=== PATIENT | male | born 1955 | race Caucasian/White ===

== ENCOUNTER 2017-09-01 21:00 | Emergency (ER) | payer MEDICAID, SELFPAY ==
[2017-09-01 21:10] VITALS: BP 186/89; PULSE 79; RESP 18; TEMP 36.2; O2SAT 98; BMI 23.6
--- NOTE | 2017-09-01 22:10 | ED.DCSUM_ITS ---
- ER Visit Summary Date of Service: 09/01/17 Chief Complaint: Right ear decreased hearing History of Present Illness: The patient is a 61 M who states for the past week he has had decreased hearing in his right ear. Now he states he can barely hear anything at all. He thinks there may be some cerumen in his ear. Physical Examination: Afebrile vital signs are stable There is a large hard cerumen impaction Emergency Department Course and Treatment: Water irrigation was used to remove the impaction. Tympanic membrane was intact post removal. There is no erythema or swelling of the ear canal. Supportive care at home. He was advised on debrox Impression: \1. Cerumen impaction right ear 2. Impaction removal by physician This note was generated with [employer] dictation software. It may contain incorrect words, spelling, and punctuation that were not noted in review of the chart prior to signing ED Disposition - Plan for ED Patient: Disposition: Home or Assisted Living Chief Complaint: Ear Problem Instructions: ED Cerumen Impaction Treated Referrals: Vera Lucas MD [Primary Care Provider] - As Needed
[2017-09-01 22:17] VITALS: BP 138/59; PULSE 76; RESP 15; O2SAT 96
== END 2017-09-01 22:17 | disposition home or self-care (01) ==
LOC: ED 22:12
PROVIDERS: Emergency Provider Emergency Medicine; Family Provider Internal Medicine; PCP Internal Medicine
DX: H61.21 Impacted cerumen, right ear (principal)
CPT/HCPCS: 99282

== ENCOUNTER 2017-11-24 15:01 | Emergency (ER) | payer MEDICAID, SELFPAY ==
[2017-11-24 15:01] VITALS: BP 154/90; PULSE 75; RESP 14; TEMP 36.8; O2SAT 98; BMI 24.9
--- NOTE | 2017-11-24 15:05 | RAD_ITS ---
STUDY: X-RAY - LEFT FOOT CLINICAL: Male, 61 years old. Pain at the first metatarsophalangeal joint. TECHNIQUE: 3 view(s) of the foot. COMPARISON: None. FINDINGS: Small plantar spur. Normal visualized subtalar, talonavicular, calcaneocuboid, tarsal and tarsometatarsal articulations. Normal metatarsi. Normal metatarsophalangeal joint of the great toe. Normal tibial and fibular sesamoid bones. Normal interphalangeal joint of the great toe. Normal phalanges of the great toe. Normal second through fifth metatarsophalangeal joints. Normal interphalangeal joints and phalanges of the lesser toes. Vascular calcification. RAD/Foot min 3 Views IMPRESSION: Small plantar spur. Vascular calcification. Electronically Signed: Joseph Denton MD at 15:43 EDT Tel [phone], Service support ,
[2017-11-24 15:51] LABS: Bedside Glucose 310 mg/dL (70-110)
--- NOTE | 2017-11-24 16:12 | ED.DCSUM_ITS ---
- ER Visit Summary Date of Service: 11/24/17 Chief Complaint: Left great toe pain History of Present Illness: The patient is a 61 M increasing left toe pain since yesterday. No trauma. History diabetes. No drainage. No fevers. No history of similar. Has not looked at his foot since the pain. Does not see podiatry. Physical Examination: General: Alert and oriented ?3, no acute distress HEENT: Normocephalic, atraumatic. Moist mucosa membranes Neck: supple, nontender. Cardiovascular: Regular rate and rhythm, no murmurs Respiratory: Normal breath sounds, symmetric, no distress Abdomen: Soft, nontender, nondistended Extremities: no edema, pulses intact ?4. Left lower extremity: Foot with no erythema. There is chronic fungus to all 5 toes, left great toe being thickened with valgus deviation. There is no erythema or drainage. Right lower extremity: Foot with no erythema. Similar chronic fungal toes. Decreased thickening of the great toe, nontender to palpation. No drainage. Neuro: no focal neurological deficits. Test Results: Left foot x-ray: Small bony spur. No fracture dislocation. BGT: 310 Emergency Department Course and Treatment: Nursing protocol obtain x-rays notes small spur. BG T3 10. Patient insulin-dependent diabetic for years. No nausea or vomiting. Exam of the foot concerns for fungal toes with thickening great toe could be causing symptoms. There is no signs of infection. Due to being diabetic, I will refer him to podiatry for outpatient evaluation and management. He is given Tylenol for symptom control. Treatment Plan: [] Disposition: Discharge Impression: 1.Onychomycosis of toes 2. Elevated blood glucose with history of diabetes This note was generated with [employer] dictation software. It may contain incorrect words, spelling, and punctuation that were not noted in review of the chart prior to signing ED Disposition - Plan for ED Patient: Disposition: Home or Assisted Living Chief Complaint: Lower Extremity Injury Diagnosis: Onychomycosis of left great toe Instructions: Understanding Thickened Nails Referrals: Vera Lucas MD [Primary Care Provider] - Robin Jackson DPM [STAFF PHYSICIAN] - 3-5 Days
== END 2017-11-24 17:00 | disposition home or self-care (01) ==
LOC: ED 16:20
PROVIDERS: Emergency Provider Emergency Medicine; Family Provider Internal Medicine; PCP Internal Medicine
DX: B35.1 Tinea unguium (principal); E10.65 Type 1 diabetes mellitus with hyperglycemia; M77.32 Calcaneal spur, left foot; Z79.82 Long term (current) use of aspirin; Z79.4 Long term (current) use of insulin; Z79.899 Other long term (current) drug therapy
CPT/HCPCS: 73630; 82962; 99281

== ENCOUNTER 2017-12-25 21:46 | Emergency (ER) | payer MEDICAID, SELFPAY ==
[2017-12-25 21:46] VITALS: BP 157/73; PULSE 73; RESP 16; TEMP 36.8; O2SAT 97; BMI 24.5
[2017-12-25 21:55] LABS: Bedside Glucose 216 mg/dL (70-110)
[2017-12-25 22:00] VITALS: O2SAT 100
--- NOTE | 2017-12-25 22:00 | EKG12_ITS ---
Test Reason : Blood Pressure : / mmHG Vent. Rate : 067 BPM Atrial Rate : 067 BPM P-R Int : 198 ms QRS Dur : 098 ms QT Int : 450 ms P-R-T Axes : 028 -19 008 degrees QTc Int : 475 ms Normal sinus rhythm Voltage criteria for left ventricular hypertrophy Abnormal ECG Confirmed by ANNALISA VILLA, NINI ([id number]), online editor DENNIS STOKES ([id number]) on 12/29/2017 10:26:19 AM Referred By: EVER Confirmed By:NINI FANG MD
--- NOTE | 2017-12-25 22:00 | RAD_ITS ---
STUDY: X-RAY CHEST REASON FOR EXAM: Male, 62 years old. Weakness and dizziness TECHNIQUE: A single frontal view of the chest was obtained. COMPARISON: June 23, 2017 FINDINGS: The lungs are adequately aerated. There are no focal airspace opacities. There is no demonstrated pleural abnormality. The cardiac silhouette is normal in size. The mediastinum and hilar regions are unremarkable. Normal visualized pulmonary arteries. Normal visualized aortic arch and descending thoracic aorta. There are diffuse degenerative changes of the visualized spine. The visualized ribs, clavicles, and shoulders are unremarkable. There is no demonstrated abnormality of the visualized upper abdomen. RAD/Chest 1 View (Portable) IMPRESSION: No acute cardiopulmonary abnormalities or changes. Electronically Signed: Santa Macario MD at 22:46 EDT Tel Direct: [phone], Service support ,
--- NOTE | 2017-12-25 22:05 | ED.RN ---
patient states he has chest pain and sob earlier today but does not have chest pain currently.
[2017-12-25 22:09] LABS: Absolute Lymphocyte Count 2.39 X10^3/ul (0.83-4.51); Absolute Neutrophil Count 6.7 X10^3/uL (2.0-7.7); Basophil# 0.03 X10^3/uL; Basophil% 0.3 % (0-1); Eosinophil# 0.15 X10^3/uL; Eosinophils% 1.5 % (0-5); Hematocrit 34.4 % (40-54); Hemoglobin 12.3 g/dl (13.0-16.5); Lymphocyte # 2.39 X10^3/ul (4.0); Lymphocyte % 23.2 % (19-41); Mean Corp Hgb Conc 35.8 g/gl (32-36); Mean Corpuscular Hgb 28.7 pg (27.0-32.0); Mean Corpuscular Volume 80.4 fL (80-94); Mean Platelet Vol. 9.9 fl (6.2-12.0); Monocyte# 0.91 X10^3/uL; Monocyte% 8.8 % (0-10); Neutrophil # 6.72 X10^3/uL (2.7-7.7); Neutrophil % 65.1 % (47-70); Platelet Count 250 K/mm3 (150-450); RBC Distribution Width CV 13.1 % (11.6-14.6); RBC Distribution Width SD 36.7 fl (35.1-43.9); Red Blood Count 4.28 M/mm3 (4.6-6.2); White Blood Count 10.3 K/mm3 (4.4-11.0)
[2017-12-25 22:13] LABS: POSITIVE COUNT NO; POSITIVE DIFFERENTIAL NO; POSITIVE MORPHOLOGY NO
[2017-12-25] MEDS: Aspirin 81 MG TAB.CHEW 324 MG PO (22:14)
[2017-12-25 22:15] VITALS: BP 160/78; BP 162/70; BP 174/78; PULSE 69; PULSE 71; PULSE 79
[2017-12-25] MEDS: 0.9% Normal Saline 1,000 ML 999 ML IV (22:19)
[2017-12-25 22:28] LABS: Anion Gap 8 (5-15); BUN 34 mg/dL (7-18); BUN/Creat Ratio 23.6 RATIO (10-20); Calcium,Total 9.5 mg/dL (8.5-10.1); Chloride 102 mmol/L (98-107); Creatinine, Serum 1.44 mg/dL (0.70-1.30); EST Glomerular Filtration Rate 53 mL/min (>60); Est Glom Filt Rate - Afr Amer 64 mL/min (>60); Estimated Creatinine Clearance 54.55 ml/min; Glucose 213 mg/dL (74-106); Potassium 4.1 mmol/L (3.5-5.1); Sodium Level 139 mmol/L (136-145)
--- NOTE | 2017-12-25 22:37 | ED.DCSUM_ITS ---
- ER Visit Summary Date of Service: 12/25/17 Chief Complaint: I do not feel good History of Present Illness: The patient is a 62 M who presents with chief complaint of I do not feel good. He states that earlier today he felt dizzy and lightheaded as if he may pass out. He also complains of just generally not feeling well. Earlier today he had an episode of left-sided chest pain and shortness of breath that lasted about 20 minutes. This was sharp. He denies any nausea vomiting fever cough. He denies recent illness. He states he felt well before today. No history of prior similar symptoms. No history of coronary disease. Physical Examination: Afebrile vitals stable Moist mucous membranes Heart regular rate and rhythm Lungs are clear Abdomen soft Extremities nontender, 2+ radial pulses Alert Test Results: EKG shows normal sinus rhythm at a rate of 70. Laboratory studies notable for hemoglobin 12.3, creatinine 1.44. Orthostatic vital signs negative. Troponin negative. Chest x-ray on my review shows no acute process. Emergency Department Course and Treatment: Patient's MARGARET score is 2, patient's heart score is 4. I am concerned given his episode of chest pain and shortness of breath with multiple cardiac risk factors. I did feel that he should be admitted for observation, repeat EKG is serial enzymes and likely stress testing. Treatment Plan: [] Disposition: Admit Impression: Chest pain This note was generated with [employer] dictation software. It may contain incorrect words, spelling, and punctuation that were not noted in review of the chart prior to signing ED Disposition - Plan for ED Patient: Chief Complaint: General Illness Referrals: Vera Lucas MD [Primary Care Provider] -
[2017-12-25 22:38] VITALS: BP 164/70; PULSE 69; RESP 18; TEMP 36.8; O2SAT 98
--- NOTE | 2017-12-25 23:00 | EKG12_ITS ---
Test Reason : Blood Pressure : / mmHG Vent. Rate : 070 BPM Atrial Rate : 070 BPM P-R Int : 184 ms QRS Dur : 092 ms QT Int : 424 ms P-R-T Axes : 042 -15 025 degrees QTc Int : 457 ms Normal sinus rhythm Voltage criteria for left ventricular hypertrophy Abnormal ECG Confirmed by ANNALISA VILLA, NINI ([id number]), supervising editor news reel DENNIS STOKES ([id number]) on 12/29/2017 10:26:34 AM Referred By: AILYN Confirmed By:NINI FANG MD
--- NOTE | 2017-12-25 23:19 | ED.DEP ---
ED Disposition - Plan for ED Patient: Chief Complaint: General Illness Instructions: ED Chest Pain Atypical Unkn Cause, ED Dehydration Referrals: Vera Lucas MD [Primary Care Provider] -
[2017-12-26 00:08] VITALS: BP 172/78; PULSE 67; RESP 16; O2SAT 100
[2017-12-26 00:42] VITALS: BP 152/71; PULSE 71; RESP 16; O2SAT 100
== END 2017-12-26 00:46 | disposition home or self-care (01) ==
PROVIDERS: Emergency Medicine; Emergency Provider Emergency Medicine; Family Provider Internal Medicine; PCP Internal Medicine
DX: R07.9 Chest pain, unspecified (principal); R06.00 Dyspnea, unspecified; R55 Syncope and collapse; I10 Essential (primary) hypertension; E11.9 Type 2 diabetes mellitus without complications; Z79.82 Long term (current) use of aspirin; Z79.4 Long term (current) use of insulin; Z79.899 Other long term (current) drug therapy
CPT/HCPCS: 71045; 80048; 82962; 84484; 85025; 93005; 96360; 99285; J7030; A4216

== ENCOUNTER 2018-01-10 14:56 | Emergency (ER) | payer MEDICAID, SELFPAY ==
--- NOTE | 2018-01-10 14:56 | DT_ITS ---
This patient was seen during an EMR downtime January 08, 2018 - January 15, 2018. This patient may have a combination of paper and electronic documentation or all paper documentation. All documentation is viewable within the e-chart portion of [facility] for each patient visit.
--- NOTE | 2018-01-10 16:03 | CT_ITS ---
STUDY: CT ABDOMEN AND PELVIS WITHOUT CONTRAST REASON FOR EXAM: Male, 62 years old. Mid abdominal pain. RADIATION DOSAGE (If Supplied By Facility): CTDIvol = ( 9.12 ) mGy, DLP = ( 487.56 ) mGycm TECHNIQUE: Transaxial images were obtained from the dome of the diaphragm to the symphysis pubis without oral contrast, and without intravenous contrast. Sagittal and coronal images were reconstructed. Individualized dose optimization techniques were used for this CT. COMPARISON: CT of the abdomen and pelvis dated May 11, 2017. FINDINGS: There is mild bilateral basilar dependent atelectasis. There is mild elevation of left hemidiaphragm. No pleural effusions are visualized. The visualized portions of the heart are within normal limits. Normal liver. Normal gallbladder and extrahepatic biliary system. Normal spleen. There is diffuse atrophy of the pancreas. Normal bilateral adrenal glands. Normal right kidney. There is a small cyst arising from lower pole left kidney measuring 2.2 cm in greatest dimension. This has attenuation of approximately 10.9 Hounsfield units. There are are parenchymal calcifications in the lower pole left kidney measuring about 2 mm in size. Left kidney has a normal appearance otherwise without evidence for hydronephrosis, hydroureter or radiopaque ureteral calculus. Normal visualized stomach. There is no evidence for dilated bowel, ascites or pneumoperitoneum. Small bowel has a grossly normal unenhanced appearance. Stool is visible throughout the colon with scattered colonic diverticula. There is non-visualization of the appendix. There is diffuse atherosclerotic calcification of the abdominal aorta, without a demonstrated aneurysm. Normal inferior vena cava. Normal retroperitoneum. Urinary bladder wall is abnormally thickened measuring approximately 7.3 mm in greatest dimension. Normal visualized prostate gland. Normal abdominal wall. Normal osseous structures. CT/Abdomen/Pelvis without Cont IMPRESSION: 1. No CT evidence of acute intra-abdominal disease. 2. Left-sided renal cyst and nonobstructing calculi. Electronically Signed: Christine Huang MD at 6:30 EDT , Service support ,
[2018-01-13 08:10] LABS: AST(SGOT) 15 U/L (15-37); Albumin, Serum 3.6 g/dL (3.2-5.0); BUN 40 mg/dL (7-18); BUN/Creat Ratio 34.2 RATIO (10-20); Calcium,Total 8.5 mg/dL (8.5-10.1); Creatinine, Serum 1.17 mg/dL (0.70-1.30); EST Glomerular Filtration Rate 68 mL/min (>60); Est Glom Filt Rate - Afr Amer 82 mL/min (>60); Globulin 3.5 g/dL (2.2-4.2); Glucose 327 mg/dL (74-106); Lipase 101 U/L (73-393); Protein, Total 7.1 g/dL (6.4-8.2)
[2018-01-13 08:11] LABS: Alanine Aminotransfer ALT/SGPT 31 U/L (16-61); Alkaline Phosphatase 123 U/L (45-117); Anion Gap 9 (5-15); Bilirubin, Direct 0.13 mg/dL (0.00-0.30); Chloride 102 mmol/L (98-107); Potassium 4.4 mmol/L (3.5-5.1); Sodium Level 140 mmol/L (136-145)
[2018-01-13 09:53] LABS: Hematocrit 37.6 % (40-54); Mean Corp Hgb Conc 34.6 g/gl (32-36); Mean Corpuscular Hgb 28.3 pg (27.0-32.0); Mean Corpuscular Volume 81.7 fL (80-94); White Blood Count 7.1 K/mm3 (4.4-11.0)
[2018-01-13 09:54] LABS: Basophil% 0.1 % (0-1); Differential Indicated SCAN CRITERIA MET; Eosinophils% 0.7 % (0-5); Mean Platelet Vol. 9.8 fl (6.2-12.0); Monocyte% 4.6 % (0-10); Neutrophil % 87.2 % (47-70); POSITIVE COUNT NO; POSITIVE DIFFERENTIAL YES; POSITIVE MORPHOLOGY NO; Platelet Count 208 K/mm3 (150-450); RBC Distribution Width CV 13.4 % (11.6-14.6); RBC Distribution Width SD 39.8 fl (35.1-43.9)
[2018-01-13 09:55] LABS: Absolute Neutrophil Count 6.2 X10^3/uL (2.0-7.7); Basophil# 0.01 X10^3/uL; Eosinophil# 0.05 X10^3/uL; Monocyte# 0.33 X10^3/uL; Neutrophil # 6.22 X10^3/uL (2.7-7.7)
[2018-01-13 09:56] LABS: Differential Comment SCAN
== END 2018-01-10 19:55 | disposition home or self-care (01) ==
LOC: ED 01-11 14:35
PROVIDERS: Emergency Provider Emergency Medicine; Family Provider Internal Medicine; PCP Internal Medicine
DX: R11.2 Nausea with vomiting, unspecified (principal); R10.9 Unspecified abdominal pain; E11.22 Type 2 diabetes mellitus with diabetic chronic kidney disease; N18.9 Chronic kidney disease, unspecified; Z79.84 Long term (current) use of oral hypoglycemic drugs
CPT/HCPCS: 74176; 80048; 80076; 83690; 85025; 96361; 96374; 99283; J7040; A4216; J2405

== ENCOUNTER 2018-03-17 19:30 | Emergency (ER) | payer MEDICAID, SELFPAY ==
[2018-03-17 19:30] VITALS: BP 174/87; PULSE 76; RESP 18; TEMP 37; O2SAT 97; BMI 25.7
--- NOTE | 2018-03-17 19:41 | ED.VISSUMM ---
- ER Visit Summary Date of Service: 03/17/18 Chief Complaint: Dental pain History of Present Illness: The patient is a 62 M with right upper dental pain that started earlier today. Is currently weekend and he was unable to call his dentist. He states the tooth is broken and became painful today. Physical Examination: Vital signs significant for blood pressure 174/87, otherwise normal. Patient sitting upright in bed no acute distress. Head neck examination was no facial edema or erythema. TMs are clear bilaterally. Intraoral examination reveals right maxillary second premolar to be broken and tender to palpation. There is minimal surrounding gum edema. There is no trismus. There is no submandibular fullness. There is no cervical lymphadenopathy. Heart is regular rate and rhythm without murmur. Test Results: [] Emergency Department Course and Treatment: Patient is treated with Pen-Vee K and Tylenol. He declines anything stronger for pain. He will try to call his dentist on Monday. He is given a dental referral list if that dentist is no longer available. Treatment Plan: [] Disposition: Discharge Impression: Odontalgia This note was generated with [employer] dictation software. It may contain incorrect words, spelling, and punctuation that were not noted in review of the chart prior to signing ED Disposition - Plan for ED Patient: Chief Complaint: Dental Referrals: Vrea Lucas MD [Primary Care Provider] -
--- NOTE | 2018-03-17 19:43 | ED.DEP ---
ED Disposition - Plan for ED Patient: Disposition: Home or Assisted Living Chief Complaint: Dental Instructions: ED Tooth Pain Prescriptions: Penicillin V Potassium 500 mg PO 4X/DAY #40 tablet Additional Instructions: Call your dentist on Monday for appointment.
[2018-03-17] MEDS: Penicillin Vk 250 MG Tablet 500 MG PO (19:56)
[2018-03-17] MEDS: Acetaminophen 325 MG Tablet 650 MG PO (19:56)
== END 2018-03-17 20:00 | disposition home or self-care (01) ==
LOC: ED 19:47
PROVIDERS: Emergency Provider Emergency Medicine; Family Provider Internal Medicine; PCP Internal Medicine
DX: K08.89 Other specified disorders of teeth and supporting structures (principal); S02.5XXA Fracture of tooth (traumatic), initial encounter for closed fracture; X58.XXXA Exposure to other specified factors, initial encounter; Y93.9 Activity, unspecified; Y92.9 Unspecified place or not applicable; Y99.9 Unspecified external cause status; E11.9 Type 2 diabetes mellitus without complications; I10 Essential (primary) hypertension; Z79.82 Long term (current) use of aspirin; Z79.4 Long term (current) use of insulin; Z79.899 Other long term (current) drug therapy; Z87.891 Personal history of nicotine dependence
CPT/HCPCS: 99283

== ENCOUNTER 2018-05-06 12:03 | Emergency (ER) | payer MEDICAID, SELFPAY ==
[2018-05-06 12:04] VITALS: BP 199/97; PULSE 87; RESP 19; TEMP 37.1; O2SAT 98; BMI 24.3
--- NOTE | 2018-05-06 12:14 | EKG12_ITS ---
Test Reason : GENERAL ILLNESS Blood Pressure : / mmHG Vent. Rate : 080 BPM Atrial Rate : 080 BPM P-R Int : 184 ms QRS Dur : 092 ms QT Int : 402 ms P-R-T Axes : 034 -20 027 degrees QTc Int : 463 ms Normal sinus rhythm Voltage criteria for left ventricular hypertrophy Nonspecific T wave abnormality Prolonged QT Abnormal ECG Confirmed by BOUCHRA VILLA, FESTUS ([id number]), editor at large DENNIS STOKES ([id number]) on 05/08/2018 2:45:00 PM Referred By: ALPA Confirmed By:FESTUS SHOOK MD
--- NOTE | 2018-05-06 12:15 | ED.VISSUMM ---
- ER Visit Summary Date of Service: 05/06/18 Chief Complaint: I just do not feel right History of Present Illness: The patient is a 62 M with a history of type 1 insulin-dependent diabetes. States that he does not feel right after getting his flu shot yesterday. He has mild nausea. Denies vomiting or diarrhea. No fever. No headache, chest pain, shortness of breath or abdominal pain. No dysuria. No melena. Physical Examination: Middle-aged male no acute distress. Vital signs are stable and afebrile. His initial blood pressure is 199/97. Afebrile with a pulse ox of 90% on room air no hypoxia. HEENT exam atraumatic. Pupils round reactive light. No facial droop. Normal speech. Neck nontender. No lymphadenopathy. Lungs clear to auscultation bilaterally. Heart regular rhythm no murmur rate about 90. Abdomen soft and nontender. Normal bowel sounds no peritoneal signs. Both the right upper right lower quadrants are unremarkable. He is moving all 4 extremities. They are neurovascularly intact. Normal victims advocate clerk/specialist strength bilaterally. Normal dorsi and plantar flexion. Nontender. No edema. Neurologically is awake and alert with no focal motor deficits. Back nontender. Skin unremarkable. Test Results: EKG shows sinus rhythm rate 80 with no acute. CBC showed a white count of 6.8. Hemoglobin of 12. No bands. Electrolytes unremarkable. Gap of 6. Creatinine is 0.8. Glucose of 153. Emergency Department Course and Treatment: I suspect the patient's symptoms may be secondary to malaise after his flu shot yesterday. Due to his diabetes I will do screening labs and EKG. His exam is unremarkable. Treatment Plan: Repeat exam the patient is doing well at 0 115. States he is feeling better. When I discussed the people often have malaise after having influenza immunization. But otherwise his exam is normal. Disposition: Discharge Impression: Malaise status post influenza immunization History of insulin-dependent diabetes This note was generated with [employer] dictation software. It may contain incorrect words, spelling, and punctuation that were not noted in review of the chart prior to signing ED Disposition - Plan for ED Patient: Chief Complaint: General Illness Referrals: Vera Lucas MD [Primary Care Provider] -
--- NOTE | 2018-05-06 12:18 | ED.DCSUM_ITS ---
- ER Visit Summary Date of Service: 05/06/18 Chief Complaint: I just do not feel right History of Present Illness: The patient is a 62 M with a history of type 1 insulin-dependent diabetes. States that he does not feel right after getting his flu shot yesterday. He has mild nausea. Denies vomiting or diarrhea. No fever. No headache, chest pain, shortness of breath or abdominal pain. No dysuria. No melena. Physical Examination: Middle-aged male no acute distress. Vital signs are stable and afebrile. His initial blood pressure is 199/97. Afebrile with a pulse ox of 90% on room air no hypoxia. HEENT exam atraumatic. Pupils round reactive light. No facial droop. Normal speech. Neck nontender. No lymphadenopathy. Lungs clear to auscultation bilaterally. Heart regular rhythm no murmur rate about 90. Abdomen soft and nontender. Normal bowel sounds no peritoneal signs. Both the right upper right lower quadrants are unremarkable. He is moving all 4 extremities. They are neurovascularly intact. Normal chief controller center strength bilaterally. Normal dorsi and plantar flexion. Nontender. No edema. Neurologically is awake and alert with no focal motor deficits. Back nontender. Skin unremarkable. Test Results: EKG shows sinus rhythm rate 80 with no acute. CBC showed a white count of 6.8. Hemoglobin of 12. No bands. Electrolytes unremarkable. Gap of 6. Creatinine is 0.8. Glucose of 153. Emergency Department Course and Treatment: I suspect the patient's symptoms may be secondary to malaise after his flu shot yesterday. Due to his diabetes I will do screening labs and EKG. His exam is unremarkable. Treatment Plan: Repeat exam the patient is doing well at 0 115. States he is feeling better. When I discussed the people often have malaise after having influenza immunization. But otherwise his exam is normal. Disposition: Discharge Impression: Malaise status post influenza immunization History of insulin-dependent diabetes This note was generated with [employer] dictation software. It may contain incorrect words, spelling, and punctuation that were not noted in review of the chart prior to signing ED Disposition - Plan for ED Patient: Chief Complaint: General Illness Referrals: Vera Lucas MD [Primary Care Provider] -
[2018-05-06 12:30] LABS: Absolute Lymphocyte Count 1.29 X10^3/ul (0.83-4.51); Absolute Neutrophil Count 4.8 X10^3/uL (2.0-7.7); Basophil# 0.01 X10^3/uL; Basophil% 0.1 % (0-1); Eosinophil# 0.12 X10^3/uL; Eosinophils% 1.8 % (0-5); Hematocrit 36.2 % (40-54); Hemoglobin 12.4 g/dl (13.0-16.5); Lymphocyte # 1.29 X10^3/ul (4.0); Mean Corp Hgb Conc 34.3 g/gl (32-36); Mean Corpuscular Hgb 27.9 pg (27.0-32.0); Mean Corpuscular Volume 81.3 fL (80-94); Mean Platelet Vol. 9.1 fl (6.2-12.0); Monocyte# 0.56 X10^3/uL; Monocyte% 8.3 % (0-10); Neutrophil # 4.79 X10^3/uL (2.7-7.7); Neutrophil % 70.7 % (47-70); POSITIVE COUNT NO; POSITIVE DIFFERENTIAL NO; POSITIVE MORPHOLOGY NO; Platelet Count 183 K/mm3 (150-450); RBC Distribution Width SD 38.4 fl (35.1-43.9); Red Blood Count 4.45 M/mm3 (4.6-6.2); White Blood Count 6.8 K/mm3 (4.4-11.0)
[2018-05-06 12:42] LABS: Anion Gap 6 (5-15); BUN 15 mg/dL (7-18); BUN/Creat Ratio 18.1 RATIO (10-20); Calcium,Total 8.7 mg/dL (8.5-10.1); Chloride 111 mmol/L (98-107); Creatinine, Serum 0.83 mg/dL (0.70-1.30); EST Glomerular Filtration Rate 101 mL/min (>60); Est Glom Filt Rate - Afr Amer 122 mL/min (>60); Estimated Creatinine Clearance 94.65 ml/min; Glucose 153 mg/dL (74-106); Potassium 3.8 mmol/L (3.5-5.1); Sodium Level 142 mmol/L (136-145)
[2018-05-06 13:04] VITALS: PULSE 81; RESP 16; O2SAT 99
--- NOTE | 2018-05-06 13:19 | ED.DEP ---
ED Disposition - Plan for ED Patient: Disposition: Home or Assisted Living Chief Complaint: General Illness Referrals: Vera Lucas MD [Primary Care Provider] - 1 Week if not improving Additional Instructions: He started start feeling better in the next 2-3 days. Often people have these type of symptoms after having flu immunization. Plan fluids and rest. Tylenol as needed.
[2018-05-06 13:24] VITALS: BP 175/83; PULSE 76; RESP 18; O2SAT 99
== END 2018-05-06 13:25 | disposition home or self-care (01) ==
PROVIDERS: Emergency Provider Emergency Medicine; Family Provider Internal Medicine; PCP Internal Medicine
DX: T88.1XXA Other complications following immunization, not elsewhere classified, initial encounter (principal); R53.81 Other malaise; R11.0 Nausea; E10.9 Type 1 diabetes mellitus without complications; Z79.82 Long term (current) use of aspirin; Z79.4 Long term (current) use of insulin; Z79.899 Other long term (current) drug therapy; Z87.442 Personal history of urinary calculi
CPT/HCPCS: 80048; 85025; 93005; 99284; A4216

== ENCOUNTER 2018-08-18 13:44 | Emergency (ER) | payer MEDICAID, SELFPAY ==
[2018-08-18 13:46] VITALS: BP 167/84; PULSE 71; RESP 18; TEMP 37.1; O2SAT 99; BMI 25.1
--- NOTE | 2018-08-18 14:11 | ED.VISSUMM ---
- ER Visit Summary Date of Service: 08/18/18 Chief Complaint: Right ear hearing loss History of Present Illness: The patient is a 62 M. Right ear for the past 3 days. No trauma. No drainage. He does admit to ringing. States has yearly symptoms. Does not use Q-tips. Has not seen a specialist. History of diabetes. Denies pain. Physical Examination: General: Alert and oriented ?3, no acute distress HEENT: Normocephalic, atraumatic. Moist mucosa membranes. Bilateral cerumen impaction. No swelling or drainage. No tragal tenderness bilaterally. Neck: supple, nontender. Cardiovascular: Regular rate and rhythm, no murmurs Respiratory: Normal breath sounds, symmetric, no distress Abdomen: Soft, nontender, nondistended Extremities: Nontender, no edema, pulses intact ?4 Neuro: no focal neurological deficits. Test Results: [] Emergency Department Course and Treatment: Patient with bilateral cerumen impaction. Discussed likely causing his hearing loss, he has symptoms yearly. Is not seeing a specialist. Discussed risks and flushing the ED with membrane rupture. He understands and wishes to pursue. Debrox ordered with flushing by nursing. After flushing evaluation both ears, TMs were intact. He did have improved hearing. With current symptoms yearly, he will be given follow-up with ENT for outpatient reevaluation. Treatment Plan: [] Disposition: Discharge Impression: 1. Bilateral cerumen impaction 2. Right hearing loss This note was generated with [employer] dictation software. It may contain incorrect words, spelling, and punctuation that were not noted in review of the chart prior to signing ED Disposition - Plan for ED Patient: Disposition: Home or Assisted Living Chief Complaint: Ear Problem Diagnosis: Bilateral impacted cerumen, Right-sided hearing loss Instructions: ED Cerumen Impaction Treated, Understanding Hearing Loss Referrals: Vera Lucas MD [Primary Care Provider] - David Ontiveros MD [STAFF PHYSICIAN] - 5-7 Days
[2018-08-18] MEDS: Carbamide Peroxide 15 ML Bottle 5 DRP OTIC (14:27)
[2018-08-18 15:15] VITALS: BP 175/79; PULSE 71; RESP 16; O2SAT 94
== END 2018-08-18 15:30 | disposition home or self-care (01) ==
PROVIDERS: Emergency Provider Emergency Medicine; Family Provider Internal Medicine; PCP Internal Medicine
DX: H61.23 Impacted cerumen, bilateral (principal); E11.9 Type 2 diabetes mellitus without complications; Z79.82 Long term (current) use of aspirin; Z79.4 Long term (current) use of insulin; Z79.899 Other long term (current) drug therapy
CPT/HCPCS: 99283

== ENCOUNTER 2018-09-04 16:22 | Emergency (ER) | payer MEDICAID, SELFPAY ==
[2018-09-04 16:23] VITALS: BP 199/97; PULSE 79; RESP 16; TEMP 36.6; O2SAT 98; BMI 25.4
--- NOTE | 2018-09-04 16:45 | RAD_ITS ---
STUDY: X-RAY - RIGHT HUMERUS REASON FOR EXAM: Male, 62 years old. Fall on ice, pain. TECHNIQUE: 3 view(s) of the humerus. COMPARISON: None. FINDINGS: Hemithoracic structures within the field of view appear intact. Shoulder girdle appears intact. Humerus intact. The elbow joint appears intact without effusion. Soft tissues unremarkable. RAD/Humerus min 2 Views IMPRESSION: Normal x-ray examination of the humerus. Electronically Signed: Danny Salas MD at 17:07 EST Tel , Service support ,
--- NOTE | 2018-09-04 17:21 | CT_ITS ---
STUDY: CT BRAIN WITHOUT CONTRAST REASON FOR EXAM: Male, 62 years old. Fall. Hit right side of head. RADIATION DOSAGE (If Supplied By Facility): CTDIvol = ( 44.99 ) mGy, DLP = ( 796.11 ) mGycm TECHNIQUE: Transaxial CT imaging of the brain was performed without administration of intravenous contrast material. Individualized dose optimization techniques were used for this CT. COMPARISON: 07/09/2016 FINDINGS: There are stable bilateral subcentimeter lacunar infarcts in the basal ganglia and thalami. There is no acute bleed or infarct. There are stable chronic ischemic and atrophic changes. The ventricles are normal in configuration. There is no hydrocephalus. The visualized paranasal sinuses are clear. The mastoid air cells are well aerated. There is no skull fracture. CT/Brain/Head without Contrast IMPRESSION: Stable old bilateral subcentimeter lacunar infarcts in the basal ganglia and thalami. Stable chronic ischemic and atrophic changes. No acute intracranial abnormality. Electronically Signed: Chon Dixon, at 18:23 EST Tel , Service support ,
[2018-09-04 17:23] VITALS: BP 188/85; PULSE 75; RESP 17; O2SAT 98
--- NOTE | 2018-09-04 17:24 | ED.DCSUM_ITS ---
- ER Visit Summary Date of Service: 09/04/18 Chief Complaint: [Fall] History of Present Illness: The patient is a 62 M presents to the emergency department after mechanical fall. Patient states he was walking outdoors. He slipped on ice. He fell, landing on his right shoulder and struck his head. He thinks he lost consciousness. He states that since then, he had increasing pain in the right shoulder. He is not on anticoagulants. The patient is an insulin-dependent diabetic. He denies any fevers, chills, or other systemic symptoms. He denies any change in gait. He has had not had chest pain or shortness of breath. Physical Examination: Vital signs reviewed General: Well-nourished, well-developed Head: Normocephalic, atraumatic Eyes: Pupils equal and reactive, extraocular muscles intact Neck, supple, no lymphadenopathy Heart: Regular rate and rhythm Respiratory: No distress, clear bilaterally Abdomen: Soft, nontender, nondistended, no peritoneal signs Back: Nontender Extremities: Tender over the right shoulder with limited range of motion secondary to pain. No gross laxity. Normal pulses. no edema, no cords Skin: Normal color no rash Neuro: Alert and oriented, no focal or lateralizing deficits Test Results: [] Emergency Department Course and Treatment: The patient presents after mechanical fall. He did strike his head and thinks he may have lost consciousness. I did obtain a head CT which was unremarkable. Patient also landed on his right shoulder. Triage had a obtained a humerus x-ray which is normal. I did obtain right shoulder x-rays were also normal. Patient given Tylenol with improvement of symptoms. Be placed in a sling for comfort. He was counseled to take his arm out and work on his range of motion. He will be discharged home. Treatment Plan: [] Disposition: Discharge Impression: 1. Mechanical fall on ice 2. Concussion 3. Right shoulder contusion This note was generated with [employer] dictation software. It may contain incorrect words, spelling, and punctuation that were not noted in review of the chart prior to signing ED Disposition - Plan for ED Patient: Chief Complaint: Fall Instructions: ED Concussion, ED Sprain Shoulder Referrals: Vera Lucas MD [Primary Care Provider] -
[2018-09-04] MEDS: Acetaminophen 500 MG Tablet 1000 MG PO (17:25)
--- NOTE | 2018-09-04 17:29 | RAD_ITS ---
STUDY: X-RAY - RIGHT SHOULDER REASON FOR EXAM: Male, 62 years old. Fall, right posterior shoulder pain. TECHNIQUE: 4 view(s) of the shoulder. COMPARISON: None. FINDINGS: Mild chronic acromioclavicular joint arthrosis. Intact clavicle. Normal glenohumeral articulation. Proximal humerus intact. Scapula intact. Evaluated portions of the thoracic cage appear intact. Right lung clear. RAD/Shoulder min 2 Views IMPRESSION: No radiographic evidence of acute injury. Electronically Signed: Danny Salas MD at 17:45 EST Tel , Service support ,
[2018-09-04 18:25] VITALS: BP 175/81; PULSE 73; RESP 15; O2SAT 96
[2018-09-04 18:40] VITALS: BP 175/81; PULSE 76; RESP 15; O2SAT 97
--- NOTE | 2018-09-04 18:40 | ED.RN ---
PT GIVEN WRITTEN AND VERBAL DISCHARGE INSTRUCTIONS. PT EDUCATED ON USE OF SLING. PT BP ELEVATE, REPORTS HE IS GOING TO TAKE HIS MEDICATION WHEN HE RETURNS HOME. PT EDUCATED TO RETURN TO ED FOR ANY NEW OR WORSENED SX. PT AMBULATES OUT OF DEPT BY SELF.
== END 2018-09-04 18:43 | disposition home or self-care (01) ==
LOC: ED 17:57
PROVIDERS: Emergency Provider Emergency Medicine; Family Provider Internal Medicine; PCP Internal Medicine
DX: S06.0X9A Concussion with loss of consciousness of unspecified duration, initial encounter (principal); S40.011A Contusion of right shoulder, initial encounter; W00.0XXA Fall on same level due to ice and snow, initial encounter; Y93.01 Activity, walking, marching and hiking; Y92.9 Unspecified place or not applicable; Y99.9 Unspecified external cause status; E11.9 Type 2 diabetes mellitus without complications; Z79.82 Long term (current) use of aspirin; Z79.4 Long term (current) use of insulin; Z79.899 Other long term (current) drug therapy
CPT/HCPCS: 70450; 73030; 73060; 99283

== ENCOUNTER 2018-09-13 18:40 | Emergency (ER) | payer MEDICAID, SELFPAY ==
[2018-09-13 18:41] VITALS: BP 185/81; PULSE 76; RESP 18; TEMP 36.3; O2SAT 97; BMI 24.0
--- NOTE | 2018-09-13 21:17 | ED.DCSUM_ITS ---
- ER Visit Summary Date of Service: 09/13/18 Chief Complaint: Back injury History of Present Illness: The patient is a 62 M I injury while helping lift a refrigerator earlier this afternoon. No direct falls or injuries. No radicular symptoms. No loss of bowel or bladder control. Has had problems similar in the past. No medications taken. Reports has no prescriptions. Able to ambulate. Patient symptoms worse with movement and improved with sitting still. Physical Examination: General: Alert and oriented ?3, no acute distress HEENT: Normocephalic, atraumatic. Moist mucosa membranes Neck: supple, nontender. Cardiovascular: Regular rate and rhythm, no murmurs Respiratory: Normal breath sounds, symmetric, no distress Abdomen: Soft, nontender, nondistended Back: Tender palpation paraspinal lumbar. Straight leg test negative bilaterally. 2+ patellar reflex. Extremities: Nontender, no edema, pulses intact ?4 Neuro: no focal neurological deficits. Test Results: [] Emergency Department Course and Treatment: Discussed lumbar strain with the patient. He drove himself here. Started on Motrin. No history gastric ulcers or kidney injury. Continue Motrin as needed Valium at night. Follow-up with PCP. Treatment Plan: [] Disposition: Discharge Impression: 1. Acute lumbar strain This note was generated with [employer] dictation software. It may contain incorrect words, spelling, and punctuation that were not noted in review of the chart prior to signing ED Disposition - Plan for ED Patient: Disposition: Home or Assisted Living Diagnosis: Acute lumbar myofascial strain Instructions: ED Sprain Strain Lumbar Prescriptions: Diazepam [Valium] 5 mg PO QHS PRN PRN #10 tablet PRN Reason: back spasm Ibuprofen 600 mg PO 4X/DAY PRN #20 tablet PRN Reason: Pain Referrals: Vera Lucas MD [Primary Care Provider] - 3-5 Days
[2018-09-13 21:18] VITALS: RESP 16
[2018-09-13] MEDS: Ibuprofen 600 MG Tablet PO (21:22)
[2018-09-13 21:26] VITALS: RESP 16
== END 2018-09-13 21:27 | disposition home or self-care (01) ==
PROVIDERS: Emergency Provider Emergency Medicine; Family Provider Internal Medicine; PCP Internal Medicine
DX: S39.012A Strain of muscle, fascia and tendon of lower back, initial encounter (principal); X50.0XXA Overexertion from strenuous movement or load, initial encounter; Y93.9 Activity, unspecified; Y92.9 Unspecified place or not applicable; Y99.9 Unspecified external cause status; E11.9 Type 2 diabetes mellitus without complications; Z79.4 Long term (current) use of insulin; Z79.899 Other long term (current) drug therapy
CPT/HCPCS: 99283

== ENCOUNTER 2019-01-05 12:49 | Emergency (ER) | payer MEDICAID, SELFPAY ==
[2019-01-05 12:50] VITALS: BP 192/80; PULSE 72; RESP 19; TEMP 36.8; O2SAT 98; BMI 24.5
[2019-01-05 12:54] VITALS: O2SAT 98
[2019-01-05 13:06] LABS: Bedside Glucose 366 mg/dL (70-110)
--- NOTE | 2019-01-05 13:16 | CT_ITS ---
STUDY: CT BRAIN WITHOUT CONTRAST REASON FOR EXAM: Male, 63 years old. Fall with head injury RADIATION DOSAGE (If Supplied By Facility): CTDIvol = ( 44.99 ) mGy, DLP = ( 829.85 ) mGycm TECHNIQUE: Transaxial CT imaging of the brain was performed without administration of intravenous contrast material. Individualized dose optimization techniques were used for this CT. COMPARISON: 09/01/2018 FINDINGS: Normal soft tissue structures. Normal calvarium. There is moderate cerebral atrophy with widening of the extra-axial spaces and ventricular dilatation. There are areas of decreased attenuation within the white matter tracts of the supratentorial brain, consistent with microvascular disease changes. Normal basal ganglia and thalami. Normal brainstem. There is mild cerebellar atrophy. There is no intracranial hemorrhage. There are no findings of an acute ischemic infarction. Normal visualized paranasal sinuses. CT/Brain/Head without Contrast IMPRESSION: Chronic involutional changes of the brain. Electronically Signed: Doug Herron DO at 14:25 EDT Tel , Service support ,
--- NOTE | 2019-01-05 13:16 | EKG12_ITS ---
Test Reason : HEAD INJURY/FALL Blood Pressure : / mmHG Vent. Rate : 068 BPM Atrial Rate : 068 BPM P-R Int : 204 ms QRS Dur : 092 ms QT Int : 422 ms P-R-T Axes : 007 -18 -15 degrees QTc Int : 448 ms Normal sinus rhythm Voltage criteria for left ventricular hypertrophy Nonspecific T wave abnormality Abnormal ECG Confirmed by BOUCHRA VILLA, FESTUS ([id number]), scientific publications editor DENNIS STOKES ([id number]) on 01/07/2019 11:42:13 AM Referred By: KAMINI/MARTA Confirmed By:FESTUS SHOOK MD
--- NOTE | 2019-01-05 13:17 | RAD_ITS ---
STUDY: X-RAY - UNILATERAL RIBS ( LEFT ) WITH CHEST REASON FOR EXAM: Male, 63 years old. TECHNIQUE - RIBS: 4 view(s) of the ribs. TECHNIQUE - CHEST: Single frontal view of the chest. COMPARISON: None. FINDINGS - RIBS: Normal visualized ribs without a demonstrated fracture. FINDINGS - CHEST: The lungs are clear and expanded. There is no demonstrated pleural abnormality. Normal size heart. Normal mediastinum and merna. Normal visualized pulmonary arteries. Normal visualized aortic arch and descending thoracic aorta. Normal visualized thoracic spine. Normal visualized ribs, clavicles, and shoulders. There is no demonstrated abnormality of the visualized soft tissue structures of the upper abdomen. RAD/Ribs Uni Min 3V w/PA Chest IMPRESSION: RIBS: Normal x-ray examination of the ribs. CHEST: Normal x-ray examination of the chest. Electronically Signed: Doug Herron DO at 14:25 EDT Tel , Service support ,
--- NOTE | 2019-01-05 13:19 | ED.VISSUMM ---
- ER Visit Summary Date of Service: 01/05/19 Chief Complaint: Fall History of Present Illness: The patient is a 63 M who presents after a fall that occurred today. Patient states he was getting out of his vehicle when he fell. Patient is unsure if he tripped. Patient states he remembers trying to get out of his vehicle then remembers waking up on the ground. Patient states he has pain in his left chest and the right side of his head. Patient denies any visual changes. Patient admits to a headache. Patient states his chest pain is worse with breathing and palpation. Patient denies any nausea or vomiting. Patient denies any pain in his arms or legs. Physical Examination: Vital signs are stable except for an elevated blood pressure of 192/80. Patient is afebrile. Patient is in no acute distress. Cranial nerves II through XII are intact. Strength is 5/5 bilaterally upper and lower extremities. Skin is warm and dry. There is an abrasion over the left periorbital and cheek area. There is no active bleeding noted. Pupils are equal, round, and reactive to light bilaterally. Extraocular muscles are intact. Heart was regular rate and rhythm. Lungs are clear and equal bilaterally. Respiratory effort was limited secondary to pain. Abdomen is soft and nontender. Bowel sounds are normal. Test Results: CT scan of the brain was obtained. There is no acute intracranial abnormality. X-rays of the left ribs and chest were obtained. There is no acute rib fracture or acute cardiopulmonary process noted. These were interpreted by the radiologist and reviewed by myself. EKG showed normal sinus rhythm with a rate of 68. There is left ventricular hypertrophy noted. There are nonspecific changes which are unchanged compared to previous EKG dated 05/06/2018. CBC was essentially normal. Basic metabolic profile showed an elevated glucose of 398. PT with INR and PTT were normal. Urinalysis showed glucosuria but no signs of any urinary tract infection. Troponin was normal. Emergency Department Course and Treatment: Patient was given IV fluids and morphine. Patient felt better on reevaluation. Patient was given head injury instructions. Patient was given a prescription for a short course of Chemult for his rib pain. Patient was instructed to take 10-15 deep breaths every hour while awake to prevent atelectasis and pneumonia. Patient was instructed on signs and symptoms which should prompt return to the emergency department. Patient understood and was agreeable with the plan. All questions were answered. Disposition: Discharge home Impression: 1. Closed head injury 2. Chest wall contusion This note was generated with [employer] dictation software. It may contain incorrect words, spelling, and punctuation that were not noted in review of the chart prior to signing ED Disposition - Plan for ED Patient: Disposition: Home or Assisted Living Diagnosis: Closed head injury, Chest wall contusion Instructions: ED Head Injury Closed, ED Contusion Chest Wall Prescriptions: Hydrocodone Bitart/Apap 5-325 [Chemult 5MG-325MG] 1 tab PO Q6H PRN PRN 3 Days #10 tab PRN Reason: Pain Referrals: Vera Lucas MD [Primary Care Provider] - 3-5 Days
[2019-01-05 13:27] LABS: Absolute Lymphocyte Count 1.76 X10^3/ul (0.83-4.51); Basophil# 0.02 X10^3/uL; Basophil% 0.3 % (0-1); Eosinophil# 0.11 X10^3/uL; Eosinophils% 1.7 % (0-5); Hematocrit 37.3 % (40-54); Hemoglobin 12.7 g/dl (13.0-16.5); Lymphocyte # 1.76 X10^3/ul (4.0); Lymphocyte % 27.7 % (19-41); Mean Corpuscular Volume 79.4 fL (80-94); Mean Platelet Vol. 9.6 fl (6.2-12.0); Monocyte# 0.48 X10^3/uL; Monocyte% 7.6 % (0-10); Neutrophil # 3.96 X10^3/uL (2.7-7.7); Neutrophil % 62.4 % (47-70); POSITIVE COUNT NO; POSITIVE DIFFERENTIAL NO; POSITIVE MORPHOLOGY NO; Platelet Count 208 K/mm3 (150-450); RBC Distribution Width CV 12.7 % (11.6-14.6); RBC Distribution Width SD 36.7 fl (35.1-43.9); White Blood Count 6.4 K/mm3 (4.4-11.0)
[2019-01-05 13:30] LABS: International Normalized Ratio 0.9; Prothrombin Time (Protime)PT. 12.2 SECONDS (11.7-14.9)
[2019-01-05 13:31] LABS: Partial Thromboplast Time 25.1 Seconds (24.1-36.2)
[2019-01-05 13:39] LABS: Anion Gap 7 (5-15); BUN 23 mg/dL (7-18); Calcium,Total 8.7 mg/dL (8.5-10.1); Chloride 102 mmol/L (98-107); Creatinine, Serum 1.28 mg/dL (0.70-1.30); EST Glomerular Filtration Rate 61 mL/min (>60); Est Glom Filt Rate - Afr Amer 74 mL/min (>60); Glucose 398 mg/dL (74-106); Potassium 4.3 mmol/L (3.5-5.1); Sodium Level 135 mmol/L (136-145)
[2019-01-05 14:01] LABS: Mucous, Urine 0 SEEN /hpf (<or=2+); Squamous Epithelial Cells - UA 0 SEEN /hpf (0-5); White Blood Cells 0 SEEN /hpf (0-5)
[2019-01-05 14:06] LABS: Color, Urine Yellow (Yellow); Glucose, Dipstick 1000 mg/dl (Normal); Ketone-Dipstick Negative (Negative); Leukocyte Esterase-Dipstick Negative /ul (Negative); Nitrite-Dipstick Negative (Negative); Occult Blood-Urine 50 /ul (Negative); Protein-Dipstick 100 mg/dl (Negative); Urine Bilirubin Dipstick Negative (Negative); Urine Clarity Clear (Clear); Urine Urobilinogen Normal (Normal)
[2019-01-05 14:13] LABS: Bacteria RARE /hpf (None Seen); Red Blood Cells-Urine 0-5 SEEN /hpf (0-5)
[2019-01-05 14:52] VITALS: BP 162/80; PULSE 62; RESP 17; O2SAT 97
[2019-01-05 15:01] VITALS: BP 183/76; PULSE 63; RESP 23; O2SAT 97
[2019-01-05] MEDS: 0.9% Normal Saline 1,000 ML 1000 ML IV (15:04)
[2019-01-05] MEDS: Morphine 4 MG/ML Syringe IV (15:04)
[2019-01-05 15:55] VITALS: BP 193/70; PULSE 62
== END 2019-01-05 15:56 | disposition home or self-care (01) ==
PROVIDERS: Emergency Provider Emergency Medicine; Family Provider Internal Medicine; PCP Internal Medicine
DX: S06.9X9A Unspecified intracranial injury with loss of consciousness of unspecified duration, initial encounter (principal); S20.219A Contusion of unspecified front wall of thorax, initial encounter; S00.212A Abrasion of left eyelid and periocular area, initial encounter; S00.81XA Abrasion of other part of head, initial encounter; V87.8XXA Person injured in other specified noncollision transport accidents involving motor vehicle (traffic), initial encounter; Y93.9 Activity, unspecified; Y92.9 Unspecified place or not applicable; Y99.9 Unspecified external cause status; E11.65 Type 2 diabetes mellitus with hyperglycemia; R03.0 Elevated blood-pressure reading, without diagnosis of hypertension; Z79.4 Long term (current) use of insulin; Z79.899 Other long term (current) drug therapy
CPT/HCPCS: 70450; 71101; 80048; 81001; 82962; 84484; 85025; 85610; 85730; 93005; 96361; 96374; 99285; J7030; A4216

== ENCOUNTER 2019-02-18 19:52 | Inpatient (IN) | payer MEDICAID, SELFPAY ==
[2019-02-18] VITALS (9 sets, daily range): BP systolic 184–224; BP diastolic 76–98; PULSE 66–72; RESP 15–23; TEMP 36.4; O2SAT 94–97; BMI 24.3; BMI 24.5; BMI 24.6
[2019-02-18 20:10] LABS: Bedside Glucose 326 mg/dL (70-110)
--- NOTE | 2019-02-18 20:18 | EKG12_ITS ---
Test Reason : NEURO SX Blood Pressure : / mmHG Vent. Rate : 067 BPM Atrial Rate : 067 BPM P-R Int : 194 ms QRS Dur : 098 ms QT Int : 454 ms P-R-T Axes : 029 -19 -06 degrees QTc Int : 479 ms Normal sinus rhythm Voltage criteria for left ventricular hypertrophy Nonspecific T wave abnormality Prolonged QT Abnormal ECG Confirmed by ANNALISA VILLA, NINI ([id number]), magazine editor [employer] ([id number]) on 02/20/2019 11:41:55 AM Referred By: Mekhi Berrios Confirmed By:NINI FANG MD
--- NOTE | 2019-02-18 20:18 | CT_ITS ---
STUDY: CT BRAIN WITHOUT CONTRAST REASON FOR EXAM: Male, 63 years old. Stroke RADIATION DOSAGE (If Supplied By Facility): CTDIvol = ( 44.99 ) mGy, DLP = ( 779.24 ) mGycm TECHNIQUE: Transaxial CT imaging of the brain was performed without administration of intravenous contrast material. Individualized dose optimization techniques were used for this CT. COMPARISON: CT 01/05/2019 FINDINGS: Normal soft tissue structures. There is stable lucency within the left frontal skull most likely a venous shaikh rather than pathologic lesion There are stable mild central and cortical involutional changes unchanged there is stable bilateral frontal lobe deep white matter periventricular hypodensities. Stable hypodensities within the left centrum semiovale and bilateral basal ganglia. There are stable hypodensities within the bilateral external capsules. There is stable hypodensity within the brainstem. Normal cerebellum. There is no intracranial hemorrhage. There are no findings of an acute ischemic infarction. Normal visualized paranasal sinuses. CT/Brain/Head without Contrast IMPRESSION: Stable central and cortical involutional changes Stable old deep white matter, left centrum semiovale, bilateral basal ganglia and external capsule ischemic changes Stable old lacunar infarcts within the basal ganglia Stable left frontal skull lesion most likely benign Results were called to and discussed with Physician: Santa Goldstein at approximately 8:35 PM 02/18/2019. N.B. : The above information has been verbally conveyed by Ish Flores to Santa Goldstein MD, on 02/18/2019 20:37:28 (ET). Electronically Signed: Ish Flores, at 20:43 EDT Tel , Service support ,
--- NOTE | 2019-02-18 20:25 | RAD_ITS ---
STUDY: X-RAY CHEST REASON FOR EXAM: Male, 63 years old. History stroke TECHNIQUE: Portable chest COMPARISON: 12/25/2017 FINDINGS: The lungs are clear and expanded. There is no demonstrated pleural abnormality. Normal size heart. Normal mediastinum and merna. Normal visualized pulmonary arteries. Normal visualized aortic arch and descending thoracic aorta. Normal visualized thoracic spine. Normal visualized ribs, clavicles, and shoulders. There is no demonstrated abnormality of the visualized soft tissue structures of the upper abdomen. RAD/Chest 1 View IMPRESSION: Normal x-ray examination of the chest. Electronically Signed: Ish Flores, at 20:56 EDT Tel , Service support ,
[2019-02-18 20:42] LABS: Absolute Lymphocyte Count 1.83 X10^3/ul (0.83-4.51); Absolute Neutrophil Count 4.4 X10^3/uL (2.0-7.7); Basophil# 0.01 X10^3/uL; Basophil% 0.1 % (0-1); Eosinophil# 0.17 X10^3/uL; Eosinophils% 2.4 % (0-5); Hematocrit 33.4 % (40-54); Hemoglobin 11.5 g/dl (13.0-16.5); Lymphocyte # 1.83 X10^3/ul (4.0); Lymphocyte % 26.1 % (19-41); Mean Corp Hgb Conc 34.4 g/gl (32-36); Mean Corpuscular Hgb 27.1 pg (27.0-32.0); Mean Corpuscular Volume 78.8 fL (80-94); Mean Platelet Vol. 9.8 fl (6.2-12.0); Monocyte% 8.6 % (0-10); Neutrophil # 4.35 X10^3/uL (2.7-7.7); Neutrophil % 62.1 % (47-70); Platelet Count 224 K/mm3 (150-450); RBC Distribution Width SD 36.7 fl (35.1-43.9); Red Blood Count 4.24 M/mm3 (4.6-6.2)
[2019-02-18 20:43] LABS: POSITIVE COUNT NO; POSITIVE DIFFERENTIAL NO; POSITIVE MORPHOLOGY NO
[2019-02-18 20:45] LABS: Anion Gap 4 (5-15); BUN 24 mg/dL (7-18); BUN/Creat Ratio 19.7 RATIO (10-20); Calcium,Total 8.5 mg/dL (8.5-10.1); Chloride 104 mmol/L (98-107); Creatinine, Serum 1.22 mg/dL (0.70-1.30); EST Glomerular Filtration Rate 64 mL/min (>60); Est Glom Filt Rate - Afr Amer 78 mL/min (>60); Estimated Creatinine Clearance 63.58 ml/min; Glucose 335 mg/dL (74-106); Potassium 3.8 mmol/L (3.5-5.1); Sodium Level 137 mmol/L (136-145)
--- NOTE | 2019-02-18 21:03 | ED.RN ---
STROKE ALERT WAS CALLED AT 2017. FACE SHEET FAXED AT 2019. PATIENT WAS SEEN BY DR. RAYMOND. NIH OF 4 PER DOCTOR AT THAT TIME. PATIENT IS NOT A CANDIDATE FOR TPA BECAUSE LAST KNOWN WELL WAS 1300. WALTER GOODEN CHARGE NURSE CALLED [facility] AND GAVE THE INFORMATION AND DR. RAYMOND SPOKE TO THE NEUROLOGIST AND HE SAID TO NOT A CANIDATE FOR TPA, FOLLOW UP WITH CT THEN CTA AND MRI WHEN AVAILABLE.
--- NOTE | 2019-02-18 21:08 | ED.RN ---
brought the pt straight back from triage. checked pt vitals. communicated directly with that the pt was showing neuro s/s. was at the bedside at 20:14 to assess the pt. Pt NIH score of 3. wanted to iniate a stroke alert, which was called at 20:17. Tele health called by Toya Madison RN at 20:18. Facehseet faxed by [employer] at 20:19. Pt taken to CT at 20:21. talked with the neurologist.
--- NOTE | 2019-02-18 21:55 | HP.PCM_ITS ---
Problem List (1) Stroke-like symptoms Status: Acute (2) HLD (hyperlipidemia) Status: Chronic (3) Benign hypertension Status: Chronic History of Present Illness Date of Admission: 02/18/19 Chief Complaint: left sided changes in sensation The patient is a 63 year old M with a significant history of hypertension; hyperlipidemia; and diabetes who presented to the emergency department with changes in sensation of his left side. Patient has numbness and tingling to the left side of his face and to his left upper extremity and his left lower extremities. His symptoms started on 1 PM on the same day of presentation and that was more than 4 hours prior to arrival at the emergency department. Also patient had wobbly gait; headache and generalized weakness. Per family and patient patient did not have any speech changes. At the emergency department reportedly his NIH scale was scored as a 4 (right leg weakness; decreased sensation of left side; and mild dysarthria). Stroke alert was called at the emergency department. Brain CT did not show any acute changes. Per conversation between Emergency department doctor and Tele- neurologist no TPA was indicated and conventional stroke work-up should be pursued. Past Medical History Past Medical History (Chronic Problems): Chronic Problems HLD (hyperlipidemia) (Chronic) Hypercholesteremia (Chronic) Type II diabetes mellitus, uncontrolled (Chronic) Benign hypertension (Chronic) Allergies metformin [From Glucophage] Adverse Reaction (Verified 02/18/19 19:55) Abd cramps/diarrhea Home Medications: Ambulatory Orders Medication Instructions Recorded metFORMIN (XR) [Glucophage Xr] 500 mg PO BID 10/06/15 Insulin Aspart [Novolog Flexpen] See Protocol SC QHS 09/04/16 Lisinopril 40 mg PO DAILY 05/11/17 Insulin Glargine,Hum.rec.anlog 54 unit SQ QHS 06/23/17 [Basaglar Kwikpen U-100] Gabapentin [Neurontin] 100 mg PO DAILY 05/06/18 Multivitamin [Daily Multiple 1 each PO DAILY 05/06/18 Vitamin] Aspirin 1 tab PO DAILY 02/18/19 Ibuprofen 800 mg PO 4X/DAY PRN 02/18/19 Metoprolol Tartrate [Lopressor 50 mg PO BID 02/18/19 (beta yue)] Surgical History: - - Carpal tunnel surgery Lives: Alone Smoking Status: Never smoker Alcohol: None Review of Systems Constitutional: Denies: Chills, Fever, Weight Change HEENT: Denies: Head Aches, Sinus Congestion, Sinus Drainage Cardiovascular: Denies: Chest Pain, Palpitations Respiratory: Denies: Cough, Shortness of breath at rest, Sputum production Gastrointestinal: Denies: Abdominal Pain, Nausea, Vomiting Genitourinary: Denies: Dysuria Musculoskeletal: Denies: Joint Pain, Joint Tenderness Skin: Denies: Rash, Wounds Neurological: Reports: Balance problems, Headaches, Numbness, Tingling Psychiatric: Denies: Anxiety, Depression, Homicidal Ideations, Suicidal Ideations Hematologic/ Lymphatic: Denies: Easy Bruising, Easy Bleeding VTE Information - Inpt Only VTE Present on Admission: No VTE Mechan Device Prophylaxis: None VTE Pharm Prophylaxis ordered?: Yes Patient Problems: Active and Suspected Problems CVA (cerebral vascular accident) (Acute) Stroke-like symptoms (Acute) - Physical Exam General: Alert, Oriented x3, Cooperative HEENT: Atraumatic, PERRLA, EOMI, Normocephalic Neck: Supple, No JVD, Negative Carotid Bruits Lungs: Clear to auscultation, Normal air movement Cardiovascular: Regular rate, No murmurs Abdomen: Bowel Sounds Present, Soft, Non Tender Extremities: No edema, Capillary Refill Less than 3 Seconds Skin: No rashes, No breakdown Musculoskeletal: No Tenderness to Palpation of Joints or Extremities Neurological: - - No dysmetria. Could not shrugg left shoulder as much as right shoulder. Did not wiggle forehead; stated that he has headache and cannot recall for it. Left arm and left leg strength 4 out of 5. Right and right leg strength 5 out of 5. Sensation changes on left face and left arm. Deep tendon reflexes is not hyperreflexia throughout. Psych/Mental Status: Normal Affect, Appropriate Vital Signs Temp Pulse Resp BP Pulse Ox 97.5 F L 66 15 188/79 H 97 02/18/19 19:53 02/18/19 21:50 02/18/19 21:50 02/18/19 21:50 02/18/19 21:50 Oxygen Delivery Method Room Air Weight: 74.6 kg Body Mass Index (BMI) 24.3 Finger Stick Blood Glucose 326 Laboratory Tests Past 24 Hrs 02/18/19 02/18/19 02/18/19 18:06 18:06 18:06 WBC 7.0 RBC 4.24 L Hgb 11.5 L Hct 33.4 L MCV 78.8 L MCH 27.1 MCHC 34.4 RDW 13.0 RDW Differential 36.7 Plt Count 224 MPV 9.8 Immature Gran % (Auto) 0.700 Neut % (Auto) 62.1 Lymph % (Auto) 26.1 Boyle % (Auto) 8.6 Eos % (Auto) 2.4 Baso % (Auto) 0.1 Absolute Neuts (auto) 4.4 Absolute Lymphs (auto) 1.83 PT 13.0 INR 1.0 APTT 26.0 Sodium 137 Potassium 3.8 Chloride 104 Carbon Dioxide 29.0 Anion Gap 4 L BUN 24 H Creatinine 1.22 Estim Creat Clear Calc 63.58 Est GFR (MDRD) Af Amer 78 Est GFR (MDRD) Non-Af 64 BUN/Creatinine Ratio 19.7 Glucose 335 H Calcium 8.5 Troponin I < 0.015 POC Glucose 02/18/19 20:07 POC Glucose 326 H Assessment/Plan All Active Problems CVA (cerebral vascular accident) (Acute) Stroke-like symptoms (Acute) Hyperglycemia (Acute) Tachyarrhythmia (Acute) The patient is a 63 year old M with a significant history of hypertension; hyperlipidemia; and diabetes who presented to the emergency department with changes in sensation of his left side; and found to have a weakness of his left lower extremities and reportedly has some dysarthria consistent with strokelike symptoms. Strokelike symptoms NINDS NIH Scale was 4 CT of the head was unremarkable -Hba1c ordered on presentation; 9.8. Check lipid level in a.m. Physical therapy, occupational therapy and speech therapy to work with patient. N.p.o. until bedside swallow eval. Passed swallow eval resume diet. Daily aspirin continued. Start high intensity statin Permissive hypertension. Control blood pressure with labetalol for systolic blood pressure of more than 220 or diastolic blood pressure of more than 120. -Permissive HTN for 24 hrs, skilled nursing goal BP < 120/80 mmHg and goal Hba1c < 7%. Hold home lisinopril and metoprolol at this time. MRI/MRAM of head; brain; and neck. Echocardiogram ordered. Hypertension Presentation blood pressure was not within goal. Would hold home hypertensive medication per stroke protocol and allow permissive hypertension with PRN labetalol per stated goals as above. Diabetes mellitus On presentation his blood glucose was not within goal. Continue home basal insulin. Add correction scale insulin. Hold home metformin since it is too early in his admission. DVT prophylaxis Subcutaneous Lovenox ordered Code Visit OBSV E&M: [id number] Initial observation care L3
--- NOTE | 2019-02-18 22:04 | ED.VIS.GEN ---
History of Present Illness Chief Complaint: Neuro S/Sx Detail of Chief Complaint: Left facial numbness and speech difficulty Informant: Patient Onset: Today Current Severity: Moderate Maximum Severity: Moderate Narrative: Patient presents with complaint of left facial numbness that started at 1 PM this afternoon. He presents greater than 7 hours after onset. He states throughout the day symptoms seem to be worse. He has some problems with his speech. He also notes some slight numbness to his left leg and to the bilateral forearms and hands. Past history is significant for diabetes and hypertension. He states he has not taken his medications today. - Past Medical History (1) Benign hypertension Status: Chronic (2) HLD (hyperlipidemia) Status: Chronic (3) Hypercholesteremia Status: Chronic (4) Type II diabetes mellitus, uncontrolled Status: Chronic Past Medical History - Allergies and Home Meds Allergies/Adverse Reactions: Allergies metformin [From Glucophage] Adverse Reaction (Verified 02/18/19 19:55) Abd cramps/diarrhea Primary Care Physician: Vera Lucas MD [Primary Care Provider] - Prior records reviewed: Yes Past Medical History: - - Reviewed Surgical History: no surgical history Smoking Status: Former smoker Review of Systems General: Denies: Chills, Fever Eyes: Denies: Visual changes - left, Visual changes - right Cardiovascular: Denies: Chest pain, Palpitations Respiratory: Denies: Dyspnea, Cough Gastrointestinal: Denies: Abdominal pain, Nausea, Vomiting Neurological: Reports: Weakness, Parasthesia, Numbness. Denies: Headache Physical Exam Vital Signs/Narrative: Vital Signs Temp Pulse Resp BP Pulse Ox 02/18/19 21:50 66 15 188/79 H 97 02/18/19 21:09 67 23 H 184/76 H 95 02/18/19 20:39 95 02/18/19 20:37 67 18 195/80 H 95 02/18/19 19:53 97.5 F L 72 16 205/98 H 96 General: Well nourished, Well developed ENT: Moist mucous membranes Cardiovascular: Regular rate, Regular rhythm Respiratory: No distress, CTA bilaterally Abdomen: Soft, Nontender Neurological: - - NIH score is initially 4. Patient received 2 points for right leg weakness, one point for decreased sensation to light touch in the left leg and left face, and one point for mild dysarthria. Diagnostic/Tx/Re-eval Impressions Brain CT 02/18/19 20:18 IMPRESSION: Stable central and cortical involutional changes Stable old deep white matter, left centrum semiovale, bilateral basal ganglia and external capsule ischemic changes Stable old lacunar infarcts within the basal ganglia Stable left frontal skull lesion most likely benign Results were called to and discussed with Physician: Santa Goldstein at approximately 8:35 PM 02/18/2019. N.B. : The above information has been verbally conveyed by Santa Smith MD, on 02/18/2019 20:37:28 (ET). Electronically Signed: Ish Flores, at 20:43 EDT Tel , Service support , ADDENDUM: 02/18/192049 IMPRESSION: Stable central and cortical involutional changes Stable old deep white matter, left centrum semiovale, bilateral basal ganglia and external capsule ischemic changes Stable old lacunar infarcts within the basal ganglia Stable left frontal skull lesion most likely benign Results were called to and discussed with Physician: Santa Goldstein at approximately 8:35 PM 02/18/2019. N.B. : The above information has been verbally conveyed by Santa Smith MD, on 02/18/2019 20:37:28 (ET). Electronically Signed: Ish Flores at 20:43 EDT Tel , Service support , 02/18/19 20:18 Brain/Head without Contrast [CT] Stat 02/18/19 20:25 Chest 1 View [RAD] Stat Laboratory Results 02/18/19 02/18/19 02/18/19 18:06 18:06 18:06 WBC 7.0 RBC 4.24 L Hgb 11.5 L Hct 33.4 L MCV 78.8 L MCH 27.1 MCHC 34.4 RDW 13.0 RDW Differential 36.7 Plt Count 224 MPV 9.8 Immature Gran % (Auto) 0.700 Neut % (Auto) 62.1 Lymph % (Auto) 26.1 [place] % (Auto) 8.6 Eos % (Auto) 2.4 Baso % (Auto) 0.1 Absolute Neuts (auto) 4.4 Absolute Lymphs (auto) 1.83 PT 13.0 INR 1.0 APTT 26.0 Sodium 137 Potassium 3.8 Chloride 104 Carbon Dioxide 29.0 Anion Gap 4 L BUN 24 H Creatinine 1.22 Estim Creat Clear Calc 63.58 Est GFR (MDRD) Af Amer 78 Est GFR (MDRD) Non-Af 64 BUN/Creatinine Ratio 19.7 Glucose 335 H Calcium 8.5 Troponin I < 0.015 POC Glucose 02/18/19 20:07 WBC RBC Hgb Hct MCV MCH MCHC RDW RDW Differential Plt Count MPV Immature Gran % (Auto) Neut % (Auto) Lymph % (Auto) [place] % (Auto) Eos % (Auto) Baso % (Auto) Absolute Neuts (auto) Absolute Lymphs (auto) PT INR APTT Sodium Potassium Chloride Carbon Dioxide Anion Gap BUN Creatinine Estim Creat Clear Calc Est GFR (MDRD) Af Amer Est GFR (MDRD) Non-Af BUN/Creatinine Ratio Glucose Calcium Troponin I POC Glucose 326 H - EKG Initial EKG Interpretation: - - Sinus at 67 with no acute ischemia. Lateral T wave flattening is noted. - Medical Decision Making Stroke team was initiated on patient shortly after his arrival. I spoke with the neurologist at [facility]. He agreed that the patient was outside the window for TPA. He also advised the patient would likely not be a thrombectomy candidate. He recommended CT of the head here and admission for remainder of stroke work-up. I will speak with the hospitalist. On repeat exam patient's NIH score has improved to a 1. ED Disposition - Plan for ED Patient: Disposition: Acute Care Hospital [facility] Diagnosis: CVA (cerebral vascular accident) Referrals: Vera Lucas MD [Primary Care Provider] -
--- NOTE | 2019-02-18 22:19 | ED.RN ---
DR. GARCES IS CURRENTLY AT BEDSIDE SO NIH VITAL SIGNS ARE DELAYED.
--- NOTE | 2019-02-18 23:00 | ED.RN ---
NIH OF 1 DONE WITH PCU NURSE AT THE BEDSIDE. FOR LEFT ARM DECREASED FEELING AND LEFT SIDE OF FACE DECREASED FEELING.
--- NOTE | 2019-02-18 23:43 | ECHOD_ITS ---
Reason For Study: TIA/CVA Procedure This was a 2D Doppler, Color Flow transthoracic echocardiogram. Contrast injection was performed. Exam performed portable in patient room. Left Ventricle Normal LV size. Left ventricular systolic function is normal. The estimated ejection fraction is 55 %. There is evidence of diastolic dysfunction. No regional wall motion abnormalities noted. Right Ventricle Normal RV size. Normal systolic function. Atria The left atrium is mildly enlarged. Normal right atrium. No doppler evidence for ASD. Bubble contrast study negative for right to left interatrial shunt. Mitral Valve There is no mitral annular calcification. Bileaflet diffuse mitral valve thickening. Mild mitral valve prolapse, posterior leaflet. Trivial mitral valve insufficiency. Tricuspid Valve Normal tricuspid valve. Mild tricuspid valve insufficiency. Right ventricular systolic pressure estimated to be 30 mmHg. Aortic Valve Trisinus/trileaflet aortic valve. Mild diffuse aortic valve thickening. Mild focal aortic valve calcification. Aortic sclerosis, no stenosis. Mild (1+) aortic valve insufficiency. Pulmonic Valve The pulmonic valve is not well visualized. Trivial pulmonic valve insufficiency. Great Vessels Mildly dilated aortic root. Pericardium/Pleural No pericardial effusion. Medication Performed a rapid injection of agitated mix of 9 cc saline and 1cc air to assess for atrial septal defect. MMode/2D Measurements & Calculations LVIDd: 4.1 cm IVSd: 1.5 cm Ao root diam: 4.2 cm LVIDs: 3.2 cm LVPWd: 1.2 cm LA dimension: 4.0 cm FS: 20.9 % LAV(MOD-bp): 69.9 ml LVAd ap4: 33.4 cm2 SV(MOD-sp4): 57.6 ml LAV(MOD-bp) Indexed: 36.6 ml/m2 EDV(MOD-sp4): 103.7 ml LAV(MOD-sp2): 85.5 ml EDV(sp4-el): 109.7 ml LAV(MOD-sp4): 51.3 ml LVAs ap4: 20.6 cm2 ESV(MOD-sp4): 46.1 ml ESV(sp4-el): 48.2 ml EF(MOD-sp4): 55.5 % EF(sp4-el): 56.1 % SV(sp4-el): 61.6 ml LA A4 area: 18.3 cm2 Time Measurements MV dec time: 0.39 sec Doppler Measurements & Calculations MV E max nikhil: 54.2 cm/sec Lat Peak E' Nikhil: 6.0 cm/sec Med Peak E' Nikhil: 3.5 cm/sec MV A max nikhil: 60.7 cm/sec E/E' lat: 9.0 E/E' med: 15.6 MV E/A: 0.89 MV V2 max: 82.8 cm/sec MV P1/2t max nikhil: 66.0 cm/sec Ao V2 max: 94.0 cm/sec MV max P.7 mmHg MV P1/2t: 89.4 msec Ao max P.5 mmHg MV V2 mean: 47.5 cm/sec MV mean P.0 mmHg MV dec slope: 216.3 cm/sec2 MV V2 VTI: 22.7 cm MVA(P1/2t): 2.5 cm2 AI max nikhil: 471.1 cm/sec LV V1 max: 79.8 cm/sec PA V2 max: 81.9 cm/sec AI max P.9 mmHg LV V1 max P.5 mmHg AI dec slope: 247.8 cm/sec2 AI P1/2t: 556.7 msec TR max nikhil: 261.4 cm/sec TR max P.3 mmHg Interpretation Summary Contrast injection was performed. Left ventricular systolic function is normal. The estimated ejection fraction is 55 %. The left atrium is mildly enlarged. Bileaflet diffuse mitral valve thickening. Mild mitral valve prolapse, posterior leaflet Trivial mitral valve insufficiency. Mild tricuspid valve insufficiency. Aortic sclerosis, no stenosis. Mild (1+) aortic valve insufficiency. Trivial pulmonic valve insufficiency. Mildly dilated aortic root. Right ventricular systolic pressure estimated to be 30 mmHg. There is evidence of diastolic dysfunction. Bubble contrast study negative for right to left interatrial shunt. Ordering Physician: Mekhi Berrios Performed By: Broderick Arriaga RCS
[2019-02-19] VITALS (12 sets, daily range): BP systolic 156–184; BP diastolic 75–87; PULSE 63–72; RESP 16; TEMP 36.4–37; O2SAT 95–98; BMI 24.5
[2019-02-19] MEDS: Atorvastatin Calcium 80 MG Tablet PO ×2 (00:12→22:04)
[2019-02-19 00:21] LABS: Bedside Glucose 352 mg/dL (70-110)
[2019-02-19 02:04] LABS: Hemoglobin A1c 9.8 % (4.2-6.3)
[2019-02-19] MEDS: 0.9% NaCl Peripheral Flush Adult/Peds IV (06:42)
[2019-02-19] MEDS: Insulin Lispro 100 UNIT/ML INSULN.PEN SC ×3 (06:42→22:04)
[2019-02-19 06:51] LABS: Bedside Glucose 206 mg/dL (70-110)
[2019-02-19 07:08] LABS: Cholesterol 139 mg/dL (200); High Density Lipoprotein 26 mg/dL; Triglycerides 378 mg/dL; Very Low Density Lipoprotein 76 mg/dL (5-40)
--- NOTE | 2019-02-19 08:00 | MRI_ITS ---
STUDY: MRA NECK WITH AND WITHOUT CONTRAST REASON FOR EXAM: Male, 63 years old. CVA, left arm and face numbness TECHNIQUE: 3-D [id number] (TOF) imaging was performed in an 1.5 T MRI scanner. 15 IV Dotarem was administered for the contrast enhanced images. COMPARISON: None. FINDINGS: RIGHT CAROTID ARTERIES: Normal right common carotid artery (CCA). Normal right common carotid bulb. Normal origin of the right internal carotid (ICA) artery without a hemodynamically significant stenosis. Normal visualized cervical portion of the right internal carotid artery. Normal origin of the right external carotid artery (ECA). LEFT CAROTID ARTERIES: Normal left common carotid artery (CCA). Normal left common carotid bulb. There is mild atherosclerotic plaque formation of the origin of the left internal carotid artery with less than 50% cross sectional diameter stenosis. Normal visualized cervical portion of the left internal carotid artery. Normal origin of the left external carotid artery (ECA). VERTEBRAL ARTERIES: Normal antegrade flow within the bilateral vertebral artery without a hemodynamically significant stenosis. MRI/MRA Neck WITH and W/O Contrast IMPRESSION: Mild atherosclerotic plaque of the proximal left internal carotid artery with less than 50% stenosis. Otherwise, normal bilateral cervical carotid and vertebral arteries. Electronically Signed: Shabbir Moscoso, at 12:17 EDT Tel , Service support ,
--- NOTE | 2019-02-19 08:00 | MRI_ITS ---
STUDY: MRA OF THE HEAD WITHOUT CONTRAST REASON FOR EXAM: Male, 63 years old. CVA, left arm and face numbness TECHNIQUE: 3-D [id number]-gh-[id number] (TOF) imaging was performed with MIPs. The study was performed unenhanced. COMPARISON: Brain MRI performed the same day. FINDINGS: Normal bilateral petrous carotid arteries. Normal right cavernous carotid artery with a normal supraclinoid bifurcation. Normal left cavernous carotid artery with a normal supraclinoid bifurcation. Normal right A1 segments of the anterior cerebral artery. Normal left A1 segments of the anterior cerebral artery. Normal intact anterior communicating artery (ACOM). Normal bilateral A2 segments of the anterior cerebral arteries. Normal right M1 and M2 segments of the middle cerebral arteries, with a normal M1 bifurcation. Normal left M1 and M2 segments of the middle cerebral arteries, with a normal M1 bifurcation. There is a persistent origin of the right posterior cerebral artery with absence of the P1 segment of the right posterior cerebral artery. Normal left posterior communicating artery (PCOM). Normal bilateral vertebral arteries. There is a 5 mm segment of moderate to marked basilar artery narrowing with reconstitution distally and normal bifurcation. The visualized bilateral superior cerebellar (SCA) arteries are normal. Normal left P1 segment of the posterior cerebral artery. Normal bilateral P2 and visualized P3 segments of the posterior cerebral arteries. There is no demonstrated aneurysm of the tunica-biloxi of [place]. There is no demonstrated abnormality of the visualized brain. MRI/MRA Head ONLY without Contrast IMPRESSION: 5 mm segment of moderate to marked basilar artery narrowing with reconstitution distally and normal bifurcation. Electronically Signed: Shabbir Blanka, at 12:03 EDT Tel , Service support ,
--- NOTE | 2019-02-19 08:00 | MRI_ITS ---
STUDY: MRI BRAIN WITHOUT CONTRAST REASON FOR EXAM: Male, 63 years old. CVA, left arm and face numbness TECHNIQUE: Standardized multiplanar fat and water weighted pulse sequences were obtained. COMPARISON: CT head 02/18/2019. FINDINGS: There is a small focus of restricted diffusion in the right thalamus measuring 5 mm. No intracranial hemorrhage. There is mild cerebral atrophy with widening of the extra-axial spaces and ventricular dilatation. There are a limited number of small white matter hyperintensities, distributed throughout the deep white matter tracts of the cerebral hemispheres, consistent with mild chronic white matter ischemic changes. There are prominent bilateral basal ganglia lacunar infarcts. Normal left thalamus. There is no extra-axial fluid accumulation. Normal flow voids within the major intracranial circulation suggesting patency by spin echo criteria. Normal sella turcica, pituitary gland, infundibular stalk, optic chiasm and hypothalamus. Normal tectal plate and pineal gland. Normal midbrain, [place] and medulla. Normal cerebellum. Normal basal cisterns. Normal bilateral temporal bones. Normal bilateral internal auditory canals. No demonstrated orbital abnormality, within the constraints of a routine brain study. Normal visualized paranasal sinuses. Normal calvarium and skull base. Normal visualized soft tissue structures. Normal visualized upper cervical spine. MRI/Brain without Contrast IMPRESSION: Acute lacunar infarct in the right thalamus measures 5mm. No intracranial hemorrhage. Chronic findings described above. Electronically Signed: Shabbir Moscoso, at 11:05 EDT Tel , Service support ,
[2019-02-19] MEDS: Aspirin 81 MG TAB.CHEW PO (11:19)
[2019-02-19] MEDS: Enoxaparin 40 MG/0.4 ML Syringe SC (11:19)
[2019-02-19] MEDS: Gabapentin 100 MG Capsule PO (11:21)
[2019-02-19 11:25] LABS: Bedside Glucose 147 mg/dL (70-110)
--- NOTE | 2019-02-19 13:43 | CASEMGMT ---
BERKLEY RITTER Assessment Presentation: CVA Intro role of CM and purpose of RN CM assessment to patient in room. Pt is awake, alert, oriented and able to participate in assessment. Demographics, PCP and Pharmacy verified. BERKLEY RITTER spoke with PT/OT. PT eval pending, however OT eval complete. BERKLEY RITTER discussed with pt that CM will be available for discharge needs once therapy evaluations and recommendations are complete. PCP: Dr. Lucas Specialists: Neurology Preferred [facility]acy: [facility] Insurance: [employer] Prescription Benefit: yes LNOK: Daughter, Devi Lutz Living Arrangements: Lives in first floor apartment independently prior to admission. Grab bars in bathroom. Pt states he had been independent with ADL. Transportation: Drives, but if unable, has friend, Neftali who can assist with driving. DME: none HHC: none Patient DC goals: Home DC PLAN: undetermined. PT evaluation pending. BERKLEY RITTER spoke with PT/OT and requested recommendation when both evals are completed. Andreea NEWSOME RN ACM
--- NOTE | 2019-02-19 14:28 | PN_ITS ---
Patient Problems: Active and Suspected Problems CVA (cerebral vascular accident) (Acute) Stroke-like symptoms (Acute) Stroke (Acute) Subjective: The patient is a 63-year-old male with a past medical history of hyperlipidemia, diabetes mellitus type 2 and hypertension who presented to the emergency department at [facility] on 02/18/2019 complaining of paresthesias on his left side. He additionally complained of having a wobbly gait headache and generalized weakness. He had no speech difficulties per the patient and his family however he was found to have mild dysarthria in the emergency department. A noncontrasted CT brain showed no acute changes. Vital signs at presentation to the emergency room were temperature 97.5, pulse rate 72, blood pressure 205/98, respiratory rate 16 and he was 96% saturated on room air. CBC was remarkable for a hemoglobin of 11.5 with an MCV of 78.8 and a normal RDW. Review of old records shows that the MCV has always been low. BMP showed normal electrolytes with a BUN of 24 and a creatinine of 1.22 which is within his baseline. Random blood sugar was 335 and the hemoglobin A1c is uncontrolled at 9.8. Troponin was less than 0.015. The ER physician was in contact with the tele-neurologist and TPA was not recommended. He was admitted to a monitored bed on PCU and the stroke protocol was initiated. MRI done on 02/19/2019 shows an acute lacunar infarct in the right thalamus which measures 5 mm. MRA of the head showed a 5 mm segment of moderate to marked basilar artery narrowing with reconstitution distally and a normal bifurcation. MRA of the neck showed mild atherosclerotic plaque of the proximal left internal carotid artery with less than 50% stenosis. The study was otherwise normal. All events of the past 24 hours of been reviewed Blood pressure in the past 9 hours has ranged from 165/75-193/92. Current blood pressure is 165/75. Heart rate is in the 60s and 70s. Pulse ox is 95 to 97% on room air. Telemetry-normal sinus rhythm with no ectopy EKG-normal sinus rhythm with nonspecific ST and T wave changes, left axis deviation and mild QT prolongation All lab was personally reviewed. The triglycerides are elevated at 378 likely secondary to uncontrolled diabetes mellitus. LDL is 37 and the HDL is 26. Blood sugars are coming under better control with a diet He denies cephalgia. He also denies dizziness, gait instability. He tells me he was able to ambulate in the sorto with physical therapy today with no assistive devices. His current NIH is 0. - Physical Exam General: Alert, Oriented x3, Cooperative, No apparent distress, Well developed, Well nourished HEENT: Atraumatic, PERRLA, EOMI, Normocephalic Oral: Dry Mucosa Neck: Supple, No JVD, Negative Carotid Bruits Lungs: Clear to auscultation, Normal air movement Cardiovascular: Regular rate, Regular Rhythm, Normal S1, Normal S2, No murmurs, No Ectopic Activity, No rub noted, No Gallop Abdomen: Bowel Sounds Present, Soft, Non Tender, Non-Distended Extremities: No clubbing, No cyanosis, No edema Skin: No rashes Neurological: Cranial nerves II-XII grossly intact, Neuro grossly intact Psych/Mental Status: Normal Affect, Appropriate Vital Signs Temp Pulse Resp BP Pulse Ox 98 F 64 16 184/87 H 98 02/19/19 10:30 02/19/19 10:30 02/19/19 10:30 02/19/19 10:30 02/19/19 10:30 Oxygen Delivery Method Room Air Weight: 166 lb 7.184 oz Body Mass Index (BMI) 24.5 Finger Stick Blood Glucose 326 Intake and Output for Last 24 Hours 02/17/19 02/18/19 02/19/19 23:59 23:59 23:59 Intake Total 840 / 840 Balance 840 / 840 Laboratory Tests Past 24 Hrs 02/18/19 02/18/19 02/18/19 18:06 18:06 18:06 WBC 7.0 RBC 4.24 L Hgb 11.5 L Hct 33.4 L MCV 78.8 L MCH 27.1 MCHC 34.4 RDW 13.0 RDW Differential 36.7 Plt Count 224 MPV 9.8 Immature Gran % (Auto) 0.700 Neut % (Auto) 62.1 Lymph % (Auto) 26.1 [place] % (Auto) 8.6 Eos % (Auto) 2.4 Baso % (Auto) 0.1 Absolute Neuts (auto) 4.4 Absolute Lymphs (auto) 1.83 PT 13.0 INR 1.0 APTT 26.0 Sodium 137 Potassium 3.8 Chloride 104 Carbon Dioxide 29.0 Anion Gap 4 L BUN 24 H Creatinine 1.22 Estim Creat Clear Calc 63.58 Est GFR (MDRD) Af Amer 78 Est GFR (MDRD) Non-Af 64 BUN/Creatinine Ratio 19.7 Glucose 335 H Hemoglobin A1c Calcium 8.5 Troponin I < 0.015 Triglycerides Cholesterol LDL Cholesterol VLDL Cholesterol HDL Cholesterol 02/18/19 02/19/19 18:06 05:38 WBC RBC Hgb Hct MCV MCH MCHC RDW RDW Differential Plt Count MPV Immature Gran % (Auto) Neut % (Auto) Lymph % (Auto) [place] % (Auto) Eos % (Auto) Baso % (Auto) Absolute Neuts (auto) Absolute Lymphs (auto) PT INR APTT Sodium Potassium Chloride Carbon Dioxide Anion Gap BUN Creatinine Estim Creat Clear Calc Est GFR (MDRD) Af Amer Est GFR (MDRD) Non-Af BUN/Creatinine Ratio Glucose Hemoglobin A1c 9.8 H Calcium Troponin I Triglycerides 378 H Cholesterol 139 LDL Cholesterol 37 VLDL Cholesterol 76 H HDL Cholesterol 26 L POC Glucose 02/19/19 02/19/19 02/19/19 11:18 06:38 00:10 POC Glucose 147 H 206 H 352 H 02/18/19 20:07 POC Glucose 326 H Medical Necessity - Tobacco Use Smoking Status: Former smoker Tobacco Use: Cigarettes Assessment/Plan All Active Problems CVA (cerebral vascular accident) (Acute) Stroke-like symptoms (Acute) Stroke (Acute) Hyperglycemia (Acute) Tachyarrhythmia (Acute) Impressions 1. Acute right thalamic ischemic CVA 2. Diabetes mellitus type 2-not adequately controlled 3. 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 Hyperlipidemia-LDL is adequately controlled, HDL is still low 5. Hypertriglyceridemia-likely related to poorly controlled diabetes mellitus 6. Hypertension Discussed with Dr. Jimenez and he recommends dual antiplatelet therapy with aspirin and Plavix for the next 3 months and then switch to single antiplatelet therapy with ASA. Discouraged regular use of Motrin while on dual antiplatelet therapy to decrease the risk of GI bleeding Permissive hypertension for 24 hours Follow-up with Dr. Jimenez in 2 to 3 weeks in the office Consult dietitian for education regarding appropriate diet and blood sugar control. It may be a good idea for him to follow-up in the diabetic clinic run by the dietitians to get his blood sugars adequately controlled. Probable discharge in the a.m. Code Visit Inpatient E&M: 29384 Subs Hosp L2
--- NOTE | 2019-02-19 14:58 | CASEMGMT ---
PHQ 9 was completed as patient had a Stroke. Patient scored a 4 which indicates minimal depression. He was given a resource list. Stephany THAYER MSW
--- NOTE | 2019-02-19 16:02 | CON.PCM_ITS ---
Problem List (1) Stroke Status: Acute Qualifiers: CVA mechanism: thrombosis Precerebral and cerebral artery: posterior cerebral artery Laterality of affected vessel: right Qualified Code(s): I63.331 - Cerebral infarction due to thrombosis of right posterior cerebral artery Reason for Consult Date of Consultation: 02/19/19 Reason for Consultation: Stroke History of Present Illness: The patient is a 63 year old M with PMH HTN, HLD, DM admitted with acute onset left-sided numbness. Stroke alert was called on admission. Telemetry stroke was done by the neurologist from [facility] it was decided that the patient was not a TPA candidate as he was out of the TPA window. Per patient he started having left-sided numbness starting yesterday 02/19/2019 at around 1 PM and he presented to the ED about 7 hours later. On admission per ED documentation his NIHSS was 4 initially which later on improved to 1. At present patient denies any headache dizziness focal motor weakness, sensory loss, speech disturbances or visual disturbances. Per patient his left-sided numbness has improved and per patient he is at baseline at present. Per patient he lives alone, denies any frequent falls, does not use cane or walker to ambulate, does drive and does not need any assistance with this ADLs. He is on aspirin at baseline. MRI brain done on admission showed small right thalamic acute infarct. 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 [] Past Medical History Past Medical History (Chronic Problems): Chronic Problems HLD (hyperlipidemia) (Chronic) Hypercholesteremia (Chronic) Type II diabetes mellitus, uncontrolled (Chronic) Benign hypertension (Chronic) Allergies metformin [From Glucophage] Adverse Reaction (Verified 02/18/19 19:55) Abd cramps/diarrhea Home Medications: Ambulatory Orders Medication Instructions Recorded metFORMIN (XR) [Glucophage Xr] 500 mg PO BID 10/06/15 Insulin Aspart [Novolog Flexpen] See Protocol SC QHS 09/04/16 Lisinopril 40 mg PO DAILY 05/11/17 Insulin Glargine,Hum.rec.anlog 54 unit SQ QHS 06/23/17 [Basaglar Kwikpen U-100] Gabapentin [Neurontin] 100 mg PO DAILY 05/06/18 Multivitamin [Daily Multiple 1 each PO DAILY 05/06/18 Vitamin] Aspirin 1 tab PO DAILY 02/18/19 Ibuprofen 800 mg PO 4X/DAY PRN 02/18/19 Metoprolol Tartrate [Lopressor 50 mg PO BID 02/18/19 (beta yue)] Surgical History: - - Carpal tunnel surgery Lives: Alone Smoking Status: Former smoker Tobacco Use: Cigarettes Alcohol: None Drugs: None Review of Systems Constitutional: Reports: - - Complete ROS negative except as documented in HPI Patient Problems: Active and Suspected Problems CVA (cerebral vascular accident) (Acute) Stroke-like symptoms (Acute) Stroke (Acute) - Physical Exam General: Alert HEENT: Normocephalic Neck: Supple Lungs: Normal air movement Cardiovascular: Normal S1, Normal S2 Abdomen: Bowel Sounds Present Extremities: No cyanosis Neurological: - - Conscious, alert, CN II through XII grossly intact, power 5 x 5 all 4 extremities, no sensory loss at present, no cerebellar signs, gait deferred, no dysarthria/aphasia, Reflexes + B/L B/S/T/K/A, NIHSS 0 at present, mRS 0 at baseline Psych/Mental Status: Normal Affect Vital Signs Temp Pulse Resp BP Pulse Ox 98.6 F 65 16 165/75 H 98 02/19/19 14:30 02/19/19 15:27 02/19/19 14:30 02/19/19 14:30 02/19/19 14:30 Oxygen Delivery Method Room Air Weight: 75.5 kg Body Mass Index (BMI) 24.5 Finger Stick Blood Glucose 326 Intake and Output for Last 24 Hours 02/17/19 02/18/19 02/19/19 23:59 23:59 23:59 Intake Total 840 / 840 Balance 840 / 840 Laboratory Tests Past 24 Hrs 02/18/19 02/18/19 02/18/19 18:06 18:06 18:06 WBC 7.0 RBC 4.24 L Hgb 11.5 L Hct 33.4 L MCV 78.8 L MCH 27.1 MCHC 34.4 RDW 13.0 RDW Differential 36.7 Plt Count 224 MPV 9.8 Immature Gran % (Auto) 0.700 Neut % (Auto) 62.1 Lymph % (Auto) 26.1 [place] % (Auto) 8.6 Eos % (Auto) 2.4 Baso % (Auto) 0.1 Absolute Neuts (auto) 4.4 Absolute Lymphs (auto) 1.83 PT 13.0 INR 1.0 APTT 26.0 Sodium 137 Potassium 3.8 Chloride 104 Carbon Dioxide 29.0 Anion Gap 4 L BUN 24 H Creatinine 1.22 Estim Creat Clear Calc 63.58 Est GFR (MDRD) Af Amer 78 Est GFR (MDRD) Non-Af 64 BUN/Creatinine Ratio 19.7 Glucose 335 H Hemoglobin A1c Calcium 8.5 Troponin I < 0.015 Triglycerides Cholesterol LDL Cholesterol VLDL Cholesterol HDL Cholesterol 02/18/19 02/19/19 18:06 05:38 WBC RBC Hgb Hct MCV MCH MCHC RDW RDW Differential Plt Count MPV Immature Gran % (Auto) Neut % (Auto) Lymph % (Auto) [place] % (Auto) Eos % (Auto) Baso % (Auto) Absolute Neuts (auto) Absolute Lymphs (auto) PT INR APTT Sodium Potassium Chloride Carbon Dioxide Anion Gap BUN Creatinine Estim Creat Clear Calc Est GFR (MDRD) Af Amer Est GFR (MDRD) Non-Af BUN/Creatinine Ratio Glucose Hemoglobin A1c 9.8 H Calcium Troponin I Triglycerides 378 H Cholesterol 139 LDL Cholesterol 37 VLDL Cholesterol 76 H HDL Cholesterol 26 L POC Glucose 02/19/19 02/19/19 02/19/19 11:18 06:38 00:10 POC Glucose 147 H 206 H 352 H 02/18/19 20:07 POC Glucose 326 H Assessment/Plan All Active Problems CVA (cerebral vascular accident) (Acute) Stroke-like symptoms (Acute) Stroke (Acute) Hyperglycemia (Acute) Tachyarrhythmia (Acute) The patient is a 63 year old M with PMH HTN, HLD, DM admitted with acute onset left-sided numbness. Stroke alert was called on admission. Telemetry stroke was done by the neurologist from [facility] it was decided that the patient was not a TPA candidate as he was out of the TPA window. Per patient he started having left-sided numbness starting yesterday 02/19/2019 at around 1 PM and he presented to the ED about 7 hours later. On admission per ED documentation his NIHSS was 4 initially which later on improved to 1. At present patient denies any head ache dizziness focal motor weakness, sensory loss, speech disturbances or visual disturbances. Per patient his left-sided numbness has improved and per patient he is at baseline at present. Per patient he lives alone, denies any frequent falls, does not use cane or walker to ambulate, does drive and does not need any assistance with this ADLs. He is on aspirin at baseline. MRI brain done on [facility] showed small right thalamic acute infarct. 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 Patient Acute right thalamic infarct Basilar artery stenosis None Plan ?Aspirin 81 mg p.o. once daily. Start Plavix 75 mg p.o. once daily. Dual antiplatelets for 3 months given intracranial stenosis (mid basilar stenosis) and then switch to single antiplatelet with aspirin. Bleeding risks as discussed in detail with the patient. ?Lipitor 80 mg p.o. 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 ?Avoid hypotension -Frequent neurochecks -Recommend 30 day event recorder ?PT/OT ?GI/DVT prophylaxis ?Fall precautions ?Further medical management per hospitalist team ?Follow-up with neurology as outpatient in 2 to 3 weeks ?Please call with questions if any ?Thank you for allowing us to participate in patient's care and management Code Visit Inpatient E&M: [id number] Init Hosp L3
[2019-02-19 16:06] LABS: Bedside Glucose 220 mg/dL (70-110)
[2019-02-19] MEDS: Clopidogrel Bisulfate 75 MG Tablet PO (16:40)
--- NOTE | 2019-02-19 19:50 | NURSING ---
THIS RN INITIAL NIHSS LATE D/T DAYSHIFT RN NOT COMPLETING NIHSS AT SCHEDULED TIME OF 533
[2019-02-19 22:25] LABS: Bedside Glucose 200 mg/dL (70-110)
[2019-02-20] MEDS: MELATONIN 3 MG TABLET PO (00:02)
[2019-02-20 02:59] VITALS: PULSE 72
[2019-02-20 03:50] VITALS: BP 144/67; PULSE 77; RESP 14; TEMP 36.6; O2SAT 97
[2019-02-20 06:35] VITALS: O2SAT 95
[2019-02-20 07:00] VITALS: PULSE 65
[2019-02-20 07:00] LABS: Bedside Glucose 73 mg/dL (70-110)
[2019-02-20 07:00] LABS: Bedside Glucose 51 mg/dL (70-110)
[2019-02-20] MEDS: Clopidogrel Bisulfate 75 MG Tablet PO (07:48)
[2019-02-20] MEDS: Gabapentin 100 MG Capsule PO (07:48)
[2019-02-20] MEDS: Aspirin 81 MG TAB.CHEW PO (07:48)
[2019-02-20] MEDS: Enoxaparin 40 MG/0.4 ML Syringe SC (07:48)
[2019-02-20 07:50] VITALS: BP 153/75; PULSE 63; RESP 14; TEMP 36.8; O2SAT 100
--- NOTE | 2019-02-20 09:27 | CASEMGMT ---
BERKLEY RITTER Note: message received from PAULINO Fraser. States recommendation is for home and if pt is agreeable, could recommend Outpt therapy. BERKLEY RITTER called to Idania RITTER to update. Andreea SCHREIBERN RN ACM
--- NOTE | 2019-02-20 09:52 | PCM.DC ---
- Discharge Diagnoses Current Active Problems: Current Active and Chronic Problems CVA (cerebral vascular accident) (Acute) Stroke-like symptoms (Acute) Stroke (Acute) You will use the following diet at home:: Calorie/Carbohydrate Controlled (specify 1200, 1400, etc) - 1800 radha Your food should be the consistency of: Regular Your liquids should be the consistency of: Regular/Thin Discharge Activity: Return to Normal Activity Weight Bearing Status: Full weight bearing Allergies/Adverse Reactions: Allergies metformin [From Glucophage] Adverse Reaction (Verified 02/18/19 19:55) Abd cramps/diarrhea Medications to take at Discharge metFORMIN (XR) [Glucophage Xr] 500 mg PO BID 10/06/15 Insulin Aspart [Novolog Flexpen] See Protocol SC QHS 09/04/16 Insulin Glargine,Hum.rec.anlog [Basaglar Kwikpen U-100] 54 unit SQ QHS 06/23/17 Gabapentin [Neurontin] 100 mg PO DAILY 05/06/18 Multivitamin [Daily Multiple Vitamin] 1 each PO DAILY 05/06/18 Aspirin 1 tab PO DAILY 02/18/19 Ibuprofen 800 mg PO 4X/DAY PRN 02/18/19 Metoprolol Tartrate [Lopressor (beta yue)] 50 mg PO BID 02/18/19 Aspirin [Aspirin, Baby] 81 mg PO DAILY@0800 tab.chew 02/20/19 Atorvastatin Calcium [Lipitor] 80 mg PO QHS #30 tab 02/20/19 Clopidogrel Bisulfate [Plavix] 75 mg PO DAILY #30 tab 02/20/19 Lisinopril 20 mg PO DAILY #0 02/20/19 The following prescriptions were given: Atorvastatin Calcium [Lipitor] 80 mg PO QHS #30 tab Transmission Status: Pending to [facility]30 Clopidogrel Bisulfate [Plavix] 75 mg PO DAILY #30 tab Transmission Status: Pending to [facility] Primary Care Physician: Vera Lucas MD [Primary Care Provider] - Please follow up with your Primary Care Physician in: in 7-10 days Test Results: Test results from this visit will be discussed in further detail at your follow-up appointment, if applicable. Please Follow Up With: Howard Jimenez MD When: 3 weeks-call for appointment
--- NOTE | 2019-02-20 10:25 | PCM.PN.NEU ---
Patient Problems: Active and Suspected Problems CVA (cerebral vascular accident) (Acute) Stroke-like symptoms (Acute) Stroke (Acute) Subjective: No issues overnight - Physical Exam General: Alert HEENT: Normocephalic Neck: Supple Lungs: Normal air movement Cardiovascular: Normal S1, Normal S2 Abdomen: Bowel Sounds Present Extremities: No cyanosis Neurological: - - Conscious, alert, CN II through XII grossly intact, power 5 x 5 all 4 extremities, no sensory loss at present, no cerebellar signs, gait deferred, no dysarthria/aphasia, Reflexes + B/L B/S/T/K/A, NIHSS 0 at present, mRS 0 at baseline Psych/Mental Status: Normal Affect Vital Signs Temp Pulse Resp BP Pulse Ox 98.2 F 63 14 153/75 H 100 02/20/19 07:50 02/20/19 07:50 02/20/19 07:50 02/20/19 07:50 02/20/19 07:50 Oxygen Delivery Method Room Air Weight: 75.5 kg Body Mass Index (BMI) 24.5 Finger Stick Blood Glucose 326 Intake and Output for Last 24 Hours 02/18/19 02/19/19 02/20/19 23:59 23:59 23:59 Intake Total 1140 / 1140 240 / 240 Balance 1140 / 1140 240 / 240 POC Glucose 02/20/19 02/20/19 02/19/19 06:55 06:39 22:02 POC Glucose 73 51 L 200 H 02/19/19 02/19/19 16:00 11:18 POC Glucose 220 H 147 H Medical Necessity - Tobacco Use Smoking Status: Former smoker Tobacco Use: Cigarettes Assessment/Plan All Active Problems CVA (cerebral vascular accident) (Acute) Stroke-like symptoms (Acute) Stroke (Acute) Hyperglycemia (Acute) Tachyarrhythmia (Acute) The patient is a 63 year old M with PMH HTN, HLD, DM admitted with acute onset left-sided numbness. Stroke alert was called on admission. Telemetry stroke was done by the neurologist from [facility] it was decided that the patient was not a TPA candidate as he was out of the TPA window. Per patient he started having left-sided numbness 02/19/2019 at around 1 PM and he presented to the ED about 7 hours later. On admission per ED documentation his NIHSS was 4 initially which later on improved to 1. At present patient denies any headache dizziness focal motor weakness, sensory loss, speech disturbances or visual disturbances. Per patient his left-sided numbness has improved and per patient he is at baseline at present. Per patient he lives alone, denies any frequent falls, does not use cane or walker to ambulate, does drive and does not need any assistance with this ADLs. He is on aspirin at baseline. MRI brain done on admission showed small right thalamic acute infarct. 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 Patient Acute right thalamic infarct-likely secondary to small vessel disease Basilar artery stenosis None Plan ?Aspirin 81 mg p.o. once daily. Plavix 75 mg p.o. once daily. Dual antiplatelets for 3 months given intracranial stenosis (mid basilar stenosis) and then switch to single antiplatelet with aspirin. Bleeding risks as discussed in detail with the patient. ?Lipitor 80 mg p.o. 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 ?PT/OT ?GI/DVT prophylaxis ?Fall precautions ?Further medical management per hospitalist team ?Follow-up with neurology as outpatient in 2 to 3 weeks ?Please call with questions if any ?Thank you for allowing us to participate in patient's care and management
[2019-02-20 10:38] VITALS: BMI 24.5
--- NOTE | 2019-02-20 11:29 | CASEMGMT ---
BERKLEY RITTER NOTE: Reviewed PT/OT notes. Additional therapy recommended. Spoke with pt who states he is interested in OP therapy. Script obtained from Dr Rhoades for OP PT/OT eval and treat and given to pt. Pt made aware he can take to OP location of his choice and they can determine financials and make appts for him. Pt voices understanding. Pt denies having any questions. Ruddy NEWSOME RN CM
--- NOTE | 2019-02-21 15:53 | CASEMGMT ---
BERKLEY RITTER discharge f/u phone call LACE: 12 Strata: 4 Discharge date: 02/20/19 Call date: 02/21/19 Call time: [id number] Duration: 3 minutes Admission dx: Acute lacunar infarct Pt states has been doing 'ok' since discharge. Pt states has not picked up meds from [facility] yet but states has someone to get them for him and states he is taking care of it. Pt states has one f/u appt set up and is working on the other one. Pt states he will also set up OP therapy. Pt states no questions regarding discharge instructions/medications at this time. Pt states no suggestions for [facility] at this time. Pt aware he can call back with any further questions/concerns/needs. SStaten BERKLEY RITTER
--- NOTE | 2019-02-23 09:05 | DS.PCM_ITS ---
Discharge Date and Diagnosis Date of Admission: 02/18/19 Date of Discharge: 02/20/19 - Primary Discharge Diagnosis #1 acute right thalamic infarct Canary to small vessel disease #2 type 2 diabetes-uncontrolled #3 hyperlipidemia #4 essential hypertension - Secondary Discharge Diagnosis Chronic Problems HLD (hyperlipidemia) (Chronic) Hypercholesteremia (Chronic) Type II diabetes mellitus, uncontrolled (Chronic) Benign hypertension (Chronic) Hospital Course and Treatment Operations: None Procedures: 2-D Echocardiogram Summary of Care Provided: The patient is a 63 year old M was seen in the emergency room at [facility] with chief complaint of left facial numbness and difficulty with his speech. Stroke team was initiated on the patient shortly after his arrival but it was agreed that the patient was outside the window for TPA due to the fact he presented to the ER 7 hours after onset of symptoms. Patient's NIH stroke score on initial evaluation was for, CT of the brain was performed that showed no acute bleed, there was evidence of stable old lacunar infarcts within the basal ganglia. Lab was remarkable for hemoglobin of 11.5, BUN was elevated at 24, glucose was elevated at 335, and troponin was less than 0.015. Patient was admitted to PCU for an acute stroke, NIH scores were monitored, he was seen in consultation by cardiology, PT, OT, and speech therapy. Echocardiogram was performed which showed a normal EF without evidence of thrombus. MRI was performed which showed a small right thalamic acute infarct. 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 Patient was treated with a statin, aspirin, and Plavix. On 02/20/2019, patient was seen and examined: On examination he appeared in good health and spirits. Vital signs as documented. Skin warm and dry and without overt rashes. Neck without JVD. Lungs clear. Heart exam notable for regular rhythm, normal sounds and absence of murmurs, rubs or gallops. Abdomen unremarkable and without evidence of organomegaly, masses, or abdominal aortic enlargement. Extremities nonedematous. Neuro: Cranial nerves II through XII are grossly intact, no focal motor deficits were noted, sensation to light touch and pinprick intact. Psych: Patient is alert and oriented x3, he does not appear anxious or depressed On 02/20/2019, patient was seen and examined and felt to be in stable condition for discharge home, he was set up with a 30-day Holter monitor at the time of discharge. - Physical Exam Vital Signs Temp Pulse Resp BP Pulse Ox 98.2 F 63 14 153/75 H 100 02/20/19 07:50 02/20/19 07:50 02/20/19 07:50 02/20/19 07:50 02/20/19 07:50 Oxygen Delivery Method Room Air Weight: 75.5 kg Body Mass Index (BMI) 24.5 Finger Stick Blood Glucose 326 Discharge Activity: Return to Normal Activity Weight Bearing Status: Full weight bearing Home Medications: Medications to take at Discharge metFORMIN (XR) [Glucophage Xr] 500 mg PO BID 10/06/15 Insulin Aspart [Novolog Flexpen] See Protocol SC QHS 09/04/16 Insulin Glargine,Hum.rec.anlog [Basaglar Kwikpen U-100] 54 unit SQ QHS 06/23/17 Gabapentin [Neurontin] 100 mg PO DAILY 05/06/18 Multivitamin [Daily Multiple Vitamin] 1 each PO DAILY 05/06/18 Aspirin 1 tab PO DAILY 02/18/19 Ibuprofen 800 mg PO 4X/DAY PRN 02/18/19 Metoprolol Tartrate [Lopressor (beta yue)] 50 mg PO BID 02/18/19 Aspirin [Aspirin, Baby] 81 mg PO DAILY@0800 tab.chew 02/20/19 Atorvastatin Calcium [Lipitor] 80 mg PO QHS #30 tab 02/20/19 Clopidogrel Bisulfate [Plavix] 75 mg PO DAILY #30 tab 02/20/19 Lisinopril 20 mg PO DAILY #0 02/20/19 Following Prescrptions Were Given to Patient: Atorvastatin Calcium [Lipitor] 80 mg PO QHS #30 tab Transmission Status: Received by [facility] #30 Clopidogrel Bisulfate [Plavix] 75 mg PO DAILY #30 tab Transmission Status: Received by [facility] #30 Primary Care Physician: Vera Lucas MD [Primary Care Provider] - Please follow up with your Primary Care Physician in: in 7-10 days Please Follow Up With: Howard Jimenez MD When: 3 weeks-call for appointment Please Follow Up With: Vera Lucas MD Disposition: Home Minutes spent on discharge:: 32 Patient Condition:: Stable Medical Necessity - Tobacco Use Smoking Status: Former smoker Tobacco Use: Cigarettes Meaningful Use Info Meaningful Use Diagnoses (Choose all that apply): Ischemic CVA - CVA Therapy Assessed for PT,OT and/or ST?: Yes - Ischemic Stroke Antithrombotic order at d/c?: Yes Dx of Atrial fib/flutter?: No Anticoagulant at discharge?: No Reason anticoagulant not ordered: Treatment not Indicated Statins at discharge?: Yes Primary Dx Acute Ischemic CVA?: Yes IV tPA ordered during stay?: No Reason IV t-PA not ordered: Treatment not Indicated Code Visit Inpatient E&M: [id number] Disch Hosp
== END 2019-02-20 10:50 | disposition home or self-care (01) | DRG 45 ==
LOC: ED 22:08 → PCU 22:26
PROVIDERS: Internal Medicine; Admitting Provider Hospitalist; Emergency Provider Emergency Medicine; Family Provider Internal Medicine; PCP Internal Medicine; Referring Provider Hospitalist; Visit Provider Internal Medicine
DX: I63.81 Other cerebral infarction due to occlusion or stenosis of small artery (principal); I10 Essential (primary) hypertension; E78.5 Hyperlipidemia, unspecified; R47.1 Dysarthria and anarthria; R20.0 Anesthesia of skin; R29.704 NIHSS score 4; E11.65 Type 2 diabetes mellitus with hyperglycemia; I65.1 Occlusion and stenosis of basilar artery; Z79.4 Long term (current) use of insulin; F17.210 Nicotine dependence, cigarettes, uncomplicated; Z79.82 Long term (current) use of aspirin; E78.1 Pure hyperglyceridemia
CPT/HCPCS: 36415; 70450; 70544; 70549; 70551; 71045; 80048; 80061; 82962; 83036; 84484; 85025; 85610; 85730; 92507; 92523; 92526; 92610; 93005; 93306; 97162; 97166; 99285; A9575; A4216

== ENCOUNTER 2019-03-04 17:12 | Inpatient (IN) | payer MEDICAID, SELFPAY ==
[2019-03-04] VITALS (7 sets, daily range): BP systolic 154–174; BP diastolic 72–78; PULSE 61–66; RESP 16–18; TEMP 36.6–37; O2SAT 97–99; BMI 24.5; BMI 24.3
--- NOTE | 2019-03-04 17:44 | EKG12_ITS ---
Test Reason : 13 SEC PAUSE Blood Pressure : / mmHG Vent. Rate : 066 BPM Atrial Rate : 066 BPM P-R Int : 212 ms QRS Dur : 092 ms QT Int : 430 ms P-R-T Axes : 003 -19 -11 degrees QTc Int : 450 ms Sinus rhythm with 1st degree A-V block Voltage criteria for left ventricular hypertrophy Nonspecific T-Wave Abnormality Abnormal ECG Confirmed by ANNALISA VILLA, NINI ([id number]), editorial writer ROCKY LO ([id number]) on 03/06/2019 10:49:48 AM Referred By: Mekhi Berrios Confirmed By:NINI FANG MD
--- NOTE | 2019-03-04 17:51 | PCM.CONS.C ---
Reason for Consult Date of Consultation: 03/04/19 Reason for Consultation: Abnormal cardiac rhythm strip. History of Present Illness: The patient is a 63 year old M was seen in the emergency room at [facility] last week with chief complaint of left facial numbness and difficulty with his speech. Stroke team was initiated on the patient shortly after his arrival but it was agreed that the patient was outside the window for TPA due to the fact he presented to the ER 7 hours after onset of symptoms. Patient's NIH stroke score on initial evaluation was for, CT of the brain was performed that showed no acute bleed, there was evidence of stable old lacunar infarcts within the basal ganglia. Lab was remarkable for hemoglobin of 11.5, BUN was elevated at 24, glucose was elevated at 335, and troponin was less than 0.015. Patient was admitted to PCU for an acute stroke, NIH scores were monitored, he was seen in consultation by cardiology, PT, OT, and speech therapy. Echocardiogram was performed which showed a normal EF without evidence of thrombus. MRI was performed which showed a small right thalamic acute infarct. 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 Patient was treated with a statin, aspirin, and Plavix. A 30-day event monitor was placed at the time of discharged. Yesterday were notified about the significant pauses noted on the 30-day event monitor of over 10 seconds. It is not clear whether the patient was symptomatic. The emergency medical squad was asked to bring him to the emergency room today. Here today he has no symptoms. He denies any chest pain or shortness breath or paroxysmal nocturnal dyspnea pedal edema he has had no syncopal episodes. Past Medical History Allergies/Adverse Reactions: Allergies metformin [From Glucophage] Adverse Reaction (Verified 02/18/19 19:55) Abd cramps/diarrhea Home Medications: Ambulatory Orders Medication Instructions Recorded metFORMIN (XR) [Glucophage Xr] 500 mg PO BID 10/06/15 Insulin Aspart [Novolog Flexpen] See Protocol SC QHS 09/04/16 Insulin Glargine,Hum.rec.anlog 54 unit SQ QHS 06/23/17 [Basaglar Kwikpen U-100] Gabapentin [Neurontin] 100 mg PO DAILY 05/06/18 Multivitamin [Daily Multiple 1 each PO DAILY 05/06/18 Vitamin] Ibuprofen 800 mg PO 4X/DAY PRN 02/18/19 Aspirin [Aspirin, Baby] 81 mg PO DAILY@0800 tab.chew 02/20/19 Atorvastatin Calcium [Lipitor] 80 mg PO QHS #30 tab 02/20/19 Clopidogrel Bisulfate [Plavix] 75 mg PO DAILY #30 tab 02/20/19 Lisinopril 20 mg PO DAILY #0 02/20/19 Past Medical History (Chronic Problems): Chronic Problems HLD (hyperlipidemia) (Chronic) Hypercholesteremia (Chronic) Type II diabetes mellitus, uncontrolled (Chronic) Benign hypertension (Chronic) Surgical History: - - Carpal tunnel surgery Lives: Alone Smoking Status: Former smoker Alcohol: None Drugs: None Review of Systems - Review of Systems General: Denies: Fever, Night Sweats, Fatigue HEENT: Denies: Vision Change Cardiovascular: Denies: Chest Discomfort, Shortness of Breath, Orthopnea, PND, Peripheral Edema, Palpitations, Lightheadedness, Dizziness, Near Syncope, Syncope Respiratory: Denies: Cough, Sputum Production, Hemoptysis Gastrointestinal: Denies: Hematemesis, Hematochezia, Melena Genitourinary: Denies: Dysuria, Hematuria Muscoloskeletal: Denies: Myalgias Skin: Denies: Rash Neurological: Reports: History of TIA, History of CVA Psychiatric: Denies: Anxiety Endocrine: Denies: Heat Intolerance Hematologic/ Lymphatic: Denies: Lymph Node Enlargement Subjectve: Pleasant gentleman in no apparent distress lying in bed Objective: Vital Signs Temp Pulse Resp BP Pulse Ox 97.8 F 66 18 174/78 H 99 03/04/19 17:13 03/04/19 17:13 03/04/19 17:13 03/04/19 17:13 03/04/19 17:13 Weight: 166 lb Body Mass Index (BMI) 24.5 Finger Stick Blood Glucose 326 General: Awake, Alert, Oriented x 3 HEENT: PERRL, EOMI, Sclera Non Icteric Neck: Supple, Good ROM, No Lymph Node Enlargement Lungs: Clear to auscultation Cardiovascular: Regular Rhythm, Normal S1, Normal S2, No Murmurs, No Rubs, No Gallops Vascular: No Carotid Bruits, Normal Femoral Pulses, Normal Radial Pulses, Normal Dorsalis Pedal Pulse, Normal Posterior Tibial Pulses Abdomen: Bowel Sounds Present, Soft, Non Tender, No HSM, No Organomegaly Extremities: No Cyanosis, No Clubbing, No edema Musculoskeletal: No Erythema Skin: No Rashes Lymphatic: No Lymph Node Enlargement Neurological: No Focal Motor or Sensory Deficit Psych/Mental Status: Appropriate Rhythm: EKG: Normal sinus rhythm with no acute changes ECHO: Preserved left ventricular systolic function, estimated EF 55% Stress Test: Cardiac Cath: PCI: CT Surgery: Holter monitor: EPS: PPM: CXR: Chest CT Scan: Assessment/Plan 1. Abnormal cardiac rhythm Patient presents with abnormal cardiac rhythm which is significant for unprovoked 13-second pause on his event monitor. It is likely that this was responsible for his presentation of apparent cerebrovascular accident a few weeks ago. He is on no rate limiting medications. His echocardiogram demonstrated preserved ejection fraction. After evaluation of all the data it appears that he is a candidate for a permanent pacemaker implantation. The risk benefits alternatives have been explained to him in the presence of nurses he understands and agrees to proceed. Thank you for allowing me to participate in the care of your patient. Please don't hesitate to call if any issues arise
[2019-03-04 18:16] LABS: Absolute Lymphocyte Count 1.87 X10^3/uL (0.83-4.51); Absolute Neutrophil Count 4.5 X10^3/uL (2.0-7.7); Basophil# 0.02 X10^3/uL; Basophil% 0.3 % (0-1); Eosinophil# 0.25 X10^3/uL; Eosinophils% 3.5 % (0-5); Hematocrit 32.1 % (40-54); Hemoglobin 10.9 g/dL (13.0-16.5); Lymphocyte # 1.87 X10^3/ul (4.0); Lymphocyte % 25.9 % (19-41); Mean Corpuscular Hgb 27.7 pg (27.0-32.0); Mean Corpuscular Volume 81.7 fL (80-94); Mean Platelet Vol. 9.6 fl (6.2-12.0); Monocyte# 0.58 X10^3/uL; NRBC Flagged by Analyzer 0 % (0-5); Neutrophil # 4.45 X10^3/uL (2.7-7.7); Neutrophil % 61.7 % (47-70); Platelet Count 236 K/mm3 (150-450); RBC Distribution Width CV 12.8 % (11.6-14.6); RBC Distribution Width SD 38.2 fl (35.1-43.9); Red Blood Count 3.93 M/mm3 (4.6-6.2); White Blood Count 7.2 K/mm3 (4.4-11.0)
[2019-03-04 18:30] LABS: Anion Gap 9 (5-15); BUN 45 mg/dL (7-18); BUN/Creat Ratio 33.1 RATIO (10-20); Calcium,Total 8.4 mg/dL (8.5-10.1); Chloride 108 mmol/L (98-107); Creatinine, Serum 1.36 mg/dL (0.70-1.30); EST Glomerular Filtration Rate 57 mL/min (>60); Est Glom Filt Rate - Afr Amer 69 mL/min (>60); Estimated Creatinine Clearance 57.04 ml/min; Glucose 157 mg/dL (74-106); Potassium 4.3 mmol/L (3.5-5.1); Sodium Level 142 mmol/L (136-145)
--- NOTE | 2019-03-04 19:26 | ED.VIS.GEN ---
History of Present Illness Chief Complaint: Chest Other Informant: Patient Narrative: Patient was discharged from the hospital 1 to 2 weeks ago after a TIA, he had a Holter monitor on, he was sleeping today when the company called him and advised him to come to the hospital because he had a 13-second sinus pause. The patient states he did not notice anything when he woke up, and has been doing well since he was discharged from the hospital. He denies any chest pain or shortness of breath. He has had no residual neurologic effects since his discharge. He had a bout of diarrhea today but otherwise review of systems is pretty unremarkable. - Past Medical History (1) CVA (cerebral vascular accident) Status: Chronic (2) Benign hypertension Status: Chronic (3) HLD (hyperlipidemia) Status: Chronic (4) Type II diabetes mellitus, uncontrolled Status: Chronic Past Medical History - Allergies and Home Meds Allergies/Adverse Reactions: Allergies metformin [From Glucophage] Adverse Reaction (Verified 02/18/19 19:55) Abd cramps/diarrhea Primary Care Physician: Vera Lucas MD [Primary Care Provider] - Surgical History: - - Carpal tunnel surgery Lives: Alone, - - Sedentary lifestyle Smoking Status: Former smoker Alcohol: None Drugs: None Review of Systems General: Denies: Chills, Fever, Sweats Eyes: Denies: Visual changes - bilaterally, Diplopia ENT: Denies: Rhinorrhea, Sore throat Cardiovascular: Denies: Chest pain, Palpitations Respiratory: Denies: Dyspnea, Cough, Dyspnea on exertion Gastrointestinal: Reports: Diarrhea - X1 this morning, loose. Denies: Abdominal pain, Nausea, Vomiting, Melena, Hematochezia Genitourinary: Denies: Dysuria, Hematuria, Frequency Musculoskeletal: Denies: Back pain, Swelling, Extremity Pain Skin: Denies: Rash, Wounds Neurological: Denies: Headache, Weakness, Numbness Physical Exam Vital Signs/Narrative: Vital Signs Temp Pulse Resp BP Pulse Ox 03/04/19 19:00 16 167/72 H 97 03/04/19 18:13 65 17 154/76 H 97 03/04/19 17:13 97.8 F 66 18 174/78 H 99 Inital Vital Signs reviewed: Yes General: Well nourished, Well developed, No Acute Distress Head: Normocephalic, Atraumatic Eyes: Perrl, EOMI ENT: Moist mucous membranes, No rhinorrhea Neck: Supple, Nontender Cardiovascular: Regular rate, Regular rhythm, No murmurs Respiratory: No distress, CTA bilaterally, Chest nontender Abdomen: Soft, Nontender, Nondistended, Normal bowel sounds Back: Nontender, Normal Inspection Extremities: Nontender, No edema. Negative for: Calf Tenderness Skin: Normal color, No rash, No Trauma Neurological: Alert, Oriented x3, Cranial nerves II-XII grossly intact, Normal Strength, Normal Sensation Psychological: Normal affect, Normal Mood Diagnostic/Tx/Re-eval Laboratory Results 03/04/19 03/04/19 17:33 17:33 WBC 7.2 RBC 3.93 L Hgb 10.9 L Hct 32.1 L MCV 81.7 MCH 27.7 MCHC 34.0 RDW Std Deviation 38.2 RDW Coeff of Harry 12.8 Plt Count 236 MPV 9.6 Immature Gran % (Auto) 0.600 Neut % (Auto) 61.7 Lymph % (Auto) 25.9 [place] % (Auto) 8.0 Eos % (Auto) 3.5 Baso % (Auto) 0.3 Absolute Neuts (auto) 4.5 Absolute Lymphs (auto) 1.87 Nucleated RBC % 0 Sodium 142 Potassium 4.3 Chloride 108 H Carbon Dioxide 25.0 Anion Gap 9 BUN 45 H Creatinine 1.36 H Estim Creat Clear Calc 57.04 Est GFR (MDRD) Af Amer 69 Est GFR (MDRD) Non-Af 57 L BUN/Creatinine Ratio 33.1 H Glucose 157 H Calcium 8.4 L Troponin I < 0.015 - Rhythm Strip Rhythm Strip: Sinus Rhythm Rate: 70 Ectopy: None - EKG Initial EKG Interpretation: Sinus Rhythm, No Acute Injury Pattern, - - 1st deg AVB - Medical Decision Making Labs show some renal insufficiency but are otherwise unremarkable. He had no clinical or telemetry events while in the emergency department. His EKG shows a first-degree AV block but is otherwise okay. Discussed with Dr. Harris who advises admission to hospitalist and planning for pacemaker placement. We will see the patient in consultation. ED Disposition - Plan for ED Patient: Disposition: Acute Care Hospital [facility] Diagnosis: Sinus pause Referrals: Vera Lucas MD [Primary Care Provider] -
--- NOTE | 2019-03-04 19:44 | PCM.HP.STD ---
Problem List (1) Sinus pause Status: Acute (2) HLD (hyperlipidemia) Status: Chronic (3) Hypercholesteremia Status: Chronic (4) Type II diabetes mellitus, uncontrolled Status: Chronic (5) Tachyarrhythmia Status: Chronic (6) Benign hypertension Status: Chronic History of Present Illness Date of Admission: 03/04/19 Chief Complaint: sinus pause 13 seconds The patient is a 63 year old male patient who presents to the ER after his 30 day event monitor alerted medical control of a 13 second cardiac pause. The patient denies chest pain or shortness of breath. He remembers taking a Pires but when he woke up he was in the ambulance on the way to the hospital. He recently was worked up for stroke like symptoms and he has some residual numbness of both hands but otherwise no neurologic deficits. The patient has been resting comfortably since arrival and has been seen by cardiology for evaluation and a pacemaker has been considered as the next step in his treatment. The patient will be admitted to the progressive care unit for cardiac monitoring made n.p.o. at midnight pending possible pacemaker placement. Past Medical History Past Medical History (Chronic Problems): Chronic Problems CVA (cerebral vascular accident) (Chronic) HLD (hyperlipidemia) (Chronic) Hypercholesteremia (Chronic) Type II diabetes mellitus, uncontrolled (Chronic) Tachyarrhythmia (Chronic) Benign hypertension (Chronic) Allergies metformin [From Glucophage] Adverse Reaction (Verified 02/18/19 19:55) Abd cramps/diarrhea Home Medications: Ambulatory Orders Medication Instructions Recorded metFORMIN (XR) [Glucophage Xr] 500 mg PO BID 10/06/15 Insulin Aspart [Novolog Flexpen] See Protocol SC QHS 09/04/16 Insulin Glargine,Hum.rec.anlog 54 unit SQ QHS 06/23/17 [Basaglar Kwikpen U-100] Gabapentin [Neurontin] 100 mg PO DAILY 05/06/18 Multivitamin [Daily Multiple 1 each PO DAILY 05/06/18 Vitamin] Ibuprofen 800 mg PO 4X/DAY PRN 02/18/19 Aspirin [Aspirin, Baby] 81 mg PO DAILY@0800 tab.chew 02/20/19 Atorvastatin Calcium [Lipitor] 80 mg PO QHS #30 tab 02/20/19 Clopidogrel Bisulfate [Plavix] 75 mg PO DAILY #30 tab 02/20/19 Lisinopril 20 mg PO DAILY #0 02/20/19 Surgical History: - - Carpal tunnel surgery Lives: Alone, - - Sedentary lifestyle Smoking Status: Former smoker Alcohol: None Drugs: None - *Family History Maternal History Items: No pertinent history Review of Systems Constitutional: Denies: Chills, Fever, Weight Change HEENT: Denies: Head Aches, Sinus Congestion, Sinus Drainage Cardiovascular: Reports: Syncope. Denies: Chest Pain, Palpitations Respiratory: Denies: Cough, Shortness of breath at rest, Sputum production Gastrointestinal: Denies: Abdominal Pain, Nausea, Vomiting Genitourinary: Denies: Dysuria Musculoskeletal: Denies: Joint Pain, Joint Tenderness Skin: Denies: Rash, Wounds Neurological: Denies: Numbness, Tingling, Focal weakness Psychiatric: Denies: Anxiety, Depression, Homicidal Ideations, Suicidal Ideations Hematologic/ Lymphatic: Denies: Easy Bruising, Easy Bleeding VTE Information - Inpt Only VTE Present on Admission: No VTE Mechan Device Prophylaxis: None VTE Pharm Prophylaxis ordered?: Yes Patient Problems: Active and Suspected Problems Sinus pause (Acute) - Physical Exam General: Alert, Oriented x3, Cooperative HEENT: Atraumatic, Normocephalic Neck: Supple Lungs: Clear to auscultation, Normal air movement, No rhonchi, No wheeze, No rales Cardiovascular: Regular rate, Normal S1, Normal S2, No murmurs Abdomen: Bowel Sounds Present, Soft, Non Tender Extremities: No edema Skin: No rashes Musculoskeletal: No Tenderness to Palpation of Joints or Extremities Neurological: Neuro grossly intact Psych/Mental Status: Normal Affect, Appropriate Vital Signs Temp Pulse Resp BP Pulse Ox 97.8 F 65 16 167/72 H 97 03/04/19 17:13 03/04/19 18:13 03/04/19 19:00 03/04/19 19:00 03/04/19 19:00 Oxygen Delivery Method Room Air Weight: 166 lb Body Mass Index (BMI) 24.5 Finger Stick Blood Glucose 326 Laboratory Tests Past 24 Hrs 03/04/19 03/04/19 17:33 17:33 WBC 7.2 RBC 3.93 L Hgb 10.9 L Hct 32.1 L MCV 81.7 MCH 27.7 MCHC 34.0 RDW Std Deviation 38.2 RDW Coeff of Harry 12.8 Plt Count 236 MPV 9.6 Immature Gran % (Auto) 0.600 Neut % (Auto) 61.7 Lymph % (Auto) 25.9 [place] % (Auto) 8.0 Eos % (Auto) 3.5 Baso % (Auto) 0.3 Absolute Neuts (auto) 4.5 Absolute Lymphs (auto) 1.87 Nucleated RBC % 0 Sodium 142 Potassium 4.3 Chloride 108 H Carbon Dioxide 25.0 Anion Gap 9 BUN 45 H Creatinine 1.36 H Estim Creat Clear Calc 57.04 Est GFR (MDRD) Af Amer 69 Est GFR (MDRD) Non-Af 57 L BUN/Creatinine Ratio 33.1 H Glucose 157 H Calcium 8.4 L Troponin I < 0.015 Assessment/Plan All Active Problems Stroke-like symptoms (Acute) Stroke (Acute) Sinus pause (Acute) Hyperglycemia (Acute) Chronic Problems CVA (cerebral vascular accident) (Chronic) HLD (hyperlipidemia) (Chronic) Hypercholesteremia (Chronic) Type II diabetes mellitus, uncontrolled (Chronic) Tachyarrhythmia (Chronic) Benign hypertension (Chronic) Plan 1. Sinus pause of 13 seconds?admit patient to progressive care unit consult Dr. Harris, make n.p.o. at midnight, IV normal saline at 75 cc/h CBC BMP in the morning 2. DVT prophylaxis?low molecular weight heparin 3. Hypercholesterolemia?continue statin 4. Diabetes?add low dose sliding scale insulin every 6 hours when n.p.o. 5. Benign hypertension?continue routine home medication Code Visit Inpatient E&M: 21193 Init Hosp L2
[2019-03-04 21:42] LABS: Magnesium 1.9 mg/dL (1.6-2.6); Thyroid Stim Hormone (TSH) 1.66 uIU/mL (0.358-3.74)
[2019-03-04] MEDS: 0.9% Normal Saline 1,000 ML 75 ML IV (22:35)
[2019-03-04] MEDS: Atorvastatin Calcium 80 MG Tablet PO (22:43)
[2019-03-04] MEDS: Insulin Lispro 100 UNIT/ML INSULN.PEN SC (22:44)
[2019-03-04 22:51] LABS: Bedside Glucose 150 mg/dL (70-110)
[2019-03-05] VITALS (23 sets, daily range): BP systolic 113–162; BP diastolic 57–77; PULSE 62–87; RESP 14–68; TEMP 36.6–37; O2SAT 95–97
[2019-03-05 01:40] LABS: M R Staph aureus DNA By PCR Negative (Negative); Probe Check PASS; Specimen Processing Control PASS
[2019-03-05 06:46] LABS: Bedside Glucose 98 mg/dL (70-110)
[2019-03-05 07:10] LABS: Absolute Lymphocyte Count 2.15 X10^3/uL (0.83-4.51); Absolute Neutrophil Count 4.5 X10^3/uL (2.0-7.7); Basophil# 0.02 X10^3/uL; Basophil% 0.3 % (0-1); Eosinophil# 0.22 X10^3/uL; Eosinophils% 2.9 % (0-5); Hematocrit 29.5 % (40-54); Hemoglobin 9.9 g/dL (13.0-16.5); Lymphocyte # 2.15 X10^3/ul (4.0); Lymphocyte % 28.8 % (19-41); Mean Corp Hgb Conc 33.6 g/dL (32-36); Mean Corpuscular Hgb 27.4 pg (27.0-32.0); Mean Corpuscular Volume 81.7 fL (80-94); Monocyte# 0.57 X10^3/uL; Monocyte% 7.6 % (0-10); NRBC Flagged by Analyzer 0 % (0-5); Neutrophil # 4.45 X10^3/uL (2.7-7.7); Neutrophil % 59.7 % (47-70); Platelet Count 209 K/mm3 (150-450); RBC Distribution Width CV 13.1 % (11.6-14.6); RBC Distribution Width SD 38.3 fl (35.1-43.9); Red Blood Count 3.61 M/mm3 (4.6-6.2); White Blood Count 7.5 K/mm3 (4.4-11.0)
[2019-03-05 07:29] LABS: AST(SGOT) 12 U/L (15-37); Alanine Aminotransfer ALT/SGPT 17 U/L (16-61); Albumin, Serum 2.7 g/dL (3.2-5.0); Alkaline Phosphatase 100 U/L (45-117); Anion Gap 8 (5-15); BUN 36 mg/dL (7-18); Calcium,Total 8.2 mg/dL (8.5-10.1); Chloride 110 mmol/L (98-107); Creatinine, Serum 0.88 mg/dL (0.70-1.30); EST Glomerular Filtration Rate 94 mL/min (>60); Est Glom Filt Rate - Afr Amer 114 mL/min (>60); Estimated Creatinine Clearance 88.15 ml/min; Globulin 2.7 g/dL (2.2-4.2); Glucose 107 mg/dL (74-106); Potassium 3.5 mmol/L (3.5-5.1); Protein, Total 5.4 g/dL (6.4-8.2); Sodium Level 144 mmol/L (136-145)
[2019-03-05] MEDS: Gabapentin 100 MG Capsule PO (10:38)
[2019-03-05] MEDS: 0.9% Normal Saline 1,000 ML 75 ML IV ×2 (11:59→20:58)
[2019-03-05 12:06] LABS: Bedside Glucose 79 mg/dL (70-110)
--- NOTE | 2019-03-05 12:12 | PCM.PROGNOTE ---
<Tim Marquez - Last Filed: 03/05/19 12:12> Patient Problems: Active and Suspected Problems Sinus pause (Acute) Subjective: No complaints. Agreeable to pacer placement. No CP, SOB, palp, LH, dizzines. Feels somewhat tired. - Physical Exam General: Alert, Oriented x3, Cooperative HEENT: Atraumatic, PERRLA, EOMI, Normocephalic Neck: Supple, No JVD, Negative Carotid Bruits Lungs: Clear to auscultation, Normal air movement Cardiovascular: Regular rate, No murmurs Abdomen: Bowel Sounds Present, Soft, Non Tender Extremities: No edema, Capillary Refill Less than 3 Seconds Skin: No rashes, No breakdown Musculoskeletal: No Tenderness to Palpation of Joints or Extremities Neurological: Cranial nerves II-XII grossly intact Psych/Mental Status: Normal Affect, Appropriate, Alert and oriented to time, place, person, mood and affect Vital Signs Temp Pulse Resp BP Pulse Ox 98.2 F 66 15 161/73 H 97 03/05/19 11:47 03/05/19 11:47 03/05/19 11:47 03/05/19 11:47 03/05/19 11:47 Oxygen Delivery Method Room Air Weight: 164 lb 7.437 oz Body Mass Index (BMI) 24.3 Finger Stick Blood Glucose 326 Orthostatic Vital Signs Start: 03/05/19 05:51 Freq: q24h Status: Active Protocol: Activity Type Activity Date Activity User E-Sign Co-Sign Detail Recorded Client Recorded Date Recorded By Document 03/05/19 05:51 [email or web address] [id number] 03/05/19 05:57 [email or web address] 03/05/19 05:51 Orthostatic Vitals Standing -Blood Pressure (90/60-120/80) 141/69 H -Extremity Use Right Arm -Pulse Rate (60-100) 70 Sitting -Blood Pressure (90/60-120/80) 146/75 H -Extremity Use Right Arm -Pulse Rate (60-100) 66 Lying -Blood Pressure (90/60-120/80) 143/70 H -Extremity Use Right Arm -Pulse Rate (60-100) 65 Intake and Output for Last 24 Hours 03/03/19 03/04/19 03/05/19 23:59 23:59 23:59 Intake Total 1229 / 1229 Balance 1229 / 1229 Laboratory Tests Past 24 Hrs 03/04/19 03/04/19 03/04/19 17:33 17:33 21:00 WBC 7.2 RBC 3.93 L Hgb 10.9 L Hct 32.1 L MCV 81.7 MCH 27.7 MCHC 34.0 RDW Std Deviation 38.2 RDW Coeff of Harry 12.8 Plt Count 236 MPV 9.6 Immature Gran % (Auto) 0.600 Neut % (Auto) 61.7 Lymph % (Auto) 25.9 [place] % (Auto) 8.0 Eos % (Auto) 3.5 Baso % (Auto) 0.3 Absolute Neuts (auto) 4.5 Absolute Lymphs (auto) 1.87 Nucleated RBC % 0 Sodium 142 Potassium 4.3 Chloride 108 H Carbon Dioxide 25.0 Anion Gap 9 BUN 45 H Creatinine 1.36 H Estim Creat Clear Calc 57.04 Est GFR (MDRD) Af Amer 69 Est GFR (MDRD) Non-Af 57 L BUN/Creatinine Ratio 33.1 H Glucose 157 H Calcium 8.4 L Magnesium 1.9 Total Bilirubin AST ALT Alkaline Phosphatase Troponin I < 0.015 Total Protein Albumin Globulin Albumin/Globulin Ratio TSH 1.66 MRSA (PCR) 03/04/19 03/04/19 03/05/19 21:00 23:35 00:00 WBC RBC Hgb Hct MCV MCH MCHC RDW Std Deviation RDW Coeff of Harry Plt Count MPV Immature Gran % (Auto) Neut % (Auto) Lymph % (Auto) [place] % (Auto) Eos % (Auto) Baso % (Auto) Absolute Neuts (auto) Absolute Lymphs (auto) Nucleated RBC % Sodium Potassium Chloride Carbon Dioxide Anion Gap BUN Creatinine Estim Creat Clear Calc Est GFR (MDRD) Af Amer Est GFR (MDRD) Non-Af BUN/Creatinine Ratio Glucose Calcium Magnesium Total Bilirubin AST ALT Alkaline Phosphatase Troponin I < 0.015 < 0.015 Total Protein Albumin Globulin Albumin/Globulin Ratio TSH MRSA (PCR) Negative 03/05/19 03/05/19 05:19 05:19 WBC 7.5 RBC 3.61 L Hgb 9.9 L Hct 29.5 L MCV 81.7 MCH 27.4 MCHC 33.6 RDW Std Deviation 38.3 RDW Coeff of Harry 13.1 Plt Count 209 MPV 10.0 Immature Gran % (Auto) 0.700 Neut % (Auto) 59.7 Lymph % (Auto) 28.8 [place] % (Auto) 7.6 Eos % (Auto) 2.9 Baso % (Auto) 0.3 Absolute Neuts (auto) 4.5 Absolute Lymphs (auto) 2.15 Nucleated RBC % 0 Sodium 144 Potassium 3.5 Chloride 110 H Carbon Dioxide 26.0 Anion Gap 8 BUN 36 H Creatinine 0.88 Estim Creat Clear Calc 88.15 Est GFR (MDRD) Af Amer 114 Est GFR (MDRD) Non-Af 94 BUN/Creatinine Ratio 41.0 H Glucose 107 H Calcium 8.2 L Magnesium Total Bilirubin 0.40 AST 12 L ALT 17 Alkaline Phosphatase 100 Troponin I Total Protein 5.4 L Albumin 2.7 L Globulin 2.7 Albumin/Globulin Ratio 1.0 TSH MRSA (PCR) POC Glucose 03/05/19 03/05/19 03/04/19 11:57 06:43 22:38 POC Glucose 79 98 150 H Medical Necessity - Tobacco Use Smoking Status: Former smoker Assessment/Plan All Active Problems Sinus pause (Acute) 1. Sinus pause - no events on monitor overnight. Asymptomatic. Pacemaker today with Dr. Harris. 2. T2DM - SSI, metformin 3. HTN, HLD - BP elevated. Trend and adjust as needed. 4. Hx TIA - in retrospect, this could have been 2/2 #1. Asa (held), statin, plavix (held) 5. Normocytic anemia - no source of beleding. Trend. 6. Dehydration - resolved. DVT ppx: lovenox This patient was seen by Tim Marquez PA-C under the supervision of Doctor Darryl. <Chaim Paiz E - Last Filed: 03/05/19 13:04> - Physical Exam Vital Signs Temp Pulse Resp BP Pulse Ox 98.2 F 66 15 161/73 H 97 03/05/19 11:47 03/05/19 11:47 03/05/19 11:47 03/05/19 11:47 03/05/19 11:47 Oxygen Delivery Method Room Air Weight: 164 lb 7.437 oz Body Mass Index (BMI) 24.3 Finger Stick Blood Glucose 326 Orthostatic Vital Signs Start: 03/05/19 05:51 Freq: q24h Status: Active Protocol: Activity Type Activity Date Activity User E-Sign Co-Sign Detail Recorded Client Recorded Date Recorded By Document 03/05/19 05:51 [email or web address] [id number] 03/05/19 05:57 [email or web address] 03/05/19 05:51 Orthostatic Vitals Standing -Blood Pressure (90/60-120/80) 141/69 H -Extremity Use Right Arm -Pulse Rate (60-100) 70 Sitting -Blood Pressure (90/60-120/80) 146/75 H -Extremity Use Right Arm -Pulse Rate (60-100) 66 Lying -Blood Pressure (90/60-120/80) 143/70 H -Extremity Use Right Arm -Pulse Rate (60-100) 65 Intake and Output for Last 24 Hours 03/03/19 03/04/19 03/05/19 23:59 23:59 23:59 Intake Total 1229 / 1229 Balance 1229 / 1229 Laboratory Tests Past 24 Hrs 03/04/19 03/04/19 03/04/19 17:33 17:33 21:00 WBC 7.2 RBC 3.93 L Hgb 10.9 L Hct 32.1 L MCV 81.7 MCH 27.7 MCHC 34.0 RDW Std Deviation 38.2 RDW Coeff of Harry 12.8 Plt Count 236 MPV 9.6 Immature Gran % (Auto) 0.600 Neut % (Auto) 61.7 Lymph % (Auto) 25.9 [place] % (Auto) 8.0 Eos % (Auto) 3.5 Baso % (Auto) 0.3 Absolute Neuts (auto) 4.5 Absolute Lymphs (auto) 1.87 Nucleated RBC % 0 Sodium 142 Potassium 4.3 Chloride 108 H Carbon Dioxide 25.0 Anion Gap 9 BUN 45 H Creatinine 1.36 H Estim Creat Clear Calc 57.04 Est GFR (MDRD) Af Amer 69 Est GFR (MDRD) Non-Af 57 L BUN/Creatinine Ratio 33.1 H Glucose 157 H Calcium 8.4 L Magnesium 1.9 Total Bilirubin AST ALT Alkaline Phosphatase Troponin I < 0.015 Total Protein Albumin Globulin Albumin/Globulin Ratio TSH 1.66 MRSA (PCR) 03/04/19 03/04/19 03/05/19 21:00 23:35 00:00 WBC RBC Hgb Hct MCV MCH MCHC RDW Std Deviation RDW Coeff of Harry Plt Count MPV Immature Gran % (Auto) Neut % (Auto) Lymph % (Auto) [place] % (Auto) Eos % (Auto) Baso % (Auto) Absolute Neuts (auto) Absolute Lymphs (auto) Nucleated RBC % Sodium Potassium Chloride Carbon Dioxide Anion Gap BUN Creatinine Estim Creat Clear Calc Est GFR (MDRD) Af Amer Est GFR (MDRD) Non-Af BUN/Creatinine Ratio Glucose Calcium Magnesium Total Bilirubin AST ALT Alkaline Phosphatase Troponin I < 0.015 < 0.015 Total Protein Albumin Globulin Albumin/Globulin Ratio TSH MRSA (PCR) Negative 03/05/19 03/05/19 05:19 05:19 WBC 7.5 RBC 3.61 L Hgb 9.9 L Hct 29.5 L MCV 81.7 MCH 27.4 MCHC 33.6 RDW Std Deviation 38.3 RDW Coeff of Harry 13.1 Plt Count 209 MPV 10.0 Immature Gran % (Auto) 0.700 Neut % (Auto) 59.7 Lymph % (Auto) 28.8 [place] % (Auto) 7.6 Eos % (Auto) 2.9 Baso % (Auto) 0.3 Absolute Neuts (auto) 4.5 Absolute Lymphs (auto) 2.15 Nucleated RBC % 0 Sodium 144 Potassium 3.5 Chloride 110 H Carbon Dioxide 26.0 Anion Gap 8 BUN 36 H Creatinine 0.88 Estim Creat Clear Calc 88.15 Est GFR (MDRD) Af Amer 114 Est GFR (MDRD) Non-Af 94 BUN/Creatinine Ratio 41.0 H Glucose 107 H Calcium 8.2 L Magnesium Total Bilirubin 0.40 AST 12 L ALT 17 Alkaline Phosphatase 100 Troponin I Total Protein 5.4 L Albumin 2.7 L Globulin 2.7 Albumin/Globulin Ratio 1.0 TSH MRSA (PCR) POC Glucose 03/05/19 03/05/19 03/05/19 12:39 11:57 06:43 POC Glucose 84 79 98 03/04/19 22:38 POC Glucose 150 H Assessment/Plan Hospitalist note: I am seeing this patient in conjunction with Tim Marquez. I independently seen and examined the patient. Progress note above and imaging studies reviewed and I concur with the above treatment plan. Patient was admitted for asymptomatic prolonged sinus pause on a Holter monitor. He is asymptomatic. Denies any chest pain or shortness of breath. Denied dizziness or lightheadedness. Denies syncope or presyncope. His blood pressure slightly elevated, other vital signs are stable. He was evaluated by cardiology and plan for implantation for permanent pacemaker. - Physical Exam General: Alert, Oriented x3, Cooperative, No apparent distress. HEENT: Atraumatic, PERRLA, EOMI. Neck: Supple, No JVD, Negative Carotid Bruits, Trachea Midline, Thyroid Normal. Lungs: Clear to auscultation, Normal air movement, No rhonchi, No wheeze, No rales. Cardiovascular: Regular rate, Regular Rhythm, Normal S1, Normal S2, PMI Normal. Abdomen: Bowel Sounds Present, Soft, Non Tender, Non-Distended, No Hepato-splenomegaly. Extremities: No clubbing, No cyanosis, No edema Skin: No rashes, No breakdown Neurological: Neuro grossly intact Assessment and plan: #1 prolonged asymptomatic sinus pause: Patient denied any symptoms. Troponin negative x3. No acute ischemic change on EKG. Cardiology evaluate the patient and plan for implantation of permanent pacemaker today. Serum electrolytes and TSH were normal. #2 anemia: This is fairly acute. Baseline hemoglobin has been around 12 to 14 g/dL. It was 10.9 yesterday, came down to 9.9 grams per deciliter today. Patient was started recently on aspirin and Plavix for stroke. He denied any GI bleed. Plan: Serum iron, TIBC, ferritin, stool for occult blood. #3 other chronic medical problems: Stable, continue current medications as above. This note was generated with [employer] software. It may contain incorrect words, spelling, and punctuation that were not noted in checking the note before signing. Code Visit Inpatient E&M: 17692 Subs Hosp L2
[2019-03-05 12:46] LABS: Bedside Glucose 84 mg/dL (70-110)
[2019-03-05 13:45] LABS: Ferritin 334 ng/mL (26-388); Iron 47 ug/dL (65-175); Iron Binding Capacity,Total 221 ug/dL (250-450); PERCENT IRON SATURATION 21.3 % (15.0-55.0)
--- NOTE | 2019-03-05 14:40 | CASEMGMT ---
Readmission chart review: Pt was initially admitted 02/19-02/20/19 for Acute lacunar infarct and discharged with OP therapy script and 30 day event monitor. See CM assessment completed by Andreea GOODEN CM on 02/20/19. Pt was then brought back in by EMS on 03/04/19 who was alerted by 30 day event monitor company that pt had had several greater than 10second pauses. Pt is set up to have pacermaker placed. CM to follow for discharge planning/needs. This RN CM had made a f/u call on 02/21/19, see note. Niall GOODEN CM
--- NOTE | 2019-03-05 14:59 | CL.IE_ITS ---
Patient: LOU JULIEN Study Date: 03/05/2019 Performing: Mitch Harris MD : 1955 Age: 63 Gender: male PROCEDURES PERFORMED [id number] PACER INSERT+DUAL LEADS INDICATIONS complete heart block PROCEDURE DETAILS The patient was brought to the Catheterization Lab in the postabsorptive nonsedated state. Infor med consent was obtained prior to the procedure. Local anesthetic was given subcutaneously to the le ft subclavian region with Lidocaine 2%. Access was achieved and a guidewire was advanced into the lef t subclavian vein. Incision was made to the left subclavicular area. PPM ventricular lead was inserte d / positioned to right ventricular septal wall. PPM atrial lead was inserted / positioned to the rig ht atrial appendage. The Atrial lead sutured in place with 2-0 Silk. The Ventricular PM lead sutured in place with 2-0 Silk. Device pocket was irrigated with antibiotic. PPM generator was attached to th e lead(s) and inserted into the pocket. Subcutaneous closure was completed with 3-0 Vicryl. Skin clos ure was completed with 4-0 Vicryl. The patient tolerated the procedure well. Estimated Blood Loss: 25 ml's IMPLANTED / EX-PLANTED DEVICES IMPLANTED DEVICE(S): PPM Atrial lead - Standard Machine Stitcher: [place] [employer]ent[employer], Model # Essentio MR DR Pacemaker L111 , Serial # [id number] PPM Ventricular lead - Standard Machine Stitcher: [place] [employer], Model # Ingevity MRI 7741, Serial # [id number] PPM Generator - Standard Machine Stitcher: [place] [employer], Model # Ingevity MRI 7740 , Serial # [id number] DEVICE PARAMETERS ATRIAL LEAD PARAMETERS: P wave- 3.8 (mV) Current- 1.0 (mA) threshold- 0.6 (V) impedence- 621 (OHMS) VENTRICULAR LEAD PARAMETERS: R wave- 21.3 (mV) Current- 0.5 (mA) threshold- 0.6 (V) impedence- 1347 (OHMS) DEVICE PARAMETERS: Mode- DDD Lower rate- 60 Upper rate- 130 CONCLUSIONS / RECOMMENDATIONS Device Conclusions: Successful implantation of a dual chamber pacemaker Device Recommendations: Follow up with Primary Care Physician PROCEDURE MEDICATIONS Versed 1 mg IV Fentanyl 50 mcg IV Versed 1 mg IV Oxygen: 2 L/min via nasal cannula Oxygen: 4 L/min via nasal cannula Antibiotic given in appropriate timeframe. Ancef 2 Gm IV 03/05/2019 13:15:16 Adenosine 6 mg IV 03/05/2019 14:39:53 Adenosine 12 mg IV @ 03/05/2019 14:45:41 Signed By Mitch Harris MD On 03/05/2019 14:58:26 Mitch Harris MD
[2019-03-05] MEDS: Ibuprofen 400 MG Tablet 800 MG PO (16:13)
[2019-03-05 16:25] LABS: Bedside Glucose 82 mg/dL (70-110)
[2019-03-05] MEDS: Metoprolol Tartrate 25 MG Tablet PO ×2 (16:40→21:00)
[2019-03-05] MEDS: Multivitamins,Therapeutic Tablet 1 TABLET PO (16:45)
[2019-03-05] MEDS: Insulin Lispro 100 UNIT/ML INSULN.PEN SC (21:00)
[2019-03-05] MEDS: Atorvastatin Calcium 80 MG Tablet PO (21:00)
[2019-03-05 21:15] LABS: Bedside Glucose 246 mg/dL (70-110)
[2019-03-06] VITALS (7 sets, daily range): BP systolic 130–168; BP diastolic 60–78; PULSE 63–69; RESP 14–16; TEMP 36.4–36.9; O2SAT 96
[2019-03-06 00:20] LABS: Bedside Glucose 210 mg/dL (70-110)
[2019-03-06 05:38] LABS: Basophil# 0.02 X10^3/uL; Basophil% 0.3 % (0-1); Eosinophil# 0.17 X10^3/uL; Eosinophils% 2.3 % (0-5); Hematocrit 29.3 % (40-54); Hemoglobin 9.9 g/dL (13.0-16.5); Lymphocyte % 20.5 % (19-41); Mean Corp Hgb Conc 33.8 g/dL (32-36); Mean Corpuscular Hgb 27.8 pg (27.0-32.0); Mean Corpuscular Volume 82.3 fL (80-94); Mean Platelet Vol. 9.6 fl (6.2-12.0); Monocyte# 0.62 X10^3/uL; Monocyte% 8.5 % (0-10); NRBC Flagged by Analyzer 0 % (0-5); Neutrophil # 4.98 X10^3/uL (2.7-7.7); Neutrophil % 67.9 % (47-70); Platelet Count 227 K/mm3 (150-450); RBC Distribution Width CV 13.1 % (11.6-14.6); RBC Distribution Width SD 39.5 fl (35.1-43.9); Red Blood Count 3.56 M/mm3 (4.6-6.2); White Blood Count 7.3 K/mm3 (4.4-11.0)
[2019-03-06 05:51] LABS: Anion Gap 6 (5-15); BUN 29 mg/dL (7-18); BUN/Creat Ratio 30.7 RATIO (10-20); Calcium,Total 8.2 mg/dL (8.5-10.1); Chloride 111 mmol/L (98-107); Creatinine, Serum 0.94 mg/dL (0.70-1.30); EST Glomerular Filtration Rate 86 mL/min (>60); Est Glom Filt Rate - Afr Amer 104 mL/min (>60); Estimated Creatinine Clearance 82.53 ml/min; Glucose 114 mg/dL (74-106); Sodium Level 143 mmol/L (136-145)
--- NOTE | 2019-03-06 05:55 | RAD_ITS ---
STUDY: X-RAY CHEST REASON FOR EXAM: Male, 63 years old. Pacemaker placement TECHNIQUE: Single AP portable view of the chest. COMPARISON: 02/18/2019 FINDINGS: Interval placement of left subclavian dual-lead pacemaker with no pneumothorax. Poor inspiration with some linear discoid atelectasis. There is no demonstrated pleural abnormality. Normal size heart. Normal mediastinum and merna. Normal visualized pulmonary arteries. Normal visualized aortic arch and descending thoracic aorta. Normal visualized thoracic spine. Normal visualized ribs, clavicles, and shoulders. There is no demonstrated abnormality of the visualized soft tissue structures of the upper abdomen. RAD/Chest 1 View IMPRESSION: 1. Interval placement of left subclavian dual-lead pacemaker with no pneumothorax. 2. Poor inspiration with some linear discoid atelectasis. Electronically Signed: Danny Mcdaniel MD at 8:24 EDT Tel , Service support ,
--- NOTE | 2019-03-06 05:55 | RAD_ITS ---
STUDY: X-RAY CHEST REASON FOR EXAM: Male, 63 years old. Pacemaker insertion TECHNIQUE: Frontal and lateral views of the chest. COMPARISON: 02/18/2019 FINDINGS: Pacemaker is seen on the left side with 2 leads in good position. Subsegmental atelectasis is noted in the left lung base. There is no demonstrated pleural abnormality. Normal size heart. Normal mediastinum and merna. Normal visualized pulmonary arteries. Normal visualized aortic arch and descending thoracic aorta. Normal visualized thoracic spine. Normal visualized ribs, clavicles, and shoulders. There is no demonstrated abnormality of the visualized soft tissue structures of the upper abdomen. RAD/Chest PA and Lateral IMPRESSION: No demonstrated acute cardiopulmonary process. Electronically Signed: Kenna Garner, at 8:16 EDT Tel , Service support ,
--- NOTE | 2019-03-06 06:50 | ED.RN ---
glucose 67 this am. was 210 around midnight with OJ drink. 2 orange juice given and breakfast called for pt.
[2019-03-06 07:05] LABS: Bedside Glucose 67 mg/dL (70-110)
[2019-03-06] MEDS: Gabapentin 100 MG Capsule PO (07:50)
[2019-03-06] MEDS: Metoprolol Tartrate 25 MG Tablet PO (07:50)
[2019-03-06] MEDS: Multivitamins,Therapeutic Tablet 1 TABLET PO (07:50)
--- NOTE | 2019-03-06 08:58 | PN.CARD_ITS ---
Subjectve: Patient seen and evaluated. Objective: Vital Signs Temp Pulse Resp BP Pulse Ox 98.5 F 67 16 168/78 H 96 03/06/19 07:40 03/06/19 07:50 03/06/19 07:40 03/06/19 07:40 03/06/19 07:40 Oxygen Delivery Method Room Air Weight: 164 lb 7.437 oz Body Mass Index (BMI) 24.3 Finger Stick Blood Glucose 326 Orthostatic Vital Signs Start: 03/05/19 05:51 Freq: q24h Status: Active Protocol: Activity Type Activity Date Activity User E-Sign Co-Sign Detail Recorded Client Recorded Date Recorded By Document 03/05/19 05:51 [email or web address] [id number] 03/05/19 05:57 [email or web address] 03/05/19 05:51 Orthostatic Vitals Standing -Blood Pressure (90/60-120/80) 141/69 H -Extremity Use Right Arm -Pulse Rate (60-100) 70 Sitting -Blood Pressure (90/60-120/80) 146/75 H -Extremity Use Right Arm -Pulse Rate (60-100) 66 Lying -Blood Pressure (90/60-120/80) 143/70 H -Extremity Use Right Arm -Pulse Rate (60-100) 65 Intake and Output for Last 24 Hours 03/04/19 03/05/19 03/06/19 23:59 23:59 23:59 Intake Total 2088 / 2088 1711 / 1711 Output Total 300 / 300 1050 / 1050 Balance 1788 / 1788 661 / 661 General: Awake, Alert, Oriented x 3 HEENT: PERRL, EOMI, Sclera Non Icteric Neck: Supple, Good ROM, No Lymph Node Enlargement Lungs: Clear to auscultation Cardiovascular: Regular Rhythm, Normal S1, Normal S2, No Murmurs, No Rubs, No Gallops Vascular: No Carotid Bruits, Normal Femoral Pulses, Normal Radial Pulses, Normal Dorsalis Pedal Pulse, Normal Posterior Tibial Pulses Abdomen: Bowel Sounds Present, Soft, Non Tender, No HSM, No Organomegaly Extremities: No Cyanosis, No Clubbing, No edema Musculoskeletal: No Erythema Skin: No Rashes Lymphatic: No Lymph Node Enlargement Neurological: No Focal Motor or Sensory Deficit 03/05/19 05:19: Iron 47 L, TIBC 221 L, Iron Saturation 21.3, Ferritin 334 03/06/19 05:02: WBC 7.3, RBC 3.56 L, Hgb 9.9 L, Hct 29.3 L, MCV 82.3, MCH 27.8, MCHC 33.8, Plt Count 227, MPV 9.6, Immature Gran % (Auto) 0.500, Neut % (Auto) 67.9, Lymph % (Auto) 20.5, [place] % (Auto) 8.5, Eos % (Auto) 2.3, Baso % (Auto) 0.3, Absolute Neuts (auto) 5.0, Nucleated RBC % 0 03/06/19 05:02: Sodium 143, Potassium 4.0, Chloride 111 H, Carbon Dioxide 26.0, Anion Gap 6, BUN 29 H, Creatinine 0.94, Est GFR (MDRD) Af Amer 104, Est GFR (MDRD) Non-Af 86, BUN/Creatinine Ratio 30.7 H, Glucose 114 H, Calcium 8.2 L Rhythm: EKG: ECHO: Stress Test: Cardiac Cath: PCI: CT Surgery: Holter monitor: EPS: PPM: CXR: Chest CT Scan: Medical Necessity - Tobacco Use Smoking Status: Former smoker Assessment/Plan 1. Abnormal cardiac rhythm * Patient presents with abnormal cardiac rhythm which is significant for unprovoked 13-second pause on his event monitor. * * Patient underwent dual-chamber pacemaker placement. It was checked this morning and it is noted to be functioning well chest x-ray demonstrates no abnormalities. Patient will be discharged for outpatient follow-up. Would recommend to discontinue Plavix. * * Thank you for allowing me to participate in the care of your patient. Please don't hesitate to call if any issues arise
--- NOTE | 2019-03-06 08:59 | DCINST_ITS ---
Discharge Diet: No Restrictions Discharge Activity: May Not Drive Call your doctor if your incision/area has: Continuous Slow Oozing, Sudden Increased Bleeding, Increased Pain/ Swelling, Increased Redness, Foul Smelling Discharge, Swelling at the incision site Call your doctor if you observe: Fever of 101 or Higher, Shortness of breath, Dizziness, Fainting spells, Swelling in the ankles, Chest pain, Prolonged hiccoughing, Increased palpitations (irregular heartbeat) Suture Line Care: Avoid Pulling/Pushing, Avoid Pinching/Bending Cleanse incision/area with: Do not get Incision Wet, Keep Dressing Clean & Dry Additional Dressing/Incision Instructions:: When dressing is removed, wash and dry incision. Keep covered with a light bandage if it is rubbing against your clothing. Do not cover the incision with an airtight bandage. Change the bandage daily. Do not remove steri strips. The strips will fall off on their own. Additional Instructions: Signs and Symptoms to Report to Your Doctor at Once - call your doctor's office or Doctor's Registry ([phone]) Call 911 or go to the nearest Emergency Department if you feel you need urgent care. *Infection (fever, increased redness or swelling at the incision site, drainage from the incision increased pain at the pacemaker site) *Shortness of breath *Dizziness *Fainting spells *Swelling in the ankles *Chest pain *Prolonged hiccoughing *Increased palpitaitons (irregular heartbeat) Medications: Take your pain medication as directed. Refer to your discharge instruction sheet for a list of medications you are to take. Allergies/Adverse Reactions: Allergies metformin [From Glucophage] Adverse Reaction (Verified 02/18/19 19:55) Abd cramps/diarrhea Medications to take at Discharge metFORMIN (XR) [Glucophage Xr] 500 mg PO BID 10/06/15 Gabapentin [Neurontin] 100 mg PO DAILY 05/06/18 Aspirin [Aspirin, Baby] 81 mg PO DAILY@0800 03/04/19 Atorvastatin Calcium [Lipitor] 80 mg PO QHS 03/04/19 Ibuprofen 800 mg PO 4X/DAY PRN PRN 03/04/19 Insulin Degludec [Tresiba Flextouch U-200] 50 units SQ DAILY@1700 03/04/19 Multivitamin [Daily Yousuf] 1 tab PO DAILY 03/04/19 Primary Care Physician: Vera Lucas MD [Primary Care Provider] - Test Results: Test results from this visit will be discussed in further detail at your follow- up appointment, if applicable. When: [facility] march 15 at 2:30pm Proposed Discharge Date: 03/06/19
--- NOTE | 2019-03-06 09:54 | PCM.DC ---
- Discharge Diagnoses Current Active Problems: Current Active and Chronic Problems (Last Updated 03/06/19 @ 09:40 by Casandra Gorman) Sinus pause (Chronic) You will use the following diet at home:: Cardiac Your food should be the consistency of: Regular Your liquids should be the consistency of: Regular/Thin Discharge Activity: May Not Drive Call your doctor if your incision/area has: Continuous Slow Oozing, Sudden Increased Bleeding, Increased Pain/ Swelling, Increased Redness, Foul Smelling Discharge, Swelling at the incision site Call your doctor if you observe: Fever of 101 or Higher, Shortness of breath, Dizziness, Fainting spells, Swelling in the ankles, Chest pain, Prolonged hiccoughing, Increased palpitations (irregular heartbeat) Suture Line Care: Avoid Pulling/Pushing, Avoid Pinching/Bending Cleanse incision/area with: Do not get Incision Wet, Keep Dressing Clean & Dry Additional Dressing/Incision Instructions:: When dressing is removed, wash and dry incision. Keep covered with a light bandage if it is rubbing against your clothing. Do not cover the incision with an airtight bandage. Change the bandage daily. Do not remove steri strips. The strips will fall off on their own. Allergies/Adverse Reactions: Allergies metformin [From Glucophage] Adverse Reaction (Verified 02/18/19 19:55) Abd cramps/diarrhea Medications to take at Discharge metFORMIN (XR) [Glucophage Xr] 500 mg PO BID 10/06/15 Gabapentin [Neurontin] 100 mg PO DAILY 05/06/18 Aspirin [Aspirin, Baby] 81 mg PO DAILY@0800 03/04/19 Atorvastatin Calcium [Lipitor] 80 mg PO QHS 03/04/19 Ibuprofen 800 mg PO 4X/DAY PRN PRN 03/04/19 Insulin Degludec [Tresiba Flextouch U-200] 50 units SQ DAILY@1700 03/04/19 Multivitamin [Daily Yousuf] 1 tab PO DAILY 03/04/19 Metoprolol Tartrate [Lopressor (beta yue)] 25 mg PO BID #60 tab 03/06/19 The following prescriptions were given: Metoprolol Tartrate [Lopressor (beta yue)] 25 mg PO BID #60 tab Transmission Status: Pending to [facility] [place] [facility] Primary Care Physician: Vera Lucas MD [Primary Care Provider] - Please follow up with your Primary Care Physician in: 1-2 weeks Test Results: Test results from this visit will be discussed in further detail at your follow-up appointment, if applicable. When: [facility] clinic march 15 at 2:30pm Please Follow Up With: Mitch Harris MD When: as directed Proposed Discharge Date: 03/06/19
--- NOTE | 2019-03-06 12:59 | PCM.DC.SUM ---
Discharge Date and Diagnosis Date of Admission: 03/04/19 Date of Discharge: 03/06/19 - Primary Discharge Diagnosis Sinus pause, complete heart block-status post pacemaker placement Prior TIA-ruled out, attributed to the above Hypertension Hyperlipidemia Type 2 diabetes BPH - Secondary Discharge Diagnosis Chronic Problems (Last Updated 03/06/19 @ 09:40 by Casandra Gorman) Supraventricular tachycardia (Chronic) Sick sinus syndrome (Chronic) CVA (cerebral vascular accident) (Chronic) Sinus pause (Chronic) HLD (hyperlipidemia) (Chronic) Hypercholesteremia (Chronic) Type II diabetes mellitus, uncontrolled (Chronic) Tachyarrhythmia (Chronic) Benign hypertension (Chronic) Hospital Course and Treatment Imaging Results: RAD/Chest PA and Lateral IMPRESSION: No demonstrated acute cardiopulmonary process. RAD/Chest 1 View IMPRESSION: 1. Interval placement of left subclavian dual-lead pacemaker with no pneumothorax. 2. Poor inspiration with some linear discoid atelectasis. Pacer procedure: CONCLUSIONS / RECOMMENDATIONS Device Conclusions: Successful implantation of a dual chamber pacemaker Device Recommendations: Follow up with Primary Care Physician Consultations: Cardiology- Steven Operations: None Procedures: - - pacemaker implantation Summary of Care Provided: Hospital course: The patient is a 63 year old M with past medical history of hypertension, hyperlipidemia, type 2 diabetes, and recently diagnosed with TIA, who presented to the emergency room after he was alerted by his 30-day event monitor that he had a 13-second cardiac pause. He was brought to the emergency room by squad. He had no acute issues in the ER. Cardiology was consulted and he was admitted to the PCU with plans for pacemaker placement. Is felt that this was also likely the reason for his prior admission at that point was considered a TIA. He is taken off his Plavix as TIA was ruled out. The patient was taken the following day for pacemaker implantation which was successful. He was started on metoprolol afterwards, will continue aspirin, statin. 30-day event monitor was removed. He was discharged home in stable condition. He will need to follow-up the pacer clinic as directed, and with cardiology as directed. He should also follow-up with his PCP in 1 to 2 weeks. This patient was seen by Tim Marquez PA-C under the supervision of Doctor Paiz. [] - Physical Exam Vital Signs Temp Pulse Resp BP Pulse Ox 98.5 F 67 16 168/78 H 96 03/06/19 07:40 03/06/19 07:50 03/06/19 07:40 03/06/19 07:40 03/06/19 07:40 Oxygen Delivery Method Room Air Weight: 164 lb 7.437 oz Body Mass Index (BMI) 24.3 Finger Stick Blood Glucose 326 Intake and Output for Last 24 Hours 03/04/19 03/05/19 03/06/19 23:59 23:59 23:59 Intake Total 2088 / 2088 1711 / 1711 Output Total 300 / 300 1050 / 1050 Balance 1788 / 1788 661 / 661 Laboratory Tests Past 24 Hrs 03/05/19 03/06/19 03/06/19 05:19 05:02 05:02 WBC 7.3 RBC 3.56 L Hgb 9.9 L Hct 29.3 L MCV 82.3 MCH 27.8 MCHC 33.8 RDW Std Deviation 39.5 RDW Coeff of Harry 13.1 Plt Count 227 MPV 9.6 Immature Gran % (Auto) 0.500 Neut % (Auto) 67.9 Lymph % (Auto) 20.5 Screven % (Auto) 8.5 Eos % (Auto) 2.3 Baso % (Auto) 0.3 Absolute Neuts (auto) 5.0 Absolute Lymphs (auto) 1.50 Nucleated RBC % 0 Sodium 143 Potassium 4.0 Chloride 111 H Carbon Dioxide 26.0 Anion Gap 6 BUN 29 H Creatinine 0.94 Estim Creat Clear Calc 82.53 Est GFR (MDRD) Af Amer 104 Est GFR (MDRD) Non-Af 86 BUN/Creatinine Ratio 30.7 H Glucose 114 H Calcium 8.2 L Iron 47 L TIBC 221 L Iron Saturation 21.3 Ferritin 334 POC Glucose 03/06/19 03/06/19 03/05/19 06:45 00:13 20:55 POC Glucose 67 L 210 H 246 H 03/05/19 16:21 POC Glucose 82 Discharge Diet: No Restrictions Discharge Activity: May Not Drive Call your doctor if your incision/area has: Continuous Slow Oozing, Sudden Increased Bleeding, Increased Pain/ Swelling, Increased Redness, Foul Smelling Discharge, Swelling at the incision site Call your doctor if you observe: Fever of 101 or Higher, Shortness of breath, Dizziness, Fainting spells, Swelling in the ankles, Chest pain, Prolonged hiccoughing, Increased palpitations (irregular heartbeat) Suture Line Care: Avoid Pulling/Pushing, Avoid Pinching/Bending Cleanse incision/area with: Do not get Incision Wet, Keep Dressing Clean & Dry Additional Dressing/Incision Instructions:: When dressing is removed, wash and dry incision. Keep covered with a light bandage if it is rubbing against your clothing. Do not cover the incision with an airtight bandage. Change the bandage daily. Do not remove steri strips. The strips will fall off on their own. Home Medications: Medications to take at Discharge metFORMIN (XR) [Glucophage Xr] 500 mg PO BID 10/06/15 Gabapentin [Neurontin] 100 mg PO DAILY 05/06/18 Aspirin [Aspirin, Baby] 81 mg PO DAILY@0800 03/04/19 Atorvastatin Calcium [Lipitor] 80 mg PO QHS 03/04/19 Ibuprofen 800 mg PO 4X/DAY PRN PRN 03/04/19 Insulin Degludec [Tresiba Flextouch U-200] 50 units SQ DAILY@1700 03/04/19 Multivitamin [Daily Yousuf] 1 tab PO DAILY 03/04/19 Metoprolol Tartrate [Lopressor (beta yue)] 25 mg PO BID #60 tab 03/06/19 Following Prescrptions Were Given to Patient: Metoprolol Tartrate [Lopressor (beta yue)] 25 mg PO BID #60 tab Transmission Status: Received by [employer] #[id number] Primary Care Physician: Vera Lucas MD [Primary Care Provider] - Please follow up with your Primary Care Physician in: 1-2 weeks When: pacer clinic march 15 at 2:30pm Please Follow Up With: Mitch Harris MD When: as directed Additional Instructions: Signs and Symptoms to Report to Your Doctor at Once - call your doctor's office or Doctor's Registry ([phone]) Call 911 or go to the nearest Emergency Department if you feel you need urgent care. *Infection (fever, increased redness or swelling at the incision site, drainage from the incision increased pain at the pacemaker site) *Shortness of breath *Dizziness *Fainting spells *Swelling in the ankles *Chest pain *Prolonged hiccoughing *Increased palpitaitons (irregular heartbeat) Medications: Take your pain medication as directed. Refer to your discharge instruction sheet for a list of medications you are to take. Medical Necessity - Tobacco Use Smoking Status: Former smoker Meaningful Use Info Meaningful Use Diagnoses (Choose all that apply): None applicable
--- NOTE | 2019-03-07 15:36 | CASEMGMT ---
BERKLEY RITTER Discharge Follow-Up Phone Call. Lace: 13 Strata: 4 Discharge Date: 03/06/19 Adm Dx: Cardiac Pause Attempted discharge follow-up phone call. Phone rang twice and then got a busy signal. Confirmed on demographics page that correct number was called and attempted again. Again, phone rang twice and then got a busy signal. Ruddy NEWSOME RN CM
--- NOTE | 2019-03-08 13:45 | CASEMGMT ---
BERKLEY CM DC PHONE CALL DC DATE: 03/06/19 DC Disposition: Home Diagnosis on Discharge: Cardiac Pause LACE/STRATA: 17/11 Attempted call to phone number listed. No answer and no machine vegetable picker. Andreea SCHREIBERN RN ACM
== END 2019-03-06 11:29 | disposition home or self-care (01) | DRG 171 ==
LOC: ED 19:30 → PCU 22:33
PROVIDERS: Internal Medicine Cardiovascular Disease; Physician Assistant; Admitting Provider Family Medicine; Emergency Provider Emergency Medicine; Family Provider Internal Medicine; PCP Internal Medicine; Visit Provider Hospitalist
DX: I44.2 Atrioventricular block, complete (principal); I10 Essential (primary) hypertension; E78.5 Hyperlipidemia, unspecified; N40.0 Benign prostatic hyperplasia without lower urinary tract symptoms; D64.9 Anemia, unspecified; E11.65 Type 2 diabetes mellitus with hyperglycemia; E78.00 Pure hypercholesterolemia, unspecified; Z87.891 Personal history of nicotine dependence; Z79.4 Long term (current) use of insulin
CPT/HCPCS: 33208; 36415; 71045; 71046; 80048; 80053; 82728; 82962; 83540; 83550; 83735; 84443; 84484; 85025; 87641; 93005; 99152; 99153; 99285; J7030; J7050; A4216; C1894; J0153

== ENCOUNTER 2019-04-25 13:06 | Observation (INO) | payer MEDICAID, SELFPAY ==
[2019-03-04 20:46] VITALS: BMI 24.3
[2019-04-25] VITALS (7 sets, daily range): BP systolic 153–190; BP diastolic 74–93; PULSE 63–75; RESP 14–21; TEMP 36.5–37; O2SAT 96–100; BMI 25.3; BMI 23.7
--- NOTE | 2019-04-25 13:15 | EKG12_ITS ---
Test Reason : CP Blood Pressure : / mmHG Vent. Rate : 074 BPM Atrial Rate : 074 BPM P-R Int : 186 ms QRS Dur : 088 ms QT Int : 380 ms P-R-T Axes : 033 -16 023 degrees QTc Int : 421 ms Normal sinus rhythm Voltage criteria for left ventricular hypertrophy Nonspecific T wave abnormality Abnormal ECG Confirmed by BRIELLE VILLA, KIMBERLY ([id number]), primer expeditor and drier ROCKY LO ([id number]) on 04/26/2019 1:24:50 PM Referred By: LIS Confirmed By:PELON HANNAH MD
--- NOTE | 2019-04-25 13:15 | RAD_ITS ---
STUDY: X-RAY CHEST REASON FOR EXAM: Male, 63 years old. Chest pain. TECHNIQUE: Single AP portable view of the chest. COMPARISON: March 06, 2019. FINDINGS: Left-sided cardiac device in position. Borderline cardiomegaly. Pulmonary vascularity unremarkable. Aorta slightly calcified. No focal patchy airspace opacities. No pleural effusions. Right upper lobe granuloma. Upper abdomen unremarkable. Osseous structures intact. No pneumothorax. RAD/Chest 1 View (Portable) IMPRESSION: No acute cardiopulmonary findings Electronically Signed: Juice Foss DO at 15:07 EDT Tel , Service support ,
[2019-04-25 13:38] LABS: Absolute Lymphocyte Count 1.32 X10^3/uL (0.83-4.51); Absolute Neutrophil Count 4.3 X10^3/uL (2.0-7.7); Basophil# 0.02 X10^3/uL; Basophil% 0.3 % (0-1); Eosinophil# 0.08 X10^3/uL; Eosinophils% 1.3 % (0-5); Hematocrit 36.1 % (40-54); Hemoglobin 12.2 g/dL (13.0-16.5); Lymphocyte # 1.32 X10^3/ul (4.0); Lymphocyte % 21.6 % (19-41); Mean Corp Hgb Conc 33.8 g/dL (32-36); Mean Corpuscular Hgb 27.6 pg (27.0-32.0); Mean Corpuscular Volume 81.7 fL (80-94); Mean Platelet Vol. 10.2 fl (6.2-12.0); Monocyte# 0.38 X10^3/uL; Monocyte% 6.2 % (0-10); NRBC Flagged by Analyzer 0 % (0-5); Neutrophil # 4.26 X10^3/uL (2.7-7.7); Neutrophil % 69.6 % (47-70); POSITIVE COUNT YES; Platelet Count 225 K/mm3 (150-450); RBC Distribution Width CV 12.6 % (11.6-14.6); Red Blood Count 4.42 M/mm3 (4.6-6.2); White Blood Count 6.1 K/mm3 (4.4-11.0)
[2019-04-25 13:53] LABS: Anion Gap 8 (5-15); BUN 26 mg/dL (7-18); BUN/Creat Ratio 19.8 RATIO (10-20); Chloride 101 mmol/L (98-107); Creatinine, Serum 1.31 mg/dL (0.70-1.30); EST Glomerular Filtration Rate 59 mL/min (>60); Est Glom Filt Rate - Afr Amer 72 mL/min (>60); Estimated Creatinine Clearance 59.22 ml/min; Glucose 628 mg/dL (74-106); Potassium 5.1 mmol/L (3.5-5.1); Sodium Level 134 mmol/L (136-145)
[2019-04-25 13:56] LABS: Differential Indicated SCAN CRITERIA MET
[2019-04-25 14:18] LABS: Prothrombin Time (Protime)PT. 12.5 SECONDS (11.7-14.9)
[2019-04-25 14:23] LABS: D-Dimer Quantitative (DVT/PE) 0.27 FEU/ug/m (0.27-0.49)
[2019-04-25] MEDS: 0.9% Normal Saline 1,000 ML 150 ML IV (14:43)
--- NOTE | 2019-04-25 14:57 | ED.DCSUM_ITS ---
- ER Visit Summary Date of Service: 04/25/19 Chief Complaint: [Chest pain] History of Present Illness: The patient is a 63 M [presents to the emergency department complaint of chest pain that started around 11 AM. Patient states that the pain is been intermittent but can last up to an hour at a time. Glory ent describes it as sharp and worse with deep breath by pushing on it. Patient has never had pain like this before. He denies any trauma. Patient does have history of hypertension and diabetes as well as hypercholesterolemia. Patient has a pacemaker in place and states he is never had a heart attack or any stent placement. Patient states that he is been out of his insulin since December and is only been taking his oral meds.] Physical Examination: [HEENT-PERRLA, EOMI. Cranial nerves II through XII grossly intact. TMs clear. Mucous membranes moist. No adenopathy. Cardiovascular-regular rate and rhythm without murmur or ectopy. Patient does have tenderness palpation over the left anterior chest wall that seems to reproduce his pain. Lungs-clear to auscultation, chest wall stable without crepitus or subcu emphysema Abdomen-normoactive bowel sounds, soft, nontender, no rebound or rigidity, no peritoneal signs. Extremities-intact ?4, normal range of motion, normal pulses, atraumatic] Test Results: [EKG obtained arrival shows sinus rhythm with a ventricular rate of 74 bpm with some nonspecific ST changes. CBC with differential shows a white count of 6.1, hemoglobin 12, hematocrit 36, placed 225. Chemistries unremarkable. BUN was 26 creatinine 1.31. Glucose was 628. Troponin is less than 0.015. D-dimer was less than 0.27. Chest x-ray showed nothing acute.] Emergency Department Course and Treatment: [Patient was given normal saline and was started on an insulin drip at 0.1 units/kg.] Treatment Plan: [Admit] Disposition: [Admit] Impression: [Chest pain Hyperglycemia-not compliant with meds] This note was generated with [employer] software. It may contain incorrect words, spelling, and punctuation that were not noted in review of the chart prior to signing ED Disposition - Plan for ED Patient: Referrals: Vera Lucas MD [Primary Care Provider] -
[2019-04-25 15:50] LABS: Bedside Glucose 493 mg/dL (70-110)
--- NOTE | 2019-04-25 15:51 | ED.RN ---
PER DR ALSTON D/C INSULIN GTT
--- NOTE | 2019-04-25 16:24 | HP.PCM_ITS ---
<Tim Marquez - Last Filed: 04/25/19 16:24> Problem List (1) Chest pain Status: Acute (2) Diabetes mellitus Status: Chronic Qualifiers: Diabetes mellitus type: type 2 (3) History of permanent cardiac pacemaker placement Status: Chronic (4) Essential (primary) hypertension Status: Chronic (5) Sick sinus syndrome Status: Chronic (6) CVA (cerebral vascular accident) Status: Chronic Comment: lacunar infarct in the right thalamus measures 5mm (7) HLD (hyperlipidemia) Status: Chronic History of Present Illness Date of Admission: 04/25/19 Chief Complaint: chest pain The patient is a 63 year old M with pmhx of DMT2, sick sinus syndrome and heart block s/p pacemaker placement, HTN, HLD, who presents to the ER with c/o chest pain. This began this morning. He states he was in his normal state of health yesterday. Today he was trying to eat lunch but could not because he suddenly developed 8/10 left sided chest pressure. This was constant, nonradiating, did have associated LH, did not have associated diaphoresis, or SOB. No vomiting. He called EMS and was administered nitro and aspirin. The nitro helped slightly, h owever now he states his pain is still 8/10. In the ER troponin and EKG were negative. His blood work showed significantly elevated blood glucose and he admitted he was not taking insulin previously prescribed to him, only metformin. He was admitted to the PCU for chest pain and hyperglycemia. [] Past Medical History Past Medical History (Chronic Problems): Chronic Problems (Last Updated 04/04/19 @ 20:27 by Renee Diaz) Diabetes mellitus (Chronic) Paroxysmal supraventricular tachycardia (Chronic 06/2017) Complete heart block (Chronic 02/2019) History of permanent cardiac pacemaker placement (Chronic 03/05/19) Essential (primary) hypertension (Chronic) Sick sinus syndrome (Chronic) CVA (cerebral vascular accident) (Chronic 02/2019) lacunar infarct in the right thalamus measures 5mm Sinus pause (Chronic) HLD (hyperlipidemia) (Chronic) Medical History: Medical History (Last Updated 04/04/19 @ 20:27 by Renee Diaz) Paroxysmal supraventricular tachycardia (Chronic) Onset Date: 06/2017 I47.1 Complete heart block (Chronic) Onset Date: 02/2019 I44.2 Essential (primary) hypertension (Chronic) I10 Sick sinus syndrome (Chronic) I49.5 CVA (cerebral vascular accident) (Chronic) Onset Date: 02/2019 I63.9 lacunar infarct in the right thalamus measures 5mm Sinus pause (Chronic) I45.5 HLD (hyperlipidemia) (Chronic) E78.5 Type II diabetes mellitus, uncontrolled E11.65 Tachyarrhythmia (Resolved) R00.0 Allergies No Known Allergies Allergy (Verified 04/25/19 13:11) Home Medications: Ambulatory Orders Medication Instructions Recorded metFORMIN (XR) [Glucophage Xr] 1,000 mg PO BID 10/06/15 Aspirin [Aspirin, Baby] 81 mg PO DAILY 03/04/19 Atorvastatin Calcium [Lipitor] 80 mg PO DAILY 03/04/19 Multivitamin [Daily Yousuf] 1 tab PO DAILY 03/04/19 Amlodipine [Norvasc] 5 mg PO DAILY 04/25/19 Clopidogrel Bisulfate [Clopidogrel] 75 mg PO DAILY 04/25/19 Lisinopril [Zestril] 40 mg PO DAILY 04/25/19 Metoprolol Succinate [Toprol Xl] 100 mg PO DAILY 04/25/19 Ranitidine [Zantac] 150 mg PO BID 04/25/19 Surgical History: Surgical History (Last Updated 04/04/19 @ 20:24 by Renee Diaz) History of carpal tunnel release (Resolved) Z98.890 History of permanent cardiac pacemaker placement (Chronic) Onset Date: 03/05/19 Z95.0 Surgical History: - - Carpal tunnel surgery Psychiatric History: No pertinent psych hx Lives: Alone Smoking Status: Former smoker Tobacco Use: Cigarettes Alcohol: None Drugs: None - *Family History Maternal History Items: No pertinent history Paternal History Items: Heart Disease Review of Systems Constitutional: Reports: Fatigue, - - lightheaded. Denies: Chills, Fever, Weight Change HEENT: Denies: Head Aches, Sinus Congestion, Sinus Drainage Cardiovascular: Reports: Chest Pain. Denies: Palpitations Respiratory: Denies: Cough, Shortness of Breath, Shortness of breath at rest, Sputum production Gastrointestinal: Reports: Nausea. Denies: Abdominal Pain, Diarrhea, Vomiting Genitourinary: Denies: Dysuria Musculoskeletal: Denies: Joint Pain, Joint Tenderness Skin: Denies: Rash, Wounds Neurological: Denies: Numbness, Tingling, Focal weakness Psychiatric: Denies: Anxiety, Depression, Homicidal Ideations, Suicidal Ideations Hematologic/ Lymphatic: Denies: Easy Bruising, Easy Bleeding VTE Information - Inpt Only VTE Present on Admission: No VTE Mechan Device Prophylaxis: None VTE Pharm Prophylaxis ordered?: Yes Patient Problems: Active and Suspected Problems (Last Updated 04/04/19 @ 20:27 by Renee Diaz) Chest pain (Acute) - Physical Exam General: Alert, Oriented x3, Cooperative HEENT: Atraumatic, PERRLA, EOMI, Normocephalic Neck: Supple, No JVD, Negative Carotid Bruits Lungs: Clear to auscultation, Normal air movement Cardiovascular: Regular rate, No murmurs Abdomen: Bowel Sounds Present, Soft, Non Tender Extremities: No edema, Capillary Refill Less than 3 Seconds Skin: No rashes, No breakdown Musculoskeletal: No Tenderness to Palpation of Joints or Extremities Neurological: Cranial nerves II-XII grossly intact Psych/Mental Status: Normal Affect, Appropriate, Alert and oriented to time, place, person, mood and affect Vital Signs Temp Pulse Resp BP Pulse Ox 97.7 F L 64 14 167/77 H 100 04/25/19 16:12 04/25/19 16:12 04/25/19 16:12 04/25/19 16:12 04/25/19 16:12 Oxygen Flow Rate (L/min) 2 Oxygen Delivery Method Nasal Cannula Weight: 160 lb 0.889 oz Body Mass Index (BMI) 23.7 Finger Stick Blood Glucose 493 Intake and Output for Last 24 Hours 04/23/19 04/24/19 04/25/19 23:59 23:59 23:59 Intake Total 8.84 / 8.84 Balance 8.84 / 8.84 Laboratory Tests Past 24 Hrs 04/25/19 04/25/19 04/25/19 13:25 13:25 13:25 WBC 6.1 RBC 4.42 L Hgb 12.2 L Hct 36.1 L MCV 81.7 MCH 27.6 MCHC 33.8 RDW Std Deviation 37.0 RDW Coeff of Harry 12.6 Plt Count 225 MPV 10.2 Immature Gran % (Auto) 1.000 H Neut % (Auto) 69.6 Lymph % (Auto) 21.6 Kendall % (Auto) 6.2 Eos % (Auto) 1.3 Baso % (Auto) 0.3 Absolute Neuts (auto) 4.3 Absolute Lymphs (auto) 1.32 Nucleated RBC % 0 PT Cancelled INR Cancelled D-Dimer Quant (PE/DVT) Sodium 134 L Potassium 5.1 Chloride 101 Carbon Dioxide 25.0 Anion Gap 8 BUN 26 H Creatinine 1.31 H Estim Creat Clear Calc 59.22 Est GFR (MDRD) Af Amer 72 Est GFR (MDRD) Non-Af 59 L BUN/Creatinine Ratio 19.8 Glucose 628 H* Calcium 9.0 Troponin I < 0.015 04/25/19 04/25/19 13:55 13:55 WBC RBC Hgb Hct MCV MCH MCHC RDW Std Deviation RDW Coeff of Harry Plt Count MPV Immature Gran % (Auto) Neut % (Auto) Lymph % (Auto) Kendall % (Auto) Eos % (Auto) Baso % (Auto) Absolute Neuts (auto) Absolute Lymphs (auto) Nucleated RBC % PT 12.5 INR 1.0 D-Dimer Quant (PE/DVT) 0.27 Sodium Potassium Chloride Carbon Dioxide Anion Gap BUN Creatinine Estim Creat Clear Calc Est GFR (MDRD) Af Amer Est GFR (MDRD) Non-Af BUN/Creatinine Ratio Glucose Calcium Troponin I POC Glucose 04/25/19 15:44 POC Glucose 493 H* Assessment/Plan All Active Problems (Last Updated 04/04/19 @ 20:27 by Renee Diaz) Chest pain (Acute) History of carpal tunnel release (Resolved) Tachyarrhythmia (Resolved) 1. Chest pain - no hx CAD. Cycle enzymes. EKG in AM. Stress test in AM. CXR/EKG/trop negative. Continue aspirin, plavix, statin, lisinopril, toprol. 2. DMt2 with hyperglycemia - not taking prior prescribed insulin. Hold metformin. Start lantus, TID insulin, and SSI. Gap is normal. Consult revenue inspector. 3. HTN - poorly controlled. PRN hydralazine. 4. Hx SSS, sinus pause, 3rd degree heart block - Pacemaker in place. DVT ppx: lovenox This patient was seen by Tim Marquez PA-C under the supervision of Doctor Marty. <Espinoza Ferguson - Last Filed: 09/19/19 18:34> History of Present Illness The patient is a 63 year old M [] Past Medical History Medical History: Medical History (Last Updated 04/04/19 @ 20:27 by Renee Diaz) Paroxysmal supraventricular tachycardia (Chronic) Onset Date: 06/2017 I47.1 Complete heart block (Chronic) Onset Date: 02/2019 I44.2 Essential (primary) hypertension (Chronic) I10 Sick sinus syndrome (Chronic) I49.5 CVA (cerebral vascular accident) (Chronic) Onset Date: 02/2019 I63.9 lacunar infarct in the right thalamus measures 5mm Sinus pause (Chronic) I45.5 HLD (hyperlipidemia) (Chronic) E78.5 Type II diabetes mellitus, uncontrolled E11.65 Tachyarrhythmia (Resolved) R00.0 Allergies No Known Allergies Allergy (Verified 04/25/19 13:11) Surgical History: Surgical History (Last Updated 04/04/19 @ 20:24 by Renee Diaz) History of carpal tunnel release (Resolved) Z98.890 History of permanent cardiac pacemaker placement (Chronic) Onset Date: Z95.0 - Physical Exam Vital Signs Temp Pulse Resp BP Pulse Ox 97.7 F L 65 14 167/77 H 100 04/25/19 16:12 04/25/19 16:43 04/25/19 16:12 04/25/19 16:12 04/25/19 16:12 Oxygen Flow Rate (L/min) 2 Oxygen Delivery Method Nasal Cannula Weight: 160 lb 0.889 oz Body Mass Index (BMI) 23.7 Finger Stick Blood Glucose 493 Intake and Output for Last 24 Hours 04/23/19 04/24/19 04/25/19 23:59 23:59 23:59 Intake Total 486.34 / 486.34 Balance 486.34 / 486.34 Laboratory Tests Past 24 Hrs 04/25/19 04/25/19 04/25/19 13:25 13:25 13:25 WBC 6.1 RBC 4.42 L Hgb 12.2 L Hct 36.1 L MCV 81.7 MCH 27.6 MCHC 33.8 RDW Std Deviation 37.0 RDW Coeff of Harry 12.6 Plt Count 225 MPV 10.2 Immature Gran % (Auto) 1.000 H Neut % (Auto) 69.6 Lymph % (Auto) 21.6 Kendall % (Auto) 6.2 Eos % (Auto) 1.3 Baso % (Auto) 0.3 Absolute Neuts (auto) 4.3 Absolute Lymphs (auto) 1.32 Nucleated RBC % 0 PT Cancelled INR Cancelled D-Dimer Quant (PE/DVT) Sodium 134 L Potassium 5.1 Chloride 101 Carbon Dioxide 25.0 Anion Gap 8 BUN 26 H Creatinine 1.31 H Estim Creat Clear Calc 59.22 Est GFR (MDRD) Af Amer 72 Est GFR (MDRD) Non-Af 59 L BUN/Creatinine Ratio 19.8 Glucose 628 H* Calcium 9.0 Troponin I < 0.015 04/25/19 04/25/19 04/25/19 13:55 13:55 16:30 WBC RBC Hgb Hct MCV MCH MCHC RDW Std Deviation RDW Coeff of Harry Plt Count MPV Immature Gran % (Auto) Neut % (Auto) Lymph % (Auto) Kendall % (Auto) Eos % (Auto) Baso % (Auto) Absolute Neuts (auto) Absolute Lymphs (auto) Nucleated RBC % PT 12.5 INR 1.0 D-Dimer Quant (PE/DVT) 0.27 Sodium Potassium Chloride Carbon Dioxide Anion Gap BUN Creatinine Estim Creat Clear Calc Est GFR (MDRD) Af Amer Est GFR (MDRD) Non-Af BUN/Creatinine Ratio Glucose Calcium Troponin I < 0.015 POC Glucose 04/25/19 15:44 POC Glucose 493 H* Code Visit Addendum: Dr. Ferguson I personally examined the patient and reviewed the chart. I agree with the above. 63-year-old male with history of a pacemaker for complete heart block and sick sinus syndrome, presents with chest pain. That the pain started around 11 AM and is been intermittent though at times can last for up to an hour. He says that it is worse with a deep breathing, and a d-dimer in the ER was at 0.27 essentially ruling out PE. Initial troponin was normal and an EKG was unremarkable. Of note on admission he was had a glucose of 628, and he states that he ran out of his insulin he cannot afford it since December. Will obtain serial troponins as well as a stress test in the morning. We will start him on insulin and I did discuss with him the fact that she can get insulin for $4-$10 at [facility] without a prescription, it is the old school insulin in a while that requires to be kept in the refrigerator. He will discuss this with his primary care physician. OBSV E&M: [id number] Initial observation care L2
[2019-04-25] MEDS: Insulin Lispro 100 UNIT/ML INSULN.PEN SC ×2 (20:00→22:23)
[2019-04-25] MEDS: 0.9% Normal Saline 1,000 ML 100 ML IV (20:04)
[2019-04-25 20:15] LABS: Bedside Glucose 328 mg/dL (70-110)
[2019-04-25] MEDS: Atorvastatin Calcium 80 MG Tablet PO (22:24)
[2019-04-25 22:31] LABS: Bedside Glucose 319 mg/dL (70-110)
[2019-04-26 03:00] VITALS: PULSE 62
[2019-04-26 04:15] VITALS: BP 156/83; PULSE 68; RESP 16; TEMP 37; O2SAT 98
[2019-04-26] MEDS: 0.9% Normal Saline 1,000 ML 100 ML IV (04:31)
[2019-04-26 05:41] LABS: Absolute Lymphocyte Count 1.83 X10^3/uL (0.83-4.51); Absolute Neutrophil Count 4.1 X10^3/uL (2.0-7.7); Basophil# 0.02 X10^3/uL; Basophil% 0.3 % (0-1); Eosinophil# 0.15 X10^3/uL; Eosinophils% 2.2 % (0-5); Hemoglobin 10.9 g/dL (13.0-16.5); Lymphocyte # 1.83 X10^3/ul (4.0); Lymphocyte % 27.3 % (19-41); Mean Corp Hgb Conc 34.1 g/dL (32-36); Mean Corpuscular Hgb 27.5 pg (27.0-32.0); Mean Corpuscular Volume 80.6 fL (80-94); Mean Platelet Vol. 9.8 fl (6.2-12.0); Monocyte# 0.51 X10^3/uL; Monocyte% 7.6 % (0-10); NRBC Flagged by Analyzer 0 % (0-5); Neutrophil % 61.3 % (47-70); Platelet Count 223 K/mm3 (150-450); RBC Distribution Width CV 12.7 % (11.6-14.6); RBC Distribution Width SD 36.9 fl (35.1-43.9); Red Blood Count 3.97 M/mm3 (4.6-6.2); White Blood Count 6.7 K/mm3 (4.4-11.0)
--- NOTE | 2019-04-26 05:55 | EKG12_ITS ---
Test Reason : AM EKG Blood Pressure : / mmHG Vent. Rate : 064 BPM Atrial Rate : 064 BPM P-R Int : 204 ms QRS Dur : 092 ms QT Int : 454 ms P-R-T Axes : 037 -17 -41 degrees QTc Int : 468 ms Normal sinus rhythm Voltage criteria for left ventricular hypertrophy Nonspecific ST and T wave abnormality Prolonged QT Abnormal ECG Confirmed by ANNALISA VILLA, NINI ([id number]), book editor ROCKY LO ([id number]) on 05/01/2019 11:02:20 AM Referred By: GAMALIEL Confirmed By:NINI FANG MD
[2019-04-26 05:57] LABS: Anion Gap 5 (5-15); BUN 23 mg/dL (7-18); Calcium,Total 8.4 mg/dL (8.5-10.1); Chloride 111 mmol/L (98-107); Creatinine, Serum 0.82 mg/dL (0.70-1.30); EST Glomerular Filtration Rate 101 mL/min (>60); Est Glom Filt Rate - Afr Amer 123 mL/min (>60); Estimated Creatinine Clearance 91.52 ml/min; Glucose 248 mg/dL (74-106); Potassium 3.8 mmol/L (3.5-5.1); Sodium Level 145 mmol/L (136-145)
[2019-04-26] MEDS: Aspirin 81 MG TAB.CHEW PO (06:35)
[2019-04-26] MEDS: Clopidogrel Bisulfate 75 MG Tablet PO (06:35)
[2019-04-26] MEDS: Lisinopril 40 MG Tablet PO (06:35)
[2019-04-26 07:00] LABS: Bedside Glucose 257 mg/dL (70-110)
[2019-04-26 07:29] VITALS: PULSE 62
[2019-04-26 07:32] VITALS: BP 158/83; PULSE 66; RESP 18; TEMP 37; O2SAT 96
[2019-04-26] MEDS: Insulin Lispro 100 UNIT/ML INSULN.PEN SC ×2 (11:37→11:38)
[2019-04-26 11:39] VITALS: PULSE 74
[2019-04-26] MEDS: amLODIPine 5 MG Tablet PO (11:39)
[2019-04-26] MEDS: Metoprolol(XL)Succ 100 MG Tablet PO (11:39)
[2019-04-26 11:45] LABS: Bedside Glucose 337 mg/dL (70-110)
--- NOTE | 2019-04-26 14:17 | STRESSREP ---
Stress Test Report Pharmacologic myocardial perfusion stress test. 63-year-old man with a history of chest pain. Medications Norvasc, aspirin, Lipitor, Plavix, Toprol. Stress protocol: Resting EKG demonstrates sinus rhythm with a rate of 64 bpm normal intervals are noted T wave inversions noted in lead III and aVF. Resting blood pressure 158/82 m of mercury. 0.4 mg adenosine was infused per usual protocol followed by rapid intravenous and flush injection continuous EKG monitoring was performed. Patient maintained sinus rhythm throughout the recording. T wave inversions persisted in leads II, III and aVF V4 V5 and V6. No other ST changes were noted occasional premature ventricular complexes were noted. The resting blood pressures 152/82 with a final blood pressure 156/74. Myocardial perfusion protocol. 11.7 mCi of technetium 99m sestamibi was injected at rest. 0.4 mg of regadenoson was infused per usual protocol peak infusion 33.9 mCi of technetium 99m sestamibi was injected stress images were obtained stress and rest images are reconstructed and compared in the short axis vertical and horizontal long axis. Gated images were also obtained. Perfusion SPECT analysis: Review of the stress images demonstrate normal uptake of tracer noted in all rest myocardium. The basal inferior wall appears to have reduced perfusion which may be secondary to attenuation. No obvious reversibility is noted suggest ischemia no previous infarct is noted. Gated SPECT analysis: The gated ejection fraction is 54%. Conclusion: Normal pharmacologic myocardial perfusion stress test. No evidence of ischemia noted.
--- NOTE | 2019-04-26 14:29 | DCINST_ITS ---
- Discharge Diagnoses Current Active Problems: Current Active and Chronic Problems (Last Updated 04/04/19 @ 20:27 by Renee Diaz) Diabetes mellitus (Chronic) Chest pain (Acute) You will use the following diet at home:: Calorie/Carbohydrate Controlled (specify 1200, 1400, etc) - 1800 radha / day, Cardiac Your food should be the consistency of: Regular Your liquids should be the consistency of: Regular/Thin Discharge Activity: Return to Normal Activity Additional Instructions: Use your glucometer every day. It should be used in the morning when you awaken, then prior to each time you give yourself your mealtime insulin dose. Record the results, with the date and time, in a journal, and give these results to your doctor at follow up. Allergies/Adverse Reactions: Allergies No Known Allergies Allergy (Verified 04/25/19 13:11) Medications to take at Discharge metFORMIN (XR) [Glucophage Xr] 1,000 mg PO BID 10/06/15 Aspirin [Aspirin, Baby] 81 mg PO DAILY 03/04/19 Atorvastatin Calcium [Lipitor] 80 mg PO DAILY 03/04/19 Multivitamin [Daily Yousuf] 1 tab PO DAILY 03/04/19 Amlodipine [Norvasc] 5 mg PO DAILY 04/25/19 Clopidogrel Bisulfate [Clopidogrel] 75 mg PO DAILY 04/25/19 Lisinopril [Zestril] 40 mg PO DAILY 04/25/19 Metoprolol Succinate [Toprol Xl] 100 mg PO DAILY 04/25/19 Ranitidine [Zantac] 150 mg PO BID 04/25/19 Insulin Glargine [Lantus SoloStar Pen] 10 units SUBCUT QHS #1 pen 04/26/19 Insulin Lispro [Humalog KwikPen] 5 unit SQ TID #1 insuln.pen 04/26/19 The following prescriptions were given: Insulin Lispro [Humalog KwikPen] 5 unit SQ TID #1 insuln.pen Transmission Status: Pending to [facility] [id number] Insulin Glargine [Lantus SoloStar Pen] 10 units SUBCUT QHS #1 pen Transmission Status: Pending to [facility] - [id number] Orders to be completed after discharge: Glucometer Location: None Selected Primary Care Physician: Vera Lucas MD [Primary Care Provider] - Please follow up with your Primary Care Physician in: 1 week Test Results: Test results from this visit will be discussed in further detail at your follow- up appointment, if applicable. Proposed Discharge Date: 04/26/19
--- NOTE | 2019-04-26 14:32 | PCM.DC.SUM ---
<Tim Marquez - Last Filed: 04/26/19 14:32> Discharge Date and Diagnosis - Problem List Patient Problems: Active and Suspected Problems (Last Updated 04/04/19 @ 20:27 by Renee Diaz) Chest pain (Acute) Date of Admission: 04/25/19 Date of Discharge: 04/26/19 - Primary Discharge Diagnosis Active and Suspected Problems (Last Updated 04/04/19 @ 20:27 by Renee Diaz) Chest pain - musculoskeletal DMt2 with Hyperglycemia 2/2 noncompliance with home insulin regimen HTN SSS, heart block, s/p Pacemaker HLD - Secondary Discharge Diagnosis Chronic Problems (Last Updated 04/04/19 @ 20:27 by Renee Diaz) Diabetes mellitus (Chronic) Paroxysmal supraventricular tachycardia (Chronic 06/2017) Complete heart block (Chronic 02/2019) History of permanent cardiac pacemaker placement (Chronic 03/05/19) Essential (primary) hypertension (Chronic) Sick sinus syndrome (Chronic) CVA (cerebral vascular accident) (Chronic 02/2019) lacunar infarct in the right thalamus measures 5mm Sinus pause (Chronic) HLD (hyperlipidemia) (Chronic) Hospital Course and Treatment Imaging Results: 04/26/19 05:55 Nuclear Stress Test - Chemical [NM] Routine Operations: None Procedures: Stress test Summary of Care Provided: Hospital Course: The patient is a 63 year old M with pmhx of HTN, HLD, DMt2, heart block and SSS with pacemaker in place, who presented to the ER with c/o chest pain. This began suddenly the morning of presentation while he was sitting trying to eat lunch. This was described as a left-sided 8 out of 10 pain without radiation, described as pressure, constant, nonradiating, with associated lightheadedness, no diaphoresis shortness of breath or nausea or vomiting. EMS was called and he was given nitro and aspirin, the nitro helped slightly. In the ER his pain had increased back to 8 out of 10. EKG and troponin were negative in the ER, and chest x-ray was negative. He was very hyperglycemic with blood sugar greater than 600, he was not acidotic. He was started on insulin drip in the ER. He was admitted for chest pain and hyperglycemia. He was transitioned to daily Lantus, mealtime NovoLog, and a sliding scale was provided. Metformin was held. His blood sugar did improve however he did still have some hyperglycemia. Troponin was cycled and remained negative. He had no events on telemetry overnight. He was taken for a stress test the following day which was negative. He had no further chest pain after admission. He was discharged home in stable condition. I have given him prescriptions for Lantus daily as well as mealtime NovoLog to take in addition to his metformin. I have also provided him with a glucometer and all the necessary accessories. I have advised him to check his blood sugar each morning on waking, and then prior to his mealtime NovoLog doses. I have advised him to record this in a journal and provide the results to his PCP so that further adjustments can be made. I did advise follow-up with his PCP in 1 week. This patient was seen by Tim Marquez PA-C under the supervision of Doctor Bjorn. [] Patient Problems: Active and Suspected Problems (Last Updated 04/04/19 @ 20:27 by Renee Diaz) Chest pain (Acute) - Physical Exam General: Alert, Oriented x3, Cooperative HEENT: Atraumatic, PERRLA, EOMI, Normocephalic Neck: Supple, No JVD, Negative Carotid Bruits Lungs: Clear to auscultation, Normal air movement Cardiovascular: Regular rate, No murmurs Abdomen: Bowel Sounds Present, Soft, Non Tender Extremities: No edema, Capillary Refill Less than 3 Seconds Skin: No rashes, No breakdown Musculoskeletal: No Tenderness to Palpation of Joints or Extremities Neurological: Cranial nerves II-XII grossly intact Psych/Mental Status: Normal Affect, Appropriate Vital Signs Temp Pulse Resp BP Pulse Ox 98.6 F 74 18 158/83 H 96 04/26/19 07:32 04/26/19 11:39 04/26/19 07:32 04/26/19 07:32 04/26/19 07:32 Oxygen Flow Rate (L/min) 2 Oxygen Delivery Method Room Air Weight: 160 lb 0.889 oz Body Mass Index (BMI) 23.7 Finger Stick Blood Glucose 493 Intake and Output for Last 24 Hours 04/24/19 04/25/19 04/26/19 23:59 23:59 23:59 Intake Total 726.34 / 726.34 1015 / 1015 Balance 726.34 / 726.34 1015 / 1015 Laboratory Tests Past 24 Hrs 04/25/19 04/25/19 04/26/19 16:30 19:33 05:10 WBC 6.7 RBC 3.97 L Hgb 10.9 L Hct 32.0 L MCV 80.6 MCH 27.5 MCHC 34.1 RDW Std Deviation 36.9 RDW Coeff of Harry 12.7 Plt Count 223 MPV 9.8 Immature Gran % (Auto) 1.300 H Neut % (Auto) 61.3 Lymph % (Auto) 27.3 [place] % (Auto) 7.6 Eos % (Auto) 2.2 Baso % (Auto) 0.3 Absolute Neuts (auto) 4.1 Absolute Lymphs (auto) 1.83 Nucleated RBC % 0 Sodium Potassium Chloride Carbon Dioxide Anion Gap BUN Creatinine Estim Creat Clear Calc Est GFR (MDRD) Af Amer Est GFR (MDRD) Non-Af BUN/Creatinine Ratio Glucose Calcium Troponin I < 0.015 < 0.015 04/26/19 05:10 WBC RBC Hgb Hct MCV MCH MCHC RDW Std Deviation RDW Coeff of Harry Plt Count MPV Immature Gran % (Auto) Neut % (Auto) Lymph % (Auto) [place] % (Auto) Eos % (Auto) Baso % (Auto) Absolute Neuts (auto) Absolute Lymphs (auto) Nucleated RBC % Sodium 145 Potassium 3.8 Chloride 111 H Carbon Dioxide 29.0 Anion Gap 5 BUN 23 H Creatinine 0.82 Estim Creat Clear Calc 91.52 Est GFR (MDRD) Af Amer 123 Est GFR (MDRD) Non-Af 101 BUN/Creatinine Ratio 28.0 H Glucose 248 H Calcium 8.4 L Troponin I POC Glucose 04/26/19 04/26/19 04/25/19 11:36 06:32 22:22 POC Glucose 337 H 257 H 319 H 04/25/19 04/25/19 19:59 15:44 POC Glucose 328 H 493 H* Discharge Diet: Low fat/ Low Cholesterol, 1800 Calorie Control Diet, 2000 mg Sodium Diet Discharge Activity: Return to Normal Activity Home Medications: Medications to take at Discharge metFORMIN (XR) [Glucophage Xr] 1,000 mg PO BID 10/06/15 Aspirin [Aspirin, Baby] 81 mg PO DAILY 03/04/19 Atorvastatin Calcium [Lipitor] 80 mg PO DAILY 03/04/19 Multivitamin [Daily Yousuf] 1 tab PO DAILY 03/04/19 Amlodipine [Norvasc] 5 mg PO DAILY 04/25/19 Clopidogrel Bisulfate [Clopidogrel] 75 mg PO DAILY 04/25/19 Lisinopril [Zestril] 40 mg PO DAILY 04/25/19 Metoprolol Succinate [Toprol Xl] 100 mg PO DAILY 04/25/19 Ranitidine [Zantac] 150 mg PO BID 04/25/19 Insulin Glargine [Lantus SoloStar Pen] 10 units SUBCUT QHS #1 pen 04/26/19 Insulin Lispro [Humalog KwikPen] 5 unit SQ TID #1 insuln.pen 04/26/19 Following Prescrptions Were Given to Patient: Insulin Lispro [Humalog KwikPen] 5 unit SQ TID #1 insuln.pen Transmission Status: Received by [facility] [id number] Insulin Glargine [Lantus SoloStar Pen] 10 units SUBCUT QHS #1 pen Transmission Status: Received by [facility] [id number] Other Amb Orders: Glucometer Location: None Selected Primary Care Physician: Vera Lucas MD [Primary Care Provider] - Please follow up with your Primary Care Physician in: 1 week Disposition: Home Minutes spent on discharge:: 35 Patient Condition:: Stable Medical Necessity - Tobacco Use Smoking Status: Former smoker Tobacco Use: Cigarettes Meaningful Use Info Meaningful Use Diagnoses (Choose all that apply): None applicable <Juice [place] - Last Filed: 04/26/19 16:47> Discharge Date and Diagnosis - Primary Discharge Diagnosis Active and Suspected Problems (Last Updated 04/04/19 @ 20:27 by Renee Diaz) Chest pain (Acute) - Secondary Discharge Diagnosis Chronic Problems (Last Updated 04/04/19 @ 20:27 by Renee Diaz) Diabetes mellitus (Chronic) Paroxysmal supraventricular tachycardia (Chronic 06/2017) Complete heart block (Chronic 02/2019) History of permanent cardiac pacemaker placement (Chronic 03/05/19) Essential (primary) hypertension (Chronic) Sick sinus syndrome (Chronic) CVA (cerebral vascular accident) (Chronic 02/2019) lacunar infarct in the right thalamus measures 5mm Sinus pause (Chronic) HLD (hyperlipidemia) (Chronic) Hospital Course and Treatment Operations: None Procedures: Stress test Summary of Care Provided: Patient seen and examined independently. Data reviewed. I agree with the above note by the physician physician assistant surgery. The patient is a 63 year old M presents with chest pain. Patient underwent a cardiac evaluation including stress test that was negative. Patient also was noted to be profoundly hyperglycemic. Patient had been on insulin previously but had stopped taking in December stating insurance reasons. Case management reviewed and saw the patient is [place] and stated that coverage for his insulin would not be an issue. Patient will be prescribed prandial as well as basal insulin and also be prescribed a glucometer and other testing supplies. Patient advised to keep a record of his glucose and to follow-up with his primary care provider. [] - Physical Exam General: Alert, Cooperative HEENT: Atraumatic, Normocephalic Neck: No Nodes, Thyroid Normal Size and Texture Lungs: Clear to auscultation, Normal air movement Cardiovascular: Regular rate, No murmurs Vital Signs Temp Pulse Resp BP Pulse Ox 37.0 C 74 18 158/83 H 96 04/26/19 07:32 04/26/19 11:39 04/26/19 07:32 04/26/19 07:32 04/26/19 07:32 Oxygen Flow Rate (L/min) 2 Oxygen Delivery Method Room Air Weight: 72.6 kg Body Mass Index (BMI) 23.7 Finger Stick Blood Glucose 493 Intake and Output for Last 24 Hours 04/24/19 04/25/19 04/26/19 23:59 23:59 23:59 Intake Total 726.34 / 726.34 2014 Balance 726.34 / 726.34 2014 Laboratory Tests Past 24 Hrs 04/25/19 04/25/19 04/26/19 16:30 19:33 05:10 WBC 6.7 RBC 3.97 L Hgb 10.9 L Hct 32.0 L MCV 80.6 MCH 27.5 MCHC 34.1 RDW Std Deviation 36.9 RDW Coeff of Harry 12.7 Plt Count 223 MPV 9.8 Immature Gran % (Auto) 1.300 H Neut % (Auto) 61.3 Lymph % (Auto) 27.3 [place] % (Auto) 7.6 Eos % (Auto) 2.2 Baso % (Auto) 0.3 Absolute Neuts (auto) 4.1 Absolute Lymphs (auto) 1.83 Nucleated RBC % 0 Sodium Potassium Chloride Carbon Dioxide Anion Gap BUN Creatinine Estim Creat Clear Calc Est GFR (MDRD) Af Amer Est GFR (MDRD) Non-Af BUN/Creatinine Ratio Glucose Calcium Troponin I < 0.015 < 0.015 04/26/19 05:10 WBC RBC Hgb Hct MCV MCH MCHC RDW Std Deviation RDW Coeff of Harry Plt Count MPV Immature Gran % (Auto) Neut % (Auto) Lymph % (Auto) [place] % (Auto) Eos % (Auto) Baso % (Auto) Absolute Neuts (auto) Absolute Lymphs (auto) Nucleated RBC % Sodium 145 Potassium 3.8 Chloride 111 H Carbon Dioxide 29.0 Anion Gap 5 BUN 23 H Creatinine 0.82 Estim Creat Clear Calc 91.52 Est GFR (MDRD) Af Amer 123 Est GFR (MDRD) Non-Af 101 BUN/Creatinine Ratio 28.0 H Glucose 248 H Calcium 8.4 L Troponin I POC Glucose 04/26/19 04/26/19 04/25/19 11:36 06:32 22:22 POC Glucose 337 H 257 H 319 H 04/25/19 19:59 POC Glucose 328 H Discharge Diet: Low fat/ Low Cholesterol, 1800 Calorie Control Diet, 2000 mg Sodium Diet Discharge Activity: Return to Normal Activity Disposition: Home Patient Condition:: Stable Medical Necessity - Tobacco Use Smoking Status: Former smoker Tobacco Use: Cigarettes Meaningful Use Info Meaningful Use Diagnoses (Choose all that apply): None applicable Code Visit OBSV E&M: 44546 Observation care discharge
--- NOTE | 2019-04-26 15:02 | CHAPLAIN ---
Type of Pastoral Visit _x__ Initial Visit ___ Follow-up Visit ___ On-call Visit ___ General Patient Visit ___ Spiritual Assessment ___ Family Conference ___ Bereavement ___ Rapid Response ___ Code Blue ___ Other (describe below) Pastoral Care Referral From _x__ Patient ___ Family ___ Nurse ___ Physician ___ Steam Hammer Operator ___ Industrial Economics Teacher ___ Other (describe below) Sacrament/Intervention _x__ Active listening ___ Anointing ___ Zoroastrianism ___ Bereavement ___ Communion ___ Laverne exploration ___ ___ Life review _x__ Prayer ___ Reconciliation ___ Sacrament of Sick _x__ Supportive presence ___ Wedding ___ Other (describe below) Pastoral Comments
== END 2019-04-26 14:31 | disposition home or self-care (01) ==
LOC: ED 14:21 → PCU 15:37
PROVIDERS: Admitting Provider Family Medicine; Emergency Provider Emergency Medicine; Family Provider Internal Medicine; PCP Internal Medicine
DX: R07.89 Other chest pain (principal); E11.65 Type 2 diabetes mellitus with hyperglycemia; E78.5 Hyperlipidemia, unspecified; I10 Essential (primary) hypertension; Z79.899 Other long term (current) drug therapy; Z95.0 Presence of cardiac pacemaker; Z79.82 Long term (current) use of aspirin; Z79.02 Long term (current) use of antithrombotics/antiplatelets; Z79.84 Long term (current) use of oral hypoglycemic drugs; Z87.891 Personal history of nicotine dependence
CPT/HCPCS: 36415; 71045; 78452; 80048; 82962; 84484; 85025; 85379; 85610; 93005; 93017; 96361; 96365; 99218; 99285; A9500; J7030; A4216; G0378; J2785

== ENCOUNTER 2019-06-11 20:29 | Emergency (ER) | payer MEDICAID, SELFPAY ==
[2019-04-25 16:06] VITALS: BMI 23.7
[2019-06-11 20:30] VITALS: BP 181/76; PULSE 69; RESP 17; TEMP 36.9; O2SAT 97; BMI 25.6
[2019-06-11 20:31] VITALS: PULSE 68; RESP 16; O2SAT 97
[2019-06-11 20:41] LABS: Bedside Glucose 162 mg/dL (70-110)
[2019-06-11] MEDS: 0.9% Normal Saline 1,000 ML 1000 ML IV (21:00)
--- NOTE | 2019-06-11 21:02 | ED.VIS.GEN ---
History of Present Illness Chief Complaint: Dizziness Informant: Patient Onset: Today Context: Sudden Onset Timing: Continuous Current Severity: Mild Maximum Severity: Moderate Narrative: The patient is an insulin-dependent diabetic who presents to the emergency department with elevated blood sugar and lightheadedness. The patient states that his blood sugar was up to 400 today. He states he was feeling lightheaded, had blurry vision, and was feeling increased thirst. He states that he was dosing himself his insulin and was able to get down under 300 but was still feeling lightheaded. He did call squad. He denies any chest pain, shortness of breath, weakness, or any other systemic symptoms. He states he is been compliant with his insulin therapy. He is otherwise been in his normal state of health. Prior similar symptoms: Yes Recent Illness/Hospitalization: Yes Past Medical History - Allergies and Home Meds Allergies/Adverse Reactions: Allergies No Known Allergies Allergy (Verified 04/25/19 13:11) Primary Care Physician: Vera Lucas MD [Primary Care Provider] - Prior records reviewed: Yes Past Medical History: - - Insulin-dependent diabetes, prior stroke, hypertension Surgical History: - - Carpal tunnel surgery Smoking Status: Former smoker - Family History Paternal Family History: Reports: Heart Disease Maternal Family History: Reports: No pertinent history Review of Systems General: Denies: Chills, Fever, Sweats Eyes: Denies: Visual changes - bilaterally, Diplopia ENT: Denies: Rhinorrhea, Sore throat Cardiovascular: Denies: Chest pain, Palpitations Respiratory: Denies: Dyspnea, Cough, Dyspnea on exertion Gastrointestinal: Denies: Abdominal pain, Nausea, Vomiting, Diarrhea, Melena, Hematochezia Genitourinary: Denies: Dysuria, Hematuria, Frequency Musculoskeletal: Denies: Back pain, Extremity Pain Skin: Denies: Rash, Wounds Neurological: Denies: Headache, Weakness, Numbness Physical Exam Vital Signs/Narrative: Vital Signs Temp Pulse Resp BP Pulse Ox 06/11/19 20:31 68 16 97 06/11/19 20:30 98.4 F 69 17 181/76 H 97 Inital Vital Signs reviewed: Yes General: Well nourished, Well developed, No Acute Distress Head: Normocephalic, Atraumatic Eyes: Perrl, EOMI ENT: Moist mucous membranes, No rhinorrhea Neck: Supple, Nontender Cardiovascular: Regular rate, Regular rhythm, No murmurs Respiratory: No distress, CTA bilaterally, Chest nontender Abdomen: Soft, Nontender, Nondistended, Normal bowel sounds Back: Nontender, Normal Inspection Extremities: Nontender, No edema Skin: Normal color, No rash Neurological: Alert, Oriented x3, Cranial nerves II-XII grossly intact, Normal Strength, Normal Sensation Psychological: Normal affect, Normal Mood Diagnostic/Tx/Re-eval Abnormal Lab Results 06/11/19 06/11/19 06/11/19 20:34 20:55 20:55 WBC 7.2 RBC 4.07 L Hgb 11.2 L Hct 33.5 L MCV 82.3 MCH 27.5 MCHC 33.4 RDW Std Deviation 37.9 RDW Coeff of Harry 12.7 Plt Count 249 MPV 9.5 Immature Gran % (Auto) 1.000 H Neut % (Auto) 63.5 Lymph % (Auto) 23.7 [place] % (Auto) 8.6 Eos % (Auto) 2.8 Baso % (Auto) 0.4 Absolute Neuts (auto) 4.6 Absolute Lymphs (auto) 1.70 Nucleated RBC % 0 Sodium 141 Potassium 3.9 Chloride 108 H Carbon Dioxide 27.0 Anion Gap 6 BUN 48 H Creatinine 1.31 H Estim Creat Clear Calc 59.22 Est GFR (MDRD) Af Amer 71 Est GFR (MDRD) Non-Af 59 L BUN/Creatinine Ratio 36.6 H Glucose 152 H Calcium 8.3 L Total Bilirubin 0.20 AST 12 L ALT 23 Alkaline Phosphatase 127 H Total Protein 6.3 L Albumin 3.0 L Globulin 3.3 Albumin/Globulin Ratio 0.9 Urine Color Urine Clarity Urine pH Ur Specific [place] Urine Protein Urine Glucose (UA) Urine Ketones Urine Occult Blood Urine Nitrite Urine Bilirubin Urine Urobilinogen Ur Leukocyte Esterase Urine RBC Urine WBC Ur Squamous Epith Cells Urine Bacteria Hyaline Casts Urine Mucus POC Glucose 162 H 06/11/19 06/11/19 21:18 21:59 WBC RBC Hgb Hct MCV MCH MCHC RDW Std Deviation RDW Coeff of Harry Plt Count MPV Immature Gran % (Auto) Neut % (Auto) Lymph % (Auto) [place] % (Auto) Eos % (Auto) Baso % (Auto) Absolute Neuts (auto) Absolute Lymphs (auto) Nucleated RBC % Sodium Potassium Chloride Carbon Dioxide Anion Gap BUN Creatinine Estim Creat Clear Calc Est GFR (MDRD) Af Amer Est GFR (MDRD) Non-Af BUN/Creatinine Ratio Glucose Calcium Total Bilirubin AST ALT Alkaline Phosphatase Total Protein Albumin Globulin Albumin/Globulin Ratio Urine Color Yellow Urine Clarity Clear Urine pH 5.0 Ur Specific [place] 1.020 Urine Protein 500 H Urine Glucose (UA) 1000 H Urine Ketones Negative Urine Occult Blood 25 H Urine Nitrite Negative Urine Bilirubin Negative Urine Urobilinogen Normal Ur Leukocyte Esterase Negative Urine RBC 0 SEEN Urine WBC 0-5 SEEN Ur Squamous Epith Cells 0 SEEN Urine Bacteria 0 SEEN Hyaline Casts 5-10 SEEN Urine Mucus 0 SEEN POC Glucose 106 - Medical Decision Making Patient is very well-appearing. His neuro exam is nonfocal. He had a blood sugar that was over 400, but on arrival he was already down to 200. IV was established. Patient was given fluids and was observed. His repeat blood sugar was down to 100 and he is feeling markedly improved. He does have some mild renal insufficiency, but was aggressively hydrated. He has no anion gap. His liver functions are unremarkable. On reevaluation, he is eating without issue. At this point, I do feel he is safe for outpatient therapy. He is comfortable with this plan of care and will be discharged home. Impression 1. Hyperglycemia-resolved ED Disposition - Plan for ED Patient: Instructions: ED Diabetic Hyperglycemia Referrals: Vera Lucas MD [Primary Care Provider] -
[2019-06-11 21:18] LABS: Absolute Neutrophil Count 4.6 X10^3/uL (2.0-7.7); Basophil# 0.03 X10^3/uL; Basophil% 0.4 % (0-1); Eosinophils% 2.8 % (0-5); Hematocrit 33.5 % (40-54); Hemoglobin 11.2 g/dL (13.0-16.5); Lymphocyte % 23.7 % (19-41); Mean Corp Hgb Conc 33.4 g/dL (32-36); Mean Corpuscular Hgb 27.5 pg (27.0-32.0); Mean Corpuscular Volume 82.3 fL (80-94); Mean Platelet Vol. 9.5 fl (6.2-12.0); Monocyte# 0.62 X10^3/uL; Monocyte% 8.6 % (0-10); NRBC Flagged by Analyzer 0 % (0-5); Neutrophil # 4.55 X10^3/uL (2.7-7.7); Neutrophil % 63.5 % (47-70); Platelet Count 249 K/mm3 (150-450); RBC Distribution Width CV 12.7 % (11.6-14.6); RBC Distribution Width SD 37.9 fl (35.1-43.9); Red Blood Count 4.07 M/mm3 (4.6-6.2); White Blood Count 7.2 K/mm3 (4.4-11.0)
[2019-06-11 21:22] LABS: Bacteria 0 SEEN /hpf (None Seen); Mucous, Urine 0 SEEN /hpf (<or=2+); Red Blood Cells-Urine 0 SEEN /hpf (0-5); Squamous Epithelial Cells - UA 0 SEEN /hpf (0-5)
[2019-06-11 21:56] LABS: Color, Urine Yellow (Yellow); Glucose, Dipstick 1000 mg/dl (Normal); Ketone-Dipstick Negative (Negative); Leukocyte Esterase-Dipstick Negative /ul (Negative); Nitrite-Dipstick Negative (Negative); Occult Blood-Urine 25 /ul (Negative); Protein-Dipstick 500 mg/dl (Negative); Urine Bilirubin Dipstick Negative (Negative); Urine Clarity Clear (Clear); Urine Urobilinogen Normal (Normal)
[2019-06-11 22:06] LABS: Bedside Glucose 106 mg/dL (70-110)
[2019-06-11 22:07] LABS: Hyaline Cast 5-10 SEEN /lpf (0-5); White Blood Cells 0-5 SEEN /hpf (0-5)
[2019-06-11 22:08] LABS: ALB/GLOB Ratio 0.9 RATIO (0.9-2.4); AST(SGOT) 12 U/L (15-37); Alanine Aminotransfer ALT/SGPT 23 U/L (16-61); Alkaline Phosphatase 127 U/L (45-117); Anion Gap 6 (5-15); BUN 48 mg/dL (7-18); BUN/Creat Ratio 36.6 RATIO (10-20); Calcium,Total 8.3 mg/dL (8.5-10.1); Chloride 108 mmol/L (98-107); Creatinine, Serum 1.31 mg/dL (0.70-1.30); EST Glomerular Filtration Rate 59 mL/min (>60); Est Glom Filt Rate - Afr Amer 71 mL/min (>60); Estimated Creatinine Clearance 59.22 ml/min; Globulin 3.3 g/dL (2.2-4.2); Glucose 152 mg/dL (74-106); Potassium 3.9 mmol/L (3.5-5.1); Protein, Total 6.3 g/dL (6.4-8.2); Sodium Level 141 mmol/L (136-145)
[2019-06-11 22:32] VITALS: BP 146/83; PULSE 69; RESP 16; O2SAT 98
== END 2019-06-11 22:32 | disposition home or self-care (01) ==
LOC: ED 20:59
PROVIDERS: Emergency Provider Emergency Medicine; Family Provider Internal Medicine; PCP Internal Medicine
DX: E11.65 Type 2 diabetes mellitus with hyperglycemia (principal); I10 Essential (primary) hypertension; Z79.4 Long term (current) use of insulin; Z79.02 Long term (current) use of antithrombotics/antiplatelets; Z79.82 Long term (current) use of aspirin; Z79.899 Other long term (current) drug therapy; Z86.73 Personal history of transient ischemic attack (TIA), and cerebral infarction without residual deficits; Z87.891 Personal history of nicotine dependence
CPT/HCPCS: 36415; 80053; 81001; 82962; 85025; 96360; 99284; J7030; A4216

== ENCOUNTER 2019-06-27 14:41 | Emergency (ER) | payer MEDICAID, SELFPAY ==
[2019-06-27 14:43] VITALS: BP 191/94; PULSE 73; RESP 20; TEMP 36.8; O2SAT 98; BMI 25.1
--- NOTE | 2019-06-27 15:16 | ED.DCSUM_ITS ---
- ER Visit Summary Date of Service: 06/27/19 Chief Complaint: Rash History of Present Illness: The patient is a 63 M who complains of a rash to his right lower leg. He noted this suddenly just prior to arrival. He was scratching the area and noted some bleeding. Denies any history of blood thinners. Denies fever or systemic symptoms. Denies any other rash or skin complaints. Physical Examination: Patient has multiple linear excoriations to his lower leg. His fingernails are very long. There is an area that shows some deeper abrasions that were oozing blood. The blood is now dry. He is neurovascular intact distally. Otherwise skin is normal. Test Results: None indicated Emergency Department Course and Treatment: Patient does not have a rash, and it appears more to be consistent with abrasions. The bleeding has stopped. There is nothing to suture. We will clean and dress the wound. Bacitracin applied. Prescription for antibiotic ointment. I advised him to cut his fingernails. Treatment Plan: As above Disposition: Discharge Impression: 1. Right leg abrasions This note was generated with [employer] dictation software. It may contain incorrect words, spelling, and punctuation that were not noted in review of the chart prior to signing ED Disposition - Plan for ED Patient: Referrals: Vera Lucas MD [Primary Care Provider] -
--- NOTE | 2019-06-27 15:18 | ED.DEP ---
ED Disposition - Plan for ED Patient: Instructions: Abrasion Prescriptions: Bacitracin Ointment 1 applic TOPICAL TID #1 tube Prescription Printed Referrals: Vera Lucas MD [Primary Care Provider] -
== END 2019-06-27 15:38 | disposition home or self-care (01) ==
LOC: ED 15:31
PROVIDERS: Emergency Provider Emergency Medicine; Family Provider Internal Medicine; PCP Internal Medicine
DX: S80.811A Abrasion, right lower leg, initial encounter (principal); X58.XXXA Exposure to other specified factors, initial encounter; Y93.9 Activity, unspecified; Y92.9 Unspecified place or not applicable; Y99.9 Unspecified external cause status; E11.9 Type 2 diabetes mellitus without complications; I10 Essential (primary) hypertension; Z79.82 Long term (current) use of aspirin; Z79.4 Long term (current) use of insulin; Z79.899 Other long term (current) drug therapy; Z86.73 Personal history of transient ischemic attack (TIA), and cerebral infarction without residual deficits; Z87.891 Personal history of nicotine dependence; Z95.0 Presence of cardiac pacemaker
CPT/HCPCS: 99282

== ENCOUNTER 2019-07-21 13:51 | Emergency (ER) | payer MEDICAID, SELFPAY ==
[2019-07-21 13:53] VITALS: BP 188/92; PULSE 81; RESP 16; TEMP 36.7; O2SAT 99; BMI 25.8
[2019-07-21 13:56] VITALS: BP 213/79; PULSE 74; RESP 22; TEMP 36.4; O2SAT 98; BMI 25.8
[2019-07-21 14:00] VITALS: BP 213/79; PULSE 74; RESP 22; TEMP 36.4; O2SAT 98
--- NOTE | 2019-07-21 14:23 | RAD_ITS ---
STUDY: X-RAY CHEST REASON FOR EXAM: Male, 63 years old. Doesn''t feel well. TECHNIQUE: Frontal and lateral views of the chest. COMPARISON: April 25, 2019 FINDINGS: Stable mild hyperexpansion. There is no demonstrated pleural abnormality. Borderline cardiomegaly with dual lead cardiac pacer unchanged. Normal mediastinum and merna. Normal visualized pulmonary arteries. Normal visualized aortic arch and descending thoracic aorta. Normal visualized thoracic spine. Normal visualized ribs, clavicles, and shoulders. There is no demonstrated abnormality of the visualized soft tissue structures of the upper abdomen. RAD/Chest PA and Lateral IMPRESSION: Stable chest with no acute superimposed finding. Electronically Signed: Kevin Jones MD at 15:07 EST , Service support ,
--- NOTE | 2019-07-21 14:23 | EKG12_ITS ---
Test Reason : CP Blood Pressure : / mmHG Vent. Rate : 074 BPM Atrial Rate : 074 BPM P-R Int : 198 ms QRS Dur : 090 ms QT Int : 416 ms P-R-T Axes : 051 -10 -30 degrees QTc Int : 461 ms Normal sinus rhythm Voltage criteria for left ventricular hypertrophy Nonspecific ST and T wave abnormality Prolonged QT Abnormal ECG Confirmed by YESSICA PATEL ([id number]), index editor PETROS AG ([id number]) on 07/24/2019 12:57:49 PM Referred By: MIKE Confirmed By:YESSICA PATEL
--- NOTE | 2019-07-21 14:24 | ED.DCSUM_ITS ---
History of Present Illness Chief Complaint: Chest Pain Informant: Patient Onset: Yesterday - PM Activity at onset: Rest - sitting in chair, started suddenly Timing: Continuous Quality: Sharp Location: Left Chest - without radiation or pain in jaw, back, abd, arms, neck, shoulder Current Severity: Moderate Maximum Severity: Moderate Worsened By: Exertion, Movement of Torso, - - lying supine. Not Worsened By: Breathing, Coughing Relieved By: Remaining Still Associated Symptoms: Negative for: Nausea, Vomiting, Diaphoresis, Dyspnea, Cough, Fever, Lightheadedness, Palpitations Narrative: Patient states he has a pacemaker but no other known history of heart disease. Had a remote stress test but never had a heart cath or stent or other heart surgery. Compliant with his baby aspirin daily, no other antiplatelet or anticoagulant medications. Recent Illness/Hospitalization: No CVD Risk Factors: Hypertension, Diabetes, Hypercholesterolemia. Negative for: Family History 1' </=55, Smoking PE Risk Factors: Negative for: Recent Travel/Surgery, Recenet Immobilization, Prior DVT or PE, Cancer, OCP + Smoking + >/=35 - Past Medical History (1) CVA (cerebral vascular accident) Status: Chronic Comment: lacunar infarct in the right thalamus measures 5mm (2) Diabetes mellitus Status: Chronic (3) Essential (primary) hypertension Status: Chronic (4) HLD (hyperlipidemia) Status: Chronic (5) History of permanent cardiac pacemaker placement Status: Chronic (6) Paroxysmal supraventricular tachycardia Status: Chronic (7) Sick sinus syndrome Status: Chronic (8) History of carpal tunnel release Status: Resolved Past Medical History - Allergies and Home Meds Allergies/Adverse Reactions: Allergies No Known Allergies Allergy (Verified 07/21/19 13:55) Primary Care Physician: Vera Lucas MD [Primary Care Provider] - Surgical History: - - Carpal tunnel surgery Lives: With Family Smoking Status: Former smoker Drugs: None - Family History Paternal Family History: Reports: Heart Disease Maternal Family History: Reports: No pertinent history Review of Systems General: Denies: Chills, Fever, Sweats Eyes: Denies: Visual changes - bilaterally, Diplopia ENT: Denies: Rhinorrhea, Sore throat Cardiovascular: Reports: Chest pain. Denies: Palpitations Respiratory: Denies: Dyspnea, Cough, Dyspnea on exertion Gastrointestinal: Denies: Abdominal pain, Nausea, Vomiting, Diarrhea, Melena, Hematochezia Genitourinary: Denies: Dysuria, Hematuria, Frequency Musculoskeletal: Denies: Neck pain, Back pain, Swelling, Extremity Pain Skin: Denies: Rash, Wounds Neurological: Denies: Headache, Weakness, Numbness Physical Exam Vital Signs/Narrative: Vital Signs Temp Pulse Resp BP Pulse Ox 07/21/19 14:00 97.5 F L 74 22 H 213/79 H 98 07/21/19 13:56 97.5 F L 74 22 H 213/79 H 98 07/21/19 13:53 98.1 F 81 16 188/92 H 99 Inital Vital Signs reviewed: Yes General: Well nourished, Well developed, Unkempt, No Acute Distress Head: Normocephalic, Atraumatic Eyes: Perrl, EOMI ENT: Moist mucous membranes, No rhinorrhea Neck: Supple, Nontender, No lymphadenopathy, No JVD Cardiovascular: Regular rate, Regular rhythm, No murmurs, Normal S2, - - Split S1. Negative for: Tachycardia Respiratory: No distress, CTA bilaterally, Chest tenderness - Reproducing his discomfort, approximately left fourth intercostal space from the midclavicular line over to the midaxillary line. No crepitance, normal inspection of this area. Abdomen: Soft, Nontender, Nondistended, Normal bowel sounds Back: Nontender, Normal Inspection Extremities: Nontender, No edema. Negative for: Calf Tenderness Skin: Normal color, No rash, No Trauma Neurological: Alert, Oriented x3, Cranial nerves II-XII grossly intact, Normal Strength, Normal Sensation, Normal Gait Psychological: Normal affect, Normal Mood Diagnostic/Tx/Re-eval Impressions Chest X-Ray 07/21/19 14:23 IMPRESSION: Stable chest with no acute superimposed finding. Electronically Signed: Kevin Jones MD at 15:07 EST , Service support , 07/21/19 14:23 Chest PA and Lateral [RAD] Stat Laboratory Results 07/21/19 07/21/19 07/21/19 13:58 13:58 13:58 WBC 7.5 RBC 4.27 L Hgb 11.6 L Hct 34.3 L MCV 80.3 MCH 27.2 MCHC 33.8 RDW Std Deviation 38.0 RDW Coeff of Harry 13.2 Plt Count 240 MPV 9.9 Immature Gran % (Auto) 1.100 H Neut % (Auto) 65.9 Lymph % (Auto) 23.5 [place] % (Auto) 6.4 Eos % (Auto) 2.8 Baso % (Auto) 0.3 Absolute Neuts (auto) 5.0 Absolute Lymphs (auto) 1.77 Nucleated RBC % 0 D-Dimer Quant (PE/DVT) Cancelled Sodium 141 Potassium 4.1 Chloride 108 H Carbon Dioxide 29.0 Anion Gap 4 L BUN 22 H Creatinine 1.25 Estim Creat Clear Calc 60.04 Est GFR (MDRD) Af Amer 75 Est GFR (MDRD) Non-Af 62 BUN/Creatinine Ratio 17.6 Glucose 395 H Calcium 8.5 Troponin I < 0.015 07/21/19 14:42 WBC RBC Hgb Hct MCV MCH MCHC RDW Std Deviation RDW Coeff of Harry Plt Count MPV Immature Gran % (Auto) Neut % (Auto) Lymph % (Auto) [place] % (Auto) Eos % (Auto) Baso % (Auto) Absolute Neuts (auto) Absolute Lymphs (auto) Nucleated RBC % D-Dimer Quant (PE/DVT) 0.54 H* Sodium Potassium Chloride Carbon Dioxide Anion Gap BUN Creatinine Estim Creat Clear Calc Est GFR (MDRD) Af Amer Est GFR (MDRD) Non-Af BUN/Creatinine Ratio Glucose Calcium Troponin I - Rhythm Strip Rhythm Strip: Sinus Rhythm Rate: 74 Ectopy: None - EKG Initial EKG Interpretation: Sinus Rhythm, No Acute Injury Pattern, Inverted T-Waves - inferiorly, Non-Specific ST Changes - flattening laterally Prior: Unchanged - c/w 04/2019 Treatment: Toradol IV - Medical Decision Making X-ray unremarkable, his EKG shows some nonspecific T wave abnormalities that were present on his prior EKG in April, and his troponin is negative with discomfort that has been present all day more than 6 hours, ruling out acute coronary syndrome. Furthermore, his discomfort is reproducible with palpation of his intercostal/rib. His d-dimer is slightly abnormal however when corrected for his age, is within normal limits to rule out pulmonary embolus. He has no signs or symptoms of a DVT or specific risk factors and has been compliant with his aspirin. Therefore I do not think further work-up is necessary emergently at this time. He was given Toradol, and states that afterwards he feels much better. I think all of this is consistent with musculoskeletal etiology. He was given appropriate discharge instructions and I feel he can be safely discharged home. He was comfortable with that plan will follow-up if symptoms persist or return to the ER if he gets worse or new symptoms. ED Disposition - Plan for ED Patient: Disposition: Home or Assisted Living Diagnosis: Left-sided chest wall pain Instructions: CHEST WALL PAIN, Costochondritis Referrals: Vera Lucas MD [Primary Care Provider] - 3-5 Days if not improving
[2019-07-21 14:52] VITALS: BP 199/82; PULSE 69; RESP 22; O2SAT 98
[2019-07-21 14:53] LABS: Absolute Lymphocyte Count 1.77 X10^3/uL (0.83-4.51); Basophil# 0.02 X10^3/uL; Basophil% 0.3 % (0-1); Eosinophil# 0.21 X10^3/uL; Eosinophils% 2.8 % (0-5); Hematocrit 34.3 % (40-54); Hemoglobin 11.6 g/dL (13.0-16.5); Lymphocyte # 1.77 X10^3/ul (4.0); Lymphocyte % 23.5 % (19-41); Mean Corp Hgb Conc 33.8 g/dL (32-36); Mean Corpuscular Hgb 27.2 pg (27.0-32.0); Mean Corpuscular Volume 80.3 fL (80-94); Mean Platelet Vol. 9.9 fl (6.2-12.0); Monocyte# 0.48 X10^3/uL; Monocyte% 6.4 % (0-10); NRBC Flagged by Analyzer 0 % (0-5); Neutrophil # 4.98 X10^3/uL (2.7-7.7); Neutrophil % 65.9 % (47-70); Platelet Count 240 K/mm3 (150-450); RBC Distribution Width CV 13.2 % (11.6-14.6); Red Blood Count 4.27 M/mm3 (4.6-6.2); White Blood Count 7.5 K/mm3 (4.4-11.0)
[2019-07-21] MEDS: Ketorolac 15 MG/ML Vial IV (14:53)
[2019-07-21 15:00] VITALS: BP 194/80; PULSE 67; RESP 22; TEMP 36.9; O2SAT 96
[2019-07-21 15:00] LABS: D-Dimer Quantitative (DVT/PE) 0.54 FEU/ug/m (0.27-0.49)
[2019-07-21 15:33] LABS: Anion Gap 4 (5-15); BUN 22 mg/dL (7-18); BUN/Creat Ratio 17.6 RATIO (10-20); Calcium,Total 8.5 mg/dL (8.5-10.1); Chloride 108 mmol/L (98-107); Creatinine, Serum 1.25 mg/dL (0.70-1.30); EST Glomerular Filtration Rate 62 mL/min (>60); Est Glom Filt Rate - Afr Amer 75 mL/min (>60); Estimated Creatinine Clearance 60.04 ml/min; Glucose 395 mg/dL (74-106); Potassium 4.1 mmol/L (3.5-5.1); Sodium Level 141 mmol/L (136-145)
[2019-07-21 15:50] VITALS: BP 194/80; PULSE 63; RESP 18; O2SAT 99
== END 2019-07-21 15:51 | disposition home or self-care (01) ==
PROVIDERS: Emergency Provider Emergency Medicine; Family Provider Internal Medicine; PCP Internal Medicine
DX: R07.89 Other chest pain (principal); E11.9 Type 2 diabetes mellitus without complications; I10 Essential (primary) hypertension; E78.5 Hyperlipidemia, unspecified; I47.1 Supraventricular tachycardia; I49.5 Sick sinus syndrome; Z79.82 Long term (current) use of aspirin; Z79.02 Long term (current) use of antithrombotics/antiplatelets; Z79.4 Long term (current) use of insulin; Z79.899 Other long term (current) drug therapy; Z86.73 Personal history of transient ischemic attack (TIA), and cerebral infarction without residual deficits; Z87.891 Personal history of nicotine dependence; Z95.0 Presence of cardiac pacemaker
CPT/HCPCS: 71046; 80048; 84484; 85025; 85379; 93005; 96374; 99284; A4216

== ENCOUNTER 2019-08-19 16:52 | Emergency (ER) | payer MEDICAID, SELFPAY ==
[2019-08-19 16:55] VITALS: BP 189/101; PULSE 75; RESP 16; TEMP 36.7; O2SAT 98; BMI 25.1
--- NOTE | 2019-08-19 17:55 | RAD_ITS ---
STUDY: X-RAY - LEFT KNEE REASON FOR EXAM: Male, 63 years old. LEFT KNEE PAIN AFTER FALL TECHNIQUE: 4 view(s) of the knee. COMPARISON: None. FINDINGS: No fracture or dislocation. Irregularity of the subcortical bone of the lateral femoral articular surface suggests osteochondral lesions. Bony structures are otherwise unremarkable. There is marked anterior soft tissue swelling. RAD/Knee 4 or More Views IMPRESSION: 1. Soft tissue swelling. Otherwise no acute findings. 2. Degenerative changes or osteochondral lesions of the lateral femoral articular surface. Electronically Signed: Michelle Rivera MD at 18:24 EST Tel , Service support ,
[2019-08-19] MEDS: Ibuprofen 600 MG Tablet PO (18:12)
--- NOTE | 2019-08-19 18:26 | ED.VIS.GEN ---
History of Present Illness Chief Complaint: Fall Onset: Today Narrative: Patient was going up stairs when he fell landing on his left knee. He notes abrasion and swelling. Painful range of motion. Last tetanus shot was under 5 years ago. He denies any injury to his trunk head neck or back. Past Medical History - Allergies and Home Meds Allergies/Adverse Reactions: Allergies No Known Allergies Allergy (Verified 08/19/19 16:55) Primary Care Physician: Vera Lucas MD [Primary Care Provider] - Surgical History: - - Carpal tunnel surgery Smoking Status: Former smoker - Family History Paternal Family History: Reports: Heart Disease Maternal Family History: Reports: No pertinent history Review of Systems General: Denies: Chills, Fever, Sweats Eyes: Denies: Visual changes - bilaterally, Diplopia ENT: Denies: Rhinorrhea, Sore throat Cardiovascular: Denies: Chest pain, Palpitations Respiratory: Denies: Dyspnea, Cough, Dyspnea on exertion Gastrointestinal: Denies: Abdominal pain, Nausea, Vomiting, Diarrhea, Melena, Hematochezia Genitourinary: Denies: Dysuria, Hematuria, Frequency Musculoskeletal: Denies: Back pain, Extremity Pain Skin: Denies: Rash, Wounds Neurological: Denies: Headache, Weakness, Numbness Physical Exam Vital Signs/Narrative: Vital Signs Temp Pulse Resp BP Pulse Ox 08/19/19 16:55 98.1 F 75 16 189/101 H 98 Inital Vital Signs reviewed: Yes General: Well nourished, Well developed, No Acute Distress Head: Normocephalic, Atraumatic Eyes: Perrl, EOMI ENT: Moist mucous membranes, No rhinorrhea Neck: Supple, Nontender Cardiovascular: Regular rate, Regular rhythm, No murmurs Respiratory: No distress, CTA bilaterally, Chest nontender Abdomen: Soft, Nontender, Nondistended, Normal bowel sounds Back: Nontender, Normal Inspection Extremities: No edema, Tenderness, - - Left knee shows swelling around the patella. Extensor mechanism is intact. There is superficial abrasion. There is also a superficial abrasion to the anterior leg along the tibial shaft. Skin: Normal color, No rash Neurological: Alert, Oriented x3, Cranial nerves II-XII grossly intact, Normal Strength, Normal Sensation Psychological: Normal affect, Normal Mood Diagnostic/Tx/Re-eval - Medical Decision Making X-rays were negative for fracture. He will be discharged home with supportive care. Wound was cleansed and dressed and knee was wrapped with Chris wrap. ED Disposition - Plan for ED Patient: Disposition: Home or Assisted Living Diagnosis: Contusion of left knee, Abrasion, left knee, initial encounter Instructions: CONTUSION, Lower Extremity, Abrasion Referrals: Vera Lucas MD [Primary Care Provider] - As Needed
== END 2019-08-19 18:51 | disposition home or self-care (01) ==
PROVIDERS: Emergency Provider Emergency Medicine; Family Provider Internal Medicine; PCP Internal Medicine
DX: S80.02XA Contusion of left knee, initial encounter (principal); W10.9XXA Fall (on) (from) unspecified stairs and steps, initial encounter; Y93.9 Activity, unspecified; Y92.9 Unspecified place or not applicable; Y99.9 Unspecified external cause status; Z79.82 Long term (current) use of aspirin; Z79.4 Long term (current) use of insulin; Z79.899 Other long term (current) drug therapy; Z87.891 Personal history of nicotine dependence
CPT/HCPCS: 73564; 99283

== ENCOUNTER 2019-08-20 15:10 | Observation (INO) | payer MEDICAID, SELFPAY ==
[2019-08-19 16:55] VITALS: BMI 25.1
[2019-08-20] VITALS (13 sets, daily range): BP systolic 177–210; BP diastolic 89–96; PULSE 84–100; RESP 12–25; TEMP 36.5–37.1; O2SAT 94–99; BMI 11.1; BMI 24.5; BMI 24.6; BMI 23.3
--- NOTE | 2019-08-20 15:11 | EKG12_ITS ---
Test Reason : NEURO Blood Pressure : / mmHG Vent. Rate : 087 BPM Atrial Rate : 087 BPM P-R Int : 206 ms QRS Dur : 096 ms QT Int : 412 ms P-R-T Axes : 032 -17 044 degrees QTc Int : 495 ms Normal sinus rhythm Voltage criteria for left ventricular hypertrophy Nonspecific ST and T wave abnormality Prolonged QT Abnormal ECG Confirmed by BRIELLE VILLA, KIMBERLY ([id number]), market editor [employer] ([id number]) on 08/23/2019 9:55:59 AM Referred By: KAMINI Confirmed By:PELON HANNAH MD
--- NOTE | 2019-08-20 15:11 | CT_ITS ---
STUDY: CT BRAIN WITHOUT CONTRAST REASON FOR EXAM: Male, 63 years old. STROKE, LEFT SIDED Weakness, hx HTN AND DIABETIC RADIATION DOSAGE (If Supplied By Facility): CTDIvol = ( 60.81 ) mGy, DLP = ( 1067.08 ) mGycm TECHNIQUE: Transaxial CT imaging of the brain was performed without administration of intravenous contrast material. Individualized dose optimization techniques were used for this CT. COMPARISON: Comparison is made with prior study dated February 18, 2019. FINDINGS: Normal soft tissue structures. Normal calvarium. There is mild cerebral atrophy with widening of the extra-axial spaces and ventricular dilatation. There are areas of decreased attenuation within the white matter tracts of the supratentorial brain, consistent with microvascular disease changes. Evidence of old small bilateral lacunar infarcts. Normal brainstem. Normal cerebellum. There is no intracranial hemorrhage. There are no findings of an acute ischemic infarction. Atherosclerotic calcification of the cavernous portions of the internal carotid arteries bilaterally. Normal visualized paranasal sinuses. CT/Brain/Head without Contrast IMPRESSION: Chronic involutional changes of the brain. N.B. : The above information has been verbally conveyed by Joseph Denton to Eugenia Espana on 08/20/2019 15:26:00 (ET). Electronically Signed: Joseph Denton, at 15:27 EST , Service support ,
--- NOTE | 2019-08-20 15:15 | ED.DCSUM_ITS ---
- ER Visit Summary Date of Service: 08/20/19 Chief Complaint: Left-sided weakness, slurred speech History of Present Illness: The patient is a 63 M presenting with left-sided weakness and slurred speech. This began 2 hours prior to arrival. BGT per EMS was over 300. Patient has history of previous stroke. He is on aspirin and Plavix. He states he went to bed last night at 7 PM. He states he woke up at 1 PM today. At that time he noted slurred speech. He went back to sleep. He woke up an hour later and his girlfriend noted slurred speech and EMS was called. He was also seen in the ED yesterday after mechanical fall. He has abrasion and pain to his left knee. He did not hit his head with the fall. Physical Examination: Vitals are stable. Patient is afebrile. Alert no acute distress. HEENT exam is unremarkable. Neck is supple. Lungs are clear and equal bilaterally. Heart is regular rate and rhythm. Abdomen is soft nontender nondistended. Extremities left knee abrasion Skin is warm and dry. NIH 2: 1 dysarthria, 1 sensation Remainder of exam is unremarkable. Emergency Department Course and Treatment: [place] team was called on patient's arrival. Patient was evaluated by [facility] neurology. He is not felt to be a TPA ca ndidate with repeat NIH now 1 for dysarthria. He will be admitted for further stroke work-up. CT head shows chronic changes. CBC, chemistries unremarkable other than glucose 294. INR 1.0. Troponin is negative. EKG is sinus rate of 87 with LVH. Will discuss with the hospitalist for admission. Disposition: Admission Impression: Dysarthria This note was generated with [employer] dictation software. It may contain incorrect words, spelling, and punctuation that were not noted in review of the chart prior to signing ED Disposition - Plan for ED Patient: Referrals: Vera Lucas MD [Primary Care Provider] -
--- NOTE | 2019-08-20 15:18 | NURSING ---
[id number] STROKE ALERT CALLED, PRIOR TO ARRIVAL
[2019-08-20 15:30] LABS: Absolute Lymphocyte Count 0.98 X10^3/uL (0.83-4.51); Absolute Neutrophil Count 4.5 X10^3/uL (2.0-7.7); Basophil# 0.01 X10^3/uL; Basophil% 0.2 % (0-1); Eosinophil# 0.06 X10^3/uL; Hemoglobin 11.1 g/dL (13.0-16.5); Lymphocyte # 0.98 X10^3/ul (4.0); Lymphocyte % 16.6 % (19-41); Mean Corp Hgb Conc 33.6 g/dL (32-36); Mean Corpuscular Hgb 26.9 pg (27.0-32.0); Mean Corpuscular Volume 79.9 fL (80-94); Mean Platelet Vol. 9.3 fl (6.2-12.0); Monocyte# 0.33 X10^3/uL; Monocyte% 5.6 % (0-10); NRBC Flagged by Analyzer 0 % (0-5); Neutrophil # 4.46 X10^3/uL (2.7-7.7); Neutrophil % 75.8 % (47-70); Platelet Count 211 K/mm3 (150-450); RBC Distribution Width CV 12.7 % (11.6-14.6); RBC Distribution Width SD 36.3 fl (35.1-43.9); Red Blood Count 4.13 M/mm3 (4.6-6.2); White Blood Count 5.9 K/mm3 (4.4-11.0)
[2019-08-20 15:37] LABS: Prothrombin Time (Protime)PT. 12.6 SECONDS (11.7-14.9)
[2019-08-20 15:38] LABS: Partial Thromboplast Time 24.7 Seconds (24.1-36.2)
--- NOTE | 2019-08-20 15:54 | RAD_ITS ---
STUDY: X-RAY CHEST REASON FOR EXAM: Male, 63 years old. SOB, LEFT SIDED WEAKNESS AND SLURRED SPEECH; -- ICD TECHNIQUE: Portable chest. COMPARISON: 07/21/2019. FINDINGS: The lungs are clear and expanded. There is no demonstrated pleural abnormality. Normal size heart. Normal mediastinum and merna. Normal visualized pulmonary arteries. Normal visualized aortic arch and descending thoracic aorta. Normal visualized thoracic spine. Normal visualized ribs, clavicles, and shoulders. There is no demonstrated abnormality of the visualized soft tissue structures of the upper abdomen. RAD/Chest 1 View IMPRESSION: Normal x-ray examination of the chest. Electronically Signed: Michelle Rivera MD at 16:24 EST Tel , Service support ,
[2019-08-20 15:56] LABS: Anion Gap 6 (5-15); BUN 21 mg/dL (7-18); BUN/Creat Ratio 18.8 RATIO (10-20); Calcium,Total 8.8 mg/dL (8.5-10.1); Chloride 110 mmol/L (98-107); Creatinine, Serum 1.12 mg/dL (0.70-1.30); EST Glomerular Filtration Rate 71 mL/min (>60); Est Glom Filt Rate - Afr Amer 86 mL/min (>60); Estimated Creatinine Clearance 71.52 ml/min; Glucose 294 mg/dL (74-106); Potassium 3.7 mmol/L (3.5-5.1); Sodium Level 142 mmol/L (136-145)
--- NOTE | 2019-08-20 16:33 | HP.PCM_ITS ---
History of Present Illness Date of Admission: 08/20/19 Chief Complaint: slurred speech The patient is a 63 year old M with an extensive past medical history as listed. He was admitted through the ED on 08/20/2019 with a complaint of slurring of his speech. Patient's last known well was around 7 PM on the night before admission. At around 12 midnight, his girlfriend said he woke up and she noted that he was slurring his speech. He went back to sleep and on waking up this morning, slurring of speech was still persistent so they decided to bring him into the ED as he had had some slurring of speech before. Patient denied any headache, blurred vision, but admitted to some tingling and numbness in his r ight lower extremity. He denied any chest pain or palpitations, dizziness, abdominal pain, diarrhea or vomiting. His friend was by him at time of review also said he had noticed that he had a bit of mouth droop on the left. The ED, vitals were significant for blood pressure 177/93 at time of review. Vitals were otherwise stable and he was saturating at 99% on 2 L of oxygen. Chemistry was unremarkable and CBC showed hemoglobin of 11.1 was otherwise unremarkable. Glucose was 294 initial troponin was less than 0.015. CT of the brain showed only chronic involutional changes. EKG showed no acute ST changes. NIH stroke scale on admission in the ED was 2. [facility] tele-stroke was consulted but did not think patient met criteria for TPA administration. He has been admitted to rule out stroke. [] Past Medical History Past Medical History (Chronic Problems): Chronic Problems (Last Updated 04/04/19 @ 20:27 by Renee Diaz) Diabetes mellitus (Chronic) Paroxysmal supraventricular tachycardia (Chronic 06/2017) Complete heart block (Chronic 02/2019) History of permanent cardiac pacemaker placement (Chronic 03/05/19) Essential (primary) hypertension (Chronic) Sick sinus syndrome (Chronic) CVA (cerebral vascular accident) (Chronic 02/2019) lacunar infarct in the right thalamus measures 5mm Sinus pause (Chronic) HLD (hyperlipidemia) (Chronic) Medical History: Medical History (Last Updated 04/04/19 @ 20:27 by Renee Diaz) Paroxysmal supraventricular tachycardia (Chronic) Onset Date: 06/2017 I47.1 Complete heart block (Chronic) Onset Date: 02/2019 I44.2 Essential (primary) hypertension (Chronic) I10 Sick sinus syndrome (Chronic) I49.5 CVA (cerebral vascular accident) (Chronic) Onset Date: 02/2019 I63.9 lacunar infarct in the right thalamus measures 5mm Sinus pause (Chronic) I45.5 HLD (hyperlipidemia) (Chronic) E78.5 Type II diabetes mellitus, uncontrolled E11.65 Tachyarrhythmia (Resolved) R00.0 Allergies No Known Allergies Allergy (Verified 08/19/19 16:55) Home Medications: Ambulatory Orders Medication Instructions Recorded metFORMIN (XR) [Glucophage Xr] 1,000 mg PO BID 10/06/15 Aspirin [Aspirin, Baby] 81 mg PO DAILY 03/04/19 Atorvastatin Calcium [Lipitor] 80 mg PO DAILY 03/04/19 Multivitamin [Daily Yousuf] 1 tab PO DAILY 03/04/19 Amlodipine [Norvasc] 5 mg PO DAILY 04/25/19 Clopidogrel Bisulfate [Clopidogrel] 75 mg PO DAILY 04/25/19 Metoprolol Succinate [Toprol Xl] 100 mg PO DAILY 04/25/19 Insulin Lispro [Humalog KwikPen] 5 unit SQ TID #1 insuln.pen 04/26/19 Melatonin 3 mg PO QHS 06/11/19 Bacitracin Ointment 1 applic TOPICAL TID #1 tube 06/27/19 Insulin Glargine [Lantus SoloStar 8 units SUBCUT QHS 08/20/19 Pen] Lisinopril [Zestril] 40 mg PO DAILY 08/20/19 Surgical History: Surgical History (Last Updated 04/04/19 @ 20:24 by Renee Diaz) History of carpal tunnel release (Resolved) Z98.890 History of permanent cardiac pacemaker placement (Chronic) Onset Date: 03/05/19 Z95.0 Surgical History: - - Carpal tunnel surgery Psychiatric History: No pertinent psych hx Lives: Spouse/ Significant Other Smoking Status: Former smoker Alcohol: None Drugs: None - *Family History Paternal History Items: Heart Disease Maternal History Items: No pertinent history Review of Systems Constitutional: Denies: Chills, Fever, Malaise, Weakness, Weight Change, Fatigue Eyes: Denies: Blurred vision, Double vision HEENT: Denies: Head Aches, Sinus Congestion, Sinus Drainage Cardiovascular: Denies: Chest Pain, Chest Pressure, Chest Tightness Respiratory: Denies: Cough, Shortness of Breath, Shortness of breath at rest, Shortness of breath upon exertion, Sputum production Gastrointestinal: Denies: Abdominal Pain, Nausea, Vomiting Genitourinary: Denies: Dysuria Musculoskeletal: Denies: Joint Pain, Joint Tenderness Skin: Denies: Rash, Wounds Neurological: Reports: Change in Speech, Slurred speech, Numbness, Tingling. Denies: Balance problems, Blurred vision, Confusion, Difficulty swallowing, Focal weakness, Headaches, Incoordination, Tremor, Seizures Psychiatric: Denies: Anxiety, Depression, Homicidal Ideations, Suicidal Ideations Hematologic/ Lymphatic: Denies: Easy Bruising, Easy Bleeding VTE Information - Inpt Only VTE Present on Admission: No VTE Pharm Prophylaxis ordered?: Yes - Physical Exam Vitals/I&O's: Vital Signs Temp Pulse Resp BP Pulse Ox 97.7 F L 89 16 208/96 H 98 08/20/19 15:12 08/20/19 16:10 08/20/19 16:10 08/20/19 16:10 08/20/19 16:10 Oxygen Flow Rate (L/min) 2 Oxygen Delivery Method Nasal Cannula Weight: 171 lb 4.787 oz Body Mass Index (BMI) 24.5 Finger Stick Blood Glucose 339 General: Alert, Oriented x3, Cooperative, No apparent distress, Lethargic HEENT: Atraumatic, PERRLA, EOMI, Normocephalic Oral: Dry Mucosa Neck: Supple, No JVD, Negative Carotid Bruits Lungs: Clear to auscultation, Normal air movement, No rhonchi, No wheeze Cardiovascular: Regular rate, Regular Rhythm, Normal S1, Normal S2, No murmurs Abdomen: Bowel Sounds Present, Soft, Non Tender, Non-Distended, No Hepato- splenomegaly Extremities: No clubbing, No cyanosis, No edema, Capillary Refill Less than 3 Seconds Skin: No rashes, No breakdown Musculoskeletal: No Tenderness to Palpation of Joints or Extremities Lymphatic: No Cervical, Supraclavicular, or Inguinal Adenopathy Neurological: Facial Droop - very mild left facial droop, with minimal flattening of nasolabial folds; mildly decreased sensation to light touch to RLE. NIHSS is 7 Psych/Mental Status: Flat Affect, Alert and oriented to time, place, person, mood and affect Laboratory Results 08/20/19 15:25: WBC 5.9, RBC 4.13 L, Hgb 11.1 L, Hct 33.0 L, MCV 79.9 L, MCH 26.9 L, MCHC 33.6, RDW Std Deviation 36.3, RDW Coeff of Harry 12.7, Plt Count 211, MPV 9.3, Immature Gran % (Auto) 0.800, Neut % (Auto) 75.8 H, Lymph % (Auto) 16 .6 L, [place] % (Auto) 5.6, Eos % (Auto) 1.0, Baso % (Auto) 0.2, Absolute Neuts (auto) 4.5, Absolute Lymphs (auto) 0.98, Nucleated RBC % 0 08/20/19 15:25: PT 12.6, INR 1.0, APTT 24.7 08/20/19 15:25: Sodium 142, Potassium 3.7, Chloride 110 H, Carbon Dioxide 26.0, Anion Gap 6, BUN 21 H, Creatinine 1.12, Estim Creat Clear Calc 71.52, Est GFR (MDRD) Af Amer 86, Est GFR (MDRD) Non-Af 71, BUN/Creatinine Ratio 18.8, Glucose 294 H, Calcium 8.8, Troponin I < 0.[address] 08/20/19 15:11 IMPRESSION: Chronic involutional changes of the brain. N.B. : The above information has been verbally conveyed by Joseph Denton to [facility] on 08/20/2019 15:26:00 (ET). Electronically Signed: Joseph Denton, at 15:27 EST , Service support , ADDENDUM: 08/20/19 1534 IMPRESSION: Chronic involutional changes of the brain. N.B. : The above information has been verbally conveyed by Joseph Denton to [facility] on 08/20/2019 15:26:00 (ET). Electronically Signed: Joseph Denton, at 15:27 EST , Service support , Chest X-Ray 08/20/19 15:54 IMPRESSION: Normal x-ray examination of the chest. Electronically Signed: Michelle Rivera MD at 16:24 EST Tel , Service support , Assessment/Plan All Active Problems (Last Updated 04/04/19 @ 20:27 by Renee Diaz) Chest pain (Acute) History of carpal tunnel release (Resolved) Tachyarrhythmia (Resolved) 63 y/o admitted with a complaint of slurred speech 1. Dysarthria, to rule out CVA * admit to PCU with telemetry * NIH stroke scale when I reviewed patient was approximately 7. I discussed with ED doctor who said it was 2 when she did it and it was 1 when [facility] tele- neurology did NIHSS; they thought that the mild drift in his lower extremities was due to the pain he had from a fall he sustained yesterday but he was able to sustain the lumbar elevation when prompted. * CT of the brain was negative. Blood pressures in the 170s on review. * Get stat MRI of the brain and MRA of the head and neck. * 2D echo(02/18/19): EF of 55% with evidence of diastolic dysfunction and no regional wall motion abnormalities seen with RVSP of 30 mmHg. * Patient did have a stroke back in February 2019 and per documentation had a lacunar infarct in the right thalamus measuring 5 mm * Check NIH stroke scale and neuro checks every 2 hourly * Consult neurology once MRI is done. * For dysphagia screening. N.p.o. until he passes dysphagia screening. * old Blood pressure meds for now to allow for permissive hypertension. * on aspirin and plavix and high intensity statin. * check lipid panel and A1C * He does appear patient also had a stroke in February 2019. He will therefore benefit from 30-day event monitor to assess for arrhythmia causing stroke. * patient cannot have MRI done today as he will need his pacemaker reprogrammed by cardiology nurse tomorrow- Pacemaker front to be MRI compatible per discussion with Dr. Harris * 2. History of hyperlipidemia: On statin. 3. Primary essential hypertension: We will hold BP meds to allow for permissive hypertension for the next 24 hours. 3. Type 2 diabetes mellitus: * Poorly controlled. * Blood pressure was 300 on admission. * Insulin sliding scale. * Accu-Cheks AC at bedtime. Will check A1c. 5. History of sick sinus syndrome: Status post pacemaker. DVT prophylaxis: Lovenox Code Visit Inpatient E&M: 96022 Init Hosp L3
--- NOTE | 2019-08-20 16:38 | NURSING ---
[facility]
[2019-08-20] MEDS: Insulin Lispro 100 UNIT/ML INSULN.PEN SC ×2 (18:30→23:10)
[2019-08-20 18:41] LABS: Bedside Glucose 241 mg/dL (70-110)
[2019-08-20] MEDS: MELATONIN 3 MG TABLET PO (23:02)
[2019-08-20] MEDS: BACITRACIN 15 GM Tube 1 APPLIC TOPICAL (23:02)
[2019-08-20 23:30] LABS: Bedside Glucose 214 mg/dL (70-110)
[2019-08-21] VITALS (12 sets, daily range): BP systolic 153–199; BP diastolic 68–89; PULSE 80–97; RESP 16–18; TEMP 36.4–37.2; O2SAT 93–96; BMI 23.3
[2019-08-21 06:14] LABS: Absolute Neutrophil Count 5.6 X10^3/uL (2.0-7.7); Basophil# 0.01 X10^3/uL; Basophil% 0.1 % (0-1); Eosinophil# 0.08 X10^3/uL; Eosinophils% 1.1 % (0-5); Hemoglobin 9.3 g/dL (13.0-16.5); Lymphocyte % 17.4 % (19-41); Mean Corp Hgb Conc 33.2 g/dL (32-36); Mean Corpuscular Hgb 26.6 pg (27.0-32.0); Mean Corpuscular Volume 80.2 fL (80-94); Mean Platelet Vol. 9.7 fl (6.2-12.0); Monocyte# 0.46 X10^3/uL; Monocyte% 6.2 % (0-10); NRBC Flagged by Analyzer 0 % (0-5); Neutrophil # 5.57 X10^3/uL (2.7-7.7); Neutrophil % 74.7 % (47-70); Platelet Count 213 K/mm3 (150-450); RBC Distribution Width CV 13.1 % (11.6-14.6); RBC Distribution Width SD 37.2 fl (35.1-43.9); Red Blood Count 3.49 M/mm3 (4.6-6.2); White Blood Count 7.5 K/mm3 (4.4-11.0)
[2019-08-21] MEDS: BACITRACIN 15 GM Tube 1 APPLIC TOPICAL ×2 (06:33→14:55)
[2019-08-21] MEDS: Insulin Lispro 100 UNIT/ML INSULN.PEN SC ×3 (06:37→16:32)
[2019-08-21 06:46] LABS: Anion Gap 6 (5-15); BUN 21 mg/dL (7-18); BUN/Creat Ratio 19.3 RATIO (10-20); Calcium,Total 8.1 mg/dL (8.5-10.1); Chloride 111 mmol/L (98-107); Cholesterol 183 mg/dL (200); Creatinine, Serum 1.09 mg/dL (0.70-1.30); EST Glomerular Filtration Rate 73 mL/min (>60); Est Glom Filt Rate - Afr Amer 88 mL/min (>60); Estimated Creatinine Clearance 73.48 ml/min; Glucose 235 mg/dL (74-106); High Density Lipoprotein 28 mg/dL; Potassium 3.3 mmol/L (3.5-5.1); Sodium Level 143 mmol/L (136-145); Triglycerides 269 mg/dL; Very Low Density Lipoprotein 54 mg/dL (5-40)
[2019-08-21 07:11] LABS: Bedside Glucose 205 mg/dL (70-110)
[2019-08-21] MEDS: Multivitamins,Therapeutic Tablet 1 TABLET PO (08:58)
[2019-08-21] MEDS: Enoxaparin 40 MG/0.4 ML Syringe SC (08:58)
[2019-08-21] MEDS: Atorvastatin Calcium 80 MG Tablet PO (08:58)
[2019-08-21] MEDS: Aspirin 81 MG TAB.CHEW PO (08:58)
[2019-08-21] MEDS: Clopidogrel Bisulfate 75 MG Tablet PO (08:58)
[2019-08-21 11:35] LABS: Bedside Glucose 351 mg/dL (70-110)
--- NOTE | 2019-08-21 13:51 | NURSING ---
THIS RN MONITORED PT DURING MRI AFTER SWITCHED INTO MRI SAFE MODE. HR IN THE 80'S. PLACED ON 4L OXYGEN DURING SCAN BECAUSE SPO2 WAS IN 80'S WHILE LYING SUPINE. PT TOLERATED WELL.
--- NOTE | 2019-08-21 14:58 | CASEMGMT ---
SW completed a PHQ 9 with patient as he may have had a TIA. He scored a 0. Stephany KELLEY
--- NOTE | 2019-08-21 15:03 | CASEMGMT ---
RN CM Note: [facility] look up for [facility] as transfer is recommended. [facility], [facility], [facility], [facility], , [facility]
--- NOTE | 2019-08-21 15:53 | DS.PCM_ITS ---
<Tim Marquez - Last Filed: 08/21/19 15:53> Discharge Date and Diagnosis Date of Admission: 08/20/19 Date of Discharge: 08/21/19 - Primary Discharge Diagnosis TIA marked by slurred speech Severe basilar artery stenosis Hx of right thalamic lacunar infarct 02/2019 Hx SSS, pacemaker in place DMt2 HTN HLD - Secondary Discharge Diagnosis Chronic Problems (Last Updated 04/04/19 @ 20:27 by Renee Diaz) Diabetes mellitus (Chronic) Paroxysmal supraventricular tachycardia (Chronic 06/2017) Complete heart block (Chronic 02/2019) History of permanent cardiac pacemaker placement (Chronic 03/05/19) Essential (primary) hypertension (Chronic) Sick sinus syndrome (Chronic) CVA (cerebral vascular accident) (Chronic 02/2019) lacunar infarct in the right thalamus measures 5mm Sinus pause (Chronic) HLD (hyperlipidemia) (Chronic) Hospital Course and Treatment Imaging Results: CT/Brain/Head without Contrast IMPRESSION: Chronic involutional changes of the brain. N.B. : The above information has been verbally conveyed by Joseph Denton to Eugenia Espana on 08/20/2019 15:26:00 (ET). MRI/Brain without Contrast IMPRESSION: Involutional changes of the brain, as described above. No acute infarct. MRI/MRA Head ONLY without Contrast IMPRESSION: Severe (80%) stenosis of the mid basilar artery. RAD/Chest 1 View IMPRESSION: Normal x-ray examination of the chest. MRI/MRA Neck WITH and W/O Contrast IMPRESSION: 1. No right carotid stenosis. 2. Mild (40%) left carotid stenosis. 3. Patent vertebral arteries bilaterally. Operations: None Procedures: None Summary of Care Provided: Hospital Course: The patient is a 63 year old M with a pmhx of prior cva left thalamic infarct 02/2019, sick sinus syndrome / pSVT, s/p pacemaker, HTN, HLD, and T2DM, who presented to the ER with c/o slurred speech. The patient was found to have slurred speech by his girlfriend the night prior to presentation around midnight. He however went to sleep and still had the slurred speech in the AM, so he came to the ER. In the ER he had an NIH of 2 and tele stroke was activated, a CT brain was performed which was negative, and he was felt to be outside the tPA window. The patients symptoms completely resolved. He was admitted to the PCU on telemetry for TIA. He was already on aspirin, plavix, and a statin. He was kept on tele and maintained NSR during his stay. He had an MRI of the brain which was negative for acute stroke (His pacer is compatible). MRA of the head and neck did reveal severe stenosis 80% of the mid basilar artery. His symptoms remained resolved and his NIH remains zero. Transfer to tertiary care was recommended for neurosurgeon evaluation. He was agreeable, and he was accepted under the care of Dr. Kaba at [facility]. He was discharged in stable condition. Follow up as directed by receiving facility. This patient was seen by Tim Marquez PA-C under the supervision of Dr. Whitmore. [] - Physical Exam Vitals/I&O's: Vital Signs Temp Pulse Resp BP Pulse Ox 97.9 F 93 18 170/77 H 95 08/21/19 14:35 08/21/19 14:35 08/21/19 14:35 08/21/19 14:35 08/21/19 14:35 Oxygen Flow Rate (L/min) 2 Oxygen Delivery Method Room Air Weight: 163 lb 2.273 oz Body Mass Index (BMI) 23.3 Finger Stick Blood Glucose 339 Intake and Output for Last 24 Hours 08/19/19 08/20/19 08/21/19 23:59 23:59 23:59 Intake Total 150 / 150 555 / 555 Balance 150 / 150 555 / 555 General: Alert, Oriented x3, Cooperative HEENT: Atraumatic, PERRLA, EOMI, Normocephalic Neck: Supple, No JVD, Negative Carotid Bruits Lungs: Clear to auscultation, Normal air movement Cardiovascular: Regular rate, No murmurs Abdomen: Bowel Sounds Present, Soft, Non Tender Extremities: No edema, Capillary Refill Less than 3 Seconds Skin: No rashes, No breakdown Musculoskeletal: No Tenderness to Palpation of Joints or Extremities Neurological: Cranial nerves II-XII grossly intact, - - no slurred speech, no facial droop, negative pronator drift, upper lower extremity strength equal and intact bilaterally. Psych/Mental Status: Normal Affect, Appropriate, Alert and oriented to time, place, person, mood and affect Laboratory Results 08/20/19 15:25: PT 12.6, INR 1.0, APTT 24.7 08/20/19 15:25: Sodium 142, Potassium 3.7, Chloride 110 H, Carbon Dioxide 26.0, Anion Gap 6, BUN 21 H, Creatinine 1.12, Estim Creat Clear Calc 71.52, Est GFR (MDRD) Af Amer 86, Est GFR (MDRD) Non-Af 71, BUN/Creatinine Ratio 18.8, Glucose 294 H, Calcium 8.8, Troponin I < 0.015 08/20/19 15:25: Ethyl Alcohol 4.0 08/20/19 18:29: POC Glucose 241 H 08/20/19 23:07: POC Glucose 214 H 08/21/19 05:45: WBC 7.5, RBC 3.49 L, Hgb 9.3 L, Hct 28.0 L, MCV 80.2, MCH 26.6 L , MCHC 33.2, RDW Std Deviation 37.2, RDW Coeff of Harry 13.1, Plt Count 213, MPV 9.7, Immature Gran % (Auto) 0.500, Neut % (Auto) 74.7 H, Lymph % (Auto) 17.4 L, [place] % (Auto) 6.2, Eos % (Auto) 1.1, Baso % (Auto) 0.1, Absolute Neuts (auto) 5.6, Absolute Lymphs (auto) 1.30, Nucleated RBC % 0 08/21/19 05:45: Sodium 143, Potassium 3.3 L, Chloride 111 H, Carbon Dioxide 26.0, Anion Gap 6, BUN 21 H, Creatinine 1.09, Estim Creat Clear Calc 73.48, Est GFR (MDRD) Af Amer 88, Est GFR (MDRD) Non-Af 73, BUN/Creatinine Ratio 19.3, Glucose 235 H, Calcium 8.1 L, Triglycerides 269 H, Cholesterol 183, LDL Cholesterol 101, VLDL Cholesterol 54 H, HDL Cholesterol 28 L 08/21/19 06:35: POC Glucose 205 H 08/21/19 11:19: POC Glucose 351 H Current Medications Aspirin (Aspirin, Baby) 81 mg PO DAILY@0800 [facility]I Last Admin: 08/21/19 08:58 Dose: 81 mg Documented by: Atorvastatin Calcium (Lipitor) 80 mg PO DAILY [facility] Last Admin: 08/21/19 08:58 Dose: 80 mg Documented by: Bacitracin (Bacitracin Ointment) 1 applic TOPICAL TID [facility]; Protocol Last Admin: 08/21/19 14:55 Dose: 1 applic Documented by: Clopidogrel Bisulfate (Plavix) 75 mg PO DAILY [facility] Last Admin: 08/21/19 08:58 Dose: 75 mg Documented by: Enoxaparin Sodium (Lovenox) 40 mg SC DAILY [facility] Last Admin: 08/21/19 08:58 Dose: 40 mg Documented by: Glucagon () 1 mg IM .X1 PRN PRN Reason: Hypoglycemia Dextrose (Dextrose 10%-Water) 250 mls @ 999 mls/hr IV .Q16M PRN; Protocol PRN Reason: HYPOGLYCEMIA Insulin Human Lispro (Humalog Kwikpen (Bkc)) 0 unit SC Q6 [facility]; Protocol Last Admin: 08/21/19 11:24 Dose: 8 u Documented by: Melatonin (Melatonin) 3 mg PO QHS [facility] Last Admin: 08/20/19 23:02 Dose: 3 mg Documented by: Multivitamins (Multivitamin) 1 tablet PO DAILY@0800 [facility] Last Admin: 08/21/19 08:58 Dose: 1 tablet Documented by: Ondansetron HCl (Zofran) 4 mg IV Q8H PRN PRN PRN Reason: NAUSEA/VOMITING Sodium Chloride () 10 - 40 ml IV UD PRN PRN Reason: SALINE FLUSH Discharge Diet: - - as directed by receiving facility Discharge Activity: - - as directed by receiving facility Home Medications: Medications to take at Discharge metFORMIN (XR) [Glucophage Xr] 1,000 mg PO BID 10/06/15 Aspirin [Aspirin, Baby] 81 mg PO DAILY 03/04/19 Atorvastatin Calcium [Lipitor] 80 mg PO DAILY 03/04/19 Multivitamin [Daily Yousuf] 1 tab PO DAILY 03/04/19 Amlodipine [Norvasc] 5 mg PO DAILY 04/25/19 Clopidogrel Bisulfate [Clopidogrel] 75 mg PO DAILY 04/25/19 Metoprolol Succinate [Toprol Xl] 100 mg PO DAILY 04/25/19 Insulin Lispro [Humalog KwikPen] 5 unit SQ TID #1 insuln.pen 04/26/19 Melatonin 3 mg PO QHS 06/11/19 Bacitracin Ointment 1 applic TOPICAL TID #1 tube 06/27/19 Insulin Glargine [Lantus SoloStar Pen] 8 units SUBCUT QHS 08/20/19 Lisinopril [Zestril] 40 mg PO DAILY 08/20/19 Primary Care Physician: Vera Lucas MD [Primary Care Provider] - Disposition: Acute care Hospital Medical Necessity - Tobacco Use Smoking Status: Former smoker Tobacco Use: Cigarettes Meaningful Use Info Meaningful Use Diagnoses (Choose all that apply): None applicable <HaimRoberto - Last Filed: 08/21/19 16:36> Discharge Date and Diagnosis - Secondary Discharge Diagnosis Chronic Problems (Last Updated 04/04/19 @ 20:27 by Renee Diaz) Diabetes mellitus (Chronic) Paroxysmal supraventricular tachycardia (Chronic 06/2017) Complete heart block (Chronic 02/2019) History of permanent cardiac pacemaker placement (Chronic 03/05/19) Essential (primary) hypertension (Chronic) Sick sinus syndrome (Chronic) CVA (cerebral vascular accident) (Chronic 02/2019) lacunar infarct in the right thalamus measures 5mm Sinus pause (Chronic) HLD (hyperlipidemia) (Chronic) Hospital Course and Treatment Imaging Results: 08/21/19 17:41 Brain without Contrast [MRI] Stat MRA Head ONLY without Contrast [MRI] Stat MRA Neck WITH and W/O Contrast [MRI] Stat Summary of Care Provided: This patient was seen in conjunction with Tim MILNER. I have independently interviewed and examined the patient and reviewed pertinent history, examination findings, laboratory and plan of management. I have reviewed the note and agree with the documented findings with the few additional points. In brief, patient is 63-year-old intermittent with history of left thalamic infarct in February 2019, sick sinus syndrome/PSVT status post pacemaker and other comorbidities as mentioned above came with dysarthria/mild language deficit. Initial NIH stroke score was 2. Patient was admitted to PCU. Patient has a pacemaker which was reprogrammed so that he can go MRI. Patient had MRI brain and MRA of head and neck. MRI brain does not show acute infarct. 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 For this patient was transferred to tertiary care center, [facility] under care of Dr. Kaba for neurosurgical evaluation and possible intervention on basilar artery. Transfer paperwork was signed. She has diabetes mellitus, glucose 235 in BMP. Fasting profile shows triglyceride 269, LDL 101, HDL 28. Patient on aspirin, Plavix and atorvastatin 80 mg daily. I have discussed my assessment with Tim MILNER and orders have been reviewed. [] Clinical Impression(s) from Imaging Studies Brain CT 08/20/19 15:11 IMPRESSION: Chronic involutional changes of the brain. N.B. : The above information has been verbally conveyed by Joseph Denton to Eugenia Espana on 08/20/2019 15:26:00 (ET). Electronically Signed: Joseph Denton, at 15:27 EST , Service support , ADDENDUM: 08/20/19 1534 IMPRESSION: Chronic involutional changes of the brain. N.B. : The above information has been verbally conveyed by Joseph Denton to Eugenia Espana on 08/20/2019 15:26:00 (ET). Electronically Signed: Joseph Denton, at 15:27 EST , Service support , Chest X-Ray 08/20/19 15:54 IMPRESSION: Normal x-ray examination of the chest. Electronically Signed: Michelle Rivera MD at 16:24 EST Tel , Service support , Brain MRI 08/21/19 17:41 IMPRESSION: Involutional changes of the brain, as described above. No acute infarct. Head MRA 08/21/19 17:41 IMPRESSION: Severe (80%) stenosis of the mid basilar artery. Neck MRA 08/21/19 17:41 IMPRESSION: 1. No right carotid stenosis. 2. Mild (40%) left carotid stenosis. 3. Patent vertebral arteries bilaterally. Subjective: Patient has history of TIA about 3 years ago when he had numbness on the left side that is resolved. He is admitted with language deficit/dysarthria this time. Objective: General: Alert, Oriented x3, Cooperative HEENT: Atraumatic, PERRLA, EOMI, Normocephalic Oral: No Gingival or Mucosal Lesions/ Ulcerations Neck: Supple, No JVD, Negative Carotid Bruits Lungs: Air entry equal in bilateral lung bases. No crepitation/rhonchi Cardiovascular: Regular rate, Regular Rhythm, Normal S1, Normal S2, No murmurs Abdomen: Bowel Sounds Present, Soft, Non Tender, Non-Distended Extremities: No edema, Capillary Refill Less than 3 Seconds Skin: No rashes, No breakdown Musculoskeletal: No Tenderness to Palpation of Joints or Extremities Neurological: Cranial nerves II-XII grossly intact, Deep Tendon Reflexes 2+/4 and Symmetrical, NIHSS 1 because of dysarthria. Psych/Mental Status: Normal Affect, Appropriate - Physical Exam Vitals/I&O's: Vital Signs Temp Pulse Resp BP Pulse Ox 97.9 F 97 18 170/77 H 95 08/21/19 14:35 08/21/19 15:00 08/21/19 14:35 08/21/19 14:35 08/21/19 14:35 Oxygen Flow Rate (L/min) 2 Oxygen Delivery Method Room Air Weight: 163 lb 2.273 oz Body Mass Index (BMI) 23.3 Finger Stick Blood Glucose 339 Intake and Output for Last 24 Hours 08/19/19 08/20/19 08/21/19 23:59 23:59 23:59 Intake Total 150 / 150 555 / 555 Balance 150 / 150 555 / 555 Neurological: - Laboratory Results 08/20/19 15:25: Ethyl Alcohol 4.0 08/20/19 18:29: POC Glucose 241 H 08/20/19 23:07: POC Glucose 214 H 08/21/19 05:45: WBC 7.5, RBC 3.49 L, Hgb 9.3 L, Hct 28.0 L, MCV 80.2, MCH 26.6 L , MCHC 33.2, RDW Std Deviation 37.2, RDW Coeff of Harry 13.1, Plt Count 213, MPV 9.7, Immature Gran % (Auto) 0.500, Neut % (Auto) 74.7 H, Lymph % (Auto) 17.4 L, [place] % (Auto) 6.2, Eos % (Auto) 1.1, Baso % (Auto) 0.1, Absolute Neuts (auto) 5.6, Absolute Lymphs (auto) 1.30, Nucleated RBC % 0 08/21/19 05:45: Sodium 143, Potassium 3.3 L, Chloride 111 H, Carbon Dioxide 26.0, Anion Gap 6, BUN 21 H, Creatinine 1.09, Estim Creat Clear Calc 73.48, Est GFR (MDRD) Af Amer 88, Est GFR (MDRD) Non-Af 73, BUN/Creatinine Ratio 19.3, Glucose 235 H, Calcium 8.1 L, Triglycerides 269 H, Cholesterol 183, LDL Cholesterol 101, VLDL Cholesterol 54 H, HDL Cholesterol 28 L 08/21/19 06:35: POC Glucose 205 H 08/21/19 11:19: POC Glucose 351 H Current Medications Aspirin (Aspirin, Baby) 81 mg PO DAILY@0800 [facility] Last Admin: 08/21/19 08:58 Dose: 81 mg Documented by: Atorvastatin Calcium (Lipitor) 80 mg PO DAILY [facility] Last Admin: 08/21/19 08:58 Dose: 80 mg Documented by: Bacitracin (Bacitracin Ointment) 1 applic TOPICAL TID [facility]; Protocol Last Admin: 08/21/19 14:55 Dose: 1 applic Documented by: Clopidogrel Bisulfate (Plavix) 75 mg PO DAILY [facility] Last Admin: 08/21/19 08:58 Dose: 75 mg Documented by: Enoxaparin Sodium (Lovenox) 40 mg SC DAILY [facility] Last Admin: 08/21/19 08:58 Dose: 40 mg Documented by: Glucagon () 1 mg IM .X1 PRN PRN Reason: Hypoglycemia Dextrose (Dextrose 10%-Water) 250 mls @ 999 mls/hr IV .Q16M PRN; Protocol PRN Reason: HYPOGLYCEMIA Insulin Human Lispro (Humalog Kwikpen (Bkc)) 0 unit SC Q6 [facility]; Protocol Last Admin: 08/21/19 11:24 Dose: 8 u Documented by: Melatonin (Melatonin) 3 mg PO QHS [facility] Last Admin: 08/20/19 23:02 Dose: 3 mg Documented by: Multivitamins (Multivitamin) 1 tablet PO DAILY@0800 [facility] Last Admin: 08/21/19 08:58 Dose: 1 tablet Documented by: Ondansetron HCl (Zofran) 4 mg IV Q8H PRN PRN PRN Reason: NAUSEA/VOMITING Sodium Chloride () 10 - 40 ml IV UD PRN PRN Reason: SALINE FLUSH Code Visit Inpatient E&M: 82629 Disch Hosp
--- NOTE | 2019-08-21 16:35 | NURSING ---
Report called to [facility] spoke to Sepideh GOODEN at [phone].
[2019-08-21 16:40] LABS: Bedside Glucose 383 mg/dL (70-110)
[2019-08-21] MEDS: 0.9% Saline Lock 10 ML Syringe IV ×2 (16:46→17:50)
--- NOTE | 2019-08-21 17:22 | CHAPLAIN ---
Type of Pastoral Visit _x__ Initial Visit ___ Follow-up Visit ___ On-call Visit ___ General Patient Visit ___ Spiritual Assessment ___ Family Conference ___ Bereavement ___ Rapid Response ___ Code Blue ___ Other (describe below) Pastoral Care Referral From _x__ Patient ___ Family ___ Nurse ___ Physician ___ Treating Inspector ___ Filter Changing Technician ___ Other (describe below) Sacrament/Intervention _x__ Active listening ___ Anointing ___ Mandaeism ___ Bereavement ___ Communion ___ Laverne exploration ___ ___ Life review _x__ Prayer ___ Reconciliation ___ Sacrament of Sick _x__ Supportive presence ___ Wedding ___ Other (describe below) Pastoral Comments
--- NOTE | 2019-08-21 17:41 | MRI_ITS ---
STUDY: MRA OF THE HEAD WITHOUT CONTRAST REASON FOR EXAM: Male, 63 years old. SLURRED SPEECH, numbness , tingling RLE started yesterday TECHNIQUE: 3-D odas-gq-eclzjg (TOF) imaging was performed with MIPs. The study was performed unenhanced. COMPARISON: None. FINDINGS: Normal bilateral petrous carotid arteries. Normal right cavernous carotid artery with a normal supraclinoid bifurcation. Normal left cavernous carotid artery with a normal supraclinoid bifurcation. Normal right A1 segments of the anterior cerebral artery. Normal left A1 segments of the anterior cerebral artery. Normal intact anterior communicating artery (ACOM). Normal bilateral A2 segments of the anterior cerebral arteries. Normal right M1 and M2 segments of the middle cerebral arteries, with a normal M1 bifurcation. Normal left M1 and M2 segments of the middle cerebral arteries, with a normal M1 bifurcation. There is a persistent origin of the right posterior cerebral artery with absence of the P1 segment of the right posterior cerebral artery. Normal left posterior communicating artery (PCOM). Normal bilateral vertebral arteries. Severe (80%) stenosis of the mid basilar artery. Hhe visualized bilateral superior cerebellar (SCA) arteries are normal. Normal bilateral P1, P2 and visualized P3 segments of the posterior cerebral arteries. There is no demonstrated aneurysm of the [place]. There is no major vessel occlusion or hemodynamically significant stenosis. There is no demonstrated abnormality of the visualized brain. MRI/MRA Head ONLY without Contrast IMPRESSION: Severe (80%) stenosis of the mid basilar artery. Electronically Signed: Danny Mcdaniel MD at 14:21 EST Tel , Service support ,
--- NOTE | 2019-08-21 17:41 | MRI_ITS ---
STUDY: MRI BRAIN WITHOUT CONTRAST REASON FOR EXAM: Male, 63 years old. SLURRED SPEECH, N/T RLE TECHNIQUE: Standardized multiplanar fat and water weighted pulse sequences were obtained. COMPARISON: 02/19/2019, CT 08/20/2019 FINDINGS: There is moderate cerebral atrophy with widening of the extra-axial spaces and ventricular dilatation. There are a limited number of small white matter hyperintensities, distributed throughout the deep white matter tracts of the cerebral hemispheres, consistent with mild chronic white matter ischemic changes. There is no evidence for recent intracranial ischemia or other cause of cytotoxic edema on diffusion weighted imaging (DWI). Normal T2* images of the brain without demonstrated susceptibility artifact. There is no demonstrated hemosiderin stain. Normal bilateral basal ganglia. Normal thalami. There is no extra-axial fluid accumulation. Normal flow voids within the major intracranial circulation suggesting patency by spin echo criteria. There is enlargement of the sella turcica with increased CSF within the sella and flattening of the pituitary gland consistent with an empty sellar syndrome. Normal infundibular stalk, hypothalamus, and optic chiasm. Normal tectal plate and pineal gland. Normal midbrain, [place] and medulla. Normal cerebellum. Normal basal cisterns. Normal bilateral temporal bones. Normal bilateral internal auditory canals. There are bilateral ocular lens implants with otherwise normal intraorbital contents. Normal visualized paranasal sinuses. Normal calvarium and skull base. Normal visualized soft tissue structures. Normal visualized upper cervical spine. MRI/Brain without Contrast IMPRESSION: Involutional changes of the brain, as described above. No acute infarct. Electronically Signed: Danny Mcdaniel MD at 14:27 EST Tel , Service support ,
--- NOTE | 2019-08-21 17:41 | MRI_ITS ---
STUDY: MRA NECK WITH AND WITHOUT CONTRAST REASON FOR EXAM: Male, 63 years old. SLURRED SPEECH TECHNIQUE: 3-D tnxg-vh-sjhvfh (TOF) imaging was performed in an 1.5 T MRI scanner. IV Dotarem 15ml was administered for the contrast enhanced images. COMPARISON: None. FINDINGS: RIGHT CAROTID ARTERIES: Normal right common carotid artery (CCA). Normal right common carotid bulb. Normal origin of the right internal carotid (ICA) artery without a hemodynamically significant stenosis. Normal visualized cervical portion of the right internal carotid artery. Normal origin of the right external carotid artery (ECA). LEFT CAROTID ARTERIES: Normal left common carotid artery (CCA). There is mild atherosclerotic plaque formation with minimal narrowing of the left carotid bulb. There is mild atherosclerotic plaque formation of the origin of the left internal carotid artery with less than 50% cross sectional diameter stenosis. Normal visualized cervical portion of the left internal carotid artery. Normal origin of the left external carotid artery (ECA). VERTEBRAL ARTERIES: Normal antegrade flow within the bilateral vertebral artery without a hemodynamically significant stenosis. MRI/MRA Neck WITH and W/O Contrast IMPRESSION: 1. No right carotid stenosis. 2. Mild (40%) left carotid stenosis. 3. Patent vertebral arteries bilaterally. Electronically Signed: Danny Mcdaniel MD at 14:30 EST Tel , Service support ,
[2019-08-21] MEDS: hydrALAZINE 20 MG/ML Vial 10 MG IV (17:45)
--- NOTE | 2019-08-21 18:01 | NURSING ---
Reviewed and agreed on all charting with Marisa Jarrett RN
== END 2019-08-21 15:50 | disposition short-term general hospital (02) ==
LOC: ED 15:48 → PCU 16:43
PROVIDERS: Admitting Provider Student in an Organized Health Care Education/Training Program; Emergency Provider Emergency Medicine; Family Provider Internal Medicine; PCP Internal Medicine; Visit Provider Internal Medicine
DX: G45.9 Transient cerebral ischemic attack, unspecified (principal); R47.1 Dysarthria and anarthria; R53.1 Weakness; R29.701 NIHSS score 1; I10 Essential (primary) hypertension; E78.5 Hyperlipidemia, unspecified; I47.1 Supraventricular tachycardia; E11.65 Type 2 diabetes mellitus with hyperglycemia; S80.212D Abrasion, left knee, subsequent encounter; W19.XXXD Unspecified fall, subsequent encounter; Z79.899 Other long term (current) drug therapy; Z79.82 Long term (current) use of aspirin; Z79.02 Long term (current) use of antithrombotics/antiplatelets; Z79.4 Long term (current) use of insulin; Z95.0 Presence of cardiac pacemaker; Z87.891 Personal history of nicotine dependence
CPT/HCPCS: 36415; 70450; 70544; 70549; 70551; 71045; 80048; 80061; 80320; 82962; 84484; 85025; 85610; 85730; 92523; 92610; 93005; 94762; 96372; 96374; 97802; 99218; 99285; A9575; J7030; A4216; G0378; G0480

== ENCOUNTER 2019-08-26 11:55 | Emergency (ER) | payer MEDICAID, SELFPAY ==
[2019-08-21 16:55] VITALS: BMI 23.3
[2019-08-26 11:56] VITALS: BP 195/106; PULSE 93; RESP 16; TEMP 36.8; O2SAT 99; BMI 25.1
[2019-08-26 13:02] VITALS: BP 199/81; PULSE 82; RESP 20; O2SAT 99
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
[2019-08-26 15:50] VITALS: BP 210/95; PULSE 81; O2SAT 96
--- NOTE | 2019-08-26 15:51 | ED.RN ---
APOLOGIZED TO PT FOR DELAY IN CARE, EXPLAINED THAT THERE IS MULTIPLE CRITICAL PTS REQUIRING MULTIPLE STAFF MEMBERS. PT VERBALIZED UNDERSTANDING.
[2019-08-26 16:17] VITALS: BP 209/86; PULSE 84; RESP 16; O2SAT 97
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
[2019-08-26 17:01] VITALS: BP 211/83; PULSE 82; RESP 16; O2SAT 97
== END 2019-08-26 17:04 | disposition home or self-care (01) ==
PROVIDERS: Emergency Provider Emergency Medicine; PCP Internal Medicine
DX: S09.90XA Unspecified injury of head, initial encounter (principal); V59.60XA Unspecified occupant of pick-up truck or van injured in collision with unspecified motor vehicles in traffic accident, initial encounter; Y93.9 Activity, unspecified; Y92.9 Unspecified place or not applicable; Y99.9 Unspecified external cause status; I44.2 Atrioventricular block, complete; I49.5 Sick sinus syndrome; I47.1 Supraventricular tachycardia; E11.9 Type 2 diabetes mellitus without complications; I10 Essential (primary) hypertension; E78.5 Hyperlipidemia, unspecified; Z79.02 Long term (current) use of antithrombotics/antiplatelets; Z79.01 Long term (current) use of anticoagulants; Z79.82 Long term (current) use of aspirin; Z79.4 Long term (current) use of insulin; Z79.899 Other long term (current) drug therapy; Z86.73 Personal history of transient ischemic attack (TIA), and cerebral infarction without residual deficits; Z87.891 Personal history of nicotine dependence; Z95.0 Presence of cardiac pacemaker
CPT/HCPCS: 70450; 99282

== ENCOUNTER 2019-09-23 14:14 | Emergency (ER) | payer MEDICAID, SELFPAY ==
[2019-09-23 14:15] VITALS: BP 211/85; PULSE 86; RESP 25; TEMP 36.6; O2SAT 96; BMI 25.9
--- NOTE | 2019-09-23 14:38 | EKG12_ITS ---
Test Reason : DYSRHYTHMIA Blood Pressure : / mmHG Vent. Rate : 085 BPM Atrial Rate : 085 BPM P-R Int : 186 ms QRS Dur : 090 ms QT Int : 400 ms P-R-T Axes : 041 003 081 degrees QTc Int : 476 ms Normal sinus rhythm Voltage criteria for left ventricular hypertrophy Nonspecific T wave abnormality Prolonged QT Abnormal ECG Confirmed by ANNALISA VILLA, NINI ([id number]), loan expeditor ROCKY LO ([id number]) on 09/25/2019 9:03:31 AM Referred By: YADIRA Confirmed By:NINI FANG MD
--- NOTE | 2019-09-23 14:39 | ED.VIS.CHEST ---
History of Present Illness Chief Complaint: Chest Pain Informant: Patient, EMS Onset: Today - gradual onset after got up this AM, unk detailed timing Activity at onset: Unknown Timing: Continuous Quality: Aching Location: Left Chest - without radiation Current Severity: Moderate Maximum Severity: Moderate Worsened By: Movement of Arm - LUE, Breathing, Coughing Relieved By: Remaining Still Associated Symptoms: Dyspnea, Cough. Negative for: Nausea, Vomiting, Diaphoresis, Fever, Lightheadedness, Acid Reflux, Palpitations Narrative: Patient is very poor informant. He states gradually this morning he started not feeling well and then later he noticed that his left chest was hurting. He has had a cough, nonproductive. He states the pain gets worse when he breathes or moves his left arm. There is no radiation. Denies any abdominal symptoms. No arm or back pain. Denies any known fevers. He has very poor knowledge of his past medical history. States he takes aspirin but no other blood thinning medications. - Past Medical History (1) CVA (cerebral vascular accident) Status: Chronic Comment: lacunar infarct in the right thalamus measures 5mm (2) Complete heart block Status: Chronic (3) Diabetes mellitus Status: Chronic (4) Essential (primary) hypertension Status: Chronic (5) HLD (hyperlipidemia) Status: Chronic (6) History of permanent cardiac pacemaker placement Status: Chronic (7) Paroxysmal supraventricular tachycardia Status: Chronic (8) Sick sinus syndrome Status: Chronic Past Medical History - Allergies and Home Meds Allergies/Adverse Reactions: Allergies No Known Allergies Allergy (Verified 09/23/19 14:22) Primary Care Physician: Vera Lucas MD [Primary Care Provider] - Surgical History: pacemaker implantation, - - Carpal tunnel surgery Lives: Alone Smoking Status: Former smoker Drugs: None - Family History Paternal Family History: Reports: Heart Disease Maternal Family History: Reports: No pertinent history Review of Systems General: Reports: Malaise. Denies: Chills, Fever, Sweats Eyes: Denies: Visual changes - bilaterally, Diplopia ENT: Denies: Bilateral ear pain, Rhinorrhea, Sore throat Cardiovascular: Reports: Chest pain. Denies: Palpitations Respiratory: Reports: Dyspnea, Cough. Denies: Sputum, Orthopnea Gastrointestinal: Denies: Abdominal pain, Nausea, Vomiting, Diarrhea, Melena, Hematochezia Genitourinary: Denies: Dysuria, Hematuria, Frequency Musculoskeletal: Reports: Swelling - Both ankles for several weeks. Denies: Back pain, Extremity Pain Skin: Denies: Rash, Wounds Neurological: Denies: Headache, Weakness, Numbness Physical Exam Vital Signs/Narrative: Vital Signs Temp Pulse Resp BP Pulse Ox 09/23/19 14:15 97.9 F 86 25 H 211/85 H 96 Inital Vital Signs reviewed: Yes General: Well nourished, Well developed, No Acute Distress Head: Normocephalic, Atraumatic Eyes: Perrl, EOMI ENT: Moist mucous membranes, No rhinorrhea Neck: Supple, Nontender Cardiovascular: Regular rate, Regular rhythm, No murmurs Respiratory: No distress, CTA bilaterally, Chest tenderness - Left lateral anterior chest, near the midclavicular line/anterior axillary line. Point tender without crepitance or subcutaneous emphysema. Reproduces patient's chest pain. Abdomen: Soft, Nontender, Nondistended, Normal bowel sounds Back: Nontender, Normal Inspection Extremities: Nontender, Edema - 1+ bilateral lower extremity, symmetric, mid winn. Negative for: Calf Tenderness Skin: Normal color, No rash, No Trauma Neurological: Alert, Oriented x3, Cranial nerves II-XII grossly intact, Normal Strength, Normal Sensation Psychological: Normal Mood, - - Anxious Diagnostic/Tx/Re-eval Impressions Chest X-Ray 09/23/19 14:57 IMPRESSION: Findings suggestive of mild degree of CHF. Electronically Signed: Joseph Bertin, at 15:26 EST , Service support , 09/23/19 14:57 Chest PA and Lateral [RAD] Stat Laboratory Results 09/23/19 09/23/19 14:20 14:20 WBC 5.3 RBC 4.09 L Hgb 11.0 L Hct 33.3 L MCV 81.4 MCH 26.9 L MCHC 33.0 RDW Std Deviation 39.5 RDW Coeff of Harry 13.3 Plt Count 261 MPV 9.7 Immature Gran % (Auto) 1.100 H Neut % (Auto) 66.3 Lymph % (Auto) 23.6 [place] % (Auto) 6.7 Eos % (Auto) 1.7 Baso % (Auto) 0.6 Absolute Neuts (auto) 3.5 Absolute Lymphs (auto) 1.26 Nucleated RBC % 0 Sodium 141 Potassium 3.9 Chloride 109 H Carbon Dioxide 27.0 Anion Gap 5 BUN 27 H Creatinine 1.47 H Estim Creat Clear Calc 52.77 Est GFR (MDRD) Af Amer 63 Est GFR (MDRD) Non-Af 52 L BUN/Creatinine Ratio 18.4 Glucose 399 H Calcium 8.6 Troponin I 0.019 - Rhythm Strip Rhythm Strip: Sinus Rhythm Rate: 85 Ectopy: None - EKG Initial EKG Interpretation: Sinus Rhythm, No Acute Injury Pattern, - - Prolonged QTC Prior: Unchanged Treatment: Toradol IV Repeat Eval: Pain Free - Medical Decision Making Patient feels much better after a small dose of Toradol. This was given because palpating this particular area of his chest where he was having pain reproduced all of his symptoms and was extremely tender. Chest x-ray suggest possible early CHF. He had an echocardiogram less than 1 year ago that showed a normal ejection fraction and some mild diastolic dysfunction, and no major valve issues. He does not have any JVD or sound wet clinically. He denies having any orthopnea today. His blood sugar was very high around 399 so this is treated with insulin, he is on insulin at home. This could be contributing to his malaise. We ambulated him the length of the hallway down the emergency department and back, he had no dyspnea and no hypoxemia, his pulse ox remained at or above 95%. He feels much better and request to be discharged, I am comfortable with that overall plan given his work-up and improvement. His blood pressure was very high on initial evaluation, this did come down some to 184/86 after symptomatic treatment. He is advised to follow-up for reevaluation and blood pressure recheck especially if symptoms persist, and we discussed reasons to return. He is comfortable with that plan. ED Disposition - Plan for ED Patient: Disposition: Home or Assisted Living Diagnosis: Chest wall pain, Hyperglycemia due to type 2 diabetes mellitus, Accelerated hypertension Instructions: Chest Wall Strain, ED Diabetic Hyperglycemia Referrals: Vera Lucas MD [Primary Care Provider] - 2 Days
[2019-09-23 14:40] VITALS: O2SAT 96
[2019-09-23 14:52] LABS: Absolute Lymphocyte Count 1.26 X10^3/uL (0.83-4.51); Absolute Neutrophil Count 3.5 X10^3/uL (2.0-7.7); Basophil# 0.03 X10^3/uL; Basophil% 0.6 % (0-1); Eosinophil# 0.09 X10^3/uL; Eosinophils% 1.7 % (0-5); Hematocrit 33.3 % (40-54); Lymphocyte # 1.26 X10^3/ul (4.0); Lymphocyte % 23.6 % (19-41); Mean Corpuscular Hgb 26.9 pg (27.0-32.0); Mean Corpuscular Volume 81.4 fL (80-94); Mean Platelet Vol. 9.7 fl (6.2-12.0); Monocyte# 0.36 X10^3/uL; Monocyte% 6.7 % (0-10); NRBC Flagged by Analyzer 0 % (0-5); Neutrophil # 3.54 X10^3/uL (2.7-7.7); Neutrophil % 66.3 % (47-70); Platelet Count 261 K/mm3 (150-450); RBC Distribution Width CV 13.3 % (11.6-14.6); RBC Distribution Width SD 39.5 fl (35.1-43.9); Red Blood Count 4.09 M/mm3 (4.6-6.2); White Blood Count 5.3 K/mm3 (4.4-11.0)
--- NOTE | 2019-09-23 14:57 | RAD_ITS ---
STUDY: X-RAY CHEST REASON FOR EXAM: Male, 63 years old. CHEST PAIN AND COUGH, DIZZINESS -- PT WITH HISTORY OF HTN AND PACEMAKER TECHNIQUE: PA and lateral views of the chest. COMPARISON: Comparison is made with prior study dated August 20, 2019. FINDINGS: EKG electrodes are seen. Mild degree of vascular congestion with increased interstitial markings at the lung bases with areas of confluence likely worse on the right side. Blunting of both costophrenic angles. Findings are in keeping with this mild degree of CHF. Normal size heart. A left-sided dual chamber pacemaker is seen. Normal mediastinum and merna. Normal visualized pulmonary arteries. Normal visualized aortic arch and descending thoracic aorta. There are diffuse degenerative changes of the visualized thoracic spine. Normal visualized ribs, clavicles, and shoulders. There is no demonstrated abnormality of the visualized soft tissue structures of the upper abdomen. RAD/Chest PA and Lateral IMPRESSION: Findings suggestive of mild degree of CHF. Electronically Signed: Joseph Denton, at 15:26 EST , Service support ,
[2019-09-23] MEDS: Ketorolac 15 MG/ML Vial IV (14:58)
[2019-09-23 15:06] LABS: Anion Gap 5 (5-15); BUN 27 mg/dL (7-18); BUN/Creat Ratio 18.4 RATIO (10-20); Calcium,Total 8.6 mg/dL (8.5-10.1); Chloride 109 mmol/L (98-107); Creatinine, Serum 1.47 mg/dL (0.70-1.30); EST Glomerular Filtration Rate 52 mL/min (>60); Est Glom Filt Rate - Afr Amer 63 mL/min (>60); Estimated Creatinine Clearance 52.77 ml/min; Glucose 399 mg/dL (74-106); Potassium 3.9 mmol/L (3.5-5.1); Sodium Level 141 mmol/L (136-145)
[2019-09-23 15:15] VITALS: BP 192/94; PULSE 80; RESP 23; O2SAT 96
[2019-09-23 16:00] VITALS: BP 184/86; PULSE 81; RESP 23; O2SAT 95
[2019-09-23] MEDS: Insulin Lispro 100 UNIT/ML INSULN.PEN 8 UNIT SC (16:41)
[2019-09-23 17:06] VITALS: BP 186/85; PULSE 86; RESP 17; O2SAT 95
== END 2019-09-23 17:06 | disposition home or self-care (01) ==
PROVIDERS: Emergency Provider Emergency Medicine; PCP Internal Medicine
DX: R07.89 Other chest pain (principal); E11.65 Type 2 diabetes mellitus with hyperglycemia; I10 Essential (primary) hypertension; I47.1 Supraventricular tachycardia; I44.2 Atrioventricular block, complete; E78.5 Hyperlipidemia, unspecified; Z79.82 Long term (current) use of aspirin; Z79.02 Long term (current) use of antithrombotics/antiplatelets; Z79.4 Long term (current) use of insulin; Z79.899 Other long term (current) drug therapy; Z87.891 Personal history of nicotine dependence; Z86.73 Personal history of transient ischemic attack (TIA), and cerebral infarction without residual deficits; Z95.0 Presence of cardiac pacemaker
CPT/HCPCS: 71046; 80048; 84484; 85025; 93005; 96374; 99285; A4216

== ENCOUNTER 2019-09-25 17:52 | Emergency (ER) | payer MEDICAID, SELFPAY ==
[2019-09-25 17:53] VITALS: BP 185/89; PULSE 85; RESP 16; TEMP 37; O2SAT 95; BMI 25.1
[2019-09-25 19:47] LABS: Absolute Lymphocyte Count 1.69 X10^3/uL (0.83-4.51); Absolute Neutrophil Count 3.8 X10^3/uL (2.0-7.7); Basophil# 0.02 X10^3/uL; Basophil% 0.3 % (0-1); Eosinophil# 0.11 X10^3/uL; Eosinophils% 1.8 % (0-5); Hematocrit 30.6 % (40-54); Hemoglobin 10.2 g/dL (13.0-16.5); Lymphocyte # 1.69 X10^3/ul (4.0); Lymphocyte % 27.6 % (19-41); Mean Corp Hgb Conc 33.3 g/dL (32-36); Mean Corpuscular Hgb 26.6 pg (27.0-32.0); Mean Corpuscular Volume 79.7 fL (80-94); Mean Platelet Vol. 9.6 fl (6.2-12.0); Monocyte# 0.51 X10^3/uL; Monocyte% 8.3 % (0-10); NRBC Flagged by Analyzer 0 % (0-5); Neutrophil # 3.77 X10^3/uL (2.7-7.7); Neutrophil % 61.5 % (47-70); Platelet Count 247 K/mm3 (150-450); RBC Distribution Width CV 13.6 % (11.6-14.6); RBC Distribution Width SD 39.2 fl (35.1-43.9); Red Blood Count 3.84 M/mm3 (4.6-6.2); White Blood Count 6.1 K/mm3 (4.4-11.0)
[2019-09-25] MEDS: hydrALAZINE 20 MG/ML Vial 5 MG IV (19:56)
[2019-09-25 20:06] LABS: ALB/GLOB Ratio 0.8 RATIO (0.9-2.4); AST(SGOT) 23 U/L (15-37); Alanine Aminotransfer ALT/SGPT 21 U/L (16-61); Albumin, Serum 2.5 g/dL (3.2-5.0); Alkaline Phosphatase 105 U/L (45-117); Anion Gap 4 (5-15); BUN 31 mg/dL (7-18); Calcium,Total 8.4 mg/dL (8.5-10.1); Chloride 109 mmol/L (98-107); Creatinine, Serum 1.29 mg/dL (0.70-1.30); EST Glomerular Filtration Rate 60 mL/min (>60); Est Glom Filt Rate - Afr Amer 73 mL/min (>60); Estimated Creatinine Clearance 60.13 ml/min; Globulin 3.1 g/dL (2.2-4.2); Glucose 244 mg/dL (74-106); Protein, Total 5.6 g/dL (6.4-8.2); Sodium Level 140 mmol/L (136-145)
[2019-09-25 20:49] VITALS: BP 170/73
[2019-09-25 21:20] VITALS: BP 167/86; PULSE 81; RESP 16; O2SAT 95
[2019-09-25 21:36] VITALS: BP 158/72; PULSE 81; RESP 21; O2SAT 93
--- NOTE | 2019-09-25 22:47 | ED.VISSUMM ---
- ER Visit Summary Date of Service: 09/25/19 Chief Complaint: Hypertension History of Present Illness: The patient is a 63 M who presents with elevated blood pressures that have been up and down over the past several days. Patient states he was seen here earlier this week and was given a medication. Patient states his blood pressure improved after this and he was instructed to follow-up with his primary care physician. Patient states his blood pressure went back up again tonight and he has not followed up with his primary care physician for this yet. Patient states nothing makes it better or worse. Patient admits to some intermittent blurred vision. Patient also admits to a recent cough. Patient denies taking [id number] decongestants or cough medicines. Upon review of his chart from his last visit patient was given an injection of Toradol for his pain that he was having at that time. Patient was not given any antihypertensives at that time. Patient's blood pressure improved after his pain improved. Physical Examination: Vital signs are stable except for an elevated blood pressure 185/89. Patient is afebrile. Patient is in no acute distress. Oral mucosa is pink and moist. Oropharynx is clear. Neck is supple. Trachea is midline. There is no JVD. Heart was regular rate and rhythm. Lungs are clear and equal bilaterally. Abdomen is soft. Bowel sounds are normal. There is no tenderness. Cranial nerves II through XII are intact. There are no focal motor or sensory deficits noted. Test Results: CBC and basic metabolic profile were obtained and were within normal limits. Troponin was normal at 0.021. Emergency Department Course and Treatment: Patient was given a dose of hydralazine here. Patient's blood pressure improved with this. Patient is feeling better. He was instructed to keep a log of his blood pressures until he follows up with his primary care physician. Patient was instructed to follow-up with his primary care physician in 3 to 5 days. Patient understood and was agreeable with the plan. All questions were answered. Disposition: Discharge home Impression: Hypertension This note was generated with [employer] dictation software. It may contain incorrect words, spelling, and punctuation that were not noted in review of the chart prior to signing ED Disposition - Plan for ED Patient: Disposition: Home or Assisted Living Diagnosis: Hypertension Instructions: HYPERTENSION, Established Referrals: Vera Lucas MD [Primary Care Provider] - 3-5 Days
[2019-09-25 22:57] VITALS: BP 152/72; PULSE 78; RESP 17; O2SAT 96
== END 2019-09-25 23:01 | disposition home or self-care (01) ==
PROVIDERS: Emergency Provider Emergency Medicine; PCP Internal Medicine
DX: I10 Essential (primary) hypertension (principal); E11.9 Type 2 diabetes mellitus without complications; H53.8 Other visual disturbances; R05 Cough; Z79.02 Long term (current) use of antithrombotics/antiplatelets; Z79.82 Long term (current) use of aspirin; Z79.4 Long term (current) use of insulin; Z79.899 Other long term (current) drug therapy
CPT/HCPCS: 80053; 84484; 85025; 99285; A4216

== ENCOUNTER → 2019-11-04 | Outpatient (CLI) | payer MEDICAID, SELFPAY ==
[2019-11-04 14:18] VITALS: BMI 24.2
--- NOTE | 2019-11-04 14:50 | RAD_ITS ---
STUDY: X-RAY CHEST REASON FOR EXAM: Male, 63 years old. patient complains of shortness of breath TECHNIQUE: PA and lateral views of the chest. COMPARISON: 09/23/2019 FINDINGS: Left subclavian dual-lead pacemaker which is unchanged. The lungs are clear and expanded. Tiny bilateral pleural effusions. Normal size heart. Normal mediastinum and merna. Normal visualized pulmonary arteries. Normal visualized aortic arch and descending thoracic aorta. Normal visualized thoracic spine. Normal visualized ribs, clavicles, and shoulders. There is no demonstrated abnormality of the visualized soft tissue structures of the upper abdomen. RAD/Chest PA and Lateral IMPRESSION: Tiny bilateral pleural effusions. Electronically Signed: Danny Mcdaniel MD at 16:56 EDT Tel , Service support ,
[2019-11-04 15:58] LABS: Absolute Lymphocyte Count 1.58 X10^3/uL (0.83-4.51); Absolute Neutrophil Count 4.4 X10^3/uL (2.0-7.7); Basophil# 0.02 X10^3/uL; Basophil% 0.3 % (0-1); Eosinophil# 0.11 X10^3/uL; Eosinophils% 1.7 % (0-5); Hematocrit 33.6 % (40-54); Lymphocyte # 1.58 X10^3/ul (4.0); Lymphocyte % 24.1 % (19-41); Mean Corp Hgb Conc 32.7 g/dL (32-36); Mean Corpuscular Hgb 26.8 pg (27.0-32.0); Mean Platelet Vol. 9.5 fl (6.2-12.0); Monocyte# 0.41 X10^3/uL; Monocyte% 6.3 % (0-10); NRBC Flagged by Analyzer 0 % (0-5); Neutrophil # 4.39 X10^3/uL (2.7-7.7); Platelet Count 257 K/mm3 (150-450); RBC Distribution Width CV 13.7 % (11.6-14.6); RBC Distribution Width SD 39.9 fl (35.1-43.9); White Blood Count 6.6 K/mm3 (4.4-11.0)
[2019-11-04 16:16] LABS: Anion Gap 6 (5-15); BUN 29 mg/dL (7-18); BUN/Creat Ratio 21.3 RATIO (10-20); Calcium,Total 8.5 mg/dL (8.5-10.1); Chloride 111 mmol/L (98-107); Creatinine, Serum 1.36 mg/dL (0.70-1.30); EST Glomerular Filtration Rate 57 mL/min (>60); Est Glom Filt Rate - Afr Amer 68 mL/min (>60); Glucose 225 mg/dL (74-106); Sodium Level 142 mmol/L (136-145)
[2019-11-04 16:17] LABS: BNP,B-Type NATRIURETIC PEPTIDE 732.9 pg/mL (0-100)
== END | disposition home or self-care (01) ==
LOC: RAD 14:50
PROVIDERS: PCP Internal Medicine; Referring Provider Nurse Practitioner Family; Visit Provider Nurse Practitioner Family
DX: I10 Essential (primary) hypertension (principal); R06.02 Shortness of breath; E78.5 Hyperlipidemia, unspecified
CPT/HCPCS: 36415; 71046; 80048; 83880; 85025

== ENCOUNTER 2020-01-01 14:55 | Emergency (ER) | payer MEDICAID, SELFPAY ==
[2019-11-04 14:18] VITALS: BMI 24.2
[2020-01-01 14:57] VITALS: BP 172/77; PULSE 76; RESP 18; TEMP 36.6; O2SAT 98; BMI 24.4
--- NOTE | 2020-01-01 15:55 | EKG12_ITS ---
Test Reason : GEN ILLNESS Blood Pressure : / mmHG Vent. Rate : 077 BPM Atrial Rate : 077 BPM P-R Int : 158 ms QRS Dur : 094 ms QT Int : 420 ms P-R-T Axes : 041 -13 089 degrees QTc Int : 475 ms Normal sinus rhythm Voltage criteria for left ventricular hypertrophy Nonspecific T wave abnormality Prolonged QT Abnormal ECG Confirmed by YESSICA PATEL ([id number]), news assignment editor DENNIS STOKES ([id number]) on 01/06/2020 11:32:07 AM Referred By: ALEXANDRA Confirmed By:YESSICA PATEL
[2020-01-01] MEDS: Acetaminophen 500 MG Tablet 1000 MG PO (16:13)
--- NOTE | 2020-01-01 16:15 | RAD_ITS ---
STUDY: X-RAY CHEST REASON FOR EXAM: Male, 64 years old. Not specified TECHNIQUE: Single frontal view of the chest. COMPARISON: 11/04/2019. FINDINGS: Left dual lead cardiac device Cardiac silhouette is prominent. Pulmonary vascularity unremarkable. Aorta unremarkable. No focal airspace opacities. No pleural effusions. Upper abdomen unremarkable. Osseous structures intact. No pneumothorax. RAD/Chest 1 View (Portable) IMPRESSION: No acute cardiopulmonary findings Electronically Signed: Jorge Blanton, at 16:56 EDT Tel , Service support ,
[2020-01-01 16:20] LABS: Absolute Lymphocyte Count 1.67 X10^3/uL (0.83-4.51); Absolute Neutrophil Count 4.2 X10^3/uL (2.0-7.7); Basophil# 0.03 X10^3/uL; Basophil% 0.5 % (0-1); Eosinophil# 0.15 X10^3/uL; Eosinophils% 2.3 % (0-5); Hematocrit 31.1 % (40-54); Hemoglobin 10.2 g/dL (13.0-16.5); Lymphocyte # 1.67 X10^3/ul (4.0); Lymphocyte % 25.1 % (19-41); Mean Corp Hgb Conc 32.8 g/dL (32-36); Mean Corpuscular Hgb 26.9 pg (27.0-32.0); Mean Corpuscular Volume 82.1 fL (80-94); Mean Platelet Vol. 9.2 fl (6.2-12.0); Monocyte# 0.53 X10^3/uL; NRBC Flagged by Analyzer 0 % (0-5); Neutrophil # 4.22 X10^3/uL (2.7-7.7); Neutrophil % 63.2 % (47-70); Platelet Count 242 K/mm3 (150-450); RBC Distribution Width CV 14.5 % (11.6-14.6); RBC Distribution Width SD 42.3 fl (35.1-43.9); Red Blood Count 3.79 M/mm3 (4.6-6.2); White Blood Count 6.7 K/mm3 (4.4-11.0)
--- NOTE | 2020-01-01 16:23 | ED.VISSUMM ---
- ER Visit Summary Date of Service: 01/01/20 Chief Complaint: General weakness History of Present Illness: The patient is a 64 M who presents with general weakness and fatigue that began yesterday. Patient states I do not feel right. Patient states he has been having difficulty doing his normal daily activities because of the weakness. Patient admits to some blurred vision and a mild headache. Patient denies any chest pain or shortness of breath. Patient denies any nausea or vomiting. Patient denies any urinary complaints. Patient denies any fevers or chills. Physical Examination: Vital signs are stable. Patient is afebrile. Patient is in no acute distress. Oral mucosa is pink and moist. Neck is supple. Trachea is midline. There is no JVD noted. Heart was regular rate and rhythm. Lungs are clear and equal bilaterally. Abdomen is soft. Bowel sounds are normal. There is no tenderness. There is no rebound or guarding noted. Skin is warm dry. Cranial nerves II through XII are intact. There are no focal motor or sensory deficits noted. Extremities are intact. There is no calf tenderness or edema. Test Results: EKG I now showed normal sinus rhythm. There is left ventricular hypertrophy. There are nonspecific ST-T wave changes. This was unchanged compared to previous EKG dated 09/23/2019. CBC showed a slight anemia with a hemoglobin of 10.2 hematocrit 31.1. BUN was elevated at 35. Creatinine was 1.2. Urinalysis was essentially within normal limits. Portable chest x-ray was obtained and does not show any acute cardiopulmonary process. This was interpreted by the radiologist and reviewed by myself. Emergency Department Course and Treatment: Patient was given Tylenol. Patient was given IV fluids. Patient was feeling better on reevaluation. Patient was instructed to drink plenty of fluids. Patient was instructed to follow-up with his primary care physician in 5 to 7 days. Patient understood and was agreeable with the plan. All questions were answered. Disposition: Discharge home Impression: 1. Mild dehydration This note was generated with [employer] dictation software. It may contain incorrect words, spelling, and punctuation that were not noted in review of the chart prior to signing ED Disposition - Plan for ED Patient: Disposition: Home or Assisted Living Diagnosis: Mild dehydration Instructions: ED Dehydration Adult Referrals: Vera Lucas MD [Primary Care Provider] - 5-7 Days
[2020-01-01 16:49] LABS: Bacteria 0 SEEN /hpf (None Seen); Mucous, Urine 0 SEEN /hpf (<or=2+); Squamous Epithelial Cells - UA 0 SEEN /hpf (0-5); White Blood Cells 0 SEEN /hpf (0-5)
[2020-01-01 16:56] VITALS: BP 158/71; PULSE 70; RESP 18; O2SAT 98
[2020-01-01 17:04] LABS: Color, Urine Yellow (Yellow); Glucose, Dipstick 50 mg/dl (Normal); Ketone-Dipstick Negative (Negative); Leukocyte Esterase-Dipstick Negative /ul (Negative); Nitrite-Dipstick Negative (Negative); Occult Blood-Urine 25 /ul (Negative); Protein-Dipstick 500 mg/dl (Negative); Urine Bilirubin Dipstick Negative (Negative); Urine Clarity Clear (Clear); Urine Urobilinogen Normal (Normal)
[2020-01-01 17:16] LABS: Red Blood Cells-Urine 0-5 SEEN /hpf (0-5)
[2020-01-01 17:42] LABS: ALB/GLOB Ratio 0.9 RATIO (0.9-2.4); AST(SGOT) 17 U/L (15-37); Alanine Aminotransfer ALT/SGPT 29 U/L (16-61); Albumin, Serum 2.9 g/dL (3.2-5.0); Alkaline Phosphatase 119 U/L (45-117); Anion Gap 5 (5-15); BUN 35 mg/dL (7-18); BUN/Creat Ratio 29.2 RATIO (10-20); Calcium,Total 8.5 mg/dL (8.5-10.1); Chloride 110 mmol/L (98-107); EST Glomerular Filtration Rate 65 mL/min (>60); Est Glom Filt Rate - Afr Amer 79 mL/min (>60); Estimated Creatinine Clearance 63.83 ml/min; Globulin 3.4 g/dL (2.2-4.2); Glucose 99 mg/dL (74-106); Potassium 3.5 mmol/L (3.5-5.1); Protein, Total 6.3 g/dL (6.4-8.2); Sodium Level 143 mmol/L (136-145)
[2020-01-01 18:00] VITALS: BP 159/71; PULSE 68; RESP 18; O2SAT 96
[2020-01-01] MEDS: 0.9% Normal Saline 1,000 ML 1000 ML IV (18:27)
[2020-01-01 19:13] VITALS: BP 171/72; PULSE 72; RESP 18; O2SAT 95
[2020-01-01 20:02] VITALS: BP 171/72; PULSE 76; RESP 19; O2SAT 96
== END 2020-01-01 20:03 | disposition home or self-care (01) ==
PROVIDERS: Emergency Provider Emergency Medicine; PCP Internal Medicine
DX: E86.0 Dehydration (principal); I51.7 Cardiomegaly; D64.9 Anemia, unspecified; R51 Headache; Z95.0 Presence of cardiac pacemaker
CPT/HCPCS: 71045; 80053; 81001; 84484; 85025; 93005; 96360; 96361; 99285; J7030; A4216

== ENCOUNTER 2020-01-30 21:18 | Emergency (ER) | payer MEDICAID, SELFPAY ==
[2020-01-30 21:20] VITALS: BP 146/78; PULSE 75; RESP 16; TEMP 36.2; O2SAT 97; BMI 23.6
[2020-01-30] MEDS: Carbamide Peroxide 15 ML Bottle 5 DRP OTIC (21:41)
--- NOTE | 2020-01-30 21:42 | ED.VIS.GEN ---
History of Present Illness Chief Complaint: Ear Problem Informant: Patient Onset: Weeks Context: Gradual Onset Timing: Continuous Current Severity: Moderate Maximum Severity: Moderate Narrative: The patient is a 64-year-old male with medical history significant for prior TIA and stroke that presents to the emergency department with bilateral ear fullness. The patient dates for the past month, he has had gradually decreased hearing. He states that he is had this before when he has had wax buildup. He denies any fever. He denies any chills or sweats. He denies any drainage from the ear. Prior similar symptoms: No Recent Illness/Hospitalization: No Past Medical History - Allergies and Home Meds Allergies/Adverse Reactions: Allergies metformin [From Glucophage] Adverse Reaction (Verified 01/30/20 21:20) Diarrhea Primary Care Physician: Vera Lucas MD [Primary Care Provider] - Prior records reviewed: Yes Past Medical History: - - Hypertension, hyperlipidemia, prior stroke, pacemaker implantation Surgical History: pacemaker implantation, - - Carpal tunnel surgery Smoking Status: Never smoker - Family History Paternal Family History: Reports: Heart Disease Maternal Family History: Reports: No pertinent history Review of Systems General: Denies: Chills, Fever, Sweats Eyes: Denies: Visual changes - bilaterally, Diplopia ENT: Reports: Bilateral ear pain. Denies: Rhinorrhea, Sore throat Cardiovascular: Denies: Chest pain, Palpitations Respiratory: Denies: Dyspnea, Cough, Dyspnea on exertion Gastrointestinal: Denies: Abdominal pain, Nausea, Vomiting, Diarrhea, Melena, Hematochezia Genitourinary: Denies: Dysuria, Hematuria, Frequency Musculoskeletal: Denies: Back pain, Extremity Pain Skin: Denies: Rash, Wounds Neurological: Denies: Headache, Weakness, Numbness Physical Exam Vital Signs/Narrative: Vital Signs Temp Pulse Resp BP Pulse Ox 01/30/20 21:20 97.1 F L 75 16 146/78 H 97 Inital Vital Signs reviewed: Yes General: Well nourished, Well developed, No Acute Distress Head: Normocephalic, Atraumatic Eyes: Perrl, EOMI ENT: Moist mucous membranes, No rhinorrhea, - - TMs are impacted bilaterally. No mastoid tenderness. Neck: Supple, Nontender Cardiovascular: Regular rate, Regular rhythm, No murmurs Respiratory: No distress, CTA bilaterally, Chest nontender Abdomen: Soft, Nontender, Nondistended, Normal bowel sounds Back: Nontender, Normal Inspection Extremities: Nontender, No edema Skin: Normal color, No rash Neurological: Alert, Oriented x3, Cranial nerves II-XII grossly intact, Normal Strength, Normal Sensation Psychological: Normal affect, Normal Mood Diagnostic/Tx/Re-eval - Medical Decision Making The patient has obvious cerumen impaction of both ears. Debrox was instilled. The ears were irrigated. On reevaluation, he is feeling markedly improved. The TMs are clear. The patient will be discharged home. Impression 1. Cerumen impaction ED Disposition - Plan for ED Patient: Instructions: ED Cerumen Impaction Treated Referrals: Vera Lucas MD [Primary Care Provider] -
[2020-01-30 22:33] VITALS: RESP 16
--- NOTE | 2020-01-30 22:33 | ED.RN ---
REVIEWED D/C INSTRUCTIONS, FOLLOW UP CARE, AND S/S THAT WOULD WARRANT A RETURN TO THE ED WITH PT. PT VERBALIZED AN UNDERSTANDING AND DENIES FURTHER QUESTIONS FOR THIS RN. PT SKIN P/W/D, RESP EVEN AND UNLABORED, PT A&O X 3, NO DISTRESS NOTED. PT AMBULATED OUT OF ED, GAIT STEADY.
== END 2020-01-30 22:34 | disposition home or self-care (01) ==
LOC: ED 21:46
PROVIDERS: Emergency Provider Emergency Medicine; PCP Internal Medicine
DX: H61.23 Impacted cerumen, bilateral (principal); I10 Essential (primary) hypertension; E78.5 Hyperlipidemia, unspecified; Z95.0 Presence of cardiac pacemaker; Z79.02 Long term (current) use of antithrombotics/antiplatelets; Z79.82 Long term (current) use of aspirin; Z79.4 Long term (current) use of insulin; Z79.899 Other long term (current) drug therapy; Z86.73 Personal history of transient ischemic attack (TIA), and cerebral infarction without residual deficits
CPT/HCPCS: 99283

== ENCOUNTER 2020-02-19 17:48 | Emergency (ER) | payer MEDICAID, SELFPAY ==
[2020-02-19 17:50] VITALS: BP 171/75; PULSE 69; RESP 16; TEMP 36.7; O2SAT 98; BMI 23.6
[2020-02-19 17:52] VITALS: BP 171/75; PULSE 71; RESP 16; TEMP 36.7; O2SAT 98
--- NOTE | 2020-02-19 18:10 | EKG12_ITS ---
Test Reason : GEN ILLNESS Blood Pressure : / mmHG Vent. Rate : 066 BPM Atrial Rate : 066 BPM P-R Int : 212 ms QRS Dur : 096 ms QT Int : 440 ms P-R-T Axes : 016 -20 000 degrees QTc Int : 461 ms Sinus rhythm with 1st degree A-V block Voltage criteria for left ventricular hypertrophy Abnormal ECG Confirmed by BOUCHRA VILLA, FESTUS ([id number]), city editor ROCKY LO ([id number]) on 02/24/2020 11:06:54 AM Referred By: MANDI Confirmed By:FESTUS SHOOK MD
--- NOTE | 2020-02-19 18:11 | ED.DCSUM_ITS ---
History of Present Illness Chief Complaint: General Illness Informant: Patient Onset: Today Current Severity: Mild Maximum Severity: Moderate Narrative: Patient presents via EMS secondary to generalized weakness. He states today he does feels weak and tired. He felt okay yesterday. No recent changes to his medications. He denies fever or chills. No cough or congestion. He denies abdominal pain. He states he has been eating normally. - Past Medical History (1) CVA (cerebral vascular accident) Status: Chronic Comment: lacunar infarct in the right thalamus measures 5mm (2) Complete heart block Status: Chronic (3) Diabetes mellitus Status: Chronic (4) Essential (primary) hypertension Status: Chronic (5) HLD (hyperlipidemia) Status: Chronic (6) History of permanent cardiac pacemaker placement Status: Chronic (7) Paroxysmal supraventricular tachycardia Status: Chronic (8) Sick sinus syndrome Status: Chronic Past Medical History - Allergies and Home Meds Allergies/Adverse Reactions: Allergies metformin [From Glucophage] Adverse Reaction (Verified 01/30/20 21:20) Diarrhea Primary Care Physician: Vera Lucas MD [Primary Care Provider] - Prior records reviewed: Yes Surgical History: pacemaker implantation, - - Carpal tunnel surgery Smoking Status: Former smoker - Family History Paternal Family History: Reports: Heart Disease Maternal Family History: Reports: No pertinent history Review of Systems General: Denies: Chills, Fever Eyes: Denies: Visual changes - bilaterally ENT: Denies: Bilateral ear pain Cardiovascular: Denies: Chest pain Respiratory: Denies: Dyspnea, Cough Gastrointestinal: Denies: Abdominal pain, Nausea, Vomiting, Diarrhea Genitourinary: Denies: Dysuria Musculoskeletal: Denies: Swelling, Extremity Pain Skin: Denies: Rash Neurological: Reports: Weakness. Denies: Headache, Parasthesia, Numbness Hematologic: Denies: Easy bruising, Easy bleeding Allergy: Denies: Uticaria Physical Exam Vital Signs/Narrative: Vital Signs Temp Pulse Resp BP Pulse Ox 02/19/20 17:52 98.1 F 71 16 171/75 H 98 02/19/20 17:50 98.1 F 69 16 171/75 H 98 Inital Vital Signs reviewed: Yes General: Well nourished, Well developed Head: Normocephalic ENT: Moist mucous membranes Neck: Supple Cardiovascular: Regular rate, Regular rhythm Respiratory: No distress, CTA bilaterally Abdomen: Soft, Nontender, Normal bowel sounds Extremities: Nontender Skin: Normal color Neurological: Alert, Oriented x3, Normal Strength, Normal Sensation Psychological: Normal affect Diagnostic/Tx/Re-eval Impressions Chest X-Ray 02/19/20 18:47 IMPRESSION: Calcified plaques of the aortic arch. No acute cardiopulmonary disease process is seen. Chest findings are stable in the interval. Electronically Signed: Elliot Choi MD at 19:10 EDT , Service support , 02/19/20 18:47 Chest 1 View (Portable) [RAD] Stat Laboratory Results 02/19/20 02/19/20 02/19/20 18:27 18:40 18:40 WBC 7.1 RBC 3.43 L Hgb 9.8 L Hct 28.5 L MCV 83.1 MCH 28.6 MCHC 34.4 RDW Std Deviation 40.1 RDW Coeff of Harry 13.3 Plt Count 243 MPV 9.3 Immature Gran % (Auto) 0.800 Neut % (Auto) 69.0 Lymph % (Auto) 20.5 [place] % (Auto) 6.9 Eos % (Auto) 2.5 Baso % (Auto) 0.3 Absolute Neuts (auto) 4.9 Absolute Lymphs (auto) 1.46 Nucleated RBC % 0 Sodium 137 Potassium 4.4 Chloride 106 Carbon Dioxide 23.0 Anion Gap 8 BUN 64 H Creatinine 2.02 H Estim Creat Clear Calc 37.92 Est GFR (MDRD) Af Amer 43 L Est GFR (MDRD) Non-Af 36 L BUN/Creatinine Ratio 31.7 H Glucose 301 H Calcium 8.5 Total Bilirubin 0.30 Direct Bilirubin 0.09 AST 13 L ALT 26 Alkaline Phosphatase 125 H Troponin I < 0.015 Total Protein 6.4 Albumin 3.1 L Globulin 3.3 Urine Color Yellow Urine Clarity Clear Urine pH 5.0 Ur Specific Cornish 1.015 Urine Protein 500 H Urine Glucose (UA) 250 H Urine Ketones Negative Urine Occult Blood 10 H Urine Nitrite Negative Urine Bilirubin Negative Urine Urobilinogen Normal Ur Leukocyte Esterase Negative Urine RBC 0 SEEN Urine WBC 0 SEEN Ur Squamous Epith Cells 0-5 SEEN Urine Bacteria RARE Urine Mucus 0 SEEN - EKG Initial EKG Interpretation: Sinus Rhythm - Sinus at 66. Nonspecific lateral T wave flattening. No acute ST change. - Medical Decision Making Patient was given IV fluids here. EKG and blood work are remarkable only for mild dehydration with an elevation in his creatinine. He will be given a full liter of IV fluid and then discharged home. He is to increase fluids at home and follow-up with his PCP for repeat lab test. On repeat evaluation he does feel improved. ED Disposition - Plan for ED Patient: Disposition: Home or Assisted Living Diagnosis: Dehydration Instructions: ED Dehydration Adult Referrals: Vera Lucas MD [Primary Care Provider] - 1 Week
[2020-02-19 18:37] LABS: Mucous, Urine 0 SEEN /hpf (<or=2+); Red Blood Cells-Urine 0 SEEN /hpf (0-5); White Blood Cells 0 SEEN /hpf (0-5)
[2020-02-19] MEDS: 0.9% Normal Saline 1,000 ML 150 ML IV (18:44)
--- NOTE | 2020-02-19 18:47 | RAD_ITS ---
STUDY: X-RAY CHEST REASON FOR EXAM: Male, 64 years old. C/O GENERAL WEAKNESS, PT WAS UNABLE TO CONNECT WITH PACER CHECK TODAY. TECHNIQUE: Single AP portable view of the chest. COMPARISON: Previous study of 01/01/2020 FINDINGS: There is a bipolar left-sided pacemaker. monitor car operator leads are present. The lungs are clear and expanded. There is no demonstrated pleural abnormality. Normal size heart. Normal mediastinum and merna. Normal visualized pulmonary arteries. There calcified plaques of the aortic arch. Normal visualized thoracic spine. Normal visualized ribs, clavicles, and shoulders. There is no demonstrated abnormality of the visualized soft tissue structures of the upper abdomen. RAD/Chest 1 View (Portable) IMPRESSION: Calcified plaques of the aortic arch. No acute cardiopulmonary disease process is seen. Chest findings are stable in the interval. Electronically Signed: Elliot Choi MD at 19:10 EDT , Service support ,
[2020-02-19 18:52] LABS: Absolute Lymphocyte Count 1.46 X10^3/uL (0.83-4.51); Absolute Neutrophil Count 4.9 X10^3/uL (2.0-7.7); Basophil# 0.02 X10^3/uL; Basophil% 0.3 % (0-1); Eosinophil# 0.18 X10^3/uL; Eosinophils% 2.5 % (0-5); Hematocrit 28.5 % (40-54); Hemoglobin 9.8 g/dL (13.0-16.5); Lymphocyte # 1.46 X10^3/ul (4.0); Lymphocyte % 20.5 % (19-41); Mean Corp Hgb Conc 34.4 g/dL (32-36); Mean Corpuscular Hgb 28.6 pg (27.0-32.0); Mean Corpuscular Volume 83.1 fL (80-94); Mean Platelet Vol. 9.3 fl (6.2-12.0); Monocyte# 0.49 X10^3/uL; Monocyte% 6.9 % (0-10); NRBC Flagged by Analyzer 0 % (0-5); Platelet Count 243 K/mm3 (150-450); RBC Distribution Width CV 13.3 % (11.6-14.6); RBC Distribution Width SD 40.1 fl (35.1-43.9); Red Blood Count 3.43 M/mm3 (4.6-6.2); White Blood Count 7.1 K/mm3 (4.4-11.0)
[2020-02-19 18:58] LABS: Color, Urine Yellow (Yellow); Glucose, Dipstick 250 mg/dl (Normal); Ketone-Dipstick Negative (Negative); Leukocyte Esterase-Dipstick Negative /ul (Negative); Nitrite-Dipstick Negative (Negative); Occult Blood-Urine 10 /ul (Negative); Protein-Dipstick 500 mg/dl (Negative); Specific Gravity, Urine 1.015 (1.002-1.030); Urine Bilirubin Dipstick Negative (Negative); Urine Clarity Clear (Clear); Urine Urobilinogen Normal (Normal)
[2020-02-19 19:06] LABS: Bacteria RARE /hpf (None Seen); Squamous Epithelial Cells - UA 0-5 SEEN /hpf (0-5)
[2020-02-19 19:27] LABS: AST(SGOT) 13 U/L (15-37); Alanine Aminotransfer ALT/SGPT 26 U/L (16-61); Albumin, Serum 3.1 g/dL (3.2-5.0); Alkaline Phosphatase 125 U/L (45-117); Anion Gap 8 (5-15); BUN 64 mg/dL (7-18); BUN/Creat Ratio 31.7 RATIO (10-20); Bilirubin, Direct 0.09 mg/dL (0.00-0.30); Calcium,Total 8.5 mg/dL (8.5-10.1); Chloride 106 mmol/L (98-107); Creatinine, Serum 2.02 mg/dL (0.70-1.30); EST Glomerular Filtration Rate 36 mL/min (>60); Est Glom Filt Rate - Afr Amer 43 mL/min (>60); Estimated Creatinine Clearance 37.92 ml/min; Globulin 3.3 g/dL (2.2-4.2); Glucose 301 mg/dL (74-106); Potassium 4.4 mmol/L (3.5-5.1); Protein, Total 6.4 g/dL (6.4-8.2); Sodium Level 137 mmol/L (136-145)
[2020-02-19 19:49] VITALS: RESP 20
[2020-02-19] MEDS: 0.9% Normal Saline 1,000 ML 999 ML IV (19:49)
[2020-02-19 20:02] VITALS: BP 159/82; PULSE 65; RESP 18; O2SAT 98
== END 2020-02-19 20:54 | disposition home or self-care (01) ==
PROVIDERS: Emergency Provider Emergency Medicine; PCP Internal Medicine
DX: E86.0 Dehydration (principal); I47.1 Supraventricular tachycardia; I49.5 Sick sinus syndrome; I44.2 Atrioventricular block, complete; E11.9 Type 2 diabetes mellitus without complications; I10 Essential (primary) hypertension; E78.5 Hyperlipidemia, unspecified; Z79.02 Long term (current) use of antithrombotics/antiplatelets; Z79.82 Long term (current) use of aspirin; Z79.4 Long term (current) use of insulin; Z79.899 Other long term (current) drug therapy; Z87.891 Personal history of nicotine dependence; Z86.73 Personal history of transient ischemic attack (TIA), and cerebral infarction without residual deficits; Z95.0 Presence of cardiac pacemaker
CPT/HCPCS: 71045; 80048; 80076; 81001; 84484; 85025; 93005; 96360; 96361; 99285; J7030; A4216

== ENCOUNTER 2020-03-14 20:44 | Emergency (ER) | payer MEDICAID, SELFPAY ==
[2020-03-14 20:48] VITALS: BP 167/75; PULSE 80; RESP 18; TEMP 36.9; O2SAT 97; BMI 23.8
--- NOTE | 2020-03-14 20:48 | ED.VIS.GEN ---
History of Present Illness Chief Complaint: Hypertension Past Medical History - Allergies and Home Meds Allergies/Adverse Reactions: Allergies metformin [From Glucophage] Adverse Reaction (Verified 03/14/20 20:47) Diarrhea Primary Care Physician: Vera Lucas MD [Primary Care Provider] - Surgical History: pacemaker implantation, - - Carpal tunnel surgery Smoking Status: Former smoker - Family History Paternal Family History: Reports: Heart Disease Maternal Family History: Reports: No pertinent history ED Disposition - Plan for ED Patient: Referrals: Vera Lucas MD [Primary Care Provider] -
--- NOTE | 2020-03-14 21:02 | EKG12_ITS ---
Test Reason : HTN Blood Pressure : / mmHG Vent. Rate : 077 BPM Atrial Rate : 077 BPM P-R Int : 198 ms QRS Dur : 094 ms QT Int : 406 ms P-R-T Axes : 067 -11 061 degrees QTc Int : 459 ms Normal sinus rhythm Voltage criteria for left ventricular hypertrophy Nonspecific T wave abnormality Abnormal ECG Confirmed by ANNALISA VILLA, NINI ([id number]), pictures editor ROCKY LO ([id number]) on 03/16/2020 9:01:13 AM Referred By: BEL Confirmed By:NINI FANG MD
--- NOTE | 2020-03-14 21:02 | CT_ITS ---
STUDY: CT BRAIN WITHOUT CONTRAST REASON FOR EXAM: Male, 64 years old. Headache, hypertension RADIATION DOSAGE (If Supplied By Facility): CTDIvol = ( 44.99 ) mGy, DLP = ( 849.54 ) mGycm TECHNIQUE: Transaxial CT imaging of the brain was performed without administration of intravenous contrast material. Individualized dose optimization techniques were used for this CT. COMPARISON: 08/26/2019 FINDINGS: Normal soft tissue structures. Normal calvarium. There is mild cerebral atrophy with widening of the extra-axial spaces and ventricular dilatation. There are areas of decreased attenuation within the white matter tracts of the supratentorial brain, consistent with microvascular disease changes. Old lacunar infarcts in the basal ganglia. Normal brainstem. Normal cerebellum. There is no intracranial hemorrhage. There are no findings of an acute ischemic infarction. Normal visualized paranasal sinuses. CT/Brain/Head without Contrast IMPRESSION: Chronic involutional changes of the brain. No acute hemorrhage Electronically Signed: Mitchell Neves MD at 21:46 EDT , Service support ,
[2020-03-14 21:13] LABS: Absolute Lymphocyte Count 2.34 X10^3/uL (0.83-4.51); Absolute Neutrophil Count 6.1 X10^3/uL (2.0-7.7); Basophil# 0.03 X10^3/uL; Basophil% 0.3 % (0-1); Eosinophil# 0.16 X10^3/uL; Eosinophils% 1.7 % (0-5); Hematocrit 29.8 % (40-54); Hemoglobin 10.2 g/dL (13.0-16.5); Lymphocyte # 2.34 X10^3/ul (4.0); Lymphocyte % 25.2 % (19-41); Mean Corp Hgb Conc 34.2 g/dL (32-36); Mean Corpuscular Volume 81.9 fL (80-94); Mean Platelet Vol. 9.3 fl (6.2-12.0); Monocyte# 0.61 X10^3/uL; Monocyte% 6.6 % (0-10); NRBC Flagged by Analyzer 0 % (0-5); Neutrophil # 6.05 X10^3/uL (2.7-7.7); Neutrophil % 65.1 % (47-70); Platelet Count 292 K/mm3 (150-450); RBC Distribution Width CV 13.2 % (11.6-14.6); RBC Distribution Width SD 39.1 fl (35.1-43.9); Red Blood Count 3.64 M/mm3 (4.6-6.2); White Blood Count 9.3 K/mm3 (4.4-11.0)
[2020-03-14] MEDS: hydrALAZINE 50 MG Tablet PO (21:35)
[2020-03-14] MEDS: metFORMIN HCl 1,000 MG Tablet 1000 MG PO (21:36)
[2020-03-14 21:42] LABS: Anion Gap 7 (5-15); BUN 57 mg/dL (7-18); Calcium,Total 9.1 mg/dL (8.5-10.1); Chloride 105 mmol/L (98-107); Creatinine, Serum 2.11 mg/dL (0.70-1.30); EST Glomerular Filtration Rate 34 mL/min (>60); Est Glom Filt Rate - Afr Amer 41 mL/min (>60); Glucose 169 mg/dL (74-106); Potassium 4.6 mmol/L (3.5-5.1); Sodium Level 136 mmol/L (136-145)
--- NOTE | 2020-03-14 22:01 | ED.DCSUM_ITS ---
- ER Visit Summary Date of Service: 03/14/20 Chief Complaint: High blood pressure History of Present Illness: The patient is a [address] Schrader and Dr. Baez for he. He reports that his blood pressure usually runs 167/87. Tonight he took it was 201/87. States that he is not having any chest pain or shortness of breath. He reports that he has a headache all the time. There is no change in this. He states that he is had generalized weakness for the past 2 months. He denies any other complaints. Physical Examination: Vitals: Stable. Afebrile. General: Well-nourished and well-developed. Head: Normocephalic atraumatic. Neck: Supple, no lymphadenopathy. No JVD. Nontender. Cardiovascular: Regular rate and rhythm. No murmurs. Respiratory: No respiratory distress. Clear to auscultation bilaterally. Abdominal: Soft, nontender, nondistended, normal bowel sounds. No guarding, rebound, or peritoneal signs. Back: Nontender. Extremities: Nontender, no edema. Skin: Normal color, no rash. Neurologic: Alert and oriented ?3. Cranial nerves II through XII are intact. Normal strength and sensation. Psych: Normal affect. Test Results: EKG is sinus at [address] changes. Troponin is negative. Chem-7 shows a glucose 169, BUN of 57, creatinine 2.11. His creatinine was 2.02 on February 18. It is been 1.09-1.47 in 2019 otherwise. CBC shows an H&H 10.2 and 29.8. Clinical Impression(s) from Imaging Studies Brain CT 03/14/20 21:02 IMPRESSION: Chronic involutional changes of the brain. No acute hemorrhage Electronically Signed: Mitchell Neves MD at 21:46 EDT , Service support , Emergency Department Course and Treatment: Patient did not take his evening dose of metformin or hydralazine prior to arrival. He was given both of these. He is resting comfortably. Treatment Plan: Patient will be discharged instructions to continue his medications at home as previously prescribed. We did discuss his renal insufficiency. He is instructed to push fluids. Follow-up his primary care physician in 3 to 5 days for another exam. Return to the emergency department for any worsening symptoms. Disposition: To home in improved and stable condition. Impression: 1. Hypertension. 2. Renal insufficiency. This note was generated with [employer] dictation software. It may contain incorrect words, spelling, and punctuation that were not noted in review of the chart prior to signing ED Disposition - Plan for ED Patient: Disposition: Home or Assisted Living Instructions: ED Hypertension Established Referrals: Vera Lucas MD [Primary Care Provider] - 3-5 Days
[2020-03-14 22:14] VITALS: BP 193/91; PULSE 80; RESP 16; O2SAT 99
[2020-03-14 22:19] VITALS: BP 175/86; PULSE 79; RESP 17; O2SAT 99
== END 2020-03-14 22:24 | disposition home or self-care (01) ==
LOC: ED 20:49
PROVIDERS: Emergency Provider Emergency Medicine; PCP Internal Medicine
DX: I10 Essential (primary) hypertension (principal); N28.9 Disorder of kidney and ureter, unspecified; E11.9 Type 2 diabetes mellitus without complications; R19.7 Diarrhea, unspecified; Z79.02 Long term (current) use of antithrombotics/antiplatelets; Z79.82 Long term (current) use of aspirin; Z79.4 Long term (current) use of insulin; Z79.899 Other long term (current) drug therapy; Z86.73 Personal history of transient ischemic attack (TIA), and cerebral infarction without residual deficits; Z95.0 Presence of cardiac pacemaker
CPT/HCPCS: 70450; 80048; 84484; 85025; 93005; 99285

== ENCOUNTER 2020-07-13 18:54 | Emergency (ER) | payer MEDICAID, SELFPAY ==
[2020-05-13 14:51] VITALS: BMI 23.8
[2020-07-13 18:57] VITALS: BP 102/64; PULSE 76; RESP 17; TEMP 36.6; O2SAT 97; BMI 24.7
--- NOTE | 2020-07-13 20:27 | RAD_ITS ---
STUDY: X-RAY - LEFT SHOULDER REASON FOR EXAM: Male, 64 years old. LEFT SHOULDER PAIN. NO INJURY. TECHNIQUE: 4 view(s) of the shoulder. COMPARISON: None. FINDINGS: Normal glenohumeral articulation. There are degenerative changes of the acromioclavicular joint. Normal acromion. Normal humeral head and visualized proximal humerus. The soft tissue structures are unremarkable. There is a pacemaker device projecting over the left hemithorax. RAD/Shoulder min 2 Views IMPRESSION: Degenerative changes of the acromioclavicular joint. Electronically Signed: Haydee Israel MD at 20:48 EST Tel , Service support ,
--- NOTE | 2020-07-13 21:19 | ED.VIS.GEN ---
History of Present Illness Chief Complaint: Upper Extremity Injury Informant: Patient Narrative: Patient is a 64-year-old male with a history of diabetes who presents to the emergency department for left shoulder pain. This started 1 week ago. He denies any trauma or falls that caused his symptoms. He states that moving the shoulder does make things worse. No associated chest pain or shortness of breath. The pain does radiate down to his bicep. He denies any issues with this shoulder before in the past. He is left-handed at baseline. Denies repetitive movements. No neck pain or headache. No back pain. No issues with other extremities. No arm swelling. He has been taking ibuprofen for his pain which has not been giving significant relief. Currently rates the pain as an 8 out of 10. Past Medical History - Allergies and Home Meds Allergies/Adverse Reactions: Allergies metformin [From Glucophage] Adverse Reaction (Verified 07/13/20 18:57) Diarrhea Primary Care Physician: Vera Lucas MD [Primary Care Provider] - Chon Abdalla MD [STAFF PHYSICIAN] - 1 Week if not improving Prior records reviewed: Yes Surgical History: pacemaker implantation, - - Carpal tunnel surgery Smoking Status: Former smoker - Family History Paternal Family History: Reports: Heart Disease Maternal Family History: Reports: No pertinent history Review of Systems All systems negative except as indicated General: Denies: Chills, Fever, Sweats Eyes: Denies: Visual changes - bilaterally, Diplopia ENT: Denies: Rhinorrhea, Sore throat Cardiovascular: Denies: Chest pain, Palpitations Respiratory: Denies: Dyspnea, Cough, Dyspnea on exertion Gastrointestinal: Denies: Abdominal pain, Nausea Musculoskeletal: Reports: Extremity Pain. Denies: Neck pain, Back pain, Swelling Skin: Denies: Rash, Wounds Neurological: Denies: Headache, Weakness, Numbness Physical Exam Vital Signs/Narrative: Vital Signs Temp Pulse Resp BP Pulse Ox 07/13/20 18:57 97.8 F 76 17 102/64 97 Inital Vital Signs reviewed: Yes General: Well nourished, Well developed, No Acute Distress Head: Normocephalic, Atraumatic Eyes: Perrl, EOMI ENT: Moist mucous membranes, No rhinorrhea Neck: Supple, Nontender Cardiovascular: Regular rate, Regular rhythm, No murmurs Respiratory: No distress, CTA bilaterally, Chest nontender Abdomen: Soft, Nontender, Nondistended, Normal bowel sounds Back: Nontender, Normal Inspection Extremities: No edema, - - Patient has difficulty moving the left shoulder up past 90 degrees. He has pain with flexion and extension of the arm. 2+ radial pulse. Sensation intact. Pain over AC joint.. Negative for: Calf Tenderness Skin: Normal color, No rash Neurological: Alert, Oriented x3, Cranial nerves II-XII grossly intact, Normal Strength, Normal Sensation Psychological: Normal affect, Normal Mood Diagnostic/Tx/Re-eval - Medical Decision Making Patient presents to the ED for nontraumatic left shoulder pain. I do not believe that this is referred pain from cardiac origin. He does have tenderness to palpation of the left shoulder and has difficulty moving the arm due to pain. X-ray obtained which did show degenerative changes of the acromioclavicular joint. Will recommend symptomatic treatment. With his history of diabetes and previous lab work showing elevated creatinine I did recommend he stop ibuprofen and NSAIDs. Recommend that he uses rice and Tylenol. Did make a orthopedic referral for possible joint injection and further evaluation. Patient understands and is agreeable this plan. Discharged home in stable condition. All questions were answered. ED Disposition - Plan for ED Patient: Disposition: Home or Assisted Living Diagnosis: Shoulder pain, Arthritis of left acromioclavicular joint Instructions: ED Shoulder Pain, Uncertain Cause Referrals: Vera Lucas MD [Primary Care Provider] - Chon Abdalla MD [STAFF PHYSICIAN] - 1 Week if not improving
[2020-07-13] MEDS: Acetaminophen 325 MG Tablet 650 MG PO (21:26)
[2020-07-13 21:30] VITALS: RESP 16
== END 2020-07-13 21:30 | disposition home or self-care (01) ==
PROVIDERS: Emergency Provider Emergency Medicine; PCP Internal Medicine
DX: M19.012 Primary osteoarthritis, left shoulder (principal); E11.9 Type 2 diabetes mellitus without complications; Z79.02 Long term (current) use of antithrombotics/antiplatelets; Z79.82 Long term (current) use of aspirin; Z79.4 Long term (current) use of insulin; Z79.899 Other long term (current) drug therapy; Z95.0 Presence of cardiac pacemaker; Z87.891 Personal history of nicotine dependence
CPT/HCPCS: 73030; 99284

== ENCOUNTER 2020-09-16 15:34 | Observation (INO) | payer MEDICAID, SELFPAY ==
[2020-09-16] VITALS (12 sets, daily range): BP systolic 160–181; BP diastolic 62–78; PULSE 68–74; RESP 14–24; TEMP 36.6–37; O2SAT 97–99; BMI 24.7; BMI 24.2
--- NOTE | 2020-09-16 16:04 | EKG12_ITS ---
Test Reason : NEURO Blood Pressure : / mmHG Vent. Rate : 071 BPM Atrial Rate : 071 BPM P-R Int : 196 ms QRS Dur : 096 ms QT Int : 414 ms P-R-T Axes : 008 -19 062 degrees QTc Int : 449 ms Normal sinus rhythm Voltage criteria for left ventricular hypertrophy Nonspecific T wave abnormality Abnormal ECG Confirmed by BRIELLE VILLA, KIMBERLY ([id number]), marketing editor ROCKY LO ([id number]) on 09/18/2020 8:43:24 AM Referred By: BEL Confirmed By:PELON HANNAH MD
--- NOTE | 2020-09-16 16:05 | CT_ITS ---
STUDY: CT BRAIN WITHOUT CONTRAST REASON FOR EXAM: Male, 64 years old. Numbness and tingling all over, worse on the right face and right arm. RADIATION DOSAGE (If Supplied By Facility): CTDIvol = ( 44.99 ) mGy, DLP = ( 829.85 ) mGycm TECHNIQUE: Transaxial CT imaging of the brain was performed without administration of intravenous contrast material. Individualized dose optimization techniques were used for this CT. COMPARISON: 03/14/2020. FINDINGS: Normal soft tissue structures. Normal calvarium. Normal size ventricles and extra-axial spaces for the patient''s age. There are areas of decreased attenuation within the white matter tracts of the supratentorial brain, consistent with microvascular disease changes. Remote lacunar infarcts in both basal ganglia. Normal thalami. Normal brainstem. Normal cerebellum. There is no intracranial hemorrhage. There are no findings of an acute ischemic infarction. Normal visualized paranasal sinuses. CT/Brain/Head without Contrast IMPRESSION: Chronic involutional changes without evidence of acute intracranial or calvarial abnormality. There is no interval change. Electronically Signed: Jj Rome DO at 17:08 EST Tel [phone], Service support ,
--- NOTE | 2020-09-16 16:11 | ED.VISSUMM ---
- ER Visit Summary Date of Service: 09/16/20 Chief Complaint: Numbness History of Present Illness: The patient is a [address] Aguilar. He reports that at 9:00 this morning he noticed numbness in his right hand and that it was off balance. He has perioral numbness that began approximately the same time. This is both sides of his lip and upper/lower lips. States that he began to feel funny and nauseated and was unable to eat lunch so he came to emerge department for evaluation. States this is similar to when he had a stroke in August 2019. He has no residual deficits. Patient complains of a sharp headache on the right that is 8 out of 10 severity that began this morning as well. He denies any injury. He does have a history of similar headaches. Physical Examination: Vitals: Stable. Afebrile. General: Well-nourished and well-developed. Head: Normocephalic atraumatic. Neck: Supple, no lymphadenopathy. No JVD. Nontender. Cardiovascular: Regular rate and rhythm. No murmurs. Respiratory: No respiratory distress. Clear to auscultation bilaterally. Abdominal: Soft, nontender, nondistended, normal bowel sounds. No guarding, rebound, or peritoneal signs. Back: Nontender. Extremities: Nontender, no edema. Skin: Normal color, no rash. Neurologic: Alert and oriented ?3. Decreased sensation to light touch in a V2/V3 distribution on the right. Cranial nerves are normal otherwise. Normal strength. Decreased sensation light touch right upper and lower extremities. Psych: Normal affect. Test Results: EKG is sinus at 71 with Q waves in leads III and aVF nonspecific ST changes. However, this is unchanged from March 14, 2020. Troponin is negative. Chem-7 shows a chloride of 109, BUN of 51, creatinine 2.1, glucose 224. Creatinine has been greater than 2.02 since February 2020. CBC shows an H&H 9.2 and 38.5. Last hemoglobin was 10.2 on March 14. Clinical Impression(s) from Imaging Studies Brain CT 09/16/20 16:05 IMPRESSION: Chronic involutional changes without evidence of acute intracranial or calvarial abnormality. There is no interval change. Electronically Signed: Jj Rome DO at 17:08 EST Tel [phone], Service support , Chest X-Ray 09/16/20 16:15 IMPRESSION: 1. No acute cardiopulmonary disease or interval change. Electronically Signed: Jj Rome DO at 16:41 EST Tel [phone], Service support , Emergency Department Course and Treatment: It has been greater than 6 hours since the onset of his symptoms. He is not a TPA candidate. His NIH scale at this time is 1. Unfortunately with his renal insufficiency is not a candidate for a CTA of the head and neck. Treatment Plan: Patient will be discussed the hospitalist admitted for further evaluation and treatment. Disposition: Admitted in stable condition. Impression: 1. Right-sided paresthesias. 2. Chronic renal insufficiency. 3. Anemia. This note was generated with [employer] dictation software. It may contain incorrect words, spelling, and punctuation that were not noted in review of the chart prior to signing ED Disposition - Plan for ED Patient: Referrals: Vera Lucas MD [Primary Care Provider] -
--- NOTE | 2020-09-16 16:15 | RAD_ITS ---
STUDY: X-RAY CHEST REASON FOR EXAM: Male, 64 years old. Numbness and tingling all over, worse on the right side of the face and right arm. Symptoms began at 1100 TECHNIQUE: Single AP portable view of the chest. COMPARISON: None. FINDINGS: The lungs are clear and expanded. There is no demonstrated pleural abnormality. Normal size heart. Stable cardiac pacemaker. Normal mediastinum and merna. Normal visualized pulmonary arteries. There is atherosclerotic calcification of the aortic arch with tortuosity. Normal visualized thoracic spine. There is degenerative osteoarthritis of the bilateral shoulders. There is no demonstrated abnormality of the visualized soft tissue structures of the upper abdomen. RAD/Chest 1 View IMPRESSION: 1. No acute cardiopulmonary disease or interval change. Electronically Signed: Jj Rome DO at 16:41 EST Tel [phone], Service support ,
[2020-09-16 16:31] LABS: Absolute Lymphocyte Count 1.56 X10^3/uL (0.83-4.51); Absolute Neutrophil Count 5.4 X10^3/uL (2.0-7.7); Basophil# 0.02 X10^3/uL; Basophil% 0.3 % (0-1); Eosinophils% 2.6 % (0-5); Hematocrit 28.5 % (40-54); Hemoglobin 9.2 g/dL (13.0-16.5); Lymphocyte # 1.56 X10^3/ul (4.0); Mean Corp Hgb Conc 32.3 g/dL (32-36); Mean Corpuscular Hgb 27.7 pg (27.0-32.0); Mean Corpuscular Volume 85.8 fL (80-94); Mean Platelet Vol. 9.6 fl (6.2-12.0); Monocyte# 0.52 X10^3/uL; Monocyte% 6.7 % (0-10); NRBC Flagged by Analyzer 0 % (0-5); Neutrophil # 5.39 X10^3/uL (2.7-7.7); Neutrophil % 69.1 % (47-70); Platelet Count 273 K/mm3 (150-450); RBC Distribution Width CV 13.2 % (11.6-14.6); RBC Distribution Width SD 40.7 fl (35.1-43.9); Red Blood Count 3.32 M/mm3 (4.6-6.2); White Blood Count 7.8 K/mm3 (4.4-11.0)
[2020-09-16 16:35] LABS: Anion Gap 5 (5-15); BUN 51 mg/dL (7-18); BUN/Creat Ratio 24.3 RATIO (10-20); Calcium,Total 8.6 mg/dL (8.5-10.1); Chloride 109 mmol/L (98-107); EST Glomerular Filtration Rate 34 mL/min (>60); Est Glom Filt Rate - Afr Amer 41 mL/min (>60); Estimated Creatinine Clearance 36.47 ml/min; Glucose 224 mg/dL (74-106); Potassium 4.5 mmol/L (3.5-5.1); Sodium Level 137 mmol/L (136-145)
--- NOTE | 2020-09-16 16:37 | ED.RN ---
PT'S SYMPTOMS OF SENSORY LOSS WAX AND WANE, AT TIMES EQUAL BILATERALLY, OTHER TIMES WORSE ON RIGHT SIDE. PT DIFFICULT TO ASSESS, WANTS TO WATCH TV INSTEAD, ANSWERS I CAN'T WHEN ASKED TO PERFORM NIHSS TASKS. NEEDS ENCOURAGEMENT AND REDIRECTION TO PERFORM TASKS.
[2020-09-16 16:50] LABS: International Normalized Ratio 0.9; Partial Thromboplast Time 23.4 Seconds (24.1-36.2)
[2020-09-16] MEDS: 0.9% Normal Saline 1,000 ML 100 ML IV ×2 (17:37→20:00)
--- NOTE | 2020-09-16 19:34 | HP.PCM_ITS ---
Problem List (1) Chest pain Status: Inactive (2) Complete heart block Status: Chronic (3) CVA (cerebral vascular accident) Status: Chronic Comment: lacunar infarct in the right thalamus measures 5mm (4) Diabetes mellitus Status: Chronic Qualifiers: Diabetes mellitus type: type 2 (5) Essential (primary) hypertension Status: Chronic (6) History of carpal tunnel release Status: Resolved (7) History of permanent cardiac pacemaker placement Status: Chronic (8) HLD (hyperlipidemia) Status: Chronic Qualifiers: Hyperlipidemia type: unspecified Qualified Code(s): E78.5 - Hyperlipidemia, unspecified (9) Paroxysmal supraventricular tachycardia Status: Chronic (10) Sick sinus syndrome Status: Chronic (11) Sinus pause Status: Chronic (12) TIA (transient ischemic attack) Status: Acute History of Present Illness Date of Admission: 09/16/20 Chief Complaint: Numbness on the right hand and around face The patient is a 64 year old M with multiple comorbidities as listed above came to ED with right hand numbness and incoordination of gait. He also feels perioral numbness that is started this morning. He denies any allergic reaction to any food. Patient is not very sharp in giving history and mumbles about the chronological order of symptoms. He also said he had mild blurry vision in both eyes that resolved without any blindness, hemianopia or quadrantanopia. He has nonspecific symptoms of feeling funny and nauseated but no vomiting. He also complains of headache in the right side of the ER physician. He has poor balance and incoordination of gait. Patient was admitted in August 2019 for TIA of slurred speech but MRI was negative. 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 At that time patient was transferred to [facility]. Twelve-lead EKG shows normal sinus rhythm with LVH at 71 bpm. QTC [address] head does not show acute change. Chest x- ray no acute cardiopulmonary disease or interval change. Basic labs shows increase in BUN/creatinine 51/2.1 but his BUN/creatinine is elevated since February 2020 about 2.02. Patient is not sure about his medications. Past Medical History Past Medical History (Chronic Problems): Chronic Problems (Last Reviewed 05/13/20 @ 14:44 by Consuelo MILNER, PA) Diabetes mellitus (Chronic) Paroxysmal supraventricular tachycardia (Chronic 06/2017) Complete heart block (Chronic 02/2019) History of permanent cardiac pacemaker placement (Chronic 03/05/19) Essential (primary) hypertension (Chronic) Sick sinus syndrome (Chronic) CVA (cerebral vascular accident) (Chronic 02/2019) lacunar infarct in the right thalamus measures 5mm Sinus pause (Chronic) HLD (hyperlipidemia) (Chronic) Medical History: Medical History (Last Reviewed 05/13/20 @ 14:44 by Consuelo MILNER, PA) Paroxysmal supraventricular tachycardia (Chronic) Onset Date: 06/2017 I47.1 Complete heart block (Chronic) Onset Date: 02/2019 I44.2 Essential (primary) hypertension (Chronic) I10 Sick sinus syndrome (Chronic) I49.5 CVA (cerebral vascular accident) (Chronic) Onset Date: 02/2019 I63.9 lacunar infarct in the right thalamus measures 5mm Sinus pause (Chronic) I45.5 HLD (hyperlipidemia) (Chronic) E78.5 Type II diabetes mellitus, uncontrolled E11.65 Tachyarrhythmia (Resolved) R00.0 Allergies metformin [From Glucophage] Adverse Reaction (Verified 09/16/20 15:37) Diarrhea Home Medications: Ambulatory Orders Medication Instructions Recorded Aspirin [Aspirin, Baby] 81 mg PO DAILY 03/04/19 Atorvastatin Calcium [Lipitor] 80 mg PO DAILY 03/04/19 Multivitamin [Daily Yousuf] 1 tab PO DAILY 03/04/19 Clopidogrel Bisulfate [Clopidogrel] 75 mg PO DAILY 04/25/19 Metoprolol Succinate [Toprol Xl] 100 mg PO DAILY 04/25/19 Insulin Glargine,Hum.rec.anlog 25 units SQ QHS 09/23/19 [Basaglar Kwikpen U-100] Sennosides [Senna] 8.6 mg PO BID 09/23/19 hydrochlorothiazide 12.5 mg capsule 25 mg PO DAILY #60 cap 11/06/19 amlodipine 5 mg tablet 10 mg PO DAILY tab 05/13/20 hydralazine 50 mg tablet 50 mg PO TID tab 05/13/20 metformin 500 mg tablet,extended 1,000 mg PO DAILY tab 05/13/20 release 24 hr Surgical History: Surgical History (Last Reviewed 05/13/20 @ 14:44 by Consuelo MILNER PA) History of carpal tunnel release (Resolved) Z98.890 History of permanent cardiac pacemaker placement (Chronic) Onset Date: 03/05/19 Z95.0 Surgical History: pacemaker implantation, - - Carpal tunnel surgery Psychiatric History: No pertinent psych hx Smoking Status: Former smoker - *Family History Paternal History Items: Heart Disease Maternal History Items: No pertinent history Review of Systems Constitutional: Denies: Chills, Fever, Weight Change HEENT: Denies: Head Aches, Sinus Congestion, Sinus Drainage Cardiovascular: Denies: Chest Pain, Palpitations Respiratory: Denies: Cough, Shortness of Breath, Shortness of breath at rest, Sputum production Gastrointestinal: Denies: Abdominal Pain, Nausea, Vomiting Genitourinary: Reports: - - Denies any recent decrease in urine output or frequency. Denies: Dysuria, Frequency, Retention, Urgency Musculoskeletal: Denies: Joint Pain, Joint Tenderness Skin: Denies: Rash, Wounds Neurological: Reports: Balance problems, Blurred vision, Incoordination, Numbness. Denies: Focal weakness, Tingling Psychiatric: Reports: Anxiety, Depression. Denies: Homicidal Ideations, Suicidal Ideations Hematologic/ Lymphatic: Denies: Easy Bruising, Easy Bleeding VTE Information - Inpt Only VTE Present on Admission: No VTE Mechan Device Prophylaxis: None VTE Pharm Prophylaxis ordered?: Yes Objective: Physical exam General: Alert, Oriented x3, Cooperative HEENT: Atraumatic, PERRLA, EOMI, Normocephalic. No obvious loss of field of vis ion on one-to-one visual confrontation test Oral: No Gingival or Mucosal Lesions/ Ulcerations Neck: Supple, No JVD, Negative Carotid Bruits Lungs: Air entry diminished in bilateral lung bases. No crepitation/rhonchi Cardiovascular: Regular rate, Regular Rhythm, Normal S1, Normal S2, No murmurs Abdomen: Bowel Sounds Present, Soft, Non Tender, Non-Distended : No renal angle tenderness. No suprapubic tenderness. Extremities: No edema, Capillary Refill Less than 3 Seconds Skin: No rashes, No breakdown Musculoskeletal: Generalized decreased in muscle bulk in both lower extremities. No Tenderness to Palpation of Joints or Extremities Neurological: Mild decrease in sensation in right upper extremity, NIH stroke scale 1. Cranial nerves II-XII grossly intact, Deep Tendon Reflexes 2+/4. Psych/Mental Status: Flat affect. - Physical Exam Vitals/I&O's: Vital Signs Temp Pulse Resp BP Pulse Ox 98.0 F 69 14 160/62 H 98 09/16/20 18:29 09/16/20 18:29 09/16/20 18:29 09/16/20 18:29 09/16/20 18:29 Oxygen Delivery Method Room Air Weight: 164 lb Body Mass Index (BMI) 24.2 Finger Stick Blood Glucose 339 Intake and Output for Last 24 Hours 09/14/20 09/15/20 09/16/20 23:59 23:59 23:59 Intake Total 110 / 110 Balance 110 / 110 Microbiology Past 72 Hours 09/16/20 16:15 Mucosa - Nose SARS-CoV-2 Antigen (Rapid) - Final Laboratory Results 09/16/20 15:40: WBC 7.8, RBC 3.32 L, Hgb 9.2 L, Hct 28.5 L, MCV 85.8, MCH 27.7, MCHC 32.3, RDW Std Deviation 40.7, RDW Coeff of Harry 13.2, Plt Count 273, MPV 9.6, Immature Gran % (Auto) 1.300 H, Neut % (Auto) 69.1, Lymph % (Auto) 20.0, [place] % (Auto) 6.7, Eos % (Auto) 2.6, Baso % (Auto) 0.3, Absolute Neuts (auto) 5.4, Absolute Lymphs (auto) 1.56, Nucleated RBC % 0 09/16/20 15:40: PT 12.0, INR 0.9, APTT 23.4 L 09/16/20 15:40: Sodium 137, Potassium 4.5, Chloride 109 H, Carbon Dioxide 23.0, Anion Gap 5, BUN 51 H, Creatinine 2.10 H, Estim Creat Clear Calc 36.47, Est GFR (MDRD) Af Amer 41 L, Est GFR (MDRD) Non-Af 34 L, BUN/Creatinine Ratio 24.3 H, Glucose 224 H, Calcium 8.6, Troponin I < 0.015 Current Medications Dextrose (Dextrose 50%-Water 25 Gm/50 Ml Disp.Syrin) 0 gm IV X1 PRN; Protocol PRN Reason: Hypoglycemia Glucagon (Glucagon 1 Mg/Ml Syringe) 1 mg IM .X1 PRN PRN Reason: Hypoglycemia Sodium Chloride () 1,000 mls @ 100 mls/hr IV .Q10H ZI Last Infusion: 09/16/20 18:43 Dose: 0 mls/hr Documented by: Influenza Virus Vaccine Quadrival (Influenza Vaccine (6mos+)/Pf 0.5 Ml Syringe) 0.5 ml IM .ONCE ONE Stop: 09/17/20 10:01 Insulin Human Lispro (Insulin Lispro 100 Unit/Ml Insuln.Pen) 0 unit SC ACHS ZI; Protocol Labetalol HCl (Labetalol (Prefilled) 20 Mg/4 Ml) 20 mg IV X1 PRN PRN Reason: BLOOD PRESSURE Sodium Chloride (0.9% Saline Lock 10 Ml Syringe) 10 - 40 ml IV UD PRN PRN Reason: SALINE FLUSH Assessment/Plan All Active Problems (Last Reviewed 05/13/20 @ 14:44 by Consuelo MILNER, PA) TIA (transient ischemic attack) (Acute) History of carpal tunnel release (Resolved) Tachyarrhythmia (Resolved) This 64-year-old gentleman admitted for numbness in right upper extremity, gait incoordination and further work-up for TIA. 1. Possible TIA: Patient is being admitted in PCU. On stroke protocol with NIH stroke scale monitoring, MRI brain, MRA head and neck, 2D echo, BP and glucose control. Blood pressure is within range of stroke guidelines. Glucose 224. A1c tomorrow a.m. 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 We will get medical records from [facility]. Aspirin, Plavix and high intensity statin. Patient has history of right thalamus lacunar infarct in February 2019. 2. Type 2 diabetes mellitus, poorly controlled: Accu-Chek before meals and at bedtime and cover with Humalog sliding scale. Glucose 224 in BMP. Lantus 10 units subcutaneous at bedtime daily. 3. CKD stage III most probably diabetic nephropathy: BUN/creatinine elevated since February 2020. IV fluid normal saline. Monitor intake and output, electrolytes and kidney function tomorrow a.m. 4. Hypertension, dyslipidemia: On amlodipine. We will keep the blood pressure in permissive hypertensive range. 5. History of complete heart block status post permanent pacemaker, sick sinus syndrome: [employer]. Patient had last 2D echo in February 2019. Left ventricular systolic function is normal. The estimated ejection fraction is 55 %. The left atrium is mildly enlarged. Bileaflet diffuse mitral valve thickening. Mild mitral valve prolapse, posterior leaflet Trivial mitral valve insufficiency. Mild tricuspid valve insufficiency. Aortic sclerosis, no stenosis. Mild (1+) aortic valve insufficiency. Trivial pulmonic valve insufficiency. Mildly dilated aortic root. Right ventricular systolic pressure estimated to be 30 mmHg. There is evidence of diastolic dysfunction. Bubble contrast study negative for right to left interatrial shunt. VTE prophylaxis: Lovenox 30 mils subcu daily. OBSV E&M: 80005 Initial observation care L3
[2020-09-16 21:29] LABS: AST(SGOT) 15 U/L (15-37); Alanine Aminotransfer ALT/SGPT 27 U/L (16-61); Albumin, Serum 3.1 g/dL (3.2-5.0); Alkaline Phosphatase 105 U/L (45-117); Bilirubin, Direct < 0.05 mg/dL (0.00-0.30); Globulin 3.1 g/dL (2.2-4.2); Protein, Total 6.2 g/dL (6.4-8.2)
[2020-09-16] MEDS: Senna Tablet 1 TABLET PO (22:10)
[2020-09-16 23:06] LABS: Bedside Glucose 134 mg/dL (70-110)
[2020-09-17] VITALS (12 sets, daily range): BP systolic 136–166; BP diastolic 65–78; PULSE 62–80; RESP 16–18; TEMP 36.7–36.9; O2SAT 95–98
[2020-09-17 05:05] LABS: Absolute Lymphocyte Count 1.63 X10^3/uL (0.83-4.51); Absolute Neutrophil Count 3.8 X10^3/uL (2.0-7.7); Basophil# 0.03 X10^3/uL; Basophil% 0.5 % (0-1); Eosinophil# 0.26 X10^3/uL; Eosinophils% 4.2 % (0-5); Hematocrit 26.6 % (40-54); Lymphocyte # 1.63 X10^3/ul (4.0); Lymphocyte % 26.1 % (19-41); Mean Corp Hgb Conc 30.1 g/dL (32-36); Mean Platelet Vol. 9.4 fl (6.2-12.0); Monocyte# 0.48 X10^3/uL; Monocyte% 7.7 % (0-10); NRBC Flagged by Analyzer 0 % (0-5); Neutrophil # 3.79 X10^3/uL (2.7-7.7); Neutrophil % 60.5 % (47-70); Platelet Count 234 K/mm3 (150-450); RBC Distribution Width CV 12.8 % (11.6-14.6); RBC Distribution Width SD 43.5 fl (35.1-43.9); Red Blood Count 2.86 M/mm3 (4.6-6.2); White Blood Count 6.3 K/mm3 (4.4-11.0)
[2020-09-17 05:43] LABS: Anion Gap 6 (5-15); BUN 46 mg/dL (7-18); BUN/Creat Ratio 30.1 RATIO (10-20); Calcium,Total 8.3 mg/dL (8.5-10.1); Chloride 114 mmol/L (98-107); Cholesterol 111 mg/dL (200); Creatinine, Serum 1.53 mg/dL (0.70-1.30); EST Glomerular Filtration Rate 49 mL/min (>60); Est Glom Filt Rate - Afr Amer 60 mL/min (>60); Estimated Creatinine Clearance 50.06 ml/min; Glucose 65 mg/dL (74-106); High Density Lipoprotein 27 mg/dL; Sodium Level 141 mmol/L (136-145); Thyroid Stim Hormone (TSH) 1.33 uIU/mL (0.358-3.74); Triglycerides 160 mg/dL; Very Low Density Lipoprotein 32 mg/dL (5-40)
--- NOTE | 2020-09-17 07:25 | PCS.PANDOC ---
PANDEMIC DOCUMENTATION INITIATED: Date: 09/16/20 Time: 1811
[2020-09-17 07:26] LABS: Bedside Glucose 64 mg/dL (70-110)
[2020-09-17 07:26] LABS: Bedside Glucose 100 mg/dL (70-110)
[2020-09-17 09:38] LABS: Hemoglobin A1c 5.9 % (3.8-5.6)
[2020-09-17] MEDS: Senna Tablet 1 TABLET PO (09:40)
[2020-09-17] MEDS: Aspirin 81 MG TAB.CHEW PO (09:40)
[2020-09-17] MEDS: Clopidogrel Bisulfate 75 MG Tablet PO (09:40)
[2020-09-17] MEDS: Metoprolol(XL)Succ 50 MG Tablet PO (09:40)
[2020-09-17] MEDS: Enoxaparin 40 MG/0.4 ML Syringe SC (09:55)
--- NOTE | 2020-09-17 10:00 | ECHOD_ITS ---
Reason For Study: TIA/CVA Procedure This was a 2D Doppler, Color Flow transthoracic echocardiogram. Exam performed portable in patient room. Left Ventricle Normal LV size. The estimated ejection fraction is 55 %. Diastolic function is indeterminate. No regional wall motion abnormalities noted. Right Ventricle Normal RV size. Normal systolic function. Atria The left atrium is moderately enlarged. Normal right atrium. No doppler evidence for ASD. Mitral Valve There is no mitral valve stenosis. No mitral valve insufficiency. Tricuspid Valve There is no tricuspid stenosis. Trivial tricuspid valve insufficiency. Aortic Valve Trisinus/trileaflet aortic valve. There is no aortic stenosis. Mild (1+) aortic valve insufficiency. Pulmonic Valve There is no pulmonic valvular stenosis. No pulmonic valve insufficiency. Great Vessels Mildly dilated aortic root. Pericardium/Pleural No pericardial effusion. MMode/2D Measurements & Calculations LVIDd: 5.4 cm IVSd: 1.1 cm Ao root diam: 3.9 cm LVIDs: 3.5 cm LVPWd: 1.2 cm FS: 35.5 % LAV(MOD-bp): 96.3 ml LA A4 area: 28.9 cm2 LA dimension(2D): 5.0 cm LAV(MOD-bp) Indexed: 50.7 ml/m2 LAV(MOD-sp2): 79.7 ml LAV(MOD-sp4): 105.6 ml RA A4 area: 26.7 cm2 Time Measurements MV dec time: 0.19 sec Doppler Measurements & Calculations MV E max nikhil: 64.1 cm/sec Lat Peak E' Nikhil: 10.3 cm/sec Med Peak E' Nikhil: 5.9 cm/sec MV A max nikhil: 79.9 cm/sec E/E' lat: 6.2 E/E' med: 10.8 MV E/A: 0.80 Ao V2 max: 118.0 cm/sec AI max nikhil: 437.7 cm/sec LV V1 max: 89.4 cm/sec Ao max P.6 mmHg AI max P.7 mmHg LV V1 max P.2 mmHg AI dec slope: 342.2 cm/sec2 AI P1/2t: 374.7 msec PA V2 max: 95.0 cm/sec TR max nikhil: 298.5 cm/sec TR max P.6 mmHg Interpretation Summary The estimated ejection fraction is 55 %. Diastolic function is indeterminate. The left atrium is moderately enlarged. Mild (1+) aortic valve insufficiency. Mildly dilated aortic root. Ordering Physician: Roberto Whitmore Referring Physician: Vera Lucas Performed By: Rissa Fry RDCS, RVT
[2020-09-17 11:35] LABS: Bedside Glucose 177 mg/dL (70-110)
--- NOTE | 2020-09-17 11:36 | DCINST_ITS ---
- Discharge Diagnoses Current Active Problems: Current Active and Chronic Problems (Last Reviewed 05/13/20 @ 14:44 by Consuelo MILNER, PA) Diabetes mellitus (Chronic) TIA (transient ischemic attack) (Acute) Paroxysmal supraventricular tachycardia (Chronic 06/2017) Complete heart block (Chronic 02/2019) History of permanent cardiac pacemaker placement (Chronic 03/05/19) Essential (primary) hypertension (Chronic) Sick sinus syndrome (Chronic) CVA (cerebral vascular accident) (Chronic 02/2019) lacunar infarct in the right thalamus measures 5mm Sinus pause (Chronic) HLD (hyperlipidemia) (Chronic) You will use the following diet at home:: No restrictions Discharge Activity: Return to Normal Activity Call your doctor if you observe: Numbness or Tingling, Shortness of breath, Dizziness, Fainting spells Allergies/Adverse Reactions: Allergies metformin [From Glucophage] Adverse Reaction (Verified 09/16/20 15:37) Diarrhea Medications to take at Discharge Aspirin [Aspirin, Baby] 81 mg PO DAILY 03/04/19 Atorvastatin Calcium [Lipitor] 80 mg PO DAILY 03/04/19 Multivitamin [Daily Yousuf] 1 tab PO DAILY 03/04/19 Clopidogrel Bisulfate [Clopidogrel] 75 mg PO DAILY 04/25/19 Metoprolol Succinate [Toprol Xl] 100 mg PO DAILY 04/25/19 Insulin Glargine,Hum.rec.anlog [Basaglar Kwikpen U-100] 25 units SQ QHS 09/23/19 Sennosides [Senna] 8.6 mg PO BID 09/23/19 hydrochlorothiazide 12.5 mg capsule 25 mg PO DAILY #60 cap 11/06/19 amlodipine 5 mg tablet 10 mg PO DAILY tab 05/13/20 hydralazine 50 mg tablet 50 mg PO TID tab 05/13/20 metformin 500 mg tablet,extended release 24 hr 1,000 mg PO DAILY tab 05/13/20 Primary Care Physician: Vera Lucas MD [Primary Care Provider] - Please follow up with your Primary Care Physician in: 1 Week Test Results: Test results from this visit will be discussed in further detail at your follow- up appointment, if applicable. Please Follow Up With: Primary Neurologist When: 1-2 Weeks Proposed Discharge Date: 09/17/20
[2020-09-17] MEDS: Insulin Lispro 100 UNIT/ML INSULN.PEN SC (12:37)
--- NOTE | 2020-09-17 13:00 | PHA.DC.MR ---
Pharmacy Service has performed discharge medication reconciliation for this patient. No new medications at time of discharge. Medications reviewed are from previously reported home medications. Home Medications Aspirin [Aspirin, Baby] 81 mg PO DAILY 03/04/19 Atorvastatin Calcium [Lipitor] 80 mg PO DAILY 03/04/19 Multivitamin [Daily Yousuf] 1 tab PO DAILY 03/04/19 Clopidogrel Bisulfate [Clopidogrel] 75 mg PO DAILY 04/25/19 Metoprolol Succinate [Toprol Xl] 100 mg PO DAILY 04/25/19 Insulin Glargine,Hum.rec.anlog [Basaglar Kwikpen U-100] 25 units SQ QHS 09/23/19 Sennosides [Senna] 8.6 mg PO BID 09/23/19 hydrochlorothiazide 12.5 mg capsule 25 mg PO DAILY #60 cap 11/06/19 amlodipine 5 mg tablet 10 mg PO DAILY tab 05/13/20 hydralazine 50 mg tablet 50 mg PO TID tab 05/13/20 metformin 500 mg tablet,extended release 24 hr 1,000 mg PO DAILY tab 05/13/20 The patient's discharge medication list was reviewed for discrepancies and discrepancies were resolved.
--- NOTE | 2020-09-17 13:51 | CASEMGMT ---
SW completed a PHQ 9 with patient as he may have had a TIA. He scored a 5 which indicates mild depression. Patient denies being depressed. He said he does sleep a lot, but he does not feel it is because he is depressed. He denies any need for counseling resources. He said he feels good. Stephany THAYER MSW
--- NOTE | 2020-09-17 14:00 | MRI_ITS ---
STUDY: MRA OF THE HEAD WITHOUT CONTRAST REASON FOR EXAM: Male, 64 years old. tia, rt hand numbness, off balance, h/a TECHNIQUE: 3-D qcgb-se-ucexox (TOF) imaging was performed with MIPs. The study was performed unenhanced. COMPARISON: None. FINDINGS: Normal bilateral petrous carotid arteries. Normal right cavernous carotid artery with a normal supraclinoid bifurcation. Normal left cavernous carotid artery with a normal supraclinoid bifurcation. Normal right A1 segments of the anterior cerebral artery. Normal left A1 segments of the anterior cerebral artery. Normal intact anterior communicating artery (ACOM). Normal bilateral A2 segments of the anterior cerebral arteries. Normal right M1 and M2 segments of the middle cerebral arteries, with a normal M1 bifurcation. Normal left M1 and M2 segments of the middle cerebral arteries, with a normal M1 bifurcation. Normal right posterior communicating artery (PCOM). Normal left posterior communicating artery (PCOM). Normal bilateral vertebral arteries. Normal basilar artery with a normal basilar bifurcation. The visualized bilateral superior cerebellar (SCA) arteries are normal. Normal bilateral P1, P2 and visualized P3 segments of the posterior cerebral arteries. There is no demonstrated aneurysm of the [place] of [place]. There is no major vessel occlusion or hemodynamically significant stenosis. There is no demonstrated abnormality of the visualized brain. MRI/MRA Head ONLY without Contrast IMPRESSION: Normal MRA of the head Electronically Signed: Kenna Garner MD at 16:20 EST Tel , Service support ,
--- NOTE | 2020-09-17 14:00 | MRI_ITS ---
STUDY: MRI BRAIN WITHOUT CONTRAST REASON FOR EXAM: Male, 64 years old. rt hand numbness, off balance, h/a TECHNIQUE: Standardized multiplanar fat and water weighted pulse sequences were obtained. COMPARISON: None. FINDINGS: Normal size of the ventricles and extra-axial spaces for the patient''s age. There are a limited number of small white matter hyperintensities, distributed throughout the deep white matter tracts of the cerebral hemispheres, consistent with mild chronic white matter ischemic changes. There is an old infarction in the right basal ganglia. Normal thalami. There is no extra-axial fluid accumulation. Normal flow voids within the major intracranial circulation suggesting patency by spin echo criteria. Normal sella turcica, pituitary gland, infundibular stalk, optic chiasm and hypothalamus. Normal tectal plate and pineal gland. Normal midbrain, [place] and medulla. Normal cerebellum. Normal basal cisterns. Normal bilateral temporal bones. Normal bilateral internal auditory canals. No demonstrated orbital abnormality, within the constraints of a routine brain study. Normal visualized paranasal sinuses. Normal calvarium and skull base. Normal visualized soft tissue structures. Normal visualized upper cervical spine. MRI/Brain without Contrast IMPRESSION: Involutional changes of the brain, as described above. There is an old infarction in the right basal ganglia. Electronically Signed: Kenna Garner MD at 16:22 EST Tel , Service support ,
--- NOTE | 2020-09-17 14:00 | MRI_ITS ---
STUDY: MRA NECK WITHOUT CONTRAST REASON FOR EXAM: Male, 64 years old. rt hand numbness, off balance, h/a TECHNIQUE: Source images were obtained, MIPs were performed. The study was performed unenhanced. COMPARISON: None. FINDINGS: RIGHT CAROTID ARTERIES: Normal right common carotid artery (CCA). Normal right common carotid bulb. Normal origin of the right internal carotid (ICA) artery without a hemodynamically significant stenosis. Normal visualized cervical portion of the right internal carotid artery. Normal origin of the right external carotid artery (ECA). LEFT CAROTID ARTERIES: Normal left common carotid artery (CCA). Normal left common carotid bulb. Normal origin of the left internal carotid (ICA) artery without a hemodynamically significant stenosis. Normal visualized cervical portion of the left internal carotid artery. Normal origin of the left external carotid artery (ECA). VERTEBRAL ARTERIES: Normal antegrade flow within the bilateral vertebral artery without a hemodynamically significant stenosis. MRI/MRA Neck without Contrast IMPRESSION: Normal bilateral cervical carotid and vertebral arteries. Electronically Signed: Kenna Garner MD at 16:20 EST Tel , Service support ,
--- NOTE | 2020-09-17 14:38 | PN_ITS ---
Patient Problems: Active and Suspected Problems (Last Reviewed 05/13/20 @ 14:44 by Consuelo Ortiz PA, PA) TIA (transient ischemic attack) (Acute) Subjective: Patient seen and examined. Denies further numbness, tingling. Denies unilateral weakness or focal deficits. Awaiting MRI. - Physical Exam Vitals/I&O's: Vital Signs Temp Pulse Resp BP Pulse Ox 98.0 F 74 18 166/65 H 96 09/17/20 13:40 09/17/20 13:40 09/17/20 13:40 09/17/20 13:40 09/17/20 13:40 Oxygen Delivery Method Room Air Weight: 164 lb Body Mass Index (BMI) 24.2 Finger Stick Blood Glucose 339 Intake and Output for Last 24 Hours 09/15/20 09/16/20 09/17/20 23:59 23:59 23:59 Intake Total 170 / 170 1480 / 1480 Output Total 0 / 0 725 / 725 Balance 170 / 170 755 / 755 General: Alert, Oriented x3, Cooperative HEENT: Atraumatic, PERRLA, EOMI, Normocephalic Neck: Supple, No JVD, Negative Carotid Bruits Lungs: Clear to auscultation, Normal air movement Cardiovascular: Regular rate, No murmurs Abdomen: Bowel Sounds Present, Soft, Non Tender, Non-Distended Extremities: No clubbing, No cyanosis, No edema, Capillary Refill Less than 3 Seconds Skin: No rashes, No breakdown Musculoskeletal: No Tenderness to Palpation of Joints or Extremities Neurological: Cranial nerves II-XII grossly intact, Neuro grossly intact Psych/Mental Status: Normal Affect, Appropriate Microbiology Past 72 Hours 09/16/20 16:15 Mucosa - Nose SARS-CoV-2 Antigen (Rapid) - Final Laboratory Results 09/16/20 15:40: WBC 7.8, RBC 3.32 L, Hgb 9.2 L, Hct 28.5 L, MCV 85.8, MCH 27.7, MCHC 32.3, RDW Std Deviation 40.7, RDW Coeff of Harry 13.2, Plt Count 273, MPV 9.6, Immature Gran % (Auto) 1.300 H, Neut % (Auto) 69.1, Lymph % (Auto) 20.0, [place] % (Auto) 6.7, Eos % (Auto) 2.6, Baso % (Auto) 0.3, Absolute Neuts (auto) 5.4, Absolute Lymphs (auto) 1.56, Nucleated RBC % 0 09/16/20 15:40: PT 12.0, INR 0.9, APTT 23.4 L 09/16/20 15:40: Sodium 137, Potassium 4.5, Chloride 109 H, Carbon Dioxide 23.0, Anion Gap 5, BUN 51 H, Creatinine 2.10 H, Estim Creat Clear Calc 36.47, Est GFR (MDRD) Af Amer 41 L, Est GFR (MDRD) Non-Af 34 L, BUN/Creatinine Ratio 24.3 H, Glucose 224 H, Calcium 8.6, Troponin I < 0.015 09/16/20 20:22: Total Bilirubin 0.20, Direct Bilirubin < 0.05, AST 15, ALT 27, Alkaline Phosphatase 105, Total Protein 6.2 L, Albumin 3.1 L, Globulin 3.1 09/16/20 20:22: Troponin I < 0.015 09/16/20 22:05: POC Glucose 134 H 09/17/20 04:52: Hemoglobin A1c 5.9 H 09/17/20 04:52: WBC 6.3, RBC 2.86 L, Hgb 8.0 L, Hct 26.6 L, MCV 93.0 D, MCH 28.0, MCHC 30.1 L D, RDW Std Deviation 43.5, RDW Coeff of Harry 12.8, Plt Count 234, MPV 9.4, Immature Gran % (Auto) 1.000 H, Neut % (Auto) 60.5, Lymph % (Auto) 26.1, [place] % (Auto) 7.7, Eos % (Auto) 4.2, Baso % (Auto) 0.5, Absolute Neuts (auto) 3.8, Absolute Lymphs (auto) 1.63, Nucleated RBC % 0 09/17/20 04:52: Sodium 141, Potassium 4.0, Chloride 114 H, Carbon Dioxide 21.0, Anion Gap 6, BUN 46 H, Creatinine 1.53 H, Estim Creat Clear Calc 50.06, Est GFR (MDRD) Af Amer 60, Est GFR (MDRD) Non-Af 49 L, BUN/Creatinine Ratio 30.1 H, Glucose 65 L, Calcium 8.3 L, Triglycerides 160, Cholesterol 111, LDL Cholesterol 52, VLDL Cholesterol 32, HDL Cholesterol 27 L, TSH 1.33 09/17/20 06:46: POC Glucose 64 L 09/17/20 07:20: POC Glucose 100 09/17/20 11:28: POC Glucose 177 H Current Medications Aspirin (Aspirin 81 Mg Tab.Chew) 81 mg PO DAILY@0800 [facility] Last Admin: 09/17/20 09:40 Dose: 81 mg Documented by: Atorvastatin Calcium (Atorvastatin Calcium 80 Mg Tablet) 80 mg PO QHS [facility] Clopidogrel Bisulfate (Clopidogrel Bisulfate 75 Mg Tablet) 75 mg PO DAILY [facility] Last Admin: 09/17/20 09:40 Dose: 75 mg Documented by: Dextrose (Dextrose 50%-Water 25 Gm/50 Ml Disp.Syrin) 0 gm IV X1 PRN; Protocol PRN Reason: Hypoglycemia Enoxaparin Sodium (Enoxaparin 40 Mg/0.4 Ml Syringe) 40 mg SC DAILY [facility] Last Admin: 09/17/20 09:55 Dose: 40 mg Documented by: Glucagon (Glucagon 1 Mg/Ml Syringe) 1 mg IM .X1 PRN PRN Reason: Hypoglycemia Hydralazine HCl (Hydralazine 20 Mg/Ml Vial) 5 mg IV Q30M PRN PRN Reason: to maintain BP goals Insulin Glargine (Insulin Glargine 100 Units/Ml Pen) 10 units SC QHS [facility] Last Admin: 09/16/20 22:10 Dose: 10 units Documented by: Insulin Human Lispro (Insulin Lispro 100 Unit/Ml Insuln.Pen) [facility]; Protocol Last Admin: 09/17/20 12:37 Dose: 1 u Documented by: Labetalol HCl (Labetalol (Prefilled) 20 Mg/4 Ml) 10 - 20 mg IV Q10M PRN PRN PRN Reason: to Maintain BP Goals Metoprolol Succinate (Metoprolol(Xl)Succ 50 Mg Tablet) 50 mg PO DAILY [facility] Last Admin: 09/17/20 09:40 Dose: 50 mg Documented by: Senna (Senna Tablet) 1 tablet PO BID [facility] Last Admin: 09/17/20 09:40 Dose: 1 tablet Documented by: Sodium Chloride (0.9% Saline Lock 10 Ml Syringe) 10 - 40 ml IV UD PRN PRN Reason: SALINE FLUSH Medical Necessity - Tobacco Use Smoking Status: Former smoker Assessment/Plan All Active Problems (Last Reviewed 05/13/20 @ 14:44 by Consuelo Ortiz PA, PA) TIA (transient ischemic attack) (Acute) History of carpal tunnel release (Resolved) Tachyarrhythmia (Resolved) 1. TIA, history of TIA and right lacunar infarct-on aspirin, statin, Plavix at baseline. Brain CT with chronic changes. MRI of brain, MRA of head and neck pending. Echocardiogram demonstrates an EF of 55%, mild aortic valve insufficiency. Further disposition pending MRI results. 2. Moderate basilar artery stenosis-angio 08/22/2019 at [facility] showed moderate plaque stenosis basilar artery. Medical management. Continue outpatient follow-up. 3. History of sick sinus syndrome-status post pacemaker placement. 4. Type 2 diabetes [id number] with sliding scale insulin. Hold oral regimen. 5. Hypertension-stable, continue home amlodipine, hydralazine, HCTZ, metoprolol. 6. Hyperlipidemia-continue statin. DVT prophylaxis-Lovenox subcu This patient was seen by FRANCESCO Bashir under the supervision of Dr. Saravia.
--- NOTE | 2020-09-17 14:58 | CASEMGMT ---
Therapy is recommending OP PT/OT/ST at this time. Pt is out of room for MRI/MRA's at this time. Order for OP therapy faxed to [facility] at this time and left with Laurie GOODEN for pt at discharge. Niall GOODEN CM
--- NOTE | 2020-09-17 15:52 | NURSING ---
mri pacemaker tech present, afshin, back on floor unit monitor.
--- NOTE | 2020-09-17 16:31 | DS.PCM_ITS ---
Discharge Date and Diagnosis - Problem List Patient Problems: Active and Suspected Problems (Last Reviewed 05/13/20 @ 14:44 by Consuelo MILNER PA) TIA (transient ischemic attack) (Acute) Date of Admission: 09/16/20 Date of Discharge: 09/17/20 - Primary Discharge Diagnosis Acute Problems: Active Problems (Last Reviewed 05/13/20 @ 14:44 by Consuelo MILNER PA) 1. TIA, history of TIA and right lacunar infarct 2. Moderate basilar artery stenosis-angio 08/22/2019 at [facility] showed moderate plaque stenosis basilar artery. 3. History of sick sinus syndrome-status post pacemaker placement. 4. Type 2 diabetes mellitus 5. Hypertension 6. Hyperlipidemia - Secondary Discharge Diagnosis Chronic Problems: Chronic Problems (Last Reviewed 05/13/20 @ 14:44 by Consuelo MILNER, PA) Diabetes mellitus (Chronic) Paroxysmal supraventricular tachycardia (Chronic 06/2017) Complete heart block (Chronic 02/2019) History of permanent cardiac pacemaker placement (Chronic 03/05/19) Essential (primary) hypertension (Chronic) Sick sinus syndrome (Chronic) CVA (cerebral vascular accident) (Chronic 02/2019) lacunar infarct in the right thalamus measures 5mm Sinus pause (Chronic) HLD (hyperlipidemia) (Chronic) Hospital Course and Treatment Imaging Results: Diagnostic Data Brain CT 09/16/20 16:05 IMPRESSION: Chronic involutional changes without evidence of acute intracranial or calvarial abnormality. There is no interval change. Electronically Signed: Jj Rome DO at 17:08 EST Tel [phone], Service support , Chest X-Ray 09/16/20 16:15 IMPRESSION: 1. No acute cardiopulmonary disease or interval change. Electronically Signed: Jj Rome DO at 16:41 EST Tel [phone], Service support , Brain MRI 09/17/20 14:00 IMPRESSION: Involutional changes of the brain, as described above. There is an old infarction in the right basal ganglia. Electronically Signed: Kenna Garner MD at 16:22 EST Tel , Service support , Head MRA 09/17/20 14:00 IMPRESSION: Normal MRA of the head Electronically Signed: Kenna Garner MD at 16:20 EST Tel , Service support , Neck MRA 09/17/20 14:00 IMPRESSION: Normal bilateral cervical carotid and vertebral arteries. Electronically Signed: Kenna Garner MD at 16:20 EST Tel , Service support , Operations: None Procedures: 2-D Echocardiogram Summary of Care Provided: The patient is a 64 year old M admitted 09/16/20 due to numbness of the right hand and face which has since resolved. 1. TIA, history of TIA and right lacunar infarct-on aspirin, high-dose statin, Plavix at baseline. Brain CT with chronic changes. Echocardiogram demonstrates an EF of 55%, mild aortic valve insufficiency. MRI of brain shows old right basal ganglia infarct. MRA of neck normal. MRI of head unremarkable. Continue current medication regimen. Recommend outpatient 30-day event monitor which can be arranged by primary care provider or neurology. Follow-up with PCP in 1 week. Follow-up with primary neurologist in 1 to 2 weeks. 2. Moderate basilar artery stenosis-angio 08/22/2019 at [facility] showed moderate plaque stenosis basilar artery. Medical management. Continue outpatient follow-up. 3. History of sick sinus syndrome-status post pacemaker placement. 4. Type 2 diabetes mellitus-continue home regimen. 5. Hypertension-stable, continue home amlodipine, hydralazine, HCTZ, metoprolol. 6. Hyperlipidemia-continue statin. General: Alert, Oriented x3, Cooperative HEENT: Atraumatic, PERRLA, EOMI, Normocephalic Neck: Supple, No JVD, Negative Carotid Bruits Lungs: Clear to auscultation, Normal air movement Cardiovascular: Regular rate, No murmurs Abdomen: Bowel Sounds Present, Soft, Non Tender, Non-Distended Extremities: No clubbing, No cyanosis, No edema, Capillary Refill Less than 3 Seconds Skin: No rashes, No breakdown Musculoskeletal: No Tenderness to Palpation of Joints or Extremities Neurological: Cranial nerves II-XII grossly intact, Neuro grossly intact Psych/Mental Status: Normal Affect, Appropriate Patient seen and examined prior to discharge. Physical assessment as noted above. Patient is stable for discharge with follow up recommendations as noted above. This patient was seen by FRANCESCO Bashir under the supervision of Dr. Saravia. Patient Problems: Active and Suspected Problems (Last Reviewed 05/13/20 @ 14:44 by Consuelo MILNER, PA) TIA (transient ischemic attack) (Acute) - Physical Exam Vitals/I&O's: Vital Signs Temp Pulse Resp BP Pulse Ox 98.0 F 74 16 161/73 H 95 09/17/20 13:40 09/17/20 16:00 09/17/20 15:32 09/17/20 15:32 09/17/20 15:32 Oxygen Delivery Method Room Air Weight: 163 lb 15.995 oz Body Mass Index (BMI) 24.2 Finger Stick Blood Glucose 339 Intake and Output for Last 24 Hours 09/15/20 09/16/20 09/17/20 23:59 23:59 23:59 Intake Total 170 / 170 1480 / 1480 Output Total 0 / 0 725 / 725 Balance 170 / 170 755 / 755 Microbiology Past 72 Hours 09/16/20 16:15 Mucosa - Nose SARS-CoV-2 Antigen (Rapid) - Final Laboratory Results 09/16/20 15:40: WBC 7.8, RBC 3.32 L, Hgb 9.2 L, Hct 28.5 L, MCV 85.8, MCH 27.7, MCHC 32.3, RDW Std Deviation 40.7, RDW Coeff of Harry 13.2, Plt Count 273, MPV 9.6, Immature Gran % (Auto) 1.300 H, Neut % (Auto) 69.1, Lymph % (Auto) 20.0, [place] % (Auto) 6.7, Eos % (Auto) 2.6, Baso % (Auto) 0.3, Absolute Neuts (auto) 5.4, Absolute Lymphs (auto) 1.56, Nucleated RBC % 0 09/16/20 15:40: PT 12.0, INR 0.9, APTT 23.4 L 09/16/20 15:40: Sodium 137, Potassium 4.5, Chloride 109 H, Carbon Dioxide 23.0, Anion Gap 5, BUN 51 H, Creatinine 2.10 H, Estim Creat Clear Calc 36.47, Est GFR (MDRD) Af Amer 41 L, Est GFR (MDRD) Non-Af 34 L, BUN/Creatinine Ratio 24.3 H, Glucose 224 H, Calcium 8.6, Troponin I < 0.015 09/16/20 20:22: Total Bilirubin 0.20, Direct Bilirubin < 0.05, AST 15, ALT 27, Alkaline Phosphatase 105, Total Protein 6.2 L, Albumin 3.1 L, Globulin 3.1 09/16/20 20:22: Troponin I < 0.015 09/16/20 22:05: POC Glucose 134 H 09/17/20 04:52: Hemoglobin A1c 5.9 H 09/17/20 04:52: WBC 6.3, RBC 2.86 L, Hgb 8.0 L, Hct 26.6 L, MCV 93.0 D, MCH 28.0, MCHC 30.1 L D, RDW Std Deviation 43.5, RDW Coeff of Harry 12.8, Plt Count 234, MPV 9.4, Immature Gran % (Auto) 1.000 H, Neut % (Auto) 60.5, Lymph % (Auto) 26.1, [place] % (Auto) 7.7, Eos % (Auto) 4.2, Baso % (Auto) 0.5, Absolute Neuts (auto) 3.8, Absolute Lymphs (auto) 1.63, Nucleated RBC % 0 09/17/20 04:52: Sodium 141, Potassium 4.0, Chloride 114 H, Carbon Dioxide 21.0, Anion Gap 6, BUN 46 H, Creatinine 1.53 H, Estim Creat Clear Calc 50.06, Est GFR (MDRD) Af Amer 60, Est GFR (MDRD) Non-Af 49 L, BUN/Creatinine Ratio 30.1 H, Glucose 65 L, Calcium 8.3 L, Triglycerides 160, Cholesterol 111, LDL Cholesterol 52, VLDL Cholesterol 32, HDL Cholesterol 27 L, TSH 1.33 09/17/20 06:46: POC Glucose 64 L 09/17/20 07:20: POC Glucose 100 09/17/20 11:28: POC Glucose 177 H Current Medications Aspirin (Aspirin 81 Mg Tab.Chew) 81 mg PO DAILY@0800 [facility] Last Admin: 09/17/20 09:40 Dose: 81 mg Documented by: Atorvastatin Calcium (Atorvastatin Calcium 80 Mg Tablet) 80 mg PO QHS [facility] Clopidogrel Bisulfate (Clopidogrel Bisulfate 75 Mg Tablet) 75 mg PO DAILY [facility] Last Admin: 09/17/20 09:40 Dose: 75 mg Documented by: Dextrose (Dextrose 50%-Water 25 Gm/50 Ml Disp.Syrin) 0 gm IV X1 PRN; Protocol PRN Reason: Hypoglycemia Enoxaparin Sodium (Enoxaparin 40 Mg/0.4 Ml Syringe) 40 mg SC DAILY [facility] Last Admin: 09/17/20 09:55 Dose: 40 mg Documented by: Glucagon (Glucagon 1 Mg/Ml Syringe) 1 mg IM .X1 PRN PRN Reason: Hypoglycemia Hydralazine HCl (Hydralazine 20 Mg/Ml Vial) 5 mg IV Q30M PRN PRN Reason: to maintain BP goals Insulin Glargine (Insulin Glargine 100 Units/Ml Pen) 10 units SC QHS [facility] Last Admin: 09/16/20 22:10 Dose: 10 units Documented by: Insulin Human Lispro (Insulin Lispro 100 Unit/Ml Insuln.Pen) [facility]; Protocol Last Admin: 09/17/20 12:37 Dose: 1 u Documented by: Labetalol HCl (Labetalol (Prefilled) 20 Mg/4 Ml) 10 - 20 mg IV Q10M PRN PRN PRN Reason: to Maintain BP Goals Metoprolol Succinate (Metoprolol(Xl)Succ 50 Mg Tablet) 50 mg PO DAILY [facility] Last Admin: 09/17/20 09:40 Dose: 50 mg Documented by: Senna (Senna Tablet) 1 tablet PO BID [facility] Last Admin: 09/17/20 09:40 Dose: 1 tablet Documented by: Sodium Chloride (0.9% Saline Lock 10 Ml Syringe) 10 - 40 ml IV UD PRN PRN Reason: SALINE FLUSH Discharge Diet: No Restrictions Discharge Activity: Return to Normal Activity Call your doctor if you observe: Numbness or Tingling, Shortness of breath, Dizziness, Fainting spells Home Medications: Medications to take at Discharge Aspirin [Aspirin, Baby] 81 mg PO DAILY 03/04/19 Atorvastatin Calcium [Lipitor] 80 mg PO DAILY 03/04/19 Multivitamin [Daily Yousuf] 1 tab PO DAILY 03/04/19 Clopidogrel Bisulfate [Clopidogrel] 75 mg PO DAILY 04/25/19 Metoprolol Succinate [Toprol Xl] 100 mg PO DAILY 04/25/19 Insulin Glargine,Hum.rec.anlog [Basaglar Kwikpen U-100] 25 units SQ QHS 09/23/19 Sennosides [Senna] 8.6 mg PO BID 09/23/19 hydrochlorothiazide 12.5 mg capsule 25 mg PO DAILY #60 cap 11/06/19 amlodipine 5 mg tablet 10 mg PO DAILY tab 05/13/20 hydralazine 50 mg tablet 50 mg PO TID tab 05/13/20 metformin 500 mg tablet,extended release 24 hr 1,000 mg PO DAILY tab 05/13/20 Primary Care Physician: Vera Lucas MD [Primary Care Provider] - Please follow up with your Primary Care Physician in: 1 Week Please Follow Up With: Primary Neurologist When: 1-2 Weeks Disposition: Home Minutes spent on discharge:: 35 Patient Condition:: Stable Medical Necessity - Tobacco Use Smoking Status: Former smoker Meaningful Use Info Meaningful Use Diagnoses (Choose all that apply): None applicable
--- NOTE | 2020-09-17 17:02 | NURSING ---
Faxed prescription to [facility] for PT,OT, and SP therapy.
[2020-09-21 07:53] LABS: Bedside Glucose 229 mg/dL (70-110)
== END 2020-09-17 11:37 | disposition home or self-care (01) ==
LOC: ED 16:29 → PCU 20:00
PROVIDERS: Admitting Provider Internal Medicine; Emergency Provider Emergency Medicine; PCP Internal Medicine; Visit Provider Family Medicine
DX: G45.9 Transient cerebral ischemic attack, unspecified (principal); E11.22 Type 2 diabetes mellitus with diabetic chronic kidney disease; I12.9 Hypertensive chronic kidney disease with stage 1 through stage 4 chronic kidney disease, or unspecified chronic kidney disease; E78.5 Hyperlipidemia, unspecified; I47.1 Supraventricular tachycardia; N18.30 Chronic kidney disease, stage 3 unspecified; Z95.0 Presence of cardiac pacemaker; Z86.73 Personal history of transient ischemic attack (TIA), and cerebral infarction without residual deficits; Z79.899 Other long term (current) drug therapy; Z79.82 Long term (current) use of aspirin; Z79.4 Long term (current) use of insulin; Z79.02 Long term (current) use of antithrombotics/antiplatelets; Z87.891 Personal history of nicotine dependence
CPT/HCPCS: 36415; 70450; 70544; 70547; 70551; 71045; 80048; 80061; 80076; 82962; 83036; 84443; 84484; 85025; 85610; 85730; 87426; 92610; 93005; 93271; 93306; 96360; 96361; 96372; 97162; 97166; 99218; 99251; 99285; J7030; 90686; A4216; G0378; G0463

== ENCOUNTER 2020-10-21 12:30 | Outpatient (RCR) | payer MEDICAID, SELFPAY ==
[2020-09-16 18:21] VITALS: BMI 24.2
== END 2020-10-21 19:00 | disposition home or self-care (01) ==
LOC: SP 12:30
PROVIDERS: PCP Internal Medicine; Referring Provider Nurse Practitioner Family; Visit Provider Nurse Practitioner Family
DX: R69 Illness, unspecified (principal)

== ENCOUNTER 2020-12-14 18:36 | Emergency (ER) | payer MEDICAID, SELFPAY ==
[2020-09-16 18:21] VITALS: BMI 24.2
[2020-12-14 18:37] VITALS: BP 128/69; PULSE 73; RESP 16; TEMP 36.2; O2SAT 98; BMI 24.2
--- NOTE | 2020-12-14 18:45 | ED.VIS.FALL ---
HPI HPI - Fall History of Present Illness Chief Complaint: Fall Informant: patient Occured/Mechanism Occurred: Yesterday Mechanism/Context: Yes slip Usually ambulates: Cane Pain/Injury Pain Location: chest Quality of Pain: Aching Current Severity: Moderate Maximum Severity: Moderate Associated Symptoms Associated Symptoms: Negative for Parasthesias, Weakness, Loss of function, Inability to ambulate and Loss of consciousness Narrative Narrative: The patient is a 64-year-old male history of prior stroke, who walks with a cane, who presents after falling last night. Patient states he was in his normal state of health. He was trying get out of the bathtub. He slipped. He landed on his left lateral ribs. He did not strike his head. He denies loss of consciousness. He states today, the pain was just getting more significant. He denies being short of breath. Has not taken anything for his pain. [facility] Medical History Complete heart block (02/2019) CVA (cerebral vascular accident) (02/2019) Essential (primary) hypertension HLD (hyperlipidemia) Paroxysmal supraventricular tachycardia (06/2017) Sick sinus syndrome Sinus pause Tachyarrhythmia Type II diabetes mellitus, uncontrolled Home Medications aspirin 81 mg PO DAILY 03/04/19 [History Last Taken 09/22/19] atorvastatin 80 mg PO DAILY 03/04/19 [History Last Taken 09/22/19] multivitamin 1 tab PO DAILY 03/04/19 [History Last Taken 09/22/19] clopidogrel 75 mg PO DAILY 04/25/19 [History Last Taken 09/22/19] metoprolol succinate 100 mg PO DAILY 04/25/19 [History Last Taken 09/22/19] insulin glargine 25 units SQ QHS 09/23/19 [History Last Taken 09/21/19] sennosides 8.6 mg PO BID 09/23/19 [History Last Taken 09/22/19] hydrochlorothiazide 12.5 mg capsule 25 mg PO DAILY #60 cap 11/06/19 [Rx Last Taken Unknown] amlodipine 5 mg tablet 10 mg PO DAILY tab 05/13/20 [History Last Taken Unknown] hydralazine 50 mg tablet 50 mg PO TID tab 05/13/20 [History Last Taken Unknown] metformin 500 mg tablet,extended release 24 hr 1,000 mg PO DAILY tab 05/13/20 [History Last Taken Unknown] Allergy/AdvReac Type Severity Reaction Status Date / Time metformin [From Glucophage] AdvReac Diarrhea Verified 12/14/20 18:37 Surgical History History of carpal tunnel release History of permanent cardiac pacemaker placement (03/05/19) Social History Smoking Status: Former smoker ROS ROS ED Constitutional Constitutional ED: Denies chills or fever(s) Eyes Eyes: Denies blurry vision or change in vision ENT ENT ED: Denies ear pain or sore throat Cardiovascular Cardiovascular: Denies chest pain or palpitations Respiratory/Chest Respiratory/Chest: Denies cough, dyspnea or dyspnea on exertion Gastrointestinal Gastrointestinal: Denies abdominal pain, nausea or vomiting Genitourinary Genitourinary ED: Denies dysuria or urinary frequency Musculoskeletal Musculoskeletal: Denies arthralgias or myalgias Integumentary Denies rash Neurologic Neurologic: Denies headache(s) or paresthesias Psychiatric Psychiatric: Denies anxiety or depression Endocrine Endocrinology: Denies polydipsia or polyuria Allergic/Immunologic Allergic/Immunologic ED: Denies urticaria EXAM Physical Exam Const Vital Signs: 12/14/20 18:37 12/14/20 18:56 Temperature 97.2 F L Temperature Source Temporal Pulse Rate 73 Respiratory Rate 16 Respiratory Effort Normal Respiratory Depth Normal Respiratory Pattern Normal Blood Pressure 128/69 H Blood Pressure Mean 88 Pulse Ox 98 Oxygen Delivery Method Room Air Room Air Positive well nourished and well developed General Appearance ED: well developed HEENT Reports normocephalic, head/scalp atraumatic and moist mucous membranes atraumatic; Negative for trauma or tenderness Eyes PERRL and EOMs intact bilaterally Neck full ROM, no lymphadenopathy and supple General: Negative for tenderness Chest Wall inspection of chest normal; Negative for palpation of chest normal Chest Narrative: Tenderness over the left lateral ribs without step-off or deformity. Resp normal respiratory effort and clear to auscultation bilaterally Cardio regular rate, regular rhythm and no murmurs GI normal to inspection, nondistended, normoactive bowel sounds Palpation: Negative for tender, guarding or rebound tenderness present Back/Spine no CVA tenderness Cervical Spine: Negative for cervical spine tenderness Thoracic Spine / Upper Back: Negative for thoracic spinal tenderness Extremity normal to inspection General Extremety ED: Negative for tenderness Neuro oriented x3 and CN's II-XII intact bilaterally Neuro Narrative: No focal deficits appreciated. Sensorium / Orientation: alert, oriented to person, oriented to place and oriented to time Psych mental status grossly normal Skin no rashes or lesions noted, no wounds and skin turgor normal MDM MDM MDM Narrative Medical decision making narrative: Patient presents with left lateral rib pain after a fall. He is not hypoxic or tachypneic. He has clear lung sounds bilaterally. He was given a dose of oral analgesics with improvement. I did obtain x-rays of the ribs with PA chest. These were reviewed by both myself and the radiologist. There is no evidence of pneumothorax. There is no evidence of occult rib fracture. The patient was counseled on his results. At this point, he will be discharged home. Impression 1. Left rib contusion Discharge Plan Triage Chief Complaint: Fall ED Provider: Giig Newman Dx/Rx/DC Orders Instructions: ED Contusion, Rib Prescriptions: No Action hydrochlorothiazide 12.5 mg capsule 25 mg PO DAILY Qty: 60 RF: 3 metformin 500 mg tablet extended release 24 hr 1,000 mg PO DAILY RF: 0 multivitamin 0 tablet 1 tab PO DAILY RF: 0 atorvastatin 80 MG tablet 80 mg PO DAILY RF: 0 aspirin 81 MG tablet,chewable 81 mg PO DAILY RF: 0 metoprolol succinate 100 MG tablet extended release 24 hr 100 mg PO DAILY RF: 0 clopidogrel 75 MG tablet 75 mg PO DAILY RF: 0 amlodipine 5 mg tablet 10 mg PO DAILY RF: 0 sennosides 8.6 MG tablet 8.6 mg PO BID RF: 0 insulin glargine 100 UNIT/ML insulin pen 25 units SQ QHS RF: 0 hydralazine 50 mg tablet 50 mg PO TID RF: 0 Primary Care Provider: Vera Lucas Referrals: Vera Lucas MD [Primary Care Provider] -
[2020-12-14] MEDS: HYDROcodone Bitartrate/Apap 5/325 Tablet PO (18:55)
--- NOTE | 2020-12-14 19:00 | RAD_ITS ---
INDICATION: fall EXAMINATION/TECHNIQUE: X-RAY - XR Ribs Unilateral W/ PA Chest Min 3 Views COMPARISON: None. FINDINGS: SOFT TISSUES: No soft tissue swelling or gas. BONES: No displaced fracture. No sclerotic or destructive changes observed. VISUALIZED LUNGS: Clear. No pneumothorax. Tortuous and calcified thoracic aorta. Left-sided cardiac device. RAD/Ribs Uni Min 3V w/PA Chest IMPRESSION: No evidence of displaced rib fracture. Electronically Signed: Miguel Ram MD at 19:50 EDT Tel , Service support ,
== END 2020-12-14 20:12 | disposition home or self-care (01) ==
LOC: ED 18:59
PROVIDERS: Emergency Provider Emergency Medicine; PCP Internal Medicine
DX: S20.212A Contusion of left front wall of thorax, initial encounter (principal); W19.XXXA Unspecified fall, initial encounter; Z87.891 Personal history of nicotine dependence; Z86.73 Personal history of transient ischemic attack (TIA), and cerebral infarction without residual deficits
CPT/HCPCS: 71101; 99282

== ENCOUNTER 2021-04-02 17:13 | Inpatient (IN) | payer MEDICAID, SELFPAY ==
[2021-04-02 17:14] VITALS: BP 157/63; PULSE 65; RESP 18; TEMP 36.4; O2SAT 98; BMI 24.6
--- NOTE | 2021-04-02 18:59 | EKG12_ITS ---
Test Reason : GENERAL ILLNESS Blood Pressure : / mmHG Vent. Rate : 063 BPM Atrial Rate : 063 BPM P-R Int : 000 ms QRS Dur : 096 ms QT Int : 436 ms P-R-T Axes : 000 -18 016 degrees QTc Int : 446 ms Junctional rhythm Voltage criteria for left ventricular hypertrophy Abnormal ECG Confirmed by BOUCHRA VILLA, FESTUS ([id number]), online editor ROCKY LO ([id number]) on 04/05/2021 12:50:14 PM Referred By: DR PATEL Confirmed By:FESTUS SHOOK MD
[2021-04-02 19:30] LABS: AST(SGOT) 18 U/L (15-37); Alanine Aminotransfer ALT/SGPT 25 U/L (16-61); Albumin, Serum 3.5 g/dL (3.2-5.0); Alkaline Phosphatase 117 U/L (45-117); Anion Gap 8 (5-15); BUN 98 mg/dL (7-18); BUN/Creat Ratio 30.4 RATIO (10-20); Calcium,Total 8.4 mg/dL (8.5-10.1); Chloride 110 mmol/L (98-107); Creatinine, Serum 3.22 mg/dL (0.70-1.30); EST Glomerular Filtration Rate 21 mL/min (>60); Est Glom Filt Rate - Afr Amer 25 mL/min (>60); Estimated Creatinine Clearance 23.48 ml/min; Globulin 3.5 g/dL (2.2-4.2); Glucose 148 mg/dL (74-106); Potassium 4.8 mmol/L (3.5-5.1); Sodium Level 138 mmol/L (136-145); Troponin-I HS 9 pg/mL (3.0-78.0)
--- NOTE | 2021-04-02 19:55 | RAD_ITS ---
INDICATION: Cough EXAMINATION/TECHNIQUE: X-RAY - XR Chest 1 View COMPARISON: 12/14/2020. FINDINGS: The lungs are clear. Tortuous and calcified thoracic aorta. The heart is not enlarged. Left-sided cardiac device. No pleural effusion or pneumothorax. No acute osseous abnormalities. RAD/Chest 1 View (Portable) IMPRESSION: No acute radiographic abnormalities. Electronically Signed: Miguel Ram MD at 20:31 EDT Tel , Service support ,
--- NOTE | 2021-04-02 20:16 | EX.ED.DYSGE1 ---
HPI History of Present Illness Chief Complaint: General Illness Informant: patient Onset/Context/Timing Onset: Days (2) Context: Gradual Onset Timing: Continuous Quality: I do not feel well Location: Generalized Worsened by: Nothing Relieved by: Nothing Narrative Narrative: Patient presents with I do not feel well over the past 2 days. Patient admits to mild headache and back pain. Patient also admits to some urinary frequency but denies any dysuria. Patient denies any covert exposures. Patient states he has not gotten his COVID-19 vaccine. Patient states nothing makes his symptoms better and nothing makes them worse. Patient denies any chest pain or shortness of breath. Patient denies any nausea or vomiting. [facility] Medical History Complete heart block (02/2019) CVA (cerebral vascular accident) (02/2019) Diabetes mellitus Essential (primary) hypertension HLD (hyperlipidemia) Paroxysmal supraventricular tachycardia (06/2017) Sick sinus syndrome Sinus pause Tachyarrhythmia Type II diabetes mellitus, uncontrolled Home Medications aspirin 81 mg PO DAILY 03/04/19 [History Last Taken 09/22/19] atorvastatin 80 mg PO DAILY 03/04/19 [History Last Taken 09/22/19] multivitamin 1 tab PO DAILY 03/04/19 [History Last Taken 09/22/19] clopidogrel 75 mg PO DAILY 04/25/19 [History Last Taken 09/22/19] metoprolol succinate 100 mg PO DAILY 04/25/19 [History Last Taken 09/22/19] insulin glargine 25 units SQ QHS 09/23/19 [History Last Taken 09/21/19] sennosides 8.6 mg PO BID 09/23/19 [History Last Taken 09/22/19] hydrochlorothiazide 12.5 mg capsule 25 mg PO DAILY #60 cap 11/06/19 [Rx Last Taken Unknown] amlodipine 5 mg tablet 10 mg PO DAILY tab 05/13/20 [History Last Taken Unknown] hydralazine 50 mg tablet 50 mg PO TID tab 05/13/20 [History Last Taken Unknown] metformin 500 mg tablet,extended release 24 hr 1,000 mg PO DAILY tab 05/13/20 [History Last Taken Unknown] lidocaine 1 patch TOPICAL TID PRN #10 ea 12/14/20 [Rx Last Taken Unknown] Allergy/AdvReac Type Severity Reaction Status Date / Time metformin [From Glucophage] AdvReac Diarrhea Verified 04/02/21 17:15 Surgical History History of carpal tunnel release History of permanent cardiac pacemaker placement (03/05/19) Social History Smoking Status: Former smoker ROS ROS ED Constitutional Constitutional ED: Denies chills or fever(s) Eyes Eyes: Denies blurry vision or change in vision ENT ENT ED: Denies rhinorrhea or sore throat Cardiovascular Cardiovascular: Denies chest pain or palpitations Respiratory/Chest Respiratory/Chest: Denies cough or dyspnea Gastrointestinal Gastrointestinal: Denies nausea or vomiting Genitourinary Genitourinary ED: Reports urinary frequency; Denies dysuria or hematuria Musculoskeletal Musculoskeletal: Reports back pain; Denies neck pain Integumentary Denies abscess or rash Neurologic Neurologic: Reports headache(s); Denies weakness Allergic/Immunologic Allergic/Immunologic ED: Denies mouth swelling or urticaria EXAM Physical Exam Const Vital Signs: 04/02/21 17:14 04/02/21 18:03 04/02/21 21:08 Temperature 97.6 F L Temperature Source Temporal Pulse Rate 65 71 Respiratory Rate 18 16 Respiratory Effort Normal Non-Labored Respiratory Pattern Normal Blood Pressure 157/63 H 155/69 H Blood Pressure Mean 94 97 Pulse Ox 98 98 Oxygen Delivery Method Room Air Room Air Positive well nourished and well developed General Appearance ED: well developed HEENT Reports moist mucous membranes Neck supple and no JVD Resp normal respiratory effort and clear to auscultation bilaterally Cardio regular rate, regular rhythm and no murmurs GI normal to inspection, nondistended, normoactive bowel sounds and non-tender Palpation: soft Extremity normal to inspection General Extremety ED: Negative for edema or tenderness General Extremity: Negative for edema Neuro oriented x3, CN's II-XII intact bilaterally and no sensory deficits noted Sensorium / Orientation: alert Motor Exam: strength 5/5 throughout Psych mental status grossly normal Skin no rashes or lesions noted MDM MDM MDM Narrative Medical decision making narrative: EKG was obtained. On my interpretation, there is a sinus rhythm with first-degree AV block. There is left ventricular hypertrophy noted. There are no acute ST or T wave changes. QRS interval and QTc intervals were normal. [place] was normal. CBC and comprehensive metabolic profile were obtained. BUN was elevated at 98 and creatinine was elevated at 3.22. These were increased from previous results. Urinalysis does not show any evidence of urinary tract infection. COVID-19 rapid antigen was obtained and was negative. High-sensitivity troponin was normal. Portable 1 view chest x-ray was obtained. On my interpretation, lung patel are clear. There is normal cardiac silhouette. Bony thorax is normal. There is no acute process noted. Radiologist also interpreted the x-ray and agrees. Case was discussed with the hospitalist. She will admit the patient to her service. Patient understood and was agreeable with the plan. All questions were answered. Lab Data Attestation: I reviewed the patient's lab results. Labs: Laboratory Results - last 24 hr 04/02/21 04/02/21 04/02/21 20:21 Unknown Unknown WBC Cancelled Corrected WBC Cancelled RBC Cancelled Hgb Cancelled Hct Cancelled MCV Cancelled MCH Cancelled MCHC Cancelled RDW Std Deviation Cancelled RDW Coeff of Harry Cancelled Plt Count Cancelled MPV Cancelled Immature Gran % (Auto) Cancelled Neut % (Auto) Cancelled Lymph % (Auto) Cancelled [place] % (Auto) Cancelled Eos % (Auto) Cancelled Baso % (Auto) Cancelled Absolute Neuts (auto) Cancelled Absolute Lymphs (auto) Cancelled Total Counted Cancelled Neutrophils % (Manual) Cancelled Band Neutrophils % Cancelled Lymphocytes % (Manual) Cancelled Monocytes % (Manual) Cancelled Eosinophils % (Manual) Cancelled Basophils % (Manual) Cancelled Metamyelocytes % Cancelled Myelocytes % Cancelled Promyelocytes % Cancelled Blast Cells % Cancelled Plasma Cell % (Manual) Cancelled Other Cells % Cancelled Nucleated RBC % Cancelled Nucleated RBCs/100 WBC Cancelled Differential Comment Cancelled Diff Path Review Cancelled Hypersegmented Neuts Cancelled Atypical Lymphocytes Cancelled Reactive Lymphocytes Cancelled Smudge Cells Cancelled Toxic Granulation Cancelled Toxic Vacuolation Cancelled Dohle Bodies Cancelled Odilia Rods Cancelled Platelet Estimate Cancelled Plt Morphology Comment Cancelled RBC Morphology Cancelled Polychromasia Cancelled Hypochromasia Cancelled Poikilocytosis Cancelled Basophilic Stippling Cancelled Anisocytosis Cancelled Microcytosis Cancelled Macrocytosis Cancelled Spherocytes Cancelled Sickle Cells Cancelled Target Cells Cancelled Tear Drop Cells Cancelled Ovalocytes Cancelled Stomatocytes Cancelled [place] Bodies Cancelled [place] Cells Cancelled Bite Cells Cancelled Crenated Cell Cancelled Acanthocytes (Spur) Cancelled Rouleaux Cancelled Schistocytes Cancelled Sodium 138 Potassium 4.8 Chloride 110 H Carbon Dioxide 20.0 L Anion Gap 8 BUN 98 H Creatinine 3.22 H Estim Creat Clear Calc 23.48 Est GFR (MDRD) Af Amer 25 L Est GFR (MDRD) Non-Af 21 L BUN/Creatinine Ratio 30.4 H Glucose 148 H Calcium 8.4 L Total Bilirubin 0.20 AST 18 ALT 25 Alkaline Phosphatase 117 Troponin I High Sens 9 Total Protein 7.0 Albumin 3.5 Globulin 3.5 Albumin/Globulin Ratio 1.0 Urine Color Yellow Urine Clarity Clear Urine pH 5.0 Ur Specific [place] 1.015 Urine Protein 100 H Urine Glucose (UA) Normal Urine Ketones Negative Urine Occult Blood Negative Urine Nitrite Negative Urine Bilirubin Negative Urine Urobilinogen Normal Ur Leukocyte Esterase Negative Urine RBC 0 SEEN Urine WBC 0-5 SEEN Ur Squamous Epith Cells 0 SEEN Urine Bacteria 0 SEEN Urine Mucus 0 SEEN 04/02/21 Unknown WBC 7.1 Corrected WBC RBC 3.13 L Hgb 8.7 L Hct 26.5 L MCV 84.7 MCH 27.8 MCHC 32.8 RDW Std Deviation 40.0 RDW Coeff of Harry 13.1 Plt Count 238 MPV 9.3 Immature Gran % (Auto) 0.700 Neut % (Auto) 61.4 Lymph % (Auto) 27.7 [place] % (Auto) 7.2 Eos % (Auto) 2.7 Baso % (Auto) 0.3 Absolute Neuts (auto) 4.3 Absolute Lymphs (auto) 1.96 Total Counted Neutrophils % (Manual) Band Neutrophils % Lymphocytes % (Manual) Monocytes % (Manual) Eosinophils % (Manual) Basophils % (Manual) Metamyelocytes % Myelocytes % Promyelocytes % Blast Cells % Plasma Cell % (Manual) Other Cells % Nucleated RBC % 0 Nucleated RBCs/100 WBC Differential Comment Diff Path Review Hypersegmented Neuts Atypical Lymphocytes Reactive Lymphocytes Smudge Cells Toxic Granulation Toxic Vacuolation Dohle Bodies Odilia Rods Platelet Estimate Plt Morphology Comment RBC Morphology Polychromasia Hypochromasia Poikilocytosis Basophilic Stippling Anisocytosis Microcytosis Macrocytosis Spherocytes Sickle Cells Target Cells Tear Drop Cells Ovalocytes Stomatocytes [place] Bodies [place] Cells Bite Cells Crenated Cell Acanthocytes (Spur) Rouleaux Schistocytes Sodium Potassium Chloride Carbon Dioxide Anion Gap BUN Creatinine Estim Creat Clear Calc Est GFR (MDRD) Af Amer Est GFR (MDRD) Non-Af BUN/Creatinine Ratio Glucose Calcium Total Bilirubin AST ALT Alkaline Phosphatase Troponin I High Sens Total Protein Albumin Globulin Albumin/Globulin Ratio Urine Color Urine Clarity Urine pH Ur Specific [place] Urine Protein Urine Glucose (UA) Urine Ketones Urine Occult Blood Urine Nitrite Urine Bilirubin Urine Urobilinogen Ur Leukocyte Esterase Urine RBC Urine WBC Ur Squamous Epith Cells Urine Bacteria Urine Mucus Radiography Chest X-Ray - ED: 1 View, Read by ED Physician, Read by Radiologist and Normal Diagnostic Testing: Radiology Impression Chest X-Ray 04/02/21 19:55 IMPRESSION: No acute radiographic abnormalities. Electronically Signed: Miguel Ram MD at 20:31 EDT Tel , Service support , EKG Initial EKG: Attestation: I personally reviewed and interpreted this EKG as follows: Interpretation: Sinus Rhythm (First-degree AV block with a rate of 63) and No Acute Injury Pattern Comments: Left ventricular hypertrophy Prior EKG tracings: available for review Prior: Unchanged (09/16/2020) Discharge Plan Triage Chief Complaint: General Illness ED Provider: Juice Suero Dx/Rx/DC Orders Clinical Impression: Acute kidney injury Prescriptions: No Action hydrochlorothiazide 12.5 mg capsule 25 mg PO DAILY Qty: 60 RF: 3 metformin 500 mg tablet extended release 24 hr 1,000 mg PO DAILY RF: 0 multivitamin 0 tablet 1 tab PO DAILY RF: 0 atorvastatin 80 MG tablet 80 mg PO DAILY RF: 0 aspirin 81 MG tablet,chewable 81 mg PO DAILY RF: 0 metoprolol succinate 100 MG tablet extended release 24 hr 100 mg PO DAILY RF: 0 clopidogrel 75 MG tablet 75 mg PO DAILY RF: 0 amlodipine 5 mg tablet 10 mg PO DAILY RF: 0 sennosides 8.6 MG tablet 8.6 mg PO BID RF: 0 insulin glargine 100 UNIT/ML insulin pen 25 units SQ QHS RF: 0 hydralazine 50 mg tablet 50 mg PO TID RF: 0 lidocaine 4 % adhesive patch,medicated 1 patch topical TID PRN (Reason: pain) Qty: 10 RF: 0 Primary Care Provider: Vera Lucas Referrals: Vera Lucas MD [Primary Care Provider] - Disposition Disposition: Acute Care Hospital [facility]
[2021-04-02 20:17] LABS: Absolute Lymphocyte Count 1.96 X10^3/uL (0.83-4.51); Absolute Neutrophil Count 4.3 X10^3/uL (2.0-7.7); Basophil# 0.02 X10^3/uL; Basophil% 0.3 % (0-1); Eosinophil# 0.19 X10^3/uL; Eosinophils% 2.7 % (0-5); Hematocrit 26.5 % (40-54); Hemoglobin 8.7 g/dL (13.0-16.5); Lymphocyte # 1.96 X10^3/ul (0.83-4.51); Lymphocyte % 27.7 % (19-41); Mean Corp Hgb Conc 32.8 g/dL (32-36); Mean Corpuscular Hgb 27.8 pg (27.0-32.0); Mean Corpuscular Volume 84.7 fL (80-94); Mean Platelet Vol. 9.3 fl (6.2-12.0); Monocyte# 0.51 X10^3/uL; Monocyte% 7.2 % (0-10); NRBC Flagged by Analyzer 0 % (0-5); Neutrophil # 4.34 X10^3/uL (2.7-7.7); Neutrophil % 61.4 % (47-70); Platelet Count 238 K/mm3 (150-450); RBC Distribution Width CV 13.1 % (11.6-14.6); Red Blood Count 3.13 M/mm3 (4.6-6.2); White Blood Count 7.1 K/mm3 (4.4-11.0)
[2021-04-02 20:30] LABS: Bacteria 0 SEEN /hpf (None Seen); Mucous, Urine 0 SEEN /hpf (<or=2+); Red Blood Cells-Urine 0 SEEN /hpf (0-5); Squamous Epithelial Cells - UA 0 SEEN /hpf (0-5)
[2021-04-02 20:39] LABS: Color, Urine Yellow (Yellow); Glucose, Dipstick Normal (Normal); Ketone-Dipstick Negative (Negative); Leukocyte Esterase-Dipstick Negative /ul (Negative); Nitrite-Dipstick Negative (Negative); Occult Blood-Urine Negative /ul (Negative); Protein-Dipstick 100 mg/dl (Negative); Specific Gravity, Urine 1.015 (1.002-1.030); Urine Bilirubin Dipstick Negative (Negative); Urine Clarity Clear (Clear); Urine Urobilinogen Normal (Normal)
[2021-04-02 20:46] LABS: White Blood Cells 0-5 SEEN /hpf (0-5)
[2021-04-02 21:08] VITALS: BP 155/69; PULSE 71; RESP 16; O2SAT 98
--- NOTE | 2021-04-02 21:29 | HP.PCM.HOS_ITS ---
HPI - General General Date of Admission: 04/02/21 Date of Service: 04/02/21 HPI Narrative The patient is a 65 y/o M w/ PMHx: Chronic anemia, Hx TIA/CVA, HTN, HLD, Hx SSS/complete heart block s/p pacemaker placement, Hx PSVT, Diabetes mellitus type II who presents to the [facility] ED on 04/02/21 with history of general fatigue, malaise, mild headache and back discomfort without any recent illness, no fever, chills, cough or dyspnea. He notes having appropriate appetite and eating without issue. He does admit to poor water/hydration which is common for him. He denies having had COVID vaccination series. Work-up in the ED included T 97.6, heart 65, BP 157/63, respiratory rate 18, 98% on room air, CBC with WBC 7.1, hemoglobin 8.7, platelet 238 without marked shift, CMP with chloride 110, carbon oxide 20, BUN/creatinine 98/3.22, glucose 148, unremarkable hepatic profile, high-sensitivity troponin IX, chest x-ray with no acute cardiopulmonary findings, rapid Covid antigen negative, urinalysis not marked appearing. [facility] Medical History (Updated 04/02/21 @ 23:16 by Carol Graves) Complete heart block (02/2019) CVA (cerebral vascular accident) (02/2019) Diabetes mellitus DVT (deep venous thrombosis) Essential (primary) hypertension Former smoker HLD (hyperlipidemia) Kidney disease Pacemaker Paroxysmal supraventricular tachycardia (06/2017) Sick sinus syndrome Sinus pause Tachyarrhythmia Type II diabetes mellitus, uncontrolled Home Medications aspirin 81 mg PO DAILY 03/04/19 [History Last Taken 09/22/19] atorvastatin 80 mg PO DAILY 03/04/19 [History Last Taken 09/22/19] multivitamin 1 tab PO DAILY 03/04/19 [History Last Taken 09/22/19] clopidogrel 75 mg PO DAILY 04/25/19 [History Last Taken 09/22/19] metoprolol succinate 100 mg PO DAILY 04/25/19 [History Last Taken 09/22/19] insulin glargine 25 units SQ QHS 09/23/19 [History Last Taken 09/21/19] sennosides 8.6 mg PO BID 09/23/19 [History Last Taken 09/22/19] hydrochlorothiazide 12.5 mg capsule 25 mg PO DAILY #60 cap 11/06/19 [Rx Last Taken Unknown] amlodipine 5 mg tablet 10 mg PO DAILY tab 05/13/20 [History Last Taken Unknown] hydralazine 50 mg tablet 50 mg PO TID tab 05/13/20 [History Last Taken Unknown] metformin 500 mg tablet,extended release 24 hr 1,000 mg PO DAILY tab 05/13/20 [History Last Taken Unknown] lidocaine 1 patch TOPICAL TID PRN #10 ea 12/14/20 [Rx Last Taken Unknown] Allergy/AdvReac Type Severity Reaction Status Date / Time metformin [From Glucophage] AdvReac Diarrhea Verified 04/02/21 17:15 Family History (Updated 04/03/21 @ 01:[address] Catherine Saravia MD) Mother Cancer Father Heart disease Hypertension Myocardial infarction Surgical History History of carpal tunnel release History of permanent cardiac pacemaker placement (03/05/19) Social History (Updated 04/03/21 @ 01:[address] Catherine Saravia MD) household members: none Smoking Status: Former smoker Smokeless tobacco user: other alcohol intake: never substance use type: does not use ROS ROS Narrative Admission Review of Systems: CONSTITUTIONAL: No weight loss, fever, chills, + weakness or fatigue. HEENT: + Mild headache recently. Eyes: No visual loss, blurred vision, double vision or yellow sclerae. Ears, Nose, Throat: No hearing loss, sneezing, congestion, runny nose or sore throat. SKIN: No rash or itching, lesions, wounds. CARDIOVASCULAR: No chest pain, chest pressure or chest discomfort, palpitations, edema, orthopnea, syncopal events. RESPIRATORY: No shortness of breath, cough or sputum, wheezing, hemoptysis. GASTROINTESTINAL: No anorexia, nausea, vomiting or diarrhea, abdominal pain, melena, BRBPR. GENITOURINARY: No dysuria, frequency, urgency or retention. NEUROLOGICAL: + Mild headache, No dizziness, syncope, paralysis, ataxia, numbness or tingling in the extremities, focal weakness, change in bowel or bladder control, seizure. MUSCULOSKELETAL: + muscle, back pain, joint pain or stiffness. HEMATOLOGIC: + anemia, bleeding or bruising. LYMPHATICS: No enlarged nodes. No history of splenectomy. PSYCHIATRIC: No history of depression or anxiety. ENDOCRINOLOGIC: No reports of sweating, cold or heat intolerance. No polyuria or polydipsia. ALLERGIES: No history of asthma, hives, eczema or rhinitis. Vital Signs Vital Signs Vital Signs: 04/02/21 17:14 04/02/21 18:03 04/02/21 21:08 Temperature 97.6 F L Temperature Source Temporal Pulse Rate 65 71 Respiratory Rate 18 16 Respiratory Effort Normal Non-Labored Respiratory Pattern Normal Blood Pressure 157/63 H 155/69 H Blood Pressure Mean 94 97 Pulse Ox 98 98 Oxygen Delivery Method Room Air Room Air Weight Weight: 167 lb Body Mass Index (BMI) 24.6 Physical Exam Narrative Physical Examination: General: Awake, alert, oriented x 3 and cooperative, seated upright in the ED bed, no acute distress, notes feeling fatigued otherwise no complaints. Skin: Normal color, normal turgor, no icterus, no cyanosis. HEENT: AT/NC, EOMI, PERRLA, moderately dry MM, no carotid bruits or JVD noted. Lungs: CTA bilaterally, moderate effort, mild decrease BL bases, no rales, ronchi or wheezing. Heart: Regular rate and rhythm; no gallop, rub audible. Abdomen: Soft, NTTP, ND, normal BS, no HSM. Extremities: No cyanosis, clubbing, or edema. Neurological: Patient awake, alert, oriented as noted, cognitive function appears baseline intact; pupils equally reactive to light and accommodation, cranial nerves II-XII grossly normal, moving all 4 extremities, no focal deficits, strength moderately global decreased. Psychiatric: Affect appears fatigued otherwise normal, no acute evidence of depressive or anxiety feelings. Results Lab / Micro Data Result Diagrams: 04/02/21 Unknown 04/02/21 Unknown Labs: Laboratory Results - last 24 hr 04/02/21 20:21: Urine Color Yellow, Urine Clarity Clear, Urine pH 5.0, Ur Sp ecific [place] 1.015, Urine Protein 100 H, Urine Glucose (UA) Normal, Urine K etones Negative, Urine Occult Blood Negative, Urine Nitrite Negative, Urine Bilirubin Negative, Urine Urobilinogen Normal, Ur Leukocyte Esterase Negative, Urine RBC 0 SEEN, Urine WBC 0-5 SEEN, Ur Squamous Epith Cells 0 SEEN, Urine Bacteria 0 SEEN, Urine Mucus 0 SEEN 04/02/21 : WBC Cancelled, Corrected WBC Cancelled, RBC Cancelled, Hgb Cancelled, Hct Cancelled, MCV Cancelled, MCH Cancelled, MCHC Cancelled, RDW Std Deviation Cancelled, RDW Coeff of Harry Cancelled, Plt Count Cancelled, MPV Cancelled, Immature Gran % (Auto) Cancelled, Neut % (Auto) Cancelled, Lymph % (Auto) C ancelled, [place] % (Auto) Cancelled, Eos % (Auto) Cancelled, Baso % (Auto) Cancelled, Absolute Neuts (auto) Cancelled, Absolute Lymphs (auto) Cancelled, Total Counted Cancelled, Neutrophils % (Manual) Cancelled, Band Neutrophils % Cancelled, Lymphocytes % (Manual) Cancelled, Monocytes % (Manual) Cancelled, Eosinophils % (Manual) Cancelled, Basophils % (Manual) Cancelled, Metamyelocytes % Cancelled, Myelocytes % Cancelled, Promyelocytes % Cancelled, Blast Cells % Cancelled, Plasma Cell % (Manual) Cancelled, Other Cells % Cancelled, Nucleated RBC % Cancelled, Nucleated RBCs/100 WBC Cancelled, Differential Comment Cancelled, Diff Path Review Cancelled, Hypersegmented Neuts Cancelled, Atypical Lymphocytes Cancelled, Reactive Lymphocytes Cancelled, Smudge Cells Cancelled, Toxic Granulation Cancelled, Toxic Vacuolation Cancelled, Dohle Bodies Cancelled, Odilia Rods Cancelled, Platelet Estimate Cancelled, Plt Morphology Comment Cancelled, RBC Morphology Cancelled, Polychromasia Cancelled, Hypochr omasia Cancelled, Poikilocytosis Cancelled, Basophilic Stippling Cancelled, Anisocytosis Cancelled, Microcytosis Cancelled, Macrocytosis Cancelled, Spherocytes Cancelled, Sickle Cells Cancelled, Target Cells Cancelled, Tear Drop Cells Cancelled, Ovalocytes Cancelled, Stomatocytes Cancelled, [place] Bodies Cancelled, [place] Cells Cancelled, Bite Cells Cancelled, Crenated Cell Cancelled, Acanthocytes (Spur) Cancelled, Rouleaux Cancelled, Schistocytes Cancelled 04/02/21 : Sodium 138, Potassium 4.8, Chloride 110 H, Carbon Dioxide 20.0 L, Anion Gap 8, BUN 98 H, Creatinine 3.22 H, Estim Creat Clear Calc 23.48, Est GFR (MDRD) Af Amer 25 L, Est GFR (MDRD) Non-Af 21 L, BUN/Creatinine Ratio 30.4 H, Glucose 148 H, Calcium 8.4 L, Total Bilirubin 0.20, AST 18, ALT 25, Alkaline Phosphatase 117, Troponin I High Sens 9, Total Protein 7.0, Albumin 3.5, Globulin 3.5, Albumin/Globulin Ratio 1.0 04/02/21 : WBC 7.1, RBC 3.13 L, Hgb 8.7 L, Hct 26.5 L, MCV 84.7, MCH 27.8, MCHC 32.8, RDW Std Deviation 40.0, RDW Coeff of Harry 13.1, Plt Count 238, MPV 9.3, Immature Gran % (Auto) 0.700, Neut % (Auto) 61.4, Lymph % (Auto) 27.7, [place] % (Auto) 7.2, Eos % (Auto) 2.7, Baso % (Auto) 0.3, Absolute Neuts (auto) 4.3, Absolute Lymphs (auto) 1.96, Nucleated RBC % 0 Micro: Microbiology 04/02/21 19:30 Nasal Secretion SARS-CoV-2 Antigen (Rapid) - Final Radiology Impression Chest X-Ray 04/02/21 19:55 IMPRESSION: No acute radiographic abnormalities. Electronically Signed: Miguel Ram MD at 20:31 EDT Tel , Service support , Assessment & Plan Assessment/Plan (1) Acute kidney injury: PLAN: The patient is a 65 y/o M w/ PMHx: Chronic anemia, Hx TIA/CVA, HTN, HLD, Hx SSS/complete heart block s/p pacemaker placement, Hx PSVT, Diabetes mellitus type II who presents to the [facility] ED on 04/02/21 with history of general fatigue, malaise, mild headache and back discomfort without any recent illness, no fever, chills, cough or dyspnea. 1. Acute kidney injury: Secondary to unclear etiology. Admission BUN/Cr 98/3.22, prior baseline creatinine noted to be most recently 1.53 09/17/2020 however prior baseline appears primarily 1.2-1.3. Will judiciously hydrate, hold nephrotoxic medications and repeat chemistry in AM. Will obtain FeNa and renal ultrasound assessment. 2. Adult Failure to Thrive: Patient with notable debility, fatigue, difficulty caring for himself likely secondary to #1, unclear exact specific etiology, continue to evaluate as noted above. PT/OT/case management consultations for discharge planning. 3. Chronic anemia, normocytic: Admission hemoglobin 8.7, prior baseline 8-10, more recently 8-9, will continue to trend and repeat CBC in AM. If any further decrease may necessitate stool guaiac especially given dual antiplatelet usage. 4. Diabetes mellitus type II: Hold oral home regimen, continue home insulin regimen, ADA diet, accu checks w/ ISS. 5. History of sick sinus syndrome/complete heart block: Patient status post cardiac pacemaker placement, will request interrogation. 6. History CVA: We will continue patient aspirin, Plavix, statin, hypertensive regimen, continue home insulin regimen with insulin sliding scale and Accu- Cheks. 7. Hypertension: Continue home regimen including amlodipine, hydralazine, metoprolol, holding hydrochlorothiazide given acute kidney injury as noted above, PRN hydralazine. 8. Hyperlipidemia: We will continue patient on statin therapy. 9. DVT prophylaxis: SCDs, heparin. Charges/Coding Visit Charges Inpatient E&M: 07427 Init Hosp L2
[2021-04-02 21:57] VITALS: BP 165/74; PULSE 63; RESP 16; TEMP 36.6; O2SAT 97
[2021-04-02] MEDS: 0.9% Normal Saline 1,000 ML 1000 ML IV (21:57)
[2021-04-02 23:06] VITALS: BP 161/71; PULSE 64; RESP 16; TEMP 36.8; O2SAT 100; BMI 24.6
[2021-04-02 23:20] LABS: Urine Sodium 62 mmol/L (Not Establ.)
[2021-04-02 23:48] VITALS: BP 161/71; PULSE 64
[2021-04-02] MEDS: Senna Tablet 1 TABLET PO (23:48)
[2021-04-02] MEDS: hydrALAZINE 50 MG Tablet PO (23:48)
[2021-04-02] MEDS: Heparin Injection (Vial) 5,000 UNIT/ML VIAL 5000 UNIT SC (23:49)
[2021-04-03] VITALS (10 sets, daily range): BP systolic 147–164; BP diastolic 64–102; PULSE 61–84; RESP 18; TEMP 36.6–36.8; O2SAT 96–99
[2021-04-03 00:01] LABS: Bedside Glucose 83 mg/dL (70-110)
[2021-04-03] MEDS: 0.9% Normal Saline 1,000 ML 125 ML IV ×3 (02:44→20:01)
--- NOTE | 2021-04-03 05:55 | US_ITS ---
EXAM: US RETROPERITONEAL LIMITED, RENAL : 1955 CLINICAL INDICATION: VENICE TECHNIQUE: Limited grayscale and color Doppler sonographic evaluation of the retroperitoneum was performed. This report was created using [employer] report [employer] technology. COMPARISON: None. FINDINGS: RIGHT KIDNEY: The right kidney measures 11.1 x 6.9 x 5.8 cm. The right renal cortex measures 1.8 cm. There are several calcifications in the right kidney the largest measuring 7 mm compatible non-obstructing calyceal stones. No perinephric collection is demonstrated. LEFT KIDNEY: The left kidney measures 11.8 x 5.5 x 4.3 cm. The left renal cortex measures 2.3 cm. There is a 1.9 x 1.7 cm anechoic structure in the left kidney compatible with a cyst. No follow-up imaging necessary There is also a 1.0 cm echogenic structure in the kidney compatible with a calyceal stone. There is mild dilatation of the left renal pelvis. No perinephric collection is demonstrated. BLADDER: The bladder measures 14.7 x 8.8 x 10.5 cm. There are bilateral ureteral jets. US/Kidney and Bladder IMPRESSION: Mild dilatation of the left renal pelvis. There is no hydronephrosis. There are bilateral calyceal stones present. There are bilateral ureteral jets within the bladder. at [id number] Reported and signed by: Josias Jo MD Electronically Signed: Josias Jo MD at 13:30 EDT Tel , Service support ,
[2021-04-03] MEDS: hydrALAZINE 50 MG Tablet PO ×3 (06:21→22:01)
[2021-04-03 06:45] LABS: Bedside Glucose 98 mg/dL (70-110)
[2021-04-03 07:33] LABS: Absolute Lymphocyte Count 1.43 X10^3/uL (0.83-4.51); Absolute Neutrophil Count 5.1 X10^3/uL (2.0-7.7); Basophil# 0.01 X10^3/uL; Basophil% 0.1 % (0-1); Eosinophil# 0.16 X10^3/uL; Eosinophils% 2.2 % (0-5); Hematocrit 25.9 % (40-54); Hemoglobin 8.4 g/dL (13.0-16.5); Lymphocyte # 1.43 X10^3/ul (0.83-4.51); Lymphocyte % 19.9 % (19-41); Mean Corp Hgb Conc 32.4 g/dL (32-36); Mean Corpuscular Volume 86.3 fL (80-94); Monocyte# 0.42 X10^3/uL; Monocyte% 5.9 % (0-10); NRBC Flagged by Analyzer 0 % (0-5); Neutrophil % 71.2 % (47-70); Platelet Count 232 K/mm3 (150-450); RBC Distribution Width CV 12.8 % (11.6-14.6); RBC Distribution Width SD 40.4 fl (35.1-43.9); White Blood Count 7.2 K/mm3 (4.4-11.0)
--- NOTE | 2021-04-03 07:44 | PCM.PN.HOSP ---
Subjective Subjective Patient denies any obvious cause of kidney failure including hypovolemia, diarrhea or vomiting. Has multiple comorbidities COVID-19 rapid antigen negative. Objective Data Objective Data Vital Signs: Vital Signs Temp Pulse Resp BP Pulse Ox 98.1 F 61 18 147/64 H 99 04/03/21 05:08 04/03/21 06:21 04/03/21 05:08 04/03/21 06:21 04/03/21 05:08 Oxygen Delivery Method Room Air Weight: 167 lb Body Mass Index (BMI) 24.6 Intake & Output: Intake and Output for Last 24 Hours 04/01/21 04/02/21 04/03/21 23:59 23:59 23:59 Intake Total 1330 / 1330 Output Total 800 / 800 Balance 530 / 530 Lab / Micro Data Result Diagrams: 04/03/21 06:21 04/03/21 06:21 Labs: Laboratory Results - last 24 hr 04/02/21 20:21: Urine Color Yellow, Urine Clarity Clear, Urine pH 5.0, Ur Specific [place] 1.015, Urine Protein 100 H, Urine Glucose (UA) Normal, Urine Ketones Negative, Urine Occult Blood Negative, Urine Nitrite Negative, Urine Bilirubin Negative, Urine Urobilinogen Normal, Ur Leukocyte Esterase Negative, Urine RBC 0 SEEN, Urine WBC 0-5 SEEN, Ur Squamous Epith Cells 0 SEEN, Urine Bacteria 0 SEEN, Urine Mucus 0 SEEN 04/02/21 20:21: Urine Creatinine 77.20 04/02/21 20:21: Ur Random Sodium 62 04/02/21 23:42: POC Glucose 83 04/02/21 : Sodium 138, Potassium 4.8, Chloride 110 H, Carbon Dioxide 20.0 L, Anion Gap 8, BUN 98 H, Creatinine 3.22 H, Estim Creat Clear Calc 23.48, Est GFR (MDRD) Af Amer 25 L, Est GFR (MDRD) Non-Af 21 L, BUN/Creatinine Ratio 30.4 H, Glucose 148 H, Calcium 8.4 L, Total Bilirubin 0.20, AST 18, ALT 25, Alkaline Phosphatase 117, Troponin I High Sens 9, Total Protein 7.0, Albumin 3.5, Globulin 3.5, Albumin/Globulin Ratio 1.0 04/02/21 : WBC 7.1, RBC 3.13 L, Hgb 8.7 L, Hct 26.5 L, MCV 84.7, MCH 27.8, MCHC 32.8, RDW Std Deviation 40.0, RDW Coeff of Harry 13.1, Plt Count 238, MPV 9.3, Immature Gran % (Auto) 0.700, Neut % (Auto) 61.4, Lymph % (Auto) 27.7, Vernon % (Auto) 7.2, Eos % (Auto) 2.7, Baso % (Auto) 0.3, Absolute Neuts (auto) 4.3, Absolute Lymphs (auto) 1.96, Nucleated RBC % 0 04/03/21 06:21: WBC 7.2, RBC 3.00 L, Hgb 8.4 L, Hct 25.9 L, MCV 86.3, MCH 28.0, MCHC 32.4, RDW Std Deviation 40.4, RDW Coeff of Harry 12.8, Plt Count 232, MPV 10.0, Immature Gran % (Auto) 0.700, Neut % (Auto) 71.2 H, Lymph % (Auto) 19.9, Vernon % (Auto) 5.9, Eos % (Auto) 2.2, Baso % (Auto) 0.1, Absolute Neuts (auto) 5.1, Absolute Lymphs (auto) 1.43, Nucleated RBC % 0 04/03/21 06:23: POC Glucose 98 Micro: Microbiology 04/02/21 19:30 Nasal Secretion SARS-CoV-2 Antigen (Rapid) - Final Radiography Diagnostic Testing: Radiology Impression Chest X-Ray 04/02/21 19:55 IMPRESSION: No acute radiographic abnormalities. Electronically Signed: Miguel Ram MD at 20:31 EDT Tel , Service support , Physical Exam Narrative General: Alert, Oriented x3, Cooperative HEENT: Atraumatic, PERRLA, EOMI, Normocephalic Oral: No Gingival or Mucosal Lesions/ Ulcerations Neck: Supple, No JVD, Negative Carotid Bruits Lungs: Air entry diminished in bilateral lung bases. No crepitation/rhonchi Cardiovascular: Regular rate, Regular Rhythm, Normal S1, Normal S2, No murmurs Abdomen: Bowel Sounds Present, Soft, Non Tender, Non-Distended : No renal angle tenderness. No suprapubic tenderness. Extremities: No edema, Capillary Refill Less than 3 Seconds Skin: No rashes, No breakdown Musculoskeletal: Arthritis in hip and knee joints no Tenderness to Palpation of Joints or Extremities Neurological: Cranial nerves II-XII grossly intact, DTR 2+/4 and Symmetrical, Neuro grossly intact Psych/Mental Status: Flat affect. Assessment & Plan Assessment/Plan (1) Acute kidney injury: PLAN: The patient is a 65 y/o male with multiple comorbidities is admitted for nonspecific symptoms of malaise, fatigue mild headache and back discomfort and found to be acute kidney injury. 1. Acute kidney injury probably progression to ATN with bilateral nonobstructive calyceal stone: Ashley 1.9% suggestive of ATN. Patient not on diuretic. Kidney ultrasound shows mild dilatation of left renal pelvis, no hydronephrosis. Bilateral calyceal stones present but nonobstructive. Improvement in creatinine from 3.2-2.2. Baseline, creatinine 1.53 on 09/17/2020. Monitor kidney function. On IV fluid rehydration. 2. Adult Failure to Thrive: PT/OT/case management consultations for discharge planning. 3. Chronic anemia, normocytic: Admission hemoglobin 8.7, prior baseline 8-10, 4. Diabetes mellitus type II: Hold oral home regimen, continue home insulin regimen, ADA diet, accu checks w/ ISS. 5. History of sick sinus syndrome/complete heart block: Patient status post cardiac pacemaker placement, will request interrogation. 6. History CVA: We will continue patient aspirin, Plavix, statin, hypertensive regimen, continue home insulin regimen with insulin sliding scale and Accu-Cheks. 7. Hypertension: Continue home regimen including amlodipine, hydralazine, metoprolol, holding hydrochlorothiazide given acute kidney injury as noted above, PRN hydralazine. 8. Hyperlipidemia: continue patient on statin therapy. 9. DVT prophylaxis: SCDs, heparin. Charges/Coding Visit Charges Inpatient E&M: 59885 Subs Hosp L2
[2021-04-03 08:02] LABS: AST(SGOT) 15 U/L (15-37); Alanine Aminotransfer ALT/SGPT 25 U/L (16-61); Albumin, Serum 3.2 g/dL (3.2-5.0); Alkaline Phosphatase 98 U/L (45-117); Anion Gap 9 (5-15); BUN 80 mg/dL (7-18); BUN/Creat Ratio 36.4 RATIO (10-20); Calcium,Total 8.6 mg/dL (8.5-10.1); Chloride 112 mmol/L (98-107); EST Glomerular Filtration Rate 32 mL/min (>60); Est Glom Filt Rate - Afr Amer 39 mL/min (>60); Estimated Creatinine Clearance 34.37 ml/min; Globulin 3.2 g/dL (2.2-4.2); Glucose 93 mg/dL (74-106); Potassium 5.1 mmol/L (3.5-5.1); Protein, Total 6.4 g/dL (6.4-8.2); Sodium Level 140 mmol/L (136-145)
[2021-04-03] MEDS: Aspirin 81 MG TAB.CHEW PO (08:44)
[2021-04-03] MEDS: Senna Tablet 1 TABLET PO ×2 (10:47→22:01)
[2021-04-03] MEDS: Metoprolol(XL)Succ 100 MG Tablet PO (10:48)
[2021-04-03] MEDS: Clopidogrel Bisulfate 75 MG Tablet PO (10:48)
[2021-04-03] MEDS: Heparin Injection (Vial) 5,000 UNIT/ML VIAL 5000 UNIT SC ×2 (10:49→22:01)
[2021-04-03] MEDS: amLODIPine 10 MG Tablet PO (10:49)
[2021-04-03 11:15] LABS: Bedside Glucose 140 mg/dL (70-110)
--- NOTE | 2021-04-03 12:10 | CASEMGMT ---
Addendum entered by Jennifer Braun 04/03/21 14:10: Pt has CM thru [facility] and states has 5 meals/week as well as an aide every other day for 3 hours. Pt cannot remember name of CM. Niall GOODEN CM Original Note: BERKLEY RITTER assessment: Face to Face with patient for initial transition planning/care coordination assessment. BERKLEY RITTER introduced self and role at [facility], pt voices understanding and consents to assessment. Pt is lying in bed in no distress. Pt is A/Ox4 and answers all questions appropriately. Care providers, pharmacy, and demographics verified. Presentation: Pt states 'I just don't feel good.' Admitting dx: VENICE PCP: Lance Specialists: Pt states no specialists. [facility]erred [facility]acy[facility] Insurance: LILLIAN Prescription Benefit: LILLIAN Living Will/HPOA: Pt states does not have LW/HPOA and declines AD info. LNOK: Rebecca Lerma, sister Living Arrangements: Pt states lives alone in [address]st level apt and states no concerns at home. Pt states is independent with ADL's. Transportation: Pt states drives self and states no transportation concerns. DME/HHC: Pt states has the following DME: cane, shower chair, and grab bars. Pt states no need for any further DME. Pt states no hx of HHC or SNF. Pt states no concerns with going home at time of discharge. Pt is on disability. Pt states does not smoke cigarettes or drink ETOH. Pt states no further concerns/needs. CM to follow PT/OT and for any further discharge planning/needs. Advised pt to ask for CM if any further questions/concerns/needs arise, voices understanding. Pt Goal: Home Plan: Home Niall GOODEN CM
[2021-04-03 16:15] LABS: Bedside Glucose 99 mg/dL (70-110)
[2021-04-03] MEDS: Atorvastatin Calcium 80 MG Tablet PO (22:01)
[2021-04-03] MEDS: Insulin Lispro 100 UNIT/ML INSULN.PEN SC (22:02)
[2021-04-03 22:31] LABS: Bedside Glucose 204 mg/dL (70-110)
[2021-04-04] VITALS (8 sets, daily range): BP systolic 122–173; BP diastolic 58–96; PULSE 67–78; RESP 18; TEMP 36.7–36.9; O2SAT 94–99
[2021-04-04] MEDS: 0.9% Normal Saline 1,000 ML 125 ML IV ×2 (03:53→11:12)
[2021-04-04] MEDS: hydrALAZINE 50 MG Tablet PO ×2 (07:07→14:05)
[2021-04-04 07:15] LABS: Bedside Glucose 94 mg/dL (70-110)
[2021-04-04] MEDS: Aspirin 81 MG TAB.CHEW PO (07:30)
[2021-04-04] MEDS: Senna Tablet 1 TABLET PO (08:53)
[2021-04-04] MEDS: amLODIPine 10 MG Tablet PO (08:53)
[2021-04-04] MEDS: Clopidogrel Bisulfate 75 MG Tablet PO (08:54)
[2021-04-04] MEDS: Metoprolol(XL)Succ 100 MG Tablet PO (08:54)
[2021-04-04] MEDS: Heparin Injection (Vial) 5,000 UNIT/ML VIAL 5000 UNIT SC (08:54)
[2021-04-04 09:32] LABS: Hematocrit 26.7 % (40-54); Hemoglobin 8.4 g/dL (13.0-16.5); Mean Corp Hgb Conc 31.5 g/dL (32-36); Mean Corpuscular Hgb 27.8 pg (27.0-32.0); Mean Corpuscular Volume 88.4 fL (80-94); Mean Platelet Vol. 10.2 fl (6.2-12.0); Platelet Count 240 K/mm3 (150-450); RBC Distribution Width CV 12.8 % (11.6-14.6); RBC Distribution Width SD 41.3 fl (35.1-43.9); Red Blood Count 3.02 M/mm3 (4.6-6.2); White Blood Count 7.1 K/mm3 (4.4-11.0)
[2021-04-04 09:41] LABS: Anion Gap 9 (5-15); BUN 81 mg/dL (7-18); BUN/Creat Ratio 37.7 RATIO (10-20); Calcium,Total 8.3 mg/dL (8.5-10.1); Chloride 115 mmol/L (98-107); Creatinine, Serum 2.15 mg/dL (0.70-1.30); EST Glomerular Filtration Rate 33 mL/min (>60); Est Glom Filt Rate - Afr Amer 40 mL/min (>60); Estimated Creatinine Clearance 35.17 ml/min; Glucose 95 mg/dL (74-106); Magnesium 2.1 mg/dL (1.6-2.6); Potassium 5.3 mmol/L (3.5-5.1); Sodium Level 140 mmol/L (136-145)
[2021-04-04] MEDS: Insulin Lispro 100 UNIT/ML INSULN.PEN SC (11:11)
[2021-04-04 11:20] LABS: Bedside Glucose 167 mg/dL (70-110)
--- NOTE | 2021-04-04 13:03 | PCM.DC ---
Discharge Instructions Diet Discharge Diet: 2000 mg Sodium Diet Activity Discharge Activity: Return to Normal Activity, May Shower and May Not Shower Weight Bearing Status: Weight bearing as tolerated Dressing / Incision Call your doctor if you observe: Fever of 101 or Higher, Coldness, Increased Pain, Numbness or Tingling, Change in Color, Inability to urinate, Inability to have a bowel movement, Shortness of breath, Dizziness, Fainting spells, Swelling in the ankles, Chest pain, Prolonged hiccupping, Increased palpitations (irregular heartbeat), Calf discomfort and Uncontrolled pain Follow Up Care Test Results: Test results from this visit will be discussed in further detail at your follow-up appointment, if applicable. Discharge Plan Admission Admit Date/Time: 04/02/21 21:48 Primary Reason for Your Visit: Acute kidney injury Attending Provider: Roberto Whitmore Primary Care Provider: Vera Lucas Instructions Patient Instructions: Acute Kidney Failure Dc Discharge Orders/Prescriptions Prescriptions: Continued multivitamin 0 tablet 1 tab PO DAILY RF: 0 atorvastatin 80 MG tablet 80 mg PO DAILY RF: 0 aspirin 81 MG tablet,chewable 81 mg PO DAILY RF: 0 metoprolol succinate 100 MG tablet extended release 24 hr 100 mg PO DAILY RF: 0 clopidogrel 75 MG tablet 75 mg PO DAILY RF: 0 amlodipine 5 mg tablet 10 mg PO DAILY RF: 0 sennosides 8.6 MG tablet 8.6 mg PO BID RF: 0 insulin glargine 100 UNIT/ML insulin pen 25 units SQ QHS RF: 0 lidocaine 4 % adhesive patch,medicated 1 patch topical TID PRN (Reason: pain) Qty: 10 RF: 0 Changed hydrochlorothiazide 12.5 mg capsule 12.5 mg PO DAILY Qty: 60 RF: 3 hydralazine 50 mg tablet 75 mg PO TID Qty: 0 RF: 0 Held metformin 500 mg tablet extended release 24 hr 1,000 mg PO DAILY RF: 0 Hold Instructions: Hold for 1 week Referrals / Follow Up: Vera Lucas MD [Primary Care Provider] - Disposition Disposition (needs filled in before D/C Order can be placed): Home Health Service
--- NOTE | 2021-04-04 13:04 | DS.PCM_ITS ---
Providers Date of Admission: 04/02/21 Date of Discharge: 04/04/21 Primary Care Physician: Dr. Vera Lucas MD Reason For Visit: VENICE Diagnosis Discharge Diagnosis (1) Acute kidney injury: Status: Acute Code(s): N17.9 - Acute kidney failure, unspecified Medications at Discharge Home Medications aspirin 81 mg PO DAILY 03/04/19 atorvastatin 80 mg PO DAILY 03/04/19 multivitamin 1 tab PO DAILY 03/04/19 clopidogrel 75 mg PO DAILY 04/25/19 metoprolol succinate 100 mg PO DAILY 04/25/19 insulin glargine 25 units SQ QHS 09/23/19 sennosides 8.6 mg PO BID 09/23/19 amlodipine 5 mg tablet 10 mg PO DAILY tab 05/13/20 lidocaine 1 patch TOPICAL TID PRN #10 ea 12/14/20 hydralazine 75 mg PO TID #0 tab 04/04/21 hydrochlorothiazide 12.5 mg PO DAILY #60 cap 04/04/21 Hospital Course Summary of Care Provided Hospital Course: The patient is a 65 y/o male with multiple comorbidities is admitted for nonspecific symptoms of malaise, fatigue mild headache and back discomfort and found to be acute kidney injury. 1. Acute kidney injury probably progression to ATN with bilateral nonobstructive calyceal stone: Ashley 1.9% suggestive of ATN. Patient not on diuretic. Kidney ultrasound shows mild dilatation of left renal pelvis, no hydronephrosis. Bilateral calyceal stones present but nonobstructive. Improvement in creatinine from 3.2-2.2. Baseline, creatinine 1.53 on 09/17/2020. Monitor kidney function. Patient creatinine is baseline, 2.15 with no significant change since yesterday. [place] nephrology is consulted. Discussed with the malt liquors sales representative and Metformin is discontinued. Hold HCTZ for now probably it won't work and follow- up with Dr. Mahmood, the malt liquors sales representative in 1 week with BMP. It seems gradual worsening of kidney failure probably new baseline is about 2.2. 2. Adult Failure to Thrive: PT/OT/case management consultations for discharge planning. 3. Chronic anemia, normocytic: Admission hemoglobin 8.7, prior baseline 8-10, 4. Diabetes mellitus type II: Hold oral home regimen, continue home insulin regimen, ADA diet, accu checks w/ ISS. 5. History of sick sinus syndrome/complete heart block: Patient status post cardiac pacemaker placement, will request interrogation. 6. History CVA: We will continue patient aspirin, Plavix, statin, hypertensive regimen, continue home insulin regimen with insulin sliding scale and Accu- Cheks. 7. Hypertension: Continue home regimen including amlodipine, hydralazine, metoprolol, holding hydrochlorothiazide given acute kidney injury as noted above, PRN hydralazine. 8. Hyperlipidemia: continue patient on statin therapy. 9. DVT prophylaxis: SCDs, heparin. Physical Exam Narrative No acute issues overnight. No fever. Blood pressure is elevated. Advised to hold HCTZ for 3 days and resume at lower dose General: Alert, Oriented x3, Cooperative HEENT: Atraumatic, PERRLA, EOMI, Normocephalic Oral: No Gingival or Mucosal Lesions/ Ulcerations Neck: Supple, No JVD, Negative Carotid Bruits Lungs: Air entry diminished in bilateral lung bases. No crepitation/rhonchi Cardiovascular: Regular rate, Regular Rhythm, Normal S1, Normal S2, No murmurs Abdomen: Bowel Sounds Present, Soft, Non Tender, Non-Distended : No renal angle tenderness. No suprapubic tenderness. Extremities: No edema, Capillary Refill Less than 3 Seconds Skin: No rashes, No breakdown Musculoskeletal: Arthritis in hip and knee joints no Tenderness to Palpation of Joints or Extremities Neurological: Cranial nerves II-XII grossly intact, DTR 2+/4 and Symmetrical, Neuro grossly intact Psych/Mental Status: Flat affect. Weight / BMI Weight Weight: 157 lb Body Mass Index (BMI) 24.6 ABG / Lab / Microbiology Data Result Diagrams: 04/04/21 09:12 04/04/21 09:12 Laboratory: Laboratory Results - last 24 hr 04/03/21 16:09: POC Glucose 99 04/03/21 21:59: POC Glucose 204 H 04/04/21 07:06: POC Glucose 94 04/04/21 09:12: WBC 7.1, RBC 3.02 L, Hgb 8.4 L, Hct 26.7 L, MCV 88.4, MCH 27.8, MCHC 31.5 L, RDW Std Deviation 41.3, RDW Coeff of Harry 12.8, Plt Count 240, MPV 10.2 04/04/21 09:12: Sodium 140, Potassium 5.3 H, Chloride 115 H, Carbon Dioxide 16.0 L, Anion Gap 9, BUN 81 H, Creatinine 2.15 H, Estim Creat Clear Calc 35.17, Est GFR (MDRD) Af Amer 40 L, Est GFR (MDRD) Non-Af 33 L, BUN/Creatinine Ratio 37.7 H , Glucose 95, Calcium 8.3 L, Magnesium 2.1 04/04/21 11:10: POC Glucose 167 H Microbiology: Microbiology 04/02/21 19:30 Nasal Secretion SARS-CoV-2 Antigen (Rapid) - Final Radiography Diagnostic Testing: Radiology Impression Renal Ultrasound 04/03/21 05:55 IMPRESSION: Mild dilatation of the left renal pelvis. There is no hydronephrosis. There are bilateral calyceal stones present. There are bilateral ureteral jets within the bladder. at 1331 Reported and signed by: Josias Jo MD Electronically Signed: Josias Jo MD at 13:30 EDT Tel , Service support , Meaningful Use Info Meaningful Use Diagnoses (Choose all that apply): None applicable Discharge Plan Admission Admit Date/Time: 04/02/21 21:48 Primary Reason for Your Visit: Acute kidney injury Attending Provider: Roberto Whitmore Primary Care Provider: Vera Lucas Consulting Providers: Angely Santiago Instructions Patient Instructions: Acute Kidney Failure Dc Discharge Orders/Prescriptions Prescriptions: Continued multivitamin 0 tablet 1 tab PO DAILY RF: 0 atorvastatin 80 MG tablet 80 mg PO DAILY RF: 0 aspirin 81 MG tablet,chewable 81 mg PO DAILY RF: 0 metoprolol succinate 100 MG tablet extended release 24 hr 100 mg PO DAILY RF: 0 clopidogrel 75 MG tablet 75 mg PO DAILY RF: 0 amlodipine 5 mg tablet 10 mg PO DAILY RF: 0 sennosides 8.6 MG tablet 8.6 mg PO BID RF: 0 insulin glargine 100 UNIT/ML insulin pen 25 units SQ QHS RF: 0 lidocaine 4 % adhesive patch,medicated 1 patch topical TID PRN (Reason: pain) Qty: 10 RF: 0 Changed hydrochlorothiazide 12.5 mg capsule 12.5 mg PO DAILY Qty: 60 RF: 3 Hold Instructions: Hold for 1 week hydralazine 50 mg tablet 75 mg PO TID Qty: 0 RF: 0 Discontinued metformin 500 mg tablet extended release 24 hr 1,000 mg PO DAILY RF: 0 Hold Instructions: Hold for 1 week Referrals / Follow Up: Vera Lucas MD [Primary Care Provider] - Wallace Mahmood MD [STAFF PHYSICIAN] - Within 1 Week (Follow-up BMP in 1 week) Disposition Disposition (needs filled in before D/C Order can be placed): Home Health Service Charges/Coding Visit Charges Inpatient E&M: 21809 Disch Hosp
--- NOTE | 2021-04-04 14:05 | PCM.CONS.R ---
Assessment & Plan Assessment/Plan (1) Acute kidney injury: PLAN: The patient likely has a component of prerenal azotemia on admission. Renal function did improve with IV fluid. Creatinine decreased from 3.22 mg/dL down to 2.15 mg/dL in the last 2 days. There is no overt uremic signs or symptoms. He has been eating and drinking well per RN. Therefore, I am okay with the patient being discharged. I will arrange for outpatient follow-up with Dr. Mahmood in the office within a week. I have his cell phone number, and I will have my office call the patient to arrange for the follow-up. Since we do not know the trajectory of renal function yet, I will have the patient check renal function panel again in 2 to 3 days. For now, I would hold metformin and hydrochlorothiazide until he can be seen in the office. (2) Chronic kidney disease, stage 3b: PLAN: Baseline serum creatinine is unclear. Serum creatinine was already 1.53 mg/dL in September 2020. The patient may have had a progressive loss of renal function due to diabetic kidney disease. As mentioned above, because we do not know what the trajectory of renal function will be yet, I will hold off on restarting metformin since GFR may eventually be chronically below 30 mL/min. (3) Essential (primary) hypertension: PLAN: BP is still high but not severely [id number]. I agree with increasing hydralazine. Since GFR is close to 30 or less, I would hold off on restarting hydrochlorothiazide especially since the patient has recently been volume depleted. If the blood pressure remains above 140/90 within a week after increasing hydralazine, we may need to add back loop diuretic instead of hydrochlorothiazide for blood pressure control. I will have my office call the patient to arrange office follow-up within a week with Dr. Mahmood. (4) Hyperkalemia: PLAN: Potassium is mildly increased at 5.3. He is not hyperglycemic. However, he does have some metabolic acidosis which will need to be followed. Repeat renal function panel as outpatient in 2 to 3 days. (5) Metabolic acidosis: PLAN: Serum bicarbonate level was 16 mmol/L. There is no diarrhea. There is no anion gap. Therefore, this is most likely due to renal dysfunction. We will repeat serum bicarbonate level in 2 to 3 days as mentioned above with renal function panel. If serum bicarbonate level remains below 20 mmol/L, we can start sodium bicarbonate supplement as outpatient. (6) Anemia: PLAN: The patient has chronic anemia. GFR is still above 30 mL/min, so there is no need for PAULA. He will need anemia work-up as outpatient. HPI Consult Data Date of Consult: 04/04/21 HPI Narrative Reason for Consultation: VENICE on CKD. HPI Narrative: LOU JULIEN, is a 65-year-old man with past history of type 2 diabetes mellitus, hypertension, hyperlipidemia, sick sinus syndrome status post permanent pacemaker placement, CVA, and anemia. The patient presented to the hospital on 04/02/2021 with a few days history of poor oral intake, fatigue and malaise. The patient had been on hydrochlorothiazide and Metformin prior to admission. He denies abdominal pain, diarrhea, or nausea. Nephrology is asked to see the patient because of persistently elevated serum creatinine at 2.15 mg/dL today. However, on admission, his serum creatinine was 3.22 mg/dL on 04/02/2021. Review of record reveals that his creatinine has been elevated in the past. Serum creatinine was 1.53 mg/dL in September 2020. The patient has not been seen by nephrology before. He has had diabetes mellitus for more than 10 years. The patient is not sure how well controlled his blood sugar is. He does not know what his hemoglobin A1c result is. The patient denies current chest pain, shortness of breath, nausea, vomiting, or diarrhea. In fact, he is constipated. He denies chronic use of NSAIDs at home. There has been no history of urinary frequency, urgency, hesitancy or incontinence. He denies gross hematuria. Ultrasound of the kidney done on 03/26/2021 showed normal-sized kidneys bilaterally. There is no hydronephrosis. [facility] Medical History (Updated 04/04/21 @ 14:[address] Angely Santiago MD) Complete heart block (02/2019) CVA (cerebral vascular accident) (02/2019) Diabetes mellitus DVT (deep venous thrombosis) Essential (primary) hypertension Former smoker HLD (hyperlipidemia) Kidney disease Pacemaker Paroxysmal supraventricular tachycardia (06/2017) Sick sinus syndrome Sinus pause Tachyarrhythmia Type II diabetes mellitus, uncontrolled Home Medications aspirin 81 mg PO DAILY 03/04/19 [History Last Taken 09/22/19] atorvastatin 80 mg PO DAILY 03/04/19 [History Last Taken 09/22/19] multivitamin 1 tab PO DAILY 03/04/19 [History Last Taken 09/22/19] clopidogrel 75 mg PO DAILY 04/25/19 [History Last Taken 09/22/19] metoprolol succinate 100 mg PO DAILY 04/25/19 [History Last Taken 09/22/19] insulin glargine 25 units SQ QHS 09/23/19 [History Last Taken 09/21/19] sennosides 8.6 mg PO BID 09/23/19 [History Last Taken 09/22/19] amlodipine 5 mg tablet 10 mg PO DAILY tab 05/13/20 [History Last Taken Unknown] lidocaine 1 patch TOPICAL TID PRN #10 ea 12/14/20 [Rx Last Taken Unknown] hydralazine 75 mg PO TID #0 tab 04/04/21 [Rx Last Taken Unknown] hydrochlorothiazide 12.5 mg PO DAILY #60 cap 04/04/21 [Rx Last Taken Unknown] Allergy/AdvReac Type Severity Reaction Status Date / Time metformin [From Glucophage] AdvReac Diarrhea Verified 04/02/21 17:15 Family History (Updated 04/03/21 @ 01:[address] Catherine Saravia MD) Mother Cancer Father Heart disease Hypertension Myocardial infarction Surgical History History of carpal tunnel release History of permanent cardiac pacemaker placement (03/05/19) Social History (Updated 04/03/21 @ 01:[address] Catherine Saravia MD) household members: none Smoking Status: Former smoker Smokeless tobacco user: other alcohol intake: never substance use type: does not use ROS ROS Narrative As per HPI. 10 out of 10 review of system was completed and are otherwise noncontributory. Physical Exam Narrative General: Alert and oriented x3 in no apparent distress. HEENT: Normocephalic, atraumatic. Mucous membrane moist without erythema. PERRLA, EOMI. Hearing is intact. Neck: Supple, no JVD. Heart: Normal S1, S2. No rubs, murmurs or gallops. Lungs: Clear to auscultation bilaterally. Abdomen: Normal bowel sound, soft, nontender, no guarding or rebound. Extremity: No clubbing, cyanosis or edema. Full range of motion. Skin: No rash. Skin is warm and dry. Neurologic: No focal neurologic deficit. Cranial nerves II through XII are grossly intact. Psychiatric: Normal mood and affect. Lab / Micro Data Result Diagrams: 04/04/21 09:12 04/04/21 09:12 Labs: Laboratory Results - last 24 hr 04/03/21 16:09: POC Glucose 99 04/03/21 21:59: POC Glucose 204 H 04/04/21 07:06: POC Glucose 94 04/04/21 09:12: WBC 7.1, RBC 3.02 L, Hgb 8.4 L, Hct 26.7 L, MCV 88.4, MCH 27.8, MCHC 31.5 L, RDW Std Deviation 41.3, RDW Coeff of Harry 12.8, Plt Count 240, MPV 10.2 04/04/21 09:12: Sodium 140, Potassium 5.3 H, Chloride 115 H, Carbon Dioxide 16.0 L, Anion Gap 9, BUN 81 H, Creatinine 2.15 H, Estim Creat Clear Calc 35.17, Est GFR (MDRD) Af Amer 40 L, Est GFR (MDRD) Non-Af 33 L, BUN/Creatinine Ratio 37.7 H, Glucose 95, Calcium 8.3 L, Magnesium 2.1 04/04/21 11:10: POC Glucose 167 H
--- NOTE | 2021-04-05 14:35 | CASEMGMT ---
BERKLEY RITTER Discharge Follow Up Phone Call: ZURDOE: 11 Strata: 3 Call Date: 04/05/21 Discharge Date: 04/04/21 Time of Call:[id number] Duration:< 1 min Admitting Dx: VENICE BERKLEY RITTER attempted to complete follow up phone call after recent hospitalization. Pt has a voicemail box that is not set up, unable to leave a message.
== END 2021-04-04 14:09 | disposition home health service (06) | DRG 469 ==
LOC: ED 22:02 → MS3 22:18
PROVIDERS: Admitting Provider Family Medicine; Emergency Provider Emergency Medicine; PCP Internal Medicine; Visit Provider Internal Medicine
DX: N17.0 Acute kidney failure with tubular necrosis (principal); E87.5 Hyperkalemia; D64.9 Anemia, unspecified; R62.7 Adult failure to thrive; N20.0 Calculus of kidney; I12.9 Hypertensive chronic kidney disease with stage 1 through stage 4 chronic kidney disease, or unspecified chronic kidney disease; N18.9 Chronic kidney disease, unspecified; E11.22 Type 2 diabetes mellitus with diabetic chronic kidney disease; E11.65 Type 2 diabetes mellitus with hyperglycemia; I44.2 Atrioventricular block, complete; E78.5 Hyperlipidemia, unspecified; I25.2 Old myocardial infarction; Z86.73 Personal history of transient ischemic attack (TIA), and cerebral infarction without residual deficits; Z72.0 Tobacco use; Z79.4 Long term (current) use of insulin; Z82.49 Family history of ischemic heart disease and other diseases of the circulatory system; Z95.0 Presence of cardiac pacemaker
CPT/HCPCS: 36415; 71045; 76770; 80048; 80053; 81001; 82570; 82962; 83735; 84300; 84484; 85025; 85027; 87426; 93005; 99251; 99285; J7030; A4216; G0463

== ENCOUNTER 2021-07-06 16:57 | Emergency (ER) | payer MEDICAID, SELFPAY ==
[2021-07-06 16:58] VITALS: BP 157/79; PULSE 79; RESP 18; TEMP 37.3; O2SAT 97; BMI 25.1
--- NOTE | 2021-07-06 19:53 | ED.RN ---
payne catheter was placed by Kalina fulelr, under supervison of this nurse.
[2021-07-06 20:01] LABS: Bacteria 0 SEEN /hpf (None Seen); Mucous, Urine 0 SEEN /hpf (<or=2+); Red Blood Cells-Urine 0 SEEN /hpf (0-5); White Blood Cells 0 SEEN /hpf (0-5)
[2021-07-06 20:02] LABS: Absolute Lymphocyte Count 1.69 X10^3/uL (0.83-4.51); Absolute Neutrophil Count 4.9 X10^3/uL (2.0-7.7); Basophil# 0.03 X10^3/uL; Basophil% 0.4 % (0-1); Eosinophil# 0.19 X10^3/uL; Eosinophils% 2.5 % (0-5); Hemoglobin 9.8 g/dL (13.0-16.5); Lymphocyte # 1.69 X10^3/ul (0.83-4.51); Lymphocyte % 22.6 % (19-41); Mean Corp Hgb Conc 32.7 g/dL (32-36); Mean Corpuscular Hgb 26.6 pg (27.0-32.0); Mean Corpuscular Volume 81.5 fL (80-94); Mean Platelet Vol. 9.6 fl (6.2-12.0); Monocyte# 0.57 X10^3/uL; Monocyte% 7.6 % (0-10); NRBC Flagged by Analyzer 0 % (0-5); Neutrophil # 4.91 X10^3/uL (2.7-7.7); Neutrophil % 65.8 % (47-70); Platelet Count 275 K/mm3 (150-450); RBC Distribution Width CV 13.1 % (11.6-14.6); RBC Distribution Width SD 38.9 fl (35.1-43.9); Red Blood Count 3.68 M/mm3 (4.6-6.2); White Blood Count 7.5 K/mm3 (4.4-11.0)
[2021-07-06 20:03] LABS: Color, Urine Yellow (Yellow); Glucose, Dipstick 100 mg/dl (Normal); Ketone-Dipstick Negative (Negative); Leukocyte Esterase-Dipstick Negative /ul (Negative); Nitrite-Dipstick Negative (Negative); Occult Blood-Urine Negative /ul (Negative); Protein-Dipstick 500 mg/dl (Negative); Urine Bilirubin Dipstick Negative (Negative); Urine Clarity Clear (Clear); Urine Urobilinogen Normal (Normal)
--- NOTE | 2021-07-06 20:04 | EDS_ITS ---
HPI History of Present Illness Chief Complaint: Complaint Narrative Narrative: 65-year-old male presenting with inability to urinate. He states he has not been able to void since last night. Patient has suprapubic pressure. Patient denies any dysuria prior to this. He does not have a history of urinary retention. He states he feels otherwise well. No constipation or diarrhea. No fever or chills. No nausea or vomiting. [facility] Medical History Complete heart block (02/2019) CVA (cerebral vascular accident) (02/2019) Diabetes mellitus DVT (deep venous thrombosis) Essential (primary) hypertension Former smoker HLD (hyperlipidemia) Kidney disease Pacemaker Paroxysmal supraventricular tachycardia (06/2017) Sick sinus syndrome Sinus pause Tachyarrhythmia Type II diabetes mellitus, uncontrolled Home Medications aspirin 81 mg PO DAILY 03/04/19 [History Last Taken 09/22/19] atorvastatin 80 mg PO DAILY 03/04/19 [History Last Taken 09/22/19] multivitamin 1 tab PO DAILY 03/04/19 [History Last Taken 09/22/19] clopidogrel 75 mg PO DAILY 04/25/19 [History Last Taken 09/22/19] metoprolol succinate 100 mg PO DAILY 04/25/19 [History Last Taken 09/22/19] insulin glargine 25 units SQ QHS 09/23/19 [History Last Taken 09/21/19] sennosides 8.6 mg PO BID 09/23/19 [History Last Taken 09/22/19] amlodipine 5 mg tablet 10 mg PO DAILY tab 05/13/20 [History Last Taken Unknown] lidocaine 1 patch TOPICAL TID PRN #10 ea 12/14/20 [Rx Last Taken Unknown] hydralazine 75 mg PO TID #0 tab 04/04/21 [Rx Last Taken Unknown] hydrochlorothiazide 12.5 mg PO DAILY #60 cap 04/04/21 [Rx Last Taken Unknown] tamsulosin [Flomax] 0.4 mg PO DAILY #14 cap 07/06/21 [Rx Last Taken Unknown] Allergy/AdvReac Type Severity Reaction Status Date / Time metformin [From Glucophage] AdvReac Diarrhea Verified 07/06/21 17:00 Family History Mother Cancer Father Heart disease Hypertension Myocardial infarction Surgical History History of carpal tunnel release History of permanent cardiac pacemaker placement (03/05/19) Social History household members: none Smoking Status: Former smoker Smokeless tobacco user: other alcohol intake: never substance use type: does not use ROS ROS ED Constitutional Constitutional ED: Denies chills or fever(s) Eyes Eyes: Denies blurry vision or change in vision ENT ENT ED: Denies rhinorrhea or sore throat Cardiovascular Cardiovascular: Denies chest pain or palpitations Respiratory/Chest Respiratory/Chest: Denies cough or dyspnea Gastrointestinal Gastrointestinal: Denies constipation, diarrhea, nausea or vomiting Genitourinary Genitourinary ED: Reports other Details: Inability to urinate ; Denies dysuria or hematuria Musculoskeletal Musculoskeletal: Denies arthralgias or myalgias Integumentary Denies rash Neurologic Neurologic: Denies headache(s) or paresthesias EXAM Physical Exam Const Vital Signs: 07/06/21 16:58 Temperature 99.1 F Temperature Source Temporal Pulse Rate 79 Respiratory Rate 18 Blood Pressure 157/79 H Blood Pressure Mean 105 Pulse Ox 97 Oxygen Delivery Method Room Air Positive well nourished General Appearance ED: NAD; Negative for pallor HEENT Reports moist mucous membranes normocephalic and atraumatic Eyes PERRL and EOMs intact bilaterally Resp normal respiratory effort and clear to auscultation bilaterally Cardio regular rate and regular rhythm Back/Spine no CVA tenderness Neuro oriented x3 Sensorium / Orientation: alert Psych mental status grossly normal Skin General Skin Exam: Negative for jaundice or pallor MDM MDM MDM Narrative Medical decision making narrative: Patient presenting with urinary tension since yesterday. He did not have any dysuria or urinary symptoms prior to this. His urinalysis is negative for infection. CBC shows no leukocytosis and his hemoglobin is stable at 9.8. Creatinine is slightly increased at 2.44 however the patient does have stage III kidney disease. After Newell catheter is placed the patient put out about a liter of urine. He feels improved. He will be sent home with a leg bag and follow-up with Dr. Rogers. He will be started on Flomax. He is counseled to drink plenty of water. Patient stable for discharge at this time. Impression: 1. Urinary retention 2. Acute kidney injury Lab Data Labs: Laboratory Results - last 24 hr 07/06/21 07/06/21 07/06/21 19:38 19:42 19:42 WBC 7.5 RBC 3.68 L Hgb 9.8 L Hct 30.0 L MCV 81.5 MCH 26.6 L MCHC 32.7 RDW Std Deviation 38.9 RDW Coeff of Harry 13.1 Plt Count 275 MPV 9.6 Immature Gran % (Auto) 1.100 H Neut % (Auto) 65.8 Lymph % (Auto) 22.6 [place] % (Auto) 7.6 Eos % (Auto) 2.5 Baso % (Auto) 0.4 Absolute Neuts (auto) 4.9 Absolute Lymphs (auto) 1.69 Nucleated RBC % 0 Sodium 139 Potassium 4.6 Chloride 112 H Carbon Dioxide 19.0 L Anion Gap 8 BUN 56 H Creatinine 2.44 H Estim Creat Clear Calc 30.99 Est GFR (MDRD) Af Amer 35 L Est GFR (MDRD) Non-Af 29 L BUN/Creatinine Ratio 23.0 H Glucose 175 H Calcium 8.4 L Urine Color Yellow Urine Clarity Clear Urine pH 5.0 Ur Specific [place] 1.020 Urine Protein 500 H Urine Glucose (UA) 100 H Urine Ketones Negative Urine Occult Blood Negative Urine Nitrite Negative Urine Bilirubin Negative Urine Urobilinogen Normal Ur Leukocyte Esterase Negative Urine RBC 0 SEEN Urine WBC 0 SEEN Ur Squamous Epith Cells 0-5 SEEN Urine Bacteria 0 SEEN Urine Mucus 0 SEEN Discharge Plan Triage Chief Complaint: Complaint ED Provider: Mika Mohan Dx/Rx/DC Orders Instructions: ED Urinary Retention, Male Prescriptions: New tamsulosin [Flomax] 0.4 mg capsule 0.4 mg PO DAILY Qty: 14 RF: 0 No Action multivitamin 0 tablet 1 tab PO DAILY RF: 0 atorvastatin 80 MG tablet 80 mg PO DAILY RF: 0 aspirin 81 MG tablet,chewable 81 mg PO DAILY RF: 0 metoprolol succinate 100 MG tablet extended release 24 hr 100 mg PO DAILY RF: 0 clopidogrel 75 MG tablet 75 mg PO DAILY RF: 0 amlodipine 5 mg tablet 10 mg PO DAILY RF: 0 sennosides 8.6 MG tablet 8.6 mg PO BID RF: 0 insulin glargine 100 UNIT/ML insulin pen 25 units SQ QHS RF: 0 lidocaine 4 % adhesive patch,medicated 1 patch topical TID PRN (Reason: pain) Qty: 10 RF: 0 hydrochlorothiazide 12.5 mg capsule 12.5 mg PO DAILY Qty: 60 RF: 3 Hold Instructions: Hold for 1 week hydralazine 50 mg tablet 75 mg PO TID Qty: 0 RF: 0 Primary Care Provider: Vera Lucas Referrals: Vera Lucas MD [Primary Care Provider] - Timothy Rogers MD [STAFF PHYSICIAN] - As soon as possible Disposition Disposition: Home, Self Care
[2021-07-06 20:08] LABS: Squamous Epithelial Cells - UA 0-5 SEEN /hpf (0-5)
[2021-07-06 20:16] LABS: Anion Gap 8 (5-15); BUN 56 mg/dL (7-18); Calcium,Total 8.4 mg/dL (8.5-10.1); Chloride 112 mmol/L (98-107); Creatinine, Serum 2.44 mg/dL (0.70-1.30); EST Glomerular Filtration Rate 29 mL/min (>60); Est Glom Filt Rate - Afr Amer 35 mL/min (>60); Estimated Creatinine Clearance 30.99 ml/min; Glucose 175 mg/dL (74-106); Potassium 4.6 mmol/L (3.5-5.1); Sodium Level 139 mmol/L (136-145)
[2021-07-06] MEDS: Tamsulosin HCl 0.4 MG Capsule PO (21:38)
== END 2021-07-06 21:38 | disposition home or self-care (01) ==
PROVIDERS: Emergency Provider Student in an Organized Health Care Education/Training Program; PCP Internal Medicine
DX: R33.9 Retention of urine, unspecified (principal); N17.9 Acute kidney failure, unspecified; Z95.0 Presence of cardiac pacemaker; Z87.891 Personal history of nicotine dependence
CPT/HCPCS: 51702; 80048; 81001; 85025; 99285; A4216

== ENCOUNTER 2021-08-02 16:40 | Emergency (ER) | payer MEDICAID, SELFPAY ==
[2021-08-02 16:40] VITALS: BP 147/125; PULSE 80; RESP 14; TEMP 36.8; O2SAT 96; BMI 25.9
== END 2021-08-02 18:10 | disposition left against medical advice (07) ==
LOC: ED 19:08
PROVIDERS: PCP Internal Medicine
DX: T83.038A Leakage of other urinary catheter, initial encounter (principal); Z53.21 Procedure and treatment not carried out due to patient leaving prior to being seen by health care provider

== ENCOUNTER 2021-10-04 10:50 | Outpatient (CLI) | payer MEDICAID, SELFPAY ==
--- NOTE | 2021-10-04 10:55 | ART_ITS ---
Reason For Study: PVD Procedure A bilateral lower extremity continuous wave Doppler with analog waveform analysis,segmental pressures,and ankle brachial indexes without exercise. Exam was ordered with exercise, unable to exercise due to noncompressibility of ankle vessels. Left Segmental Pressures Left brachial= 156mmHg. Left posterior tibial artery = >254mmHg. Left dorsalis pedis artery = >254mmHg. Left digit = 145 mmHg. The left dorsalis pedis waveforms are triphasic. The left posterior tibial artery waveforms are triphasic. Right Segmental Pressures Right brachial= 164mmHg. Right posterior tibial artery = >254mmHg. Right dorsalis pedis artery = >254mmHg. Right digit = 0.87 mmHg. The right dorsalis pedis waveforms are triphasic. The right posterior tibial artery waveforms are triphasic. Indices The right ankle brachial index by the dorsalis pedis is NC. The right ankle brachial index by the posterior tibial artery is NC. The right digital-brachial index is 0.87. The left ankle brachial index by the dorsalis pedis is NC. The left ankle brachial index by the posterior tibial artery is NC. The left digital-brachial index is 0.88. VL/Lower Ext Art Exam w/o Exercis Interpretation Summary Triphasic Doppler waveforms are noted at ankle level bilaterally. Pulse-volume recordings appear satisfactory at all levels bilaterally, including low thigh, calf, ankle, and d igital levels. Resting ankle-brachial indices could not be determined on either side due to th e non-compressibility of the vasculature at ankle level bilaterally. Digital-brachial indices are nor mal bilaterally. There is evidence of arterial calcification at ankle level bilaterally. There i s no evidence of significant arterial occlusive disease in the lower extremities bilaterally. Ordering Physician: Rodney Calderón Referring Physician: Vera Lucas Performed By: Jennifer Pham RVT
== END 2021-10-04 23:59 | disposition home or self-care (01) ==
PROVIDERS: PCP Internal Medicine; Referring Provider Podiatrist; Visit Provider Podiatrist
DX: I73.9 Peripheral vascular disease, unspecified (principal)
CPT/HCPCS: 93923

== ENCOUNTER 2021-11-15 16:41 | Emergency (ER) | payer MEDICAID, SELFPAY ==
[2021-11-15 16:42] VITALS: BP 177/74; PULSE 82; RESP 16; TEMP 37.1; O2SAT 97; BMI 25.9
--- NOTE | 2021-11-15 17:15 | ED.VIS.GI ---
HPI HPI - GI History of Present Illness Chief Complaint: Nausea/Vomiting/Diarrhea Detail of Chief Complaint: Diarrhea without nausea and vomiting Informant: patient Abdominal Pain/Flank Pain Onset: Days (4 days ago) Timing: Intermittent Quality: Aching (With diarrhea) Location: RLQ and LLQ Current Severity: Gone Maximum Severity: Moderate Worsened by: - (Diarrhea) Relieved by: Nothing; Not Relieved By Antacids, Food and Remaining Still Nausea/Vomiting/Emesis GI Symptom: Negative for Nausea and Vomiting Diarrhea/Melena/Hematochezia GI Symptom: Positive for Diarrhea; Negative for Melena and Hematochezia Onset: Days Stool Quality: Positive for Watery Severity: Mild Episodes: 3 Narrative Narrative: Patient is a 65-year-old male who lives alone. He has not felt well for the past several days. He has had diarrhea which he describes as watery stool. He states he has 3 watery stools a day. He does report thirst and dry mouth. He does report decreased urine output and lightheadedness. He denies headache, visual, ocular auditory symptoms. He does endorse subjective fever. He states he beaulieu up at times. He denies cardiac respiratory symptoms. He denies dysuria, frequency, urgency or hematuria. He states he noted that his legs were swollen when he got out of the bathtub this morning. He did not noted any swelling prior to today. He denies history of inflammatory bowel disorder. He denies history of heart failure. Per old records he has history of chronic renal disease, stage IIIb. Prior similar symptoms: Yes Recent Illness/Hospitalization: No [facility] Medical History Complete heart block (02/2019) CVA (cerebral vascular accident) (02/2019) Diabetes mellitus DVT (deep venous thrombosis) Essential (primary) hypertension Former smoker HLD (hyperlipidemia) Kidney disease Pacemaker Paroxysmal supraventricular tachycardia (06/2017) Sick sinus syndrome Sinus pause Tachyarrhythmia Type II diabetes mellitus, uncontrolled Home Medications aspirin 81 mg PO DAILY 03/04/19 [History Last Taken 09/22/19] atorvastatin 80 mg PO DAILY 03/04/19 [History Last Taken 09/22/19] multivitamin 1 tab PO DAILY 03/04/19 [History Last Taken 09/22/19] clopidogrel 75 mg PO DAILY 04/25/19 [History Last Taken 09/22/19] metoprolol succinate 100 mg PO DAILY 04/25/19 [History Last Taken 09/22/19] insulin glargine 25 units SQ DAILY 09/23/19 [History Last Taken 09/21/19] amlodipine 5 mg tablet 10 mg PO DAILY tab 05/13/20 [History Last Taken Unknown] hydralazine 75 mg PO TID #0 tab 04/04/21 [Rx Last Taken Unknown] hydrochlorothiazide 12.5 mg PO DAILY #60 cap 04/04/21 [Rx Last Taken Unknown] tamsulosin [Flomax] 0.4 mg PO DAILY #14 cap 07/06/21 [Rx Last Taken Unknown] Allergy/AdvReac Type Severity Reaction Status Date / Time metformin [From Glucophage] AdvReac Diarrhea Verified 08/02/21 16:40 Family History Mother Cancer Father Heart disease Hypertension Myocardial infarction Surgical History History of carpal tunnel release History of permanent cardiac pacemaker placement (03/05/19) Social History household members: none Smoking Status: Former smoker Smokeless tobacco user: other alcohol intake: never substance use type: does not use ROS ROS ED Constitutional Constitutional ED: Reports fever(s) and subjective; Denies chills, sweats or weight loss ENT ENT ED: Denies ear pain, rhinorrhea or sore throat Cardiovascular Cardiovascular: Denies chest pain, orthopnea, palpitations or racing heartbeat Respiratory/Chest Respiratory/Chest: Denies cough, dyspnea, dyspnea on exertion or orthopnea Gastrointestinal Gastrointestinal: Reports abdominal pain and diarrhea; Denies constipation, melena, nausea or vomiting Genitourinary Genitourinary ED: Reports other Details: Decreased urine output ; Denies dysuria, hematuria or urinary frequency Musculoskeletal Musculoskeletal: Denies arthralgias, back pain, myalgias or neck pain Integumentary Denies Abrasions or rash Neurologic Neurologic: Reports weakness; Denies headache(s) or paresthesias Endocrine Endocrinology: Denies polydipsia, polyphagia or polyuria Hematologic/Lymphatic Hematologic/Lymphatic: Denies easy bleeding or easy bruising EXAM Physical Exam Const Vital Signs: 11/15/21 16:42 11/15/21 17:25 Temperature 98.7 F Temperature Source Temporal Pulse Rate 82 81 Respiratory Rate 16 18 Blood Pressure 177/74 H 162/80 H Blood Pressure Mean 108 107 Pulse Ox 97 97 Oxygen Delivery Method Room Air Room Air Positive well nourished and well developed General Appearance ED: well developed and NAD; Negative for pallor HEENT Reports TM's clear and dry mucous membranes HEENT Narrative: Uvula midline. There is no angioedema. There is no erythema or exudate noted. normocephalic and atraumatic Tympanic Membrane ED: Yes TM's clear Mouth ED: Yes dry mucous membranes Mouth: dry mucous membranes Eyes PERRL and EOMs intact bilaterally General Eye ED: Negative for pale conjunctiva or scleral icterus Neck no lymphadenopathy, supple and no JVD Resp normal respiratory effort and clear to auscultation bilaterally Cardio regular rate, regular rhythm, S1 normal heart sound, S2 normal heart sound and no murmurs GI non-tender, non-distended and no masses Auscultation: normoactive bowel sounds Palpation: soft; Negative for hepatomegaly, splenomegaly, hernia or mass Back/Spine no CVA tenderness Thoracic Spine / Upper Back: Negative for thoracic spinal tenderness Lumbar Spine / Lower Back: Negative for lumbar spinal tenderness Extremity full ROM General Extremety ED: Negative for edema or tenderness General Extremity: Negative for edema Neuro CN's II-XII intact bilaterally and no sensory deficits noted Sensorium / Orientation: alert, oriented to person, oriented to place and oriented to time Motor Exam: strength 5/5 throughout Psych mental status grossly normal and thought process normal Skin no wounds General Skin Exam: Negative for jaundice or pallor Lesions: no lesions Rashes: no rashes MDM MDM MDM Narrative Medical decision making narrative: Patient presents with diarrhea only. Clinically is dehydrated. Give symptoms of dehydration. He was treated with a liter normal saline and blood work was obtained to assess potassium, renal function and anion gap. CBC to evaluate for anemia and white count. Patient was informed of results. He is agreeable with plan. He was discharged to home to follow-up with his doctor for reassessment in 3 to 5 days Lab Data Attestation: I reviewed the patient's lab results. Lab results narrative: Last T hemoglobin documented was June 2021 and 9.8. BUN and creatinine are elevated 46 and 2.6. We will need to compare to prior. Calcium is 8.0. BUN and creatinine were 56 and 2.4 on July 06, 2021 respectively. This is not significantly different or worse than today's results. Patient does have evidence of microcytic anemia. Treatment is iron. Labs: Laboratory Results - last 24 hr 11/15/21 11/15/21 17:20 17:20 WBC 6.5 RBC 2.97 L Hgb 7.9 L Hct 23.2 L MCV 78.1 L MCH 26.6 L MCHC 34.1 RDW Std Deviation 42.1 RDW Coeff of Harry 14.9 H Plt Count 230 MPV 9.4 Immature Gran % (Auto) 1.100 H Neut % (Auto) 62.7 Lymph % (Auto) 23.7 [place] % (Auto) 9.7 Eos % (Auto) 2.5 Baso % (Auto) 0.3 Absolute Neuts (auto) 4.1 Absolute Lymphs (auto) 1.54 Nucleated RBC % 0 Sodium 141 Potassium 4.2 Chloride 112 H Carbon Dioxide 24.0 Anion Gap 5 BUN 46 H Creatinine 2.60 H Estim Creat Clear Calc 29.08 Est GFR (MDRD) Af Amer 32 L Est GFR (MDRD) Non-Af 27 L BUN/Creatinine Ratio 17.7 Glucose 200 H Calcium 8.0 L Discharge Plan Triage Chief Complaint: Nausea/Vomiting/Diarrhea ED Provider: Charles Newman Dx/Rx/DC Orders Clinical Impression: Diarrhea, Chronic kidney disease, stage 3b, Microcytic anemia Instructions: ED Anemia, Iron-Deficiency (Adult), ED Diarrhea, Unknown Cause Prescriptions: No Action multivitamin 0 tablet 1 tab PO DAILY RF: 0 atorvastatin 80 MG tablet 80 mg PO DAILY RF: 0 aspirin 81 MG tablet,chewable 81 mg PO DAILY RF: 0 metoprolol succinate 100 MG tablet extended release 24 hr 100 mg PO DAILY RF: 0 clopidogrel 75 MG tablet 75 mg PO DAILY RF: 0 amlodipine 5 mg tablet 10 mg PO DAILY RF: 0 insulin glargine 100 UNIT/ML insulin pen 25 units SQ DAILY RF: 0 hydrochlorothiazide 12.5 mg capsule 12.5 mg PO DAILY Qty: 60 RF: 3 Hold Instructions: Hold for 1 week hydralazine 50 mg tablet 75 mg PO TID Qty: 0 RF: 0 tamsulosin [Flomax] 0.4 mg capsule 0.4 mg PO DAILY Qty: 14 RF: 0 Primary Care Provider: Vera Lucas Referrals: Vera Lucas MD [Primary Care Provider] - 5-7 Days Activity Restrictions/Additional Instructions: You will need to purchase a bottle of ferrous sulfate, iron, and take 1 tablet 3 times a day for the next 30 days. Disposition Disposition: Home, Self Care
[2021-11-15] MEDS: 0.9% Normal Saline 1,000 ML 1000 ML IV (17:20)
[2021-11-15 17:25] VITALS: BP 162/80; PULSE 81; RESP 18; O2SAT 97
[2021-11-15 17:38] LABS: Absolute Lymphocyte Count 1.54 X10^3/uL (0.83-4.51); Absolute Neutrophil Count 4.1 X10^3/uL (2.0-7.7); Basophil# 0.02 X10^3/uL; Basophil% 0.3 % (0-1); Eosinophil# 0.16 X10^3/uL; Eosinophils% 2.5 % (0-5); Hematocrit 23.2 % (40-54); Hemoglobin 7.9 g/dL (13.0-16.5); Lymphocyte # 1.54 X10^3/ul (0.83-4.51); Lymphocyte % 23.7 % (19-41); Mean Corp Hgb Conc 34.1 g/dL (32-36); Mean Corpuscular Hgb 26.6 pg (27.0-32.0); Mean Corpuscular Volume 78.1 fL (80-94); Mean Platelet Vol. 9.4 fl (6.2-12.0); Monocyte# 0.63 X10^3/uL; Monocyte% 9.7 % (0-10); NRBC Flagged by Analyzer 0 % (0-5); Neutrophil # 4.09 X10^3/uL (2.7-7.7); Neutrophil % 62.7 % (47-70); Platelet Count 230 K/mm3 (150-450); RBC Distribution Width CV 14.9 % (11.6-14.6); RBC Distribution Width SD 42.1 fl (35.1-43.9); Red Blood Count 2.97 M/mm3 (4.6-6.2); White Blood Count 6.5 K/mm3 (4.4-11.0)
[2021-11-15 17:51] LABS: Anion Gap 5 (5-15); BUN 46 mg/dL (7-18); BUN/Creat Ratio 17.7 RATIO (10-20); Chloride 112 mmol/L (98-107); EST Glomerular Filtration Rate 27 mL/min (>60); Est Glom Filt Rate - Afr Amer 32 mL/min (>60); Estimated Creatinine Clearance 29.08 ml/min; Glucose 200 mg/dL (74-106); Potassium 4.2 mmol/L (3.5-5.1); Sodium Level 141 mmol/L (136-145)
[2021-11-15 18:12] VITALS: BP 170/77; PULSE 81; RESP 17; O2SAT 97
== END 2021-11-15 19:15 | disposition home or self-care (01) ==
PROVIDERS: Emergency Provider Emergency Medicine; PCP Internal Medicine; Visit Provider Emergency Medicine
DX: R19.7 Diarrhea, unspecified (principal); E11.22 Type 2 diabetes mellitus with diabetic chronic kidney disease; Z79.4 Long term (current) use of insulin; N18.32 Chronic kidney disease, stage 3b; I12.9 Hypertensive chronic kidney disease with stage 1 through stage 4 chronic kidney disease, or unspecified chronic kidney disease; E86.0 Dehydration; D50.9 Iron deficiency anemia, unspecified; E78.5 Hyperlipidemia, unspecified; Z79.82 Long term (current) use of aspirin; Z79.02 Long term (current) use of antithrombotics/antiplatelets; Z79.899 Other long term (current) drug therapy; Z86.73 Personal history of transient ischemic attack (TIA), and cerebral infarction without residual deficits; Z87.891 Personal history of nicotine dependence; Z95.0 Presence of cardiac pacemaker
CPT/HCPCS: 80048; 85025; 96360; 99285; J7030; A4216

== ENCOUNTER 2021-11-20 21:05 | Emergency (ER) | payer MEDICAID, SELFPAY ==
[2021-11-20 21:05] VITALS: BP 183/80; PULSE 89; RESP 16; TEMP 36.6; O2SAT 98; BMI 25.8
--- NOTE | 2021-11-20 21:34 | ED.VIS.GI ---
HPI HPI - GI History of Present Illness Chief Complaint: GI Bleed Informant: patient and family Abdominal Pain/Flank Pain Onset: Today Context: Sudden Onset Timing: Intermittent Worsened by: Nothing Relieved by: Nothing Nausea/Vomiting/Emesis GI Symptom: Negative for Nausea and Vomiting Diarrhea/Melena/Hematochezia GI Symptom: Positive for Melena; Negative for Diarrhea and Hematochezia Onset: Today Stool Quality: Positive for Loose and Black Episodes: 1 Associated Symptoms Associated Symptoms: Negative for Dysuria, Frequency and Hematuria Narrative Narrative: Patient presents with black stools that began today. Patient started taking iron yesterday for anemia. Patient states his stools today are softer and a little bit looser than normal. Patient states nothing makes it better nothing makes it worse. Daughter also noted he had some swelling in his left hand and both feet today. She states patient has a history of chronic kidney disease. Patient denies any fevers or chills. Patient denies any abdominal pain. Patient denies any nausea or vomiting. Patient denies any urinary complaints. [facility] Medical History Complete heart block (02/2019) CVA (cerebral vascular accident) (02/2019) Diabetes mellitus DVT (deep venous thrombosis) Essential (primary) hypertension Former smoker HLD (hyperlipidemia) Kidney disease Pacemaker Paroxysmal supraventricular tachycardia (06/2017) Sick sinus syndrome Sinus pause Tachyarrhythmia Type II diabetes mellitus, uncontrolled Home Medications aspirin 81 mg PO DAILY 03/04/19 [History Last Taken 09/22/19] atorvastatin 80 mg PO DAILY 03/04/19 [History Last Taken 09/22/19] multivitamin 1 tab PO DAILY 03/04/19 [History Last Taken 09/22/19] clopidogrel 75 mg PO DAILY 04/25/19 [History Last Taken 09/22/19] metoprolol succinate 100 mg PO DAILY 04/25/19 [History Last Taken 09/22/19] insulin glargine 25 units SQ DAILY 09/23/19 [History Last Taken 09/21/19] amlodipine 5 mg tablet 10 mg PO DAILY tab 05/13/20 [History Last Taken Unknown] hydralazine 75 mg PO TID #0 tab 04/04/21 [Rx Last Taken Unknown] hydrochlorothiazide 12.5 mg PO DAILY #60 cap 04/04/21 [Rx Last Taken Unknown] tamsulosin [Flomax] 0.4 mg PO DAILY #14 cap 07/06/21 [Rx Last Taken Unknown] cephalexin 500 mg PO Q6 #20 capsule 11/20/21 [Rx Last Taken Unknown] Allergy/AdvReac Type Severity Reaction Status Date / Time metformin [From Glucophage] AdvReac Diarrhea Verified 11/20/21 21:07 Family History Mother Cancer Father Heart disease Hypertension Myocardial infarction Surgical History History of carpal tunnel release History of permanent cardiac pacemaker placement (03/05/19) Social History household members: none Smoking Status: Former smoker Smokeless tobacco user: other alcohol intake: never substance use type: does not use ROS ROS ED Constitutional Constitutional ED: Denies chills or fever(s) Eyes Eyes: Denies blurry vision or change in vision ENT ENT ED: Denies rhinorrhea or sore throat Cardiovascular Cardiovascular: Denies chest pain or palpitations Respiratory/Chest Respiratory/Chest: Denies cough or dyspnea Gastrointestinal Gastrointestinal: Reports melena; Denies abdominal pain, nausea or vomiting Genitourinary Genitourinary ED: Denies dysuria or hematuria Musculoskeletal Musculoskeletal: Denies back pain or neck pain Integumentary Denies abscess or rash Neurologic Neurologic: Reports headache(s); Denies weakness Allergic/Immunologic Allergic/Immunologic ED: Denies mouth swelling or urticaria EXAM Physical Exam Const Vital Signs: 11/20/21 21:05 11/20/21 22:00 Temperature 97.9 F Temperature Source Oral Pulse Rate 89 Pulse Rate [Lying] 75 Pulse Rate [Sitting (for 1 minute prior to obtaining)] 82 Pulse Rate [Standing (for 1 minute prior to obtaining)] 85 Respiratory Rate 16 Blood Pressure 183/80 H Blood Pressure [Lying] 171/80 H Blood Pressure [Sitting (for 1 minute prior to obtaining)] 172/91 H Blood Pressure [Standing (for 1 minute prior to obtaining)] 172/80 H Blood Pressure Mean 114 Blood Pressure Mean [Lying] 110 Blood Pressure Mean [Sitting (for 1 minute prior to obtaining)] 118 Blood Pressure Mean [Standing (for 1 minute prior to obtaining)] 110 Pulse Ox 98 Oxygen Delivery Method Room Air Positive well nourished and well developed General Appearance ED: well developed and NAD HEENT Reports moist mucous membranes Neck supple and no JVD Resp normal respiratory effort and clear to auscultation bilaterally Cardio regular rate and regular rhythm GI non-tender Palpation: soft Neuro CN's II-XII intact bilaterally, moves all extremities and no sensory deficits noted Sensorium / Orientation: alert and oriented to person Psych mental status grossly normal MDM MDM MDM Narrative Medical decision making narrative: CBC shows a mild anemia with a hemoglobin of 8.5 and hematocrit 25.3. These are improved from previous results. PT with INR and PTT were within normal limits. BUN was slightly elevated at 45 and creatinine was 2.44. These are consistent with prior results. Glucose was slightly elevated to 75. Alk phos was slightly elevated at 119. Lipase was normal. Urinalysis shows a leukocyte esterases of 500 with 25-50 white blood cells and 3+ bacteria. Nitrites were positive. Urine culture was ordered. Patient was given a dose of Rocephin here. Patient was given a prescription for Keflex. Orthostatic vital signs were within normal limits. Stool for occult blood was ordered and was negative. Patient was instructed to follow-up with his primary care physician in 5 to 7 days. Patient was instructed to return if worse in any way. Patient understood and was agreeable with the plan. All questions were answered. Lab Data Attestation: I reviewed the patient's lab results. Labs: Laboratory Results - last 24 hr 11/20/21 11/20/21 11/20/21 21:55 21:55 21:55 WBC 6.5 RBC 3.17 L Hgb 8.5 L Hct 25.3 L MCV 79.8 L MCH 26.8 L MCHC 33.6 RDW Std Deviation 42.8 RDW Coeff of Harry 14.7 H Plt Count 237 MPV 9.2 Immature Gran % (Auto) 1.200 H Neut % (Auto) 61.7 Lymph % (Auto) 25.2 [place] % (Auto) 8.5 Eos % (Auto) 3.1 Baso % (Auto) 0.3 Absolute Neuts (auto) 4.0 Absolute Lymphs (auto) 1.64 Nucleated RBC % 0 PT 12.6 INR 1.0 APTT 25.9 Sodium 138 Potassium 4.7 Chloride 112 H Carbon Dioxide 20.0 L Anion Gap 6 BUN 45 H Creatinine 2.44 H Estim Creat Clear Calc 30.99 Est GFR (MDRD) Af Amer 35 L Est GFR (MDRD) Non-Af 29 L BUN/Creatinine Ratio 18.4 Glucose 275 H Calcium 8.3 L Total Bilirubin 0.20 AST 14 L ALT 25 Alkaline Phosphatase 119 H Total Protein 6.6 Albumin 2.9 L Globulin 3.7 Albumin/Globulin Ratio 0.8 L Lipase 60 L Urine Color Urine Clarity Urine pH Ur Specific [place] Urine Protein Urine Glucose (UA) Urine Ketones Urine Occult Blood Urine Nitrite Urine Bilirubin Urine Urobilinogen Ur Leukocyte Esterase Urine RBC Urine WBC Ur Squamous Epith Cells Urine Bacteria Urine Mucus 11/20/21 22:12 WBC RBC Hgb Hct MCV MCH MCHC RDW Std Deviation RDW Coeff of Harry Plt Count MPV Immature Gran % (Auto) Neut % (Auto) Lymph % (Auto) [place] % (Auto) Eos % (Auto) Baso % (Auto) Absolute Neuts (auto) Absolute Lymphs (auto) Nucleated RBC % PT INR APTT Sodium Potassium Chloride Carbon Dioxide Anion Gap BUN Creatinine Estim Creat Clear Calc Est GFR (MDRD) Af Amer Est GFR (MDRD) Non-Af BUN/Creatinine Ratio Glucose Calcium Total Bilirubin AST ALT Alkaline Phosphatase Total Protein Albumin Globulin Albumin/Globulin Ratio Lipase Urine Color Yellow Urine Clarity Sl. Cloudy Urine pH 6.0 Ur Specific [place] 1.015 Urine Protein 500 H Urine Glucose (UA) 250 H Urine Ketones 5 H Urine Occult Blood 10 H Urine Nitrite Positive H Urine Bilirubin Negative Urine Urobilinogen Normal Ur Leukocyte Esterase 500 H Urine RBC 0-5 SEEN Urine WBC 25-50 SEEN Ur Squamous Epith Cells 0 SEEN Urine Bacteria 3+ Urine Mucus 0 SEEN Discharge Plan Triage Chief Complaint: GI Bleed ED Provider: Juice Suero Dx/Rx/DC Orders Clinical Impression: Anemia, Urinary tract infection Instructions: ED Anemia, Type Not Specified (Adult), ED Bladder Infection, Male (Adult) Prescriptions: New cephalexin [cephalexin] 500 MG capsule 500 mg PO Q6 Qty: 20 RF: 0 No Action multivitamin 0 tablet 1 tab PO DAILY RF: 0 atorvastatin 80 MG tablet 80 mg PO DAILY RF: 0 aspirin 81 MG tablet,chewable 81 mg PO DAILY RF: 0 metoprolol succinate 100 MG tablet extended release 24 hr 100 mg PO DAILY RF: 0 clopidogrel 75 MG tablet 75 mg PO DAILY RF: 0 amlodipine 5 mg tablet 10 mg PO DAILY RF: 0 insulin glargine 100 UNIT/ML insulin pen 25 units SQ DAILY RF: 0 hydrochlorothiazide 12.5 mg capsule 12.5 mg PO DAILY Qty: 60 RF: 3 Hold Instructions: Hold for 1 week hydralazine 50 mg tablet 75 mg PO TID Qty: 0 RF: 0 tamsulosin [Flomax] 0.4 mg capsule 0.4 mg PO DAILY Qty: 14 RF: 0 Primary Care Provider: Vera Lucas Referrals: Vera Lucas MD [Primary Care Provider] - 3-5 Days Disposition Disposition: Home, Self Care
[2021-11-20 22:00] VITALS: BP 171/80; BP 172/80; BP 172/91; PULSE 75; PULSE 82; PULSE 85
[2021-11-20 22:10] LABS: Absolute Lymphocyte Count 1.64 X10^3/uL (0.83-4.51); Basophil# 0.02 X10^3/uL; Basophil% 0.3 % (0-1); Eosinophils% 3.1 % (0-5); Hematocrit 25.3 % (40-54); Hemoglobin 8.5 g/dL (13.0-16.5); Lymphocyte # 1.64 X10^3/ul (0.83-4.51); Lymphocyte % 25.2 % (19-41); Mean Corp Hgb Conc 33.6 g/dL (32-36); Mean Corpuscular Hgb 26.8 pg (27.0-32.0); Mean Corpuscular Volume 79.8 fL (80-94); Mean Platelet Vol. 9.2 fl (6.2-12.0); Monocyte# 0.55 X10^3/uL; Monocyte% 8.5 % (0-10); NRBC Flagged by Analyzer 0 % (0-5); Neutrophil # 4.01 X10^3/uL (2.7-7.7); Neutrophil % 61.7 % (47-70); Platelet Count 237 K/mm3 (150-450); RBC Distribution Width CV 14.7 % (11.6-14.6); RBC Distribution Width SD 42.8 fl (35.1-43.9); Red Blood Count 3.17 M/mm3 (4.6-6.2); White Blood Count 6.5 K/mm3 (4.4-11.0)
[2021-11-20 22:18] LABS: Mucous, Urine 0 SEEN /hpf (<or=2+); Squamous Epithelial Cells - UA 0 SEEN /hpf (0-5)
[2021-11-20 22:18] LABS: ALB/GLOB Ratio 0.8 RATIO (0.9-2.4); AST(SGOT) 14 U/L (15-37); Alanine Aminotransfer ALT/SGPT 25 U/L (16-61); Albumin, Serum 2.9 g/dL (3.2-5.0); Alkaline Phosphatase 119 U/L (45-117); Anion Gap 6 (5-15); BUN 45 mg/dL (7-18); BUN/Creat Ratio 18.4 RATIO (10-20); Calcium,Total 8.3 mg/dL (8.5-10.1); Chloride 112 mmol/L (98-107); Creatinine, Serum 2.44 mg/dL (0.70-1.30); EST Glomerular Filtration Rate 29 mL/min (>60); Est Glom Filt Rate - Afr Amer 35 mL/min (>60); Estimated Creatinine Clearance 30.99 ml/min; Globulin 3.7 g/dL (2.2-4.2); Glucose 275 mg/dL (74-106); Lipase 60 U/L (73-393); Potassium 4.7 mmol/L (3.5-5.1); Protein, Total 6.6 g/dL (6.4-8.2); Sodium Level 138 mmol/L (136-145)
[2021-11-20 22:21] LABS: Color, Urine Yellow (Yellow); Glucose, Dipstick 250 mg/dl (Normal); Ketone-Dipstick 5 mg/dl (Negative); Leukocyte Esterase-Dipstick 500 /ul (Negative); Nitrite-Dipstick Positive (Negative); Occult Blood-Urine 10 /ul (Negative); Protein-Dipstick 500 mg/dl (Negative); Specific Gravity, Urine 1.015 (1.002-1.030); Urine Bilirubin Dipstick Negative (Negative); Urine Clarity Sl. Cloudy (Clear); Urine Urobilinogen Normal (Normal)
[2021-11-20 22:21] LABS: Partial Thromboplast Time 25.9 Seconds (24.1-36.2); Prothrombin Time (Protime)PT. 12.6 SECONDS (11.7-14.9)
[2021-11-20 22:27] LABS: Bacteria 3+ /hpf (None Seen); Red Blood Cells-Urine 0-5 SEEN /hpf (0-5); White Blood Cells 25-50 SEEN /hpf (0-5)
[2021-11-20] MEDS: Ceftriaxone 1 GM/50 ML BAG IV (23:32)
[2021-11-21 00:23] VITALS: BP 159/81; PULSE 75; RESP 16; O2SAT 97
== END 2021-11-21 00:31 | disposition home or self-care (01) ==
PROVIDERS: Emergency Provider Emergency Medicine; PCP Internal Medicine; Visit Provider Emergency Medicine
DX: D64.9 Anemia, unspecified (principal); E11.65 Type 2 diabetes mellitus with hyperglycemia; N39.0 Urinary tract infection, site not specified; E78.5 Hyperlipidemia, unspecified; M79.89 Other specified soft tissue disorders; I10 Essential (primary) hypertension; Z79.82 Long term (current) use of aspirin; Z79.02 Long term (current) use of antithrombotics/antiplatelets; Z79.84 Long term (current) use of oral hypoglycemic drugs; Z79.899 Other long term (current) drug therapy; Z86.73 Personal history of transient ischemic attack (TIA), and cerebral infarction without residual deficits; Z86.718 Personal history of other venous thrombosis and embolism; Z87.891 Personal history of nicotine dependence; Z95.0 Presence of cardiac pacemaker
CPT/HCPCS: 80053; 81001; 82274; 83690; 85025; 85610; 85730; 87077; 87086; 87088; 87186; 96365; 99284; J7050; A4216

== ENCOUNTER 2022-03-11 10:01 | Observation (INO) | payer MEDICAID, SELFPAY ==
[2022-03-11] VITALS (22 sets, daily range): BP systolic 158–180; BP diastolic 65–83; PULSE 77–85; RESP 14–30; TEMP 36.6–38; O2SAT 91–100; BMI 24.5; BMI 26.2
--- NOTE | 2022-03-11 | MRI_ITS ---
EXAM: MR HEAD WITHOUT INTRAVENOUS CONTRAST CLINICAL INDICATION: stroke TECHNIQUE: Multiplanar and multisequence MR images of the brain were obtained without intravenous contrast. This report was created using [employer] report generation technology. COMPARISON: CT head done earlier. FINDINGS: BRAIN AND EXTRA-AXIAL SPACES: Low density regions in the brain may signify early microvascular ischemic changes, a demyelinating process, vasculitis, or sequela related to migraines. No intra- or extra-axial hemorrhage. No intracranial mass or mass effect. Posterior fossa structures are unremarkable. Ventricles are appropriate for age. No hydrocephalus. Basal cisterns are patent. SELLA: Unremarkable. Normal sella turcica, pituitary gland, infundibular stalk, optic chiasm and hypothalamus. AUDITORY SYSTEM: Unremarkable. The internal auditory canals are patent. BONES/JOINTS: Unremarkable. No discrete lytic or blastic abnormalities. SINUSES: Unremarkable as visualized. Clear. MASTOID AIR CELLS: Unremarkable as visualized. Clear. ORBITS: Unremarkable as visualized. Both globes, extraocular muscles, optic nerves and retrobulbar fat appear unremarkable. VASCULATURE: Unremarkable as visualized. Normal flow voids in the major intracranial circulation. MRI/Brain without Contrast IMPRESSION: No acute findings in the head/brain. Electronically Signed: Tripp Carr MD at 16:43 EDT ,
--- NOTE | 2022-03-11 10:05 | RAD_ITS ---
EXAM: XR CHEST, 1 VIEW CLINICAL INDICATION: Neuro deficit, acute, stroke suspected TECHNIQUE: Frontal view of the chest. This report was created using [employer] report generation technology. COMPARISON: 04/02/2021 FINDINGS: LUNGS AND PLEURAL SPACES: Unremarkable. No consolidation or edema. No pneumothorax. No effusion. HEART: Unremarkable. Cardiac silhouette not enlarged. MEDIASTINUM: Central airways and mediastinal contour are unremarkable. BONES/JOINTS: Unremarkable. SOFT TISSUES: Unremarkable. TUBES, LINES AND DEVICES: Left-sided pacemaker in stable position. RAD/Chest 1 View IMPRESSION: No acute findings in the chest. Electronically Signed: Josias Jo MD at 11:06 EDT ,
--- NOTE | 2022-03-11 10:05 | CT_ITS ---
We are attempting to reach an attending provider to discuss findings. An addendum with communication details will be sent when the communication is complete. EXAM: CT HEAD WITHOUT INTRAVENOUS CONTRAST CLINICAL INDICATION: Neuro deficit, acute, stroke suspected TECHNIQUE: Multiple axial images were obtained of the head without intravenous contrast. This CT exam was performed using one or more of the following dose reduction techniques: automated exposure control, adjustment of the mA and/or kV according to patient size, and/or use of iterative reconstruction technique. This report was created using [employer] report [employer] technology. COMPARISON: None. FINDINGS: BRAIN AND EXTRA-AXIAL SPACES: There is a focus of decreased density within the [place] which may represent a pontine infarct. This measures 4 x 7 mm. There is mild enlargement of ventricular system and cortical sulci. There is hypoattenuation in the periventricular white matter. No intra- or extra-axial hemorrhage. No intracranial mass or mass effect. Basal cisterns are patent. BONES/JOINTS: Unremarkable. No discrete lytic or blastic abnormalities. SINUSES: Unremarkable as visualized. Clear. MASTOID AIR CELLS: Unremarkable. Clear. ORBITS: Visualized globes, extraocular muscles, optic nerves and retrobulbar fat appear unremarkable. CT/STROKE Brain/Head without Cont IMPRESSION: 1. Small focus of decreased density in the [place] which may represent a pontine infarct. No other acute abnormalities identified. 2. Underlying senescent change with small vessel ischemia. 3. Aspects score 10. Electronically Signed: Josias Jo MD at 10:20 EDT ,
--- NOTE | 2022-03-11 10:05 | EKG12_ITS ---
Test Reason : STROKE ALERT Blood Pressure : / mmHG Vent. Rate : 080 BPM Atrial Rate : 080 BPM P-R Int : 206 ms QRS Dur : 088 ms QT Int : 388 ms P-R-T Axes : 048 -22 -03 degrees QTc Int : 447 ms Normal sinus rhythm Voltage criteria for left ventricular hypertrophy Nonspecific ST and T wave abnormality Abnormal ECG Confirmed by ANNALISA VILLA, NINI ([id number]), editor greeting card ROCKY LO ([id number]) on 03/14/2022 1:01:52 PM Referred By: JEANNINE Confirmed By:NINI FANG MD
--- NOTE | 2022-03-11 10:07 | NURSING ---
0951 STROKE ALERT CALL PRIOR TO ARRIVAL
[2022-03-11 10:24] LABS: Absolute Lymphocyte Count 0.92 X10^3/uL (0.83-4.51); Absolute Neutrophil Count 3.7 X10^3/uL (2.0-7.7); Basophil# 0.02 X10^3/uL; Basophil% 0.4 % (0-1); Eosinophil# 0.07 X10^3/uL; Eosinophils% 1.3 % (0-5); Hematocrit 25.8 % (40-54); Hemoglobin 8.6 g/dL (13.0-16.5); Lymphocyte # 0.92 X10^3/ul (0.83-4.51); Lymphocyte % 17.3 % (19-41); Mean Corp Hgb Conc 33.3 g/dL (32-36); Mean Corpuscular Hgb 26.7 pg (27.0-32.0); Mean Corpuscular Volume 80.1 fL (80-94); Mean Platelet Vol. 9.8 fl (6.2-12.0); Monocyte# 0.53 X10^3/uL; NRBC Flagged by Analyzer 0 % (0-5); Neutrophil # 3.65 X10^3/uL (2.7-7.7); Neutrophil % 68.6 % (47-70); Platelet Count 198 K/mm3 (150-450); RBC Distribution Width CV 13.5 % (11.6-14.6); RBC Distribution Width SD 38.7 fl (35.1-43.9); Red Blood Count 3.22 M/mm3 (4.6-6.2); White Blood Count 5.3 K/mm3 (4.4-11.0)
--- NOTE | 2022-03-11 10:28 | ED.RN ---
STROKE ALERT CANCELLED PER DR BRUCE
[2022-03-11 10:36] LABS: Prothrombin Time (Protime)PT. 12.9 SECONDS (11.7-14.9)
[2022-03-11 10:37] LABS: Partial Thromboplast Time 25.8 Seconds (24.1-36.2)
[2022-03-11 10:41] LABS: Anion Gap 9 (5-15); BUN 48 mg/dL (7-18); BUN/Creat Ratio 19.4 RATIO (10-20); Calcium,Total 8.8 mg/dL (8.5-10.1); Chloride 111 mmol/L (98-107); Creatinine, Serum 2.48 mg/dL (0.70-1.30); EST Glomerular Filtration Rate 28 mL/min (>60); Est Glom Filt Rate - Afr Amer 34 mL/min (>60); Estimated Creatinine Clearance 30.09 ml/min; Glucose 305 mg/dL (74-106); Potassium 4.1 mmol/L (3.5-5.1); Sodium Level 139 mmol/L (136-145); Troponin-I HS 21 pg/mL (3.0-78.0)
[2022-03-11] MEDS: 0.9% Normal Saline 1,000 ML 999 ML IV (11:03)
--- NOTE | 2022-03-11 12:03 | EX.ED.DYSGE1 ---
HPI History of Present Illness Chief Complaint: Neuro S/Sx Informant: patient and EMS Narrative Narrative: Patient is a 66-year-old male presenting from home via EMS for increased weakness, generalized malaise and worsening left-sided weakness. Apparently they were called for chest pain. Patient denies any chest pain when I evaluated him to states he feels that he is some chest congestion and a cough. He went to bed at 6 PM last night and felt worse throughout the night. EMS was concerned because of left-sided deficits and a stroke alert was called in the field. Patient is that he has a history of a prior stroke with residual left-sided weakness. He states sometimes she does feel weaker. Denies any falls or head injuries. Thinks he is on a blood thinner but cannot recall which one. Denies any sick contacts. Does report some urinary frequency. Does live home alone. No other complaints at this time. [facility] Medical History (Updated 03/11/22 @ 17:[address] Taisha Luis, DO) Complete heart block (02/2019) CVA (cerebral vascular accident) (02/2019) Diabetes mellitus DVT (deep venous thrombosis) Essential (primary) hypertension Former smoker HLD (hyperlipidemia) Kidney disease Migraines Pacemaker Paroxysmal supraventricular tachycardia (06/2017) Sick sinus syndrome Sinus pause Tachyarrhythmia Type II diabetes mellitus, uncontrolled Home Medications atorvastatin 80 mg tablet 80 mg PO DAILY cholesterol 03/04/19 [History Last Taken 03/11/22] clopidogrel 75 mg tablet 75 mg PO DAILY blood thinner 04/25/19 [History Last Taken 03/11/22] metoprolol succinate 100 mg tablet,extended release 24 hr 100 mg PO DAILY heart rate 04/25/19 [History Last Taken 03/11/22] insulin glargine 100 unit/mL (3 mL) subcutaneous pen (Lantus Solostar U-100 Insulin) 25 units SQ DAILY diabetes 09/23/19 [History Last Taken 09/21/19] amlodipine 10 mg tablet 10 mg PO DAILY HTN 03/11/22 [History Last Taken 03/11/22] glimepiride 4 mg tablet 4 mg PO DAILY DM 03/11/22 [History Last Taken 03/10/22] hydralazine 50 mg tablet 50 mg PO TID BP 03/11/22 [History Last Taken 03/11/22] multivitamin (Daily-[place] tablet) 1 tab PO DAILY SUPPLEMENT 03/11/22 [History Last Taken 03/11/22] tamsulosin 0.4 mg capsule (Flomax) 0.4 mg PO DAILY PROSTATE 03/11/22 [History Last Taken 03/10/22] Allergy/AdvReac Type Severity Reaction Status Date / Time metformin [From Glucophage] AdvReac Diarrhea Verified 03/11/22 10:25 Family History Mother Cancer Father Heart disease Hypertension Myocardial infarction Surgical History History of carpal tunnel release History of permanent cardiac pacemaker placement (03/05/19) Social History household members: none Smoking Status: Former smoker Smokeless tobacco user: other alcohol intake: never substance use type: does not use ROS ROS ED Constitutional Constitutional ED: Reports chills; Denies fever(s) Eyes Eyes: Denies blurry vision or change in vision ENT ENT ED: Denies rhinorrhea or sore throat Cardiovascular Cardiovascular: Reports chest pain; Denies palpitations Respiratory/Chest Respiratory/Chest: Reports cough and dyspnea Gastrointestinal Gastrointestinal: Denies abdominal pain, nausea or vomiting Genitourinary Genitourinary ED: Reports urinary frequency; Denies dysuria Musculoskeletal Musculoskeletal: Denies arthralgias or myalgias Integumentary Denies rash Neurologic Neurologic: Reports paresthesias and weakness; Denies headache(s) Psychiatric Psychiatric: Denies anxiety Hematologic/Lymphatic Hematologic/Lymphatic: Reports easy bleeding EXAM Physical Exam Const Vital Signs: 03/11/22 10:12 03/11/22 10:12 03/11/22 10:05 Temperature 99.2 F H 99.4 F H Temperature Source Temporal Temporal Pulse Rate 85 84 Respiratory Rate 30 H 24 H Blood Pressure 180/83 H 177/77 H Blood Pressure Mean 115 110 Pulse Ox 100 100 Oxygen Delivery Method Room Air Room Air Room Air 03/11/22 10:05 03/11/22 10:24 03/11/22 11:24 Temperature 99.4 F H 99.4 F H Temperature Source Temporal Temporal Pulse Rate 80 84 80 Respiratory Rate 24 H 24 H 20 H Blood Pressure 177/77 H 177/77 H 162/71 H Blood Pressure Mean 110 101 Pulse Ox 100 100 99 Oxygen Delivery Method Room Air Room Air Room Air 03/11/22 11:24 03/11/22 12:00 03/11/22 14:00 Temperature 99.4 F H 97.9 F Temperature Source Temporal Temporal Pulse Rate 80 80 78 Respiratory Rate 22 H 20 H 24 H Blood Pressure 162/71 H 162/71 H 175/77 H Blood Pressure Mean 101 101 109 Pulse Ox 99 99 96 Oxygen Delivery Method Room Air Room Air Room Air 03/11/22 13:00 Temperature 97.9 F Temperature Source Temporal Pulse Rate 80 Respiratory Rate 20 H Blood Pressure 166/72 H Blood Pressure Mean 103 Pulse Ox 98 Oxygen Delivery Method Room Air Positive well nourished and well developed General Appearance ED: well developed, NAD and pallor HEENT Reports dry mucous membranes Negative for trauma Mouth ED: Yes dry mucous membranes Mouth: dry mucous membranes Eyes PERRL and EOMs intact bilaterally Neck supple and no JVD Chest Wall inspection of chest normal and palpation of chest normal Resp Resp Narrative: Mild tachypnea. Coarse breath sounds throughout. Auscultation: Negative for wheezes Cardio regular rate, regular rhythm and no murmurs GI normal to inspection, nondistended, normoactive bowel sounds, non-tender and non-distended Back/Spine no CVA tenderness Extremity normal to inspection General Extremety ED: Negative for edema or tenderness General Extremity: Negative for edema Neuro oriented x3 and CN's II-XII intact bilaterally Neuro Narrative: NIH equals 3. 1- subjective paresthesias on the left side and 2 - left leg drift that dropped to the bed. Patient appears to be at his neurologic baseline Sensorium / Orientation: alert Motor Exam: general weakness Psych mental status grossly normal Skin no rashes or lesions noted and no wounds General Skin Exam: pallor MDM MDM MDM Narrative Medical decision making narrative: Patient arrives as a stroke alert. Exam concerning for a globalized weakness. He does have some left-sided deficits but these appear to be chronic. CT of the brain shows chronic findings with no acute process. Patient has significant CKD with a creatinine of 2.[address] at this time. Case discussed with neurology who feels that he would benefit from admission for further stroke evaluation however he is not a tPA candidate. I am in agreement with this. Patient has a chronic anemia which is stable. Urinalysis is pending. Urinalysis is not consistent with infection. Patient is amenable to admission for further neurologic evaluation. He remains hemodynamically stable in the emergency room. Lab Data Attestation: I reviewed the patient's lab results. Labs: Laboratory Results - last 24 hr 03/11/22 03/11/22 03/11/22 10:15 10:15 10:15 WBC 5.3 RBC 3.22 L Hgb 8.6 L Hct 25.8 L MCV 80.1 MCH 26.7 L MCHC 33.3 RDW Std Deviation 38.7 RDW Coeff of Harry 13.5 Plt Count 198 MPV 9.8 Immature Gran % (Auto) 2.400 H Neut % (Auto) 68.6 Lymph % (Auto) 17.3 L [place] % (Auto) 10.0 Eos % (Auto) 1.3 Baso % (Auto) 0.4 Absolute Neuts (auto) 3.7 Absolute Lymphs (auto) 0.92 Nucleated RBC % 0 PT 12.9 INR 1.0 APTT 25.8 Sodium 139 Potassium 4.1 Chloride 111 H Carbon Dioxide 19.0 L Anion Gap 9 BUN 48 H Creatinine 2.48 H Estim Creat Clear Calc 30.09 Est GFR (MDRD) Af Amer 34 L Est GFR (MDRD) Non-Af 28 L BUN/Creatinine Ratio 19.4 Glucose 305 H Calcium 8.8 Troponin I High Sens 21 Urine Color Urine Clarity Urine pH Ur Specific [place] Urine Protein Urine Glucose (UA) Urine Ketones Urine Occult Blood Urine Nitrite Urine Bilirubin Urine Urobilinogen Ur Leukocyte Esterase Urine RBC Urine WBC Ur Squamous Epith Cells Urine Bacteria Urine Mucus 03/11/22 12:37 WBC RBC Hgb Hct MCV MCH MCHC RDW Std Deviation RDW Coeff of Harry Plt Count MPV Immature Gran % (Auto) Neut % (Auto) Lymph % (Auto) [place] % (Auto) Eos % (Auto) Baso % (Auto) Absolute Neuts (auto) Absolute Lymphs (auto) Nucleated RBC % PT INR APTT Sodium Potassium Chloride Carbon Dioxide Anion Gap BUN Creatinine Estim Creat Clear Calc Est GFR (MDRD) Af Amer Est GFR (MDRD) Non-Af BUN/Creatinine Ratio Glucose Calcium Troponin I High Sens Urine Color Straw Urine Clarity Sl. Cloudy Urine pH 6.0 Ur Specific [place] 1.010 Urine Protein 500 H Urine Glucose (UA) 250 H Urine Ketones Negative Urine Occult Blood 25 H Urine Nitrite Negative Urine Bilirubin Negative Urine Urobilinogen Normal Ur Leukocyte Esterase 25 H Urine RBC 0-5 SEEN Urine WBC 0-5 SEEN Ur Squamous Epith Cells 0-5 SEEN Urine Bacteria 0 SEEN Urine Mucus 0 SEEN Radiography Chest X-Ray - ED: 1 View, Read by ED Physician, Read by Radiologist and No Acute Disease Diagnostic Testing: Clinical Impression(s) from Imaging Studies Brain MRI 03/11/22 00:00 IMPRESSION: No acute findings in the head/brain. Electronically Signed: Tripp Carr MD at 16:43 EDT , Brain CT 03/11/22 10:05 IMPRESSION: 1. Small focus of decreased density in the [place] which may represent a pontine infarct. No other acute abnormalities identified. 2. Underlying senescent change with small vessel ischemia. 3. Aspects score 10. Electronically Signed: Josias Jo MD at 10:20 EDT , ADDENDUM: 03/11/22 1029 IMPRESSION: 1. Small focus of decreased density in the [place] which may represent a pontine infarct. No other acute abnormalities identified. 2. Underlying senescent change with small vessel ischemia. 3. Aspects score 10. N.B. : The above Results were Read Back by Josias Jo MD to Taisha Luis DO, DO, and understanding confirmed on 03/11/2022 10:22:46 (ET). Electronically Signed: Josias Jo MD at 10:20 EDT , ADDENDUM: 03/11/22 1034 IMPRESSION: undefined Chest X-Ray 03/11/22 10:05 IMPRESSION: No acute findings in the chest. Electronically Signed: Josias Jo MD at 11:06 EDT , Rhythm Strip Rhythm Strip: Sinus Rhythm Rate: 80 Ectopy: None EKG Initial EKG: Attestation: I personally reviewed and interpreted this EKG as follows: Interpretation: Sinus Rhythm Comments: Normal sinus rhythm at a rate of 80 Left axis deviation Normal intervals Voltage criteria for LVH Normal ST segments Discharge Plan Dx/Rx/DC Orders Clinical Impression: Chronic kidney disease, stage 3b, Acute left-sided muscle weakness Disposition Disposition: Acute Care Hospital [facility] Discharge Date/Time: 03/11/22 15:22
[2022-03-11 12:43] LABS: Bacteria 0 SEEN /hpf (None Seen); Mucous, Urine 0 SEEN /hpf (<or=2+)
[2022-03-11 12:49] LABS: Color, Urine Straw (Yellow); Glucose, Dipstick 250 mg/dl (Normal); Ketone-Dipstick Negative (Negative); Leukocyte Esterase-Dipstick 25 /ul (Negative); Nitrite-Dipstick Negative (Negative); Occult Blood-Urine 25 /ul (Negative); Protein-Dipstick 500 mg/dl (Negative); Urine Bilirubin Dipstick Negative (Negative); Urine Clarity Sl. Cloudy (Clear); Urine Urobilinogen Normal (Normal)
[2022-03-11 13:11] LABS: Red Blood Cells-Urine 0-5 SEEN /hpf (0-5); Squamous Epithelial Cells - UA 0-5 SEEN /hpf (0-5); White Blood Cells 0-5 SEEN /hpf (0-5)
--- NOTE | 2022-03-11 14:02 | NURSING ---
PCU OBS ANGELA WEAKNESS, LEFT SIDED WEAKNESS
--- NOTE | 2022-03-11 14:17 | ECHOD_ITS ---
Reason For Study: TIA/CVA Procedure This was a 2D Doppler, Color Flow transthoracic echocardiogram. Exam performed portable in patient room. Left Ventricle Normal left ventricle. The estimated ejection fraction is 55-60 %. Right Ventricle Normal right ventricle. Normal systolic function. Atria Normal left atrium. Normal right atrium. Mitral Valve There is mild mitral annular calcification. Trivial mitral valve insufficiency. Tricuspid Valve Normal tricuspid valve. Mild tricuspid valve insufficiency. Aortic Valve Mild diffuse aortic valve calcification. Mild (1+) aortic valve insufficiency. MMode/2D Measurements & Calculations LVIDd: 5.4 cm IVSd: 1.2 cm Ao root diam: 3.9 cm LVIDs: 3.9 cm LVPWd: 1.3 cm FS: 27.7 % LAV(MOD-bp): 77.3 ml LA dimension(2D): 4.6 cm LA A4 area: 23.8 cm2 LAV(MOD-bp) Indexed: 40.5 ml/m2 LAV(MOD-sp2): 77.0 ml LAV(MOD-sp4): 72.4 ml Time Measurements MV dec time: 0.22 sec Doppler Measurements & Calculations MV E max nikhil: 58.7 cm/sec Lat Peak E' Nikhil: 9.2 cm/sec Med Peak E' Nikhil: 7.0 cm/sec MV A max nikhil: 84.6 cm/sec E/E' lat: 6.4 E/E' med: 8.4 MV E/A: 0.69 MV dec slope: 268.6 cm/sec2 Ao V2 max: 131.2 cm/sec AI max nikhil: 482.1 cm/sec Ao max P.9 mmHg AI max P.0 mmHg Ao V2 mean: 92.8 cm/sec AI dec slope: 367.2 cm/sec2 Ao mean P.8 mmHg AI P1/2t: 384.5 msec Ao V2 VTI: 26.3 cm LV V1 max: 100.5 cm/sec PA V2 max: 110.9 cm/sec TR max nikhil: 261.7 cm/sec LV V1 max P.1 mmHg TR max P.4 mmHg LV V1 mean P.5 mmHg LV V1 mean: 75.9 cm/sec LV V1 VTI: 19.7 cm ECHO/Echo Complete Interpretation Summary The estimated ejection fraction is 55-60 %. Ordering Physician: Kelli Beckman Referring Physician: Vera Lucas Performed By: Rissa Fry, KING, RVT
--- NOTE | 2022-03-11 14:17 | MRI_ITS ---
EXAM: MR ANGIOGRAPHY NECK WITHOUT INTRAVENOUS CONTRAST CLINICAL INDICATION: stroke TECHNIQUE: Routine carotid MR angiogram protocol was performed without intravenous contrast. 3D reconstructions were reviewed. Nascet criteria using the distal ICAs for comparison were used for evaluation of stenoses. This report was created using [employer] technology. COMPARISON: 09.17.20. FINDINGS: RIGHT COMMON CAROTID ARTERY: Unremarkable. No occlusion or significant stenosis. No dissection. RIGHT INTERNAL CAROTID ARTERY: Unremarkable. Extracranial segment is patent with no occlusion or significant stenosis. No dissection. RIGHT EXTERNAL CAROTID ARTERY: Unremarkable. No occlusion. RIGHT VERTEBRAL ARTERY: Unremarkable. No occlusion or significant stenosis. No dissection. LEFT COMMON CAROTID ARTERY: Unremarkable. No occlusion or significant stenosis. No dissection. LEFT INTERNAL CAROTID ARTERY: There are no acute findings of the right and left internal carotid artery. ALL ABOVE CRITERIA BY NASCET. Extracranial segment is patent with no occlusion or significant stenosis. No dissection. LEFT EXTERNAL CAROTID ARTERY: Unremarkable. No occlusion. LEFT VERTEBRAL ARTERY: Unremarkable. No occlusion or significant stenosis. No dissection. GREAT VESSELS OF AORTIC ARCH: Unremarkable. No significant stenosis. CAROTID STENOSIS REFERENCE USING NASCET CRITERIA: % ICA stenosis = (1 - narrowest ICA diameter/diameter of distal cervical ICA) x 100. Mild - <50% stenosis. Moderate - 50-69% stenosis. Severe - 70-94% stenosis. Near occlusion - 95-99% stenosis. Occluded - 100% stenosis. MRI/MRA Neck without Contrast IMPRESSION: There are no acute findings of the right and left internal carotid artery. ALL ABOVE CRITERIA BY NASCET. Electronically Signed: Tripp Carr MD at 17:45 EDT ,
--- NOTE | 2022-03-11 14:18 | PCM.HP.STD ---
Documented by User: FRANCESCO Pierson 03/11/22 14:31 HPI - General General Date of Admission: 03/11/22 Date of Service: 03/11/22 Chief Complaint: Left sided weakness HPI Narrative LOU JULIEN, is a 66 M who presents with worsening left-sided weakness. Patient has left-sided weakness from prior stroke however patient feels that his weakness on his left side is worsening. Patient states that he did not feel well yesterday patient states that he also has had some chest congestion and a cough and has not felt well for the past couple of days. Patient has a medical history that includes diabetes mellitus type 2, previous CVA, hypertension, hyperlipidemia, CKD stage IV, pacemaker placement. [facility] Medical History (Updated 03/11/22 @ 15:34 by Alannah Yip) Complete heart block (02/2019) CVA (cerebral vascular accident) (02/2019) Diabetes mellitus DVT (deep venous thrombosis) Essential (primary) hypertension Former smoker HLD (hyperlipidemia) Kidney disease Migraines Pacemaker Paroxysmal supraventricular tachycardia (06/2017) Sick sinus syndrome Sinus pause Tachyarrhythmia Type II diabetes mellitus, uncontrolled Home Medications atorvastatin 80 mg tablet 80 mg PO DAILY cholesterol 03/04/19 [History Last Taken 03/11/22] clopidogrel 75 mg tablet 75 mg PO DAILY blood thinner 04/25/19 [History Last Taken 03/11/22] metoprolol succinate 100 mg tablet,extended release 24 hr 100 mg PO DAILY heart rate 04/25/19 [History Last Taken 03/11/22] insulin glargine 100 unit/mL (3 mL) subcutaneous pen (Lantus Solostar U-100 Insulin) 25 units SQ DAILY diabetes 09/23/19 [History Last Taken 09/21/19] amlodipine 10 mg tablet 10 mg PO DAILY HTN 03/11/22 [History Last Taken 03/11/22] glimepiride 4 mg tablet 4 mg PO DAILY DM 03/11/22 [History Last Taken 03/10/22] hydralazine 50 mg tablet 50 mg PO TID BP 03/11/22 [History Last Taken 03/11/22] multivitamin (Daily-Yousuf tablet) 1 tab PO DAILY SUPPLEMENT 03/11/22 [History Last Taken 03/11/22] tamsulosin 0.4 mg capsule (Flomax) 0.4 mg PO DAILY PROSTATE 03/11/22 [History Last Taken 03/10/22] Allergy/AdvReac Type Severity Reaction Status Date / Time metformin [From Glucophage] AdvReac Diarrhea Verified 03/11/22 10:25 Family History Mother Cancer Father Heart disease Hypertension Myocardial infarction Surgical History History of carpal tunnel release History of permanent cardiac pacemaker placement (03/05/19) Social History household members: none Smoking Status: Former smoker Smokeless tobacco user: other alcohol intake: never substance use type: does not use ROS Constitutional Constitutional: Reports fatigue, malaise and weakness; Denies anorexia, change in weight, chills or fever(s) Cardiovascular Cardiovascular: Reports chest pain; Denies edema, orthopnea or palpitations Respiratory/Chest Respiratory/Chest: Reports cough; Denies shortness of breath at rest, shortness of breath with exertion or wheezing Gastrointestinal Gastrointestinal: Denies abdominal pain, constipation, diarrhea, nausea or vomiting Genitourinary Genitourinary: Denies dysuria Musculoskeletal Musculoskeletal: Denies back pain, extremity pain, joint pain, joint stiffness or joint swelling Integumentary Integumentary: Denies dry skin Neurologic Neurologic: Reports weakness; Denies abnormal speech, confusion or dizziness Psychiatric Psychiatric: Denies anxiety or depression Endocrine Endocrinology: Denies change in body appearance Hematologic/Lymphatic Hematologic/Lymphatic: Reports anemia Vital Signs Vital Signs Vital Signs: 03/11/22 10:12 03/11/22 10:12 03/11/22 10:05 Temperature 99.2 F H 99.4 F H Temperature Source Temporal Temporal Pulse Rate 85 84 Respiratory Rate 30 H 24 H Blood Pressure 180/83 H 177/77 H Blood Pressure Mean 115 110 Pulse Ox 100 100 Oxygen Delivery Method Room Air Room Air Room Air 03/11/22 10:05 03/11/22 10:24 03/11/22 11:24 Temperature 99.4 F H 99.4 F H Temperature Source Temporal Temporal Pulse Rate 80 84 80 Respiratory Rate 24 H 24 H 20 H Blood Pressure 177/77 H 177/77 H 162/71 H Blood Pressure Mean 110 101 Pulse Ox 100 100 99 Oxygen Delivery Method Room Air Room Air Room Air 03/11/22 11:24 03/11/22 12:00 Temperature 99.4 F H Temperature Source Temporal Pulse Rate 80 80 Respiratory Rate 22 H 20 H Blood Pressure 162/71 H 162/71 H Blood Pressure Mean 101 101 Pulse Ox 99 99 Oxygen Delivery Method Room Air Room Air Weight Weight: 166 lb 7.184 oz Body Mass Index (BMI) 24.5 Physical Exam Const alert, oriented x3 and no apparent distress General Appearance: cooperative HEENT normocephalic and head/scalp atraumatic Eyes conjunctivae normal and no scleral icterus Neck supple General: trachea midline Resp normal respiratory effort and normal air movement Auscultation: diminished lung sounds Cardio regular rate, regular rhythm, S1 normal heart sound, S2 normal heart sound and peripheral pulses 2+ throughout GI normal to inspection, nondistended, normoactive bowel sounds, soft to palpation and non-tender Extremity normal capillary refill and no clubbing, cyanosis or edema Skin Lesions: no lesions Rashes: no rashes Neuro oriented x3 and moves all extremities Neuro Narrative: Left upper and lower extremity 4 out of 5 strength, right upper and lower extremity 5 out of 5 strength Sensorium / Orientation: awake and alert Speech: speech normal Psych thought process normal, cooperative and affect normal Results Lab / Micro Data Result Diagrams: 03/11/22 10:15 03/11/22 10:15 Labs: Laboratory Results - last 24 hr 03/11/22 10:15: WBC 5.3, RBC 3.22 L, Hgb 8.6 L, Hct 25.8 L, MCV 80.1, MCH 26.7 L, MCHC 33.3, RDW Std Deviation 38.7, RDW Coeff of Harry 13.5, Plt Count 198, MPV 9.8, Immature Gran % (Auto) 2.400 H, Neut % (Auto) 68.6, Lymph % (Auto) 17.3 L, Trinity % (Auto) 10.0, Eos % (Auto) 1.3, Baso % (Auto) 0.4, Absolute Neuts (auto) 3.7, Absolute Lymphs (auto) 0.92, Nucleated RBC % 0 03/11/22 10:15: PT 12.9, INR 1.0, APTT 25.8 03/11/22 10:15: Sodium 139, Potassium 4.1, Chloride 111 H, Carbon Dioxide 19.0 L, Anion Gap 9, BUN 48 H, Creatinine 2.48 H, Estim Creat Clear Calc 30.09, Est GFR (MDRD) Af Amer 34 L, Est GFR (MDRD) Non-Af 28 L, BUN/Creatinine Ratio 19.4, Glucose 305 H, Calcium 8.8, Troponin I High Sens 21 03/11/22 12:37: Urine Color Straw, Urine Clarity Sl. Cloudy, Urine pH 6.0, Ur Specific Terry 1.010, Urine Protein 500 H, Urine Glucose (UA) 250 H, Urine Ketones Negative, Urine Occult Blood 25 H, Urine Nitrite Negative, Urine Bilirubin Negative, Urine Urobilinogen Normal, Ur Leukocyte Esterase 25 H, Urine RBC 0-5 SEEN, Urine WBC 0-5 SEEN, Ur Squamous Epith Cells 0-5 SEEN, Urine Bacteria 0 SEEN, Urine Mucus 0 SEEN Micro: Microbiology 03/11/22 11:32 Nasal Secretion SARS-CoV-2 Antigen (Rapid) - Final Rhythm Strip Rhythm Strip: Sinus Rhythm Rate: 80 Ectopy: None Radiology Impression Brain CT 03/11/22 10:05 IMPRESSION: 1. Small focus of decreased density in the [place] which may represent a pontine infarct. No other acute abnormalities identified. 2. Underlying senescent change with small vessel ischemia. 3. Aspects score 10. Electronically Signed: Josias Jo MD at 10:20 EDT , ADDENDUM: 03/11/22 1029 IMPRESSION: 1. Small focus of decreased density in the [place] which may represent a pontine infarct. No other acute abnormalities identified. 2. Underlying senescent change with small vessel ischemia. 3. Aspects score 10. N.B. : The above Results were Read Back by Josias Jo MD to Taisha Luis DO, DO, and understanding confirmed on 03/11/2022 10:22:46 (ET). Electronically Signed: Josias Jo MD at 10:20 EDT , ADDENDUM: 03/11/22 1034 IMPRESSION: undefined Chest X-Ray 03/11/22 10:05 IMPRESSION: No acute findings in the chest. Electronically Signed: Josias Jo MD at 11:06 EDT , Assessment & Plan Assessment/Plan (1) CVA (cerebral vascular accident): (2) Anemia: PLAN: Plan 1. Rule out CVA -Admit to PCU -CT demonstrates small lacunar infarct consistent with previous MRI, no acute findings -MRI head and MRA neck ordered -Echocardiogram ordered -CBC and CMP daily -NIH and vital sign monitoring per protocol -As needed hydralazine and labetalol ordered per protocol -Trend cardiac enzymes -Lipid profile in a.m. -PT, OT, ST to eval and treat 2. Chronic anemia -Hemoglobin 8.6, consistent with baseline -CBC daily 3. Hypertension -Continue patient's home medications -Vital signs per protocol, currently elevated but stable 4. Hyperlipidemia -Continue atorvastatin 5. Diabetes mellitus type 2 -Will continue patient's home insulin regimen -ACH S blood sugars with sliding scale insulin ordered 6. BPH -Continue tamsulosin 7. CKD stage IV -Creatinine 2.48, consistent with patient's baseline -CMP ordered daily DVT prophylaxis-SCDs This patient was seen by JOSE PiersonC under the supervision of Dr. Whitmore. 29 minutes spent in clinical coordination of patient's plan of care. Documented by User: Dr. Roberto Whitmore MD 03/11/22 15:38 HPI - General General Date of Admission: 03/11/22 Chief Complaint: Left sided weakness and mild slurred speech since yesterday night on top of old residual left-sided weakness since 2019 HPI Narrative LOU JULIEN, is a 66 M who presents with worsening left-sided weakness. Patient has left-sided weakness from prior stroke however patient feels that his weakness on his left side is worsening. Patient states that he did not feel well yesterday patient states that he also has had some chest congestion and a cough and has not felt well for the past couple of days. Patient has a medical history that includes diabetes mellitus type 2, previous CVA, hypertension, hyperlipidemia, CKD stage IV, pacemaker placement. This is a 66-year-old male was brought in by EMS for left-sided weakness, slurring of his speech last night. EMS was called for chest pain. Patient also had midsternal sharp chest pain with radiation to left arm lasted for couple hours associated with shortness of breath. Patient never had IL. As per ED felt like chest congestion and mild cough. Denies fever chills. Patient has chronic shortness of breath for more than a year mainly on exertion. He walks with a cane. Does not climb stairs. The patient is not a good historian as first time he told me that he did not have chest pain. In the ED, stroke alert was called. Patient already on aspirin, Plavix. CT angiogram was not done as patient had CKD with creatinine around 2.5. Patient also has a pacemaker placed about 3 years ago in [place]. He follows Dr. Harris. In ED, BP elevated 180/83, respiratory rate about 24/min, heart rate 80 per minute. Twelve-lead EKG individually reviewed, normal sinus rhythm 80 beats minute, LVH, nonspecific ST abnormality QTC 447 ms. No significant change from 03/26/2021 EKG except it was junctional rhythm at 63 beats. Chest x-ray individually reviewed and shows pacemaker with no acute cardiopulmonary abnormality. CT head was done shows a small focus of decreased density in [place] probably chronic from previous stroke. No acute abnormality. Labs reviewed and discussed in HPI. [facility] Medical History (Updated 03/11/22 @ 15:34 by Alannah Yip) Complete heart block (02/2019) CVA (cerebral vascular accident) (02/2019) Diabetes mellitus DVT (deep venous thrombosis) Essential (primary) hypertension Former smoker HLD (hyperlipidemia) Kidney disease Migraines Pacemaker Paroxysmal supraventricular tachycardia (06/2017) Sick sinus syndrome Sinus pause Tachyarrhythmia Type II diabetes mellitus, uncontrolled Home Medications atorvastatin 80 mg tablet 80 mg PO DAILY cholesterol 03/04/19 [History Last Taken 03/11/22] clopidogrel 75 mg tablet 75 mg PO DAILY blood thinner 04/25/19 [History Last Taken 03/11/22] metoprolol succinate 100 mg tablet,extended release 24 hr 100 mg PO DAILY heart rate 04/25/19 [History Last Taken 03/11/22] insulin glargine 100 unit/mL (3 mL) subcutaneous pen (Lantus Solostar U-100 Insulin) 25 units SQ DAILY diabetes 09/23/19 [History Last Taken 09/21/19] amlodipine 10 mg tablet 10 mg PO DAILY HTN 03/11/22 [History Last Taken 03/11/22] glimepiride 4 mg tablet 4 mg PO DAILY DM 03/11/22 [History Last Taken 03/10/22] hydralazine 50 mg tablet 50 mg PO TID BP 03/11/22 [History Last Taken 03/11/22] multivitamin (Daily-Yousuf tablet) 1 tab PO DAILY SUPPLEMENT 03/11/22 [History Last Taken 03/11/22] tamsulosin 0.4 mg capsule (Flomax) 0.4 mg PO DAILY PROSTATE 03/11/22 [History Last Taken 03/10/22] Allergy/AdvReac Type Severity Reaction Status Date / Time metformin [From Glucophage] AdvReac Diarrhea Verified 03/11/22 10:25 Family History Mother Cancer Father Heart disease Hypertension Myocardial infarction Surgical History History of carpal tunnel release History of permanent cardiac pacemaker placement (03/05/19) Social History household members: none Smoking Status: Former smoker Smokeless tobacco user: other alcohol intake: never substance use type: does not use ROS ROS Narrative Chronic fatigue, chronic dyspnea on exertion. Bilateral feet, diabetic neuropathy, previous diabetic foot. Bilateral leg weakness, chronic left more than right. Does not have burning micturition or new lower intact symptoms. Patient has chronic diarrhea, has not seen any doctor or seek medical care. No nausea vomiting or GI bleed. Rest 14 ROS as mentioned below and described in HPI. Physical Exam Narrative General: Alert, Oriented x3, Cooperative HEENT: Atraumatic, PERRLA, EOMI, Normocephalic Oral: Oral mucosa moist. No Gingival or Mucosal Lesions/ Ulcerations Neck: Supple, No JVD, Negative Carotid Bruits Lungs: Air entry diminished in bilateral lung bases. No crepitation/rhonchi Cardiovascular: Sinus rhythm, Regular Rhythm, Normal S1, Normal S2, no murmur gallop rub. There subclavicular pacemaker Abdomen: Bowel Sounds Present, Soft, Non Tender, Non-Distended : No renal angle tenderness. No suprapubic tenderness. Extremities: No edema, Capillary Refill Less than 3 Seconds Skin: No rashes, No breakdown Musculoskeletal: Moderate muscle atrophy of extremities: Left hip, knee and ankle joint muscle strength 3+/5. RLE 4/5 at major joints. Uses diabetic shoes. No Tenderness to Palpation of Joints or Extremities Neurological: Cranial nerves II-XII grossly intact, DTR 2+/4 and Symmetrical, left-sided weakness. Psych/Mental Status: Normal Affect, Appropriate. Results Lab / Micro Data Result Diagrams: 03/11/22 10:15 03/11/22 10:15 Assessment & Plan Assessment/Plan (1) CVA (cerebral vascular accident): (2) Anemia: PLAN: Plan 1. Rule out CVA -Admit to PCU -CT demonstrates small lacunar infarct consistent with previous MRI, no acute findings -MRI head and MRA neck ordered -Echocardiogram ordered -CBC and CMP daily -NIH and vital sign monitoring per protocol -As needed hydralazine and labetalol ordered per protocol -Trend cardiac enzymes -Lipid profile in a.m. -PT, OT, ST to eval and treat 2. Chronic anemia -Hemoglobin 8.6, consistent with baseline -CBC daily 3. Hypertension -Continue patient's home medications -Vital signs per protocol, currently elevated but stable 4. Hyperlipidemia -Continue atorvastatin 5. Diabetes mellitus type 2 -Will continue patient's home insulin regimen -ACH S blood sugars with sliding scale insulin ordered 6. BPH -Continue tamsulosin 7. CKD stage IV -Creatinine 2.48, consistent with patient's baseline -CMP ordered daily DVT prophylaxis-SCDs This patient was seen by FRANCESCO Pierson under the supervision of Dr. Whitmore. 30 minutes spent in clinical coordination of patient's plan of care. This patient was seen in conjunction with RITA Pereira. I have independently interviewed and examined the patient and reviewed pertinent history, examination findings, laboratory and plan of management. I have reviewed the note and agree with the documented findings with the few additional points. This is 66-year-old with multiple comorbidities, CVA in 2019 admitted with worsening of left-sided weakness, and slurred speech, chest pain yesterday. 1. 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 Patient has pacemaker therefore he needs clearance from MRI for MRI of brain, MRA of. Cannot do CT angiogram because of CKD stage IV. 2D echo ordered. Urine negative for pyuria. Patient had obesity 2. Atypical chest pain on 03/10 for couple hours: Patient has a history of sick sinus syndrome, complete heart block, PSVT Status post pacemaker. First troponin, has not been normal. Twelve-lead EKG no significant previous EKG. Cycle cardiac enzymes and repeat EKG. Patient does not have a history of prior CAD/cardiac cath or PCI 3. CKD stage IV: Creatinine 2.4 at patient's baseline. Monitor kidney function electrolytes daily. 4. Hypertension: Patient's blood pressure is chronically elevated in the 170s the past history. Maintain BP as per permissive hypertension guidelines. 5. Diabetes mellitus type 2: Glucose 305. Lantus 25 units subcutaneous daily home dose. Accu-Cheks before meals and at bedtime correctional sliding scale. 6. Chronic anemia, normocytic normocytic type probably due to CKD: Patient denies GI bleed. Monitor CBC. 7. Other comorbidities admission above includes dyslipidemia, BPH, history of CVA, low functional capacity: PT and OT ordered. I have discussed my assessment with RITA Pereira and orders have been reviewed. VTE prophylaxis: Lovenox 30 minutes of daily. Discontinue if platelet count drops less than 50,000 or hemoglobin less than 8 g% Total time of the visit including total time spent in counseling or coordination of care, (more than 50% of the total time, spent in obtaining medical information from nurses and other ancillary care providers,explaining to the patient about labs, imaging, diagnosis and management of active complex medical conditions), medical record review, review of labs and imaging is 45 minutes. Microbiology Past 72 Hours 03/11/22 11:32 Nasal Secretion SARS-CoV-2 Antigen (Rapid) - Final Laboratory Results 03/11/22 10:15: WBC 5.3, RBC 3.22 L, Hgb 8.6 L, Hct 25.8 L, MCV 80.1, MCH 26.7 L, MCHC 33.3, RDW Std Deviation 38.7, RDW Coeff of Harry 13.5, Plt Count 198, MPV 9.8, Immature Gran % (Auto) 2.400 H, Neut % (Auto) 68.6, Lymph % (Auto) 17.3 L, Trinity % (Auto) 10.0, Eos % (Auto) 1.3, Baso % (Auto) 0.4, Absolute Neuts (auto) 3.7, Absolute Lymphs (auto) 0.92, Nucleated RBC % 0 03/11/22 10:15: PT 12.9, INR 1.0, APTT 25.8 03/11/22 10:15: Sodium 139, Potassium 4.1, Chloride 111 H, Carbon Dioxide 19.0 L, Anion Gap 9, BUN 48 H, Creatinine 2.48 H, Estim Creat Clear Calc 30.09, Est GFR (MDRD) Af Amer 34 L, Est GFR (MDRD) Non-Af 28 L, BUN/Creatinine Ratio 19.4, Glucose 305 H, Calcium 8.8, Troponin I High Sens 21 03/11/22 12:37: Urine Color Straw, Urine Clarity Sl. Cloudy, Urine pH 6.0, Ur Specific Terry 1.010, Urine Protein 500 H, Urine Glucose (UA) 250 H, Urine Ketones Negative, Urine Occult Blood 25 H, Urine Nitrite Negative, Urine Bilirubin Negative, Urine Urobilinogen Normal, Ur Leukocyte Esterase 25 H, Urine RBC 0-5 SEEN, Urine WBC 0-5 SEEN, Ur Squamous Epith Cells 0-5 SEEN, Urine Bacteria 0 SEEN, Urine Mucus 0 SEEN Charges/Coding Visit Charges OBSV E&M: 89632 Initial observation care L3 Procedures Hospitalists Procedures: 56912 Advncd Care Plan 30 Min
--- NOTE | 2022-03-11 15:50 | MRI_ITS ---
EXAM: MR ANGIOGRAPHY HEAD WITHOUT INTRAVENOUS CONTRAST CLINICAL INDICATION: stroke Technologist Notes Other, LEFT SIDED WEAKNESS X [address] BRAIN TODAY ALSO. MRI BRAIN, MRA HEAD, MRA NECK 09/17/20. TECHNIQUE: Routine [place]/brain 3D time of flight MR angiogram protocol was performed without intravenous contrast. This report was created using GradeBeam report generation technology. COMPARISON: Ct done earlier. FINDINGS: RIGHT INTERNAL CAROTID ARTERY: There is calcified plaque formation of the right cavernous carotid artery, with a mild stenosis (less than 50%). ALL ABOVE CRITERIA BY NASCET. No aneurysm. RIGHT ANTERIOR CEREBRAL ARTERY: Unremarkable. No significant stenosis at the visualized segments. Anterior communicating artery is present. No aneurysm. RIGHT MIDDLE CEREBRAL ARTERY: Unremarkable. No significant stenosis at the visualized segments. No aneurysm. RIGHT POSTERIOR CEREBRAL ARTERY: Unremarkable. No significant stenosis at the visualized segments. No aneurysm. RIGHT VERTEBRAL ARTERY: Unremarkable as visualized. No significant stenosis at the intradural/visualized segments. No aneurysm. LEFT INTERNAL CAROTID ARTERY: There is calcified plaque formation of the left cavernous carotid artery, with a mild stenosis (less than 50%). ALL ABOVE CRITERIA BY NASCET. No aneurysm. LEFT ANTERIOR CEREBRAL ARTERY: Unremarkable. No significant stenosis at the visualized segments. Anterior communicating artery is present. No aneurysm. LEFT MIDDLE CEREBRAL ARTERY: Unremarkable. No significant stenosis at the visualized segments. No aneurysm. LEFT POSTERIOR CEREBRAL ARTERY: Unremarkable. No significant stenosis at the visualized segments. No aneurysm. LEFT VERTEBRAL ARTERY: Unremarkable as visualized. No significant stenosis at the intradural/visualized segments. No aneurysm. BASILAR ARTERY: Unremarkable. No significant stenosis. No aneurysm. OTHER VASCULATURE: See above. MRI/MRA Head ONLY without Contrast IMPRESSION: 1. There is calcified plaque formation of the right cavernous carotid artery, with a mild stenosis (less than 50%). ALL ABOVE CRITERIA BY NASCET. 2. There is calcified plaque formation of the left cavernous carotid artery, with a mild stenosis (less than 50%). ALL ABOVE CRITERIA BY NASCET. Electronically Signed: Tripp Carr MD at 16:42 EDT ,
[2022-03-11 16:41] LABS: Troponin-I HS 24 pg/mL (3.0-78.0)
--- NOTE | 2022-03-11 17:26 | EKG12_ITS ---
Test Reason : Blood Pressure : / mmHG Vent. Rate : 077 BPM Atrial Rate : 077 BPM P-R Int : 212 ms QRS Dur : 092 ms QT Int : 390 ms P-R-T Axes : 084 -22 036 degrees QTc Int : 441 ms Sinus rhythm with 1st degree A-V block Minimal voltage criteria for LVH, may be normal variant ( R in aVL ) Borderline ECG When compared with ECG of 11-MAR-2022 10:28, MANUAL COMPARISON REQUIRED, DATA IS UNCONFIRMED Confirmed by BOUCHRA VILLA, FESTUS ([id number]), editor book ROCKY LO ([id number]) on 03/16/2022 9:44:31 AM Referred By: SHASHA Confirmed By:FESTUS SHOOK MD
[2022-03-11] MEDS: Insulin Lispro 100 UNIT/ML INSULN.PEN SC ×2 (17:40→21:47)
[2022-03-11 17:55] LABS: Bedside Glucose 192 mg/dL (74-106)
[2022-03-11] MEDS: hydrALAZINE 50 MG Tablet PO ×2 (18:12→21:48)
[2022-03-11 19:29] LABS: Troponin-I HS 33 pg/mL (3.0-78.0)
[2022-03-11] MEDS: 0.9% Saline Lock 10 ML Syringe IV (21:48)
[2022-03-11] MEDS: Atorvastatin Calcium 80 MG Tablet PO (21:48)
[2022-03-11 22:10] LABS: Bedside Glucose 348 mg/dL (74-106)
[2022-03-12] VITALS (14 sets, daily range): BP systolic 155–184; BP diastolic 67–81; PULSE 79–88; RESP 16–83; TEMP 36.6–37.7; O2SAT 95–98
--- NOTE | 2022-03-12 00:38 | PCM.PN.BLA ---
Progress Note Notify of persistent blood pressure elevation of systolic more than 175 despite despite hydralazine PRN Patient received all medications today Extra hydralazine 25 mg p.o. x1 given Will increase hydralazine to 75 mg p.o. 3 times daily Continue to monitor blood pressure
[2022-03-12] MEDS: hydrALAZINE 25 MG Tablet PO (00:49)
[2022-03-12] MEDS: Labetalol (Prefilled) 20 MG/4 ML 10 MG IV (01:31)
[2022-03-12] MEDS: 0.9% Saline Lock 10 ML Syringe IV (01:31)
[2022-03-12 01:59] LABS: Magnesium 1.5 mg/dL (1.6-2.6)
[2022-03-12 06:12] LABS: Absolute Lymphocyte Count 0.69 X10^3/uL (0.83-4.51); Absolute Neutrophil Count 2.8 X10^3/uL (2.0-7.7); Basophil# 0.02 X10^3/uL; Basophil% 0.5 % (0-1); Eosinophil# 0.01 X10^3/uL; Eosinophils% 0.2 % (0-5); Hematocrit 25.7 % (40-54); Hemoglobin 8.5 g/dL (13.0-16.5); Lymphocyte # 0.69 X10^3/ul (0.83-4.51); Lymphocyte % 16.8 % (19-41); Mean Corp Hgb Conc 33.1 g/dL (32-36); Mean Corpuscular Hgb 27.2 pg (27.0-32.0); Mean Corpuscular Volume 82.4 fL (80-94); Mean Platelet Vol. 9.8 fl (6.2-12.0); Monocyte# 0.48 X10^3/uL; Monocyte% 11.7 % (0-10); NRBC Flagged by Analyzer 0 % (0-5); Neutrophil # 2.81 X10^3/uL (2.7-7.7); Neutrophil % 68.6 % (47-70); Platelet Count 160 K/mm3 (150-450); RBC Distribution Width CV 13.7 % (11.6-14.6); RBC Distribution Width SD 41.3 fl (35.1-43.9); Red Blood Count 3.12 M/mm3 (4.6-6.2); White Blood Count 4.1 K/mm3 (4.4-11.0)
[2022-03-12] MEDS: Insulin Lispro 100 UNIT/ML INSULN.PEN SC ×2 (06:43→11:23)
[2022-03-12] MEDS: hydrALAZINE 25 MG Tablet 75 MG PO (06:43)
[2022-03-12 07:06] LABS: Bedside Glucose 302 mg/dL (74-106)
[2022-03-12 07:18] LABS: ALB/GLOB Ratio 0.7 RATIO (0.9-2.4); AST(SGOT) 29 U/L (15-37); Alanine Aminotransfer ALT/SGPT 27 U/L (16-61); Albumin, Serum 2.4 g/dL (3.2-5.0); Alkaline Phosphatase 112 U/L (45-117); Anion Gap 7 (5-15); BUN 41 mg/dL (7-18); BUN/Creat Ratio 18.3 RATIO (10-20); Calcium,Total 8.3 mg/dL (8.5-10.1); Chloride 110 mmol/L (98-107); Cholesterol 128 mg/dL (200); Creatinine, Serum 2.24 mg/dL (0.70-1.30); EST Glomerular Filtration Rate 32 mL/min (>60); Est Glom Filt Rate - Afr Amer 38 mL/min (>60); Estimated Creatinine Clearance 33.32 ml/min; Globulin 3.4 g/dL (2.2-4.2); Glucose 323 mg/dL (74-106); High Density Lipoprotein 25 mg/dL; Potassium 4.1 mmol/L (3.5-5.1); Protein, Total 5.8 g/dL (6.4-8.2); Sodium Level 137 mmol/L (136-145); Thyroid Stim Hormone (TSH) 1.05 uIU/mL (0.358-3.74); Triglycerides 374 mg/dL; Very Low Density Lipoprotein 75 mg/dL (5-40)
[2022-03-12] MEDS: Enoxaparin 30 MG/0.3 ML Syringe SC (08:25)
[2022-03-12] MEDS: Multivitamins,Therapeutic Tablet 1 TABLET PO (08:26)
[2022-03-12] MEDS: Tamsulosin HCl 0.4 MG Capsule PO (08:26)
[2022-03-12] MEDS: Clopidogrel Bisulfate 75 MG Tablet PO (08:26)
[2022-03-12] MEDS: amLODIPine 10 MG Tablet PO (08:26)
[2022-03-12] MEDS: Insulin Glargine-YFGN 100 UNIT/ML Pen 25 UNIT SC (08:27)
[2022-03-12] MEDS: Metoprolol(XL)Succ 100 MG Tablet PO (08:29)
--- NOTE | 2022-03-12 10:06 | DCINST_ITS ---
Discharge Instructions Diet Discharge Diet: Low fat / Low cholesterol Activity Discharge Activity: Return to Normal Activity Dressing / Incision Call your doctor if you observe: Numbness or Tingling Follow Up Care Test Results: Test results from this visit will be discussed in further detail at your follow- up appointment, if applicable. Discharge Plan Admission Admit Date/Time: 03/11/22 14:10 Primary Reason for Your Visit: Weakness Attending Provider: Roberto Whitmore Primary Care Provider: Vera Lucas Instructions Additional Instructions / Restrictions: Patient follows [facility] neurologist. Advised to follow-up. 2 weeks Discharge Orders/Prescriptions Prescriptions: Continued atorvastatin 80 MG tablet 80 mg PO DAILY metoprolol succinate 100 MG tablet extended release 24 hr 100 mg PO DAILY clopidogrel 75 MG tablet 75 mg PO DAILY insulin glargine [Lantus Solostar U-100 Insulin] 100 UNIT/ML insulin pen 25 units SQ DAILY multivitamin [Daily-Yousuf] Tablet 1 tab PO DAILY amlodipine 10 mg Tablet 10 mg PO DAILY glimepiride 4 mg Tablet 4 mg PO DAILY hydralazine 50 mg Tablet 50 mg PO TID tamsulosin [Flomax] 0.4 mg capsule 0.4 mg PO DAILY Referrals / Follow Up: Vera Lucas MD [Primary Care Provider] - Within 2 Weeks Disposition Disposition (needs filled in before D/C Order can be placed): Home, Self Care
--- NOTE | 2022-03-12 10:18 | DS.PCM_ITS ---
Documented by User: FRANCESCO Pierson 03/12/22 13:15 Providers Date of Admission: 03/11/22 Date of Discharge: 03/12/22 Primary Care Physician: Dr. Vera Lucas MD Reason For Visit: LEFT SIDED WEAKNESS Diagnosis Discharge Diagnosis (1) CVA (cerebral vascular accident): Status: Chronic Code(s): I63.9 - Cerebral infarction, unspecified (2) Anemia: Status: Acute Code(s): D64.9 - Anemia, unspecified Plan 1. Rule out CVA -Admit to PCU -CT demonstrates small lacunar infarct consistent with previous MRI, no acute findings -MRI head and MRA neck ordered -Echocardiogram ordered -CBC and CMP daily -NIH and vital sign monitoring per protocol -As needed hydralazine and labetalol ordered per protocol -Trend cardiac enzymes -Lipid profile in a.m. -PT, OT, ST to eval and treat 2. Chronic anemia -Hemoglobin 8.6, consistent with baseline -CBC daily 3. Hypertension -Continue patient's home medications -Vital signs per protocol, currently elevated but stable 4. Hyperlipidemia -Continue atorvastatin 5. Diabetes mellitus type 2 -Will continue patient's home insulin regimen -ACH S blood sugars with sliding scale insulin ordered 6. BPH -Continue tamsulosin 7. CKD stage IV -Creatinine 2.48, consistent with patient's baseline -CMP ordered daily DVT prophylaxis-SCDs This patient was seen by JOSE PiersonC under the supervision of Dr. Whitmore. 29 minutes spent in clinical coordination of patient's plan of care. Medications at Discharge Home Medications atorvastatin 80 mg tablet 80 mg PO DAILY cholesterol 03/04/19 clopidogrel 75 mg tablet 75 mg PO DAILY blood thinner 04/25/19 metoprolol succinate 100 mg tablet,extended release 24 hr 100 mg PO DAILY heart rate 04/25/19 amlodipine 10 mg tablet 10 mg PO DAILY HTN 03/11/22 glimepiride 4 mg tablet 4 mg PO DAILY DM 03/11/22 hydralazine 50 mg tablet 50 mg PO TID BP 03/11/22 multivitamin (Daily-Yousuf tablet) 1 tab PO DAILY SUPPLEMENT 03/11/22 tamsulosin 0.4 mg capsule (Flomax) 0.4 mg PO DAILY PROSTATE 03/11/22 insulin glargine 100 unit/mL (3 mL) subcutaneous pen (Lantus Solostar U-100 Insulin) 30 unit (0.3 mL) SQ DAILY diabetes #1 mL 03/12/22 Hospital Course Operations None Procedures 2-D Echocardiogram Summary of Care Provided Minutes Spent on Discharge: 35 Hospital Course: Patient is a 66-year-old male who initially presented with increased left-sided weakness. Patient had a prior stroke which left him with residual left-sided weakness. MRA head with mild stenosis less than 50% of the right and left cavernous carotid artery. MRA neck demonstrates no acute findings MRI brain no acute findings. Patient received echocardiogram which demonstrated EF 55 to 60%. Patient will be discharged home with instructions to follow-up with PCP. Physical Exam Const alert, oriented x3 and no apparent distress General Appearance: cooperative HEENT normocephalic and head/scalp atraumatic Eyes conjunctivae normal and no scleral icterus Neck supple General: trachea midline Resp normal respiratory effort and normal air movement Auscultation: diminished lung sounds Cardio regular rate, regular rhythm, S1 normal heart sound, S2 normal heart sound and peripheral pulses 2+ throughout GI normal to inspection, nondistended, normoactive bowel sounds, soft to palpation and non-tender Extremity normal capillary refill and no clubbing, cyanosis or edema Skin Lesions: no lesions Rashes: no rashes Neuro oriented x3 and moves all extremities Neuro Narrative: Left upper and lower extremity 4 out of 5 strength, right upper and lower ext remity 5 out of 5 strength Sensorium / Orientation: awake and alert Speech: speech normal Psych thought process normal, cooperative and affect normal Weight / BMI Weight Weight: 177 lb 14.609 oz Body Mass Index (BMI) 26.2 ABG / Lab / Microbiology Data Result Diagrams: 03/12/22 05:49 03/12/22 05:49 Laboratory: Laboratory Results - last 24 hr 03/11/22 10:15: WBC 5.3, RBC 3.22 L, Hgb 8.6 L, Hct 25.8 L, MCV 80.1, MCH 26.7 L , MCHC 33.3, RDW Std Deviation 38.7, RDW Coeff of Harry 13.5, Plt Count 198, MPV 9.8, Immature Gran % (Auto) 2.400 H, Neut % (Auto) 68.6, Lymph % (Auto) 17.3 L, Arroyo % (Auto) 10.0, Eos % (Auto) 1.3, Baso % (Auto) 0.4, Absolute Neuts (auto) 3.7, Absolute Lymphs (auto) 0.92, Nucleated RBC % 0 03/11/22 10:15: PT 12.9, INR 1.0, APTT 25.8 03/11/22 10:15: Sodium 139, Potassium 4.1, Chloride 111 H, Carbon Dioxide 19.0 L , Anion Gap 9, BUN 48 H, Creatinine 2.48 H, Estim Creat Clear Calc 30.09, Est GFR (MDRD) Af Amer 34 L, Est GFR (MDRD) Non-Af 28 L, BUN/Creatinine Ratio 19.4, Glucose 305 H, Calcium 8.8, Troponin I High Sens 21 03/11/22 12:37: Urine Color Straw, Urine Clarity Sl. Cloudy, Urine pH 6.0, Ur Specific [place] 1.010, Urine Protein 500 H, Urine Glucose (UA) 250 H, Urine Ketones Negative, Urine Occult Blood 25 H, Urine Nitrite Negative, Urine Bilirubin Negative, Urine Urobilinogen Normal, Ur Leukocyte Esterase 25 H, Urine RBC 0-5 SEEN, Urine WBC 0-5 SEEN, Ur Squamous Epith Cells 0-5 SEEN, Urine Bacteria 0 SEEN, Urine Mucus 0 SEEN 03/11/22 15:35: Troponin I High Sens 24 03/11/22 17:29: POC Glucose 192 H 03/11/22 18:45: Troponin I High Sens 33 03/11/22 21:45: POC Glucose 348 H 03/12/22 01:44: Magnesium 1.5 L 03/12/22 05:49: WBC 4.1 L, RBC 3.12 L, Hgb 8.5 L, Hct 25.7 L, MCV 82.4, MCH 27.2, MCHC 33.1, RDW Std Deviation 41.3, RDW Coeff of Harry 13.7, Plt Count 160, MPV 9.8, Immature Gran % (Auto) 2.200 H, Neut % (Auto) 68.6, Lymph % (Auto) 16.8 L, Arroyo % (Auto) 11.7 H, Eos % (Auto) 0.2, Baso % (Auto) 0.5, Absolute Neuts (auto) 2.8, Absolute Lymphs (auto) 0.69 L, Nucleated RBC % 0 03/12/22 05:49: Sodium 137, Potassium 4.1, Chloride 110 H, Carbon Dioxide 20.0 L , Anion Gap 7, BUN 41 H, Creatinine 2.24 H, Estim Creat Clear Calc 33.32, Est GFR (MDRD) Af Amer 38 L, Est GFR (MDRD) Non-Af 32 L, BUN/Creatinine Ratio 18.3, Glucose 323 H, Calcium 8.3 L, Total Bilirubin 0.40, AST 29, ALT 27, Alkaline Phosphatase 112, Total Protein 5.8 L, Albumin 2.4 L, Globulin 3.4, Albumin/Globulin Ratio 0.7 L, Triglycerides 374 H, Cholesterol 128, LDL Cholesterol 28, VLDL Cholesterol 75 H, HDL Cholesterol 25 L, TSH 1.05 03/12/22 05:49: Hemoglobin A1c 9.0 H 03/12/22 06:27: POC Glucose 302 H Microbiology: Microbiology 03/11/22 19:25 Mucosa - Nose Respiratory Panel (PCR) - Final 03/11/22 11:32 Nasal Secretion SARS-CoV-2 Antigen (Rapid) - Final Radiography Diagnostic Testing: Radiology Impression Brain MRI 03/11/22 00:00 IMPRESSION: No acute findings in the head/brain. Electronically Signed: Tripp Carr MD at 16:43 EDT , Brain CT 03/11/22 10:05 IMPRESSION: 1. Small focus of decreased density in the [place] which may represent a pontine infarct. No other acute abnormalities identified. 2. Underlying senescent change with small vessel ischemia. 3. Aspects score 10. Electronically Signed: Josias Jo MD at 10:20 EDT , ADDENDUM: 03/11/22 1029 IMPRESSION: 1. Small focus of decreased density in the [place] which may represent a pontine infarct. No other acute abnormalities identified. 2. Underlying senescent change with small vessel ischemia. 3. Aspects score 10. N.B. : The above Results were Read Back by Josias Jo MD to Taisha Luis, , DO, and understanding confirmed on 03/11/2022 10:22:46 (ET). Electronically Signed: Josias Jo MD at 10:20 EDT , ADDENDUM: 03/11/22 1034 IMPRESSION: undefined Chest X-Ray 03/11/22 10:05 IMPRESSION: No acute findings in the chest. Electronically Signed: Josias Jo MD at 11:06 EDT , Neck MRA 03/11/22 14:17 IMPRESSION: There are no acute findings of the right and left internal carotid artery. ALL ABOVE CRITERIA BY NASCET. Electronically Signed: Tripp Carr MD at 17:45 EDT , Head MRA 03/11/22 15:50 IMPRESSION: 1. There is calcified plaque formation of the right cavernous carotid artery, with a mild stenosis (less than 50%). ALL ABOVE CRITERIA BY NASCET. 2. There is calcified plaque formation of the left cavernous carotid artery, with a mild stenosis (less than 50%). ALL ABOVE CRITERIA BY NASCET. Electronically Signed: Tripp Carr MD at 16:42 EDT , D/C Instructions Discharge Diet: Low fat / Low cholesterol Call your doctor if you observe: Numbness or Tingling, Shortness of breath and Chest pain Meaningful Use Info Meaningful Use Diagnoses (Choose all that apply): None applicable Discharge Plan Admission Admit Date/Time: 03/11/22 14:10 Primary Reason for Your Visit: Weakness Attending Provider: Roberto Whitmore Primary Care Provider: Vera Lucas Instructions Additional Instructions / Restrictions: Patient follows [facility] neurologist. Advised to follow-up. 2 weeks Discharge Orders/Prescriptions Prescriptions: Continued atorvastatin 80 MG tablet 80 mg PO DAILY metoprolol succinate 100 MG tablet extended release 24 hr 100 mg PO DAILY clopidogrel 75 MG tablet 75 mg PO DAILY multivitamin [Daily-Yousuf] Tablet 1 tab PO DAILY amlodipine 10 mg Tablet 10 mg PO DAILY glimepiride 4 mg Tablet 4 mg PO DAILY hydralazine 50 mg Tablet 50 mg PO TID tamsulosin [Flomax] 0.4 mg capsule 0.4 mg PO DAILY Changed insulin glargine [Lantus Solostar U-100 Insulin] 100 UNIT/ML insulin pen 30 unit SQ DAILY Qty: 1 3RF Referrals / Follow Up: Vera Lucas MD [Primary Care Provider] - Within 2 Weeks Disposition Disposition (needs filled in before D/C Order can be placed): Home, Self Care Documented by User: Dr. Roberto Whitmore MD 03/12/22 14:52 Providers Date of Admission: 03/11/22 Reason For Visit: LEFT SIDED WEAKNESS Diagnosis Discharge Diagnosis (1) CVA (cerebral vascular accident): Status: Chronic Code(s): I63.9 - Cerebral infarction, unspecified (2) Anemia: Status: Acute Code(s): D64.9 - Anemia, unspecified Medications at Discharge Home Medications atorvastatin 80 mg tablet 80 mg PO DAILY cholesterol 03/04/19 clopidogrel 75 mg tablet 75 mg PO DAILY blood thinner 04/25/19 metoprolol succinate 100 mg tablet,extended release 24 hr 100 mg PO DAILY heart rate 04/25/19 amlodipine 10 mg tablet 10 mg PO DAILY HTN 03/11/22 glimepiride 4 mg tablet 4 mg PO DAILY DM 03/11/22 hydralazine 50 mg tablet 50 mg PO TID BP 03/11/22 multivitamin (Daily-Yousuf tablet) 1 tab PO DAILY SUPPLEMENT 03/11/22 tamsulosin 0.4 mg capsule (Flomax) 0.4 mg PO DAILY PROSTATE 03/11/22 insulin glargine 100 unit/mL (3 mL) subcutaneous pen (Lantus Solostar U-100 Insulin) 30 unit (0.3 mL) SQ DAILY diabetes #1 mL 03/12/22 Hospital Course Summary of Care Provided Hospital Course: Patient is a 66-year-old male who initially presented with increased left-sided weakness. Patient had a prior stroke which left him with residual left-sided weakness. MRA head with mild stenosis less than 50% of the right and left cavernous carotid artery. MRA neck demonstrates no acute findings MRI brain no acute findings. Patient received echocardiogram which demonstrated EF 55 to 60%. Patient will be discharged home with instructions to follow-up with PCP. This patient was seen in conjunction with RITA Pereira.? I have independently interviewed and examined the patient and reviewed pertinent history, examination findings, laboratory and plan of management.? I have? reviewed the note and a gree with the documented findings with the few additional points. This is 66-year-old with multiple comorbidities, CVA in 2019 admitted with worsening of left-sided weakness, and slurred speech, chest pain yesterday. 1.? Acute stroke ruled out. History of CVA in 2019: Patient is being admitted in PCU? On engine monitor.? Patient had MRI brain and MRA of head and neck. MRI brain does not show acute finding in the MRI brain. Head MRI shows less than 50% mild stenosis of bilateral cavernous carotid arteries. Neck MRA no acute finding in right and left ICA. 2D echo EF 55 to 60%. Mild AR. Urine negative for pyuria.? Patient had obesity 2.? Atypical chest pain on 03/10 for couple hours: Patient has a history of sick sinus syndrome, complete heart block, PSVT Status post pacemaker.? First troponin, has not been normal.? Twelve-lead EKG no significant previous EKG.? Cycle cardiac enzymes and repeat EKG was similar no acute change. Serial high- sensitivity troponins are negative. ACS ruled out. Patient does not have a history of prior CAD/cardiac cath or PCI. Follow with PCP 3.? CKD stage IV: Creatinine 2.4 at patient's baseline. Creatinine slightly better at 2.24. No significant difference in creatinine clearance. Monitor outpatient with PCP. Mild hypomagnesia, magnesium replaced. 4.? Hypertension: Patient's blood pressure is chronically elevated in the 170s the past history.? BP 155/67. Advised adherence to antihypertensive medi cations. 5.? Diabetes mellitus type 2, uncontrolled hyperglycemia with long-term complication diabetic neuropathy: Glucose 305.? Lantus 25 units subcutaneous daily home dose.?A1c 9.0%. Glucose 323 in BMP. Accu-Cheks before meals and at bedtime correctional sliding scale done. Patient back on glimepiride. Glargine insulin dose increased 6.? Chronic anemia, normocytic normocytic type probably due to CKD: Patient denies GI bleed.? Hemoglobin 8.5. Hemoglobin on baseline for last 1 year. 7.? Other comorbidities admission above includes dyslipidemia, BPH, history of CVA, low functional capacity: PT and OT ordered. I have discussed my assessment with RITA Pereira and orders have been reviewed. Discharge medication reconciliation done. Discharge follow-up instructions completed. Discharge process discussed with the patient and all questions were answered to patient's satisfaction. Total time spent, exact 35 minutes on discharge meds reconciliation, examination, coordination of care with nurses and ancillary staff, review of imaging and blood test and discussion with the patient on follow-up instructions. Microbiology Past 72 Hours 03/11/22 19:25 Mucosa - Nose Respiratory Panel (PCR) - Final 03/11/22 11:32 Nasal Secretion SARS-CoV-2 Antigen (Rapid) - Final Laboratory Results 03/11/22 15:35: Troponin I High Sens 24 03/11/22 17:29: POC Glucose 192 H 03/11/22 18:45: Troponin I High Sens 33 03/11/22 21:45: POC Glucose 348 H 03/12/22 01:44: Magnesium 1.5 L 03/12/22 05:49: WBC 4.1 L, RBC 3.12 L, Hgb 8.5 L, Hct 25.7 L, MCV 82.4, MCH 27.2, MCHC 33.1, RDW Std Deviation 41.3, RDW Coeff of Harry 13.7, Plt Count 160, MPV 9.8, Immature Gran % (Auto) 2.200 H, Neut % (Auto) 68.6, Lymph % (Auto) 16.8 L, Arroyo % (Auto) 11.7 H, Eos % (Auto) 0.2, Baso % (Auto) 0.5, Absolute Neuts (auto) 2.8, Absolute Lymphs (auto) 0.69 L, Nucleated RBC % 0 03/12/22 05:49: Sodium 137, Potassium 4.1, Chloride 110 H, Carbon Dioxide 20.0 L , Anion Gap 7, BUN 41 H, Creatinine 2.24 H, Estim Creat Clear Calc 33.32, Est GFR (MDRD) Af Amer 38 L, Est GFR (MDRD) Non-Af 32 L, BUN/Creatinine Ratio 18.3, Glucose 323 H, Calcium 8.3 L, Total Bilirubin 0.40, AST 29, ALT 27, Alkaline Phosphatase 112, Total Protein 5.8 L, Albumin 2.4 L, Globulin 3.4, Albumin/Globulin Ratio 0.7 L, Triglycerides 374 H, Cholesterol 128, LDL Cholesterol 28, VLDL Cholesterol 75 H, HDL Cholesterol 25 L, TSH 1.05 03/12/22 05:49: Hemoglobin A1c 9.0 H 03/12/22 06:27: POC Glucose 302 H Physical Exam Narrative Seen and examined on the day of discharge. Patient seems more stronger on the left lower extremity. General: Alert, Oriented x3, Cooperative HEENT: Atraumatic, PERRLA, EOMI, Normocephalic Oral: Oral mucosa moist. No Gingival or Mucosal Lesions/ Ulcerations Neck: Supple, No JVD, Negative Carotid Bruits Lungs: Air entry diminished in bilateral lung bases. No crepitation/rhonchi Cardiovascular: Sinus rhythm, Regular Rhythm, Normal S1, Normal S2, no murmur gallop rub. There subclavicular pacemaker Abdomen: Bowel Sounds Present, Soft, Non Tender, Non-Distended : No renal angle tenderness. No suprapubic tenderness. Extremities: No edema, Capillary Refill Less than 3 Seconds Skin: No rashes, No breakdown Musculoskeletal: Moderate muscle atrophy of extremities: Left hip, knee and ankle joint muscle strength 4/5. RLE 4+/5 at major joints. Uses diabetic shoes. Pans-nh-bgbs and ocdzyg-my-mebh test are negative. Neurological: Cranial nerves II-XII grossly intact, DTR 2+/4 and Symmetrical, left-sided weakness. Psych/Mental Status: Normal Affect, Appropriate. ABG / Lab / Microbiology Data Result Diagrams: 03/12/22 05:49 03/12/22 05:49 Discharge Plan Admission Admit Date/Time: 03/11/22 14:10 Primary Reason for Your Visit: Weakness Attending Provider: Roberto Whitmore Primary Care Provider: Vera Lucas Instructions Additional Instructions / Restrictions: Patient follows [facility] neurologist. Advised to follow-up. 2 weeks Discharge Orders/Prescriptions Prescriptions: Continued atorvastatin 80 MG tablet 80 mg PO DAILY metoprolol succinate 100 MG tablet extended release 24 hr 100 mg PO DAILY clopidogrel 75 MG tablet 75 mg PO DAILY multivitamin [Daily-Yousuf] Tablet 1 tab PO DAILY amlodipine 10 mg Tablet 10 mg PO DAILY glimepiride 4 mg Tablet 4 mg PO DAILY hydralazine 50 mg Tablet 50 mg PO TID tamsulosin [Flomax] 0.4 mg capsule 0.4 mg PO DAILY Changed insulin glargine [Lantus Solostar U-100 Insulin] 100 UNIT/ML insulin pen 30 unit SQ DAILY Qty: 1 3RF Referrals / Follow Up: Vera Lucas MD [Primary Care Provider] - Within 2 Weeks Disposition Disposition (needs filled in before D/C Order can be placed): Home, Self Care Charges/Coding Visit Charges OBSV E&M: 43573 Observation care discharge
== END 2022-03-12 10:16 | disposition home or self-care (01) ==
LOC: ED 10:32 → PCU 14:33
PROVIDERS: Internal Medicine; Nurse Practitioner Family; Admitting Provider Internal Medicine; Emergency Provider Emergency Medicine; PCP Internal Medicine; Visit Provider Internal Medicine
DX: R47.81 Slurred speech (principal); I69.354 Hemiplegia and hemiparesis following cerebral infarction affecting left non-dominant side; E11.22 Type 2 diabetes mellitus with diabetic chronic kidney disease; N18.4 Chronic kidney disease, stage 4 (severe); Z79.4 Long term (current) use of insulin; Z87.891 Personal history of nicotine dependence; I12.9 Hypertensive chronic kidney disease with stage 1 through stage 4 chronic kidney disease, or unspecified chronic kidney disease; R06.02 Shortness of breath; Z95.0 Presence of cardiac pacemaker; R53.1 Weakness; Z79.02 Long term (current) use of antithrombotics/antiplatelets; R07.2 Precordial pain; R35.0 Frequency of micturition; D64.9 Anemia, unspecified; E78.5 Hyperlipidemia, unspecified; Z79.899 Other long term (current) drug therapy; Z86.718 Personal history of other venous thrombosis and embolism; N40.0 Benign prostatic hyperplasia without lower urinary tract symptoms
CPT/HCPCS: 36415; 70450; 70544; 70547; 70551; 71045; 80048; 80053; 80061; 81001; 82962; 83036; 83735; 84443; 84484; 85025; 85610; 85730; 87633; 87811; 92610; 93005; 93306; 94762; 96361; 96372; 96374; 97162; 97165; 99218; 99285; J7030; A4216; G0378

== ENCOUNTER 2022-03-18 10:45 | Observation (INO) | payer MEDICAID, SELFPAY ==
[2022-03-18] VITALS (11 sets, daily range): BP systolic 144–163; BP diastolic 71–82; PULSE 81–95; RESP 18–24; TEMP 36.8–37.8; O2SAT 94–97; BMI 25.3; BMI 24.3
--- NOTE | 2022-03-18 10:58 | EKG12_ITS ---
Test Reason : HYPOGLYCEMIC Blood Pressure : / mmHG Vent. Rate : 082 BPM Atrial Rate : 082 BPM P-R Int : 196 ms QRS Dur : 086 ms QT Int : 406 ms P-R-T Axes : 045 -25 -27 degrees QTc Int : 474 ms Normal sinus rhythm Minimal voltage criteria for LVH, may be normal variant ( R in aVL ) Inferior infarct , age undetermined , cannot be excluded Possible Anterior infarct , age undetermined Abnormal ECG Confirmed by ANNALISA VILLA, NINI ([id number]), editor news ROCKY LO ([id number]) on 03/19/2022 7:28:25 AM Referred By: Confirmed By:NINI FANG MD
[2022-03-18] MEDS: Dextrose 50%-Water 25 GM/50 ML DISP.SYRIN IV (11:02)
[2022-03-18] MEDS: Glucagon 1 MG/ML Syringe IM (11:02)
--- NOTE | 2022-03-18 11:12 | EX.ED.DYSGE1 ---
HPI <FRANCESCO King - Last Filed: 03/18/22 13:43> History of Present Illness Chief Complaint: Hypoglycemia Narrative Narrative: 66-year-old male presents to the emergency department by EMS secondary to hypoglycemia. Patient does have history of chronic kidney disease, TIA, left-sided weakness, hyperlipidemia, diabetes. Patient was diagnosed with COVID-19 at another facility on Monday the , patient was also admitted here on the secondary to TIA. Patient lives by himself, he is not been able to eat or drink, his friend saw him and he was lethargic, his blood sugar was 37. Patient arrives with a blood sugar in the mid 30s, incontinent of urine, and unkempt. Patient denies any physical pain, patient is alert however is lethargic. [facility] <FRANCESCO King - Last Filed: 03/18/22 13:43> [facility] Medical History (Updated 03/18/22 @ 13:41 by FRANCESCO King) Complete heart block (02/2019) COVID CVA (cerebral vascular accident) (02/2019) Diabetes mellitus DVT (deep venous thrombosis) Essential (primary) hypertension Former smoker HLD (hyperlipidemia) Kidney disease Migraines Pacemaker Paroxysmal supraventricular tachycardia (06/2017) Sick sinus syndrome Sinus pause Tachyarrhythmia Type II diabetes mellitus, uncontrolled Home Medications atorvastatin 80 mg tablet 80 mg PO DAILY cholesterol 03/04/19 [History Last Taken 03/11/22] clopidogrel 75 mg tablet 75 mg PO DAILY blood thinner 04/25/19 [History Last Taken 03/11/22] metoprolol succinate 100 mg tablet,extended release 24 hr 100 mg PO DAILY heart rate 04/25/19 [History Last Taken 03/11/22] amlodipine 10 mg tablet 10 mg PO DAILY HTN 03/11/22 [History Last Taken 03/11/22] glimepiride 4 mg tablet 4 mg PO DAILY DM 03/11/22 [History Last Taken 03/10/22] hydralazine 50 mg tablet 50 mg PO TID BP 03/11/22 [History Last Taken 03/11/22] multivitamin (Daily-Yousuf tablet) 1 tab PO DAILY SUPPLEMENT 03/11/22 [History Last Taken 03/11/22] tamsulosin 0.4 mg capsule (Flomax) 0.4 mg PO DAILY PROSTATE 03/11/22 [History Last Taken 03/10/22] insulin glargine 100 unit/mL (3 mL) subcutaneous pen (Lantus Solostar U-100 Insulin) 30 unit (0.3 mL) SQ DAILY diabetes #1 mL 03/12/22 [Rx Last Taken Unknown] Allergy/AdvReac Type Severity Reaction Status Date / Time metformin [From Glucophage] AdvReac Diarrhea Verified 03/18/22 10:50 Family History Mother Cancer Father Heart disease Hypertension Myocardial infarction Surgical History History of carpal tunnel release History of permanent cardiac pacemaker placement (03/05/19) Social History household members: none Smoking Status: Former smoker Smokeless tobacco user: other alcohol intake: never substance use type: does not use ROS <FRANCESCO King - Last Filed: 03/18/22 13:43> ROS ED ROS Narrative Constitutional: Negative for fever, chills, weight loss. Positive for weakness Eyes: Negative for vision loss, vision change, double vision ENT: Negative for any sore throat, ear pain. Positive for congestion Cardiovascular: Negative for any chest pain, tightness, palpitations Respiratory: Negative for any cough, sputum production, hemoptysis, dyspnea, dyspnea on exertion, orthopnea Gastrointestinal: Negative for any abdominal pain, nausea, vomiting, diarrhea, constipation, blood in stool, blood in vomit : Negative for any urinary frequency, dysuria, retention, blood in urine Muscle skeletal: Negative for any muscle joint pain, stiffness, myalgias, arthralgias, neck pain, back pain Neurological: Negative for any headache, syncope, numbness or tingling, dizziness Skin: Negative for any rashes, lumps, itching, abrasions, lacerations Psychiatric: Negative for any depression, anxiety, stress, suicidal ideation, homicidal ideation Hematologic: Negative for any easy bruising, excessive bruising, easy bleeding Allergies: Negative for any eczema, hives, rash EXAM <FRANCESCO King - Last Filed: 03/18/22 13:43> Physical Exam Narrative Exam Narrative: Vital signs reviewed. Patient appears lethargic, unkempt, incontinent of urine., Blood sugar was 37 on arrival. HEET: Head normocephalic atraumatic, TMs clear bilaterally. Posterior pharynx is clear, dry mucous membranes. Nares clear bilaterally. Neck: Supple with no lymphadenopathy or tenderness. No signs of meningismus, negative jolt sign. Cardiac: Regular rate and rhythm no murmurs gallops or rubs, equal peripheral pulses bilaterally. Respiratory: Lungs show crackles, diminished lung sounds in the bases. No chest tenderness. Abdomen: Soft, nontender, nondistended. No abdominal bruit or pulsatile masses. No hepatosplenomegaly Extremities: No peripheral edema, no signs of gross trauma or deformity. Active full range of motion of all extremities. Neuro: Cranial nerves II through XII intact, no focal neurological deficits. Skin: Clean dry and intact with no rash, purpura, petechiae, vesicles or pustules. Backs/flank: No CVA tenderness, no midline spinal tenderness, no deformity. Psych: Normal mood and affect. No SI, HI or acute psychosis. Const Vital Signs: 03/18/22 10:47 03/18/22 10:58 03/18/22 10:59 Temperature 98.5 F Temperature Source Oral Pulse Rate 81 83 Respiratory Rate 24 H 22 H Respiratory Effort Respiratory Pattern Blood Pressure 163/82 H 163/82 H Blood Pressure Mean 109 109 Pulse Ox 97 96 Oxygen Delivery Method Room Air Room Air Room Air 03/18/22 11:04 03/18/22 12:11 03/18/22 13:47 Temperature 99.3 F H 99.3 F H Temperature Source Oral Oral Pulse Rate 88 83 Respiratory Rate 19 H 24 H Respiratory Effort Normal Non-Labored Respiratory Pattern Normal Blood Pressure 144/73 H 162/71 H Blood Pressure Mean 96 101 Pulse Ox 97 97 Oxygen Delivery Method Room Air Room Air Positive unkempt General Appearance ED: unkempt Psych Appearance: unkempt <Dr. Juice Suero, DO - Last Filed: 03/18/22 14:03> Physical Exam Const Vital Signs: 03/18/22 10:47 03/18/22 10:58 03/18/22 10:59 Temperature 98.5 F Temperature Source Oral Pulse Rate 81 83 Respiratory Rate 24 H 22 H Respiratory Effort Respiratory Pattern Blood Pressure 163/82 H 163/82 H Blood Pressure Mean 109 109 Pulse Ox 97 96 Oxygen Delivery Method Room Air Room Air Room Air 03/18/22 11:04 03/18/22 12:11 03/18/22 13:47 Temperature 99.3 F H 99.3 F H Temperature Source Oral Oral Pulse Rate 88 83 Respiratory Rate 19 H 24 H Respiratory Effort Normal Non-Labored Respiratory Pattern Normal Blood Pressure 144/73 H 162/71 H Blood Pressure Mean 96 101 Pulse Ox 97 97 Oxygen Delivery Method Room Air Room Air [facility] <FRANCESCO King - Last Filed: 03/18/22 13:43> [facility] Lab Data Labs: Laboratory Results - last 24 hr 03/18/22 03/18/22 03/18/22 10:52 11:16 11:20 WBC 3.9 L RBC 3.31 L Hgb 8.9 L Hct 26.9 L MCV 81.3 MCH 26.9 L MCHC 33.1 RDW Std Deviation 41.1 RDW Coeff of Harry 13.7 Plt Count 209 MPV 9.7 Immature Gran % (Auto) 0.800 Neut % (Auto) 76.1 H Lymph % (Auto) 13.7 L Metcalfe % (Auto) 9.1 Eos % (Auto) 0.0 Baso % (Auto) 0.3 Absolute Neuts (auto) 2.9 Absolute Lymphs (auto) 0.53 L Nucleated RBC % 0 Differential Comment Diff Path Review May foll Platelet Estimate ADEQUATE RBC Morphology NORM C+C PT INR APTT Sodium Potassium Chloride Carbon Dioxide Anion Gap BUN Creatinine Estim Creat Clear Calc Est GFR (MDRD) Af Amer Est GFR (MDRD) Non-Af BUN/Creatinine Ratio Glucose Lactic Acid Calcium Total Bilirubin AST ALT Alkaline Phosphatase Total Protein Albumin Globulin Albumin/Globulin Ratio Urine Color Urine Clarity Urine pH Ur Specific [place] Urine Protein Urine Glucose (UA) Urine Ketones Urine Occult Blood Urine Nitrite Urine Bilirubin Urine Urobilinogen Ur Leukocyte Esterase Urine RBC Urine WBC Ur Squamous Epith Cells Urine Bacteria Fine Granular Casts Urine Mucus POC Glucose 37 L* 262 H 03/18/22 03/18/22 03/18/22 11:20 11:20 11:20 WBC RBC Hgb Hct MCV MCH MCHC RDW Std Deviation RDW Coeff of Harry Plt Count MPV Immature Gran % (Auto) Neut % (Auto) Lymph % (Auto) Metcalfe % (Auto) Eos % (Auto) Baso % (Auto) Absolute Neuts (auto) Absolute Lymphs (auto) Nucleated RBC % Differential Comment Diff Path Review Platelet Estimate RBC Morphology PT 12.8 INR 1.0 APTT 30.2 Sodium 141 Potassium 3.9 Chloride 115 H Carbon Dioxide 18.0 L Anion Gap 8 BUN 42 H Creatinine 2.47 H Estim Creat Clear Calc 30.21 Est GFR (MDRD) Af Amer 34 L Est GFR (MDRD) Non-Af 28 L BUN/Creatinine Ratio 17.0 Glucose 45 L Lactic Acid 1.0 Calcium 7.7 L Total Bilirubin 0.30 AST 35 ALT 26 Alkaline Phosphatase 104 Total Protein 6.2 L Albumin 2.4 L Globulin 3.8 Albumin/Globulin Ratio 0.6 L Urine Color Urine Clarity Urine pH Ur Specific [place] Urine Protein Urine Glucose (UA) Urine Ketones Urine Occult Blood Urine Nitrite Urine Bilirubin Urine Urobilinogen Ur Leukocyte Esterase Urine RBC Urine WBC Ur Squamous Epith Cells Urine Bacteria Fine Granular Casts Urine Mucus POC Glucose 03/18/22 11:40 WBC RBC Hgb Hct MCV MCH MCHC RDW Std Deviation RDW Coeff of Harry Plt Count MPV Immature Gran % (Auto) Neut % (Auto) Lymph % (Auto) Metcalfe % (Auto) Eos % (Auto) Baso % (Auto) Absolute Neuts (auto) Absolute Lymphs (auto) Nucleated RBC % Differential Comment Diff Path Review Platelet Estimate RBC Morphology PT INR APTT Sodium Potassium Chloride Carbon Dioxide Anion Gap BUN Creatinine Estim Creat Clear Calc Est GFR (MDRD) Af Amer Est GFR (MDRD) Non-Af BUN/Creatinine Ratio Glucose Lactic Acid Calcium Total Bilirubin AST ALT Alkaline Phosphatase Total Protein Albumin Globulin Albumin/Globulin Ratio Urine Color Yellow Urine Clarity Clear Urine pH 5.0 Ur Specific [place] 1.020 Urine Protein 500 H Urine Glucose (UA) Normal Urine Ketones Negative Urine Occult Blood 10 H Urine Nitrite Negative Urine Bilirubin Negative Urine Urobilinogen Normal Ur Leukocyte Esterase Negative Urine RBC 0-5 SEEN Urine WBC 0 SEEN Ur Squamous Epith Cells 0 SEEN Urine Bacteria 0 SEEN Fine Granular Casts 0-5 SEEN Urine Mucus 0 SEEN POC Glucose Radiography Diagnostic Testing: Clinical Impression(s) from Imaging Studies Chest X-Ray 03/18/22 11:45 IMPRESSION: Right lower lobe pneumonia. Electronically Signed: Danny Mcdaniel MD at 11:59 EDT , Treatment and Re-Evaluation Narrative: On initial arrival, the patient did appear to be lethargic, patient's vital signs are stable, patient was nonhypoxic. He was alert and oriented however slow to respond. Initial blood sugar was 37, patient was able to drink orange juice however he also was given IM glucagon secondary to inability to obtain IV access. Patient did receive IV access will receive his sepsis work-up as well as D10 IV fluid. Patient did receive a sepsis work-up, patient after IV dextrose was much more alert and oriented, was able to eat by mouth fluids, as well as eat a meal.Patient did have multiple laboratory studies, patient's white blood count was 3.9 with a hemoglobin 8.9, this is chronic for the patient. Patient's PT/INR is within normal limits, patient's chemistries show chronic renal failure with a creatinine of 2.47 patient's lactic acid was 1, patient's chest x-ray inter by ER physician shows a right lower lobe pneumonia. Patient received IV fluids, IV Zithromax, Rocephin. This will cover for community acquired pneumonia. Due to the patient's inability to care for himself, his COVID-19 positive status, showing right lower lobe pneumonia, I do believe the patient will need to be admitted to the hospital. Patient admitted to Dr. Stark service. Patient stable <Dr. Juice Suero, DO - Last Filed: 03/18/22 14:03> [facility] Narrative Medical decision making narrative: I have personally performed a face to face assessment of the patient and have reviewed the JAMI Note. I performed a substantive portion of the visit including all aspects of the following. My dacosta findings include: History: Patient presents with generalized weakness that has been getting progressively worse over the past few days. Patient states he tested positive for COVID-19 approximately 6 days ago. Patient was noted to be hypoglycemic today. Patient's blood sugar at home was 37 by EMS. EMS administered 1 mg of glucagon IM. Patient's blood sugar was better here. Patient was given a dose of D50 here and a regular diet tray. Exam: Vital signs are stable. Patient is afebrile. Patient is in no acute distress. Oral mucosa is pink and moist. Neck is supple. Trachea is midline. There is no JVD. Heart was regular rate and rhythm. Lungs are clear and equal bilaterally. Abdomen is soft and nontender. Cranial nerves II through XII are intact. There are no focal motor or sensory deficits. Medical Decision Making: Patient was given D50 and a regular diet tray here. Patient is feeling somewhat better on reevaluation. CBC shows a mild anemia with a hemoglobin of 8.9 and hematocrit 26.9. These are stable compared to previous results. Comprehensive metabolic profile showed an elevated BUN of 42 and creatinine of 2.47. These are consistent with prior results. Lactate was normal. Urinalysis does not show any evidence of urinary tract infection. Case was discussed with the hospitalist. She will admit the patient to her service. Patient understood and was agreeable with the plan. All questions were answered. Lab Data Attestation: I reviewed the patient's lab results. Labs: Laboratory Results - last 24 hr 03/18/22 03/18/22 03/18/22 10:52 11:16 11:20 WBC 3.9 L RBC 3.31 L Hgb 8.9 L Hct 26.9 L MCV 81.3 MCH 26.9 L MCHC 33.1 RDW Std Deviation 41.1 RDW Coeff of Harry 13.7 Plt Count 209 MPV 9.7 Immature Gran % (Auto) 0.800 Neut % (Auto) 76.1 H Lymph % (Auto) 13.7 L Metcalfe % (Auto) 9.1 Eos % (Auto) 0.0 Baso % (Auto) 0.3 Absolute Neuts (auto) 2.9 Absolute Lymphs (auto) 0.53 L Nucleated RBC % 0 Differential Comment Diff Path Review May foll Platelet Estimate ADEQUATE RBC Morphology NORM C+C PT INR APTT Sodium Potassium Chloride Carbon Dioxide Anion Gap BUN Creatinine Estim Creat Clear Calc Est GFR (MDRD) Af Amer Est GFR (MDRD) Non-Af BUN/Creatinine Ratio Glucose Lactic Acid Calcium Total Bilirubin AST ALT Alkaline Phosphatase Total Protein Albumin Globulin Albumin/Globulin Ratio Urine Color Urine Clarity Urine pH Ur Specific [place] Urine Protein Urine Glucose (UA) Urine Ketones Urine Occult Blood Urine Nitrite Urine Bilirubin Urine Urobilinogen Ur Leukocyte Esterase Urine RBC Urine WBC Ur Squamous Epith Cells Urine Bacteria Fine Granular Casts Urine Mucus POC Glucose 37 L* 262 H 03/18/22 03/18/22 03/18/22 11:20 11:20 11:20 WBC RBC Hgb Hct MCV MCH MCHC RDW Std Deviation RDW Coeff of Harry Plt Count MPV Immature Gran % (Auto) Neut % (Auto) Lymph % (Auto) Metcalfe % (Auto) Eos % (Auto) Baso % (Auto) Absolute Neuts (auto) Absolute Lymphs (auto) Nucleated RBC % Differential Comment Diff Path Review Platelet Estimate RBC Morphology PT 12.8 INR 1.0 APTT 30.2 Sodium 141 Potassium 3.9 Chloride 115 H Carbon Dioxide 18.0 L Anion Gap 8 BUN 42 H Creatinine 2.47 H Estim Creat Clear Calc 30.21 Est GFR (MDRD) Af Amer 34 L Est GFR (MDRD) Non-Af 28 L BUN/Creatinine Ratio 17.0 Glucose 45 L Lactic Acid 1.0 Calcium 7.7 L Total Bilirubin 0.30 AST 35 ALT 26 Alkaline Phosphatase 104 Total Protein 6.2 L Albumin 2.4 L Globulin 3.8 Albumin/Globulin Ratio 0.6 L Urine Color Urine Clarity Urine pH Ur Specific [place] Urine Protein Urine Glucose (UA) Urine Ketones Urine Occult Blood Urine Nitrite Urine Bilirubin Urine Urobilinogen Ur Leukocyte Esterase Urine RBC Urine WBC Ur Squamous Epith Cells Urine Bacteria Fine Granular Casts Urine Mucus POC Glucose 03/18/22 11:40 WBC RBC Hgb Hct MCV MCH MCHC RDW Std Deviation RDW Coeff of Harry Plt Count MPV Immature Gran % (Auto) Neut % (Auto) Lymph % (Auto) [place]cal[place] % (Auto) Eos % (Auto) Baso % (Auto) Absolute Neuts (auto) Absolute Lymphs (auto) Nucleated RBC % Differential Comment Diff Path Review Platelet Estimate RBC Morphology PT INR APTT Sodium Potassium Chloride Carbon Dioxide Anion Gap BUN Creatinine Estim Creat Clear Calc Est GFR (MDRD) Af Amer Est GFR (MDRD) Non-Af BUN/Creatinine Ratio Glucose Lactic Acid Calcium Total Bilirubin AST ALT Alkaline Phosphatase Total Protein Albumin Globulin Albumin/Globulin Ratio Urine Color Yellow Urine Clarity Clear Urine pH 5.0 Ur Specific [place] 1.020 Urine Protein 500 H Urine Glucose (UA) Normal Urine Ketones Negative Urine Occult Blood 10 H Urine Nitrite Negative Urine Bilirubin Negative Urine Urobilinogen Normal Ur Leukocyte Esterase Negative Urine RBC 0-5 SEEN Urine WBC 0 SEEN Ur Squamous Epith Cells 0 SEEN Urine Bacteria 0 SEEN Fine Granular Casts 0-5 SEEN Urine Mucus 0 SEEN POC Glucose Radiography Diagnostic Testing: Clinical Impression(s) from Imaging Studies Chest X-Ray 03/18/22 11:45 IMPRESSION: Right lower lobe pneumonia. Electronically Signed: Danny Mcdaniel MD at 11:59 EDT , Discharge Plan Dx/Rx/DC Orders Clinical Impression: COVID-19, Hypoglycemia, Adult failure to thrive, Pneumonia of right lower lobe due to infectious organism Disposition Disposition: Acute Care Hospital [facility]
[2022-03-18 11:42] LABS: Bacteria 0 SEEN /hpf (None Seen); Mucous, Urine 0 SEEN /hpf (<or=2+); Squamous Epithelial Cells - UA 0 SEEN /hpf (0-5); White Blood Cells 0 SEEN /hpf (0-5)
--- NOTE | 2022-03-18 11:45 | RAD_ITS ---
STUDY: X-RAY CHEST REASON FOR EXAM: Male, 66 years old. Covid TECHNIQUE: Single AP portable view of the chest. COMPARISON: 03/11/2022 FINDINGS: Left subclavian pacemaker which is unchanged. Focal alveolar opacity in lower right lung consistent with right lower lobe pneumonia. There is no demonstrated pleural abnormality. Normal size heart. Normal mediastinum and merna. Normal visualized pulmonary arteries. Normal visualized aortic arch and descending thoracic aorta. Normal visualized thoracic spine. Normal visualized ribs, clavicles, and shoulders. There is no demonstrated abnormality of the visualized soft tissue structures of the upper abdomen. RAD/Chest 1 View (Portable) IMPRESSION: Right lower lobe pneumonia. Electronically Signed: Danny Mcdaniel MD at 11:59 EDT ,
[2022-03-18 11:47] LABS: Color, Urine Yellow (Yellow); Glucose, Dipstick Normal (Normal); Ketone-Dipstick Negative (Negative); Leukocyte Esterase-Dipstick Negative /ul (Negative); Nitrite-Dipstick Negative (Negative); Occult Blood-Urine 10 /ul (Negative); Protein-Dipstick 500 mg/dl (Negative); Urine Bilirubin Dipstick Negative (Negative); Urine Clarity Clear (Clear); Urine Urobilinogen Normal (Normal)
[2022-03-18 11:47] LABS: Partial Thromboplast Time 30.2 Seconds (24.1-36.2); Prothrombin Time (Protime)PT. 12.8 SECONDS (11.7-14.9)
[2022-03-18 11:50] LABS: Bedside Glucose 262 mg/dL (74-106)
[2022-03-18 11:50] LABS: Bedside Glucose 37 mg/dL (74-106)
[2022-03-18 11:57] LABS: ALB/GLOB Ratio 0.6 RATIO (0.9-2.4); AST(SGOT) 35 U/L (15-37); Alanine Aminotransfer ALT/SGPT 26 U/L (16-61); Albumin, Serum 2.4 g/dL (3.2-5.0); Alkaline Phosphatase 104 U/L (45-117); Anion Gap 8 (5-15); BUN 42 mg/dL (7-18); Calcium,Total 7.7 mg/dL (8.5-10.1); Chloride 115 mmol/L (98-107); Creatinine, Serum 2.47 mg/dL (0.70-1.30); EST Glomerular Filtration Rate 28 mL/min (>60); Est Glom Filt Rate - Afr Amer 34 mL/min (>60); Estimated Creatinine Clearance 30.21 ml/min; Globulin 3.8 g/dL (2.2-4.2); Glucose 45 mg/dL (74-106); Potassium 3.9 mmol/L (3.5-5.1); Protein, Total 6.2 g/dL (6.4-8.2); Sodium Level 141 mmol/L (136-145)
[2022-03-18 12:02] LABS: Fine Granular Cast- Urine 0-5 SEEN /lpf (0-5)
[2022-03-18 12:06] LABS: Red Blood Cells-Urine 0-5 SEEN /hpf (0-5)
--- NOTE | 2022-03-18 12:15 | ED.RN ---
Addendum entered by Laurie Blanca 03/18/22 12:16: attempted to call- phone call unable to go through. Original Note: called kait cordova for pt. called Fern with pt update
[2022-03-18 12:42] LABS: Absolute Lymphocyte Count 0.53 X10^3/uL (0.83-4.51); Absolute Neutrophil Count 2.9 X10^3/uL (2.0-7.7); Basophil# 0.01 X10^3/uL; Basophil% 0.3 % (0-1); Hematocrit 26.9 % (40-54); Hemoglobin 8.9 g/dL (13.0-16.5); Lymphocyte # 0.53 X10^3/ul (0.83-4.51); Lymphocyte % 13.7 % (19-41); Mean Corp Hgb Conc 33.1 g/dL (32-36); Mean Corpuscular Hgb 26.9 pg (27.0-32.0); Mean Corpuscular Volume 81.3 fL (80-94); Mean Platelet Vol. 9.7 fl (6.2-12.0); Monocyte# 0.35 X10^3/uL; Monocyte% 9.1 % (0-10); NRBC Flagged by Analyzer 0 % (0-5); Neutrophil # 2.94 X10^3/uL (2.7-7.7); Neutrophil % 76.1 % (47-70); POSITIVE DIFFERENTIAL YES; Platelet Count 209 K/mm3 (150-450); RBC Distribution Width CV 13.7 % (11.6-14.6); RBC Distribution Width SD 41.1 fl (35.1-43.9); Red Blood Count 3.31 M/mm3 (4.6-6.2); White Blood Count 3.9 K/mm3 (4.4-11.0)
[2022-03-18 12:46] LABS: Differential Indicated SCAN CRITERIA MET
[2022-03-18] MEDS: Ceftriaxone 1 GM/50 ML BAG IV (13:03)
[2022-03-18 13:19] LABS: Platelet Estimate ADEQUATE (ADEQ); Red Cell Morphology NORM C+C NORMAL (NORM C&C)
--- NOTE | 2022-03-18 13:22 | HP.PCM.HOS_ITS ---
HPI - General General Date of Admission: 03/18/22 Date of Service: 03/18/22 Chief Complaint: Recent COVID illness, FTT adult, poor intake, hypoglycemic. HPI Narrative The patient is a 65 y/o M w/ PMHx: Chronic anemia, Hx TIA/CVA with chronic mild left-sided hemiparesis, HTN, HLD, Hx SSS/complete heart block s/p pacemaker placement, Hx PSVT, Diabetes mellitus type II, CKD stage IIIIb, Former tobacco use who presents to the [facility] ED on 03/18/22 with history of recent diagnosis of COVID-19 acute illness on Monday prior to presentation 03/14/2022 with additionally recent evaluation at [facility] 03/11/2022 secondary to TIA at that time with since onset of his illness with nausea, inability to have appropriate oral intake, loose stools, frontal headaches, sore aching throat, congestion, cough although not significantly productive sputum but clear with dyspnea sensation as well as body aches, low-grade temperatures and chills, increased lethargy and hypoglycemia prompting EMS call with blood sugar upon their evaluation noted to be in the 30s with unkempt appearance and obviously incontinent of urine prompting patient transition to the ED for evaluation. Patient denies having any COVID vaccination history. Work-up in the ED included T98.5, heart rate 81, BP 163/82, respiratory rate 24, 97% on room air however T- max in the ED noted to be 99.3, CBC with WC 3.9, hemoglobin 8.9, platelet 209 with lymphopenia, unremarkable coags, CMP with chloride 115, complex at 18, BUN/creat 42/2.47, glucose 45, lactic acid 1.0 otherwise hepatic profile not marked appearing, urinalysis with evidence of dehydration with specific rapid elevation 1.020, protein 500, occult blood 10, negative nitrite, negative leukocyte Estrace, no evidence of UTI, initial blood glucose 37 with BMP repeat as noted 45 and most recently 11:16 AM 262, blood culture x2 pending per ED, urine culture pending per ED, chest x-ray with evidence of a right lower lobe pneumonia. In the ED patient administered dextrose amp, glucagon, Rocephin and azithromycin. [facility] Medical History (Updated 03/18/22 @ 13:41 by Travis Aslanides, INDUSTRIAL SALES REPRESENTATIVE-C) Complete heart block (02/2019) COVID CVA (cerebral vascular accident) (02/2019) Diabetes mellitus DVT (deep venous thrombosis) Essential (primary) hypertension Former smoker HLD (hyperlipidemia) Kidney disease Migraines Pacemaker Paroxysmal supraventricular tachycardia (06/2017) Sick sinus syndrome Sinus pause Tachyarrhythmia Type II diabetes mellitus, uncontrolled Home Medications atorvastatin 80 mg tablet 80 mg PO DAILY cholesterol 03/04/19 [History Last Taken 03/11/22] clopidogrel 75 mg tablet 75 mg PO DAILY blood thinner 04/25/19 [History Last Taken 03/11/22] metoprolol succinate 100 mg tablet,extended release 24 hr 100 mg PO DAILY heart rate 04/25/19 [History Last Taken 03/11/22] amlodipine 10 mg tablet 10 mg PO DAILY HTN 03/11/22 [History Last Taken 03/11/22] glimepiride 4 mg tablet 4 mg PO DAILY DM 03/11/22 [History Last Taken 03/10/22] hydralazine 50 mg tablet 50 mg PO TID BP 03/11/22 [History Last Taken 03/11/22] multivitamin (Daily-Yousuf tablet) 1 tab PO DAILY SUPPLEMENT 03/11/22 [History L ast Taken 03/11/22] tamsulosin 0.4 mg capsule (Flomax) 0.4 mg PO DAILY PROSTATE 03/11/22 [History La st Taken 03/10/22] insulin glargine 100 unit/mL (3 mL) subcutaneous pen (Lantus Solostar U-100 Insulin) 30 unit (0.3 mL) SQ DAILY diabetes #1 mL 03/12/22 [Rx Last Taken Unknown] Allergy/AdvReac Type Severity Reaction Status Date / Time metformin [From Glucophage] AdvReac Diarrhea Verified 03/18/22 10:50 Family History Mother Cancer Father Heart disease Hypertension Myocardial infarction Surgical History History of carpal tunnel release History of permanent cardiac pacemaker placement (03/05/19) Social History household members: none Smoking Status: Former smoker Smokeless tobacco user: other alcohol intake: never substance use type: does not use ROS ROS Narrative Admission Review of Systems: CONSTITUTIONAL: No weight loss, + fever, chills, weakness or fatigue. HEENT: + Headache, congestion, sore throat. Eyes: No visual loss, blurred vision, double vision or yellow sclerae. Ears, Nose, Throat: No hearing loss, sneezing. SKIN: No rash or itching, lesions, wounds. CARDIOVASCULAR: No chest pain, chest pressure or chest discomfort, palpitations, edema, orthopnea, syncopal events. RESPIRATORY: + shortness of breath, cough, No marked sputum (clear), wheezing, hemoptysis. GASTROINTESTINAL: + anorexia, nausea, diarrhea, No vomiting, abdominal pain, melena, BRBPR. GENITOURINARY: No dysuria, frequency, urgency or retention. NEUROLOGICAL: + headache, No dizziness, syncope, paralysis, ataxia, numbness or tingling in the extremities, focal weakness, change in bowel or bladder control, seizure. MUSCULOSKELETAL: + muscle, back pain, joint pain or stiffness. HEMATOLOGIC: + anemia, bleeding or bruising. LYMPHATICS: No enlarged nodes. No history of splenectomy. PSYCHIATRIC: No history of depression or anxiety. ENDOCRINOLOGIC: No reports of sweating, cold or heat intolerance. No polyuria or polydipsia. ALLERGIES: No history of asthma, hives, eczema or rhinitis. Vital Signs Vital Signs Vital Signs: 03/18/22 10:47 03/18/22 10:58 03/18/22 10:59 Temperature 98.5 F Temperature Source Oral Pulse Rate 81 83 Respiratory Rate 24 H 22 H Respiratory Effort Respiratory Pattern Blood Pressure 163/82 H 163/82 H Blood Pressure Mean 109 109 Pulse Ox 97 96 Oxygen Delivery Method Room Air Room Air Room Air 03/18/22 11:04 03/18/22 12:11 Temperature 99.3 F H Temperature Source Oral Pulse Rate 88 Respiratory Rate 19 H Respiratory Effort Normal Non-Labored Respiratory Pattern Normal Blood Pressure 144/73 H Blood Pressure Mean 96 Pulse Ox 97 Oxygen Delivery Method Room Air Weight Weight: 171 lb 8 oz Body Mass Index (BMI) 25.3 Physical Exam Narrative Physical Examination: General: Awake, alert, oriented x 3 and cooperative, seated upright in the ED bed, fatigued and ill-appearing, mildly increased respiratory rate but no distress noted. Skin: Normal color, normal turgor, no icterus, no cyanosis. HEENT: AT/NC, EOMI, PERRLA, moderately dry MM, no carotid bruits or JVD noted. Lungs: Diffusely diminished, greater bases, right greater than left, mildly increased respiratory rate but no distress, no rales, ronchi or wheezing. Heart: Currently regular rate and regular rhythm; no gallop, rub audible. Abdomen: Soft, thin habitus, NTTP, ND, hyperactive bowel sounds, no obvious HSM. Extremities: No cyanosis, clubbing, or edema. Neurological: Patient awake, alert, oriented as noted, cognitive function appears baseline intact but notably fatigued; pupils equally reactive to light and accommodation, cranial nerves II-XII grossly normal, moving all 4 extremities, no focal deficits, strength moderately to severely global decrease secondary to acute presentation. Psychiatric: Affect appears fatigued, ill-appearing, no acute evidence of depressive or anxiety feelings. Results Lab / Micro Data Result Diagrams: 03/18/22 11:20 03/18/22 11:20 Labs: Laboratory Results - last 24 hr 03/18/22 10:52: POC Glucose 37 L* 03/18/22 11:16: POC Glucose 262 H 03/18/22 11:20: WBC 3.9 L, RBC 3.31 L, Hgb 8.9 L, Hct 26.9 L, MCV 81.3, MCH 26.9 L, MCHC 33.1, RDW Std Deviation 41.1, RDW Coeff of Harry 13.7, Plt Count 209, MPV 9.7, Immature Gran % (Auto) 0.800, Neut % (Auto) 76.1 H, Lymph % (Auto) 13.7 L, [place] % (Auto) 9.1, Eos % (Auto) 0.0, Baso % (Auto) 0.3, Absolute Neuts (auto) 2.9, Absolute Lymphs (auto) 0.53 L, Nucleated RBC % 0, Differential Comment , Diff Path Review May , Platelet Estimate ADEQUATE, RBC Morphology NORM C+C 03/18/22 11:20: PT 12.8, INR 1.0, APTT 30.2 03/18/22 11:20: Sodium 141, Potassium 3.9, Chloride 115 H, Carbon Dioxide 18.0 L , Anion Gap 8, BUN 42 H, Creatinine 2.47 H, Estim Creat Clear Calc 30.21, Est GFR (MDRD) Af Amer 34 L, Est GFR (MDRD) Non-Af 28 L, BUN/Creatinine Ratio 17.0, Glucose 45 L, Calcium 7.7 L, Total Bilirubin 0.30, AST 35, ALT 26, Alkaline Phosphatase 104, Total Protein 6.2 L, Albumin 2.4 L, Globulin 3.8, A lbumin/Globulin Ratio 0.6 L 03/18/22 11:20: Lactic Acid 1.0 03/18/22 11:40: Urine Color Yellow, Urine Clarity Clear, Urine pH 5.0, Ur Specific [place] 1.020, Urine Protein 500 H, Urine Glucose (UA) Normal, Urine Ketones Negative, Urine Occult Blood 10 H, Urine Nitrite Negative, Urine Bilirubin Negative, Urine Urobilinogen Normal, Ur Leukocyte Esterase Negative, Urine RBC 0-5 SEEN, Urine WBC 0 SEEN, Ur Squamous Epith Cells 0 SEEN, Urine Bacteria 0 SEEN, Fine Granular Casts 0-5 SEEN, Urine Mucus 0 SEEN Radiology Impression Chest X-Ray 03/18/22 11:45 IMPRESSION: Right lower lobe pneumonia. Electronically Signed: Danny Mcdaniel MD at 11:59 EDT , Assessment & Plan Assessment/Plan (1) COVID-19: PLAN: Plan The patient is a 65 y/o M w/ PMHx: Chronic anemia, Hx TIA/CVA with chronic mild left-sided hemiparesis, HTN, HLD, Hx SSS/complete heart block s/p pacemaker placement, Hx PSVT, Diabetes mellitus type II, CKD stage IIIIb, Former tobacco use who presents to the [facility] ED on 03/18/22 with history of recent diagnosis of COVID-19 acute illness on Monday prior to presentation 03/14/2022 with additionally recent evaluation at [facility] 03/11/2022 secondary to TIA at that time with since onset of his illness inability to have appropriate oral intake, increased lethargy and hypoglycemia prompting EMS call with blood sugar upon their evaluation noted to be in the 30s with unkempt appearance and obviously incontinent of urine prompting patient transition to the ED for evaluation. #1. Acute RLL Pneumonia secondary to Acute Viral Syndrome, COVID-19, potential superimposed Bacterial PNA with Adult FTT, Lethargy, Hypoglycemia as noted #2 with Acute Encephalopathy resulting: Will admit to the [facility], maintain on COVID precautions with requested confirmation COVID PCR, will maintain on oxygen with wean as tolerated to room air, PRN albuterol, HOB, IS parameters w/ pending sputum cultures, respiratory viral panel and urine antigens, will obtain D- dimer, procalcitonin, CRP, CPK, Ferritin, LDH, trop and BNP, continue supportive care including q 2 hour turning including prone given no prone bed availability and judicious hydration, closely monitor for worsening status for ARDS and mult iorgan failure, if onset hypoxia will initiate and continue IV decadron x 10 doses and given presentation < 10 days if hypoxic once confirmation COVID + status w/ CrCl currently at 30 thus would at that time initiate IV remdesivir but closely monitor renal function as on edge of usage parameters. Will maintain on IV rocephin, azithromycin as noted pending work-up in case of concurrent superimposed bacterial pneumonia. #2. Acute Encephalopathy secondary to Diabetes mellitus type II with symptom atic hypoglycemia likely secondary to #1: Hold oral home regimen, hold home insulin regimen, broaden allow regular diet, maintain on dextrose IV fluid supplementation and once clinically improving may consider transitioning off and adding only a low-dose accu checks w/ ISS. Hemoglobin A1c requested. #3. Chronic Kidney Disease Stage IIIb: Admission BUN/Cr 42/2.47, baseline renal function primarily 2.0-2.4, most recently 03/12/2022 creatinine 2.24, repeat BMP in AM. #4. Chronic anemia, normocytic: Admission hemoglobin 8.9, prior baseline more recently 8-9, will continue to trend and repeat CBC in AM. #5. History of sick sinus syndrome/complete heart block: Patient status post cardiac pacemaker placement. #6. History CVA with recent TIA evaluation: We will continue patient plavix, statin, hypertensive regimen, diabetic alterations as noted given hypoglycemic presentation in the acute setting. #7. Hypertension: Continue home regimen including metoprolol, hydralazine, amlodipine with hold parameters as needed, PRN hydralazine. #8. Hyperlipidemia: We will continue patient on statin therapy. #9. BPH: We will continue patient on Flomax regimen #10. DVT prophylaxis: SCDs, heparin. #11. CODE status: Patient HCPOA and living will is not in place. Given his medical history strongly encouraged him to consider setting these items up and noted if he is interested could discuss with case management/social work for more information. Given COVID admission, discussed CODE status at length including difference between FULL code, DNR-CCA and DNR-CC status. Following discussions about the differences in these status, requested Full Code status. Amenable to antiviral treatment if appropriate. Advanced Care Planning Face to Face Time: 16 minutes. Charges/Coding Visit Charges Inpatient E&M: 62378 Init Hosp L3 Procedures Hospitalists Procedures: 49066 Advncd Care Plan 30 Min
--- NOTE | 2022-03-18 13:23 | NURSING ---
DR FLORENTIN TERRAZAS
--- NOTE | 2022-03-18 13:44 | NURSING ---
MED SURG FLORENTIN COVID, 19, RT LOWER LOBE PNEUMONIA, FAILURE TO THRIVE
--- NOTE | 2022-03-18 13:50 | ED.RN ---
chargemaster specialistCaitie talked with Fern, caregiver who stated she will come in the morning and bring his clothes. she is also taking care of his cats and not to worry. phone number updated.
[2022-03-18 14:11] LABS: BNP,B-Type NATRIURETIC PEPTIDE 81.4 pg/mL (0-100)
[2022-03-18 14:13] LABS: Ferritin 253 ng/mL (26-388); LDH 270 U/L (87-241); Magnesium 1.8 mg/dL (1.6-2.6); Troponin-I HS 24 pg/mL (3.0-78.0)
[2022-03-18 14:22] LABS: D-Dimer Quantitative (DVT/PE) 0.78 FEU/ug/m (0.27-0.49)
[2022-03-18 14:26] LABS: Procalcitonin 0.16 ng/mL (0.00-0.09)
--- NOTE | 2022-03-18 14:47 | VDLE_ITS ---
Reason For Study: Elevated D-dimer RIGHT LEFT GSV is normal. GSV is normal. CFV, FV and PopV are compressible. CFV, FV and PopV are compressible. T/P Trunk is compressible. T/P Trunk is compressible. PTV is compressible. PTV is compressible. RT PerV is compressible. LT PerV is compressible. Procedure This is a venous duplex using B-mode, color flow and spectral Doppler. Exam performed portable in patient room. The exam was abbreviated due to the COVID 19 protocol. A preliminary report was called and/or faxed to [facility] RN. VL/Venous Duplex US - Devin Extrem Interpretation Summary No evidence for acute deep venous thrombosis bilateral lower extremities with p atent and compressible bilateral great saphenous veins. Covid 19 protocol utilized Ordering Physician: Catherine Saravia Referring Physician: Vera Lucas Performed By: Jennifer Pham RVT
[2022-03-18] MEDS: 0.9% Normal Saline 1,000 ML 999 ML IV (16:23)
[2022-03-18] MEDS: Acetaminophen 325 MG Tablet 650 MG PO (16:26)
[2022-03-18] MEDS: Tamsulosin HCl 0.4 MG Capsule PO (16:27)
[2022-03-18] MEDS: hydrALAZINE 50 MG Tablet PO ×2 (16:27→22:46)
[2022-03-18 17:06] LABS: Bedside Glucose 197 mg/dL (74-106)
[2022-03-18] MEDS: Dextrose 5%/0.9% NaCl 1,000 ML 75 ML IV (17:33)
[2022-03-18] MEDS: Atorvastatin Calcium 80 MG Tablet PO (22:46)
[2022-03-18] MEDS: Heparin Injection (Vial) 5,000 UNIT/ML VIAL 5000 UNIT SC (22:46)
[2022-03-18 23:20] LABS: Bedside Glucose 299 mg/dL (74-106)
[2022-03-19] VITALS (13 sets, daily range): BP systolic 131–167; BP diastolic 68–78; PULSE 68–102; RESP 16–22; TEMP 36.6–37.2; O2SAT 95–99
[2022-03-19] MEDS: hydrALAZINE 50 MG Tablet PO ×3 (06:21→22:23)
[2022-03-19] MEDS: guaiFENesin 10 ML UDC (200MG/10ML) 20 ML PO ×3 (06:22→22:27)
[2022-03-19 06:30] LABS: Basophil# 0.01 X10^3/uL; Basophil% 0.3 % (0-1); Hematocrit 23.5 % (40-54); Hemoglobin 7.9 g/dL (13.0-16.5); Lymphocyte % 12.9 % (19-41); Mean Corp Hgb Conc 33.6 g/dL (32-36); Mean Corpuscular Hgb 27.1 pg (27.0-32.0); Mean Corpuscular Volume 80.5 fL (80-94); Mean Platelet Vol. 9.6 fl (6.2-12.0); Monocyte# 0.32 X10^3/uL; Monocyte% 8.3 % (0-10); NRBC Flagged by Analyzer 0 % (0-5); Neutrophil # 3.01 X10^3/uL (2.7-7.7); Neutrophil % 77.7 % (47-70); POSITIVE DIFFERENTIAL YES; Platelet Count 192 K/mm3 (150-450); RBC Distribution Width CV 13.7 % (11.6-14.6); RBC Distribution Width SD 40.7 fl (35.1-43.9); Red Blood Count 2.92 M/mm3 (4.6-6.2); White Blood Count 3.9 K/mm3 (4.4-11.0)
--- NOTE | 2022-03-19 06:31 | PN.HOSP_ITS ---
Subjective Subjective Patient notes feeling improved since initial presentation, tolerating oral intake and blood sugars improved therefore discussed plan of care with transition off of dextrose supplementation, reinitiation of his insulin therapy as well as Accu-Cheks and sliding scale and transition to ADA diet which was amenable. Patient reports that he is still coughing but it is not significantly productive. He does still feel achy and short of breath but less than the day prior. Patient is still awaiting physical and Occupational Therapy assessment is high risk for any return to home considerations. Patient denies fevers, nausea, emesis, abdominal pain, chest pain. Objective Data Objective Data Vital Signs: Vital Signs Temp Pulse Resp BP Pulse Ox O2 Del Method 98.9 F 101 H 18 131/74 H 95 Room Air 03/19/22 06:00 03/19/22 06:21 03/19/22 06:00 03/19/22 06:21 03/19/22 06:00 03/19/22 06:00 Oxygen Delivery Method Room Air Weight: 164 lb 8 oz Body Mass Index (BMI) 24.3 Intake & Output: Intake and Output for Last 24 Hours 03/17/22 03/18/22 03/19/22 23:59 23:59 23:59 Intake Total 1305 / 1305 Output Total 550 / 850 300 / 300 Balance 755 / 455 -300 / -300 Lab / Micro Data Result Diagrams: 03/19/22 06:10 03/19/22 06:10 Labs: Laboratory Results - last 24 hr 03/18/22 10:52: POC Glucose 37 L* 03/18/22 11:16: POC Glucose 262 H 03/18/22 11:20: WBC 3.9 L, RBC 3.31 L, Hgb 8.9 L, Hct 26.9 L, MCV 81.3, MCH 26.9 L, MCHC 33.1, RDW Std Deviation 41.1, RDW Coeff of Harry 13.7, Plt Count 209, MPV 9.7, Immature Gran % (Auto) 0.800, Neut % (Auto) 76.1 H, Lymph % (Auto) 13.7 L, [place] % (Auto) 9.1, Eos % (Auto) 0.0, Baso % (Auto) 0.3, Absolute Neuts (auto) 2.9, Absolute Lymphs (auto) 0.53 L, Nucleated RBC % 0, Differential Comment , Diff Path Review May foll, Platelet Estimate ADEQUATE, RBC Morphology NORM C+C 03/18/22 11:20: PT 12.8, INR 1.0, APTT 30.2 03/18/22 11:20: Sodium 141, Potassium 3.9, Chloride 115 H, Carbon Dioxide 18.0 L , Anion Gap 8, BUN 42 H, Creatinine 2.47 H, Estim Creat Clear Calc 30.21, Est GFR (MDRD) Af Amer 34 L, Est GFR (MDRD) Non-Af 28 L, BUN/Creatinine Ratio 17.0, Glucose 45 L, Calcium 7.7 L, Total Bilirubin 0.30, AST 35, ALT 26, Alkaline Phosphatase 104, Total Protein 6.2 L, Albumin 2.4 L, Globulin 3.8, Albumin/Globulin Ratio 0.6 L 03/18/22 11:20: Lactic Acid 1.0 03/18/22 11:20: D-Dimer Quant (PE/DVT) 0.78 H* 03/18/22 11:20: Magnesium 1.8, Ferritin 253, Lactate Dehydrogenase 270 H, Troponin I High Sens 24, C-React Prot Ext Range 13.70 H 03/18/22 11:20: B-Natriuretic Peptide 81.4 03/18/22 11:40: Urine Color Yellow, Urine Clarity Clear, Urine pH 5.0, Ur Specific [place] 1.020, Urine Protein 500 H, Urine Glucose (UA) Normal, Urine Ketones Negative, Urine Occult Blood 10 H, Urine Nitrite Negative, Urine Bilirubin Negative, Urine Urobilinogen Normal, Ur Leukocyte Esterase Negative, U rine RBC 0-5 SEEN, Urine WBC 0 SEEN, Ur Squamous Epith Cells 0 SEEN, Urine Bacteria 0 SEEN, Fine Granular Casts 0-5 SEEN, Urine Mucus 0 SEEN 03/18/22 13:30: Procalcitonin 0.16 H 03/18/22 13:42: COVID-19 (EVETTE) Detected 03/18/22 16:38: POC Glucose 197 H 03/18/22 22:49: POC Glucose 299 H Micro: Microbiology 03/18/22 17:38 Urine Catheter - Catheter Legionella Antigen - Final 03/18/22 17:38 Urine Catheter - Catheter Streptococcus pneumoniae Antigen (M - Final 03/18/22 13:12 Mucosa - Nasopharyngeal Respiratory Panel (PCR) - Final Radiography Diagnostic Testing: Radiology Impression Chest X-Ray 03/18/22 11:45 IMPRESSION: Right lower lobe pneumonia. Electronically Signed: Danny Mcdaniel MD at 11:59 EDT , Venous Doppler Study 03/18/22 14:47 Interpretation Summary No evidence for acute deep venous thrombosis bilateral lower extremities with patent and compressible bilateral great saphenous veins. Covid 19 protocol utilized Ordering Physician: Catherine Saravia Referring Physician: Vera Lucas Performed By: Jennifer Pham, RVRoshan Physical Exam Narrative Physical Examination: General: Awake, alert, oriented x 3 and cooperative, seated upright in the medical surgical bed, fatigued, less ill-appearing than day prior. Skin: Normal color, normal turgor, no icterus, no cyanosis. HEENT: AT/NC, EOMI, PERRLA, improved MMM. Lungs: Remains diffusely diminished, greater bases, right greater than left, no rales, ronchi or wheezing. Heart: Currently regular rate and regular rhythm; no gallop, rub audible. Abdomen: Soft, thin habitus, NTTP, ND, hyperactive bowel sounds. Extremities: No cyanosis, clubbing, or edema. Neurological: Patient awake, alert, oriented as noted, cognitive function appears baseline intact, less fatigued than day prior; pupils equally reactive to light and accommodation, cranial nerves II-XII grossly normal, moving all 4 extremities, no focal deficits, strength moderately to severely global decrease secondary to acute presentation. Psychiatric: Affect appears fatigued, less ill-appearing, no acute evidence of depressive or anxiety feelings. Assessment & Plan Assessment/Plan (1) COVID-19: PLAN: Plan The patient is a 65 y/o M w/ PMHx: Chronic anemia, Hx TIA/CVA with chronic mild left-sided hemiparesis, HTN, HLD, Hx SSS/complete heart block s/p pacemaker placement, Hx PSVT, Diabetes mellitus type II, CKD stage IIIIb, Former tobacco use who presents to the [facility] ED on 03/18/22 with history of recent diagnosis of COVID-19 acute illness on Monday prior to presentation 03/14/2022 with additionally recent evaluation at [facility] 03/11/2022 secondary to TIA at that time with since onset of his illness inability to have appropriate oral intake, increased lethargy and hypoglycemia prompting EMS call with blood sugar upon their evaluation noted to be in the 30s with unkempt appearance and obviously incontinent of urine prompting patient transition to the ED for evaluation. #1.? Acute RLL Pneumonia secondary to Acute Viral Syndrome, COVID-19, potential superimposed Bacterial PNA with Adult FTT, Lethargy, Hypoglycemia as noted #2 with Acute Encephalopathy resulting: Patient admitted to medical surgical floor, COVID PCR confirmatory and patient will maintain on COVID precautions and given no oxygen requirements would need a 10-day course of quarantine. Will maintain on oxygen with wean as tolerated to room air, PRN albuterol, HOB, IS parameters. Blood culture pending per ED, respiratory full viral panel negative, Legionella and streptococcal antigens negative, urine culture currently with no growth. MRSA screen negative. Procalcitonin mildly elevated 0.16. BNP 81.4, CRP 13.70, troponin 24, LDH 270, lactic acid 1.0, D-dimer 0.78 with follow-up duplex bilateral lower extremity ultrasounds negative is patient with renal function not appropriate for CTPA. Will maintain on IV rocephin, azithromycin as noted pending work-up in case of concurrent superimposed bacterial pneumonia however is able to de-escalate off. Patient has remained appropriate on oxygenation therefore deferred any consideration for Decadron therapy and given currently creatinine clearance is less than 30 and also not requiring supplementation of oxygen deferred antiviral regimen as well. PT/OT/case management consultations for discharge planning, potentially skilled needs. #2.? Acute Encephalopathy secondary to Diabetes mellitus type II with acutely symptomatic hypoglycemia likely secondary to #1: Initially patient hyperglycemic, held oral regimen as well as insulin regimen and brought into regular diet with transient dextrose fluids with improvement since. 03/19/2022 Will resume home long-acting insulin, transition to ADA diet and initiate Accu- Cheks with insulin sliding scale. Hemoglobin A1c 9.0%. #3.? Chronic Kidney Disease Stage IIIb with acute renal insufficiency likely secondary to #1: Admission BUN/Cr 42/2.47, baseline renal function primarily 2.0-2.4, most recently 03/12/2022 creatinine 2.24, 03/19/2022 BUN/creatinine 43/2.6 0, mildly increased, will continue to monitor, creatinine clearance now 28.70. #4.? Chronic anemia, normocytic: Admission hemoglobin 8.9, prior baseline more recently 03-15, 03/19/2022 hemoglobin 7.9, continue to monitor and if trends down further although patient did get hydrated may need to consider guaiac. #5.? History of sick sinus syndrome/complete heart block: Patient status post cardiac pacemaker placement. #6.? History CVA with recent TIA evaluation: We will continue patient plavix, statin, hypertensive regimen, diabetic regimen with alterations as noted. #7.? Hypertension: Continue home regimen including metoprolol, hydralazine, amlodipine with hold parameters as needed, PRN hydralazine. #8.? Hyperlipidemia: We will continue patient on statin therapy. #9.? BPH: We will continue patient on Flomax regimen #10.? DVT prophylaxis: SCDs, heparin. #11.? CODE status: Full Code status. Charges/Coding Visit Charges Inpatient E&M: 30510 Subs Hosp L2
[2022-03-19 06:54] LABS: Differential Indicated SCAN CRITERIA MET
[2022-03-19 07:01] LABS: Bedside Glucose 296 mg/dL (74-106)
[2022-03-19 07:02] LABS: ALB/GLOB Ratio 0.5 RATIO (0.9-2.4); AST(SGOT) 31 U/L (15-37); Alanine Aminotransfer ALT/SGPT 24 U/L (16-61); Alkaline Phosphatase 93 U/L (45-117); Anion Gap 7 (5-15); BUN 43 mg/dL (7-18); BUN/Creat Ratio 16.5 RATIO (10-20); Calcium,Total 7.3 mg/dL (8.5-10.1); Chloride 113 mmol/L (98-107); EST Glomerular Filtration Rate 27 mL/min (>60); Est Glom Filt Rate - Afr Amer 32 mL/min (>60); Globulin 3.7 g/dL (2.2-4.2); Glucose 261 mg/dL (74-106); Potassium 3.7 mmol/L (3.5-5.1); Protein, Total 5.7 g/dL (6.4-8.2); Sodium Level 138 mmol/L (136-145)
[2022-03-19 07:10] LABS: Differential Comment SCANNED
[2022-03-19] MEDS: Menthol/Lanolin/Calamine/Znox 113 GM Tube 1 APPLIC TOPICAL ×4 (08:07→22:29)
[2022-03-19] MEDS: Heparin Injection (Vial) 5,000 UNIT/ML VIAL 5000 UNIT SC ×2 (08:08→22:22)
[2022-03-19] MEDS: Ceftriaxone 1 GM/50 ML BAG IV (08:12)
[2022-03-19] MEDS: Metoprolol(XL)Succ 100 MG Tablet PO (08:15)
[2022-03-19 08:16] LABS: M R Staph aureus DNA By PCR Negative (Negative); Probe Check PASS; Specimen Processing Control PASS
[2022-03-19] MEDS: Clopidogrel Bisulfate 75 MG Tablet PO (08:16)
[2022-03-19] MEDS: amLODIPine 10 MG Tablet PO (08:16)
[2022-03-19] MEDS: Insulin Lispro 100 UNIT/ML INSULN.PEN SC ×3 (08:18→16:40)
[2022-03-19] MEDS: Insulin Glargine-YFGN 100 UNIT/ML Pen 30 UNIT SC (10:51)
--- NOTE | 2022-03-19 11:36 | CASEMGMT ---
Face to Face with patient for initial transition planning/care coordination assessment. Pt alert and sitting up in the chair, answer questions appropriately. BERKLEY RITTER introduced self and role at [facility], Pt voices understanding. Care providers, pharmacy, and demographics verified. PCP: Dr. Lucas Specialists: None Preferred Pharmacy: [facility] Insurance: [facility] Prescription Benefit: Yes Living Will/HPOA: Pt is not sure if he has completed these or not. LNOK: Pt states he does not have any family and that his caregiver Fern is his only contact Living Arrangements: Pt lives alone in an single story apartment with no steps to enter. Pt ambulates with a cane through the home. Pt states he has a Direction Home CM, he does remember this person's name, and receives services including MOW and medical alert button. Pt states he has an aide that assists him daily from 09-1500 daily. Transportation: Pt does not drive. Pt's TREASURY AGENT Fern transports him to appointments, obtains groceries, etc. DME: Shower chair, hand held shower, medical alert, cane. Pt does not currently have O2 in the home and is currently on RA. If O2 were needed, pt denied preference in DME provider. SNF/HH: pt denies any previous SNF or HH skilled services. Plan: Pt states he plans to return home with continuation of TREASURY AGENT services. This RN CM contacted Fern to clarify her role. Per Fern, she does not get reimbursed for her time assisting the patient. She confirms she does stay with him from [id number] and that she assists him with bathing, dressing when needed, preparing meals, transporting him to appointments, paying his bills, whatever he wants me to help him with that day. Fern states she is able to transport pt home at discharge if appropriate. PT/OT evaluation pending. 6Clicks score=12 per nursing. Will continue to monitor for appropriate discharge disposition. Osvaldo Jenkins RN CM
[2022-03-19 12:16] LABS: Bedside Glucose 318 mg/dL (74-106)
[2022-03-19] MEDS: Tamsulosin HCl 0.4 MG Capsule PO (16:26)
[2022-03-19 17:16] LABS: Bedside Glucose 195 mg/dL (74-106)
--- NOTE | 2022-03-19 17:25 | NURSING ---
This RN attempted to get pt to use his I.S but refused. I'm not going to use that. Education given, pt still refused.
--- NOTE | 2022-03-19 19:00 | CASEMGMT ---
Social Work Note SW in to speak with pt regarding discharge plans. SW spoke with pt about SNF and how recommendation is SNF. Pt appeared agreeable, willing to review SNF list. Patient was provided a list of SNF providers including quality and resource use data and consistent with the patient?s preferred geographic region, medical needs, and insurance network. SW encouraged pt to have three choices for SNF and that SW will follow on on Monday for choices. Pt states understanding, denied additional needs or concerns at this time. 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
[2022-03-19] MEDS: Atorvastatin Calcium 80 MG Tablet PO (22:23)
[2022-03-19 22:55] LABS: Bedside Glucose 147 mg/dL (74-106)
[2022-03-20] VITALS (14 sets, daily range): BP systolic 132–155; BP diastolic 71–92; PULSE 75–96; RESP 16–20; TEMP 37.1–37.7; O2SAT 93–95
[2022-03-20] MEDS: guaiFENesin 10 ML UDC (200MG/10ML) 20 ML PO ×3 (02:54→18:02)
--- NOTE | 2022-03-20 06:24 | PCM.PN.HOSP ---
Subjective Subjective Patient with no acute events overnight per self and per nursing report. Patient notes that his coughing is improving and he slept well. Discussed plan of care with continue PT and OT assessments and given significant inability to care for himself safely likely placement needs to which he is amenable. Patient denies fevers, chills, nausea, emesis, abdominal pain, chest pain. He does report that his dyspnea has significantly improved Objective Data Objective Data Vital Signs: Vital Signs Temp Pulse Resp BP Pulse Ox O2 Del Method 99.1 F 79 16 155/72 H 94 Room Air 03/20/22 02:46 03/20/22 02:46 03/20/22 02:46 03/20/22 02:46 03/20/22 02:46 03/20/22 02:46 Oxygen Delivery Method Room Air Weight: 168 lb 13.985 oz Body Mass Index (BMI) 24.3 Intake & Output: Intake and Output for Last 24 Hours 03/18/22 03/19/22 03/20/22 23:59 23:59 23:59 Intake Total 1305 / 1305 1962.25 / 1962.25 Output Total 550 / 850 1400 / 1850 450 / 450 Balance 755 / 455 562.25 / 112.25 -450 / -450 Lab / Micro Data Result Diagrams: 03/19/22 06:10 03/19/22 06:10 Labs: Laboratory Results - last 24 hr 03/19/22 06:10: WBC 3.9 L, RBC 2.92 L, Hgb 7.9 L, Hct 23.5 L, MCV 80.5, MCH 27.1, MCHC 33.6, RDW Std Deviation 40.7, RDW Coeff of Harry 13.7, Plt Count 192, MPV 9.6, Immature Gran % (Auto) 0.800, Neut % (Auto) 77.7 H, Lymph % (Auto) 12.9 L, [place] % (Auto) 8.3, Eos % (Auto) 0.0, Baso % (Auto) 0.3, Absolute Neuts (auto) 3.0, Absolute Lymphs (auto) 0.50 L, Nucleated RBC % 0, Differential Comment SCANNED, Diff Path Review December03/19/22 06:10: Sodium 138, Potassium 3.7, Chloride 113 H, Carbon Dioxide 18.0 L, Anion Gap 7, BUN 43 H, Creatinine 2.60 H, Estim Creat Clear Calc 28.70, Est GFR (MDRD) Af Amer 32 L, Est GFR (MDRD) Non-Af 27 L, BUN/Creatinine Ratio 16.5, Glucose 261 H, Calcium 7.3 L, Total Bilirubin 0.30, AST 31, ALT 24, Alkaline Phosphatase 93, Total Protein 5.7 L, Albumin 2.0 L, Globulin 3.7, Albumin/Globulin Ratio 0.5 L 03/19/22 06:15: MRSA (PCR) Negative 03/19/22 06:28: POC Glucose 296 H 03/19/22 11:54: POC Glucose 318 H 03/19/22 16:34: POC Glucose 195 H 03/19/22 22:20: POC Glucose 147 H Micro: Microbiology 03/18/22 11:40 Urine, Catheterized Urine Culture - Preliminary Culture exhibits no growth. 03/18/22 17:38 Urine Catheter - Catheter Legionella Antigen - Final 03/18/22 17:38 Urine Catheter - Catheter Streptococcus pneumoniae Antigen (M - Final 03/18/22 13:12 Mucosa - Nasopharyngeal Respiratory Panel (PCR) - Final Physical Exam Narrative Physical Examination: General: Awake, alert, oriented x 3 and cooperative, seated upright in the medical surgical bed, fatigued but improving. Skin: Normal color, normal turgor, no icterus, no cyanosis. HEENT: AT/NC, EOMI, PERRLA, MMM. Lungs: Diminished, greater bases, right greater than left, no rales, ronchi or wheezing. Heart: Currently regular rate and regular rhythm; no gallop, rub audible. Abdomen: Soft, thin habitus, NTTP, ND, normalized bowel sounds Extremities: No cyanosis, clubbing, or edema. Neurological: Patient awake, alert, oriented as noted, cognitive function appears baseline intact, less fatigued than day prior; pupils equally reactive to light and accommodation, cranial nerves II-XII grossly normal, moving all 4 extremities, no focal deficits, strength improving, moderately to severely global decrease secondary to acute presentation. Psychiatric: Affect appears fatigued, no acute evidence of depressive or anxiety feelings. Assessment & Plan Assessment/Plan (1) COVID-19: PLAN: Plan The patient is a 65 y/o M w/ PMHx: Chronic anemia, Hx TIA/CVA with chronic mild left-sided hemiparesis, HTN, HLD, Hx SSS/complete heart block s/p pacemaker placement, Hx PSVT, Diabetes mellitus type II, CKD stage IIIIb, Former tobacco use who presents to the [facility] ED on 03/18/22 with history of recent diagnosis of COVID-19 acute illness on Monday prior to presentation 03/14/2022 with additionally recent evaluation at [facility] 03/11/2022 secondary to TIA at that time with since onset of his illness inability to have appropriate oral intake, increased lethargy and hypoglycemia prompting EMS call with blood sugar upon their evaluation noted to be in the 30s with unkempt appearance and obviously incontinent of urine prompting patient transition to the ED for evaluation. #1.? Acute RLL Pneumonia secondary to Acute Viral Syndrome, COVID-19, potential superimposed Bacterial PNA with Adult FTT, Lethargy, Hypoglycemia as noted #2 with Acute Encephalopathy resulting: Patient admitted to medical surgical floor, COVID PCR confirmatory and patient will maintain on COVID precautions and given no oxygen requirements would need a 10-day course of quarantine. Patient has not required any oxygen supplementation. Continue as needed albuterol. Blood culture x2 without growth. Respiratory panel negative. Legionella and streptococcal antigens negative. Urine culture no growth. MRSA screen negative. Procalcitonin mildly elevated 0.16. BNP 81.4, CRP 13.70, troponin 24, LDH 270, lactic acid 1.0, D-dimer 0.78. BL LE Duplex US negative. Patient started and maintained on IV rocephin, azithromycin for concern of possible superimposed bacterial pneumonia. Given no marked hypoxia and clinical stability patient was not administered steroids or antiviral regimen especially given creatinine clearance. PT/OT/case management consultations for discharge planning, potentially skilled needs. #2.? Acute Encephalopathy secondary to Diabetes mellitus type II with acutely symptomatic hypoglycemia likely secondary to #1: Initially patient hyperglycemic, held oral regimen as well as insulin regimen and brought into regular diet with transient dextrose fluids with improvement since. 03/19/2022 Will resume home long-acting insulin, transition to ADA diet and initiate Accu-Cheks with insulin sliding scale. Hemoglobin A1c 9.0%. #3.? Chronic Kidney Disease Stage IIIb with acute renal insufficiency likely secondary to #1: Admission BUN/Cr 42/2.47, baseline renal function primarily 2.0-2.4, most recently 03/12/2022 creatinine 2.24, 03/19/2022 BUN/creatinine 43/2.60, mildly increased, will continue to monitor, creatinine clearance now 28.70. 03/20/2022 patient declined labs. Will attempt repeat 03/21/22 AM labs. #4.? Chronic anemia, normocytic: Admission hemoglobin 8.9, prior baseline more recently 8-, 03/19/2022 hemoglobin 7.9, continue to monitor and if trends down further although patient did get hydrated may need to consider guaiac. 03/20/2022 patient declined labs. Will attempt repeat 03/21/22 AM labs. #5.? History of sick sinus syndrome/complete heart block: Patient status post cardiac pacemaker placement. #6.? History CVA with recent TIA evaluation: We will continue patient plavix, statin, hypertensive regimen, diabetic regimen with alterations as noted. #7.? Hypertension: Continue home regimen including metoprolol, hydralazine, amlodipine with hold parameters as needed, PRN hydralazine. #8.? Hyperlipidemia: We will continue patient on statin therapy. #9.? BPH: We will continue patient on Flomax regimen #10.? DVT prophylaxis: SCDs, heparin. #11.? CODE status: Full Code status. Charges/Coding Visit Charges Inpatient E&M: 08002 Subs Hosp L2
[2022-03-20] MEDS: hydrALAZINE 50 MG Tablet PO ×3 (07:02→21:27)
[2022-03-20 07:25] LABS: Bedside Glucose 96 mg/dL (74-106)
[2022-03-20] MEDS: Heparin Injection (Vial) 5,000 UNIT/ML VIAL 5000 UNIT SC ×2 (09:16→21:26)
[2022-03-20] MEDS: Menthol/Lanolin/Calamine/Znox 113 GM Tube 1 APPLIC TOPICAL ×3 (09:16→21:28)
[2022-03-20] MEDS: Metoprolol(XL)Succ 100 MG Tablet PO (09:18)
[2022-03-20] MEDS: Clopidogrel Bisulfate 75 MG Tablet PO (09:18)
[2022-03-20] MEDS: amLODIPine 10 MG Tablet PO (09:19)
[2022-03-20] MEDS: 0.9% Saline Lock 10 ML Syringe IV (09:20)
[2022-03-20] MEDS: Insulin Glargine-YFGN 100 UNIT/ML Pen 30 UNIT SC (09:21)
[2022-03-20] MEDS: Ceftriaxone 1 GM/50 ML BAG IV (11:27)
[2022-03-20] MEDS: Insulin Lispro 100 UNIT/ML INSULN.PEN SC ×3 (11:33→21:26)
[2022-03-20 12:00] LABS: Bedside Glucose 189 mg/dL (74-106)
[2022-03-20] MEDS: Tamsulosin HCl 0.4 MG Capsule PO (18:02)
[2022-03-20 18:35] LABS: Bedside Glucose 190 mg/dL (74-106)
[2022-03-20] MEDS: Acetaminophen 325 MG Tablet 650 MG PO (21:28)
[2022-03-20] MEDS: Atorvastatin Calcium 80 MG Tablet PO (21:28)
[2022-03-20 21:50] LABS: Bedside Glucose 213 mg/dL (74-106)
[2022-03-21] VITALS (10 sets, daily range): BP systolic 141–153; BP diastolic 69–77; PULSE 73–84; RESP 18–20; TEMP 36.7–37.2; O2SAT 92–96
[2022-03-21] MEDS: guaiFENesin 10 ML UDC (200MG/10ML) 20 ML PO ×2 (04:02→21:52)
[2022-03-21] MEDS: hydrALAZINE 50 MG Tablet PO (04:25)
[2022-03-21] MEDS: Lidocaine Jelly 2% 20 ML Syringe (URO-JET) 1 APPLIC TOPICAL (04:42)
[2022-03-21 04:51] LABS: Bedside Glucose 126 mg/dL (74-106)
--- NOTE | 2022-03-21 04:56 | NURSING ---
payne reinserted at this time d/t inability to void [address] cath. 2 nurses attempted payne. successful on 4th attempt
--- NOTE | 2022-03-21 05:09 | NURSING ---
14 Fr Coude catheter inserted after failed attempt of 16 fr x3. Urojet used prior to insertion. tolerated procedure without problems. payne draining clear yellow urine.
[2022-03-21 07:17] LABS: Absolute Neutrophil Count 3.6 X10^3/uL (2.0-7.7); Basophil# 0.01 X10^3/uL; Basophil% 0.2 % (0-1); Eosinophil# 0.03 X10^3/uL; Eosinophils% 0.6 % (0-5); Hemoglobin 7.7 g/dL (13.0-16.5); Mean Corp Hgb Conc 32.1 g/dL (32-36); Mean Corpuscular Hgb 26.1 pg (27.0-32.0); Mean Corpuscular Volume 81.4 fL (80-94); Mean Platelet Vol. 9.7 fl (6.2-12.0); Monocyte# 0.49 X10^3/uL; Monocyte% 9.4 % (0-10); NRBC Flagged by Analyzer 0 % (0-5); Neutrophil # 3.55 X10^3/uL (2.7-7.7); Neutrophil % 67.7 % (47-70); Platelet Count 255 K/mm3 (150-450); RBC Distribution Width SD 41.6 fl (35.1-43.9); Red Blood Count 2.95 M/mm3 (4.6-6.2); White Blood Count 5.2 K/mm3 (4.4-11.0)
[2022-03-21 07:54] LABS: ALB/GLOB Ratio 0.5 RATIO (0.9-2.4); AST(SGOT) 50 U/L (15-37); Alanine Aminotransfer ALT/SGPT 38 U/L (16-61); Albumin, Serum 1.9 g/dL (3.2-5.0); Alkaline Phosphatase 88 U/L (45-117); Anion Gap 9 (5-15); BUN 57 mg/dL (7-18); BUN/Creat Ratio 21.4 RATIO (10-20); Calcium,Total 7.8 mg/dL (8.5-10.1); Chloride 112 mmol/L (98-107); Creatinine, Serum 2.66 mg/dL (0.70-1.30); EST Glomerular Filtration Rate 26 mL/min (>60); Est Glom Filt Rate - Afr Amer 31 mL/min (>60); Estimated Creatinine Clearance 28.06 ml/min; Globulin 3.7 g/dL (2.2-4.2); Glucose 115 mg/dL (74-106); Potassium 4.4 mmol/L (3.5-5.1); Protein, Total 5.6 g/dL (6.4-8.2); Sodium Level 137 mmol/L (136-145)
--- NOTE | 2022-03-21 09:54 | PN.HOSP_ITS ---
Subjective Subjective Follow-up on debility/acute COVID-19 infection: Patient was seen and examined. No acute events overnight. He denied any new complaints. Denied any fever or chills. Remains off oxygen. Objective Data Objective Data Vital Signs: Vital Signs Temp Pulse Resp BP Pulse Ox O2 Del Method 98.1 F 73 20 H 153/73 H 93 Room Air 03/21/22 03:41 03/21/22 04:25 03/21/22 03:41 03/21/22 04:25 03/21/22 07:49 03/21/22 07:49 Oxygen Delivery Method Room Air Weight: 77.4 kg Body Mass Index (BMI) 24.3 Intake & Output: Intake and Output for Last 24 Hours 03/19/22 03/20/22 03/21/22 23:59 23:59 23:59 Intake Total 1962.25 / 1962.25 710 / 710 0 / 0 Output Total 1400 / 1850 1600 / 1600 700 / 700 Balance 562.25 / 112.25 -890 / -890 -700 / -700 Lab / Micro Data Result Diagrams: 03/21/22 06:47 03/21/22 06:47 Labs: Laboratory Results - last 24 hr 03/20/22 11:31: POC Glucose 189 H 03/20/22 18:03: POC Glucose 190 H 03/20/22 21:25: POC Glucose 213 H 03/21/22 04:25: POC Glucose 126 H 03/21/22 06:47: WBC 5.2, RBC 2.95 L, Hgb 7.7 L, Hct 24.0 L, MCV 81.4, MCH 26.1 L , MCHC 32.1, RDW Std Deviation 41.6, RDW Coeff of Harry 14.0, Plt Count 255, MPV 9.7, Immature Gran % (Auto) 1.100 H, Neut % (Auto) 67.7, Lymph % (Auto) 21.0, [place] % (Auto) 9.4, Eos % (Auto) 0.6, Baso % (Auto) 0.2, Absolute Neuts (auto) 3.6, Absolute Lymphs (auto) 1.10, Nucleated RBC % 0 03/21/22 06:47: Sodium 137, Potassium 4.4, Chloride 112 H, Carbon Dioxide 16.0 L , Anion Gap 9, BUN 57 H, Creatinine 2.66 H, Estim Creat Clear Calc 28.06, Est GFR (MDRD) Af Amer 31 L, Est GFR (MDRD) Non-Af 26 L, BUN/Creatinine Ratio 21.4 H , Glucose 115 H, Calcium 7.8 L, Total Bilirubin 0.30, AST 50 H, ALT 38, Alkaline Phosphatase 88, Total Protein 5.6 L, Albumin 1.9 L, Globulin 3.7, Albumin/Globulin Ratio 0.5 L Micro: Microbiology 03/18/22 11:20 Blood Culture (Wb) - Anticubital Right Blood Culture - Preliminary No growth in 48 hours. 03/18/22 11:13 Blood Culture (Wb) - Anticubital Right Blood Culture - Preliminary No growth in 48 hours. 03/18/22 11:40 Urine, Catheterized Urine Culture - Final Culture exhibits no growth. 03/18/22 17:38 Urine Catheter - Catheter Legionella Antigen - Final 03/18/22 17:38 Urine Catheter - Catheter Streptococcus pneumoniae Antigen (M - Final 03/18/22 13:12 Mucosa - Nasopharyngeal Respiratory Panel (PCR) - Final Physical Exam Narrative Physical exam: General: Alert, Oriented x3, Cooperative, appears unkempt HEENT: Atraumatic Oral: Moist Mucosa Neck: Supple Lungs: Diminished to auscultation Cardiovascular: HS I+II, regular, no murmurs Abdomen: Bowel Sounds Present, Soft, Non Tender Extremities: No edema Skin: No rashes, No breakdown Neurological: Grossly intact Psych/Mental Status: Appropriate Assessment & Plan Assessment/Plan (1) COVID-19: PLAN: Plan 1. Acute RLL Pneumonia/COVID-19 infection without hypoxia Patient's COVID-19 PCR has been positive since 03/18/22 Admitting chest x-ray showed right lower lung pneumonia Blood cultures, respiratory panel, urine Legionella and strep antigen negative Continue IV ceftriaxone azithromycin(day 4); will stop after tomorrow, making 5 days total 2. Acute metabolic encephalopathy secondary to hypoglycemia and also #1 Patient appears to be alert oriented x3. Continue to monitor 3. Type II DM, blood sugar have been controlled, Continue to hold Amaryl Continue Lantus 30 units daily, as well as insulin sliding scale blood glucose checks 4. Hypertension, fairly uncontrolled, continue amlodipine 10 mg, metoprolol increase hydralazine to 75 mg p.o. TID Continue to monitor vitals closely 5. CKD stage IIIb, creatinine is at the baseline 6. Anemia, microcytic, hemoglobin remained stable at 7.7, Will check iron stores, stool for FOBT 7. Rest of chronic medical conditions including sick sinus syndrome status post pacemaker, history of CVA with recent TIA, hyperlipidemia, BPH Continue on Plavix, statin, Flomax 8. DVT prophylaxis?heparin subcu Charges/Coding Visit Charges Inpatient E&M: 51654 Subs Hosp L2
[2022-03-21] MEDS: 0.9% Saline Lock 10 ML Syringe IV ×2 (10:33→16:06)
[2022-03-21] MEDS: Ceftriaxone 1 GM/50 ML BAG IV (10:33)
[2022-03-21] MEDS: Heparin Injection (Vial) 5,000 UNIT/ML VIAL 5000 UNIT SC ×2 (10:38→21:50)
[2022-03-21] MEDS: Menthol/Lanolin/Calamine/Znox 113 GM Tube 1 APPLIC TOPICAL ×4 (10:38→21:53)
[2022-03-21] MEDS: Metoprolol(XL)Succ 100 MG Tablet PO (10:39)
[2022-03-21] MEDS: amLODIPine 10 MG Tablet PO (10:44)
[2022-03-21] MEDS: Insulin Glargine-YFGN 100 UNIT/ML Pen 30 UNIT SC (10:44)
[2022-03-21] MEDS: Clopidogrel Bisulfate 75 MG Tablet PO (10:44)
[2022-03-21 11:45] LABS: Bedside Glucose 107 mg/dL (74-106)
[2022-03-21 12:13] LABS: Platelet Count 262 K/mm3 (150-450); RET-HE 23.6 pg (30-35); Reticulocyte Count 0.68 % (0.5-1.5)
[2022-03-21 12:39] LABS: Hemoglobin A1c 8.8 % (3.8-5.6)
[2022-03-21 12:41] LABS: Ferritin 369 ng/mL (26-388); Iron 12 ug/dL (65-175); Iron Binding Capacity,Total 143 ug/dL (250-450); PERCENT IRON SATURATION 8.4 % (15.0-55.0)
[2022-03-21] MEDS: hydrALAZINE 50 MG Tablet 75 MG PO ×2 (14:48→21:52)
--- NOTE | 2022-03-21 15:03 | CASEMGMT ---
Social Work SW spoke with pt regarding discharge planning. Pt was previously provided SNF list. He was unsure of what facility he wanted and asked SW to speak with Fern Taylor, his aide. SW attempted to call Fern, with no answer. SW spoke to pt again and discussed limitied options for Nursing Facilities due to his Covid status. Pt requesting to stay in [place], and SW reported [facility] may possibly take him with Covid. Pt agreeable to going to [facility]. He stated he has heard good things about that facility. SW discussed intent to send a referral. SW sent referral to Renetta at [facility]. Plan: [facility], pending acceptance. TARA Hopson
[2022-03-21] MEDS: Sodium Ferric Gluconat 250 MG in 0.9% Normal Saline 250 ML 135 MG IV (16:01)
[2022-03-21] MEDS: Insulin Lispro 100 UNIT/ML INSULN.PEN SC ×2 (16:14→21:50)
[2022-03-21] MEDS: Tamsulosin HCl 0.4 MG Capsule PO (16:19)
--- NOTE | 2022-03-21 16:27 | CASEMGMT ---
Social Work SW received call from Renetta at [facility]. Renetta reported [facility] is willing to accept patient. TARA Hopson
--- NOTE | 2022-03-21 16:32 | CASEMGMT ---
Social Work SW called [facility] home to notify pt CM that pt has been admitted to the hospital. This secondary social studies teacher spoke with a worker named Kristen. Kristen informed SW that pt's CM is Erum Cummins Jcarlos [phone], and she is aware pt was admitted via his home health facility. Patient receives 5 meals from [facility] each Monday, 1 hot meal from [facility], and he has home health from [place] 5 hours on Mondays, 2 hours each on Monday and Monday and 3 hours on Fridays. TARA Hopson
[2022-03-21 16:45] LABS: Bedside Glucose 209 mg/dL (74-106)
[2022-03-21] MEDS: Atorvastatin Calcium 80 MG Tablet PO (21:53)
[2022-03-21] MEDS: Acetaminophen 325 MG Tablet 650 MG PO (21:53)
[2022-03-21 22:21] LABS: Bedside Glucose 228 mg/dL (74-106)
[2022-03-22 03:09] VITALS: BP 151/74; PULSE 74; RESP 20; TEMP 36.3; O2SAT 93
[2022-03-22 06:05] VITALS: BP 151/74; PULSE 74
[2022-03-22] MEDS: hydrALAZINE 50 MG Tablet 75 MG PO (06:05)
[2022-03-22] MEDS: guaiFENesin 10 ML UDC (200MG/10ML) 20 ML PO (06:05)
[2022-03-22 06:21] LABS: Absolute Lymphocyte Count 1.07 X10^3/uL (0.83-4.51); Absolute Neutrophil Count 3.4 X10^3/uL (2.0-7.7); Basophil# 0.01 X10^3/uL; Basophil% 0.2 % (0-1); Eosinophil# 0.02 X10^3/uL; Eosinophils% 0.4 % (0-5); Hematocrit 22.2 % (40-54); Hemoglobin 7.4 g/dL (13.0-16.5); Lymphocyte # 1.07 X10^3/ul (0.83-4.51); Lymphocyte % 21.7 % (19-41); Mean Corp Hgb Conc 33.3 g/dL (32-36); Mean Platelet Vol. 9.3 fl (6.2-12.0); Monocyte# 0.38 X10^3/uL; Monocyte% 7.7 % (0-10); NRBC Flagged by Analyzer 0 % (0-5); Neutrophil # 3.36 X10^3/uL (2.7-7.7); Neutrophil % 68.4 % (47-70); Platelet Count 279 K/mm3 (150-450); RBC Distribution Width CV 13.9 % (11.6-14.6); RBC Distribution Width SD 40.8 fl (35.1-43.9); Red Blood Count 2.74 M/mm3 (4.6-6.2); White Blood Count 4.9 K/mm3 (4.4-11.0)
[2022-03-22 06:31] LABS: Bedside Glucose 110 mg/dL (74-106)
[2022-03-22 06:52] LABS: ALB/GLOB Ratio 0.5 RATIO (0.9-2.4); AST(SGOT) 51 U/L (15-37); Alanine Aminotransfer ALT/SGPT 41 U/L (16-61); Albumin, Serum 1.8 g/dL (3.2-5.0); Alkaline Phosphatase 88 U/L (45-117); Anion Gap 9 (5-15); BUN 62 mg/dL (7-18); BUN/Creat Ratio 24.1 RATIO (10-20); Calcium,Total 7.5 mg/dL (8.5-10.1); Chloride 112 mmol/L (98-107); Creatinine, Serum 2.57 mg/dL (0.70-1.30); EST Glomerular Filtration Rate 27 mL/min (>60); Est Glom Filt Rate - Afr Amer 33 mL/min (>60); Estimated Creatinine Clearance 29.04 ml/min; Globulin 3.7 g/dL (2.2-4.2); Glucose 104 mg/dL (74-106); Potassium 4.3 mmol/L (3.5-5.1); Protein, Total 5.5 g/dL (6.4-8.2); Sodium Level 138 mmol/L (136-145)
[2022-03-22 07:14] LABS: Pathologist Review Reviewed
[2022-03-22 07:18] LABS: Pathologist Review Reviewed
--- NOTE | 2022-03-22 08:39 | TREXTCAR_ITS ---
Diet Diet Order/Speech Therapy: 03/18/22 15:35 Diet: Regular - General Food consistency:: Regular Liquid Consistency:: Regular/Thin Routine Orders/Code Status Suppository Type: Dulcolax 10mg Suppository Frequency: Daily PRN Routine Lab Work: CBC (within 3 days) and - (within 3 days) Code Status: Full Code Wound(s) Lt winn: Wound Type: Abrasion Therapies Weight Bearing: Weight bearing as tolerated Physical Therapy: Eval and Treat Occupational Therapy: Eval and Treat Problem/Diagnosis (1) COVID-19: Status: Acute Code(s): U07.1 - COVID-19 Allergies/Procedures Done in Hospital Allergies metformin [From Glucophage] Adverse Reaction (Verified 03/18/22 10:50) Diarrhea Procedures: None Type of Care/Length of Stay Estimated LOS: Convalescent Care Less Than 30 days Type of Care Needed: Skilled Rehab Potential: Good Prognosis: Good Additional Orders/Day of Discharge Day of Discharge: 03/22/22 Dietary and Speech Recommendations Dietitian Recommendations/Changes: continue regular diet as tolerated until adequate, consistent PO intake at meals is established; will add 4oz glucerna ONS w/ meals for additional calories/protein if consumed; consider transition to CHO controlled diet when PO intake improves. Discharge Plan Admission Admit Date/Time: 03/18/22 13:23 Primary Reason for Your Visit: Debility/pneumonia/metabolic/infectious encephalopathy/Acute COVID-19 Attending Provider: Edilia Moe Primary Care Provider: Vera Lucas Consulting Providers: Catherine Saravia Discharge Orders/Prescriptions Prescriptions: New hydralazine 50 mg Tablet 100 mg PO TID 30 Days Qty: 180 0RF ferrous sulfate 325 mg (65 mg iron) tablet 325 mg PO BID 30 Days Qty: 60 0RF ascorbic acid (vitamin C) [Vitamin C] 500 mg tablet 500 mg PO BID 30 Days Qty: 60 0RF Continued atorvastatin 80 MG tablet 80 mg PO DAILY metoprolol succinate 100 MG tablet extended release 24 hr 100 mg PO DAILY clopidogrel 75 MG tablet 75 mg PO DAILY multivitamin [Daily-Yousuf] Tablet 1 tab PO DAILY amlodipine 10 mg Tablet 10 mg PO DAILY tamsulosin [Flomax] 0.4 mg capsule 0.4 mg PO DAILY insulin glargine [Lantus Solostar U-100 Insulin] 100 UNIT/ML insulin pen 30 unit SQ DAILY Qty: 1 3RF Discontinued glimepiride 4 mg Tablet 4 mg PO DAILY hydralazine 50 mg Tablet 50 mg PO TID Referrals / Follow Up: Vera Lucas MD [Primary Care Provider] - Disposition Disposition (needs filled in before D/C Order can be placed): Senior Living Facility
--- NOTE | 2022-03-22 08:43 | DS.PCM_ITS ---
Providers Date of Admission: 03/18/22 Date of Discharge: 03/22/22 Primary Care Physician: Dr. Vera Lucas MD Reason For Visit: COVID, PNA, HYPOGLYCEMIA Diagnosis Discharge Diagnosis (1) COVID-19: Status: Acute Code(s): U07.1 - COVID-19 Medications at Discharge Home Medications atorvastatin 80 mg tablet 80 mg PO DAILY cholesterol 03/04/19 clopidogrel 75 mg tablet 75 mg PO DAILY blood thinner 04/25/19 metoprolol succinate 100 mg tablet,extended release 24 hr 100 mg PO DAILY heart rate 04/25/19 amlodipine 10 mg tablet 10 mg PO DAILY HTN 03/11/22 multivitamin (Daily-Yousuf tablet) 1 tab PO DAILY SUPPLEMENT 03/11/22 tamsulosin 0.4 mg capsule (Flomax) 0.4 mg PO DAILY PROSTATE 03/11/22 insulin glargine 100 unit/mL (3 mL) subcutaneous pen (Lantus Solostar U-100 Insulin) 30 unit (0.3 mL) SQ DAILY diabetes #1 mL 03/12/22 ascorbic acid (vitamin C) 500 mg tablet (Vitamin C) 500 mg PO BID 30 days #60 tabs 03/22/22 ferrous sulfate 325 mg (65 mg iron) tablet 325 mg PO BID 30 days #60 tabs 03/22/22 hydralazine 50 mg tablet 100 mg PO TID 30 days #180 tabs 03/22/22 Hospital Course Operations None Procedures None Summary of Care Provided Minutes Spent on Discharge: 40 Hospital Course: 66-year-old male with past medical history of Hypertension, type II DM, history of CVA/CVA with chronic mild left-sided hemiparesis, status post pacemaker, that was brought to the emergency room when a friend saw him very lethargic. Patient lives by himself. He has not been able to eat or drink. His blood sugar was 37. Patient was recently admitted and discharged on 03/12/2022 with TIA. He subsequently was diagnosed with COVID on 03/14/2022. He had complained of nausea with inability to have appropriate oral intake, loose stools, sore throat, cough, low-grade fever and chills as well as lethargy. Patient's blood sugar w as treated in the ED with dextrose, glucagon. Other work-up was suggestive of pneumonia -right-sided infiltrate seen on chest x-ray. Patient was started on IV Rocephin and azithromycin. Patient completed 5 days of antibiotics in the hospital. He did not require any oxygen. He was kept in COVID precautions. He was seen by PT and OT and skilled for discharge to half-way facility. On the day of discharge, patient was seen and examined. Denied any new complaints. Physical Exam Narrative Physical exam: General: Alert, Oriented x3, Cooperative, appears unkempt HEENT: Atraumatic Oral: Moist Mucosa Neck: Supple Lungs: Diminished to auscultation Cardiovascular: HS I+II, regular, no murmurs Abdomen: Bowel Sounds Present, Soft, Non Tender Extremities: No edema Skin: No rashes, No breakdown Neurological: Grossly intact Psych/Mental Status: Appropriate Weight / BMI Weight Weight: 76.6 kg Body Mass Index (BMI) 24.3 ABG / Lab / Microbiology Data Result Diagrams: 03/22/22 06:10 03/22/22 06:10 Laboratory: Laboratory Results - last 24 hr 03/18/22 11:20: Diff Path Review Reviewed 03/19/22 06:10: Diff Path Review Reviewed 03/21/22 06:47: Hemoglobin A1c 8.8 H 03/21/22 06:47: Retic Count 0.68, Immature Retic Fraction 12.80, Retic Hgb Equivalent 23.6 L 03/21/22 06:47: Iron 12 L, TIBC 143 L, Iron Saturation 8.4 L, Ferritin 369 03/21/22 11:02: POC Glucose 107 H 03/21/22 15:59: POC Glucose 209 H 03/21/22 21:48: POC Glucose 228 H 03/22/22 06:04: POC Glucose 110 H 03/22/22 06:10: WBC 4.9, RBC 2.74 L, Hgb 7.4 L, Hct 22.2 L, MCV 81.0, MCH 27.0, MCHC 33.3, RDW Std Deviation 40.8, RDW Coeff of Harry 13.9, Plt Count 279, MPV 9.3, Immature Gran % (Auto) 1.600 H, Neut % (Auto) 68.4, Lymph % (Auto) 21.7, Meade % (Auto) 7.7, Eos % (Auto) 0.4, Baso % (Auto) 0.2, Absolute Neuts (auto) 3.4, Absolute Lymphs (auto) 1.07, Nucleated RBC % 0 03/22/22 06:10: Sodium 138, Potassium 4.3, Chloride 112 H, Carbon Dioxide 17.0 L , Anion Gap 9, BUN 62 H, Creatinine 2.57 H, Estim Creat Clear Calc 29.04, Est GFR (MDRD) Af Amer 33 L, Est GFR (MDRD) Non-Af 27 L, BUN/Creatinine Ratio 24.1 H , Glucose 104, Calcium 7.5 L, Total Bilirubin 0.20, AST 51 H, ALT 41, Alkaline Phosphatase 88, Total Protein 5.5 L, Albumin 1.8 L, Globulin 3.7, Alb umin/Globulin Ratio 0.5 L Microbiology: Microbiology 03/18/22 11:20 Blood Culture (Wb) - Anticubital Right Blood Culture - Preliminary No growth in 48 hours. 03/18/22 11:13 Blood Culture (Wb) - Anticubital Right Blood Culture - Preliminary No growth in 48 hours. 03/18/22 11:40 Urine, Catheterized Urine Culture - Final Culture exhibits no growth. 03/18/22 17:38 Urine Catheter - Catheter Legionella Antigen - Final 03/18/22 17:38 Urine Catheter - Catheter Streptococcus pneumoniae Antigen (M - Final 03/18/22 13:12 Mucosa - Nasopharyngeal Respiratory Panel (PCR) - Final D/C Instructions Discharge Diet: No restrictions Meaningful Use Info Meaningful Use Diagnoses (Choose all that apply): None applicable Discharge Plan Admission Admit Date/Time: 03/18/22 13:23 Primary Reason for Your Visit: Debility/pneumonia/metabolic/infectious encephalopathy/Acute COVID-19 Attending Provider: Edilia Moe Primary Care Provider: Vera Lucas Consulting Providers: Catherine Saravia Discharge Orders/Prescriptions Prescriptions: New hydralazine 50 mg Tablet 100 mg PO TID 30 Days Qty: 180 0RF ferrous sulfate 325 mg (65 mg iron) tablet 325 mg PO BID 30 Days Qty: 60 0RF ascorbic acid (vitamin C) [Vitamin C] 500 mg tablet 500 mg PO BID 30 Days Qty: 60 0RF Continued atorvastatin 80 MG tablet 80 mg PO DAILY metoprolol succinate 100 MG tablet extended release 24 hr 100 mg PO DAILY clopidogrel 75 MG tablet 75 mg PO DAILY multivitamin [Daily-Yousuf] Tablet 1 tab PO DAILY amlodipine 10 mg Tablet 10 mg PO DAILY tamsulosin [Flomax] 0.4 mg capsule 0.4 mg PO DAILY insulin glargine [Lantus Solostar U-100 Insulin] 100 UNIT/ML insulin pen 30 unit SQ DAILY Qty: 1 3RF Discontinued glimepiride 4 mg Tablet 4 mg PO DAILY hydralazine 50 mg Tablet 50 mg PO TID Referrals / Follow Up: Vera Lucas MD [Primary Care Provider] - 03/28/22 4:00 pm (APPOINTMENT WITH ON Monday03/28/2022 @ 4:00PM) Disposition Disposition (needs filled in before D/C Order can be placed): Assisted Facility Charges/Coding Visit Charges Inpatient E&M: 00691 Disch Hosp
[2022-03-22 09:51] VITALS: BP 140/72; PULSE 81; RESP 18; TEMP 37.7; O2SAT 95
[2022-03-22] MEDS: Ceftriaxone 1 GM/50 ML BAG IV (09:55)
[2022-03-22] MEDS: Menthol/Lanolin/Calamine/Znox 113 GM Tube 1 APPLIC TOPICAL ×2 (09:55→14:06)
[2022-03-22] MEDS: Insulin Glargine-YFGN 100 UNIT/ML Pen 30 UNIT SC (10:01)
[2022-03-22 10:02] VITALS: PULSE 81
[2022-03-22] MEDS: Metoprolol(XL)Succ 100 MG Tablet PO (10:02)
[2022-03-22] MEDS: amLODIPine 10 MG Tablet PO (10:02)
[2022-03-22] MEDS: Heparin Injection (Vial) 5,000 UNIT/ML VIAL 5000 UNIT SC (10:02)
[2022-03-22] MEDS: Clopidogrel Bisulfate 75 MG Tablet PO (10:02)
--- NOTE | 2022-03-22 10:15 | PHA.DC.MR ---
Pharmacy Service has performed discharge medication reconciliation for this patient. The patient's discharge medication list was reviewed for discrepancies and discrepancies were resolved. Home Medications atorvastatin 80 mg tablet 80 mg PO DAILY cholesterol 03/04/19 clopidogrel 75 mg tablet 75 mg PO DAILY blood thinner 04/25/19 metoprolol succinate 100 mg tablet,extended release 24 hr 100 mg PO DAILY heart rate 04/25/19 amlodipine 10 mg tablet 10 mg PO DAILY HTN 03/11/22 multivitamin (Daily-Yousuf tablet) 1 tab PO DAILY SUPPLEMENT 03/11/22 tamsulosin 0.4 mg capsule (Flomax) 0.4 mg PO DAILY PROSTATE 03/11/22 insulin glargine 100 unit/mL (3 mL) subcutaneous pen (Lantus Solostar U-100 Insulin) 30 unit (0.3 mL) SQ DAILY diabetes #1 mL 03/12/22 ascorbic acid (vitamin C) 500 mg tablet (Vitamin C) 500 mg PO BID 30 days #60 tabs 03/22/22 ferrous sulfate 325 mg (65 mg iron) tablet 325 mg PO BID 30 days #60 tabs 03/22/22 hydralazine 50 mg tablet 100 mg PO TID 30 days #180 tabs 03/22/22
[2022-03-22] MEDS: Sodium Ferric Gluconat 250 MG in 0.9% Normal Saline 250 ML 135 MG IV (11:47)
[2022-03-22] MEDS: 0.9% Saline Lock 10 ML Syringe IV (11:51)
[2022-03-22 12:25] LABS: Bedside Glucose 155 mg/dL (74-106)
[2022-03-22 14:05] VITALS: PULSE 79
[2022-03-22] MEDS: Magnesium Hydroxide 30 ML UDC PO (14:05)
[2022-03-22] MEDS: hydrALAZINE 50 MG Tablet 100 MG PO (14:05)
--- NOTE | 2022-03-22 14:07 | CASEMGMT ---
Social Work MARIANELA received level of care documents from [employer] Strategic Marketing Specialist, Deborah Garcia. MARIANELA faxed discharge orders to Renetta at the [facility], set up transportation with Physician's for 4:00pm and called Renetta at the [facility] to update her of pt's estimated arrival time for this evening. Marianela called pt's contact printer dry film, Fern Taylor, and updated her regarding pt's discharge and transfer to the [facility]. MARIANELA provided [facility] phone number to Fern following her request for it. Orders placed in pt chart and in envelope for nursing facility. TARA Hopson
[2022-03-22 14:08] VITALS: BP 144/74; PULSE 79; RESP 18; TEMP 36.8; O2SAT 94
--- NOTE | 2022-03-22 14:12 | CASEMGMT ---
Social Work VM left with Erum Garber, pt ambulatory care nurse at [facility]. Updated on pt discharge today to [facility] and discharge orders faxed. TARA Henry
--- NOTE | 2022-03-22 14:30 | NURSING ---
Report called to nurse at [facility], meat pickler time from [facility] is at 1600.
== END 2022-03-22 16:26 | disposition skilled nursing facility (03) | DRG 137 ==
LOC: ED 13:41 → MS3 03-21 07:35
PROVIDERS: Nurse Practitioner; Admitting Provider Family Medicine; Emergency Provider Emergency Medicine; PCP Internal Medicine; Visit Provider Internal Medicine
DX: U07.1 COVID-19 (principal); I69.954 Hemiplegia and hemiparesis following unspecified cerebrovascular disease affecting left non-dominant side; E11.649 Type 2 diabetes mellitus with hypoglycemia without coma; E11.22 Type 2 diabetes mellitus with diabetic chronic kidney disease; Z79.4 Long term (current) use of insulin; N18.32 Chronic kidney disease, stage 3b; J12.82 Pneumonia due to coronavirus disease 2019; G93.41 Metabolic encephalopathy; R62.7 Adult failure to thrive; E86.0 Dehydration; E78.5 Hyperlipidemia, unspecified; I12.9 Hypertensive chronic kidney disease with stage 1 through stage 4 chronic kidney disease, or unspecified chronic kidney disease; N40.0 Benign prostatic hyperplasia without lower urinary tract symptoms; Z68.24 Body mass index [BMI] 24.0-24.9, adult; Z79.82 Long term (current) use of aspirin; Z79.02 Long term (current) use of antithrombotics/antiplatelets; Z79.899 Other long term (current) drug therapy; Z95.0 Presence of cardiac pacemaker; Z87.891 Personal history of nicotine dependence; D64.9 Anemia, unspecified
CPT/HCPCS: J2916 ×2; U0005; 36415; 51702; 71045; 80053; 81001; 82728; 82962; 83036; 83540; 83550; 83605; 83615; 83735; 83880; 84145; 84484; 85025; 85045; 85379; 85610; 85730; 86140; 87040; 87086; 87449; 87633; 87635; 87641; 93005; 93970; 96361; 96365; 96366; 96367; 96368; 96372; 96375; 97110; 97162; 97165; 97530; 97535; 99221; 99285; A4216; G0378; J1610; U0003

== ENCOUNTER 2022-04-10 14:36 | Emergency (ER) | payer MEDICAID, SELFPAY ==
[2022-04-10 14:37] VITALS: BP 160/75; PULSE 75; RESP 18; TEMP 37; O2SAT 96; BMI 25.8
--- NOTE | 2022-04-10 15:07 | CT_ITS ---
EXAM: CT HEAD WITHOUT INTRAVENOUS CONTRAST CLINICAL INDICATION: trauma TECHNIQUE: Multiple axial images were obtained of the head without intravenous contrast. This CT exam was performed using one or more of the following dose reduction techniques: automated exposure control, adjustment of the mA and/or kV according to patient size, and/or use of iterative reconstruction technique. This report was created using [employer] report generation technology. COMPARISON: 03/11/2022 FINDINGS: BRAIN AND EXTRA-AXIAL SPACES: There is enlargement of the ventricular system and cortical sulci. There is hypoattenuation in the periventricular white matter. No intra- or extra-axial hemorrhage. No evidence of acute infarct. No intracranial mass or mass effect. There is preservation of the chery/white matter interface. Posterior fossa structures are unremarkable. Basal cisterns are patent. BONES/JOINTS: Unremarkable. No discrete lytic or blastic abnormalities. SINUSES: Unremarkable as visualized. Clear. MASTOID AIR CELLS: Unremarkable. Clear. ORBITS: Visualized globes, extraocular muscles, optic nerves and retrobulbar fat appear unremarkable. CT/Brain/Head without Contrast IMPRESSION: 1. No acute intracranial abnormality. 2. Underlying senescent change with small vessel ischemia. Electronically Signed: Josias Jo MD at 16:25 EDT ,
--- NOTE | 2022-04-10 15:09 | EDS_ITS ---
HPI History of Present Illness Chief Complaint: Fall Informant: patient and EMS Narrative Narrative: 66-year-old male presenting to the emergency room with left hip injury. Patient states that he is currently residing at the [facility]. He was coming back from the bathroom at around 0200 when he fell down. He states he did not notify anybody and crawled back into bed. This morning his hip was still hurting him and he is unable to bear weight on it. He also notes he struck the back of his head. He denies any neck or back pain. He states he is not on a blood thinner. [facility] Medical History Complete heart block (02/2019) COVID CVA (cerebral vascular accident) (02/2019) Diabetes mellitus DVT (deep venous thrombosis) Essential (primary) hypertension Former smoker HLD (hyperlipidemia) Irregular heart beat Kidney disease Migraines Pacemaker Paroxysmal supraventricular tachycardia (06/2017) Sick sinus syndrome Sinus pause Tachyarrhythmia Type II diabetes mellitus, uncontrolled Home Medications atorvastatin 80 mg tablet 80 mg PO DAILY cholesterol 03/04/19 [History Last Taken 03/11/22] metoprolol succinate 100 mg tablet,extended release 24 hr 100 mg PO DAILY heart rate 04/25/19 [History Last Taken 03/11/22] amlodipine 10 mg tablet 10 mg PO DAILY HTN 03/11/22 [History Last Taken 03/11/22] multivitamin (Daily-Yousuf tablet) 1 tab PO DAILY SUPPLEMENT 03/11/22 [History Last Taken 03/11/22] tamsulosin 0.4 mg capsule (Flomax) 0.4 mg PO QHS PROSTATE 03/11/22 [History Last Taken 03/10/22] ascorbic acid (vitamin C) 500 mg tablet (Vitamin C) 500 mg PO BID 30 days #60 tabs 03/22/22 [Rx Last Taken Unknown] ferrous sulfate 325 mg (65 mg iron) tablet 325 mg PO BID 30 days #60 tabs 03/22/22 [Rx Last Taken Unknown] hydralazine 50 mg tablet 100 mg PO TID 30 days #180 tabs 03/22/22 [Rx Last Taken Unknown] bisacodyl 10 mg rectal suppository 10 mg AK DAILY PRN Constipation 04/10/22 [History Last Taken Unknown] hydrocodone-acetaminophen 5-325mg 5mg-325mg 1 tab PO Q6H PRN PRN Pain 3 days #12 TABLETS 04/10/22 [Rx Last Taken Unknown] insulin glargine 100 unit/mL (3 mL) subcutaneous pen (Lantus Solostar U-100 Insulin) 30 unit SQ QHS diabetes 04/10/22 [History Last Taken Unknown] magnesium hydroxide 400 mg/5 mL oral suspension (Milk of Magnesia) 30 ml PO DAILY PRN Constipation 04/10/22 [History Last Taken Unknown] mineral oil 118 ml AK DAILY PRN Constipation 04/10/22 [History Last Taken Unknown] pyridoxine (vitamin B6) 50 mg tablet 50 mg PO BID 04/10/22 [History Last Taken Unknown] Allergy/AdvReac Type Severity Reaction Status Date / Time metformin [From Glucophage] AdvReac Diarrhea Verified 04/10/22 14:43 Family History Mother Cancer Father Heart disease Hypertension Myocardial infarction Surgical History History of carpal tunnel release History of permanent cardiac pacemaker placement (03/05/19) Social History household members: none Smoking Status: Former smoker Smokeless tobacco user: other alcohol intake: never substance use type: does not use ROS ROS ED Constitutional Constitutional ED: Denies chills or weight loss Eyes Eyes: Denies change in vision or diplopia ENT ENT ED: Denies ear pain, rhinorrhea or sore throat Cardiovascular Cardiovascular: Denies chest pain, orthopnea, palpitations or racing heartbeat Respiratory/Chest Respiratory/Chest: Denies cough, dyspnea or orthopnea Gastrointestinal Gastrointestinal: Denies abdominal pain, diarrhea, nausea or vomiting Genitourinary Genitourinary ED: Denies dysuria, hematuria or urinary frequency Musculoskeletal Musculoskeletal: Reports other Details: Left hip pain ; Denies arthralgias, back pain, myalgias or neck pain Integumentary Denies abscess or rash Neurologic Neurologic: Reports headache(s); Denies weakness Psychiatric Psychiatric: Denies anxiety, depression, suicidal ideation or suicidal thoughts Endocrine Endocrinology: Denies polydipsia, polyphagia or polyuria Allergic/Immunologic Allergic/Immunologic ED: Denies mouth swelling, tongue swelling or urticaria EXAM Physical Exam Const Vital Signs: 04/10/22 14:37 04/10/22 14:45 04/10/22 14:41 Temperature 98.6 F Temperature Source Oral Pulse Rate 75 Respiratory Rate 18 Respiratory Effort Normal Non-Labored Normal Non-Labored Respiratory Depth Normal Normal Respiratory Pattern Normal Normal Blood Pressure 160/75 H Blood Pressure Mean 103 Pulse Ox 96 Oxygen Delivery Method Room Air Room Air Positive well nourished and well developed General Appearance ED: well developed HEENT Reports normocephalic, head/scalp atraumatic and moist mucous membranes Eyes PERRL and EOMs intact bilaterally Neck no lymphadenopathy, supple and no JVD Resp normal respiratory effort and clear to auscultation bilaterally Cardio regular rate, regular rhythm and no murmurs GI normal to inspection, nondistended, normoactive bowel sounds and non-tender Palpation: soft Back/Spine no CVA tenderness and normal ROM Extremity Extremity Narrative: Positive logroll. Patient has tenderness over the left greater trochanter and hip. Distally it does appears shortened. General Extremety ED: Negative for edema General Extremity: Negative for edema Neuro oriented x3 and CN's II-XII intact bilaterally Sensorium / Orientation: alert Motor Exam: strength 5/5 throughout Psych mental status grossly normal Mood & Affect: Negative for depressed or tearful Skin no rashes or lesions noted and no wounds MDM MDM MDM Narrative Medical decision making narrative: Blood work obtained and seems to be near the patient's baseline. CT of the brain does not demonstrate any intracranial hemorrhage or fracture. My impression of the plain films of the left hip and pelvis is no acute fracture and radiology concurs. Patient received a dose of morphine. He states that he is feeling better. We attempted to ambulate him he was able to stand on the side of the bed but not ambulate. He states he typically uses a cane. He is certainly at the [facility] there and he is able to go back as a non ambulatory status. At this point I will write for the patient to have pain medication and will be discharged home. Lab Data Attestation: I reviewed the patient's lab results. Labs: Laboratory Results - last 24 hr 04/10/22 04/10/22 04/10/22 15:20 15:20 15:20 WBC 8.2 RBC 2.78 L Hgb 7.5 L Hct 23.4 L MCV 84.2 MCH 27.0 MCHC 32.1 RDW Std Deviation 45.1 H RDW Coeff of Harry 14.8 H Plt Count 270 MPV 9.2 Immature Gran % (Auto) 1.900 H Neut % (Auto) 71.7 H Lymph % (Auto) 16.9 L Rolette % (Auto) 7.9 Eos % (Auto) 1.5 Baso % (Auto) 0.1 Absolute Neuts (auto) 5.9 Absolute Lymphs (auto) 1.39 Nucleated RBC % 0 PT 13.2 INR 1.0 APTT 28.2 Sodium 139 Potassium 4.7 Chloride 112 H Carbon Dioxide 22.0 Anion Gap 5 BUN 38 H Creatinine 1.96 H Estim Creat Clear Calc 36.84 Est GFR (MDRD) Af Amer 45 L Est GFR (MDRD) Non-Af 37 L BUN/Creatinine Ratio 19.4 Glucose 263 H Calcium 7.7 L Total Bilirubin 0.20 AST 15 ALT 21 Alkaline Phosphatase 119 H Total Protein 5.8 L Albumin 2.2 L Globulin 3.6 Albumin/Globulin Ratio 0.6 L Radiography Diagnostic Testing: Clinical Impression(s) from Imaging Studies Brain CT 04/10/22 15:07 IMPRESSION: 1. No acute intracranial abnormality. 2. Underlying senescent change with small vessel ischemia. Electronically Signed: Josias Jo MD at 16:25 EDT , Hip/Pelvis X-Ray 04/10/22 16:22 IMPRESSION: No evidence of displaced pelvic or hip fracture. Electronically Signed: Josias Jo MD at 16:55 EDT , Discharge Plan Triage Chief Complaint: Fall ED Provider: Rodney Griffith Dx/Rx/DC Orders Clinical Impression: Fall, Hematoma of occipital region of scalp, Contusion of hip, left Instructions: ED Contusion, Lower Extremity, ED Head Injury (Adult) Prescriptions: New hydrocodone-acetaminophen [hydrocodone-acetaminophen] 5-325 mg tablet 1 tab PO Q6H PRN PRN (Reason: Pain) 3 Days Qty: 12 0RF No Action atorvastatin 80 MG tablet 80 mg PO DAILY metoprolol succinate 100 MG tablet extended release 24 hr 100 mg PO DAILY multivitamin [Daily-Yousuf] Tablet 1 tab PO DAILY amlodipine 10 mg Tablet 10 mg PO DAILY tamsulosin [Flomax] 0.4 mg capsule 0.4 mg PO QHS hydralazine 50 mg Tablet 100 mg PO TID 30 Days Qty: 180 0RF ferrous sulfate 325 mg (65 mg iron) tablet 325 mg PO BID 30 Days Qty: 60 0RF ascorbic acid (vitamin C) [Vitamin C] 500 mg tablet 500 mg PO BID 30 Days Qty: 60 0RF mineral oil [Enema] Enema 118 ml AK DAILY PRN (Reason: Constipation) Rx Instructions: discard any unused portion magnesium hydroxide [Milk of Magnesia] 400 mg/5 mL Suspension 30 ml PO DAILY PRN (Reason: Constipation) bisacodyl 10 mg Suppository 10 mg AK DAILY PRN (Reason: Constipation) pyridoxine (vitamin B6) 50 mg Tablet 50 mg PO BID insulin glargine [Lantus Solostar U-100 Insulin] 100 UNIT/ML insulin pen 30 unit SQ QHS Primary Care Provider: Travis Lo Referrals: Travis Lo MD [Primary Care Provider] - As Needed Disposition Disposition: Detention Facility Discharge Location: [facility]
[2022-04-10 15:27] LABS: Absolute Lymphocyte Count 1.39 X10^3/uL (0.83-4.51); Absolute Neutrophil Count 5.9 X10^3/uL (2.0-7.7); Basophil# 0.01 X10^3/uL; Basophil% 0.1 % (0-1); Eosinophil# 0.12 X10^3/uL; Eosinophils% 1.5 % (0-5); Hematocrit 23.4 % (40-54); Hemoglobin 7.5 g/dL (13.0-16.5); Lymphocyte # 1.39 X10^3/ul (0.83-4.51); Lymphocyte % 16.9 % (19-41); Mean Corp Hgb Conc 32.1 g/dL (32-36); Mean Corpuscular Volume 84.2 fL (80-94); Mean Platelet Vol. 9.2 fl (6.2-12.0); Monocyte# 0.65 X10^3/uL; Monocyte% 7.9 % (0-10); NRBC Flagged by Analyzer 0 % (0-5); Neutrophil # 5.89 X10^3/uL (2.7-7.7); Neutrophil % 71.7 % (47-70); Platelet Count 270 K/mm3 (150-450); RBC Distribution Width CV 14.8 % (11.6-14.6); RBC Distribution Width SD 45.1 fl (35.1-43.9); Red Blood Count 2.78 M/mm3 (4.6-6.2); White Blood Count 8.2 K/mm3 (4.4-11.0)
[2022-04-10] MEDS: Morphine 4 MG/ML Syringe IV (15:37)
[2022-04-10 15:40] LABS: Prothrombin Time (Protime)PT. 13.2 SECONDS (11.7-14.9)
[2022-04-10 15:41] LABS: Partial Thromboplast Time 28.2 Seconds (24.1-36.2)
[2022-04-10 15:47] LABS: ALB/GLOB Ratio 0.6 RATIO (0.9-2.4); AST(SGOT) 15 U/L (15-37); Alanine Aminotransfer ALT/SGPT 21 U/L (16-61); Albumin, Serum 2.2 g/dL (3.2-5.0); Alkaline Phosphatase 119 U/L (45-117); Anion Gap 5 (5-15); BUN 38 mg/dL (7-18); BUN/Creat Ratio 19.4 RATIO (10-20); Calcium,Total 7.7 mg/dL (8.5-10.1); Chloride 112 mmol/L (98-107); Creatinine, Serum 1.96 mg/dL (0.70-1.30); EST Glomerular Filtration Rate 37 mL/min (>60); Est Glom Filt Rate - Afr Amer 45 mL/min (>60); Estimated Creatinine Clearance 36.84 ml/min; Globulin 3.6 g/dL (2.2-4.2); Glucose 263 mg/dL (74-106); Potassium 4.7 mmol/L (3.5-5.1); Protein, Total 5.8 g/dL (6.4-8.2); Sodium Level 139 mmol/L (136-145)
--- NOTE | 2022-04-10 16:22 | RAD_ITS ---
EXAM: XR LEFT HIP WITH PELVIS WHEN PERFORMED, 2 OR 3 VIEWS CLINICAL INDICATION: injury TECHNIQUE: Two or three views of the left hip with pelvis when performed. This report was created using [employer] report generation technology. COMPARISON: None. FINDINGS: BONES/JOINTS: Unremarkable. No displaced fracture. No destructive or sclerotic lesions. Note that overlapping bowel shadows may however obscure fine detail. Sacroiliac joint is unremarkable. No widening of the pubic symphysis. The articular structures are unremarkable. SOFT TISSUES: Unremarkable. No soft tissue swelling or gas. RAD/HIP, UNI W/ Pelvis 2-3 Views IMPRESSION: No evidence of displaced pelvic or hip fracture. Electronically Signed: Josias Jo MD at 16:55 EDT ,
[2022-04-10] MEDS: Ketorolac 30 MG/ML Syringe IV (17:27)
[2022-04-10 17:30] VITALS: BP 138/91; PULSE 71; RESP 16; O2SAT 95
== END 2022-04-10 17:38 | disposition skilled nursing facility (03) ==
PROVIDERS: Emergency Provider Emergency Medicine; PCP Family Medicine; Visit Provider Emergency Medicine
DX: S00.03XA Contusion of scalp, initial encounter (principal); E11.9 Type 2 diabetes mellitus without complications; Z79.4 Long term (current) use of insulin; S70.02XA Contusion of left hip, initial encounter; I10 Essential (primary) hypertension; E78.5 Hyperlipidemia, unspecified; W18.30XA Fall on same level, unspecified, initial encounter; Y93.01 Activity, walking, marching and hiking; Y92.099 Unspecified place in other non-institutional residence as the place of occurrence of the external cause; Z79.899 Other long term (current) drug therapy; Z86.73 Personal history of transient ischemic attack (TIA), and cerebral infarction without residual deficits; Z86.718 Personal history of other venous thrombosis and embolism; Z87.891 Personal history of nicotine dependence; Z95.0 Presence of cardiac pacemaker
CPT/HCPCS: 70450; 73502; 80053; 85025; 85610; 85730; 96374; 96375; 99285; A4216

== ENCOUNTER 2022-09-14 10:32 | Emergency (ER) | payer MEDICAID, SELFPAY ==
[2022-09-14 10:33] VITALS: BP 156/83; PULSE 98; RESP 22; TEMP 37.1; O2SAT 100; BMI 24.5
--- NOTE | 2022-09-14 11:09 | EKG12_ITS ---
Test Reason : Blood Pressure : / mmHG Vent. Rate : 101 BPM Atrial Rate : 101 BPM P-R Int : 220 ms QRS Dur : 088 ms QT Int : 430 ms P-R-T Axes : 025 -22 093 degrees QTc Int : 557 ms Sinus tachycardia with 1st degree A-V block Minimal voltage criteria for LVH, may be normal variant ( R in aVL ) Nonspecific ST and T wave abnormality Prolonged QT Abnormal ECG Confirmed by BOUCHRA VILLA, FESTUS ([id number]), editorial assistant ROCKY LO ([id number]) on 09/16/2022 10:07:31 AM Referred By: Confirmed By:FESTUS SHOOK MD
--- NOTE | 2022-09-14 11:15 | EDS_ITS ---
HPI History of Present Illness Chief Complaint: Nausea/Vomiting Informant: patient and family Narrative Narrative: Patient is a 66-year-old male with history of hypertension, sick sinus syndrome, complete heart block status post permanent cardiac pacemaker, pneumonia, adult failure to thrive, diabetes, CKD 3 and hyperlipidemia presenting from home for nausea, vomiting and hyperglycemia. His sister is at the bedside who is his medical POA however patient still makes his own decisions and does not have a legal guardian. Patient had a high blood sugar of 600 yesterday per the home health aide. Apparently had not been taking his Victoza because he thought it had and threw it out. His sister also takes Victoza and let him borrow her so he had a dose yesterday. Patient was up all night vomiting which they described as liquid. The home health aide called the sister this morning as they were concerned his lips looked a little bit more purple and he was tremulous so 911 was called and patient was sent to the ER. Patient is completely complaining of some nausea and feeling cold but no other complaints. No report of any fevers. Patient is some chronic constipation which is unchanged. [facility] Medical History (Updated 09/14/22 @ 16:[address] Taisha Luis, DO) Ambulates with cane Cardiology follow-up encounter Complete heart block (02/2019) COVID CVA (cerebral vascular accident) (02/2019) Diabetes Diabetes mellitus Dietary restriction DVT (deep venous thrombosis) Essential (primary) hypertension Former smoker High cholesterol History of echocardiogram History of edema History of renal disease History of stress test HLD (hyperlipidemia) Irregular heart beat Kidney disease Migraines Pacemaker Paroxysmal supraventricular tachycardia (06/2017) Sick sinus syndrome Sinus pause Stroke/cerebrovascular accident Syncope Tachyarrhythmia Type II diabetes mellitus, uncontrolled Wears glasses Home Medications atorvastatin 80 mg tablet 80 mg PO DAILY cholesterol 03/04/19 [History Last Taken 03/11/22] metoprolol succinate 100 mg tablet,extended release 24 hr 100 mg PO DAILY heart rate 04/25/19 [History Last Taken 03/11/22] multivitamin (Daily-Yousuf tablet) 1 tab PO DAILY SUPPLEMENT 03/11/22 [History Last Taken 03/11/22] tamsulosin 0.4 mg capsule (Flomax) 0.4 mg PO QHS PROSTATE 03/11/22 [History Last Taken 03/10/22] ascorbic acid (vitamin C) 500 mg tablet (Vitamin C) 500 mg PO BID 30 days #60 tabs 03/22/22 [Rx Last Taken Unknown] ferrous sulfate 325 mg (65 mg iron) tablet 325 mg PO BID 30 days #60 tabs 03/22/22 [Rx Last Taken Unknown] hydralazine 50 mg tablet 100 mg PO TID 30 days #180 tabs 03/22/22 [Rx Last Taken Unknown] hydrocodone-acetaminophen 5-325mg 5mg-325mg 1 tab PO Q6H PRN PRN Pain 3 days #12 TABLETS 04/10/22 [Rx Last Taken Unknown] magnesium hydroxide 400 mg/5 mL oral suspension (Milk of Magnesia) 30 ml PO DAILY PRN Constipation 04/10/22 [History Last Taken Unknown] mineral oil 118 ml AZ DAILY PRN Constipation 04/10/22 [History Last Taken Unknown] pyridoxine (vitamin B6) 50 mg tablet 50 mg PO BID 04/10/22 [History Last Taken Unknown] lactulose 20 gram/30 mL oral solution 20 g (30 mL) PO BID #1,200 mL 06/15/22 [Rx Last Taken Unknown] insulin glargine 100 unit/mL subcutaneous cartridge 30 unit subcut QPM 07/28/22 [History Last Taken Unknown] metoclopramide HCl 5 mg tablet (Reglan) 5 mg PO Q6H PRN nausea and vomiting #20 tabs 09/14/22 [Rx Last Taken Unknown] Allergy/AdvReac Type Severity Reaction Status Date / Time metformin [From Glucophage] AdvReac Diarrhea Verified 09/14/22 10:33 Family History Mother Cancer Father Heart disease Hypertension Myocardial infarction Surgical History History of carpal tunnel release History of permanent cardiac pacemaker placement (03/05/19) Social History household members: none Smoking Status: Former smoker Smokeless tobacco user: other alcohol intake: never substance use type: does not use ROS ROS ED Constitutional Constitutional ED: Reports chills; Denies fever(s) Eyes Eyes: Denies change in vision ENT ENT ED: Denies sore throat Cardiovascular Cardiovascular: Denies chest pain Respiratory/Chest Respiratory/Chest: Denies cough Gastrointestinal Gastrointestinal: Reports nausea and vomiting; Denies abdominal pain Musculoskeletal Musculoskeletal: Denies arthralgias or myalgias Integumentary Denies rash Neurologic Neurologic: Reports weakness; Denies headache(s) Psychiatric Psychiatric: Denies anxiety Hematologic/Lymphatic Hematologic/Lymphatic: Denies easy bleeding or easy bruising EXAM Physical Exam Const Vital Signs: 09/14/22 10:33 09/14/22 12:15 09/14/22 14:56 Temperature 98.7 F Temperature Source Temporal Pulse Rate 98 94 87 Respiratory Rate 22 H 24 H 16 Blood Pressure 156/83 H 146/84 H 172/88 H Blood Pressure Mean 107 104 116 Pulse Ox 100 95 95 Oxygen Delivery Method Room Air Room Air Room Air Constitutional Narrative: Chronically ill-appearing General Appearance ED: NAD HEENT Reports TM's clear and dry mucous membranes Negative for trauma Tympanic Membrane ED: Yes TM's clear Mouth ED: Yes dry mucous membranes Mouth: dry mucous membranes Eyes PERRL and EOMs intact bilaterally Neck supple and no JVD Neck Narrative: No meningeal signs Chest Wall inspection of chest normal Resp normal respiratory effort and clear to auscultation bilaterally Cardio regular rate, regular rhythm and no murmurs GI normal to inspection, nondistended, normoactive bowel sounds and non-tender Palpation: Negative for tender or guarding Back/Spine no CVA tenderness Extremity normal to inspection General Extremety ED: Negative for edema or tenderness General Extremity: Negative for edema Neuro oriented x3 Neuro Narrative: No focal deficits appreciated Sensorium / Orientation: alert Motor Exam: general weakness Psych mental status grossly normal Skin no rashes or lesions noted and no wounds MDM MDM MDM Narrative Medical decision making narrative: Patient is a 66-year-old male presenting with nausea, vomiting and hyperglycemia. Patient stopped taking his Victoza because he ran out/threw it out. His blood sugar yesterday was 600. Differential included but not limited to hyperglycemia, DKA, HH NK, pancreatitis, small bowel obstruction, dehydration and infection. Patient is given IV Zofran as well as IV fluids with significant improvement of symptoms. He is found to likely be hemoconcentrated with a hemoglobin of 10.8 which is above his baseline of 7.5. Patient's CMP is remarkable for chronically elevated creatinine of 2.86 which is near his baseline of 2.5. Patient does not meet criteria for VENICE. His sodium was mildly low at 135 and his glucose is elevated at 531. His anion gap is 14. Lipase is normal at 157. Acetone is negative and his VBG showed a mild metabolic alkalosis with chronic metabolic acidosis. Given his elevated alkaline phosphatase with nausea and vomiting an ultrasound of the right upper quadrant is obtained which does show 8 mm x 8 mm x 8 mm gallbladder polyp. No findings since with acute cholecystitis. Patient is on have tenderness in his right upper quadrant. He is informed of this finding and given surgery for outpatient follow-up. Patient is now feeling much better and states he would like to go home. He is given a second liter of IV fluid. He does not meet criteria for DKA or HHNK as he is not acidotic, has no ketosis and has a normal anion gap. His calculated serum osmolality is 315 which is below the threshold for hyperosmolar hyperglycemia nonketotic state given that patient now has his medication take at home I think he can be discharged home. After fluid his blood sugar is 401 and he is given 10 units of insulin. Patient is quite agreeable this plan. His EKG did show prolonged QTc so he will be d ischarged home with Reglan instead of Zofran. Patient and his sister are agreeable this plan of care. Patient is tolerating p.o. in the ER. He is no further vomiting and I have a low suspicion for small bowel obstruction. He has active bowel sounds and is nondistended. Lab Data Attestation: I reviewed the patient's lab results. Labs: Laboratory Results - last 24 hr 09/14/22 09/14/22 09/14/22 11:20 11:20 11:20 WBC 10.6 RBC 3.95 L Hgb 10.8 L Hct 31.6 L MCV 80.0 MCH 27.3 MCHC 34.2 RDW Std Deviation 37.8 RDW Coeff of Harry 13.2 Plt Count 280 MPV 10.6 Immature Gran % (Auto) 1.500 H Neut % (Auto) 81.0 H Lymph % (Auto) 12.1 L [place] % (Auto) 4.4 Eos % (Auto) 0.7 Baso % (Auto) 0.3 Absolute Neuts (auto) 8.6 H Absolute Lymphs (auto) 1.29 Nucleated RBC % 0 Sodium 135 L Potassium 4.4 Chloride 93 L Carbon Dioxide 28.0 Anion Gap 14 BUN 44 H Creatinine 2.86 H Estim Creat Clear Calc 25.24 Est GFR (MDRD) Af Amer 29 L Est GFR (MDRD) Non-Af 24 L BUN/Creatinine Ratio 15.4 Glucose 531 H* Calcium 9.8 Total Bilirubin 0.70 AST 16 ALT 21 Alkaline Phosphatase 174 H Total Protein 7.2 Albumin 3.2 Globulin 4.0 Albumin/Globulin Ratio 0.8 L Lipase 157 Urine Color Urine Clarity Urine pH Ur Specific Regan Urine Protein Urine Glucose (UA) Urine Ketones Urine Occult Blood Urine Nitrite Urine Bilirubin Urine Urobilinogen Ur Leukocyte Esterase Urine RBC Urine WBC Ur Squamous Epith Cells Urine Bacteria Urine Mucus Acetone Level NEGATIVE POC Glucose 09/14/22 09/14/22 09/14/22 11:50 14:13 15:55 WBC RBC Hgb Hct MCV MCH MCHC RDW Std Deviation RDW Coeff of Harry Plt Count MPV Immature Gran % (Auto) Neut % (Auto) Lymph % (Auto) [place] % (Auto) Eos % (Auto) Baso % (Auto) Absolute Neuts (auto) Absolute Lymphs (auto) Nucleated RBC % Sodium Potassium Chloride Carbon Dioxide Anion Gap BUN Creatinine Estim Creat Clear Calc Est GFR (MDRD) Af Amer Est GFR (MDRD) Non-Af BUN/Creatinine Ratio Glucose Calcium Total Bilirubin AST ALT Alkaline Phosphatase Total Protein Albumin Globulin Albumin/Globulin Ratio Lipase Urine Color Yellow Urine Clarity Clear Urine pH 7.0 Ur Specific Regan 1.010 Urine Protein 500 H Urine Glucose (UA) 1000 H Urine Ketones 5 H Urine Occult Blood 25 H Urine Nitrite Negative Urine Bilirubin Negative Urine Urobilinogen Normal Ur Leukocyte Esterase Negative Urine RBC 0 SEEN Urine WBC 0-5 SEEN Ur Squamous Epith Cells 0-5 SEEN Urine Bacteria 0 SEEN Urine Mucus 0 SEEN Acetone Level POC Glucose 470 H* 401 H ABG Data ABG results: ABG 09/14/22 12:21 Specimen Type MALLORIE VBG pH 7.48 H VBG pO2 54 H VBG HCO3 28 H VBG Total CO2 30 VBG O2 Sat (Calc) 90 H VBG Base Excess 5 H POC Mix VBG pCO2 Pt Tmp 38.1 L O2 Delivery Device Room Air Radiography Chest X-Ray - ED: 1 View, Read by ED Physician, Read by Radiologist and No Acute Disease Diagnostic Testing: Clinical Impression(s) from Imaging Studies Chest X-Ray 09/14/22 11:22 IMPRESSION: No acute abnormality is seen. Electronically Signed: Joseph Denton MD at 12:07 EST , Gallbladder Ultrasound 09/14/22 12:25 IMPRESSION: 8mm by 8mm by 8 mm gallbladder polyp. Electronically Signed: Joseph Denton MD at 13:54 EST , Rhythm Strip Rhythm Strip: Sinus Tach Rate: 101 Ectopy: None EKG Initial EKG: Attestation: I personally reviewed and interpreted this EKG as follows: Interpretation: Sinus Tachycardia Comments: Sinus tachycardia at a rate of 101 bpm First-degree AV block with AZ interval of 220 Left axis deviation Minimal voltage criteria for LVH Nonspecific ST changes Prolonged QTc of 557 Compared to prior EKG patient has a prolonged QTc Discharge Plan Triage Chief Complaint: Nausea/Vomiting Other Complaint: Hyperglycemia ED Provider: Taisha Luis Dx/Rx/DC Orders Clinical Impression: Nausea and vomiting, Hyperglycemia, Insulin dependent diabetes mellitus, Dehydration, Gallbladder polyp Instructions: ED Diabetic Hyperglycemia, ED Vomiting (Adult) Prescriptions: New metoclopramide HCl [Reglan] 5 mg tablet 5 mg PO Q6H PRN (Reason: nausea and vomiting) Qty: 20 0RF No Action lactulose 20 gram/30 mL solution 20 g PO BID Qty: 1200 3RF atorvastatin 80 MG tablet 80 mg PO DAILY metoprolol succinate 100 MG tablet extended release 24 hr 100 mg PO DAILY multivitamin [Daily-Yousuf] Tablet 1 tab PO DAILY tamsulosin [Flomax] 0.4 mg capsule 0.4 mg PO QHS hydralazine 50 mg Tablet 100 mg PO TID 30 Days Qty: 180 0RF ferrous sulfate 325 mg (65 mg iron) tablet 325 mg PO BID 30 Days Qty: 60 0RF ascorbic acid (vitamin C) [Vitamin C] 500 mg tablet 500 mg PO BID 30 Days Qty: 60 0RF mineral oil [Enema] Enema 118 ml [place] DAILY PRN (Reason: Constipation) Rx Instructions: discard any unused portion magnesium hydroxide [Milk of Magnesia] 400 mg/5 mL Suspension 30 ml PO DAILY PRN (Reason: Constipation) pyridoxine (vitamin B6) 50 mg Tablet 50 mg PO BID hydrocodone-acetaminophen [hydrocodone-acetaminophen] 5-325 mg tablet 1 tab PO Q6H PRN PRN (Reason: Pain) 3 Days Qty: 12 0RF Lantus U-100 Insulin 100 unit/mL Cartridge 30 unit SUBCUT QPM Primary Care Provider: Vera Lucas Referrals: Gigi Mckeon MD [Med Staff - Active Staff] - As Needed Travis Lo MD [Med Staff - Active Staff] - Activity Restrictions/Additional Instructions: Your labs were consistent with high blood sugar but no other significant abnormalities that are acute. Your alkaline phosphatase was mildly elevated which is a nonspecific finding. This led to your ultrasound of your gallbladder which did show a gallbladder polyp. You been referred to Dr. Mckeon, general surgery, for further evaluation of this. I do not think it is the cause of your problems today. Please follow-up with your primary care doctor and make sure you are taking all of your diabetic medications as prescribed. Return if you have progression or worsening of your symptoms. Disposition Disposition: Home, Self Care
[2022-09-14] MEDS: 0.9% Normal Saline 1,000 ML 1000 ML IV (11:19)
[2022-09-14] MEDS: Ondansetron 4 MG/2 ML Vial IV (11:19)
--- NOTE | 2022-09-14 11:22 | RAD_ITS ---
STUDY: X-RAY CHEST REASON FOR EXAM: Male, 66 years old. Weakness, vomiting TECHNIQUE: Single AP portable view of the chest. COMPARISON: Comparison is made with prior study 03/18/2022. FINDINGS: EKG electrodes are seen. The lungs are clear and expanded. There is no demonstrated pleural abnormality. A left-sided dual-chamber pacemaker is present. Normal mediastinum and merna. Normal visualized pulmonary arteries. There is atherosclerotic calcification of the aortic arch with tortuosity. Normal visualized thoracic spine. Normal visualized ribs, clavicles, and shoulders. There is no demonstrated abnormality of the visualized soft tissue structures of the upper abdomen. RAD/Chest 1 View (Portable) IMPRESSION: No acute abnormality is seen. Electronically Signed: Joseph Denton MD at 12:07 [facility] ,
[2022-09-14 11:30] LABS: Absolute Lymphocyte Count 1.29 X10^3/uL (0.83-4.51); Absolute Neutrophil Count 8.6 X10^3/uL (2.0-7.7); Basophil# 0.03 X10^3/uL; Basophil% 0.3 % (0-1); Eosinophil# 0.07 X10^3/uL; Eosinophils% 0.7 % (0-5); Hematocrit 31.6 % (40-54); Hemoglobin 10.8 g/dL (13.0-16.5); Lymphocyte # 1.29 X10^3/ul (0.83-4.51); Lymphocyte % 12.1 % (19-41); Mean Corp Hgb Conc 34.2 g/dL (32-36); Mean Corpuscular Hgb 27.3 pg (27.0-32.0); Mean Platelet Vol. 10.6 fl (6.2-12.0); Monocyte# 0.47 X10^3/uL; Monocyte% 4.4 % (0-10); NRBC Flagged by Analyzer 0 % (0-5); Platelet Count 280 K/mm3 (150-450); RBC Distribution Width CV 13.2 % (11.6-14.6); RBC Distribution Width SD 37.8 fl (35.1-43.9); Red Blood Count 3.95 M/mm3 (4.6-6.2); White Blood Count 10.6 K/mm3 (4.4-11.0)
[2022-09-14 11:55] LABS: Bacteria 0 SEEN /hpf (None Seen); Mucous, Urine 0 SEEN /hpf (<or=2+); Red Blood Cells-Urine 0 SEEN /hpf (0-5)
[2022-09-14 11:56] LABS: ALB/GLOB Ratio 0.8 RATIO (0.9-2.4); AST(SGOT) 16 U/L (15-37); Alanine Aminotransfer ALT/SGPT 21 U/L (16-61); Albumin, Serum 3.2 g/dL (3.2-5.0); Alkaline Phosphatase 174 U/L (45-117); Anion Gap 14 (5-15); BUN 44 mg/dL (7-18); BUN/Creat Ratio 15.4 RATIO (10-20); Calcium,Total 9.8 mg/dL (8.5-10.1); Chloride 93 mmol/L (98-107); Creatinine, Serum 2.86 mg/dL (0.70-1.30); EST Glomerular Filtration Rate 24 mL/min (>60); Est Glom Filt Rate - Afr Amer 29 mL/min (>60); Estimated Creatinine Clearance 25.24 ml/min; Glucose 531 mg/dL (74-106); Lipase 157 U/L (73-393); Potassium 4.4 mmol/L (3.5-5.1); Protein, Total 7.2 g/dL (6.4-8.2); Sodium Level 135 mmol/L (136-145)
[2022-09-14 12:01] LABS: Color, Urine Yellow (Yellow); Glucose, Dipstick 1000 mg/dl (Normal); Ketone-Dipstick 5 mg/dl (Negative); Leukocyte Esterase-Dipstick Negative /ul (Negative); Nitrite-Dipstick Negative (Negative); Occult Blood-Urine 25 /ul (Negative); Protein-Dipstick 500 mg/dl (Negative); Urine Bilirubin Dipstick Negative (Negative); Urine Clarity Clear (Clear); Urine Urobilinogen Normal (Normal)
[2022-09-14 12:06] LABS: Squamous Epithelial Cells - UA 0-5 SEEN /hpf (0-5); White Blood Cells 0-5 SEEN /hpf (0-5)
[2022-09-14 12:15] VITALS: BP 146/84; PULSE 94; RESP 24; O2SAT 95
[2022-09-14 12:25] LABS: Blood Gas Specimen Type VEN; O2 Delivery Device Room Air; VBG BASE EXCESS 5 mmol/L (-1.0-3.5); VBG Bicarbonate 28 mmol/L (22-26); VBG PO2 54 mmHg (25-40); VBG SO2 90 % (50-70); VBG TCO2 30 mmol/L (23-33); VBG pCO2 38.1 mmHg (41-51); VBG pH 7.48 (7.32-7.42)
--- NOTE | 2022-09-14 12:25 | US_ITS ---
STUDY: ABDOMINAL ULTRASOUND - RIGHT UPPER QUADRANT REASON FOR VISIT: Male, 66 years old vomiting, elevated alk phos TECHNIQUE: Ultrasound evaluation of the right upper quadrant was performed with real-time and static chery-scale imaging. TECHNICAL QUALITY: Adequate. COMPARISON: Comparison is made with prior CT scan dated 01/10/2018. FINDINGS: Liver: The liver measures 16.8 cm. There is normal echogenicity of the liver. The bile ducts are within normal limits. There is hepatic color flow. The direction of portal flow is hepatopetal. There is no demonstrated mass lesion. Gallbladder: Normal distended gallbladder. The gallbladder wall measures 2.0 mm. There is a negative sonographic Santos''s sign. There is no pericholecystic fluid. There are no gallstones. There is an 8mm by 8mm by 8mm polyp adherent to the gallbladder wall. Common Bile Duct (C.B.D.): The common bile duct measures 6 mm. Pancreas: There is diffuse atrophy of the pancreas. There is normal echogenicity of the pancreas. There is no demonstrated pancreatic mass or cyst. Right Kidney: Normal size of the right kidney. The right kidney measures 12 cm x 5.4 cm x 5.3 cm. Normal renal cortex. The right cortex measures 1.8 cm. There is no demonstrated renal mass or cyst. There is no right hydronephrosis. US/Gallbladder IMPRESSION: 8mm by 8mm by 8 mm gallbladder polyp. Electronically Signed: Joseph Denton MD at 13:54 EST ,
[2022-09-14] MEDS: 0.9% Normal Saline 1,000 ML 999 ML IV (14:34)
[2022-09-14 14:35] LABS: Bedside Glucose 470 mg/dL (74-106)
[2022-09-14 14:56] VITALS: BP 172/88; PULSE 87; RESP 16; O2SAT 95
[2022-09-14 16:15] LABS: Bedside Glucose 401 mg/dL (74-106)
[2022-09-14] MEDS: Insulin Lispro 100 UNIT/ML INSULN.PEN 10 UNIT SC (17:34)
[2022-09-14 17:39] VITALS: BP 148/78; PULSE 81; RESP 16; O2SAT 97
== END 2022-09-14 17:39 | disposition home or self-care (01) ==
PROVIDERS: Emergency Provider Emergency Medicine; PCP Internal Medicine; Visit Provider Emergency Medicine
DX: E11.65 Type 2 diabetes mellitus with hyperglycemia (principal); E11.22 Type 2 diabetes mellitus with diabetic chronic kidney disease; Z79.4 Long term (current) use of insulin; N18.30 Chronic kidney disease, stage 3 unspecified; E78.00 Pure hypercholesterolemia, unspecified; I12.9 Hypertensive chronic kidney disease with stage 1 through stage 4 chronic kidney disease, or unspecified chronic kidney disease; E87.22 Chronic metabolic acidosis; E87.3 Alkalosis; E87.1 Hypo-osmolality and hyponatremia; R11.2 Nausea with vomiting, unspecified; K82.4 Cholesterolosis of gallbladder; E86.0 Dehydration; Z79.899 Other long term (current) drug therapy; Z87.891 Personal history of nicotine dependence; Z86.73 Personal history of transient ischemic attack (TIA), and cerebral infarction without residual deficits; Z95.0 Presence of cardiac pacemaker
CPT/HCPCS: 71045; 76705; 80053; 81001; 82009; 82803; 82962; 83690; 85025; 93005; 96361; 96374; 99285; J7030; A4216; J2405

== ENCOUNTER 2022-09-30 15:57 | Emergency (ER) | payer MEDICAID, SELFPAY ==
[2022-09-30 15:57] VITALS: BP 165/80; PULSE 77; RESP 18; TEMP 36.2; O2SAT 97; BMI 25.2
--- NOTE | 2022-09-30 17:11 | CT_ITS ---
INDICATION: Trauma, fall EXAMINATION: CT BRAIN - CT Head or Brain W/O Contrast Injection TECHNIQUE: Multiple axial images were obtained of the head without intravenous contrast. A radiation dose optimization technique was used for this scan. IV Contrast dosage and agent: None. COMPARISON: 04/10/2022 FINDINGS: BRAIN PARENCHYMA: No intra- or extra-axial hemorrhage. No acute territorial infarction. Stable chronic lacunar infarctions in the bilateral basal ganglia. No intracranial mass or mass effect. Posterior fossa structures are unremarkable. Stable volume loss with low attenuation of the periventricular white matter typical of chronic small vessel disease. CSF SPACES: Appropriate for age. No hydrocephalus. Basal cisterns are patent. CALVARIUM, SKULL BASE, PARANASAL SINUSES AND MASTOID AIR CELLS: Scattered minimal mucoperiosteal thickening. No acute fracture. CT/Brain/Head without Contrast IMPRESSION: Volume loss with chronic white matter changes. No acute intracranial findings. Electronically Signed: Ambrosio Bruce MD at 18:06 EST ,
--- NOTE | 2022-09-30 17:13 | EX.ED.DYSGE1 ---
HPI History of Present Illness Chief Complaint: Fall Informant: patient and family Onset/Context/Timing Onset: Today Narrative Narrative: Patient presents with general surgery office after a fall. Patient was in the emergency room earlier this month and found to have hyperglycemia with glucose is over 500 and a gallbladder polyp. He was following up in the surgery office today. When he was getting off the exam table he lost his balance and fell striking his left islam against a cabinet. There was no loss of consciousness and he is on no anticoagulants. Family was concerned about his blood sugar being elevated again and was sent back to the ER for evaluation. Patient denies any other injury from the headache. He does complain of a mild headache. [facility] Medical History Ambulates with cane Cardiology follow-up encounter Complete heart block (02/2019) COVID CVA (cerebral vascular accident) (02/2019) Diabetes Diabetes mellitus Dietary restriction DVT (deep venous thrombosis) Essential (primary) hypertension Former smoker High cholesterol History of echocardiogram History of edema History of renal disease History of stress test HLD (hyperlipidemia) Irregular heart beat Kidney disease Migraines Pacemaker Paroxysmal supraventricular tachycardia (06/2017) Sick sinus syndrome Sinus pause Stroke/cerebrovascular accident Syncope Tachyarrhythmia Type II diabetes mellitus, uncontrolled Wears glasses Home Medications atorvastatin 80 mg tablet 80 mg PO DAILY cholesterol 03/04/19 [History Last Taken 03/11/22] metoprolol succinate 100 mg tablet,extended release 24 hr 100 mg PO DAILY heart rate 04/25/19 [History Last Taken 03/11/22] multivitamin (Daily-Yousuf tablet) 1 tab PO DAILY SUPPLEMENT 03/11/22 [History Last Taken 03/11/22] tamsulosin 0.4 mg capsule (Flomax) 0.4 mg PO QHS PROSTATE 03/11/22 [History Last Taken 03/10/22] ascorbic acid (vitamin C) 500 mg tablet (Vitamin C) 500 mg PO BID 30 days #60 tabs 03/22/22 [Rx Last Taken Unknown] ferrous sulfate 325 mg (65 mg iron) tablet 325 mg PO BID 30 days #60 tabs 03/22/22 [Rx Last Taken Unknown] hydralazine 50 mg tablet 100 mg PO TID 30 days #180 tabs 03/22/22 [Rx Last Taken Unknown] hydrocodone-acetaminophen 5-325mg 5mg-325mg 1 tab PO Q6H PRN PRN Pain 3 days #12 TABLETS 04/10/22 [Rx Last Taken Unknown] magnesium hydroxide 400 mg/5 mL oral suspension (Milk of Magnesia) 30 ml PO DAILY PRN Constipation 04/10/22 [History Last Taken Unknown] mineral oil 118 ml DC DAILY PRN Constipation 04/10/22 [History Last Taken Unknown] pyridoxine (vitamin B6) 50 mg tablet 50 mg PO BID 04/10/22 [History Last Taken Unknown] lactulose 20 gram/30 mL oral solution 20 g (30 mL) PO BID #1,200 mL 06/15/22 [Rx Last Taken Unknown] insulin glargine 100 unit/mL subcutaneous cartridge 30 unit subcut QPM 07/28/22 [History Last Taken Unknown] metoclopramide HCl 5 mg tablet (Reglan) 5 mg PO Q6H PRN nausea and vomiting #20 tabs 09/14/22 [Rx Last Taken Unknown] Allergy/AdvReac Type Severity Reaction Status Date / Time metformin [From Glucophage] AdvReac Diarrhea Verified 09/30/22 15:13 Family History Mother Cancer Father Heart disease Hypertension Myocardial infarction Surgical History History of carpal tunnel release History of permanent cardiac pacemaker placement (03/05/19) Social History household members: none Smoking Status: Former smoker Smokeless tobacco user: other alcohol intake: never substance use type: does not use ROS ROS ED Constitutional Constitutional ED: Denies chills or fever(s) Eyes Eyes: Denies change in vision or discharge from eye(s) ENT ENT ED: Denies discharge from eye(s), rhinorrhea or sore throat Cardiovascular Cardiovascular: Denies chest pain or palpitations Respiratory/Chest Respiratory/Chest: Denies cough or dyspnea Gastrointestinal Gastrointestinal: Denies abdominal pain, nausea or vomiting Genitourinary Genitourinary ED: Reports urinary frequency; Denies difficulty urinating or dysuria Musculoskeletal Musculoskeletal: Denies back pain or extremity pain Integumentary Denies Abrasions or rash Neurologic Neurologic: Reports headache(s); Denies weakness Psychiatric Psychiatric: Denies anxiety or depression Endocrine Endocrinology: Reports polydipsia and polyuria Allergic/Immunologic Allergic/Immunologic ED: Denies lip swelling or urticaria EXAM Physical Exam Const Vital Signs: 09/30/22 15:57 09/30/22 17:12 09/30/22 18:07 Temperature 97.2 F L Temperature Source Temporal Pulse Rate 77 72 Respiratory Rate 18 21 H Respiratory Effort Normal Non-Labored Respiratory Pattern Normal Blood Pressure 165/80 H 195/85 H Blood Pressure Mean 108 121 Pulse Ox 97 98 Oxygen Delivery Method Room Air Room Air Room Air 09/30/22 20:17 Temperature Temperature Source Pulse Rate 71 Respiratory Rate 15 Respiratory Effort Respiratory Pattern Blood Pressure 215/87 H Blood Pressure Mean 129 Pulse Ox 98 Oxygen Delivery Method Room Air Positive well nourished and well developed General Appearance ED: well developed HEENT Reports normocephalic HEENT Narrative: 3 cm long superficial abrasion to the left islam. No active bleeding. No surrounding hematoma. Eyes PERRL and EOMs intact bilaterally Neck supple Chest Wall inspection of chest normal and palpation of chest normal Resp normal respiratory effort and clear to auscultation bilaterally Cardio regular rate and regular rhythm GI non-tender Auscultation: hypoactive bowel sounds Palpation: soft Extremity normal to inspection Neuro oriented x3 Neuro Narrative: No focal neurologic deficits. Sensorium / Orientation: alert Psych mental status grossly normal Skin Skin Narrative: Left islam abrasion as noted above. MDM MDM MDM Narrative Medical decision making narrative: Lab work obtained to evaluate for leukocytosis, anemia, electrolyte derangement. Urinalysis performed given his urinary frequency. CT scan of the head obtained given his head injury today. Lab Data Attestation: I reviewed the patient's lab results. Labs: Laboratory Results - last 24 hr 09/30/22 09/30/22 09/30/22 17:40 17:40 17:40 WBC 5.5 RBC 3.49 L Hgb 9.7 L Hct 28.7 L MCV 82.2 MCH 27.8 MCHC 33.8 RDW Std Deviation 38.6 RDW Coeff of Harry 13.0 Plt Count 249 MPV 9.6 Immature Gran % (Auto) 1.300 H Neut % (Auto) 56.1 Lymph % (Auto) 31.3 Cavalier % (Auto) 7.1 Eos % (Auto) 3.8 Baso % (Auto) 0.4 Absolute Neuts (auto) 3.1 Absolute Lymphs (auto) 1.72 Nucleated RBC % 0 Sodium 134 L Potassium 4.2 Chloride 103 Carbon Dioxide 25.0 Anion Gap 6 BUN 38 H Creatinine 2.30 H Estim Creat Clear Calc 31.39 Est GFR (MDRD) Af Amer 37 L Est GFR (MDRD) Non-Af 31 L BUN/Creatinine Ratio 16.5 Glucose 515 H* Calcium 8.9 Total Bilirubin 0.30 Direct Bilirubin 0.08 AST 15 ALT 23 Alkaline Phosphatase 151 H Total Protein 6.8 Albumin 3.0 L Globulin 3.8 Urine Color Urine Clarity Urine pH Ur Specific [place] Urine Protein Urine Glucose (UA) Urine Ketones Urine Occult Blood Urine Nitrite Urine Bilirubin Urine Urobilinogen Ur Leukocyte Esterase Urine RBC Urine WBC Ur Squamous Epith Cells Urine Bacteria Urine Mucus Acetone Level NEGATIVE 09/30/22 20:10 WBC RBC Hgb Hct MCV MCH MCHC RDW Std Deviation RDW Coeff of Harry Plt Count MPV Immature Gran % (Auto) Neut % (Auto) Lymph % (Auto) [place] % (Auto) Eos % (Auto) Baso % (Auto) Absolute Neuts (auto) Absolute Lymphs (auto) Nucleated RBC % Sodium Potassium Chloride Carbon Dioxide Anion Gap BUN Creatinine Estim Creat Clear Calc Est GFR (MDRD) Af Amer Est GFR (MDRD) Non-Af BUN/Creatinine Ratio Glucose Calcium Total Bilirubin Direct Bilirubin AST ALT Alkaline Phosphatase Total Protein Albumin Globulin Urine Color Straw Urine Clarity Clear Urine pH 6.5 Ur Specific [place] 1.010 Urine Protein 100 H Urine Glucose (UA) 1000 H Urine Ketones Negative Urine Occult Blood 25 H Urine Nitrite Negative Urine Bilirubin Negative Urine Urobilinogen Normal Ur Leukocyte Esterase Negative Urine RBC 0-5 SEEN Urine WBC 0-5 SEEN Ur Squamous Epith Cells 0-5 SEEN Urine Bacteria 0 SEEN Urine Mucus 0 SEEN Acetone Level Radiography Diagnostic Testing: Clinical Impression(s) from Imaging Studies Brain CT 09/30/22 17:11 IMPRESSION: Volume loss with chronic white matter changes. No acute intracranial findings. Electronically Signed: Ambrosio Bruce MD at 18:06 EST Reading Location ID and State: [facility] / [place] Tel , Service support , EKG Initial EKG: Attestation: I personally reviewed and interpreted this EKG as follows: Interpretation: Sinus Rhythm (Sinus rhythm at 72 bpm with occasional paced beats.) Treatment and Re-Evaluation Narrative: CBC reveals normal white count. Hemoglobin is 9.7. Chemistry studies reveal BUN of 38 and creatinine of 2.30. This is about his baseline. His glucose is elevated at 515. Urinalysis obtained and reveals glucose but no sign of infection. CT scan of the head reveals no acute findings. Patient has been given 2 L of IV fluid along with 12 units of subcu insulin. At this time his repeat blood sugar is 277. Patient states he is been having trouble getting his glucose meter to read the last couple days. I recommended he contact his primary care physician on Monday to see if they can help him get a new meter. We discussed the importance of keeping a journal to document this. Sister spoke with me outside of the room and states that she has spoken with the primary care physician about possible fdc or independent living, but the patient has been resistant thus far. He does have an aide that comes in but she was not available this week. I will ask social work to speak with them about any further services that may be available. Discharge Plan Triage Chief Complaint: Fall ED Provider: Santa Goldstein Dx/Rx/DC Orders Clinical Impression: Hyperglycemia, Fall, CHI (closed head injury) Instructions: ED Diabetic Hyperglycemia, ED Head Injury (Adult) Prescriptions: No Action lactulose 20 gram/30 mL solution 20 g PO BID Qty: 1200 3RF atorvastatin 80 MG tablet 80 mg PO DAILY metoprolol succinate 100 MG tablet extended release 24 hr 100 mg PO DAILY multivitamin [Daily-Yousuf] Tablet 1 tab PO DAILY tamsulosin [Flomax] 0.4 mg capsule 0.4 mg PO QHS hydralazine 50 mg Tablet 100 mg PO TID 30 Days Qty: 180 0RF ferrous sulfate 325 mg (65 mg iron) tablet 325 mg PO BID 30 Days Qty: 60 0RF ascorbic acid (vitamin C) [Vitamin C] 500 mg tablet 500 mg PO BID 30 Days Qty: 60 0RF mineral oil [Enema] Enema 118 ml DC DAILY PRN (Reason: Constipation) Rx Instructions: discard any unused portion magnesium hydroxide [Milk of Magnesia] 400 mg/5 mL Suspension 30 ml PO DAILY PRN (Reason: Constipation) pyridoxine (vitamin B6) 50 mg Tablet 50 mg PO BID hydrocodone-acetaminophen [hydrocodone-acetaminophen] 5-325 mg tablet 1 tab PO Q6H PRN PRN (Reason: Pain) 3 Days Qty: 12 0RF Lantus U-100 Insulin 100 unit/mL Cartridge 30 unit SUBCUT QPM metoclopramide HCl [Reglan] 5 mg tablet 5 mg PO Q6H PRN (Reason: nausea and vomiting) Qty: 20 0RF Primary Care Provider: Vera Lucas Referrals: Vera Lucas MD [Primary Care Provider] - 1-2 Weeks Disposition Disposition: Home, Self Care
--- NOTE | 2022-09-30 17:41 | EKG12_ITS ---
Test Reason : FELL Blood Pressure : / mmHG Vent. Rate : 072 BPM Atrial Rate : 000 BPM P-R Int : 000 ms QRS Dur : 088 ms QT Int : 402 ms P-R-T Axes : 000 -14 -23 degrees QTc Int : 440 ms Sinus rhythm Consider voltage criteria for LVH Nonspecific ST and T wave abnormality Confirmed by ANNALISA VILLA, NINI ([id number]), acquisitions editor ROCKY LO ([id number]) on 10/04/2022 9:03:32 AM Referred By: Jase Reinoso Confirmed By:NINI FANG MD
[2022-09-30] MEDS: 0.9% Normal Saline 1,000 ML 1000 ML IV (17:42)
[2022-09-30 17:58] LABS: Absolute Lymphocyte Count 1.72 X10^3/uL (0.83-4.51); Absolute Neutrophil Count 3.1 X10^3/uL (2.0-7.7); Basophil# 0.02 X10^3/uL; Basophil% 0.4 % (0-1); Eosinophil# 0.21 X10^3/uL; Eosinophils% 3.8 % (0-5); Hematocrit 28.7 % (40-54); Hemoglobin 9.7 g/dL (13.0-16.5); Lymphocyte # 1.72 X10^3/ul (0.83-4.51); Lymphocyte % 31.3 % (19-41); Mean Corp Hgb Conc 33.8 g/dL (32-36); Mean Corpuscular Hgb 27.8 pg (27.0-32.0); Mean Corpuscular Volume 82.2 fL (80-94); Mean Platelet Vol. 9.6 fl (6.2-12.0); Monocyte# 0.39 X10^3/uL; Monocyte% 7.1 % (0-10); NRBC Flagged by Analyzer 0 % (0-5); Neutrophil # 3.08 X10^3/uL (2.7-7.7); Neutrophil % 56.1 % (47-70); Platelet Count 249 K/mm3 (150-450); RBC Distribution Width SD 38.6 fl (35.1-43.9); Red Blood Count 3.49 M/mm3 (4.6-6.2); White Blood Count 5.5 K/mm3 (4.4-11.0)
[2022-09-30 18:07] VITALS: BP 195/85; PULSE 72; RESP 21; O2SAT 98
[2022-09-30 18:23] LABS: AST(SGOT) 15 U/L (15-37); Alanine Aminotransfer ALT/SGPT 23 U/L (16-61); Alkaline Phosphatase 151 U/L (45-117); Anion Gap 6 (5-15); BUN 38 mg/dL (7-18); BUN/Creat Ratio 16.5 RATIO (10-20); Bilirubin, Direct 0.08 mg/dL (0.00-0.30); Calcium,Total 8.9 mg/dL (8.5-10.1); Chloride 103 mmol/L (98-107); EST Glomerular Filtration Rate 31 mL/min (>60); Est Glom Filt Rate - Afr Amer 37 mL/min (>60); Estimated Creatinine Clearance 31.39 ml/min; Globulin 3.8 g/dL (2.2-4.2); Glucose 515 mg/dL (74-106); Potassium 4.2 mmol/L (3.5-5.1); Protein, Total 6.8 g/dL (6.4-8.2); Sodium Level 134 mmol/L (136-145)
[2022-09-30] MEDS: 0.9% Normal Saline 1,000 ML 999 ML IV (20:13)
[2022-09-30] MEDS: Insulin Lispro 100 UNIT/ML INSULN.PEN 12 UNIT SC (20:13)
[2022-09-30 20:17] VITALS: BP 215/87; PULSE 71; RESP 15; O2SAT 98
[2022-09-30 20:23] LABS: Bacteria 0 SEEN /hpf (None Seen); Mucous, Urine 0 SEEN /hpf (<or=2+)
[2022-09-30 20:26] LABS: Color, Urine Straw (Yellow); Glucose, Dipstick 1000 mg/dl (Normal); Ketone-Dipstick Negative (Negative); Leukocyte Esterase-Dipstick Negative /ul (Negative); Nitrite-Dipstick Negative (Negative); Occult Blood-Urine 25 /ul (Negative); Protein-Dipstick 100 mg/dl (Negative); Urine Bilirubin Dipstick Negative (Negative); Urine Clarity Clear (Clear); Urine Urobilinogen Normal (Normal); Urine pH 6.5 (5.0 - 8.0)
[2022-09-30 20:45] LABS: Red Blood Cells-Urine 0-5 SEEN /hpf (0-5); Squamous Epithelial Cells - UA 0-5 SEEN /hpf (0-5); White Blood Cells 0-5 SEEN /hpf (0-5)
[2022-09-30] MEDS: hydrALAZINE 20 MG/ML Vial 10 MG IV (20:55)
[2022-09-30 21:33] VITALS: BP 155/70; PULSE 77; RESP 21; O2SAT 98
[2022-09-30 21:36] LABS: Bedside Glucose 277 mg/dL (74-106)
== END 2022-09-30 21:46 | disposition home or self-care (01) ==
PROVIDERS: Emergency Provider Emergency Medicine; PCP Internal Medicine; Visit Provider Emergency Medicine
DX: S09.90XA Unspecified injury of head, initial encounter (principal); E11.65 Type 2 diabetes mellitus with hyperglycemia; R35.0 Frequency of micturition; I10 Essential (primary) hypertension; Z87.891 Personal history of nicotine dependence; E78.00 Pure hypercholesterolemia, unspecified; W19.XXXA Unspecified fall, initial encounter
CPT/HCPCS: 70450; 80048; 80076; 81001; 82009; 82962; 85025; 93005; 96361; 96374; 99284; J7030; A4216

== ENCOUNTER 2022-10-02 19:17 | Emergency (ER) | payer MEDICAID, SELFPAY ==
[2022-10-02 19:18] VITALS: BP 174/84; PULSE 73; RESP 16; TEMP 36.3; O2SAT 98; BMI 24.9
--- NOTE | 2022-10-02 19:52 | EX.ED.DYSGE1 ---
HPI History of Present Illness Chief Complaint: Hyperglycemia Narrative Narrative: 66-year-old male past medical history of hypertension, hyperlipidemia, insulin-dependent diabetes presents with elevated blood sugar this afternoon. His sister, who is his power of [place] attorney for medical care states that she got a call from his friend that his blood sugar was elevated at 547 around 4:00 in the afternoon, almost 4 hours ago. He denies any nausea or vomiting, no diarrhea, no abdominal pain, no fevers or chills. Admittedly, he states that he usually takes 2 to 4 units of insulin 3 times a day, and takes a long-acting insulin at night, 20 units. Last evening, he forgot to take his insulin. He had beans for dinner, and is concerned about his elevated blood sugars. [facility] Medical History Ambulates with cane Cardiology follow-up encounter Complete heart block (02/2019) COVID CVA (cerebral vascular accident) (02/2019) Diabetes Diabetes mellitus Dietary restriction DVT (deep venous thrombosis) Essential (primary) hypertension Former smoker High cholesterol History of echocardiogram History of edema History of renal disease History of stress test HLD (hyperlipidemia) Irregular heart beat Kidney disease Migraines Pacemaker Paroxysmal supraventricular tachycardia (06/2017) Sick sinus syndrome Sinus pause Stroke/cerebrovascular accident Syncope Tachyarrhythmia Type II diabetes mellitus, uncontrolled Wears glasses Home Medications atorvastatin 80 mg tablet 80 mg PO DAILY cholesterol 03/04/19 [History Last Taken 03/11/22] metoprolol succinate 100 mg tablet,extended release 24 hr 100 mg PO DAILY heart rate 04/25/19 [History Last Taken 03/11/22] multivitamin (Daily-Yousuf tablet) 1 tab PO DAILY SUPPLEMENT 03/11/22 [History Last Taken 03/11/22] tamsulosin 0.4 mg capsule (Flomax) 0.4 mg PO QHS PROSTATE 03/11/22 [History Last Taken 03/10/22] ascorbic acid (vitamin C) 500 mg tablet (Vitamin C) 500 mg PO BID 30 days #60 tabs 03/22/22 [Rx Last Taken Unknown] ferrous sulfate 325 mg (65 mg iron) tablet 325 mg PO BID 30 days #60 tabs 03/22/22 [Rx Last Taken Unknown] hydralazine 50 mg tablet 100 mg PO TID 30 days #180 tabs 03/22/22 [Rx Last Taken Unknown] hydrocodone-acetaminophen 5-325mg 5mg-325mg 1 tab PO Q6H PRN PRN Pain 3 days #12 TABLETS 04/10/22 [Rx Last Taken Unknown] magnesium hydroxide 400 mg/5 mL oral suspension (Milk of Magnesia) 30 ml PO DAILY PRN Constipation 04/10/22 [History Last Taken Unknown] mineral oil 118 ml CA DAILY PRN Constipation 04/10/22 [History Last Taken Unknown] pyridoxine (vitamin B6) 50 mg tablet 50 mg PO BID 04/10/22 [History Last Taken Unknown] lactulose 20 gram/30 mL oral solution 20 g (30 mL) PO BID #1,200 mL 06/15/22 [Rx Last Taken Unknown] insulin glargine 100 unit/mL subcutaneous cartridge 30 unit subcut QPM 07/28/22 [History Last Taken Unknown] metoclopramide HCl 5 mg tablet (Reglan) 5 mg PO Q6H PRN nausea and vomiting #20 tabs 09/14/22 [Rx Last Taken Unknown] Allergy/AdvReac Type Severity Reaction Status Date / Time metformin [From Glucophage] AdvReac Diarrhea Verified 10/02/22 19:20 Family History Mother Cancer Father Heart disease Hypertension Myocardial infarction Surgical History History of carpal tunnel release History of permanent cardiac pacemaker placement (03/05/19) Social History household members: none Smoking Status: Former smoker Smokeless tobacco user: other alcohol intake: never substance use type: does not use ROS ROS ED ROS Narrative Constitutional: No fever, no chills. Elevated blood sugars. HEENT: No sore throat. No neck pain. No loss of vision. No rhinorrhea. Cardiovascular: No chest pain. No palpitations. No pedal edema. Respiratory: No cough, no shortness of breath. Abdominal: No abdominal pain. No nausea. No vomiting. Genitourinary: No dysuria. No hematuria. Musculoskeletal: No myalgias. No arthralgias. Neurologic: No headaches. No dizziness. No lightheadedness. Skin: No rash. No change in color. Psychiatric: No depression. No anxiety. EXAM Physical Exam Narrative Exam Narrative: Afebrile. Vital signs noted. HEENT: Normocephalic. Atraumatic. PERRL, EOMI. Neck soft and supple. No point tenderness or step off. Cardiovascular: Regular rate and rhythm. No murmurs, rubs, or gallops appreciated. Respiratory: No tachypnea. Lungs clear to auscultation bilaterally. Gastrointestinal: Abdomen soft, nontender, with normoactive bowel sounds. No rebound or guarding. Neurological: Awake. Alert. Oriented. Nonfocal, nonlateralizing. Skin: No rash. Normal color. No pallor. Musculoskeletal: No pedal edema. Full range of motion extremities. Const Vital Signs: 10/02/22 19:18 10/02/22 20:09 10/02/22 23:29 Temperature 97.3 F L Temperature Source Temporal Pulse Rate 73 Respiratory Rate 16 Respiratory Effort Normal Respiratory Pattern Normal Blood Pressure 174/84 H Blood Pressure Mean 114 Pulse Ox 98 99 Oxygen Delivery Method Room Air Room Air MDM MDM MDM Narrative Medical decision making narrative: Given his reported elevated blood sugar, I think this is secondary to his not taking his medications correctly. There is been no recent change in his medications. In order to rule out diabetic ketoacidosis, patient will be bolused IV fluids 1 L of normal saline, and BGT along with CMP, acetone, and CBC will be obtained. I reviewed the patient's laboratory work. CBC demonstrates normal WBC count of 5.5, hemoglobin stable at 9.0, hematocrit 27.0. Platelet count normal at 220. Of most significance is his CMP which shows creatinine of 2.21 with BUN of 32, glucose elevated at 451 with a normal anion gap of 8. Serum ketones are negative. I do not feel that he is in diabetic ketoacidosis. Urinalysis is negative for infection and negative for ketones. He was administered IV fluids and 10 units of regular insulin. Repeat blood sugar is now 183. I feel he be discharged safely home with follow-up to his primary care provider. He is to call tomorrow. So as not to bottom out his sugar tonight because he lives alone, he was told to hold off on using his long acting insulin, and start again tomorrow with 2 units of insulin after eating. He will call his primary care physician. He was instructed to take his medication as previously directed started tomorrow morning. I feel he can be discharged safely home with follow-up. Return instructions were reviewed. Disposition is discharged home in stable condition. Lab Data Attestation: I reviewed the patient's lab results. Labs: Laboratory Results - last 24 hr 10/02/22 10/02/22 10/02/22 20:10 20:10 20:10 WBC 5.5 RBC 3.21 L Hgb 9.0 L Hct 27.0 L MCV 84.1 MCH 28.0 MCHC 33.3 RDW Std Deviation 39.4 RDW Coeff of Harry 13.0 Plt Count 220 MPV 9.4 Immature Gran % (Auto) 0.900 Neut % (Auto) 58.0 Lymph % (Auto) 28.4 [place] % (Auto) 8.1 Eos % (Auto) 4.2 Baso % (Auto) 0.4 Absolute Neuts (auto) 3.2 Absolute Lymphs (auto) 1.57 Nucleated RBC % 0 Sodium 136 Potassium 3.9 Chloride 105 Carbon Dioxide 23.0 Anion Gap 8 BUN 32 H Creatinine 2.21 H Estim Creat Clear Calc 33.77 Est GFR (MDRD) Af Amer 39 L Est GFR (MDRD) Non-Af 32 L BUN/Creatinine Ratio 14.5 Glucose 451 H* Calcium 8.4 L Total Bilirubin 0.30 AST 11 L ALT 21 Alkaline Phosphatase 126 H Total Protein 6.3 L Albumin 2.9 L Globulin 3.4 Albumin/Globulin Ratio 0.9 Urine Color Urine Clarity Urine pH Ur Specific [place] Urine Protein Urine Glucose (UA) Urine Ketones Urine Occult Blood Urine Nitrite Urine Bilirubin Urine Urobilinogen Ur Leukocyte Esterase Urine RBC Urine WBC Ur Squamous Epith Cells Urine Bacteria Urine Mucus Acetone Level NEGATIVE POC Glucose 10/02/22 10/02/22 22:16 23:27 WBC RBC Hgb Hct MCV MCH MCHC RDW Std Deviation RDW Coeff of Harry Plt Count MPV Immature Gran % (Auto) Neut % (Auto) Lymph % (Auto) [place] % (Auto) Eos % (Auto) Baso % (Auto) Absolute Neuts (auto) Absolute Lymphs (auto) Nucleated RBC % Sodium Potassium Chloride Carbon Dioxide Anion Gap BUN Creatinine Estim Creat Clear Calc Est GFR (MDRD) Af Amer Est GFR (MDRD) Non-Af BUN/Creatinine Ratio Glucose Calcium Total Bilirubin AST ALT Alkaline Phosphatase Total Protein Albumin Globulin Albumin/Globulin Ratio Urine Color Yellow Urine Clarity Clear Urine pH 6.0 Ur Specific [place] 1.015 Urine Protein 500 H Urine Glucose (UA) 1000 H Urine Ketones Negative Urine Occult Blood 25 H Urine Nitrite Negative Urine Bilirubin Negative Urine Urobilinogen Normal Ur Leukocyte Esterase Negative Urine RBC 0 SEEN Urine WBC 0-5 SEEN Ur Squamous Epith Cells 0-5 SEEN Urine Bacteria 0 SEEN Urine Mucus 0 SEEN Acetone Level POC Glucose 183 H Discharge Plan Triage Chief Complaint: Hyperglycemia ED Provider: Jase Reinoso Dx/Rx/DC Orders Clinical Impression: Hyperglycemia, Patient forgets to take medication Instructions: ED Diabetic Hyperglycemia Prescriptions: No Action lactulose 20 gram/30 mL solution 20 g PO BID Qty: 1200 3RF atorvastatin 80 MG tablet 80 mg PO DAILY metoprolol succinate 100 MG tablet extended release 24 hr 100 mg PO DAILY multivitamin [Daily-Yousuf] Tablet 1 tab PO DAILY tamsulosin [Flomax] 0.4 mg capsule 0.4 mg PO QHS hydralazine 50 mg Tablet 100 mg PO TID 30 Days Qty: 180 0RF ferrous sulfate 325 mg (65 mg iron) tablet 325 mg PO BID 30 Days Qty: 60 0RF ascorbic acid (vitamin C) [Vitamin C] 500 mg tablet 500 mg PO BID 30 Days Qty: 60 0RF mineral oil [Enema] Enema 118 ml [place] DAILY PRN (Reason: Constipation) Rx Instructions: discard any unused portion magnesium hydroxide [Milk of Magnesia] 400 mg/5 mL Suspension 30 ml PO DAILY PRN (Reason: Constipation) pyridoxine (vitamin B6) 50 mg Tablet 50 mg PO BID hydrocodone-acetaminophen [hydrocodone-acetaminophen] 5-325 mg tablet 1 tab PO Q6H PRN PRN (Reason: Pain) 3 Days Qty: 12 0RF Lantus U-100 Insulin 100 unit/mL Cartridge 30 unit SUBCUT QPM metoclopramide HCl [Reglan] 5 mg tablet 5 mg PO Q6H PRN (Reason: nausea and vomiting) Qty: 20 0RF Primary Care Provider: Vera Lucas Referrals: Vera Lucas MD [Primary Care Provider] - 1 Day Activity Restrictions/Additional Instructions: Remember to take your medications as previously directed. You may want to check your blood sugar or eat something prior to taking your long acting insulin tonight. You may be better off holding it until the morning, so as not to bottom out your sugars as it was only 180 prior to your discharge tonight. Disposition Disposition: Home, Self Care
[2022-10-02] MEDS: 0.9% Normal Saline 1,000 ML 999 ML IV ×2 (20:13→22:07)
[2022-10-02 20:20] LABS: Absolute Lymphocyte Count 1.57 X10^3/uL (0.83-4.51); Absolute Neutrophil Count 3.2 X10^3/uL (2.0-7.7); Basophil# 0.02 X10^3/uL; Basophil% 0.4 % (0-1); Eosinophil# 0.23 X10^3/uL; Eosinophils% 4.2 % (0-5); Lymphocyte # 1.57 X10^3/ul (0.83-4.51); Lymphocyte % 28.4 % (19-41); Mean Corp Hgb Conc 33.3 g/dL (32-36); Mean Corpuscular Volume 84.1 fL (80-94); Mean Platelet Vol. 9.4 fl (6.2-12.0); Monocyte# 0.45 X10^3/uL; Monocyte% 8.1 % (0-10); NRBC Flagged by Analyzer 0 % (0-5); Neutrophil # 3.21 X10^3/uL (2.7-7.7); Platelet Count 220 K/mm3 (150-450); RBC Distribution Width SD 39.4 fl (35.1-43.9); Red Blood Count 3.21 M/mm3 (4.6-6.2); White Blood Count 5.5 K/mm3 (4.4-11.0)
[2022-10-02 20:40] LABS: ALB/GLOB Ratio 0.9 RATIO (0.9-2.4); AST(SGOT) 11 U/L (15-37); Alanine Aminotransfer ALT/SGPT 21 U/L (16-61); Albumin, Serum 2.9 g/dL (3.2-5.0); Alkaline Phosphatase 126 U/L (45-117); Anion Gap 8 (5-15); BUN 32 mg/dL (7-18); BUN/Creat Ratio 14.5 RATIO (10-20); Calcium,Total 8.4 mg/dL (8.5-10.1); Chloride 105 mmol/L (98-107); Creatinine, Serum 2.21 mg/dL (0.70-1.30); EST Glomerular Filtration Rate 32 mL/min (>60); Est Glom Filt Rate - Afr Amer 39 mL/min (>60); Estimated Creatinine Clearance 33.77 ml/min; Globulin 3.4 g/dL (2.2-4.2); Glucose 451 mg/dL (74-106); Potassium 3.9 mmol/L (3.5-5.1); Protein, Total 6.3 g/dL (6.4-8.2); Sodium Level 136 mmol/L (136-145)
[2022-10-02 22:23] LABS: Bacteria 0 SEEN /hpf (None Seen); Mucous, Urine 0 SEEN /hpf (<or=2+); Red Blood Cells-Urine 0 SEEN /hpf (0-5)
[2022-10-02 22:25] LABS: Color, Urine Yellow (Yellow); Glucose, Dipstick 1000 mg/dl (Normal); Ketone-Dipstick Negative (Negative); Leukocyte Esterase-Dipstick Negative /ul (Negative); Nitrite-Dipstick Negative (Negative); Occult Blood-Urine 25 /ul (Negative); Protein-Dipstick 500 mg/dl (Negative); Specific Gravity, Urine 1.015 (1.002-1.030); Urine Bilirubin Dipstick Negative (Negative); Urine Clarity Clear (Clear); Urine Urobilinogen Normal (Normal)
[2022-10-02 22:35] LABS: Squamous Epithelial Cells - UA 0-5 SEEN /hpf (0-5); White Blood Cells 0-5 SEEN /hpf (0-5)
[2022-10-02 23:29] VITALS: O2SAT 99
[2022-10-02 23:45] LABS: Bedside Glucose 183 mg/dL (74-106)
--- NOTE | 2022-10-03 19:58 | CM.ED ---
MARIANELA called patient's POA/sister and she said that she was unable to talk. She requested that this repairer typewriter call her before 1:30 tomorrow 10/04/22. Terrie MOORE
--- NOTE | 2022-10-04 10:17 | CM.ED ---
MARIANELA called patient's sister and TRINI/ Rebecca Lerma and left voice mail message to return this writer producer's phone call. Terrie MOORE
--- NOTE | 2022-10-05 08:59 | CM.ED ---
SW called patient's sister and left voice mail requesting a call back. Per note by staff patient's sister had requested information on meds/possible placement. MARIANELA has spoken to sister on Monday and she reported to call back on Monday and MARIANELA had called back on Monday and this day to follow up with her regarding resources. Terrie MOORE
== END 2022-10-03 00:32 | disposition home or self-care (01) ==
PROVIDERS: Emergency Provider Emergency Medicine; PCP Internal Medicine; Referring Provider Emergency Medicine; Visit Provider Emergency Medicine
DX: E11.65 Type 2 diabetes mellitus with hyperglycemia (principal); Z79.4 Long term (current) use of insulin; I10 Essential (primary) hypertension; Z60.2 Problems related to living alone; Z87.891 Personal history of nicotine dependence; E78.00 Pure hypercholesterolemia, unspecified; Z91.14 Patient's other noncompliance with medication regimen
CPT/HCPCS: 80053; 81001; 82009; 82962; 85025; 96360; 96361; 99283; J7030; A4216

== ENCOUNTER 2023-03-04 17:36 | Emergency (ER) | payer MEDICAID, SELFPAY ==
[2023-03-04 17:37] VITALS: BP 172/73; PULSE 75; RESP 14; TEMP 36.3; O2SAT 99; BMI 24.9
--- NOTE | 2023-03-04 17:45 | EDS_ITS ---
HPI <FRANCESCO King - Last Filed: 03/04/23 19:16> History of Present Illness Chief Complaint: Fall Narrative Narrative: Patient 67-year-old male with history of CAD, TIA, anemia, diabetes who presents to the emergency department with complaints of right rib pain. Patient was try to get out of his bathtub on , slipped falling on his right side. Patient is unsure if he hit his head or not. Patient is on Brilinta. Patient's the pain was getting more severe, he is having difficulty moving around and is here for evaluation. He states when takes a deep breath, the right ribs does cause severe pain. PFSH <FRANCESCO King - Last Filed: 03/04/23 19:16> [facility] Medical History Ambulates with cane Cardiology follow-up encounter Complete heart block (02/2019) COVID CVA (cerebral vascular accident) (02/2019) Diabetes Diabetes mellitus Dietary restriction DVT (deep venous thrombosis) Essential (primary) hypertension Former smoker High cholesterol History of echocardiogram History of edema History of renal disease History of stress test HLD (hyperlipidemia) Irregular heart beat Kidney disease Migraines Pacemaker Paroxysmal supraventricular tachycardia (06/2017) Sick sinus syndrome Sinus pause Stroke/cerebrovascular accident Syncope Tachyarrhythmia Type II diabetes mellitus, uncontrolled Wears glasses Home Medications atorvastatin 80 mg tablet 80 mg PO DAILY cholesterol 03/04/19 [History Last Taken 03/11/22] metoprolol succinate 100 mg tablet,extended release 24 hr 100 mg PO DAILY heart rate 04/25/19 [History Last Taken 03/11/22] multivitamin (Daily-Yousuf tablet) 1 tab PO DAILY SUPPLEMENT 03/11/22 [History Last Taken 03/11/22] tamsulosin 0.4 mg capsule (Flomax) 0.4 mg PO QHS PROSTATE 03/11/22 [History Last Taken 03/10/22] ascorbic acid (vitamin C) 500 mg tablet (Vitamin C) 500 mg PO BID 30 days #60 tabs 03/22/22 [Rx Last Taken Unknown] ferrous sulfate 325 mg (65 mg iron) tablet 325 mg PO BID 30 days #60 tabs 03/22/22 [Rx Last Taken Unknown] hydralazine 50 mg tablet 100 mg (2 x 50 mg) PO TID 30 days #180 tabs 03/22/22 [Rx Last Taken Unknown] hydrocodone-acetaminophen 5-325mg 5mg-325mg 1 tab PO Q6H PRN PRN Pain 3 days #12 TABLETS 04/10/22 [Rx Last Taken Unknown] magnesium hydroxide 400 mg/5 mL oral suspension (Milk of Magnesia) 30 ml PO DAILY PRN Constipation 04/10/22 [History Last Taken Unknown] mineral oil 118 ml NE DAILY PRN Constipation 04/10/22 [History Last Taken Unknown] pyridoxine (vitamin B6) 50 mg tablet 50 mg PO BID 04/10/22 [History Last Taken Unknown] lactulose 20 gram/30 mL oral solution 20 g (30 mL) PO BID #1,200 mL 06/15/22 [Rx Last Taken Unknown] insulin glargine 100 unit/mL subcutaneous cartridge 30 unit subcut QPM 07/28/22 [History Last Taken Unknown] metoclopramide HCl 5 mg tablet (Reglan) 5 mg PO Q6H PRN nausea and vomiting #20 tabs 09/14/22 [Rx Last Taken Unknown] hydrocodone-acetaminophen 5-325mg 5mg-325mg 0.5 tab PO Q4H PRN PRN Pain 3 days #8 tabs 03/04/23 [Rx Last Taken Unknown] Allergy/AdvReac Type Severity Reaction Status Date / Time metformin [From Glucophage] AdvReac Diarrhea Verified 03/04/23 17:37 Family History Mother Cancer Father Heart disease Hypertension Myocardial infarction Surgical History History of carpal tunnel release History of permanent cardiac pacemaker placement (03/05/19) Social History household members: none Smoking Status: Former smoker Smokeless tobacco user: other alcohol intake: never substance use type: does not use ROS <FRANCESCO King - Last Filed: 03/04/23 19:16> ROS ED ROS Narrative Constitutional: Negative for fever, chills, weight loss, weakness Eyes: Negative for vision loss, vision change, double vision ENT: Negative for any sore throat, ear pain, congestion Cardiovascular: Negative for any tightness, palpitations. Positive for chest pain, right rib pain Respiratory: Negative for any cough, sputum production, hemoptysis, dyspnea, dyspnea on exertion, orthopnea Gastrointestinal: Negative for any abdominal pain, nausea, vomiting, diarrhea, constipation, blood in stool, blood in vomit : Negative for any urinary frequency, dysuria, retention, blood in urine Muscle skeletal: Negative for any muscle joint pain, stiffness, myalgias, arthralgias, neck pain, back pain Neurological: Negative for any headache, syncope, numbness or tingling, dizziness Skin: Negative for any rashes, lumps, itching, abrasions, lacerations Psychiatric: Negative for any depression, anxiety, stress, suicidal ideation, homicidal ideation Hematologic: Negative for any easy bruising, excessive bruising, easy bleeding Allergies: Negative for any eczema, hives, rash EXAM <FRANCESCO King - Last Filed: 03/04/23 19:16> Physical Exam Narrative Exam Narrative: Vital signs reviewed. HEET: Head normocephalic atraumatic, TMs clear bilaterally. Posterior pharynx is clear, moist mucous membranes. Nares clear bilaterally. Pupils are equal round reactive to light. Negative for any hemotympanum, septal hematoma. Neck: Supple with no lymphadenopathy or tenderness. No signs of meningismus, negative jolt sign. Cardiac: Regular rate and rhythm no murmurs gallops or rubs, equal peripheral pulses bilaterally. Respiratory: Lungs clear to auscultation bilaterally. Patient does have some ecchymosis to the lateral right ribs. There is no crepitus felt. I did hear equal breath sounds. Patient has significant pain with deep inspiration. No midline spinal tenderness. Abdomen: Soft, nontender, nondistended. No abdominal bruit or pulsatile masses. No hepatosplenomegaly Extremities: No peripheral edema, no signs of gross trauma or deformity. Active full range of motion of all extremities. Neuro: Cranial nerves II through XII intact, no focal neurological deficits. Skin: Clean dry and intact with no rash, purpura, petechiae, vesicles or pustules. Backs/flank: No CVA tenderness, no midline spinal tenderness, no deformity. Psych: Normal mood and affect. No SI, HI or acute psychosis. Const Vital Signs: 03/04/23 17:37 07/29/23 17:40 Temperature 97.3 F L Temperature Source Temporal Pulse Rate 75 Respiratory Rate 14 Respiratory Effort Normal Respiratory Depth Normal Respiratory Pattern Normal Blood Pressure 172/73 H Blood Pressure Mean 106 Pulse Ox 99 Oxygen Delivery Method Room Air Room Air <Dr. Robin Lima DO - Last Filed: 03/05/23 00:02> Physical Exam Const Vital Signs: 03/04/23 17:37 03/04/23 17:40 Temperature 97.3 F L Temperature Source Temporal Pulse Rate 75 Respiratory Rate 14 Respiratory Effort Normal Respiratory Depth Normal Respiratory Pattern Normal Blood Pressure 172/73 H Blood Pressure Mean 106 Pulse Ox 99 Oxygen Delivery Method Room Air Room Air MDM <FRANCESCO Knig - Last Filed: 03/04/23 19:16> MDM Radiography Diagnostic Testing: Clinical Impression(s) from Imaging Studies Chest CT 03/04/23 17:46 IMPRESSION: Negative CT chest without contrast. No finding of rib fracture. Electronically Signed: Travis Ingram MD at 18:59 EDT , Brain CT 03/04/23 17:48 IMPRESSION: No acute abnormal intracranial finding. Electronically Signed: Travis Ingram MD at 18:48 EDT , Treatment and Re-Evaluation :: Patient appears to be in mild discomfort secondary to right rib pain. Patient presents to the emergency part with right rib pain after a fall that occurred 2 days ago. Concerning for the patient being on Brilinta, head injury, patient was seen a CT scan of the brain. Patient will receive a CT scan the chest concerning for any pneumothorax, hemothorax, right rib fracture. He was given Percocet here. Patient on reevaluation is feeling much better. Patient CT scan of the brain showed no acute abnormal finding. Patient CT scan of the chest showed no rib fracture, normal lungs. At this time, patient be diagnosed with a fall, closed head injury, right rib contusion. He was given an incentive spirometer, he will take [id number] Tylenol, ibuprofen for his rib pain. He is instructed to follow-up, and to return here for any worsening symptoms. He was made aware how important incentive spirometer is, because this prevents pneumonia. All questions are answered stable for discharge <Dr. Robin Lima, DO - Last Filed: 03/05/23 00:02> [facility] Narrative Medical decision making narrative: I, Dr Lima, have reviewed the above progress note and course of action in the ER; agree with the above. I have personally seen and evaluated this patient, gone over history and physical, and discussed disposition and treatment plan with the patient. Patient will be using Tylenol, Motrin, and was given a prescription for pain medication as well. Patient understands not to use pain medication with Tylenol so that he does not actually take too much Tylenol together. Patient will use ice, incentive spirometer. Patient will follow-up with PCP. Radiography Diagnostic Testing: Clinical Impression(s) from Imaging Studies Chest CT 03/04/23 17:46 IMPRESSION: Negative CT chest without contrast. No finding of rib fracture. Electronically Signed: Travis Ingram MD at 18:59 EDT , Brain CT 03/04/23 17:48 IMPRESSION: No acute abnormal intracranial finding. Electronically Signed: Travis Ingram MD at 18:48 EDT , Discharge Plan Triage Chief Complaint: Fall ED Midlevel Provider: Travis Malave ED Provider: Robin Lima Dx/Rx/DC Orders Clinical Impression: Rib pain on right side, Head injury, Fall Instructions: ED Head Injury (Adult), ED Bruise, Rib Prescriptions: New hydrocodone-acetaminophen 5-325 mg tablet 0.5 tab PO Q4H PRN PRN (Reason: Pain) 3 Days Qty: 8 0RF Rx Instructions: May take 1 full tab if pain is severe No Action lactulose 20 gram/30 mL solution 20 g PO BID Qty: 1200 3RF atorvastatin 80 MG tablet 80 mg PO DAILY metoprolol succinate 100 MG tablet extended release 24 hr 100 mg PO DAILY multivitamin [Daily-Yousuf] Tablet 1 tab PO DAILY tamsulosin [Flomax] 0.4 mg capsule 0.4 mg PO QHS hydralazine 50 mg Tablet 100 mg PO TID 30 Days Qty: 180 0RF ferrous sulfate 325 mg (65 mg iron) tablet 325 mg PO BID 30 Days Qty: 60 0RF ascorbic acid (vitamin C) [Vitamin C] 500 mg tablet 500 mg PO BID 30 Days Qty: 60 0RF mineral oil [Enema] Enema 118 ml NE DAILY PRN (Reason: Constipation) Rx Instructions: discard any unused portion magnesium hydroxide [Milk of Magnesia] 400 mg/5 mL Suspension 30 ml PO DAILY PRN (Reason: Constipation) pyridoxine (vitamin B6) 50 mg Tablet 50 mg PO BID hydrocodone-acetaminophen [hydrocodone-acetaminophen] 5-325 mg tablet 1 tab PO Q6H PRN PRN (Reason: Pain) 3 Days Qty: 12 0RF Lantus U-100 Insulin 100 unit/mL Cartridge 30 unit SUBCUT QPM metoclopramide HCl [Reglan] 5 mg tablet 5 mg PO Q6H PRN (Reason: nausea and vomiting) Qty: 20 0RF Primary Care Provider: Vera Lucas Referrals: Vera Lucas MD [Primary Care Provider] - Activity Restrictions/Additional Instructions: Please use the incentive spirometer 8-10 times every hour while awake. This helps prevent pneumonia. Use ibuprofen and Tylenol. Disposition Disposition: Home, Self Care Discharge Date/Time: 03/04/23 19:30
--- NOTE | 2023-03-04 17:46 | CT_ITS ---
INDICATION: Right rib injury LEFT EXAMINATION: CT CHEST WITHOUT CONTRAST - CT Chest W/O Contrast Injection TECHNIQUE: Helically acquired images were obtained of the chest. A radiation dose optimization technique was used for this scan. IV Contrast dosage and agent: None. RADIATION DOSAGE (If Supplied By Facility): CTDIvol = ( 16.95 ) mGy, DLP = ( 787.84 ) mGycm COMPARISON: None FINDINGS: LUNGS, PLEURA AND LARGE AIRWAYS: No masses, consolidation, or edema. No pleural effusion or thickening. No pneumothorax. THYROID: No thyroid lesions. HEART AND PERICARDIUM: Heart size is normal. No pericardial effusion. CORONARY ARTERIES: Coronary artery calcification is seen. VESSELS: Thoracic aorta is not dilated. MEDIASTINUM AND HERMINIA: No mediastinal or hilar adenopathy. Esophagus is unremarkable. No hiatal hernia. UPPER ABDOMEN: Cholelithiasis. BONES: No displaced rib fracture. CT/Chest without Contrast IMPRESSION: Negative CT chest without contrast. No finding of rib fracture. Electronically Signed: Travis Ingram MD at 18:59 EDT ,
--- NOTE | 2023-03-04 17:48 | CT_ITS ---
INDICATION: Fall EXAMINATION: CT BRAIN - CT Head or Brain W/O Contrast Injection TECHNIQUE: Multiple axial images were obtained of the head without intravenous contrast. A radiation dose optimization technique was used for this scan. IV Contrast dosage and agent: None. RADIATION DOSAGE (If Supplied By Facility): CTDIvol = ( 44.99 ) mGy, DLP = ( 846.73 ) mGycm COMPARISON: 04/10/2022 FINDINGS: BRAIN PARENCHYMA: No intra- or extra-axial hemorrhage. No evidence of acute infarct. No intracranial mass or mass effect. There is preservation of the chery/white matter interface. Posterior fossa structures are unremarkable. CSF SPACES: Ex vacuo ventricular dilation is proportionate to global cerebral volume loss. Basal cisterns are patent. CALVARIUM, SKULL BASE, PARANASAL SINUSES AND MASTOID AIR CELLS: Clear. Small leftward frontal bone lytic lesion redemonstrated, probably benign. ORBITS: Bilateral ocular lens replacements. Both globes, extraocular muscles, optic nerves and retrobulbar fat appear otherwise unremarkable. ASPECTS Score for Acute Strokes: 10 CT/Brain/Head without Contrast IMPRESSION: No acute abnormal intracranial finding. Electronically Signed: Travis Ingram MD at 18:48 EDT ,
[2023-03-04] MEDS: Oxycodone/Apap 5/325 Tablet PO (18:30)
== END 2023-03-04 19:30 | disposition home or self-care (01) ==
PROVIDERS: Emergency Provider Emergency Medicine; PCP Internal Medicine; Visit Provider Emergency Medicine
DX: R07.81 Pleurodynia (principal); E11.9 Type 2 diabetes mellitus without complications; Z79.4 Long term (current) use of insulin; S09.90XA Unspecified injury of head, initial encounter; W01.10XA Fall on same level from slipping, tripping and stumbling with subsequent striking against unspecified object, initial encounter; Y93.E1 Activity, personal bathing and showering; Y92.002 Bathroom of unspecified non-institutional (private) residence as the place of occurrence of the external cause; I25.10 Atherosclerotic heart disease of native coronary artery without angina pectoris; E78.00 Pure hypercholesterolemia, unspecified; I10 Essential (primary) hypertension; Z87.891 Personal history of nicotine dependence; Z79.899 Other long term (current) drug therapy; Z86.73 Personal history of transient ischemic attack (TIA), and cerebral infarction without residual deficits
CPT/HCPCS: 70450; 71250; 99283

== ENCOUNTER → 2023-03-14 | Outpatient (CLI) | payer MEDICAID, SELFPAY ==
[2023-03-14 12:07] LABS: Absolute Lymphocyte Count 1.56 X10^3/uL (0.83-4.51); Basophil# 0.02 X10^3/uL; Basophil% 0.3 % (0-1); Eosinophil# 0.14 X10^3/uL; Eosinophils% 1.9 % (0-5); Hematocrit 26.1 % (40-54); Hemoglobin 8.9 g/dL (13.0-16.5); Lymphocyte # 1.56 X10^3/ul (0.83-4.51); Lymphocyte % 21.5 % (19-41); Mean Corp Hgb Conc 34.1 g/dL (32-36); Mean Corpuscular Hgb 28.8 pg (27.0-32.0); Mean Corpuscular Volume 84.5 fL (80-94); Mean Platelet Vol. 9.2 fl (6.2-12.0); Monocyte# 0.51 X10^3/uL; NRBC Flagged by Analyzer 0 % (0-5); Neutrophil # 4.98 X10^3/uL (2.7-7.7); Neutrophil % 68.7 % (47-70); Platelet Count 230 K/mm3 (150-450); RBC Distribution Width CV 13.2 % (11.6-14.6); RBC Distribution Width SD 40.6 fl (35.1-43.9); RET-HE 31.6 pg (30-35); Red Blood Count 3.09 M/mm3 (4.6-6.2); Reticulocyte Count 1.74 % (0.5-1.5); White Blood Count 7.3 K/mm3 (4.4-11.0)
[2023-03-14 13:02] LABS: Ferritin 128 ng/mL (26-388); Iron 50 ug/dL (65-175); Iron Binding Capacity,Total 210 ug/dL (250-450); LDH 202 U/L (87-241)
[2023-03-15 15:08] LABS: Albumin 3.1 g/dL (2.9-4.4); Alpha-1-Globulins 0.2 g/dL (0.0-0.4); Alpha-2-Globulins 0.8 g/dL (0.4-1.0); Gamma Globulin 0.6 g/dL (0.4-1.8); Haptoglobin 154 mg/dL (32-363); Immunoglobulin A 176 mg/dL (61-437); Immunoglobulin G 680 mg/dL (603-1613); Immunoglobulin M 41 mg/dL (20-172); PROEL- TOTAL PROTEIN 5.6 g/dL (6.0-8.5)
== END | disposition home or self-care (01) ==
LOC: LAB 11:27
PROVIDERS: PCP Internal Medicine; Referring Provider Internal Medicine Gastroenterology; Visit Provider Internal Medicine Gastroenterology
DX: D64.9 Anemia, unspecified (principal)
CPT/HCPCS: 36415; 82728; 82784; 83010; 83540; 83550; 83615; 84165; 85025; 85045; 86334

== ENCOUNTER → 2023-04-11 | Outpatient (CLI) | payer MEDICAID, SELFPAY ==
[2023-04-11 11:48] LABS: Protein, Urine (Random) 357.2 mg/dL (<11.9); Protein:Creat Ratio 4139 mg/g CRE (0-200)
== END | disposition home or self-care (01) ==
LOC: LABSPEC 11:06
PROVIDERS: PCP Internal Medicine; Visit Provider Internal Medicine Nephrology
DX: N18.4 Chronic kidney disease, stage 4 (severe) (principal)
CPT/HCPCS: 82570; 84156

== ENCOUNTER → 2023-05-08 | Outpatient (CLI) | payer MEDICAID, SELFPAY ==
--- NOTE | 2023-05-08 14:07 | US_ITS ---
STUDY: RENAL ULTRASOUND - COMPLETE REASON FOR EXAM: Male, 67 years old. CKD STAGE 4 TECHNIQUE: Ultrasound evaluation of the kidneys was performed with real-time and static brown-scale imaging. COMPARISON: Previous ultrasound 04/03/2021, previous CT scan 01/12/2018. FINDINGS: RIGHT KIDNEY: Normal location of the right kidney, which is normal in size. The right kidney measures 10.9 x 5.4 x 5.9 cm. Renal parenchyma is echogenic consistent with chronic medical renal disease. Renal cortex measures 1.9 cm. There is no right renal mass or cyst. There are no right renal calculi. There is no right hydronephrosis. DISTAL RIGHT URETER: There is non-visualization of the distal right ureter. There is no demonstrated right ureterovesical junction calculus. There is no demonstrated right ureteral jet. LEFT KIDNEY: Normal location of the left kidney, which is normal in size. The left kidney measures 10.3 x 3.0 x 5.3 cm. Renal parenchyma is echogenic consistent with chronic medical renal disease. Renal cortex measures 2.3 cm. There is a 1.6 cm left renal cyst. There is a 1 cm probable nonobstructing lower pole stone. There are no left renal calculi. There is no left hydronephrosis. DISTAL LEFT URETER: There is non-visualization of the distal left ureter. There is no demonstrated left ureterovesical junction calculus. There is a visualized left ureteral jet. BLADDER: The distended urinary bladder has a volume of 243 ml. There is a normal wall thickness of the distended urinary bladder. There is no demonstrated mass within the urinary bladder. There are no demonstrated bladder calculi. US/Kidney and Bladder IMPRESSION: Bilateral echogenic kidneys suspicious for chronic medical renal disease. No acute abnormality. No hydronephrosis. Probable nonobstructing stone of the lower pole of the left kidney. Electronically Signed: Morris Teague MD at 23:01 EDT ,
--- NOTE | 2023-05-08 14:59 | CDU_ITS ---
Reason For Study: Bruit Rt. Velocities/BP Lt. Velocities/BP Prox CCA 69/8 cm/sec. Prox CCA 78/11 cm/sec. Mid CCA 68/5 cm/sec. Mid CCA 60/13 cm/sec. Dist CCA 51/9 cm/sec. Dist CCA 71/8 cm/sec. Prox ICA 78/20 cm/sec. Prox ICA 86/17 cm/sec. Mid ICA 61/20 cm/sec. Mid ICA 73/15 cm/sec. Dist ICA 120/23 cm/sec. Dist ICA 70/16 cm/sec. Rt. ICA/CCA = 1.8. Lt. ICA/CCA = 1.4. Prox ECA 70/5 cm/sec. Prox ECA 74/4 cm/sec. Rt. Vert. 60/11 cm/sec. Lt. Vert. 50/8 cm/sec. Right Extracranial There is heterogeneous, irregular atherosclerotic plaque noted in the right common carotid artery. There is heterogeneous, irregular atherosclerotic plaque noted in the right internal carotid artery. There is heterogeneous, irregular atherosclerotic plaque noted in the right external carotid artery. Antegrade flow is noted in the right vertebral artery. Left Extracranial There is heterogeneous, irregular atherosclerotic plaque noted in the left common carotid artery. There is heterogeneous, irregular atherosclerotic plaque noted in the left internal carotid artery. There is no significant atherosclerotic plaque noted in the left external carotid artery. Antegrade flow is noted in the left vertebral artery. Procedure Carotid Duplex 99262. This is a Carotid Duplex examination using B-mode, color flow and specral Doppler. Exam performed in department. VL/Carotid Duplex Ultrasound Interpretation Summary Mild (<50%) stenosis right extracranial internal carotid. Mild (<50%) stenosis left extracranial internal carotid. Patent and antegrade vertebrals bilaterally. Ordering Physician: Anastasia Stark Referring Physician: Vera Lucas Performed By: Toya Musa, KING, RVT
== END | disposition home or self-care (01) ==
PROVIDERS: PCP Internal Medicine; Referring Provider Pharmacist Pharmacist Clinician (PhC)/ Clinical Pharmacy Specialist; Visit Provider Internal Medicine Nephrology
DX: R09.89 Other specified symptoms and signs involving the circulatory and respiratory systems (principal)
CPT/HCPCS: 76770; 93880

== ENCOUNTER 2023-06-22 10:08 | Day surgery (SDC) | payer MEDICAID, SELFPAY ==
[2023-06-22] VITALS (7 sets, daily range): BP systolic 147–181; BP diastolic 54–73; PULSE 60–65; RESP 16–18; TEMP 36.1–36.6; O2SAT 98–100; BMI 22.8
--- NOTE | 2023-06-22 | IMM_PTH ---
PATIENT: LOU JULIEN LOC: EN U#:[id number] AGE/SX: 67/M ROOM: RE06/22/[address]: Dr. Wilton Javier DO : 1955 BED: DIS: 06/22/2023 SPEC #: [id number] RECD: 06/26/23 15:54 STATUS: ROSALEE REQ #: [id number] CASSANDRA: 06/22/23 00:[address]: Wilton Javier DEPT: IMMUNOHISTOCHEMISTRY RECD BY: Marry Hannah ENTERED: 06/26/23 15:54 SP TYPE: IMMUNO OTHR DR: Dr. Vera Lucas MD Tissues: B - Esophagus, NOS Procedures: P53 (initial) KI-67 (add) MOC-31 (add) PHYSICIAN & INSTITUTION [place] [id number] SPECIMEN INFORMATION: Tissue Source: B - Distal esophagus Clinical Info: Anemia, constipation Specimen Number: [id number] CPT code: 03470, 13249 x2 METHODOLOGY: Deparaffinized sections of prefer/formalin-fixed tissue or PAP/DQ stained slides are incubated with monoclonal/polyclonal antibodies/oligonucleotide probes. Localization is made via biotin free immunoperoxidase method. Appropriate controls are performed and reacted as expected. Results on target cell population are indicated in the following table: RESULTS: ANTIBODY / CLONE RESULT Block B P53 (DO-7) positive, wild type pattern MOC-31 (4561) positive Ki-67 (30-9) positive, low These tests were developed and their performance characteristics determined by [facility]. They may not have been cleared or approved by the U.S. Food and Drug Administration. The FDA has determined that such clearance or approval is not necessary. The above immunohistochemical/dualISH markers are ordered and reviewed by the Pathologist. INTERPRETATION: B. Distal esophagus, biopsy: No evidence of dysplasia. AM:ruben 06/27/2023
[2023-06-22] MEDS: Lactated Ringers 1,000 ML 15 ML IV (10:49)
--- NOTE | 2023-06-22 11:27 | NURSING ---
bs 137
--- NOTE | 2023-06-22 11:28 | HP.PCM_ITS ---
History and Physical Date of Admission: 06/22/23 67 M who presents to the office today for follow up. *BGI established 06.15.22 for management of constipation with one spontaneous VM every 1-2 weeks with incomplete evacuation without pain or bloating.?Start lactulose? ? [facility] ED 09.14.22 with N/V and hyperglycemia with BS of 600 the day prior, but has not been taking Victoza as he thought it was . Glucose H531. Treated with fluids and glucose correction. Discharged with Reglan for nausea management.?US RUQ .03.29?hepatic measurement 16.8cm with normal echogenicity; diffuse pancreatic atrophy with normal echogenicity.? ? Pt reports no changes since last visit. States he takes ferrous sulfate once a day for his anemia. Has not gotten labs drawn. Denies dizziness or weakness. SOB on exertion. Still has constipation and LLQ pain that is relieved by BM. Has 1 incomplete BM every other day. 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 Does not remember that we sent it in for him. Does not take anything OTC for bowels. Denied blood or dark colored stool. Also has not established with nephrology for chronic CKD. ROS Const Constitutional: Positive for headache(s); No fatigue ENT ENT: Positive for headache(s); No difficulty swallowing Gastro GI: No abdominal pain, belching, bloating, change in bowel habits, change in stool character, coffee ground emesis, constipation, cramping, diarrhea, heartburn, difficulty swallowing, feeling full early, excessive flatus, incontinent of stools, Vomiting blood/hematemesis, Blood in stool, loose stools, Black,tarry stools, nausea/dyspepsia, pain with swallowing, vomiting or other Musc Musculoskeletal: Positive for leg pain at night; No joint pain Skin Skin: No yellowing of the eye or itchy eyes Neuro Neurology: Positive for headache(s) Psych Psychiatric: No anxiety and No depression Endo Endocrine: No fatigue Aller/Imm Allergy/Immunologic: No itchy eyes Calderon/Lymp Hematologic/Lymphatic: No easy bleeding or easy bruising Exam Const General: cooperative and comfortable Nutritional Appearance: average body habitus and well nourished [facility] Head: normal to inspection Ears: hearing grossly normal bilaterally Nose: external nose normal Face and sinus: normal facial exam Mouth: oral mucosae normal Throat: posterior oropharynx normal Eyes General: appearance normal, both eyes and all related structures Neck Neck: normal visual inspection Chest Chest palpation & inspection: normal inspection of the chest and normal palpation of entire chest wall Resp Effort & Inspection: normal respiratory effort Auscultation: Bilateral: Clear to Auscultation Cardio Palpation: normal PMI Rate: regular rate Rhythm: regular rhythm GI Inspection: normal to inspection Auscultation: normal bowel sounds Percussion: normal to percussion Palpation: no hepatosplenomegaly Skin General: no rashes or lesions noted Neuro General: patient alert Extrem General: normal to inspection Psych Affect: normal affect Quality Reporting Tobacco Screening ([facility] 138) Smoking Status: Former smoker Assessment and Plan Assessment and Plan (1) Anemia: Status: Chronic Qualifiers: Anemia type: iron deficiency Plan: Iron deficiency anemia from an unknown cause. 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 We will perform a capsule endoscopy to see if he has any signs of peptic ulcer disease, angiodysplasia secondary to chronic kidney disease, telangiectasia. He may also need to be started on iron therapy. Iron studies including CBC, reticulocyte count, LDH, haptoglobin, ferritin, TIBC, saturation. (2) Constipation: Status: Chronic Qualifiers: Constipation type: slow transit constipation Qualified Code(s): K59.01 - Slow transit constipation Plan: For his constipation lactulose therapy. I explained to him that Lactulose may cause his blood sugar to increase. He says that he had egd and colonoscopy in the past.. I have examined the patient and the H&P has been reviewed. There are no clinical changes since date of exam.
[2023-06-22 11:43] LABS: Bedside Glucose 61 mg/dL (74-106)
[2023-06-22 11:43] LABS: Bedside Glucose 137 mg/dL (74-106)
--- NOTE | 2023-06-22 11:45 | COLBX_PTH ---
PATIENT: LOU JULIEN LOC: [facility] U#:[id number] AGE/SX: 67/M ROOM: RE06/22/[address]: Dr. Wilton Javier DO : 1955 BED: DIS: 06/22/2023 SPEC #: [id number] RECD: 06/22/23 13:45 STATUS: ROSALEE ROBINA #: [id number] CASSANDRA: 06/22/23 11:[address]: Wilton Javier DEPT: SURGICAL PATHOLOGY RECD BY: Malia Ferrara ENTERED: 06/23/23 09:24 SP TYPE: COLON BX OTHR DR: Dr. Vera Lucas MD Tissues: A - Duodenum, NOS B - Esophagus, NOS C - Transverse colon D - Sigmoid colon biopsy E - Sigmoid colon biopsy Procedures: Special Stain Group II Surgery Specimen Level IV Alcian Blue/PAS (control) HEADER OPERATION: Colonoscopy, EGD with polypectomy and biopsy PRE-OP DIAGNOSIS: Anemia and constipation TISSUE SUBMITTED: A - Duodenum bulb biopsy, B - Distal esophagus biopsy, C - Transverse colon polyp, D - Sigmoid polyp x2, E - Sigmoid polyp x1 MICROSCOPIC DIAGNOSIS A. Duodenal bulb, biopsy: Focal acute duodenitis. Gastric metaplasia with associated chronic inflammation. See comment. B. Distal esophagus, biopsy: Gastroesophageal junctional mucosa with mild chronic inflammation. 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 No evidence of dysplasia. See comment. C. Transverse colon polyp, biopsy: Fragments of tubular adenoma. D. Sigmoid colon polyp, biopsy: Fragments of tubular adenoma. E. Sigmoid colon polyp, biopsy: Tubular adenoma with focal high-grade dysplasia. See comment. Note: The high-grade dysplasia measures approximately 4.5 mm in greatest dimension and is present at the luminal surface. AM:ruben 06/26/2023 COMMENT B. Immunohistochemistry ([id number]) for P53 and Ki-67 will be performed and results will be reported separately. Alcian blue/PAS stain with matched control supports the above diagnosis. E. Clinical correlation is suggested. MICROSCOPIC DESCRIPTION Slides are reviewed. GROSS DESCRIPTION A - Received in fixative is one container labeled with the patient's name and designated duodenal bulb biopsy. The specimen consists of two irregular fragments of light chapman soft tissue that in aggregate measure 0.7 x 0.6 x 0.1 cm. The specimen is totally submitted in one cassette. B - Received in fixative is one container labeled with the patient's name and designated distal esophagus. The specimen consists of three irregular fragments of light chapman soft tissue that in aggregate measure 1.0 x 0.5 x 0.1 cm. The specimen is totally submitted in one cassette. C - Received in fixative is one container labeled with the patient's name and designated transverse colon polyp. The specimen consists of two irregular fragments of light chapman soft tissue that in aggregate measure 0.8 x 0.7 x 0.1 cm. The specimen is totally submitted in one cassette. D - Received in fixative is one container labeled with the patient's name and designated sigmoid polyp x2. The specimen consists of multiple irregular fragments of light chapman soft tissue that in aggregate measure 2.0 x 2.0 x 0.1 cm. The specimen is totally submitted in one cassette. E - Received in fixative is one container labeled with the patient's name and designated sigmoid polyp. The specimen consists of a polypoid fragment of chapman tissue measuring 2.0 x 1.5 x 0.7 cm. The specimen is trisected and totally submitted in one cassette. / AM:ruben 06/23/2023 TC:0 CPT: 47843 x5, 74398
--- NOTE | 2023-06-22 13:08 | OP.EGD_ITS ---
Patient Name: Kenney Calixto Procedure Date: 06/22/2023 12:12 PM Date of : 1955 Age: 67 Procedure: Upper GI endoscopy Indications: Iron deficiency anemia Providers: Wilton Javier DO Medicines: Monitored Anesthesia Care Patient Profile: This is a 67 year old male. Refer to note in patient chart for documentation of history and physical. Patient has symptoms of chronic epigastric abdominal pain. Complications: No immediate complications. Procedure: Pre-Anesthesia Assessment: - Prior to the procedure, a History and Physical was performed, and patient medications and allergies were reviewed. The patient is competent. The risks and benefits of the procedure and the sedation options and risks were discussed with the patient. All questions were answered and informed consent was obtained. Patient identification and proposed procedure were verified by the physician in the pre-procedure area. Mental Status Examination: alert and oriented. Airway Examination: normal oropharyngeal airway and neck mobility. Respiratory Examination: clear to auscultation. CV Examination: normal. Prophylactic Antibiotics: The patient does not require prophylactic antibiotics. Prior Anticoagulants: The patient has taken no anticoagulant or antiplatelet agents. ASA Grade Assessment: III - A patient with severe systemic disease. After reviewing the risks and benefits, the patient was deemed in satisfactory condition to undergo the procedure. The anesthesia plan was to use monitored anesthesia care (MAC). Immediately prior to administration of medications, the patient was re-assessed for adequacy to receive sedatives. The heart rate, respiratory rate, oxygen saturations, blood pressure, adequacy of pulmonary ventilation, and response to care were monitored throughout the procedure. The physical status of the patient was re-assessed after the procedure. After obtaining informed consent, the endoscope was passed under direct vision. Throughout the procedure, the patient's blood pressure, pulse, and oxygen saturations were monitored continuously. The colonoscope was introduced through the mouth, and advanced to the second part of duodenum. The upper GI endoscopy was accomplished without difficulty. The patient tolerated the procedure well. Scope In: 12:20:41 PM Scope Out: 12:26:34 PM Total Procedure Duration Time 0 hours 5 minutes 53 seconds Findings: LA Grade A (one or more mucosal breaks less than 5 mm, not extending between tops of 2 mucosal folds) esophagitis with no bleeding was found 37 to 39 cm from the incisors. Biopsies were taken with a cold forceps for histology. Verification of patient identification for the specimen was done. Estimated blood loss was minimal. A moderate Schatzki ring was found in the lower third of the esophagus. A guidewire was placed and the scope was withdrawn. Dilation was performed with a Savary dilator with no resistance at 51 Fr. The dilation site was examined and showed moderate improvement in luminal narrowing. Estimated blood loss was minimal. A medium-sized hiatal hernia was present. Hematin (altered blood/awgylh-zyxfrh-bygm material) was found in the gastric body. Patchy granular mucosa was found at the pylorus. Biopsies were taken with a cold forceps for histology. Verification of patient identification for the specimen was done. Estimated blood loss was minimal. Patchy granular mucosa was found in the duodenal bulb. Biopsies were taken with a cold forceps for histology. Verification of patient identification for the specimen was done. Estimated blood loss was minimal. Many oozing linear duodenal ulcers with pigmented material were found in the duodenal bulb. The largest lesion was 5 mm in largest dimension. Coagulation for hemostasis using argon plasma at 0.3 liters/minute and 20 vernon was successful. Estimated blood loss was minimal. Impression: - LA Grade A reflux esophagitis with no bleeding. Biopsied. - Moderate Schatzki ring. Dilated. - Medium-sized hiatal hernia. - Hematin (altered blood/qgolnw-wcdfuf-ngwp material) in the gastric body. - Granular gastric mucosa. Biopsied. - Granular mucosa in the duodenal bulb. Biopsied. - Oozing duodenal ulcers with pigmented material. Treated with argon plasma coagulation (APC). Recommendation: - Discharge patient to home. - Resume previous diet. - Continue present medications. - Use Protonix (pantoprazole) 40 mg PO BID for 12 weeks. Procedure Code(s): --- Professional --- 49690, 59, Esophagogastroduodenoscopy, flexible, transoral; with control of bleeding, any method 45745, Esophagogastroduodenoscopy, flexible, transoral; with insertion of guide wire followed by passage of dilator(s) through esophagus over guide wire 39497, 59,51, Esophagogastroduodenoscopy, flexible, transoral; with biopsy, single or multiple CPT copyright 2021 [employer]. All rights reserved. The codes documented in this report are preliminary and upon radio sportscaster review may be revised to meet current compliance requirements. Wilton Javier DO 06/22/2023 1:07:57 PM This report has been signed electronically. Number of Addenda: 0 Note Initiated On: 06/22/2023 12:12 PM
--- NOTE | 2023-06-22 13:08 | OP.CCLET_ITS ---
06/22/2023 Vera Lucas [address] [place] [address] Re : Upper GI endoscopy procedure for Kenney Calixto Dear Dr. Lucas This procedure was performed on June. My impressions and recommendations are as follows: Impressions : - LA Grade A reflux esophagitis with no bleeding. Biopsied. - Moderate Schatzki ring. Dilated. - Medium-sized hiatal hernia. - Hematin (altered blood/xnopqu-ufrxaf-cmzf material) in the gastric body. - Granular gastric mucosa. Biopsied. - Granular mucosa in the duodenal bulb. Biopsied. - Oozing duodenal ulcers with pigmented material. Treated with argon plasma coagulation (APC). Recommendations : - Discharge patient to home. - Resume previous diet. - Continue present medications. - Use Protonix (pantoprazole) 40 mg PO BID for 12 weeks. My findings are described in the full procedure note, which is enclosed. If I can be of further assistance, please feel free to contact me at . Sincerely, Wilton Javier, 06/22/2023 1:07:57 PM This report has been signed electronically.
--- NOTE | 2023-06-22 13:13 | OP.CCLET_ITS ---
06/22/2023 Vera Lucas [address] [place] [address] Re : Colonoscopy procedure for Kenney Marily Dear Dr. Lucas This procedure was performed on June. My impressions and recommendations are as follows: Impressions : - Preparation of the colon was poor. - Moderate diverticulosis in the recto-sigmoid colon and in the sigmoid colon. - Five 1 to 2 mm polyps in the sigmoid colon, removed using injection-lift and a hot snare. Resected and retrieved. Tattooed. - One 5 mm polyp in the transverse colon, removed with a cold snare. Resected and retrieved. - Stool in the rectum, in the recto-sigmoid colon, in the sigmoid colon, at the splenic flexure, at the hepatic flexure, in the ascending colon and in the cecum. Recommendations : - Discharge patient to home. - Resume previous diet. - Continue present medications. - Await pathology results. - Repeat colonoscopy in 6 months because the bowel preparation was poor. My findings are described in the full procedure note, which is enclosed. If I can be of further assistance, please feel free to contact me at . Sincerely, Wilton Javier, 06/22/2023 1:13:03 PM This report has been signed electronically.
--- NOTE | 2023-06-22 13:13 | OP.COLON_ITS ---
Patient Name: Kenney Calixto Procedure Date: 06/22/2023 12:26 PM Date of : 1955 Age: 67 Procedure: Colonoscopy Indications: Screening for colorectal malignant neoplasm, This is the patient's first colonoscopy Providers: Wilton Javier DO Medicines: Monitored Anesthesia Care Patient Profile: This is a 67 year old male. Refer to note in patient chart for documentation of history and physical. Patient has symptoms of chronic epigastric abdominal pain. Last Colonoscopy: none. The patient's first colonoscopy is today. Complications: No immediate complications. Procedure: Pre-Anesthesia Assessment: - Prior to the procedure, a History and Physical was performed, and patient medications and allergies were reviewed. The patient is competent. The risks and benefits of the procedure and the sedation options and risks were discussed with the patient. All questions were answered and informed consent was obtained. Patient identification and proposed procedure were verified by the physician in the pre-procedure area. Mental Status Examination: alert and oriented. Airway Examination: normal oropharyngeal airway and neck mobility. Respiratory Examination: clear to auscultation. CV Examination: normal. Prophylactic Antibiotics: The patient does not require prophylactic antibiotics. Prior Anticoagulants: The patient has taken no anticoagulant or antiplatelet agents. ASA Grade Assessment: III - A patient with severe systemic disease. After reviewing the risks and benefits, the patient was deemed in satisfactory condition to undergo the procedure. The anesthesia plan was to use monitored anesthesia care (MAC). Immediately prior to administration of medications, the patient was re-assessed for adequacy to receive sedatives. The heart rate, respiratory rate, oxygen saturations, blood pressure, adequacy of pulmonary ventilation, and response to care were monitored throughout the procedure. The physical status of the patient was re-assessed after the procedure. After I obtained informed consent, the scope was passed under direct vision. Throughout the procedure, the patient's blood pressure, pulse, and oxygen saturations were monitored continuously. The colonoscope was introduced through the anus and advanced to the cecum, identified by appendiceal orifice and ileocecal valve. The colonoscopy was performed without difficulty. The patient tolerated the procedure well. The quality of the bowel preparation was poor. The ileocecal valve, appendiceal orifice, and rectum were photographed. Scope In: 12:28:10 PM Scope Withdrawal Time 0 hours 23 minutes 0 seconds Scope Out: 12:57:24 PM Total Procedure Duration Time 0 hours 29 minutes 14 seconds Findings: The perianal and digital rectal examinations were normal. Multiple small and large-mouthed diverticula were found in the recto-sigmoid colon and sigmoid colon. Five sessile polyps were found in the sigmoid colon. The polyps were 1 to 2 mm in size. These polyps were removed with a saline injection-lift technique using a hot snare. Resection and retrieval were complete. Verification of patient identification for the specimen was done. Area was tattooed with an injection of 1 mL of Martha ink. A 5 mm polyp was found in the transverse colon. The polyp was sessile. The polyp was removed with a cold snare. Resection and retrieval were complete. Verification of patient identification for the specimen was done. Estimated blood loss was minimal. Stool was found in the rectum, in the recto-sigmoid colon, in the sigmoid colon, at the splenic flexure, at the hepatic flexure, in the ascending colon and in the cecum. Impression: - Preparation of the colon was poor. - Moderate diverticulosis in the recto-sigmoid colon and in the sigmoid colon. - Five 1 to 2 mm polyps in the sigmoid colon, removed using injection-lift and a hot snare. Resected and retrieved. Tattooed. - One 5 mm polyp in the transverse colon, removed with a cold snare. Resected and retrieved. - Stool in the rectum, in the recto-sigmoid colon, in the sigmoid colon, at the splenic flexure, at the hepatic flexure, in the ascending colon and in the cecum. Recommendation: - Discharge patient to home. - Resume previous diet. - Continue present medications. - Await pathology results. - Repeat colonoscopy in 6 months because the bowel preparation was poor. Procedure Code(s): --- Professional --- 71172, Colonoscopy, flexible; with removal of tumor(s), polyp(s), or other lesion(s) by snare technique 73428, Colonoscopy, flexible; with directed submucosal injection(s), any substance CPT copyright 2021 [employer]. All rights reserved. The codes documented in this report are preliminary and upon perfume maker review may be revised to meet current compliance requirements. Wilton Javier DO 06/22/2023 1:13:03 PM This report has been signed electronically. Number of Addenda: 0 Note Initiated On: 06/22/2023 12:26 PM
[2023-06-22 13:49] LABS: Bedside Glucose 119 mg/dL (74-106)
== END 2023-06-22 14:27 | disposition home or self-care (01) ==
LOC: EN 10:09 → AC 10:11
PROVIDERS: PCP Internal Medicine; Referring Provider Internal Medicine; Visit Provider Internal Medicine Gastroenterology
PROC: 0DJD8ZZ Inspection of Lower Intestinal Tract, Via Natural or Artificial Opening Endoscopic (ICD-10-PCS; CPT 45378; principal; 2023-06-22 11:40)
DX: Z12.11 Encounter for screening for malignant neoplasm of colon (principal); K44.9 Diaphragmatic hernia without obstruction or gangrene; K21.00 Gastro-esophageal reflux disease with esophagitis, without bleeding; K57.30 Diverticulosis of large intestine without perforation or abscess without bleeding; Z87.891 Personal history of nicotine dependence; D50.9 Iron deficiency anemia, unspecified; K59.01 Slow transit constipation; K22.2 Esophageal obstruction; K26.4 Chronic or unspecified duodenal ulcer with hemorrhage; K29.80 Duodenitis without bleeding; K31.A0 Gastric intestinal metaplasia, unspecified; K22.70 Barrett's esophagus without dysplasia; D12.3 Benign neoplasm of transverse colon; D12.5 Benign neoplasm of sigmoid colon; N18.9 Chronic kidney disease, unspecified; D63.1 Anemia in chronic kidney disease
CPT/HCPCS: 43239; 43248; 45381; 45385; 43255; 81002; 82962; 88305; 88313; 88341; 88342; J7120; A4648; J2405

== ENCOUNTER 2023-06-29 13:54 | Emergency (ER) | payer MEDICAID, SELFPAY ==
[2023-06-29 13:55] VITALS: BP 166/67; PULSE 70; RESP 18; TEMP 36.9; O2SAT 98; BMI 22.8
--- NOTE | 2023-06-29 14:07 | EDS_ITS ---
HPI History of Present Illness Chief Complaint: Abd Pain [facility] Medical History Ambulates with cane Cardiology follow-up encounter Complete heart block (02/2019) CVA (cerebral vascular accident) (02/2019) Diabetes mellitus Dietary restriction DVT (deep venous thrombosis) Essential (primary) hypertension Former smoker High cholesterol History of echocardiogram History of edema History of pain when walking History of renal disease History of stress test HLD (hyperlipidemia) Insulin dependent diabetes mellitus Irregular heart beat Leg cramps Need for home health care Pacemaker Paroxysmal supraventricular tachycardia (06/2017) Sick sinus syndrome Sinus pause Stroke/cerebrovascular accident Syncope Tachyarrhythmia Wears glasses Home Medications atorvastatin 80 mg tablet 80 mg PO DAILY cholesterol 03/04/19 [History Last Taken 03/11/22] multivitamin (Daily-Yousuf tablet) 1 tab PO DAILY SUPPLEMENT 03/11/22 [History Last Taken 03/11/22] ascorbic acid (vitamin C) 500 mg tablet (Vitamin C) 500 mg PO BID 30 days #60 tabs 03/22/22 [Rx Last Taken Unknown] ferrous sulfate 325 mg (65 mg iron) tablet 325 mg PO BID 30 days #60 tabs 03/22/22 [Rx Last Taken Unknown] clopidogrel 75 mg tablet 75 mg PO DAILY 03/14/23 [History Last Taken 06/21/23] aspirin 81 mg tablet,delayed release 81 mg PO DAILY 04/07/23 [History Last Taken Unknown] insulin glargine 100 unit/mL (3 mL) subcutaneous pen (Lantus Solostar U-100 Insulin) 80 unit subcut .QAM DIABETES 04/07/23 [History Last Taken Unknown] trazodone 50 mg tablet 50 mg PO QHS 04/07/23 [History Last Taken Unknown] insulin lispro 100 unit/mL subcutaneous pen 2 unit subcut TID 05/25/23 [History Last Taken Unknown] hydralazine 50 mg tablet 80 mg PO DAILY 06/29/23 [History Last Taken Unknown] Allergy/AdvReac Type Severity Reaction Status Date / Time metformin [From Glucophage] AdvReac Diarrhea Verified 06/29/23 13:54 Family History Mother Cancer Father Heart disease Hypertension Myocardial infarction Surgical History History of carpal tunnel release History of hand surgery History of permanent cardiac pacemaker placement (03/05/19) Social History household members: none Smoking Status: Former smoker Smokeless tobacco user: other alcohol intake: never substance use type: does not use EXAM Physical Exam Const Vital Signs: 06/29/23 13:55 Temperature 98.4 F Temperature Source Temporal Pulse Rate 70 Respiratory Rate 18 Blood Pressure 166/67 H Blood Pressure Mean 100 Pulse Ox 98 Oxygen Delivery Method Room Air MDM MDM MDM Narrative Medical decision making narrative: HISTORY OF PRESENT ILLNESS: 67-year-old male here with right lower quad abdominal pain for the last 5 hours. He states he has not had a bowel movement for the past week. Denies history abdominal surgery. Denies any fever, vomiting. Denies any trouble urinating. Locates the pain to the right lower quadrant REVIEW OF SYSTEMS: Pertinent positives: Abdominal pain, constipation Pertinent negatives: Chest pain, shortness of breath, urinary complaints PHYSICAL EXAM: Nursing triage notes reviewed, Vital signs reviewed Constitutional: please see mdm HENT: MMM Eyes: Pupils equal round and reactive to light, Extraocular muscles intact Neck: No stridor, no JVD, full neck ROM Lungs: Clear to auscultation, No wheezing or rales. No increased work of breathing, no conversational dyspnea, no accessory muscle use, no nasal flaring. No respiratory distress noted Heart: Regular rate and rhythm, No murmurs, No rubs and No gallops, 2+ distal pulses (radial, femoral, posterior tibial) in all extremities Abdomen: Soft, mild right lower quadrant TTP but no rigidity, rebound or guarding, no obvious peritoneal signs, no palpable pulsatile abdominal masses, no auscultated abdominal bruit : No CVAT Extremities: No edema Neuro: No focal neurological deficits, cranial nerves II through XII intact, 5/5 strength in all extremities. Intact sensation to light touch in all extremities, 2+ reflexes bilateral patella tendons. Normal gait. No ataxia. Skin: No rash or lesions noted MEDICAL DECISION MAKING: Chief Complaint: Abdominal pain External records reviewed: Imaging reviewed: CT scan of the abdomen pelvis from 2018 shows left renal cyst, nonobstructing calculi, no evidence of acute intra- abdominal disease Factors affecting care: Complete heart block, sick sinus syndrome, status post pacemaker, hypertension, hyperlipidemia, CKD, type 2 diabetes Social determinants of health former smoker History obtained from others: none Consults: none [facility] Narrative: Patient was hemodynamically stable, afebrile, nontoxic-appearing. [place] exam was benign not peritonitic, not distended. He had tenderness with right lower quadrant I considered the following differential diagnosis: Appendicitis, diverticulitis, nephrolithiasis, pyelonephritis, AAA I obtained a broad lab and imaging workup to further elucidate the etiology patient complaints. Treated patient with IV fluids he is made n.p.o. is given narcotic pain medicine and nausea medicine. I obtained a broad lab and imaging workup to further elucidate etiology patient complaints. Obtain CT scan given patient advanced age, right lower quadrant tenderness and concern for appendicitis, nephrolithiasis, AAA or perforation. ALL IMAGES (IF OBTAINED) HAVE BEEN PERSONALLY REVIEWED AND INTERPRETED BY MYSELF. CBC with no leukocytosis to suggest systemic inflammation, baseline anemia, no thrombocytopenia BMP with no significant electrolyte disturbance, noted VENICE on CKD Lipase is wnl indicating no pancreatic inflammation. LFTs show no evidence of hepatobiliary pathology. CT scan of the abdomen pelvis shows no evidence of acute intra-abdominal surgical pathology. Urinalysis shows no evidence of urinary inflammation suggestive of UTI The synthesis of the patient's labs, images, physical exam, history and vital signs suggestive of dehydration and constipation. There is no signs of pyelonephritis, nephrolithiasis, acute surgical pathology in the abdomen or pelvis I discussed admission with the patient. I stated he would be admitted for IV hydration and close kidney monitoring given VENICE in the setting of CKD. Patient reiterated he was not having any nausea or vomiting and he was constipated not having any diarrhea. He stated he did not want to stay in the hospital during the holiday. He stated he would be able to call his primary care doctor's office tomorrow to discuss getting outpatient blood work done by early next week. He stated he had adequate transportation and a good working relationship with his primary care physician to achieve this result. He stated he would go home and take an increased p.o. fluids. He promised to return if his symptoms changed or worsened. He was alert and oriented x 3 and had capacity to make his own medical decision and chose to be discharged home at this time and lieu of being admitted for hydration and monitoring. Patient was told to take in more oral fluids in the form of Pedialyte body armor or Gatorade. Told to begin a bowel regimen. He is given strict return precautions for return The patient and/or family, caregivers express understanding. The patient and/or family, caregivers agrees with the plan. Shared decision making: I will have a discussion with the patient and or visitors regarding risk/benefits of further testing or admission. They will be made aware of of the risk/benefits inherent in this decision they will be given the opportunity to voice understanding. Total critical care time today provided was at least 0 minutes. This excludes separately billable procedures. Critical care time (if documented) is secondary to the patient having high probability of clinically significant/life threatening deterioration in the patient's condition which required my urgent intervention. Impression: 1. Abdominal pain 2. Constipation 3. Dehydration 4. VENICE on CKD Dispo: Discharge home Lab Data Labs: Laboratory Results - last 24 hr 06/29/23 06/29/23 14:05 15:38 WBC 7.4 RBC 2.94 L Hgb 8.2 L Hct 25.3 L MCV 86.1 MCH 27.9 MCHC 32.4 RDW Std Deviation 41.2 RDW Coeff of Harry 13.2 Plt Count 227 MPV 9.4 Immature Gran % (Auto) 1.500 H Neut % (Auto) 64.9 Lymph % (Auto) 25.1 [place] % (Auto) 5.8 Eos % (Auto) 2.3 Baso % (Auto) 0.4 Absolute Neuts (auto) 4.8 Absolute Lymphs (auto) 1.86 Nucleated RBC % 0 Sodium 140 Potassium 3.9 Chloride 113 H Carbon Dioxide 20.0 L Anion Gap 7 BUN 64 H Creatinine 3.35 H Estim Creat Clear Calc 21.80 Est GFR (MDRD) Af Amer 24 L Est GFR (MDRD) Non-Af 20 L BUN/Creatinine Ratio 19.1 Glucose 161 H Calcium 8.4 L Total Bilirubin 0.20 Direct Bilirubin 0.05 AST 15 ALT 22 Alkaline Phosphatase 90 Total Protein 6.0 L Albumin 3.0 L Globulin 3.0 Lipase 24 Urine Color Yellow Urine Clarity Clear Urine pH 5.0 Ur Specific [place] 1.015 Urine Protein 500 H Urine Glucose (UA) 50 H Urine Ketones Negative Urine Occult Blood Negative Urine Nitrite Negative Urine Bilirubin Negative Urine Urobilinogen Normal Ur Leukocyte Esterase Negative Urine RBC 0 SEEN Urine WBC 0-5 SEEN Ur Squamous Epith Cells 0-5 SEEN Urine Bacteria 0 SEEN Urine Mucus 0 SEEN Radiography Diagnostic Testing: Clinical Impression(s) from Imaging Studies Abdomen/Pelvis CT 06/29/23 14:17 IMPRESSION: Bilateral punctate nonobstructing renal stones. Cholelithiasis, no CT evidence of acute cholecystitis Diverticulosis, no CT evidence of acute diverticulitis Normal appendix visualized Diffuse atherosclerosis Degenerative bony changes Electronically Signed: Mitchell Neves MD at 15:31 EST , Discharge Plan Triage Chief Complaint: Abd Pain ED Provider: Leonel Horton Dx/Rx/DC Orders Instructions: Dehydration, ED Constipation (Adult), ED Abdominal Pain Unkn Cause Male... Prescriptions: No Action clopidogrel 75 mg tablet 75 mg PO DAILY atorvastatin 80 MG tablet 80 mg PO DAILY multivitamin [Daily-Yousuf] Tablet 1 tab PO DAILY ferrous sulfate 325 mg (65 mg iron) tablet 325 mg PO BID 30 Days Qty: 60 0RF ascorbic acid (vitamin C) [Vitamin C] 500 mg tablet 500 mg PO BID 30 Days Qty: 60 0RF insulin glargine [Lantus Solostar U-100 Insulin] 100 unit/mL (3 mL) insulin pen 80 unit SUBCUT .QAM aspirin 81 mg tablet,delayed release (DR/EC) 81 mg PO DAILY trazodone 50 mg tablet 50 mg PO QHS insulin lispro 100 unit/mL insulin pen 2 unit SUBCUT TID hydralazine 50 mg Tablet 80 mg PO DAILY Primary Care Provider: Vera Lucas Referrals: Vera Lucas MD [Primary Care Provider] - Activity Restrictions/Additional Instructions: Thank you for trusting us with your care today! Please take Tylenol (2 pills, 650 mg), ibuprofen (2 pills, 400 mg) every 6 hours as needed for pain and fever control. Please go to a local pharmacy or drugstore and obtain MiraLAX, senna and Colace. Please begin taking each of these medicines daily until your desired consistency bowel movement is achieved. Please drink increased fluids by mouth. I recommend taking Pedialyte, body armor or Gatorade for rehydration. Please return if develop any nausea or vomiting or you are unable to take fluids by mouth. Please call your primary care doctor's office tomorrow to obtain an outpatient order to measure your kidney function. Please return to the emergency department if your symptoms change or worsen. Specifically if you develop nausea, vomiting, worsening abdominal pain, if you lose consciousness or if your symptoms change or worsen in any way. Please follow with your primary care physician for further outpatient evaluation and management. Disposition Disposition: Home, Self Care
--- NOTE | 2023-06-29 14:17 | CT_ITS ---
STUDY: CT ABDOMEN AND PELVIS WITHOUT CONTRAST REASON FOR EXAM: Male, 67 years old. Right lower quadrant abdominal pain RADIATION DOSAGE (If Supplied By Facility): CTDIvol = ( 6.06 ) mGy, DLP = ( 293.93 ) mGycm TECHNIQUE: Transaxial images were obtained from the dome of the diaphragm to the symphysis pubis without oral contrast, and without intravenous contrast. Sagittal and coronal images were reconstructed. Individualized dose optimization techniques were used for this CT. COMPARISON: None. FINDINGS: The visualized lung bases are unremarkable. The visualized portions of the heart are within normal limits. Pacer leads seen along the base of the heart Normal liver. There are multiple tiny gallstones. Normal spleen. Normal pancreas. Normal bilateral adrenal glands. No obstructive uropathy, or suspicious solid renal lesion, there are punctate nonobstructing renal stones. Normal visualized stomach. Normal small intestine. Scattered colonic diverticula without CT evidence of acute diverticulitis. The appendix is visualized and appears normal. Appendix seen on coronal recon images 66-74 There is diffuse atherosclerotic calcification of the abdominal aorta, without a demonstrated aneurysm. Normal inferior vena cava. Normal retroperitoneum. Normal urinary bladder. Normal abdominal wall. There are diffuse degenerative changes of the visualized lumbar spine. CT/Abdomen/Pelvis without Cont IMPRESSION: Bilateral punctate nonobstructing renal stones. Cholelithiasis, no CT evidence of acute cholecystitis Diverticulosis, no CT evidence of acute diverticulitis Normal appendix visualized Diffuse atherosclerosis Degenerative bony changes Electronically Signed: Mitchell Neves MD at 15:31 EST ,
[2023-06-29] MEDS: Ondansetron 4 MG/2 ML Vial IV (14:26)
[2023-06-29] MEDS: 0.9% Normal Saline (1000mL) 1,000 ML 1000 ML IV (14:26)
[2023-06-29] MEDS: Morphine 4 MG/ML Syringe IV (14:26)
[2023-06-29 14:30] LABS: Absolute Lymphocyte Count 1.86 X10^3/uL (0.83-4.51); Absolute Neutrophil Count 4.8 X10^3/uL (2.0-7.7); Basophil# 0.03 X10^3/uL; Basophil% 0.4 % (0-1); Eosinophil# 0.17 X10^3/uL; Eosinophils% 2.3 % (0-5); Hematocrit 25.3 % (40-54); Hemoglobin 8.2 g/dL (13.0-16.5); Lymphocyte # 1.86 X10^3/ul (0.83-4.51); Lymphocyte % 25.1 % (19-41); Mean Corp Hgb Conc 32.4 g/dL (32-36); Mean Corpuscular Hgb 27.9 pg (27.0-32.0); Mean Corpuscular Volume 86.1 fL (80-94); Mean Platelet Vol. 9.4 fl (6.2-12.0); Monocyte# 0.43 X10^3/uL; Monocyte% 5.8 % (0-10); NRBC Flagged by Analyzer 0 % (0-5); Neutrophil # 4.82 X10^3/uL (2.7-7.7); Neutrophil % 64.9 % (47-70); Platelet Count 227 K/mm3 (150-450); RBC Distribution Width CV 13.2 % (11.6-14.6); RBC Distribution Width SD 41.2 fl (35.1-43.9); Red Blood Count 2.94 M/mm3 (4.6-6.2); White Blood Count 7.4 K/mm3 (4.4-11.0)
[2023-06-29 14:58] LABS: Anion Gap 7 (5-15); BUN 64 mg/dL (7-18); BUN/Creat Ratio 19.1 RATIO (10-20); Calcium,Total 8.4 mg/dL (8.5-10.1); Chloride 113 mmol/L (98-107); Creatinine, Serum 3.35 mg/dL (0.70-1.30); EST Glomerular Filtration Rate 20 mL/min (>60); Est Glom Filt Rate - Afr Amer 24 mL/min (>60); Glucose 161 mg/dL (74-106); Lipase 24 U/L (13-75); Potassium 3.9 mmol/L (3.5-5.1); Sodium Level 140 mmol/L (136-145)
[2023-06-29 15:45] LABS: Bacteria 0 SEEN /hpf (None Seen); Mucous, Urine 0 SEEN /hpf (<or=2+); Red Blood Cells-Urine 0 SEEN /hpf (0-5)
[2023-06-29 15:50] LABS: Color, Urine Yellow (Yellow); Glucose, Dipstick 50 mg/dl (Normal); Ketone-Dipstick Negative (Negative); Leukocyte Esterase-Dipstick Negative /ul (Negative); Nitrite-Dipstick Negative (Negative); Occult Blood-Urine Negative /ul (Negative); Protein-Dipstick 500 mg/dl (Negative); Specific Gravity, Urine 1.015 (1.002-1.030); Urine Bilirubin Dipstick Negative (Negative); Urine Clarity Clear (Clear); Urine Urobilinogen Normal (Normal)
[2023-06-29 16:13] LABS: White Blood Cells 0-5 SEEN /hpf (0-5)
[2023-06-29 16:14] LABS: Squamous Epithelial Cells - UA 0-5 SEEN /hpf (0-5)
[2023-06-29 16:30] LABS: AST(SGOT) 15 U/L (15-37); Alanine Aminotransfer ALT/SGPT 22 U/L (16-61); Alkaline Phosphatase 90 U/L (45-117); Bilirubin, Direct 0.05 mg/dL (0.00-0.30)
[2023-06-29 16:58] VITALS: BP 175/70; PULSE 60; RESP 16; O2SAT 97
== END 2023-06-29 17:05 | disposition home or self-care (01) ==
PROVIDERS: Emergency Provider Emergency Medicine; PCP Internal Medicine; Visit Provider Emergency Medicine
DX: R10.31 Right lower quadrant pain (principal); N17.9 Acute kidney failure, unspecified; E11.22 Type 2 diabetes mellitus with diabetic chronic kidney disease; I44.2 Atrioventricular block, complete; I49.5 Sick sinus syndrome; E86.0 Dehydration; Z87.891 Personal history of nicotine dependence; Z95.0 Presence of cardiac pacemaker; E78.00 Pure hypercholesterolemia, unspecified; I12.9 Hypertensive chronic kidney disease with stage 1 through stage 4 chronic kidney disease, or unspecified chronic kidney disease; K59.00 Constipation, unspecified; N18.9 Chronic kidney disease, unspecified
CPT/HCPCS: 74176; 80048; 80076; 81001; 83690; 85025; 96361; 96374; 96375; 99285; J7030; A4216; J2405

== ENCOUNTER 2023-07-23 18:23 | Emergency (ER) | payer MEDICAID, SELFPAY ==
[2023-07-23 18:25] VITALS: BP 126/55; PULSE 69; RESP 17; TEMP 36.7; O2SAT 98
--- NOTE | 2023-07-23 18:30 | RAD_ITS ---
STUDY: X-RAY - UNILATERAL RIBS ( RIGHT ) WITH CHEST REASON FOR EXAM: Male, 67 years old. fall TECHNIQUE - RIBS: 4 view(s) of the ribs. TECHNIQUE - CHEST: Single PA view of the chest. COMPARISON: 09/14/2022 FINDINGS - RIBS: Normal visualized ribs without a demonstrated fracture. FINDINGS - CHEST: Left subclavian pacemaker which is unchanged. The lungs are clear and expanded. There is no demonstrated pleural abnormality. Normal size heart. Normal mediastinum and merna. Normal visualized pulmonary arteries. Normal visualized aortic arch and descending thoracic aorta. Normal visualized thoracic spine. Normal visualized ribs, clavicles, and shoulders. There is no demonstrated abnormality of the visualized soft tissue structures of the upper abdomen. RAD/Ribs Uni Min 3V w/PA Chest IMPRESSION: RIBS: Normal x-ray examination of the ribs. CHEST: Normal x-ray examination of the chest. Electronically Signed: Danny Mcdaniel MD at 19:47 EST ,
--- NOTE | 2023-07-23 20:27 | EDS_ITS ---
HPI <ANNIA Ho - Last Filed: 07/23/23 21:06> History of Present Illness Chief Complaint: Fall Narrative Narrative: Patient presenting today with right sided rib pain that started today after a mechanical fall this afternoon. He reports that he was taking a shower when he slipped in the bathtub and hit his right lateral rib cage against the side of the bathtub. He did not hit his head, he denies loss of consciousness as, he denies neck pain/back pain. He denies any shortness of breath or other injury. PFS <ANNIA Ho - Last Filed: 07/23/23 21:06> [facility] Medical History Ambulates with cane Cardiology follow-up encounter Complete heart block (02/2019) CVA (cerebral vascular accident) (02/2019) Diabetes mellitus Dietary restriction DVT (deep venous thrombosis) Essential (primary) hypertension Former smoker High cholesterol History of echocardiogram History of edema History of pain when walking History of renal disease History of stress test HLD (hyperlipidemia) Insulin dependent diabetes mellitus Irregular heart beat Leg cramps Need for home health care Pacemaker Paroxysmal supraventricular tachycardia (06/2017) Sick sinus syndrome Sinus pause Stroke/cerebrovascular accident Syncope Tachyarrhythmia Wears glasses Home Medications atorvastatin 80 mg tablet 80 mg PO DAILY cholesterol 03/04/19 [History Last Taken 03/11/22] multivitamin (Daily-Yousuf tablet) 1 tab PO DAILY SUPPLEMENT 03/11/22 [History Last Taken 03/11/22] ascorbic acid (vitamin C) 500 mg tablet (Vitamin C) 500 mg PO BID 30 days #60 tabs 03/22/22 [Rx Last Taken Unknown] ferrous sulfate 325 mg (65 mg iron) tablet 325 mg PO BID 30 days #60 tabs 03/22/22 [Rx Last Taken Unknown] clopidogrel 75 mg tablet 75 mg PO DAILY 03/14/23 [History Last Taken 06/21/23] aspirin 81 mg tablet,delayed release 81 mg PO DAILY 04/07/23 [History Last Taken Unknown] insulin glargine 100 unit/mL (3 mL) subcutaneous pen (Lantus Solostar U-100 Insulin) 80 unit subcut .QAM DIABETES 04/07/23 [History Last Taken Unknown] trazodone 50 mg tablet 50 mg PO QHS 04/07/23 [History Last Taken Unknown] insulin lispro 100 unit/mL subcutaneous pen 2 unit subcut TID 05/25/23 [History Last Taken Unknown] hydralazine 50 mg tablet 80 mg PO DAILY 06/29/23 [History Last Taken Unknown] Allergy/AdvReac Type Severity Reaction Status Date / Time metformin [From Glucophage] AdvReac Diarrhea Verified 07/23/23 18:24 Family History Mother Cancer Father Heart disease Hypertension Myocardial infarction Surgical History History of carpal tunnel release History of hand surgery History of permanent cardiac pacemaker placement (03/05/19) Social History household members: none Smoking Status: Former smoker Smokeless tobacco user: other alcohol intake: never substance use type: does not use ROS <ANNIA Ho - Last Filed: 07/23/23 21:06> ROS ED Constitutional Constitutional ED: Denies chills or fever(s) Cardiovascular Cardiovascular: Denies chest pain Respiratory/Chest Respiratory/Chest: Denies cough, dyspnea or tachypnea Gastrointestinal Gastrointestinal: Denies abdominal pain, nausea or vomiting Musculoskeletal Musculoskeletal: Reports other Details: Right lateral rib cage pain ; Denies back pain or neck pain Integumentary Denies Abrasions Neurologic Neurologic: Denies headache(s) or weakness EXAM <ANNIA Ho - Last Filed: 07/23/23 21:06> Physical Exam Const Vital Signs: 07/23/23 18:25 07/23/23 20:53 Temperature 98.1 F Temperature Source Temporal Pulse Rate 69 Respiratory Rate 17 Respiratory Effort Normal Blood Pressure 126/55 H Blood Pressure Mean 78 Pulse Ox 98 Oxygen Delivery Method Room Air Positive well nourished, well developed and no apparent distress General Appearance ED: well developed HEENT Reports normocephalic and head/scalp atraumatic Mouth ED: Yes moist mucous membranes normal Eyes PERRL and EOMs intact bilaterally Neck full ROM and supple Chest Wall inspection of chest normal Chest Narrative: Pain to palpation to the right lateral rib cage, no crepitus, no ecchymosis or erythema. Resp normal respiratory effort and clear to auscultation bilaterally Cardio regular rate and regular rhythm GI soft to palpation, non-tender, non-distended and no masses Back/Spine normal ROM and normal to inspection Extremity normal to inspection and full ROM Neuro oriented x3, CN's II-XII intact bilaterally, moves all extremities, no focal motor deficits and no sensory deficits noted Sensorium / Orientation: awake and alert Psych mental status grossly normal and thought process normal Skin no rashes or lesions noted and no wounds <Dr. Juice Suero, - Last Filed: 07/23/23 22:40> Physical Exam Const Vital Signs: 07/23/23 18:25 07/23/23 20:53 Temperature 98.1 F Temperature Source Temporal Pulse Rate 69 Respiratory Rate 17 Respiratory Effort Normal Blood Pressure 126/55 H Blood Pressure Mean 78 Pulse Ox 98 Oxygen Delivery Method Room Air [facility] <ANNIA Ho - Last Filed: 07/23/23 21:06> [facility] Narrative Medical decision making narrative: Patient presenting with right rib cage pain after a mechanical fall in the bathtub this afternoon, he hit his right side against the side of the bathtub. He did not hit his head, there was no loss of consciousness, he does not have any head or neck pain. He is tender along the right lateral rib cage, no crepitus or ecchymosis. X-ray of the ribs and chest were obtained and are negative for any fracture. I did offer Tylenol, patient declines. He has been instructed to ice the area and take Tylenol for pain as needed. He is to follow-up with his PCP and will be discharged home in stable condition. He is comfortable with plan. Radiography Diagnostic Testing: Clinical Impression(s) from Imaging Studies Ribs w/Chest X-Ray 07/23/23 18:30 IMPRESSION: RIBS: Normal x-ray examination of the ribs. CHEST: Normal x-ray examination of the chest. Electronically Signed: Danny Mcdaniel MD at 19:47 EST , <Dr. Juice Suero DO - Last Filed: 07/23/23 22:40> MDM Radiography Diagnostic Testing: Clinical Impression(s) from Imaging Studies Ribs w/Chest X-Ray 07/23/23 18:30 IMPRESSION: RIBS: Normal x-ray examination of the ribs. CHEST: Normal x-ray examination of the chest. Electronically Signed: Danny Mcdaniel MD at 19:47 EST , Treatment and Re-Evaluation Narrative: I have personally performed a face to face assessment of the patient and have reviewed the JAMI Note. I performed a substantive portion of the visit including all aspects of the following. My dacosta findings include: History: Patient presents with right chest injury that began after a fall today. Patient states he slipped getting out of the shower. Patient states he landed on his right side. Patient states he hit the right side of his chest. Patient denies any snapping or popping sensations. Patient describes the pain as sharp. Patient denies any head injury or loss of consciousness. Patient denies any other injuries. Patient denies any paresthesias or weakness. Exam: Vital signs are stable. Patient is afebrile. Patient is in no acute distress. Oral mucosa is pink and moist. Neck is supple. Trachea is midline. There is no JVD. Heart was regular rate and rhythm. Lungs are clear and equal bilaterally. There is good respiratory effort noted. There is tenderness over the right lateral chest wall. There is no edema or ecchymosis. There is no bony crepitance or step-off noted. There is no subcutaneous emphysema noted. Abdomen is soft. Bowel sounds are normal. There is no tenderness. Cranial nerves II through XII are intact. There are no focal motor or sensory deficits noted. Medical Decision Making: Differential diagnosis includes rib fracture, chest contusion, and pneumothorax. Rib x-rays will be obtained to assess for rib fracture or pneumothorax. X-rays of the right ribs were obtained. There are 5 views. On my independent interpretation, there is no acute fracture. There is no pneumothorax noted. Radiologist also interpreted the x-rays and agrees. Patient was advised of his findings. Patient was instructed use ice to the area. Patient was instructed to take Tylenol or ibuprofen as needed for pain. Patient was instructed to follow-up with his primary care physician in 5 to 7 days. Patient understood and was agreeable with the plan. All questions were answered. Discharge Plan Triage Chief Complaint: Fall ED Midlevel Provider: Kia Sheppard ED Provider: Juice Suero Dx/Rx/DC Orders Clinical Impression: Contusion of ribs Instructions: ED Bruise, Rib Prescriptions: No Action clopidogrel 75 mg tablet 75 mg PO DAILY atorvastatin 80 MG tablet 80 mg PO DAILY multivitamin [Daily-Yousuf] Tablet 1 tab PO DAILY ferrous sulfate 325 mg (65 mg iron) tablet 325 mg PO BID 30 Days Qty: 60 0RF ascorbic acid (vitamin C) [Vitamin C] 500 mg tablet 500 mg PO BID 30 Days Qty: 60 0RF insulin glargine [Lantus Solostar U-100 Insulin] 100 unit/mL (3 mL) insulin pen 80 unit SUBCUT .QAM aspirin 81 mg tablet,delayed release (DR/EC) 81 mg PO DAILY trazodone 50 mg tablet 50 mg PO QHS insulin lispro 100 unit/mL insulin pen 2 unit SUBCUT TID hydralazine 50 mg Tablet 80 mg PO DAILY Primary Care Provider: Vera Lucas Referrals: Vera Lucas MD [Primary Care Provider] - 1 Week if not improving Activity Restrictions/Additional Instructions: Ice your ribs a few times a day for the next few days for 15 minutes at a time. You can take Tylenol for your pain as needed. Follow-up with your PCP. Return for any worsening of your symptoms. Disposition Disposition: Home, Self Care Discharge Date/Time: 07/23/23 20:55
== END 2023-07-23 20:55 | disposition home or self-care (01) ==
PROVIDERS: Emergency Provider Emergency Medicine; PCP Internal Medicine; Visit Provider Emergency Medicine
DX: S20.219A Contusion of unspecified front wall of thorax, initial encounter (principal); E11.9 Type 2 diabetes mellitus without complications; I10 Essential (primary) hypertension; Z87.891 Personal history of nicotine dependence; E78.00 Pure hypercholesterolemia, unspecified; W01.198A Fall on same level from slipping, tripping and stumbling with subsequent striking against other object, initial encounter
CPT/HCPCS: 71101; 99282

== ENCOUNTER 2023-08-23 10:26 | Day surgery (SDC) | payer MEDICAID, SELFPAY ==
[2023-08-23 10:52] VITALS: BP 167/77; PULSE 71; RESP 16; TEMP 36.6; O2SAT 100; BMI 21.8
[2023-08-23] MEDS: Lactated Ringers 1,000 ML 15 ML IV (10:57)
[2023-08-23 11:18] LABS: Bedside Glucose 62 mg/dL (74-106)
--- NOTE | 2023-08-23 11:45 | COLBX_PTH ---
PATHOLOGY RESULTS PATIENT: LOU JULIEN LOC: EN U#:[id number] AGE/SX: 67/M ROOM: RE08/23/[address]: Dr. Wilton Javier DO : 1955 BED: DIS: 08/23/2023 SPEC #: [id number] RECD: 08/23/23 13:15 STATUS: ROSALEE ROBINA #: [id number] CASSANDRA: 08/23/23 11:[address]: Wilton Javier DEPT: SURGICAL PATHOLOGY RECD BY: Malia Ferrara ENTERED: 08/23/23 13:44 SP TYPE: COLON BX OTHR DR: Dr. 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 See comment. AM:ruben 08/24/2023 COMMENT Neither hyperplastic nor adenomatous change is identified. Clinical correlation is suggested. MICROSCOPIC DESCRIPTION Slides are reviewed. GROSS DESCRIPTION Received in fixative is one container labeled with the patient's name and designated sigmoid polyp biopsy. The specimen consists of multiple irregular fragments of light chapman soft tissue that in aggregate measure 1.5 x 0.3 x 0.1 cm. The specimen is totally submitted in one cassette. / SJ:ruben 08/23/2023 TC:5 CPT: 44344
--- NOTE | 2023-08-23 12:07 | HP.PCM_ITS ---
History and Physical Date of Admission: 08/23/23 67 M who presents to the office today for *BGI established 06.15.22 for management of constipation with one spontaneous BM every 1-2 weeks with incomplete evacuation without pain or bloating. Start lactulose [facility] ED 09.14.22 with N/V and hyperglycemia with BS of 600 the day prior, but has not been taking Victoza as he thought it was . Glucose H531. Treated with fluids and glucose correction. Discharged with Reglan for nausea management. ? US RUQ 09.14.22 hepatic measurement 16.8cm with normal echogenicity; diffuse pancreatic atrophy with normal echogenicity. GI workup: ? Biochemical 03.14.23 CBC (hgb L8.9), haptoglobin, ferritin, LDH, IgGAM, GALINDO without pertinent abnormality ? Iron L50, TIBC L210 ? Capsule endoscopy 03.21.23 small amount of blood seen in stomach w ithout identifiable source EGD and colonoscopy 06.22.23 EGD LA Grade A esophagitis, metaplasia +; Schatzki ring, Savary 51F; medium hiatal hernia; granular mucosa of pylorus and duodenum; many oozing gastric ulcers of duodenum, APC. Colonoscopy poor prep; diverticulosis; six polyps, 5 requiring submucosal lift, tattooed. Polyps TA with one having focal high-grade dysplasia 4.5mm at greatest dimension. [facility] ED 06.29.23 with abdominal pain and lack of BM for one week. Hydrated and discharged with bowel regimen. Contact, 07.06.23 requesting callback, not received. OV 08.11.23 Reports BM once a week. He now has an aide who helps with his BS control. ROS Const Constitutional: Positive for headache(s); No fatigue ENT ENT: Positive for headache(s); No difficulty swallowing Gastro GI: No abdominal pain, belching, bloating, change in bowel habits, change in stool character, coffee ground emesis, constipation, cramping, diarrhea, heartburn, difficulty swallowing, feeling full early, excessive flatus, incontinent of stools, Vomiting blood/hematemesis, Blood in stool, loose stools, Black,tarry stools, nausea/dyspepsia, pain with swallowing, vomiting or other Musc Musculoskeletal: Positive for leg pain at night; No joint pain Skin Skin: No yellowing of the eye or itchy eyes Neuro Neurology: Positive for headache(s) Psych Psychiatric: No anxiety and No depression Endo Endocrine: No fatigue Aller/Imm Allergy/Immunologic: No itchy eyes Calderon/Lymp Hematologic/Lymphatic: No easy bleeding or easy bruising Quality Reporting Tobacco Screening ([facility] 138) Smoking Status: Former smoker Assessment and Plan Assessment and Plan (1) Anemia: Status: Chronic Qualifiers: Anemia type: iron deficiency Plan: Iron deficiency anemia from an unknown cause. 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 Patient says that he does not see a abnormal psychology teacher so we will need to refer him to abnormal psychology teacher. We may perform a capsule endoscopy to see if he has any signs of peptic ulcer disease, angiodysplasia secondary to chronic kidney disease, telangiectasia. He may also need to be started on iron therapy. Iron studies including CBC, reticulocyte count, LDH, haptoglobin, ferritin, TIBC, saturation. (2) Constipation: Status: Chronic Qualifiers: Constipation type: slow transit constipation Qualified Code(s): K59.01 - Slow transit constipation Plan: For his constipation lactulose therapy. I explained to him that Lactulose may cause his blood sugar to increase. He says that he had egd and colonoscopy in the past.. (3) High grade dysplasia in colonic adenoma: Status: Acute Plan: 6 adenomatous polyps that were removed during his colonoscopy. One of the polyps was tubular adenoma with high-grade dysplasia. We will get a repeat colonoscopy with better prep and evaluation of the polypectomy site.
[2023-08-23 13:05] VITALS: BP 160/74; BP 167/77; PULSE 60; RESP 16; TEMP 36.4; O2SAT 100
--- NOTE | 2023-08-23 13:09 | OP.COLON_ITS ---
Patient Name: Kenney Calixto Procedure Date: 08/23/2023 12:36 PM Date of : 1955 Age: 67 Procedure: Colonoscopy Indications: High risk colon cancer surveillance: Personal history of colonic polyps Providers: Wilton Javier DO Medicines: Monitored Anesthesia Care Patient Profile: This is a 67 year old male. Refer to note in patient chart for documentation of history and physical. Last Colonoscopy: 6 months ago. Complications: No immediate complications. Procedure: Pre-Anesthesia Assessment: - Prior to the procedure, a History and Physical was performed, and patient medications and allergies were reviewed. The patient is competent. The risks and benefits of the procedure and the sedation options and risks were discussed with the patient. All questions were answered and informed consent was obtained. Patient identification and proposed procedure were verified by the physician in the pre-procedure area. Mental Status Examination: alert and oriented. Airway Examination: normal oropharyngeal airway and neck mobility. Respiratory Examination: clear to auscultation. CV Examination: normal. Prophylactic Antibiotics: The patient does not require prophylactic antibiotics. Prior Anticoagulants: The patient has taken no anticoagulant or antiplatelet agents. ASA Grade Assessment: II - A patient with mild systemic disease. After reviewing the risks and benefits, the patient was deemed in satisfactory condition to undergo the procedure. The anesthesia plan was to use moderate sedation / analgesia (conscious sedation). Immediately prior to administration of medications, the patient was re-assessed for adequacy to receive sedatives. The heart rate, respiratory rate, oxygen saturations, blood pressure, adequacy of pulmonary ventilation, and response to care were monitored throughout the procedure. The physical status of the patient was re-assessed after the procedure. After I obtained informed consent, the scope was passed under direct vision. Throughout the procedure, the patient's blood pressure, pulse, and oxygen saturations were monitored continuously. The Colonoscope was introduced through the anus and advanced to the cecum, identified by appendiceal orifice and ileocecal valve. The colonoscopy was performed without difficulty. The patient tolerated the procedure well. The quality of the bowel preparation was fair. The ileocecal valve, appendiceal orifice, and rectum were photographed. Scope In: 12:42:10 PM Scope Withdrawal Time 0 hours 11 minutes 11 seconds Scope Out: 1:00:55 PM Total Procedure Duration Time 0 hours 18 minutes 45 seconds Findings: The perianal and digital rectal examinations were normal. Multiple small and large-mouthed diverticula were found in the recto-sigmoid colon, sigmoid colon and descending colon. A tattoo was seen in the sigmoid colon. A post-polypectomy scar was found at the tattoo site. There was no evidence of residual polyp tissue. Biopsies were taken with a cold forceps for histology. Verification of patient identification for the specimen was done. Estimated blood loss was minimal. Stool was found in the rectum, in the recto-sigmoid colon, in the transverse colon, in the ascending colon and in the cecum. Impression: - Preparation of the colon was fair. - Diverticulosis in the recto-sigmoid colon, in the sigmoid colon and in the descending colon. - A tattoo was seen in the sigmoid colon. A post-polypectomy scar was found at the tattoo site. There was no evidence of residual polyp tissue. Biopsied. - Stool in the rectum, in the recto-sigmoid colon, in the transverse colon, in the ascending colon and in the cecum. Recommendation: - Discharge patient to home. - Resume previous diet. - Continue present medications. - Await pathology results. - Repeat colonoscopy in 1 year for surveillance. Procedure Code(s): --- Professional --- 86068, Colonoscopy, flexible; with biopsy, single or multiple CPT copyright 2021 [employer]. All rights reserved. The codes documented in this report are preliminary and upon certified forklift operator review may be revised to meet current compliance requirements. Wilton Javier DO 08/23/2023 1:08:40 PM This report has been signed electronically. Number of Addenda: 0 Note Initiated On: 08/23/2023 12:36 PM
--- NOTE | 2023-08-23 13:09 | OP.CCLET_ITS ---
08/23/2023 Vera Lucas [address] [place] [address] Re : Colonoscopy procedure for Kenney Marily Dear Dr. Lucas This procedure was performed on Wednesday, August 23, 2023. My impressions and recommendations are as follows: Impressions : - Preparation of the colon was fair. - Diverticulosis in the recto-sigmoid colon, in the sigmoid colon and in the descending colon. - A tattoo was seen in the sigmoid colon. A post-polypectomy scar was found at the tattoo site. There was no evidence of residual polyp tissue. Biopsied. - Stool in the rectum, in the recto-sigmoid colon, in the transverse colon, in the ascending colon and in the cecum. Recommendations : - Discharge patient to home. - Resume previous diet. - Continue present medications. - Await pathology results. - Repeat colonoscopy in 1 year for surveillance. My findings are described in the full procedure note, which is enclosed. If I can be of further assistance, please feel free to contact me at . Sincerely, Wilton Javier, 08/23/2023 1:08:40 PM This report has been signed electronically.
[2023-08-23 13:10] VITALS: BP 166/76; BP 167/77; PULSE 60; RESP 16; O2SAT 99
[2023-08-23 13:15] VITALS: BP 167/77; BP 169/83; PULSE 62; RESP 16; TEMP 36.9; O2SAT 100
[2023-08-23 13:38] VITALS: BP 167/77
== END 2023-08-23 13:50 | disposition home or self-care (01) ==
LOC: EN 10:29 → AC 10:29
PROVIDERS: PCP Internal Medicine; Referring Provider Internal Medicine; Visit Provider Internal Medicine Gastroenterology
PROC: 0DJD8ZZ Inspection of Lower Intestinal Tract, Via Natural or Artificial Opening Endoscopic (ICD-10-PCS; CPT 45378; principal; 2023-08-23 11:40)
DX: Z12.11 Encounter for screening for malignant neoplasm of colon (principal); Z79.4 Long term (current) use of insulin; N18.32 Chronic kidney disease, stage 3b; K57.30 Diverticulosis of large intestine without perforation or abscess without bleeding; Z86.010 Personal history of colon polyps; D50.9 Iron deficiency anemia, unspecified; K63.89 Other specified diseases of intestine; Z79.899 Other long term (current) drug therapy; Z79.82 Long term (current) use of aspirin; I12.9 Hypertensive chronic kidney disease with stage 1 through stage 4 chronic kidney disease, or unspecified chronic kidney disease; E78.00 Pure hypercholesterolemia, unspecified
CPT/HCPCS: 45380; 82962; 88305; J7120; J2405

== ENCOUNTER 2023-12-25 19:26 | Inpatient (IN) | payer MEDICAID, SELFPAY ==
[2023-12-25] VITALS (13 sets, daily range): BP systolic 169–202; BP diastolic 64–81; PULSE 65–68; RESP 16–21; TEMP 36.5–36.8; O2SAT 97–99; BMI 23.3; BMI 22.3
--- NOTE | 2023-12-25 20:20 | EKG12_ITS ---
Test Reason : DYSRHYTHMIA Blood Pressure : / mmHG Vent. Rate : 064 BPM Atrial Rate : 000 BPM P-R Int : 000 ms QRS Dur : 094 ms QT Int : 430 ms P-R-T Axes : 000 -18 -04 degrees QTc Int : 443 ms NSR WITH 1ST DEGREE AV BLOCK Minimal voltage criteria for LVH, may be normal variant ( R in aVL ) Nonspecific ST and T wave abnormality Abnormal ECG Confirmed by Gigi Rosario ([id number]), newspaper editor BROCK KWONG ([id number]) on 12/26/2023 8:08:44 AM Referred By: Confirmed By:Gigi Rosario
--- NOTE | 2023-12-25 20:23 | EDS_ITS ---
HPI <ANNIA Ho - Last Filed: 12/25/23 22:12> History of Present Illness Chief Complaint: Hypertension Narrative Narrative: Patient presenting today due to generalized weakness, fatigue, and overall not feeling well. He reports concerns for dehydration. He reports that he has been having around 3 episodes of loose stools daily for the past 2 weeks. He denies any history of C. difficile or recent antibiotic use. He has felt short of breath with exertion for the past few weeks. He reports that he has a hard time even walking to his sidewalk without feeling significantly short of breath and lightheaded. He reports intermittent lower abdominal pain over the past few weeks. He does have a history of stage IV CKD following with nephrology, iron deficiency anemia, hypertension, hyperlipidemia, and pacemaker placement. [facility] <ANNIA Ho - Last Filed: 12/25/23 22:12> [facility] Medical History Kidney failure Need for home health care Insulin dependent diabetes mellitus Leg cramps History of pain when walking Wears glasses Ambulates with cane High cholesterol Stroke/cerebrovascular accident Syncope Dietary restriction History of edema History of echocardiogram History of stress test Cardiology follow-up encounter Irregular heart beat Former smoker DVT (deep venous thrombosis) Pacemaker Diabetes mellitus Paroxysmal supraventricular tachycardia (06/2017) Complete heart block (02/2019) Essential (primary) hypertension Sick sinus syndrome Sinus pause CVA (cerebral vascular accident) (02/2019) Tachyarrhythmia HLD (hyperlipidemia) Home Medications ?Medication ?Instructions ?Recorded ?Last Taken ?Type atorvastatin 80 mg tablet 80 mg PO DAILY cholesterol 03/04/19 08/22/23 History multivitamin (Daily-Yousuf tablet) 1 tab PO DAILY SUPPLEMENT 03/11/22 12/25/23 History ascorbic acid (vitamin C) 500 mg 500 mg PO BID 30 days #60 tabs 03/22/22 08/22/23 Rx tablet (Vitamin C) clopidogrel 75 mg tablet 75 mg PO DAILY 03/14/23 08/16/23 History aspirin 81 mg tablet,delayed 81 mg PO DAILY 04/07/23 Unknown History release insulin glargine 100 unit/mL (3 20 unit subcut .QAM DIABETES 04/07/23 08/22/23 History mL) subcutaneous pen (Lantus Solostar U-100 Insulin) trazodone 50 mg tablet 50 mg PO QHS 04/07/23 12/24/23 History insulin lispro 100 unit/mL 2 unit subcut TID 05/25/23 08/22/23 History subcutaneous pen hydralazine 50 mg tablet 50 mg PO DAILY 06/29/23 Unknown History amlodipine 10 mg tablet 10 mg PO DAILY 08/21/23 Unknown History metoprolol succinate 100 mg 100 mg PO QHS 08/21/23 Unknown History tablet,extended release 24 hr lactulose 10 gram/15 mL oral 10 g (15 mL) PO BID 30 days #900 mL 09/12/23 Unknown Rx solution melatonin 5 mg capsule 5 mg PO .qs PRN Sleep aid 12/25/23 12/24/23 History Allergy/AdvReac Type Severity Reaction Status Date / Time metformin (From Glucophage) AdvReac Diarrhea Verified 12/25/23 19:38 Family History Mother Cancer Father Heart disease Hypertension Myocardial infarction Surgical History History of hand surgery History of carpal tunnel release History of permanent cardiac pacemaker placement (03/05/19) Social History household members: none Smoking Status: Former smoker Smokeless tobacco user: other alcohol intake: never substance use type: does not use ROS <ANNIA Ho - Last Filed: 12/25/23 22:12> ROS ED Constitutional Constitutional ED: Denies chills or fever(s) Cardiovascular Cardiovascular: Denies chest pain Respiratory/Chest Respiratory/Chest: Reports dyspnea on exertion; Denies cough Gastrointestinal Gastrointestinal: Reports abdominal pain and diarrhea; Denies nausea or vomiting Genitourinary Genitourinary ED: Denies dysuria, hematuria or urinary urgency Musculoskeletal Musculoskeletal: Denies arthralgias or myalgias Integumentary Denies rash Neurologic Neurologic: Reports weakness EXAM <ANNIA Ho - Last Filed: 12/25/23 22:12> Physical Exam Const Vital Signs: 12/25/23 19:29 12/25/23 19:38 12/25/23 19:58 Temperature 98.2 F Temperature Source Oral Pulse Rate 67 65 Respiratory Rate 18 19 H Respiratory Effort Normal Respiratory Pattern Normal Blood Pressure 180/81 H Blood Pressure Mean 114 Pulse Ox 98 98 Oxygen Delivery Method Room Air 12/25/23 20:15 12/25/23 20:20 12/25/23 20:45 Temperature Temperature Source Pulse Rate 65 Respiratory Rate 21 H Respiratory Effort Respiratory Pattern Blood Pressure 169/72 H 182/71 H Blood Pressure Mean 101 104 Pulse Ox Oxygen Delivery Method Room Air 12/25/23 21:15 12/25/23 21:16 12/25/23 21:45 Temperature Temperature Source Pulse Rate Respiratory Rate Respiratory Effort Respiratory Pattern Blood Pressure 185/68 H 186/78 H Blood Pressure Mean 103 108 Pulse Ox 98 Oxygen Delivery Method 12/25/23 21:46 12/25/23 22:01 12/25/23 22:15 Temperature Temperature Source Pulse Rate Respiratory Rate Respiratory Effort Respiratory Pattern Blood Pressure 202/76 H Blood Pressure Mean 114 Pulse Ox 98 99 98 Oxygen Delivery Method 12/25/23 22:45 Temperature Temperature Source Pulse Rate Respiratory Rate Respiratory Effort Respiratory Pattern Blood Pressure 169/73 H Blood Pressure Mean 101 Pulse Ox 98 Oxygen Delivery Method Positive well nourished, well developed and no apparent distress General Appearance ED: well developed HEENT Reports normocephalic, head/scalp atraumatic and dry mucous membranes Mouth ED: Yes dry mucous membranes Mouth: dry mucous membranes Eyes PERRL and EOMs intact bilaterally Neck full ROM and supple Chest Wall inspection of chest normal Resp normal respiratory effort and clear to auscultation bilaterally Cardio regular rate and regular rhythm GI soft to palpation, non-tender, non-distended and no masses GI Narrative: Normal sphincter tone, brown stool noted. Back/Spine normal ROM and normal to inspection Extremity normal to inspection and full ROM Neuro oriented x3, CN's II-XII intact bilaterally, moves all extremities, no focal motor deficits and no sensory deficits noted Sensorium / Orientation: awake and alert Psych mental status grossly normal and thought process normal Skin no rashes or lesions noted and no wounds <Dr. Rodney Griffith, DO - Last Filed: 12/26/23 00:26> Physical Exam Const Vital Signs: 12/25/23 19:29 12/25/23 19:38 12/25/23 19:58 Temperature 98.2 F Temperature Source Oral Pulse Rate 67 65 Respiratory Rate 18 19 H Respiratory Effort Normal Respiratory Pattern Normal Blood Pressure 180/81 H Blood Pressure Mean 114 Pulse Ox 98 98 Oxygen Delivery Method Room Air 12/25/23 20:15 12/25/23 20:20 12/25/23 20:45 Temperature Temperature Source Pulse Rate 65 Respiratory Rate 21 H Respiratory Effort Respiratory Pattern Blood Pressure 169/72 H 182/71 H Blood Pressure Mean 101 104 Pulse Ox Oxygen Delivery Method Room Air 12/25/23 21:15 12/25/23 21:16 12/25/23 21:45 Temperature Temperature Source Pulse Rate Respiratory Rate Respiratory Effort Respiratory Pattern Blood Pressure 185/68 H 186/78 H Blood Pressure Mean 103 108 Pulse Ox 98 Oxygen Delivery Method 12/25/23 21:46 12/25/23 22:01 12/25/23 22:15 Temperature Temperature Source Pulse Rate Respiratory Rate Respiratory Effort Respiratory Pattern Blood Pressure 202/76 H Blood Pressure Mean 114 Pulse Ox 98 99 98 Oxygen Delivery Method 12/25/23 22:45 Temperature Temperature Source Pulse Rate Respiratory Rate Respiratory Effort Respiratory Pattern Blood Pressure 169/73 H Blood Pressure Mean 101 Pulse Ox 98 Oxygen Delivery Method [facility] <ANNIA Ho - Last Filed: 12/25/23 22:12> [facility] Narrative Medical decision making narrative: Patient presenting with generalized weakness and multiple vague complaints that have been going on over the past few weeks. He is pale appearing, history of iron deficiency anemia and has been worked up by Dr. Javier in the past for GI bleeding. GI felt that this was likely due to his chronic kidney disease. He does see nephrology. His last BUN and creatinine were 63 and 3.88 performed as an outpatient with the [facility] on 12/13/2023. Here, his creatinine is 4.19 and BUN is 61. He does not receive dialysis. He was given IV fluids here. CBC today shows a hemoglobin of 7.8, On 12/12 his H&H was 8.8 and 26.9. His troponin is within normal limits. UA negative for UTI. Chest x-ray negative for any acute findings. I do think he would benefit from admission to the hospital. I will speak with the hospitalist who recommends obtaining a CT scan of the abdomen and pelvis to rule out colitis and other etiology. He will be admitted in stable condition for his worsening anemia, acute on chronic renal failure, weakness, and dehydration. Lab Data Attestation: I reviewed the patient's lab results. Labs: Laboratory Results - last 24 hr 12/25/23 12/25/23 20:23 20:42 WBC 6.4 RBC 2.78 L Hgb 7.8 L Hct 24.5 L MCV 88.1 MCH 28.1 MCHC 31.8 L RDW Std Deviation 40.9 RDW Coeff of Harry 12.6 Plt Count 211 MPV 10.0 Immature Gran % (Auto) 0.600 Neut % (Auto) 57.6 Lymph % (Auto) 31.6 [place] % (Auto) 7.7 Eos % (Auto) 2.2 Baso % (Auto) 0.3 Absolute Neuts (auto) 3.7 Absolute Lymphs (auto) 2.02 Nucleated RBC % 0 Sodium 140 Potassium 4.7 Chloride 110 H Carbon Dioxide 23.0 Anion Gap 7 BUN 61 H Creatinine 4.19 H Estim Creat Clear Calc 17.34 Est GFR (MDRD) Af Amer 18 L Est GFR (MDRD) Non-Af 15 L BUN/Creatinine Ratio 14.6 Glucose 134 H Calcium 8.9 Total Bilirubin 0.30 AST 10 L ALT 30 Alkaline Phosphatase 91 Troponin I High Sens 12 Total Protein 6.5 Albumin 3.4 Globulin 3.1 Albumin/Globulin Ratio 1.1 Urine Color Yellow Urine Clarity Clear Urine pH 6.5 Ur Specific [place] 1.015 Urine Protein 500 H Urine Glucose (UA) 100 H Urine Ketones Negative Urine Occult Blood 10 H Urine Nitrite Negative Urine Bilirubin Negative Urine Urobilinogen Normal Ur Leukocyte Esterase Negative Urine RBC 0-5 SEEN Urine WBC 0 SEEN Ur Squamous Epith Cells 0 SEEN Urine Bacteria 0 SEEN Urine Mucus 0 SEEN Radiography X-Ray: Read by ED Physician Diagnostic Testing: Clinical Impression(s) from Imaging Studies Chest X-Ray 12/25/23 20:53 IMPRESSION: No active disease. Electronically Signed: Danny Mcdaniel MD at 21:18 EDT , Abdomen/Pelvis CT 12/25/23 21:50 IMPRESSION: 1. 2 small nonobstructing right renal stones. 2. Cholelithiasis. Electronically Signed: Danny Mcdaniel MD at 22:35 EDT , EKG Initial EKG: Comments: 64 bpm, sinus rhythm, no ST elevation, reviewed and interpreted by attending ED physician <Dr. Rodney Griffith, DO - Last Filed: 12/26/23 00:26> [facility] Narrative Medical decision making narrative: Patient presenting with generalized weakness and multiple vague complaints that have been going on over the past few weeks. He is pale appearing, history of iron deficiency anemia and has been worked up by Dr. Javier in the past for GI bleeding. GI felt that this was likely due to his chronic kidney disease. He does see nephrology. His last BUN and creatinine were 63 and 3.88 performed as an outpatient with the [facility] on 12/13/2023. Here, his creatinine is 4.19 and BUN is 61. He does not receive dialysis. He was given IV fluids here. CBC today shows a hemoglobin of 7.8, On 12/12 his H&H was 8.8 and 26.9. His troponin is within normal limits. UA negative for UTI. Chest x-ray negative for any acute findings. I do think he would benefit from admission to the hospital. I will speak with the hospitalist who recommends obtaining a CT scan of the abdomen and pelvis to rule out colitis and other etiology. He will be admitted in stable condition for his worsening anemia, acute on chronic renal failure, weakness, and dehydration. I have personally performed a face to face assessment of the patient and have reviewed the JAMI Note. I performed a substantive portion of the visit including all aspects of the following. My dacosta findings include: History is 68-year-old male presenting to the emergency room with generalized weakness. Patient has chronic anemia chronic kidney disease. He has recently had endoscopy and colonoscopy. Patient states he feels dehydrated. Exam is pale frail. Slightly hypertensive. No focal deficits. Medical Decison Making patient with lower than expected hemoglobin at 7.8. His BUN/creatinine elevated off baseline. Urinalysis with 500 protein no overt infection. Hemoccult is negative. Chest x-ray on my interpretation is no acute process. CT scan of the abdomen pelvis was obtained which is essentially negative. Patient may benefit from a blood transfusion which may also help his weakness and possibly renal status. History & Record Review Discussion w/independent historian: Patient Lab Data Labs: Laboratory Results - last 24 hr 12/25/23 12/25/23 20:23 20:42 WBC 6.4 RBC 2.78 L Hgb 7.8 L Hct 24.5 L MCV 88.1 MCH 28.1 MCHC 31.8 L RDW Std Deviation 40.9 RDW Coeff of Harry 12.6 Plt Count 211 MPV 10.0 Immature Gran % (Auto) 0.600 Neut % (Auto) 57.6 Lymph % (Auto) 31.6 [place] % (Auto) 7.7 Eos % (Auto) 2.2 Baso % (Auto) 0.3 Absolute Neuts (auto) 3.7 Absolute Lymphs (auto) 2.02 Nucleated RBC % 0 Sodium 140 Potassium 4.7 Chloride 110 H Carbon Dioxide 23.0 Anion Gap 7 BUN 61 H Creatinine 4.19 H Estim Creat Clear Calc 17.34 Est GFR (MDRD) Af Amer 18 L Est GFR (MDRD) Non-Af 15 L BUN/Creatinine Ratio 14.6 Glucose 134 H Calcium 8.9 Total Bilirubin 0.30 AST 10 L ALT 30 Alkaline Phosphatase 91 Troponin I High Sens 12 Total Protein 6.5 Albumin 3.4 Globulin 3.1 Albumin/Globulin Ratio 1.1 Urine Color Yellow Urine Clarity Clear Urine pH 6.5 Ur Specific [place] 1.015 Urine Protein 500 H Urine Glucose (UA) 100 H Urine Ketones Negative Urine Occult Blood 10 H Urine Nitrite Negative Urine Bilirubin Negative Urine Urobilinogen Normal Ur Leukocyte Esterase Negative Urine RBC 0-5 SEEN Urine WBC 0 SEEN Ur Squamous Epith Cells 0 SEEN Urine Bacteria 0 SEEN Urine Mucus 0 SEEN Radiography Diagnostic Testing: Clinical Impression(s) from Imaging Studies Chest X-Ray 12/25/23 20:53 IMPRESSION: No active disease. Electronically Signed: Danny Mcdaniel MD at 21:18 EDT , Abdomen/Pelvis CT 12/25/23 21:50 IMPRESSION: 1. 2 small nonobstructing right renal stones. 2. Cholelithiasis. Electronically Signed: Danny Mcdaniel MD at 22:35 EDT , EKG Initial EKG: Attestation: I personally reviewed and interpreted this EKG as follows: Management Discussion w/another healthcare provider: Hospitalist (Dr. Antunez) Discharge Plan Dx/Rx/DC Orders Clinical Impression: Acute on chronic kidney failure, Essential (primary) hypertension, Anemia, Weakness, Diarrhea, Acute dehydration Disposition Disposition: Acute Care Hospital [facility] Discharge Date/Time: 12/25/23 23:33
[2023-12-25 20:29] LABS: Absolute Lymphocyte Count 2.02 X10^3/uL (0.83-4.51); Absolute Neutrophil Count 3.7 X10^3/uL (2.0-7.7); Basophil# 0.02 X10^3/uL; Basophil% 0.3 % (0-1); Eosinophil# 0.14 X10^3/uL; Eosinophils% 2.2 % (0-5); Hematocrit 24.5 % (40-54); Hemoglobin 7.8 g/dL (13.0-16.5); Lymphocyte # 2.02 X10^3/ul (0.83-4.51); Lymphocyte % 31.6 % (19-41); Mean Corp Hgb Conc 31.8 g/dL (32-36); Mean Corpuscular Hgb 28.1 pg (27.0-32.0); Mean Corpuscular Volume 88.1 fL (80-94); Monocyte# 0.49 X10^3/uL; Monocyte% 7.7 % (0-10); NRBC Flagged by Analyzer 0 % (0-5); Neutrophil # 3.69 X10^3/uL (2.7-7.7); Neutrophil % 57.6 % (47-70); Platelet Count 211 K/mm3 (150-450); RBC Distribution Width CV 12.6 % (11.6-14.6); RBC Distribution Width SD 40.9 fl (35.1-43.9); Red Blood Count 2.78 M/mm3 (4.6-6.2); White Blood Count 6.4 K/mm3 (4.4-11.0)
[2023-12-25 20:50] LABS: Bacteria 0 SEEN /hpf (None Seen); Mucous, Urine 0 SEEN /hpf (<or=2+); Squamous Epithelial Cells - UA 0 SEEN /hpf (0-5); White Blood Cells 0 SEEN /hpf (0-5)
--- NOTE | 2023-12-25 20:53 | RAD_ITS ---
STUDY: X-RAY CHEST REASON FOR EXAM: Male, 68 years old. SOB TECHNIQUE: PA and lateral views of the chest. COMPARISON: 07/23/2023 FINDINGS: Left subclavian pacemaker. The lungs are clear and expanded. There is no demonstrated pleural abnormality. Normal size heart. Normal mediastinum and merna. Normal visualized pulmonary arteries. Normal visualized aortic arch and descending thoracic aorta. Normal visualized thoracic spine. Normal visualized ribs, clavicles, and shoulders. There is no demonstrated abnormality of the visualized soft tissue structures of the upper abdomen. RAD/Chest PA and Lateral IMPRESSION: No active disease. Electronically Signed: Danny Mcdaniel MD at 21:18 EDT ,
[2023-12-25] MEDS: 0.9% Normal Saline (1000mL) 1,000 ML 999 ML IV (20:56)
[2023-12-25 21:02] LABS: Color, Urine Yellow (Yellow); Glucose, Dipstick 100 mg/dl (Normal); Ketone-Dipstick Negative (Negative); Leukocyte Esterase-Dipstick Negative /ul (Negative); Nitrite-Dipstick Negative (Negative); Occult Blood-Urine 10 /ul (Negative); Protein-Dipstick 500 mg/dl (Negative); Specific Gravity, Urine 1.015 (1.002-1.030); Urine Bilirubin Dipstick Negative (Negative); Urine Clarity Clear (Clear); Urine Urobilinogen Normal (Normal); Urine pH 6.5 (5.0 - 8.0)
[2023-12-25 21:25] LABS: ALB/GLOB Ratio 1.1 RATIO (0.9-2.4); AST(SGOT) 10 U/L (15-37); Alanine Aminotransfer ALT/SGPT 30 U/L (16-61); Albumin, Serum 3.4 g/dL (3.2-5.0); Alkaline Phosphatase 91 U/L (45-117); Anion Gap 7 (5-15); BUN 61 mg/dL (7-18); BUN/Creat Ratio 14.6 RATIO (10-20); Calcium,Total 8.9 mg/dL (8.5-10.1); Chloride 110 mmol/L (98-107); Creatinine, Serum 4.19 mg/dL (0.70-1.30); EST Glomerular Filtration Rate 15 mL/min (>60); Est Glom Filt Rate - Afr Amer 18 mL/min (>60); Estimated Creatinine Clearance 17.34 ml/min; Globulin 3.1 g/dL (2.2-4.2); Glucose 134 mg/dL (74-106); Potassium 4.7 mmol/L (3.5-5.1); Protein, Total 6.5 g/dL (6.4-8.2); Sodium Level 140 mmol/L (136-145); Troponin-I HS 12 pg/mL (3.0-78.0)
[2023-12-25 21:31] LABS: Red Blood Cells-Urine 0-5 SEEN /hpf (0-5)
--- NOTE | 2023-12-25 21:47 | PCM.HP.STD ---
[facility] - General General Date of Admission: 12/25/23 Date of Service: 12/25/23 Chief Complaint: Generalized Weakness, Fatigue and Loose Stools. 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 Mr. Julien reports his symptoms began approximately 2 weeks prior to admission with 3 episodes of loose stools daily. He denies recent antibiotic use but he has noted worsening dyspnea on exertion in that timeframe. He now reports that he has had a hard time walking due to the sidewalk without feeling significantly short of breath and lightheaded. He also admits to intermittent lower abdominal pain over the past few weeks and he states he feels like he is dehydrated. He denies associated fever, chills nausea, vomiting, dysuria, arthralgia or myalgias. In the ER he was noted to have a significantly elevated serum creatinine of 4.19 mg/dL with a BUN of 61 mg/dL (up from his baseline serum creatinine of 3.35 mg/dL in 06/2023) likely due to dehydration from diarrhea complicated by slightly worsening chronic anemia with hemoglobin of 7.8 g/dL present on admission (down from his baseline of 8.8 g/dL on 12/13/2023) compounded by uncontrolled hypertension with blood pressure of 180/81 mmHg present on admission and he was then admitted to the general medical floor for ongoing care for stay that is expected to be greater than 2 midnights. [facility] Medical History Kidney failure Need for home health care Insulin dependent diabetes mellitus Leg cramps History of pain when walking Wears glasses Ambulates with cane High cholesterol Stroke/cerebrovascular accident Syncope Dietary restriction History of edema History of echocardiogram History of stress test Cardiology follow-up encounter Irregular heart beat Former smoker DVT (deep venous thrombosis) Pacemaker Diabetes mellitus Paroxysmal supraventricular tachycardia (06/2017) Complete heart block (02/2019) Essential (primary) hypertension Sick sinus syndrome Sinus pause CVA (cerebral vascular accident) (02/2019) Tachyarrhythmia HLD (hyperlipidemia) Home Medications ?Medication ?Instructions ?Recorded ?Last Taken ?Type atorvastatin 80 mg tablet 80 mg PO DAILY cholesterol 03/04/19 08/22/23 History multivitamin (Daily-Yousuf tablet) 1 tab PO DAILY SUPPLEMENT 03/11/22 12/25/23 History ascorbic acid (vitamin C) 500 mg 500 mg PO BID 30 days #60 tabs 03/22/22 08/22/23 Rx tablet (Vitamin C) clopidogrel 75 mg tablet 75 mg PO DAILY 03/14/23 08/16/23 History aspirin 81 mg tablet,delayed 81 mg PO DAILY 04/07/23 Unknown History release insulin glargine 100 unit/mL (3 20 unit subcut .QAM DIABETES 04/07/23 08/22/23 History mL) subcutaneous pen (Lantus Solostar U-100 Insulin) trazodone 50 mg tablet 50 mg PO QHS 04/07/23 12/24/23 History insulin lispro 100 unit/mL 2 unit subcut TID 05/25/23 08/22/23 History subcutaneous pen hydralazine 50 mg tablet 50 mg PO DAILY 06/29/23 Unknown History amlodipine 10 mg tablet 10 mg PO DAILY 08/21/23 Unknown History metoprolol succinate 100 mg 100 mg PO QHS 08/21/23 Unknown History tablet,extended release 24 hr lactulose 10 gram/15 mL oral 10 g (15 mL) PO BID 30 days #900 mL 09/12/23 Unknown Rx solution melatonin 5 mg capsule 5 mg PO .qs PRN Sleep aid 12/25/23 12/24/23 History Allergy/AdvReac Type Severity Reaction Status Date / Time metformin (From Glucophage) AdvReac Diarrhea Verified 12/25/23 19:38 Family History Mother Cancer Father Heart disease Hypertension Myocardial infarction Surgical History History of hand surgery History of carpal tunnel release History of permanent cardiac pacemaker placement (03/05/19) Social History household members: none Smoking Status: Former smoker Smokeless tobacco user: other alcohol intake: never substance use type: does not use ROS ROS Narrative Review of systems: General: Patient denies fever or chills. HENT: Denies headache, denies stuffy nose, denies sore throat EYES: Denies changes in vision or discharge from eyes. Resp: Denies cough, denies shortness of breath Cardiac: Denies chest pain, palpitations or heart racing. GI: Patient admits to generalized cramping abdominal pain with 3 loose stools per day for the past 2 weeks as per HPI. He denies nausea or vomiting. : Denies changes in urination Extremity: Patient has chronic lower extremity edema. Musculoskeletal: Patient admits to generalized weakness and overall feeling unwell but denies arthralgias or myalgias. Neuro: Patient denies headache, paresthesias or focal neurologic weakness. Heme: Denies any bleeding or bruising Skin: Denies rashes Psychiatric: No complaints voiced related uncontrolled depression or anxiety. Endocrine: No polyuria, polydipsia or polyphagia. The rest of the 14 point ROS was negative except for positives in HPI. Vital Signs Vital Signs Vital Signs: 12/25/23 19:29 12/25/23 19:38 12/25/23 20:20 Temperature 98.2 F Temperature Source Oral Pulse Rate 67 Respiratory Rate 18 Respiratory Effort Normal Respiratory Pattern Normal Blood Pressure 180/81 H Blood Pressure Mean 114 Pulse Ox 98 Oxygen Delivery Method Room Air Room Air Weight Weight: 157 lb 13.616 oz Body Mass Index (BMI) 23.3 Physical Exam Const alert, oriented x3, no apparent distress and average body habitus General Appearance: cooperative HEENT normocephalic, head/scalp atraumatic and hearing grossly normal bilaterally HEENT Narrative: Mucous membranes dry. Eyes PERRL and EOMs intact bilaterally Neck no lymphadenopathy and supple Resp normal respiratory effort, no retractions, no use of accessory muscles and clear to auscultation bilaterally Cardio regular rate and regular rhythm GI normal to inspection, nondistended, normoactive bowel sounds, soft to palpation, non-tender and non-distended Extremity normal to inspection and full ROM Skin Skin Narrative: Patient has no evidence of abscess or rash. Neuro oriented x3, CN's II-XII intact bilaterally, moves all extremities and no focal motor deficits Sensorium / Orientation: awake, alert, oriented to person, oriented to place and oriented to time Speech: speech normal Psych affect normal Results Medical Records Data Attestation: I reviewed the patient's medical records Lab / Micro Data Attestation: I reviewed the patient's lab results. 12/26/23 05:12 12/25/23 20:23 Labs: Laboratory Results - last 24 hr 12/25/23 20:23: WBC 6.4, RBC 2.78 L, Hgb 7.8 L, Hct 24.5 L, MCV 88.1, MCH 28.1, MCHC 31.8 L, RDW Std Deviation 40.9, RDW Coeff of Harry 12.6, Plt Count 211, MPV 10.0, Immature Gran % (Auto) 0.600, Neut % (Auto) 57.6, Lymph % (Auto) 31.6, [place] % (Auto) 7.7, Eos % (Auto) 2.2, Baso % (Auto) 0.3, Absolute Neuts (auto) 3.7, Absolute Lymphs (auto) 2.02, Nucleated RBC % 0, Sodium 140, Potassium 4.7, Chloride 110 H, Carbon Dioxide 23.0, Anion Gap 7, BUN 61 H, Creatinine 4.19 H, Estim Creat Clear Calc 17.34, Est GFR (MDRD) Af Amer 18 L, Est GFR (MDRD) Non-Af 15 L, BUN/Creatinine Ratio 14.6, Glucose 134 H, Calcium 8.9, Total Bilirubin 0.30, AST 10 L, ALT 30, Alkaline Phosphatase 91, Troponin I High Sens 12, Total Protein 6.5, Albumin 3.4, Globulin 3.1, Albumin/Globulin Ratio 1.1 12/25/23 20:42: Urine Color Yellow, Urine Clarity Clear, Urine pH 6.5, Ur Specific [place] 1.015, Urine Protein 500 H, Urine Glucose (UA) 100 H, Urine Ketones Negative, Urine Occult Blood 10 H, Urine Nitrite Negative, Urine Bilirubin Negative, Urine Urobilinogen Normal, Ur Leukocyte Esterase Negative, Urine RBC 0-5 SEEN, Urine WBC 0 SEEN, Ur Squamous Epith Cells 0 SEEN, Urine Bacteria 0 SEEN, Urine Mucus 0 SEEN Imaging Radiology Impression Chest X-Ray 12/25/23 20:53 IMPRESSION: No active disease. Electronically Signed: Danny Mcdaniel MD at 21:18 EDT , [facility] Imaging Services [address] [place] [id number] Abdomen/Pelvis without Cont MR#: [id number] Acct: [id number] Name: LOU JULIEN Rep #: [id number] : 1955 68 From: Danny Mcdaniel MD PCP: Dr. Vear Lucas MD Status: [facility] ER Study: Abdomen/Pelvis without Cont Date of Exam: 12/25/23 Exam# [id number] Ordering Dr: Kia Sheppard PA STUDY: CT ABDOMEN AND PELVIS WITHOUT CONTRAST REASON FOR EXAM: Male, 68 years old. abdominal pain, diarrhea RADIATION DOSAGE (If Supplied By Facility): CTDIvol = ( 6.33 ) mGy, DLP = ( 349.55 ) mGycm TECHNIQUE: Transaxial images were obtained from the dome of the diaphragm to the symphysis pubis without oral contrast, and without intravenous contrast. Sagittal and coronal images were reconstructed. Individualized dose optimization techniques were used for this CT. COMPARISON: 06/29/2023 FINDINGS: The visualized lung bases are unremarkable. The visualized portions of the heart are within normal limits. Elevated left hemidiaphragm. Normal liver. There are multiple gallstones. Normal spleen. Normal pancreas. Normal bilateral adrenal glands. 2 small nonobstructing right renal stones. No hydronephrosis, ureteral stone, ureteral dilatation. Normal left kidney. Normal visualized stomach. Normal small intestine. Normal colon. The appendix is visualized and appears normal. There is diffuse atherosclerotic calcification of the abdominal aorta, without a demonstrated aneurysm. Normal inferior vena cava. Normal retroperitoneum. Normal urinary bladder. Normal abdominal wall. Normal osseous structures. CT/Abdomen/Pelvis without Cont IMPRESSION: 1. 2 small nonobstructing right renal stones. 2. Cholelithiasis. Electronically Signed: Danny Mcdaniel MD at 22:35 EDT , CC: Dr. Vera Lucas MD; ANNIA Ho ~ Register Of Wills: Signed Assessment & Plan Assessment/Plan (1) Acute dehydration: (2) Diarrhea: QUALIFIERS: Diarrhea type: presumed infectious Qualified Code(s): R19.7 - Diarrhea, unspecified (3) Acute on chronic kidney failure: QUALIFIERS: Acute renal failure type: unspecified Chronic kidney disease stage: stage 4 (severe) Qualified Code(s): N17.9 - Acute kidney failure, unspecified; N18.4 - Chronic kidney disease, stage 4 (severe) (4) High grade dysplasia in colonic adenoma: (5) Anemia: QUALIFIERS: Anemia type: unspecified type Qualified Code(s): D64.9 - Anemia, unspecified PLAN: Plan 1. Significantly elevated serum creatinine of 4.19 mg/dL with a BUN of 61 mg/dL (up from his baseline serum creatinine of 3.35 mg/dL in 06/2023) likely due to dehydration CKD; stage IV - Admit to general medical floor. Gently volume resuscitate and recheck BMP in the a.m. to ensure improvement. Check CT scan of abdomen pelvis to evaluate for possible evidence of obstruction. Avoid potentially nephrotoxic agents. 2. 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 CT scan of abdomen pelvis to evaluate for possible evidence of colitis pending at this time. 3. Slightly worsening chronic anemia with hemoglobin of 7.8 g/dL present on admission (down from his baseline of 8.8 g/dL on 12/13/2023) in the setting of known JUDY complicating #1 & #2 - Noted. Hemoccult stools to evaluate for evidence of active bleeding. Check iron studies. Type and screen blood and transfuse for hemoglobin < 7 g/dL. 4. Uncontrolled hypertension with blood pressure of 180/81 mmHg present on admission compounding #1 - #3 - Continue home regimen plus give Hydralazine IV as needed for systolic blood pressure greater than 160 mmHg. 5. Hyperlipidemia - Resume statin. 6. DM-2; of unknown control with intolerance to metformin which causes diarrhea - ADA/Renal diet. FSBS q. AC/HS plus SSI. Check meal and A1c to objectively assess quality of diabetic control. 7. History of previous tobacco abuse (quit 1969) - Noted. 8. History of CVA (2021) - Noted. 9. History of TIA (2020) - Noted. 10. History of DVT - Noted. 11. History of leg cramps - Noted. 12. History of PSVT (2017) - Noted. 13. SSS; status post PPM (2018) - Noted. 14. Remote history of COVID-19 - Noted. 15. History of pneumonia - Noted. 16. History of gallbladder polyp - Noted. 17. Osteoarthritis - Give Tyelnol prn. 18. DVT prophylaxis - SCD's only until patient confirmed not to be bleeding. Total time: Approximately 75 minutes. Charges/Coding Visit Charges Inpatient E&M: 14454 Init Hosp L3
--- NOTE | 2023-12-25 21:50 | CT_ITS ---
STUDY: CT ABDOMEN AND PELVIS WITHOUT CONTRAST REASON FOR EXAM: Male, 68 years old. abdominal pain, diarrhea RADIATION DOSAGE (If Supplied By Facility): CTDIvol = ( 6.33 ) mGy, DLP = ( 349.55 ) mGycm TECHNIQUE: Transaxial images were obtained from the dome of the diaphragm to the symphysis pubis without oral contrast, and without intravenous contrast. Sagittal and coronal images were reconstructed. Individualized dose optimization techniques were used for this CT. COMPARISON: 06/29/2023 FINDINGS: The visualized lung bases are unremarkable. The visualized portions of the heart are within normal limits. Elevated left hemidiaphragm. Normal liver. There are multiple gallstones. Normal spleen. Normal pancreas. Normal bilateral adrenal glands. 2 small nonobstructing right renal stones. No hydronephrosis, ureteral stone, ureteral dilatation. Normal left kidney. Normal visualized stomach. Normal small intestine. Normal colon. The appendix is visualized and appears normal. There is diffuse atherosclerotic calcification of the abdominal aorta, without a demonstrated aneurysm. Normal inferior vena cava. Normal retroperitoneum. Normal urinary bladder. Normal abdominal wall. Normal osseous structures. CT/Abdomen/Pelvis without Cont IMPRESSION: 1. 2 small nonobstructing right renal stones. 2. Cholelithiasis. Electronically Signed: Danny Mcdaniel MD at 22:35 EDT ,
[2023-12-25] MEDS: hydrALAZINE 20 MG/ML Vial 10 MG IV (22:25)
[2023-12-26] VITALS (7 sets, daily range): BP systolic 149–165; BP diastolic 69–72; PULSE 65–79; RESP 15–18; TEMP 36.7–36.8; O2SAT 97–98; BMI 19.7
[2023-12-26] MEDS: 0.9% Normal Saline (1000mL) 1,000 ML 75 ML IV ×2 (00:34→14:00)
[2023-12-26] MEDS: metroNIDAZOLE 500 MG/100 ML BAG 100 MG IV ×4 (00:34→21:16)
[2023-12-26] MEDS: MELATONIN 10 MG TABLET 5 MG PO ×2 (02:23→22:15)
[2023-12-26 02:29] LABS: Iron 52 ug/dL (65-175); Iron Binding Capacity,Total 262 ug/dL (250-450); PERCENT IRON SATURATION 19.8 % (15.0-55.0)
[2023-12-26 06:14] LABS: Bedside Glucose 136 mg/dL (74-106)
[2023-12-26 06:38] LABS: Absolute Lymphocyte Count 1.76 X10^3/uL (0.83-4.51); Absolute Neutrophil Count 3.6 X10^3/uL (2.0-7.7); Basophil# 0.02 X10^3/uL; Basophil% 0.3 % (0-1); Eosinophil# 0.18 X10^3/uL; Hematocrit 22.6 % (40-54); Hemoglobin 7.2 g/dL (13.0-16.5); Lymphocyte # 1.76 X10^3/ul (0.83-4.51); Lymphocyte % 29.2 % (19-41); Mean Corp Hgb Conc 31.9 g/dL (32-36); Mean Corpuscular Hgb 28.1 pg (27.0-32.0); Mean Corpuscular Volume 88.3 fL (80-94); Mean Platelet Vol. 9.6 fl (6.2-12.0); Monocyte# 0.44 X10^3/uL; Monocyte% 7.3 % (0-10); NRBC Flagged by Analyzer 0 % (0-5); Neutrophil # 3.58 X10^3/uL (2.7-7.7); Neutrophil % 59.5 % (47-70); Platelet Count 192 K/mm3 (150-450); RBC Distribution Width CV 12.5 % (11.6-14.6); RBC Distribution Width SD 40.5 fl (35.1-43.9); Red Blood Count 2.56 M/mm3 (4.6-6.2)
[2023-12-26 07:30] LABS: AST(SGOT) 15 U/L (15-37); Alanine Aminotransfer ALT/SGPT 24 U/L (16-61); Albumin, Serum 2.8 g/dL (3.2-5.0); Alkaline Phosphatase 74 U/L (45-117); Anion Gap 8 (5-15); BUN 65 mg/dL (7-18); BUN/Creat Ratio 16.3 RATIO (10-20); Calcium,Total 8.4 mg/dL (8.5-10.1); Chloride 111 mmol/L (98-107); Creatinine, Serum 3.99 mg/dL (0.70-1.30); EST Glomerular Filtration Rate 16 mL/min (>60); Est Glom Filt Rate - Afr Amer 20 mL/min (>60); Estimated Creatinine Clearance 15.56 ml/min; Globulin 2.7 g/dL (2.2-4.2); Glucose 138 mg/dL (74-106); Potassium 4.3 mmol/L (3.5-5.1); Protein, Total 5.5 g/dL (6.4-8.2); Sodium Level 140 mmol/L (136-145); Thyroid Stim Hormone (TSH) 1.68 uIU/mL (0.358-3.74)
--- NOTE | 2023-12-26 08:48 | PN.HOSP_ITS ---
Subjective Subjective Doing well, no issues overnight. No further bowel movements Objective Data Objective Data Vital Signs: Vital Signs Temp Pulse Resp BP Pulse Ox O2 Del Method 98.3 F 65 16 156/71 H 98 Room Air 12/26/23 05:11 12/26/23 05:11 12/26/23 05:11 12/26/23 05:11 12/26/23 05:11 12/26/23 05:11 Oxygen Delivery Method Room Air Weight: 133 lb 2.547 oz Body Mass Index (BMI) 19.7 Intake & Output: Intake and Output for Last 24 Hours 12/25/23 12/26/23 12/27/23 03:59 03:59 03:59 Intake Total 1550 / 1550 300 / 300 Output Total 425 / 425 500 / 500 Balance 1125 / 1125 -200 / -200 Lab / Micro Data 12/26/23 05:12 12/26/23 05:12 Labs: Laboratory Results - last 24 hr 12/25/23 20:23: WBC 6.4, RBC 2.78 L, Hgb 7.8 L, Hct 24.5 L, MCV 88.1, MCH 28.1, MCHC 31.8 L, RDW Std Deviation 40.9, RDW Coeff of Harry 12.6, Plt Count 211, MPV 10.0, Immature Gran % (Auto) 0.600, Neut % (Auto) 57.6, Lymph % (Auto) 31.6, [place] % (Auto) 7.7, Eos % (Auto) 2.2, Baso % (Auto) 0.3, Absolute Neuts (auto) 3.7, Absolute Lymphs (auto) 2.02, Nucleated RBC % 0, Sodium 140, Potassium 4.7, Chloride 110 H, Carbon Dioxide 23.0, Anion Gap 7, BUN 61 H, Creatinine 4.19 H, Estim Creat Clear Calc 17.34, Est GFR (MDRD) Af Amer 18 L, Est GFR (MDRD) Non-Af 15 L, BUN/Creatinine Ratio 14.6, Glucose 134 H, Calcium 8.9, Total Bilirubin 0.30, AST 10 L, ALT 30, Alkaline Phosphatase 91, Troponin I High Sens 12, Total Protein 6.5, Albumin 3.4, Globulin 3.1, Albumin/Globulin Ratio 1.1 12/25/23 20:26: Iron 52 L, TIBC 262, Iron Saturation 19.8 12/25/23 20:42: Urine Color Yellow, Urine Clarity Clear, Urine pH 6.5, Ur Specific [place] 1.015, Urine Protein 500 H, Urine Glucose (UA) 100 H, Urine Ketones Negative, Urine Occult Blood 10 H, Urine Nitrite Negative, Urine Bilirubin Negative, Urine Urobilinogen Normal, Ur Leukocyte Esterase Negative, Urine RBC 0-5 SEEN, Urine WBC 0 SEEN, Ur Squamous Epith Cells 0 SEEN, Urine Bacteria 0 SEEN, Urine Mucus 0 SEEN 12/26/23 05:12: WBC 6.0, RBC 2.56 L, Hgb 7.2 L, Hct 22.6 L, MCV 88.3, MCH 28.1, MCHC 31.9 L, RDW Std Deviation 40.5, RDW Coeff of Harry 12.5, Plt Count 192, MPV 9.6, Immature Gran % (Auto) 0.700, Neut % (Auto) 59.5, Lymph % (Auto) 29.2, [place] % (Auto) 7.3, Eos % (Auto) 3.0, Baso % (Auto) 0.3, Absolute Neuts (auto) 3.6, Absolute Lymphs (auto) 1.76, Nucleated RBC % 0, Sodium 140, Potassium 4.3, C hloride 111 H, Carbon Dioxide 21.0, Anion Gap 8, BUN 65 H, Creatinine 3.99 H, Estim Creat Clear Calc 15.56, Est GFR (MDRD) Af Amer 20 L, Est GFR (MDRD) Non-Af 16 L, BUN/Creatinine Ratio 16.3, Glucose 138 H, Calcium 8.4 L, Phosphorus 4.0, Magnesium 2.0, Total Bilirubin 0.20, AST 15, ALT 24, Alkaline Phosphatase 74, T otal Protein 5.5 L, Albumin 2.8 L, Globulin 2.7, Albumin/Globulin Ratio 1.0, TSH 1.68, Blood Type O POSITIVE, Antibody Screen NEGATIVE 12/26/23 05:15: POC Glucose 136 H Micro: Microbiology 12/25/23 21:25 Stool Stool Occult Blood (SAMANTA) - Final Radiography Diagnostic Testing: Radiology Impression Chest X-Ray 12/25/23 20:53 IMPRESSION: No active disease. Electronically Signed: Danny Mcdaniel MD at 21:18 EDT , Abdomen/Pelvis CT 12/25/23 21:50 IMPRESSION: 1. 2 small nonobstructing right renal stones. 2. Cholelithiasis. Electronically Signed: Danny Mcdaniel MD at 22:35 EDT , Physical Exam Narrative General: Alert, Oriented x3, Cooperative, No apparent distress HEENT: Atraumatic, PERRLA, EOMI, Normocephalic Oral: Moist Mucosa Neck: Supple, No JVD Lungs: Diminished, Normal air movement, No rhonchi, No wheeze, No rales Cardiovascular: Regular rate, Regular Rhythm, Normal S1, Normal S2, No murmurs Abdomen: Soft, Non Tender, Non-Distended, No Hepato-splenomegaly Extremities: No edema, Capillary Refill Less than 3 Seconds Skin: No rashes, No breakdown Musculoskeletal: No Tenderness to Palpation of Joints or Extremities Neurological: No focal neurological deficits, Motor Exam 5/5 strength throughout, Sensory exam intact to light touch and pain Psych/Mental Status: Flat Assessment & Plan Assessment/Plan (1) Acute dehydration: (2) Diarrhea: QUALIFIERS: Diarrhea type: presumed infectious Qualified Code(s): R19.7 - Diarrhea, unspecified (3) Acute on chronic kidney failure: QUALIFIERS: Acute renal failure type: unspecified Chronic kidney disease stage: stage 4 (severe) Qualified Code(s): N17.9 - Acute kidney failure, unspecified; N18.4 - Chronic kidney disease, stage 4 (severe) (4) High grade dysplasia in colonic adenoma: (5) Anemia: QUALIFIERS: Anemia type: unspecified type Qualified Code(s): D 64.9 - Anemia, unspecified PLAN: Plan 1. VENICE secondary to dehydration in the setting of CKD 4 with a history of diarrhea ? Continue with IV fluids ? CT scan demonstrates 2 small nonobstructing right renal stones ? Peak creatinine of 4.19, there is slight improvement to 3.99 ? Stool studies are pending however he has not had any more diarrhea so if he does not have any further bowel movements in the next 24 to 48 hours can discontinue those tests as he does not have C. difficile then 2. Acute on chronic anemia ? Iron studies so far unremarkable, iron levels little bit low but TIBC and saturation appear to be normal. No ferritin was ordered so we will order this ? Will recheck hemoglobin at noon may need possible transfusion ? Hemoccult was negative for blood 3. Essential HTN/HLD ? Can resume his Norvasc and his metoprolol, will monitor make adjustments as necessary ? Continue with Lipitor 4. DM2 ? Will hold metformin secondary to his diarrhea ? Continue with insulin ? Accu-Cheks ACHS ? We will monitor make adjustments as necessary DVT: SCDs Charges/Coding Visit Charges Inpatient E&M: 88012 Subs Hosp L2
[2023-12-26] MEDS: Multivitamins,Therapeutic Tablet 1 TABLET PO (09:37)
[2023-12-26] MEDS: Ascorbic Acid 500 MG Tablet PO ×2 (09:37→21:16)
[2023-12-26] MEDS: Lactobacillis Acidophilus 2 CAP PO ×2 (09:37→21:15)
[2023-12-26 09:38] LABS: Ferritin 82 ng/mL (26-388)
[2023-12-26] MEDS: Insulin Glargine-YFGN 100 UNIT/ML Pen 12 UNIT SC (09:45)
[2023-12-26] MEDS: hydrALAZINE 50 MG Tablet PO (09:46)
[2023-12-26] MEDS: amLODIPine 10 MG Tablet PO (09:46)
--- NOTE | 2023-12-26 10:30 | CASEMGMT ---
BERKLEY RITTER Assessment: RN CM to room to meet with patient for initial transition planning/care coordination assessment. Pt is resting in bed, is alert and oriented and able to answer questions appropriately. RN STONE introduced self and role at [facility], Pt voices understanding. Care providers, pharmacy, and demographics verified. PCP: Dr. Lucas Specialists: Dr Javier-GI, Dr Stark- nephrology, Dr Harris-cardiology Preferred Pharmacy: [facility] for routine meds. [facility] @ discharge. Insurance: [facility] Prescription Benefit: Yes Living Will/HPOA: Pt states he does not have a LW but does have HCPOA, who is his sister, Rebecca LNOK: Sister, Rebecca Living Arrangements: Pt lives alone in an single story apartment with no steps to enter. Pt ambulates with a cane through the home. Pt states he has a [facility] [facility] [employer] and receives services including MOW and medical alert button. Pt states he has an aide that assists that comes 5 days/week for 1 1/2 hrs. The aide assists w/bathing/dressing, meals, paying bills, and gets groceries. Pt goes to [employer] about 2 x's/week. Transportation: Pt does not drive. Pt uses [facility] for transportation to [facility]. Bro-in-law, Neftali, will take him home @ discharge. DME: Shower chair, hand held shower, RTS, medical alert, hospital bed, cane, and functioning glucometer w/supplies. He checks his BS's daily in the AM. He also has a walker and W/C available, but does not use. SNF/HH: Pt has been to [facility] and had HHC after dc'ing home from there. Discussed discharge plan. Pt wishes to discharge home and feels he will be strong enough to return home alone. PT/OT evals pending. CM to follow for recommendations. Pt would like HHC and declines wanting list of options to review, stating it is okay to send blanket referral to anyone in-network to see who would be able to accept. MS3 BERKLEY RITTER, Kely, made aware. Plan: Home w/HHC and continuation of [employer] services through [employer]. Ruddy NEWSOME RN, CM
--- NOTE | 2023-12-26 11:08 | CASEMGMT ---
Social Work- called [facility] to speak with Erum and notify her that pt was at the hospital. Pt receives services 1.5 hr per day x 5 days/week. Gisell is his aide. TARA Slater
[2023-12-26 11:54] LABS: Hematocrit 23.3 % (40-54); Hemoglobin 7.3 g/dL (13.0-16.5)
[2023-12-26] MEDS: Insulin Lispro 100 UNIT/ML INSULN.PEN SC (11:57)
[2023-12-26 12:17] LABS: Bedside Glucose 157 mg/dL (74-106)
--- NOTE | 2023-12-26 16:44 | CASEMGMT ---
Social Work- SW spoke with Erum who states that pt also has meals through [employer] x 7 and a renal diet through [employer] x 7. Erum asked to be advised of d/TARA Ray
[2023-12-26 17:28] LABS: Bedside Glucose 121 mg/dL (74-106)
[2023-12-26] MEDS: Atorvastatin Calcium 80 MG Tablet PO (21:16)
[2023-12-26] MEDS: traZODone 50 MG Tablet PO (21:16)
[2023-12-26] MEDS: Metoprolol(XL)Succ 100 MG Tablet PO (21:16)
[2023-12-26 22:38] LABS: Bedside Glucose 112 mg/dL (74-106)
[2023-12-27 02:00] VITALS: RESP 15
[2023-12-27 03:53] VITALS: BP 148/67; PULSE 66; RESP 15; TEMP 36.8; O2SAT 98
[2023-12-27] MEDS: 0.9% Normal Saline (1000mL) 1,000 ML 75 ML IV (03:59)
[2023-12-27] MEDS: metroNIDAZOLE 500 MG/100 ML BAG 100 MG IV (05:04)
[2023-12-27 07:11] LABS: Bedside Glucose 97 mg/dL (74-106)
[2023-12-27 07:36] LABS: Absolute Lymphocyte Count 1.74 X10^3/uL (0.83-4.51); Absolute Neutrophil Count 3.4 X10^3/uL (2.0-7.7); Basophil# 0.02 X10^3/uL; Basophil% 0.3 % (0-1); Eosinophil# 0.15 X10^3/uL; Eosinophils% 2.6 % (0-5); Hematocrit 23.1 % (40-54); Hemoglobin 7.3 g/dL (13.0-16.5); Lymphocyte # 1.74 X10^3/ul (0.83-4.51); Lymphocyte % 30.2 % (19-41); Mean Corp Hgb Conc 31.6 g/dL (32-36); Mean Corpuscular Hgb 27.7 pg (27.0-32.0); Mean Corpuscular Volume 87.5 fL (80-94); Mean Platelet Vol. 9.4 fl (6.2-12.0); Monocyte% 6.9 % (0-10); NRBC Flagged by Analyzer 0 % (0-5); Neutrophil # 3.42 X10^3/uL (2.7-7.7); Neutrophil % 59.3 % (47-70); Platelet Count 194 K/mm3 (150-450); RBC Distribution Width CV 12.5 % (11.6-14.6); RBC Distribution Width SD 40.2 fl (35.1-43.9); Red Blood Count 2.64 M/mm3 (4.6-6.2); White Blood Count 5.8 K/mm3 (4.4-11.0)
[2023-12-27 07:50] LABS: Anion Gap 6 (5-15); BUN 55 mg/dL (7-18); BUN/Creat Ratio 15.2 RATIO (10-20); Calcium,Total 8.3 mg/dL (8.5-10.1); Chloride 116 mmol/L (98-107); Creatinine, Serum 3.61 mg/dL (0.70-1.30); EST Glomerular Filtration Rate 18 mL/min (>60); Est Glom Filt Rate - Afr Amer 22 mL/min (>60); Glucose 109 mg/dL (74-106); Potassium 4.6 mmol/L (3.5-5.1); Sodium Level 142 mmol/L (136-145)
[2023-12-27 08:12] VITALS: BP 159/71; PULSE 61; RESP 18; TEMP 36.8; O2SAT 98
[2023-12-27] MEDS: Multivitamins,Therapeutic Tablet 1 TABLET PO (08:15)
[2023-12-27 08:19] VITALS: BMI 23.5
--- NOTE | 2023-12-27 09:59 | DCINST_ITS ---
Discharge Instructions Diet Discharge Diet: Low fat / Low cholesterol and Carb Control Diet Activity Discharge Activity: Return to Normal Activity Dressing / Incision Call your doctor if you observe: Fever of 101 or Higher, Shortness of breath, Dizziness, Fainting spells, Swelling in the ankles, Chest pain and Increased palpitations (irregular heartbeat) Follow Up Care Test Results: Test results from this visit will be discussed in further detail at your follow- up appointment, if applicable. Discharge Plan Admission Admit Date/Time: 12/25/23 22:51 Attending Provider: Espinoza Ferguson Primary Care Provider: Vera Lucas Consulting Providers: Armen Kenney Instructions Patient Instructions: CKD Dc Discharge Orders/Prescriptions Prescriptions: Continued clopidogrel 75 mg tablet 75 mg PO DAILY atorvastatin 80 MG tablet 80 mg PO DAILY multivitamin [Daily-Yousuf] Tablet 1 tab PO DAILY ascorbic acid (vitamin C) [Vitamin C] 500 mg tablet 500 mg PO BID 30 Days Qty: 60 0RF insulin glargine [Lantus Solostar U-100 Insulin] 100 unit/mL (3 mL) insulin pen 20 unit SUBCUT .QAM aspirin 81 mg tablet,delayed release (DR/EC) 81 mg PO DAILY trazodone 50 mg tablet 50 mg PO QHS Rx Instructions: May take 50-100 mg nightly. insulin lispro 100 unit/mL insulin pen 2 unit SUBCUT TID hydralazine 50 mg Tablet 50 mg PO DAILY metoprolol succinate 100 mg tablet extended release 24 hr 100 mg PO QHS amlodipine 10 mg tablet 10 mg PO DAILY melatonin 5 mg capsule 5 mg PO .qs PRN (Reason: Sleep aid) lactulose 10 gram/15 mL solution 10 g PO BID 30 Days Qty: 900 11RF Referrals / Follow Up: Vera Lucas MD [Primary Care Provider] - Within 1 Week Wallace Mahmood MD [Med Staff - Consulting] - Within 1 Month Disposition Disposition (needs filled in before D/C Order can be placed): Home, Self Care
[2023-12-27 10:23] VITALS: PULSE 62
[2023-12-27] MEDS: hydrALAZINE 50 MG Tablet PO (10:23)
[2023-12-27] MEDS: Ascorbic Acid 500 MG Tablet PO (10:23)
[2023-12-27] MEDS: Insulin Glargine-YFGN 100 UNIT/ML Pen 12 UNIT SC (10:23)
[2023-12-27] MEDS: amLODIPine 10 MG Tablet PO (10:23)
--- NOTE | 2023-12-27 11:04 | CASEMGMT ---
Addendum entered by Kely Millan 12/27/23 11:13: Pt walked out to desk from room without an AD and asked if he could leave. He is aware that is in the process of being set up. Pt states he doesn't really feel like he needs [facility]. Pt asked for this to be cancelled. TC gilmar Sullivan at [facility], referral cancelled. Pt denies any further homegoing needs. Original Note: RN CM into pt room, pt is dressed and ready to go home. Noted pt iv site with active red drainage. Gave pt gauze pads to apply pressure and notified pt nurse. Pt states he is interested in some therapy at home. Pt does not have a preference on agency. MEENA Sullivan at [facility], referral made. Will await acceptance.
--- NOTE | 2023-12-27 12:11 | CASEMGMT ---
Social Work VM left with Pt's [employer] Manager Erum peacock of dc home today. DC instructions faxed. TARA Henry
--- NOTE | 2023-12-27 15:16 | PCM.DC.SUM ---
Providers Date of Admission: 12/25/23 Primary Care Physician: Dr. Vera Lucas MD Reason For Visit: VENICE ON CKD, STAGE IV, DIARRHEA & DEHYDRATION Diagnosis Discharge Diagnosis (1) Acute dehydration: Status: Acute Code(s): E86.0 - Dehydration (2) Diarrhea: Status: Acute Code(s): R19.7 - Diarrhea, unspecified Qualifiers: Diarrhea type: presumed infectious Qualified Code(s): R19.7 - Diarrhea, unspecified (3) Acute on chronic kidney failure: Status: Chronic Code(s): N17.9 - Acute kidney failure, unspecified; N18.9 - Chronic kidney disease, unspecified Qualifiers: Acute renal failure type: unspecified Chronic kidney disease stage: stage 4 (severe) Qualified Code(s): N17.9 - Acute kidney failure, unspecified; N18.4 - Chronic kidney disease, stage 4 (severe) (4) High grade dysplasia in colonic adenoma: Status: Acute Code(s): D12.6 - Benign neoplasm of colon, unspecified (5) Anemia: Status: Acute Code(s): D64.9 - Anemia, unspecified Qualifiers: Anemia type: unspecified type Qualified Code(s): D64.9 - Anemia, unspecified Medications at Discharge Home Medications atorvastatin 80 mg tablet 80 mg PO DAILY cholesterol 03/04/19 multivitamin (Daily-Yousuf tablet) 1 tab PO DAILY SUPPLEMENT 03/11/22 ascorbic acid (vitamin C) 500 mg tablet (Vitamin C) 500 mg PO BID 30 days #60 tabs 03/22/22 clopidogrel 75 mg tablet 75 mg PO DAILY 03/14/23 aspirin 81 mg tablet,delayed release 81 mg PO DAILY 04/07/23 insulin glargine 100 unit/mL (3 mL) subcutaneous pen (Lantus Solostar U-100 Insulin) 20 unit subcut .QAM DIABETES 04/07/23 trazodone 50 mg tablet 50 mg PO QHS 04/07/23 insulin lispro 100 unit/mL subcutaneous pen 2 unit subcut TID 05/25/23 hydralazine 50 mg tablet 50 mg PO DAILY 06/29/23 amlodipine 10 mg tablet 10 mg PO DAILY 08/21/23 metoprolol succinate 100 mg tablet,extended release 24 hr 100 mg PO QHS 08/21/23 lactulose 10 gram/15 mL oral solution 10 g (15 mL) PO BID 30 days #900 mL 09/12/23 melatonin 5 mg capsule 5 mg PO .qs PRN Sleep aid 12/25/23 Hospital Course Operations None Procedures None Summary of Care Provided Minutes Spent on Discharge: 33 Hospital Course: Per HPI: LOU JULIEN, is a 68 M with a past medical history of essential hypertension, hyperlipidemia, DM-2; of unknown control with intolerance to metformin which causes diarrhea, history of previous tobacco abuse (quit 1969), CKD; stage IV (with baseline creatinine of ~3.15 mg/dL) followed by nephrology, history of CVA (2021), history of TIA (2020), history of DVT, JUDY, history of leg cramps, history of PSVT (2016), SSS; status post PPM (2018), chronic anemia, remote history of COVID-19, history of pneumonia, history of gallbladder polyp, history of high-grade dysplasia in colonic adenoma, and osteoarthritis who presents to [facility] ER complaining of generalized weakness, fatigue and loose stools. Mr. Julien reports his symptoms began approximately 2 weeks prior to admission with 3 episodes of loose stools daily. He denies recent antibiotic use but he has noted worsening dyspnea on exertion in that timeframe. He now reports that he has had a hard time walking due to the sidewalk without feeling significantly short of breath and lightheaded. He also admits to intermittent lower abdominal pain over the past few weeks and he states he feels like he is dehydrated. He denies associated fever, chills nausea, vomiting, dysuria, arthralgia or myalgias. In the ER he was noted to have a significantly elevated serum creatinine of 4.19 mg/dL with a BUN of 61 mg/dL (up from his baseline serum creatinine of 3.35 mg/dL in 06/2023) likely due to dehydration from diarrhea complicated by slightly worsening chronic anemia with hemoglobin of 7.8 g/dL present on admission (down from his baseline of 8.8 g/dL on 12/13/2023) compounded by uncontrolled hypertension with blood pressure of 180/81 mmHg present on admission and he was then admitted to the general medical floor for ongoing care for stay that is expected to be greater than 2 midnights. Hospital Course: 1. VENICE on CKD 4 in the setting of dehydration and diarrhea?68-year-old male presented from home with diarrhea. Stool studies were ordered however he did not have another episode of diarrhea while he was hospitalized. He was started on aggressive IV fluids and had improvement of his creatinine from a peak of 4.19-3.66 on the day of discharge. He does have a photogrammetric engineer who he saw last month, he is feeling protein in his urine as he had 500 protein in his urine analysis on admission. I discussed with him the possibility of discharge today and he expressed understanding of the risks and benefits of going home and he would like to go home today. He does recognize the need to stay hydrated and to follow-up with both his PCP as well as nephrology as an outpatient to obtain renal labs. 2. Anemia of chronic disease, essential HTN, hyperlipidemia, type 2 diabetes are chronic medical conditions which complicate his care. His home medications were continued where appropriate Physical Exam Narrative General: Alert, Oriented x3, Cooperative, No apparent distress HEENT: Atraumatic, PERRLA, EOMI, Normocephalic Oral: Moist Mucosa Neck: Supple, No JVD Lungs: Diminished, Normal air movement, No rhonchi, No wheeze, No rales Cardiovascular: Regular rate, Regular Rhythm, Normal S1, Normal S2, No murmurs Abdomen: Soft, Non Tender, Non-Distended, No Hepato-splenomegaly Extremities: No edema, Capillary Refill Less than 3 Seconds Skin: No rashes, No breakdown Musculoskeletal: No Tenderness to Palpation of Joints or Extremities Neurological: No focal neurological deficits, Motor Exam 5/5 strength throughout, Sensory exam intact to light touch and pain Psych/Mental Status: Flat Weight / BMI Weight Weight: 158 lb 12.8 oz Body Mass Index (BMI) 23.5 ABG / Lab / Microbiology Data 12/27/23 07:21 12/27/23 07:21 Laboratory: Laboratory Results - last 24 hr 12/26/23 17:07: POC Glucose 121 H 12/26/23 22:17: POC Glucose 112 H 12/27/23 06:47: POC Glucose 97 12/27/23 07:21: WBC 5.8, RBC 2.64 L, Hgb 7.3 L, Hct 23.1 L, MCV 87.5, MCH 27.7, MCHC 31.6 L, RDW Std Deviation 40.2, RDW Coeff of Harry 12.5, Plt Count 194, MPV 9.4, Immature Gran % (Auto) 0.700, Neut % (Auto) 59.3, Lymph % (Auto) 30.2, [place] % (Auto) 6.9, Eos % (Auto) 2.6, Baso % (Auto) 0.3, Absolute Neuts (auto) 3.4, Absolute Lymphs (auto) 1.74, Nucleated RBC % 0, Sodium 142, Potassium 4.6, Chloride 116 H, Carbon Dioxide 20.0 L, Anion Gap 6, BUN 55 H, Creatinine 3.61 H, Estim Creat Clear Calc 17.20, Est GFR (MDRD) Af Amer 22 L, Est GFR (MDRD) Non-Af 18 L, BUN/Creatinine Ratio 15.2, Glucose 109 H, Calcium 8.3 L Microbiology: Microbiology 12/25/23 21:25 Stool Stool Occult Blood (SAMANTA) - Final D/C Instructions Discharge Diet: Low fat / Low cholesterol and Carb Control Diet Call your doctor if you observe: Fever of 101 or Higher, Shortness of breath, Dizziness, Fainting spells, Swelling in the ankles, Chest pain and Increased palpitations (irregular heartbeat) Meaningful Use Info Meaningful Use Meaningful Use Diagnoses (Choose all that apply): None applicable Ischemic Stroke Statin Dosing Therapy Reference: STATIN DOSE THERAPY REFERENCE: * Patients > 75 years receive moderate or high dose statin therapy. * Patients 75 years or YOUNGER should receive HIGH intensity statin dose unless contraindicated. You will be required to document reason for non-treatment if statin daily dose does not meet guidelines. HIGH DOSE STATIN THERAPY DAILY Atorvastatin > than or = to 40 mg Rosuvastatin > than or = to 20 mg Amlodipine + Atorvastatin > than or = to 2.5/40 mg Ezetimibe + Simvastatin 10/80 mg Simvastatin 80mg Discharge Plan Admission Admit Date/Time: 12/25/23 22:51 Attending Provider: Espinoza Ferguson Primary Care Provider: Vera Lucas Consulting Providers: Armen Kenney Instructions Patient Instructions: CKD Dc Additional Instructions / Restrictions: Follow-up with your PCP in 3 to 5 days to monitor your renal function Discharge Orders/Prescriptions Prescriptions: Continued clopidogrel 75 mg tablet 75 mg PO DAILY atorvastatin 80 MG tablet 80 mg PO DAILY multivitamin [Daily-Yousuf] Tablet 1 tab PO DAILY ascorbic acid (vitamin C) [Vitamin C] 500 mg tablet 500 mg PO BID 30 Days Qty: 60 0RF insulin glargine [Lantus Solostar U-100 Insulin] 100 unit/mL (3 mL) insulin pen 20 unit SUBCUT .QAM aspirin 81 mg tablet,delayed release (DR/EC) 81 mg PO DAILY trazodone 50 mg tablet 50 mg PO QHS Rx Instructions: May take 50-100 mg nightly. insulin lispro 100 unit/mL insulin pen 2 unit SUBCUT TID hydralazine 50 mg Tablet 50 mg PO DAILY metoprolol succinate 100 mg tablet extended release 24 hr 100 mg PO QHS amlodipine 10 mg tablet 10 mg PO DAILY melatonin 5 mg capsule 5 mg PO .qs PRN (Reason: Sleep aid) lactulose 10 gram/15 mL solution 10 g PO BID 30 Days Qty: 900 11RF Referrals / Follow Up: Vera Lucas MD [Primary Care Provider] - Within 1 Week Wallace Mahmood MD [Med Staff - Consulting] - Within 1 Month Disposition Disposition (needs filled in before D/C Order can be placed): Home, Self Care Charges/Coding Visit Charges Inpatient E&M: 03292 Disch Hosp >30min
== END 2023-12-27 11:29 | disposition home or self-care (01) | DRG 422 ==
LOC: ED 22:12 → MS3 23:00
PROVIDERS: Physician Assistant; Admitting Provider Internal Medicine; Emergency Provider Emergency Medicine; PCP Internal Medicine; Visit Provider Family Medicine
DX: E86.0 Dehydration (principal); N17.9 Acute kidney failure, unspecified; E11.22 Type 2 diabetes mellitus with diabetic chronic kidney disease; D64.9 Anemia, unspecified; D12.6 Benign neoplasm of colon, unspecified; E78.00 Pure hypercholesterolemia, unspecified; N18.4 Chronic kidney disease, stage 4 (severe); Z79.4 Long term (current) use of insulin; I12.9 Hypertensive chronic kidney disease with stage 1 through stage 4 chronic kidney disease, or unspecified chronic kidney disease; R19.7 Diarrhea, unspecified; M19.90 Unspecified osteoarthritis, unspecified site; Z79.82 Long term (current) use of aspirin; Z79.02 Long term (current) use of antithrombotics/antiplatelets; Z95.0 Presence of cardiac pacemaker; Z87.891 Personal history of nicotine dependence; Z86.73 Personal history of transient ischemic attack (TIA), and cerebral infarction without residual deficits; Z79.899 Other long term (current) drug therapy
CPT/HCPCS: 36415; 71046; 74176; 80048; 80053; 81001; 82274; 82728; 82962; 83540; 83550; 83735; 84100; 84443; 84484; 85014; 85018; 85025; 86850; 86900; 86901; 93005; 94668; 99285; J7030; A4216

== ENCOUNTER 2024-03-29 11:19 | Emergency (ER) | payer MEDICAID, SELFPAY ==
[2024-03-29 11:20] VITALS: BP 163/67; PULSE 66; RESP 16; TEMP 36.8; O2SAT 99
--- NOTE | 2024-03-29 11:34 | EX.ED.UPPERE ---
HPI History of Present Illness Chief Complaint: Upper Extremity Injury Detail of Chief Complaint: Left wrist pain status post fall Informant: patient Occured/Mechanism Mechanism/Context: Yes injury and Yes blunt trauma Comment: Apparently fell today on outstretched left hand. Onset/Context/Timing Onset: Today and Hours Context: Sudden Onset Timing: Continuous Quality of Pain: - (Pain) Location: Left wrist area Current Severity: Mild Maximum Severity: Moderate Worsened by: Palpation and movement Relieved by: Nothing Associated Symptoms Associated Symptoms: Negative for Parasthesia, Weakness or Loss of Funtion Narrative Narrative: Patient is a 68-year-old [id number] male. He has history of anemia, chronic kidney disease, TIA, cardiac disease with placement of pacemaker for sick sinus syndrome, essential hypertension hyper lipidemia who presents with left wrist pain after reported blunt trauma due to fall. He denies head trauma. He denies loss of conscious. He is not amnestic. He is on Plavix. He is on no anticoagulant. He denies headache. Denies visual symptoms. He denies neurologic symptoms. Tetanus Immunization: Unknown Prior similar symptoms: No PFSH PFSH Medical History Anemia Acute on chronic kidney failure Kidney failure Need for home health care Insulin dependent diabetes mellitus Leg cramps History of pain when walking Wears glasses Ambulates with cane High cholesterol Stroke/cerebrovascular accident Syncope Dietary restriction History of edema History of echocardiogram History of stress test Cardiology follow-up encounter Irregular heart beat Former smoker DVT (deep venous thrombosis) Pacemaker Diabetes mellitus Paroxysmal supraventricular tachycardia (06/2017) Complete heart block (02/2019) Essential (primary) hypertension Sick sinus syndrome Sinus pause CVA (cerebral vascular accident) (02/2019) Tachyarrhythmia HLD (hyperlipidemia) Home Medications ?Medication ?Instructions ?Recorded ?Last Taken ?Type atorvastatin 80 mg tablet 80 mg PO DAILY cholesterol 03/04/19 08/22/23 History multivitamin (Daily-Yousuf tablet) 1 tab PO DAILY SUPPLEMENT 03/11/22 12/25/23 History ascorbic acid (vitamin C) 500 mg 500 mg PO BID 30 days #60 tabs 03/22/22 08/22/23 Rx tablet (Vitamin C) clopidogrel 75 mg tablet 75 mg PO DAILY 03/14/23 08/16/23 History aspirin 81 mg tablet,delayed 81 mg PO DAILY 04/07/23 Unknown History release insulin glargine 100 unit/mL (3 20 unit subcut .QAM DIABETES 04/07/23 08/22/23 History mL) subcutaneous pen (Lantus Solostar U-100 Insulin) trazodone 50 mg tablet 50 mg PO QHS 04/07/23 12/24/23 History insulin lispro 100 unit/mL 2 unit subcut TID 05/25/23 08/22/23 History subcutaneous pen hydralazine 50 mg tablet 50 mg PO DAILY 06/29/23 Unknown History amlodipine 10 mg tablet 10 mg PO DAILY 08/21/23 Unknown History metoprolol succinate 100 mg 100 mg PO QHS 08/21/23 Unknown History tablet,extended release 24 hr lactulose 10 gram/15 mL oral 10 g (15 mL) PO BID 30 days #900 mL 09/12/23 Unknown Rx solution melatonin 5 mg capsule 5 mg PO .qs PRN Sleep aid 12/25/23 12/24/23 History Allergy/AdvReac Type Severity Reaction Status Date / Time metformin (From Glucophage) AdvReac Diarrhea Verified 03/29/24 11:20 Family History Mother Cancer Father Heart disease Hypertension Myocardial infarction Surgical History (Updated 01/04/24 @ 00:01 by Jovita Dhillon) History of hand surgery History of carpal tunnel release History of permanent cardiac pacemaker placement (03/05/19) Social History household members: none Smoking Status: Former smoker Smokeless tobacco user: other alcohol intake: never substance use type: does not use ROS ROS ED Eyes Eyes: Denies blurry vision or change in vision Musculoskeletal Musculoskeletal: Reports other Details: Left wrist discomfort. ; Denies back pain, myalgias or neck pain Neurologic Neurologic: Denies headache(s), paresthesias or weakness Hematologic/Lymphatic Hematologic/Lymphatic: Denies easy bleeding or easy bruising EXAM Physical Exam Const Vital Signs: 03/29/24 11:20 Temperature 98.3 F Temperature Source Oral Pulse Rate 66 Respiratory Rate 16 Blood Pressure 163/67 H Blood Pressure Mean 99 Pulse Ox 99 Oxygen Delivery Method Room Air Positive well nourished and well developed General Appearance ED: well developed and NAD HEENT normocephalic and atraumatic Eyes PERRL and EOMs intact bilaterally Eyes Narrative: Conjunctivitis pale. Neck full ROM and supple Chest Wall inspection of chest normal Resp normal respiratory effort and clear to auscultation bilaterally Cardio regular rate, regular rhythm, S1 normal heart sound, S2 normal heart sound and no murmurs Extremity full ROM; Negative for normal to inspection Extremity Narrative: There is swelling of left wrist. This pain ovation of the distal radius and ulna and carpal bones. There is no pain ovation over the anatomical snuffbox. There is no pain palpation with axial loading of the thumb. Median, radial and ulnar function intact. Capillary refill is normal. Sensation is normal. Extensor pollicis longus, extensor pollicis indices, sensor commonness and minimally are all intact functionally. Neuro oriented x3 and CN's II-XII intact bilaterally Sensorium / Orientation: alert Psych Mood & Affect: depressed Skin General Skin Exam: Negative for petechiae Lesions: no lesions Rashes: no rashes Trauma: no lacerations or abrasions MDM MDM MDM Narrative Medical decision making narrative: Patient will have x-ray of the wrist to rule out contusion versus fracture. Clinically patient is anemic. He has a history of anemia. Last H&H was 7.3 and 23.1 on 12/27/2023. History & Record Review Additional record(s) reviewed:: Prior ED visit and Prior labs Radiography Chest X-Ray - ED: Read by ED Physician (Three-view x-ray of the left wrist reveals osteopenia, significant calcification of the major arteries in the forearm hand region. There is no evidence of fracture, subluxation dislocation of the carpal bones. There is no evidence of fracture to the distal radius ulna or metacarpal bones.) Treatment and Re-Evaluation Narrative: Since there is no evidence of fracture patient be discharged home to take Tylenol for his pain and apply ice. NSAIDs are not applicable since patient has significant chronic kidney disease with an estimated GFR of 18. Discharge Plan Triage Chief Complaint: Upper Extremity Injury ED Provider: Charles Newman Dx/Rx/DC Orders Clinical Impression: Contusion of left wrist, initial encounter, Essential (primary) hypertension, Chronic kidney disease, stage 3b, Injury due to fall Instructions: ED Contusion, Upper Extremity Prescriptions: No Action clopidogrel 75 mg tablet 75 mg PO DAILY atorvastatin 80 MG tablet 80 mg PO DAILY multivitamin [Daily-Yousuf] Tablet 1 tab PO DAILY ascorbic acid (vitamin C) [Vitamin C] 500 mg tablet 500 mg PO BID 30 Days Qty: 60 0RF insulin glargine [Lantus Solostar U-100 Insulin] 100 unit/mL (3 mL) insulin pen 20 unit SUBCUT .QAM aspirin 81 mg tablet,delayed release (DR/EC) 81 mg PO DAILY trazodone 50 mg tablet 50 mg PO QHS Rx Instructions: May take 50-100 mg nightly. insulin lispro 100 unit/mL insulin pen 2 unit SUBCUT TID hydralazine 50 mg Tablet 50 mg PO DAILY metoprolol succinate 100 mg tablet extended release 24 hr 100 mg PO QHS amlodipine 10 mg tablet 10 mg PO DAILY melatonin 5 mg capsule 5 mg PO .qs PRN (Reason: Sleep aid) lactulose 10 gram/15 mL solution 10 g PO BID 30 Days Qty: 900 11RF Primary Care Provider: Vera Lucas Referrals: Vera Lucas MD [Primary Care Provider] - 3-5 Days if not improving Activity Restrictions/Additional Instructions: 1. Apply ice 6-10 times a day 2. Take Tylenol for your pain Print Language: Honduran Disposition Disposition: Home, Self Care
--- NOTE | 2024-03-29 11:43 | RAD_ITS ---
STUDY: X-RAY - LEFT WRIST REASON FOR EXAM: Male, 68 years old. Injury. Pain. TECHNIQUE: 3 view(s) of the wrist were obtained. COMPARISON: None. FINDINGS: Marked osteopenia. Moderate arthrosis of the radial carpal row at the wrist. Moderate arthrosis of the first CMC joint. Marked vascular calcification. RAD/Wrist min 3 Views IMPRESSION: Osteopenia with osteoarthritic changes and marked vascular calcification. No acute osseous abnormality. Electronically Signed: Kevin Jones MD at 12:00 EDT ,
[2024-03-29 12:21] VITALS: BP 150/65; PULSE 65; RESP 18; TEMP 36.3; O2SAT 96
== END 2024-03-29 12:30 | disposition home or self-care (01) ==
LOC: ED 12:00
PROVIDERS: Emergency Provider Emergency Medicine; PCP Internal Medicine; Visit Provider Emergency Medicine
DX: S60.212A Contusion of left wrist, initial encounter (principal); E11.22 Type 2 diabetes mellitus with diabetic chronic kidney disease; Z79.4 Long term (current) use of insulin; N18.32 Chronic kidney disease, stage 3b; W19.XXXA Unspecified fall, initial encounter; I12.9 Hypertensive chronic kidney disease with stage 1 through stage 4 chronic kidney disease, or unspecified chronic kidney disease; D64.9 Anemia, unspecified; E78.00 Pure hypercholesterolemia, unspecified; Z79.82 Long term (current) use of aspirin; Z79.02 Long term (current) use of antithrombotics/antiplatelets; Z79.899 Other long term (current) drug therapy; Z87.891 Personal history of nicotine dependence; Z95.0 Presence of cardiac pacemaker
CPT/HCPCS: 73110; 99282

== ENCOUNTER 2024-07-11 18:02 | Emergency (ER) | payer MEDICAID, SELFPAY ==
[2024-07-11 18:03] VITALS: BP 155/69; PULSE 69; RESP 16; TEMP 36.3; O2SAT 99; BMI 22.1
--- NOTE | 2024-07-11 20:07 | EDS_ITS ---
HPI History of Present Illness Chief Complaint: Lower Extremity Injury Informant: patient Narrative Narrative: Awaken at 4 AM with pain in his right calf. No chest pain shortness of breath. No trauma. History of DVT left leg 20 years ago. Currently on aspirin and Plavix therapy. History of pacemaker. CKD history. Prior similar symptoms: Yes [facility] Medical History Anemia Acute on chronic kidney failure Kidney failure Need for home health care Insulin dependent diabetes mellitus Leg cramps History of pain when walking Wears glasses Ambulates with cane High cholesterol Stroke/cerebrovascular accident Syncope Dietary restriction History of edema History of echocardiogram History of stress test Cardiology follow-up encounter Irregular heart beat Former smoker DVT (deep venous thrombosis) Pacemaker Diabetes mellitus Paroxysmal supraventricular tachycardia (06/2017) Complete heart block (02/2019) Essential (primary) hypertension Sick sinus syndrome Sinus pause CVA (cerebral vascular accident) (02/2019) Tachyarrhythmia HLD (hyperlipidemia) Home Medications ?Medication ?Instructions ?Recorded ?Last Taken ?Type atorvastatin 80 mg tablet 80 mg PO DAILY cholesterol 03/04/19 08/22/23 History multivitamin (Daily-Yousuf tablet) 1 tab PO DAILY SUPPLEMENT 03/11/22 12/25/23 History ascorbic acid (vitamin C) 500 mg 500 mg PO BID 30 days #60 tabs 03/22/22 08/22/23 Rx tablet (Vitamin C) clopidogrel 75 mg tablet 75 mg PO DAILY 03/14/23 08/16/23 History aspirin 81 mg tablet,delayed 81 mg PO DAILY 04/07/23 Unknown History release insulin glargine 100 unit/mL (3 20 unit subcut .QAM DIABETES 04/07/23 08/22/23 History mL) subcutaneous pen (Lantus Solostar U-100 Insulin) trazodone 50 mg tablet 50 mg PO QHS 04/07/23 12/24/23 History insulin lispro 100 unit/mL 2 unit subcut TID 05/25/23 08/22/23 History subcutaneous pen hydralazine 50 mg tablet 50 mg PO DAILY 06/29/23 Unknown History amlodipine 10 mg tablet 10 mg PO DAILY 08/21/23 Unknown History metoprolol succinate 100 mg 100 mg PO QHS 08/21/23 Unknown History tablet,extended release 24 hr Allergy/AdvReac Type Severity Reaction Status Date / Time metformin (From Glucophage) AdvReac Diarrhea Verified 07/11/24 18:02 Family History Mother Cancer Father Heart disease Hypertension Myocardial infarction Surgical History History of hand surgery History of carpal tunnel release History of permanent cardiac pacemaker placement (03/05/19) Social History household members: none Smoking Status: Former smoker Smokeless tobacco user: other alcohol intake: never substance use type: does not use ROS ROS ED Constitutional Constitutional ED: Denies chills, fever(s) or sweats Cardiovascular Cardiovascular: Denies chest pain, leg edema, palpitations or racing heartbeat Respiratory/Chest Respiratory/Chest: Denies cough, dyspnea or dyspnea on exertion Gastrointestinal Gastrointestinal: Denies abdominal pain, diarrhea, nausea or vomiting Genitourinary Genitourinary ED: Denies dysuria, hematuria or urinary frequency Musculoskeletal Musculoskeletal: Reports extremity pain; Denies back pain or neck pain Integumentary Denies rash or wounds Neurologic Neurologic: Denies headache(s), paresthesias or weakness EXAM Physical Exam Const Vital Signs: 07/11/24 18:03 Temperature 97.3 F L Temperature Source Temporal Pulse Rate 69 Respiratory Rate 16 Blood Pressure 155/69 H Blood Pressure Mean 97 Pulse Ox 99 Oxygen Delivery Method Room Air Positive well nourished and well developed General Appearance ED: well developed and NAD HEENT Reports moist mucous membranes normocephalic and atraumatic Eyes EOMs intact bilaterally and conjunctivae normal General Eye ED: Yes normal appearance of both eyes Neck no lymphadenopathy and supple General: Negative for tenderness Chest Wall Chest: Negative for tenderness Resp normal respiratory effort and normal air movement Effort and Inspection: symmetric chest movement; Negative for respiratory distress Cardio regular rate, regular rhythm and no murmurs Peripheral Pulses: pulses 2+ throughout GI normal to inspection, nondistended, normoactive bowel sounds and non-tender Palpation: Negative for guarding or rebound tenderness present Back/Spine no CVA tenderness and no thoracic nor lumbar tenderness Extremity Extremity Narrative: Right lower extremity tender in mid calf no swelling no redness. Soft compartments. No medial thigh tenderness. Pulses intact distally. General Extremety ED: Yes tenderness; Negative for edema General Extremity: Negative for edema Neuro oriented x3 and no sensory deficits noted Sensorium / Orientation: awake and alert Skin no rashes or lesions noted and no wounds MDM MDM MDM Narrative Medical decision making narrative: Interventions / MDM: Differential diagnosis: Right calf pain Diagnosis considered but do not suspect: No clinical compartment syndrome, no clinical arterial thrombus My EKG interpretation: N/A Imaging independently reviewed and interpreted by myself: N/A External documents reviewed: N/A Test considered but not ordered:N/A ED course: Mid calf pain nontraumatic. No swelling. Soft compartments. Tylenol ordered. DVT study right lower extremity ordered. Ultrasound discussion with roof service technician negative for DVT. He declines Chris wrap. Use Tylenol as needed. Outpatient follow-up. All questions were answered. Re-evaluation: stable Disposition discussed with patient/family/significant other: Patient Case discussed with consulting clinician: N/A This note was generated with Edvert dictation software. It may contain incorrect words, spelling, and punctuation that were not noted in checking the note before signing. Radiography Diagnostic Testing: Clinical Impression(s) from Imaging Studies Venous Duplex 07/11/24 20:08 IMPRESSION: Normal venous Doppler ultrasound of the lower extremity. Electronically Signed: Robin Dubon MD at 20:56 EST Reading Location ID and State: [facility] / [place] Tel , Service support , Discharge Plan Triage Chief Complaint: Lower Extremity Injury ED Provider: Hua Corcoran Dx/Rx/DC Orders Clinical Impression: Strain of right calf muscle, Right calf pain Instructions: ED Muscle Strain, Extremity Prescriptions: No Action clopidogrel 75 mg tablet 75 mg PO DAILY atorvastatin 80 MG tablet 80 mg PO DAILY multivitamin [Daily-Yousuf] Tablet 1 tab PO DAILY ascorbic acid (vitamin C) [Vitamin C] 500 mg tablet 500 mg PO BID 30 Days Qty: 60 0RF insulin glargine [Lantus Solostar U-100 Insulin] 100 unit/mL (3 mL) insulin pen 20 unit SUBCUT .QAM aspirin 81 mg tablet,delayed release (DR/EC) 81 mg PO DAILY trazodone 50 mg tablet 50 mg PO QHS Rx Instructions: May take 50-100 mg nightly. insulin lispro 100 unit/mL insulin pen 2 unit SUBCUT TID hydralazine 50 mg Tablet 50 mg PO DAILY metoprolol succinate 100 mg tablet extended release 24 hr 100 mg PO QHS amlodipine 10 mg tablet 10 mg PO DAILY Primary Care Provider: Vera Lucas Referrals: Vera Lucas MD [Primary Care Provider] - 1-2 Weeks Activity Restrictions/Additional Instructions: Ultrasound right leg negative for DVT. Continue Tylenol 1 g every 6 hours as needed. Follow-up with your doctor. Print Language: Tamazight Disposition Disposition: Home, Self Care Discharge Date/Time: 07/11/24 21:49
--- NOTE | 2024-07-11 20:08 | US_ITS ---
STUDY: VENOUS DOPPLER ULTRASOUND - RIGHT LOWER EXTREMITY REASON FOR EXAM: Male, 68 years old. rt posterior calf pain TECHNIQUE: Ultrasound evaluation of the deep vein system to include arteaga-scale imaging and compression was performed. Arteaga-scale imaging and Doppler sonographic evaluation, including duplex spectral analysis and qualitative color flow sonography, was performed. COMPARISON: None. FINDINGS: Common Femoral Vein: Normal compression, spontaneity and augmentation. Normal color Doppler. Common Femoral Vein/Greater Saphenous Junction: Normal compression, spontaneity and augmentation. Normal color Doppler. Deep Femoral Vein: Normal compression, spontaneity and augmentation. Normal color Doppler. Femoral Proximal: Normal compression, spontaneity and augmentation. Normal color Doppler. Femoral Middle: Normal compression, spontaneity and augmentation. Normal color Doppler. Femoral Distal: Normal compression, spontaneity and augmentation. Normal color Doppler. Popliteal Vein: Normal compression, spontaneity and augmentation. Normal color Doppler. Posterior Tibial Vein: Normal compression, spontaneity and augmentation. Normal color Doppler. Peroneal Vein: Normal compression, spontaneity and augmentation. Normal color Doppler. US/Venous Duplex Imag/Limited/Uni IMPRESSION: Normal venous Doppler ultrasound of the lower extremity. Electronically Signed: Robin Dubon MD at 20:56 EST Reading Location ID and State: [facility] Tel , Service support ,
[2024-07-11] MEDS: Acetaminophen 500 MG Tablet 1000 MG PO (20:12)
== END 2024-07-11 21:49 | disposition home or self-care (01) ==
PROVIDERS: Emergency Provider Emergency Medicine; PCP Internal Medicine; Referring Provider Emergency Medicine; Visit Provider Emergency Medicine
DX: S86.111A Strain of other muscle(s) and tendon(s) of posterior muscle group at lower leg level, right leg, initial encounter (principal); E11.22 Type 2 diabetes mellitus with diabetic chronic kidney disease; Z79.4 Long term (current) use of insulin; X58.XXXA Exposure to other specified factors, initial encounter; N18.9 Chronic kidney disease, unspecified; E78.00 Pure hypercholesterolemia, unspecified; I12.9 Hypertensive chronic kidney disease with stage 1 through stage 4 chronic kidney disease, or unspecified chronic kidney disease; Z79.82 Long term (current) use of aspirin; Z79.02 Long term (current) use of antithrombotics/antiplatelets; Z79.899 Other long term (current) drug therapy; Z86.718 Personal history of other venous thrombosis and embolism; Z87.891 Personal history of nicotine dependence; Z86.73 Personal history of transient ischemic attack (TIA), and cerebral infarction without residual deficits; Z95.0 Presence of cardiac pacemaker
CPT/HCPCS: 93971; 99282

== ENCOUNTER 2024-08-15 15:20 | Emergency (ER) | payer MEDICAID, SELFPAY ==
[2024-08-15 15:22] VITALS: BP 150/70; PULSE 67; RESP 15; TEMP 36.5; O2SAT 98; BMI 24.3
--- NOTE | 2024-08-15 15:51 | EX.ED.GENINJ ---
HPI History of Present Illness Chief Complaint: Fall Detail of Chief Complaint: Injury left knee due to fall Informant: patient Onset/Context/Timing Onset: Hours Mechanism/Context: Blunt Injury and Fall Location of pain/injuries: Left knee Quality of Pain: Dull and Aching Location: Proximal medial left knee Current Severity: Mild Worsened by: Movement and palpation Relieved by: Remaining still Associated Symptoms Associated Symptoms: Negative for Parasthesias, Weakness, Loss of function, Inability to ambulate, Loss of consciousness or Amnesia Narrative Narrative: Patient is a 68-year-old male with multiple medical problems who had a mechanical fall. He injured his left knee. Landed on his left knee. He localizes pain to the proximal medial left tibia. He denies paresthesia, anesthesia or motor weakness. He denies head trauma. He denies loss of conscious. Is not amnestic. He does have significant medical problems. He is not on an anticoagulant. He is on Plavix and aspirin. Prior similar symptoms: Yes Recent Illness/Hospitalization: No PFSH PFS Medical History Anemia Acute on chronic kidney failure Kidney failure Need for home health care Insulin dependent diabetes mellitus Leg cramps History of pain when walking Wears glasses Ambulates with cane High cholesterol Stroke/cerebrovascular accident Syncope Dietary restriction History of edema History of echocardiogram History of stress test Cardiology follow-up encounter Irregular heart beat Former smoker DVT (deep venous thrombosis) Pacemaker Diabetes mellitus Paroxysmal supraventricular tachycardia (06/2017) Complete heart block (02/2019) Essential (primary) hypertension Sick sinus syndrome Sinus pause CVA (cerebral vascular accident) (02/2019) Tachyarrhythmia HLD (hyperlipidemia) Home Medications ?Medication ?Instructions ?Recorded ?Last Taken ?Type atorvastatin 80 mg tablet 80 mg PO DAILY cholesterol 03/04/19 08/22/23 History multivitamin (Daily-Yousuf tablet) 1 tab PO DAILY SUPPLEMENT 03/11/22 12/25/23 History ascorbic acid (vitamin C) 500 mg 500 mg PO BID 30 days #60 tabs 03/22/22 08/22/23 Rx tablet (Vitamin C) clopidogrel 75 mg tablet 75 mg PO DAILY 03/14/23 08/16/23 History aspirin 81 mg tablet,delayed 81 mg PO DAILY 04/07/23 Unknown History release insulin glargine 100 unit/mL (3 20 unit subcut .QAM DIABETES 04/07/23 08/22/23 History mL) subcutaneous pen (Lantus Solostar U-100 Insulin) trazodone 50 mg tablet 50 mg PO QHS 04/07/23 12/24/23 History insulin lispro 100 unit/mL 2 unit subcut TID 05/25/23 08/22/23 History subcutaneous pen hydralazine 50 mg tablet 50 mg PO DAILY 06/29/23 Unknown History amlodipine 10 mg tablet 10 mg PO DAILY 08/21/23 Unknown History metoprolol succinate 100 mg 100 mg PO QHS 08/21/23 Unknown History tablet,extended release 24 hr hydrocodone-acetaminophen 5-325mg 1 tab PO Q6H PRN PRN Pain 3 days 08/15/24 Unknown Rx 5mg-325mg #10 TABLETS Allergy/AdvReac Type Severity Reaction Status Date / Time metformin (From Glucophage) AdvReac Diarrhea Verified 08/15/24 15:22 Family History Mother Cancer Father Heart disease Hypertension Myocardial infarction Surgical History History of hand surgery History of carpal tunnel release History of permanent cardiac pacemaker placement (03/05/19) Social History household members: none Smoking Status: Former smoker Smokeless tobacco user: other alcohol intake: never substance use type: does not use ROS ROS ED Constitutional Constitutional ED: Denies chills or fever(s) Eyes Eyes: Denies blurry vision or change in vision ENT ENT ED: Denies rhinorrhea or sore throat Cardiovascular Cardiovascular: Denies chest pain or palpitations Respiratory/Chest Respiratory/Chest: Reports dyspnea and other Details: Chronic shortness of breath. ; Denies cough or dyspnea on exertion Gastrointestinal Gastrointestinal: Denies abdominal pain, melena, nausea or vomiting Genitourinary Genitourinary ED: Denies dysuria, hematuria or urinary frequency Musculoskeletal Musculoskeletal: Denies arthralgias, back pain, myalgias or neck pain Integumentary Denies Abrasions or rash Endocrine Endocrinology: Denies polydipsia or polyuria Hematologic/Lymphatic Hematologic/Lymphatic: Denies easy bleeding or easy bruising EXAM Physical Exam Const Vital Signs: 08/15/24 15:22 08/15/24 15:30 Temperature 97.7 F L Temperature Source Oral Pulse Rate 67 Respiratory Rate 15 Respiratory Effort Short of Breath Respiratory Depth Normal Respiratory Pattern Normal Blood Pressure 150/70 H Blood Pressure Mean 96 Pulse Ox 98 Oxygen Delivery Method Room Air Room Air Positive well nourished and well developed Constitutional Narrative: Patient appears older than documented age. General Appearance ED: well developed and NAD HEENT Reports TM's clear HEENT Narrative: There is no evidence of head trauma or facial trauma. There is no dental trauma. atraumatic; Negative for tenderness Nose: Negative for septum abnormal Tympanic Membrane ED: Yes TM's clear Eyes PERRL and EOMs intact bilaterally Neck full ROM General: Negative for tenderness Chest Wall inspection of chest normal and palpation of chest normal Resp normal respiratory effort and clear to auscultation bilaterally Cardio regular rhythm, S1 normal heart sound, S2 normal heart sound and no murmurs Rate: regular rate Back/Spine normal to inspection and no thoracic nor lumbar tenderness Extremity full ROM; Negative for normal to inspection Extremity Narrative: Patient is able to extend to 180 degrees and hold against gravity. He is able to flex to 90 degrees. There is mild laxity with varus valgus stress testing. This is not significant nor is it greater than the laxity noted on the uninjured knee. There is pain outpatient over the proximal medial left tibia. There is no pain ovation of the patella. There is no effusion. Patella is not ballotable. General Extremety ED: Yes tenderness; Negative for deformity General Extremity: Negative for deformity Neuro oriented x3 and CN's II-XII intact bilaterally [place] Coma Scale: document GCS findings Spontaneous Obeys Commands Oriented 15 Sensorium / Orientation: alert Skin no rashes or lesions noted, no wounds, skin turgor normal and no jaundice MDM MDM MDM Narrative Medical decision making narrative: Will obtain x-ray of the knee to evaluate for contusion versus fracture. No other imaging was obtained since he has no other complaints of trauma or pain. History & Record Review Additional record(s) reviewed:: Prior inpatient record (Patient was admitted for acute dehydration due to diarrhea with acute kidney failure December 2023. The discharge summary was reviewed. The discharge summary was authored by Dr. Espinoza Hinojosa.) and Prior ED visit (Seen [facility] for right calf pain, March 29 for kidney disease, december 27 for acute dehydration and was admitted) Radiography Chest X-Ray - ED: Read by ED Physician (Three-view x-ray reveals some mild degenerative changes. There is no evidence of fracture, subluxation dislocation. This is a poorly reviewed interpreted by me at 1610.) Treatment and Re-Evaluation Narrative: Patient declined pain medicine. Discharge Plan Triage Chief Complaint: Fall ED Provider: Charles Newman Dx/Rx/DC Orders Clinical Impression: Contusion of left knee, initial encounter, Essential (primary) hypertension, HLD (hyperlipidemia), Chronic kidney disease, stage 3b, Injury due to fall Instructions: ED Contusion, Lower Extremity Prescriptions: New hydrocodone-acetaminophen 5-325 mg tablet 1 tab PO Q6H PRN PRN (Reason: Pain) 3 Days Qty: 10 0RF No Action clopidogrel 75 mg tablet 75 mg PO DAILY atorvastatin 80 MG tablet 80 mg PO DAILY multivitamin [Daily-Yousuf] Tablet 1 tab PO DAILY ascorbic acid (vitamin C) [Vitamin C] 500 mg tablet 500 mg PO BID 30 Days Qty: 60 0RF insulin glargine [Lantus Solostar U-100 Insulin] 100 unit/mL (3 mL) insulin pen 20 unit SUBCUT .QAM aspirin 81 mg tablet,delayed release (DR/EC) 81 mg PO DAILY trazodone 50 mg tablet 50 mg PO QHS Rx Instructions: May take 50-100 mg nightly. insulin lispro 100 unit/mL insulin pen 2 unit SUBCUT TID hydralazine 50 mg Tablet 50 mg PO DAILY metoprolol succinate 100 mg tablet extended release 24 hr 100 mg PO QHS amlodipine 10 mg tablet 10 mg PO DAILY Primary Care Provider: Vera Lucas Referrals: Vera Lucas MD [Primary Care Provider] - Activity Restrictions/Additional Instructions: Apply ice to the left knee 4-6 times a day. Print Language: Tanzanian
--- NOTE | 2024-08-15 16:00 | RAD_ITS ---
EXAM: XR LEFT KNEE, 3 VIEWS CLINICAL INDICATION: Injury/Pain -- Pain over the proximal medial tibia. TECHNIQUE: Three views of the left knee. COMPARISON: No relevant prior studies available. FINDINGS: BONES/JOINTS: Joint spaces are maintained. No other unusual lytic or sclerotic lesions of bone. Question diffuse osteopenia. No joint effusion. No acute or healing fracture or malalignment. SOFT TISSUES: Unremarkable. No soft tissue swelling or gas. No radiopaque foreign body. VASCULATURE: Prominent vascular calcifications posteriorly. RAD/Knee 3 Views IMPRESSION: 1. No acute or healing fracture or malalignment. 2. Question diffuse osteopenia. 3. Prominent vascular calcifications posteriorly. Electronically Signed: Louis Regalado MD at 16:29 EST ,
== END 2024-08-15 16:41 | disposition home or self-care (01) ==
LOC: ED 16:20
PROVIDERS: Emergency Provider Emergency Medicine; PCP Internal Medicine; Referring Provider Emergency Medicine; Visit Provider Emergency Medicine
DX: S80.02XA Contusion of left knee, initial encounter (principal); E11.22 Type 2 diabetes mellitus with diabetic chronic kidney disease; Z79.4 Long term (current) use of insulin; N18.32 Chronic kidney disease, stage 3b; W19.XXXA Unspecified fall, initial encounter; E78.00 Pure hypercholesterolemia, unspecified; I12.9 Hypertensive chronic kidney disease with stage 1 through stage 4 chronic kidney disease, or unspecified chronic kidney disease; Z79.82 Long term (current) use of aspirin; Z79.02 Long term (current) use of antithrombotics/antiplatelets; Z79.899 Other long term (current) drug therapy; Z86.73 Personal history of transient ischemic attack (TIA), and cerebral infarction without residual deficits; Z87.891 Personal history of nicotine dependence; Z95.0 Presence of cardiac pacemaker
CPT/HCPCS: 73562; 99284

== ENCOUNTER 2024-12-23 18:41 | Emergency (ER) | payer MEDICAID, SELFPAY ==
[2024-12-23 18:41] VITALS: BP 136/68; PULSE 71; RESP 16; TEMP 36.9; O2SAT 98; BMI 24.3
--- NOTE | 2024-12-23 19:10 | EX.ED.DYSGE1 ---
HPI History of Present Illness Chief Complaint: Wound Informant: patient Onset/Context/Timing Onset: Weeks (1) Context: Gradual Onset Timing: Continuous Quality: Burning Location: Left buttock Worsened by: Nothing Relieved by: Nothing Narrative Narrative: Patient presents with sores to his left buttock that has been getting worse over the past week. Patient states it is constant. Patient describes it as burning. Patient states nothing makes it worse and nothing makes it better. Patient denies any fevers or chills. Patient denies any discharge or drainage. Patient states he does have a history of diabetes. Patient denies any paresthesias or weakness. Patient denies any abdominal pain. Patient denies any rectal pain. [facility] Medical History GI bleed due to NSAIDs Anemia Acute on chronic kidney failure Kidney failure Need for home health care Insulin dependent diabetes mellitus Leg cramps History of pain when walking Wears glasses Ambulates with cane High cholesterol Stroke/cerebrovascular accident Syncope Dietary restriction History of edema History of echocardiogram History of stress test Cardiology follow-up encounter Irregular heart beat Former smoker DVT (deep venous thrombosis) Pacemaker Diabetes mellitus Paroxysmal supraventricular tachycardia (06/2017) Complete heart block (02/2019) Essential (primary) hypertension Sick sinus syndrome Sinus pause CVA (cerebral vascular accident) (02/2019) Tachyarrhythmia HLD (hyperlipidemia) Home Medications ?Medication ?Instructions ?Recorded ?Last Taken ?Type atorvastatin 80 mg tablet 80 mg PO DAILY cholesterol 03/04/19 08/22/23 History multivitamin (Daily-Yousuf tablet) 1 tab PO DAILY SUPPLEMENT 03/11/22 12/25/23 History ascorbic acid (vitamin C) 500 mg 500 mg PO BID 30 days #60 tabs 03/22/22 08/22/23 Rx tablet (Vitamin C) clopidogrel 75 mg tablet 75 mg PO DAILY 03/14/23 08/16/23 History aspirin 81 mg tablet,delayed 81 mg PO DAILY 04/07/23 Unknown History release insulin glargine 100 unit/mL (3 20 unit subcut .QAM DIABETES 04/07/23 08/22/23 History mL) subcutaneous pen (Lantus Solostar U-100 Insulin) trazodone 50 mg tablet 50 mg PO QHS 04/07/23 12/24/23 History insulin lispro 100 unit/mL 2 unit subcut TID 05/25/23 08/22/23 History subcutaneous pen hydralazine 50 mg tablet 50 mg PO DAILY 06/29/23 Unknown History amlodipine 10 mg tablet 10 mg PO DAILY 08/21/23 Unknown History metoprolol succinate 100 mg 100 mg PO QHS 08/21/23 Unknown History tablet,extended release 24 hr hydrocodone-acetaminophen 5-325mg 1 tab PO Q6H PRN PRN Pain 3 days 08/15/24 Unknown Rx 5mg-325mg #10 TABLETS cephalexin 500 mg capsule 500 mg PO Q6 #40 CAPSULES 12/23/24 Unknown Rx Allergy/AdvReac Type Severity Reaction Status Date / Time metformin (From Glucophage) AdvReac Diarrhea Verified 12/23/24 18:42 Family History Mother Cancer Father Heart disease Hypertension Myocardial infarction Surgical History History of hand surgery History of carpal tunnel release History of permanent cardiac pacemaker placement (03/05/19) Social History household members: none Smoking Status: Former smoker Smokeless tobacco user: other alcohol intake: never substance use type: does not use ROS ROS ED Constitutional Constitutional ED: Denies chills or fever(s) Eyes Eyes: Denies blurry vision or change in vision ENT ENT ED: Denies rhinorrhea or sore throat Cardiovascular Cardiovascular: Denies chest pain or palpitations Respiratory/Chest Respiratory/Chest: Denies cough or dyspnea Gastrointestinal Gastrointestinal: Denies nausea or vomiting Genitourinary Genitourinary ED: Denies dysuria or hematuria Musculoskeletal Musculoskeletal: Denies back pain or neck pain Integumentary Denies abscess or rash Neurologic Neurologic: Denies headache(s) or weakness Allergic/Immunologic Allergic/Immunologic ED: Denies mouth swelling or urticaria EXAM Physical Exam Const Vital Signs: 12/23/24 18:41 Temperature 98.4 F Temperature Source Oral Pulse Rate 71 Respiratory Rate 16 Blood Pressure 136/68 H Blood Pressure Mean 90 Pulse Ox 98 Oxygen Delivery Method Room Air Positive well nourished and well developed General Appearance ED: well developed and NAD HEENT Reports moist mucous membranes Neck supple and no JVD Resp normal respiratory effort and clear to auscultation bilaterally Cardio regular rate and regular rhythm GI non-tender and non-distended Palpation: soft Extremity normal to inspection Neuro oriented x3, CN's II-XII intact bilaterally and no sensory deficits noted Sensorium / Orientation: alert Psych mental status grossly normal Skin Skin Narrative: There is an area of erythema over the left buttock area. There is a small ulceration over this area. There is no active bleeding. There is no discharge or drainage. There are some tenderness to palpation over this area. There is no pain over the rectal or perirectal area. There is no pain or erythema over the right buttock. MDM MDM MDM Narrative Medical decision making narrative: Patient was advised that this could be the start of a skin ulcer. Patient was given a dressing. Patient was given a dose of Keflex here. Patient was given a prescription for Keflex. Patient was instructed to keep the wound clean and dry. Patient was instructed to avoid prolonged sitting and laying. Patient was instructed to return if worse in any way. Patient understood and was agreeable with the plan. All questions were answered. Discharge Plan Triage Chief Complaint: Wound ED Provider: Juice Suero Dx/Rx/DC Orders Clinical Impression: Wound of left buttock, Essential (primary) hypertension Instructions: ED Simple Pressure Injury Prescriptions: New cephalexin 500 mg capsule 500 mg PO Q6 Qty: 40 0RF No Action clopidogrel 75 mg tablet 75 mg PO DAILY atorvastatin 80 MG tablet 80 mg PO DAILY multivitamin [Daily-Yousuf] Tablet 1 tab PO DAILY ascorbic acid (vitamin C) [Vitamin C] 500 mg tablet 500 mg PO BID 30 Days Qty: 60 0RF insulin glargine [Lantus Solostar U-100 Insulin] 100 unit/mL (3 mL) insulin pen 20 unit SUBCUT .QAM aspirin 81 mg tablet,delayed release (DR/EC) 81 mg PO DAILY trazodone 50 mg tablet 50 mg PO QHS Rx Instructions: May take 50-100 mg nightly. insulin lispro 100 unit/mL insulin pen 2 unit SUBCUT TID hydralazine 50 mg Tablet 50 mg PO DAILY metoprolol succinate 100 mg tablet extended release 24 hr 100 mg PO QHS amlodipine 10 mg tablet 10 mg PO DAILY hydrocodone-acetaminophen 5-325 mg tablet 1 tab PO Q6H PRN PRN (Reason: Pain) 3 Days Qty: 10 0RF Primary Care Provider: Vera Lucas Referrals: Vera Lucas MD [Primary Care Provider] - 5-7 Days Print Language: [place] Disposition Disposition: Home, Self Care
[2024-12-23 20:14] VITALS: BP 118/70; PULSE 67; RESP 16; TEMP 36.6; O2SAT 99
[2024-12-23] MEDS: Cephalexin 500 MG Capsule PO (20:16)
== END 2024-12-23 20:19 | disposition home or self-care (01) ==
PROVIDERS: Emergency Provider Emergency Medicine; PCP Internal Medicine; Visit Provider Emergency Medicine
DX: S31.829A Unspecified open wound of left buttock, initial encounter (principal); E11.9 Type 2 diabetes mellitus without complications; Z79.4 Long term (current) use of insulin; X58.XXXA Exposure to other specified factors, initial encounter; I10 Essential (primary) hypertension; E78.00 Pure hypercholesterolemia, unspecified; Z79.82 Long term (current) use of aspirin; Z79.02 Long term (current) use of antithrombotics/antiplatelets; Z79.899 Other long term (current) drug therapy; Z87.891 Personal history of nicotine dependence; Z86.73 Personal history of transient ischemic attack (TIA), and cerebral infarction without residual deficits; Z95.0 Presence of cardiac pacemaker; Z82.49 Family history of ischemic heart disease and other diseases of the circulatory system
CPT/HCPCS: 99282

== ENCOUNTER 2025-03-19 12:14 | Emergency (ER) | payer MEDICAID, SELFPAY ==
[2025-03-19 12:16] VITALS: BP 135/62; PULSE 70; RESP 18; TEMP 36.6; O2SAT 99; BMI 22.6
--- NOTE | 2025-03-19 12:33 | RAD_ITS ---
PROCEDURE: ANKLE MIN 3 VIEWS 03/19/2025 REASON FOR EXAM: PAIN, UNABLE TO BEAR WEIGHT TECHNIQUE: ANKLE MIN 3 VIEWS Laterality: Right ankle COMPARISON: None FINDINGS: Bones: No fracture is seen. Joints: Ankle mortise is symmetrical. Soft tissues: Soft tissue swelling. Other: Calcaneal spurs. RAD/Ankle min 3 Views IMPRESSION: Calcaneal spurs. Soft tissue swelling. No fracture. Reading Location: [facility]
--- NOTE | 2025-03-19 12:51 | EDS_ITS ---
HPI History of Present Illness Chief Complaint: Lower Extremity Injury [facility] Medical History GI bleed due to NSAIDs Anemia Acute on chronic kidney failure Kidney failure Need for home health care Insulin dependent diabetes mellitus Leg cramps History of pain when walking Wears glasses Ambulates with cane High cholesterol Stroke/cerebrovascular accident Syncope Dietary restriction History of edema History of echocardiogram History of stress test Cardiology follow-up encounter Irregular heart beat Former smoker DVT (deep venous thrombosis) Pacemaker Diabetes mellitus Paroxysmal supraventricular tachycardia (06/2017) Complete heart block (02/2019) Essential (primary) hypertension Sick sinus syndrome Sinus pause CVA (cerebral vascular accident) (02/2019) Tachyarrhythmia HLD (hyperlipidemia) Home Medications ?Medication ?Instructions ?Recorded ?Last Taken ?Type atorvastatin 80 mg tablet 80 mg PO DAILY cholesterol 0 03/04/19 08/22/23 History multivitamin (Daily-Yousuf tablet) 1 tab PO DAILY SUPPLE MENT 03/11/22 12/25/23 History ascorbic acid (vitamin C) 500 mg 500 mg PO BID 30 days #60 tabs 03/22/22 08/22/23 Rx tablet (Vitamin C) clopidogrel 75 mg tablet 75 mg PO DAILY 03/14/2308/07 History aspirin 81 mg tablet,delayed 81 mg PO DAILY 04/07/23 U nknown History release insulin glargine 100 unit/mL (3 20 unit subcut .QAM DI ABETES 04/07/23 08/22/23 History mL) subcutaneous pen (Lantus Solostar U-100 Insulin) trazodone 50 mg tablet 50 mg PO QHS 04/07/23 History insulin lispro 100 unit/mL 2 unit subcut TID 05/25/23 08/22/23 History subcutaneous pen hydralazine 50 mg tablet 50 mg PO DAILY 06/29/23 Unkn own History amlodipine 10 mg tablet 10 mg PO DAILY 08/21/23 Unkn own History metoprolol succinate 100 mg 100 mg PO QHS 08/21/23 Unk nown History tablet,extended release 24 hr hydrocodone-acetaminophen 5-325mg 1 tab PO Q6H PRN PRN Pain 3 days 08/15/24 Unknown Rx 5mg-325mg #10 TABLETS cephalexin 500 mg capsule 500 mg PO Q6 #40 CAPSULES Unknown Rx Allergy/AdvReac Type Severity Reaction Status Date / Time metformin (From Glucophage) AdvReac Diarrhea Verified 03/19/25 12:15 Family History Mother Cancer Father Heart disease Hypertension Myocardial infarction Surgical History History of hand surgery History of carpal tunnel release History of permanent cardiac pacemaker placement (03/05/19) Social History household members: none Smoking Status: Former smoker Smokeless tobacco user: other alcohol intake: never substance use type: does not use EXAM Physical Exam Const Vital Signs: 03/19/25 12:16 Temperature 97.9 F Temperature Source Oral Pulse Rate 70 Respiratory Rate 18 Blood Pressure 135/62 H Blood Pressure Mean 86 Pulse Ox 99 Oxygen Delivery Method Room Air [facility] [place] Narrative Medical decision making narrative: HISTORY OF PRESENT ILLNESS: Chief complaint: Right ankle pain 69-year-old male history of constipation, CKD, TIA, sick sinus syndrome status post pacemaker, hypertension, hyperlipidemia presents right ankle pain. No mechanical fall from standing just prior to arrival. No head trauma or loss of consciousness noted. No knee pain or hip pain noted. REVIEW OF SYSTEMS: Pertinent positives: Ankle pain Pertinent negatives: As per HPI PHYSICAL EXAM: Nursing triage notes reviewed, Vital signs reviewed Constitutional: please see mdm Extremities: No edema, TTP over lateral malleolus. Intact pulses (dorsalis pedis, posterior tibial and bilateral lower extremities. Right lower extremity is warm and well-perfused. Compartments are soft. Neuro: Intact sensation L1-S1 dermatomal distributions. Intact 5/5 strength in hip flexion (T12-L3). Knee extension (L2-L4). Ankle dorsiflexion (L4-L5). Ankle plantar flexion (S1). Great toe extension (L5). 2+ patellar and Achilles DTRs. Skin: No rash or lesions noted, no sign of open MEDICAL DECISION MAKING: Chief Complaint: please see [facility] MDM Narrative: [The patient was initially hemodynamically stable, afebrile and nontoxic- appearing. Exam with TTP over right lateral malleolus. No obvious signs of open fracture. Right lower extremity is warm and well-perfused. I considered the following differential diagnosis: Ankle fracture/dislocation I obtained x-ray to further determine if the patient was suffering from a life- threatening etiology. ALL IMAGES (IF OBTAINED) HAVE BEEN PERSONALLY REVIEWED AND INTERPRETED BY MYSELF. X-ray of the right ankle was read reviewed person by myself showed no evidence of obvious bony abnormality. The patient and/or family, caregivers express understanding. The patient and/or family, caregivers agrees with the plan. Shared decision making: I will have a discussion with the patient and or visitors regarding risk/benefits of further testing or admission. They will be made aware of of the risk/benefits inherent in this decision they will be given the opportunity to voice understanding. Total critical care time today provided was at least 0[ minutes. This excludes separately billable procedures. Critical care time (if documented) is secondary to the patient having high probability of clinically significant/life threatening deterioration in the patient's condition which required my urgent intervention. Impression: 1. Acute right ankle pain 2. Acute right ankle sprain Dispo: Discharge home This note was generated with [employer] dictation software. It may contain incorrect words, spelling, and punctuation that were not noted in review of the chart prior to signing. Radiography Diagnostic Testing: Clinical Impression(s) from Imaging Studies Ankle X-Ray 03/19/25 12:33 IMPRESSION: Calcaneal spurs. Soft tissue swelling. No fracture. Reading Location: [facility] Discharge Plan Triage Chief Complaint: Lower Extremity Injury ED Provider: Leonel Horton Dx/Rx/DC Orders Prescriptions: No Action clopidogrel 75 mg tablet 75 mg PO DAILY atorvastatin 80 MG tablet 80 mg PO DAILY multivitamin [Daily-Yousuf] Tablet 1 tab PO DAILY ascorbic acid (vitamin C) [Vitamin C] 500 mg tablet 500 mg PO BID 30 Days Qty: 60 0RF insulin glargine [Lantus Solostar U-100 Insulin] 100 unit/mL (3 mL) insulin pen 20 unit SUBCUT .QAM aspirin 81 mg tablet,delayed release (DR/EC) 81 mg PO DAILY trazodone 50 mg tablet 50 mg PO QHS Rx Instructions: May take 50-100 mg nightly. insulin lispro 100 unit/mL insulin pen 2 unit SUBCUT TID hydralazine 50 mg Tablet 50 mg PO DAILY metoprolol succinate 100 mg tablet extended release 24 hr 100 mg PO QHS amlodipine 10 mg tablet 10 mg PO DAILY hydrocodone-acetaminophen 5-325 mg tablet 1 tab PO Q6H PRN PRN (Reason: Pain) 3 Days Qty: 10 0RF cephalexin 500 mg capsule 500 mg PO Q6 Qty: 40 0RF Primary Care Provider: Vera Lucas Referrals: Vera Lucas MD [Primary Care Provider] - Print Language: Thai
[2025-03-19 13:56] VITALS: BP 132/59; PULSE 66; RESP 18; TEMP 36.4; O2SAT 98
== END 2025-03-19 13:56 | disposition home or self-care (01) ==
PROVIDERS: Emergency Provider Emergency Medicine; PCP Internal Medicine; Visit Provider Emergency Medicine
DX: S93.401A Sprain of unspecified ligament of right ankle, initial encounter (principal); E11.22 Type 2 diabetes mellitus with diabetic chronic kidney disease; Z79.4 Long term (current) use of insulin; E78.00 Pure hypercholesterolemia, unspecified; Z87.891 Personal history of nicotine dependence; I12.9 Hypertensive chronic kidney disease with stage 1 through stage 4 chronic kidney disease, or unspecified chronic kidney disease; N18.9 Chronic kidney disease, unspecified; Z86.73 Personal history of transient ischemic attack (TIA), and cerebral infarction without residual deficits; Z95.0 Presence of cardiac pacemaker; Z79.899 Other long term (current) drug therapy; Z79.82 Long term (current) use of aspirin
CPT/HCPCS: 73610; 99284

== ENCOUNTER 2025-04-28 10:41 | Emergency (ER) | payer MEDICAID, SELFPAY ==
[2025-04-28] VITALS (10 sets, daily range): BP systolic 152–202; BP diastolic 74–85; PULSE 61–78; RESP 16–26; TEMP 36.8–36.9; O2SAT 96–99; BMI 22.3
--- NOTE | 2025-04-28 11:40 | CT_ITS ---
PROCEDURE: BRAIN/HEAD WITHOUT CONTRAST 04/28/2025 REASON FOR EXAM: HEADACHE TECHNIQUE: Procedure Code: CTBR Modality: CT Procedure: BRAIN/HEAD WITHOUT CONTRAST Coronal and Sagittal reconstruction series were provided. One or more dose reduction techniques were used (e.g., Automated exposure control, adjustment of the mA and/or kV according to patient size, use of iterative reconstruction technique. RADIATION DOSE SUMMARY: CTDlvol: 44.99 mGy DLP: 812.98 mGycm COMPARISON: March 04, 2023. FINDINGS: Brain: Low density in the periventricular white matter suggests mild chronic small vessel ischemic changes. There are several tiny lacune in the basal ganglia bilaterally most likely chronic in nature. No evidence of edema. CSF Spaces: Mild generalized cerebral atrophy since prior study, there is slight prominence of the CSF spaces surrounding both cerebral hemispheres suggestive of possible old chronic subdural hematomas. No evidence of mass effect. Sinuses/Mastoids: Prominence of the inferior turbinate in the right nasal fossa. Bones: No fracture. CT/Brain/Head without Contrast IMPRESSION: CHRONIC CHANGES. NO ACUTE FINDINGS. Several tiny lacune seen in both basal ganglia suggestive of old lacunar infarc ts. Prominence of the CSF spaces overlying both cerebral hemispheres suggestive of possible old small bilateral subdural hematomas. Reading Location: [place] [id number]
--- NOTE | 2025-04-28 11:41 | EKG12_ITS ---
Test Reason : O Blood Pressure : */* mmHG Vent. Rate : 61 BPM Atrial Rate : 61 BPM P-R Int : 226 ms QRS Dur : 92 ms QT Int : 438 ms P-R-T Axes : 82 -13 20 degrees QTcB Int : 440 ms Atrial-paced rhythm with prolonged AV conduction Minimal voltage criteria for LVH, may be normal variant ( R in aVL ) Nonspecific ST and T wave abnormality Abnormal ECG Confirmed by BOUCHRA VILLA, FESTUS ([id number]), manuscript editor ROCKY LO ([id number]) on 04/29/2025 7:30:27 AM Referred By: Tb Confirmed By: FESTUS SHOOK MD
[2025-04-28] MEDS: 0.9% Normal Saline (1000mL) 1,000 ML 999 ML IV (12:04)
[2025-04-28 12:19] LABS: Hematocrit 35.2 % (40-54); Hemoglobin 11.2 g/dL (13.0-16.5); Immature Granulocytes Count 0.030 X10^3/uL (0.0-0.0); Mean Corp Hgb Conc 31.8 g/dL (32-36); Mean Corpuscular Volume 89.3 fL (80-94); Mean Platelet Vol. 9.4 fl (6.2-12.0); NRBC Flagged by Analyzer 0 % (0-5); Platelet Count 172 K/mm3 (150-450); RBC Distribution Width CV 14.0 % (11.6-14.6); RBC Distribution Width SD 46.5 fl (35.1-43.9); Red Blood Count 3.94 M/mm3 (4.6-6.2); White Blood Count 6.0 K/mm3 (4.4-11.0)
[2025-04-28 12:31] LABS: Mucous, Urine 0 SEEN /hpf (<or=2+); Red Blood Cells-Urine 0 SEEN /hpf (0-5); Squamous Epithelial Cells - UA 0 SEEN /hpf (0-5)
[2025-04-28 12:55] LABS: AST(SGOT) 15 U/L (<=37); Alanine Aminotransfer ALT/SGPT 12 U/L (<=46); Albumin, Serum 3.7 g/dL (3.4-4.8); Alkaline Phosphatase 95 U/L (40-129); Anion Gap 12 (5-15); BUN 54 mg/dL (4-19); BUN/Creat Ratio 13.4 RATIO (10-20); Calcium,Total 8.9 mg/dL (7.6-11.0); Carbon Dioxide 19.2 mmol/L (21.0-32.0); Chloride 107 mmol/L (98-108); Estimated Creatinine Clearance 17.28 ml/min (50-250); Globulin 2.6 g/dL (2.2-4.2); Glucose 108 mg/dL (70-99); Lipase 22 U/L (13-75); Potassium 4.8 mmol/L (3.3-5.1)
[2025-04-28 12:56] LABS: Color, Urine Yellow (Yellow); Glucose, Dipstick 50 mg/dl (Normal); Ketone-Dipstick Negative (Negative); Leukocyte Esterase-Dipstick Negative /ul (Negative); Nitrite-Dipstick Negative (Negative); Occult Blood-Urine 25 /ul (Negative); Protein-Dipstick 500 mg/dl (Negative); Specific Gravity, Urine 1.010 (1.002-1.030); Urine Bilirubin Dipstick Negative (Negative)
--- NOTE | 2025-04-28 13:41 | EX.ED.DYSGE1 ---
HPI History of Present Illness Chief Complaint: Headache Narrative Narrative: Patient is a 69-year-old male with past medical history of chronic kidney disease, hypercholesteremia, diabetes, paroxysmal SVT, complete heart block, hypertension, sick sinus syndrome, CVA, hyperlipidemia who presents to the emergency department chief complaint of headache not feeling well. He states that over the weekend he started not feeling well and developed a headache that progressively worsened throughout the weekend. He states that he has not been eating or drinking much since Monday as he has not had an appetite. Patient denies any falls or head injuries. Patient states that he took Tylenol earlier today for pain at 10:00 that slightly helped his headache. [facility] Medical History GI bleed due to NSAIDs Anemia Acute on chronic kidney failure Kidney failure Need for home health care Insulin dependent diabetes mellitus Leg cramps History of pain when walking Wears glasses Ambulates with cane High cholesterol Stroke/cerebrovascular accident Syncope Dietary restriction History of edema History of echocardiogram History of stress test Cardiology follow-up encounter Irregular heart beat Former smoker DVT (deep venous thrombosis) Pacemaker Diabetes mellitus Paroxysmal supraventricular tachycardia (06/2017) Complete heart block (02/2019) Essential (primary) hypertension Sick sinus syndrome Sinus pause CVA (cerebral vascular accident) (02/2019) Tachyarrhythmia HLD (hyperlipidemia) Home Medications ?Medication ?Instructions ?Recorded ?Last Taken ?Type atorvastatin 80 mg tablet 80 mg PO DAILY cholesterol 03/04/19 04/27/25 History multivitamin (Daily-Yousuf tablet) 1 tab PO DAILY SUPPLEMENT 03/11/22 12/25/23 History clopidogrel 75 mg tablet 75 mg PO DAILY 03/14/23 04/27/25 History aspirin 81 mg tablet,delayed 81 mg PO DAILY 04/07/23 04/27/25 History release insulin glargine 100 unit/mL (3 20 unit subcut DAILY DIABETES 04/07/23 04/28/25 History mL) subcutaneous pen (Lantus Solostar U-100 Insulin) trazodone 50 mg tablet 50 mg PO QHS 04/07/23 04/27/25 History insulin lispro 100 unit/mL 2 unit subcut TID 05/25/23 04/28/25 History subcutaneous pen hydralazine 50 mg tablet 150 mg PO DAILY 06/29/23 Unknown History amlodipine 10 mg tablet 10 mg PO DAILY 08/21/23 04/27/25 History metoprolol succinate 100 mg 100 mg PO QHS 08/21/23 04/27/25 History tablet,extended release 24 hr losartan 25 mg tablet 25 mg PO DAILY 04/28/25 04/27/25 History sodium bicarbonate 650 mg tablet 650 mg PO Q8H PRN 04/28/25 04/27/25 History tamsulosin 0.4 mg capsule 0.4 mg PO Q24H 04/28/25 04/27/25 History Allergy/AdvReac Type Severity Reaction Status Date / Time metformin (From Glucophage) AdvReac Diarrhea Verified 04/28/25 10:45 Family History Mother Cancer Father Heart disease Hypertension Myocardial infarction Surgical History History of hand surgery History of carpal tunnel release History of permanent cardiac pacemaker placement (03/05/19) Social History household members: none Smoking Status: Former smoker Smokeless tobacco user: other alcohol intake: never substance use type: does not use ROS ROS ED ROS Narrative Constitutional: Complains of headache and noted above denies lightheadedness or dizziness Eyes: Denies double vision blurry vision Cardiovascular: Denies chest pain Respiratory: Denies shortness of breath Abdomen: Denies abdominal pain nausea vomiting diarrhea : Denies any urinary symptoms Neurological: Denies any numbness, weakness, tingling Musculoskeletal: Denies back pain Skin: Denies any rashes or lesions EXAM Physical Exam Narrative Exam Narrative: General: Patient lying in bed rest comfortably does not appear to be in acute distress Head: Atraumatic, normocephalic Eyes: PERRL bilaterally, EOMI bilaterally, no conjunctival injection noted Neck: Soft, supple, trachea midline Cardiovascular: Regular rate and rhythm Respiratory: Clear to auscultation bilaterally Abdomen: Soft, nondistended, no tenderness palpation Extremities: +5/5 strength noted in the bilateral lower extremities, radial pulses +2/4 in bilateral extremities Neurological: Patient following commands knew that he was at [facility] the year is 2024 NIH of 0 GCS 15 Skin: Warm, dry, intact no rashes or lesions noted Const Vital Signs: 04/28/25 10:43 04/28/25 12:43 04/28/25 14:00 Temperature 98.5 F Temperature Source Oral Pulse Rate 65 71 61 Respiratory Rate 16 18 18 Blood Pressure 175/75 H 165/74 H 152/79 H Blood Pressure Mean 108 104 103 Pulse Ox 99 96 96 Oxygen Delivery Method Room Air Room Air Room Air 04/28/25 14:30 04/28/25 14:34 04/28/25 14:45 Temperature 98.2 F Temperature Source Pulse Rate 66 78 67 Respiratory Rate 18 Blood Pressure 202/85 H 152/79 H 202/83 H Blood Pressure Mean 124 103 122 Pulse Ox 97 Oxygen Delivery Method 04/28/25 14:50 04/28/25 16:00 Temperature Temperature Source Pulse Rate 63 71 Respiratory Rate 26 H Blood Pressure 202/79 H 178/79 H Blood Pressure Mean 120 112 Pulse Ox 99 Oxygen Delivery Method MDM MDM MDM Narrative Medical decision making narrative: Patient is a 69-year-old male who presents to the emergency department chief plaint headache and not feeling well. On the differential diagnosis includes but not limited to tension headache, migraine headache, electrolyte abnormality, upper respiratory infection second viral etiology, hypertensive emergency. Once workup is obtained reviewed he will be reevaluated. Patient be given Tylenol, Reglan, fluids Patient CBC reviewed which showed no evidence leukocytosis white blood count normal at 6, hemoglobin stable 11.2, platelet count 172. Patient sodium was 130, potassium normal 4.8, creatinine was 4.02 he has underlying chronic kidney disease however this is worse when compared to his previous chronic kidney disease, AST and ALT of 15 and 12 respectively lipase normal at 22. Patient urinalysis reviewed showed no evidence of infection.Patient's CT head brain without contrast showed chronic changes no acute findings several tiny lacunar infarcts in the basal ganglia suggestive of old lacunar infarct. Prominence of the CSF spaces overlying both cerebral hemispheres suggestive of possible old small bilateral subdural hematomas. The last CT head and brain have been computer was from 03/04/2023 which showed no acute findings at that point in time. Given we do not have a CT with the chronic bilateral subdural hematomas noted in his headaches with a elevated blood pressure we will discuss case with hospitalist for admission for MRI and further workup patient will be given 10 mg of labetalol IV Before given the medication nursing staff notified me that his blood pressure was a systolic of 152 therefore I told them to hold off on this. Discussed case with on-call neurosurgeon at [facility] with Dr. Tan and he states that the patient does not necessarily need transferred as there is nothing surgical to do for these and he can see the patient in the outpatient setting. I called back the hospitalist Dr. Esquivel and she notes that she still feels the patient warrants transfer therefore we will discuss the case with hospitalist at [place] per recommendation of the neurosurgeon Dr. Tan. Went back in as the patient's sister arrived and she is now requesting being transferred to [facility] I notified her that I have made several phone calls to [facility] already as this was his request but would gladly reach out to [facility]. We reached out to [facility] And they are approximately 30-40 medical beds deep waiting for patients to receive a bed as well as waiting for ICU beds therefore will stick with the plan of transferring to [facility] as they do not have any beds available and noted that this will be several days before beds will become available at [facility]. Spoke with hospitalist Dr. Gunderson at [facility] and he is requesting discussed case with community association manager as his blood pressure after hydralazine 20 mg IV was 178/79 with the chronic subdurals noted on the CT. I spoke with community association manager Dr. Denny at [facility] who will except the patient to the medical intensive care unit he states that we do not need to place the patient on a nicardipine drip we can give him clonidine and if he remains hypertensive prior to transfer we can give a another dose of hydralazine intravenously. Patient and family bedside was notified of this plan all question concerns answered. Lab Data Labs: Laboratory Results - last 24 hr 04/28/25 04/28/25 12:05 12:15 WBC 6.0 RBC 3.94 L Hgb 11.2 L Hct 35.2 L MCV 89.3 MCH 28.4 MCHC 31.8 L RDW Std Deviation 46.5 H RDW Coeff of Harry 14.0 Plt Count 172 MPV 9.4 Immature Gran % (Auto) 0.500 Neut % (Auto) 64.3 Lymph % (Auto) 24.2 [place] % (Auto) 8.9 Eos % (Auto) 1.8 Baso % (Auto) 0.3 Absolute Neuts (auto) 3.9 Absolute Lymphs (auto) 1.46 Nucleated RBC % 0 Sodium 138 Potassium 4.8 Chloride 107 Carbon Dioxide 19.2 L Anion Gap 12 BUN 54 H Creatinine 4.02 H Estim Creat Clear Calc 17.28 L Est GFR (MDRD) Non-Af 16 L BUN/Creatinine Ratio 13.4 Glucose 108 H Calcium 8.9 Total Bilirubin 0.48 AST 15 ALT 12 Alkaline Phosphatase 95 Total Protein 6.3 Albumin 3.7 Globulin 2.6 Albumin/Globulin Ratio 1.5 Lipase 22 Urine Color Yellow Urine Clarity Clear Urine pH 7.0 Ur Specific [place] 1.010 Urine Protein 500 H Urine Glucose (UA) 50 H Urine Ketones Negative Urine Occult Blood 25 H Urine Nitrite Negative Urine Bilirubin Negative Urine Urobilinogen Normal Ur Leukocyte Esterase Negative Urine RBC 0 SEEN Urine WBC 0 SEEN Ur Squamous Epith Cells 0 SEEN Urine Bacteria 0 SEEN Urine Mucus 0 SEEN Radiography Diagnostic Testing: Clinical Impression(s) from Imaging Studies Brain CT 04/28/25 11:40 IMPRESSION: CHRONIC CHANGES. NO ACUTE FINDINGS. Several tiny lacune seen in both basal ganglia suggestive of old lacunar infarcts. Prominence of the CSF spaces overlying both cerebral hemispheres suggestive of possible old small bilateral subdural hematomas. Reading Location: [place] [id number] Discharge Plan Triage Chief Complaint: Headache ED Provider: Ck Diane Dx/Rx/DC Orders Clinical Impression: Headache, Bilateral chronic intracranial subdural hematoma, Lacunar infarction, Hypertension Prescriptions: No Action clopidogrel 75 mg tablet 75 mg PO DAILY atorvastatin 80 MG tablet 80 mg PO DAILY multivitamin [Daily-Yousuf] Tablet 1 tab PO DAILY insulin glargine [Lantus Solostar U-100 Insulin] 100 unit/mL (3 mL) insulin pen 20 unit SUBCUT DAILY Rx Instructions: am aspirin 81 mg tablet,delayed release (DR/EC) 81 mg PO DAILY trazodone 50 mg tablet 50 mg PO QHS Rx Instructions: May take 50-100 mg nightly. insulin lispro 100 unit/mL insulin pen 2 unit SUBCUT TID hydralazine 50 mg Tablet 150 mg PO DAILY metoprolol succinate 100 mg tablet extended release 24 hr 100 mg PO QHS amlodipine 10 mg tablet 10 mg PO DAILY tamsulosin 0.4 mg capsule 0.4 mg PO Q24H sodium bicarbonate 650 mg tablet 650 mg PO Q8H PRN losartan 25 mg tablet 25 mg PO DAILY Primary Care Provider: Vera Lucas Referrals: Vera Lucas MD [Primary Care Provider, Internal Medicine] Print Language: Mozambican Disposition Disposition: DC/Tx to Another Type of HCF
--- NOTE | 2025-04-28 17:31 | CT_ITS ---
PROCEDURE: CT BRAIN/HEAD WITHOUT CONTRAST 04/28/2025 REASON FOR EXAM: ?SDH, 6 HOUR STABILITY SCAN TECHNIQUE: Procedure Code: CTBR Modality: CT Procedure: BRAIN/HEAD WITHOUT CONTRAST Coronal and Sagittal reconstruction series were provided. One or more dose reduction techniques were used (e.g., Automated exposure control, adjustment of the mA and/or kV according to patient size, use of iterative reconstruction technique. RADIATION DOSE SUMMARY: CTDlvol: 44.99 mGy DLP: 832.67 mGycm COMPARISON: Earlier same day 04/28/2025, 03/04/2023, 09/30/2022. FINDINGS: Thin bilateral late subacute-chronic subdural hematomas are stable in size/appearance from earlier today, but are a new development since 03/04/2023. No significant mass-effect or midline shift. No new acute or expanding intracranial hemorrhage. No acute appearing territorial infarct. Moderate chronic small-vessel ischemic changes with multiple old lacunar infarcts in the bilateral [place] radiata and basal ganglia. Normal ventricular caliber. Atherosclerotic vascular calcifications. Absent [place] ocular lenses. Intact skull base and calvarium. Well-aerated sinuses and mastoids. CT/Brain/Head without Contrast IMPRESSION: Stable thin late subacute-chronic subdural hematoma collections tracking along the bilateral cerebral convexities. No acute or expanding hemorrhage, or significant mass-effect. Reading Location: [facility]
--- NOTE | 2025-04-28 18:24 | PCA ---
ETA 1900 FOR SHANNAN GOING TO [facility] [id number]
--- NOTE | 2025-04-28 19:30 | ED.RN ---
Report called to Eileen GOODEN at [place]
== END 2025-04-28 19:35 | disposition short-term general hospital (02) ==
PROVIDERS: Emergency Provider Emergency Medicine; PCP Internal Medicine; Visit Provider Emergency Medicine
DX: I62.03 Nontraumatic chronic subdural hemorrhage (principal); E11.22 Type 2 diabetes mellitus with diabetic chronic kidney disease; Z79.4 Long term (current) use of insulin; N18.9 Chronic kidney disease, unspecified; I12.9 Hypertensive chronic kidney disease with stage 1 through stage 4 chronic kidney disease, or unspecified chronic kidney disease; E78.00 Pure hypercholesterolemia, unspecified; Z86.73 Personal history of transient ischemic attack (TIA), and cerebral infarction without residual deficits; Z79.02 Long term (current) use of antithrombotics/antiplatelets; Z79.82 Long term (current) use of aspirin; Z79.899 Other long term (current) drug therapy; Z95.0 Presence of cardiac pacemaker; Z87.891 Personal history of nicotine dependence; Z86.718 Personal history of other venous thrombosis and embolism
CPT/HCPCS: 70450; 80053; 81001; 83690; 85025; 93005; 96361; 96374; 96375; 96376; 99285; A4216

== ENCOUNTER 2025-07-18 12:26 | Observation (INO) | payer MEDICAID, SELFPAY ==
[2025-07-18] VITALS (7 sets, daily range): BP systolic 167–196; BP diastolic 67–82; PULSE 62–69; RESP 16–18; TEMP 36.6–36.8; O2SAT 95–100; BMI 22.1; BMI 21.8
--- NOTE | 2025-07-18 13:35 | RAD_ITS ---
PROCEDURE: CHEST PA AND LATERAL 07/18/2025 REASON FOR EXAM: WEAKNESS TECHNIQUE: Procedure Code: RADCXR Modality: DX Procedure: CHEST PA AND LATERAL COMPARISON: Chest x-ray of 12/25/2023. RAD/Chest PA and Lateral IMPRESSION: Left thoracic transvenous pacemaker with atrial and ventricular leads appears u nchanged. A mildly calcified aorta is noted. No evidence of cardiomegaly. Lungs appear clear of acute disease, and unchanged. No pleural effusion or pneumothorax is noted. No acute osseous change is seen. No evidence of acute cardiopulmonary disease. Reading Location: [id number]
--- NOTE | 2025-07-18 13:35 | CT_ITS ---
PROCEDURE: BRAIN/HEAD WITHOUT CONTRAST 07/18/2025 REASON FOR EXAM: FALLS ON PLAVIX TECHNIQUE: Procedure Code: CTBR Modality: CT Procedure: BRAIN/HEAD WITHOUT CONTRAST Coronal and Sagittal reconstruction series were provided. One or more dose reduction techniques were used (e.g., Automated exposure control, adjustment of the mA and/or kV according to patient size, use of iterative reconstruction technique. COMPARISON: CT head 04/28/2025 FINDINGS: There is no extra-axial or intra-axial intracranial hemorrhage. No mass effect or midline shift is seen. The ventricles, sulci, and cisterns are normal in size and shape for the patient's age. There is normal chery-white matter differentiation. The posterior fossa is grossly unremarkable. The skull is unremarkable. Visualized paranasal sinuses are clear. The mastoid air cells show normal translucency. CT/Brain/Head without Contrast IMPRESSION: No intracranial hemorrhage. No mass effect or midline shift. Reading [facility]
--- NOTE | 2025-07-18 13:35 | EKG12_ITS ---
Test Reason : HIGH BP Blood Pressure : */* mmHG Vent. Rate : 62 BPM Atrial Rate : * BPM P-R Int : * ms QRS Dur : 94 ms QT Int : 450 ms P-R-T Axes : * -17 118 degrees QTcB Int : 456 ms Normal sinus rhythm Minimal voltage criteria for LVH, may be normal variant ( R in aVL ) ST & T wave abnormality, consider anterior ischemia Abnormal ECG When compared with ECG of 28-Apr-2025 11:56, Junctional rhythm has replaced Electronic atrial pacemaker Nonspecific T wave abnormality, worse in Inferior leads Confirmed by BRIELLE VILLA, KIMBERLY ([id number]), news video editor BROCK KWONG ([id number]) on 07/21/2025 6:48:58 AM Referred By: Confirmed By: KIMBERLY HANNAH MD
--- NOTE | 2025-07-18 13:43 | EX.ED.DYSGE1 ---
HPI History of Present Illness Chief Complaint: Hypertension Detail of Chief Complaint: Fell 3 times at home in the last week. Informant: patient Onset/Context/Timing Onset: Days Context: Gradual Onset Timing: Continuous Current Severity: Mild Maximum Severity: Mild Narrative Narrative: 69-year-old male history of hypertension, diabetes prior stroke. Said he lives alone in apartment. Says blood pressure has been running higher. Today was 180/84. Also states he feels weak and has fallen 3 times in the last week. Denies any injuries. Does not believe he hit his head or was knocked unconscious. He is on Plavix reportedly. That is on his med list he is really unsure of his medications and does not have a list with him and there is no one else with him. He denies any nausea, vomiting or diarrhea. He denies fever or chills. He denies dysuria. Prior similar symptoms: Yes Recent Illness/Hospitalization: No PFSH PFSH Medical History GI bleed due to NSAIDs Anemia Acute on chronic kidney failure Kidney failure Need for home health care Insulin dependent diabetes mellitus Leg cramps History of pain when walking Wears glasses Ambulates with cane High cholesterol Stroke/cerebrovascular accident Syncope Dietary restriction History of edema History of echocardiogram History of stress test Cardiology follow-up encounter Irregular heart beat Former smoker DVT (deep venous thrombosis) Pacemaker Diabetes mellitus Paroxysmal supraventricular tachycardia (06/2017) Complete heart block (02/2019) Essential (primary) hypertension Sick sinus syndrome Sinus pause CVA (cerebral vascular accident) (02/2019) Tachyarrhythmia HLD (hyperlipidemia) Home Medications ?Medication ?Instructions ?Recorded ?Last Taken ?Type atorvastatin 80 mg tablet 80 mg PO DAILY cholesterol 03/04/19 04/27/25 History multivitamin (Daily-Yousuf tablet) 1 tab PO DAILY SUPPLEMENT 03/11/22 12/25/23 History clopidogrel 75 mg tablet 75 mg PO DAILY 03/14/23 04/27/25 History aspirin 81 mg tablet,delayed 81 mg PO DAILY 04/07/23 04/27/25 History release insulin glargine 100 unit/mL (3 20 unit subcut DAILY DIABETES 04/07/23 04/28/25 History mL) subcutaneous pen (Lantus Solostar U-100 Insulin) trazodone 50 mg tablet 50 mg PO QHS 04/07/23 04/27/25 History insulin lispro 100 unit/mL 2 unit subcut TID 05/25/23 04/28/25 History subcutaneous pen hydralazine 50 mg tablet 150 mg PO DAILY 06/29/23 Unknown History amlodipine 10 mg tablet 10 mg PO DAILY 08/21/23 04/27/25 History metoprolol succinate 100 mg 100 mg PO QHS 08/21/23 04/27/25 History tablet,extended release 24 hr losartan 25 mg tablet 25 mg PO DAILY 04/28/25 04/27/25 History sodium bicarbonate 650 mg tablet 650 mg PO Q8H PRN 04/28/25 04/27/25 History tamsulosin 0.4 mg capsule 0.4 mg PO Q24H 04/28/25 04/27/25 History Allergy/AdvReac Type Severity Reaction Status Date / Time metformin (From Glucophage) AdvReac Diarrhea Verified 07/18/25 12:31 Family History Mother Cancer Father Heart disease Hypertension Myocardial infarction Surgical History History of hand surgery History of carpal tunnel release History of permanent cardiac pacemaker placement (03/05/19) Social History household members: none Smoking Status: Former smoker Smokeless tobacco user: other alcohol intake: never substance use type: does not use ROS ROS ED ROS Narrative Generalized weakness. Falls. Elevated blood pressure. Denies recent illness. Constitutional Constitutional ED: Denies chills or fever(s) Eyes Eyes: Denies blurry vision ENT ENT ED: Denies ear pain Cardiovascular Cardiovascular: Denies chest pain Respiratory/Chest Respiratory/Chest: Denies cough or dyspnea Gastrointestinal Gastrointestinal: Denies abdominal pain, diarrhea, nausea or vomiting Genitourinary Genitourinary ED: Denies dysuria Musculoskeletal Musculoskeletal: Denies arthralgias or back pain Integumentary Denies abscess Neurologic Neurologic: Denies headache(s) Psychiatric Psychiatric: Denies anxiety Endocrine Endocrinology: Denies cold intolerance Hematologic/Lymphatic Hematologic/Lymphatic: Reports none Allergic/Immunologic Allergic/Immunologic ED: Denies mouth swelling, tongue swelling or urticaria EXAM Physical Exam Narrative Exam Narrative: Well-appearing 39-year-old male sitting upright in bed. Vital signs are stable afebrile he does not look septic toxic is no acute distress. Initial blood pressure 167/78. Pulse ox 100% on room air no hypoxia. H EENT exam pupils round react to light. Moist mutes membranes. No trauma to his face or scalp. Nontender no hematoma. C-spine and neck nontender. Back nontender. No bruising. Lungs clear to auscultation bilaterally. Heart regular rhythm no murmur. Chest wall ribs nontender. Abdomen soft nontender. Moving all 4 extremities. Nontender no deformity. 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 Normal dorsi plantarflexion. No deformity. No shortening or rotation either hip. Neurologically is awake alert. He is answering questions following commands. He knows the month, year, president denied states and currently where he is. Const Vital Signs: 07/18/25 12:26 07/18/25 14:03 07/18/25 14:06 Temperature 98.3 F Temperature Source Oral Pulse Rate 67 64 Respiratory Rate 18 18 Respiratory Effort Normal Non-Labored Respiratory Pattern Normal Blood Pressure 167/78 H 196/74 H Blood Pressure Mean 107 114 Pulse Ox 99 100 Oxygen Delivery Method Room Air Room Air MDM MDM MDM Narrative Medical decision making narrative: 69-year-old male with acute on chronic hypertension with 3 falls at home over the last week he lives alone. Screening labs will be obtained. A CT of his brain. Repeat exam unchanged. Nurses get the patient up he was significantly off balance and actually nearly fell going out of the room into a cart. I spoke to the hospitalist he will be admitted. History & Record Review Discussion w/independent historian: Patient Lab Data Attestation: I reviewed the patient's lab results. Lab results narrative: CBC shows a white count 5.6 H&H 9.9 and 31. Consistent with his baseline anemia between 7 and 11. Platelets 173. Chemistries show potassium 5.2. Gap 12. BUN and creatinine are 72 and 4.83 consistent with his chronic kidney disease. Glucose 229. UA is negative. No nitrates. No white or red cells. No bacteria. Labs: Laboratory Results - last 24 hr 07/18/25 07/18/25 13:50 14:05 WBC 5.6 RBC 3.58 L Hgb 9.9 L Hct 31.5 L MCV 88.0 MCH 27.7 MCHC 31.4 L RDW Std Deviation 43.2 RDW Coeff of Harry 13.3 Plt Count 173 MPV 9.5 Immature Gran % (Auto) 0.700 Neut % (Auto) 62.0 Lymph % (Auto) 27.0 [place] % (Auto) 6.9 Eos % (Auto) 3.0 Baso % (Auto) 0.4 Absolute Neuts (auto) 3.5 Absolute Lymphs (auto) 1.52 Nucleated RBC % 0 Sodium 139 Potassium 5.2 H Chloride 108 Carbon Dioxide 19.0 L Anion Gap 12 BUN 72 H Creatinine 4.83 H Estim Creat Clear Calc 14.23 L Est GFR (MDRD) Non-Af 12 L BUN/Creatinine Ratio 15.0 Glucose 229 H Calcium 8.9 Urine Color Straw Urine Clarity Clear Urine pH 6.0 Ur Specific [place] 1.015 Urine Protein 500 H Urine Glucose (UA) 250 H Urine Ketones Negative Urine Occult Blood 25 H Urine Nitrite Negative Urine Bilirubin Negative Urine Urobilinogen Normal Ur Leukocyte Esterase Negative Urine RBC 0-5 SEEN Urine WBC 0-5 SEEN Ur Squamous Epith Cells 0 SEEN Urine Bacteria 0 SEEN Urine Mucus 0 SEEN Radiography Chest X-Ray - ED: Read by ED Physician, Read by Radiologist, Normal, Heart, Lungs, Mediastinum, Bony Structures, No Acute Disease and Chronic Changes Diagnostic Testing: Clinical Impression(s) from Imaging Studies Chest X-Ray 07/18/25 13:35 IMPRESSION: Left thoracic transvenous pacemaker with atrial and ventricular leads appears unchanged. A mildly calcified aorta is noted. No evidence of cardiomegaly. Lungs appear clear of acute disease, and unchanged. No pleural effusion or pneumothorax is noted. No acute osseous change is seen. No evidence of acute cardiopulmonary disease. Reading Location: [address] Chest x-ray, 2 views, AP and lateral, interpreted both by myself and the radiologist. Shows normal cardiac silhouette. Normal lung patel. Left-sided pacemaker. No pneumonia. No effusions. No acute process. Chronic changes. Rhythm Strip Rhythm Strip: Sinus Rhythm Rate: 62 Ectopy: None EKG Initial EKG: Attestation: I personally reviewed and interpreted this EKG as follows: Interpretation: Sinus Rhythm and No Acute Injury Pattern Comments: Normal sinus rhythm rate of 62 no acute signs of IN or ischemia. No dysrhythmia. Discharge Plan Dx/Rx/DC Orders Clinical Impression: Frequent falls, Unable to ambulate, Chronic kidney disease, Diabetes, History of stroke Disposition Disposition: Acute Care Hospital [facility]
[2025-07-18 13:57] LABS: Hematocrit 31.5 % (40-54); Hemoglobin 9.9 g/dL (13.0-16.5); Immature Granulocytes Count 0.040 X10^3/uL (0.0-0.0); Mean Corp Hgb Conc 31.4 g/dL (32-36); Mean Corpuscular Volume 88.0 fL (80-94); Mean Platelet Vol. 9.5 fl (6.2-12.0); NRBC Flagged by Analyzer 0 % (0-5); Platelet Count 173 K/mm3 (150-450); RBC Distribution Width CV 13.3 % (11.6-14.6); RBC Distribution Width SD 43.2 fl (35.1-43.9); Red Blood Count 3.58 M/mm3 (4.6-6.2); White Blood Count 5.6 K/mm3 (4.4-11.0)
[2025-07-18 14:12] LABS: Mucous, Urine 0 SEEN /hpf (<or=2+); Squamous Epithelial Cells - UA 0 SEEN /hpf (0-5)
[2025-07-18 14:25] LABS: Anion Gap 12 (5-15); BUN 72 mg/dL (4-19); BUN/Creat Ratio 15.0 RATIO (10-20); Calcium,Total 8.9 mg/dL (7.6-11.0); Carbon Dioxide 19.0 mmol/L (21.0-32.0); Chloride 108 mmol/L (98-108); Estimated Creatinine Clearance 14.23 ml/min (50-250); Glucose 229 mg/dL (70-99); Potassium 5.2 mmol/L (3.3-5.1)
[2025-07-18 14:26] LABS: Color, Urine Straw (Yellow); Glucose, Dipstick 250 mg/dl (Normal); Ketone-Dipstick Negative (Negative); Leukocyte Esterase-Dipstick Negative /ul (Negative); Nitrite-Dipstick Negative (Negative); Occult Blood-Urine 25 /ul (Negative); Protein-Dipstick 500 mg/dl (Negative); Specific Gravity, Urine 1.015 (1.002-1.030); Urine Bilirubin Dipstick Negative (Negative)
[2025-07-18 14:46] LABS: Red Blood Cells-Urine 0-5 SEEN /hpf (0-5)
--- NOTE | 2025-07-18 16:11 | PCM.HP.STD ---
HPI - General General Date of Admission: 07/18/25 Date of Service: 07/18/25 Chief Complaint: frequent falls, weakness HPI Narrative LOU JULIEN, is a 69 M as outlined was admitted through the ED on 07/18/2025 with complaint of weakness and mechanical falls. He said he had vomited 3 times on the day of admission. He denied any dizziness or lightheadedness, headache or palpitations and said he just felt weak and his legs gave way. He denied any nausea or vomiting or diarrhea and said he had been eating and drinking well. He has a history of type 2 diabetes mellitus and chronic kidney disease also. He said his blood pressure had also been running high and that he takes a lot of blood pressure medications which names he cannot remember. He claims compliance with his BP meds. Review of systems otherwise negative. Vitals in the ED where blood pressure 196/74, pulse rate of 64, respiratory rate of 18 and oxygen saturation of 100% on room air. CBC showed hemoglobin of 9.9 with WBC of 5.6 and platelets of 173. Chemistry shows sodium of 139 with potassium of 5.2 and bicarb of 19. Creatinine was 4.83. Anion gap was 12. Urinalysis showed no evidence of UTI. Chest x-ray showed left thoracic transvenous pacemaker with atrial and ventricular leads appearing unchanged and a mildly calcified aorta but no evidence of cardiomegaly and lungs showed no acute pulmonary pathology. CT brain showed no acute intracranial hemorrhage. He was admitted to be managed for debility and frequent falls in the setting of poorly controlled blood pressure. [facility] Medical History GI bleed due to NSAIDs Anemia Acute on chronic kidney failure Kidney failure Need for home health care Insulin dependent diabetes mellitus Leg cramps History of pain when walking Wears glasses Ambulates with cane High cholesterol Stroke/cerebrovascular accident Syncope Dietary restriction History of edema History of echocardiogram History of stress test Cardiology follow-up encounter Irregular heart beat Former smoker DVT (deep venous thrombosis) Pacemaker Diabetes mellitus Paroxysmal supraventricular tachycardia (06/2017) Complete heart block (02/2019) Essential (primary) hypertension Sick sinus syndrome Sinus pause CVA (cerebral vascular accident) (02/2019) Tachyarrhythmia HLD (hyperlipidemia) Home Medications ?Medication ?Instructions ?Recorded ?Last Taken ?Type atorvastatin 80 mg tablet 80 mg PO DAILY cholesterol 03/04/19 04/27/25 History multivitamin (Daily-Yousuf tablet) 1 tab PO DAILY SUPPLEMENT 03/11/22 12/25/23 History clopidogrel 75 mg tablet 75 mg PO DAILY 03/14/23 04/27/25 History aspirin 81 mg tablet,delayed 81 mg PO DAILY 04/07/23 04/27/25 History release insulin glargine 100 unit/mL (3 20 unit subcut DAILY DIABETES 04/07/23 04/28/25 History mL) subcutaneous pen (Lantus Solostar U-100 Insulin) trazodone 50 mg tablet 50 mg PO QHS 04/07/23 04/27/25 History insulin lispro 100 unit/mL 2 unit subcut TID 05/25/23 04/28/25 History subcutaneous pen hydralazine 50 mg tablet 150 mg PO DAILY 06/29/23 Unknown History amlodipine 10 mg tablet 10 mg PO DAILY 08/21/23 04/27/25 History metoprolol succinate 100 mg 100 mg PO QHS 08/21/23 04/27/25 History tablet,extended release 24 hr losartan 25 mg tablet 25 mg PO DAILY 04/28/25 04/27/25 History sodium bicarbonate 650 mg tablet 650 mg PO Q8H PRN 04/28/25 04/27/25 History tamsulosin 0.4 mg capsule 0.4 mg PO Q24H 04/28/25 04/27/25 History Allergy/AdvReac Type Severity Reaction Status Date / Time metformin (From Glucophage) AdvReac Diarrhea Verified 07/18/25 12:31 Family History Mother Cancer Father Heart disease Hypertension Myocardial infarction Surgical History History of hand surgery History of carpal tunnel release History of permanent cardiac pacemaker placement (03/05/19) Social History household members: none Smoking Status: Former smoker Smokeless tobacco user: other alcohol intake: never substance use type: does not use ROS Constitutional Constitutional: Reports fatigue, malaise and weakness; Denies anorexia, chills or fever(s) Eyes Eyes: Denies change in vision ENT HEENT: Denies dysphagia, headache(s) or sore throat Cardiovascular Cardiovascular: Denies dyspnea on exertion, lightheadedness, orthopnea, palpitations, paroxysmal nocturnal dyspnea, rapid heart rate or syncope Respiratory/Chest Respiratory/Chest: Denies cough, dyspnea, shortness of breath at rest or shortness of breath with exertion Gastrointestinal Gastrointestinal: Denies abdominal pain, nausea or vomiting Genitourinary Genitourinary: Denies dysuria Musculoskeletal Musculoskeletal: Denies back pain Neurologic Neurologic: Denies confusion, dizziness, focal weakness, headache(s) or numbness Psychiatric Psychiatric: Denies anxiety or depression Endocrine Endocrinology: Denies cold intolerance Vital Signs Vital Signs Vital Signs: 07/18/25 12:26 07/18/25 14:03 07/18/25 14:06 Temperature 98.3 F Temperature Source Oral Pulse Rate 67 64 Respiratory Rate 18 18 Respiratory Effort Normal Non-Labored Respiratory Pattern Normal Blood Pressure 167/78 H 196/74 H Blood Pressure Mean 107 114 Pulse Ox 99 100 Oxygen Delivery Method Room Air Room Air Weight Weight: 149 lb 7.574 oz Body Mass Index (BMI) 22.1 Physical Exam Const alert, oriented x3 and no apparent distress Constitutional Narrative: frail, looks weak General Appearance: cooperative HEENT normocephalic, head/scalp atraumatic and hearing grossly normal bilaterally HEENT Narrative: dry oral mucosal membranes Mouth: moist mucous membranes abnormal Neck supple Resp normal respiratory effort, no use of accessory muscles and clear to auscultation bilaterally Cardio regular rate, regular rhythm, S1 normal heart sound, S2 normal heart sound and no murmurs GI normal to inspection, nondistended, normoactive bowel sounds, soft to palpation, non-tender and non-distended Extremity normal to inspection, full ROM and no clubbing, cyanosis or edema Neuro oriented x3, moves all extremities and no focal motor deficits Sensorium / Orientation: awake and alert Motor Exam: strength 5/5 throughout Psych Psych Narrative: flat affect, looks frail and weak Results Lab / Micro Data 07/18/25 13:50 07/18/25 13:50 Labs: Laboratory Results - last 24 hr 07/18/25 13:50: WBC 5.6, RBC 3.58 L, Hgb 9.9 L, Hct 31.5 L, MCV 88.0, MCH 27.7, MCHC 31.4 L, RDW Std Deviation 43.2, RDW Coeff of Harry 13.3, Plt Count 173, MPV 9.5, Immature Gran % (Auto) 0.700, Neut % (Auto) 62.0, Lymph % (Auto) 27.0, Greer % (Auto) 6.9, Eos % (Auto) 3.0, Baso % (Auto) 0.4, Absolute Neuts (auto) 3.5, Absolute Lymphs (auto) 1.52, Nucleated RBC % 0, Sodium 139, Potassium 5.2 H, Chloride 108, Carbon Dioxide 19.0 L, Anion Gap 12, BUN 72 H, Creatinine 4.83 H, Estim Creat Clear Calc 14.23 L, Est GFR (MDRD) Non-Af 12 L, BUN/Creatinine Ratio 15.0, Glucose 229 H, Calcium 8.9 07/18/25 14:05: Urine Color Straw, Urine Clarity Clear, Urine pH 6.0, Ur Specific Rockwell 1.015, Urine Protein 500 H, Urine Glucose (UA) 250 H, Urine Ketones Negative, Urine Occult Blood 25 H, Urine Nitrite Negative, Urine Bilirubin Negative, Urine Urobilinogen Normal, Ur Leukocyte Esterase Negative, Urine RBC 0-5 SEEN, Urine WBC 0-5 SEEN, Ur Squamous Epith Cells 0 SEEN, Urine Bacteria 0 SEEN, Urine Mucus 0 SEEN Rhythm Strip Rhythm Strip: Sinus Rhythm Rate: 62 Ectopy: None Imaging Radiology Impression Brain CT 07/18/25 13:35 IMPRESSION: No intracranial hemorrhage. No mass effect or midline shift. Reading Location: [facility] Chest X-Ray 07/18/25 13:35 IMPRESSION: Left thoracic transvenous pacemaker with atrial and ventricular leads appears unchanged. A mildly calcified aorta is noted. No evidence of cardiomegaly. Lungs appear clear of acute disease, and unchanged. No pleural effusion or pneumothorax is noted. No acute osseous change is seen. No evidence of acute cardiopulmonary disease. Reading Location: [address] Assessment & Plan Assessment/Plan (1) Unable to ambulate: (2) Frequent falls: (3) Chronic kidney disease: PLAN: Plan #Debility and weakness due to frequent falls Patient admitted with complaint of weakness and frailness and frequent falls. Said he had fallen at least 3 times today. He did not pass out or feel dizzy or lightheaded. His legs just gave way and he fell. CT of the brain showed no acute intracranial pathology. Chest x-ray also showed no acute cardiopulmonary pathology. Urinalysis shows no evidence of UTI. PT OT on board. Fall precautions. Hydrate gently with IV fluid normal saline at 125 cc/h #Poorly controlled hypertension: Blood pressure elevated in the 190s systolic. Patient states he is on a whole lot of blood pressure medications and claims compliance with all of them. On amlodipine, hydralazine, losartan and metoprolol. Hold losartan for now due to worsening kidney function. IV hydralazine as needed #VENICE on CKD stage IV with hyperkalemia Creatinine is 4.83. Baseline creatinine from 2024 is 3.61. Creatinine on 04/28/2025 was 4.02. This therefore appears to be an VENICE on CKD Hydrate gently with IV fluids. Get renal ultrasound. Potassium is also 5.2. Will give Kayexalate and trend potassium. Hold lisinopril and other nephrotoxic medication. Already on sodium bicarbonate. I will continue. Renal ultrasound from May 08, 2023 showed bilateral echogenic kidneys suspicious for chronic medical renal disease #BPH: On Flomax #History of colonic adenoma with high-grade dysplasia: Stable #Anemia Hemoglobin is 9.9. He had a history of anemia and had EGD and colonoscopy on June 22, 2023 which showed grade a esophagitis and metaplasia with Schatzki ring and minimal oozing gastric ulcers in the duodenum. Colonoscopy showed 6 polyps with 1 having focal high-grade dysplasia. He also had capsule endoscopy on March 21, 2023 which showed small amount of blood seen in the stomach without identifiable source. Has followed up with Dr. Javier in the past. Baseline hemoglobin in the past was between 7 and 8 though as that is 04/28/2025 hemoglobin was 11.2. Will monitor closely. Check iron profile to see if he will benefit from ferritin. #Type 2 diabetes mellitus: On Lantus 20 units daily. Insulin sliding scale. ACT checks ACHS. #History of sick sinus syndrome and complete heart block: S/p pacemaker. Stable #Hyperlipidemia: On statin DVT prophylaxis: Heparin CODE STATUS: Full code Patient counseled extensively about different types of CODE STATUS including full code, DNR CCA and DNR CCA. Patient elects to be full code. Total [id number] time 16 minutes. Charges/Coding Visit Charges Inpatient E&M: 14333 Init Hosp L3 Procedures Hospitalists Procedures: 64611 Advncd Care Plan 30 Min
--- NOTE | 2025-07-18 16:34 | CASEMGMT ---
Care Management Face to Face with patient for initial transition planning/care coordination assessment in the ED.? This speech writer introduced self and role at [facility]. Patient alert and oriented. Patient willing to participate in assessment and is able to answer all questions appropriately.? Care providers, pharmacy, and demographics verified. Admitting Diagnosis: ??weakness Other diagnosis history: ?DM, anemia, GI bleed, stroke PCP: ?Lance Specialists: ?Dr. Harris Preferred Pharmacy: [facility] Insurance: ?Medicaid Prescription Benefit: ?yes Living Will/HPOA: ?patient has a HPOA, no LW.? Sister is named as primary agent LNOK: sister Living Arrangements: ?patient lives alone in apartment.? Has [facility], that he sees quarterly. Also has an aide that comes 5 days a week to help with bathing/dressing, cleaning, cooking, bill pay, etc. Transportation: patient uses [employer] DME: ?shower chair, hand held shower, medical alert, hospital bed, cane, glucometer and supplies, walker, and wheelchair HHC: [facility] ?[facility] Resources: ?[facility] History: ?None Patient goals: Patient wishes to discharge home. Patient denies any further needs or concerns at this time. Disposition Plan: admission to acute; RN STONE/SW to follow for discharge planning needs that may arise. Crystal Hamilton, SHOW HOST/HOSTESS, A/C TECH
--- OUTSIDE RECORDS SUMMARY | 2025-07-18 16:38 | XMS RPT_ITS | CCD ---
Author Organization [facility] Care Team Providers Care Toy Consultant Name Role Phone Vera Manrique MD [facility] Vera Manrique Primary Care Provider Dr. Mitch Harris Attending Provider Dr. Mitch Harris Referring Provider Dr. Vera Manrique Primary Care Provider Dr. Vera Manrique Referring Provider Diana MILNER, [place] Consuelo Ma Attending Provider Dr. Taisha Luis Emergency Provider Dr. Roberto Whitmore Admit Provider Dr. Roberto Whitmore Other Provider FRANCESCO Beckman Attending Provider Unavail able Casandra Gorman Attending Provider Unavailable Dr. Edilia Moe Attending Provider Dr. Ginny Merida Attending Provider Dr. Roberto Whitmore Attending Provider FRANCESCO Beckman Attending Provider Unavail Dr. Juice Turner Emergency Provider Dr. Catherine Saravia Attending Provider ORQUIDEA HUSSEIN MD Attending Unavailable ORQUIDEA HUSSEIN MD Primary Care Unavailable ORQUIDEA HUSSEIN MD Admitting Unavailable GANTA, VERA PAUL Referring Unavailable VERA MANRIQUE PAUL Consulting Unavailable PROVIDER, UNKNOWN Consulting Unavailable Dr. Ish Bauer Attending Provider Dr. Catherine Saravia Admit Provider Dr. Catherine Saravia Other Provider Payal, Dr. Yeboah Attending Provider Dr. Edilia Moe Other Provider Vera Manrique MD Primary Care Provider [facility], Renuka Unavailable [facility], Renuka Unavailable Vera Manrique MD Primary Care Provider [facility], Renuka Unavailable Dr. Vera Manrique Referring Provider Friend, Dr. Núñez Attending Provider [phone] Dr. Nini Lo Primary Care Provider Dr. Vera Manrique Primary Care Provider Dr. Tiffanie Mckeon Attending Provider Vera Manrique MD Primary Care Provider Dr. Vera Manrique Primary Care Provider Dr. Vera Manrique Referring Provider Dr. Wilton Javier Attending Provider [phone] Dr. Mitch Harris Attending Provider [phone] Vera Manrique Primary Care Provider Dr. Vera Manrique Referring Provider Dr. Wilton Javier Attending Provider [phone] Dr. Mitch Harris Attending Provider [phone] Juice Villarreal Attending Provider [phone] Anastasia Stark Referring Provider Dr. Wilton Javier Other Provider [phone]([phone] Vera Manrique Primary Care Provider Ganta, Dr. Vera Referring Provider Friend, Dr. Núñez Attending Provider Lance VILLA, Vera Primary Care Provider Denbow PA-C, Toya L Unavailable Older RUNNING SPECIALIST.HELIARC WELDER, Taco Unavailable Bogner PA-C, Angie Unavailable Denbow PA-C, Toya L Unavailable Bogner PA-C, Angie Unavailable Lance VILLA, Dr. Gamez Primary Care Provider Dr. Juice Suero DO Emergency Provider Dr. Juice Suero DO Attending Provider Dr. Leonel Horton DO Emergency Provider DR VERA MANRIQUE MD Primary Care Physician Lopez Rounding Nurse, Aubrey Unavailable Gale YANEZ, Tiffany M Unavailable Unavailable Ganta, Vera Primary Care Unavailable Wilton Javier Attending Unavailable Ganta, Vera Referring Unavailable Ganta, Vera Primary Care Unavailable Casandra Gorman Attending Unavailable Ganta, Vera Referring Unavailable Consuelo Franco Attending Unavail able Ganta, Vera Primary Care Unavailable Ganta, Vera Referring Unavailable Ganta, Vera Referring Unavailable Ganta, Vera Primary Care Unavailable Casandra Gorman Attending Unavailable Ganta, Vera Referring Unavailable Johnnie STEEL MANAGERFelisa Attending Unavailable Ganta, Vera Primary Care Unavailable Juice Suero Attending Unavailable Ganta, Vera Primary Care Unavailable Ganta, Vera Primary Care Unavailable Leonel Horton Attending Unavailable Jewell Hua Attending Unavailable Jewell Hua Referring Unavailable Ganta, Vera Primary Care Unavailable Ganta, Vera Primary Care Unavailable Ck Diane Attending Unavailable Ganta, Vera Primary Care Unavailable Newman, Charles Attending Unavailable Newman, Charles Referring Unavailable Dr. Vera Manrique MD Primary Care Physician Dr. Leonel Horton DO Attending Physician Sol JONES, Dr. Castaneda Emergency Department Physi marin Roxi JONES, Dr. Stover Attending Physician Roxi JONES, Dr. Stover Emergency Department Physic shakir RAHAT VILLA, GILBERT Attending Unavailhuber MANRIQUE MD, DR VERA Donohue Primary Care Unavailhuber VILLALOBOS MD, DR SHAW Consulting Unavailable ROSALINDA VILLA, [facility] Admitting Unavailable SHAQUILLE VILLA, SCOTT Howard Unavailable MASCI, NINI A Referring Unavailable GANTA, VERA Primary Care Unavailable MASCI, NINI A Referring Unavailable GANTA, VERA Primary Care Unavailable CIULLJANICE Canas Attending Unavailable SELF Referring Unavailable GANTA, VERA Primary Care Unavailable MASCI, NINI A Referring Unavailable GANTA, VERA Primary Care Unavailable CIULLJANICE Canas Referring Unavailable GANTA, VERA Primary Care Unavailable MASCI, NINI A Referring Unavailable GANTA, VERA Primary Care Unavailable MASCI, NINI A Referring Unavailable GANTA, VERA Primary Care Unavailable MASCI, NINI A Referring Unavailable GANTA, VERA Primary Care Unavailable MASCI, NINI Best Referring Unavailable GANTA, [facility] Primary Care Unavailable SELRC SCHWARZ Referring Unavailable GANTA, VERA Primary Care Unavailable GANTA, VERA Primary Care Unavailable MASCI, NINI A Referring Unavailable GANTA, VERA Primary Care Unavailable MASCI, NINI Best Referring Unavailable GANTA, VERA Primary Care Unavailable SELRC SCHWARZ Attending Unavailable JANICE HODGES Referring Unavailable GANTA, VERA Primary Care Unavailable GANTA, VERA Primary Care Unavailable MASCI, NINI A Referring Unavailable GANTA, VERA Primary Care Unavailable CIULLJANICE Canas Referring Unavailable GANTA, VERA Primary Care Unavailable OCTAVIO MONSALVE Attending Unavailable GANTA, VERA Primary Care Unavailable MASCI, NINI A Referring Unavailable GANTA, VERA Primary Care Unavailable MASCI, NINI A Referring Unavailable GANTA, VERA Primary Care Unavailable KATELYN LEYVA Attending Unavaila ble GANTA, VERA Referring Unavailable GANTA, VERA Primary Care Unavailable MASCI, NINI A Referring Unavailable GANTA, VERA Primary Care Unavailable FAVIOLA HOLMAN Attending Unavailable MASCI, NINI A Referring Unavailable GANTA, VERA Primary Care Unavailable MASCI, NINI A Referring Unavailable GANTA, VERA Primary Care Unavailable GANTA, VERA Primary Care Unavailable MASCI, NINI A Referring Unavailable GANTA, VERA Primary Care Unavailable GANTA, VERA Primary Care Unavailable MASCI, NINI A Attending Unavailable GANTA, VERA Primary Care Unavailable GANTA, VERA Primary Care Unavailable MASCI, NINI A Referring Unavailable GANTA, VERA Primary Care Unavailable MASCI, NINI A Referring Unavailable GANTA, VERA Primary Care Unavailable MASCI, NINI A Referring Unavailable GANTA, VERA Primary Care Unavailable MASCI, NINI A Referring Unavailable GANTA, VERA Primary Care Unavailable GANTA, VERA Primary Care Unavailable OCTAVIO MONSALVE Attending Unavailable MASCI, NINI Best Referring Unavailable GANTA, [facility] Primary Care Unavailable GANTA, VERA Attending Unavailable GANTA, [facility] Primary Care Unavailable CIULLJANICE Canas Attending Unavailable GANTA, [facility] Primary Care Unavailable TRICEULLJANICE Canas Referring Unavailable GANTA, [facility] Primary Care Unavailable HARSHIL WEST Attending Unavailable CIULLJANICE Canas Referring Unavailable GANTA, [facility] Primary Care Unavailable GANTA, [facility] Primary Care Unavailable MASCI, NINI Best Referring Unavailable GANTA, [facility] Primary Care Unavailable TRICEULLJANICE Canas Attending Unavailable GANTA, [facility] Primary Care Unavailable GANTA, [facility] Primary Care Unavailable MASCI, NINI Best Referring Unavailable DONNA HAYNES Attending Unavailable GANTA, [facility] Primary Care Unavailable BOGANGIE MARK Attending Unavailable GANTA, [facility] Primary Care Unavailable COOKIE DELACRUZ Attending Unavailable GANTA, VERA Referring Unavailable GANTA, [facility] Primary Care Unavailable MASCI, NINI Best Referring Unavailable GANTA, [facility] Primary Care Unavailable MONSALVEJUAN C LESLIEIANNA Attending Unavailable MASCI, NINI Best Referring Unavailable GANTA, VERA Primary Care Unavailable MASCI, NINI Best Referring Unavailable GANTA, [facility] Primary Care Unavailable MASCI, NINI Best Referring Unavailable GANTA, [facility] Primary Care Unavailable MASCI, NINI Best Referring Unavailable GANTA, [facility] Primary Care Unavailable GANTA, [facility] Primary Care Unavailable GANTA, VERA Attending Unavailable GANTA, [facility] Primary Care Unavailable ANGIE MERCADO Attending Unavailable GANTA, [facility] Primary Care Unavailable MONSALVE, OCTAVIO Referring Unavailable GANTA, [facility] Primary Care Unavailable CIULLJANICE Canas Attending Unavailable GANTA, VERA Primary Care Unavailable MASCI, NINI A Referring Unavailable GANTA, VERA Primary Care Unavailable MASCI, NINI A Referring Unavailable GANTA, VERA Primary Care Unavailable MASCI, NINI A Referring Unavailable GANTA, VERA Primary Care Unavailable MASCI, NINI A Referring Unavailable GANTA, VERA Primary Care Unavailable GANTA, VERA Primary Care Unavailable MASCI, NINI A Referring Unavailable GANTA, VERA Primary Care Unavailable GANTA, VERA Primary Care Unavailable GANTA, VERA Primary Care Unavailable MASCI, NINI A Referring Unavailable GANTA, VERA Primary Care Unavailable MASCI, NINI A Referring Unavailable GANTA, VERA Primary Care Unavailable OLDER, TACO Attending Unavailable GANTA, VERA Primary Care Unavailable OLDER, TACO Referring Unavailable GANTA, VERA Primary Care Unavailable GANTA, VERA Primary Care Unavailable MONSALVE, OCTAVIO Attending Unavailable GANTA, VERA Primary Care Unavailable MASCI, NINI A Referring Unavailable GANTA, VERA Primary Care Unavailable MASCI, NINI A Referring Unavailable GANTA, VERA Primary Care Unavailable MONSALVE, OCTAVIO Attending Unavailable MASCI, NINI A Referring Unavailable GANTA, VERA Primary Care Unavailable MASCI, NINI A Referring Unavailable GANTA, VERA Primary Care Unavailable MASCI, NINI A Referring Unavailable GANTA, VERA Primary Care Unavailable Allergies Allergy Classification Reported Allergen(s) Allergy Type Date of Onset Reaction(s) Facility Gemfibrozil (1 source) Gemfibrozil Drug Allergy 5 Diarrhea [facility] Work Phone: (20 sources) Gemfibrozil; Translations: [GEMFIBROZIL] Drug Allergy 5 Diarrhea [facility] Work Phone: (20 sources) metFORMIN; Translations: [metformin] Drug Allergy 0 Diarrhea, Dizziness (finding) [facility] (1 source) metFORMIN Drug Allergy [facility] (1 source) metFORMIN Drug Allergy 5 [facility] Repository Medications Current Medications Medication Drug Class(es) Dates Sig (Normalized) Sig (Original) amLODIPine 10 mg oral tablet (20 sources) Dihydropyridine Calcium Channel Yue Start: 06-04-2021 End: 09-04-2024 take 1 tablet by mouth once daily Amlodipine 10 mg tablet Active 10 mg PO DAILY August 21, 2023 1:00am Complies with drug therapy Start: 05-13-2020 take 10 mg by mouth once daily Amlodipine Active 10 MG PO DAILY May 13, 2020 2:45pm Start: 04-25-2019 End: 05-13-2020 take 1 tablet by mouth once daily Amlodipine 5 MG tablet Discontinued 5 mg PO DAILY April 25, 2019 12:00am May 13, 2020 2:47pm bp Comment on above: Take 1 tablet by zach th once daily. amlodipine 1 MG/ML Oral Solution (1 source) Start: 04-28-2025 take 1 dose by mouth once daily amLODIPine 1 mg/mL oral liquid Dose : 10 mg = 10 mL, Oral, qDay Start Date: 04/28/25 Status: Ordered Medication Dispense Status: Completed Total Allowed Fills: 1 Fills Dispensed: 0 aspirin 81 mg delayed release oral tablet (20 sources) Platelet Aggregation Inhibitor, Nonsteroidal Anti-inflammatory Drug Start: 2020 End: 07-10-2024 aspirin 81 mg oral delayed release tablet Dose : 81 mg = 1 tab(s), Oral, Daily Start Date: 04/28/25 Status: Ordered Medication Dispense Status: Completed Total Allowed Fills: 1 Fills Dispensed: 0 Start: 02-20-2019 End: 03-04-2019 take 1 tablet by mouth once daily Aspirin 81 MG tablet,chewable Discontinued 81 mg PO DAILY@0800 0 February 20, 2019 12:00am March 04, 2019 7:47pm Comment on above: Take 1 tablet by zach th every morning. atorvastatin 80 mg oral tablet (20 sources) HMG-CoA Reductase Inhibitor Start: 04-28-2025 atorvastatin 80 mg oral tablet Dose : 80 mg = 1 tab(s), Oral, qDay Start Date: 04/28/25 Status: Ordered Medication Dispense Status: Completed Total Allowed Fills: 1 Fills Dispensed: 0 Start: 02-20-2019 End: 08-06-2024 take 1 tablet by mouth once daily in the morning atorvastatin (LIPITOR) 80 mg tablet Indications: Pure hypercholesterolemia Take 1 tablet by mouth every morning. 28 tablet 11 08/09/2024 Active Comment on above: Take 1 tablet by zach th every morning. Blood-Glucose Meter (20 sources) Start: 10-19-2021 Blood-Glucose Meter Indications: Uncontrolled type 2 diabetes mellitus with hypoglycemia without coma (HCC) 1 Device as directed. 1 Each 10/19/2021 Active Start: 10-19-2021 Blood-Glucose Meter Indications: Uncontrolled type 2 diabetes mellitus with hypoglycemia without coma (HCC) 1 Device as directed. 1 Each 0 10/19/2021 Active Comment on above: 1 Device as directed . carvedilol 25 mg oral tablet (1 source) alpha-Adrenergic Yue, beta-Adrenergic Yue Start: 05-03-2025 carvedilol 25 mg oral tablet Dose : 25 mg = 1 tab(s), Oral, BIDM, 0 Refill(s) Start Date: 05/03/25 Status: Ordered Medication Dispense Status: Completed Total Allowed Fills: 1 Fills Dispensed: 0 clopidogrel 75 mg oral tablet (20 sources) P2Y12 Platelet Inhibitor Start: 03-14-2023 Clopidogrel Active MG PO March 14, 2023 12:00am Start: 04-25-2019 End: 06-13-2024 clopidogrel 75 mg oral table t Dose : 75 mg = 1 tab(s), Oral, qDay Start Date: 04/28/25 Status: Ordered Medication Dispense Status: Completed Total Allowed Fills: 1 Fills Dispensed: 0 Start: 02-20-2019 End: 03-06-2019 take 1 tablet by mouth once daily Clopidogrel 75 MG tablet Discontinued 75 mg PO DAILY March 04, 2019 7:47pm March 06, 2019 9:00am blood thinner Comment on above: Take 1 tablet by zach th once daily. Started during hospitalization for stroke in February 2019 TAKE 1 TABLET BY ZACH TH DAILY Take 1 tablet by zach th once daily. COMPOUNDED PRESCRIPTION (20 sources) Start: 07-11-20 17 COMPOUNDED PRESCRIPTION Diabetic shoes: DIABETES MELLITUS- uncontrolled with neuropathy 1 Each 3 07/11/2017 Active Comment on above: Diabetic shoes: DIABETES MELLITUS- uncontrolled with neuropathy DAILY-YOUSUF, WITH FOLIC ACID, 400 mcg (20 sources) Start: 05-06-20 24 take 1 tablet by mouth once daily DAILY-YOUSUF, WITH FOLIC ACID, 400 mcg Take 1 tablet by mouth once daily. 05/06/2024 Active Diaper,Brief, Adult,Disposable (DEPEND UNDERWEAR FOR MEN SM-MD) (20 sources) Start: 01-01-20 25 Diaper,Brief, Adult,Disposable (DEPEND UNDERWEAR FOR MEN SM-MD) Indications: Diarrhea, unspecified type , Incontinence of feces, unspecified fecal incontinence type , Urinary incontinence, unspecified type , 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) 1 each as needed. 60 each 2 12/31/2024 Active Start: 12-12-2024 End: 12-31-2024 Diaper,Brief, Adult,Disposab le (DEPEND UNDERWEAR FOR MEN SM-MD) Indications: Diarrhea, unspecified type 1 each as needed. 60 each 2 12/12/2024 12/31/2024 Discontinued Start: 12-12-2024 Diaper,Brief, Adult,Disposable (DEPEND UNDERWEAR FOR MEN SM- MD) Indications: Diarrhea, unspecified type 1 each as needed. 60 each 2 12/12/2024 Active Start: 12-11-2024 End: 12-12-2024 Diaper,Brief, Adult,Disposab le (DEPEND UNDERWEAR FOR MEN SM-MD) Indications: Diarrhea, unspecified type 1 each as needed. 60 each 2 12/11/2024 12/12/2024 Discontinued Start: 12-11-2024 Diaper,Brief, Adult,Disposable (DEPEND UNDERWEAR FOR MEN SM- MD) Indications: Diarrhea, unspecified type 1 each as needed. 60 each 2 12/11/2024 Active Start: 09-24-2024 End: 12-11-2024 Diaper,Brief, Adult,Disposab le (DEPEND UNDERWEAR FOR MEN SM-MD) Indications: Diarrhea, unspecified type 1 Each as needed. 60 Each 2 09/24/2024 12/11/2024 Discontinued Start: 09-24-2024 Diaper,Brief, Adult,Disposable (DEPEND UNDERWEAR FOR MEN SM- MD) Indications: Diarrhea, unspecified type 1 Each as needed. 60 Each 2 09/24/2024 Active Start: 09-26-2022 End: 09-24-2024 Diaper,Brief, Adult,Disposab le (DEPEND UNDERWEAR FOR MEN SM-MD) Indications: Diarrhea, unspecified type 1 Each as needed. 60 Each 2 09/26/2022 09/24/2024 Discontinued Start: 09-26-2022 Diaper,Brief, Adult,Disposable (DEPEND UNDERWEAR FOR MEN SM- MD) Indications: Diarrhea, unspecified type 1 Each as needed. 60 Each 2 09/26/2022 Active Comment on above: 1 Each as needed. Diaper,Brief, Adult,Disposable (UNDERWEAR) (20 sources) Start: 12-25-2024 Diaper,Brief, Adult,Disposable (UNDERWEAR) Indications: 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) , Right thalamic infarction (HCC) , Anemia associated with stage 5 chronic renal failure (HCC) , Urinary incontinence as sequela of cerebrovascular accident (CVA) , Fecal soiling due to fecal incontinence , Wound of left buttock, sequela Use 3-4 briefs daily as needed. Family states size small. Will need for a full year. And additional incontinence supplies as needed please 200 each 5 12/25/2024 Active doxazosin 4 mg oral tablet (1 source) alpha-Adrenergic Yue Start: 05-03-2025 doxazosin 4 mg oral tablet Dose : 4 mg = 1 tab(s), Oral, qDay, # 30 tab(s), 0 Refill(s), Pharmacy: [facility]/pharmacy #[id number], 175.3, cm, 04/30/25 19:42:00 EDT, Height, kg, 04/30/25 19:42:00 EDT, Dosing Weight Start Date: 05/03/25 Status: Ordered Medication Dispense Status: Completed Quantity: 30.0 Unit: tab(s) Total Allowed Fills: 1 Fills Dispensed: 0 Folic Acid (1 source) Start: 04-28-2025 folic acid Dose : 0.4 mg =, qDay Start Date: 04/28/25 Status: Ordered Medication Dispense Status: Completed Total Allowed Fills: 1 Fills Dispensed: 0 glucose 4000 mg chewable tablet (20 sources) Start: 06-13-2019 glucose (DEX4 GLUCOSE) 4 gram chewable tablet Take 4 tablets by mouth as needed. 20 tablet 2 06/13/2019 Active Comment on above: Take 4 tablets by mo uth as needed. hydrALAZINE hydrochloride 50 mg oral tablet (20 sources) Arteriolar Vasodilator Start: 05-03-2025 hydrALAZINE 50 mg oral tablet Dose : 100 mg = 2 tab(s), Oral, q8h, # 180 tab(s), 0 Refill(s), Pharmacy: [facility]/pharmacy #[id number], 175.3, cm, 04/30/25 19:42:00 EDT, Height, kg, 04/30/25 19:42:00 EDT, Dosing Weight Start Date: 05/03/25 Status: Ordered Medication Dispense Status: Completed Quantity: 180.0 Unit: tab(s) Total Allowed Fills: 1 Fills Dispensed: 0 Start: 05-03-2025 End: 05-03-2025 take 1 tablet by mouth in the morning hydrALAZINE Start: 05/03/25 8:00:00 AM EDT, Dose = 100 mg, = 2 tab(s), Oral, 0, 05/01/25 9:43:00 EDT Start Date: 05/03/25 Stop Date: 05/03/25 Status: Completed Medication Dispense Status: Completed Total Allowed Fills: 1 Fills Dispensed: 0 Start: 11-02-2023 End: 07-17-2024 take 1 tablet by mouth every eight hours hydrALAZINE (APRESOLINE) 50 mg tablet Indications: Essential hypertension, benign Take 1 tablet by mouth every 8 hours. 270 tablet 3 07/10/2024 Active Start: 06-29-2023 take 3 tablets by [facility] once daily Hydralazine 50 mg Tablet Active 150 mg PO DAILY June 29, 2023 1:00am Complies with drug therapy Start: 06-29-2023 take 1 tablet by zach once daily Hydralazine 50 mg Tablet Active 50 mg PO DAILY June 29, 2023 1:00am Start: 06-29-2023 take 80 mg by mouth once daily Hydralazine Active 80 MG PO DAILY June 29, 2023 12:00am Start: 03-22-2022 End: 06-29-2023 take 2 tablets by mouth three times daily Hydralazine 50 mg Tablet Discontinued 100 mg PO THREE TIMES A DAY 180 March 22, 2022 12:00am June 29, 2023 3:01pm Start: 03-22-2022 End: 06-29-2023 take 100 mg by mouth three times daily Hydralazine Discontinued 100 MG PO THREE TIMES A DAY 180 March 21, 2022 11:00pm June 29, 2023 2:01pm Start: 03-11-2022 End: 03-22-2022 take 1 tablet by mouth three times daily Hydralazine 50 mg Tablet Discontinued 50 mg PO THREE TIMES A DAY March 11, 2022 12:00am March 22, 2022 8:35am BP Start: 10-22-2021 End: 10-12-2023 take 1 tablet by mouth every eight hours hydrALAZINE (APRESOLINE) 50 mg tablet Indications: Essential hypertension, benign Take 1 tablet by mouth every 8 hours. 90 tablet 3 12/08/2022 03/29/2023 Discontinued Start: 04-04-2021 take 75 mg by mouth three times daily Hydralazine Active 75 MG PO THREE TIMES A DAY 0 April 04, 2021 1:14pm Start: 09-23-2019 End: 04-04-2021 take 1 tablet by mouth three times daily Hydralazine 50 mg tablet Discontinued 50 mg PO THREE TIMES A DAY May 13, 2020 2:46pm April 04, 2021 1:14pm blood pressure Comment on above: Take 1 tablet by zach th every 8 hours. hydroCHLOROthiazide 12.5 mg oral capsule (20 sources) Thiazide Diuretic Start: take 12.5 mg by mouth once daily Hydrochlorothiazide Active 12.5 MG PO DAILY 60 April 04, 2021 1:14pm Start after 3 days. Start: 11-06-2019 End: 04-04-2021 take 2 capsules by mouth once daily Hydrochlorothiazide 12.5 mg capsule Discontinued 25 mg PO DAILY 60 3 November 06, 2019 9:35am April 04, 2021 1:14pm Start: 11-06-2019 End: 04-04-2021 take 25 mg by mouth once daily Hydrochlorothiazide Discontinued 25 MG PO DAILY 60 November 06, 2019 8:35am April 04, 2021 12:14pm Start: 09-25-2019 End: 11-06-2019 take 1 capsule by mouth once daily Hydrochlorothiazide 12.5 MG capsule Discontinued 12.5 mg PO DAILY September 25, 2019 1:00am November 06, 2019 9:35am insulin glargine 100 unt/ml injectable solution (20 sources) Insulin Analog Start: 04-28-2025 inject 1 dose by subcutaneous injection once daily Lantus 100 units/mL10 ml vial solution Dose : 20 unit(s) =, Subcutaneous, qDay, # 10 mL, 0 Refill(s) Start Date: 04/28/25 Status: Ordered Medication Dispense Status: Completed Quantity: 10.0 Unit: mL Total Allowed Fills: 1 Fills Dispensed: 0 Start: 04-07-2023 Insulin Glargi ne (Lantus Solostar U-100 Insulin) 100 unit/mL (3 mL) insulin pen Active 20 U SC DAILY April 07, 2023 12:00am DIABETES am Complies with drug therapy Start: 04-07-2023 Insulin Glargi ne (Insulin Glargine 100 Unit/Ml (3 Ml) Subcutaneous Pen) 100 unit/mL (3 mL) insulin pen Active 80 UNIT SC .[facility] April 06, 2023 11:00pm Start: 04-07-2023 Insulin Glargi ne (Insulin Glargine 100 Unit/Ml (3 Ml) Subcutaneous Pen) 100 unit/mL (3 mL) insulin pen Active 20 UNIT SC AT BEDTIME April 07, 2023 12:00am Start: 09-20-2022 End: 05-09-2024 insulin glargine (LANTUS NICHOLE OSTAR U-100 INSULIN) 100 unit/mL (3 mL) Indications: Type 2 diabetes mellitus with stage 3b chronic kidney disease, with long-term current use of insulin (HCC) Inject 20 Units subcutaneously every morning. 15 mL 5 05/09/2024 Active Start: 09-20-2022 insulin glargi ne (LANTUS SOLOSTAR U-100 INSULIN) 100 unit/mL (3 mL) Indications: Type 2 diabetes mellitus with stage 3b chronic kidney disease, with long-term current use of insulin (HCC) Inject 20 Units subcutaneously every morning. 15 mL 5 09/20/2022 Active Start: 05-17-2022 End: 09-20-2022 insulin glargine (LANTUS NICHOLE OSTAR U-100 INSULIN) 100 unit/mL (3 mL) Indications: Type 2 diabetes mellitus with stage 3b chronic kidney disease, with long-term current use of insulin (HCC) Inject 30 Units subcutaneously every morning. 15 mL 5 05/17/2022 09/20/2022 Discontinued Start: 05-17-2022 insulin glargi ne (LANTUS SOLOSTAR U-100 INSULIN) 100 unit/mL (3 mL) Indications: Type 2 diabetes mellitus with stage 3b chronic kidney disease, with long-term current use of insulin (HCC) Inject 30 Units subcutaneously every morning. 15 mL 5 05/17/2022 Active Start: 03-12-2022 End: 04-10-2022 Insulin Glargine (Lantus Nichole ostar U-100 Insulin) 100 UNIT/ML insulin pen Discontinued 30 U SQ DAILY 1 3 March 12, 2022 10:13am April 10, 2022 2:58pm diabetes Start: 09-02-2021 End: 12-17-2021 LANTUS SOLOSTAR U-100 INSULI N 100 unit/mL (3 mL) INJECT 25 UNITS SUBCUTANEOUSLY TWICE A DAY 15 mL 5 12/17/2021 Active Start: 09-23-2019 End: 03-12-2022 Insulin Glargine (Lantus Nichole ostar U-100 Insulin) 100 UNIT/ML insulin pen Discontinued 25 U SQ DAILY September 23, 2019 1:00am March 12, 2022 10:14am diabetes Start: 04-26-2019 End: 08-20-2019 inject 10 [IU] by subcutaneous injection at bedtime Insulin Glargine 100 UNITS/ML insulin pen Discontinued 10 U subcut AT BEDTIME 1 April 26, 2019 12:00am August 20, 2019 6:26pm Start: 04-26-2019 End: 08-20-2019 inject 10 [IU] by subcutaneous injection at bedtime Insulin Glargine Discontinued 10 UNITS subcut AT BEDTIME April 25, 2019 11:00pm August 20, 2019 5:26pm Comment on above: Inject 25 Units subc utaneously twice daily. INJECT 25 UNITS SUBC UTANEOUSLY TWICE A DAY Inject 30 Units subc utaneously every morning. Inject 20 Units subc utaneously every morning. Insulin Glargine (Lantus U-100 Insulin) 100 unit/mL Cartridge (5 sources) Start: 07-28-2022 Insulin Glargine (Lantus U-100 Insulin) 100 unit/mL Cartridge Active 30 UNIT SC EVERY EVENING July 28, 2022 1:00am Start: 07-28-2022 Insulin Glargi ne (Lantus U-100 Insulin) 100 unit/mL Cartridge Active 30 UNIT SC EVERY EVENING July 28, 2022 12:00am insulin lispro 100 unt/ml injectable solution (20 sources) Insulin Analog Start: 04-28-2025 inject 1 dose by subcutaneous injection three times daily HumaLOG 100 units/mL injectable solution VIAL Dose : 2 unit(s) =, Subcutaneous, TID, # 10 mL, 0 Refill(s) Start Date: 04/28/25 Status: Ordered Medication Dispense Status: Completed Quantity: 10.0 Unit: mL Total Allowed Fills: 1 Fills Dispensed: 0 Start: 05-25-2023 Insulin Lispro 100 unit/mL insulin pen Active 2 U SC THREE TIMES A DAY May 25, 2023 12:00am Complies with drug therapy Start: 09-20-2022 End: 08-27-2023 inject 2 [IU] by subcutaneous injection three times daily before mealtime insulin lispro (HUMALOG KWIKPEN INSULIN) 100 unit/mL Indications: Type II diabetes mellitus with complication (HCC) Inject 2 Units subcutaneously three times a day before meals. 5 Each 5 05/29/2023 Active Comment on above: Inject 2 Units subcu taneously three times daily before meals. Inject 2 Units subcu taneously three times a day before meals. isopropyl alcohol 0.7 ml/ml medicated pad (20 sources) Start: 07-10-2024 alcohol swabs (ALCOHOL PREP PADS) Apply 1 application to affected area TID with insulin injection 100 Each 3 07/10/2024 Active Start: 07-16-2023 End: 07-09-2024 alcohol swabs (ALCOHOL PREP PADS) Apply 1 application to affected area once daily with insulin injection 100 Each 3 04/25/2024 07/09/2024 Discontinued Start: 05-07-2019 End: 07-14-2023 alcohol swabs (ALCOHOL PREP PADS) Apply 1 application to affected area once daily with insulin injection 100 Each 3 09/21/2022 07/14/2023 Discontinued Comment on above: Apply 1 application to affected area once daily with insulin injection losartan potassium 25 mg oral tablet (20 sources) Angiotensin 2 Receptor Yue Start: 04-28-2025 take 1 tablet by mouth once daily Losartan 25 mg tablet Active 25 mg PO DAILY April 28, 2025 12:00am Complies with drug therapy Start: 11-20-2023 End: 03-24-2025 take 1 tablet by mouth once daily losartan (COZAAR) 25 mg tablet Indications: Chronic kidney disease, stage 4, severely decreased GFR (HCC) TAKE 1 TABLET BY MOUTH DAILY 28 tablet 5 03/24/2025 Active Comment on above: Take 1 tablet by zach th once daily. MEDICAL SUPPLY (20 sources) Start: 09-08-2022 MEDICAL SUPPLY Hospital bed with rails. 1 Each EACH 09/08/2022 Active Start: 09-08-2022 MEDICAL SUPPLY Hospital bed with rails. 1 Each 0 09/08/2022 Active Start: 09-08-2022 End: 09-08-2022 MEDICAL SUPPLY Indications: Recurrent falls Hospital bed with rails 1 Each 0 09/08/2022 09/08/2022 Discontinued Comment on above: Hospital bed with ra ils. Hospital bed with ra ils melatonin 3 mg disintegrating oral tablet (20 sources) Start: 04-28-2025 melatonin 3 mg oral tablet, disintegrating Dose : 3 mg = 1 tab(s), Oral, qHS, PRN as needed for insomnia, # 90 tab(s), 0 Refill(s) Start Date: 04/28/25 Status: Ordered Medication Dispense Status: Completed Quantity: 90.0 Unit: tab(s) Total Allowed Fills: 1 Fills Dispensed: 0 Start: 12-25-2023 End: 06-12-2024 Melatonin 5 mg capsule Disco ntinued 5 mg PO .qs as needed for Sleep aid December 25, 2023 12:00am June 12, 2024 2:26pm Start: 09-17-2019 take 1 tablet by zach th once daily at bedtime melatonin 3 mg tablet Take 1 tablet by mouth daily at bedtime. 30 tablet 5 09/17/2019 Active Comment on above: Take 1 tablet by zach th daily at bedtime. Multivitamin (Daily-Yousuf) Tablet (16 sources) Start: 03-11-2022 Multivitamin (Daily-Yousuf) Tablet Active 1 {tbl} PO DAILY March 11, 2022 12:00am SUPPLEMENT Complies with drug therapy Start: 03-11-2022 Multivitamin ( Daily-Yousuf) Tablet Active 1 {tbl} PO DAILY March 11, 2022 12:00am SUPPLEMENT Start: 03-11-2022 Multivitamin ( Daily-Yousuf) Tablet Active 1 {tbl} PO DAILY March 11, 2022 12:00am Start: 03-11-2022 take 1 tablet by zach th once daily Multivitamin (Daily-Yousuf) Tablet Active 1 TABLET PO DAILY March 10, 2022 11:00pm Start: 03-11-2022 take 1 tablet by zach th once daily Multivitamin (Daily-Yousuf) Tablet Active 1 TABLET PO DAILY March 11, 2022 12:00am Multivitamin preparation (2 sources) Start: 03-04-2019 take 1 tablet by mouth once daily Multivitamin Active 1 TABLET PO DAILY March 04, 2019 7:40pm polyethylene glycol 3350 260655 mg / potassium chloride 2970 mg / sodium bicarbonate 6740 mg / sodium chloride 5860 mg / sodium sulfate 00641 mg powder for oral solution (15 sources) Osmotic Laxative Start: 06-13-2024 End: 06-13-2024 peg 3350-Electrolytes (GOLYTELY) 236-22.74-6.74 -5.86 gram suspension Indications: Anemia, unspecified type , Abnormal weight loss Take 4,000 mL by mouth one time only for 1 dose. Refer to printed prep instructions from your provider. 4000 mL 06/13/2024 06/13/2024 Active Start: 08-22-2023 End: 12-25-2023 Peg 3350-Electrolytes (Golyt george) 236-22.74-6.74 -5.86 gram recon soln Discontinued 240 mL PO Q10M 4000 0 August 22, 2023 12:00pm December 25, 2023 10:08pm until fecal effluent is clear Start: 08-22-2023 Peg 3350-Elect rolytes (Golytely) 236-22.74-6.74 -5.86 gram recon soln Active 240 ML PO Q10M 4000 August 22, 2023 11:00am until fecal effluent is clear Start: 04-11-2023 End: 06-29-2023 Peg 3350-Electrolytes (Golyt george) 236-22.74-6.74 -5.86 gram recon soln Discontinued 240 mL PO Q10M 4000 0 April 11, 2023 2:46pm June 29, 2023 3:01pm until fecal effluent is clear Start: 04-11-2023 End: 06-29-2023 Peg 3350-Electrolytes (Golyt george) 236-22.74-6.74 -5.86 gram recon soln Discontinued 240 ML PO Q10M 4000 April 11, 2023 1:46pm June 29, 2023 2:01pm until fecal effluent is clear sennosides, senior care 8.6 mg oral tablet (20 sources) Start: 04-28-2025 senna (sennosi jung) 8.6 mg oral tablet Dose : 8.6 mg = 1 tab(s), Oral, TID, PRN for constipation, 0 Refill(s) Start Date: 04/28/25 Status: Ordered Medication Dispense Status: Completed Total Allowed Fills: 1 Fills Dispensed: 0 Start: 08-09-2024 End: 11-05-2024 take 1 tablet by mouth every eight hours as needed for constipation and constipation Senna 8.6 mg tab Indications: Constipation, unspecified constipation type Take 1 tablet by mouth three times a day as needed. 90 tablet 5 11/06/2024 Active Start: 12-01-2023 End: 08-06-2024 take 1 tablet by mouth every eight hours as needed for constipation and constipation Senna 8.6 mg tab Indications: Constipation, unspecified constipation type Take 1 tablet by mouth three times a day as needed. 90 tablet 2 05/17/2024 08/06/2024 Discontinued Start: 01-14-2021 End: 12-01-2023 take 1 tablet by mouth twice daily Senna 8.6 mg tab Indications: Constipation, unspecified constipation type Take 1 tablet by mouth twice daily. 120 tablet 3 09/21/2022 04/25/2023 Discontinued Comment on above: Take 1 tablet by zach th twice daily. 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 270 tablet 1 03/14/2025 09/10/2025 Active Start: 11-20-2023 End: 11-19-2024 take 1 tablet by mouth twice daily sodium bicarbonate 650 mg tablet Indications: Chronic kidney disease, stage 4, severely decreased GFR (HCC) TAKE 1 TABLET BY MOUTH TWICE A DAY 56 tablet 5 10/03/2024 Active Comment on above: Take 1 tablet by zach two times a day. Take by mouth as directed. Syringe with Needle, Safety (BD INTEGRA) 3 mL 22 x 1 1/2 syrg (20 sources) Start: 01-23-2015 Syringe with Needle, Safety (BD INTEGRA) 3 mL 22 x 1 1/2 syrg Uses twice a month for testosterone injections 50 Syringe 3 01/23/2015 Active Comment on above: Uses twice a month f or testosterone injections tamsulosin hydrochloride 0.4 mg oral capsule (20 sources) alpha-Adrenergic Yue Start: 04-28-2025 tamsulosin 0.4 mg oral capsule Dose : 0.4 mg = 1 cap(s), Oral, qHS Start Date: 04/28/25 Status: Ordered Medication Dispense Status: Completed Total Allowed Fills: 1 Fills Dispensed: 0 Start: 03-11-2022 End: 03-14-2023 take 1 capsule by mouth at bedtime Tamsulosin (Flomax) 0.4 mg capsule Discontinued 0.4 mg PO AT BEDTIME March 11, 2022 2:38pm March 14, 2023 11:06am PROSTATE Start: 07-06-2021 End: 09-03-2024 take 1 capsule by mouth once daily Tamsulosin (Flomax) 0.4 mg capsule Discontinued 0.4 mg PO DAILY 14 0 July 06, 2021 1:00am March 11, 2022 2:39pm Comment on above: Take 1 capsule by [facility] daily at bedtime. TAKE 1 CAPSULE BY [facility] AT BEDTIME traZODone hydrochloride 50 mg oral tablet (20 sources) Serotonin Reuptake Inhibitor Start: 06-01-2022 End: 12-16-2024 traZODone 50 mg oral tablet Dose : 50 mg = 1 tab(s), Oral, qHS Start Date: 04/28/25 Status: Ordered Medication Dispense Status: Completed Total Allowed Fills: 1 Fills Dispensed: 0 Comment on above: Take 1 tablet by zach daily at bedtime. Take 1-2 tablets by mouth daily at bedtime. Completed/Discontinued Medications Medication Drug Class(es) Dates Sig (Normalized) Sig (Original) acetaminophen 325 mg / HYDROcodone bitartrate 5 mg oral tablet (20 sources) Opioid Agonist Start: 08-15-2024 End: 04-28-2025 Hydrocodone-Acetaminop hen 5-325 mg tablet Discontinued 1 {tbl} PO EVERY 6 HOURS NEEDED as needed for Pain 10 3 0 August 15, 2024 April 28, 2025 2:13pm Contusion of left knee, initial encounter Gastrointestinal hemorrhage due to nonsteroidal antiinflammatory drug Injury due to fall Contusion of left knee, initial encounter Gastrointestinal hemorrhage, unspecified Unspecified fall, initial encounter Start: 03-06-2023 End: 03-20-2023 take 1 tablet by mouth every six hours as needed for pain HYDROcodone-acetaminophen (NORCO) 5-325 mg per tablet Indications: Rib pain on right side Take 1 tablet by mouth every 6 hours as needed for pain for up to 7 days. 28 tablet 0 03/13/2023 03/20/2023 Active Start: 03-04-2023 End: 03-14-2023 take 1 tablet by mouth every four hours as needed for pain Hydrocodone-Acetaminophen 5-325 mg table t Discontinued 0.5 {tbl} PO EVERY 4 HOURS NEEDED as needed for Pain 8 3 0 March 04, 2023 March 14, 2023 11:05am Rib pain on right side Pleurodynia May take 1 full tab if pain is severe Start: 03-04-2023 End: 03-14-2023 take 1 tablet by mouth every four hours as needed Hydrocodone-Acetaminophen Discontinued 0 .5 TABLET PO EVERY 4 HOURS NEEDED 8 3 March 04, 2023 March 14, 2023 10:05am May take 1 full tab if pain is severe Start: 04-10-2022 take 1 tablet by zach th every six hours as needed Hydrocodone-Acetaminophen Active 1 TABLE T PO EVERY 6 HOURS NEEDED 12 3 April 10, 2022 Start: 01-05-2019 End: 01-08-2019 Hydrocodone-Acetaminophen 1 TABLET tablet Discontinued 1 {tbl} PO EVERY 6 HOURS NEEDED as needed for Pain 10 3 0 January 05, 2019 12:00am January 07, 2019 12:00am January 08, 2019 12:07am Closed head injury Contusion of chest wall Unspecified injury of head, initial encounter Contusion of unspecified front wall of thorax, initial encounter Start: 01-05-2019 End: 01-08-2019 take 1 tablet by mouth every six hours as needed Hydrocodone-Acetaminophen Discontinued 1 TABLET PO EVERY 6 HOURS NEEDED 10 3 January 04, 2019 11:00pm January 07, 2019 11:07pm Comment on above: Take 1 tablet by zach th every 6 hours as needed for pain for up to 7 days. Take 1 tablet by zach th every 6 hours as needed for pain. ascorbic acid 500 mg oral tablet (13 sources) Vitamin C Start: 03-22-2022 End: 04-28-2025 take 1 tablet by mouth twice daily Ascorbic Acid (Vitamin C) (Vitamin C) 500 mg tablet Discontinued 500 mg PO TWICE A DAY 60 30 0 March 22, 2022 12:00am April 28, 2025 2:15pm Blood Pressure Monitor (20 sources) Start: 01-25-2023 End: 09-30-2024 Blood Pressure Monitor Indications: Essential hypertension, benign 1 Each as directed. 1 Kit 01/25/2023 09/30/2024 Discontinued (Discontinued by Patient) Start: 01-25-2023 Blood Pressure Monitor Indications: Essential hypertension, benign 1 Each as directed. 1 Kit 01/25/2023 Active Start: 01-25-2023 Blood Pressure Monitor Indications: Essential hypertension, benign 1 Each as directed. 1 Kit 0 01/25/2023 Active Start: 05-29-2020 End: 01-25-2023 Blood Pressure Monitor Indic ations: Essential hypertension, benign 1 Each as directed. 1 Kit 0 05/29/2020 01/25/2023 Discontinued Start: 05-29-2020 Blood Pressure Monitor Indications: Essential hypertension, benign 1 Each as directed. 1 Kit 0 05/29/2020 Active Comment on above: 1 Each as directed. cephalexin 500 mg oral capsule (6 sources) Cephalosporin Antibacterial Start: End: take 1 capsule by mouth every six hours Cephalexin 500 mg capsule Discontinued 500 mg PO EVERY 6 HOURS 40 0 December 23, 2024 12:00am April 28, 2025 2:13pm Start: 09-20-2022 End: 09-25-2022 take 1 capsule by mouth twice daily cephALEXin (KEFLEX) 500 mg capsule Take 1 capsule by mouth twice daily for 5 days. 10 capsule 0 09/20/2022 09/25/2022 Active Start: 11-20-2021 take 500 mg by mouth every six hours Cephalexin Active 500 MG PO EVERY 6 HOURS 20 Mattie 16th, 2022 11:34pm Comment on above: Take 1 capsule by [facility] twice daily for 5 days. cholecalciferol 1.25 mg oral capsule (20 sources) Vitamin D Start: 11-02-2023 End: 05-20-2024 cholecalciferol, Vitamin D3, (VITAMIN D3) 1,250 mcg (50,000 unit) cap capsule Indications: Vitamin D deficiency Take 1 capsule twice per week for 12 weeks. 24 capsule 04/18/2024 05/20/2024 Discontinued (Course of therapy completed) Start: 08-11-2023 cholecalcifero l, Vitamin D3, (VITAMIN D3) 1,250 mcg (50,000 unit) cap capsule Indications: Vitamin D deficiency Take 1 capsule twice per week for 12 weeks. 24 capsule 0 08/11/2023 Active Start: 03-13-2023 End: 05-23-2023 cholecalciferol, Vitamin D3, (VITAMIN D3) 1,250 mcg (50,000 unit) cap capsule Indications: Vitamin D deficiency Take 1 capsule twice per week for 12 weeks. 24 capsule 0 05/23/2023 Active Comment on above: Take 1 capsule twice per week for 12 weeks. 0.3 ml darbepoetin robert 0.2 mg/ml prefilled syringe (6 sources) Erythropoiesis-s timulating Agent Start: End: inject 1 dose by subcutaneous injection once 60 mcg, SUBCUTANEOUS, ONCE, 1 dose, On Mon04/08/25 at 1430, Protect from light REFRIGERATE Start: 04-01-2025 End: 04-01-2025 inject 1 dose by subcutaneous injection once 60 mcg, SUBCUTANEOUS, ONCE, 1 dose, On Mon04/01/25 at 1330, Protect from light REFRIGERATE Start: 03-25-2025 End: 03-25-2025 inject 1 dose by subcutaneous injection once 60 mcg, SUBCUTANEOUS, ONCE, 1 dose, On Mon03/25/25 at 1330, Protect from light REFRIGERATE Start: 02-18-2025 End: 02-18-2025 inject 1 dose by subcutaneous injection once 60 mcg, SUBCUTANEOUS, ONCE, 1 dose, On Mon02/18/25 at 1400, Protect from light REFRIGERATE Start: 01-07-2025 End: 01-07-2025 inject 1 dose by subcutaneous injection once 60 mcg, SUBCUTANEOUS, ONCE, 1 dose, On Mon01/07/25 at 1500, Protect from light REFRIGERATE Start: 12-31-2024 End: 12-31-2024 inject 1 dose by subcutaneous injection once 60 mcg, SUBCUTANEOUS, ONCE, 1 dose, On Mon12/31/24 at 1400, Protect from light REFRIGERATE diclofenac sodium 0.03 mg/mg topical gel (20 sources) Nonsteroidal Anti-inflammatory Drug Start: 04-01-2024 End: 09-30-2024 Diclofenac Sodium 3 % gel Indications: Fall, subsequent encounter , Arm bruise, left, sequela Apply 0.5 g to affected area once daily. 100 g 04/01/2024 09/30/2024 Discontinued (Discontinued by Patient) Start: 03-13-2023 End: 04-01-2024 apply 2 g topically four times daily diclofenac (VOLTAREN) 1 % topical gel Indications: Rib pain on right side Apply 2 g to affected area four times daily. 100 g 1 03/13/2023 04/01/2024 Discontinued Comment on above: Apply 2 g to affecte d area four times daily. ferrous sulfate 325 mg oral tablet (13 sources) Start: 03-22-20 End: 12-25-19 take 1 tablet by mouth twice daily Ferrous Sulfate 325 mg (65 mg iron) tablet Discontinued 325 mg PO TWICE A DAY 60 30 0 March 22, 2022 12:00am December 25, 2023 10:06pm glimepiride 2 mg oral tablet (20 sources) Sulfonylurea Start: 01-26-20 End: 02-28-20 23 take 1 tablet by mouth once daily at dinner glimepiride (AMARYL) 2 mg tablet Indications: Diabetic polyneuropathy associated with type 2 diabetes mellitus (HCC) Take 1 tablet by mouth daily with dinner. 30 tablet 1 01/25/2023 02/27/2023 Discontinued Start: 03-11-2022 End: 03-22-2022 take 1 tablet by mouth once daily Glimepiride 4 mg Tablet Discontinued 4 mg PO DAILY March 11, 2022 12:00am March 22, 2022 8:35am DM Start: 08-02-2021 End: 09-20-2022 take 2 tablets by mouth once daily at dinner glimepiride (AMARYL) 2 mg tablet Indications: Diabetic polyneuropathy associated with type 2 diabetes mellitus (HCC) Take 2 tablets by mouth daily with dinner. 60 tablet 5 12/02/2021 09/20/2022 Discontinued Comment on above: Take 1 tablet by zach th daily with dinner. Take 2 tablets by mo uth daily with dinner. ibuprofen 600 mg oral tablet (20 sources) Nonsteroidal Anti-inflammatory Drug Start: 9 End: 9 take 1 tablet by mouth four times daily as needed for pain Ibuprofen 600 MG tablet Discontinued 600 mg PO 4 TIMES DAILY as needed for Pain 20 0 September 13, 2018 1:00am February 18, 2019 11:04pm Start: 05-23-2015 End: 06-23-2017 take 1 tablet by mouth three times daily Ibuprofen (Motrin) 800 MG tablet Discontinued 800 mg PO THREE TIMES A DAY 15 0 May 23, 2015 12:00am June 23, 2017 11:57pm 10 ml iron sucrose 20 mg/ml injection (9 sources) Parenteral Iron Replacement Start: 12-20-2024 End: 12-20-2024 200 mg, INTRAVENOUS, ONCE, 1 dose, On Mon12/20/24 at 1430, Please conduct a 30 minute post dose observation. Start: 2024 End: 2024 200 mg, INTRAVENOUS, ONCE, 1 dose, On Mon12/18/24 at 1100, Please conduct a 30 minute post dose observation. Start: 12-16-2024 End: 12-16-2024 200 mg, INTRAVENOUS, ONCE, 1 dose, On Mon12/16/24 at 1430, Please conduct a 30 minute post dose observation. Start: 12-13-2024 End: 12-13-2024 200 mg, INTRAVENOUS, ONCE, 1 dose, On Mon12/13/24 at 1530, Please conduct a 30 minute post dose observation. Start: 07-10-2024 End: 07-10-2024 200 mg, INTRAVENOUS, ONCE, 1 dose, On Mon07/10/24 at 1400, Please conduct a 30 minute post dose observation. Start: 07-08-2024 End: 07-08-2024 200 mg, INTRAVENOUS, ONCE, 1 dose, On Mon07/08/24 at 1430, Please conduct a 30 minute post dose observation. Start: 07-03-2024 End: 07-03-2024 200 mg, INTRAVENOUS, ONCE, 1 dose, On Mon07/03/24 at 1000, Please conduct a 30 minute post dose observation. Start: 07-01-2024 End: 07-01-2024 200 mg, INTRAVENOUS, ONCE, 1 dose, On Mon07/01/24 at 0900, Please conduct a 30 minute post dose observation. Start: 06-28-2024 End: 06-28-2024 200 mg, INTRAVENOUS, ONCE, 1 dose, On Mon06/28/24 at 1330, Please conduct a 30 minute post dose observation. lactulose 667 mg/ml oral solution (8 sources) Osmotic Laxative Start: 09-12-2023 End: 06-12-2024 take 10 g by mouth twice daily Lactulose 10 gram/15 mL solution Discontinued 10 g PO TWICE A DAY 900 30 September 12, 2023 1:00am June 12, 2024 2:26pm Start: 09-12-2023 End: 06-12-2024 take 10 g by mouth twice daily Lactulose 10 gram/15 mL solution Discontinued 10 g PO TWICE A DAY 900 30 September 12, 2023 1:00am June 12, 2024 2:26pm Start: 09-12-2023 End: 06-12-2024 take 10 g by mouth twice daily Lactulose 10 gram/15 mL solution Discontinued 10 g PO TWICE A DAY 900 30 September 12, 2023 1:00am June 12, 2024 2:26pm Start: 06-15-2022 take 20 g by mouth twice daily Lactulose Active 20 GM PO TWICE A DAY 1200 June 15, 2022 1:00am lidocaine 0.04 mg/mg medicated patch (20 sources) Antiarrhythmic, Amide Local Anesthetic End: 01-25-2023 lidocaine (SALONPAS) 4 % patch Apply as directed once daily. 0 01/25/2023 Discontinued Comment on above: Apply as directed on ce daily. lisinopril 20 mg oral tablet (18 sources) Angiotensin Converting Enzyme Inhibitor Start: 05-11-2017 End: 02-20-2019 take 2 tablets by mouth once daily Lisinopril 20 MG tablet Discontinued 40 mg PO DAILY May 11, 2017 12:00am February 20, 2019 9:52am Blood Pressure Start: 05-11-2017 End: 02-20-2019 take 40 mg by mouth once daily Lisinopril Discontinued 40 MG PO DAILY May 10, 2017 11:00pm February 20, 2019 8:52am magnesium hydroxide 80 mg/ml oral suspension (12 sources) Start: 04-10-2022 End: 03-14-2023 take 1 mL by mouth once daily as needed for constipation Magnesium Hydroxide (Milk Of Magnesia) 400 mg/5 mL Suspension Discontinued 30 mL PO DAILY as needed for Constipation April 10, 2022 12:00am March 14, 2023 11:06am Start: 04-10-2022 End: 03-14-2023 take 1 mL by mouth once daily as needed for constipation Magnesium Hydroxide (Milk Of Magnesia) 400 mg/5 mL Suspension Discontinued 30 mL PO DAILY as needed for Constipation April 10, 2022 12:00am March 14, 2023 11:06am Start: 04-10-2022 End: 03-14-2023 take 1 mL by mouth once daily Magnesium Hydroxide (Mil k Of Magnesia) 400 mg/5 mL Suspension Discontinued 30 ML PO DAILY April 09, 2022 11:00pm March 14, 2023 10:06am Start: 04-10-2022 End: 03-14-2023 take 1 mL by mouth once daily Magnesium Hydroxide (Mil k Of Magnesia) 400 mg/5 mL Suspension Discontinued 30 ML PO DAILY April 10, 2022 12:00am March 14, 2023 11:06am Start: 04-10-2022 take 1 mL by mouth once daily Magnesium Hydroxide (Milk Of Magnesia) 400 mg/5 mL Suspension Active 30 ML PO DAILY April 10, 2022 12:00am Start: 04-10-2022 take 1 mL by mouth once daily Magnesium Hydroxide (Milk Of Magnesia) 400 mg/5 mL Suspension Active 30 ML PO DAILY April 09, 2022 11:00pm 24 hr metFORMIN hydrochloride 500 mg extended release oral tablet (20 sources) Biguanide Start: 05-13-2020 End: 04-04-2021 Metformin 500 mg tablet extended release 24 hr Discontinued 1000 mg PO DAILY May 13, 2020 2:45pm April 04, 2021 2:05pm Diabetes On Hold: Hold for 1 week Start: 05-13-2020 End: 04-04-2021 take 1000 mg by mouth once daily Metformin Discontinued 1000 MG PO DAILY May 13, 2020 1:45pm April 04, 2021 1:05pm On Hold: Hold for 1 week Start: 01-17-2017 End: 06-25-2017 take 1 tablet by mouth once daily Metformin 500 MG tablet Discontinued 500 mg PO DAILY January 17, 2017 12:00am June 25, 2017 11:41am Start: 10-06-2015 End: 05-13-2020 take 2 tablets by mouth twice daily Metformin 500 MG tablet Discontinued 1000 mg PO TWICE A DAY October 06, 2015 1:00am May 13, 2020 2:47pm Diabetes Start: 10-06-2015 End: 05-13-2020 take 1000 mg by mouth twice daily Metformin Discontinued 1000 MG PO TWICE A DAY October 06, 2015 12:00am May 13, 2020 1:47pm metoclopramide 5 mg oral tablet (12 sources) Dopamine-2 Receptor Antagonist Start: 09-14-2022 End: 03-14-2023 take 1 tablet by mouth every six hours as needed for nausea and vomiting Metoclopramide Hcl (Reglan) 5 mg tablet Discontinued 5 mg PO EVERY 6 HOURS as needed for nausea and vomiting September 14, 2022 5:52pm March 14, 2023 11:06am 24 hr metoprolol succinate 100 mg extended release oral tablet (20 sources) beta-Adrenergic Yue Start: 04-29-2025 End: 04-29-2025 take 1 tablet by mouth in the morning metoprolol succinate 100 mg oral TABLET extended release Start: 04/29/25 8:00:00 AM EDT, Dose = 100 mg, = 1 tab(s), Oral, give with food/meal, 0, 04/28/25 22:53:00 EDT Start Date: 04/29/25 Stop Date: 04/29/25 Status: Completed Medication Dispense Status: Completed Total Allowed Fills: 1 Fills Dispensed: 0 Start: 04-28-2025 take 1 dose by mouth once antonieta y Toprol-XL Dose : 100 mg =, Oral, qDay Start Date: 04/28/25 Status: Ordered Medication Dispense Status: Completed Total Allowed Fills: 1 Fills Dispensed: 0 Start: 08-09-2024 take 1 tablet by zach once daily in the morning metoprolol succinate ER (TOPROL XL) 100 mg Take 1 tablet by mouth every morning. 30 tablet 11 08/09/2024 Active Start: 08-21-2023 take 1 tablet by zach th every twenty-four hours at bedtime Metoprolol Succinate 100 mg tablet extended release 24 hr Active 100 mg PO AT BEDTIME August 21, 2023 1:00am Complies with drug therapy Start: 04-25-2019 End: 08-06-2024 take 1 tablet by mouth once daily Metoprolol Succinate 100 MG tablet extended release 24 hr Discontinued 100 mg PO DAILY April 25, 2019 12:00am June 29, 2023 3:01pm heart rate Start: 06-25-2017 End: 02-18-2019 take 1 tablet by mouth twice daily Metoprolol Tartrate 50 MG tablet Discontinued 50 mg PO TWICE A DAY 60 3 June 25, 2017 1:00am February 18, 2019 11:04pm Comment on above: Take 1 tablet by zach th every morning. mineral oil 1000 mg/ml enema (12 sources) Start: 04-10-2022 End: 03-14-2023 Mineral Oil (Enema) Enema Discontinued 118 mL RC DAILY as needed for Constipation April 10, 2022 12:00am March 14, 2023 11:06am discard any unused portion Start: 04-10-2022 End: 03-14-2023 Mineral Oil (Enema) Enema Di scontinued 118 ML RC DAILY April 09, 2022 11:00pm March 14, 2023 10:06am discard any unused portion Miscellaneous Medical Supply (BLOOD PRESSURE CUFF) (20 sources) Start: 02-27-2023 End: 09-30-2024 Miscellaneous Medical Supply (BLOOD PRESSURE CUFF) Indications: Type 2 diabetes mellitus with stage 4 chronic kidney disease, with long-term current use of insulin (HCC) , Primary hypertension 1 Each once daily. 1 Each 02/27/2023 09/30/2024 Discontinued (Discontinued by Patient) Start: 02-27-2023 Miscellaneous Medical Supply (BLOOD PRESSURE CUFF) Indications: Type 2 diabetes mellitus with stage 4 chronic kidney disease, with long-term current use of insulin (HCC) , Primary hypertension 1 Each once daily. 1 Each 02/27/2023 Active Start: 02-27-2023 Miscellaneous Medical Supply (BLOOD PRESSURE CUFF) Indications: Type 2 diabetes mellitus with stage 4 chronic kidney disease, with long-term current use of insulin (HCC) , Primary hypertension 1 Each once daily. 1 Each 0 02/27/2023 Active Comment on above: 1 Each once daily. multivitamin (DAILY-YOUSUF) tablet (20 sources) Start: 10-05-2023 End: 05-20-2024 take 1 tablet by mouth once daily multivitamin (DAILY-YOUSUF) tablet Take 1 tablet by mouth once daily. 30 tablet 11 10/05/2023 05/20/2024 Discontinued (Other) Start: 10-05-2023 take 1 tablet by zach th once daily multivitamin (DAILY-YOUSUF) tablet Take 1 tablet by mouth once daily. 30 tablet 11 10/05/2023 Active Start: 11-11-2022 End: 10-05-2023 take 1 tablet by mouth once daily multivitamin (DAILY-YOUSUF) tablet Take 1 tablet by mouth once daily. 30 tablet 11 11/11/2022 10/05/2023 Discontinued Start: 11-11-2022 take 1 tablet by zach th once daily multivitamin (DAILY-YOUSUF) tablet Take 1 tablet by mouth once daily. 30 tablet 11 11/11/2022 Active Start: 11-19-2021 End: 11-10-2022 take 1 tablet by mouth once daily multivitamin (DAILY-YOUSUF) tablet Take 1 tablet by mouth once daily. 28 tablet 11 11/19/2021 11/10/2022 Discontinued Start: 11-19-2021 take 1 tablet by zach th once daily multivitamin (DAILY-YOUSUF) tablet Take 1 tablet by mouth once daily. 28 tablet 11/19/2021 Active Start: 2020 End: 11-19-2021 take 1 tablet by mouth once daily multivitamin (DAILY-YOUSUF) tablet Take 1 tablet by mouth once daily. 28 tablet 2020 11/19/2021 Discontinued Start: 2020 take 1 tablet by zach th once daily multivitamin (DAILY-YOUSUF) tablet Take 1 tablet by mouth once daily. 28 tablet 11 2020 Active Comment on above: Take 1 tablet by zach th once daily. perflutren lipid microspheres 1.3 mL in NaCl (PF) 0.9% 10 mL injection (DEFINITY) (20 sources) Start: End: perflutren lipid microspheres 1.3 mL in NaCl (PF) 0.9% 10 mL injection (DEFINITY) polyethylene glycol 3350 32777 mg powder for oral solution (20 sources) Osmotic Laxative Start: End: take 1 scoop(s) by mouth once daily as needed for constipation polyethylene glycol 3350 17 gram/dose powder Indications: Chronic constipation Take 17 g by mouth once daily. Drink a mix of 1 scoop in 8oz of water/beverage once daily as needed for constipation. 850 g 2 07/10/2023 05/20/2024 Discontinued (Discontinued by Patient) Comment on above: Take 17 g by mouth o nce daily. Drink a mix of 1 scoop in 8oz of water/beverage once daily as needed for constipation. 125 ml sodium chloride 9 mg/ml prefilled syringe (20 sources) Start: End: sodium chloride 0.9 % (flush) 10 mL (BD POSIFLUSH) triamcinolone acetonide 0.25 mg/ml topical lotion (20 sources) Corticosteroid Start: End: triamcinolone (KENALOG) 0.025 % lotn Apply 1 application to affected area twice daily. To bilateral legs 60 mL 1 05/24/2019 03/13/2023 Discontinued Comment on above: Apply 1 application to affected area twice daily. To bilateral legs vitamin b6 50 mg oral tablet (12 sources) Start: End: take 1 tablet by mouth twice daily Pyridoxine (Vitamin B6) 50 mg Tablet Discontinued 50 mg PO TWICE A DAY April 10, 2022 12:00am March 14, 2023 11:06am Problems Active Problems Problem Classification Problem Date Documented Date Episodic/Chronic Abdominal hernia (20 sources) Hiatal hernia; Translations: [Diaphragmatic hernia without obstruction or gangrene] Onset: 5 01-27-2025 Episodic Acute and unspecified renal failure (20 sources) Acute injury of kidney; Translations: [Acute kidney failure, unspecified] Onset: 1 09-17-2021 Episodic Acute cerebrovascular disease (20 sources) Thalamic infarction; Translations: [Cerebral infarction, unspecified] Onset: 9 05-07-2019 Chronic Comment on above: lacunar infarct in t he right thalamus measures 5mm Aortic and peripheral arterial embolism or thrombosis (20 sources) Vascular disorder; Translations: [Embolism and thrombosis of unspecified artery] Onset: 8 06-22-2010 Chronic Biliary tract disease (20 sources) Polyp of gallbladder; Translations: [Cholesterolosis of gallbladder] 09-14-2022 Episodic Cardiac dysrhythmias (20 sources) Paroxysmal supraventricular tachycardia; Translations: [Supraventricular tachycardia] Onset: 0 08-02-2021 Chronic Cardiac dysrhythmias (18 sources) Tachyarrhythmia ; Translations: [Tachycardia, unspecified] 04-04-2019 Episodic Chronic kidney disease (20 sources) Chronic kidney disease stage 3B ; Translations: [Stage 3b chronic kidney disease] Onset: 3 Chronic Chronic ulcer of skin (2 sources) Pressure ulcer of buttock stage 1; Translations: [Pressure ulcer of unspecified buttock, stage 1] Onset: 5 12-31-2024 Chronic Conduction disorders (20 sources) Sinus node dysfunction; Translations: [Other specified heart block] Onset: 9 Chronic Coronary atherosclerosis and other heart disease (20 sources) Coronary arteriosclerosis; Translations: [Atherosclerotic heart disease of [place] coronary artery without angina pectoris] Onset: 5 01-27-2025 Chronic Deficiency and other anemia (1 source) Anemia of chronic renal failure; Translations: [Anemia in chronic kidney disease] Chronic Deficiency and other anemia (7 sources) Anemia in chronic kidney disease; Translations: [Anemia in chronic kidney disease] Onset: 4 Chronic Deficiency and other anemia (20 sources) Iron deficiency anemia; Translations: [Iron deficiency anemia, unspecified] Onset: 1 08-02-2021 Episodic Deficiency and other anemia (20 sources) Anemia; Translations: [Anemia, unspecified] 06-15-2022 Episodic Deficiency and other anemia (18 sources) Microcytic anemia; Translations: [Iron deficiency anemia, unspecified] 11-23-2021 Episodic Deficiency and other anemia (1 source) Iron deficiency anemia, unspecified; Translations: [Iron deficiency anemia, unspecified] Onset: 5 Episodic Developmental disorders (20 sources) Developmental academic disorder; Translations: [Other developmental disorders of scholastic skills] 03-29-2011 Chronic Diabetes mellitus with complications (20 sources) Type II diabetes mellitus uncontrolled; Translations: [Diabetes mellitus type 2, uncontrolled] Onset: 0 08-02-2021 Chronic Diabetes mellitus without complication (20 sources) Diabetes mellitus; Translations: [Type 2 diabetes mellitus without complications] Onset: 5 09-14-2022 Chronic Diabetes mellitus without complication (20 sources) Hyperglycemia; Translations: [Hyperglycemia, unspecified] 09-14-2022 Episodic Diabetes mellitus without complication (1 source) Diabetes mellitus without complication; Translations: [Type 2 diabetes mellitus with stage 3b chronic kidney disease, with long-term current use of insulin (HCC)] Onset: 1 Disorders of lipid metabolism (20 sources) Pure hypercholesterolemia; Translations: [Pure hypercholesterolemia, unspecified] Onset: 0 Resolved: 0 10-22-2009 Chronic E Codes: Fall (20 sources) Fall; Translations: [Unspecified fall, initial encounter] 04-18-2022 Episodic Comment on above: While descending fro m the exam table, patient misstepped off the exam table and lost his balance falling head long into a cabinet near the exam table. There is no loss of consciousness. Patient did have a small laceration over his left denominational. Reported no neurologic signs including loss of vision or weakness. He did confirm a slight headache from the impact. He is adamant that is not prescribed any blood thinners. Brief neurologic survey demonstrated roughly equal bilateral motor activity in the upper and lower extremities. Extraocular eye motions were intact. Patient's sister is concerned about patient's glucose and we had to inform her that we do not have the ability to do Accu-Cheks in our office. We did recheck patient's vitals which were marginally higher for his systolic pressure and demonstrate overall hypertension, but were in keeping with previous vital signs from patient's historical record. The abundance of caution, recommended evaluation in the emergency department and emergency medicine was notified via telephone of patient's impending arrival. Esophageal disorders (20 sources) Lower esophageal ring; Translations: [Esophageal obstruction] Onset: 5 01-27-2025 Chronic Essential hypertension (20 sources) Benign essential hypertension; Translations: [Essential (primary) hypertension] Onset: 1 08-02-2021 Chronic Comment on above: CONTROLLED WITH MED Fluid and electrolyte disorders (20 sources) Mild dehydration; Translations: [Dehydration] Onset: 5 01-02-2020 Episodic Genitourinary symptoms and ill-defined conditions (2 sources) Urinary incontinence; Translations: [Unspecified urinary incontinence] Onset: 5 12-31-2024 Chronic Genitourinary symptoms and ill-defined conditions (6 sources) Persistent proteinuria; Translations: [Persistent proteinuria, unspecified] Onset: 5 02-23-2024 Episodic Headache; including migraine (1 source) Headache; Translations: [Headache] 05-06-2025 Episodic Headache; including migraine (1 source) Headache; including migraine; Translations: [Headache, unspecified] Onset: Hyperplasia of prostate (5 sources) Benign prostatic hyperplasia; Translations: [Benign prostatic hyperplasia without lower urinary tract symptoms] Onset: 5 05-16-2024 Chronic Hypertension with complications and secondary hypertension (20 sources) 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; Translations: [Hypertensive heart and chronic kidney disease without heart failure, with stage 5 chronic kidney disease, or end stage renal disease] Onset: 5 01-10-2025 Chronic Immunizations and screening for infectious disease (9 sources) Patient encounter status; Translations: [Encounter for immunization] Onset: 5 07-10-2023 Episodic Late effects of cerebrovascular disease (20 sources) Paralytic syndrome on one side of the body; Translations: [Hemiplegia and hemiparesis following cerebral infarction affecting left non-dominant side] Onset: 3 01-25-2023 Chronic Malaise and fatigue (20 sources) Physical deconditioning; Translations: [Other malaise] Onset: 5 01-30-2015 Episodic Mycoses (18 sources) Onychomycosis of toenails; Translations: [Tinea unguium] 11-25-2017 Episodic Nausea and vomiting (20 sources) Nausea and vomiting; Translations: [Nausea with vomiting, unspecified] 09-14-2022 Episodic Nonspecific chest pain (20 sources) Chest wall pain; Translations: [Other chest pain] 09-24-2019 Episodic Nutritional deficiencies (5 sources) Vitamin D deficiency; Translations: [Vitamin D deficiency, unspecified] 03-13-2023 Chronic Occlusion or stenosis of precerebral arteries (20 sources) Basilar artery stenosis; Translations: [Occlusion and stenosis of basilar artery] Onset: 0 08-24-2019 Chronic Osteoarthritis (18 sources) Arthritis of acromioclavicular joint; Translations: [Primary osteoarthritis, left shoulder] 07-14-2020 Chronic Other aftercare (18 sources) Long-term current use of anticoagulant; 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] 08-27-2019 Episodic Other aftercare (1 source) Long-term current use of aspirin; Translations: [intermediate (current) use of aspirin] 01-10-2025 Episodic Other aftercare (3 sources) intermediate (current) use of insulin; Translations: [Type 2 diabetes mellitus 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, with long-term current use of insulin (HCC)] Onset: 1 Episodic Other and unspecified benign neoplasm (4 sources) Adenomatous polyp of colon ; Translations: [Benign neoplasm of colon, unspecified] 08-11-2023 Episodic Other and unspecified benign neoplasm (1 source) Benign neoplasm of colon, unspecified; Translations: [Benign neoplasm of colon] 08-11-2023 Episodic Other and unspecified benign neoplasm (1 source) Polyp of colon; Translations: [Polyp of colon] 06-13-2024 Episodic Other bone disease and musculoskeletal deformities (20 sources) Tietze's disease; 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 junction syndrome [Tietze]] 06-22-2010 Episodic Other circulatory disease (1 source) History of cerebrovascular disease; Translations: [Personal history of other diseases of the circulatory system] Onset: 5 Episodic Other circulatory disease (1 source) History of transient ischemic attack; Translations: [Personal history of transient ischemic attack (TIA), and cerebral infarction without residual deficits] Episodic Other circulatory disease (1 source) Personal history of transient ischemic attack (TIA), and cerebral infarction without residual deficits; Translations: [Personal history of transient ischemic attack (TIA), and cerebral infarction without residual deficits] Onset: 5 Episodic Other circulatory disease (1 source) Personal history of other diseases of the circulatory system; Translations: [Personal history of other diseases of the circulatory system] Onset: 5 Episodic Other connective tissue disease (15 sources) Muscle weakness; Translations: [Muscle weakness (generalized)] 03-19-2022 Episodic Other connective tissue disease (3 sources) Muscle weakness (generalized); Translations: [Muscle weakness (generalized)] Episodic Other connective tissue disease (1 source) Recurrent falls ; Translations: [Repeated falls] Episodic Other connective tissue disease (2 sources) Pain in calf; Translations: [Pain in right lower leg] 07-19-2024 Episodic Other connective tissue disease (1 source) Pain of right calf; Translations: [Pain in right lower leg] 07-19-2024 Episodic Other diseases of kidney and ureters (5 sources) Hyperparathyroidism due to renal insufficiency; Translations: [Secondary hyperparathyroidism of renal origin] 11-20-2023 Chronic Other diseases of kidney and ureters (1 source) Secondary hyperparathyroidism of renal origin; Translations: [Secondary renal hyperparathyroidism (HCC)] Onset: 5 Chronic Other diseases of kidney and ureters (2 sources) Abnormal renal function; Translations: [Disorder of kidney and ureter, unspecified] 01-31-2023 Episodic Other ear and sense organ disorders (17 sources) Impacted cerumen; Translations: [Impacted cerumen, bilateral] 08-19-2018 Episodic Other ear and sense organ disorders (1 source) Impacted cerumen of bilateral ears; Translations: [Impacted cerumen, bilateral] 08-19-2018 Episodic Other endocrine disorders (14 sources) Hypoglycemia; Translations: [Hypoglycemia, unspecified] 03-30-2022 Chronic Other endocrine disorders (2 sources) Hypoglycemia, unspecified; Translations: [Hypoglycemia, unspecified] Chronic Other gastrointestinal disorders (20 sources) Malabsorption - iron; Translations: [Intestinal malabsorption, unspecified] Onset: 5 12-12-2024 Chronic Other gastrointestinal disorders (1 source) Intestinal malabsorption, unspecified; Translations: [Iron malabsorption (HCC)] Onset: 5 Chronic Other gastrointestinal disorders (20 sources) Diarrhea; Translations: [Diarrhea, unspecified] 11-23-2021 Episodic Other gastrointestinal disorders (19 sources) Constipation; Translations: [Constipation, unspecified] 06-15-2022 Episodic Other gastrointestinal disorders (9 sources) Constipation, unspecified; Translations: [Constipation, unspecified] 06-15-2022 Episodic Other gastrointestinal disorders (1 source) Chronic constipation; Translations: [Other constipation] 07-10-2023 Episodic Other gastrointestinal disorders (20 sources) Incontinence of feces; Translations: [Full incontinence of feces] Onset: 5 12-31-2024 Episodic Other gastrointestinal disorders (1 source) Fecal soiling co-occurrent and due to fecal incontinence; Translations: [Full incontinence of feces] 12-25-2024 Episodic Other inflammatory condition of skin (20 sources) Psoriasis; Translations: [Psoriasis and similar disorders] 06-22-2010 Chronic Other injuries and conditions due to external causes (20 sources) Closed injury of head; Translations: [Unspecified injury of head, initial encounter] 01-06-2019 Episodic Other injuries and conditions due to external causes (9 sources) Injury of head; Translations: [Unspecified injury of head, initial encounter] 03-04-2023 Episodic Other injuries and conditions due to external causes (2 sources) Contusion of rib; Translations: [Other specified injuries of thorax, initial encounter] 07-31-2023 Episodic Other lower respiratory disease (3 sources) Dyspnea on exertion; Translations: [Other forms of dyspnea] Episodic Other lower respiratory disease (11 sources) Rib pain; Translations: [Pleurodynia] 03-04-2023 Episodic Other nervous system disorders (20 sources) Carpal tunnel syndrome; Translations: [Carpal tunnel syndrome, unspecified upper limb] Onset: 2 01-03-2012 Chronic Other nervous system disorders (18 sources) Neuropathy; Translations: [Polyneuropathy, unspecified] 08-24-2014 Chronic Other nervous system disorders (1 source) Numbness of foot ; Translations: [Anesthesia of skin] Episodic Other non-traumatic joint disorders (18 sources) Shoulder pain; Translations: [Pain in unspecified shoulder] 07-14-2020 Episodic Other nutritional; endocrine; and metabolic disorders (1 source) Hypocalcemia; Translations: [Hypocalcemia] 04-03-2023 Chronic Other nutritional; endocrine; and metabolic disorders (3 sources) Hypervitaminosis D; Translations: [Hypervitaminosis D] 05-16-2024 Chronic Other nutritional; endocrine; and metabolic disorders (1 source) Hypervitaminosis D; Translations: [Hypervitaminosis D] Onset: 5 Chronic Other nutritional; endocrine; and metabolic disorders (14 sources) Adult failure to thrive syndrome; Translations: [Adult failure to thrive] 03-18-2022 Episodic Other nutritional; endocrine; and metabolic disorders (2 sources) Adult failure to thrive; Translations: [Adult failure to thrive] Episodic Other nutritional; endocrine; and metabolic disorders (3 sources) Abnormal weight loss; Translations: [Abnormal weight loss] 03-08-2024 Episodic Other nutritional; endocrine; and metabolic disorders (1 source) Decrease in appetite; Translations: [Anorexia] 10-31-2024 Episodic Other screening for suspected conditions (not mental disorders or infectious disease) (1 source) Encounter for screening for malignant neoplasm of prostate; Translations: [Screening for prostate cancer] Onset: 5 Episodic Pneumonia (except that caused by tuberculosis or sexually transmitted disease) (16 sources) Infective pneumonia; Translations: [Pneumonia, unspecified organism] Episodic Residual codes; unclassified (9 sources) Insomnia; Translations: [Insomnia, unspecified] Episodic Residual codes; unclassified (10 sources) Patient forgets to take medication; Translations: [Patient's other noncompliance with medication regimen] 10-02-2022 Episodic Residual codes; unclassified (1 source) Difficulty sleeping ; Translations: [Sleep disorder, unspecified] 09-13-2023 Episodic Residual codes; unclassified (1 source) Memory impairment; Translations: [Other amnesia] 02-07-2024 Episodic Spondylosis; intervertebral disc disorders; other back problems (20 sources) Degeneration of lumbar intervertebral disc; Translations: [Other intervertebral disc degeneration, lumbar region] Onset: 5 01-30-2015 Chronic Sprains and strains (20 sources) Lower back injury; Translations: [Strain of muscle, fascia and tendon of lower back, initial encounter] Onset: 8 Resolved: 0 09-14-2018 Episodic Superficial injury; contusion (20 sources) Abrasion of left knee; Translations: [Abrasion, left knee, initial encounter] 04-18-2022 Episodic Syncope (18 sources) Near syncope; Translations: [Syncope and collapse] 07-10-2016 Episodic Transient cerebral ischemia (20 sources) Transient cerebral ischemia; Translations: [Transient cerebral ischemic attack, unspecified] Onset: 0 08-24-2019 Chronic Comment on above: There is an old infa rction in the right basal ganglia. 09/2020 MRI Unclassified (20 sources) Type 2 diabetes mellitus without complication; Translations: [Uncontrolled type 2 diabetes mellitus without complication, without long-term current use of insulin] Onset: 5 07-11-2017 Unclassified (1 source) Patient encounter status 01-24-2025 Unclassified (1 source) Supraventricular tachycardia, unspecified; Translations: [Supraventricular tachycardia, unspecified] Onset: 5 Unclassified (1 source) PSVT (paroxysmal supraventricular tachycardia) (HCC); Translations: [PSVT (paroxysmal supraventricular tachycardia) (HCC)] Onset: 1 Unclassified (1 source) Consult Onset: 5 Urinary tract infections (17 sources) Urinary tract infectious disease; Translations: [Urinary tract infection, site not specified] 11-29-2021 Episodic Viral infection (18 sources) Disease caused by 2019-nCoV; Translations: [COVID-19] Episodic Past or Other Problems Problem Classification Problem Date Documented Da te Episodic/Chronic Allergic reactions (20 sources) Contact dermatitis; Translations: [Unspecified contact dermatitis, unspecified cause] Onset: 4 12-04-2013 Episodic Deficiency and other anemia (14 sources) Anemia, unspecified; Translations: [Anemia, unspecified] Onset: 5 Episodic Deficiency and other anemia (1 source) Other iron deficiency anemias; Translations: [Other iron deficiency anemia] Onset: 1 Episodic Open wounds of head; neck; and trunk (5 sources) Injury of buttock; Translations: [Unspecified open wound of left buttock, initial encounter] Onset: 5 12-23-2024 Episodic Other aftercare (1 source) 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; Translations: [intermediate (current) use of aspirin] Onset: 5 Episodic Other and unspecified benign neoplasm (20 sources) Benign neoplasm of colon; Translations: [Benign neoplasm of colon, unspecified] Onset: 1 04-14-2011 Episodic Other and unspecified benign neoplasm (20 sources) History of polyp of colon; Translations: [Personal history of colonic polyps] Onset: 8 12-12-2017 Episodic Other connective tissue disease (1 source) Pain in right lower leg; Translations: [Pain in right lower leg] Onset: 5 Episodic Other disorders of stomach and duodenum (20 sources) Nonulcer dyspepsia; Translations: [Functional dyspepsia] Onset: 8 12-12-2017 Episodic Other gastrointestinal disorders (1 source) Full incontinence of feces; Translations: [Incontinence of feces, unspecified fecal incontinence type] Onset: 5 Episodic Other gastrointestinal disorders (1 source) Diarrhea, unspecified; Translations: [Diarrhea, unspecified type] Onset: 5 Episodic Other injuries and conditions due to external causes (1 source) Encounter for examination and observation following other accident; Translations: [Encounter for examination and observation following other accident] Onset: 5 Episodic Other lower respiratory disease (20 sources) Dyspnea;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 Speci men Type: BLOOD SPECIMENOrdering Facility: [facility] Address: [address] [place] [address] Performed By: #### 5 7021-8 ####[facility] [id number] [place] [address] [place] Differential cell count method Nom (Bld) Auto Normal [facility] Comment on above: Order Comment: Speci men Type: BLOOD SPECIMENOrdering Facility: [facility] Address: [address] [place] [address] Performed By: #### 5 7021-8 ####[facility] MILLWMALIA [id number] [place] [address] [place] Eosinophils (Bld) [#/Vol] 0.09 10*3/uL Normal <0.46 [facility] Comment on above: Order Comment: Speci men Type: BLOOD SPECIMENOrdering Facility: [facility] Address: [address] [place] [address] Performed By: #### 5 7021-8 ####[facility] ERNCLIEstephania [id number] [place] [address] [place] Eosinophils/100 WBC (Bld) 1.5 % Normal [facility] Comment on above: Order Comment: Speci men Type: BLOOD SPECIMENOrdering Facility: [facility] Address: [address] [place] [address] Performed By: #### 5 7021-8 ####[facility] STEVEALTA VISTAMIRACLENIKKI [id number] [place] [address] [place] Erythrocyte distribution width (RBC) [Ratio] 13.8 % Normal 11.5-15.0 [facility] Comment on above: Order Comment: Speci men Type: BLOOD SPECIMENOrdering Facility: [facility] Address: [address] [place] [address] Performed By: #### 5 7021-8 ####[facility] ERNCNIKKI [id number] [place] [address] [place] Hematocrit (Bld) [Volume fraction] 28.9 % Low 39.0-51.0 [facility] Comment on above: Order Comment: Speci men Type: BLOOD SPECIMENOrdering Facility: [facility] Address: [address] [place] [address] Performed By: #### 5 7021-8 ####[facility] ERMIRACLELIA [id number] [place] [address] [place] Hemoglobin (Bld) [Mass/Vol] 9.4 g/dL Low 13.0-17.0 [facility] Comment on above: Order Comment: Speci men Type: BLOOD SPECIMENOrdering Facility: [facility] Address: [address] [place] [address] Performed By: #### 5 7021-8 ####[facility] ERNCLIA [id number] [place] [address] [place] Immature granulocytes (Bld) [#/Vol] 0.04 10*3/uL Normal <0.10 [facility] Comment on above: Order Comment: Speci men Type: BLOOD SPECIMENOrdering Facility: [facility] Address: [address] [place] [address] Performed By: #### 5 7021-8 ####[facility] [id number] [place] [address] [place] Immature granulocytes/100 WBC (Bld) 0.7 % Normal [facility] Comment on above: Order Comment: Speci men Type: BLOOD SPECIMENOrdering Facility: [facility] Address: [address] [place] [address] Performed By: #### 5 7021-8 ####[facility] [id number] [place] [address] [place] Lymphocytes (Bld) [#/Vol] 1.26 10*3/uL Normal 1.00-4.00 [facility] Comment on above: Order Comment: Speci men Type: BLOOD SPECIMENOrdering Facility: [facility] Address: [address] [place] [address] Performed By: #### 5 7021-8 ####[facility] [id number] [place] [address] [place] Lymphocytes/100 WBC (Bld) 21.6 % Normal [facility] Comment on above: Order Comment: Speci men Type: BLOOD SPECIMENOrdering Facility: [facility] Address: [address] [place] [address] Performed By: #### 5 7021-8 ####[facility] [id number] [place] [address] [place] MCH (RBC) [Entitic mass] 28.7 pg Normal 26.0-34.0 [facility] Comment on above: Order Comment: Speci men Type: BLOOD SPECIMENOrdering Facility: [facility] Address: [address] [place] [address] Performed By: #### 5 7021-8 ####[facility] STEVEWNCLIA [id number] [place] [address] [place] MCHC (RBC) [Mass/Vol] 32.5 g/dL Normal 30.5-36.0 [facility] Comment on above: Order Comment: Speci men Type: BLOOD SPECIMENOrdering Facility: [facility] Address: [address] [place] [address] Performed By: #### 5 7021-8 ####[facility] ERNCLIA [id number] [place] [address] [place] MCV (RBC) [Entitic vol] 88.1 fL Normal 80.0-100.0 [facility] Comment on above: Order Comment: Speci men Type: BLOOD SPECIMENOrdering Facility: [facility] Address: [address] [place] [address] Performed By: #### 5 7021-8 ####[facility]CL[facility] [id number] [place] [address] [place] Monocytes (Bld) [#/Vol] 0.52 10*3/uL Normal <0.87 [facility] Comment on above: Order Comment: Speci men Type: BLOOD SPECIMENOrdering Facility: [facility] Address: [address] [place] [address] Performed By: #### 5 7021-8 ####[facility] ER[facility]CL[facility] [id number] [place] [address] [place] Monocytes/100 WBC (Bld) 8.9 % Normal [facility] Comment on above: Order Comment: Speci men Type: BLOOD SPECIMENOrdering Facility: [facility] Address: [address] [place] [address] Performed By: #### 5 7021-8 ####[facility] ERMIRACLELIA [id number] [place] [address] [place] Neutrophils (Bld) [#/Vol] 3.89 10*3/uL Normal 1.45-7.50 [facility] Comment on above: Order Comment: Speci men Type: BLOOD SPECIMENOrdering Facility: [facility] Address: [address] [place] [address] Performed By: #### 5 7021-8 ####[facility] [id number] [place] [address] [place] Neutrophils/100 WBC (Bld) 67.0 % Normal [facility] Comment on above: Order Comment: Speci men Type: BLOOD SPECIMENOrdering Facility: [facility] Address: [address] [place] [address] Performed By: #### 5 7021-8 ####[facility] [id number] [place] [address] [place] Nucleated RBC (Bld) [#/Vol] 10*3/uL Normal <0.01 [facility] Comment on above: Order Comment: Speci men Type: BLOOD SPECIMENOrdering Facility: [facility] Address: [address] [place] [address] Performed By: #### 5 7021-8 ####[facility] [id number] [place] [address] [place] Nucleated RBC/100 WBC (Bld) [Ratio] 0.0 /100 WBC Normal [facility] Comment on above: Order Comment: Speci men Type: BLOOD SPECIMENOrdering Facility: [facility] Address: [address] [place] [address] Performed By: #### 5 7021-8 ####[facility] ERNCLI [id number] [place] [address] [place] Platelet mean volume (Bld) [Entitic vol] 9.6 fL Normal 9.0-12.7 [facility] Comment on above: Order Comment: Speci men Type: BLOOD SPECIMENOrdering Facility: [facility] Address: [address] [place] [address] Performed By: #### 5 7021-8 ####[facility] [id number] [place] [address] [place] Platelets (Bld) [#/Vol] 175 10*3/uL Normal 150-400 [facility] Comment on above: Order Comment: Speci men Type: BLOOD SPECIMENOrdering Facility: [facility] Address: [address] [place] [address] Performed By: #### 5 7021-8 ####[facility] [id number] [place] [address] [place] RBC (Bld) [#/Vol] 3.28 10*6/uL Low 4.20-6.00 [facility] Comment on above: Order Comment: Speci men Type: BLOOD SPECIMENOrdering Facility: [facility] Address: [address] [place] [address] Performed By: #### 5 7021-8 ####[facility] [id number] [place] [address] [place] WBC (Bld) [#/Vol] 5.82 10*3/uL Normal 3.70-11.00 [facility] [place] Comment on above: Order Comment: Speci men Type: BLOOD SPECIMENOrdering Facility: [facility] Address: [address] [place] [address] Performed By: #### 5 7021-8 ####[facility] [id number] [place] [address] [place] MPOon 05-05-2025 Anti-MPO Antibodies <0.2 Normal 0.0-0.9 [facility] Comment on above: Result Comment: Perf ormed At: [facility] [id number] Venancio Carbone MD Ph:[phone] Performed By: #### M G, RFP, PTH, FES, CBC, ADIFF, BMP, ANEU, GFR #### [address] [address] HHS4Eco 05-05-2025 Anti-PLA2R <1.8 Normal 0.0-19.9 [facility] Comment on above: Result Comment: Nega tive <14.0 Borderline 14.0 - 19.9 Positive >19.9 Performed At: [facility] [id number] Venancio Carbone MD Ph:[phone] Performed By: #### M G, RFP, PTH, FES, CBC, ADIFF, BMP, ANEU, GFR #### [address] [address] .Auto Diffon 05-03-2025 Basophil, Absolute 0.0 10 3/mcL Normal 0.0-0.3 [facility] Comment on above: Performed By: #### M G, RFP, PTH, FES, CBC, ADIFF, BMP, ANEU, GFR #### [address] [address] Basophils/100 WBC (Bld) 0.4 % Normal 0.0-2.5 [facility] Comment on above: Performed By: #### M G, RFP, PTH, FES, CBC, ADIFF, BMP, ANEU, GFR #### [address] [address] Eosinophil, Absolute 0.1 10 3/mcL Normal 0.0-0.7 [facility] Comment on above: Performed By: #### M G, RFP, PTH, FES, CBC, ADIFF, BMP, ANEU, GFR #### [address] [address] Eosinophils/100 WBC (Bld) 1.6 % Normal 0.0-6.0 [facility] Comment on above: Performed By: #### M G, RFP, PTH, FES, CBC, ADIFF, BMP, ANEU, GFR #### [address] [address] Lymphocyte, Absolute 1.5 10 3/mcL Normal 0.9-4.3 [facility] Comment on above: Performed By: #### M G, RFP, PTH, FES, CBC, ADIFF, BMP, ANEU, GFR #### [address] [address] Lymphocytes/100 WBC (Bld) 31.7 % Normal 20.0-40.0 [facility] Comment on above: Performed By: #### M G, RFP, PTH, FES, CBC, ADIFF, BMP, ANEU, GFR #### [address] [address] Monocyte, Absolute 0.4 10 3/mcL Normal 0.1-1.4 [facility] Comment on above: Performed By: #### M G, RFP, PTH, FES, CBC, ADIFF, BMP, ANEU, GFR #### [address] [address] Monocytes/100 WBC (Bld) 8.0 % Normal 2.0-13.0 [facility] Comment on above: Performed By: #### M G, RFP, PTH, FES, CBC, ADIFF, BMP, ANEU, GFR #### [address] [address] Neutrophils/100 WBC (Bld) 58.3 % Normal 50.0-75.0 [facility] Comment on above: Performed By: #### M G, RFP, PTH, FES, CBC, ADIFF, BMP, ANEU, GFR #### [address] [address] .GFRon 05-03-2025 Estimated Glomerular Filtration Rate 12 ml/min/1.73sqm Normal [facility] Comment on above: Result Comment: Stages of Chronic Kidney Disease (CKD) Stage Description eGFR(ml/min/1.73 sq.m.) CKD 1 Normal kidney function or >=90 normal kindney function with possible kidney damage (ex. Proteinuria) CKD 2 Kidney damage with mild loss 60-89 of kidney function CKD 3a Mild to moderate loss of kidney 45-59 function CKD 3b Moderate to severe loss of 30-44 of kindey function CKD 4 Severe loss of kidney function 15-29 CKD 5 Kidney failure <15 Note: (go live 2024) the eGFR calculation was updated to the 2020 CKD-EPI creatinine equation without a race factor to calculate the eGFR results. Performed By: #### M G, RFP, PTH, FES, CBC, ADIFF, BMP, ANEU, GFR #### [address] [address] .NEUABSon 05-03-2025 Neutrophil, Absolute 2.7 10 3/mcL Normal 2.3-8.1 [facility] Comment on above: Performed By: #### M G, RFP, PTH, FES, CBC, ADIFF, BMP, ANEU, GFR #### [address] [address] BMPon 05-03-2025 BUN/Creatinine Ratio 16.5 ratio Normal 10.0-22.0 [facility] Comment on above: Performed By: #### M G, RFP, PTH, FES, CBC, ADIFF, BMP, ANEU, GFR #### [address] [address] Calcium [Mass/Vol] 8.6 mg/dL Low 8.7-10.4 [facility] Comment on above: Performed By: #### M G, RFP, PTH, FES, CBC, ADIFF, BMP, ANEU, GFR #### [address] [address] Chloride [Moles/Vol] 110 mmol/L Normal 98-110 [facility] Comment on above: Performed By: #### M G, RFP, PTH, FES, CBC, ADIFF, BMP, ANEU, GFR #### [address] [address] CO2 [Moles/Vol] 20 mmol/L Low 22-32 [facility] Comment on above: Performed By: #### M G, RFP, PTH, FES, CBC, ADIFF, BMP, ANEU, GFR #### [address] [address] Creatinine [Mass/Vol] 5.02 mg/dL High 0.60-1.40 [facility] Comment on above: Result Comment: Test ing performed on Mocoplex analyzer using enzymatic creatinine methodology. Performed By: #### M G, RFP, PTH, FES, CBC, ADIFF, BMP, ANEU, GFR #### [address] [address] Electrolyte Balance 12.0 mEq/L Normal 4.0-15.0 [facility] Comment on above: Performed By: #### M G, RFP, PTH, FES, CBC, ADIFF, BMP, ANEU, GFR #### [address] [address] Glucose [Mass/Vol] 101 mg/dL Normal 82-115 [facility] Comment on above: Performed By: #### M G, RFP, PTH, FES, CBC, ADIFF, BMP, ANEU, GFR #### [address] [address] Potassium [Moles/Vol] 5.1 mmol/L High 3.5-5.0 [facility] Comment on above: Performed By: #### M G, RFP, PTH, FES, CBC, ADIFF, BMP, ANEU, GFR #### [address] [address] Sodium [Moles/Vol] 142 mmol/L Normal 136-145 [facility] Comment on above: Performed By: #### M G, RFP, PTH, FES, CBC, ADIFF, BMP, ANEU, GFR #### [address] [address] Urea nitrogen [Mass/Vol] 83.0 mg/dL High 8.0-22.0 [facility] Comment on above: Performed By: #### M G, RFP, PTH, FES, CBC, ADIFF, BMP, ANEU, GFR #### [address] [address] CBCon 05-03-2025 Erythrocyte distribution width (RBC) [Ratio] 15.2 % Normal 11.5-15.5 [facility] Comment on above: Performed By: #### M G, RFP, PTH, FES, CBC, ADIFF, BMP, ANEU, GFR #### [place] [address] Hematocrit (Bld) [Volume fraction] 29.6 % Low 40.0-52.0 [facility] Comment on above: Performed By: #### M G, RFP, PTH, FES, CBC, ADIFF, BMP, ANEU, GFR #### [place] [address] Hgb 9.7 G/dL Low 13.0-17.5 [facility] Comment on above: Performed By: #### M G, RFP, PTH, FES, CBC, ADIFF, BMP, ANEU, GFR #### [place] [address] MCH (RBC) [Entitic mass] 28.5 pg Normal 27.0-33.0 [facility] Comment on above: Performed By: #### M G, RFP, PTH, FES, CBC, ADIFF, BMP, ANEU, GFR #### [place] [address] MCHC 32.9 G/dL Normal 32.0-36.0 [facility] Comment on above: Performed By: #### M G, RFP, PTH, FES, CBC, ADIFF, BMP, ANEU, GFR #### [place] [address] MCV (RBC) [Entitic vol] 86.6 fL Normal 81.0-100.0 [facility] Comment on above: Performed By: #### M G, RFP, PTH, FES, CBC, ADIFF, BMP, ANEU, GFR #### [place] [address] Platelet 164 10 3/mcL Normal 150-450 [facility] Comment on above: Performed By: #### M G, RFP, PTH, FES, CBC, ADIFF, BMP, ANEU, GFR #### [place] [address] Platelet mean volume (Bld) [Entitic vol] 7.7 fL Normal 6.4-10.5 [facility] Comment on above: Performed By: #### M G, RFP, PTH, FES, CBC, ADIFF, BMP, ANEU, GFR #### [facility] [address] [place] [address] RBC 3.41 10 6/mcL Low 4.50-6.00 [facility] Comment on above: Performed By: #### M G, RFP, PTH, FES, CBC, ADIFF, BMP, ANEU, GFR #### [facility] [address] [place] [address] WBC 4.7 10 3/mcL Normal 4.5-10.8 [facility] Comment on above: Performed By: #### M G, RFP, PTH, FES, CBC, ADIFF, BMP, ANEU, GFR #### [facility] [address] [place] [address] LABORATORYOrdered By: Peggy Newberry on 05-03-2025 Glucose [Mass/Vol] 70 mg/dL Low 82 - 115 mg/dL [facility] Work Phone: LABORATORYOrdered By: SYSTEM SYSTEM on 05-03-2025 Basophils (Bld) [#/Vol] 0.0 103/mcL Normal 0.0 - 0.3 10^3/mcL AH Workflow SS Basophils/100 WBC (Bld) 0.4 % Normal 0.0 - 2.5 % AH Workflow SS Calcium [Mass/Vol] 8.6 mg/dL Low 8.7 - 10. 4 mg/dL ADM SS Chloride [Moles/Vol] 110 mmol/L Normal 98 - 11 0 mEq/L ADM SS CO2 [Moles/Vol] 20 mmol/L Low 22 - 32 mEq/L ADM SS Creatinine [Mass/Vol] 5.02 mg/dL High 0.60 - 1.40 mg/dL ADM SS Comment on above: Interpretive Data: T esting performed on Mocoplex analyzer using enzymatic creatinine methodology. Electrolyte Balance 12.0 mEq/L Normal 4.0 - 15 .0 mEq/L AH ADM SS Eosinophils (Bld) [#/Vol] 0.1 103/mcL Normal 0.0 - 0.7 10^3/mcL AH Workflow SS Eosinophils/100 WBC (Bld) 1.6 % Normal 0.0 - 6.0 % AH Workflow SS Erythrocyte distribution width (RBC) [Ratio] 15.2 % Normal 11.5 - 15.5 % AH Workflow SS Estimated Glomerular Filtration Rate 12 ml/min/1.73sqm Invalid Interpretation Code Chemistry S Comment on above: Interpretive Data: Stages of Chronic Kidney Disease (CKD) Stage Description eGFR(ml/min/1.73 sq.m.) CKD 1 Normal kidney function or >=90 normal kindney function with possible kidney damage (ex. Proteinuria) CKD 2 Kidney damage with mild loss 60-89 of kidney function CKD 3a Mild to moderate loss of kidney 45-59 function CKD 3b Moderate to severe loss of 30-44 of kindey function CKD 4 Severe loss of kidney function 15-29 CKD 5 Kidney failure <15 Note: (go live 2024) the eGFR calculation was updated to the 2020 CKD-EPI creatinine equation without a race factor to calculate the eGFR results. Glucose [Mass/Vol] 101 mg/dL Normal 82 - 115 mg/dL ADM SS Hematocrit (Bld) [Volume fraction] 29.6 % Low 40.0 - 52.0 % Workflow SS Hemoglobin (Bld) [Mass/Vol] 9.7 G/dL Low 13.0 - 17.5 G/dL Workflow SS Lymphocytes (Bld) [#/Vol] 1.5 103/mcL Normal 0.9 - 4.3 10^3/mcL Workflow SS Lymphocytes/100 WBC (Bld) 31.7 % Normal 20.0 - 40.0 % Workflow SS Magnesium [Mass/Vol] 2.3 mg/dL Normal 1.6 - 2 .4 mg/dL ADM SS MCH (RBC) [Entitic mass] 28.5 pg Normal 27. 0 - 33.0 pg Workflow SS MCHC 32.9 G/dL Normal 32.0 - 36.0 G/dL Workflow SS MCV (RBC) [Entitic vol] 86.6 fL Normal 81.0 - 100.0 fL Workflow SS Monocytes (Bld) [#/Vol] 0.4 103/mcL Normal 0.1 - 1.4 10^3/mcL Workflow SS Monocytes/100 WBC (Bld) 8.0 % Normal 2.0 - 13.0 % Workflow SS Neutrophils (Bld) [#/Vol] 2.7 103/mcL Normal 2.3 - 8.1 10^3/mcL Workflow SS Neutrophils/100 WBC (Bld) 58.3 % Normal 50.0 - 75.0 % Workflow SS Platelet mean volume (Bld) [Entitic vol] 7.7 fL Normal 6.4 - 10.5 fL Workflow SS Platelets (Bld) [#/Vol] 164 103/mcL Normal 150 - 450 10^3/mcL AH Workflow SS Potassium [Moles/Vol] 5.1 mmol/L High 3.5 - 5.0 mEq/L ADM SS RBC (Bld) [#/Vol] 3.41 106/mcL Low 4.50 - 6.00 10^6/mcL AH Workflow SS Sodium [Moles/Vol] 142 mmol/L Normal 136 - 145 mEq/L ADM SS Urea nitrogen [Mass/Vol] 83.0 mg/dL High 8.0 - 22.0 mg/dL ADM SS Urea nitrogen/Creatinine [Mass ratio] 16.5 ratio Normal 10.0 - 22.0 ratio ADM SS WBC (Bld) [#/Vol] 4.7 103/mcL Normal 4.5 - 10.8 10^3/mcL Workflow SS MGon 05-03-2025 Magnesium [Mass/Vol] 2.3 mg/dL Normal 1.6-2.4 [facility] Comment on above: Performed By: #### M G, RFP, PTH, FES, CBC, ADIFF, BMP, ANEU, GFR #### [address] [address] .Auto Diffon 05-02-2025 Basophil, Absolute 0.0 10 3/mcL Normal 0.0-0.3 [facility] Comment on above: Performed By: #### M G, RFP, PTH, FES, CBC, ADIFF, BMP, ANEU, GFR #### [address] [address] Basophils/100 WBC (Bld) 0.2 % Normal 0.0-2.5 [facility] Comment on above: Performed By: #### M G, RFP, PTH, FES, CBC, ADIFF, BMP, ANEU, GFR #### [address] [address] Eosinophil, Absolute 0.0 10 3/mcL Normal 0.0-0.7 [facility] Comment on above: Performed By: #### M G, RFP, PTH, FES, CBC, ADIFF, BMP, ANEU, GFR #### [address] [address] Eosinophils/100 WBC (Bld) 1.0 % Normal 0.0-6.0 [facility] Comment on above: Performed By: #### M G, RFP, PTH, FES, CBC, ADIFF, BMP, ANEU, GFR #### [address] [address] Lymphocyte, Absolute 1.1 10 3/mcL Normal 0.9-4.3 [facility] Comment on above: Performed By: #### M G, RFP, PTH, FES, CBC, ADIFF, BMP, ANEU, GFR #### [address] [address] Lymphocytes/100 WBC (Bld) 24.0 % Normal 20.0-40.0 [facility] Comment on above: Performed By: #### M G, RFP, PTH, FES, CBC, ADIFF, BMP, ANEU, GFR #### [address] [address] Monocyte, Absolute 0.3 10 3/mcL Normal 0.1-1.4 [facility] Comment on above: Performed By: #### M G, RFP, PTH, FES, CBC, ADIFF, BMP, ANEU, GFR #### [address] [address] Monocytes/100 WBC (Bld) 6.0 % Normal 2.0-13.0 [facility] Comment on above: Performed By: #### M G, RFP, PTH, FES, CBC, ADIFF, BMP, ANEU, GFR #### [address] [address] Neutrophils/100 WBC (Bld) 68.8 % Normal 50.0-75.0 [facility] Comment on above: Performed By: #### M G, RFP, PTH, FES, CBC, ADIFF, BMP, ANEU, GFR #### [address] [address] .GFRon 05-02-2025 Estimated Glomerular Filtration Rate 12 ml/min/1.73sqm Normal [facility] Comment on above: Result Comment: Stages of Chronic Kidney Disease (CKD) Stage Description eGFR(ml/min/1.73 sq.m.) CKD 1 Normal kidney function or >=90 normal kindney function with possible kidney damage (ex. Proteinuria) CKD 2 Kidney damage with mild loss 60-89 of kidney function CKD 3a Mild to moderate loss of kidney 45-59 function CKD 3b Moderate to severe loss of 30-44 of kindey function CKD 4 Severe loss of kidney function 15-29 CKD 5 Kidney failure <15 Note: (go live 2024) the eGFR calculation was updated to the 2020 CKD-EPI creatinine equation without a race factor to calculate the eGFR results. Performed By: #### M G, RFP, PTH, FES, CBC, ADIFF, BMP, ANEU, GFR #### [address] [address] .NEUABSon 05-02-2025 Neutrophil, Absolute 3.2 10 3/mcL Normal 2.3-8.1 [facility] Comment on above: Performed By: #### M G, RFP, PTH, FES, CBC, ADIFF, BMP, ANEU, GFR #### [address] [address] ANAIFSon 05-02-2025 Antinuclear Ab Screen Negative Normal Negative [facility] Comment on above: Result Comment: Anti -nuclear antibody test is used as an aid in diagnosis of systemic autoimmune diseases. Where positive and clinically warranted, follow-up using disease-specific testing is recommended. Low positive titers are not uncommon with advanced age, certain chronic infections, and malignancies among others. Test methodology: Indirect fluorescence immunoassay (IFA) using HEp-2 cells. Performed By: [facility] [address] [place] [address] Visual Merchandiser: Juan Burger III, M.D. CLIA#: [id number] Performed By: #### M G, RFP, PTH, FES, CBC, ADIFF, BMP, ANEU, GFR #### [address] [address] ANCAon 05-02-2025 Atypical pANCA <1:20 Normal Neg:<1:20 [facility] Comment on above: Result Comment: The atypical pANCA pattern has been observed in a significant percentage of patients with ulcerative colitis, primary sclerosing cholangitis and autoimmune hepatitis. Performed At: [address] [id number] Alex Bartlett PhD Ph:[phone] Performed By: #### M G, RFP, PTH, FES, CBC, ADIFF, BMP, ANEU, GFR #### [address] [address] Cytoplasmic (C-ANCA) <1:20 Normal Neg:<1:20 [facility] Comment on above: Performed By: #### M G, RFP, PTH, FES, CBC, ADIFF, BMP, ANEU, GFR #### [place] [id number] Perinuclear (P-ANCA) <1:20 Normal Neg:<1:20 [facility] Comment on above: Result Comment: The presence of positive fluorescence exhibiting P-ANCA or C-ANCA patterns alone is not specific for the diagnosis of Arthur's Granulomatosis (WG) or microscopic polyangiitis. Decisions about treatment should not be based solely on ANCA IFA results. The International ANCA Group Consensus recommends follow up testing of positive sera with both UT- 3 and MPO-ANCA enzyme immunoassays. As many as 5% serum samples are positive only by EIA. Ref. AM J Clin Pathol 1999;111:507-513. Performed By: #### M G, RFP, PTH, FES, CBC, ADIFF, BMP, ANEU, GFR #### [place] [id number] [facility] BUN/Creatinine Ratio 15.7 ratio Normal 10.0-22.0 [facility] Comment on above: Performed By: #### M G, RFP, PTH, FES, CBC, ADIFF, BMP, ANEU, GFR #### [address] [address] Calcium [Mass/Vol] 8.5 mg/dL Low 8.7-10.4 [facility] Comment on above: Performed By: #### M G, RFP, PTH, FES, CBC, ADIFF, BMP, ANEU, GFR #### [address] [address] Chloride [Moles/Vol] 110 mmol/L Normal 98-110 [facility] Comment on above: Performed By: #### M G, RFP, PTH, FES, CBC, ADIFF, BMP, ANEU, GFR #### [address] [address] CO2 [Moles/Vol] 22 mmol/L Normal 22-32 [facility] Comment on above: Performed By: #### M G, RFP, PTH, FES, CBC, ADIFF, BMP, ANEU, GFR #### [address] [address] Creatinine [Mass/Vol] 4.84 mg/dL High 0.60-1.40 [facility] Comment on above: Result Comment: Test ing performed on Mocoplex analyzer using enzymatic creatinine methodology. Performed By: #### M G, RFP, PTH, FES, CBC, ADIFF, BMP, ANEU, GFR #### [place] [id number] Electrolyte Balance 9.0 mEq/L Normal 4.0-15.0 [facility] Comment on above: Performed By: #### M G, RFP, PTH, FES, CBC, ADIFF, BMP, ANEU, GFR #### [address] [address] Glucose [Mass/Vol] 131 mg/dL High 82-115 [facility] Comment on above: Performed By: #### M G, RFP, PTH, FES, CBC, ADIFF, BMP, ANEU, GFR #### [address] [address] Potassium [Moles/Vol] 5.5 mmol/L High 3.5-5.0 [facility] Comment on above: Performed By: #### M G, RFP, PTH, FES, CBC, ADIFF, BMP, ANEU, GFR #### [address] [address] Sodium [Moles/Vol] 141 mmol/L Normal 136-145 [facility] Comment on above: Performed By: #### M G, RFP, PTH, FES, CBC, ADIFF, BMP, ANEU, GFR #### [place] [address] Urea nitrogen [Mass/Vol] 76.0 mg/dL High 8.0-22.0 [facility] Comment on above: Performed By: #### M G, RFP, PTH, FES, CBC, ADIFF, BMP, ANEU, GFR #### [place] [id number] CBCon 05-02-2025 Erythrocyte distribution width (RBC) [Ratio] 15.1 % Normal 11.5-15.5 [facility] Comment on above: Performed By: #### M G, RFP, PTH, FES, CBC, ADIFF, BMP, ANEU, GFR #### [place] [address] Hematocrit (Bld) [Volume fraction] 31.1 % Low 40.0-52.0 [facility] Comment on above: Performed By: #### M G, RFP, PTH, FES, CBC, ADIFF, BMP, ANEU, GFR #### [place] [address] Hgb 10.1 G/dL Low 13.0-17.5 [facility] Comment on above: Performed By: #### M G, RFP, PTH, FES, CBC, ADIFF, BMP, ANEU, GFR #### [place] [address] MCH (RBC) [Entitic mass] 28.3 pg Normal 27.0-33.0 [facility] Comment on above: Performed By: #### M G, RFP, PTH, FES, CBC, ADIFF, BMP, ANEU, GFR #### [place] [address] MCHC 32.6 G/dL Normal 32.0-36.0 [facility] Comment on above: Performed By: #### M G, RFP, PTH, FES, CBC, ADIFF, BMP, ANEU, GFR #### [place] [address] MCV (RBC) [Entitic vol] 86.8 fL Normal 81.0-100.0 [facility] Comment on above: Performed By: #### M G, RFP, PTH, FES, CBC, ADIFF, BMP, ANEU, GFR #### [place] [address] Platelet 164 10 3/mcL Normal 150-450 [facility] Comment on above: Performed By: #### M G, RFP, PTH, FES, CBC, ADIFF, BMP, ANEU, GFR #### [place] [address] Platelet mean volume (Bld) [Entitic vol] 7.7 fL Normal 6.4-10.5 [facility] Comment on above: Performed By: #### M G, RFP, PTH, FES, CBC, ADIFF, BMP, ANEU, GFR #### [place] [address] RBC 3.58 10 6/mcL Low 4.50-6.00 [facility] Comment on above: Performed By: #### M G, RFP, PTH, FES, CBC, ADIFF, BMP, ANEU, GFR #### [place] [address] WBC 4.6 10 3/mcL Normal 4.5-10.8 [facility] Comment on above: Performed By: #### M G, RFP, PTH, FES, CBC, ADIFF, BMP, ANEU, GFR #### [place] [address] CT HEAD OR BRAIN W/O CONTRAS Ton 05-02-2025 CT HEAD OR BRAIN W/O CONTRAST ORIGINAL EXAMINATION: CT OF THE HEAD WITHOUT CONTRAST 05/02/2025 10:52 am TECHNIQUE: CT of the head was performed without the administration of intravenous contrast. Automated exposure control, iterative reconstruction, and/or weight based adjustment of the mA/kV was utilized to reduce the radiation dose to as low as reasonably achievable. COMPARISON: Head CT 04/28/2025. HISTORY: ORDERING SYSTEM PROVIDED HISTORY: Reason for Exam: PT STATES ADMISSION FOR DIZZINESS/STROKE,PREV STROKE,current cowan SDH FINDINGS: BRAIN/VENTRICLES: Hypodense subdural collections measuring up to 4 mm unchanged. 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 The ventricles are not enlarged. No interval infarct or hemorrhage. No posterior fossa lesion. ORBITS: Lens replacements. SINUSES: The visualized paranasal sinuses and mastoid air cells demonstrate no acute abnormality. SOFT TISSUES/SKULL: No acute abnormality of the visualized skull or soft tissues. 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 Interpreted by: Juice Aleman Preliminary Report By: Juice Aleman Electronically signed By Juice Aleman Dictated Date: 05/02/2025 11:04:19 AM Prelim Date: 05/02/2025 11:06:22 AM Sign Date: 05/02/2025 11:06:22 AM Ordering Provider: GILBERT GIANG RP [facility] MAIN HBSAGon 05-02-2025 Hep B Surf Ag [facility] Comment on above: Performed By: #### M G, RFP, PTH, FES, CBC, ADIFF, BMP, ANEU, GFR #### [place] [id number] HCVon 05-02-2025 Hep C Ab Non-Reactive Normal [facility] Comment on above: Order Comment: no sp ecimen in lab - possibly all poured off for send out testing - spoke with Laurie GOODEN in at 05/01/2025 21:46:05 EDT Performed By: #### M G, RFP, PTH, FES, CBC, ADIFF, BMP, ANEU, GFR #### [place] [address] Hep C Ab Int See Interp [facility] MAIN Comment on above: Order Comment: no sp ecimen in lab - possibly all poured off for send out testing - spoke with Laurie GOODEN in at 05/01/2025 21:46:05 EDT Result Comment: Clinical Interpretation: Nonreactive: Samples with a value < 0.80 are considered nonreactive (negative) for antibodies to HCV. A negative test result does not exclude the possibility of exposure to or infection with HCV. HCV antibodies may be undetectable in some stages of the infection and in some clinical conditions. Performed By: #### M G, RFP, PTH, FES, CBC, ADIFF, BMP, ANEU, GFR #### [facility] [address] [place] [address] IFESon 05-02-2025 IFES Interpretation Immunofixation electrophoresis of serum shows the presence of only polyclonal immunoglobulins (IgG,A,M,[place] and Lambda), No monoclonal protein detected. Normal [facility] Comment on above: Result Comment: Elec tronically Signed by: MARCELLO SANTOS MD 05/02/2025 09:42 EDT Performed By: #### M G, RFP, PTH, FES, CBC, ADIFF, BMP, ANEU, GFR #### [facility] [address] [place] [address] LABORATORYOrdered By: Chon Coyne on 05-02-2025 Glucose [Mass/Vol] 149 mg/dL High 82 - 115 mg/dL [facility] Work Phone: LABORATORYOrdered By: Rodney Almeida on 05-02-2025 Blood Glucose Testing Reason Routine (05/02/25 4:15 PM) [facility] Work Phone: Glucose [Mass/Vol] 130 mg/dL High 82 - 115 mg/dL [facility] Work Phone: LABORATORYOrdered By: Chad Forrest on 05-02-2025 Blood Glucose Testing Reason Routine (05/02/25 11:41 AM) [facility] Work Phone: Blood Glucose Testing Reason Routine (05/02/25 7:55 AM) [facility] Work Phone: LABORATORYOrdered By: SYSTEM SYSTEM on 05-02-2025 Albumin BCP dye [Mass/Vol] 3.0 G/dL Low 3.2 - 4.8 G/dL AH ADM SS Basophils (Bld) [#/Vol] 0.0 103/mcL Normal 0.0 - 0.3 10^3/mcL AH Workflow SS Basophils/100 WBC (Bld) 0.2 % Normal 0.0 - 2.5 % AH Workflow SS Eosinophils (Bld) [#/Vol] 0.0 103/mcL Normal 0.0 - 0.7 10^3/mcL AH Workflow SS Eosinophils/100 WBC (Bld) 1.0 % Normal 0.0 - 6.0 % AH Workflow SS Erythrocyte distribution width (RBC) [Ratio] 15.1 % Normal 11.5 - 15.5 % AH Workflow SS Estimated Glomerular Filtration Rate 12 ml/min/1.73sqm Invalid Interpretation Code Chemistry S Comment on above: Interpretive Data: Stages of Chronic Kidney Disease (CKD) Stage Description eGFR(ml/min/1.73 sq.m.) CKD 1 Normal kidney function or >=90 normal kindney function with possible kidney damage (ex. Proteinuria) CKD 2 Kidney damage with mild loss 60-89 of kidney function CKD 3a Mild to moderate loss of kidney 45-59 function CKD 3b Moderate to severe loss of 30-44 of kindey function CKD 4 Severe loss of kidney function 15-29 CKD 5 Kidney failure <15 Note: (go live 2024) the eGFR calculation was updated to the 2020 CKD-EPI creatinine equation without a race factor to calculate the eGFR results. Hematocrit (Bld) [Volume fraction] 31.1 % Low 40.0 - 52.0 % Workflow SS Hemoglobin (Bld) [Mass/Vol] 10.1 G/dL Low 13.0 - 17.5 G/dL Workflow SS Lymphocytes (Bld) [#/Vol] 1.1 103/mcL Normal 0.9 - 4.3 10^3/mcL Workflow SS Lymphocytes/100 WBC (Bld) 24.0 % Normal 20.0 - 40.0 % Workflow SS Magnesium [Mass/Vol] 2.1 mg/dL Normal 1.6 - 2 .4 mg/dL ADM SS MCH (RBC) [Entitic mass] 28.3 pg Normal 27. 0 - 33.0 pg Workflow SS MCHC 32.6 G/dL Normal 32.0 - 36.0 G/dL Workflow SS MCV (RBC) [Entitic vol] 86.8 fL Normal 81.0 - 100.0 fL Workflow SS Monocytes (Bld) [#/Vol] 0.3 103/mcL Normal 0.1 - 1.4 10^3/mcL Workflow SS Monocytes/100 WBC (Bld) 6.0 % Normal 2.0 - 13.0 % AH Workflow SS Neutrophils (Bld) [#/Vol] 3.2 103/mcL Normal 2.3 - 8.1 10^3/mcL Workflow SS Neutrophils/100 WBC (Bld) 68.8 % Normal 50.0 - 75.0 % AH Workflow SS Phosphate [Mass/Vol] 6.5 mg/dL High 2.4 - 5 .1 mg/dL AH ADM SS Platelet mean volume (Bld) [Entitic vol] 7.7 fL Normal 6.4 - 10.5 fL AH Workflow SS Platelets (Bld) [#/Vol] 164 103/mcL Normal 150 - 450 10^3/mcL AH Workflow SS RBC (Bld) [#/Vol] 3.58 106/mcL Low 4.50 - 6.00 10^6/mcL AH Workflow SS WBC (Bld) [#/Vol] 4.6 103/mcL Normal 4.5 - 10.8 10^3/mcL AH Workflow SS LABORATORYOrdered By: Ellen Khan on 05-02-2025 HBV surface Ag IA Ql Non-Reactive (05/02/25 12:21 AM) Normal Non-Reacti ve AH ADM SS HCV Ab IA Ql Non-Reactive (05/02/25 12:21 AM) Normal Non-Reacti ve AH ADM SS HCV Ab IA Ql See Interp 12 *NA* (05/02/25 12:21 AM) Invalid Interpretation Code Chemistry S Comment on above: Result Comment: Clinical Interpretation: Nonreactive: Samples with a value < 0.80 are considered nonreactive (negative) for antibodies to HCV. A negative test result does not exclude the possibility of exposure to or infection with HCV. HCV antibodies may be undetectable in some stages of the infection and in some clinical conditions. LABORATORYOrdered By: ENA SANTOS on 05-02-2025 Interpretation Immunofixation [Interp] Immunofixation electrophoresis of serum shows the presence of only polyclonal immunoglobulins (IgG,A,M,[place] and Lambda), No monoclonal protein detected. Invalid Interpretation Code Special Chem SS Work Phone: Laboratory - Chemistry and C hemistry - challengeOrdered By: SYSTEM SYSTEM on 05-02-2025 Calcium [Mass/Vol] 8.5 mg/dL Low 8.7 - 10. 4 mg/dL AH ADM SS Chloride [Moles/Vol] 110 mmol/L Normal 98 - 11 0 mEq/L AH ADM SS CO2 [Moles/Vol] 22 mmol/L Normal 22 - 32 mEq/L AH ADM SS Creatinine [Mass/Vol] 4.84 mg/dL High 0.60 - 1.40 mg/dL ADM SS Comment on above: Interpretive Data: T esting performed on Mocoplex analyzer using enzymatic creatinine methodology. Glucose [Mass/Vol] 131 mg/dL High 82 - 115 mg/dL ADM SS Potassium [Moles/Vol] 5.5 mmol/L High 3.5 - 5.0 mEq/L ADM SS Sodium [Moles/Vol] 141 mmol/L Normal 136 - 145 mEq/L ADM SS Urea nitrogen [Mass/Vol] 76.0 mg/dL High 8.0 - 22.0 mg/dL ADM SS Urea nitrogen/Creatinine [Mass ratio] 15.7 ratio Normal 10.0 - 22.0 ratio ADM SS MGon 05-02-2025 Magnesium [Mass/Vol] 2.1 mg/dL Normal 1.6-2.4 [facility] Comment on above: Performed By: #### M G, RFP, PTH, FES, CBC, ADIFF, BMP, ANEU, GFR #### [place] [address] No Panel InformationOrdered By: SYSTEM SYSTEM on 05-02-2025 Electrolyte Balance 9.0 mEq/L Normal 4.0 - 15 .0 mEq/L ADM SS RFPon 05-02-2025 Albumin Level 3.0 G/dL Low 3.2-4.8 [facility] Comment on above: Performed By: #### M G, RFP, PTH, FES, CBC, ADIFF, BMP, ANEU, GFR #### [place] [address] Phosphate [Mass/Vol] 6.5 mg/dL High 2.4-5.1 [facility] Comment on above: Performed By: #### M G, RFP, PTH, FES, CBC, ADIFF, BMP, ANEU, GFR #### [place] [address] .Auto Diffon 05-01-2025 Basophil, Absolute 0.0 10 3/mcL Normal 0.0-0.3 [facility] Comment on above: Performed By: #### M G, RFP, PTH, FES, CBC, ADIFF, BMP, ANEU, GFR #### [address] [address] Basophils/100 WBC (Bld) 0.1 % Normal 0.0-2.5 [facility] Comment on above: Performed By: #### M G, RFP, PTH, FES, CBC, ADIFF, BMP, ANEU, GFR #### [address] [address] Eosinophil, Absolute 0.1 10 3/mcL Normal 0.0-0.7 [facility]IN Comment on above: Performed By: #### M G, RFP, PTH, FES, CBC, ADIFF, BMP, ANEU, GFR #### [address] [address] Eosinophils/100 WBC (Bld) 0.8 % Normal 0.0-6.0 [facility] Comment on above: Performed By: #### M G, RFP, PTH, FES, CBC, ADIFF, BMP, ANEU, GFR #### [address] [address] Lymphocyte, Absolute 1.2 10 3/mcL Normal 0.9-4.3 [facility]IN Comment on above: Performed By: #### M G, RFP, PTH, FES, CBC, ADIFF, BMP, ANEU, GFR #### [address] [address] Lymphocytes/100 WBC (Bld) 17.8 % Low 20.0-40.0 [facility] Comment on above: Performed By: #### M G, RFP, PTH, FES, CBC, ADIFF, BMP, ANEU, GFR #### [address] [address] Monocyte, Absolute 0.4 10 3/mcL Normal 0.1-1.4 [facility] Comment on above: Performed By: #### M G, RFP, PTH, FES, CBC, ADIFF, BMP, ANEU, GFR #### [address] [address] Monocytes/100 WBC (Bld) 6.0 % Normal 2.0-13.0 [facility] Comment on above: Performed By: #### M G, RFP, PTH, FES, CBC, ADIFF, BMP, ANEU, GFR #### [place] [id number] [address] [place] [address] Neutrophils/100 WBC (Bld) 75.3 % High 50.0-75.0 [facility] Comment on above: Performed By: #### M G, RFP, PTH, FES, CBC, ADIFF, BMP, ANEU, GFR #### [address] [address] .GFRon 05-01-2025 Estimated Glomerular Filtration Rate 14 ml/min/1.73sqm Normal [facility] Comment on above: Result Comment: Stages of Chronic Kidney Disease (CKD) Stage Description eGFR(ml/min/1.73 sq.m.) CKD 1 Normal kidney function or >=90 normal kindney function with possible kidney damage (ex. Proteinuria) CKD 2 Kidney damage with mild loss 60-89 of kidney function CKD 3a Mild to moderate loss of kidney 45-59 function CKD 3b Moderate to severe loss of 30-44 of kindey function CKD 4 Severe loss of kidney function 15-29 CKD 5 Kidney failure <15 Note: (go live 2024) the eGFR calculation was updated to the 2020 CKD-EPI creatinine equation without a race factor to calculate the eGFR results. Performed By: #### M G, RFP, PTH, FES, CBC, ADIFF, BMP, ANEU, GFR #### [address] [address] .NEUABSon 05-01-2025 Neutrophil, Absolute 4.9 10 3/mcL Normal 2.3-8.1 [facility] MAIN Comment on above: Performed By: #### M G, RFP, PTH, FES, CBC, ADIFF, BMP, ANEU, GFR #### [address] [address] BMPon 05-01-2025 BUN/Creatinine Ratio 15.2 ratio Normal 10.0-22.0 [facility] Comment on above: Performed By: #### M G, RFP, PTH, FES, CBC, ADIFF, BMP, ANEU, GFR #### [address] [address] Calcium [Mass/Vol] 8.8 mg/dL Normal 8.7-10.4 [facility] Comment on above: Performed By: #### M G, RFP, PTH, FES, CBC, ADIFF, BMP, ANEU, GFR #### [place] [id number] Chloride [Moles/Vol] 106 mmol/L Normal 98-110 [facility] Comment on above: Performed By: #### M G, RFP, PTH, FES, CBC, ADIFF, BMP, ANEU, GFR #### [place] [id number] CO2 [Moles/Vol] 21 mmol/L Low 22-32 [facility] Comment on above: Performed By: #### M G, RFP, PTH, FES, CBC, ADIFF, BMP, ANEU, GFR #### [place] [id number] Creatinine [Mass/Vol] 4.40 mg/dL High 0.60-1.40 [facility] Comment on above: Result Comment: Test ing performed on Mocoplex analyzer using enzymatic creatinine methodology. Performed By: #### M G, RFP, PTH, FES, CBC, ADIFF, BMP, ANEU, GFR #### [place] [id number] Electrolyte Balance 13.0 mEq/L Normal 4.0-15.0 [facility] Comment on above: Performed By: #### M G, RFP, PTH, FES, CBC, ADIFF, BMP, ANEU, GFR #### [place] [id number] Glucose [Mass/Vol] 138 mg/dL High 82-115 [facility] Comment on above: Performed By: #### M G, RFP, PTH, FES, CBC, ADIFF, BMP, ANEU, GFR #### [place] [id number] Potassium [Moles/Vol] 5.4 mmol/L High 3.5-5.0 [facility] Comment on above: Performed By: #### M G, RFP, PTH, FES, CBC, ADIFF, BMP, ANEU, GFR #### [place] [id number] Sodium [Moles/Vol] 140 mmol/L Normal 136-145 [facility] Comment on above: Performed By: #### M G, RFP, PTH, FES, CBC, ADIFF, BMP, ANEU, GFR #### [place] [address] Urea nitrogen [Mass/Vol] 67.0 mg/dL High 8.0-22.0 [facility] Comment on above: Performed By: #### M G, RFP, PTH, FES, CBC, ADIFF, BMP, ANEU, GFR #### [place] [id number] CBCon 05-01-2025 Erythrocyte distribution width (RBC) [Ratio] 15.0 % Normal 11.5-15.5 [facility] Comment on above: Performed By: #### M G, RFP, PTH, FES, CBC, ADIFF, BMP, ANEU, GFR #### [place] [address] Hematocrit (Bld) [Volume fraction] 31.1 % Low 40.0-52.0 [facility] Comment on above: Performed By: #### M G, RFP, PTH, FES, CBC, ADIFF, BMP, ANEU, GFR #### [place] [address] Hgb 10.5 G/dL Low 13.0-17.5 [facility] Comment on above: Performed By: #### M G, RFP, PTH, FES, CBC, ADIFF, BMP, ANEU, GFR #### [place] [address] MCH (RBC) [Entitic mass] 28.9 pg Normal 27.0-33.0 [facility] Comment on above: Performed By: #### M G, RFP, PTH, FES, CBC, ADIFF, BMP, ANEU, GFR #### [place] [address] MCHC 33.8 G/dL Normal 32.0-36.0 [facility] Comment on above: Performed By: #### M G, RFP, PTH, FES, CBC, ADIFF, BMP, ANEU, GFR #### [place] [address] MCV (RBC) [Entitic vol] 85.5 fL Normal 81.0-100.0 [facility] Comment on above: Performed By: #### M G, RFP, PTH, FES, CBC, ADIFF, BMP, ANEU, GFR #### [place] [address] Platelet 175 10 3/mcL Normal 150-450 [facility] Comment on above: Performed By: #### M G, RFP, PTH, FES, CBC, ADIFF, BMP, ANEU, GFR #### [place] [address] Platelet mean volume (Bld) [Entitic vol] 7.3 fL Normal 6.4-10.5 [facility] Comment on above: Performed By: #### M G, RFP, PTH, FES, CBC, ADIFF, BMP, ANEU, GFR #### [place] [address] RBC 3.64 10 6/mcL Low 4.50-6.00 [facility] Comment on above: Performed By: #### M G, RFP, PTH, FES, CBC, ADIFF, BMP, ANEU, GFR #### [place] [address] WBC 6.6 10 3/mcL Normal 4.5-10.8 [facility] Comment on above: Performed By: #### M G, RFP, PTH, FES, CBC, ADIFF, BMP, ANEU, GFR #### [place] [address] LABORATORYOrdered By: LOKI GONZALEZ CONTRIBUTOR_SYSTEM on 05-01-2025 Antinuclear Ab Screen Negative Invalid Interpretation Code Negative Sendouts SS Comment on above: Result Comment: Anti -nuclear antibody test is used as an aid in diagnosis of systemic autoimmune diseases. Where positive and clinically warranted, follow-up using disease-specific testing is recommended. Low positive titers are not uncommon with advanced age, certain chronic infections, and malignancies among others. Test methodology: Indirect fluorescence immunoassay (IFA) using HEp-2 cells. Performed By: [facility] [address] [place] [address] Visual Merchandiser: Juan Burger III, M.D. [facility]#: [id number] LABORATORYOrdered By: [employer] P CONTRIBUTOR_SYSTEM on 05-01-2025 Atypical pANCA (LC) <1:20 Invalid Interpretation Code Neg:<1:20 AH Sendouts SS Comment on above: Result Comment: The atypical pANCA pattern has been observed in a significant percentage of patients with ulcerative colitis, primary sclerosing cholangitis and autoimmune hepatitis. Performed At: [facility] [address] [id number] Alex Bartlett PhD Ph:[phone] Cytoplasmic (C-ANCA) (LC) <1:20 Invalid Interpretation Code Neg:<1:20 AH Sendouts SS Perinuclear (P-ANCA) (LC) <1:20 Invalid Interpretation Code Neg:<1:20 AH Sendouts SS Comment on above: Result Comment: The presence of positive fluorescence exhibiting P-ANCA or C-ANCA patterns alone is not specific for the diagnosis of Arthur's Granulomatosis (WG) or microscopic polyangiitis. Decisions about treatment should not be based solely on ANCA IFA results. The International ANCA Group Consensus recommends follow up testing of positive sera with both UT- 3 and MPO-ANCA enzyme immunoassays. As many as 5% serum samples are positive only by EIA. Ref. AM J Clin Pathol 1999;111:507-513. LABORATORYOrdered By: SYSTEM SYSTEM on 05-01-2025 Basophils (Bld) [#/Vol] 0.0 103/mcL Normal 0.0 - 0.3 10^3/mcL AH Workflow SS Basophils/100 WBC (Bld) 0.1 % Normal 0.0 - 2.5 % AH Workflow SS Eosinophils (Bld) [#/Vol] 0.1 103/mcL Normal 0.0 - 0.7 10^3/mcL AH Workflow SS Eosinophils/100 WBC (Bld) 0.8 % Normal 0.0 - 6.0 % AH Workflow SS Erythrocyte distribution width (RBC) [Ratio] 15.0 % Normal 11.5 - 15.5 % AH Workflow SS Estimated Glomerular Filtration Rate 14 ml/min/1.73sqm Invalid Interpretation Code AH ADM SS Comment on above: Interpretive Data: Stages of Chronic Kidney Disease (CKD) Stage Description eGFR(ml/min/1.73 sq.m.) CKD 1 Normal kidney function or >=90 normal kindney function with possible kidney damage (ex. Proteinuria) CKD 2 Kidney damage with mild loss 60-89 of kidney function CKD 3a Mild to moderate loss of kidney 45-59 function CKD 3b Moderate to severe loss of 30-44 of kindey function CKD 4 Severe loss of kidney function 15-29 CKD 5 Kidney failure <15 Note: (go live 2024) the eGFR calculation was updated to the 2020 CKD-EPI creatinine equation without a race factor to calculate the eGFR results. Hematocrit (Bld) [Volume fraction] 31.1 % Low 40.0 - 52.0 % AH Workflow SS Hemoglobin (Bld) [Mass/Vol] 10.5 G/dL Low 13.0 - 17.5 G/dL AH Workflow SS Lymphocytes (Bld) [#/Vol] 1.2 103/mcL Normal 0.9 - 4.3 10^3/mcL AH Workflow SS Lymphocytes/100 WBC (Bld) 17.8 % Low 20.0 - 40.0 % AH Workflow SS Magnesium [Mass/Vol] 2.1 mg/dL Normal 1.6 - 2 .4 mg/dL AH ADM SS Magnesium [Mass/Vol] 2.2 mg/dL Normal 1.6 - 2 .4 mg/dL AH ADM SS MCH (RBC) [Entitic mass] 28.9 pg Normal 27. 0 - 33.0 pg AH Workflow SS MCHC 33.8 G/dL Normal 32.0 - 36.0 G/dL AH Workflow SS MCV (RBC) [Entitic vol] 85.5 fL Normal 81.0 - 100.0 fL AH Workflow SS Monocytes (Bld) [#/Vol] 0.4 103/mcL Normal 0.1 - 1.4 10^3/mcL AH Workflow SS Monocytes/100 WBC (Bld) 6.0 % Normal 2.0 - 13.0 % AH Workflow SS Neutrophils (Bld) [#/Vol] 4.9 103/mcL Normal 2.3 - 8.1 10^3/mcL AH Workflow SS Neutrophils/100 WBC (Bld) 75.3 % High 50.0 - 75.0 % AH Workflow SS Platelet mean volume (Bld) [Entitic vol] 7.3 fL Normal 6.4 - 10.5 fL AH Workflow SS Platelets (Bld) [#/Vol] 175 103/mcL Normal 150 - 450 10^3/mcL AH Workflow SS RBC (Bld) [#/Vol] 3.64 106/mcL Low 4.50 - 6.00 10^6/mcL AH Workflow SS WBC (Bld) [#/Vol] 6.6 103/mcL Normal 4.5 - 10.8 10^3/mcL AH Workflow SS MGon 05-01-2025 Magnesium [Mass/Vol] 2.1 mg/dL Normal 1.6-2.4 [facility] Comment on above: Performed By: #### M G, RFP, PTH, FES, CBC, ADIFF, BMP, ANEU, GFR #### [address] [address] Magnesium [Mass/Vol] 2.2 mg/dL Normal 1.6-2.4 [facility] Comment on above: Performed By: #### M G, RFP, PTH, FES, CBC, ADIFF, BMP, ANEU, GFR #### [address] [address] .Auto Diffon 04-30-2025 Basophil, Absolute 0.0 10 3/mcL Normal 0.0-0.3 [facility] Comment on above: Performed By: #### M G, RFP, PTH, FES, CBC, ADIFF, BMP, ANEU, GFR #### [address] [address] Basophils/100 WBC (Bld) 0.3 % Normal 0.0-2.5 [facility] Comment on above: Performed By: #### M G, RFP, PTH, FES, CBC, ADIFF, BMP, ANEU, GFR #### [address] [address] Eosinophil, Absolute 0.1 10 3/mcL Normal 0.0-0.7 [facility] Comment on above: Performed By: #### M G, RFP, PTH, FES, CBC, ADIFF, BMP, ANEU, GFR #### [address] [address] Eosinophils/100 WBC (Bld) 2.3 % Normal 0.0-6.0 [facility] Comment on above: Performed By: #### M G, RFP, PTH, FES, CBC, ADIFF, BMP, ANEU, GFR #### [address] [address] Lymphocyte, Absolute 1.2 10 3/mcL Normal 0.9-4.3 [facility] Comment on above: Performed By: #### M G, RFP, PTH, FES, CBC, ADIFF, BMP, ANEU, GFR #### [address] [address] Lymphocytes/100 WBC (Bld) 23.7 % Normal 20.0-40.0 [facility] Comment on above: Performed By: #### M G, RFP, PTH, FES, CBC, ADIFF, BMP, ANEU, GFR #### [address] [address] Monocyte, Absolute 0.4 10 3/mcL Normal 0.1-1.4 [facility] Comment on above: Performed By: #### M G, RFP, PTH, FES, CBC, ADIFF, BMP, ANEU, GFR #### [address] [address] Monocytes/100 WBC (Bld) 8.4 % Normal 2.0-13.0 [facility] Comment on above: Performed By: #### M G, RFP, PTH, FES, CBC, ADIFF, BMP, ANEU, GFR #### [address] [address] Neutrophils/100 WBC (Bld) 65.3 % Normal 50.0-75.0 [facility] Comment on above: Performed By: #### M G, RFP, PTH, FES, CBC, ADIFF, BMP, ANEU, GFR #### [address] [address] .GFRon 04-30-2025 Estimated Glomerular Filtration Rate 16 ml/min/1.73sqm Normal [facility] Comment on above: Result Comment: Stages of Chronic Kidney Disease (CKD) Stage Description eGFR(ml/min/1.73 sq.m.) CKD 1 Normal kidney function or >=90 normal kindney function with possible kidney damage (ex. Proteinuria) CKD 2 Kidney damage with mild loss 60-89 of kidney function CKD 3a Mild to moderate loss of kidney 45-59 function CKD 3b Moderate to severe loss of 30-44 of kindey function CKD 4 Severe loss of kidney function 15-29 CKD 5 Kidney failure <15 Note: (go live 2024) the eGFR calculation was updated to the 2020 CKD-EPI creatinine equation without a race factor to calculate the eGFR results. Performed By: #### M G, RFP, PTH, FES, CBC, ADIFF, BMP, ANEU, GFR #### [address] [address] .NEUABSon 04-30-2025 Neutrophil, Absolute 3.3 10 3/mcL Normal 2.3-8.1 [facility] Comment on above: Performed By: #### M G, RFP, PTH, FES, CBC, ADIFF, BMP, ANEU, GFR #### [address] [address] BMPon 04-30-2025 BUN/Creatinine Ratio 14.2 ratio Normal 10.0-22.0 [facility] Comment on above: Performed By: #### M G, RFP, PTH, FES, CBC, ADIFF, BMP, ANEU, GFR #### [place] [id number] Calcium [Mass/Vol] 8.9 mg/dL Normal 8.7-10.4 [facility] Comment on above: Performed By: #### M G, RFP, PTH, FES, CBC, ADIFF, BMP, ANEU, GFR #### [address] [address] Chloride [Moles/Vol] 106 mmol/L Normal 98-110 [facility] Comment on above: Performed By: #### M G, RFP, PTH, FES, CBC, ADIFF, BMP, ANEU, GFR #### [address] [address] CO2 [Moles/Vol] 22 mmol/L Normal 22-32 [facility] Comment on above: Performed By: #### M G, RFP, PTH, FES, CBC, ADIFF, BMP, ANEU, GFR #### [address] [address] Creatinine [Mass/Vol] 4.01 mg/dL High 0.60-1.40 [facility] Comment on above: Result Comment: Test ing performed on Mocoplex analyzer using enzymatic creatinine methodology. Performed By: #### M G, RFP, PTH, FES, CBC, ADIFF, BMP, ANEU, GFR #### [address] [address] Electrolyte Balance 11.0 mEq/L Normal 4.0-15.0 [facility] Comment on above: Performed By: #### M G, RFP, PTH, FES, CBC, ADIFF, BMP, ANEU, GFR #### [place] [id number] Glucose [Mass/Vol] 125 mg/dL High 82-115 [facility] Comment on above: Performed By: #### M G, RFP, PTH, FES, CBC, ADIFF, BMP, ANEU, GFR #### [place] [id number] Potassium [Moles/Vol] 5.0 mmol/L Normal 3.5-5.0 [facility] Comment on above: Performed By: #### M G, RFP, PTH, FES, CBC, ADIFF, BMP, ANEU, GFR #### [place] [id number] Sodium [Moles/Vol] 139 mmol/L Normal 136-145 [facility] Comment on above: Performed By: #### M G, RFP, PTH, FES, CBC, ADIFF, BMP, ANEU, GFR #### [address] [address] Urea nitrogen [Mass/Vol] 57.0 mg/dL High 8.0-22.0 [facility] Comment on above: Performed By: #### M G, RFP, PTH, FES, CBC, ADIFF, BMP, ANEU, GFR #### [address] [address] CBCon 04-30-2025 Erythrocyte distribution width (RBC) [Ratio] 14.7 % Normal 11.5-15.5 [facility] Comment on above: Performed By: #### M G, RFP, PTH, FES, CBC, ADIFF, BMP, ANEU, GFR #### [place] [address] Hematocrit (Bld) [Volume fraction] 30.8 % Low 40.0-52.0 [facility] Comment on above: Performed By: #### M G, RFP, PTH, FES, CBC, ADIFF, BMP, ANEU, GFR #### [place] [address] Hgb 10.3 G/dL Low 13.0-17.5 [facility] Comment on above: Performed By: #### M G, RFP, PTH, FES, CBC, ADIFF, BMP, ANEU, GFR #### [place] [address] MCH (RBC) [Entitic mass] 28.7 pg Normal 27.0-33.0 [facility] Comment on above: Performed By: #### M G, RFP, PTH, FES, CBC, ADIFF, BMP, ANEU, GFR #### [place] [address] MCHC 33.5 G/dL Normal 32.0-36.0 [facility] Comment on above: Performed By: #### M G, RFP, PTH, FES, CBC, ADIFF, BMP, ANEU, GFR #### [place] [address] MCV (RBC) [Entitic vol] 85.7 fL Normal 81.0-100.0 [facility] Comment on above: Performed By: #### M G, RFP, PTH, FES, CBC, ADIFF, BMP, ANEU, GFR #### [place] [address] Platelet 160 10 3/mcL Normal 150-450 [facility] Comment on above: Performed By: #### M G, RFP, PTH, FES, CBC, ADIFF, BMP, ANEU, GFR #### [place] [address] Platelet mean volume (Bld) [Entitic vol] 7.3 fL Normal 6.4-10.5 [facility] Comment on above: Performed By: #### M G, RFP, PTH, FES, CBC, ADIFF, BMP, ANEU, GFR #### [place] [address] RBC 3.60 10 6/mcL Low 4.50-6.00 [facility] Comment on above: Performed By: #### M G, RFP, PTH, FES, CBC, ADIFF, BMP, ANEU, GFR #### [place] [address] WBC 5.0 10 3/mcL Normal 4.5-10.8 [facility] Comment on above: Performed By: #### M G, RFP, PTH, FES, CBC, ADIFF, BMP, ANEU, GFR #### [place] [address] FESon 04-30-2025 Iron [Mass/Vol] 107 ug/dL Normal 65-175 [facility] Comment on above: Performed By: #### M G, RFP, PTH, FES, CBC, ADIFF, BMP, ANEU, GFR #### [place] [address] Iron Sat 54 % Normal [facility] Comment on above: Performed By: #### M G, RFP, PTH, FES, CBC, ADIFF, BMP, ANEU, GFR #### [place] [address] TIBC 198 mcg/dL Low 250-500 [facility] Comment on above: Performed By: #### M G, RFP, PTH, FES, CBC, ADIFF, BMP, ANEU, GFR #### [place] [address] LABORATORYOrdered By: SYSTEM SYSTEM on 04-30-2025 Albumin BCP dye [Mass/Vol] 3.1 G/dL Low 3.2 - 4.8 G/dL ADM SS Iron [Mass/Vol] 107 ug/dL Normal 65 - 175 mcg/dL ADM SS Iron binding capacity [Mass/Vol] 198 mcg/dL Low 250 - 500 mcg/dL ADM SS Iron saturation [Mass fraction] 54 % Invalid Interpretation Code ADM SS Parathyrin.intact [Mass/Vol] 63.9 pg/mL Normal 18.5 - 88.0 pg/mL AH ADM SS Phosphate [Mass/Vol] 5.6 mg/dL High 2.4 - 5 .1 mg/dL AH ADM SS MGon 04-30-2025 Magnesium [Mass/Vol] 2.0 mg/dL Normal 1.6-2.4 [facility] Comment on above: Performed By: #### M G, RFP, PTH, FES, CBC, ADIFF, BMP, ANEU, GFR #### [place] [address] PTHon 04-30-2025 PTH, Intact 63.9 pg/mL Normal 18.5-88.0 [facility] Comment on above: Performed By: #### M G, RFP, PTH, FES, CBC, ADIFF, BMP, ANEU, GFR #### [place] [address] RFPon 04-30-2025 Albumin Level 3.1 G/dL Low 3.2-4.8 [facility] Comment on above: Performed By: #### M G, RFP, PTH, FES, CBC, ADIFF, BMP, ANEU, GFR #### [place] [address] Phosphate [Mass/Vol] 5.6 mg/dL High 2.4-5.1 [facility] Comment on above: Performed By: #### M G, RFP, PTH, FES, CBC, ADIFF, BMP, ANEU, GFR #### [place] [address] .Auto Diffon 04-29-2025 Basophil, Absolute 0.0 10 3/mcL Normal 0.0-0.3 [facility] Comment on above: Performed By: #### M G, RFP, PTH, FES, CBC, ADIFF, BMP, ANEU, GFR #### [place] [address] Basophils/100 WBC (Bld) 0.3 % Normal 0.0-2.5 [facility] Comment on above: Performed By: #### M G, RFP, PTH, FES, CBC, ADIFF, BMP, ANEU, GFR #### [address] [address] Eosinophil, Absolute 0.0 10 3/mcL Normal 0.0-0.7 [facility] Comment on above: Performed By: #### M G, RFP, PTH, FES, CBC, ADIFF, BMP, ANEU, GFR #### [address] [address] Eosinophils/100 WBC (Bld) 0.4 % Normal 0.0-6.0 [facility] Comment on above: Performed By: #### M G, RFP, PTH, FES, CBC, ADIFF, BMP, ANEU, GFR #### [address] [address] Lymphocyte, Absolute 0.8 10 3/mcL Low 0.9-4.3 [facility] Comment on above: Performed By: #### M G, RFP, PTH, FES, CBC, ADIFF, BMP, ANEU, GFR #### [address] [address] Lymphocytes/100 WBC (Bld) 15.0 % Low 20.0-40.0 [facility] Comment on above: Performed By: #### M G, RFP, PTH, FES, CBC, ADIFF, BMP, ANEU, GFR #### [address] [address] Monocyte, Absolute 0.3 10 3/mcL Normal 0.1-1.4 [facility] Comment on above: Performed By: #### M G, RFP, PTH, FES, CBC, ADIFF, BMP, ANEU, GFR #### [address] [address] Monocytes/100 WBC (Bld) 6.0 % Normal 2.0-13.0 [facility] Comment on above: Performed By: #### M G, RFP, PTH, FES, CBC, ADIFF, BMP, ANEU, GFR #### [address] [address] Neutrophils/100 WBC (Bld) 78.3 % High 50.0-75.0 [facility] Comment on above: Performed By: #### M G, RFP, PTH, FES, CBC, ADIFF, BMP, ANEU, GFR #### [address] [address] .GFRon 04-29-2025 Estimated Glomerular Filtration Rate 16 ml/min/1.73sqm Normal [facility] Comment on above: Result Comment: Stages of Chronic Kidney Disease (CKD) Stage Description eGFR(ml/min/1.73 sq.m.) CKD 1 Normal kidney function or >=90 normal kindney function with possible kidney damage (ex. Proteinuria) CKD 2 Kidney damage with mild loss 60-89 of kidney function CKD 3a Mild to moderate loss of kidney 45-59 function CKD 3b Moderate to severe loss of 30-44 of kindey function CKD 4 Severe loss of kidney function 15-29 CKD 5 Kidney failure <15 Note: (go live 2024) the eGFR calculation was updated to the 2020 CKD-EPI creatinine equation without a race factor to calculate the eGFR results. Performed By: #### M G, RFP, PTH, FES, CBC, ADIFF, BMP, ANEU, GFR #### [address] [address] .NEUABSon 04-29-2025 Neutrophil, Absolute 4.4 10 3/mcL Normal 2.3-8.1 [facility] Comment on above: Performed By: #### M G, RFP, PTH, FES, CBC, ADIFF, BMP, ANEU, GFR #### [address] [address] BMPon 04-29-2025 BUN/Creatinine Ratio 12.8 ratio Normal 10.0-22.0 [facility] Comment on above: Performed By: #### M G, RFP, PTH, FES, CBC, ADIFF, BMP, ANEU, GFR #### [address] [address] Calcium [Mass/Vol] 9.2 mg/dL Normal 8.7-10.4 [facility] Comment on above: Performed By: #### M G, RFP, PTH, FES, CBC, ADIFF, BMP, ANEU, GFR #### [address] [address] Chloride [Moles/Vol] 109 mmol/L Normal 98-110 [facility] Comment on above: Performed By: #### M G, RFP, PTH, FES, CBC, ADIFF, BMP, ANEU, GFR #### [address] [address] CO2 [Moles/Vol] 22 mmol/L Normal 22-32 [facility] Comment on above: Performed By: #### M G, RFP, PTH, FES, CBC, ADIFF, BMP, ANEU, GFR #### [address] [address] Creatinine [Mass/Vol] 3.91 mg/dL High 0.60-1.40 [facility] Comment on above: Result Comment: Test ing performed on Mocoplex analyzer using enzymatic creatinine methodology. Performed By: #### M G, RFP, PTH, FES, CBC, ADIFF, BMP, ANEU, GFR #### [address] [address] Electrolyte Balance 11.0 mEq/L Normal 4.0-15.0 [facility] Comment on above: Performed By: #### M G, RFP, PTH, FES, CBC, ADIFF, BMP, ANEU, GFR #### [address] [address] Glucose [Mass/Vol] 81 mg/dL Low 82-115 [facility] Comment on above: Performed By: #### M G, RFP, PTH, FES, CBC, ADIFF, BMP, ANEU, GFR #### [address] [address] Potassium [Moles/Vol] 4.9 mmol/L Normal 3.5-5.0 [facility] Comment on above: Performed By: #### M G, RFP, PTH, FES, CBC, ADIFF, BMP, ANEU, GFR #### [address] [address] Sodium [Moles/Vol] 142 mmol/L Normal 136-145 [facility] Comment on above: Performed By: #### M G, RFP, PTH, FES, CBC, ADIFF, BMP, ANEU, GFR #### [address] [address] Urea nitrogen [Mass/Vol] 50.0 mg/dL High 8.0-22.0 [facility] Comment on above: Performed By: #### M G, RFP, PTH, FES, CBC, ADIFF, BMP, ANEU, GFR #### [place] [address] CBCon 04-29-2025 Erythrocyte distribution width (RBC) [Ratio] 15.7 % High 11.5-15.5 [facility] Comment on above: Performed By: #### M G, RFP, PTH, FES, CBC, ADIFF, BMP, ANEU, GFR #### [place] [address] Hematocrit (Bld) [Volume fraction] 32.6 % Low 40.0-52.0 [facility] Comment on above: Performed By: #### M G, RFP, PTH, FES, CBC, ADIFF, BMP, ANEU, GFR #### [place] [address] Hgb 10.9 G/dL Low 13.0-17.5 [facility] Comment on above: Performed By: #### M G, RFP, PTH, FES, CBC, ADIFF, BMP, ANEU, GFR #### [place] [address] MCH (RBC) [Entitic mass] 28.7 pg Normal 27.0-33.0 [facility] Comment on above: Performed By: #### M G, RFP, PTH, FES, CBC, ADIFF, BMP, ANEU, GFR #### [place] [address] MCHC 33.3 G/dL Normal 32.0-36.0 [facility] Comment on above: Performed By: #### M G, RFP, PTH, FES, CBC, ADIFF, BMP, ANEU, GFR #### [place] [address] MCV (RBC) [Entitic vol] 86.1 fL Normal 81.0-100.0 [facility] Comment on above: Performed By: #### M G, RFP, PTH, FES, CBC, ADIFF, BMP, ANEU, GFR #### [place] [id number] [address] [place] [address] Platelet 166 10 3/mcL Normal 150-450 [facility] Comment on above: Performed By: #### M G, RFP, PTH, FES, CBC, ADIFF, BMP, ANEU, GFR #### [place] [id number] [address] [place] [address] Platelet mean volume (Bld) [Entitic vol] 7.0 fL Normal 6.4-10.5 [facility] Comment on above: Performed By: #### M G, RFP, PTH, FES, CBC, ADIFF, BMP, ANEU, GFR #### [place] [address] RBC 3.79 10 6/mcL Low 4.50-6.00 [facility] Comment on above: Performed By: #### M G, RFP, PTH, FES, CBC, ADIFF, BMP, ANEU, GFR #### [place] [address] WBC 5.6 10 3/mcL Normal 4.5-10.8 [facility] Comment on above: Performed By: #### M G, RFP, PTH, FES, CBC, ADIFF, BMP, ANEU, GFR #### [place] [address] LABORATORYOrdered By: Jennifer Aguila on 04-29-2025 Blood Glucose Interventions Administered agent to decrease blood sugar (04/29/25 5:00 PM) [facility] Work Phone: LABORATORYOrdered By: Sumi michaels on 04-29-2025 Creatinine (U) [Mass/Vol] 51.0 mg/dL Invalid Interpretation Code ADM SS Protein (U) [Mass/Vol] 284.7 mg/dL Invalid Interpretation Code ADM SS U Ratio Prot/Creat 5.6 ratio Invalid Interpretation Code Chemistry S LABORATORYOrdered By: Mary Ellen hurley on 04-29-2025 Blood Glucose Interventions Administered food/juice (04/29/25 7:52 AM) [facility] Work Phone: LABORATORYOrdered By: SYSTEM SYSTEM on 04-29-2025 Lactate [Moles/Vol] 0.5 mmol/L Normal 0.5 - 2. 2 mmol/L AH ADM SS Lactate [Moles/Vol] 0.7 mmol/L Normal 0.5 - 2. 2 mmol/L AH ADM SS Lactate [Moles/Vol] 0.5 mmol/L Normal 0.5 - 2. 2 mmol/L AH ADM SS LACon 04-29-2025 Lactic Acid Lvl 0.5 mmol/L Normal 0.5-2.2 [facility] Comment on above: Performed By: #### M G, RFP, PTH, FES, CBC, ADIFF, BMP, ANEU, GFR #### [address] [id number] Lactic Acid Lvl 0.7 mmol/L Normal 0.5-2.2 [facility] Comment on above: Performed By: #### M G, RFP, PTH, FES, CBC, ADIFF, BMP, ANEU, GFR #### [place] [address] Lactic Acid Lvl 0.5 mmol/L Normal 0.5-2.2 [facility] Comment on above: Performed By: #### M G, RFP, PTH, FES, CBC, ADIFF, BMP, ANEU, GFR #### [address] [address] MGon 04-29-2025 Magnesium [Mass/Vol] 1.9 mg/dL Normal 1.6-2.4 [facility] Comment on above: Performed By: #### M G, RFP, PTH, FES, CBC, ADIFF, BMP, ANEU, GFR #### [address] [address] RPCURon 04-29-2025 U Creatinine 51.0 mg/dL Normal [facility] Comment on above: Performed By: #### R PCUR #### [address] [address] U Protein 284.7 mg/dL [facility] Comment on above: Performed By: #### R PCUR #### [place] [id number] U Ratio Prot/Creat 5.[address] [facility] Comment on above: Performed By: #### R PCUR #### [place] [address] US RENALon 04-29-2025 US RENAL ORIGINAL EXAMINATION: LIMITED RETROPERITONEAL ULTRASOUND04/29/2025 3:38 pm TECHNIQUE: Multiple real time sonographic images of the urinary system were obtained assessing chery-scale appearance and color Doppler. Permanently stored images were reviewed. COMPARISON: None HISTORY: ORDERING SYSTEM PROVIDED HISTORY: Reason for Exam: CKD V FINDINGS: RIGHT KIDNEY: Measures 9.4 cm in length. Simple cyst measuring 1.3 cm at the upper pole. No hydronephrosis. Increased echogenicity. LEFT KIDNEY: Measures 9.9 cm in length. Echogenic foci measuring 1.0 cm and 0.4 cm at the midpole and lower pole respectively with twinkle artifact. No hydronephrosis. Increased echogenicity. BLADDER: Partially decompressed, otherwise unremarkable. Prostate: Mildly enlarged measuring 5.0 x 3.5 x 0.2 cm with a total volume of 47 mL. IMPRESSION: No hydronephrosis. Increased echogenicity of the kidneys which can be seen in medical renal disease. Left nonobstructive nephrolithiasis. Prostatomegaly. I have personally reviewed the images of this examination and agree with the resident's findings and interpretation. Interpreted by: Elliot Rosas Preliminary Report By: Robert Mccurdy Electronically signed By Elliot Rosas Dictated Date: 04/29/2025 4:02:55 PM Prelim Date: 04/29/2025 4:23:07 PM Sign Date: 04/29/2025 4:28:39 PM Ordering Provider: ARSEN CURTIS [facility] MAIN XR CHEST 1 VIEWon 04-29-2025 XR CHEST 1 VIEW ORIGINAL EXAMINATION: ONE XRAY VIEW OF THE CHEST 04/28/2025 9:54 pm COMPARISON: None. HISTORY: ORDERING SYSTEM PROVIDED HISTORY: Reason for Exam: Sepsis, evaluate for Pneumonia FINDINGS: The 2 lead left subclavian pacemaker is in place. The heart size is at the upper limits of normal. There is no lung infiltrate or edema. No pneumothorax or pleural fluid is present. There is no acute skeletal abnormality. IMPRESSION: 1. Pacemaker in place. 2. No acute cardiopulmonary findings. Interpreted by: Cornelius Willis MD Preliminary Report By: Cornelius Willis MD Electronically signed By Cornelius Willis MD Dictated Date: 04/29/2025 12:44:29 AM Prelim Date: 04/29/2025 12:45:20 AM Sign Date: 04/29/2025 12:45:20 AM Ordering Provider: YANNICK Garcia [facility] .Auto Diffon 04-28-2025 Basophil, Absolute 0.0 10 3/mcL Normal 0.0-0.3 [facility] Comment on above: Performed By: #### M G, RFP, PTH, FES, CBC, ADIFF, BMP, ANEU, GFR #### [address] [address] Basophils/100 WBC (Bld) 0.5 % Normal 0.0-2.5 [facility] Comment on above: Performed By: #### M G, RFP, PTH, FES, CBC, ADIFF, BMP, ANEU, GFR #### [address] [address] Eosinophil, Absolute 0.0 10 3/mcL Normal 0.0-0.7 [facility] Comment on above: Performed By: #### M G, RFP, PTH, FES, CBC, ADIFF, BMP, ANEU, GFR #### [address] [address] Eosinophils/100 WBC (Bld) 0.5 % Normal 0.0-6.0 [facility] Comment on above: Performed By: #### M G, RFP, PTH, FES, CBC, ADIFF, BMP, ANEU, GFR #### [address] [address] Lymphocyte, Absolute 0.8 10 3/mcL Low 0.9-4.3 [facility] Comment on above: Performed By: #### M G, RFP, PTH, FES, CBC, ADIFF, BMP, ANEU, GFR #### [address] [address] Lymphocytes/100 WBC (Bld) 15.2 % Low 20.0-40.0 [facility] Comment on above: Performed By: #### M G, RFP, PTH, FES, CBC, ADIFF, BMP, ANEU, GFR #### [facility] [address] [place] [address] Monocyte, Absolute 0.3 10 3/mcL Normal 0.1-1.4 [facility] Comment on above: Performed By: #### M G, RFP, PTH, FES, CBC, ADIFF, BMP, ANEU, GFR #### [address] [address] Monocytes/100 WBC (Bld) 5.9 % Normal 2.0-13.0 [facility] MA[facility] Comment on above: Performed By: #### M G, RFP, PTH, FES, CBC, ADIFF, BMP, ANEU, GFR #### [address] [address] Neutrophils/100 WBC (Bld) 77.9 % High 50.0-75.0 [facility] Comment on above: Performed By: #### M G, RFP, PTH, FES, CBC, ADIFF, BMP, ANEU, GFR #### [address] [address] .GFRon 04-28-2025 Estimated Glomerular Filtration Rate 16 ml/min/1.73sqm Normal [facility] Comment on above: Result Comment: Stages of Chronic Kidney Disease (CKD) Stage Description eGFR(ml/min/1.73 sq.m.) CKD 1 Normal kidney function or >=90 normal kindney function with possible kidney damage (ex. Proteinuria) CKD 2 Kidney damage with mild loss 60-89 of kidney function CKD 3a Mild to moderate loss of kidney 45-59 function CKD 3b Moderate to severe loss of 30-44 of kindey function CKD 4 Severe loss of kidney function 15-29 CKD 5 Kidney failure <15 Note: (go live 2024) the eGFR calculation was updated to the 2020 CKD-EPI creatinine equation without a race factor to calculate the eGFR results. Performed By: #### M G, RFP, PTH, FES, CBC, ADIFF, BMP, ANEU, GFR #### [address] [address] .NEUABSon 04-28-2025 Neutrophil, Absolute 4.2 10 3/mcL Normal 2.3-8.1 [facility] MAIN Comment on above: Performed By: #### M G, RFP, PTH, FES, CBC, ADIFF, BMP, ANEU, GFR #### [facility] [address] [place] [address] 12 Lead EKGon 04-28-2025 12 Lead EKG [facility] Cardiovascular Services [address] [place] [address] 12 Lead EKG 04/28/25 1156 MR#: [id number] Acct: [id number] Name: LOU JULIEN Rep #: [id number] : 1955 69 From: Mitch Harris MD Attending Dr: Status: DEP ER Ordering Dr: Ck Diane DO Date: 04/28/25 Location: ED Sex: M C Admitted: Test Reason : O Blood Pressure : */* mmHG Vent. Rate : 61 BPM Atrial Rate : 61 BPM P-R Int : 226 ms QRS Dur : 92 ms QT Int : 438 ms P-R-T Axes : 82 -13 20 degrees QTcB Int : 440 ms Atrial-paced rhythm with prolonged AV conduction Minimal voltage criteria for LVH, may be normal variant ( R in aVL ) Nonspecific ST and T wave abnormality Abnormal ECG Confirmed by STEVEN VILLA, MITCH ([id number]), supervising editor trailer ROCKY LO ([id number]) on 04/29/2025 7:30:27 AM Referred By: Tb Confirmed By: MITCH HARRIS MD 04/29/25 0730 Date Mitch Harris MD CC: Dr. Vera Manrique MD; Dr. Ck Diane DO Signed Normal [facility] Absolute lymphocyte countOrd ered By: Ck Diane on 04-28-2025 Lymphocytes Auto (Unsp spec) [#/Vol] 1.46 10*3/uL 0.83-4.51 [facility] Absolute neutrophil countOrd ered By: Ck Diane on 04-28-2025 Neutrophils (Bld) [#/Vol] 3.9 10*3/uL 2.0-7.7 [facility] Anion gap in Serum or Plasma Ordered By: Ck Diane on 04-28-2025 Anion gap [Moles/Vol] 12 mmol/L 5-15 [facility] Automated lymphocyte count a s percentage of total leukocytesOrdered By: Ck Diane on 04-28-2025 Lymphocytes/100 WBC Auto (Unsp spec) 24.2 % 19-41 [facility] BUN/creatinine ratioOrdered By: Ck Diane on 04-28-2025 Urea nitrogen/Creatinine [Mass ratio] 13.4 mg/mg 10-20 [facility] Basophil percentageOrdered B y: Ck Diane on 04-28-2025 Basophils/100 WBC (Bld) 0.3 % 0-1 [facility] Bilirubin Test strip Ql (U)O rdered By: Ck Diane on 04-28-2025 Bilirubin Ql (U) Negative Negative [facility] Bilirubin, totalOrdered By: Ck Diane on 04-28-2025 Bilirubin [Mass/Vol] 0.48 mg/dL 0.00-1.30 [facility] Brain/Head without Contrasto n 04-28-2025 Brain/Head without Contrast [facility] Imaging Services [address] [place], [place] [address] Brain/Head without Contrast MR#: [id number] Acct: [id number] Name: LOU JULIEN Rep #: [id number] : 1955 M 69 From: Wesley Pierce MD PCP: Dr. Vera Manrique MD Status: REG ER Study: Brain/Head without Contrast Date of Exam: 04/08 10/01 Exam# [id number] Ordering Dr: Leonel Horton DO PROCEDURE: CT BRAIN/HEAD WITHOUT CONTRAST 04/28/2025 REASON FOR EXAM: ?SDH, 6 HOUR STABILITY SCAN TECHNIQUE: Procedure Code: CTBR Modality: CT Procedure: BRAIN/HEAD WITHOUT CONTRAST Coronal and Sagittal reconstruction series were provided. One or more dose reduction techniques were used (e.g., Automated exposure control, adjustment of the mA and/or kV according to patient size, use of iterative reconstruction technique. RADIATION DOSE SUMMARY: CTDlvol: 44.99 mGy DLP: 832.67 mGycm COMPARISON: Earlier same day 04/28/2025, 03/04/2023, 09/30/2022. FINDINGS: Thin bilateral late subacute-chronic subdural hematomas are stable in size/appearance from earlier today, but are a new development since 03/04/2023. No significant mass-effect or midline shift. No new acute or expanding intracranial hemorrhage. No acute appearing territorial infarct. Moderate chronic small-vessel ischemic changes with multiple old lacunar infarcts in the bilateral [place] radiata and basal ganglia. Normal ventricular caliber. Atherosclerotic vascular calcifications. Absent [place] ocular lenses. Intact skull base and calvarium. Well-aerated sinuses and mastoids. CT/Brain/Head without Contrast IMPRESSION: Stable thin late subacute-chronic subdural hematoma collections tracking along the bilateral cerebral convexities. No acute or expanding hemorrhage, or significant mass-effect. Reading Location: [facility] CC: Dr. Vera Manrique MD; Dr. Leonel Horton DO 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: Signed Normal [facility] Brain/Head without Contrast [facility] Imaging Services [address] [place] [id number] Brain/Head without Contrast MR#: [id number] Acct: [id number] Name: LOU JULIEN Rep #: [id number] : 1955 M 69 From: Joseph hernandez MD PCP: Dr. Vera Manrique MD Status: PRE ER Study: Brain/Head without Contrast Date of Exam: 04/08 10/01 Exam# [id number] Ordering Dr: Ck Diane DO PROCEDURE: BRAIN/HEAD WITHOUT CONTRAST 04/28/2025 REASON FOR EXAM: HEADACHE TECHNIQUE: Procedure Code: CTBR Modality: CT Procedure: BRAIN/HEAD WITHOUT CONTRAST Coronal and Sagittal reconstruction series were provided. One or more dose reduction techniques were used (e.g., Automated exposure control, adjustment of the mA and/or kV according to patient size, use of iterative reconstruction technique. RADIATION DOSE SUMMARY: CTDlvol: 44.99 mGy DLP: 812.98 mGycm COMPARISON: March 04, 2023. FINDINGS: Brain: Low density in the periventricular white matter suggests mild chronic small vessel ischemic changes. There are several tiny lacune in the basal ganglia bilaterally most likely chronic in nature. No evidence of edema. CSF Spaces: Mild generalized cerebral atrophy since prior study, there is slight prominence of the CSF spaces surrounding both cerebral hemispheres suggestive of possible old chronic subdural hematomas. No evidence of mass effect. Sinuses/Mastoids: Prominence of the inferior turbinate in the right nasal fossa. Bones: No fracture. CT/Brain/Head without Contrast IMPRESSION: CHRONIC CHANGES. NO ACUTE FINDINGS. Several tiny lacune seen in both basal ganglia suggestive of old lacunar infarcts. Prominence of the CSF spaces overlying both cerebral hemispheres suggestive of possible old small bilateral subdural hematomas. Reading Location: [place] [address] CC: Dr. Vera Manrique MD; Dr. Ck Diane DO 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: Signed Normal [facility] 04-28-2025 Erythrocyte distribution width (RBC) [Ratio] 15.5 % Normal 11.5-15.5 [facility] Comment on above: Performed By: #### M G, RFP, PTH, FES, CBC, ADIFF, BMP, ANEU, GFR #### [address] [address] Hematocrit (Bld) [Volume fraction] 35.5 % Low 40.0-52.0 [facility] Comment on above: Performed By: #### M G, RFP, PTH, FES, CBC, ADIFF, BMP, ANEU, GFR #### [address] [address] Hgb 11.6 G/dL Low 13.0-17.5 [facility] Comment on above: Performed By: #### M G, RFP, PTH, FES, CBC, ADIFF, BMP, ANEU, GFR #### [address] [address] MCH (RBC) [Entitic mass] 28.3 pg Normal 27.0-33.0 [facility] Comment on above: Performed By: #### M G, RFP, PTH, FES, CBC, ADIFF, BMP, ANEU, GFR #### [place] [address] MCHC 32.6 G/dL Normal 32.0-36.0 [facility] Comment on above: Performed By: #### M G, RFP, PTH, FES, CBC, ADIFF, BMP, ANEU, GFR #### [place] [address] MCV (RBC) [Entitic vol] 86.8 fL Normal 81.0-100.0 [facility] Comment on above: Performed By: #### M G, RFP, PTH, FES, CBC, ADIFF, BMP, ANEU, GFR #### [place] [address] Platelet 200 10 3/mcL Normal 150-450 [facility] Comment on above: Performed By: #### M G, RFP, PTH, FES, CBC, ADIFF, BMP, ANEU, GFR #### [place] [address] Platelet mean volume (Bld) [Entitic vol] 7.9 fL Normal 6.4-10.5 [facility] Comment on above: Performed By: #### M G, RFP, PTH, FES, CBC, ADIFF, BMP, ANEU, GFR #### [place] [address] RBC 4.09 10 6/mcL Low 4.50-6.00 [facility] Comment on above: Performed By: #### M G, RFP, PTH, FES, CBC, ADIFF, BMP, ANEU, GFR #### [place] [address] WBC 5.4 10 3/mcL Normal 4.5-10.8 [facility] Comment on above: Performed By: #### M G, RFP, PTH, FES, CBC, ADIFF, BMP, ANEU, GFR #### [place] [address] CBC W/Diff, Automatedon 09-2024 Absolute Lymph 1.46 X10 3/uL Normal 0.83-4.51 [facility] Comment on above: Performed By: #### L 100.0100, L500.4050, L501.2450 #### [facility] [address] [place], [address] Absolute Neut 3.9 X10 3/uL Normal 2.0-7.7 [facility] Comment on above: Performed By: #### L 100.0100, L500.4050, L501.2450 #### [facility] [address] [place], [address] Basophils/100 WBC (Bld) 0.3 % Normal 0-1 [facility] Comment on above: Performed By: #### L 100.0100, L500.4050, L501.2450 #### [facility] [address] [place], [address] Eosinophils/100 WBC (Bld) 1.8 % Normal 0-5 [facility] Comment on above: Performed By: #### L 100.0100, L500.4050, L501.2450 #### [facility] [address] [place], [address] Erythrocyte distribution width (RBC) [Ratio] 14.0 % Normal 11.6-14.6 [facility] Comment on above: Performed By: #### L 100.0100, L500.4050, L501.2450 #### [facility] [address] [place], [address] Hematocrit (Bld) [Volume fraction] 35.2 % Low 40-54 [facility] Comment on above: Performed By: #### L 100.0100, L500.4050, L501.2450 #### [facility] [address] [place], [address] Hemoglobin (Bld) [Mass/Vol] 11.2 g/dL Low 13.0-16.5 [facility] Comment on above: Performed By: #### L 100.0100, L500.4050, L501.2450 #### [facility] [address] [place], [address] IG% 0.500 Normal 0.0-0.9 [facility] Comment on above: Result Comment: IG% - Immature Granulocytes (promyelocytes, myelocytes and metamyelocytes) > 1% indicates that a LEFT SHIFT is Present. Performed By: #### L 100.0100, L500.4050, L501.2450 #### [facility] [address] [place], [address] Lymphocytes/100 WBC (Bld) 24.2 % Normal 19-41 [facility] Comment on above: Performed By: #### L 100.0100, L500.4050, L501.2450 #### [facility] [address] [place], [address] MCH (RBC) [Entitic mass] 28.4 pg Normal 27.0-32.0 [facility] Comment on above: Performed By: #### L 100.0100, L500.4050, L501.2450 #### [facility] [address] [place], [address] MCHC (RBC) [Mass/Vol] 31.8 g/dL Low 32-36 [facility] Comment on above: Performed By: #### L 100.0100, L500.4050, L501.2450 #### [facility] [address] [place], [address] MCV (RBC) [Entitic vol] 89.3 fL Normal 80-94 [facility] Comment on above: Performed By: #### L 100.0100, L500.4050, L501.2450 #### [facility] [address] [place], [address] Monocytes/100 WBC (Bld) 8.9 % Normal 0-10 [facility] Comment on above: Performed By: #### L 100.0100, L500.4050, L501.2450 #### [facility] [address] [place], [address] Neutrophils/100 WBC (Bld) 64.3 % Normal 47-70 [facility] Comment on above: Performed By: #### L 100.0100, L500.4050, L501.2450 #### [facility] [address] [place], [address] Nucleated RBC (Bld) [#/Vol] 0 10*3/uL Normal 0-5 [facility] Comment on above: Performed By: #### L 100.0100, L500.4050, L501.2450 #### [facility] [address] [place], [address] Platelet mean volume (Bld) [Entitic vol] 9.4 fL Normal 6.2-12.0 [facility] Comment on above: Performed By: #### L 100.0100, L500.4050, L501.2450 #### [facility] [address] [place], [address] Platelets (Bld) [#/Vol] 172 10*3/uL Normal 150-450 [facility] Comment on above: Performed By: #### L 100.0100, L500.4050, L501.2450 #### [facility] [address] [place], [address] RBC (Bld) [#/Vol] 3.94 10*6/uL Low 4.6-6.2 [facility] Comment on above: Performed By: #### L 100.0100, L500.4050, L501.2450 #### [facility] [address] [place], [address] RDW SD 46.5 fl High 35.1-43.9 [facility] Comment on above: Performed By: #### L 100.0100, L500.4050, L501.2450 #### [facility] [address] [place], [address] WBC (Bld) [#/Vol] 6.0 10*3/uL Normal 4.4-11.0 [facility] Comment on above: Performed By: #### L 100.0100, L500.4050, L501.2450 #### [facility] [address] [place], [address] CMPon 04-28-2025 Albumin Level 3.4 G/dL Normal 3.2-4.8 [facility] Comment on above: Performed By: #### M G, RFP, PTH, FES, CBC, ADIFF, BMP, ANEU, GFR #### [address] [address] Albumin/Globulin [Mass ratio] 1.3 {ratio} Normal 0.9-1.6 [facility] Comment on above: Performed By: #### M G, RFP, PTH, FES, CBC, ADIFF, BMP, ANEU, GFR #### [address] [address] ALP [Catalytic activity/Vol] 91 U/L Normal 38-126 [facility] Comment on above: Performed By: #### M G, RFP, PTH, FES, CBC, ADIFF, BMP, ANEU, GFR #### [address] [address] ALT [Catalytic activity/Vol] 11 U/L Low 12-55 [facility] Comment on above: Performed By: #### M G, RFP, PTH, FES, CBC, ADIFF, BMP, ANEU, GFR #### [address] [address] AST [Catalytic activity/Vol] 21 U/L Normal 8-34 [facility] Comment on above: Performed By: #### M G, RFP, PTH, FES, CBC, ADIFF, BMP, ANEU, GFR #### [address] [address] Bili Total 0.40 mg/dL Normal 0.20-1.20 [facility] Comment on above: Result Comment: Use of this assay is not recommended for patients undergoing treatment with eltrombopag due to the potential for falsely elevated results. Performed By: #### M G, RFP, PTH, FES, CBC, ADIFF, BMP, ANEU, GFR #### [place] [address] BUN/Creatinine Ratio 10.6 ratio Normal 10.0-22.0 [facility] Comment on above: Performed By: #### M G, RFP, PTH, FES, CBC, ADIFF, BMP, ANEU, GFR #### [place] [id number] Calcium [Mass/Vol] 9.0 mg/dL Normal 8.7-10.4 [facility] Comment on above: Performed By: #### M G, RFP, PTH, FES, CBC, ADIFF, BMP, ANEU, GFR #### [place] [address] Chloride [Moles/Vol] 108 mmol/L Normal 98-110 [facility] Comment on above: Performed By: #### M G, RFP, PTH, FES, CBC, ADIFF, BMP, ANEU, GFR #### [place] [id number] CO2 [Moles/Vol] 20 mmol/L Low 22-32 [facility] Comment on above: Performed By: #### M G, RFP, PTH, FES, CBC, ADIFF, BMP, ANEU, GFR #### [place] [id number] Creatinine [Mass/Vol] 3.88 mg/dL High 0.60-1.40 [facility] Comment on above: Result Comment: Test ing performed on Mocoplex analyzer using enzymatic creatinine methodology. Performed By: #### M G, RFP, PTH, FES, CBC, ADIFF, BMP, ANEU, GFR #### [place] [id number] Electrolyte Balance 15.0 mEq/L Normal 4.0-15.0 [facility] Comment on above: Performed By: #### M G, RFP, PTH, FES, CBC, ADIFF, BMP, ANEU, GFR #### [address] [address] Globulin 2.7 G/dL Normal 2.5-4.2 [facility] Comment on above: Performed By: #### M G, RFP, PTH, FES, CBC, ADIFF, BMP, ANEU, GFR #### [place] [id number] Glucose [Mass/Vol] 86 mg/dL Normal 82-115 [facility] Comment on above: Performed By: #### M G, RFP, PTH, FES, CBC, ADIFF, BMP, ANEU, GFR #### [place] [id number] Potassium [Moles/Vol] 4.9 mmol/L Normal 3.5-5.0 [facility] Comment on above: Result Comment: Spec imen slightly hemolyzed. Performed By: #### M G, RFP, PTH, FES, CBC, ADIFF, BMP, ANEU, GFR #### [place] [id number] Sodium [Moles/Vol] 143 mmol/L Normal 136-145 [facility] Comment on above: Performed By: #### M G, RFP, PTH, FES, CBC, ADIFF, BMP, ANEU, GFR #### [place] [id number] Total Protein 6.1 G/dL Normal 5.7-8.2 [facility] Comment on above: Performed By: #### M G, RFP, PTH, FES, CBC, ADIFF, BMP, ANEU, GFR #### [place] [id number] Urea nitrogen [Mass/Vol] 41.0 mg/dL High 8.0-22.0 [facility] Comment on above: Performed By: #### M G, RFP, PTH, FES, CBC, ADIFF, BMP, ANEU, GFR #### [place] [id number] Carbon dioxide, total [Moles /volume] in Central venous bloodOrdered By: Ck Diane on 04-28-2025 CO2 [Moles/Vol] 19.2 mmol/L Low 21.0-32.0 [facility] Chloride assayOrdered By: Matt Diane on 04-28-2025 Chloride [Moles/Vol] 107 mmol/L 98-108 [facility] Comprehensive Metabolic Prof ilon 04-28-2025 Albumin [Mass/Vol] 3.7 g/dL Normal 3.4-4.8 [facility] Comment on above: Performed By: #### L 100.0100, L500.4050, L501.2450 #### [facility] [address] [place], [address] Albumin/Globulin [Mass ratio] 1.5 {ratio} Normal 0.9-2.4 [facility] Comment on above: Performed By: #### L 100.0100, L500.4050, L501.2450 #### [facility] [address] [place], [address] ALK PHOS 95 U/L Normal 40-129 [facility] Comment on above: Performed By: #### L 100.0100, L500.4050, L501.2450 #### [facility] [address] [place], [address] ALT [Catalytic activity/Vol] 12 U/L Normal <=46 [facility] Comment on above: Performed By: #### L 100.0100, L500.4050, L501.2450 #### [facility] [address] [place], [address] AST [Catalytic activity/Vol] 15 U/L Normal <=37 [facility] Comment on above: Performed By: #### L 100.0100, L500.4050, L501.2450 #### [facility] [address] [place], [address] Bilirubin [Mass/Vol] 0.48 mg/dL Normal 0.00-1.30 [facility] Comment on above: Performed By: #### L 100.0100, L500.4050, L501.2450 #### [facility] [address] [place], [address] BUN/CRE 13.4 RATIO Normal 10-20 [facility] Comment on above: Performed By: #### L 100.0100, L500.4050, L501.2450 #### [facility] [address] [place], [address] Calcium [Mass/Vol] 8.9 mg/dL Normal 7.6-11.0 [facility] Comment on above: Performed By: #### L 100.0100, L500.4050, L501.2450 #### [facility] [address] [place], [address] Chloride [Moles/Vol] 107 mmol/L Normal 98-108 [facility] Comment on above: Performed By: #### L 100.0100, L500.4050, L501.2450 #### [facility] [address] [place], [address] CO2 [Moles/Vol] 19.2 mmol/L Low 21.0-32.0 [facility] Comment on above: Performed By: #### L 100.0100, L500.4050, L501.2450 #### [facility] [address] [place], [address] Creatinine [Mass/Vol] 4.02 mg/dL High 0.70-1.20 [facility] Comment on above: Performed By: #### L 100.0100, L500.4050, L501.2450 #### [facility] [address] [place], [address] ECRCL 17.28 ml/min Low 50-250 [facility] Comment on above: Performed By: #### L 100.0100, L500.4050, L501.2450 #### [facility] [address] [place], [address] GAP 12 Normal 5-15 [facility] Comment on above: Performed By: #### L 100.0100, L500.4050, L501.2450 #### [facility] [address] [place], [address] GFR/1.73 sq M.predicted among non-blacks MDRD (S/P/Bld) [Vol rate/Area] 16 mL/min/{1.73_m2} Low >60 [facility] Comment on above: Result Comment: mL/m in/1.73m2 CKD-EPI Creatinine Equation (2020) Performed By: #### L 100.0100, L500.4050, L501.2450 #### [facility] [address] [place], [address] Globulin (S) [Mass/Vol] 2.6 g/dL Normal 2.2-4.2 [facility] Comment on above: Performed By: #### L 100.0100, L500.4050, L501.2450 #### [facility] [address] [place], [address] Glucose [Mass/Vol] 108 mg/dL High 70-99 [facility] Comment on above: Performed By: #### L 100.0100, L500.4050, L501.2450 #### [facility] [address] [place], [address] Potassium [Moles/Vol] 4.8 mmol/L Normal 3.3-5.1 [facility] Comment on above: Performed By: #### L 100.0100, L500.4050, L501.2450 #### [facility] [address] [place], [address] Sodium [Moles/Vol] 138 mmol/L Normal 133-145 [facility] Comment on above: Performed By: #### L 100.0100, L500.4050, L501.2450 #### [facility] [address] [place], [address] T PROT 6.3 g/dL Normal 5.9-8.4 [facility] Comment on above: Performed By: #### L 100.0100, L500.4050, L501.2450 #### [facility] [address] [place], [address] Urea nitrogen [Mass/Vol] 54 mg/dL High 4-19 [facility] Comment on above: Performed By: #### L 100.0100, L500.4050, L501.2450 #### [facility] [address] [place], [address] Electrocardiogram reportOrde red By: Mitch Harris on 04-28-2025 EKG study [facility] [address] [place] [address] 12 Lead EKG 04/28/25 1156 MR#: [id number] Acct: [id number] Name: LOU JULIEN Rep #:[id number] : 1955 69 From: Mitch Harris MD Attending Dr: Status: DEP E R Ordering Dr: Ck Diane DO Date: Location: ED Sex: M C Admitted: Test Reason : O Blood Pressure : */* mmHG Vent. Rate : 61 BPM Atrial Rate : 61 BPM P-R Int : 226 ms QRS Dur : 92 ms QT Int : 438 ms P-R-T Axes : 82 -13 20 degrees QTcB Int : 440 ms Atrial-paced rhythm with prolonged AV conduction Minimal voltage criteria for LVH, may be normal variant ( R in aVL ) Nonspecific ST and T wave abnormality Abnormal ECG Confirmed by MITCH HARRIS MD ([id number]), supervising editor trailer ROCKY LO ([id number]) on 57:30:27 AM Referred By: Tb Confirmed By: MITCH HARRIS MD 04/29/2530 Date _ Mitch Harris MD CC: Dr. Vera Manrique MD; Dr. Ck Diane DO ~ Signed [facility] Other Phone: Emergency Department Summary on 04-28-2025 Emergency Department Summary [facility] Medical Records Department [address] [place] [address] Emergency Department Summary 04/28/25 MR#: [id number] Acct: [id number] Name: LOU JULIEN Rep #: [id number] : 1955 69 From: Ck Diane DO PCP: Dr. Vera Manrique MD Status:REG ER Location: ED HPI History of Present Illness Chief Complaint: Headache Narrative Narrative: Patient is a 69-year-old male with past medical history of chronic kidney disease, hypercholesteremia, diabetes, paroxysmal SVT, complete heart block, hypertension, sick sinus syndrome, CVA, hyperlipidemia who presents to the emergency department chief complaint of headache not feeling well. He states that over the weekend he started not feeling well and developed a headache that progressively worsened throughout the weekend. He states that he has not been eating or drinking much since Monday as he has not had an appetite. Patient denies any falls or head injuries. Patient states that he took Tylenol earlier today for pain at 10:00 that slightly helped his headache. [facility] Medical History GI bleed due to NSAIDs Anemia Acute on chronic kidney failure Kidney failure Need for home health care Insulin dependent diabetes mellitus Leg cramps History of pain when walking Wears glasses Ambulates with cane High cholesterol Stroke/cerebrovascular accident Syncope Dietary restriction History of edema History of echocardiogram History of stress test Cardiology follow-up encounter Irregular heart beat Former smoker DVT (deep venous thrombosis) Pacemaker Diabetes mellitus Paroxysmal supraventricular tachycardia (06/2017) Complete heart block (02/2019) Essential (primary) hypertension Sick sinus syndrome Sinus pause CVA (cerebral vascular accident) (02/2019) Tachyarrhythmia HLD (hyperlipidemia) Home Medications ???Medication ???Instructions ???Recorded ???Last Taken ???Type atorvastatin 80 mg tablet 80 mg PO DAILY cholesterol 9 04/27/25 History multivitamin (Daily-Yousuf tablet) 1 tab PO DAILY SUPPLEMENT 03/11/22 12/25/23 History clopidogrel 75 mg tablet 75 mg PO DAILY 03/14/23 04/27/25 H istory aspirin 81 mg tablet,delayed 81 mg PO DAILY 04/07/23 04/27/25 H istory release insulin glargine 100 unit/mL (3 20 unit subcut DAILY DIABETES 08/2904/28/25 History mL) subcutaneous pen (Lantus Solostar U-100 Insulin) trazodone 50 mg tablet 50 mg PO QHS 04/07/23 04/27/25 His tory insulin lispro 100 unit/mL 2 unit subcut TID 05/25/23 5 History subcutaneous pen hydralazine 50 mg tablet 150 mg PO DAILY 06/29/23 Unknown H istory amlodipine 10 mg tablet 10 mg PO DAILY 08/21/23 04/27/25 H istory metoprolol succinate 100 mg 100 mg PO QHS 08/21/23 04/27/25 Hi story tablet,extended release 24 hr losartan 25 mg tablet 25 mg PO DAILY 04/28/25 04/27/25 H istory sodium bicarbonate 650 mg tablet 650 mg PO Q8H PRN 04/28/25 5 History tamsulosin 0.4 mg capsule 0.4 mg PO Q24H 04/28/25 04/27/25 H istory Allergy/AdvReac Type Severity Reaction Status Date / Time metformin (From Glucophage) AdvReac Diarrhea Verified 04/28/25 10:45 Family History Mother Cancer Father Heart disease Hypertension Myocardial infarction Surgical History History of hand surgery History of carpal tunnel release History of permanent cardiac pacemaker placement (03/05/19) Social History household members: none Smoking Status: Former smoker Smokeless tobacco user: other alcohol intake: never substance use type: does not use ROS ROS ED ROS Narrative Constitutional: Complains of headache and noted above denies lightheadedness or dizziness Eyes: Denies double vision blurry vision Cardiovascular: Denies chest pain Respiratory: Denies shortness of breath Abdomen: Denies abdominal pain nausea vomiting diarrhea : Denies any urinary symptoms Neurological: Denies any numbness, weakness, tingling Musculoskeletal: Denies back pain Skin: Denies any rashes or lesions EXAM Physical Exam Narrative Exam Narrative: General: Patient lying in bed rest comfortably does not appear to be in acute distress Head: Atraumatic, normocephalic Eyes: PERRL bilaterally, EOMI bilaterally, no conjunctival injection noted Neck: Soft, supple, trachea midline Cardiovascular: Regular rate and rhythm Respiratory: Clear to auscultation bilaterally Abdomen: Soft, nondistended, no tenderness palpation Extremities: +5/5 strength noted in the bilateral lower extremities, radial pulses +2/4 in bilateral extremities Neurological: Patient following commands (more content not included)... Normal [facility] Eosinophil percentageOrdered By: Ck Diane on 04-28-2025 Eosinophils/100 WBC (Bld) 1.8 % 0-5 [facility] Erythrocyte distribution wid th ratioOrdered By: Ck Diane on 04-28-2025 Erythrocyte distribution width (RBC) [Ratio] 14.0 % 11.6-14.6 [facility] Erythrocyte distribution wid th standard deviationOrdered By: Ck Diane on 04-28-2025 Erythrocyte distribution width (RBC) [Ratio] 46.5 fl High 35.1-43.9 [facility] Glomerular filtration rate ( GFR) estimation/1.73 sq m using serum, plasma, or whole bOrdered By: Ck Diane on 04-28-2025 GFR/1.73 sq M.predicted among non-blacks MDRD (S/P/Bld) [Vol rate/Area] 16 mL/min/{1.73_m2} Low >60 [facility] Comment on above: mL/min/1.73m2 CKD-EP I Creatinine Equation (2020) Hematocrit Auto (Bld) [Volum e fraction]Ordered By: Ck Diane on 04-28-2025 Hematocrit (Bld) [Volume fraction] 35.2 % Low 40-54 [facility] Hemoglobin measurementOrdere d By: Ck Diane on 04-28-2025 Hemoglobin (Bld) [Mass/Vol] 11.2 g/dL Low 13.0-16.5 [facility] Immature granulocytes/100 WB C Auto (Bld)Ordered By: Ck Diane on 04-28-2025 Immature granulocytes/100 WBC (Bld) 0.500 % 0.0-0.9 [facility] Comment on above: IG% - Immature Granu locytes (promyelocytes, myelocytes and metamyelocytes) > 1% indicates that a LEFT SHIFT is Present. Ketones Test strip Ql (U)Ord ered By: Ck Diane on 04-28-2025 Ketones Ql (U) Negative Negative [facility] LABORATORYOrdered By: SYSTEM SYSTEM on 04-28-2025 Albumin BCP dye [Mass/Vol] 3.4 G/dL Normal 3.2 - 4.8 G/dL ADM SS Albumin/Globulin [Mass ratio] 1.3 {ratio} Normal 0.9 - 1.6 ratio AH ADM SS ALP [Catalytic activity/Vol] 91 U/L Normal 38 - 126 U/L ADM SS ALT No additional P-5'-P [Catalytic activity/Vol] 11 U/L Low 12 - 55 U/L AH ADM SS AST [Catalytic activity/Vol] 21 U/L Normal 8 - 34 U/L ADM SS Bilirubin [Mass/Vol] 0.40 mg/dL Normal 0.20 - 1.20 mg/dL ADM SS Comment on above: Interpretive Data: U se of this assay is not recommended for patients undergoing treatment with eltrombopag due to the potential for falsely elevated results. Globulin 2.7 G/dL Normal 2.5 - 4.2 G/dL ADM SS Protein [Mass/Vol] 6.1 G/dL Normal 5.7 - 8.2 G/dL AH ADM SS Troponin I.cardiac DL <= 0.01 ng/mL [Mass/Vol] 16 ng/L Normal 0 - 54 ng/L ADM SS Comment on above: Interpretive Data: High Sensitive Troponin I Reference Ranges: Female: 0-34 ng/L Male: 0-54 ng/L Testing performed on [employer] IM analyzer using direct chemiluminescent technology. LACon 04-28-2025 Lactic Acid Lvl 0.7 mmol/L Normal 0.5-2.2 [facility] Comment on above: Performed By: #### M G, RFP, PTH, FES, CBC, ADIFF, BMP, ANEU, GFR #### [facility] [address] [place] [address] Laboratory - Chemistry and C hemistry - challengeOrdered By: Ck Diane on 04-28-2025 AST [Catalytic activity/Vol] 15 U/L <38 [facility] Lipaseon 04-28-2025 Lipase [Catalytic activity/Vol] 22 U/L Normal 13-75 [facility] Comment on above: Result Comment: Ava danielson note: LIPASE revised reference range effective 22. New Lipase methodology. Expected to produce lower values than the previous assay method. NEW Reference Range: 13 - 75 U/L Performed By: #### L 100.0100, L500.4050, L501.2450 #### [facility] [address] [place], [address] Lipase measurementOrdered By : Ck Diane on 04-28-2025 Lipase [Catalytic activity/Vol] 22 U/L 13-75 [facility] Comment on above: Please note:LIPASE r evised reference range effective 22. New Lipase methodology. Expected to produce lower values than the previous assay method. NEW Reference Range: 13 - 75 U/L MCV (mean corpuscular volume ) determinationOrdered By: Ck Diane on 04-28-2025 MCV (RBC) [Entitic vol] 89.3 fL 80-94 [facility] MGon 04-28-2025 Magnesium [Mass/Vol] 1.9 mg/dL Normal 1.6-2.4 [facility] Comment on above: Performed By: #### M G, RFP, PTH, FES, CBC, ADIFF, BMP, ANEU, GFR #### [facility] [address] [place] [address] Mean corpuscular hemoglobin (MCH) determinationOrdered By: Ck Diane on 04-28-2025 MCH (RBC) [Entitic mass] 28.4 pg 27.0-32.0 [facility] Mean corpuscular hemoglobin concentration (MCHC) determinationOrdered By: Ck Diane on 04-28-2025 MCHC (RBC) [Mass/Vol] 31.8 g/dL Low 32-36 [facility] Mean platelet volume determi nationOrdered By: Ck Diane on 04-28-2025 Platelet mean volume (Bld) [Entitic vol] 9.4 fL 6.2-12.0 [facility] Microscopic analysis of urin e for red blood cells (RBC)Ordered By: Ck Diane on 04-28-2025 Microscopic analysis of urine for red blood cells (RBC) 0 SEEN /hpf 0-5 [facility] Monocyte percentageOrdered B y: Ck Diane on 04-28-2025 Monocytes/100 WBC (Bld) 8.9 % 0-10 [facility] Mucus LM Ql (Urine sed)Order ed By: Ck Diane on 04-28-2025 Mucus Ql (Urine sed) 0 SEEN /hpf [facility] Neutrophil percentageOrdered By: Ck Diane on 04-28-2025 Neutrophils/100 WBC (Bld) 64.3 % 47-70 [facility] Nitrite Test strip Ql (U)Ord ered By: Ck Diane on 04-28-2025 Nitrite Ql (U) Negative Negative [facility] Nucleated red blood cell per centageOrdered By: Ck Diane on 04-28-2025 Nucleated RBC/100 WBC (Bld) [Ratio] 0 % 0-5 [facility] Platelet countOrdered By: Matt Diane on 04-28-2025 Platelets (Bld) [#/Vol] 172 10*3/uL 150-450 [facility] Potassium measurement (mass/ volume)Ordered By: Ck Diane on 04-28-2025 Potassium (Unsp spec) [Mass/Vol] 4.8 mmol/L 3.3-5.1 [facility] Protein Test strip Ql (U)Ord ered By: Ck Diane on 04-28-2025 Protein Ql (U) 500 mg/dl High Negative [facility] RBC Auto (Bld) [#/Vol]Ordere d By: Ck Diane on 04-28-2025 RBC (Bld) [#/Vol] 3.94 10*6/uL Low 4.6-6.2 [facility] Serum creatinine measurement (mass/volume)Ordered By: Ck Diane on 04-28-2025 Creatinine [Mass/Vol] 4.02 mg/dL High 0.70-1.20 [facility] Serum globulin measurementOr dered By: Ck Diane on 04-28-2025 Globulin (S) [Mass/Vol] 2.6 g/dL 2.2-4.2 [facility] Serum glucose measurement (m ass/volume)Ordered By: Ck Diane on 04-28-2025 Glucose [Mass/Vol] 108 mg/dL High 70-99 [facility] Serum or plasma alanine casiano otransferase (ALT) measurementOrdered By: Ck Diane on 04-28-2025 ALT [Catalytic activity/Vol] 12 U/L <47 [facility] Serum or plasma albumin harshad urement (mass/volume)Ordered By: Ck Diane on 04-28-2025 Albumin [Mass/Vol] 3.7 g/dL 3.4-4.8 [facility] Serum or plasma albumin/glob ulin mass ratioOrdered By: Ck Diane on 04-28-2025 Albumin/Globulin [Mass ratio] 1.5 {ratio} 0.9-2.4 [facility] Serum or plasma alkaline andrew sphatase measurementOrdered By: Ck Diane on 04-28-2025 ALP [Catalytic activity/Vol] 95 U/L 40-129 [facility] Serum or plasma calcium harshad urement (mass/volume)Ordered By: Ck Diane on 04-28-2025 Calcium [Mass/Vol] 8.9 mg/dL 7.6-11.0 [facility] Serum or plasma urea nitroge n measurement (mass/volume)Ordered By: Ck Diane on 04-28-2025 Urea nitrogen [Mass/Vol] 54 mg/dL High 4-19 [facility] Sodium levelOrdered By: Amelia Diane on 04-28-2025 Sodium [Moles/Vol] 138 mmol/L 133-145 [facility] Squamous epithelial cells de tection in urine sediment by light microscopyOrdered By: Ck Diane on 04-28-2025 Epithelial cells.squamous LM Ql (Urine sed) 0 SEEN /hpf 0-5 [facility] TROPHSon 04-28-2025 High Sensitivity Troponin I 16 ng/L Normal 0-54 [facility] Comment on above: Result Comment: High Sensitive Troponin I Reference Ranges: Female: 0-34 ng/L Male: 0-54 ng/L Testing performed on [employer] IM analyzer using direct chemiluminescent technology. Performed By: #### M G, RFP, PTH, FES, CBC, ADIFF, BMP, ANEU, GFR #### [facility] [address] [place] [address] Total proteinOrdered By: Shalini Diane on 04-28-2025 Protein [Mass/Vol] 6.3 g/dL 5.9-8.4 [facility] Urinalysis, Completeon 04-28 BACTERIA 0 SEEN Normal None Seen [facility] Comment on above: Order Comment: CLEAN CATCH Performed By: #### L 400.0001 #### [facility] [address] [place], [address] EPI,SQUAMOUS 0 SEEN Normal 0-5 [facility] Comment on above: Order Comment: CLEAN CATCH Performed By: #### L 400.0001 #### [facility] [address] [place], [address] Mucus Ql (Urine sed) 0 SEEN Normal [facility] Comment on above: Order Comment: CLEAN CATCH Performed By: #### L 400.0001 #### [facility] [address] [place], [address] RBC 0 SEEN Normal 0-5 [facility] Comment on above: Order Comment: CLEAN CATCH Performed By: #### L 400.0001 #### [facility] [address] [place], [address] WBC 0 SEEN Normal 0-5 [facility] Comment on above: Order Comment: CLEAN CATCH Performed By: #### L 400.0001 #### [facility] [address] [place], [address] Urine clarityOrdered By: Shalini Diane on 04-28-2025 Clarity (U) Clear Clear [facility] Urine color determinationOrd ered By: Ck Diane on 04-28-2025 Color (U) Yellow Yellow [facility] Urine glucose detectionOrder ed By: Ck Diane on 04-28-2025 Glucose Ql (U) 50 mg/dl High Normal [facility] Urine leukocyte esterase det ection by dipstickOrdered By: Ck Diane on 04-28-2025 Leukocyte esterase Test strip Ql (U) Negative Negative [facility] Urine pHOrdered By: Ck prasad on 04-28-2025 pH (U) 7.0 [pH] 5.0 - 8.0 [facility] Urine sediment bacteria coun t by microscopy (number/high power field)Ordered By: Ck Diane on 04-28-2025 Bacteria LM.HPF (Urine sed) [#/Area] 0 /[HPF] None Seen [facility] Urine specific gravity measu rementOrdered By: Ck Diane on 04-28-2025 Specific gravity (U) [Rel density] 1.010 1.002-1.03 0 [facility] Urine urobilinogen measureme ntOrdered By: Ck Diane on 04-28-2025 Urobilinogen Ql (U) Normal mg/dl Normal [facility] White blood cell (WBC) count Ordered By: Ck Diane on 04-28-2025 WBC (Bld) [#/Vol] 6.0 10*3/uL 4.4-11.0 [facility] White blood cell countOrdere d By: Ck Diane on 04-28-2025 White blood cell count 0 SEEN /hpf 0-5 [facility] CBC W Auto Differential pane l (Bld)on 04-22-2025 Basophils (Bld) [#/Vol] 10*3/uL Normal <0.11 [facility] Comment on above: Order Comment: Speci men Type: BLOOD SPECIMENOrdering Facility: [facility] Address: [address] [place] [address] Performed By: #### 5 7021-8 ####[facility] MILLLOPEZWNCLIA [id number] [place] [address] [place] Basophils/100 WBC (Bld) 0.3 % Normal [facility] Comment on above: Order Comment: Speci men Type: BLOOD SPECIMENOrdering Facility: [facility] Address: [address] [place] [address] Performed By: #### 5 7021-8 ####[facility] STEVEWNCLIA [id number] [place] [address] [place] Differential cell count method Nom (Bld) Auto Normal [facility] Comment on above: Order Comment: Speci men Type: BLOOD SPECIMENOrdering Facility: [facility] Address: [address] [place] [address] Performed By: #### 5 7021-8 ####[facility] STEVEALTA VISTAMIRACLELIA [id number] [place] [address] [place] Eosinophils (Bld) [#/Vol] 0.13 10*3/uL Normal <0.46 [facility] Comment on above: Order Comment: Speci men Type: BLOOD SPECIMENOrdering Facility: [facility] Address: [address] [place] [address] Performed By: #### 5 7021-8 ####[facility] STEVEALTA VISTAMIRACLELIA [id number] [place] [address] [place] Eosinophils/100 WBC (Bld) 2.0 % Normal [facility] Comment on above: Order Comment: Speci men Type: BLOOD SPECIMENOrdering Facility: [facility] Address: [address] [place] [address] Performed By: #### 5 7021-8 ####[facility] [id number] [place] [address] [place] Erythrocyte distribution width (RBC) [Ratio] 14.7 % Normal 11.5-15.0 [facility] Comment on above: Order Comment: Speci men Type: BLOOD SPECIMENOrdering Facility: [facility] Address: [address] [place] [address] Performed By: #### 5 7021-8 ####[facility] [id number] [place] [address] [place] Hematocrit (Bld) [Volume fraction] 33.3 % Low 39.0-51.0 [facility] Comment on above: Order Comment: Speci men Type: BLOOD SPECIMENOrdering Facility: [facility] Address: [address] [place] [address] Performed By: #### 5 7021-8 ####[facility] [id number] [place] [address] [place] Hemoglobin (Bld) [Mass/Vol] 10.8 g/dL Low 13.0-17.0 [facility] Comment on above: Order Comment: Speci men Type: BLOOD SPECIMENOrdering Facility: [facility] Address: [address] [place] [address] Performed By: #### 5 7021-8 ####[facility] ERNCL[facility] [id number] [place] [address] [place] Immature granulocytes (Bld) [#/Vol] 0.04 10*3/uL Normal <0.10 [facility] Comment on above: Order Comment: Speci men Type: BLOOD SPECIMENOrdering Facility: [facility] Address: [address] [place] [address] Performed By: #### 5 7021-8 ####[facility] ERNCL[facility] [id number] [place] [address] [place] Immature granulocytes/100 WBC (Bld) 0.6 % Normal [facility] Comment on above: Order Comment: Speci men Type: BLOOD SPECIMENOrdering Facility: [facility] Address: [address] [place] [address] Performed By: #### 5 7021-8 ####[facility] MILLWNCLIA [id number] [place] [address] [place] Lymphocytes (Bld) [#/Vol] 1.33 10*3/uL Normal 1.00-4.00 [facility] Comment on above: Order Comment: Speci men Type: BLOOD SPECIMENOrdering Facility: [facility] Address: [address] [place] [address] Performed By: #### 5 7021-8 ####[facility]ITAL[facility]CLIA [id number] [place] [address] [place] Lymphocytes/100 WBC (Bld) 20.7 % Normal [facility] Comment on above: Order Comment: Speci men Type: BLOOD SPECIMENOrdering Facility: [facility] Address: [address] [place] [address] Performed By: #### 5 7021-8 ####[facility] ERNCLIA [id number] [place] [address] [place] MCH (RBC) [Entitic mass] 28.9 pg Normal 26.0-34.0 [facility] Comment on above: Order Comment: Speci men Type: BLOOD SPECIMENOrdering Facility: [facility] Address: [address] [place] [address] Performed By: #### 5 7021-8 ####[facility] MILLALTA VISTANCLIA [id number] [place] [address] [place] MCHC (RBC) [Mass/Vol] 32.4 g/dL Normal 30.5-36.0 [facility] Comment on above: Order Comment: Speci men Type: BLOOD SPECIMENOrdering Facility: [facility] Address: [address] [place] [address] Performed By: #### 5 7021-8 ####[facility] [id number] [place] [address] [place] MCV (RBC) [Entitic vol] 89.0 fL Normal 80.0-100.0 [facility] Comment on above: Order Comment: Speci men Type: BLOOD SPECIMENOrdering Facility: [facility] Address: [address] [place] [address] Performed By: #### 5 7021-8 ####[facility] [id number] [place] [address] [place] Monocytes (Bld) [#/Vol] 0.52 10*3/uL Normal <0.87 [facility] Comment on above: Order Comment: Speci men Type: BLOOD SPECIMENOrdering Facility: [facility] Address: [address] [place] [address] Performed By: #### 5 7021-8 ####[facility] [id number] [place] [address] [place] Monocytes/100 WBC (Bld) 8.1 % Normal [facility] Comment on above: Order Comment: Speci men Type: BLOOD SPECIMENOrdering Facility: [facility] Address: [address] [place] [address] Performed By: #### 5 7021-8 ####[facility] [id number] [place] [address] [place] Neutrophils (Bld) [#/Vol] 4.38 10*3/uL Normal 1.45-7.50 [facility] Comment on above: Order Comment: Speci men Type: BLOOD SPECIMENOrdering Facility: [facility] Address: [address] [place] [address] Performed By: #### 5 7021-8 ####[facility] [id number] [place] [address] [place] Neutrophils/100 WBC (Bld) 68.3 % Normal [facility] Comment on above: Order Comment: Speci men Type: BLOOD SPECIMENOrdering Facility: [facility] Address: [address] [place] [address] Performed By: #### 5 7021-8 ####[facility] [id number] [place] [address] [place] Nucleated RBC (Bld) [#/Vol] 10*3/uL Normal <0.01 [facility] Comment on above: Order Comment: Speci men Type: BLOOD SPECIMENOrdering Facility: [facility] Address: [address] [place] [address] Performed By: #### 5 7021-8 ####[facility] [id number] [place] [address] [place] Nucleated RBC/100 WBC (Bld) [Ratio] 0.0 /100 WBC Normal [facility] Comment on above: Order Comment: Speci men Type: BLOOD SPECIMENOrdering Facility: [facility] Address: [address] [place] [address] Performed By: #### 5 7021-8 ####[facility] [id number] [place] [address] [place] Platelet mean volume (Bld) [Entitic vol] 9.0 fL Normal 9.0-12.7 [facility] Comment on above: Order Comment: Speci men Type: BLOOD SPECIMENOrdering Facility: [facility] Address: [address] [place] [address] Performed By: #### 5 7021-8 ####[facility] [id number] [place] [address] [place] Platelets (Bld) [#/Vol] 207 10*3/uL Normal 150-400 [facility] Comment on above: Order Comment: Speci men Type: BLOOD SPECIMENOrdering Facility: [facility] Address: [address] [place] [address] Performed By: #### 5 7021-8 ####[facility] STEVEALTA VISTACHRISTINE [id number] [place] [address] [place] RBC (Bld) [#/Vol] 3.74 10*6/uL Low 4.20-6.00 [facility] [place] Comment on above: Order Comment: Speci men Type: BLOOD SPECIMENOrdering Facility: [facility] Address: [address] [place] [address] Performed By: #### 5 7021-8 ####[facility] ERCHRISTINE [id number] [place] [address] [place] WBC (Bld) [#/Vol] 6.42 10*3/uL Normal 3.70-11.00 [facility] [place] Comment on above: Order Comment: Speci men Type: BLOOD SPECIMENOrdering Facility: [facility] Address: [address] [place] [address] Performed By: #### 5 7021-8 ####[facility] ERMIRACLENIKKI [id number] [place] [address] [place] CNOVSPon 04-22-2025 CNOVSP Normal [facility] CBC W Auto Differential pane l (Bld)on 04-15-2025 Basophils (Bld) [#/Vol] 0.03 10*3/uL Normal <0.11 [facility] Comment on above: Order Comment: Speci men Type: BLOOD SPECIMENOrdering Facility: [facility] Address: [address] [place] [address] Performed By: #### 5 7021-8 ####[facility] ERMIRACLELIA [id number] [place] [address] [place] Basophils/100 WBC (Bld) 0.4 % Normal [facility] Comment on above: Order Comment: Speci men Type: BLOOD SPECIMENOrdering Facility: [facility] Address: [address] [place] [address] Performed By: #### 5 7021-8 ####[facility] ERNCLIA [id number] [place] [address] [place] Differential cell count method Nom (Bld) Auto Normal [facility] Comment on above: Order Comment: Speci men Type: BLOOD SPECIMENOrdering Facility: [facility] Address: [address] [place] [address] Performed By: #### 5 7021-8 ####[facility] ERNCLIA [id number] [place] [address] [place] Eosinophils (Bld) [#/Vol] 0.15 10*3/uL Normal <0.46 [facility] Comment on above: Order Comment: Speci men Type: BLOOD SPECIMENOrdering Facility: [facility] Address: [address] [place] [address] Performed By: #### 5 7021-8 ####[facility] ERNCLIA [id number] [place] [address] [place] Eosinophils/100 WBC (Bld) 2.0 % Normal [facility] Comment on above: Order Comment: Speci men Type: BLOOD SPECIMENOrdering Facility: [facility] Address: [address] [place] [address] Performed By: #### 5 7021-8 ####[facility] ERNCLIA [id number] [place] [address] [place] Erythrocyte distribution width (RBC) [Ratio] 14.9 % Normal 11.5-15.0 [facility] Comment on above: Order Comment: Speci men Type: BLOOD SPECIMENOrdering Facility: [facility] Address: [address] [place] [address] Performed By: #### 5 7021-8 ####[facility] ERNCLI [id number] [place] [address] [place] Hematocrit (Bld) [Volume fraction] 34.5 % Low 39.0-51.0 [facility] Comment on above: Order Comment: Speci men Type: BLOOD SPECIMENOrdering Facility: [facility] Address: [address] [place] [address] Performed By: #### 5 7021-8 ####[facility] ERCHRISTINE [id number] [place] [address] [place] Hemoglobin (Bld) [Mass/Vol] 11.2 g/dL Low 13.0-17.0 [facility] Comment on above: Order Comment: Speci men Type: BLOOD SPECIMENOrdering Facility: [facility] Address: [address] [place] [address] Performed By: #### 5 7021-8 ####[facility] ERMIRACLEEstephania [id number] [place] [address] [place] Immature granulocytes (Bld) [#/Vol] 0.06 10*3/uL Normal <0.10 [facility] Comment on above: Order Comment: Speci men Type: BLOOD SPECIMENOrdering Facility: [facility] Address: [address] [place] [address] Performed By: #### 5 7021-8 ####[facility] ERCHRISTINE [id number] [place] [address] [place] Immature granulocytes/100 WBC (Bld) 0.8 % Normal [facility] Comment on above: Order Comment: Speci men Type: BLOOD SPECIMENOrdering Facility: [facility] Address: [address] [place] [address] Performed By: #### 5 7021-8 ####[facility] [id number] [place] [address] [place] Lymphocytes (Bld) [#/Vol] 1.70 10*3/uL Normal 1.00-4.00 [facility] Comment on above: Order Comment: Speci men Type: BLOOD SPECIMENOrdering Facility: [facility] Address: [address] [place] [address] Performed By: #### 5 7021-8 ####[facility] [id number] [place] [address] [place] Lymphocytes/100 WBC (Bld) 23.2 % Normal [facility] Comment on above: Order Comment: Speci men Type: BLOOD SPECIMENOrdering Facility: [facility] Address: [address] [place] [address] Performed By: #### 5 7021-8 ####[facility] [id number] [place] [address] [place] MCH (RBC) [Entitic mass] 28.9 pg Normal 26.0-34.0 [facility] Comment on above: Order Comment: Speci men Type: BLOOD SPECIMENOrdering Facility: [facility] Address: [address] [place] [address] Performed By: #### 5 7021-8 ####[facility] [id number] [place] [address] [place] MCHC (RBC) [Mass/Vol] 32.5 g/dL Normal 30.5-36.0 [facility] Comment on above: Order Comment: Speci men Type: BLOOD SPECIMENOrdering Facility: [facility] Address: [address] [place] [address] Performed By: #### 5 7021-8 ####[facility] ERNCLI [id number] [place] [address] [place] MCV (RBC) [Entitic vol] 88.9 fL Normal 80.0-100.0 [facility] Comment on above: Order Comment: Speci men Type: BLOOD SPECIMENOrdering Facility: [facility] Address: [address] [place] [address] Performed By: #### 5 7021-8 ####[facility] MILLTOWNCLIA [id number] [place] [address] [place] Monocytes (Bld) [#/Vol] 0.56 10*3/uL Normal <0.87 [facility] Comment on above: Order Comment: Speci men Type: BLOOD SPECIMENOrdering Facility: [facility] Address: [address] [place] [address] Performed By: #### 5 7021-8 ####[facility] MILLWNCLIA [id number] [place] [address] [place] Monocytes/100 WBC (Bld) 7.6 % Normal [facility] Comment on above: Order Comment: Speci men Type: BLOOD SPECIMENOrdering Facility: [facility] Address: [address] [place] [address] Performed By: #### 5 7021-8 ####[facility] ERNCLIA [id number] [place] [address] [place] Neutrophils (Bld) [#/Vol] 4.83 10*3/uL Normal 1.45-7.50 [facility] Comment on above: Order Comment: Speci men Type: BLOOD SPECIMENOrdering Facility: [facility] Address: [address] [place] [address] Performed By: #### 5 7021-8 ####[facility] MILLTOWNCLIA [id number] [place] [address] [place] Neutrophils/100 WBC (Bld) 66.0 % Normal [facility] Comment on above: Order Comment: Speci men Type: BLOOD SPECIMENOrdering Facility: [facility] Address: [address] [place] [address] Performed By: #### 5 7021-8 ####[facility] MILLTOWNCLIA [id number] [place] [address] [place] Nucleated RBC (Bld) [#/Vol] 10*3/uL Normal <0.01 [facility] Comment on above: Order Comment: Speci men Type: BLOOD SPECIMENOrdering Facility: [facility] Address: [address] [place] [address] Performed By: #### 5 7021-8 ####[facility] ERMIRACLENIKKI [id number] [place] [address] [place] Nucleated RBC/100 WBC (Bld) [Ratio] 0.0 /100 WBC Normal [facility] Comment on above: Order Comment: Speci men Type: BLOOD SPECIMENOrdering Facility: [facility] Address: [address] [place] [address] Performed By: #### 5 7021-8 ####[facility] ERNCNIKKI [id number] [place] [address] [place] Platelet mean volume (Bld) [Entitic vol] 8.9 fL Low 9.0-12.7 [facility] Comment on above: Order Comment: Speci men Type: BLOOD SPECIMENOrdering Facility: [facility] Address: [address] [place] [address] Performed By: #### 5 7021-8 ####[facility] ERMIRACLELIEstephania [id number] [place] [address] [place] Platelets (Bld) [#/Vol] 229 10*3/uL Normal 150-400 [facility] Comment on above: Order Comment: Speci men Type: BLOOD SPECIMENOrdering Facility: [facility] Address: [address] [place] [address] Performed By: #### 5 7021-8 ####[facility] ERNCLIA [id number] [place] [address] [place] RBC (Bld) [#/Vol] 3.88 10*6/uL Low 4.20-6.00 [facility] [place] Comment on above: Order Comment: Speci men Type: BLOOD SPECIMENOrdering Facility: [facility] Address: [address] [place] [address] Performed By: #### 5 7021-8 ####[facility] [id number] [place] [address] [place] WBC (Bld) [#/Vol] 7.33 10*3/uL Normal 3.70-11.00 [facility] [place] Comment on above: Order Comment: Speci men Type: BLOOD SPECIMENOrdering Facility: [facility] Address: [address] [place] [address] Performed By: #### 5 7021-8 ####[facility] [id number] [place] [address] [place] CBC W Auto Differential pane l (Bld)on 04-08-2025 Basophils (Bld) [#/Vol] 10*3/uL Normal <0.11 [facility] Comment on above: Order Comment: Speci men Type: BLOOD SPECIMENOrdering Facility: [facility] Address: [address] [place] [address] Performed By: #### 5 7021-8 ####[facility] [id number] [place] [address] [place] Basophils/100 WBC (Bld) 0.2 % Normal [facility] Comment on above: Order Comment: Speci men Type: BLOOD SPECIMENOrdering Facility: [facility] Address: [address] [place] [address] Performed By: #### 5 7021-8 ####[facility] [id number] [place] [address] [place] Differential cell count method Nom (Bld) Auto Normal [facility] Comment on above: Order Comment: Speci men Type: BLOOD SPECIMENOrdering Facility: [facility] Address: [address] [place] [address] Performed By: #### 5 7021-8 ####[facility] STEVERICHMOND STATE HOSPITALLIA [id number] [place] [address] [place] Eosinophils (Bld) [#/Vol] 0.08 10*3/uL Normal <0.46 [facility] Comment on above: Order Comment: Speci men Type: BLOOD SPECIMENOrdering Facility: [facility] Address: [address] [place] [address] Performed By: #### 5 7021-8 ####[facility] [id number] [place] [address] [place] Eosinophils/100 WBC (Bld) 1.3 % Normal [facility] Comment on above: Order Comment: Speci men Type: BLOOD SPECIMENOrdering Facility: [facility] Address: [address] [place] [address] Performed By: #### 5 7021-8 ####[facility] [id number] [place] [address] [place] Erythrocyte distribution width (RBC) [Ratio] 14.6 % Normal 11.5-15.0 [facility] Comment on above: Order Comment: Speci men Type: BLOOD SPECIMENOrdering Facility: [facility] Address: [address] [place] [address] Performed By: #### 5 7021-8 ####[facility]ENTERL[facility] [id number] [place] [address] [place] Hematocrit (Bld) [Volume fraction] 30.4 % Low 39.0-51.0 [facility] Comment on above: Order Comment: Speci men Type: BLOOD SPECIMENOrdering Facility: [facility] Address: [address] [place] [address] Performed By: #### 5 7021-8 ####[facility]PITALWNCFRIDAA [id number] [place] [address] [place] Hemoglobin (Bld) [Mass/Vol] 9.8 g/dL Low 13.0-17.0 [facility] Comment on above: Order Comment: Speci men Type: BLOOD SPECIMENOrdering Facility: [facility] Address: [address] [place] [address] Performed By: #### 5 7021-8 ####[facility] [id number] [place] [address] [place] Immature granulocytes (Bld) [#/Vol] 0.08 10*3/uL Normal <0.10 [facility] Comment on above: Order Comment: Speci men Type: BLOOD SPECIMENOrdering Facility: [facility] Address: [address] [place] [address] Performed By: #### 5 7021-8 ####[facility] [id number] [place] [address] [place] Immature granulocytes/100 WBC (Bld) 1.3 % Normal [facility] Comment on above: Order Comment: Speci men Type: BLOOD SPECIMENOrdering Facility: [facility] Address: [address] [place] [address] Performed By: #### 5 7021-8 ####[facility] [id number] [place] [address] [place] Lymphocytes (Bld) [#/Vol] 1.32 10*3/uL Normal 1.00-4.00 [facility] Comment on above: Order Comment: Speci men Type: BLOOD SPECIMENOrdering Facility: [facility] Address: [address] [place] [address] Performed By: #### 5 7021-8 ####[facility] ERNCLI [id number] [place] [address] [place] Lymphocytes/100 WBC (Bld) 20.8 % Normal [facility] Comment on above: Order Comment: Speci men Type: BLOOD SPECIMENOrdering Facility: [facility] Address: [address] [place] [address] Performed By: #### 5 7021-8 ####[facility] [id number] [address] [place] [facility] MCH (RBC) [Entitic mass] 28.8 pg Normal 26.0-34.0 [facility] Comment on above: Order Comment: Speci men Type: BLOOD SPECIMENOrdering Facility: [facility] Address: [address] [place] [address] Performed By: #### 5 7021-8 ####[facility] [id number] [place] [address] [place] MCHC (RBC) [Mass/Vol] 32.2 g/dL Normal 30.5-36.0 [facility] Comment on above: Order Comment: Speci men Type: BLOOD SPECIMENOrdering Facility: [facility] Address: [address] [place] [address] Performed By: #### 5 7021-8 ####[facility] [id number] [place] [address] [place] MCV (RBC) [Entitic vol] 89.4 fL Normal 80.0-100.0 [facility] Comment on above: Order Comment: Speci men Type: BLOOD SPECIMENOrdering Facility: [facility] Address: [address] [place] [address] Performed By: #### 5 7021-8 ####[facility] [id number] [place] [address] [place] Monocytes (Bld) [#/Vol] 0.44 10*3/uL Normal <0.87 [facility] Comment on above: Order Comment: Speci men Type: BLOOD SPECIMENOrdering Facility: [facility] Address: [address] [place] [address] Performed By: #### 5 7021-8 ####[facility] STEVEALTA VISTASTEPHA [id number] [place] [address] [place] Monocytes/100 WBC (Bld) 6.9 % Normal [facility] Comment on above: Order Comment: Speci men Type: BLOOD SPECIMENOrdering Facility: [facility] Address: [address] [place] [address] Performed By: #### 5 7021-8 ####[facility] ERNCFRIDAA [id number] [place] [address] [place] Neutrophils (Bld) [#/Vol] 4.43 10*3/uL Normal 1.45-7.50 [facility] Comment on above: Order Comment: Speci men Type: BLOOD SPECIMENOrdering Facility: [facility] Address: [address] [place] [address] Performed By: #### 5 7021-8 ####[facility] [id number] [place] [address] [place] Neutrophils/100 WBC (Bld) 69.5 % Normal [facility] Comment on above: Order Comment: Speci men Type: BLOOD SPECIMENOrdering Facility: [facility] Address: [address] [place] [address] Performed By: #### 5 7021-8 ####[facility] ERNCLIA [id number] [place] [address] [place] Nucleated RBC (Bld) [#/Vol] 10*3/uL Normal <0.01 [facility] Comment on above: Order Comment: Speci men Type: BLOOD SPECIMENOrdering Facility: [facility] Address: [address] [place] [address] Performed By: #### 5 7021-8 ####[facility] HOSPITALTOWNCLIA [id number] [place] [address] [place] Nucleated RBC/100 WBC (Bld) [Ratio] 0.0 /100 WBC Normal [facility] Comment on above: Order Comment: Speci men Type: BLOOD SPECIMENOrdering Facility: [facility] Address: [address] [place] [address] Performed By: #### 5 7021-8 ####[facility] STEVEDANAY [id number] [place] [address] [place] Platelet mean volume (Bld) [Entitic vol] 8.9 fL Low 9.0-12.7 [facility] Comment on above: Order Comment: Speci men Type: BLOOD SPECIMENOrdering Facility: [facility] Address: [address] [place] [address] Performed By: #### 5 7021-8 ####[facility] ERMIRACLEEstephania [id number] [place] [address] [place] Platelets (Bld) [#/Vol] 206 10*3/uL Normal 150-400 [facility] Comment on above: Order Comment: Speci men Type: BLOOD SPECIMENOrdering Facility: [facility] Address: [address] [place] [address] Performed By: #### 5 7021-8 ####[facility] STEVEALTA VISTASTEPHA [id number] [place] [address] [place] RBC (Bld) [#/Vol] 3.40 10*6/uL Low 4.20-6.00 [facility] [place] Comment on above: Order Comment: Speci men Type: BLOOD SPECIMENOrdering Facility: [facility] Address: [address] [place] [address] Performed By: #### 5 7021-8 ####[facility] ERNCLIA [id number] [place] [address] [place] WBC (Bld) [#/Vol] 6.36 10*3/uL Normal 3.70-11.00 [facility] Comment on above: Order Comment: Speci men Type: BLOOD SPECIMENOrdering Facility: [facility] Address: [address] [place] [address] Performed By: #### 5 7021-8 ####[facility] ERCHRISTINE [id number] [place] [address] [place] CNPNon 04-03-2025 CNPN Normal [facility] CBC W Auto Differential pane l (Bld)on 04-01-2025 Basophils (Bld) [#/Vol] 0.04 10*3/uL Normal <0.11 [facility] Comment on above: Order Comment: Speci men Type: BLOOD SPECIMENOrdering Facility: [facility] Address: [address] [place] [address] Performed By: #### 5 7021-8 ####[facility] [id number] [place] [address] [place] Basophils/100 WBC (Bld) 0.5 % Normal [facility] Comment on above: Order Comment: Speci men Type: BLOOD SPECIMENOrdering Facility: [facility] Address: [address] [place] [address] Performed By: #### 5 7021-8 ####[facility] ERMIRACLEEstephania [id number] [place] [address] [place] Differential cell count method Nom (Bld) Auto Normal [facility] Comment on above: Order Comment: Speci men Type: BLOOD SPECIMENOrdering Facility: [facility] Address: [address] [place] [address] Performed By: #### 5 7021-8 ####[facility]ENTERLIA [id number] [place] [address] [place] Eosinophils (Bld) [#/Vol] 0.17 10*3/uL Normal <0.46 [facility] Comment on above: Order Comment: Speci men Type: BLOOD SPECIMENOrdering Facility: [facility] Address: [address] [place] [address] Performed By: #### 5 7021-8 ####[facility] [id number] [place] [address] [place] Eosinophils/100 WBC (Bld) 2.0 % Normal [facility] Comment on above: Order Comment: Speci men Type: BLOOD SPECIMENOrdering Facility: [facility] Address: [address] [place] [address] Performed By: #### 5 7021-8 ####[facility] [id number] [place] [address] [place] Erythrocyte distribution width (RBC) [Ratio] 13.3 % Normal 11.5-15.0 [facility] Comment on above: Order Comment: Speci men Type: BLOOD SPECIMENOrdering Facility: [facility] Address: [address] [place] [address] Performed By: #### 5 7021-8 ####[facility] [id number] [place] [address] [place] Hematocrit (Bld) [Volume fraction] 29.7 % Low 39.0-51.0 [facility] Comment on above: Order Comment: Speci men Type: BLOOD SPECIMENOrdering Facility: [facility] Address: [address] [place] [address] Performed By: #### 5 7021-8 ####[facility] [id number] [place] [address] [place] Hemoglobin (Bld) [Mass/Vol] 9.7 g/dL Low 13.0-17.0 [facility] Comment on above: Order Comment: Speci men Type: BLOOD SPECIMENOrdering Facility: [facility] Address: [address] [place] [address] Performed By: #### 5 7021-8 ####[facility] MILLTOWNCLIA [id number] [place] [address] [place] Immature granulocytes (Bld) [#/Vol] 0.15 10*3/uL High <0.10 [facility] Comment on above: Order Comment: Speci men Type: BLOOD SPECIMENOrdering Facility: [facility] Address: [address] [place] [address] Performed By: #### 5 7021-8 ####[facility] MILLWNCLIA [id number] [place] [address] [place] Immature granulocytes/100 WBC (Bld) 1.8 % Normal [facility] Comment on above: Order Comment: Speci men Type: BLOOD SPECIMENOrdering Facility: [facility] Address: [address] [place] [address] Performed By: #### 5 7021-8 ####[facility] STEVEWNCLIA [id number] [place] [address] [place] Lymphocytes (Bld) [#/Vol] 1.53 10*3/uL Normal 1.00-4.00 [facility] Comment on above: Order Comment: Speci men Type: BLOOD SPECIMENOrdering Facility: [facility] Address: [address] [place] [address] Performed By: #### 5 7021-8 ####[facility] MILLTOWNCLIA [id number] [place] [address] [place] Lymphocytes/100 WBC (Bld) 17.9 % Normal [facility] Comment on above: Order Comment: Speci men Type: BLOOD SPECIMENOrdering Facility: [facility] Address: [address] [place] [address] Performed By: #### 5 7021-8 ####[facility] MILLTOWNCLIA [id number] [place] [address] [place] MCH (RBC) [Entitic mass] 29.0 pg Normal 26.0-34.0 [facility] Comment on above: Order Comment: Speci men Type: BLOOD SPECIMENOrdering Facility: [facility] Address: [address] [place] [address] Performed By: #### 5 7021-8 ####[facility] [id number] [place] [address] [place] MCHC (RBC) [Mass/Vol] 32.7 g/dL Normal 30.5-36.0 [facility] Comment on above: Order Comment: Speci men Type: BLOOD SPECIMENOrdering Facility: [facility] Address: [address] [place] [address] Performed By: #### 5 7021-8 ####[facility] [id number] [place] [address] [place] MCV (RBC) [Entitic vol] 88.9 fL Normal 80.0-100.0 [facility] Comment on above: Order Comment: Speci men Type: BLOOD SPECIMENOrdering Facility: [facility] Address: [address] [place] [address] Performed By: #### 5 7021-8 ####[facility] ERMIRACLEEstephania [id number] [place] [address] [place] Monocytes (Bld) [#/Vol] 0.51 10*3/uL Normal <0.87 [facility] Comment on above: Order Comment: Speci men Type: BLOOD SPECIMENOrdering Facility: [facility] Address: [address] [place] [address] Performed By: #### 5 7021-8 ####[facility] [id number] [place] [address] [place] Monocytes/100 WBC (Bld) 6.0 % Normal [facility] Comment on above: Order Comment: Speci men Type: BLOOD SPECIMENOrdering Facility: [facility] Address: [address] [place] [address] Performed By: #### 5 7021-8 ####[facility] [id number] [place] [address] [place] Neutrophils (Bld) [#/Vol] 6.13 10*3/uL Normal 1.45-7.50 [facility] Comment on above: Order Comment: Speci men Type: BLOOD SPECIMENOrdering Facility: [facility] Address: [address] [place] [address] Performed By: #### 5 7021-8 ####[facility] [id number] [place] [address] [place] Neutrophils/100 WBC (Bld) 71.8 % Normal [facility] Comment on above: Order Comment: Speci men Type: BLOOD SPECIMENOrdering Facility: [facility] Address: [address] [place] [address] Performed By: #### 5 7021-8 ####[facility] [id number] [place] [address] [place] Nucleated RBC (Bld) [#/Vol] 10*3/uL Normal <0.01 [facility] Comment on above: Order Comment: Speci men Type: BLOOD SPECIMENOrdering Facility: [facility] Address: [address] [place] [address] Performed By: #### 5 7021-8 ####[facility] [id number] [place] [address] [place] Nucleated RBC/100 WBC (Bld) [Ratio] 0.0 /100 WBC Normal [facility] Comment on above: Order Comment: Speci men Type: BLOOD SPECIMENOrdering Facility: [facility] Address: [address] [place] [address] Performed By: #### 5 7021-8 ####[facility] RIVAS [id number] [place] [address] [place] Platelet mean volume (Bld) [Entitic vol] 8.9 fL Low 9.0-12.7 [facility] Comment on above: Order Comment: Speci men Type: BLOOD SPECIMENOrdering Facility: [facility] Address: [address] [place] [address] Performed By: #### 5 7021-8 ####[facility] ERCHRISTINE [id number] [place] [address] [place] Platelets (Bld) [#/Vol] 220 10*3/uL Normal 150-400 [facility] Comment on above: Order Comment: Speci men Type: BLOOD SPECIMENOrdering Facility: [facility] Address: [address] [place] [address] Performed By: #### 5 7021-8 ####[facility] ERSTEPHA [id number] [place] [address] [place] RBC (Bld) [#/Vol] 3.34 10*6/uL Low 4.20-6.00 [facility] Comment on above: Order Comment: Speci men Type: BLOOD SPECIMENOrdering Facility: [facility] Address: [address] [place] [address] Performed By: #### 5 7021-8 ####[facility]ENTERL[facility] [id number] [place] [address] [place] WBC (Bld) [#/Vol] 8.53 10*3/uL Normal 3.70-11.00 [facility] Comment on above: Order Comment: Speci men Type: BLOOD SPECIMENOrdering Facility: [facility] Address: [address] [place] [address] Performed By: #### 5 7021-8 ####[facility] MILLTOWNCLIA [id number] [place] [address] [place] CYSTATIN Con 04-01-2025 Cystatin C [Mass/Vol] 3.62 mg/L High 0.61-0.95 [facility] Comment on above: Order Comment: Speci men Type: BLOOD SPECIMENOrdering Facility: [facility] Address: [address] [place] [address] Performed By: #### 2 276-4, CYSTC ####[place] LABCLIA [id number] [place] [address] [place] CYSTATIN C EGFR 14 mL/min/1.73m??? Low >=60 [facility] Comment on above: Order Comment: Speci men Type: BLOOD SPECIMENOrdering Facility: [facility] Address: [address] [place] [address] Result Comment: María Elena mated Glomerular Filtration Rate (eGFR) is calculated using the 2012 CKD-EPI cystatin C equation. This equation utilizes serum cystatin C, sex, and age as parameters. The cystatin C assay has traceable calibration to the ERM-DA471/IF reference material. Refer to KDIGO guidelines for clinical interpretation. In patients with unstable renal function, e.g. those with acute kidney injury, the eGFR may not accurately reflect actual GFR. Performed By: #### 2 276-4, CYSTC ####[place] LABIA [id number] [place] [address] [place] Ferritin SerPl-mCncon 2024 Ferritin [Mass/Vol] 571.0 ng/mL High 30.3-565.7 [facility] Comment on above: Order Comment: Speci men Type: BLOOD SPECIMENOrdering Facility: [facility] Address: [address] [place] [address] Performed By: #### 2 276-4, CYSTC ####[place] LABCLIA [id number] [address] [place] Prot/Creat Uron 04-01-2025 Protein/Creatinine (U) [Mass ratio] 2.54 mg/mg High <0.15 [facility] Comment on above: Order Comment: Speci men Type: URINE SPECIMENOrdering Facility: [facility] Address: [address] [place] [address] Result Comment: Adul t Proteinuria Categories:<0.15 mg/mg is considered normal to mildly increased0.15 - 0.50 mg/mg is considered moderately increased>0.50 mg/mg is considered severely increasedKDIGO. (2013). KDIGO 2012 Clinical Practice Guideline for the Evaluation and Management of Chronic Kidney Disease. Official Journal of the International Society of Nephrology, 3(1), 1-150. Performed By: #### 2 890-2 ####[place] LAB[facility] [id number] [place] [id number] [place] Protein/Creatinine (U) [Mass ratio]on 04-01-2025 Creatinine (U) [Mass/Vol] 60.6 mg/dL Normal 20.0-300.0 [facility] Comment on above: Order Comment: Speci men Type: URINE SPECIMENOrdering Facility: [facility] Address: [address] [place] [address] Performed By: #### 2 890-2 ####[place] LAB[facility] [id number] [place] [id number] [place] Protein (U) [Mass/Vol] 154 mg/dL High 0-20 [facility] Comment on above: Order Comment: Speci men Type: URINE SPECIMENOrdering Facility: [facility] Address: [address] [place], [place] [address] Performed By: #### 2 890-2 ####[place] LABIA [id number] [address] [address] [place] Renal function 2000 panelon 04-01-2025 Albumin [Mass/Vol] 3.7 g/dL Low 3.9-4.9 [facility] Comment on above: Order Comment: Speci men Type: BLOOD SPECIMENOrdering Facility: [facility] Address: [address] [place] [address] Performed By: #### 2 4362-6 ####[facility] CARLITOSTEPHA [id number] [place] [address] [place] Anion gap [Moles/Vol] 11 mmol/L Normal 8-15 [facility] Comment on above: Order Comment: Speci men Type: BLOOD SPECIMENOrdering Facility: [facility] Address: [address] [place] [address] Performed By: #### 2 4362-6 ####[facility] ERSTEPHA [id number] [place] [address] [place] Calcium [Mass/Vol] 9.0 mg/dL Normal 8.5-10.2 [facility] Comment on above: Order Comment: Speci men Type: BLOOD SPECIMENOrdering Facility: [facility] Address: [address] [place] [address] Performed By: #### 2 4362-6 ####[facility] ERSTEPHA [id number] [place] [address] [place] Chloride [Moles/Vol] 108 mmol/L High 98-107 [facility] Comment on above: Order Comment: Speci men Type: BLOOD SPECIMENOrdering Facility: [facility] Address: [address] [place], [place] [address] Performed By: #### 2 4362-6 ####[facility] ERNCLIA [id number] [place] [address] [place] CO2 [Moles/Vol] 22 mmol/L Normal 22-30 [facility] Comment on above: Order Comment: Speci men Type: BLOOD SPECIMENOrdering Facility: [facility] Address: [address] [place], [place] [address] Performed By: #### 2 4362-6 ####[facility]PITALWNCLIA [id number] [place] [address] [place] Creatinine [Mass/Vol] 4.12 mg/dL High 0.73-1.22 [facility] Comment on above: Order Comment: Pj richard Type: BLOOD SPECIMENOrdering Facility: [facility] Address: [address] [place] [address] Performed By: #### 2 4362-6 ####[facility] ERNCLIA [id number] [place] [address] [place] eGFRcr SerPlBld CKD-EPI 2020 15 mL/min/1.73m??? Low >=60 [facility] Comment on above: Order Comment: Pj richard Type: BLOOD SPECIMENOrdering Facility: [facility] Address: [address] [place] [address] Result Comment: María Elena mated Glomerular Filtration Rate (eGFR) is calculated using the 2020 CKD-EPI creatinine equation. This equation utilizes serum creatinine, sex, and age as parameters. The creatinine assay has traceable calibration to isotope dilution-mass spectrometry. Refer to KDIGO guidelines for clinical interpretation. In patients with unstable renal function, e.g. those with acute kidney injury, the eGFR may not accurately reflect actual GFR. Performed By: #### 2 4362-6 ####[facility] ERNCLIA [id number] [place] [address] [place] Glucose [Mass/Vol] 186 mg/dL High 74-99 [facility] Comment on above: Order Comment: Pj richard Type: BLOOD SPECIMENOrdering Facility: [facility] Address: [address] [place] [address] Result Comment: The [place] Diabetes Association (ADA) provides guidance for cutoff values for fasting glucose and random glucose. The ADA defines fasting as no caloric intake for at least 8 hours. Fasting plasma glucose results between 100 to 125 mg/dL indicate increased risk for diabetes (prediabetes).Fasting plasma glucose results greater than or equal to 126 mg/dL meet the criteria for diagnosis of diabetes. In the absence of unequivocal hyperglycemia, results should be confirmed by repeat testing. In a patient with classic symptoms of hyperglycemia or hyperglycemic crisis, random plasma glucose results greater than or equal to 200 mg/dL meet the criteria for diagnosis of diabetes.Reference: Standards of Medical Care in Diabetes 2016, [place] [employer] Association. Diabetes Care. 2016.39(Suppl 1). Performed By: #### 2 4362-6 ####[facility] ERMIRACLELIEstephania [id number] [place] [address] [place] Phosphate [Mass/Vol] 4.3 mg/dL Normal 2.7-4.8 [facility] Comment on above: Order Comment: Speci men Type: BLOOD SPECIMENOrdering Facility: [facility] Address: [address] [place] [address] Performed By: #### 2 4362-6 ####[facility] ERNCNIKKI [id number] [place] [address] [place] Potassium [Moles/Vol] 5.0 mmol/L Normal 3.7-5.1 [facility] Comment on above: Order Comment: Speci men Type: BLOOD SPECIMENOrdering Facility: [facility] Address: [address] [place] [address] Performed By: #### 2 4362-6 ####[facility]ENTERLIA [id number] [place] [address] [place] Sodium [Moles/Vol] 141 mmol/L Normal 136-144 [facility] Comment on above: Order Comment: Speci men Type: BLOOD SPECIMENOrdering Facility: [facility] Address: [address] [place] [address] Performed By: #### 2 4362-6 ####[facility] ERNCLIA [id number] [place] [address] [place] Urea nitrogen [Mass/Vol] 56 mg/dL High 9-24 [facility] Comment on above: Order Comment: Speci men Type: BLOOD SPECIMENOrdering Facility: [facility] Address: [address] [place] [address] Performed By: #### 2 4362-6 ####[facility]ITAL[facility] [id number] [place] [address] [place] CBC W Auto Differential pane l (Bld)on 03-25-2025 Basophils (Bld) [#/Vol] 10*3/uL Normal <0.11 [facility] Comment on above: Order Comment: Speci men Type: BLOOD SPECIMENOrdering Facility: [facility] Address: [address] [place] [address] Performed By: #### 5 7021-8 ####[facility] [id number] [place] [address] [place] Basophils/100 WBC (Bld) 0.2 % Normal [facility] Comment on above: Order Comment: Speci men Type: BLOOD SPECIMENOrdering Facility: [facility] Address: [address] [place] [address] Performed By: #### 5 7021-8 ####[facility] [id number] [place] [address] [place] Differential cell count method Nom (Bld) Auto Normal [facility] Comment on above: Order Comment: Speci men Type: BLOOD SPECIMENOrdering Facility: [facility] Address: [address] [place] [address] Performed By: #### 5 7021-8 ####[facility]ITAL[facility] [id number] [place] [address] [place] Eosinophils (Bld) [#/Vol] 0.08 10*3/uL Normal <0.46 [facility] Comment on above: Order Comment: Speci men Type: BLOOD SPECIMENOrdering Facility: [facility] Address: [address] [place] [address] Performed By: #### 5 7021-8 ####[facility] STEVEWMIRACLELIA [id number] [place] [address] [place] Eosinophils/100 WBC (Bld) 0.9 % Normal [facility] Comment on above: Order Comment: Speci men Type: BLOOD SPECIMENOrdering Facility: [facility] Address: [address] [place] [address] Performed By: #### 5 7021-8 ####[facility] ERMIRACLELIA [id number] [place] [address] [place] Erythrocyte distribution width (RBC) [Ratio] 12.9 % Normal 11.5-15.0 [facility] Comment on above: Order Comment: Speci men Type: BLOOD SPECIMENOrdering Facility: [facility] Address: [address] [place] [address] Performed By: #### 5 7021-8 ####[facility] CENTERFRIDA [id number] [place] [address] [place] Hematocrit (Bld) [Volume fraction] 29.8 % Low 39.0-51.0 [facility] Comment on above: Order Comment: Speci men Type: BLOOD SPECIMENOrdering Facility: [facility] Address: [address] [place] [address] Performed By: #### 5 7021-8 ####[facility] ERSTEPHA [id number] [place] [address] [place] Hemoglobin (Bld) [Mass/Vol] 9.7 g/dL Low 13.0-17.0 [facility] Comment on above: Order Comment: Speci men Type: BLOOD SPECIMENOrdering Facility: [facility] Address: [address] [place] [address] Performed By: #### 5 7021-8 ####[facility] ERNCLIA [id number] [place] [address] [place] Immature granulocytes (Bld) [#/Vol] 0.08 10*3/uL Normal <0.10 [facility] Comment on above: Order Comment: Speci men Type: BLOOD SPECIMENOrdering Facility: [facility] Address: [address] [place] [address] Performed By: #### 5 7021-8 ####[facility] [id number] [place] [address] [place] Immature granulocytes/100 WBC (Bld) 0.9 % Normal [facility] Comment on above: Order Comment: Speci men Type: BLOOD SPECIMENOrdering Facility: [facility] Address: [address] [place] [address] Performed By: #### 5 7021-8 ####[facility]NCLAKE[facility] [id number] [place] [address] [place] Lymphocytes (Bld) [#/Vol] 1.45 10*3/uL Normal 1.00-4.00 [facility] Comment on above: Order Comment: Speci men Type: BLOOD SPECIMENOrdering Facility: [facility] Address: [address] [place] [address] Performed By: #### 5 7021-8 ####[facility] [id number] [place] [address] [place] Lymphocytes/100 WBC (Bld) 16.9 % Normal [facility] Comment on above: Order Comment: Speci men Type: BLOOD SPECIMENOrdering Facility: [facility] Address: [address] [place] [address] Performed By: #### 5 7021-8 ####[facility] ERNCA [id number] [place] [address] [place] MCH (RBC) [Entitic mass] 28.7 pg Normal 26.0-34.0 [facility] Comment on above: Order Comment: Speci men Type: BLOOD SPECIMENOrdering Facility: [facility] Address: [address] [place] [address] Performed By: #### 5 7021-8 ####[facility] RIVAS [id number] [place] [address] [place] MCHC (RBC) [Mass/Vol] 32.6 g/dL Normal 30.5-36.0 [facility] Comment on above: Order Comment: Speci men Type: BLOOD SPECIMENOrdering Facility: [facility] Address: [address] [place] [address] Performed By: #### 5 7021-8 ####[facility] ERCHRISTINE [id number] [place] [address] [place] MCV (RBC) [Entitic vol] 88.2 fL Normal 80.0-100.0 [facility] Comment on above: Order Comment: Speci men Type: BLOOD SPECIMENOrdering Facility: [facility] Address: [address] [place] [address] Performed By: #### 5 7021-8 ####[facility] ERCHRISTINE [id number] [place] [address] [place] Monocytes (Bld) [#/Vol] 0.44 10*3/uL Normal <0.87 [facility] Comment on above: Order Comment: Speci men Type: BLOOD SPECIMENOrdering Facility: [facility] Address: [address] [place] [address] Performed By: #### 5 7021-8 ####[facility] ERCHRISTINE [id number] [place] [address] [place] Monocytes/100 WBC (Bld) 5.1 % Normal [facility] Comment on above: Order Comment: Speci men Type: BLOOD SPECIMENOrdering Facility: [facility] Address: [address] [place] [address] Performed By: #### 5 7021-8 ####[facility] MILLWNCLIA [id number] [place] [address] [place] Neutrophils (Bld) [#/Vol] 6.53 10*3/uL Normal 1.45-7.50 [facility] Comment on above: Order Comment: Speci men Type: BLOOD SPECIMENOrdering Facility: [facility] Address: [address] [place] [address] Performed By: #### 5 7021-8 ####[facility]ENTERLIA [id number] [place] [address] [place] Neutrophils/100 WBC (Bld) 76.0 % Normal [facility] Comment on above: Order Comment: Speci men Type: BLOOD SPECIMENOrdering Facility: [facility] Address: [address] [place] [address] Performed By: #### 5 7021-8 ####[facility]ENTERLIA [id number] [place] [address] [place] Nucleated RBC (Bld) [#/Vol] 10*3/uL Normal <0.01 [facility] Comment on above: Order Comment: Speci men Type: BLOOD SPECIMENOrdering Facility: [facility] Address: [address] [place] [address] Performed By: #### 5 7021-8 ####[facility]ENTERLIA [id number] [place] [address] [place] Nucleated RBC/100 WBC (Bld) [Ratio] 0.0 /100 WBC Normal [facility] Comment on above: Order Comment: Speci men Type: BLOOD SPECIMENOrdering Facility: [facility] Address: [address] [place] [address] Performed By: #### 5 7021-8 ####[facility] ERNCLIA [id number] [place] [address] [place] Platelet mean volume (Bld) [Entitic vol] 8.7 fL Low 9.0-12.7 [facility] Comment on above: Order Comment: Speci men Type: BLOOD SPECIMENOrdering Facility: [facility] Address: [address] [place] [address] Performed By: #### 5 7021-8 ####[facility] ERNCFRIDAA [id number] [place] [address] [place] Platelets (Bld) [#/Vol] 193 10*3/uL Normal 150-400 [facility] Comment on above: Order Comment: Speci men Type: BLOOD SPECIMENOrdering Facility: [facility] Address: [address] [place] [address] Performed By: #### 5 7021-8 ####[facility] ERNCLAKE[facility] [id number] [place] [address] [place] RBC (Bld) [#/Vol] 3.38 10*6/uL Low 4.20-6.00 [facility] Comment on above: Order Comment: Speci men Type: BLOOD SPECIMENOrdering Facility: [facility] Address: [address] [place] [address] Performed By: #### 5 7021-8 ####[facility] ERNCLIA [id number] [place] [address] [place] WBC (Bld) [#/Vol] 8.60 10*3/uL Normal 3.70-11.00 [facility] Comment on above: Order Comment: Speci men Type: BLOOD SPECIMENOrdering Facility: [facility] Address: [address] [place] [address] Performed By: #### 5 7021-8 ####[facility] ERNCLIA [id number] [place] [address] [place] CNOVSPon 03-25-2025 CNOVSP Normal [facility] Ankle min 3 Viewson 03-19-20 Ankle min 3 Views [facility] Imaging Services [address] [place] [address] Ankle min 3 Views MR#: [id number] Acct: [id number] Name: LOU JULIEN Rep #: [id number] : 1955 M 69 From: Joseph hernandez MD PCP: Dr. Vera Manrique MD Status: REG ER Study: Ankle min 3 Views Date of Exam: 03/19/25 Exam# [id number] Ordering Dr: Leonel Horton DO PROCEDURE: ANKLE MIN 3 VIEWS 03/19/2025 REASON FOR EXAM: PAIN, UNABLE TO BEAR WEIGHT TECHNIQUE: ANKLE MIN 3 VIEWS Laterality: Right ankle COMPARISON: None FINDINGS: Bones: No fracture is seen. Joints: Ankle mortise is symmetrical. Soft tissues: Soft tissue swelling. Other: Calcaneal spurs. RAD/Ankle min 3 Views IMPRESSION: Calcaneal spurs. Soft tissue swelling. No fracture. Reading Location: [id number] CC: Dr. Vera Manrique MD; Dr. Leonel Horton DO 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: Signed Normal [facility] Emergency Department Summary on 03-19-2025 Emergency Department Summary [facility] Medical Records Department [address] [place] [address] Emergency Department Summary 03/19/25 MR#: [id number] Acct: [id number] Name: LOU JULIEN Rep #: [id number] : 1955 69 From: Leonel Horton DO PCP: Dr. Vera Manrique MD Status:REG ER Location: ED HPI History of Present Illness Chief Complaint: Lower Extremity Injury [facility] Medical History GI bleed due to NSAIDs Anemia Acute on chronic kidney failure Kidney failure Need for home health care Insulin dependent diabetes mellitus Leg cramps History of pain when walking Wears glasses Ambulates with cane High cholesterol Stroke/cerebrovascular accident Syncope Dietary restriction History of edema History of echocardiogram History of stress test Cardiology follow-up encounter Irregular heart beat Former smoker DVT (deep venous thrombosis) Pacemaker Diabetes mellitus Paroxysmal supraventricular tachycardia (06/2017) Complete heart block (02/2019) Essential (primary) hypertension Sick sinus syndrome Sinus pause CVA (cerebral vascular accident) (02/2019) Tachyarrhythmia HLD (hyperlipidemia) Home Medications ???Medication ???Instructions ???Recorded ???Last Taken ???Type atorvastatin 80 mg tablet 80 mg PO DAILY cholesterol 9 08/22/23 History multivitamin (Daily-Yousuf tablet) 1 tab PO DAILY SUPPLEMENT 03/11/22 12/25/23 History ascorbic acid (vitamin C) 500 mg 500 mg PO BID 30 days #60 tabs 08/22/23 Rx tablet (Vitamin C) clopidogrel 75 mg tablet 75 mg PO DAILY 03/14/23 08/16/23 H istory aspirin 81 mg tablet,delayed 81 mg PO DAILY 04/07/23 Unknown Hi story release insulin glargine 100 unit/mL (3 20 unit subcut .QAM DIABETES 04/0708/22/23 History mL) subcutaneous pen (Lantus Solostar U-100 Insulin) trazodone 50 mg tablet 50 mg PO QHS 04/07/23 12/24/23 His tory insulin lispro 100 unit/mL 2 unit subcut TID 05/25/23 4 History subcutaneous pen hydralazine 50 mg tablet 50 mg PO DAILY 06/29/23 Unknown Hi story amlodipine 10 mg tablet 10 mg PO DAILY 08/21/23 Unknown Hi story metoprolol succinate 100 mg 100 mg PO QHS 08/21/23 Unknown His tory tablet,extended release 24 hr hydrocodone-acetaminophen 5-325mg 1 tab PO Q6H PRN PRN Pain 3 days 08/15/24 Unknown Rx 5mg-325mg #10 TABLETS cephalexin 500 mg capsule 500 mg PO Q6 #40 CAPSULES 12/23/24 Unknown Rx Allergy/AdvReac Type Severity Reaction Status Date / Time metformin (From Glucophage) AdvReac Diarrhea Verified 03/19/25 12:15 Family History Mother Cancer Father Heart disease Hypertension Myocardial infarction Surgical History History of hand surgery History of carpal tunnel release History of permanent cardiac pacemaker placement (03/05/19) Social History household members: none Smoking Status: Former smoker Smokeless tobacco user: other alcohol intake: never substance use type: does not use EXAM Physical Exam Const Vital Signs: 03/19/25 12:16 Temperature 97.9 F Temperature Source Oral Pulse Rate 70 Respiratory Rate 18 Blood Pressure 135/62 H Blood Pressure Mean 86 Pulse Ox 99 Oxygen Delivery Method Room Air [facility] Narr[place] Medical decision making narrative: HISTORY OF PRESENT ILLNESS: Chief complaint: Right ankle pain 69-year-old male history of constipation, CKD, TIA, sick sinus syndrome status post pacemaker, hypertension, hyperlipidemia presents right ankle pain. No mechanical fall from standing just prior to arrival. No head trauma or loss of consciousness noted. No knee pain or hip pain noted. REVIEW OF SYSTEMS: Pertinent positives: Ankle pain Pertinent negatives: As per HPI PHYSICAL EXAM: Nursing triage notes reviewed, Vital signs reviewed Constitutional: please see mdm Extremities: No edema, TTP over lateral malleolus. Intact pulses (dorsalis pedis, posterior tibial and bilateral lower extremities. Right lower extremity is warm and well-perfused. Compartments are soft. Neuro: Intact sensation L1-S1 dermatomal distributions. Intact 5/5 strength in hip flexion (T12- L3). Knee extension (L2-L4). Ankle dorsiflexion (L4-L5). Ankle plantar flexion (S1). Great toe extension (L5). 2+ patellar and Achilles DTRs. Skin: No rash or lesions noted, no sign of open MEDICAL DECISION MAKING: Chief Complaint: please see HPI MDM Narrative: [The patient was initially hemodynamically stable, afebrile and nontoxic-appearing. Exam with TTP over right lateral malleolus. No obvious signs of open fracture. Right lo (more content not included)... Normal [facility] 25(OH)D3 [facility] 2024 25-hydroxyvitamin D3 [Mass/Vol] 33.7 ng/mL Normal 31.0-80.0 [facility] Comment on above: Order Comment: Speci men Type: BLOOD SPECIMENOrdering Facility: [facility] Address: [address] [place] [address] Result Comment: Clas sification of 25 [place] Vitamin D status:Deficiency/Insufficiency: < or = 30 ng/ml.Sufficiency/Optimal Levels: 31-80 ng/mLToxicity: > 100 ng/mL.Test performed by chemiluminescent immunoassay. Performed By: #### 1 989-3, 65733-3, CYSTC ####[facility] [facility] [id number] [place] [address] [place] CNOVon 03-13-2025 CNOV Normal [facility] CYSTATIN Con 03-13-2025 Cystatin C [Mass/Vol] 3.38 mg/L High 0.61-0.95 [facility] Comment on above: Order Comment: Speci men Type: BLOOD SPECIMENOrdering Facility: [facility] Address: [address] [place] [address] Performed By: #### 1 989-3, 19201-4, CYSTC ####[facility] [id number] [place] [address] [place] CYSTATIN C EGFR 15 mL/min/1.73m??? Low >=60 [facility] Comment on above: Order Comment: Speci men Type: BLOOD SPECIMENOrdering Facility: [facility] Address: [address] [place] [address] Result Comment: María Elena mated Glomerular Filtration Rate (eGFR) is calculated using the 2012 CKD-EPI cystatin C equation. This equation utilizes serum cystatin C, sex, and age as parameters. The cystatin C assay has traceable calibration to the ERM-DA471/IF reference material. Refer to KDIGO guidelines for clinical interpretation. In patients with unstable renal function, e.g. those with acute kidney injury, the eGFR may not accurately reflect actual GFR. Performed By: #### 1 989-3, 70463-6, CYSTC ####[facility] [id number] [place] [id number] [place] PTH-Intact SerPl-mCncon 08-0 7-2025 Parathyrin.intact [Mass/Vol] 53 pg/mL Normal 15-65 [facility] Comment on above: Order Comment: Speci men Type: BLOOD SPECIMENOrdering Facility: [facility] Address: [address] [place] [address] Performed By: #### 2 731-8 ####[place] [facility] [id number] [address] [place] [address] [place] Renal function [address] [place], [place] [address]on 03-13-2025 Albumin [Mass/Vol] 3.9 g/dL Normal 3.9-4.9 [facility] Comment on above: Order Comment: Speci men Type: BLOOD SPECIMENOrdering Facility: [facility] Address: [address] [place] [address] Performed By: #### 1 989-3, 76757-2, CYSTC ####[place] [facility] [id number] [place] [id number] [place] Anion gap [Moles/Vol] 15 mmol/L Normal 8-15 [facility] Comment on above: Order Comment: Speci men Type: BLOOD SPECIMENOrdering Facility: [facility] Address: [address] [place] [address] Performed By: #### 1 989-3, 28097-4, CYSTC ####[place] [facility] [id number] [address] [address] [place] Calcium [Mass/Vol] 8.6 mg/dL Normal 8.5-10.2 [facility] Comment on above: Order Comment: Speci men Type: BLOOD SPECIMENOrdering Facility: [facility] Address: [address] [place] [address] Performed By: #### 1 989-3, 99586-5, CYSTC ####[place] [facility] [id number] [facility] [address] [place] [address] [place] Chloride [Moles/Vol] 105 mmol/L Normal 98-107 [facility] Comment on above: Order Comment: Speci men Type: BLOOD SPECIMENOrdering Facility: [facility] Address: [address] [place] [address] Performed By: #### 1 989-3, 73438-4, CYSTC ####[place] [facility] [id number] [address] [address] [place] CO2 [Moles/Vol] 18 mmol/L Low 22-30 [facility] Comment on above: Order Comment: Speci men Type: BLOOD SPECIMENOrdering Facility: [facility] Address: [address] [place] [address] Performed By: #### 1 989-3, 33902-6, CYSTC ####[facility] [facility] [id number] [place] [id number] [place] Creatinine [Mass/Vol] 4.34 mg/dL High 0.73-1.22 [facility] Comment on above: Order Comment: Speci men Type: BLOOD SPECIMENOrdering Facility: [facility] Address: [address] [place] [address] Performed By: #### 1 989-3, 18460-8, CYSTC ####[place] [facility] [id number] [address] [address] [place] eGFRcr SerPlBld CKD-EPI 2020 14 mL/min/1.73m??? Low >=60 [facility] Comment on above: Order Comment: Speci men Type: BLOOD SPECIMENOrdering Facility: [facility] Address: [address] [place] [address] Result Comment: María Elena mated Glomerular Filtration Rate (eGFR) is calculated using the 2020 CKD-EPI creatinine equation. This equation utilizes serum creatinine, sex, and age as parameters. The creatinine assay has traceable calibration to isotope dilution-mass spectrometry. Refer to KDIGO guidelines for clinical interpretation. In patients with unstable renal function, e.g. those with acute kidney injury, the eGFR may not accurately reflect actual GFR. Performed By: #### 1 989-3, 18795-2, CYSTC ####[facility] [facility] [id number] [place] [id number] [place] Glucose [Mass/Vol] 96 mg/dL Normal 74-99 [facility] Comment on above: Order Comment: Speci men Type: BLOOD SPECIMENOrdering Facility: [facility] Address: [address] [place] [address] Result Comment: The [place] Diabetes Association (ADA) provides guidance for cutoff values for fasting glucose and random glucose. The ADA defines fasting as no caloric intake for at least 8 hours. Fasting plasma glucose results between 100 to 125 mg/dL indicate increased risk for diabetes (prediabetes).Fasting plasma glucose results greater than or equal to 126 mg/dL meet the criteria for diagnosis of diabetes. In the absence of unequivocal hyperglycemia, results should be confirmed by repeat testing. In a patient with classic symptoms of hyperglycemia or hyperglycemic crisis, random plasma glucose results greater than or equal to 200 mg/dL meet the criteria for diagnosis of diabetes.Reference: Standards of Medical Care in Diabetes 2016, [place] Diabetes Association. Diabetes Care. 2016.39(Suppl 1). Performed By: #### 1 989-3, 67923-8, CYSTC ####[facility] [facility] [id number] [place] [id number] [place] Phosphate [Mass/Vol] 4.1 mg/dL Normal 2.7-4.8 [facility] Comment on above: Order Comment: Speci men Type: BLOOD SPECIMENOrdering Facility: [facility] Address: [address] [place] [address] Performed By: #### 1 989-3, 31869-2, CYSTC ####[place] [facility] [id number] [place] [id number] [place] Potassium [Moles/Vol] 5.0 mmol/L Normal 3.7-5.1 [facility] Comment on above: Order Comment: Speci men Type: BLOOD SPECIMENOrdering Facility: [facility] Address: [address] [place] [id number] Performed By: #### 1 989-3, 75042-1, CYSTC ####[place] [facility] [id number] [place] [id number] [place] Sodium [Moles/Vol] 138 mmol/L Normal 136-144 [facility] Comment on above: Order Comment: Speci men Type: BLOOD SPECIMENOrdering Facility: [facility] Address: [address] [place] [address] Performed By: #### 1 989-3, 05809-9, CYSTC ####[place] [facility] [id number] [place] [address] [place] Urea nitrogen [Mass/Vol] 72 mg/dL High 9-24 [facility] Comment on above: Order Comment: Speci men Type: BLOOD SPECIMENOrdering Facility: [facility] Address: [address] [place] [address] Performed By: #### 1 989-3, 14834-4, CYSTC ####[place] [facility] [id number] [place] [id number] [place] CBC W Auto Differential pane l (Bld)on 03-11-2025 Basophils (Bld) [#/Vol] 10*3/uL Normal <0.11 [facility] Comment on above: Order Comment: Speci men Type: BLOOD SPECIMENOrdering Facility: [facility] Address: [address] [place] [address] Performed By: #### 5 7021-8 ####[facility] [id number] [place] [address] [place] Basophils/100 WBC (Bld) 0.3 % Normal [facility]Former[facility] Comment on above: Order Comment: Speci men Type: BLOOD SPECIMENOrdering Facility: [facility] Address: [address] [place] [address] Performed By: #### 5 7021-8 ####[facility] STEVEWNCLIA [id number] [place] [address] [place] Differential cell count method Nom (Bld) Auto Normal [facility] Comment on above: Order Comment: Speci men Type: BLOOD SPECIMENOrdering Facility: [facility] Address: [address] [place] [address] Performed By: #### 5 7021-8 ####[facility] [id number] [place] [address] [place] Eosinophils (Bld) [#/Vol] 0.07 10*3/uL Normal <0.46 [facility] Comment on above: Order Comment: Speci men Type: BLOOD SPECIMENOrdering Facility: [facility] Address: [address] [place] [address] Performed By: #### 5 7021-8 ####[facility] [id number] [place] [address] [place] Eosinophils/100 WBC (Bld) 1.1 % Normal [facility] Comment on above: Order Comment: Speci men Type: BLOOD SPECIMENOrdering Facility: [facility] Address: [address] [place] [address] Performed By: #### 5 7021-8 ####[facility] [id number] [place] [address] [place] Erythrocyte distribution width (RBC) [Ratio] 13.4 % Normal 11.5-15.0 [facility] Comment on above: Order Comment: Speci men Type: BLOOD SPECIMENOrdering Facility: [facility] Address: [address] [place] [address] Performed By: #### 5 7021-8 ####[facility] ERNCLI [id number] [place] [address] [place] Hematocrit (Bld) [Volume fraction] 31.9 % Low 39.0-51.0 [facility] Comment on above: Order Comment: Speci men Type: BLOOD SPECIMENOrdering Facility: [facility] Address: [address] [place] [address] Performed By: #### 5 7021-8 ####[facility] [id number] [place] [address] [place] Hemoglobin (Bld) [Mass/Vol] 10.4 g/dL Low 13.0-17.0 [facility] Comment on above: Order Comment: Speci men Type: BLOOD SPECIMENOrdering Facility: [facility] Address: [address] [place] [address] Performed By: #### 5 7021-8 ####[facility] [id number] [place] [address] [place] Immature granulocytes (Bld) [#/Vol] 10*3/uL Normal <0.10 [facility] Comment on above: Order Comment: Speci men Type: BLOOD SPECIMENOrdering Facility: [facility] Address: [address] [place] [address] Performed By: #### 5 7021-8 ####[facility] [id number] [place] [address] [place] Immature granulocytes/100 WBC (Bld) 0.3 % Normal [facility] Comment on above: Order Comment: Speci men Type: BLOOD SPECIMENOrdering Facility: [facility] Address: [address] [place] [address] Performed By: #### 5 7021-8 ####[facility] [id number] [place] [address] [place] Lymphocytes (Bld) [#/Vol] 1.36 10*3/uL Normal 1.00-4.00 [facility] Comment on above: Order Comment: Speci men Type: BLOOD SPECIMENOrdering Facility: [facility] Address: [address] [place], [place] [address] Performed By: #### 5 7021-8 ####[facility] STEVEMakaylaNCLIA [id number] [address] STATES [facility] Lymphocytes/100 WBC (Bld) 21.3 % Normal [facility] Comment on above: Order Comment: Speci men Type: BLOOD SPECIMENOrdering Facility: [facility] Address: [address] [place] [address] Performed By: #### 5 7021-8 ####[facility] STEVEALTA VISTANCLIA [id number] [place] [address] [place] MCH (RBC) [Entitic mass] 28.6 pg Normal 26.0-34.0 [facility] Comment on above: Order Comment: Speci men Type: BLOOD SPECIMENOrdering Facility: [facility] Address: [address] [place] [address] Performed By: #### 5 7021-8 ####[facility] ERNCLIA [id number] [place] [address] [place] MCHC (RBC) [Mass/Vol] 32.6 g/dL Normal 30.5-36.0 [facility] Comment on above: Order Comment: Speci men Type: BLOOD SPECIMENOrdering Facility: [facility] Address: [address] [place] [address] Performed By: #### 5 7021-8 ####[facility] STEVEALTA VISTANCLIA [id number] [place] [address] [place] MCV (RBC) [Entitic vol] 87.6 fL Normal 80.0-100.0 [facility] Comment on above: Order Comment: Speci men Type: BLOOD SPECIMENOrdering Facility: [facility] Address: [address] [place] [address] Performed By: #### 5 7021-8 ####[facility] ERMALIA [id number] [place] [address] [place] Monocytes (Bld) [#/Vol] 0.39 10*3/uL Normal <0.87 [facility] Comment on above: Order Comment: Speci men Type: BLOOD SPECIMENOrdering Facility: [facility] Address: [address] [place] [address] Performed By: #### 5 7021-8 ####[facility] [id number] [place] [address] [place] Monocytes/100 WBC (Bld) 6.1 % Normal [facility] Comment on above: Order Comment: Speci men Type: BLOOD SPECIMENOrdering Facility: [facility] Address: [address] [place] [address] Performed By: #### 5 7021-8 ####[facility] [id number] [place] [address] [place] Neutrophils (Bld) [#/Vol] 4.52 10*3/uL Normal 1.45-7.50 [facility] Comment on above: Order Comment: Speci men Type: BLOOD SPECIMENOrdering Facility: [facility] Address: [address] [place] [address] Performed By: #### 5 7021-8 ####[facility] [id number] [place] [address] [place] Neutrophils/100 WBC (Bld) 70.9 % Normal [facility] Comment on above: Order Comment: Speci men Type: BLOOD SPECIMENOrdering Facility: [facility] Address: [address] [place] [address] Performed By: #### 5 7021-8 ####[facility] [id number] [place] [address] [place] Nucleated RBC (Bld) [#/Vol] 10*3/uL Normal <0.01 [facility] Comment on above: Order Comment: Speci men Type: BLOOD SPECIMENOrdering Facility: [facility] Address: [address] [place] [address] Performed By: #### 5 7021-8 ####[facility] ERNCL[facility] [id number] [place] [address] [place] Nucleated RBC/100 WBC (Bld) [Ratio] 0.0 /100 WBC Normal [facility] Comment on above: Order Comment: Speci men Type: BLOOD SPECIMENOrdering Facility: [facility] Address: [address] [place] [address] Performed By: #### 5 7021-8 ####[facility] [id number] [place] [address] [place] Platelet mean volume (Bld) [Entitic vol] 8.8 fL Low 9.0-12.7 [facility] Comment on above: Order Comment: Speci men Type: BLOOD SPECIMENOrdering Facility: [facility] Address: [address] [place] [address] Performed By: #### 5 7021-8 ####[facility]NCL[facility] [id number] [place] [address] [place] Platelets (Bld) [#/Vol] 166 10*3/uL Normal 150-400 [facility] Comment on above: Order Comment: Speci men Type: BLOOD SPECIMENOrdering Facility: [facility] Address: [address] [place] [address] Performed By: #### 5 7021-8 ####[facility] [id number] [place] [address] [place] RBC (Bld) [#/Vol] 3.64 10*6/uL Low 4.20-6.00 [facility] Comment on above: Order Comment: Speci men Type: BLOOD SPECIMENOrdering Facility: [facility] Address: [facility] [place] [address] Performed By: #### 5 7021-8 ####[facility] ERSTEPHEstephania [id number] [place] [address] [place] WBC (Bld) [#/Vol] 6.38 10*3/uL Normal 3.70-11.00 [facility] Comment on above: Order Comment: Speci men Type: BLOOD SPECIMENOrdering Facility: [facility] Address: [address] [place] [address] Performed By: #### 5 7021-8 ####[facility] [id number] [place] [address] [place] CNPNon 03-11-2025 CNPN Normal [facility] CNPNon 02-27-2025 CNPN Normal [facility] CBC W Auto Differential pane l (Bld)on 02-25-2025 Basophils (Bld) [#/Vol] 0.03 10*3/uL Normal <0.11 [facility] Comment on above: Order Comment: Speci men Type: BLOOD SPECIMENOrdering Facility: [facility] Address: [address] [place] [address] Performed By: #### 5 7021-8 ####[facility] ERNCL[facility] [id number] [place] [address] [place] Basophils/100 WBC (Bld) 0.4 % Normal [facility] Comment on above: Order Comment: Speci men Type: BLOOD SPECIMENOrdering Facility: [facility] Address: [address] [place] [address] Performed By: #### 5 7021-8 ####[facility] [id number] [place] [address] [place] Differential cell count method Nom (Bld) Auto Normal [facility] Comment on above: Order Comment: Speci men Type: BLOOD SPECIMENOrdering Facility: [facility] Address: [address] [place] [address] Performed By: #### 5 7021-8 ####[facility] [id number] [place] [address] [place] Eosinophils (Bld) [#/Vol] 0.08 10*3/uL Normal <0.46 [facility] Comment on above: Order Comment: Speci men Type: BLOOD SPECIMENOrdering Facility: [facility] Address: [address] [place] [address] Performed By: #### 5 7021-8 ####[facility] [id number] [place] [address] [place] Eosinophils/100 WBC (Bld) 1.0 % Normal [facility] Comment on above: Order Comment: Speci men Type: BLOOD SPECIMENOrdering Facility: [facility] [facility] Address: [address] [place] [address] Performed By: #### 5 7021-8 ####[facility] [id number] [place] [address] [place] Erythrocyte distribution width (RBC) [Ratio] 13.2 % Normal 11.5-15.0 [facility] Comment on above: Order Comment: Speci men Type: BLOOD SPECIMENOrdering Facility: [facility] Address: [address] [place] [address] Performed By: #### 5 7021-8 ####[facility] [id number] [place] [address] [place] Hematocrit (Bld) [Volume fraction] 31.0 % Low 39.0-51.0 [facility] Comment on above: Order Comment: Speci men Type: BLOOD SPECIMENOrdering Facility: [facility] Address: [address] [place] [address] Performed By: #### 5 7021-8 ####[facility] ERNCFRIDAA [id number] [place] [address] [place] Hemoglobin (Bld) [Mass/Vol] 10.1 g/dL Low 13.0-17.0 [facility] Comment on above: Order Comment: Speci men Type: BLOOD SPECIMENOrdering Facility: [facility] Address: [address] [place] [address] Performed By: #### 5 7021-8 ####[facility]ENTERNIKKI [id number] [place] [address] [place] Immature granulocytes (Bld) [#/Vol] 0.11 10*3/uL High <0.10 [facility] Comment on above: Order Comment: Speci men Type: BLOOD SPECIMENOrdering Facility: [facility] Address: [address] [place] [address] Performed By: #### 5 7021-8 ####[facility] [id number] [place] [address] [place] Immature granulocytes/100 WBC (Bld) 1.4 % Normal [facility] Comment on above: Order Comment: Speci men Type: BLOOD SPECIMENOrdering Facility: [facility] Address: [address] [place] [address] Performed By: #### 5 7021-8 ####[facility]ENTERFRIDAA [id number] [place] [address] [place] Lymphocytes (Bld) [#/Vol] 1.82 10*3/uL Normal 1.00-4.00 [facility] Comment on above: Order Comment: Speci men Type: BLOOD SPECIMENOrdering Facility: [facility] Address: [address] [place] [address] Performed By: #### 5 7021-8 ####[facility] ERNCLIA [id number] [place] [address] [place] Lymphocytes/100 WBC (Bld) 23.1 % Normal [facility] Comment on above: Order Comment: Speci men Type: BLOOD SPECIMENOrdering Facility: [facility] Address: [address] [place] [address] Performed By: #### 5 7021-8 ####[facility] [id number] [address] [place] MCH (RBC) [Entitic mass] 28.9 pg Normal 26.0-34.0 [facility] Comment on above: Order Comment: Speci men Type: BLOOD SPECIMENOrdering Facility: [facility] Address: [address] [place] [address] Performed By: #### 5 7021-8 ####[facility] [id number] [place] [address] [place] MCHC (RBC) [Mass/Vol] 32.6 g/dL Normal 30.5-36.0 [facility] Comment on above: Order Comment: Speci men Type: BLOOD SPECIMENOrdering Facility: [facility] Address: [address] [place] [address] Performed By: #### 5 7021-8 ####[facility] [id number] [place] [address] [place] MCV (RBC) [Entitic vol] 88.6 fL Normal 80.0-100.0 [facility] Comment on above: Order Comment: Speci men Type: BLOOD SPECIMENOrdering Facility: [facility] Address: [address] [place] [address] Performed By: #### 5 7021-8 ####[facility]NCLA[facility] [id number] [place] [address] [place] Monocytes (Bld) [#/Vol] 0.48 10*3/uL Normal <0.87 [facility] Comment on above: Order Comment: Speci men Type: BLOOD SPECIMENOrdering Facility: [facility] Address: [address] [place] [address] Performed By: #### 5 7021-8 ####[facility] STEVEWMIRACLELIA [id number] [place] [address] [place] Monocytes/100 WBC (Bld) 6.1 % Normal [facility] Comment on above: Order Comment: Speci men Type: BLOOD SPECIMENOrdering Facility: [facility] Address: [address] [place] [address] Performed By: #### 5 7021-8 ####[facility] ERMIRACLELIA [id number] [place] [address] [place] Neutrophils (Bld) [#/Vol] 5.36 10*3/uL Normal 1.45-7.50 [facility] Comment on above: Order Comment: Speci men Type: BLOOD SPECIMENOrdering Facility: [facility] Address: [address] [place] [address] Performed By: #### 5 7021-8 ####[facility] [id number] [place] [address] [place] Neutrophils/100 WBC (Bld) 68.0 % Normal [facility] Comment on above: Order Comment: Speci men Type: BLOOD SPECIMENOrdering Facility: [facility] Address: [address] [place] [address] Performed By: #### 5 7021-8 ####[facility] ERNCLIA [id number] [place] [address] [place] Nucleated RBC (Bld) [#/Vol] 10*3/uL Normal <0.01 [facility] Comment on above: Order Comment: Speci men Type: BLOOD SPECIMENOrdering Facility: [facility] Address: [address] [place] [address] Performed By: #### 5 7021-8 ####[facility] HOSPITALWNCLIA [id number] [place] [address] [place] Nucleated RBC/100 WBC (Bld) [Ratio] 0.0 /100 WBC Normal [facility] Comment on above: Order Comment: Speci men Type: BLOOD SPECIMENOrdering Facility: [facility] Address: [address] [place] [address] Performed By: #### 5 7021-8 ####[facility] STEVEDANAY [id number] [place] [address] [place] Platelet mean volume (Bld) [Entitic vol] 9.1 fL Normal 9.0-12.7 [facility] Comment on above: Order Comment: Speci men Type: BLOOD SPECIMENOrdering Facility: [facility] Address: [address] [place] [address] Performed By: #### 5 7021-8 ####[facility] ERMIRACLEA [id number] [place] [address] [place] Platelets (Bld) [#/Vol] 212 10*3/uL Normal 150-400 [facility] Comment on above: Order Comment: Speci men Type: BLOOD SPECIMENOrdering Facility: [facility] Address: [address] [place] [address] Performed By: #### 5 7021-8 ####[facility] ERMIRACLELIA [id number] [place] [address] [place] RBC (Bld) [#/Vol] 3.50 10*6/uL Low 4.20-6.00 [facility] Comment on above: Order Comment: Speci men Type: BLOOD SPECIMENOrdering Facility: [facility] Address: [address] [place] [address] Performed By: #### 5 7021-8 ####[facility] ERNCLIA [id number] [place] [address] [place] WBC (Bld) [#/Vol] 7.88 10*3/uL Normal 3.70-11.00 [facility] Comment on above: Order Comment: Speci men Type: BLOOD SPECIMENOrdering Facility: [facility] Address: [address] [place] [address] Performed By: #### 5 7021-8 ####[facility] ERCHRISTINE [id number] [place] [address] [place] CNOVSPon 02-25-2025 CNOVSP Normal [facility] CBC W Auto Differential pane l (Bld)on 02-18-2025 Basophils (Bld) [#/Vol] 10*3/uL Normal <0.11 [facility] Comment on above: Order Comment: Speci men Type: BLOOD SPECIMENOrdering Facility: [facility] Address: [address] [place] [address] Performed By: #### 5 7021-8 ####[facility] [id number] [place] [address] [place] Basophils/100 WBC (Bld) 0.2 % Normal [facility] Comment on above: Order Comment: Speci men Type: BLOOD SPECIMENOrdering Facility: [facility] Address: [address] [place] [address] Performed By: #### 5 7021-8 ####[facility] ERMIRACLEEstephania [id number] [place] [address] [place] Differential cell count method Nom (Bld) Auto Normal [facility] Comment on above: Order Comment: Speci men Type: BLOOD SPECIMENOrdering Facility: [facility] Address: [address] [place] [address] Performed By: #### 5 7021-8 ####[facility] [id number] [place] [address] [place] Eosinophils (Bld) [#/Vol] 0.09 10*3/uL Normal <0.46 [facility] Comment on above: Order Comment: Speci men Type: BLOOD SPECIMENOrdering Facility: [facility] Address: [address] [place] [address] Performed By: #### 5 7021-8 ####[facility] ERNCLI [id number] [place] [address] [place] Eosinophils/100 WBC (Bld) 1.4 % Normal [facility] Comment on above: Order Comment: Speci men Type: BLOOD SPECIMENOrdering Facility: [facility] Address: [address] [place] [address] Performed By: #### 5 7021-8 ####[facility] ERNCLI [id number] [place] [address] [place] Erythrocyte distribution width (RBC) [Ratio] 12.7 % Normal 11.5-15.0 [facility] Comment on above: Order Comment: Speci men Type: BLOOD SPECIMENOrdering Facility: [facility] Address: [address] [place] [address] Performed By: #### 5 7021-8 ####[facility] ERNCLIA [id number] [place] [address] [place] Hematocrit (Bld) [Volume fraction] 29.2 % Low 39.0-51.0 [facility] Comment on above: Order Comment: Speci men Type: BLOOD SPECIMENOrdering Facility: [facility] Address: [address] [place] [address] Performed By: #### 5 7021-8 ####[facility] [id number] [place] [address] [place] Hemoglobin (Bld) [Mass/Vol] 9.7 g/dL Low 13.0-17.0 [facility] Comment on above: Order Comment: Speci men Type: BLOOD SPECIMENOrdering Facility: [facility] Address: [address] [place] [address] Performed By: #### 5 7021-8 ####[facility] MILLLOPEZWNCLIA [id number] [place] [address] [place] Immature granulocytes (Bld) [#/Vol] 0.03 10*3/uL Normal <0.10 [facility] Comment on above: Order Comment: Speci men Type: BLOOD SPECIMENOrdering Facility: [facility] Address: [address] [place] [address] Performed By: #### 5 7021-8 ####[facility] MILLWNCLIA [id number] [place] [address] [place] Immature granulocytes/100 WBC (Bld) 0.5 % Normal [facility] Comment on above: Order Comment: Speci men Type: BLOOD SPECIMENOrdering Facility: [facility] Address: [address] [place] [address] Performed By: #### 5 7021-8 ####[facility] STEVEWNCLIA [id number] [place] [address] [place] Lymphocytes (Bld) [#/Vol] 1.42 10*3/uL Normal 1.00-4.00 [facility] Comment on above: Order Comment: Speci men Type: BLOOD SPECIMENOrdering Facility: [facility] Address: [address] [place] [address] Performed By: #### 5 7021-8 ####[facility] MILLTOWNCLIA [id number] [place] [address] [place] Lymphocytes/100 WBC (Bld) 22.4 % Normal [facility] Comment on above: Order Comment: Speci men Type: BLOOD SPECIMENOrdering Facility: [facility] Address: [address] [place] [address] Performed By: #### 5 7021-8 ####[facility] MILLWNCLIA [id number] [place] [address] [place] MCH (RBC) [Entitic mass] 28.8 pg Normal 26.0-34.0 [facility] Comment on above: Order Comment: Speci men Type: BLOOD SPECIMENOrdering Facility: [facility] Address: [address] [place] [address] Performed By: #### 5 7021-8 ####[facility] [id number] [place] [address] [place] MCHC (RBC) [Mass/Vol] 33.2 g/dL Normal 30.5-36.0 [facility] Comment on above: Order Comment: Speci men Type: BLOOD SPECIMENOrdering Facility: [facility] Address: [address] [place] [address] Performed By: #### 5 7021-8 ####[facility] [id number] [place] [address] [place] MCV (RBC) [Entitic vol] 86.6 fL Normal 80.0-100.0 [facility] Comment on above: Order Comment: Speci men Type: BLOOD SPECIMENOrdering Facility: [facility] Address: [address] [place] [address] Performed By: #### 5 7021-8 ####[facility] [id number] [place] [address] [place] Monocytes (Bld) [#/Vol] 0.32 10*3/uL Normal <0.87 [facility] Comment on above: Order Comment: Speci men Type: BLOOD SPECIMENOrdering Facility: [facility] Address: [address] [place] [address] Performed By: #### 5 7021-8 ####[facility] [id number] [place] [address] [place] Monocytes/100 WBC (Bld) 5.0 % Normal [facility] Comment on above: Order Comment: Speci men Type: BLOOD SPECIMENOrdering Facility: [facility] Address: [address] [place] [address] Performed By: #### 5 7021-8 ####[facility]ITALA [id number] [place] [address] [place] Neutrophils (Bld) [#/Vol] 4.47 10*3/uL Normal 1.45-7.50 [facility] Comment on above: Order Comment: Speci men Type: BLOOD SPECIMENOrdering Facility: [facility] Address: [address] [place] [address] Performed By: #### 5 7021-8 ####[facility] [id number] [place] [address] [place] Neutrophils/100 WBC (Bld) 70.5 % Normal [facility] Comment on above: Order Comment: Speci men Type: BLOOD SPECIMENOrdering Facility: [facility] Address: [address] [place] [address] Performed By: #### 5 7021-8 ####[facility] [id number] [place] [address] [place] Nucleated RBC (Bld) [#/Vol] 10*3/uL Normal <0.01 [facility] Comment on above: Order Comment: Speci men Type: BLOOD SPECIMENOrdering Facility: [facility] Address: [address] [place] [address] Performed By: #### 5 7021-8 ####[facility] [id number] [place] [address] [place] Nucleated RBC/100 WBC (Bld) [Ratio] 0.0 /100 WBC Normal [facility] Comment on above: Order Comment: Speci men Type: BLOOD SPECIMENOrdering Facility: [facility] Address: [address] [place], [place] [address] Performed By: #### 5 7021-8 ####[facility] CARLITONCNIKKI [id number] [place] [address] [place] Platelet mean volume (Bld) [Entitic vol] 9.9 fL Normal 9.0-12.7 [facility] Comment on above: Order Comment: Speci men Type: BLOOD SPECIMENOrdering Facility: [facility] Address: [address] [place] [address] Performed By: #### 5 7021-8 ####[facility] ERCHRITSINE [id number] [place] [address] [place] Platelets (Bld) [#/Vol] 173 10*3/uL Normal 150-400 [facility] Comment on above: Order Comment: Speci men Type: BLOOD SPECIMENOrdering Facility: [facility] Address: [address] [place] [address] Performed By: #### 5 7021-8 ####[facility] ERNCFRIDAA [id number] [place] [address] [place] RBC (Bld) [#/Vol] 3.37 10*6/uL Low 4.20-6.00 [facility] Comment on above: Order Comment: Speci men Type: BLOOD SPECIMENOrdering Facility: [facility] Address: [address] [place] [address] Performed By: #### 5 7021-8 ####[facility] ERNCLIA [id number] [place] [address] [place] WBC (Bld) [#/Vol] 6.34 10*3/uL Normal 3.70-11.00 [facility] Comment on above: Order Comment: Speci men Type: BLOOD SPECIMENOrdering Facility: [facility] Address: [address] [place] [address] Performed By: #### 5 7021-8 ####[facility] HOSPITALWMALIA [id number] [place] [address] [place] Iron and Iron binding capaci ty panelon 02-18-2025 Iron [Mass/Vol] 97 ug/dL Normal 41-186 [facility] Comment on above: Order Comment: Speci men Type: BLOOD SPECIMENOrdering Facility: [facility] Address: [address] [place] [address] Performed By: #### 5 0190-8 ####[facility] HOSPITALIA [id number] [place] [address] [place] Iron binding capacity [Mass/Vol] 202 ug/dL Low 232-386 [facility] Comment on above: Order Comment: Speci men Type: BLOOD SPECIMENOrdering Facility: [facility] Address: [address] [place] [address] Performed By: #### 5 0190-8 ####[facility] [id number] [place] [address] [place] Iron/TIBC [Molar ratio] 48.0 % Normal 15.0-57.0 [facility] Comment on above: Order Comment: Speci men Type: BLOOD SPECIMENOrdering Facility: [facility] Address: [address] [place] [address] Performed By: #### 5 0190-8 ####[facility] [id number] [place] [address] [place] CBC W Auto Differential pane l (Bld)on 02-11-2025 Basophils (Bld) [#/Vol] 10*3/uL Normal <0.11 [facility] Comment on above: Order Comment: Speci men Type: BLOOD SPECIMENOrdering Facility: [facility] Address: [address] [place] [address] Performed By: #### 5 7021-8 ####[facility] HOSPITALWMALIA [id number] [place] [address] [place] Basophils/100 WBC (Bld) 0.3 % Normal [facility] Comment on above: Order Comment: Speci men Type: BLOOD SPECIMENOrdering Facility: [facility] Address: [address] [place] [address] Performed By: #### 5 7021-8 ####[facility]ITALA [id number] [place] [address] [place] Differential cell count method Nom (Bld) Auto Normal [facility] Comment on above: Order Comment: Speci men Type: BLOOD SPECIMENOrdering Facility: [facility] Address: [address] [place] [address] Performed By: #### 5 7021-8 ####[facility] [id number] [place] [address] [place] Eosinophils (Bld) [#/Vol] 0.16 10*3/uL Normal <0.46 [facility] Comment on above: Order Comment: Speci men Type: BLOOD SPECIMENOrdering Facility: [facility] Address: [address] [place] [address] Performed By: #### 5 7021-8 ####[facility]ITALA [id number] [place] [address] [place] Eosinophils/100 WBC (Bld) 2.4 % Normal [facility] Comment on above: Order Comment: Speci men Type: BLOOD SPECIMENOrdering Facility: [facility] Address: [address] [place] [address] Performed By: #### 5 7021-8 ####[facility]ITAL[facility] [id number] [place] [address] [place] Erythrocyte distribution width (RBC) [Ratio] 12.7 % Normal 11.5-15.0 [facility] Comment on above: Order Comment: Speci men Type: BLOOD SPECIMENOrdering Facility: [facility] Address: [address] [place] [address] Performed By: #### 5 7021-8 ####[facility] STEVEALTA [facility]AMIRACLELA[facility] [id number] [place] [address] [place] Hematocrit (Bld) [Volume fraction] 32.2 % Low 39.0-51.0 [facility] Comment on above: Order Comment: Speci men Type: BLOOD SPECIMENOrdering Facility: [facility] Address: [address] [place] [address] Performed By: #### 5 7021-8 ####[facility] [id number] [place] [address] [place] Hemoglobin (Bld) [Mass/Vol] 10.6 g/dL Low 13.0-17.0 [facility] Comment on above: Order Comment: Speci men Type: BLOOD SPECIMENOrdering Facility: [facility] Address: [address] [place] [address] Performed By: #### 5 7021-8 ####[facility] [id number] [place] [address] [place] Immature granulocytes (Bld) [#/Vol] 0.03 10*3/uL Normal <0.10 [facility] Comment on above: Order Comment: Speci men Type: BLOOD SPECIMENOrdering Facility: [facility] Address: [address] [place] [address] Performed By: #### 5 7021-8 ####[facility] [id number] [place] [address] [place] Immature granulocytes/100 WBC (Bld) 0.5 % Normal [facility] Comment on above: Order Comment: Speci men Type: BLOOD SPECIMENOrdering Facility: [facility] Address: [address] [place] [address] Performed By: #### 5 7021-8 ####[facility] MILLWNCLIA [id number] [place] [address] [place] Lymphocytes (Bld) [#/Vol] 1.46 10*3/uL Normal 1.00-4.00 [facility] Comment on above: Order Comment: Speci men Type: BLOOD SPECIMENOrdering Facility: [facility] Address: [address] [place] [address] Performed By: #### 5 7021-8 ####[facility]ENTER[facility] [id number] [place] [address] [place] Lymphocytes/100 WBC (Bld) 22.3 % Normal [facility] Comment on above: Order Comment: Speci men Type: BLOOD SPECIMENOrdering Facility: [facility] Address: [address] [place] [address] Performed By: #### 5 7021-8 ####[facility] [id number] [place] [address] [place] MCH (RBC) [Entitic mass] 28.7 pg Normal 26.0-34.0 [facility] Comment on above: Order Comment: Speci men Type: BLOOD SPECIMENOrdering Facility: [facility] Address: [address] [place] [address] Performed By: #### 5 7021-8 ####[facility]ENTERL[facility] [id number] [place] [address] [place] MCHC (RBC) [Mass/Vol] 32.9 g/dL Normal 30.5-36.0 [facility] Comment on above: Order Comment: Speci men Type: BLOOD SPECIMENOrdering Facility: [facility] Address: [address] [place] [address] Performed By: #### 5 7021-8 ####[facility] ERNCLIA [id number] [place] [address] [place] MCV (RBC) [Entitic vol] 87.3 fL Normal 80.0-100.0 [facility] Comment on above: Order Comment: Speci men Type: BLOOD SPECIMENOrdering Facility: [facility] Address: [address] [place] [address] Performed By: #### 5 7021-8 ####[facility] [id number] [place] [address] [place] Monocytes (Bld) [#/Vol] 0.38 10*3/uL Normal <0.87 [facility] Comment on above: Order Comment: Speci men Type: BLOOD SPECIMENOrdering Facility: [facility] Address: [address] [place] [address] Performed By: #### 5 7021-8 ####[facility] [id number] [place] [address] [place] Monocytes/100 WBC (Bld) 5.8 % Normal [facility] Comment on above: Order Comment: Speci men Type: BLOOD SPECIMENOrdering Facility: [facility] Address: [address] [place] [address] Performed By: #### 5 7021-8 ####[facility] [id number] [place] [address] [place] Neutrophils (Bld) [#/Vol] 4.49 10*3/uL Normal 1.45-7.50 [facility] Comment on above: Order Comment: Speci men Type: BLOOD SPECIMENOrdering Facility: [facility] Address: [address] [place] [address] Performed By: #### 5 7021-8 ####[facility] [id number] [place] [address] [place] Neutrophils/100 WBC (Bld) 68.7 % Normal [facility] Comment on above: Order Comment: Speci men Type: BLOOD SPECIMENOrdering Facility: [facility] Address: [address] [place] [address] Performed By: #### 5 7021-8 ####[facility] [facility] STEVEDANAY [id number] [place] [address] [place] Nucleated RBC (Bld) [#/Vol] 10*3/uL Normal <0.01 [facility] Comment on above: Order Comment: Speci men Type: BLOOD SPECIMENOrdering Facility: [facility] Address: [address] [place] [address] Performed By: #### 5 7021-8 ####[facility] [id number] [place] [address] [place] Nucleated RBC/100 WBC (Bld) [Ratio] 0.0 /100 WBC Normal [facility] Comment on above: Order Comment: Speci men Type: BLOOD SPECIMENOrdering Facility: [facility] Address: [address] [place] [address] Performed By: #### 5 7021-8 ####[facility] ERNCA [id number] [place] [address] [place] Platelet mean volume (Bld) [Entitic vol] 9.5 fL Normal 9.0-12.7 [facility] Comment on above: Order Comment: Speci men Type: BLOOD SPECIMENOrdering Facility: [facility] Address: [address] [place] [address] Performed By: #### 5 7021-8 ####[facility] ERNCLIA [id number] [place] [address] [place] Platelets (Bld) [#/Vol] 192 10*3/uL Normal 150-400 [facility] Comment on above: Order Comment: Speci men Type: BLOOD SPECIMENOrdering Facility: [facility] Address: [address] [place] [address] Performed By: #### 5 7021-8 ####[facility] STEVETOWNCLIA [id number] [place] [address] [place] RBC (Bld) [#/Vol] 3.69 10*6/uL Low 4.20-6.00 [facility] [place] Comment on above: Order Comment: Speci men Type: BLOOD SPECIMENOrdering Facility: [facility] Address: [address] [place] [address] Performed By: #### 5 7021-8 ####[facility] ERNCLIA [id number] [place] [address] [place] WBC (Bld) [#/Vol] 6.54 10*3/uL Normal 3.70-11.00 [facility] [place] Comment on above: Order Comment: Speci men Type: BLOOD SPECIMENOrdering Facility: [facility] Address: [address] [place] [address] Performed By: #### 5 7021-8 ####[facility] ERNCLIA [id number] [place] [address] [place] CBC W Auto Differential pane l (Bld)on 02-04-2025 Basophils (Bld) [#/Vol] 10*3/uL Normal <0.11 [facility] Comment on above: Order Comment: Speci men Type: BLOOD SPECIMENOrdering Facility: [facility] Address: [address] [place] [address] Performed By: #### 5 7021-8 ####[facility]ITALWNCLIA [id number] [place] [address] [place] Basophils/100 WBC (Bld) 0.3 % Normal [facility] Comment on above: Order Comment: Speci men Type: BLOOD SPECIMENOrdering Facility: [facility] Address: [address] [place] [address] Performed By: #### 5 7021-8 ####[facility] ERMIRACLELIA [id number] [place] [address] [place] Differential cell count method Nom (Bld) Auto Normal [facility] Comment on above: Order Comment: Speci men Type: BLOOD SPECIMENOrdering Facility: [facility] Address: [address] [place] [address] Performed By: #### 5 7021-8 ####[facility] [id number] [place] [address] [place] Eosinophils (Bld) [#/Vol] 0.12 10*3/uL Normal <0.46 [facility] Comment on above: Order Comment: Speci men Type: BLOOD SPECIMENOrdering Facility: [facility] Address: [address] [place] [address] Performed By: #### 5 7021-8 ####[facility] [id number] [place] [address] [place] Eosinophils/100 WBC (Bld) 1.9 % Normal [facility] Comment on above: Order Comment: Speci men Type: BLOOD SPECIMENOrdering Facility: [facility] Address: [address] [place] [address] Performed By: #### 5 7021-8 ####[facility] [id number] [place] [address] [place] Erythrocyte distribution width (RBC) [Ratio] 13.2 % Normal 11.5-15.0 [facility] Comment on above: Order Comment: Speci men Type: BLOOD SPECIMENOrdering Facility: [facility] Address: [address] [place] [address] Performed By: #### 5 7021-8 ####[facility] [id number] [place] [address] [place] Hematocrit (Bld) [Volume fraction] 33.4 % Low 39.0-51.0 [facility] Comment on above: Order Comment: Speci men Type: BLOOD SPECIMENOrdering Facility: [facility] Address: [address] [place] [address] Performed By: #### 5 7021-8 ####[facility] STEVEMakaylaNCNIKKI [id number] [place] [address] [place] Hemoglobin (Bld) [Mass/Vol] 11.1 g/dL Low 13.0-17.0 [facility] Comment on above: Order Comment: Speci men Type: BLOOD SPECIMENOrdering Facility: [facility] Address: [address] [place] [address] Performed By: #### 5 7021-8 ####[facility] ERNCA [id number] [place] [address] [place] Immature granulocytes (Bld) [#/Vol] 10*3/uL Normal <0.10 [facility] Comment on above: Order Comment: Speci men Type: BLOOD SPECIMENOrdering Facility: [facility] Address: [address] [place] [address] Performed By: #### 5 7021-8 ####[facility] ERNCLIA [id number] [place] [address] [place] Immature granulocytes/100 WBC (Bld) 0.3 % Normal [facility] Comment on above: Order Comment: Speci men Type: BLOOD SPECIMENOrdering Facility: [facility] Address: [address] [place] [address] Performed By: #### 5 7021-8 ####[facility] ERNCLIA [id number] [place] [address] [place] Lymphocytes (Bld) [#/Vol] 1.50 10*3/uL Normal 1.00-4.00 [facility] Comment on above: Order Comment: Speci men Type: BLOOD SPECIMENOrdering Facility: [facility] Address: [address] [place], [place] [address] Performed By: #### 5 7021-8 ####[facility] ERNCLIA [id number] [place] [address] [place] Lymphocytes/100 WBC (Bld) 24.2 % Normal [facility] Comment on above: Order Comment: Speci men Type: BLOOD SPECIMENOrdering Facility: [facility] Address: [address] [place] [address] Performed By: #### 5 7021-8 ####[facility] ERNCLIA [id number] [place] [address] [place] MCH (RBC) [Entitic mass] 29.6 pg Normal 26.0-34.0 [facility] Comment on above: Order Comment: Speci men Type: BLOOD SPECIMENOrdering Facility: [facility] Address: [address] [place] [address] Performed By: #### 5 7021-8 ####[facility]ENTERLIA [id number] [place] [address] [place] MCHC (RBC) [Mass/Vol] 33.2 g/dL Normal 30.5-36.0 [facility] Comment on above: Order Comment: Speci men Type: BLOOD SPECIMENOrdering Facility: [facility] Address: [address] [place] [address] Performed By: #### 5 7021-8 ####[facility] ERNCLIA [id number] [place] [address] [place] MCV (RBC) [Entitic vol] 89.1 fL Normal 80.0-100.0 [facility] Comment on above: Order Comment: Speci men Type: BLOOD SPECIMENOrdering Facility: [facility] Address: [address] [place] [address] Performed By: #### 5 7021-8 ####[facility] ERNCLAKE[facility] [id number] [place] [address] [place] Monocytes (Bld) [#/Vol] 0.38 10*3/uL Normal <0.87 [facility] Comment on above: Order Comment: Speci men Type: BLOOD SPECIMENOrdering Facility: [facility] Address: [address] [place] [address] Performed By: #### 5 7021-8 ####[facility] MILLWNCLIA [id number] [place] [address] [place] Monocytes/100 WBC (Bld) 6.1 % Normal [facility] Comment on above: Order Comment: Speci men Type: BLOOD SPECIMENOrdering Facility: [facility] Address: [address] [place] [address] Performed By: #### 5 7021-8 ####[facility]ENTERLIA [id number] [place] [address] [place] Neutrophils (Bld) [#/Vol] 4.16 10*3/uL Normal 1.45-7.50 [facility] Comment on above: Order Comment: Speci men Type: BLOOD SPECIMENOrdering Facility: [facility] Address: [address] [place] [address] Performed By: #### 5 7021-8 ####[facility] ERNCLIA [id number] [place] [address] [place] Neutrophils/100 WBC (Bld) 67.2 % Normal [facility] Comment on above: Order Comment: Speci men Type: BLOOD SPECIMENOrdering Facility: [facility] Address: [address] [place] [address] Performed By: #### 5 7021-8 ####[facility] ERNCLIA [id number] [place] [address] [place] Nucleated RBC (Bld) [#/Vol] 10*3/uL Normal <0.01 [facility] Comment on above: Order Comment: Speci men Type: BLOOD SPECIMENOrdering Facility: [facility] Address: [address] [place] [address] Performed By: #### 5 7021-8 ####[facility] CARLITONCNIKKI [id number] [place] [address] [place] Nucleated RBC/100 WBC (Bld) [Ratio] 0.0 /100 WBC Normal [facility] Comment on above: Order Comment: Speci men Type: BLOOD SPECIMENOrdering Facility: [facility] Address: [address] [place] [address] Performed By: #### 5 7021-8 ####[facility] STEVEALTA VISTANCLIEstephania [id number] [place] [address] [place] Platelet mean volume (Bld) [Entitic vol] 9.2 fL Normal 9.0-12.7 [facility] Comment on above: Order Comment: Speci men Type: BLOOD SPECIMENOrdering Facility: [facility] Address: [address] [place] [address] Performed By: #### 5 7021-8 ####[facility] ERNCLIA [id number] [place] [address] [place] Platelets (Bld) [#/Vol] 195 10*3/uL Normal 150-400 [facility] Comment on above: Order Comment: Speci men Type: BLOOD SPECIMENOrdering Facility: [facility] Address: [address] [place] [address] Performed By: #### 5 7021-8 ####[facility] ERNCLIA [id number] [place] [address] [place] RBC (Bld) [#/Vol] 3.75 10*6/uL Low 4.20-6.00 [facility] Comment on above: Order Comment: Speci men Type: BLOOD SPECIMENOrdering Facility: [facility] Address: [address] [place] [address] Performed By: #### 5 7021-8 ####[facility] ERMIRACLELIA [id number] [place] [address] [place] WBC (Bld) [#/Vol] 6.20 10*3/uL Normal 3.70-11.00 [facility] Comment on above: Order Comment: Speci men Type: BLOOD SPECIMENOrdering Facility: [facility] Address: [address] [place] [address] Performed By: #### 5 7021-8 ####[facility] ERMIRACLEA [id number] [place] [address] [place] CNPNon 01-29-2025 CNPN Normal [facility] CNPNon 01-27-2025 CNPN Normal [facility] HISTORY PHYSICALon HISTORY PHYSICAL Normal [facility] CBC W Auto Differential pane l (Bld)on 01-21-2025 Basophils (Bld) [#/Vol] 0.03 10*3/uL Normal <0.11 [facility] Comment on above: Order Comment: Speci men Type: BLOOD SPECIMENOrdering Facility: [facility] Address: [address] [place] [address] Performed By: #### 5 7021-8 ####[facility] ERMIRACLEA [id number] [place] [address] [place] Basophils/100 WBC (Bld) 0.5 % Normal [facility] Comment on above: Order Comment: Speci men Type: BLOOD SPECIMENOrdering Facility: [facility] Address: [address] [place] [address] Performed By: #### 5 7021-8 ####[facility] STEVEWNCLIA [id number] [place] [address] [place] Differential cell count method Nom (Bld) Auto Normal [facility] Comment on above: Order Comment: Speci men Type: BLOOD SPECIMENOrdering Facility: [facility] Address: [address] [place] [address] Performed By: #### 5 7021-8 ####[facility] STEVEMANDIFRIDAEstephania [id number] [place] [address] [place] Eosinophils (Bld) [#/Vol] 0.13 10*3/uL Normal <0.46 [facility] Comment on above: Order Comment: Speci men Type: BLOOD SPECIMENOrdering Facility: [facility] Address: [address] [place] [address] Performed By: #### 5 7021-8 ####[facility] ERMIRACLEEstephania [id number] [place] [address] [place] Eosinophils/100 WBC (Bld) 2.3 % Normal [facility] Comment on above: Order Comment: Speci men Type: BLOOD SPECIMENOrdering Facility: [facility] Address: [address] [place] [address] Performed By: #### 5 7021-8 ####[facility] ERNCNIKKI [id number] [place] [address] [place] Erythrocyte distribution width (RBC) [Ratio] 14.2 % Normal 11.5-15.0 [facility] Comment on above: Order Comment: Speci men Type: BLOOD SPECIMENOrdering Facility: [facility] Address: [address] [place] [address] Performed By: #### 5 7021-8 ####[facility] ERNCLIA [id number] [place] [address] [place] Hematocrit (Bld) [Volume fraction] 33.0 % Low 39.0-51.0 [facility] Comment on above: Order Comment: Speci men Type: BLOOD SPECIMENOrdering Facility: [facility] Address: [address] [place] [address] Performed By: #### 5 7021-8 ####[facility] MILLWNCLIA [id number] [place] [address] [place] Hemoglobin (Bld) [Mass/Vol] 10.6 g/dL Low 13.0-17.0 [facility] Comment on above: Order Comment: Speci men Type: BLOOD SPECIMENOrdering Facility: [facility] Address: [address] [place] [address] Performed By: #### 5 7021-8 ####[facility] CENTERLIA [id number] [place] [address] [place] Immature granulocytes (Bld) [#/Vol] 10*3/uL Normal <0.10 [facility] Comment on above: Order Comment: Speci men Type: BLOOD SPECIMENOrdering Facility: [facility] Address: [address] [place] [address] Performed By: #### 5 7021-8 ####[facility] CENTERLIA [id number] [place] [address] [place] Immature granulocytes/100 WBC (Bld) 0.4 % Normal [facility] Comment on above: Order Comment: Speci men Type: BLOOD SPECIMENOrdering Facility: [facility] Address: [address] [place] [address] Performed By: #### 5 7021-8 ####[facility] CENTERLIA [id number] [place] [address] [place] Lymphocytes (Bld) [#/Vol] 1.47 10*3/uL Normal 1.00-4.00 [facility] Comment on above: Order Comment: Speci men Type: BLOOD SPECIMENOrdering Facility: [facility] Address: [address] [place] [address] Performed By: #### 5 7021-8 ####[facility] ERNCLIA [id number] [address] [place] Lymphocytes/100 WBC (Bld) 26.1 % Normal [facility] Comment on above: Order Comment: Speci men Type: BLOOD SPECIMENOrdering Facility: [facility] Address: [address] [place] [address] Performed By: #### 5 7021-8 ####[facility] ERNCLAKE[facility] [id number] [place] [address] [place] MCH (RBC) [Entitic mass] 29.0 pg Normal 26.0-34.0 [facility] Comment on above: Order Comment: Speci men Type: BLOOD SPECIMENOrdering Facility: [facility] Address: [address] [place] [address] Performed By: #### 5 7021-8 ####[facility] ERNCLAKEVIEW [facility] [id number] [place] [address] [place] MCHC (RBC) [Mass/Vol] 32.1 g/dL Normal 30.5-36.0 [facility] Comment on above: Order Comment: Speci men Type: BLOOD SPECIMENOrdering Facility: [facility] Address: [address] [place] [address] Performed By: #### 5 7021-8 ####[facility] ERNCLIA [id number] [place] [address] [place] MCV (RBC) [Entitic vol] 90.4 fL Normal 80.0-100.0 [facility] Comment on above: Order Comment: Speci men Type: BLOOD SPECIMENOrdering Facility: [facility] Address: [address] [place] [address] Performed By: #### 5 7021-8 ####[facility] ERNCLI [id number] [place] [address] [place] Monocytes (Bld) [#/Vol] 0.45 10*3/uL Normal <0.87 [facility] Comment on above: Order Comment: Speci men Type: BLOOD SPECIMENOrdering Facility: [facility] Address: [address] [place] [address] Performed By: #### 5 7021-8 ####[facility] STEVEWILLA [id number] [place] [address] [place] Monocytes/100 WBC (Bld) 8.0 % Normal [facility] Comment on above: Order Comment: Speci men Type: BLOOD SPECIMENOrdering Facility: [facility] Address: [address] [place] [address] Performed By: #### 5 7021-8 ####[facility] ERNCA [id number] [place] [address] [place] Neutrophils (Bld) [#/Vol] 3.53 10*3/uL Normal 1.45-7.50 [facility] Comment on above: Order Comment: Speci men Type: BLOOD SPECIMENOrdering Facility: [facility] Address: [address] [place] [address] Performed By: #### 5 7021-8 ####[facility] ERNCA [id number] [place] [address] [place] Neutrophils/100 WBC (Bld) 62.7 % Normal [facility] Comment on above: Order Comment: Speci men Type: BLOOD SPECIMENOrdering Facility: [facility] Address: [address] [place] [address] Performed By: #### 5 7021-8 ####[facility]ITAL[facility] [id number] [place] [address] [place] Nucleated RBC (Bld) [#/Vol] 10*3/uL Normal <0.01 [facility] Comment on above: Order Comment: Speci men Type: BLOOD SPECIMENOrdering Facility: [facility] Address: [address] [place] [address] Performed By: #### 5 7021-8 ####[facility] STEVEMANDILIA [id number] [place] [address] [place] Nucleated RBC/100 WBC (Bld) [Ratio] 0.0 /100 WBC Normal [facility] Comment on above: Order Comment: Speci men Type: BLOOD SPECIMENOrdering Facility: [facility] Address: [address] [place] [address] Performed By: #### 5 7021-8 ####[facility] ERCHRISTINE [id number] [place] [address] [place] Platelet mean volume (Bld) [Entitic vol] 9.2 fL Normal 9.0-12.7 [facility] Comment on above: Order Comment: Speci men Type: BLOOD SPECIMENOrdering Facility: [facility] Address: [address] [place] [address] Performed By: #### 5 7021-8 ####[facility] ERMIRACLEEstephania [id number] [place] [address] [place] Platelets (Bld) [#/Vol] 183 10*3/uL Normal 150-400 [facility] Comment on above: Order Comment: Speci men Type: BLOOD SPECIMENOrdering Facility: [facility] Address: [address] [place] [address] Performed By: #### 5 7021-8 ####[facility] CENTERFRIDAA [id number] [place] [address] [place] RBC (Bld) [#/Vol] 3.65 10*6/uL Low 4.20-6.00 [facility] Comment on above: Order Comment: Speci men Type: BLOOD SPECIMENOrdering Facility: [facility] Address: [address] [place] [address] Performed By: #### 5 7021-8 ####[facility] ERNCLAKEVIEW H[facility] [id number] [place] [id number] [place] WBC (Bld) [#/Vol] 5.63 10*3/uL Normal 3.70-11.00 [facility] Comment on above: Order Comment: Speci men Type: BLOOD SPECIMENOrdering Facility: [facility] Address: [address] [place] [address] Performed By: #### 5 7021-8 ####[facility] CENTERNCLIA [id number] [place] [address] [place] CNOVSPon 01-21-2025 CNOVSP Normal [facility] Ferritin SerPl-mCncon 2024 Ferritin [Mass/Vol] 450.0 ng/mL Normal 30.3-565.7 [facility] Comment on above: Order Comment: Speci men Type: BLOOD SPECIMENOrdering Facility: [facility] Address: [address] [place] [address] Performed By: #### 2 276-4, 78225-4 ####[place] LABCLIA [id number] [place] [address] [place] Iron and Iron binding capaci ty panel 01-21-2025 Iron [Mass/Vol] 40 ug/dL Low 41-186 [facility] Comment on above: Order Comment: Speci men Type: BLOOD SPECIMENOrdering Facility: [facility] Address: [address] [place] [address] Performed By: #### 2 276-4, 78039-2 ####[place] LABCLIA [id number] [place] [id number] [place] Iron binding capacity [Mass/Vol] 223 ug/dL Low 232-386 [facility] Comment on above: Order Comment: Speci men Type: BLOOD SPECIMENOrdering Facility: [facility] Address: [address] [place] [address] Performed By: #### 2 276-4, 21035-9 ####[place] LABCLIA [id number] [place] [id number] [place] Iron/TIBC [Molar ratio] 17.9 % Normal 15.0-57.0 [facility] Comment on above: Order Comment: Speci men Type: BLOOD SPECIMENOrdering Facility: [facility] Address: [address] [place] [address] Performed By: #### 2 276-4, 19218-7 ####[place] LABCLIA [id number] [place] [id number] [facility] [place] CNPNon 01-16-2025 CNPN Telephone (PREANME) -- LOU JULIEN ([id number]) 1955 M Date Time Provider Department 01/16/25 [facility] During your visit today, we recorded the following information about you: Mila Kaiser RN 01/16/2025 12:[address] Manrique, Your patient, Mr Lou Julien, is scheduled for CREATION FISTULA ARTERIOVENOUS EXTREMITY UPPER-under general anesthesia by Dr. Milan Shrestha on 01/30/2025. Currently he is on Plavix and baby ASA for history of stroke-2019. Please advise if Lou, can hold Plavix for 5-7 days prior to surgery? Thank you, Vera Ochoa RN, MD 01/16/2025 1:01 PM Signed Ok to hold 5 days prior to surgery, Thank you Regards, Sima Goodwin LPN 01/16/2025 1:21 PM Signed Patients sister notified of providers message and verbalized understanding Allergies As of Date: 01/16/2025 Noted Allergy Reaction LOPID (GEMFIBROZIL) 06/06/2005 6 - Diarrhea METFORMIN 03/14/2020 6 - Diarrhea Date Reviewed: 01/10/2025 Reviewed by: Karsi Meléndez OCCA - Fully Assessed Reason for Visit: Preparations For Surgery [898] Cmt: Preoperative Plavix instructions Prescriptions as of 01/16/2025 - Diaper,Brief, Adult,Disposable (DEPEND UNDERWEAR FOR MEN VERONIQUE) 1 each as needed. - Diaper,Brief, Adult,Disposable (UNDERWEAR) Use 3-4 briefs daily as needed. Family states size small. Will need for a full year. And additional incontinence supplies as needed please - traZODone (DESYREL) 50 mg tablet Take 1-2 tablets by mouth daily at bedtime. - Senna 8.6 mg tab Take 1 tablet by mouth three times a day as needed. - sodium bicarbonate 650 mg tablet TAKE 1 TABLET BY MOUTH TWICE A DAY - losartan (COZAAR) 25 mg tablet TAKE 1 TABLET BY MOUTH DAILY - amLODIPine (NORVASC) 10 mg tablet Take 1 tablet by mouth once daily. - tamsulosin (FLOMAX) 0.4 mg Take 1 capsule by mouth daily at bedtime. - atorvastatin (LIPITOR) 80 mg tablet Take 1 tablet by mouth every morning. - metoprolol succinate ER (TOPROL XL) 100 mg Take 1 tablet by mouth every morning. - alcohol swabs (ALCOHOL PREP PADS) Apply 1 application to affected area TID with insulin injection - aspirin, enteric coated (ADULT LOW DOSE ASPIRIN) 81 mg EC tablet Take 1 tablet by mouth every morning. - hydrALAZINE (APRESOLINE) 50 mg tablet Take 1 tablet by mouth every 8 hours. - DAILY-YOUSUF, WITH FOLIC ACID, 400 mcg Take 1 tablet by mouth once daily. - clopidogrel (PLAVIX) 75 mg tablet Take 1 tablet by mouth once daily. - insulin glargine (LANTUS SOLOSTAR U-100 INSULIN) 100 unit/mL (3 mL) Inject 20 Units subcutaneously every morning. - blood sugar diagnostic (BLOOD GLUCOSE TEST) test strip Test blood sugar(s) three times daily. Dx: Type 2 DM - Uncontrolled E11.65 Insulin: Yes - insulin lispro (HUMALOG KWIKPEN INSULIN) 100 unit/mL Inject 2 Units subcutaneously three times a day before meals. - Insulin [place], Disposable, (BD ULTRA-FINE LUIS PEN NEEDLE) 32 gauge x Use one needle daily for each insulin dose, 4 x's daily. Type 2 DM, insulin dependent. - Lancets lancets Test blood sugar(s) one times daily. Dx: Type 2 DM - Uncontrolled E11.65 Insulin: Yes - MEDICAL SUPPLY Hospital bed with rails. - Blood-Glucose Meter 1 Device as directed. - melatonin 3 mg tablet Take 1 tablet by mouth daily at bedtime. - glucose (DEX4 GLUCOSE) 4 gram chewable tablet Take 4 tablets by mouth as needed. 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] Disturbances of Sensation of Smell and Taste [R* 10/22/2009 Essential hypertension, benign [I10] Psoriasis and similar disorders [696] Other specific developmental learning difficult* Class: Chronic Embolism and thrombosis of unspecified site [I7*04/25/2008 Disturbance of Skin Sensation [R20.9] 07/07/2008 10/22/2009 Neck Sprain and Strain [S13.9XXA] 07/07/2008 10/22/2009 Low back pain [M54.50] 10/22/2009 Family history of malignant neoplasm of gastroi*11/10/2009 Sciatica [M54.30] 03/22/2010 PSVT (paroxysmal supraventricular tachycardia) *06/22/2010 Diabetes mellitus type 2, uncontrolled (HCC) [I*06/28/2010 Iron deficiency anemia [D50.9] 03/29/2011 Benign neoplasm of colon [D12.6] 04/14/2011 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 [facility] CBC W Auto Differential pane l (Bld)on 01-14-2025 Basophils (Bld) [#/Vol] 10*3/uL Normal <0.11 [facility] Comment on above: Order Comment: Speci men Type: BLOOD SPECIMENOrdering Facility: [facility] Address: [address] [place] [address] Performed By: #### 5 7021-8 ####[facility]ENTERLIA [id number] [place] [address] [place] Basophils/100 WBC (Bld) 0.4 % Normal [facility] Comment on above: Order Comment: Speci men Type: BLOOD SPECIMENOrdering Facility: [facility] Address: [address] [place] [address] Performed By: #### 5 7021-8 ####[facility] [id number] [place] [address] [place] Differential cell count method Nom (Bld) Auto Normal [facility] Comment on above: Order Comment: Speci men Type: BLOOD SPECIMENOrdering Facility: [facility] Address: [address] [place] [address] Performed By: #### 5 7021-8 ####[facility]ITAL[facility] [id number] [place] [address] [place] Eosinophils (Bld) [#/Vol] 0.10 10*3/uL Normal <0.46 [facility] Comment on above: Order Comment: Speci men Type: BLOOD SPECIMENOrdering Facility: [facility] Address: [address] [place] [address] Performed By: #### 5 7021-8 ####[facility] ERNCLIA [id number] [place] [address] [place] Eosinophils/100 WBC (Bld) 1.8 % Normal [facility] Comment on above: Order Comment: Speci men Type: BLOOD SPECIMENOrdering Facility: [facility] Address: [address] [place] [address] Performed By: #### 5 7021-8 ####[facility] STEVEMakaylaNCNIKKI [id number] [place] [address] [place] Erythrocyte distribution width (RBC) [Ratio] 14.8 % Normal 11.5-15.0 [facility] Comment on above: Order Comment: Speci men Type: BLOOD SPECIMENOrdering Facility: [facility] Address: [address] [place] [address] Performed By: #### 5 7021-8 ####[facility] ERNCLIEstephania [id number] [place] [address] [place] Hematocrit (Bld) [Volume fraction] 31.8 % Low 39.0-51.0 [facility] Comment on above: Order Comment: Speci men Type: BLOOD SPECIMENOrdering Facility: [facility] Address: [address] [place] [address] Performed By: #### 5 7021-8 ####[facility] ERNCLIA [id number] [place] [address] [place] Hemoglobin (Bld) [Mass/Vol] 10.1 g/dL Low 13.0-17.0 [facility] Comment on above: Order Comment: Speci men Type: BLOOD SPECIMENOrdering Facility: [facility] Address: [address] [place] [address] Performed By: #### 5 7021-8 ####[facility] ERNCLIA [id number] [place] [address] [place] Immature granulocytes (Bld) [#/Vol] 0.04 10*3/uL Normal <0.10 [facility] Comment on above: Order Comment: Speci men Type: BLOOD SPECIMENOrdering Facility: [facility] Address: [address] [place] [address] Performed By: #### 5 7021-8 ####[facility] MILLWNCLIA [id number] [place] [address] [place] Immature granulocytes/100 WBC (Bld) 0.7 % Normal [facility] Comment on above: Order Comment: Speci men Type: BLOOD SPECIMENOrdering Facility: [facility] Address: [address] [place] [address] Performed By: #### 5 7021-8 ####[facility]ENTERLIA [id number] [place] [address] [place] Lymphocytes (Bld) [#/Vol] 1.51 10*3/uL Normal 1.00-4.00 [facility] Comment on above: Order Comment: Speci men Type: BLOOD SPECIMENOrdering Facility: [facility] Address: [address] [place] [address] Performed By: #### 5 7021-8 ####[facility] [id number] [place] [address] [place] Lymphocytes/100 WBC (Bld) 27.4 % Normal [facility] Comment on above: Order Comment: Speci men Type: BLOOD SPECIMENOrdering Facility: [facility] Address: [address] [place] [address] Performed By: #### 5 7021-8 ####[facility]ENTERLIA [id number] [place] [address] [place] MCH (RBC) [Entitic mass] 29.0 pg Normal 26.0-34.0 [facility] Comment on above: Order Comment: Speci men Type: BLOOD SPECIMENOrdering Facility: [facility] Address: [address] [place] [address] Performed By: #### 5 7021-8 ####[facility] ERNCLIA [id number] [place] [address] [place] MCHC (RBC) [Mass/Vol] 31.8 g/dL Normal 30.5-36.0 [facility] Comment on above: Order Comment: Speci men Type: BLOOD SPECIMENOrdering Facility: [facility] Address: [address] [place] [address] Performed By: #### 5 7021-8 ####[facility] [id number] [place] [address] [place] MCV (RBC) [Entitic vol] 91.4 fL Normal 80.0-100.0 [facility] Comment on above: Order Comment: Speci men Type: BLOOD SPECIMENOrdering Facility: [facility] Address: [address] [place] [address] Performed By: #### 5 7021-8 ####[facility] [id number] [place] [address] [place] Monocytes (Bld) [#/Vol] 0.46 10*3/uL Normal <0.87 [facility] Comment on above: Order Comment: Speci men Type: BLOOD SPECIMENOrdering Facility: [facility] Address: [address] [place] [address] Performed By: #### 5 7021-8 ####[facility] ERNCLIA [id number] [place] [address] [place] Monocytes/100 WBC (Bld) 8.3 % Normal [facility] Comment on above: Order Comment: Speci men Type: BLOOD SPECIMENOrdering Facility: [facility] Address: [address] [place], [place] [address] Performed By: #### 5 7021-8 ####[facility] ERNCLIA [id number] [place] [address] [place] Neutrophils (Bld) [#/Vol] 3.38 10*3/uL Normal 1.45-7.50 [facility] Comment on above: Order Comment: Speci men Type: BLOOD SPECIMENOrdering Facility: [facility] Address: [address] [place] [address] Performed By: #### 5 7021-8 ####[facility] STEVEALTA VISTACHRISTINE [id number] [place] [address] [place] Neutrophils/100 WBC (Bld) 61.4 % Normal [facility] Comment on above: Order Comment: Speci men Type: BLOOD SPECIMENOrdering Facility: [facility] Address: [address] [place] [address] Performed By: #### 5 7021-8 ####[facility] [id number] [place] [address] [place] Nucleated RBC (Bld) [#/Vol] 10*3/uL Normal <0.01 [facility] Comment on above: Order Comment: Speci men Type: BLOOD SPECIMENOrdering Facility: [facility] Address: [address] [place] [address] Performed By: #### 5 7021-8 ####[facility] [id number] [place] [address] [place] Nucleated RBC/100 WBC (Bld) [Ratio] 0.0 /100 WBC Normal [facility] Comment on above: Order Comment: Speci men Type: BLOOD SPECIMENOrdering Facility: [facility] Address: [address] [place] [address] Performed By: #### 5 7021-8 ####[facility] [id number] [place] [address] [place] Platelet mean volume (Bld) [Entitic vol] 8.8 fL Low 9.0-12.7 [facility] Comment on above: Order Comment: Speci men Type: BLOOD SPECIMENOrdering Facility: [facility] Address: [address] [place] [address] Performed By: #### 5 7021-8 ####[facility] ERNCLIA [id number] [place] [address] [place] Platelets (Bld) [#/Vol] 181 10*3/uL Normal 150-400 [facility] Comment on above: Order Comment: Speci men Type: BLOOD SPECIMENOrdering Facility: [facility] Address: [address] [place] [address] Performed By: #### 5 7021-8 ####[facility] ERNCLIA [id number] [place] [address] [place] RBC (Bld) [#/Vol] 3.48 10*6/uL Low 4.20-6.00 [facility] Comment on above: Order Comment: Speci men Type: BLOOD SPECIMENOrdering Facility: [facility] Address: [address] [place] [address] Performed By: #### 5 7021-8 ####[facility] ERNCLIA [id number] [place] [address] [place] WBC (Bld) [#/Vol] 5.51 10*3/uL Normal 3.70-11.00 [facility] Comment on above: Order Comment: Speci men Type: BLOOD SPECIMENOrdering Facility: [facility] Address: [address] [place] [address] Performed By: #### 5 7021-8 ####[facility]ENTERLIA [id number] [place] [address] [place] CNPNon 01-14-2025 CNPN Normal [facility] CNCOon 01-10-2025 CNCO Letter Text Normal [facility] CNOVon 01-10-2025 CNOV Normal [facility] CBC W Auto Differential pane l (Bld)on 01-07-2025 Basophils (Bld) [#/Vol] 10*3/uL Normal <0.11 [facility] Comment on above: Order Comment: Speci men Type: BLOOD SPECIMENOrdering Facility: [facility] Address: [address] [place] [address] Performed By: #### 5 7021-8 ####[facility] STEVEALTA VISTAMIRACLELIA [id number] [place] [address] [place] Basophils/100 WBC (Bld) 0.2 % Normal [facility] Comment on above: Order Comment: Speci men Type: BLOOD SPECIMENOrdering Facility: [facility] Address: [address] [place] [address] Performed By: #### 5 7021-8 ####[facility] [id number] [place] [address] [place] Differential cell count method Nom (Bld) Auto Normal [facility] Comment on above: Order Comment: Speci men Type: BLOOD SPECIMENOrdering Facility: [facility] Address: [address] [place] [address] Performed By: #### 5 7021-8 ####[facility] [id number] [place] [address] [place] Eosinophils (Bld) [#/Vol] 0.11 10*3/uL Normal <0.46 [facility] Comment on above: Order Comment: Speci men Type: BLOOD SPECIMENOrdering Facility: [facility] Address: [address] [place] [address] Performed By: #### 5 7021-8 ####[facility]ENTERLIA [id number] [place] [address] [place] Eosinophils/100 WBC (Bld) 2.1 % Normal [facility] Comment on above: Order Comment: Speci men Type: BLOOD SPECIMENOrdering Facility: [facility] Address: [address] [place] [address] Performed By: #### 5 7021-8 ####[facility] ERNCLIEstephania [id number] [place] [address] [place] Erythrocyte distribution width (RBC) [Ratio] 14.7 % Normal 11.5-15.0 [facility] Comment on above: Order Comment: Speci men Type: BLOOD SPECIMENOrdering Facility: [facility] Address: [address] [place] [address] Performed By: #### 5 7021-8 ####[facility] ERCHRISTINE [id number] [place] [address] [place] Hematocrit (Bld) [Volume fraction] 28.8 % Low 39.0-51.0 [facility] Comment on above: Order Comment: Speci men Type: BLOOD SPECIMENOrdering Facility: [facility] Address: [address] [place] [address] Performed By: #### 5 7021-8 ####[facility] ERMIRACLELAKEVIEW [facility]OSPITAL [id number] [place] [address] [place] Hemoglobin (Bld) [Mass/Vol] 9.3 g/dL Low 13.0-17.0 [facility] Comment on above: Order Comment: Speci men Type: BLOOD SPECIMENOrdering Facility: [facility] Address: [address] [place] [address] Performed By: #### 5 7021-8 ####[facility] ERCHRISTINE [id number] [place] [address] [place] Immature granulocytes (Bld) [#/Vol] 0.03 10*3/uL Normal <0.10 [facility] Comment on above: Order Comment: Speci men Type: BLOOD SPECIMENOrdering Facility: [facility] Address: [address] [place] [address] Performed By: #### 5 7021-8 ####[facility] ERNCLI [id number] [place] [address] [place] Immature granulocytes/100 WBC (Bld) 0.6 % Normal [facility] Comment on above: Order Comment: Speci men Type: BLOOD SPECIMENOrdering Facility: [facility] Address: [address] [place] [address] Performed By: #### 5 7021-8 ####[facility] [id number] [place] [address] [place] Lymphocytes (Bld) [#/Vol] 1.13 10*3/uL Normal 1.00-4.00 [facility] Comment on above: Order Comment: Speci men Type: BLOOD SPECIMENOrdering Facility: [facility] Address: [address] [place] [address] Performed By: #### 5 7021-8 ####[facility] [id number] [place] [address] [place] Lymphocytes/100 WBC (Bld) 21.3 % Normal [facility] Comment on above: Order Comment: Speci men Type: BLOOD SPECIMENOrdering Facility: [facility] Address: [address] [place] [address] Performed By: #### 5 7021-8 ####[facility] ERNCLI [id number] [place] [address] [place] MCH (RBC) [Entitic mass] 29.2 pg Normal 26.0-34.0 [facility] Comment on above: Order Comment: Speci men Type: BLOOD SPECIMENOrdering Facility: [facility] Address: [address] [place] [address] Performed By: #### 5 7021-8 ####[facility] [id number] [place] [address] [place] MCHC (RBC) [Mass/Vol] 32.3 g/dL Normal 30.5-36.0 [facility] Comment on above: Order Comment: Speci men Type: BLOOD SPECIMENOrdering Facility: [facility] Address: [address] [place] [address] Performed By: #### 5 7021-8 ####[facility] ERMIRACLELAKEVIEW [facility]OSP[facility] [id number] [place] [address] [place] MCV (RBC) [Entitic vol] 90.3 fL Normal 80.0-100.0 [facility] Comment on above: Order Comment: Speci men Type: BLOOD SPECIMENOrdering Facility: [facility] Address: [address] [place] [address] Performed By: #### 5 7021-8 ####[facility] [id number] [place] [address] [place] Monocytes (Bld) [#/Vol] 0.39 10*3/uL Normal <0.87 [facility] Comment on above: Order Comment: Speci men Type: BLOOD SPECIMENOrdering Facility: [facility] Address: [address] [place] [address] Performed By: #### 5 7021-8 ####[facility] [id number] [place] [address] [place] Monocytes/100 WBC (Bld) 7.3 % Normal [facility] Comment on above: Order Comment: Speci men Type: BLOOD SPECIMENOrdering Facility: [facility] Address: [address] [place] [address] Performed By: #### 5 7021-8 ####[facility] ER[facility] [id number] [place] [address] [place] Neutrophils (Bld) [#/Vol] 3.64 10*3/uL Normal 1.45-7.50 [facility] Comment on above: Order Comment: Speci men Type: BLOOD SPECIMENOrdering Facility: [facility] Address: [address] [place] [address] Performed By: #### 5 7021-8 ####[facility] STEVEMANDILIA [id number] [place] [address] [place] Neutrophils/100 WBC (Bld) 68.5 % Normal [facility] Comment on above: Order Comment: Speci men Type: BLOOD SPECIMENOrdering Facility: [facility] Address: [address] [place] [address] Performed By: #### 5 7021-8 ####[facility] ERCHRISTINE [id number] [place] [address] [place] Nucleated RBC (Bld) [#/Vol] 10*3/uL Normal <0.01 [facility] Comment on above: Order Comment: Speci men Type: BLOOD SPECIMENOrdering Facility: [facility] Address: [address] [place] [address] Performed By: #### 5 7021-8 ####[facility]LELA[facility]VIEW [facility] [id number] [place] [address] [place] Nucleated RBC/100 WBC (Bld) [Ratio] 0.0 /100 WBC Normal [facility] Comment on above: Order Comment: Speci men Type: BLOOD SPECIMENOrdering Facility: [facility] Address: [address] [place] [address] Performed By: #### 5 7021-8 ####[facility]ENTERNIKKI [id number] [place] [address] [place] Platelet mean volume (Bld) [Entitic vol] 8.8 fL Low 9.0-12.7 [facility] Comment on above: Order Comment: Speci men Type: BLOOD SPECIMENOrdering Facility: [facility] Address: [address] [place] [address] Performed By: #### 5 7021-8 ####[facility] ERNCLI [id number] [place] [address] [place] Platelets (Bld) [#/Vol] 203 10*3/uL Normal 150-400 [facility] Comment on above: Order Comment: Speci men Type: BLOOD SPECIMENOrdering Facility: [facility] Address: [address] [place] [address] Performed By: #### 5 7021-8 ####[facility] ERNCLIA [id number] [place] [address] [place] RBC (Bld) [#/Vol] 3.19 10*6/uL Low 4.20-6.00 [facility] Comment on above: Order Comment: Speci men Type: BLOOD SPECIMENOrdering Facility: [facility] Address: [address] [place] [address] Performed By: #### 5 7021-8 ####[facility] ERNCA [id number] [place] [address] [place] WBC (Bld) [#/Vol] 5.31 10*3/uL Normal 3.70-11.00 [facility] Comment on above: Order Comment: Speci men Type: BLOOD SPECIMENOrdering Facility: [facility] Address: [address] [place] [address] Performed By: #### 5 7021-8 ####[facility] ERNCLIA [id number] [place] [address] [place] UPPER EXT MAP FOR DIALYSIS A CCESS MORGAN VAS LABon 01-06-2025 UPPER EXT MAP FOR DIALYSIS ACCESS MORGAN VAS LAB Normal [facility] CNOVon 01-02-2025 CNOV Normal [facility] CBC W Auto Differential pane l (Bld)on 12-31-2024 Basophils (Bld) [#/Vol] 0.03 10*3/uL Normal <0.11 [facility] Comment on above: Order Comment: Speci men Type: BLOOD SPECIMENOrdering Facility: [facility] Address: [address] [place] [address] Performed By: #### 5 7021-8 ####[facility] STEVEWNCLIA [id number] [place] [address] [place] Basophils/100 WBC (Bld) 0.5 % Normal [facility] Comment on above: Order Comment: Speci men Type: BLOOD SPECIMENOrdering Facility: [facility] Address: [address] [place] [address] Performed By: #### 5 7021-8 ####[facility] STEVERICHMOND STATE HOSPITALLIA [id number] [place] [address] [place] Differential cell count method Nom (Bld) Auto Normal [facility] Comment on above: Order Comment: Speci men Type: BLOOD SPECIMENOrdering Facility: [facility] Address: [address] [place] [address] Performed By: #### 5 7021-8 ####[facility] ERMIRACLEA [id number] [place] [address] [place] Eosinophils (Bld) [#/Vol] 0.14 10*3/uL Normal <0.46 [facility] Comment on above: Order Comment: Speci men Type: BLOOD SPECIMENOrdering Facility: [facility] Address: [address] [place] [address] Performed By: #### 5 7021-8 ####[facility] ERSTEPHA [id number] [place] [address] [place] Eosinophils/100 WBC (Bld) 2.1 % Normal [facility] Comment on above: Order Comment: Speci men Type: BLOOD SPECIMENOrdering Facility: [facility] Address: [address] [place] [address] Performed By: #### 5 7021-8 ####[facility] ERMIRACLELIA [id number] [place] [address] [place] Erythrocyte distribution width (RBC) [Ratio] 14.2 % Normal 11.5-15.0 [facility] Comment on above: Order Comment: Speci men Type: BLOOD SPECIMENOrdering Facility: [facility] Address: [address] [place] [address] Performed By: #### 5 7021-8 ####[facility]NCLA[facility] [id number] [place] [address] [place] Hematocrit (Bld) [Volume fraction] 24.5 % Low 39.0-51.0 [facility] Comment on above: Order Comment: Speci men Type: BLOOD SPECIMENOrdering Facility: [facility] Address: [address] [place] [address] Performed By: #### 5 7021-8 ####[facility] [id number] [place] [address] [place] Hemoglobin (Bld) [Mass/Vol] 7.8 g/dL Low 13.0-17.0 [facility] Comment on above: Order Comment: Speci men Type: BLOOD SPECIMENOrdering Facility: [facility] Address: [address] [place] [address] Performed By: #### 5 7021-8 ####[facility] [id number] [place] [address] [place] Immature granulocytes (Bld) [#/Vol] 0.08 10*3/uL Normal <0.10 [facility] Comment on above: Order Comment: Speci men Type: BLOOD SPECIMENOrdering Facility: [facility] Address: [address] [place] [address] Performed By: #### 5 7021-8 ####[facility] ERNCLI [id number] [place] [address] [place] Immature granulocytes/100 WBC (Bld) 1.2 % Normal [facility] Comment on above: Order Comment: Speci men Type: BLOOD SPECIMENOrdering Facility: [facility] Address: [address] [place] [address] Performed By: #### 5 7021-8 ####[facility] MILLTOWNCLIA [id number] [place] [address] [place] Lymphocytes (Bld) [#/Vol] 1.59 10*3/uL Normal 1.00-4.00 [facility] Comment on above: Order Comment: Speci men Type: BLOOD SPECIMENOrdering Facility: [facility] Address: [address] [place] [address] Performed By: #### 5 7021-8 ####[facility]ITALWNCLIA [id number] [place] [address] [place] Lymphocytes/100 WBC (Bld) 24.3 % Normal [facility] Comment on above: Order Comment: Speci men Type: BLOOD SPECIMENOrdering Facility: [facility] Address: [address] [place] [address] Performed By: #### 5 7021-8 ####[facility] ERNCLIA [id number] [place] [address] [place] MCH (RBC) [Entitic mass] 28.5 pg Normal 26.0-34.0 [facility] Comment on above: Order Comment: Speci men Type: BLOOD SPECIMENOrdering Facility: [facility] Address: [address] [place] [address] Performed By: #### 5 7021-8 ####[facility] MILLTOWNCLIA [id number] [place] [address] [place] MCHC (RBC) [Mass/Vol] 31.8 g/dL Normal 30.5-36.0 [facility] Comment on above: Order Comment: Speci men Type: BLOOD SPECIMENOrdering Facility: [facility] Address: [address] [place] [address] Performed By: #### 5 7021-8 ####[facility] [id number] [place] [address] [place] MCV (RBC) [Entitic vol] 89.4 fL Normal 80.0-100.0 [facility] Comment on above: Order Comment: Speci men Type: BLOOD SPECIMENOrdering Facility: [facility] Address: [address] [place] [address] Performed By: #### 5 7021-8 ####[facility] [id number] [place] [address] [place] Monocytes (Bld) [#/Vol] 0.41 10*3/uL Normal <0.87 [facility] Comment on above: Order Comment: Speci men Type: BLOOD SPECIMENOrdering Facility: [facility] Address: [address] [place] [address] Performed By: #### 5 7021-8 ####[facility] [id number] [place] [address] [place] Monocytes/100 WBC (Bld) 6.3 % Normal [facility] Comment on above: Order Comment: Speci men Type: BLOOD SPECIMENOrdering Facility: [facility] Address: [address] [place] [address] Performed By: #### 5 7021-8 ####[facility] [id number] [place] [address] [place] Neutrophils (Bld) [#/Vol] 4.30 10*3/uL Normal 1.45-7.50 [facility] Comment on above: Order Comment: Speci men Type: BLOOD SPECIMENOrdering Facility: [facility] Address: [address] [place] [address] Performed By: #### 5 7021-8 ####[facility] [id number] [place] [address] [place] Neutrophils/100 WBC (Bld) 65.6 % Normal [facility] Comment on above: Order Comment: Speci men Type: BLOOD SPECIMENOrdering Facility: [facility] Address: [address] [place] [address] Performed By: #### 5 7021-8 ####[facility] [id number] [place] [address] [place] Nucleated RBC (Bld) [#/Vol] 10*3/uL Normal <0.01 [facility] Comment on above: Order Comment: Speci men Type: BLOOD SPECIMENOrdering Facility: [facility] Address: [address] [place] [address] Performed By: #### 5 7021-8 ####[facility] [id number] [place] [address] [place] Nucleated RBC/100 WBC (Bld) [Ratio] 0.0 /100 WBC Normal [facility] Comment on above: Order Comment: Speci men Type: BLOOD SPECIMENOrdering Facility: [facility] Address: [address] [place] [address] Performed By: #### 5 7021-8 ####[facility] [id number] [place] [address] [place] Platelet mean volume (Bld) [Entitic vol] 9.1 fL Normal 9.0-12.7 [facility] Comment on above: Order Comment: Speci men Type: BLOOD SPECIMENOrdering Facility: [facility] Address: [address] [place] [address] Performed By: #### 5 7021-8 ####[facility] [id number] [place] [address] [place] Platelets (Bld) [#/Vol] 228 10*3/uL Normal 150-400 [facility] Comment on above: Order Comment: Speci men Type: BLOOD SPECIMENOrdering Facility: [facility] Address: [address] [place] [address] Performed By: #### 5 7021-8 ####[facility] ERSTEPHEstephania [id number] [place] [address] [place] RBC (Bld) [#/Vol] 2.74 10*6/uL Low 4.20-6.00 [facility] Comment on above: Order Comment: Speci men Type: BLOOD SPECIMENOrdering Facility: [facility] Address: [address] [place] [address] Performed By: #### 5 7021-8 ####[facility] ERCHRISTINE [id number] [place] [address] [place] WBC (Bld) [#/Vol] 6.55 10*3/uL Normal 3.70-11.00 [facility] Comment on above: Order Comment: Speci men Type: BLOOD SPECIMENOrdering Facility: [facility] Address: [address] [place] [address] Performed By: #### 5 7021-8 ####[facility] ERSTEPHA [id number] [place] [address] [place] CNOVon 12-31-2024 CNOV Normal [facility] CBC W Auto Differential pane l (Bld)on 12-24-2024 Basophils (Bld) [#/Vol] 10*3/uL Normal <0.11 [facility] Comment on above: Order Comment: Speci men Type: BLOOD SPECIMENOrdering Facility: [facility] Address: [address] [place] [address] Performed By: #### 5 7021-8 ####[facility] ERNCL[facility] [id number] [place] [address] [place] Basophils/100 WBC (Bld) 0.2 % [facility] Comment on above: Order Comment: Speci men Type: BLOOD SPECIMENOrdering Facility: [facility] Address: [address] [place] [address] Performed By: #### 5 7021-8 ####[facility] ERNCL[facility] [id number] [place] [address] [place] Differential cell count method Nom (Bld) Auto Normal [facility] Comment on above: Order Comment: Speci men Type: BLOOD SPECIMENOrdering Facility: [facility] Address: [address] [place] [address] Performed By: #### 5 7021-8 ####[facility] ERNCL[facility] [id number] [place] [address] [place] Eosinophils (Bld) [#/Vol] 0.12 10*3/uL Normal <0.46 [facility] Comment on above: Order Comment: Speci men Type: BLOOD SPECIMENOrdering Facility: [facility] Address: [address] [place] [address] Performed By: #### 5 7021-8 ####[facility] ERNCL[facility] [id number] [place] [address] [place] Eosinophils/100 WBC (Bld) 2.0 % Normal [facility] Comment on above: Order Comment: Speci men Type: BLOOD SPECIMENOrdering Facility: [facility] Address: [address] [place] [address] Performed By: #### 5 7021-8 ####[facility] ER[facility]CL[facility] [id number] [place] [address] [place] Erythrocyte distribution width (RBC) [Ratio] 13.1 % Normal 11.5-15.0 [facility] Comment on above: Order Comment: Speci men Type: BLOOD SPECIMENOrdering Facility: [facility] Address: [address] [place] [address] Performed By: #### 5 7021-8 ####[facility] [id number] [place] [address] [place] Hematocrit (Bld) [Volume fraction] 22.6 % Low 39.0-51.0 [facility] Comment on above: Order Comment: Speci men Type: BLOOD SPECIMENOrdering Facility: [facility] Address: [address] [place] [address] Performed By: #### 5 7021-8 ####[facility] ERCHRISTINE [id number] [place] [address] [place] Hemoglobin (Bld) [Mass/Vol] 7.4 g/dL Low 13.0-17.0 [facility] Comment on above: Order Comment: Speci men Type: BLOOD SPECIMENOrdering Facility: [facility] Address: [address] [place] [address] Performed By: #### 5 7021-8 ####[facility] ERMIRACLELAKEVIEW H[facility] [id number] [place] [address] [place] Immature granulocytes (Bld) [#/Vol] 0.06 10*3/uL Normal <0.10 [facility] Comment on above: Order Comment: Speci men Type: BLOOD SPECIMENOrdering Facility: [facility] Address: [address] [place] [address] Performed By: #### 5 7021-8 ####[facility] ERCHRISTINE [id number] [place] [address] [place] Immature granulocytes/100 WBC (Bld) 1.0 % Normal [facility] Comment on above: Order Comment: Speci men Type: BLOOD SPECIMENOrdering Facility: [facility] Address: [address] [place] [address] Performed By: #### 5 7021-8 ####[facility] [id number] [place] [address] [place] Lymphocytes (Bld) [#/Vol] 1.43 10*3/uL Normal 1.00-4.00 [facility] Comment on above: Order Comment: Speci men Type: BLOOD SPECIMENOrdering Facility: [facility] Address: [address] [place] [address] Performed By: #### 5 7021-8 ####[facility]NCLA[facility] [id number] [place] [address] [place] Lymphocytes/100 WBC (Bld) 23.5 % Normal [facility] Comment on above: Order Comment: Speci men Type: BLOOD SPECIMENOrdering Facility: [facility] Address: [address] [place] [address] Performed By: #### 5 7021-8 ####[facility]CLA[facility] [id number] [place] [address] [place] MCH (RBC) [Entitic mass] 28.8 pg Normal 26.0-34.0 [facility] Comment on above: Order Comment: Speci men Type: BLOOD SPECIMENOrdering Facility: [facility] Address: [address] [place] [address] Performed By: #### 5 7021-8 ####[facility] [id number] [place] [address] [place] MCHC (RBC) [Mass/Vol] 32.7 g/dL Normal 30.5-36.0 [facility] Comment on above: Order Comment: Speci men Type: BLOOD SPECIMENOrdering Facility: [facility] Address: [address] [place] [address] Performed By: #### 5 7021-8 ####[facility] [id number] [place] [address] [place] MCV (RBC) [Entitic vol] 87.9 fL Normal 80.0-100.0 [facility] Comment on above: Order Comment: Speci men Type: BLOOD SPECIMENOrdering Facility: [facility] Address: [address] [place] [address] Performed By: #### 5 7021-8 ####[facility] MILLTOWNCLIA [id number] [place] [address] [place] Monocytes (Bld) [#/Vol] 0.42 10*3/uL Normal <0.87 [facility] Comment on above: Order Comment: Speci men Type: BLOOD SPECIMENOrdering Facility: [facility] Address: [address] [place] [address] Performed By: #### 5 7021-8 ####[facility] MILLWNCLIA [id number] [place] [address] [place] Monocytes/100 WBC (Bld) 6.9 % Normal [facility] Comment on above: Order Comment: Speci men Type: BLOOD SPECIMENOrdering Facility: [facility] Address: [address] [place] [address] Performed By: #### 5 7021-8 ####[facility] ER[facility]CL[facility] [id number] [place] [address] [place] Neutrophils (Bld) [#/Vol] 4.05 10*3/uL Normal 1.45-7.50 [facility] Comment on above: Order Comment: Speci men Type: BLOOD SPECIMENOrdering Facility: [facility] Address: [address] [place] [address] Performed By: #### 5 7021-8 ####[facility] MILLTOWNCLIA [id number] [place] [address] [place] Neutrophils/100 WBC (Bld) 66.4 % Normal [facility] Comment on above: Order Comment: Speci men Type: BLOOD SPECIMENOrdering Facility: [facility] Address: [address] [place] [address] Performed By: #### 5 7021-8 ####[facility] MILLTOWNCLIA [id number] [place] [address] [place] Nucleated RBC (Bld) [#/Vol] 10*3/uL Normal <0.01 [facility] Comment on above: Order Comment: Speci men Type: BLOOD SPECIMENOrdering Facility: [facility] Address: [address] [place] [address] Performed By: #### 5 7021-8 ####[facility] ERMIRACLEFRIDA [id number] [place] [address] [place] Nucleated RBC/100 WBC (Bld) [Ratio] 0.0 /100 WBC Normal [facility] Comment on above: Order Comment: Speci men Type: BLOOD SPECIMENOrdering Facility: [facility] Address: [address] [place] [address] Performed By: #### 5 7021-8 ####[facility] ERNCNIKKI [id number] [place] [address] [place] Platelet mean volume (Bld) [Entitic vol] 8.6 fL Low 9.0-12.7 [facility] Comment on above: Order Comment: Speci men Type: BLOOD SPECIMENOrdering Facility: [facility] Address: [address] [place] [address] Performed By: #### 5 7021-8 ####[facility] ERMIRACLELIEstephania [id number] [place] [address] [place] Platelets (Bld) [#/Vol] 176 10*3/uL Normal 150-400 [facility] Comment on above: Order Comment: Speci men Type: BLOOD SPECIMENOrdering Facility: [facility] Address: [address] [place] [address] Performed By: #### 5 7021-8 ####[facility] ERNCL[facility] [id number] [place] [address] [place] RBC (Bld) [#/Vol] 2.57 10*6/uL Low 4.20-6.00 [facility] [place] Comment on above: Order Comment: Speci men Type: BLOOD SPECIMENOrdering Facility: [facility] Address: [address] [place] [address] Performed By: #### 5 7021-8 ####[facility]CLA[facility] [id number] [place] [address] [place] WBC (Bld) [#/Vol] 6.09 10*3/uL Normal 3.70-11.00 [facility] Comment on above: Order Comment: Speci men Type: BLOOD SPECIMENOrdering Facility: [facility] Address: [address] [place] [address] Performed By: #### 5 7021-8 ####[facility]CLA[facility] [id number] [place] [address] [place] CNPNon 12-24-2024 CNPN Normal [facility] Emergency Department Summary on 12-23-2024 Emergency Department Summary [facility] Medical Records Department [address] [place] [address] Emergency Department Summary 12/23/24 MR#: [id number] Acct: [id number] Name: LOU JULIEN Rep #: [id number] : 1955 69 From: Juice Suero DO PCP: Dr. Vera Manrique MD Status:DEP ER Location: ED HPI History of Present Illness Chief Complaint: Wound Informant: patient Onset/Context/Timing Onset: Weeks (1) Context: Gradual Onset Timing: Continuous Quality: Burning Location: Left buttock Worsened by: Nothing Relieved by: Nothing Narrative Narrative: Patient presents with sores to his left buttock that has been getting worse over the past week. Patient states it is constant. Patient describes it as burning. Patient states nothing makes it worse and nothing makes it better. Patient denies any fevers or chills. Patient denies any discharge or drainage. Patient states he does have a history of diabetes. Patient denies any paresthesias or weakness. Patient denies any abdominal pain. Patient denies any rectal pain. [facility] Medical History GI bleed due to NSAIDs Anemia Acute on chronic kidney failure Kidney failure Need for home health care Insulin dependent diabetes mellitus Leg cramps History of pain when walking Wears glasses Ambulates with cane High cholesterol Stroke/cerebrovascular accident Syncope Dietary restriction History of edema History of echocardiogram History of stress test Cardiology follow-up encounter Irregular heart beat Former smoker DVT (deep venous thrombosis) Pacemaker Diabetes mellitus Paroxysmal supraventricular tachycardia (06/2017) Complete heart block (02/2019) Essential (primary) hypertension Sick sinus syndrome Sinus pause CVA (cerebral vascular accident) (02/2019) Tachyarrhythmia HLD (hyperlipidemia) Home Medications ???Medication ???Instructions ???Recorded ???Last Taken ???Type atorvastatin 80 mg tablet 80 mg PO DAILY cholesterol 9 08/22/23 History multivitamin (Daily-Yousuf tablet) 1 tab PO DAILY SUPPLEMENT 03/11/22 12/25/23 History ascorbic acid (vitamin C) 500 mg 500 mg PO BID 30 days #60 tabs 08/22/23 Rx tablet (Vitamin C) clopidogrel 75 mg tablet 75 mg PO DAILY 03/14/23 08/16/23 H istory aspirin 81 mg tablet,delayed 81 mg PO DAILY 04/07/23 Unknown Hi story release insulin glargine 100 unit/mL (3 20 unit subcut .QAM DIABETES 04/0708/22/23 History mL) subcutaneous pen (Lantus Solostar U-100 Insulin) trazodone 50 mg tablet 50 mg PO QHS 04/07/23 12/24/23 His tory insulin lispro 100 unit/mL 2 unit subcut TID 05/25/23 4 History subcutaneous pen hydralazine 50 mg tablet 50 mg PO DAILY 06/29/23 Unknown Hi story amlodipine 10 mg tablet 10 mg PO DAILY 08/21/23 Unknown Hi story metoprolol succinate 100 mg 100 mg PO QHS 08/21/23 Unknown His tory tablet,extended release 24 hr hydrocodone-acetaminophen 5-325mg 1 tab PO Q6H PRN PRN Pain 3 days 08/15/24 Unknown Rx 5mg-325mg #10 TABLETS cephalexin 500 mg capsule 500 mg PO Q6 #40 CAPSULES 12/23/24 Unknown Rx Allergy/AdvReac Type Severity Reaction Status Date / Time metformin (From Glucophage) AdvReac Diarrhea Verified 12/23/24 18:42 Family History Mother Cancer Father Heart disease Hypertension Myocardial infarction Surgical History History of hand surgery History of carpal tunnel release History of permanent cardiac pacemaker placement (03/05/19) Social History household members: none Smoking Status: Former smoker Smokeless tobacco user: other alcohol intake: never substance use type: does not use ROS ROS ED Constitutional Constitutional ED: Denies chills or fever(s) Eyes Eyes: Denies blurry vision or change in vision ENT ENT ED: Denies rhinorrhea or sore throat Cardiovascular Cardiovascular: Denies chest pain or palpitations Respiratory/Chest Respiratory/Chest: Denies cough or dyspnea Gastrointestinal Gastrointestinal: Denies nausea or vomiting Genitourinary Genitourinary ED: Denies dysuria or hematuria Musculoskeletal Musculoskeletal: Denies back pain or neck pain Integumentary Denies abscess or rash Neurologic Neurologic: Denies headache(s) or weakness Allergic/Immunologic Allergic/Immunologic ED: Denies mouth swelling or urticaria EXAM Physical Exam Const Vital Signs: 12/23/24 18:41 Temperature 98.4 F Temperature Source Oral Pulse Rate 71 Respiratory Rate 16 Blood Pressure 136/68 H Blood Pressure Mean 90 Pulse Ox 98 Oxygen Delivery Method Room Air Positive well (more content not included)... Normal [facility] CBC W Auto Differential pane l (Bld)on 2024 Basophils (Bld) [#/Vol] 10*3/uL Normal <0.11 [facility] Comment on above: Order Comment: Speci men Type: BLOOD SPECIMENOrdering Facility: [facility] Address: [address] [place] [address] Performed By: #### 5 7021-8 ####[facility] [id number] [place] [address] [place] Basophils/100 WBC (Bld) 0.3 % Normal [facility] Comment on above: Order Comment: Speci men Type: BLOOD SPECIMENOrdering Facility: [facility] Address: [address] [place] [address] Performed By: #### 5 7021-8 ####[facility] [id number] [place] [address] [place] Differential cell count method Nom (Bld) Auto Normal [facility] Comment on above: Order Comment: Speci men Type: BLOOD SPECIMENOrdering Facility: [facility] Address: [address] [place] [address] Performed By: #### 5 7021-8 ####[facility] [id number] [place] [address] [place] Eosinophils (Bld) [#/Vol] 0.19 10*3/uL Normal <0.46 [facility] Comment on above: Order Comment: Speci men Type: BLOOD SPECIMENOrdering Facility: [facility] Address: [address] [place] [address] Performed By: #### 5 7021-8 ####[facility] [id number] [place] [address] [place] Eosinophils/100 WBC (Bld) 2.5 % Normal [facility] Comment on above: Order Comment: Speci men Type: BLOOD SPECIMENOrdering Facility: [facility] Address: [address] [place] [address] Performed By: #### 5 7021-8 ####[facility] [id number] [place] [address] [place] Erythrocyte distribution width (RBC) [Ratio] 12.9 % Normal 11.5-15.0 [facility] Comment on above: Order Comment: Speci men Type: BLOOD SPECIMENOrdering Facility: [facility] Address: [address] [place] [address] Performed By: #### 5 7021-8 ####[facility] DASIAWNCLIA [id number] [place] [address] [place] Hematocrit (Bld) [Volume fraction] 23.9 % Low 39.0-51.0 [facility] Comment on above: Order Comment: Speci men Type: BLOOD SPECIMENOrdering Facility: [facility] Address: [address] [place] [address] Performed By: #### 5 7021-8 ####[facility] ERNCL[facility] [id number] [place] [address] [place] Hemoglobin (Bld) [Mass/Vol] 7.6 g/dL Low 13.0-17.0 [facility] Comment on above: Order Comment: Speci men Type: BLOOD SPECIMENOrdering Facility: [facility] Address: [address] [place] [address] Performed By: #### 5 7021-8 ####[facility] [id number] [place] [address] [place] Immature granulocytes (Bld) [#/Vol] 0.10 10*3/uL High <0.10 [facility] Comment on above: Order Comment: Speci men Type: BLOOD SPECIMENOrdering Facility: [facility] Address: [address] [place] [address] Performed By: #### 5 7021-8 ####[facility] ER[facility] [id number] [place] [address] [place] Immature granulocytes/100 WBC (Bld) 1.3 % Normal [facility] Comment on above: Order Comment: Speci men Type: BLOOD SPECIMENOrdering Facility: [facility] Address: [address] [place] [address] Performed By: #### 5 7021-8 ####[facility] ERNCL[facility] [id number] [place] [address] [place] Lymphocytes (Bld) [#/Vol] 1.53 10*3/uL Normal 1.00-4.00 [facility] Comment on above: Order Comment: Speci men Type: BLOOD SPECIMENOrdering Facility: [facility] Address: [address] [place] [address] Performed By: #### 5 7021-8 ####[facility] [id number] [place] [address] [place] Lymphocytes/100 WBC (Bld) 20.5 % Normal [facility] Comment on above: Order Comment: Speci men Type: BLOOD SPECIMENOrdering Facility: [facility] Address: [address] [place] [address] Performed By: #### 5 7021-8 ####[facility] [id number] [place] [address] [place] MCH (RBC) [Entitic mass] 28.4 pg Normal 26.0-34.0 [facility] Comment on above: Order Comment: Speci men Type: BLOOD SPECIMENOrdering Facility: [facility] Address: [address] [place] [address] Performed By: #### 5 7021-8 ####[facility] [id number] [place] [address] [place] MCHC (RBC) [Mass/Vol] 31.8 g/dL Normal 30.5-36.0 [facility] Comment on above: Order Comment: Speci men Type: BLOOD SPECIMENOrdering Facility: [facility] Address: [address] [place] [address] Performed By: #### 5 7021-8 ####[facility] ERNCLI [id number] [place] [address] [place] MCV (RBC) [Entitic vol] 89.2 fL Normal 80.0-100.0 [facility] Comment on above: Order Comment: Speci men Type: BLOOD SPECIMENOrdering Facility: [facility] Address: [address] [place] [address] Performed By: #### 5 7021-8 ####[facility] [id number] [place] [address] [place] Monocytes (Bld) [#/Vol] 0.46 10*3/uL Normal <0.87 [facility] Comment on above: Order Comment: Speci men Type: BLOOD SPECIMENOrdering Facility: [facility] Address: [address] [place] [address] Performed By: #### 5 7021-8 ####[facility] [id number] [place] [address] [place] Monocytes/100 WBC (Bld) 6.2 % Normal [facility] Comment on above: Order Comment: Speci men Type: BLOOD SPECIMENOrdering Facility: [facility] Address: [address] [place] [address] Performed By: #### 5 7021-8 ####[facility] [id number] [place] [address] [place] Neutrophils (Bld) [#/Vol] 5.17 10*3/uL Normal 1.45-7.50 [facility] Comment on above: Order Comment: Speci men Type: BLOOD SPECIMENOrdering Facility: [facility] Address: [address] [place] [address] Performed By: #### 5 7021-8 ####[facility] [id number] [place] [address] [place] Neutrophils/100 WBC (Bld) 69.2 % Normal [facility] Comment on above: Order Comment: Speci men Type: BLOOD SPECIMENOrdering Facility: [facility] Address: [address] [place] [address] Performed By: #### 5 7021-8 ####[facility] [id number] [place] [address] [place] Nucleated RBC (Bld) [#/Vol] 10*3/uL Normal <0.01 [facility] Comment on above: Order Comment: Speci men Type: BLOOD SPECIMENOrdering Facility: [facility] Address: [address] [place] [address] Performed By: #### 5 7021-8 ####[facility] [id number] [place] [address] [place] Nucleated RBC/100 WBC (Bld) [Ratio] 0.0 /100 WBC Normal [facility] Comment on above: Order Comment: Speci men Type: BLOOD SPECIMENOrdering Facility: [facility] Address: [address] [place] [address] Performed By: #### 5 7021-8 ####[facility]LI [id number] [place] [address] [place] Platelet mean volume (Bld) [Entitic vol] 9.1 fL Normal 9.0-12.7 [facility] Comment on above: Order Comment: Speci men Type: BLOOD SPECIMENOrdering Facility: [facility] Address: [address] [place] [address] Performed By: #### 5 7021-8 ####[facility] [id number] [place] [address] [place] Platelets (Bld) [#/Vol] 212 10*3/uL Normal 150-400 [facility] Comment on above: Order Comment: Speci men Type: BLOOD SPECIMENOrdering Facility: [facility] Address: [address] [place] [address] Performed By: #### 5 7021-8 ####[facility] [id number] [place] [address] [place] RBC (Bld) [#/Vol] 2.68 10*6/uL Low 4.20-6.00 [facility] Comment on above: Order Comment: Speci men Type: BLOOD SPECIMENOrdering Facility: [facility] Address: [address] [place] [address] Performed By: #### 5 7021-8 ####[facility] ERMIRACLELIA [id number] [place] [address] [place] WBC (Bld) [#/Vol] 7.47 10*3/uL Normal 3.70-11.00 [facility] Comment on above: Order Comment: Speci men Type: BLOOD SPECIMENOrdering Facility: [facility] Address: [address] [place] [address] Performed By: #### 5 7021-8 ####[facility] [id number] [place] [address] [place] CNPNon 12-12-2024 CNPN Normal [facility] CBC W Auto Differential pane l (Bld)on 12-11-2024 Basophils (Bld) [#/Vol] 10*3/uL Normal <0.11 [facility] Comment on above: Order Comment: Speci men Type: BLOOD SPECIMENOrdering Facility: [facility] Address: [address] [place] [address] Performed By: #### 5 7021-8 ####[facility]ENTERL[facility] [id number] [place] [address] [place] Basophils/100 WBC (Bld) 0.4 % Normal [facility] Comment on above: Order Comment: Speci men Type: BLOOD SPECIMENOrdering Facility: [facility] Address: [address] [place] [address] Performed By: #### 5 7021-8 ####[facility] [id number] [place] [address] [place] Differential cell count method Nom (Bld) Auto Normal [facility] Comment on above: Order Comment: Speci men Type: BLOOD SPECIMENOrdering Facility: [facility] Address: [address] [place] [address] Performed By: #### 5 7021-8 ####[facility] [id number] [place] [address] [place] Eosinophils (Bld) [#/Vol] 0.15 10*3/uL Normal <0.46 [facility] Comment on above: Order Comment: Speci men Type: BLOOD SPECIMENOrdering Facility: [facility] Address: [address] [place] [address] Performed By: #### 5 7021-8 ####[facility] [id number] [place] [address] [place] Eosinophils/100 WBC (Bld) 2.8 % Normal [facility] Comment on above: Order Comment: Speci men Type: BLOOD SPECIMENOrdering Facility: [facility] Address: [address] [place] [address] Performed By: #### 5 7021-8 ####[facility] [id number] [place] [address] [place] Erythrocyte distribution width (RBC) [Ratio] 12.6 % Normal 11.5-15.0 [facility] Comment on above: Order Comment: Speci men Type: BLOOD SPECIMENOrdering Facility: [facility] Address: [address] [place] [address] Performed By: #### 5 7021-8 ####[facility] [id number] [place] [address] [place] Hematocrit (Bld) [Volume fraction] 23.9 % Low 39.0-51.0 [facility] Comment on above: Order Comment: Speci men Type: BLOOD SPECIMENOrdering Facility: [facility] Address: [address] [place] [address] Performed By: #### 5 7021-8 ####[facility] STEVEMakaylaNCNIKKI [id number] [place] [address] [place] Hemoglobin (Bld) [Mass/Vol] 7.7 g/dL Low 13.0-17.0 [facility] Comment on above: Order Comment: Speci men Type: BLOOD SPECIMENOrdering Facility: [facility] Address: [address] [place] [address] Performed By: #### 5 7021-8 ####[facility] ERNCEstephania [id number] [place] [address] [place] Immature granulocytes (Bld) [#/Vol] 0.05 10*3/uL Normal <0.10 [facility] Comment on above: Order Comment: Speci men Type: BLOOD SPECIMENOrdering Facility: [facility] Address: [address] [place] [address] Performed By: #### 5 7021-8 ####[facility] ERNCL[facility] [id number] [place] [address] [place] Immature granulocytes/100 WBC (Bld) 0.9 % Normal [facility] Comment on above: Order Comment: Speci men Type: BLOOD SPECIMENOrdering Facility: [facility] Address: [address] [place], [place] [address] Performed By: #### 5 7021-8 ####[facility] ER[facility]CL[facility] [id number] [place] [address] [place] Lymphocytes (Bld) [#/Vol] 1.28 10*3/uL Normal 1.00-4.00 [facility] Comment on above: Order Comment: Speci men Type: BLOOD SPECIMENOrdering Facility: [facility] Address: [address] [place] [address] Performed By: #### 5 7021-8 ####[facility] ERMIRACLELIA [id number] [place] [address] [place] Lymphocytes/100 WBC (Bld) 23.7 % Normal [facility] Comment on above: Order Comment: Speci men Type: BLOOD SPECIMENOrdering Facility: [facility] Address: [address] [place] [address] Performed By: #### 5 7021-8 ####[facility] CENTERFRIDA [id number] [place] [address] [place] MCH (RBC) [Entitic mass] 28.3 pg Normal 26.0-34.0 [facility] Comment on above: Order Comment: Speci men Type: BLOOD SPECIMENOrdering Facility: [facility] Address: [address] [place] [address] Performed By: #### 5 7021-8 ####[facility] [id number] [place] [address] [place] MCHC (RBC) [Mass/Vol] 32.2 g/dL Normal 30.5-36.0 [facility] Comment on above: Order Comment: Speci men Type: BLOOD SPECIMENOrdering Facility: [facility] Address: [address] [place] [address] Performed By: #### 5 7021-8 ####[facility]ENTERL[facility] [id number] [place] [address] [place] MCV (RBC) [Entitic vol] 87.9 fL Normal 80.0-100.0 [facility] Comment on above: Order Comment: Speci men Type: BLOOD SPECIMENOrdering Facility: [facility] Address: [address] [place] [address] Performed By: #### 5 7021-8 ####[facility] [id number] [place] [address] [place] Monocytes (Bld) [#/Vol] 0.41 10*3/uL Normal <0.87 [facility] Comment on above: Order Comment: Speci men Type: BLOOD SPECIMENOrdering Facility: [facility] Address: [address] [place] [address] Performed By: #### 5 7021-8 ####[facility] HOSPITALWMALIA [id number] [place] [address] [place] Monocytes/100 WBC (Bld) 7.6 % Normal [facility] Comment on above: Order Comment: Speci men Type: BLOOD SPECIMENOrdering Facility: [facility] Address: [address] [place] [address] Performed By: #### 5 7021-8 ####[facility] [id number] [place] [address] [place] Neutrophils (Bld) [#/Vol] 3.48 10*3/uL Normal 1.45-7.50 [facility] Comment on above: Order Comment: Speci men Type: BLOOD SPECIMENOrdering Facility: [facility] Address: [address] [place] [address] Performed By: #### 5 7021-8 ####[facility] [id number] [place] [address] [place] Neutrophils/100 WBC (Bld) 64.6 % Normal [facility] Comment on above: Order Comment: Speci men Type: BLOOD SPECIMENOrdering Facility: [facility] Address: [address] [place] [address] Performed By: #### 5 7021-8 ####[facility] [id number] [place] [address] [place] Nucleated RBC (Bld) [#/Vol] 10*3/uL Normal <0.01 [facility] Comment on above: Order Comment: Speci men Type: BLOOD SPECIMENOrdering Facility: [facility] Address: [address] [place] [address] Performed By: #### 5 7021-8 ####[facility] RIVAS [id number] [place] [address] [place] Nucleated RBC/100 WBC (Bld) [Ratio] 0.0 /100 WBC Normal [facility] Comment on above: Order Comment: Speci men Type: BLOOD SPECIMENOrdering Facility: [facility] Address: [address] [place] [address] Performed By: #### 5 7021-8 ####[facility] STEVEALTA VISTANCNIKKI [id number] [place] [address] [place] Platelet mean volume (Bld) [Entitic vol] 9.1 fL Normal 9.0-12.7 [facility] Comment on above: Order Comment: Speci men Type: BLOOD SPECIMENOrdering Facility: [facility] Address: [address] [place] [address] Performed By: #### 5 7021-8 ####[facility] STEVEALTA VISTANCFRIDAA [id number] [place] [address] [place] Platelets (Bld) [#/Vol] 222 10*3/uL Normal 150-400 [facility] Comment on above: Order Comment: Speci men Type: BLOOD SPECIMENOrdering Facility: [facility] Address: [address] [place] [address] Performed By: #### 5 7021-8 ####[facility] [id number] [place] [address] [place] RBC (Bld) [#/Vol] 2.72 10*6/uL Low 4.20-6.00 [facility] [place] Comment on above: Order Comment: Speci men Type: BLOOD SPECIMENOrdering Facility: [facility] Address: [address] [place], [place] [address] Performed By: #### 5 7021-8 ####[facility] [id number] [place] [address] [place] WBC (Bld) [#/Vol] 5.39 10*3/uL Normal 3.70-11.00 [facility] [place] Comment on above: Order Comment: Speci men Type: BLOOD SPECIMENOrdering Facility: [facility] Address: [address] [place] [address] Performed By: #### 5 7021-8 ####[facility] [id number] [place] [address] [place] CNOVSPon 12-11-2024 CNOVSP Normal [facility] CNPNon 12-11-2024 CNPN Normal [facility] Ferritin SerPl-mCncon 2024 Ferritin [Mass/Vol] 335.0 ng/mL Normal 30.3-565.7 [facility] Comment on above: Order Comment: Speci men Type: BLOOD SPECIMENOrdering Facility: [facility] Address: [address] [place] [address] [place] [address] Performed By: #### 5 0190-8, 2275-11 ####[place] [facility]CL[facility] [id number] [place] [address] [place] Iron and Iron binding capaci ty panelon 12-11-2024 Iron [Mass/Vol] 56 ug/dL Normal 41-186 [facility] Comment on above: Order Comment: Speci men Type: BLOOD SPECIMENOrdering Facility: [facility] Address: [address] [place] [address] Performed By: #### 5 0190-8, 2275- ####[place] [facility] [id number] [place] [address] [place] Iron binding capacity [Mass/Vol] 216 ug/dL Low 232-386 [facility] Comment on above: Order Comment: Speci men Type: BLOOD SPECIMENOrdering Facility: [facility] Address: [address] [place] [address] Performed By: #### 5 0190-8, 2276-4 ####[place] [facility] [id number] [place] [address] [place] Iron/TIBC [Molar ratio] 25.9 % Normal 15.0-57.0 [facility] Comment on above: Order Comment: Speci men Type: BLOOD SPECIMENOrdering Facility: [facility] Address: [address] [place] [address] Performed By: #### 5 0190-8, 2276-4 ####[place] [facility] [id number] [place] [address] [place] CBC W Auto Differential pane l (Bld)on 12-04-2024 Basophils (Bld) [#/Vol] 10*3/uL Normal <0.11 [facility] Comment on above: Order Comment: Speci men Type: BLOOD SPECIMENOrdering Facility: [facility] Address: [address] [place] [address] Performed By: #### 5 7021-8 ####[facility] [id number] [place] [address] [place] Basophils/100 WBC (Bld) 0.3 % Normal [facility] Comment on above: Order Comment: Speci men Type: BLOOD SPECIMENOrdering Facility: [facility] Address: [address] [place] [address] Performed By: #### 5 7021-8 ####[facility] [id number] [place] [address] [place] Differential cell count method Nom (Bld) Auto Normal [facility] Comment on above: Order Comment: Speci men Type: BLOOD SPECIMENOrdering Facility: [facility] Address: [address] [place] [address] Performed By: #### 5 7021-8 ####[facility] MILLWNCLIA [id number] [place] [address] [place] Eosinophils (Bld) [#/Vol] 0.14 10*3/uL Normal <0.46 [facility] Comment on above: Order Comment: Speci men Type: BLOOD SPECIMENOrdering Facility: [facility] Address: [address] [place] [address] Performed By: #### 5 7021-8 ####[facility] [id number] [place] [address] [place] Eosinophils/100 WBC (Bld) 2.4 % Normal [facility] Comment on above: Order Comment: Speci men Type: BLOOD SPECIMENOrdering Facility: [facility] Address: [address] [place] [address] Performed By: #### 5 7021-8 ####[facility] [id number] [place] [address] [place] Erythrocyte distribution width (RBC) [Ratio] 12.6 % Normal 11.5-15.0 [facility] Comment on above: Order Comment: Speci men Type: BLOOD SPECIMENOrdering Facility: [facility] Address: [address] [place] [address] Performed By: #### 5 7021-8 ####[facility] [id number] [place] [address] [place] Hematocrit (Bld) [Volume fraction] 23.4 % Low 39.0-51.0 [facility] Comment on above: Order Comment: Speci men Type: BLOOD SPECIMENOrdering Facility: [facility] Address: [address] [place] [address] Performed By: #### 5 7021-8 ####[facility] [id number] [place] [id number] [place] Hemoglobin (Bld) [Mass/Vol] 7.6 g/dL Low 13.0-17.0 [facility] Comment on above: Order Comment: Speci men Type: BLOOD SPECIMENOrdering Facility: [facility] Address: [address] [place] [address] Performed By: #### 5 7021-8 ####[facility] [id number] [place] [address] [place] Immature granulocytes (Bld) [#/Vol] 0.04 10*3/uL Normal <0.10 [facility] Comment on above: Order Comment: Speci men Type: BLOOD SPECIMENOrdering Facility: [facility] Address: [address] [place] [address] Performed By: #### 5 7021-8 ####[facility]ITAL[facility] [id number] [place] [address] [place] Immature granulocytes/100 WBC (Bld) 0.7 % Normal [facility] Comment on above: Order Comment: Speci men Type: BLOOD SPECIMENOrdering Facility: [facility] Address: [address] [place] [address] Performed By: #### 5 7021-8 ####[facility] [id number] [place] [address] [place] Lymphocytes (Bld) [#/Vol] 1.33 10*3/uL Normal 1.00-4.00 [facility] Comment on above: Order Comment: Speci men Type: BLOOD SPECIMENOrdering Facility: [facility] Address: [address] [place] [address] Performed By: #### 5 7021-8 ####[facility] [id number] [place] [address] [place] Lymphocytes/100 WBC (Bld) 22.9 % Normal [facility] Comment on above: Order Comment: Speci men Type: BLOOD SPECIMENOrdering Facility: [facility] Address: [address] [place], [place] [address] Performed By: #### 5 7021-8 ####[facility] RIVAS [id number] [place] [address] [place] MCH (RBC) [Entitic mass] 28.5 pg Normal 26.0-34.0 [facility] Comment on above: Order Comment: Speci men Type: BLOOD SPECIMENOrdering Facility: [facility] Address: [address] [place], [place] [address] Performed By: #### 5 7021-8 ####[facility] ERNCEstephania [id number] [place] [address] [place] MCHC (RBC) [Mass/Vol] 32.5 g/dL Normal 30.5-36.0 [facility] Comment on above: Order Comment: Speci men Type: BLOOD SPECIMENOrdering Facility: [facility] Address: [address] [place], [place] [address] Performed By: #### 5 7021-8 ####[facility] [id number] [place] [address] [place] MCV (RBC) [Entitic vol] 87.6 fL Normal 80.0-100.0 [facility] Comment on above: Order Comment: Speci men Type: BLOOD SPECIMENOrdering Facility: [facility] Address: [address] [place], [place] [address] Performed By: #### 5 7021-8 ####[facility] [id number] [place] [address] [place] Monocytes (Bld) [#/Vol] 0.36 10*3/uL Normal <0.87 [facility] Comment on above: Order Comment: Speci men Type: BLOOD SPECIMENOrdering Facility: [facility] Address: [address] [place], [place] [address] Performed By: #### 5 7021-8 ####[facility] MILLWNCLIA [id number] [place] [address] [place] Monocytes/100 WBC (Bld) 6.2 % Normal [facility] Comment on above: Order Comment: Speci men Type: BLOOD SPECIMENOrdering Facility: [facility] Address: [address] [place] [address] Performed By: #### 5 7021-8 ####[facility] ERNCL[facility] [id number] [place] [address] [place] Neutrophils (Bld) [#/Vol] 3.93 10*3/uL Normal 1.45-7.50 [facility] Comment on above: Order Comment: Speci men Type: BLOOD SPECIMENOrdering Facility: [facility] Address: [address] [place] [address] Performed By: #### 5 7021-8 ####[facility] [id number] [place] [address] [place] Neutrophils/100 WBC (Bld) 67.5 % Normal [facility] Comment on above: Order Comment: Speci men Type: BLOOD SPECIMENOrdering Facility: [facility] Address: [address] [place] [address] Performed By: #### 5 7021-8 ####[facility] [id number] [place] [address] [place] Nucleated RBC (Bld) [#/Vol] 10*3/uL Normal <0.01 [facility] Comment on above: Order Comment: Speci men Type: BLOOD SPECIMENOrdering Facility: [facility] Address: [address] [place] [address] Performed By: #### 5 7021-8 ####[facility] ERNCA [id number] [place] [address] [place] Nucleated RBC/100 WBC (Bld) [Ratio] 0.0 /100 WBC Normal [facility] Comment on above: Order Comment: Speci men Type: BLOOD SPECIMENOrdering Facility: [facility] Address: [address] [place] [address] Performed By: #### 5 7021-8 ####[facility] [id number] [place] [address] [place] Platelet mean volume (Bld) [Entitic vol] 9.4 fL Normal 9.0-12.7 [facility] Comment on above: Order Comment: Speci men Type: BLOOD SPECIMENOrdering Facility: [facility] Address: [address] [place] [address] Performed By: #### 5 7021-8 ####[facility]NCLA[facility] [id number] [place] [address] [place] Platelets (Bld) [#/Vol] 196 10*3/uL Normal 150-400 [facility] Comment on above: Order Comment: Speci men Type: BLOOD SPECIMENOrdering Facility: [facility] Address: [address] [place] [address] Performed By: #### 5 7021-8 ####[facility] ERNCL[facility] [id number] [place] [address] [place] RBC (Bld) [#/Vol] 2.67 10*6/uL Low 4.20-6.00 [facility] Comment on above: Order Comment: Speci men Type: BLOOD SPECIMENOrdering Facility: [facility] Address: [address] [place] [address] Performed By: #### 5 7021-8 ####[facility] [id number] [place] [address] [place] WBC (Bld) [#/Vol] 5.82 10*3/uL Normal 3.70-11.00 [facility] [place] Comment on above: Order Comment: Speci men Type: BLOOD SPECIMENOrdering Facility: [facility] Address: [address] [place] [address] Performed By: #### 5 7021-8 ####[facility] H[facility]ITALSLIA [id number] [place] [address] [place] CYSTATIN Con 12-04-2024 Cystatin C [Mass/Vol] 3.31 mg/L High 0.61-0.95 [facility] Comment on above: Order Comment: Speci men Type: BLOOD SPECIMENOrdering Facility: [facility] Address: [address] [place] [address] Performed By: #### C YSTC ####[place] LABCL[facility] [id number] [address] [place] CYSTATIN C EGFR 15 mL/min/1.73m??? Low >=60 [facility] Comment on above: Order Comment: Speci men Type: BLOOD SPECIMENOrdering Facility: [facility] Address: [address] [place] [address] Result Comment: María Elena mated Glomerular Filtration Rate (eGFR) is calculated using the 2012 CKD-EPI cystatin C equation. This equation utilizes serum cystatin C, sex, and age as parameters. The cystatin C assay has traceable calibration to the ERM-DA471/IF reference material. Refer to KDIGO guidelines for clinical interpretation. In patients with unstable renal function, e.g. those with acute kidney injury, the eGFR may not accurately reflect actual GFR. Performed By: #### C YSTC ####[facility] [id number] [place] [address] [place] Prot/Creat Uron 12-04-2024 Protein/Creatinine (U) [Mass ratio] 1.08 mg/mg High <0.15 [facility] Comment on above: Order Comment: Speci men Type: URINE SPECIMENOrdering Facility: [facility] Address: [address] [place] [address] Result Comment: Adul t Proteinuria Categories:<0.15 mg/mg is considered normal to mildly increased0.15 - 0.50 mg/mg is considered moderately increased>0.50 mg/mg is considered severely increasedKDIGO. (2013). KDIGO 2012 Clinical Practice Guideline for the Evaluation and Management of Chronic Kidney Disease. Official Journal of the International Society of Nephrology, 3(1), 1-150. Performed By: #### 2 890-2 ####[facility] [id number] [place] [id number] [place] Protein/Creatinine (U) [Mass ratio]on 12-04-2024 Creatinine (U) [Mass/Vol] 74.7 mg/dL Normal 20.0-300.0 [facility] Comment on above: Order Comment: Speci men Type: URINE SPECIMENOrdering Facility: [facility] Address: [address] [place] [address] Performed By: #### 2 890-2 ####[facility] [id number] [place] [id number] [place] Protein (U) [Mass/Vol] 81 mg/dL High 0-20 [facility] Comment on above: Order Comment: Speci men Type: URINE SPECIMENOrdering Facility: [facility] Address: [address] [place], [place] [address] Performed By: #### 2 890-2 ####[facility] [id number] [place] [id number] [place] Renal function 2000 panelon 12-04-2024 Albumin [Mass/Vol] 3.9 g/dL Normal 3.9-4.9 [facility] Comment on above: Order Comment: Speci men Type: BLOOD SPECIMENOrdering Facility: [facility] Address: [address] [place], [place] [address] Performed By: #### 2 4362-6 ####[facility] [id number] [place] [address] [place] Anion gap [Moles/Vol] 11 mmol/L Normal 8-15 [facility] Comment on above: Order Comment: Speci men Type: BLOOD SPECIMENOrdering Facility: [facility] Address: [address] [place] [address] Performed By: #### 2 4362-6 ####[facility] MILLTOWNCLIA [id number] [place] [address] [place] Calcium [Mass/Vol] 9.1 mg/dL Normal 8.5-10.2 [facility] Comment on above: Order Comment: Speci men Type: BLOOD SPECIMENOrdering Facility: [facility] Address: [address] [place] [address] Performed By: #### 2 4362-6 ####[facility] MILLWNCLIA [id number] [place] [address] [place] Chloride [Moles/Vol] 106 mmol/L Normal 98-107 [facility] Comment on above: Order Comment: Speci men Type: BLOOD SPECIMENOrdering Facility: [facility] Address: [address] [place] [address] Performed By: #### 2 4362-6 ####[facility] MILLWNCLIA [id number] [place] [address] [place] CO2 [Moles/Vol] 20 mmol/L Low 22-30 [facility] Comment on above: Order Comment: Speci men Type: BLOOD SPECIMENOrdering Facility: [facility] Address: [address] [place] [address] Performed By: #### 2 4362-6 ####[facility] MILLALTA VISTANCLIA [id number] [place] [address] [place] Creatinine [Mass/Vol] 4.56 mg/dL High 0.73-1.22 [facility] Comment on above: Order Comment: Speci men Type: BLOOD SPECIMENOrdering Facility: [facility] Address: [address] [place] [address] Performed By: #### 2 4362-6 ####[facility] [id number] [place] [address] [place] Creatinine and Glomerular filtration rate.predicted panel (S/P/Bld) 13 mL/min/1.73m??? Low >=60 [facility] Comment on above: Order Comment: Speci men Type: BLOOD SPECIMENOrdering Facility: [facility] Address: [address] [place] [address] Result Comment: María Elena mated Glomerular Filtration Rate (eGFR) is calculated using the 2020 CKD-EPI creatinine equation. This equation utilizes serum creatinine, sex, and age as parameters. The creatinine assay has traceable calibration to isotope dilution-mass spectrometry. Refer to KDIGO guidelines for clinical interpretation. In patients with unstable renal function, e.g. those with acute kidney injury, the eGFR may not accurately reflect actual GFR. Performed By: #### 2 4362-6 ####[facility] [id number] [place] [address] [place] Glucose [Mass/Vol] 134 mg/dL High 74-99 [facility] Comment on above: Order Comment: Pj jose manuel Type: BLOOD SPECIMENOrdering Facility: [facility] Address: [address] [place] [address] Result Comment: The [place] Diabetes Association (ADA) provides guidance for cutoff values for fasting glucose and random glucose. The ADA defines fasting as no caloric intake for at least 8 hours. Fasting plasma glucose results between 100 to 125 mg/dL indicate increased risk for diabetes (prediabetes).Fasting plasma glucose results greater than or equal to 126 mg/dL meet the criteria for diagnosis of diabetes. In the absence of unequivocal hyperglycemia, results should be confirmed by repeat testing. In a patient with classic symptoms of hyperglycemia or hyperglycemic crisis, random plasma glucose results greater than or equal to 200 mg/dL meet the criteria for diagnosis of diabetes.Reference: Standards of Medical Care in Diabetes 2016, [place] Diabetes Association. Diabetes Care. 2016.39(Suppl 1). Performed By: #### 2 4362-6 ####[facility] MILLTOWNCLIA [id number] [place] [address] [place] Phosphate [Mass/Vol] 3.9 mg/dL Normal 2.7-4.8 [facility] Comment on above: Order Comment: Speci men Type: BLOOD SPECIMENOrdering Facility: [facility] Address: [address] [place] [address] Performed By: #### 2 4362-6 ####[facility] MILLTOWMIRACLELIA [id number] [place] [address] [place] Potassium [Moles/Vol] 4.8 mmol/L Normal 3.7-5.1 [facility] Comment on above: Order Comment: Speci men Type: BLOOD SPECIMENOrdering Facility: [facility] Address: [address] [place] [address] Performed By: #### 2 4362-6 ####[facility] ERMIRACLELIA [id number] [place] [address] [place] Sodium [Moles/Vol] 137 mmol/L Normal 136-144 [facility] Comment on above: Order Comment: Speci men Type: BLOOD SPECIMENOrdering Facility: [facility] Address: [address] [place] [address] Performed By: #### 2 4362-6 ####[facility] MILLTOWNCLIA [id number] [place] [address] [place] Urea nitrogen [Mass/Vol] 68 mg/dL High 9-24 [facility] Comment on above: Order Comment: Speci men Type: BLOOD SPECIMENOrdering Facility: [facility] Address: [address] [place], [place] [address] Performed By: #### 2 4362-6 ####[facility] MILLWNCLIA [id number] [place] [address] [place] CNPNon 12-03-2024 CNPN Normal [facility] CNPNon 11-26-2024 CNPN Normal [facility] CBC W Auto Differential pane l (Bld)on 11-20-2024 Basophils (Bld) [#/Vol] 10*3/uL Normal <0.11 [facility] Comment on above: Order Comment: Speci men Type: BLOOD SPECIMENOrdering Facility: [facility] Address: [address] [place] [address] Performed By: #### 5 7021-8 ####[facility] [id number] [place] [address] [place] Basophils/100 WBC (Bld) 0.2 % Normal [facility] Comment on above: Order Comment: Speci men Type: BLOOD SPECIMENOrdering Facility: [facility] Address: [address] [place] [address] Performed By: #### 5 7021-8 ####[facility] [id number] [place] [address] [place] Differential cell count method Nom (Bld) Auto Normal [facility] Comment on above: Order Comment: Speci men Type: BLOOD SPECIMENOrdering Facility: [facility] Address: [address] [place] [address] Performed By: #### 5 7021-8 ####[facility] [id number] [facility] [place] [address] [place] Eosinophils (Bld) [#/Vol] 0.11 10*3/uL Normal <0.46 [facility] Comment on above: Order Comment: Speci men Type: BLOOD SPECIMENOrdering Facility: [facility] Address: [address] [place] [address] Performed By: #### 5 7021-8 ####[facility] [id number] [facility] [place] [address] [place] Eosinophils/100 WBC (Bld) 2.2 % Normal [facility] Comment on above: Order Comment: Speci men Type: BLOOD SPECIMENOrdering Facility: [facility] Address: [address] [place] [address] Performed By: #### 5 7021-8 ####[facility] [id number] [place] [address] [place] Erythrocyte distribution width (RBC) [Ratio] 12.4 % Normal 11.5-15.0 [facility] Comment on above: Order Comment: Speci men Type: BLOOD SPECIMENOrdering Facility: [facility] Address: [address] [place] [address] Performed By: #### 5 7021-8 ####[facility] [id number] [address], [place] [address] [place] Hematocrit (Bld) [Volume fraction] 23.3 % Low 39.0-51.0 [facility] Comment on above: Order Comment: Speci men Type: BLOOD SPECIMENOrdering Facility: [facility] Address: [address] [place] [address] Performed By: #### 5 7021-8 ####[facility] [id number] [address], [place] [address] [place] Hemoglobin (Bld) [Mass/Vol] 7.8 g/dL Low 13.0-17.0 [facility] Comment on above: Order Comment: Speci men Type: BLOOD SPECIMENOrdering Facility: [facility] Address: [address] [place] [address] Performed By: #### 5 7021-8 ####[facility] [id number] [place] [address] [place] Immature granulocytes (Bld) [#/Vol] 0.03 10*3/uL Normal <0.10 [facility] Comment on above: Order Comment: Speci men Type: BLOOD SPECIMENOrdering Facility: [facility] Address: [address] [place] [address] Performed By: #### 5 7021-8 ####[facility] [id number] [place] [address] [place] Immature granulocytes/100 WBC (Bld) 0.6 % Normal [facility] Comment on above: Order Comment: Speci men Type: BLOOD SPECIMENOrdering Facility: [facility] Address: [address] [place] [address] Performed By: #### 5 7021-8 ####[facility] [id number] [place] [address] [place] Lymphocytes (Bld) [#/Vol] 0.75 10*3/uL Low 1.00-4.00 [facility] Comment on above: Order Comment: Speci men Type: BLOOD SPECIMENOrdering Facility: [facility] Address: [address] [place] [address] Performed By: #### 5 7021-8 ####[facility] [id number] [place] [address] [place] Lymphocytes/100 WBC (Bld) 15.2 % Normal [facility] Comment on above: Order Comment: Speci men Type: BLOOD SPECIMENOrdering Facility: [facility] Address: [address] [place] [address] Performed By: #### 5 7021-8 ####[facility] [id number] [place] [address] [place] MCH (RBC) [Entitic mass] 30.2 pg Normal 26.0-34.0 [facility] Comment on above: Order Comment: Speci men Type: BLOOD SPECIMENOrdering Facility: [facility] Address: [address] [place] [address] Performed By: #### 5 7021-8 ####[facility] [id number] [place] [address] [place] MCHC (RBC) [Mass/Vol] 33.5 g/dL Normal 30.5-36.0 [facility] Comment on above: Order Comment: Speci men Type: BLOOD SPECIMENOrdering Facility: [facility] Address: [address] [place] [address] Performed By: #### 5 7021-8 ####[facility] [facility] [id number] [place] [address] [place] MCV (RBC) [Entitic vol] 90.3 fL Normal 80.0-100.0 [facility] Comment on above: Order Comment: Speci men Type: BLOOD SPECIMENOrdering Facility: [facility] Address: [address] [place] [address] Performed By: #### 5 7021-8 ####[facility] [id number] [place] [address] [place] Monocytes (Bld) [#/Vol] 0.35 10*3/uL Normal <0.87 [facility] Comment on above: Order Comment: Speci men Type: BLOOD SPECIMENOrdering Facility: [facility] Address: [address] [place] [address] Performed By: #### 5 7021-8 ####[facility] [facility] [id number] [place] [address] [place] Monocytes/100 WBC (Bld) 7.1 % Normal [facility] Comment on above: Order Comment: Speci men Type: BLOOD SPECIMENOrdering Facility: [facility] Address: [address] [place] [address] Performed By: #### 5 7021-8 ####[facility] [facility] [id number] [place] [address] [place] Neutrophils (Bld) [#/Vol] 3.69 10*3/uL Normal 1.45-7.50 [facility] Comment on above: Order Comment: Speci men Type: BLOOD SPECIMENOrdering Facility: [facility] Address: [address] [place] [address] Performed By: #### 5 7021-8 ####[facility] [id number] [place] [address] [place] Neutrophils/100 WBC (Bld) 74.7 % Normal [facility] Comment on above: Order Comment: Speci men Type: BLOOD SPECIMENOrdering Facility: [facility] Address: [address] [place] [address] Performed By: #### 5 7021-8 ####[facility] [id number] [place] [address] [place] Nucleated RBC (Bld) [#/Vol] 10*3/uL Normal <0.01 [facility] Comment on above: Order Comment: Speci men Type: BLOOD SPECIMENOrdering Facility: [facility] Address: [address] [place] [address] Performed By: #### 5 7021-8 ####[facility] [id number] [place] [address] [place] Nucleated RBC/100 WBC (Bld) [Ratio] 0.0 /100 WBC Normal [facility] Comment on above: Order Comment: Speci men Type: BLOOD SPECIMENOrdering Facility: [facility] Address: [address] [place] [address] Performed By: #### 5 7021-8 ####[facility] [id number] [place] [address] [place] Platelet mean volume (Bld) [Entitic vol] 10.3 fL Normal 9.0-12.7 [facility] Comment on above: Order Comment: Speci men Type: BLOOD SPECIMENOrdering Facility: [facility] Address: [address] [place] [address] Performed By: #### 5 7021-8 ####[facility] [facility] [id number] [address] [address] [place] Platelets (Bld) [#/Vol] 202 10*3/uL Normal 150-400 [facility] Comment on above: Order Comment: Speci men Type: BLOOD SPECIMENOrdering Facility: [facility] Address: [address] [place] [address] Performed By: #### 5 7021-8 ####[facility] [id number] [place] [address] [place] RBC (Bld) [#/Vol] 2.58 10*6/uL Low 4.20-6.00 [facility] Comment on above: Order Comment: Speci men Type: BLOOD SPECIMENOrdering Facility: [facility] Address: [address] [place] [address] Performed By: #### 5 7021-8 ####[facility] [facility] [id number] [place] [address] [place] WBC (Bld) [#/Vol] 4.94 10*3/uL Normal 3.70-11.00 [facility] Comment on above: Order Comment: Speci men Type: BLOOD SPECIMENOrdering Facility: [facility] Address: [address] [place] [address] Performed By: #### 5 7021-8 ####[facility] [id number] [place] [address] [place] CYSTATIN Con 11-20-2024 Cystatin C [Mass/Vol] 3.26 mg/L High 0.61-0.95 [facility] Comment on above: Order Comment: Speci men Type: BLOOD SPECIMENOrdering Facility: [facility] Address: [address] [place] [address] Performed By: #### 2 4362-6, CYSTC ####[facility] [facility] [id number] [place] [address] [place] CYSTATIN C EGFR 16 mL/min/1.73m??? Low >=60 [facility] Comment on above: Order Comment: Speci men Type: BLOOD SPECIMENOrdering Facility: [facility] Address: [address] [place] [address] Result Comment: María Elena mated Glomerular Filtration Rate (eGFR) is calculated using the 2012 CKD-EPI cystatin C equation. This equation utilizes serum cystatin C, sex, and age as parameters. The cystatin C assay has traceable calibration to the [facility]-DA471/[facility] reference material. Refer to KDIGO guidelines for clinical interpretation. In patients with unstable renal function, e.g. those with acute kidney injury, the eGFR may not accurately reflect actual GFR. Performed By: #### 2 4362-6, CYSTC ####[facility] [facility] [id number] [place] [address] [place] Prot/Creat Uron 11-20-2024 Protein/Creatinine (U) [Mass ratio] 1.42 mg/mg High <0.15 [facility] Comment on above: Order Comment: Speci men Type: URINE SPECIMENOrdering Facility: [facility] Address: [address] [place] [address] Result Comment: Adul t Proteinuria Categories:<0.15 mg/mg is considered normal to mildly increased0.15 - 0.50 mg/mg is considered moderately increased>0.50 mg/mg is considered severely increasedKDIGO. (2013). KDIGO 2012 Clinical Practice Guideline for the Evaluation and Management of Chronic Kidney Disease. Official Journal of the International Society of Nephrology, 3(1), 1-150. Performed By: #### 2 890-2 ####[facility] [facility] [id number] [place] [id number] [place] Protein/Creatinine (U) [Mass ratio]on 11-20-2024 Creatinine (U) [Mass/Vol] 56.5 mg/dL Normal 20.0-300.0 [facility] Comment on above: Order Comment: Speci men Type: URINE SPECIMENOrdering Facility: [facility] Address: [address] [place] [address] Performed By: #### 2 890-2 ####[place] [facility] [id number] [facility] [address] [place] [address] [place] Protein (U) [Mass/Vol] 80 mg/dL High 0-20 [facility] Comment on above: Order Comment: Speci men Type: URINE SPECIMENOrdering Facility: [facility] Address: [address] [place] [address] Performed By: #### 2 890-2 ####[place] [facility] [id number] [facility]OL[facility]ERK [address] [place] [address] [place] Renal function 2000 panelon 11-20-2024 Albumin [Mass/Vol] 3.6 g/dL Low 3.9-4.9 [facility] Comment on above: Order Comment: Speci men Type: BLOOD SPECIMENOrdering Facility: [facility] Address: [address] [place] [address] Performed By: #### 2 4362-6, CYSTC ####[facility] [facility] [id number] [address] [place] [address] [place] Anion gap [Moles/Vol] 14 mmol/L Normal 8-15 [facility] Comment on above: Order Comment: Speci men Type: BLOOD SPECIMENOrdering Facility: [facility] Address: [address] [place] [address] Performed By: #### 2 4362-6, CYSTC ####[place] [facility] [id number] [facility] [address] [place] [address] [place] Calcium [Mass/Vol] 8.7 mg/dL Normal 8.5-10.2 [facility] Comment on above: Order Comment: Speci men Type: BLOOD SPECIMENOrdering Facility: [facility] Address: [address] [place], [place] [address] Performed By: #### 2 4362-6, CYSTC ####[facility] [facility] [id number] [address] [place] [address] [place] Chloride [Moles/Vol] 106 mmol/L Normal 98-107 [facility] Comment on above: Order Comment: Speci men Type: BLOOD SPECIMENOrdering Facility: [facility] Address: [address] [place] [address] Performed By: #### 2 4362-6, CYSTC ####[place] [facility] [id number] [place] [id number] [place] CO2 [Moles/Vol] 17 mmol/L Low 22-30 [facility] Comment on above: Order Comment: Speci men Type: BLOOD SPECIMENOrdering Facility: [facility] Address: [address] [place] [address] Performed By: #### 2 4362-6, CYSTC ####[facility] [facility] [id number] [place] [address] [place] Creatinine [Mass/Vol] 4.16 mg/dL High 0.73-1.22 [facility] Comment on above: Order Comment: Speci men Type: BLOOD SPECIMENOrdering Facility: [facility] Address: [address] [place] [address] Performed By: #### 2 4362-6, CYSTC ####[place] [facility] [id number] [place] [address] [place] Creatinine and Glomerular filtration rate.predicted panel (S/P/Bld) 15 mL/min/1.73m??? Low >=60 [facility] Comment on above: Order Comment: Speci men Type: BLOOD SPECIMENOrdering Facility: [facility] Address: [address] [place] [address] Result Comment: María Elena mated Glomerular Filtration Rate (eGFR) is calculated using the 2020 CKD-EPI creatinine equation. This equation utilizes serum creatinine, sex, and age as parameters. The creatinine assay has traceable calibration to isotope dilution-mass spectrometry. Refer to KDIGO guidelines for clinical interpretation. In patients with unstable renal function, e.g. those with acute kidney injury, the eGFR may not accurately reflect actual GFR. Performed By: #### 2 4362-6, CYSTC ####[place] [facility] [id number] [address] [address] [place] Glucose [Mass/Vol] 181 mg/dL High 74-99 [facility] Comment on above: Order Comment: Speci men Type: BLOOD SPECIMENOrdering Facility: [facility] Address: [address] [place] [id number] Result Comment: The [place] Diabetes Association (ADA) provides guidance for cutoff values for fasting glucose and random glucose. The ADA defines fasting as no caloric intake for at least 8 hours. Fasting plasma glucose results between 100 to 125 mg/dL indicate increased risk for diabetes (prediabetes).Fasting plasma glucose results greater than or equal to 126 mg/dL meet the criteria for diagnosis of diabetes. In the absence of unequivocal hyperglycemia, results should be confirmed by repeat testing. In a patient with classic symptoms of hyperglycemia or hyperglycemic crisis, random plasma glucose results greater than or equal to 200 mg/dL meet the criteria for diagnosis of diabetes.Reference: Standards of Medical Care in Diabetes 2016, [place] [employer]. Diabetes Care. 2016.39(Suppl 1). Performed By: #### 2 4362-6, CYSTC ####[place] [facility] [id number] [address] [address] [place] Phosphate [Mass/Vol] 3.6 mg/dL Normal 2.7-4.8 [facility] Comment on above: Order Comment: Speci men Type: BLOOD SPECIMENOrdering Facility: [facility] Address: [address] [place] [address] Performed By: #### 2 4362-6, CYSTC ####[place] [facility] [id number] [address] [address] [place] Potassium [Moles/Vol] 4.5 mmol/L Normal 3.7-5.1 [facility] Comment on above: Order Comment: Speci men Type: BLOOD SPECIMENOrdering Facility: [facility] Address: [address] [place] [address] Performed By: #### 2 4362-6, CYSTC ####[place] [facility] [id number] [address] [place] [address] [place] Sodium [Moles/Vol] 137 mmol/L Normal 136-144 [facility] Comment on above: Order Comment: Speci men Type: BLOOD SPECIMENOrdering Facility: [facility] Address: [address] [place] [address] Performed By: #### 2 4362-6, CYSTC ####[place] [facility] [id number] [address], [facility]95 [place] Urea nitrogen [Mass/Vol] 64 mg/dL High 9-24 [facility] Comment on above: Order Comment: Speci men Type: BLOOD SPECIMENOrdering Facility: [facility] Address: [address] [place] [address] Performed By: #### 2 4362-6, CYSTC ####[place] [facility] [id number] [address] [place] [address] [place] Urinalysis complete panel (U )on 11-20-2024 Bacteria LM.HPF (Urine sed) [#/Area] Negative Normal Negative [facility] Comment on above: Order Comment: Speci men Type: URINE SPECIMENOrdering Facility: [facility] Address: [address] [place] [address] Performed By: #### 2 4356-8 ####[place] [facility]CL[facility] [id number] [facility] [address] [place] [address] [place] Bilirubin Ql (U) Negative Normal Negative [facility] Comment on above: Order Comment: Speci men Type: URINE SPECIMENOrdering Facility: [facility] Address: [address] [place] [address] Performed By: #### 2 4356-8 ####[place] [facility] [id number] [address], [facility]95 [place] Clarity (Unsp spec) Clear Normal Clear [facility] Comment on above: Order Comment: Speci men Type: URINE SPECIMENOrdering Facility: [facility] Address: [facility] [place] [address] Performed By: #### 2 4356-8 ####[place] [facility] [id number] [address] [place] [address] [place] Color (U) Yellow Normal Yellow [facility] Comment on above: Order Comment: Speci men Type: URINE SPECIMENOrdering Facility: [facility] Address: [address] [place] [address] Performed By: #### 2 4356-8 ####[place] [facility] [id number] [address], [place] [address] [place] Epithelial cells LM.HPF (Urine sed) [#/Area] None Seen Normal [facility] Comment on above: Order Comment: Speci men Type: URINE SPECIMENOrdering Facility: [facility] Address: [address] [place] [address] Performed By: #### 2 4356-8 ####[place] [facility] [id number] [address], [facility]95 [place] Glucose Test strip (U) [Mass/Vol] Trace Abnormal Negative [facility] Comment on above: Order Comment: Speci men Type: URINE SPECIMENOrdering Facility: [facility] Address: [address] [place] [address] Performed By: #### 2 4356-8 ####[place] [facility] [id number] [address] [address] [place] Hemoglobin Ql (U) Negative Normal Negative [facility] Comment on above: Order Comment: Speci men Type: URINE SPECIMENOrdering Facility: [facility] Address: [address] [place], [place] [address] Performed By: #### 2 4356-8 ####[place] [facility] [id number] [address] [place] [address] [place] Hyaline casts (Urine sed) [#/Area] 0 /[LPF] Normal 0 /LPF [facility] Comment on above: Order Comment: Speci men Type: URINE SPECIMENOrdering Facility: [facility] Address: [address] [place] [address] Performed By: #### 2 4356-8 ####[place] [facility] [id number] [address] [place] [address] [place] Ketones Ql (U) Negative Normal Negative [facility] Comment on above: Order Comment: Speci men Type: URINE SPECIMENOrdering Facility: [facility] Address: [address] [place] [address] Performed By: #### 2 4356-8 ####[place] [facility] [id number] [address], [place] [address] [place] Leukocyte esterase Test strip Ql (U) Negative Normal Negative [facility] Comment on above: Order Comment: Speci men Type: URINE SPECIMENOrdering Facility: [facility] Address: [address] [place] [address] Performed By: #### 2 4356-8 ####[place] [facility] [id number] [address], [facility]95 [place] Nitrite Ql (U) Negative Normal Negative [facility] Comment on above: Order Comment: Speci men Type: URINE SPECIMENOrdering Facility: [facility] Address: [address] [place] [address] Performed By: #### 2 4356-8 ####[place] [facility] [id number] [address], [facility]95 [place] pH (U) 5.5 [pH] Normal <8.5 [facility] Comment on above: Order Comment: Speci men Type: URINE SPECIMENOrdering Facility: [facility] Address: [address] [place] [address] Performed By: #### 2 4356-8 ####[place] [facility] [id number] [place] [address] [place] Protein (U) [Mass/Vol] 2+ Abnormal Negative Cl [facility] Comment on above: Order Comment: Speci men Type: URINE SPECIMENOrdering Facility: [facility] Address: [address] [place] [address] Performed By: #### 2 4356-8 ####[place] [facility] [id number] [place] [address] [place] RBC LM.HPF (Urine sed) [#/Area] 0-2 /HPF Normal 0-2 /HPF [facility] Comment on above: Order Comment: Speci men Type: URINE SPECIMENOrdering Facility: [facility] Address: [address] [place] [address] Performed By: #### 2 4356-8 ####[facility]ITAL[facility] [id number] [place] [address] [place] Specific gravity (U) [Rel density] 1.012 Normal 1.005-1.03 0 [facility] Comment on above: Order Comment: Speci men Type: URINE SPECIMENOrdering Facility: [facility] Address: [address] [place] [address] Performed By: #### 2 4356-8 ####[place] [facility] [id number] [address] [place] Urobilinogen Ql (U) 0.2 EU/dL Normal 0.2-1.0 EU/dL [facility] Comment on above: Order Comment: Speci men Type: URINE SPECIMENOrdering Facility: [facility] Address: [address] [place] [address] Performed By: #### 2 4356-8 ####[place] [facility] [id number] [place] [address] [place] WBC LM.HPF (Urine sed) [#/Area] 0-5 /HPF Normal 0-5 /HPF [facility] Comment on above: Order Comment: Speci men Type: URINE SPECIMENOrdering Facility: [facility] Address: [address] [place] [address] Performed By: #### 2 4356-8 ####[place] [facility] [id number] [place] [address] [place] CNPNon 11-14-2024 CNPN Normal [facility] CNOVSPon 10-28-2024 CNOVSP Normal [facility] CNPNon 10-23-2024 CNPN Normal [facility] CNPTOUTREACHon 10-22-2024 CNPTOUTREACH Normal [facility] CBC W Auto Differential pane l (Bld)on 10-21-2024 Basophils (Bld) [#/Vol] 10*3/uL Normal <0.11 [facility] Comment on above: Order Comment: Speci men Type: BLOOD SPECIMENOrdering Facility: [facility] Address: [address] [place] [address] Performed By: #### 5 7021-8 ####[facility] [id number] [place] [address] [place] Basophils/100 WBC (Bld) 0.4 % Normal [facility] Comment on above: Order Comment: Speci men Type: BLOOD SPECIMENOrdering Facility: [facility] Address: [address] [place] [address] Performed By: #### 5 7021-8 ####[facility] [id number] [place] [address] [place] Differential cell count method Nom (Bld) Auto Normal [facility] Comment on above: Order Comment: Speci men Type: BLOOD SPECIMENOrdering Facility: [facility] Address: [address] [place] [address] Performed By: #### 5 7021-8 ####[facility] STEVEWMALIA [id number] [place] [address] [place] Eosinophils (Bld) [#/Vol] 0.10 10*3/uL Normal <0.46 [facility] Comment on above: Order Comment: Speci men Type: BLOOD SPECIMENOrdering Facility: [facility] Address: [address] [place] [address] Performed By: #### 5 7021-8 ####[facility] [id number] [place] [address] [place] Eosinophils/100 WBC (Bld) 2.0 % Normal [facility] Comment on above: Order Comment: Speci men Type: BLOOD SPECIMENOrdering Facility: [facility] Address: [address] [place] [address] Performed By: #### 5 7021-8 ####[facility] [id number] [place] [address] [place] Erythrocyte distribution width (RBC) [Ratio] 12.7 % Normal 11.5-15.0 [facility] Comment on above: Order Comment: Speci men Type: BLOOD SPECIMENOrdering Facility: [facility] Address: [address] [place] [address] Performed By: #### 5 7021-8 ####[facility] [id number] [place] [address] [place] Hematocrit (Bld) [Volume fraction] 24.3 % Low 39.0-51.0 [facility] Comment on above: Order Comment: Speci men Type: BLOOD SPECIMENOrdering Facility: [facility] Address: [address] [place] [address] Performed By: #### 5 7021-8 ####[facility]CL[facility] [id number] [place] [address] [place] Hemoglobin (Bld) [Mass/Vol] 7.7 g/dL Low 13.0-17.0 [facility] Comment on above: Order Comment: Speci men Type: BLOOD SPECIMENOrdering Facility: [facility] Address: [address] [place] [address] Performed By: #### 5 7021-8 ####[facility] [id number] [place] [address] [place] Immature granulocytes (Bld) [#/Vol] 0.05 10*3/uL Normal <0.10 [facility] Comment on above: Order Comment: Speci men Type: BLOOD SPECIMENOrdering Facility: [facility] Address: [address] [place] [address] Performed By: #### 5 7021-8 ####[facility] [id number] [place] [address] [place] Immature granulocytes/100 WBC (Bld) 1.0 % Normal [facility] Comment on above: Order Comment: Speci men Type: BLOOD SPECIMENOrdering Facility: [facility] Address: [address] [place] [address] Performed By: #### 5 7021-8 ####[facility] [id number] [place] [address] [place] Lymphocytes (Bld) [#/Vol] 1.42 10*3/uL Normal 1.00-4.00 [facility] Comment on above: Order Comment: Speci men Type: BLOOD SPECIMENOrdering Facility: [facility] Address: [address] [place] [address] Performed By: #### 5 7021-8 ####[facility] [id number] [place] [address] [place] Lymphocytes/100 WBC (Bld) 28.4 % Normal [facility] Comment on above: Order Comment: Speci men Type: BLOOD SPECIMENOrdering Facility: [facility] Address: [address] [place] [address] Performed By: #### 5 7021-8 ####[facility] STEVEDANAY [id number] [address] MCH (RBC) [Entitic mass] 28.5 pg Normal 26.0-34.0 [facility] Comment on above: Order Comment: Speci men Type: BLOOD SPECIMENOrdering Facility: [facility] Address: [address] [place] [address] Performed By: #### 5 7021-8 ####[facility] [id number] [place] [address] [place] MCHC (RBC) [Mass/Vol] 31.7 g/dL Normal 30.5-36.0 [facility] Comment on above: Order Comment: Speci men Type: BLOOD SPECIMENOrdering Facility: [facility] Address: [address] [place] [address] Performed By: #### 5 7021-8 ####[facility] [id number] [place] [address] [place] MCV (RBC) [Entitic vol] 90.0 fL Normal 80.0-100.0 [facility] Comment on above: Order Comment: Speci men Type: BLOOD SPECIMENOrdering Facility: [facility] Address: [address] [place] [address] Performed By: #### 5 7021-8 ####[facility] [id number] [place] [address] [place] [facility] [place] Monocytes (Bld) [#/Vol] 0.35 10*3/uL Normal <0.87 [facility] Comment on above: Order Comment: Speci men Type: BLOOD SPECIMENOrdering Facility: [facility] Address: [address] [place] [address] Performed By: #### 5 7021-8 ####[facility] STEVEWNCLIA [id number] [place] [address] [place] Monocytes/100 WBC (Bld) 7.0 % Normal [facility] Comment on above: Order Comment: Speci men Type: BLOOD SPECIMENOrdering Facility: [facility] Address: [address] [place] [address] Performed By: #### 5 7021-8 ####[facility] [id number] [place] [address] [place] Neutrophils (Bld) [#/Vol] 3.06 10*3/uL Normal 1.45-7.50 [facility] Comment on above: Order Comment: Speci men Type: BLOOD SPECIMENOrdering Facility: [facility] Address: [address] [place] [address] Performed By: #### 5 7021-8 ####[facility] [id number] [place] [address] [place] Neutrophils/100 WBC (Bld) 61.2 % Normal [facility] Comment on above: Order Comment: Speci men Type: BLOOD SPECIMENOrdering Facility: [facility] Address: [address] [place] [address] Performed By: #### 5 7021-8 ####[facility] [id number] [place] [address] [place] Nucleated RBC (Bld) [#/Vol] 10*3/uL Normal <0.01 [facility] Comment on above: Order Comment: Speci men Type: BLOOD SPECIMENOrdering Facility: [facility] Address: [address] [place] [address] Performed By: #### 5 7021-8 ####[facility] ERNCLIA [id number] [place] [address] [place] Nucleated RBC/100 WBC (Bld) [Ratio] 0.0 /100 WBC Normal [facility] Comment on above: Order Comment: Speci men Type: BLOOD SPECIMENOrdering Facility: [facility] Address: [address] [place] [address] Performed By: #### 5 7021-8 ####[facility] [id number] [place] [address] [place] Platelet mean volume (Bld) [Entitic vol] 9.3 fL Normal 9.0-12.7 [facility] Comment on above: Order Comment: Speci men Type: BLOOD SPECIMENOrdering Facility: [facility] Address: [address] [place] [address] Performed By: #### 5 7021-8 ####[facility] [id number] [place] [address] [place] Platelets (Bld) [#/Vol] 197 10*3/uL Normal 150-400 [facility] Comment on above: Order Comment: Speci men Type: BLOOD SPECIMENOrdering Facility: [facility] Address: [address] [place] [address] Performed By: #### 5 7021-8 ####[facility] [id number] [place] [address] [place] RBC (Bld) [#/Vol] 2.70 10*6/uL Low 4.20-6.00 [facility] Comment on above: Order Comment: Speci men Type: BLOOD SPECIMENOrdering Facility: [facility] Address: [address] [place] [address] Performed By: #### 5 7021-8 ####[facility] [id number] [place] [address] [place] WBC (Bld) [#/Vol] 5.00 10*3/uL Normal 3.70-11.00 [facility] Comment on above: Order Comment: Speci men Type: BLOOD SPECIMENOrdering Facility: [facility] Address: [address] [place] [address] Performed By: #### 5 7021-8 ####[facility] [id number] [place] [address] [place] CYSTATIN Con 10-21-2024 Cystatin C [Mass/Vol] 3.45 mg/L High 0.61-0.95 [facility] Comment on above: Order Comment: Speci men Type: BLOOD SPECIMENOrdering Facility: [facility] Address: [address] [place] [address] Performed By: #### C YSTC ####[place] [facility] [id number] [place] [address] [place] CYSTATIN C EGFR 15 mL/min/1.73m??? Low >=60 [facility] Comment on above: Order Comment: Speci men Type: BLOOD SPECIMENOrdering Facility: [facility] Address: [address] [place] [address] Result Comment: María Elena mated Glomerular Filtration Rate (eGFR) is calculated using the 2012 CKD-EPI cystatin C equation. This equation utilizes serum cystatin C, sex, and age as parameters. The cystatin C assay has traceable calibration to the ERM-DA471/[facility] reference material. Refer to KDIGO guidelines for clinical interpretation. In patients with unstable renal function, e.g. those with acute kidney injury, the eGFR may not accurately reflect actual GFR. Performed By: #### C YSTC ####[place] [facility] [id number] [place] [address] [place] Prot/Creat Uron 10-21-2024 Protein/Creatinine (U) [Mass ratio] 1.41 mg/mg High <0.15 [facility] Comment on above: Order Comment: Speci men Type: URINE SPECIMENOrdering Facility: [facility] Address: [address] [place] [address] Result Comment: Adul t Proteinuria Categories:<0.15 mg/mg is considered normal to mildly increased0.15 - 0.50 mg/mg is considered moderately increased>0.50 mg/mg is considered severely increasedKDIGO. (2013). KDIGO 2012 Clinical Practice Guideline for the Evaluation and Management of Chronic Kidney Disease. Official Journal of the International Society of Nephrology, 3(1), 1-150. Performed By: #### 2 890-2 ####[place] [facility] [id number] [place] [id number] [place] Protein/Creatinine (U) [Mass ratio]on 10-21-2024 Creatinine (U) [Mass/Vol] 75.3 mg/dL Normal 20.0-300.0 [facility] Comment on above: Order Comment: Speci men Type: URINE SPECIMENOrdering Facility: [facility] Address: [address] [place] [address] Performed By: #### 2 890-2 ####[place] [facility] [id number] [place] [address] [place] Protein (U) [Mass/Vol] 106 mg/dL High 0-20 Cl [facility] Comment on above: Order Comment: Speci men Type: URINE SPECIMENOrdering Facility: [facility] Address: [address] [place] [address] Performed By: #### 2 890-2 ####[facility] [id number] [place] [id number] [place] Renal function 2000 panelon 10-21-2024 Albumin [Mass/Vol] 4.0 g/dL Normal 3.9-4.9 [facility] Comment on above: Order Comment: Speci men Type: BLOOD SPECIMENOrdering Facility: [facility] Address: [address] [place] [address] Performed By: #### 2 4362-6 ####[facility] [id number] [place] [id number] [place] Anion gap [Moles/Vol] 10 mmol/L Normal 8-15 [facility] Comment on above: Order Comment: Speci men Type: BLOOD SPECIMENOrdering Facility: [facility] Address: [address] [place] [address] Performed By: #### 2 4362-6 ####[facility] ER[facility] [id number] [place] [address] [place] Calcium [Mass/Vol] 9.0 mg/dL Normal 8.5-10.2 [facility] Comment on above: Order Comment: Speci men Type: BLOOD SPECIMENOrdering Facility: [facility] Address: [address] [place] [address] Performed By: #### 2 4362-6 ####[facility] [id number] [place] [address] [place] Chloride [Moles/Vol] 109 mmol/L High 98-107 [facility] Comment on above: Order Comment: Speci men Type: BLOOD SPECIMENOrdering Facility: [facility] Address: [address] [place] [address] Performed By: #### 2 4362-6 ####[facility] [id number] [place] [address] [place] CO2 [Moles/Vol] 20 mmol/L Low 22-30 [facility] Comment on above: Order Comment: Speci men Type: BLOOD SPECIMENOrdering Facility: [facility] Address: [address] [place] [address] Performed By: #### 2 4362-6 ####[facility] [id number] [place] [address] [place] Creatinine [Mass/Vol] 4.71 mg/dL High 0.73-1.22 [facility] Comment on above: Order Comment: Speci men Type: BLOOD SPECIMENOrdering Facility: [facility] Address: [address] [place] [address] Performed By: #### 2 4362-6 ####[facility] [id number] [place] [address] [place] Creatinine and Glomerular filtration rate.predicted panel (S/P/Bld) 13 mL/min/1.73m??? Low >=60 [facility] Comment on above: Order Comment: Pj richard Type: BLOOD SPECIMENOrdering Facility: [facility] Address: [address] [place] [address] Result Comment: María Elena mated Glomerular Filtration Rate (eGFR) is calculated using the 2020 CKD-EPI creatinine equation. This equation utilizes serum creatinine, sex, and age as parameters. The creatinine assay has traceable calibration to isotope dilution-mass spectrometry. Refer to KDIGO guidelines for clinical interpretation. In patients with unstable renal function, e.g. those with acute kidney injury, the eGFR may not accurately reflect actual GFR. Performed By: #### 2 4362-6 ####[facility] [id number] [place] [address] [place] Glucose [Mass/Vol] 129 mg/dL High 74-99 [facility] Comment on above: Order Comment: Pj richard Type: BLOOD SPECIMENOrdering Facility: [facility] Address: [address] [place] [address] Result Comment: The [place] [employer] (ADA) provides guidance for cutoff values for fasting glucose and random glucose. The ADA defines fasting as no caloric intake for at least 8 hours. Fasting plasma glucose results between 100 to 125 mg/dL indicate increased risk for diabetes (prediabetes).Fasting plasma glucose results greater than or equal to 126 mg/dL meet the criteria for diagnosis of diabetes. In the absence of unequivocal hyperglycemia, results should be confirmed by repeat testing. In a patient with classic symptoms of hyperglycemia or hyperglycemic crisis, random plasma glucose results greater than or equal to 200 mg/dL meet the criteria for diagnosis of diabetes.Reference: Standards of Medical Care in Diabetes 2016, [place] [employer]. Diabetes Care. 2016.39(Suppl 1). Performed By: #### 2 4362-6 ####[facility] [id number] [place] [address] [place] Phosphate [Mass/Vol] 3.7 mg/dL Normal 2.7-4.8 [facility] Comment on above: Order Comment: Speci men Type: BLOOD SPECIMENOrdering Facility: [facility] Address: [address] [place] [address] Performed By: #### 2 4362-6 ####[facility] MILLWMIRACLELIA [id number] [place] [address] [place] Potassium [Moles/Vol] 5.2 mmol/L High 3.7-5.1 [facility] Comment on above: Order Comment: Speci men Type: BLOOD SPECIMENOrdering Facility: [facility] Address: [address] [place] [address] Performed By: #### 2 4362-6 ####[facility]ENTERLIA [id number] [place] [address] [place] Sodium [Moles/Vol] 139 mmol/L Normal 136-144 [facility] Comment on above: Order Comment: Speci men Type: BLOOD SPECIMENOrdering Facility: [facility] Address: [address] [place] [address] Performed By: #### 2 4362-6 ####[facility] CENTERLIA [id number] [place] [address] [place] Urea nitrogen [Mass/Vol] 64 mg/dL High 9-24 [facility] Comment on above: Order Comment: Speci men Type: BLOOD SPECIMENOrdering Facility: [facility] Address: [address] [place], [place] [address] Performed By: #### 2 4362-6 ####[facility] ERNCLIA [id number] [place] [address] [place] CNPNon 10-11-2024 CNPN Normal [facility] CNOVon 10-09-2024 CNOV Normal [facility] CNOVon 10-08-2024 CNOV Normal [facility] CNPNon 10-04-2024 CNPN Normal [facility] CNOVon 10-01-2024 CNOV Normal [facility] CNOVon 09-30-2024 CNOV Normal [facility] CNPNon 09-25-2024 CNPN Normal [facility] CBC W Auto Differential pane l (Bld)on 09-24-2024 Basophils (Bld) [#/Vol] 0.03 10*3/uL Normal <0.11 [facility] Comment on above: Order Comment: Speci men Type: BLOOD SPECIMENOrdering Facility: [facility] Address: [address] [place] [address] Performed By: #### 5 7021-8 ####[facility] [id number] [place] [address] [place] Basophils/100 WBC (Bld) 0.4 % Normal [facility] Comment on above: Order Comment: Speci men Type: BLOOD SPECIMENOrdering Facility: [facility] Address: [address] [place] [address] Performed By: #### 5 7021-8 ####[facility] [id number] [place] [address] [place] Differential cell count method Nom (Bld) Auto Normal [facility] Comment on above: Order Comment: Speci men Type: BLOOD SPECIMENOrdering Facility: [facility] Address: [address] [place] [address] Performed By: #### 5 7021-8 ####[facility]OSPITALA [id number] [place] [address] [place] Eosinophils (Bld) [#/Vol] 0.25 10*3/uL Normal <0.46 [facility] Comment on above: Order Comment: Speci men Type: BLOOD SPECIMENOrdering Facility: [facility] Address: [address] [place] [address] Performed By: #### 5 7021-8 ####[facility] STEVEMANDILIA [id number] [place] [address] [place] Eosinophils/100 WBC (Bld) 3.3 % Normal [facility] Comment on above: Order Comment: Speci men Type: BLOOD SPECIMENOrdering Facility: [facility] Address: [address] [place] [address] Performed By: #### 5 7021-8 ####[facility] ERSTEPHA [id number] [place] [address] [place] Erythrocyte distribution width (RBC) [Ratio] 12.8 % Normal 11.5-15.0 [facility] Comment on above: Order Comment: Speci men Type: BLOOD SPECIMENOrdering Facility: [facility] Address: [address] [place] [address] Performed By: #### 5 7021-8 ####[facility] HOS[facility]ITALA [id number] [place] [address] [place] Hematocrit (Bld) [Volume fraction] 24.3 % Low 39.0-51.0 [facility] Comment on above: Order Comment: Speci men Type: BLOOD SPECIMENOrdering Facility: [facility] Address: [address] [place] [address] Performed By: #### 5 7021-8 ####[facility] STEVERICHMOND STATE HOSPITALLIA [id number] [place] [address] [place] Hemoglobin (Bld) [Mass/Vol] 8.0 g/dL Low 13.0-17.0 [facility] Comment on above: Order Comment: Speci men Type: BLOOD SPECIMENOrdering Facility: [facility] Address: [address] [place] [address] Performed By: #### 5 7021-8 ####[facility]ENTERLIA [id number] [place] [address] [place] Immature granulocytes (Bld) [#/Vol] 0.05 10*3/uL Normal <0.10 [facility] Comment on above: Order Comment: Speci men Type: BLOOD SPECIMENOrdering Facility: [facility] Address: [address] [place] [address] Performed By: #### 5 7021-8 ####[facility] [id number] [place] [address] [place] Immature granulocytes/100 WBC (Bld) 0.7 % Normal [facility] Comment on above: Order Comment: Speci men Type: BLOOD SPECIMENOrdering Facility: [facility] Address: [address] [place] [address] Performed By: #### 5 7021-8 ####[facility] [id number] [place] [address] [place] Lymphocytes (Bld) [#/Vol] 1.70 10*3/uL Normal 1.00-4.00 [facility] Comment on above: Order Comment: Speci men Type: BLOOD SPECIMENOrdering Facility: [facility] Address: [address] [place] [address] Performed By: #### 5 7021-8 ####[facility] [id number] [place] [address] [place] Lymphocytes/100 WBC (Bld) 22.4 % Normal [facility] Comment on above: Order Comment: Speci men Type: BLOOD SPECIMENOrdering Facility: [facility] Address: [address] [place] [address] Performed By: #### 5 7021-8 ####[facility]ITALA [id number] [place] [address] [place] MCH (RBC) [Entitic mass] 28.6 pg Normal 26.0-34.0 [facility] Comment on above: Order Comment: Speci men Type: BLOOD SPECIMENOrdering Facility: [facility] Address: [address] [place] [address] Performed By: #### 5 7021-8 ####[facility] ERNCLAKE[facility] [id number] [place] [address] [place] MCHC (RBC) [Mass/Vol] 32.9 g/dL Normal 30.5-36.0 [facility] Comment on above: Order Comment: Speci men Type: BLOOD SPECIMENOrdering Facility: [facility] Address: [address] [place], [place] [address] Performed By: #### 5 7021-8 ####[facility] [id number] [place] [address] [place] MCV (RBC) [Entitic vol] 86.8 fL Normal 80.0-100.0 [facility] Comment on above: Order Comment: Speci men Type: BLOOD SPECIMENOrdering Facility: [facility] Address: [address] [place] [address] Performed By: #### 5 7021-8 ####[facility] [id number] [place] [address] [place] Monocytes (Bld) [#/Vol] 0.57 10*3/uL Normal <0.87 [facility] Comment on above: Order Comment: Speci men Type: BLOOD SPECIMENOrdering Facility: [facility] Address: [address] [place] [address] Performed By: #### 5 7021-8 ####[facility] ERNCLAKE[facility] [id number] [place] [address] [place] Monocytes/100 WBC (Bld) 7.5 % Normal [facility] Comment on above: Order Comment: Speci men Type: BLOOD SPECIMENOrdering Facility: [facility] Address: [address] [place] [address] Performed By: #### 5 7021-8 ####[facility] MILLTOWNCLIA [id number] [place] [address] [place] Neutrophils (Bld) [#/Vol] 4.98 10*3/uL Normal 1.45-7.50 [facility] Comment on above: Order Comment: Speci men Type: BLOOD SPECIMENOrdering Facility: [facility] Address: [address] [place] [address] Performed By: #### 5 7021-8 ####[facility] MILLTOWMIRACLELIA [id number] [place] [address] [place] Neutrophils/100 WBC (Bld) 65.7 % Normal [facility] Comment on above: Order Comment: Speci men Type: BLOOD SPECIMENOrdering Facility: [facility] Address: [address] [place] [address] Performed By: #### 5 7021-8 ####[facility] DASIAWNCLIA [id number] [place] [address] [place] Nucleated RBC (Bld) [#/Vol] 10*3/uL Normal <0.01 [facility] Comment on above: Order Comment: Speci men Type: BLOOD SPECIMENOrdering Facility: [facility] Address: [address] [place] [address] Performed By: #### 5 7021-8 ####[facility] MILLTOWNCLIA [id number] [place] [address] [place] Nucleated RBC/100 WBC (Bld) [Ratio] 0.0 /100 WBC Normal [facility] Comment on above: Order Comment: Speci men Type: BLOOD SPECIMENOrdering Facility: [facility] Address: [address] [place] [address] Performed By: #### 5 7021-8 ####[facility] STEVETOWNCLIA [id number] [place] [address] [place] Platelet mean volume (Bld) [Entitic vol] 9.3 fL Normal 9.0-12.7 [facility] Comment on above: Order Comment: Speci men Type: BLOOD SPECIMENOrdering Facility: [facility] Address: [address] [place] [address] Performed By: #### 5 7021-8 ####[facility] STEVEALTA VISTAMIRACLELIA [id number] [place] [address] [place] Platelets (Bld) [#/Vol] 232 10*3/uL Normal 150-400 [facility] Comment on above: Order Comment: Speci men Type: BLOOD SPECIMENOrdering Facility: [facility] Address: [address] [place] [address] Performed By: #### 5 7021-8 ####[facility] CENTERFRIDAA [id number] [place] [address] [place] RBC (Bld) [#/Vol] 2.80 10*6/uL Low 4.20-6.00 [facility] Comment on above: Order Comment: Speci men Type: BLOOD SPECIMENOrdering Facility: [facility] Address: [address] [place] [address] Performed By: #### 5 7021-8 ####[facility]ENTERLIA [id number] [place] [address] [place] WBC (Bld) [#/Vol] 7.58 10*3/uL Normal 3.70-11.00 [facility] Comment on above: Order Comment: Speci men Type: BLOOD SPECIMENOrdering Facility: [facility] Address: [address] [place] [address] Performed By: #### 5 7021-8 ####[facility] ERNCLIA [id number] [address] [place] CNOVon 09-24-2024 CNOV Normal [facility] metabolic 2000 panelOrdered By: Tiffany Richards on 09-24-2024 Albumin [Mass/Vol] 4 g/dL 3.9 - 4.9 g/dL [facility] ALP [Catalytic activity/Vol] 114 U/L High 38 - 113 U/L [facility] ALT [Catalytic activity/Vol] 14 U/L 10 - 54 U/L [facility] Anion gap [Moles/Vol] 11 mmol/L 8 - 15 mmol/L [facility] AST [Catalytic activity/Vol] 11 U/L Low 14 - 40 U/L [facility] Bilirubin [Mass/Vol] 0.2 mg/dL 0.2 - 1 .3 mg/dL [facility] Calcium [Mass/Vol] 9.3 mg/dL 8.5 - 10. 2 mg/dL [facility] Chloride [Moles/Vol] 109 mmol/L High 98 - 10 7 mmol/L [facility] CO2 [Moles/Vol] 19 mmol/L Low 22 - 30 mmol/L [facility] Creatinine [Mass/Vol] 4.39 mg/dL High 0.73 - 1.22 mg/dL [facility] GFR/1.73 sq M.predicted among non-blacks MDRD (S/P/Bld) [Vol rate/Area] 14 mL/min/{1.73_m2} Low - PINF [facility] Comment on above: Estimated Glomerular Filtration Rate (eGFR) is calculated using the 2020 CKD-EPI creatinine equation. This equation utilizes serum creatinine, sex, and age as parameters. The creatinine assay has traceable calibration to isotope dilution-mass spectrometry. Refer to KDIGO guidelines for clinical interpretation. In patients with unstable renal function, e.g. those with acute kidney injury, the eGFR may not accurately reflect actual GFR. Glucose [Mass/Vol] 133 mg/dL High 74 - 99 mg/dL [facility] Comment on above: The [place] Diabete s Association (ADA) provides guidance for cutoff values for fasting glucose and random glucose. The ADA defines fasting as no caloric intake for at least 8 hours. Fasting plasma glucose results between 100 to 125 mg/dL indicate increased risk for diabetes (prediabetes). Fasting plasma glucose results greater than or equal to 126 mg/dL meet the criteria for diagnosis of diabetes. In the absence of unequivocal hyperglycemia, results should be confirmed by repeat testing. In a patient with classic symptoms of hyperglycemia or hyperglycemic crisis, random plasma glucose results greater than or equal to 200 mg/dL meet the criteria for diagnosis of diabetes. Reference: Standards of Medical Care in Diabetes 2016, [place] Diabetes Association. Diabetes Care. 2016.39(Suppl 1). Interpretation and review of laboratory results Abnormal [facility] Potassium [Moles/Vol] 4.6 mmol/L 3.7 - 5.1 mmol/L [facility] Protein [Mass/Vol] 6.4 g/dL 6.3 - 8.0 g/dL [facility] Sodium [Moles/Vol] 139 mmol/L 136 - 144 mmol/L [facility] Urea nitrogen [Mass/Vol] 68 mg/dL High 9 - 24 mg/dL [facility] Comprehensive metabolic 2000 panelon 09-24-2024 Albumin [Mass/Vol] 4.0 g/dL Normal 3.9-4.9 [facility] Comment on above: Order Comment: Pj richard Type: BLOOD SPECIMENOrdering Facility: [facility] Address: [address] [place] [address] Performed By: #### 2 4323-8 ####[facility] HOSPITALWMALIA [id number] [place] [address] [place]#### 2276-4, 38854-7 ####[facility]ORYCLIA [id number] [place] [address] [place]#### 59179-4 ####[facility]ORATORYCLIA [id number] [place] [address] [place] [facility]AC[facility] MILLTOWNCLIA [id number] [place] [address] [place] ALP [Catalytic activity/Vol] 114 U/L High 38-113 [facility] Comment on above: Order Comment: Pj richard Type: BLOOD SPECIMENOrdering Facility: [facility] Address: [address] [place] [address] Performed By: #### 2 4323-8 ####[facility] MILLTOWNCLIA [id number] [place] [address] [place]#### 2276-4, 76705-2 ####[facility] LABORATORYCLIA [id number] [place] [address] [place]#### 99757-2 ####[facility]ATORYCLIA [id number] [address] [place] MILLTOWNCLIA [id number] [place] [address] [place] ALT [Catalytic activity/Vol] 14 U/L Normal 10-54 [facility] Comment on above: Order Comment: Speci men Type: BLOOD SPECIMENOrdering Facility: [facility] Address: [address] [place] [address] Performed By: #### 2 4323-8 ####[facility] MILLTOWNCLIA [id number] [place] [address] [place]#### 2276-4, 68657-9 ####[facility] LABORATORYCLIA [id number] [place] [address] [place]#### 22218-7 ####[facility]ORYCLIA [id number] [address] [place] MILLTOWNCLIA [id number] [place] [address] [place] Anion gap [Moles/Vol] 11 mmol/L Normal 8-15 [facility] Comment on above: Order Comment: Speci men Type: BLOOD SPECIMENOrdering Facility: [facility] Address: [address] [place] [address] Performed By: #### 2 4323-8 ####[facility] MILLTOWNCLIA [id number] [place] [address] [place]#### 2276-4, 89267-1 ####[facility]ORATORYCLIA [id number] [place] [address] [place]#### 43431-7 ####[facility]ORATORYCLIA [id number] [address] CLAUDEGRACE COTTAGE HOSPITALWNCLIA [id number] [place] [address] [place] AST [Catalytic activity/Vol] 11 U/L Low 14-40 [facility] Comment on above: Order Comment: Speci men Type: BLOOD SPECIMENOrdering Facility: [facility] Address: [address] [place] [address] Performed By: #### 2 4323-8 ####[facility] HOSPITALTOWNCLIA [id number] [place] [address] [place]#### 2276-4, 23118-8 ####[facility] LABORATORYCLIA [id number] [place] [address] [place]#### 60096-5 ####[facility] LABORATORYCLIA [id number] [address] [id number] [place] [address] [place] Bilirubin [Mass/Vol] 0.2 mg/dL Normal 0.2-1.3 [facility] Comment on above: Order Comment: Speci men Type: BLOOD SPECIMENOrdering Facility: [facility] Address: [address] [place] [address] Performed By: #### 2 4323-8 ####[facility] MILLTOWNCLIA [id number] [place] [address] [place]#### 2276-4, 93149-4 ####[facility]ORATORYCLIA [id number] [place] [address] [place]#### 15784-8 ####[facility]ORATORYCLIA [id number] [address] [place] MILLTOWNCLIA [id number] [place] [address] [place] Calcium [Mass/Vol] 9.3 mg/dL Normal 8.5-10.2 [facility] Comment on above: Order Comment: Speci men Type: BLOOD SPECIMENOrdering Facility: [facility] Address: [address] [place] [address] Performed By: #### 2 4323-8 ####[facility] MILLWNCLIA [id number] [place] [address] [place]#### 2276-4, 20547-6 ####[facility]ORATORYCLIA [id number] [address] [place]#### 14968-8 ####[facility] LABORATORYCLIA [id number] [address] [id number] [place] [address] [place] Chloride [Moles/Vol] 109 mmol/L High 98-107 [facility] Comment on above: Order Comment: Speci men Type: BLOOD SPECIMENOrdering Facility: [facility] Address: [address] [place] [address] Performed By: #### 2 4323-8 ####[facility] MILLTOWNCLIA [id number] [place] [address] [place]#### 2276-4, 92536-1 ####[facility]ORATORYCLIA [id number] [place] [address] [place]#### 94762-0 ####[facility] LABORATORYCLIA [id number] [place] [address] [facility] HOSPITALNCLIA [id number] [place] [address] [place] CO2 [Moles/Vol] 19 mmol/L Low 22-30 [facility] Comment on above: Order Comment: Speci men Type: BLOOD SPECIMENOrdering Facility: [facility] Address: [address] [place] [address] Performed By: #### 2 4323-8 ####[facility] MILLTOWNCLIA [id number] [place] [address] [place]#### 2276-4, 62389-0 ####[facility]ORATORYCLIA [id number] [place] [address] [place]#### 01354-6 ####[facility] LABORATORYCLIA [id number] [id number] [place] [address] [place] Creatinine [Mass/Vol] 4.39 mg/dL High 0.73-1.22 [facility] Comment on above: Order Comment: Speci men Type: BLOOD SPECIMENOrdering Facility: [facility] Address: [address] [place] [address] Performed By: #### 2 4323-8 ####[facility] MILLTOWNCLIA [id number] [place] [address] [place]#### 2276-4, 23215-0 ####[facility]ORATORYCLIA [id number] [place] [address] [place]#### 52985-2 ####[facility] LABORATORYCLIA [id number] [address] [id number] [place] [address] [place] Creatinine and Glomerular filtration rate.predicted panel (S/P/Bld) 14 mL/min/1.73m??? Low >=60 [facility] Comment on above: Order Comment: Pj richard Type: BLOOD SPECIMENOrdering Facility: [facility] Address: [address] [place] [place] [id number] Result Comment: María Elena mated Glomerular Filtration Rate (eGFR) is calculated using the 2020 CKD-EPI creatinine equation. This equation utilizes serum creatinine, sex, and age as parameters. The creatinine assay has traceable calibration to isotope dilution-mass spectrometry. Refer to KDIGO guidelines for clinical interpretation. In patients with unstable renal function, e.g. those with acute kidney injury, the eGFR may not accurately reflect actual GFR. Performed By: #### 2 4323-8 ####[facility] [id number] [place] [address] [place]#### 2276-4, 98514-5 ####[facility]ORATORYCLIA [id number] [address] STATES OF [facility]#### 70828-1 ####[facility]ORATORYCLIA [id number] [address] STATES OF [facility] [id number] [place] [address] [place] Glucose [Mass/Vol] 133 mg/dL High 74-99 [facility] Comment on above: Order Comment: Pj richard Type: BLOOD SPECIMENOrdering Facility: [facility] Address: [address] [facility] [address] [place] [id number] Result Comment: The [place] Diabetes Association (ADA) provides guidance for cutoff values for fasting glucose and random glucose. The ADA defines fasting as no caloric intake for at least 8 hours. Fasting plasma glucose results between 100 to 125 mg/dL indicate increased risk for diabetes (prediabetes).Fasting plasma glucose results greater than or equal to 126 mg/dL meet the criteria for diagnosis of diabetes. In the absence of unequivocal hyperglycemia, results should be confirmed by repeat testing. In a patient with classic symptoms of hyperglycemia or hyperglycemic crisis, random plasma glucose results greater than or equal to 200 mg/dL meet the criteria for diagnosis of diabetes.Reference: Standards of Medical Care in Diabetes 2016, [place] Diabetes Association. Diabetes Care. 2016.39(Suppl 1). Performed By: #### 2 4323-8 ####[facility] MILLTOWNCLIA [id number] [place] [address] [place]#### 2276-4, 20536-4 ####[facility] LABORATORYCLIA [id number] [address]#### 45369-8 ####[facility]ORATORYCLIA [id number] [address] [id number] [place] [address] [place] Potassium [Moles/Vol] 4.6 mmol/L Normal 3.7-5.1 [facility] Comment on above: Order Comment: Speci men Type: BLOOD SPECIMENOrdering Facility: [facility] Address: [address] [place] [address] Performed By: #### 2 4323-8 ####[facility] HOSPITALWMALIA [id number] [place] [address] [place]#### 2276-4, 12637-9 ####[facility] LABORATORYCLIA [id number] [address] [place]#### 07494-5 ####[facility]ORATORYCLIA [id number] [address] [id number] [place] [address] [place] Protein [Mass/Vol] 6.4 g/dL Normal 6.3-8.0 [facility] Comment on above: Order Comment: Speci men Type: BLOOD SPECIMENOrdering Facility: [facility] Address: [address] [place] [address] Performed By: #### 2 4323-8 ####[facility] [place] MILLTOWNCLIA [id number] [place] [address] [place]#### 2276-4, 63793-1 ####[facility] LABORATORYCLIA [id number] [place] [address] [place]#### 27684-7 ####[facility] LABORATORYCLIA [id number] [place] [address] [place] [facility] [place] MILLTOWNCLIA [id number] [place] [address] [place] Sodium [Moles/Vol] 139 mmol/L Normal 136-144 [facility] Comment on above: Order Comment: Speci men Type: BLOOD SPECIMENOrdering Facility: [facility] Address: [address] [place] [address] Performed By: #### 2 4323-8 ####[facility] MILLTOWNCLIA [id number] [place] [address] [place]#### 2276-4, 49825-7 ####[facility] LABORATORYCLIA [id number] [place] [address] [place]#### 79173-1 ####[facility] LABORATORYCLIA [id number] [place] [address] [place] [facility] MILLTOWNCLIA [id number] [place] [address] [place] Urea nitrogen [Mass/Vol] 68 mg/dL High 9-24 [facility] Comment on above: Order Comment: Speci men Type: BLOOD SPECIMENOrdering Facility: [facility] Address: [address] [place] [id number] Performed By: #### 2 4323-8 ####[facility] MILLTOWNCLIA [id number] [address] [place]#### 2276-4, 71552-5 ####[facility] LABORATORYCLIA [id number] [place] [address] [place]#### 14777-8 ####[facility] LABORATORYCLIA [id number] [place] [address] [place] [facility] [id number] [place] [address] [place] Ferritin SerPl-mCncon 2024 Ferritin [Mass/Vol] 403.6 ng/mL Normal 30.3-565.7 [facility] Comment on above: Order Comment: Speci men Type: BLOOD SPECIMENOrdering Facility: [facility] Address: [address] [place] [address] Performed By: #### 2 4323-8 ####[facility] [id number] [place] [address] [place]#### 2276-4, 27639-0 ####[facility] LABORATORYCLIA [id number] [place] [address] [place]#### 91665-8 ####[facility] LABORATORYCLIA [id number] [address] STATES [facility] [id number] [place] [address] [place] HbA1c (Bld)on 09-24-2024 Average glucose Estimated from glycated hemoglobin (Bld) [Mass/Vol] 105 mg/dL Normal [facility] Comment on above: Order Comment: Speci men Type: BLOOD SPECIMENOrdering Facility: [facility] Address: [address] [place] [address] Result Comment: eAG: (Estimated average glucose) is a calculated value from HgbA1c and is territory service representative of the average blood glucose level in the last 2-3 month period. Performed By: #### 5 5454-3 ####[place] LABCLIA [id number] [place] [address] [place] HbA1c (Bld) [Mass fraction] 5.3 % Normal 4.3-5.6 [facility] Comment on above: Order Comment: Speci men Type: BLOOD SPECIMENOrdering Facility: [facility] Address: [address] [place] [address] Result Comment: Amer ican Diabetes Association guidelines indicate that patients with HgbA1c in the range 5.7-6.4% are at increased risk for development of diabetes, and intervention by lifestyle modification may be beneficial. HgbA1c greater or equal to 6.5% is considered diagnostic of diabetes. Performed By: #### 5 5454-3 ####[place] LABCLIA [id number] [place] [address] [place] Iron and Iron binding capaci ty panelon 09-24-2024 Iron [Mass/Vol] 52 ug/dL Normal 41-186 [facility] Comment on above: Order Comment: Speci men Type: BLOOD SPECIMENOrdering Facility: [facility] Address: [address] [place] [address] Performed By: #### 2 4323-8 ####[facility] H[facility]ITALWNCLIA [id number] [place] [address] [place]#### 2276-4, 29488-1 ####[facility] LABORATORYCLIA [id number] [place] [address] [place]#### 88434-0 ####[facility] LABORATORYCLIA [id number] [place] [address] [place] [facility] MILLTOWNCLIA [id number] [place] [address] [place] Iron binding capacity [Mass/Vol] 230 ug/dL Low 232-386 [facility] Comment on above: Order Comment: Speci men Type: BLOOD SPECIMENOrdering Facility: [facility] Address: [address] [place] [address] Performed By: #### 2 4323-8 ####[facility] MILLTOWNCLIA [id number] [place] [address] [place]#### 2276-4, 11123-5 ####[facility] LABORATORYCLIA [id number] [place] [address] [place]#### 86115-4 ####[facility] LABORATORYCLIA [id number] [address] MILLTOWMALIA [id number] [place] [address] [place] Iron/TIBC [Molar ratio] 22.6 % Normal 20.0-55.0 [facility] Comment on above: Order Comment: Speci men Type: BLOOD SPECIMENOrdering Facility: [facility] Address: [address] [place] [address] Performed By: #### 2 4323-8 ####[facility] MILLWNCLIA [id number] [place] [address] [place]#### 2276-4, 41142-7 ####[facility] LABORATORYCLIA [id number] [place] [address] [place]#### 53596-8 ####[facility] LABORATORYCLIA [id number] [address] STATES [facility]ITALWMALIA [id number] [place] [address] [place] Lipid 1996 panelon 5 Cholesterol [Mass/Vol] 134 mg/dL Normal <200 [facility] Comment on above: Order Comment: Speci men Type: BLOOD SPECIMENOrdering Facility: [facility] Address: [address] [place], [place] [address] Result Comment: <200 mg/dL, Desirable 200-239 mg/dL, Borderline high>239 mg/dL, High Performed By: #### 2 4323-8 ####[facility] MILLTOWNCLIA [id number] [place] [address] [place]#### 2276-4, 23658-6 ####[facility] LABORATORYCLIA [id number] [address] [place]#### 72889-3 ####[facility] LABORATORYCLIA [id number] [address] OF [facility] CLA[facility]DE MILLTOWNCLIA [id number] [place] [address] [place] Cholesterol in HDL [Mass/Vol] 25 mg/dL Low >39 [facility] Comment on above: Order Comment: Speci men Type: BLOOD SPECIMENOrdering Facility: [facility] Address: [address] [place] [address] Result Comment: 40-5 9 mg/dL, Acceptable>59 mg/dL, High: Negative risk factor for coronary heart disease<40 mg/dL, Low: Positive risk factor for coronary heart disease Performed By: #### 2 4323-8 ####[facility] MILLTOWNCLIA [id number] [place] [address] [place]#### 2276-4, 13080-4 ####[facility] LABORATORYCLIA [id number] [place] [address] [place]#### 56787-8 ####[facility] LABORATORYCLIA [id number] [place] [id number] [place] [facility] MILLTOWNCLIA [id number] [place] [address] [place] Cholesterol in LDL [Mass/Vol] 61 mg/dL Normal <100 [facility] Comment on above: Order Comment: Speci men Type: BLOOD SPECIMENOrdering Facility: [facility] Address: [address] [place] [address] Result Comment: <100 mg/dL, Optimal 100-129 mg/dL, Near optimal/above optimal 130-159 mg/dL, Borderline high 160-189 mg/dL, High>189 mg/dL, Very highSecondary prevention optimal LDL Cholesterol levels are recommended to be < 70 mg/dL Performed By: #### 2 4323-8 ####[facility]OSPITALTOWNCLIA [id number] [address] [place]#### 2276-4, 85548-0 ####[facility] LABORATORYCLIA [id number] [address]#### 82496-6 ####[facility] LABORATORYCLIA [id number] [address] [id number] [address] STATES [facility] Cholesterol in LDL/Cholesterol in HDL [Mass ratio] 2.44 {ratio} Normal <2.54 [facility] Comment on above: Order Comment: Speci men Type: BLOOD SPECIMENOrdering Facility: [facility] Address: [address] [place] [address] Result Comment: Edna astorga:1. National Cholesterol Education Program ATP III Guideline At-A-Glance Quick Desk Reference: National Heart, Lung, and Blood [place]. National Institutes of Health. 2001: NIH Publication No. 01-3305.2. An International Atherosclerosis Society position paper: global recommendations for the management of dyslipidemia: executive summary, Atherosclerosis. 2014: 232(2):410-413. Performed By: #### 2 4323-8 ####[facility] ERNCLIA [id number] [address] [place]#### 2276-4, 45500-2 ####[facility] LABORATORYCLIA [id number] [address]#### 71092-8 ####[facility] LABORATORYCLIA [id number] [address] CLA[place] MILLWNCLIA [id number] [place] [address] [place] Cholesterol in VLDL [Mass/Vol] 48 mg/dL High <30 [facility] Comment on above: Order Comment: Speci men Type: BLOOD SPECIMENOrdering Facility: [facility] Address: [address] [place] [address] Performed By: #### 2 4323-8 ####[facility]ITALWNCLIA [id number] [place] [address] [place]#### 2276-4, 64593-7 ####[facility] LABORATORYCLIA [id number] [address] [place]#### 70220-2 ####[facility] LABORATORYCLIA [id number] [address] [id number] [place] [address] [place] Cholesterol non HDL [Mass/Vol] 109 mg/dL Normal <130 [facility] Comment on above: Order Comment: Speci men Type: BLOOD SPECIMENOrdering Facility: [facility] Address: [address] [place] [address] Result Comment: <130 mg/dL, Optimal 130-159 mg/dL, Near optimal/above optimal 160-189 mg/dL, Borderline high 190-219 mg/dL, High>219 mg/dL, Very highSecondary prevention optimal non HDL Cholesterol levels are recommended to be <100 mg/dL Performed By: #### 2 4323-8 ####[facility] MILLTOWNCLIA [id number] [place] [address] [place]#### 2276-4, 55707-2 ####[facility] LABORATORYCLIA [id number] [place] [address] [place]#### 43203-5 ####[facility] LABORATORYCLIA [id number] [address] [place] MILLTOWNCLIA [id number] [place] [address] [place] Cholesterol.total/Choles terol in HDL [Mass ratio] 5.36 {ratio} High <5.10 [facility] Comment on above: Order Comment: Speci men Type: BLOOD SPECIMENOrdering Facility: [facility] Address: [address] [place] [address] Performed By: #### 2 4323-8 ####[facility] MILLTOWNCLIA [id number] [place] [address] [place]#### 2276-4, 74003-2 ####[facility] LABORATORYCLIA [id number] [address] [place]#### 18160-9 ####[facility] LABORATORYCLIA [id number] [address] [id number] [address] FASTING TIME 12. hrs Normal [facility] Comment on above: Order Comment: Speci men Type: BLOOD SPECIMENOrdering Facility: [facility] Address: [address] [place] [address] Performed By: #### 2 4323-8 ####[facility] MILLTOWNCLIA [id number] [place] [address] [place]#### 2276-4, 52305-4 ####[facility] LABORATORYCLIA [id number] [place] [address] [place]#### 30861-7 ####[facility] LABORATORYCLIA [id number] [address] STATES OF [facility]AC[facility] [id number] [place] [address] [place] Triglyceride [Mass/Vol] 240 mg/dL High <150 [facility] Comment on above: Order Comment: Speci men Type: BLOOD SPECIMENOrdering Facility: [facility] Address: [address] [place] [address] Result Comment: <150 mg/dL, Normal 150-199 mg/dL, Borderline high 200-499 mg/dL, High>499 mg/dL, Very high Performed By: #### 2 4323-8 ####[facility] [id number] [place] [address] [place]#### 2276-4, 03383-5 ####[facility] LABORATORYCLIA [id number] [place] [address] [place]#### 39666-6 ####[facility] LABORATORYCLIA [id number] [place] [address] [place] [facility] [id number] [place] [address] [place] CNPNon 08-27-2024 CNPN Normal [facility] Emergency Department Summary on 08-15-2024 Emergency Department Summary [facility] Medical Records Department [address] [place] [address] Emergency Department Summary 08/15/24 MR#: [id number] Acct: [id number] Name: LOU JULIEN Rep #: [id number] : 1955 68 From: Charles Newman MD PCP: Dr. Vera Manrique MD Status:PRE ER Location: ED HPI History of Present Illness Chief Complaint: Fall Detail of Chief Complaint: Injury left knee due to fall Informant: patient Onset/Context/Timing Onset: Hours Mechanism/Context: Blunt Injury and Fall Location of pain/injuries: Left knee Quality of Pain: Dull and Aching Location: Proximal medial left knee Current Severity: Mild Worsened by: Movement and palpation Relieved by: Remaining still Associated Symptoms Associated Symptoms: Negative for Parasthesias, Weakness, Loss of function, Inability to ambulate, Loss of consciousness or Amnesia Narrative Narrative: Patient is a 68-year-old male with multiple medical problems who had a mechanical fall. He injured his left knee. Landed on his left knee. He localizes pain to the proximal medial left tibia. He denies paresthesia, anesthesia or motor weakness. He denies head trauma. He denies loss of conscious. Is not amnestic. He does have significant medical problems. He is not on an anticoagulant. He is on Plavix and aspirin. Prior similar symptoms: Yes Recent Illness/Hospitalization: No [facility] Medical History Anemia Acute on chronic kidney failure Kidney failure Need for home health care Insulin dependent diabetes mellitus Leg cramps History of pain when walking Wears glasses Ambulates with cane High cholesterol Stroke/cerebrovascular accident Syncope Dietary restriction History of edema History of echocardiogram History of stress test Cardiology follow-up encounter Irregular heart beat Former smoker DVT (deep venous thrombosis) Pacemaker Diabetes mellitus Paroxysmal supraventricular tachycardia (06/2017) Complete heart block (02/2019) Essential (primary) hypertension Sick sinus syndrome Sinus pause CVA (cerebral vascular accident) (02/2019) Tachyarrhythmia HLD (hyperlipidemia) Home Medications ???Medication ???Instructions ???Recorded ???Last Taken ???Type atorvastatin 80 mg tablet 80 mg PO DAILY cholesterol 03/04/19 08/22/23 History multivitamin (Daily-Yousuf tablet) 1 tab PO DAILY SUPPLEMENT 03/11/22 12/25/23 History ascorbic acid (vitamin C) 500 mg 500 mg PO BID 30 days #60 tabs 03/22/22 08/22/23 Rx tablet (Vitamin C) clopidogrel 75 mg tablet 75 mg PO DAILY 03/14/23 08/16/23 History aspirin 81 mg tablet,delayed 81 mg PO DAILY 04/07/23 Unknown History release insulin glargine 100 unit/mL (3 20 unit subcut .QAM DIABETES 04/07/23 08/22/23 History mL) subcutaneous pen (Lantus Solostar U-100 Insulin) trazodone 50 mg tablet 50 mg PO QHS 04/07/23 12/24/23 History insulin lispro 100 unit/mL 2 unit subcut TID 05/25/23 08/22/23 History subcutaneous pen hydralazine 50 mg tablet 50 mg PO DAILY 06/29/23 Unknown History amlodipine 10 mg tablet 10 mg PO DAILY 08/21/23 Unknown History metoprolol succinate 100 mg 100 mg PO QHS 08/21/23 Unknown History tablet,extended release 24 hr hydrocodone-acetaminophen 5-325mg 1 tab PO Q6H PRN PRN Pain 3 days 08/15/24 Unknown Rx 5mg-325mg #10 TABLETS Allergy/AdvReac Type Severity Reaction Status Date / Time metformin (From Glucophage) AdvReac Diarrhea Verified 08/15/24 15:22 Family History Mother Cancer Father Heart disease Hypertension Myocardial infarction Surgical History History of hand surgery History of carpal tunnel release History of permanent cardiac pacemaker placement (03/05/19) Social History household members: none Smoking Status: Former smoker Smokeless tobacco user: other alcohol intake: never substance use type: does not use ROS ROS ED Constitutional Constitutional ED: Denies chills or fever(s) Eyes Eyes: Denies blurry vision or change in vision ENT ENT ED: Denies rhinorrhea or sore throat Cardiovascular Cardiovascular: Denies chest pain or palpitations Respiratory/Chest Respiratory/Chest: Reports dyspnea and other Details: Chronic shortness of breath. ; Denies cough or dyspnea on exertion Gastrointestinal Gastrointestinal: Denies abdominal pain, melena, nausea or vomiting Genitourinary Genitourinary ED: Denies dysuria, hematuria or urinary frequency Musculoskeletal Musculoskeletal: Denies arthralgias, back pain, myalgias or neck pain Integumentary Denies Abrasions or rash Endocrine Endocrinology: Denies polydipsia or polyuria Hematologic/Lymphatic Hematologic/Lymphatic: De (more content not included)... Normal [facility] Knee 3 Viewson 08-15-2024 Knee 3 Views [facility] Imaging Services [address] [place], [place] [id number] Knee 3 Views MR#: [id number] Acct: [id number] Name: LOU JULIEN Rep #: [id number] : 1955 M 68 From: Louis Regalado MD PCP: Dr. Vera Manrique MD Status: [facility] ER Study: Knee 3 Views Date of Exam: 08/15/24 Exam# [id number] Ordering Dr: Charles Newman MD [id number] EXAM: XR LEFT KNEE, 3 VIEWS CLINICAL INDICATION: Injury/Pain -- Pain over the proximal medial tibia. TECHNIQUE: Three views of the left knee. COMPARISON: No relevant prior studies available. FINDINGS: BONES/JOINTS: Joint spaces are maintained. No other unusual lytic or sclerotic lesions of bone. Question diffuse osteopenia. No joint effusion. No acute or healing fracture or malalignment. SOFT TISSUES: Unremarkable. No soft tissue swelling or gas. No radiopaque foreign body. VASCULATURE: Prominent vascular calcifications posteriorly. RAD/Knee 3 Views IMPRESSION: 1. No acute or healing fracture or malalignment. 2. Question diffuse osteopenia. 3. Prominent vascular calcifications posteriorly. Electronically Signed: Louis Regalado MD at 16:29 EST , CC: Dr. Vera Manrique MD; Dr. 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 Vera Manrique MD Status:DEP ER Location: ED HPI History of Present Illness Chief Complaint: Lower Extremity Injury Informant: patient Narrative Narrative: Awaken at 4 AM with pain in his right calf. No chest pain shortness of breath. No trauma. History of DVT left leg 20 years ago. Currently on aspirin and Plavix therapy. History of pacemaker. CKD history. Prior similar symptoms: Yes PFSH PFSH Medical History Anemia Acute on chronic kidney failure Kidney failure Need for home health care Insulin dependent diabetes mellitus Leg cramps History of pain when walking Wears glasses Ambulates with cane High cholesterol Stroke/cerebrovascular accident Syncope Dietary restriction History of edema History of echocardiogram History of stress test Cardiology follow-up encounter Irregular heart beat Former smoker DVT (deep venous thrombosis) Pacemaker Diabetes mellitus Paroxysmal supraventricular tachycardia (06/2017) Complete heart block (02/2019) Essential (primary) hypertension Sick sinus syndrome Sinus pause CVA (cerebral vascular accident) (02/2019) Tachyarrhythmia HLD (hyperlipidemia) Home Medications ???Medication ???Instructions ???Recorded ???Last Taken ???Type atorvastatin 80 mg tablet 80 mg PO DAILY cholesterol 03/04/19 08/22/23 History multivitamin (Daily-Yousuf tablet) 1 tab PO DAILY SUPPLEMENT 03/11/22 12/25/23 History ascorbic acid (vitamin C) 500 mg 500 mg PO BID 30 days #60 tabs 03/22/22 08/22/23 Rx tablet (Vitamin C) clopidogrel 75 mg tablet 75 mg PO DAILY 03/14/23 08/16/23 History aspirin 81 mg tablet,delayed 81 mg PO DAILY 04/07/23 Unknown History release insulin glargine 100 unit/mL (3 20 unit subcut .QAM DIABETES 04/07/23 08/22/23 History mL) subcutaneous pen (Lantus Solostar U-100 Insulin) trazodone 50 mg tablet 50 mg PO QHS 04/07/23 12/24/23 History insulin lispro 100 unit/mL 2 unit subcut TID 05/25/23 08/22/23 History subcutaneous pen hydralazine 50 mg tablet 50 mg PO DAILY 06/29/23 Unknown History amlodipine 10 mg tablet 10 mg PO DAILY 08/21/23 Unknown History metoprolol succinate 100 mg 100 mg PO QHS 08/21/23 Unknown History tablet,extended release 24 hr Allergy/AdvReac Type Severity Reaction Status Date / Time metformin (From Glucophage) AdvReac Diarrhea Verified 07/11/24 18:02 Family History Mother Cancer Father Heart disease Hypertension Myocardial infarction Surgical History History of hand surgery History of carpal tunnel release History of permanent cardiac pacemaker placement (03/05/19) Social History household members: none Smoking Status: Former smoker Smokeless tobacco user: other alcohol intake: never substance use type: does not use ROS ROS ED Constitutional Constitutional ED: Denies chills, fever(s) or sweats Cardiovascular Cardiovascular: Denies chest pain, leg edema, palpitations or racing heartbeat Respiratory/Chest Respiratory/Chest: Denies cough, dyspnea or dyspnea on exertion Gastrointestinal Gastrointestinal: Denies abdominal pain, diarrhea, nausea or vomiting Genitourinary Genitourinary ED: Denies dysuria, hematuria or urinary frequency Musculoskeletal Musculoskeletal: Reports extremity pain; Denies back pain or neck pain Integumentary Denies rash or wounds Neurologic Neurologic: Denies headache(s), paresthesias or weakness EXAM Physical Exam Const Vital Signs: 07/11/24 18:03 Temperature 97.3 F L Temperature Source Temporal Pulse Rate 69 Respiratory Rate 16 Blood Pressure 155/69 H Blood Pressure Mean 97 Pulse Ox 99 Oxygen Delivery Method Room Air Positive well nourished and well developed General Appearance ED: well developed and NAD HEENT Reports moist mucous membranes normocephalic and atraumatic Eyes EOMs intact bilaterally and conjunctivae normal General Eye ED: Yes normal appearance of both eyes Neck no lymphadenopathy and supple General: Negative for tenderness Chest Wall Chest: Negative for tenderness Resp normal respiratory effort and normal air movement Effort and Inspection: symmetric chest movement; Negative for respiratory distress Cardio regular rate, regular rhythm and no murmurs Peripheral Pulses: pulses 2+ throughout GI normal to inspection, nondistended, normoactive bowel sounds and non-tender Palpation: Negative (more content not included)... Normal [facility] Venous Duplex Imag/Limited/U nion 07-11-2024 Venous Duplex Imag/Limited/Uni [facility] Imaging Services [address] [place], [place] [id number] Venous Duplex Imag/Limited/Uni MR#: [id number] Acct: [id number] Name: LOU JULIEN Rep #: [id number] : 1955 M 68 From: Robin Dubon MD PCP: Dr. Vera Manrique MD Status: [facility] Study: Venous Duplex Imag/Limited/Uni Date of Exam: 09/11/23 Exam# [id number] Ordering Dr: Hua Corcoran DO [id number] STUDY: VENOUS DOPPLER ULTRASOUND - RIGHT LOWER EXTREMITY REASON FOR EXAM: Male, 68 years old. rt posterior calf pain TECHNIQUE: Ultrasound evaluation of the deep vein system to include chery-scale imaging and compression was performed. Chery-scale imaging and Doppler sonographic evaluation, including duplex spectral analysis and qualitative color flow sonography, was performed. COMPARISON: None. FINDINGS: Common Femoral Vein: Normal compression, spontaneity and augmentation. Normal color Doppler. Common Femoral Vein/Greater Saphenous Junction: Normal compression, spontaneity and augmentation. Normal color Doppler. Deep Femoral Vein: Normal compression, spontaneity and augmentation. Normal color Doppler. Femoral Proximal: Normal compression, spontaneity and augmentation. Normal color Doppler. Femoral Middle: Normal compression, spontaneity and augmentation. Normal color Doppler. Femoral Distal: Normal compression, spontaneity and augmentation. Normal color Doppler. Popliteal Vein: Normal compression, spontaneity and augmentation. Normal color Doppler. Posterior Tibial Vein: Normal compression, spontaneity and augmentation. Normal color Doppler. Peroneal Vein: Normal compression, spontaneity and augmentation. Normal color Doppler. US/Venous Duplex Imag/Limited/Uni IMPRESSION: Normal venous Doppler ultrasound of the lower extremity. Electronically Signed: Robin Dubon MD at 20:56 EST Reading Location ID and State: [facility] / [place] Tel , Service support , CC: Dr. Vera Manrique MD; Dr. Hua Corcoran DO 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: Signed Normal [facility] CNPNon 07-08-2024 CNPN Normal [facility] CNOVon 07-01-2024 CNOV Normal [facility] CNPTOUTREACHon 06-28-2024 CNPTOUTREACH Normal [facility] Cardiology Visit Reporton Cardiology Visit Report [facility] [address] [place] [address] OFFICE VISIT Date of Service: 06/12/24 MR#: [id number] Acct: [id number] Name: LOU JULIEN Rep #: [id number] : 1955 Provider: FRANCESCO whitlock Age/Sex: 68/M Location: [facility] Status: Signed HPI HPI History of Present Illness Details: Lou Julien is a 68-year-old gentleman who presents here today for a cardiovascular follow-up. He was last seen in our office in March 2023. He has a history of sick sinus syndrome with pacemaker placement in February 2019, hypertension, hyperlipidemia, diabetes and CVA. He was admitted to the hospital in September of this year with a transient ischemic attack and echocardiogram performed demonstrated preserved ejection fraction of 55%. Pacemaker check demonstrated no evidence of mode switching. He does not have a list of his medications with him. From a cardiac standpoint, the patient is doing well. He denies any palpitations, chest pain, pressure or heaviness. He does acknowledge SOB with exertion-this is nothing new or worsening. He denies Orthopnea, and PND. He does not have bleeding issues; no blood in urine, stool or nosebleeds. He does acknowledge a decrease in energy level. He denies myalgias, or claudication. He does not have edema, or sudden weight gain. He does have occasional lightheadedness with quick positional changes. He denies dizziness, syncopal or near syncopal episodes, and headaches. Intake Vital Signs 03/29/24 11:20 06/12/24 13:17 Height 5 ft 9 in 5 ft 9 in Weight: 158 lb BMI 23.3 BP 138/66 H Blood Pressure Location Lt brachial Position Sitting Respiration 18 Pulse 70 Pulse Source Monitor Pulse Oximetry (%) 98 Intake Visit Reasons: OVERDUE FOR OV/LAST SEEN 03/29 Bisque Cleaner Required: No Is patient in pain?: No Allergies metformin (From Glucophage) Adverse Reaction (Verified 06/12/24 13:27) Diarrhea Medications ???Medication ???Instructions ???Recorded ???Confirmed ???Type atorvastatin 80 mg tablet 80 mg PO DAILY cholesterol 03/04/19 06/12/24 History multivitamin (Daily-Yousuf tablet) 1 tab PO DAILY SUPPLEMENT 03/11/22 06/12/24 History ascorbic acid (vitamin C) 500 mg 500 mg PO BID 30 days #60 tabs 03/22/22 06/12/24 Rx tablet (Vitamin C) clopidogrel 75 mg tablet 75 mg PO DAILY 03/14/23 06/12/24 History aspirin 81 mg tablet,delayed 81 mg PO DAILY 04/07/23 06/12/24 History release insulin glargine 100 unit/mL (3 20 unit subcut .QAM DIABETES 04/07/23 06/12/24 History mL) subcutaneous pen (Lantus Solostar U-100 Insulin) trazodone 50 mg tablet 50 mg PO QHS 04/07/23 06/12/24 History insulin lispro 100 unit/mL 2 unit subcut TID 05/25/23 06/12/24 History subcutaneous pen hydralazine 50 mg tablet 50 mg PO DAILY 06/29/23 01/12/24 History amlodipine 10 mg tablet 10 mg PO DAILY 08/21/23 06/12/24 History metoprolol succinate 100 mg 100 mg PO QHS 08/21/23 06/12/24 History tablet,extended release 24 hr Have you fallen in the past year?: No Nurse's Note: no medication list, has no idea what medications he is taking [facility] Medical History Anemia Acute on chronic kidney failure Kidney failure Need for home health care Insulin dependent diabetes mellitus Leg cramps History of pain when walking Wears glasses Ambulates with cane High cholesterol Stroke/cerebrovascular accident Syncope Dietary restriction History of edema History of echocardiogram History of stress test Cardiology follow-up encounter Irregular heart beat Former smoker DVT (deep venous thrombosis) Pacemaker Diabetes mellitus Paroxysmal supraventricular tachycardia (06/2017) Complete heart block (02/2019) Essential (primary) hypertension Sick sinus syndrome Sinus pause CVA (cerebral vascular accident) (02/2019) Tachyarrhythmia HLD (hyperlipidemia) Surgical History History of hand surgery History of carpal tunnel release History of permanent cardiac pacemaker placement (03/05/19) Family History Mother Cancer Father Heart disease Hypertension Myocardial infarction Social History household members: none Smoking Status: Former smoker Smokeless tobacco user: other alcohol intake: never substance use type: does not use ROS Const Const: Negative for fatigue, weakness, fever(s), headache(s), chills, frequent falls, weight gain or weight loss Eyes Eyes: Negative for blind spots, loss of peripheral vision, transient loss of vision, blurry vision, change in vision, double vision, floaters or tunnel vision ENT ENT: Negative (more content not included)... Normal [facility] CBC W Auto Differential pane l (Bld)on 05-20-2024 Basophils (Bld) [#/Vol] [facility] Basophils/100 WBC (Bld) 0.3 % C [facility] Differential cell count method Nom (Bld) Auto [facility] Eosinophils (Bld) [#/Vol] 0.20 10*3/uL [facility] Eosinophils/100 WBC (Bld) 2.9 % [facility] Erythrocyte distribution width (RBC) [Ratio] 12.9 % 11.5 - 15.0 % [facility] Hematocrit (Bld) [Volume fraction] 24.4 % Low 39.0 - 51.0 % [facility] Hemoglobin (Bld) [Mass/Vol] 8.1 g/dL Low 13.0 - 17.0 g/dL [facility] Immature granulocytes (Bld) [#/Vol] 0.07 10*3/uL [facility] Immature granulocytes/100 WBC (Bld) 1.0 % [facility] Interpretation and review of laboratory results Abnormal [facility] Lymphocytes (Bld) [#/Vol] 1.79 10*3/uL [facility] Lymphocytes/100 WBC (Bld) 26.2 % [facility] MCH (RBC) [Entitic mass] 29.0 pg 26. 0 - 34.0 pg [facility] MCHC (RBC) [Mass/Vol] 33.2 g/dL 30.5 - 36.0 g/dL [facility] MCV (RBC) [Entitic vol] 87.5 fL 80.0 - 100.0 fL [facility] Monocytes (Bld) [#/Vol] 0.47 10*3/uL [facility] Monocytes/100 WBC (Bld) 6.9 % [facility] Neutrophils (Bld) [#/Vol] 4.27 10*3/uL [facility] Neutrophils/100 WBC (Bld) 62.7 % [facility] Nucleated RBC (Bld) [#/Vol] [facility] Nucleated RBC/100 WBC (Bld) [Ratio] 0.0 % /100 WBC [facility] Platelet mean volume (Bld) [Entitic vol] 8.6 fL Low 9.0 - 12.7 fL [facility] Platelets (Bld) [#/Vol] 216 10*3/uL [facility] RBC (Bld) [#/Vol] 2.79 10*6/uL Low 4.20 - 6.00 m/uL [facility] WBC (Bld) [#/Vol] 6.82 10*3/uL [facility] Renal function 2000 panelOrd ered By: Toya Junior on 05-20-2024 Albumin [Mass/Vol] 4.1 g/dL 3.9 - 4.9 g/dL [facility] Anion gap [Moles/Vol] 14 mmol/L 8 - 15 mmol/L [facility] Calcium [Mass/Vol] 9.3 mg/dL 8.5 - 10. 2 mg/dL [facility] Chloride [Moles/Vol] 107 mmol/L 98 - 10 7 mmol/L [facility] CO2 [Moles/Vol] 20 mmol/L Low 22 - 30 mmol/L [facility] Creatinine [Mass/Vol] 4.00 mg/dL High 0.73 - 1.22 mg/dL [facility] GFR/1.73 sq M.predicted among non-blacks MDRD (S/P/Bld) [Vol rate/Area] 16 mL/min/{1.73_m2} Low - PINF [facility] Comment on above: Estimated Glomerular Filtration Rate (eGFR) is calculated using the 2020 CKD-EPI creatinine equation. This equation utilizes serum creatinine, sex, and age as parameters. The creatinine assay has traceable calibration to isotope dilution-mass spectrometry. Refer to KDIGO guidelines for clinical interpretation. In patients with unstable renal function, e.g. those with acute kidney injury, the eGFR may not accurately reflect actual GFR. Glucose [Mass/Vol] 141 mg/dL High 74 - 99 mg/dL [facility] Comment on above: The [place] Diabete s Association (ADA) provides guidance for cutoff values for fasting glucose and random glucose. The ADA defines fasting as no caloric intake for at least 8 hours. Fasting plasma glucose results between 100 to 125 mg/dL indicate increased risk for diabetes (prediabetes). Fasting plasma glucose results greater than or equal to 126 mg/dL meet the criteria for diagnosis of diabetes. In the absence of unequivocal hyperglycemia, results should be confirmed by repeat testing. In a patient with classic symptoms of hyperglycemia or hyperglycemic crisis, random plasma glucose results greater than or equal to 200 mg/dL meet the criteria for diagnosis of diabetes. Reference: Standards of Medical Care in Diabetes 2016, [place] Diabetes Association. Diabetes Care. 2016.39(Suppl 1). Interpretation and review of laboratory results Abnormal [facility] Phosphate [Mass/Vol] 4.5 mg/dL 2.7 - 4 .8 mg/dL [facility] Potassium [Moles/Vol] 4.4 mmol/L 3.7 - 5.1 mmol/L [facility] Sodium [Moles/Vol] 141 mmol/L 136 - 144 mmol/L [facility] Urea nitrogen [Mass/Vol] 58 mg/dL High 9 - 24 mg/dL [facility] HbA1c (Bld)on 05-01-2024 Average glucose Estimated from glycated hemoglobin (Bld) [Mass/Vol] 120 mg/dL [facility] Comment on above: eAG: (Estimated aver age glucose) is a calculated value from HgbA1c and is territory service representative of the average blood glucose level in the last 2-3 month period. HbA1c (Bld) [Mass fraction] 5.8 % High 4.3 - 5.6 % [facility] Comment on above: [place] Diabetes As sociation guidelines indicate that patients with HgbA1c in the range 5.7-6.4% are at increased risk for development of diabetes, and intervention by lifestyle modification may be beneficial. HgbA1c greater or equal to 6.5% is considered diagnostic of diabetes. Interpretation and review of laboratory results Abnormal [facility] LACTATE DEHYDROGENASEOrdered By: Anastasia Saini on 03-08-2024 LDH [Catalytic activity/Vol] 187 U/L 135 - 225 U/L [facility] LDH [Catalytic activity/Vol] Ordered By: Anastasia Saini on 03-08-2024 Interpretation and review of laboratory results Normal [facility] RETICULOCYTE COUNTon 024 Reticulocytes (Bld) [#/Vol] 0.040 10*3/uL [facility] Reticulocytes (Bld) [#/Vol]o n 03-08-2024 Interpretation and review of laboratory results Normal [facility] Reticulocytes/100 RBC (Bld) 1.4 % 0.4 - 2.0 % [facility] XR Chest PA and Lateralon IMPRESSION: No acute radiographic abnormality. 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: OSMANY Transcribe Date/Time: Mar 08 2024 3:43P Dictated by : JAIME TAYLOR MD This examination was interpreted and the report reviewed and electronically signed by: JAIME TAYLOR MD on Mar 08 2024 3:44PM [facility] DIVISION OF RADIOLOGY * * *Final Report* * * DATE OF EXAM: Mar 08 2024 9:24AM [id number] - XR CHEST 2V FRONTAL/LAT / PROCEDURE REASON: multiple diagnoses * * * * Physician Interpretation * * * * EXAMINATION: CHEST RADIOGRAPH (2 VIEW FRONTAL & LATERAL) CLINICAL HISTORY: Anemia, unspecified type Abnormal weight loss MQ: XC2_6 EXAM DATE/TIME: 03/08/2024 9:24 AM COMPARISON: Chest x-ray on 07/26/2023 RESULT: Lines, tubes, and devices: Stable left chest dual-chamber pacemaker. Lungs and pleura: There is a small round opacity projecting over the left lower lung, likely representing nipple shadow. No consolidation. No lung mass. No pleural effusion. No pneumothorax. Cardiomediastinal silhouette: Normal cardiomediastinal silhouette. Bones and soft tissues: Unremarkable. DIVISION OF RADIOLOGY Provider, Masha Carbajal - 03/08/2024 * * *Final Report* * * DATE OF EXAM: Mar 08 2024 9:24AM [id number] - XR CHEST 2V FRONTAL/LAT / PROCEDURE REASON: multiple diagnoses * * * * Physician Interpretation * * * * EXAMINATION: CHEST RADIOGRAPH (2 VIEW FRONTAL & LATERAL) CLINICAL HISTORY: Anemia, unspecified type Abnormal weight loss MQ: XC2_6 EXAM DATE/TIME: 03/08/2024 9:24 AM COMPARISON: Chest x-ray on 07/26/2023 RESULT: Lines, tubes, and devices: Stable left chest dual-chamber pacemaker. Lungs and pleura: There is a small round opacity projecting over the left lower lung, likely representing nipple shadow. No consolidation. No lung mass. No pleural effusion. No pneumothorax. Cardiomediastinal silhouette: Normal cardiomediastinal silhouette. Bones and soft tissues: Unremarkable. IMPRESSION IMPRESSION: No acute radiographic abnormality. 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: OSMANY Transcribe Date/Time: Mar 08 2024 3:43P Dictated by : JAIME TAYLOR MD This examination was interpreted and the report reviewed and electronically signed by: JAIME TAYLOR MD on Mar 08 2024 3:44PM [facility] Radiology Study observation (narrative) [facility] Chest PA and LateralOrder ed By: Ccf Provider on 03-08-2024 [facility] US Abdominal Aorta for cynthia andrade 02-22-2024 IMPRESSION: No sonographic evidence of AAA. 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: OSMANY Transcribe Date/Time: Feb 22 2024 2:15P Dictated by : JAIME TAYLOR MD This examination was interpreted and the report reviewed and electronically signed by: JAIME TAYLOR MD on Feb 22 2024 2:17PM [facility] DIVISION OF RADIOLOGY * * *Final Report* * * DATE OF EXAM: Feb 22 2024 1:22PM U 1028 - US SCREENING AAA / PROCEDURE REASON: Screening for abdominal aortic aneurysm * * * * Physician Interpretation * * * * EXAMINATION: SCREENING ABDOMINAL AORTA ULTRASOUND HISTORY: Screening. TECHNIQUE: Sonography of the abdominal aorta was performed. Images were obtained and stored in a permanent archive. MQ: USAOS_1 COMPARISON: CT abdomen pelvis on 10/23/2019 RESULT: Limitations: Bowel gas. AORTA (AP x TV): Proximal: 2.1 cm x 2.1 cm Mid (level of renal arteries): 1.8 cm x 1.9 cm Distal: 1.5 cm x 1.4 cm Common Iliac Arteries (AP x TV): Right: 1.0 cm x 1.1 cm Left: 1.0 cm x 1.1 cm Atherosclerotic plaque: present DIVISION OF RADIOLOGY Provider, david Del Rio [facility] - 02/22/2024 * * *Final Report* * * DATE OF EXAM: Feb 22 2024 1:22PM [facility]28 - US SCREENING AAA / PROCEDURE REASON: Screening for abdominal aortic aneurysm * * * * Physician Interpretation * * * * EXAMINATION: SCREENING ABDOMINAL AORTA ULTRASOUND HISTORY: Screening. TECHNIQUE: Sonography of the abdominal aorta was performed. Images were obtained and stored in a permanent archive. MQ: USAOS_1 COMPARISON: CT abdomen pelvis on 10/23/2019 RESULT: Limitations: Bowel gas. AORTA (AP x TV): Proximal: 2.1 cm x 2.1 cm Mid (level of renal arteries): 1.8 cm x 1.9 cm Distal: 1.5 cm x 1.4 cm Common Iliac Arteries (AP x TV): Right: 1.0 cm x 1.1 cm Left: 1.0 cm x 1.1 cm Atherosclerotic plaque: present IMPRESSION IMPRESSION: No sonographic evidence of AAA. 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: OSMANY Transcribe Date/Time: Feb 22 2024 2:15P Dictated by : JAIME TAYLOR MD This examination was interpreted and the report reviewed and electronically signed by: JAIME TAYLOR MD on Feb 22 2024 2:17PM [facility] Radiology Study observation (narrative) [facility] US Abdominal Aorta for cynthia Crawfordrdered By: Ccf Provider on 02-22-2024 [facility] CBC W Auto Differential pane l (Bld)on 02-07-2024 Basophils (Bld) [#/Vol] 0.03 10*3/uL [facility] Basophils/100 WBC (Bld) 0.4 % C [facility] Differential cell count method Nom (Bld) Auto [facility] Eosinophils (Bld) [#/Vol] 0.17 10*3/uL [facility] Eosinophils/100 WBC (Bld) 2.3 % [facility] Erythrocyte distribution width (RBC) [Ratio] 12.8 % 11.5 - 15.0 % [facility] Hematocrit (Bld) [Volume fraction] 27.5 % Low 39.0 - 51.0 % [facility] Hemoglobin (Bld) [Mass/Vol] 8.6 g/dL Low 13.0 - 17.0 g/dL [facility] Immature granulocytes (Bld) [#/Vol] 0.03 10*3/uL [facility] Immature granulocytes/100 WBC (Bld) 0.4 % [facility] Interpretation and review of laboratory results Abnormal [facility] Lymphocytes (Bld) [#/Vol] 2.08 10*3/uL [facility] Lymphocytes/100 WBC (Bld) 28.5 % [facility] MCH (RBC) [Entitic mass] 28.2 pg 26. 0 - 34.0 pg [facility] MCHC (RBC) [Mass/Vol] 31.3 g/dL 30.5 - 36.0 g/dL [facility] MCV (RBC) [Entitic vol] 90.2 fL 80.0 - 100.0 fL [facility] Monocytes (Bld) [#/Vol] 0.43 10*3/uL [facility] Monocytes/100 WBC (Bld) 5.9 % C [facility] Neutrophils (Bld) [#/Vol] 4.56 10*3/uL [facility] Neutrophils/100 WBC (Bld) 62.5 % [facility] Nucleated RBC (Bld) [#/Vol] [facility] Nucleated RBC/100 WBC (Bld) [Ratio] 0.0 % /100 WBC [facility] Platelet mean volume (Bld) [Entitic vol] 9.6 fL 9.0 - 12.7 fL [facility] Platelets (Bld) [#/Vol] 231 10*3/uL [facility] RBC (Bld) [#/Vol] 3.05 10*6/uL Low 4.20 - 6.00 m/uL [facility] WBC (Bld) [#/Vol] 7.30 10*3/uL [facility] Basic metabolic 2000 panelOr dered By: Tiffany Richards on 01-02-2024 Anion gap [Moles/Vol] 8 mmol/L Low 9 - 18 mmol/L [facility] Calcium [Mass/Vol] 9.4 mg/dL 8.5 - 10. 2 mg/dL [facility] Chloride [Moles/Vol] 110 mmol/L High 97 - 10 5 mmol/L [facility] CO2 [Moles/Vol] 23 mmol/L 22 - 30 mmol/L [facility] Creatinine [Mass/Vol] 3.17 mg/dL High 0.73 - 1.22 mg/dL [facility] GFR/1.73 sq M.predicted among non-blacks MDRD (S/P/Bld) [Vol rate/Area] 21 mL/min/{1.73_m2} Low - PINF [facility] Comment on above: Estimated Glomerular Filtration Rate (eGFR) is calculated using the 2020 CKD-EPI creatinine equation. This equation utilizes serum creatinine, sex, and age as parameters. The creatinine assay has traceable calibration to isotope dilution-mass spectrometry. Refer to KDIGO guidelines for clinical interpretation. In patients with unstable renal function, e.g. those with acute kidney injury, the eGFR may not accurately reflect actual GFR. Glucose [Mass/Vol] 166 mg/dL High 74 - 99 mg/dL [facility] Comment on above: The [place] Diabete s Association (ADA) provides guidance for cutoff values for fasting glucose and random glucose. The ADA defines fasting as no caloric intake for at least 8 hours. Fasting plasma glucose results between 100 to 125 mg/dL indicate increased risk for diabetes (prediabetes). Fasting plasma glucose results greater than or equal to 126 mg/dL meet the criteria for diagnosis of diabetes. In the absence of unequivocal hyperglycemia, results should be confirmed by repeat testing. In a patient with classic symptoms of hyperglycemia or hyperglycemic crisis, random plasma glucose results greater than or equal to 200 mg/dL meet the criteria for diagnosis of diabetes. Reference: Standards of Medical Care in Diabetes 2016, [place] [employer]. Diabetes Care. 2016.39(Suppl 1). Interpretation and review of laboratory results Abnormal [facility] Potassium [Moles/Vol] 3.9 mmol/L 3.7 - 5.1 mmol/L [facility] Sodium [Moles/Vol] 141 mmol/L 136 - 144 mmol/L [facility] Urea nitrogen [Mass/Vol] 44 mg/dL High 9 - 24 mg/dL [facility] CBC panel Auto (Bld)on 01-01 Erythrocyte distribution width (RBC) [Ratio] 12.9 % 11.5 - 15.0 % [facility] Hematocrit (Bld) [Volume fraction] 25.7 % Low 39.0 - 51.0 % [facility] Hemoglobin (Bld) [Mass/Vol] 8.3 g/dL Low 13.0 - 17.0 g/dL [facility] Interpretation and review of laboratory results Abnormal [facility] MCH (RBC) [Entitic mass] 28.2 pg 26. 0 - 34.0 pg [facility] MCHC (RBC) [Mass/Vol] 32.3 g/dL 30.5 - 36.0 g/dL [facility] MCV (RBC) [Entitic vol] 87.4 fL 80.0 - 100.0 fL [facility] Nucleated RBC (Bld) [#/Vol] NINF [facility] Platelet mean volume (Bld) [Entitic vol] 9.6 fL 9.0 - 12.7 fL [facility] Platelets (Bld) [#/Vol] 206 10*3/uL [facility] RBC (Bld) [#/Vol] 2.94 10*6/uL Low 4.20 - 6.00 m/uL [facility] WBC (Bld) [#/Vol] 6.46 10*3/uL [facility] CBC W Auto Differential pane l (Bld)on 09-13-2023 Basophils (Bld) [#/Vol] 0.03 10*3/uL <0.11 k/uL [facility] Basophils/100 WBC (Bld) 0.4 % [facility] Differential cell count method Nom (Bld) Auto [facility] Eosinophils (Bld) [#/Vol] 0.11 10*3/uL <0.46 k/uL [facility] Eosinophils/100 WBC (Bld) 1.3 % [facility] Erythrocyte distribution width (RBC) [Ratio] 13.5 % 11.5 - 15.0 % [facility] Hematocrit (Bld) [Volume fraction] 25.6 % Low 39.0 - 51.0 % [facility] Hemoglobin (Bld) [Mass/Vol] 8.2 g/dL Low 13.0 - 17.0 g/dL [facility] Immature granulocytes (Bld) [#/Vol] 0.05 10*3/uL <0.10 k/uL [facility] Immature granulocytes/100 WBC (Bld) 0.6 % [facility] Lymphocytes (Bld) [#/Vol] 1.57 10*3/uL 1.00 - 4.00 k/uL [facility] Lymphocytes/100 WBC (Bld) 19.0 % [facility] MCH (RBC) [Entitic mass] 28.0 pg 26. 0 - 34.0 pg [facility] MCHC (RBC) [Mass/Vol] 32.0 g/dL 30.5 - 36.0 g/dL [facility] MCV (RBC) [Entitic vol] 87.4 fL 80.0 - 100.0 fL [facility] Monocytes (Bld) [#/Vol] 0.50 10*3/uL <0.87 k/uL [facility] Monocytes/100 WBC (Bld) 6.0 % [facility] Neutrophils (Bld) [#/Vol] 6.02 10*3/uL 1.45 - 7.50 k/uL [facility] Neutrophils/100 WBC (Bld) 72.7 % [facility] Nucleated RBC (Bld) [#/Vol] <0.01 k/uL [facility] Nucleated RBC/100 WBC (Bld) [Ratio] 0.0 /100 WBC [facility] Platelet mean volume (Bld) [Entitic vol] 9.8 fL 9.0 - 12.7 fL [facility] Platelets (Bld) [#/Vol] 265 10*3/uL 150 - 400 k/uL [facility] RBC (Bld) [#/Vol] 2.93 10*6/uL Low 4.20 - 6.00 m/uL [facility] WBC (Bld) [#/Vol] 8.28 10*3/uL 3.70 - 11.00 k/uL [facility] Thin prep Papanicolaou smear with manual screeningOrdered By: Wilton Friend on 08-23-2023 Thin prep Papanicolaou smear with manual screening 62 mg/dL 74-106 [facility] Comment on above: MANAGEMENT OF PATIEN T CARE PER NURSING PROTOCOL XR Chest PA and Lateralon IMPRESSION: No acute radiographic abnormality. 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: PSCB Transcribe Date/Time: Jul 27 2023 1:09P Dictated by : JAIME TAYLOR MD This examination was interpreted and the report reviewed and electronically signed by: JAIME TAYLOR MD on Jul 27 2023 1:10PM EST DIVISION OF RADIOLOGY * * *Final Report* * * DATE OF EXAM: Jul 26 2023 4:05PM [id number] - XR CHEST 2V FRONTAL/LAT / PROCEDURE REASON: Rib pain on right side * * * * Physician Interpretation * * * * EXAMINATION: CHEST RADIOGRAPH (2 VIEW FRONTAL & LATERAL) CLINICAL HISTORY: Rib pain on right side MQ: XC2_6 EXAM DATE/TIME: 07/26/2023 4:05 PM COMPARISON: Chest x-ray on 01/25/2023 RESULT: Lines, tubes, and devices: No change in position of left chest dual-chamber pacemaker. Lungs and pleura: No consolidation. No lung mass. No pleural effusion. No pneumothorax. Cardiomediastinal silhouette: Stable cardiomediastinal silhouette. Bones and soft tissues: Unremarkable. DIVISION OF RADIOLOGY Provider, [facility] - 07/27/2023 * * *Final Report* * * DATE OF EXAM: Jul 26 2023 4:05PM [id number] - XR CHEST 2V FRONTAL/LAT / PROCEDURE REASON: Rib pain on right side * * * * Physician Interpretation * * * * EXAMINATION: CHEST RADIOGRAPH (2 VIEW FRONTAL & LATERAL) CLINICAL HISTORY: Rib pain on right side MQ: XC2_6 EXAM DATE/TIME: 07/26/2023 4:05 PM COMPARISON: Chest x-ray on 01/25/2023 RESULT: Lines, tubes, and devices: No change in position of left chest dual-chamber pacemaker. Lungs and pleura: No consolidation. No lung mass. No pleural effusion. No pneumothorax. Cardiomediastinal silhouette: Stable cardiomediastinal silhouette. Bones and soft tissues: Unremarkable. IMPRESSION IMPRESSION: No acute radiographic abnormality. 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: PSCB Transcribe Date/Time: Jul 27 2023 1:09P Dictated by : JAIME TAYLOR MD This examination was interpreted and the report reviewed and electronically signed by: JAIME TAYLOR MD on Jul 27 2023 1:10PM EST [facility] XR Chest PA and LateralOrder ed By: [facility] Provider on 07-27-2023 [facility] XR Chest PA and Lateralon Radiology Study observation (narrative) [facility] Basic metabolic 2000 panelon 07-11-2023 Anion gap [Moles/Vol] 11 mmol/L 9 - 18 mmol/L [facility] Calcium [Mass/Vol] 9.2 mg/dL 8.5 - 10. 2 mg/dL [facility] Chloride [Moles/Vol] 110 mmol/L High 97 - 10 5 mmol/L [facility] CO2 [Moles/Vol] 19 mmol/L Low 22 - 30 mmol/L [facility] Creatinine [Mass/Vol] 2.80 mg/dL High 0.73 - 1.22 mg/dL [facility] Estimated Glomerular Filtration Rate 24 mL/min/1.73m Low >=60 mL/min/1.7 3m [facility] Glucose [Mass/Vol] 169 mg/dL High 74 - 99 mg/dL [facility] Potassium [Moles/Vol] 5.3 mmol/L High 3.7 - 5.1 mmol/L [facility] Sodium [Moles/Vol] 140 mmol/L 136 - 144 mmol/L [facility] Urea nitrogen [Mass/Vol] 49 mg/dL High 9 - 24 mg/dL [facility] Direct antiglobulin test.bernadine y specific reagent Ql (RBC)on 07-11-2023 DAGT, Polyspecific AHG Negative Cl [facility] Absolute lymphocyte countOrd ered By: Leonel Horton on 06-29-2023 Lymphocytes Auto (Unsp spec) [#/Vol] 1.86 10*3/uL 0.83-4.51 [facility] Basophil percentageOrdered B y: Leonel Horton on 06-29-2023 Basophil percentage 0-5 SEEN /hpf 0-5 [facility] Basophils/100 WBC (Bld) 0.4 % 0-1 [facility] Bilirubin [Mass/Vol] 0.20 mg/dL 0.20-1.00 [facility] Comment on above: For patients on eltr ombopag therapy, use of Dimension [place] TBIL is not recommended. Chloride [Moles/Vol] 113 mmol/L 98-107 [facility] Eosinophils/100 WBC (Bld) 2.3 % 0-5 [facility] Glucose [Mass/Vol] 161 mg/dL 74-106 [facility] Comment on above: Fasting Glucose resu lt greater than or equal to 126 mg/dL suggests DIABETES MELLITUS per A.D.A. criteria. Neutrophils (Bld) [#/Vol] 4.8 10*3/uL 2.0-7.7 [facility] Neutrophils/100 WBC (Bld) 64.9 % 47-70 [facility] Potassium [Moles/Vol] 3.9 mmol/L 3.5-5.1 [facility] Protein [Mass/Vol] 6.0 g/dL 6.4-8.2 [facility] Sodium [Moles/Vol] 140 mmol/L 136-145 [facility] WBC (Bld) [#/Vol] 7.4 10*3/uL 4.4-11.0 [facility] Bilirubin Test strip Ql (U)O rdered By: Leonel Horton on 06-29-2023 Bilirubin Ql (U) Negative Negative [facility] Blood erythrocytes count (nu mber/volume)Ordered By: Leonel Horton on 06-29-2023 RBC (Bld) [#/Vol] 2.94 10*6/uL 4.6-6.2 [facility] Blood hemoglobin measurement (mass/volume)Ordered By: Leonel Horton on 06-29-2023 Hemoglobin (Bld) [Mass/Vol] 8.2 g/dL 13.0-16.5 [facility] Blood lymphocytes/100 leukoc ytesOrdered By: Leonel Horton on 06-29-2023 Lymphocytes/100 WBC (Bld) 25.1 % 19-41 [facility] Blood monocytes/100 leukocyt esOrdered By: Leonel Horton on 06-29-2023 Monocytes/100 WBC (Bld) 5.8 % 0-10 [facility] Blood platelet mean volumeOr dered By: Leonel Horton on 06-29-2023 Platelet mean volume (Bld) [Entitic vol] 9.4 fL 6.2-12.0 [facility] Determination of erythrocyte mean corpuscular volume (MCV)Ordered By: Leonel Horton on 06-29-2023 MCV (RBC) [Entitic vol] 86.1 fL 80-94 [facility] Direct bilirubinOrdered By: Leonel Horton on 06-29-2023 Bilirubin.direct [Mass/Vol] 0.05 mg/dL 0.00-0.30 [facility] Hematocrit Auto (Bld) [Volum e fraction]Ordered By: Leonel Horton on 06-29-2023 Hematocrit (Bld) [Volume fraction] 25.3 % 40-54 [facility] Ketones Test strip Ql (U)Ord ered By: Leonel Horton on 06-29-2023 Ketones Ql (U) Negative Negative [facility] Laboratory - Chemistry and C hemistry - challengeOrdered By: Leonel Horton on 06-29-2023 ALP [Catalytic activity/Vol] 90 U/L 45-117 [facility] ALT [Catalytic activity/Vol] 22 U/L 16-61 [facility] CO2 [Moles/Vol] 20.0 mmol/L 21.0-32.0 [facility] Globulin (S) [Mass/Vol] 3.0 g/dL 2.2-4.2 [facility] Lipase [Catalytic activity/Vol] 24 U/L 13-75 [facility] Comment on above: Please note:LIPASE r evised reference range effective 22. New Lipase methodology. Expected to produce lower values than the previous assay method. NEW Reference Range: 13 - 75 U/L Urea nitrogen/Creatinine [Mass ratio] 19.1 mg/mg 10-20 [facility] Laboratory - Hematology and Cell countsOrdered By: Leonel Horton on 06-29-2023 Erythrocyte distribution width (RBC) [Entitic vol] 41.2 fL 35.1-43.9 [facility] Erythrocyte distribution width (RBC) [Ratio] 13.2 % 11.6-14.6 [facility] Immature granulocytes/100 WBC (Bld) 1.500 % 0.0-0.9 [facility] Comment on above: IG% - Immature Granu locytes (promyelocytes, myelocytes and metamyelocytes) > 1% indicates that a LEFT SHIFT is Present. MCH (RBC) [Entitic mass] 27.9 pg 27.0-32.0 [facility] Nucleated RBC/100 WBC (Bld) [Ratio] 0 % 0-5 [facility] MCHC Auto (RBC) [Mass/Vol]Or dered By: Leonel Horton on 06-29-2023 MCHC (RBC) [Mass/Vol] 32.4 g/dL 32-36 [facility] Mucus LM Ql (Urine sed)Order ed By: Leonel Horton on 06-29-2023 Mucus Ql (Urine sed) 0 SEEN /hpf [facility] Nitrite Test strip Ql (U)Ord ered By: Leonel Horton on 06-29-2023 Nitrite Ql (U) Negative Negative [facility] No Panel InformationOrdered By: Leonel Horton on 06-29-2023 Estimated Creatinine Clearance Calc 21.80 ml/min [facility] Estimated GFR (MDRD) Amer 24 mL/min >60 [facility] Comment on above: GFR Calc Estimated GFR (MDRD) Non-Af Amer 20 mL/min >60 [facility] Comment on above: Non- GFR Calc Platelets bldOrdered By: Joes Horton on 06-29-2023 Platelets (Bld) [#/Vol] 227 10*3/uL 150-450 [facility] Protein Test strip Ql (U)Ord ered By: Leonel Horton on 06-29-2023 Protein Ql (U) 500 mg/dl Negative [facility] Serum or plasma albumin harshad urement (mass/volume)Ordered By: Leonel Horton on 06-29-2023 Albumin [Mass/Vol] 3.0 g/dL 3.2-5.0 [facility] Serum or plasma calcium harshad urement (mass/volume)Ordered By: Leonel Horton on 06-29-2023 Calcium [Mass/Vol] 8.4 mg/dL 8.5-10.1 [facility] Serum or plasma creatinine m easurement (mass/volume)Ordered By: Leonel Horton on 06-29-2023 Creatinine [Mass/Vol] 3.35 mg/dL 0.70-1.30 [facility] Comment on above: The validity of the calculated GFR & GFRAA in patients over 70 years has not been determined. Clinical correlation is essential. Serum or plasma urea nitroge n measurement (mass/volume)Ordered By: Leonel Horton on 06-29-2023 Urea nitrogen [Mass/Vol] 64 mg/dL 7-18 [facility] Squamous epithelial cells de tection in urine sediment by light microscopyOrdered By: Leonel Horton on 06-29-2023 Epithelial cells.squamous LM Ql (Urine sed) 0-5 SEEN /hpf 0-5 [facility] Thin prep Papanicolaou smear with manual screeningOrdered By: Leonel Horton on 06-29-2023 Thin prep Papanicolaou smear with manual screening 15 U/L 15-37 [facility] Thin prep Papanicolaou smear with manual screening 7 5-15 [facility] Urine blood detectionOrdered By: Leonel Horton on 06-29-2023 RBC Ql (U) Negative Negative [facility] RBC Ql (U) 0 SEEN /hpf 0-5 [facility] Urine clarityOrdered By: Jose Horton on 06-29-2023 Clarity (U) Clear Clear [facility] Urine color determinationOrd ered By: Leonel Horton on 06-29-2023 Color (U) Yellow Yellow [facility] Urine glucose detectionOrder ed By: Leonel Horton on 06-29-2023 Glucose Ql (U) 50 mg/dl Normal [facility] Urine leukocyte esterase det ection by dipstickOrdered By: Leonel Horton on 06-29-2023 Leukocyte esterase Test strip Ql (U) Negative Negative [facility] Urine pHOrdered By: Leonel durant on 06-29-2023 pH (U) 5.0 [pH] 5.0 - 8.0 [facility] Urine sediment bacteria coun t by microscopy (number/high power field)Ordered By: Leonel Horton on 06-29-2023 Bacteria LM.HPF (Urine sed) [#/Area] 0 /[HPF] None Seen [facility] Urine specific gravity measu rementOrdered By: Leonel Horton on 06-29-2023 Specific gravity (U) [Rel density] 1.015 1.002-1.03 0 [facility] Urobilinogen Auto test strip Ql (U)Ordered By: Leonel Horton on 06-29-2023 Urobilinogen Ql (U) Normal mg/dl Normal [facility] Glucose Glucometer (BldC) [M ass/Vol]Ordered By: Wilton Javier on 06-22-2023 Glucose [Mass/Vol] 119 mg/dL 74-106 [facility] Comment on above: MANAGEMENT OF PATIEN T CARE PER NURSING PROTOCOL Urine creatinine measurement (mass/volume)Ordered By: Anastasia Stark on 04-11-2023 Creatinine (U) [Mass/Vol] 86.30 mg/dL NO RANGE EST. [facility] Urine protein measurement (m ass/volume)Ordered By: Anastasia Stark on 04-11-2023 Protein (U) [Mass/Vol] 357.2 mg/dL 0.0-11.8 [facility] Urine protein/creatinine mas s ratioOrdered By: Anastasia Stark on 04-11-2023 Protein/Creatinine (U) [Mass ratio] 4139 mg/g CRE 0-200 [facility] Calcium.ionized [Moles/Vol]o n 04-03-2023 Calcium.ionized (Bld) [Mass/Vol] 1.23 mmol/L 1.08 - 1.30 mmol/L [facility] Calcium.ionized adjusted to pH 7.4 (Bld) [Moles/Vol] 1.19 mmol/L 1.08 - 1.30 mmol/L [facility] Absolute lymphocyte countOrd ered By: Wilton Javier on 03-14-2023 Lymphocytes Auto (Unsp spec) [#/Vol] 1.56 10*3/uL 0.83-4.51 [facility] Albumin Elph [Mass/Vol]Order ed By: Wilton Javier on 03-14-2023 Albumin [Mass/Vol] 3.1 g/dL 2.9-4.4 [facility] Basophil percentageOrdered B y: Wilton Javier on 03-14-2023 Basophils/100 WBC (Bld) 0.3 % 0-1 [facility] Eosinophils/100 WBC (Bld) 1.9 % 0-5 [facility] LDH [Catalytic activity/Vol] 202 U/L 87-241 [facility] Neutrophils (Bld) [#/Vol] 5.0 10*3/uL 2.0-7.7 [facility] Neutrophils/100 WBC (Bld) 68.7 % 47-70 [facility] WBC (Bld) [#/Vol] 7.3 10*3/uL 4.4-11.0 [facility] Blood erythrocytes count (nu mber/volume)Ordered By: Wilton Javier on 03-14-2023 RBC (Bld) [#/Vol] 3.09 10*6/uL 4.6-6.2 [facility] Blood hemoglobin measurement (mass/volume)Ordered By: Wilton Javier on 03-14-2023 Hemoglobin (Bld) [Mass/Vol] 8.9 g/dL 13.0-16.5 [facility] Blood lymphocytes/100 leukoc ytesOrdered By: Wilton Javier on 03-14-2023 Lymphocytes/100 WBC (Bld) 21.5 % 19-41 [facility] Blood monocytes/100 leukocyt esOrdered By: Wilton Javier on 03-14-2023 Monocytes/100 WBC (Bld) 7.0 % 0-10 [facility] Blood platelet mean volumeOr dered By: Wilton Javier on 03-14-2023 Platelet mean volume (Bld) [Entitic vol] 9.2 fL 6.2-12.0 [facility] Determination of erythrocyte mean corpuscular volume (MCV)Ordered By: Wilton Javier on 03-14-2023 MCV (RBC) [Entitic vol] 84.5 fL 80-94 [facility] Hematocrit Auto (Bld) [Volum e fraction]Ordered By: Wilton Javier on 03-14-2023 Hematocrit (Bld) [Volume fraction] 26.1 % 40-54 [facility] Hemoglobin in reticulocytes (mass per reticulocyte)Ordered By: Wilton Javier on 03-14-2023 Hemoglobin (Reticulocytes) [Entitic mass] 31.6 pg 30-35 [facility] Interpretation of serum or p lasma protein pattern by immunofixation (narrative resultOrdered By: Wilton Javier on 03-14-2023 Protein Fractions Immunofixation Enrique [Interp] See comment [facility] Comment on above: NOT OBSERVED Iron measurement (mass/mass) Ordered By: Wilton Javier on 03-14-2023 Iron (Unsp spec) [Mass/Mass] 50 ug/dL 65-175 [facility] Laboratory - Hematology and Cell countsOrdered By: Wilton Javier on 03-14-2023 Erythrocyte distribution width (RBC) [Entitic vol] 40.6 fL 35.1-43.9 [facility] Erythrocyte distribution width (RBC) [Ratio] 13.2 % 11.6-14.6 [facility] Immature granulocytes/100 WBC (Bld) 0.600 % 0.0-0.9 [facility] Comment on above: IG% - Immature Granu locytes (promyelocytes, myelocytes and metamyelocytes) > 1% indicates that a LEFT SHIFT is Present. MCH (RBC) [Entitic mass] 28.8 pg 27.0-32.0 [facility] Nucleated RBC/100 WBC (Bld) [Ratio] 0 % 0-5 [facility] MCHC Auto (RBC) [Mass/Vol]Or dered By: Wilton Javier on 03-14-2023 MCHC (RBC) [Mass/Vol] 34.1 g/dL 32-36 [facility] No Panel InformationOrdered By: Wilton Javier on 03-14-2023 Addendum Document Comment . [facility] Comment on above: Protein electrophore sis scan will follow via computer,mail, or adult family home program manager delivery. Haptoglobin 154 mg/dL 32-363 [facility] Comment on above: Performed at: [address] [id number] Director: Dhruv Johnson PhD, Phone: [phone] Immature Reticulocyte Fraction 7.90 % 3.00-15.90 [facility] Reticulocyte Count 1.74 % 0.5-1.5 [facility] Total Iron Binding Capacity 210 ug/dL 250-450 [facility] Platelets bldOrdered By: Keshawn Javier on 03-14-2023 Platelets (Bld) [#/Vol] 230 10*3/uL 150-450 [facility] Serum [id number] measu rement by electrophoresisOrdered By: Wilton Javier on 03-14-2023 Alpha 1 globulin Elph [Mass/Vol] 0.2 g/dL 0.0-0.4 [facility] Alpha 1 globulin Elph [Mass/Vol] 0.8 g/dL 0.4-1.0 [facility] Serum globulin measurement ( mass/volume)Ordered By: Wilton Javier on 03-14-2023 Globulin (S) [Mass/Vol] 2.5 g/dL 2.2-3.9 [facility] Serum or plasma IgA measurem ent (mass/volume)Ordered By: Wilton Javier on 03-14-2023 IgA [Mass/Vol] 176 mg/dL 61-437 [facility] Serum or plasma IgG measurem ent (mass/volume)Ordered By: Wilton Javier on 03-14-2023 IgG [Mass/Vol] 680 mg/dL 603-1613 [facility] Serum or plasma IgM measurem ent (mass/volume)Ordered By: Wilton Javier on 03-14-2023 IgM [Mass/Vol] 41 mg/dL 20-172 [facility] Serum or plasma beta globuli n measurement by electrophoresis (mass/volume)Ordered By: Wilton Javier on 03-14-2023 Beta globulin Elph [Mass/Vol] 0.8 g/dL 0.7-1.3 [facility] Serum or plasma ferritin rick surement (mass/volume)Ordered By: Wilton Javier on 03-14-2023 Ferritin [Mass/Vol] 128 ng/mL 26-388 [facility] Serum or plasma gamma globul in measurement by electrophoresis (mass/volume)Ordered By: Wilton Javier on 03-14-2023 Gamma globulin Elph [Mass/Vol] 0.6 g/dL 0.4-1.8 [facility] Serum or plasma immunoelectr ophoresis interpretation (nominal result)Ordered By: Wilton Javier on 03-14-2023 Interpretation IEP [Interp] Comment . [facility] Comment on above: No monoclonality det ected. Thin prep Papanicolaou smear with manual screeningOrdered By: Wilton Javier on 03-14-2023 Thin prep Papanicolaou smear with manual screening 1.3 0.7-1.7 [facility] Total protein bloodOrdered B y: Wilton Javier on 03-14-2023 Protein [Mass/Vol] 5.6 g/dL 6.0-8.5 [facility] Basic metabolic 2000 panelon 02-15-2023 Anion gap [Moles/Vol] 12 mmol/L 9 - 18 mmol/L [facility] Calcium [Mass/Vol] 8.3 mg/dL Low 8.5 - 10. 2 mg/dL [facility] Chloride [Moles/Vol] 109 mmol/L High 97 - 10 5 mmol/L [facility] CO2 [Moles/Vol] 20 mmol/L Low 22 - 30 mmol/L [facility] Creatinine [Mass/Vol] 2.59 mg/dL High 0.73 - 1.22 mg/dL [facility] Estimated Glomerular Filtration Rate 27 mL/min/1.73m Low >=60 mL/min/1.7 3m [facility] Glucose [Mass/Vol] 70 mg/dL Low 74 - 99 mg/dL [facility] Potassium [Moles/Vol] 4.1 mmol/L 3.7 - 5.1 mmol/L [facility] Sodium [Moles/Vol] 141 mmol/L 136 - 144 mmol/L [facility] Urea nitrogen [Mass/Vol] 55 mg/dL High 9 - 24 mg/dL [facility] CBC W Auto Differential pane l (Bld)on 02-14-2023 Basophils (Bld) [#/Vol] <0.11 k/uL [facility] Basophils/100 WBC (Bld) 0.3 % [facility] cell count method Nom (Bld) Auto [facility] Eosinophils (Bld) [#/Vol] 0.17 10*3/uL <0.46 k/uL [facility] Eosinophils/100 WBC (Bld) 2.4 % [facility] Erythrocyte distribution width (RBC) [Ratio] 13.3 % 11.5 - 15.0 % [facility] Hematocrit (Bld) [Volume fraction] 27.5 % Low 39.0 - 51.0 % [facility] Hemoglobin (Bld) [Mass/Vol] 8.9 g/dL Low 13.0 - 17.0 g/dL [facility] Immature granulocytes (Bld) [#/Vol] 0.06 10*3/uL <0.10 k/uL [facility] Immature granulocytes/100 WBC (Bld) 0.8 % [facility] Lymphocytes (Bld) [#/Vol] 1.90 10*3/uL 1.00 - 4.00 k/uL [facility] Lymphocytes/100 WBC (Bld) 26.5 % [facility] MCH (RBC) [Entitic mass] 27.6 pg 26. 0 - 34.0 pg [facility] MCHC (RBC) [Mass/Vol] 32.4 g/dL 30.5 - 36.0 g/dL [facility] MCV (RBC) [Entitic vol] 85.1 fL 80.0 - 100.0 fL [facility] Monocytes (Bld) [#/Vol] 0.47 10*3/uL <0.87 k/uL [facility] Monocytes/100 WBC (Bld) 6.6 % [facility] Neutrophils (Bld) [#/Vol] 4.54 10*3/uL 1.45 - 7.50 k/uL [facility] Neutrophils/100 WBC (Bld) 63.4 % [facility] Nucleated RBC (Bld) [#/Vol] <0.01 k/uL [facility] Nucleated RBC/100 WBC (Bld) [Ratio] 0.0 /100 WBC [facility] Platelet mean volume (Bld) [Entitic vol] 9.8 fL 9.0 - 12.7 fL [facility] Platelets (Bld) [#/Vol] 233 10*3/uL 150 - 400 k/uL [facility] RBC (Bld) [#/Vol] 3.23 10*6/uL Low 4.20 - 6.00 m/uL [facility] WBC (Bld) [#/Vol] 7.16 10*3/uL 3.70 - 11.00 k/uL [facility] ALBUMIN/CREAT RATIO RND URon 01-26-2023 Albumin DL <= 20 mg/L (U) [Mass/Vol] 3642.7 mg/L [facility] Albumin/Creatinine (U) [Mass ratio] 4876 mg/g High <30 mg/g [facility] Creatinine (U) [Mass/Vol] 74.7 mg/dL 20.0 - 300.0 mg/dL [facility] Comprehensive metabolic 2000 panelon 01-26-2023 Albumin [Mass/Vol] 3.7 g/dL Low 3.9 - 4.9 g/dL [facility] ALP [Catalytic activity/Vol] 125 U/L High 38 - 113 U/L [facility] ALT [Catalytic activity/Vol] 17 U/L 10 - 54 U/L [facility] Anion gap [Moles/Vol] 12 mmol/L 9 - 18 mmol/L [facility] AST [Catalytic activity/Vol] 22 U/L 14 - 40 U/L [facility] Bilirubin [Mass/Vol] 0.2 mg/dL 0.2 - 1 .3 mg/dL [facility] Calcium [Mass/Vol] 8.3 mg/dL Low 8.5 - 10. 2 mg/dL [facility] Chloride [Moles/Vol] 107 mmol/L High 97 - 10 5 mmol/L [facility] CO2 [Moles/Vol] 21 mmol/L Low 22 - 30 mmol/L [facility] Creatinine [Mass/Vol] 2.53 mg/dL High 0.73 - 1.22 mg/dL [facility] Estimated Glomerular Filtration Rate 27 mL/min/1.73m Low >=60 mL/min/1.7 3m [facility] Glucose [Mass/Vol] 183 mg/dL High 74 - 99 mg/dL [facility] Potassium [Moles/Vol] 4.4 mmol/L 3.7 - 5.1 mmol/L [facility] Protein [Mass/Vol] 6.2 g/dL Low 6.3 - 8.0 g/dL [facility] Sodium [Moles/Vol] 140 mmol/L 136 - 144 mmol/L [facility] Urea nitrogen [Mass/Vol] 52 mg/dL High 9 - 24 mg/dL [facility] TSH BLDon 01-26-2023 TSH Qn 2.250 m[IU]/L 0.270 - 4.200 mIU/L [facility] XR Chest PA and Lateralon IMPRESSION: No acute radiographic abnormality. 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: [facility] Transcribe Date/Time: Jan 26 2023 10:35A Dictated by : DENISA SORIANO MD This examination was interpreted and the report reviewed and electronically signed by: DENISA SORIANO MD on Jan 26 2023 10:36AM [facility] DIVISION OF RADIOLOGY * * *Final Report* * * DATE OF EXAM: Jan 25 2023 3:41PM WOX 5291 - XR CHEST 2V FRONTAL/LAT / PROCEDURE REASON: Dyspnea on exertion * * * * Physician Interpretation * * * * EXAMINATION: CHEST RADIOGRAPH (2 VIEW FRONTAL & LATERAL) CLINICAL HISTORY: Dyspnea on exertion MQ: XC2_6 EXAM DATE/TIME: 01/25/2023 3:41 PM COMPARISON: 08/27/2019 RESULT: Lines, tubes, and devices: Left ICD/pacemaker and leads. Lungs and pleura: Mild anterior eventration of the right hemidiaphragm. No consolidation. No lung mass. No pleural effusion. No pneumothorax. Cardiomediastinal silhouette: Stable cardiomediastinal silhouette. Bones and soft tissues: Degenerative changes are present within the thoracic spine. DIVISION OF RADIOLOGY Provider, [facility] - 01/26/2023 * * *Final Report* * * DATE OF EXAM: Jan 25 2023 3:41PM WOX 5291 - XR CHEST 2V FRONTAL/LAT / PROCEDURE REASON: Dyspnea on exertion * * * * Physician Interpretation * * * * EXAMINATION: CHEST RADIOGRAPH (2 VIEW FRONTAL & LATERAL) CLINICAL HISTORY: Dyspnea on exertion MQ: XC2_6 EXAM DATE/TIME: 01/25/2023 3:41 PM COMPARISON: 08/27/2019 RESULT: Lines, tubes, and devices: Left ICD/pacemaker and leads. Lungs and pleura: Mild anterior eventration of the right hemidiaphragm. No consolidation. No lung mass. No pleural effusion. No pneumothorax. Cardiomediastinal silhouette: Stable cardiomediastinal silhouette. Bones and soft tissues: Degenerative changes are present within the thoracic spine. IMPRESSION IMPRESSION: No acute radiographic abnormality. 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[facility] Transcribe Date/Time: Jan 26 2023 10:35A Dictated by : DENISA SORIANO MD This examination was interpreted and the report reviewed and electronically signed by: DENISA SORIANO MD on Jan 26 2023 10:36AM EST [facility] XR Chest PA and LateralOrder ed By: [facility] Provider on 01-26-2023 [facility] CBC W Auto Differential pane l (Bld)on 01-25-2023 Basophils (Bld) [#/Vol] 0.03 10*3/uL <0.11 k/uL [facility] Basophils/100 WBC (Bld) 0.3 % C [facility] Differential cell count method Nom (Bld) Auto [facility] Eosinophils (Bld) [#/Vol] 0.16 10*3/uL <0.46 k/uL [facility] Eosinophils/100 WBC (Bld) 1.8 % [facility] Erythrocyte distribution width (RBC) [Ratio] 13.5 % 11.5 - 15.0 % [facility] Hematocrit (Bld) [Volume fraction] 28.5 % Low 39.0 - 51.0 % [facility] Hemoglobin (Bld) [Mass/Vol] 9.2 g/dL Low 13.0 - 17.0 g/dL [facility] Immature granulocytes (Bld) [#/Vol] 0.05 10*3/uL <0.10 k/uL [facility] Immature granulocytes/100 WBC (Bld) 0.6 % [facility] Lymphocytes (Bld) [#/Vol] 2.33 10*3/uL 1.00 - 4.00 k/uL [facility] Lymphocytes/100 WBC (Bld) 26.5 % [facility] MCH (RBC) [Entitic mass] 28.1 pg 26. 0 - 34.0 pg [facility] MCHC (RBC) [Mass/Vol] 32.3 g/dL 30.5 - 36.0 g/dL [facility] MCV (RBC) [Entitic vol] 87.2 fL 80.0 - 100.0 fL [facility] Monocytes (Bld) [#/Vol] 0.56 10*3/uL <0.87 k/uL [facility] Monocytes/100 WBC (Bld) 6.4 % C [facility] Neutrophils (Bld) [#/Vol] 5.66 10*3/uL 1.45 - 7.50 k/uL [facility] Neutrophils/100 WBC (Bld) 64.4 % [facility] Nucleated RBC (Bld) [#/Vol] <0.01 k/uL [facility] Nucleated RBC/100 WBC (Bld) [Ratio] 0.0 /100 WBC [facility] Platelet mean volume (Bld) [Entitic vol] 9.7 fL 9.0 - 12.7 fL [facility] Platelets (Bld) [#/Vol] 277 10*3/uL 150 - 400 k/uL [facility] RBC (Bld) [#/Vol] 3.27 10*6/uL Low 4.20 - 6.00 m/uL [facility] WBC (Bld) [#/Vol] 8.79 10*3/uL 3.70 - 11.00 k/uL [facility] XR CHEST 2V FRONTAL/LATon [facility] XR Chest PA and Lateralon Radiology Study observation (narrative) [facility] HEMOGLOBIN A1C (POC)on 11-16 HbA1c (Bld) [Mass fraction] 7.7 % Abnormal 4.2 - 5.6 % [facility] Absolute lymphocyte countOrd ered By: Dr. Reinoso on 10-02-2022 Lymphocytes Auto (Unsp spec) [#/Vol] 1.57 10*3/uL 0.83-4.51 [facility] Basophil percentageOrdered B y: Dr. Reinoso on 10-02-2022 Basophil percentage 0-5 SEEN /hpf 0-5 [facility] Basophils/100 WBC (Bld) 0.4 % 0-1 [facility] Bilirubin [Mass/Vol] 0.30 mg/dL 0.20-1.00 [facility] Comment on above: For patients on eltr ombopag therapy, use of Dimension [place] TBIL is not recommended. Chloride [Moles/Vol] 105 mmol/L 98-107 [facility] Eosinophils/100 WBC (Bld) 4.2 % 0-5 [facility] Glucose [Mass/Vol] 451 mg/dL 74-106 [facility] Comment on above: Critical Result(s) C alled at: 20:47:43 10/02/2022 by: TIFFANIE MAURO TO TONY GROVER WEIGHT LOSS PHYSICIAN. Results read back by same.Glucose result greater than or equal to 200 mg/dLsuggests DIABETES MELLITUS per A.D.A. criteria. Neutrophils (Bld) [#/Vol] 3.2 10*3/uL 2.0-7.7 [facility] Neutrophils/100 WBC (Bld) 58.0 % 47-70 [facility] Potassium [Moles/Vol] 3.9 mmol/L 3.5-5.1 [facility] Protein [Mass/Vol] 6.3 g/dL 6.4-8.2 [facility] Sodium [Moles/Vol] 136 mmol/L 136-145 [facility] WBC (Bld) [#/Vol] 5.5 10*3/uL 4.4-11.0 [facility] Bilirubin Test strip Ql (U)O rdered By: Dr. Reinoso on 10-02-2022 Bilirubin Ql (U) Negative Negative [facility] Blood erythrocytes count (nu mber/volume)Ordered By: Dr. Reinoso on 10-02-2022 RBC (Bld) [#/Vol] 3.21 10*6/uL 4.6-6.2 [facility] Blood hemoglobin measurement (mass/volume)Ordered By: Dr. Reinoso on 10-02-2022 Hemoglobin (Bld) [Mass/Vol] 9.0 g/dL 13.0-16.5 [facility] Blood lymphocytes/100 leukoc ytesOrdered By: Dr. Reinoso on 10-02-2022 Lymphocytes/100 WBC (Bld) 28.4 % 19-41 [facility] Blood monocytes/100 leukocyt esOrdered By: Dr. Reinoso on 10-02-2022 Monocytes/100 WBC (Bld) 8.1 % 0-10 [facility] Blood platelet mean volumeOr dered By: Dr. Reinoso on 10-02-2022 Platelet mean volume (Bld) [Entitic vol] 9.4 fL 6.2-12.0 [facility] Determination of erythrocyte mean corpuscular volume (MCV)Ordered By: Dr. Reinoso on 10-02-2022 MCV (RBC) [Entitic vol] 84.1 fL 80-94 [facility] Glucose Glucometer (BldC) [M ass/Vol]Ordered By: Dr. Reinoso on 10-02-2022 Glucose [Mass/Vol] 183 mg/dL 74-106 [facility] Comment on above: MANAGEMENT OF PATIEN T CARE PER NURSING PROTOCOL Hematocrit Auto (Bld) [Volum e fraction]Ordered By: Dr. Reinoso on 10-02-2022 Hematocrit (Bld) [Volume fraction] 27.0 % 40-54 [facility] Ketones Test strip Ql (U)Ord ered By: Dr. Reinoso on 10-02-2022 Ketones Ql (U) Negative Negative [facility] Laboratory - Chemistry and C hemistry - challengeOrdered By: Dr. Reinoso on 10-02-2022 ALP [Catalytic activity/Vol] 126 U/L 45-117 [facility] ALT [Catalytic activity/Vol] 21 U/L 16-61 [facility] CO2 [Moles/Vol] 23.0 mmol/L 21.0-32.0 [facility] Globulin (S) [Mass/Vol] 3.4 g/dL 2.2-4.2 [facility] Urea nitrogen/Creatinine [Mass ratio] 14.5 mg/mg 10-20 [facility] Laboratory - Hematology and Cell countsOrdered By: Dr. Reinoso on 10-02-2022 Erythrocyte distribution width (RBC) [Entitic vol] 39.4 fL 35.1-43.9 [facility] Erythrocyte distribution width (RBC) [Ratio] 13.0 % 11.6-14.6 [facility] Immature granulocytes/100 WBC (Bld) 0.900 % 0.0-0.9 [facility] Comment on above: IG% - Immature Granu locytes (promyelocytes, myelocytes and metamyelocytes) > 1% indicates that a LEFT SHIFT is Present. MCH (RBC) [Entitic mass] 28.0 pg 27.0-32.0 [facility] Nucleated RBC/100 WBC (Bld) [Ratio] 0 % 0-5 [facility] MCHC Auto (RBC) [Mass/Vol]Or dered By: Dr. Reinoso on 10-02-2022 MCHC (RBC) [Mass/Vol] 33.3 g/dL 32-36 [facility] Mucus LM Ql (Urine sed)Order ed By: Dr. Reinoso on 10-02-2022 Mucus Ql (Urine sed) 0 SEEN /hpf [facility] Nitrite Test strip Ql (U)Ord ered By: Dr. Reinoso on 10-02-2022 Nitrite Ql (U) Negative Negative [facility] No Panel InformationOrdered By: Dr. Reinoso on 10-02-2022 Estimated Creatinine Clearance Calc 33.77 ml/min [facility] Estimated GFR (MDRD) Amer 39 mL/min >60 [facility] Comment on above: GFR Calc Estimated GFR (MDRD) Non-Af Amer 32 mL/min >60 [facility] Comment on above: Non- GFR Calc Platelets bldOrdered By: Dr. Reinoso on 10-02-2022 Platelets (Bld) [#/Vol] 220 10*3/uL 150-450 [facility] Protein Test strip Ql (U)Ord ered By: Dr. Reinoso on 10-02-2022 Protein Ql (U) 500 mg/dl Negative [facility] Serum or plasma acetone harshad urement (mass/volume)Ordered By: Dr. Reinoso on 10-02-2022 Acetone [Mass/Vol] Negative NEG [facility] Serum or plasma albumin harshad urement (mass/volume)Ordered By: Dr. Reinoso on 10-02-2022 Albumin [Mass/Vol] 2.9 g/dL 3.2-5.0 [facility] Serum or plasma albumin/glob ulin mass ratioOrdered By: Dr. Reinoso on 10-02-2022 Albumin/Globulin [Mass ratio] 0.9 {ratio} 0.9-2.4 [facility] Serum or plasma calcium harshad urement (mass/volume)Ordered By: Dr. Reinoso on 10-02-2022 Calcium [Mass/Vol] 8.4 mg/dL 8.5-10.1 [facility] Serum or plasma creatinine m easurement (mass/volume)Ordered By: Dr. Reinoso on 10-02-2022 Creatinine [Mass/Vol] 2.21 mg/dL 0.70-1.30 [facility] Comment on above: The validity of the calculated GFR & GFRAA in patients over 70 years has not been determined. Clinical correlation is essential. Serum or plasma urea nitroge n measurement (mass/volume)Ordered By: Dr. Reinoso on 10-02-2022 Urea nitrogen [Mass/Vol] 32 mg/dL 7-18 [facility] Squamous epithelial cells de tection in urine sediment by light microscopyOrdered By: Dr. Reinoso on 10-02-2022 Epithelial cells.squamous LM Ql (Urine sed) 0-5 SEEN /hpf 0-5 [facility] Thin prep Papanicolaou smear with manual screeningOrdered By: Dr. Reinoso on 10-02-2022 Thin prep Papanicolaou smear with manual screening 11 U/L 15-37 [facility] Thin prep Papanicolaou smear with manual screening 8 5-15 [facility] Urine blood detectionOrdered By: Dr. Reinoso on 10-02-2022 RBC Ql (U) 25 /ul Negative [facility] RBC Ql (U) 0 SEEN /hpf 0-5 [facility] Urine clarityOrdered By: Dr. Reinoso on 10-02-2022 Clarity (U) Clear Clear [facility] Urine color determinationOrd ered By: Dr. Reinoso on 10-02-2022 Color (U) Yellow Yellow [facility] Urine glucose detectionOrder ed By: Dr. Reinoso on 10-02-2022 Glucose Ql (U) 1000 mg/dl Normal [facility] Urine leukocyte esterase det ection by dipstickOrdered By: Dr. Reinoso on 10-02-2022 Leukocyte esterase Test strip Ql (U) Negative Negative [facility] Urine pHOrdered By: Dr. Rosaura lyles on 10-02-2022 pH (U) 6.0 [pH] 5.0 - 8.0 [facility] Urine sediment bacteria coun t by microscopy (number/high power field)Ordered By: Dr. Reinoso on 10-02-2022 Bacteria LM.HPF (Urine sed) [#/Area] 0 /[HPF] None Seen [facility] Urine specific gravity measu rementOrdered By: Dr. Reinoso on 10-02-2022 Specific gravity (U) [Rel density] 1.015 1.002-1.03 0 [facility] Urobilinogen Auto test strip Ql (U)Ordered By: Dr. Reinoso on 10-02-2022 Urobilinogen Ql (U) Normal mg/dl Normal [facility] Absolute lymphocyte countOrd ered By: Dr. Goldstein on 09-30-2022 Lymphocytes Auto (Unsp spec) [#/Vol] 1.72 10*3/uL 0.83-4.51 [facility] Basophil percentageOrdered B y: Dr. Goldstein on 09-30-2022 Basophil percentage 0-5 SEEN /hpf 0-5 [facility] Basophils/100 WBC (Bld) 0.4 % 0-1 [facility] Bilirubin [Mass/Vol] 0.30 mg/dL 0.20-1.00 [facility] Comment on above: For patients on eltr ombopag therapy, use of Dimension [place] TBIL is not recommended. Chloride [Moles/Vol] 103 mmol/L 98-107 [facility] Eosinophils/100 WBC (Bld) 3.8 % 0-5 [facility] Glucose [Mass/Vol] 515 mg/dL 74-106 [facility] Comment on above: Critical Result(s) C alled at: 18:28:41 09/30/2022 by: Eagle Cuello to Zohra WEIGHT LOSS PHYSICIAN. Results read back by same.Glucose result greater than or equal to 200 mg/dLsuggests DIABETES MELLITUS per A.D.A. criteria. Neutrophils (Bld) [#/Vol] 3.1 10*3/uL 2.0-7.7 [facility] Neutrophils/100 WBC (Bld) 56.1 % 47-70 [facility] Potassium [Moles/Vol] 4.2 mmol/L 3.5-5.1 [facility] Protein [Mass/Vol] 6.8 g/dL 6.4-8.2 [facility] Sodium [Moles/Vol] 134 mmol/L 136-145 [facility] WBC (Bld) [#/Vol] 5.5 10*3/uL 4.4-11.0 [facility] Bilirubin Test strip Ql (U)O rdered By: Dr. Goldstein on 09-30-2022 Bilirubin Ql (U) Negative Negative [facility] Blood erythrocytes count (nu mber/volume)Ordered By: Dr. Goldstein on 09-30-2022 RBC (Bld) [#/Vol] 3.49 10*6/uL 4.6-6.2 [facility] Blood hemoglobin measurement (mass/volume)Ordered By: Dr. Goldstein on 09-30-2022 Hemoglobin (Bld) [Mass/Vol] 9.7 g/dL 13.0-16.5 [facility] Blood lymphocytes/100 leukoc ytesOrdered By: Dr. Goldstein on 09-30-2022 Lymphocytes/100 WBC (Bld) 31.3 % 19-41 [facility] Blood monocytes/100 leukocyt esOrdered By: Dr. Goldstein on 09-30-2022 Monocytes/100 WBC (Bld) 7.1 % 0-10 [facility] Blood platelet mean volumeOr dered By: Dr. Goldstein on 09-30-2022 Platelet mean volume (Bld) [Entitic vol] 9.6 fL 6.2-12.0 [facility] Determination of erythrocyte mean corpuscular volume (MCV)Ordered By: Dr. Goldstein on 09-30-2022 MCV (RBC) [Entitic vol] 82.2 fL 80-94 [facility] Direct bilirubinOrdered By: Dr. Goldstein on 09-30-2022 Bilirubin.direct [Mass/Vol] 0.08 mg/dL 0.00-0.30 [facility] Glucose Glucometer (dC) [M ass/Vol]Ordered By: Dr. Goldsteni on 09-30-2022 Glucose [Mass/Vol] 277 mg/dL 74-106 [facility] Comment on above: MANAGEMENT OF PATIEN T CARE PER NURSING PROTOCOL Hematocrit Auto (Bld) [Volum e fraction]Ordered By: Dr. Goldstein on 09-30-2022 Hematocrit (Bld) [Volume fraction] 28.7 % 40-54 [facility] Ketones Test strip Ql (U)Ord ered By: Dr. Goldstein on 09-30-2022 Ketones Ql (U) Negative Negative [facility] Laboratory - Chemistry and C hemistry - challengeOrdered By: Dr. Goldstein on 09-30-2022 ALP [Catalytic activity/Vol] 151 U/L 45-117 [facility] ALT [Catalytic activity/Vol] 23 U/L 16-61 [facility] CO2 [Moles/Vol] 25.0 mmol/L 21.0-32.0 [facility] Globulin (S) [Mass/Vol] 3.8 g/dL 2.2-4.2 [facility] Urea nitrogen/Creatinine [Mass ratio] 16.5 mg/mg 10-20 [facility] Laboratory - Hematology and Cell countsOrdered By: Dr. Goldstein on 09-30-2022 Erythrocyte distribution width (RBC) [Entitic vol] 38.6 fL 35.1-43.9 [facility] Erythrocyte distribution width (RBC) [Ratio] 13.0 % 11.6-14.6 [facility] Immature granulocytes/100 WBC (Bld) 1.300 % 0.0-0.9 [facility] Comment on above: IG% - Immature Granu locytes (promyelocytes, myelocytes and metamyelocytes) > 1% indicates that a LEFT SHIFT is Present. MCH (RBC) [Entitic mass] 27.8 pg 27.0-32.0 [facility] Nucleated RBC/100 WBC (Bld) [Ratio] 0 % 0-5 [facility] MCHC Auto (RBC) [Mass/Vol]Or dered By: Dr. Goldstein on 09-30-2022 MCHC (RBC) [Mass/Vol] 33.8 g/dL 32-36 [facility] Mucus LM Ql (Urine sed)Order ed By: Dr. Goldstein on 09-30-2022 Mucus Ql (Urine sed) 0 SEEN /hpf [facility] Nitrite Test strip Ql (U)Ord ered By: Dr. Goldstein on 09-30-2022 Nitrite Ql (U) Negative Negative [facility] No Panel InformationOrdered By: Dr. Goldstein on 09-30-2022 Estimated Creatinine Clearance Calc 31.39 ml/min [facility] Estimated GFR (MDRD) Amer 37 mL/min >60 [facility] Comment on above: GFR Calc Estimated GFR (MDRD) Non-Af Amer 31 mL/min >60 [facility] Comment on above: Non- GFR Calc Platelets bldOrdered By: Dr. Goldstein on 09-30-2022 Platelets (Bld) [#/Vol] 249 10*3/uL 150-450 [facility] Protein Test strip Ql (U)Ord ered By: Dr. Goldstein on 09-30-2022 Protein Ql (U) 100 mg/dl Negative [facility] Serum or plasma acetone harshad urement (mass/volume)Ordered By: Dr. Goldstein on 09-30-2022 Acetone [Mass/Vol] Negative NEG [facility] Serum or plasma albumin harshad urement (mass/volume)Ordered By: Dr. Goldstein on 09-30-2022 Albumin [Mass/Vol] 3.0 g/dL 3.2-5.0 [facility] Serum or plasma calcium harshad urement (mass/volume)Ordered By: Dr. Goldstein on 09-30-2022 Calcium [Mass/Vol] 8.9 mg/dL 8.5-10.1 [facility] Serum or plasma creatinine m easurement (mass/volume)Ordered By: Dr. Goldstein on 09-30-2022 Creatinine [Mass/Vol] 2.30 mg/dL 0.70-1.30 [facility] Comment on above: The validity of the calculated GFR & GFRAA in patients over 70 years has not been determined. Clinical correlation is essential. Serum or plasma urea nitroge n measurement (mass/volume)Ordered By: Dr. Goldstein on 09-30-2022 Urea nitrogen [Mass/Vol] 38 mg/dL 7-18 [facility] Squamous epithelial cells de tection in urine sediment by light microscopyOrdered By: Dr. Goldstein on 09-30-2022 Epithelial cells.squamous LM Ql (Urine sed) 0-5 SEEN /hpf 0-5 [facility] Thin prep Papanicolaou smear with manual screeningOrdered By: Dr. Goldstein on 09-30-2022 Thin prep Papanicolaou smear with manual screening 15 U/L 15-37 [facility] Thin prep Papanicolaou smear with manual screening 6 5-15 [facility] Urine blood detectionOrdered By: Dr. Goldstein on 09-30-2022 RBC Ql (U) 25 /ul Negative [facility] RBC Ql (U) 0-5 SEEN /hpf 0-5 [facility] Urine clarityOrdered By: Dr. Goldstein on 09-30-2022 Clarity (U) Clear Clear [facility] Urine color determinationOrd ered By: Dr. Goldstein on 09-30-2022 Color (U) Straw Yellow [facility] Urine glucose detectionOrder ed By: Dr. Goldstein on 09-30-2022 Glucose Ql (U) 1000 mg/dl Normal [facility] Urine leukocyte esterase det ection by dipstickOrdered By: Dr. Goldstein on 09-30-2022 Leukocyte esterase Test strip Ql (U) Negative Negative [facility] Urine pHOrdered By: Dr. Lula wolf on 09-30-2022 pH (U) 6.5 [pH] 5.0 - 8.0 [facility] Urine sediment bacteria coun t by microscopy (number/high power field)Ordered By: Dr. Goldstein on 09-30-2022 Bacteria LM.HPF (Urine sed) [#/Area] 0 /[HPF] None Seen [facility] Urine specific gravity measu rementOrdered By: Dr. Goldstein on 09-30-2022 Specific gravity (U) [Rel density] 1.010 1.002-1.03 0 [facility] Urobilinogen Auto test strip Ql (U)Ordered By: Dr. Goldstein on 09-30-2022 Urobilinogen Ql (U) Normal mg/dl Normal [facility] Absolute lymphocyte countOrd ered By: Dr. Luis on 09-14-2022 Lymphocytes Auto (Unsp spec) [#/Vol] 1.29 10*3/uL 0.83-4.51 [facility] Basophil percentageOrdered B y: Dr. Luis on 09-14-2022 Basophil percentage 0-5 SEEN /hpf 0-5 [facility] Basophils/100 WBC (Bld) 0.3 % 0-1 [facility] Bilirubin [Mass/Vol] 0.70 mg/dL 0.20-1.00 [facility] Comment on above: For patients on eltr ombopag therapy, use of Dimension [place] TBIL is not recommended. Chloride [Moles/Vol] 93 mmol/L 98-107 [facility] Eosinophils/100 WBC (Bld) 0.7 % 0-5 [facility] Glucose [Mass/Vol] 531 mg/dL 74-106 [facility] Comment on above: Critical Result(s) C alled at: 12:01:31 09/14/2022 by: Aliyah Stack. Results read back by same.Glucose result greater than or equal to 200 mg/dLsuggests DIABETES MELLITUS per A.D.A. criteria. Neutrophils (Bld) [#/Vol] 8.6 10*3/uL 2.0-7.7 [facility] Neutrophils/100 WBC (Bld) 81.0 % 47-70 [facility] Potassium [Moles/Vol] 4.4 mmol/L 3.5-5.1 [facility] Protein [Mass/Vol] 7.2 g/dL 6.4-8.2 [facility] Sodium [Moles/Vol] 135 mmol/L 136-145 [facility] WBC (Bld) [#/Vol] 10.6 10*3/uL 4.4-11.0 [facility] Bilirubin Test strip Ql (U)O rdered By: Dr. Luis on 09-14-2022 Bilirubin Ql (U) Negative Negative [facility] Blood erythrocytes count (nu mber/volume)Ordered By: Dr. Luis on 09-14-2022 RBC (Bld) [#/Vol] 3.95 10*6/uL 4.6-6.2 [facility] Blood hemoglobin measurement (mass/volume)Ordered By: Dr. Luis on 09-14-2022 Hemoglobin (Bld) [Mass/Vol] 10.8 g/dL 13.0-16.5 [facility] Blood lymphocytes/100 leukoc ytesOrdered By: Dr. Luis on 09-14-2022 Lymphocytes/100 WBC (Bld) 12.1 % 19-41 [facility] Blood monocytes/100 leukocyt esOrdered By: Dr. Luis on 09-14-2022 Monocytes/100 WBC (Bld) 4.4 % 0-10 [facility] Blood platelet mean volumeOr dered By: Dr. Luis on 09-14-2022 Platelet mean volume (Bld) [Entitic vol] 10.6 fL 6.2-12.0 [facility] Determination of erythrocyte mean corpuscular volume (MCV)Ordered By: Dr. Luis on 09-14-2022 MCV (RBC) [Entitic vol] 80.0 fL 80-94 [facility] Glucose Glucometer (dC) [M ass/Vol]Ordered By: Dr. Luis on 09-14-2022 Glucose [Mass/Vol] 401 mg/dL 74-106 [facility] Comment on above: MANAGEMENT OF PATIEN T CARE PER NURSING PROTOCOL HCO3 (BldA) [Moles/Vol]Order ed By: Dr. Luis on 09-14-2022 HCO3 (Bld) [Moles/Vol] 28 mmol/L 22-26 [facility] Hematocrit Auto (Bld) [Volum e fraction]Ordered By: Dr. Luis on 09-14-2022 Hematocrit (Bld) [Volume fraction] 31.6 % 40-54 [facility] Ketones Test strip Ql (U)Ord ered By: Dr. Luis on 09-14-2022 Ketones Ql (U) 5 mg/dl Negative [facility] Laboratory - Chemistry and C hemistry - challengeOrdered By: Dr. Luis on 09-14-2022 CO2 [Moles/Vol] 30 mmol/L 23-33 [facility] ALP [Catalytic activity/Vol] 174 U/L 45-117 [facility] ALT [Catalytic activity/Vol] 21 U/L 16-61 [facility] CO2 [Moles/Vol] 28.0 mmol/L 21.0-32.0 [facility] Globulin (S) [Mass/Vol] 4.0 g/dL 2.2-4.2 [facility] Lipase [Catalytic activity/Vol] 157 U/L 73-393 [facility] Urea nitrogen/Creatinine [Mass ratio] 15.4 mg/mg 10-20 [facility] Laboratory - Hematology and Cell countsOrdered By: Dr. Luis on 09-14-2022 Erythrocyte distribution width (RBC) [Entitic vol] 37.8 fL 35.1-43.9 [facility] Erythrocyte distribution width (RBC) [Ratio] 13.2 % 11.6-14.6 [facility] Immature granulocytes/100 WBC (Bld) 1.500 % 0.0-0.9 [facility] Comment on above: IG% - Immature Granu locytes (promyelocytes, myelocytes and metamyelocytes) > 1% indicates that a LEFT SHIFT is Present. MCH (RBC) [Entitic mass] 27.3 pg 27.0-32.0 [facility] Nucleated RBC/100 WBC (Bld) [Ratio] 0 % 0-5 [facility] MCHC Auto (RBC) [Mass/Vol]Or dered By: Dr. Luis on 09-14-2022 MCHC (RBC) [Mass/Vol] 34.2 g/dL 32-36 [facility] Mucus LM Ql (Urine sed)Order ed By: Dr. Luis on 09-14-2022 Mucus Ql (Urine sed) 0 SEEN /hpf [facility] Nitrite Test strip Ql (U)Ord ered By: Dr. Luis on 09-14-2022 Nitrite Ql (U) Negative Negative [facility] No Panel InformationOrdered By: Dr. Luis on 09-14-2022 Bed Mix Venous Bld PCO2 at Pat Temp 38.1 mmHg 41-51 [facility] Blood Gas Specimen Type [facility] Oxygen Delivery Device Room Air [facility] Venous Blood Base Excess 5 mmol/L -1.0-3.5 [facility] Estimated Creatinine Clearance Calc 25.24 ml/min [facility] Estimated GFR (MDRD) Amer 29 mL/min >60 [facility] Comment on above: GFR Calc Estimated GFR (MDRD) Non-Af Amer 24 mL/min >60 [facility] Comment on above: Non- GFR Calc PO2 venousOrdered By: Dr. Luc mustafa on 09-14-2022 Oxygen (BldV) [Partial pressure] 54 mm[Hg] 25-40 [facility] Platelets bldOrdered By: Dr. Luis on 09-14-2022 Platelets (Bld) [#/Vol] 280 10*3/uL 150-450 [facility] Protein Test strip Ql (U)Ord ered By: Dr. Luis on 09-14-2022 Protein Ql (U) 500 mg/dl Negative [facility] Serum or plasma acetone harshad urement (mass/volume)Ordered By: Dr. Luis on 09-14-2022 Acetone [Mass/Vol] Negative NEG [facility] Serum or plasma albumin harshad urement (mass/volume)Ordered By: Dr. Luis on 09-14-2022 Albumin [Mass/Vol] 3.2 g/dL 3.2-5.0 [facility] Serum or plasma albumin/glob ulin mass ratioOrdered By: Dr. Luis on 09-14-2022 Albumin/Globulin [Mass ratio] 0.8 {ratio} 0.9-2.4 [facility] Serum or plasma calcium harshad urement (mass/volume)Ordered By: Dr. Luis on 09-14-2022 Calcium [Mass/Vol] 9.8 mg/dL 8.5-10.1 [facility] Serum or plasma creatinine m easurement (mass/volume)Ordered By: Dr. Luis on 09-14-2022 Creatinine [Mass/Vol] 2.86 mg/dL 0.70-1.30 [facility] Comment on above: The validity of the calculated GFR & GFRAA in patients over 70 years has not been determined. Clinical correlation is essential. Serum or plasma urea nitroge n measurement (mass/volume)Ordered By: Dr. Luis on 09-14-2022 Urea nitrogen [Mass/Vol] 44 mg/dL 7-18 [facility] Squamous epithelial cells de tection in urine sediment by light microscopyOrdered By: Dr. Luis on 09-14-2022 Epithelial cells.squamous LM Ql (Urine sed) 0-5 SEEN /hpf 0-5 [facility] Thin prep Papanicolaou smear with manual screeningOrdered By: Dr. Luis on 09-14-2022 Thin prep Papanicolaou smear with manual screening 16 U/L 15-37 [facility] Thin prep Papanicolaou smear with manual screening 14 5-15 [facility] Urine blood detectionOrdered By: Dr. Luis on 09-14-2022 RBC Ql (U) 25 /ul Negative [facility] RBC Ql (U) 0 SEEN /hpf 0-5 [facility] Urine clarityOrdered By: Dr. Luis on 09-14-2022 Clarity (U) Clear Clear [facility] Urine color determinationOrd ered By: Dr. Luis on 09-14-2022 Color (U) Yellow Yellow [facility] Urine glucose detectionOrder ed By: Dr. Luis on 09-14-2022 Glucose Ql (U) 1000 mg/dl Normal [facility] Urine leukocyte esterase det ection by dipstickOrdered By: Dr. Luis on 09-14-2022 Leukocyte esterase Test strip Ql (U) Negative Negative [facility] Urine pHOrdered By: Dr. Felicita cleveland on 09-14-2022 pH (U) 7.0 [pH] 5.0 - 8.0 [facility] Urine sediment bacteria coun t by microscopy (number/high power field)Ordered By: Dr. Luis on 09-14-2022 Bacteria LM.HPF (Urine sed) [#/Area] 0 /[HPF] None Seen [facility] Urine specific gravity measu rementOrdered By: Dr. Luis on 09-14-2022 Specific gravity (U) [Rel density] 1.010 1.002-1.03 0 [facility] Urobilinogen Auto test strip Ql (U)Ordered By: Dr. Luis on 09-14-2022 Urobilinogen Ql (U) Normal mg/dl Normal [facility] Vital signsOrdered By: Dr. Gilma wallace on 09-14-2022 Oxygen saturation in Blood 90 % 50-70 [facility] pH measurementOrdered By: Dr Ariadna Luis on 09-14-2022 pH (Unsp spec) 7.48 [pH] 7.32-7.42 [facility] Absolute lymphocyte counton 03-22-2022 Lymphocytes Auto (Unsp spec) [#/Vol] 1.07 10*3/uL 0.83-4.51 [facility] Work Phone: Basophil percentageon 2021 Basophils/100 WBC (Bld) 0.2 % 0-1 [facility] Work Phone: Bilirubin [Mass/Vol] 0.20 mg/dL 0.20-1.00 [facility] Work Phone: Comment on above: For patients on eltr ombopag therapy, use of Dimension [place] TBIL is not recommended. Chloride [Moles/Vol] 112 mmol/L 98-107 [facility] Work Phone: Eosinophils/100 WBC (Bld) 0.4 % 0-5 [facility] Work Phone: Glucose [Mass/Vol] 104 mg/dL 74-106 [facility] Work Phone: Comment on above: Fasting Glucose resu lt from 100 to 125 mg/dL suggests IMPAIRED HOMEOSTASIS per A.D.A. criteria. Neutrophils (Bld) [#/Vol] 3.4 10*3/uL 2.0-7.7 [facility] Work Phone: [phone] Neutrophils/100 WBC (Bld) 68.4 % 47-70 [facility] Work Phone: Potassium [Moles/Vol] 4.3 mmol/L 3.5-5.1 [facility] Work Phone: Protein [Mass/Vol] 5.5 g/dL 6.4-8.2 [facility] Work Phone: Sodium [Moles/Vol] 138 mmol/L 136-145 [facility] Work Phone: WBC (Bld) [#/Vol] 4.9 10*3/uL 4.4-11.0 [facility] Work Phone: Blood erythrocytes count (nu mber/volume)on 03-22-2022 RBC (Bld) [#/Vol] 2.74 10*6/uL 4.6-6.2 [facility] Work Phone: Blood hemoglobin measurement (mass/volume)on 03-22-2022 Hemoglobin (Bld) [Mass/Vol] 7.4 g/dL 13.0-16.5 [facility] Work Phone: Blood lymphocytes/100 leukoc yteson 03-22-2022 Lymphocytes/100 WBC (Bld) 21.7 % 19-41 [facility] Work Phone: Blood monocytes/100 leukocyt eson 03-22-2022 Monocytes/100 WBC (Bld) 7.7 % 0-10 [facility] Work Phone: Blood platelet mean volumeon 03-22-2022 Platelet mean volume (Bld) [Entitic vol] 9.3 fL 6.2-12.0 [facility] Work Phone: Determination of erythrocyte mean corpuscular volume (MCV)on 03-22-2022 MCV (RBC) [Entitic vol] 81.0 fL 80-94 [facility] Work Phone: Glucose Glucometer (BldC) [M ass/Vol]on 03-22-2022 Glucose [Mass/Vol] 155 mg/dL 74-106 [facility] Work Phone: Comment on above: MANAGEMENT OF PATIEN T CARE PER NURSING PROTOCOL Hematocrit Auto (Bld) [Volum e fraction]on 03-22-2022 Hematocrit (Bld) [Volume fraction] 22.2 % 40-54 [facility] Work Phone: Laboratory - Chemistry and C hemistry - challengeon 03-22-2022 ALP [Catalytic activity/Vol] 88 U/L 45-117 [facility] Work Phone: [phone] ALT [Catalytic activity/Vol] 41 U/L 16-61 [facility] Work Phone: [phone] CO2 [Moles/Vol] 17.0 mmol/L 21.0-32.0 [facility] Work Phone: Globulin (S) [Mass/Vol] 3.7 g/dL 2.2-4.2 [facility] Work Phone: Urea nitrogen/Creatinine [Mass ratio] 24.1 mg/mg 10-20 [facility] Work Phone: Laboratory - Hematology and Cell countson 03-22-2022 Erythrocyte distribution width (RBC) [Entitic vol] 40.8 fL 35.1-43.9 [facility] Work Phone: [phone] Erythrocyte distribution width (RBC) [Ratio] 13.9 % 11.6-14.6 [facility] Work Phone: Immature granulocytes/100 WBC (Bld) 1.600 % 0.0-0.9 [facility] Work Phone: Comment on above: IG% - Immature Granu locytes (promyelocytes, myelocytes and metamyelocytes) > 1% indicates that a LEFT SHIFT is Present. MCH (RBC) [Entitic mass] 27.0 pg 27.0-32.0 [facility] Work Phone: Nucleated RBC/100 WBC (Bld) [Ratio] 0 % 0-5 [facility] Work Phone: MCHC Auto (RBC) [Mass/Vol]on 03-22-2022 MCHC (RBC) [Mass/Vol] 33.3 g/dL 32-36 [facility] Work Phone: No Panel Informationon 03-22 Estimated Creatinine Clearance Calc 29.04 ml/min [facility] Work Phone: Estimated GFR (MDRD) Amer 33 mL/min >60 [facility] Work Phone: Comment on above: GFR Calc Estimated GFR (MDRD) Non-Af Amer 27 mL/min >60 [facility] Work Phone: Comment on above: Non- GFR Calc Platelets bldon 03-22-2022 Platelets (Bld) [#/Vol] 279 10*3/uL 150-450 [facility] Work Phone: Serum or plasma albumin harshad urement (mass/volume)on 03-22-2022 Albumin [Mass/Vol] 1.8 g/dL 3.2-5.0 [facility] Work Phone: Serum or plasma albumin/glob ulin mass ratioon 03-22-2022 Albumin/Globulin [Mass ratio] 0.5 {ratio} 0.9-2.4 [facility] Work Phone: Serum or plasma calcium harshad urement (mass/volume)on 03-22-2022 Calcium [Mass/Vol] 7.5 mg/dL 8.5-10.1 [facility] Work Phone: Serum or plasma creatinine m easurement (mass/volume)on 03-22-2022 Creatinine [Mass/Vol] 2.57 mg/dL 0.70-1.30 [facility] Work Phone: Comment on above: The validity of the calculated GFR & GFRAA in patients over 70 years has not been determined. Clinical correlation is essential. Serum or plasma urea nitroge n measurement (mass/volume)on 03-22-2022 Urea nitrogen [Mass/Vol] 62 mg/dL 7-18 [facility] Work Phone: Thin prep Papanicolaou smear with manual screeningon 03-22-2022 Thin prep Papanicolaou smear with manual screening 51 U/L 15-37 [facility] Work Phone: Thin prep Papanicolaou smear with manual screening 9 5-15 [facility] Work Phone: Hemoglobin in reticulocytes (mass per reticulocyte)on 03-21-2022 Hemoglobin (Reticulocytes) [Entitic mass] 23.6 pg 30-35 [facility] Work Phone: Iron measurement (mass/mass) on 03-21-2022 Iron (Unsp spec) [Mass/Mass] 12 ug/dL 65-175 [facility] Work Phone: No Panel Informationon 03-21 Immature Reticulocyte Fraction 12.80 % 3.00-15.90 [facility] Work Phone: Reticulocyte Count 0.68 % 0.5-1.5 [facility] Work Phone: Total Iron Binding Capacity 143 ug/dL 250-450 [facility] Work Phone: Serum or plasma ferritin rick surement (mass/volume)on 03-21-2022 Ferritin [Mass/Vol] 369 ng/mL 26-388 [facility] Work Phone: Serum or plasma iron saturat ion measurement (mass fraction)on 03-21-2022 Iron saturation [Mass fraction] 8.4 % 15.0-55.0 [facility] Work Phone: Whole blood hemoglobin A1c/t otal hemoglobin ratio (mass fraction)on 03-21-2022 HbA1c (Bld) [Mass fraction] 8.8 % 3.8-5.6 [facility] Work Phone: Comment on above: Normal < 5.7 % Predi abetic 5.7 - 6.4 % Diabetic >or= 6.5 % Please note range changes. Blood manual differential co mment interpretation (narrative result)on 03-19-2022 Manual differential comment Enrique (Bld) [Interp] SCANNED [facility] Work Phone: No Panel Informationon 03-19 Methicillin-Resist S.aureus DNA PCR Negative Negative [facility] Work Phone: Review by pathologiston 03-07 Pathologist review Enrique (Unsp spec) [Interp] Reviewed [facility] Work Phone: Comment on above: Previous reported re sult: Sofia harmon Edited by: CAMILO on 03/22/22:717Leukopenia.Normocytic anemia.Clinical correlation necessary.Micah uRiz M.D. 03/21/22 AMENDED REPORT 03/22/22717 PATH REV previously reported as: December faustino Absolute lymphocyte counton 03-18-2022 Lymphocytes Auto (Unsp spec) [#/Vol] 0.53 10*3/uL 0.83-4.51 [facility] Work Phone: Basophil percentageon 2021 Basophil percentage 0 SEEN /hpf 0-5 [facility] Work Phone: Basophils/100 WBC (Bld) 0.3 % 0-1 [facility] Work Phone: Bilirubin [Mass/Vol] 0.30 mg/dL 0.20-1.00 [facility] Work Phone: Comment on above: For patients on eltr ombopag therapy, use of Dimension [place] TBIL is not recommended. Chloride [Moles/Vol] 115 mmol/L 98-107 [facility] Work Phone: Eosinophils/100 WBC (Bld) 0.0 % 0-5 [facility] Work Phone: Glucose [Mass/Vol] 45 mg/dL 74-106 [facility] Work Phone: Comment on above: Glucose result less than 50 mg/dL suggests HYPOGLYCEMIA. Lactate [Moles/Vol] 1.0 mmol/L 0.4-2.0 [facility] Work Phone: [phone] Neutrophils (Bld) [#/Vol] 2.9 10*3/uL 2.0-7.7 [facility] Work Phone: [phone] Neutrophils/100 WBC (Bld) 76.1 % 47-70 [facility] Work Phone: [phone] Potassium [Moles/Vol] 3.9 mmol/L 3.5-5.1 [facility] Work Phone: [phone] Protein [Mass/Vol] 6.2 g/dL 6.4-8.2 [facility] Work Phone: [phone] Sodium [Moles/Vol] 141 mmol/L 136-145 [facility] Work Phone: [phone] WBC (Bld) [#/Vol] 3.9 10*3/uL 4.4-11.0 [facility] Work Phone: [phone] Bilirubin Test strip Ql (U)o n 03-18-2022 Bilirubin Ql (U) Negative Negative [facility] Work Phone: [phone] Blood erythrocytes count (nu mber/volume)on 03-18-2022 RBC (Bld) [#/Vol] 3.31 10*6/uL 4.6-6.2 [facility] Work Phone: [phone] Blood hemoglobin measurement (mass/volume)on 03-18-2022 Hemoglobin (Bld) [Mass/Vol] 8.9 g/dL 13.0-16.5 [facility] Work Phone: [phone] Blood lymphocytes/100 leukoc yteson 03-18-2022 Lymphocytes/100 WBC (Bld) 13.7 % 19-41 [facility] Work Phone: [phone] Blood manual differential co mment interpretation (narrative result)on 03-18-2022 Manual differential comment Enrique (Bld) [Interp] See comment [facility] Work Phone: [phone] Comment on above: LYMPHOPENIA NOTED Blood monocytes/100 leukocyt eson 03-18-2022 Monocytes/100 WBC (Bld) 9.1 % 0-10 [facility] Work Phone: [phone] Blood platelet adequacy dete ction by light microscopyon 03-18-2022 Platelets LM Ql (Bld) ADEQUATE ADEQ [facility] Work Phone: Blood platelet mean volumeon 03-18-2022 Platelet mean volume (Bld) [Entitic vol] 9.7 fL 6.2-12.0 [facility] Work Phone: Determination of erythrocyte mean corpuscular volume (MCV)on 03-18-2022 MCV (RBC) [Entitic vol] 81.3 fL 80-94 [facility] Work Phone: EMERGENCY REPORTon 2 EMERGENCY REPORT [facility] EM[facility]Y RO[facility] REPORT NAME ACCOUNT SEX AGE ADMIT DISCHARGE PT MED. RECORD# NUMBER DATE DATE TYPE LOU JULIEN [id number] M 66 03/13/22 2 [id number] ROOM: [facility] DATE OF : 1955 DICTATING PHYSICIAN: Kendy Ye HISTORY OF PRESENT ILLNESS: The patient came in. He has been feeling very weak for the last couple of days. He said he went to [place]. The squad took him to [place], and they admitted him overnight. He says he has not been told he has COVID. He went home yesterday and has been falling. Because of his weakness, they called the squad and brought him here. He denies any fevers. He does have chills and occasional sweats. He has a nonproductive cough and a sore throat. PAST MEDICAL HISTORY: He does have a history of angina, diabetes, and hypertension. He has also had a stroke. PAST SURGICAL HISTORY: He had a pacemaker and carpal tunnel syndrome. REVIEW OF SYSTEMS: Ten systems were reviewed and were negative except as mentioned above. PHYSICAL EXAMINATION: GENERAL: He is an awake, alert and oriented male in no acute distress. VITAL SIGNS: He is afebrile. Pulse is 74, respirations 16, blood pressure 91/74, and pulse oximetry 98% on room air. HEENT: Head is normocephalic, atraumatic. Eyes: Pupils are equal, round and reactive to light. Extraocular muscles are intact. Nares are patent. Throat has adequate oral moisture. Uvula is midline. NECK: Neck is supple without petechiae or rash. HEART: Heart rate is regular without murmur. S1 is equal to S2. No S3 or S4 appreciated. LUNGS: Lungs are clear to auscultation bilaterally. No rales, rhonchi or retractions. ABDOMEN: Abdomen is soft, nontender and nondistended. SKIN: Skin is warm and dry. DIAGNOSTIC DATA: The patient had bloodwork obtained. He was positive for COVID. His blood cultures were negative. He had a white count of 5000. His hemoglobin was 8.7 and hematocrit 26. Platelet count was 174,000. His BUN is 46 and creatinine 2.9. I have no comparisons on bloodwork for him. His EKG showed a rate of 72, left axis deviation, and no obvious ST elevation or depression. CT of his chest without contrast because of his renal function showed cardiomegaly and biliary sludge/gravel. EMERGENCY DEPARTMENT COURSE AND TREATMENT: He was given Rocephin here. DIAGNOSES: Page 1 of 2 LOU JULIEN Emergency Room Report LOU JULIEN : 1955 1. Generalized weakness. 2. COVID-19. 3. Falls. 4. Renal insufficiency/failure. 5. Dehydration. PLAN/DISPOSITION: He will be admitted to the hospital. Dictated By: Knedy Ye DO 03/13/22 19:32 JOB #: [id number] Transcribed By: klever 03/14/22 11:40 Electronically signed by: ALEXANDRA Ye DO 03/18/22 07:54 Page 2 of 2 LOU JULIEN Emergency Room Report Normal [facility] Glucose Glucometer (BldC) [M ass/Vol]on 03-18-2022 Glucose [Mass/Vol] 262 mg/dL 74-106 [facility] Work Phone: Comment on above: MANAGEMENT OF PATIEN T CARE PER NURSING PROTOCOL Hematocrit Auto (Bld) [Volum e fraction]on 03-18-2022 Hematocrit (Bld) [Volume fraction] 26.9 % 40-54 [facility] Work Phone: INR in Blood by Coagulation assayon 03-18-2022 INR Coag (Bld) [Relative time] 1.0 {INR} [facility] Work Phone: Ketones Test strip Ql (U)on 03-18-2022 Ketones Ql (U) Negative Negative [facility] Work Phone: Laboratory - Chemistry and C hemistry - challengeon 03-18-2022 ALP [Catalytic activity/Vol] 104 U/L 45-117 [facility] Work Phone: ALT [Catalytic activity/Vol] 26 U/L 16-61 [facility] Work Phone: CO2 [Moles/Vol] 18.0 mmol/L 21.0-32.0 [facility] Work Phone: Globulin (S) [Mass/Vol] 3.8 g/dL 2.2-4.2 [facility] Work Phone: Magnesium [Mass/Vol] 1.8 mg/dL 1.6-2.6 [facility] Work Phone: Natriuretic peptide B (Bld) [Mass/Vol] 81.4 pg/mL 0-100 [facility] Work Phone: Urea nitrogen/Creatinine [Mass ratio] 17.0 mg/mg 10-20 [facility] Work Phone: [phone] Laboratory - Coagulationon 0 03-18-2022 aPTT Coag (Bld) [Time] 30.2 s 24.1-36.2 [facility] Work Phone: PT Coag (PPP) [Time] 12.8 s 11.7-14.9 [facility] Work Phone: Laboratory - Hematology and Cell countson 03-18-2022 Erythrocyte distribution width (RBC) [Entitic vol] 41.1 fL 35.1-43.9 [facility] Work Phone: Erythrocyte distribution width (RBC) [Ratio] 13.7 % 11.6-14.6 [facility] Work Phone: Immature granulocytes/100 WBC (Bld) 0.800 % 0.0-0.9 [facility] Work Phone: [phone] Comment on above: IG% - Immature Granu locytes (promyelocytes, myelocytes and metamyelocytes) > 1% indicates that a LEFT SHIFT is Present. MCH (RBC) [Entitic mass] 26.9 pg 27.0-32.0 [facility] Work Phone: Nucleated RBC/100 WBC (Bld) [Ratio] 0 % 0-5 [facility] Work Phone: Laboratory - Microbiology an d Antimicrobial susceptibilityon 03-18-2022 SARS-CoV-2 (COVID-19) RNA EVETTE+probe Ql (Unsp spec) Detected Not Detect [facility] Work Phone: Comment on above: Normal Reference Ran ge: Not DetectedMethod:(RT-PCR) real-time reverse transcriptase PCRLuminex QuotaDeck Instrument*The Food and Drug Administration (FDA) has issued an Emergency Use Authorization (EAU) for the QuotaDeck SARS-CoV-2 Assay for the rapid detection of the virus that causes COVID-19. This test has been validated, but the FDAs independent review of this validation is pending.*Negative results do not preclude infection and should not be used as the sole basis for treatment or patient management. Optimum specimen types and timing for peak viral levels during infections caused by SARS-CoV-2 have not been determined. Collection of multiple specimens from the same patient may be necessary to detect the virus. The possibility of a false negative result should be considered if the patient has clinical presentation or has had recent exposure. MCHC Auto (RBC) [Mass/Vol]on 03-18-2022 MCHC (RBC) [Mass/Vol] 33.1 g/dL 32-36 [facility] Work Phone: Mucus LM Ql (Urine sed)on Mucus Ql (Urine sed) 0 SEEN /hpf [facility] Work Phone: Nitrite Test strip Ql (U)on 03-18-2022 Nitrite Ql (U) Negative Negative [facility] Work Phone: No Panel Informationon 03-18 D-Dimer Quantitative (PE/DVT) 0.78 FEU/ug/m 0.27-0.49 [facility] Work Phone: Comment on above: D-Dimer ELEVATED (>0 .49): Additional studies and clinicalassessments are indicated to conclude diagnosis of:Deep Vein Thrombosis (DVT) or Pulmonary Embolism (PE)CRITICAL VALUE VERIFIED. CALLED TO LAURIE BLANCA03/18/22 1421 Allan Plascencia.RESULTS READ BACK BY SAME . Estimated Creatinine Clearance Calc 30.21 ml/min [facility] Work Phone: Estimated GFR (MDRD) Amer 34 mL/min >60 [facility] Work Phone: Comment on above: GFR Calc Estimated GFR (MDRD) Non-Af Amer 28 mL/min >60 [facility] Work Phone: Comment on above: Non- GFR Calc Troponin I High Sensitivity 24 pg/mL 3.0-78.0 [facility] Work Phone: Comment on above: Please Note: New Janette t Units and Gender Specific Reference Ranges. For more information see Policy Stat Procedure [place] High Sensitivity Troponin (TNIH) and attachments. Platelets bldon 03-18-2022 Platelets (Bld) [#/Vol] 209 10*3/uL 150-450 [facility] Work Phone: Protein Test strip Ql (U)on 03-18-2022 Protein Ql (U) 500 mg/dl Negative [facility] Work Phone: RBC morphologyon 03-18-2022 RBC morphology finding Nom (Bld) NORM C+C NORMAL NORM C&C [facility] Work Phone: Review by pathologiston 03-07 Pathologist review Enrique (Unsp spec) [Interp] May foll [facility] Work Phone: Serum or plasma C reactive p rotein measurement (mass/volume)on 03-18-2022 CRP [Mass/Vol] 13.70 mg/L 0.0-3.0 [facility] Work Phone: Comment on above: C-Reactive Protein ( CRP) provides useful information for thediagnosis, therapy and monitoring of inflammatory processesand associated diseases. For the evaluation of Relative Riskfor Cardiovascular Disease, a High Sensitivity CRP (HSCRP)should be ordered. Serum or plasma albumin harshad urement (mass/volume)on 03-18-2022 Albumin [Mass/Vol] 2.4 g/dL 3.2-5.0 [facility] Work Phone: Serum or plasma albumin/glob ulin mass ratioon 03-18-2022 Albumin/Globulin [Mass ratio] 0.6 {ratio} 0.9-2.4 [facility] Work Phone: Serum or plasma calcium harshad urement (mass/volume)on 03-18-2022 Calcium [Mass/Vol] 7.7 mg/dL 8.5-10.1 [facility] Work Phone: Serum or plasma creatinine m easurement (mass/volume)on 03-18-2022 Creatinine [Mass/Vol] 2.47 mg/dL 0.70-1.30 [facility] Work Phone: Comment on above: The validity of the calculated GFR & GFRAA in patients over 70 years has not been determined. Clinical correlation is essential. Serum or plasma ferritin rick surement (mass/volume)on 03-18-2022 Ferritin [Mass/Vol] 253 ng/mL 26-388 [facility] Work Phone: Serum or plasma urea nitroge n measurement (mass/volume)on 03-18-2022 Urea nitrogen [Mass/Vol] 42 mg/dL 7-18 [facility] Work Phone: Serum procalcitonin measurem enton 03-18-2022 Procalcitonin [Mass/Vol] 0.16 ng/mL 0.00-0.09 [facility] Work Phone: Comment on above: A procalcitonin (PCT ) level above 2.0 ng/mL on the first day of ICU admission is associated with a high risk for progression to severe sepsis and/or septic shock. A PCT level below 0.5 ng/mL on the first day of ICU admission is associated with a low risk for progression to severe and/or septic shock. Note: Concentrations <0.5 ng/mL do not exclude an infection on account of localized infections (without systemic signs) which can be associated with such low concentrations, or a systemic infection in its initial stages (<6 hours). Furthermore, increased procalcitonin can occur without infection. PCT concentrations between 0.5 and 2.0 ng/mL should be interpreted taking into account the patient's history. It is recommended to retest PCT within 6-24 hours if any concentrations <2 ng/mL are obtained. Squamous epithelial cells de tection in urine sediment by light microscopyon 03-18-2022 Epithelial cells.squamous LM Ql (Urine sed) 0 SEEN /hpf 0-5 [facility] Work Phone: Thin prep Papanicolaou smear with manual screeningon 03-18-2022 Thin prep Papanicolaou smear with manual screening 35 U/L 15-37 [facility] Work Phone: Thin prep Papanicolaou smear with manual screening 8 5-15 [facility] Work Phone: [phone] Thin prep Papanicolaou smear with manual screening 270 U/L 87-241 [facility] Work Phone: Urine blood detectionon 03-07 RBC Ql (U) 10 /ul Negative [facility] Work Phone: [phone] RBC Ql (U) 0-5 SEEN /hpf 0-5 [facility] Work Phone: Urine clarityon 03-18-2022 Clarity (U) Clear Clear [facility] Work Phone: Urine color determinationon 03-18-2022 Color (U) Yellow Yellow [facility] Work Phone: Urine glucose detectionon Glucose Ql (U) Normal mg/dl Normal [facility] Work Phone: [phone] Urine leukocyte esterase det ection by dipstickon 03-18-2022 Leukocyte esterase Test strip Ql (U) Negative Negative [facility] Work Phone: [phone] Urine pHon 03-18-2022 pH (U) 5.0 [pH] 5.0 - 8.0 [facility] Work Phone: Urine sediment bacteria coun t by microscopy (number/high power field)on 03-18-2022 Bacteria LM.HPF (Urine sed) [#/Area] 0 /[HPF] None Seen [facility] Work Phone: [phone] Urine sediment fine granular cast count by microscopy (number/low power field)on 03-18-2022 Fine Granular Casts LM.LPF (Urine sed) [#/Area] 0-5 SEEN /lpf 0-5 [facility] Work Phone: Urine specific gravity measu rementon 03-18-2022 Specific gravity (U) [Rel density] 1.020 1.002-1.03 0 [facility] Work Phone: Urobilinogen Auto test strip Ql (U)on 03-18-2022 Urobilinogen Ql (U) Normal mg/dl Normal [facility] Work Phone: HGB A1C [CCL]on 03-15-2022 HbA1c (Bld) [Mass fraction] 9.3 % High 4.3-5.6 [facility] Comment on above: Result Comment: [place] Diabetes Association guidelines indicate that patients with HgbA1c in the range 5.7-6.4% are at increased risk for development of diabetes, and intervention by lifestyle modification may be beneficial. HgbA1c greater or equal to 6.5% is considered diagnostic of diabetes. Performed By: #### 2 71571 #### [address] [address] Hemoglobin A0 220 mg/dL Normal [facility] Comment on above: Result Comment: eAG: (Estimated average glucose) is a calculated value from HgbA1c and is territory service representative of the average blood glucose level in the last 2-3 month period. [facility] [employer] [address] [place] [address] Juan Burger III, M.D. [id number] Performed By: #### 2 72999 #### [address] [address] BMP with eGFRon 03-14-2022 AGE 66 years Normal [facility] Comment on above: Performed By: #### 2 46860 #### [address] [address] Anion gap [Moles/Vol] 13 mmol/L Normal 10 - 20 [facility] Comment on above: Performed By: #### 2 09293 #### [facility],[address] [place] [address] BMP with eGFR Normal [facility] Comment on above: Result Comment: BASI C METABOLIC PANEL Performed By: #### 2 06069 #### [facility],[address] [place], [place] [id number] Calcium [Mass/Vol] 7.7 mg/dL Low 8.5 - 10.1 [facility] Comment on above: Performed By: #### 2 81291 #### [facility],[address] [place], [place] [phone] Chloride [Moles/Vol] 110 mmol/L High 98 - 107 [facility] Comment on above: Performed By: #### 2 25431 #### [facility],[address] [place], [place] [phone] CO2 [Moles/Vol] 20.5 mmol/L Low 21.0 - 32.0 [facility] Comment on above: Performed By: #### 2 27419 #### [facility],[address] [place] [address] Creatinine [Mass/Vol] 2.37 mg/dL High 0.70 - 1.30 [facility] Comment on above: Performed By: #### 2 13887 #### [facility],[address] [place] [address]457 eGFR 28 ML/MINUTE Low 60 - 999 [facility] Comment on above: Performed By: #### 2 19455 #### [facility],[address] [place], [place] [phone] eGFR(AA) 34 ML/MINUTE Low 60 - 999 [facility] Comment on above: Result Comment: ACCO RDING TO THE NATIONAL KIDNEY DISEASE EDUCATION PROGRAM(NKDE), A NORMAL eGFR IS A VALUE GREATER THAN OR EQUAL TO 60 ML/MIN/1.73 SQ METERS. CHRONIC KIDNEY DISEASE: <60mL/MIN/1.73 SQ METERS KIDNEY FAILURE: <15mL/MIN/1.73 SQ METERS THIS TEST SHOULD ONLY BE USED FOR PATIENTS 18 YEARS OF AGE AND OLDER. Performed By: #### 2 66382 #### [facility],[address] [place] [address] Glucose [Mass/Vol] 110 mg/dL High 74 - 106 [facility] Comment on above: Performed By: #### 2 39118 #### [facility],[address] [place] [address]89 Potassium [Moles/Vol] 4.0 mmol/L Normal 3.5 - 5.1 [facility] Comment on above: Performed By: #### 2 37013 #### [facility],[address] [place] [address] 56147 Sodium [Moles/Vol] 139 mmol/L Normal 136 - 145 [facility] Comment on above: Performed By: #### 2 72215 #### [facility],[address] [place] [address] 46338 Urea nitrogen [Mass/Vol] 42 mg/dL High 7 - 18 [facility] Comment on above: Performed By: #### 2 05060 #### [facility],[address] [place] [address]24 CBC + DIFFon 03-14-2022 Baso # 0.00 x10EE3/UL Normal 0.00 - 0.10 [facility] Comment on above: Performed By: #### 2 76396 #### [facility],[address] [place] [address] Basophils/100 WBC (Bld) 0.3 % Normal 0.0 - 2.0 [facility] Comment on above: Performed By: #### 2 78593 #### [facility],[address] [place] [address]66 CBC + DIFF Normal [facility] Comment on above: Result Comment: CBC- COMPLETE BLOOD COUNT Performed By: #### 2 41588 #### [facility],[address] [place] [address] 30744 EO # 0.00 x10EE3/UL Normal 0.00 - 0.50 [facility] Comment on above: Performed By: #### 2 10374 #### [facility],[address] [place] [address] Eosinophils/100 WBC (Bld) 0.4 % Normal 0.0 - 7.0 [facility] Comment on above: Performed By: #### 2 76775 #### [facility],[address] [place] [address] Erythrocyte distribution width (RBC) [Ratio] 14.9 % Normal 12.0 - 15.6 [facility] Comment on above: Performed By: #### 2 81990 #### [facility],[address] [place] [address] Hematocrit (Bld) [Volume fraction] 24.5 % Low 40.0 - 52.0 [facility] Comment on above: Performed By: #### 2 14276 #### [facility],[address] [place] [address] Hemoglobin (Bld) [Mass/Vol] 8.0 g/dL Low 13.0 - 17.5 [facility] Comment on above: Performed By: #### 2 83278 #### [facility],[address] [place] [address] Lymph # 1.00 x10EE3/UL Normal 0.80 - 2.80 [facility] Comment on above: Performed By: #### 2 75084 #### [facility],[address] [place] [address] 43755 Lymphocytes/100 WBC (Bld) 24.7 % Normal 20.0 - 45.0 [facility] Comment on above: Performed By: #### 2 26955 #### [facility],[address] [place], [place] [phone] MANUAL DIFF N/A Normal [facility] Comment on above: Performed By: #### 2 49698 #### [facility],[address] [place] [address]337 MCH (RBC) [Entitic mass] 26 pg Low 27 - 33 [facility] Comment on above: Performed By: #### 2 34020 #### [facility],[address] [place] [address] MCHC 33 X10 3 Normal 32 - 36 [facility] Comment on above: Performed By: #### 2 93329 #### [facility],[address] [place] [address] 66134 MCV (RBC) [Entitic vol] 80 fL Low 81 - 98 [facility] Comment on above: Performed By: #### 2 83641 #### [facility],[address] [place] [address]55 [place] # 0.40 x10EE3/UL Normal 0.20 - 1.00 [facility] Comment on above: Performed By: #### 2 02693 #### [facility],[address] [place] [address] MONOS % 9.4 % Normal 0.0 - 10.0 [facility] Comment on above: Performed By: #### 2 86470 #### [facility],[address] [place] [address] 48680 Morphology Enrique (Bld) [Interp] N/A Normal [facility] Comment on above: Result Comment: {CD] Performed By: #### 2 62350 #### [facility],[address] [place] [address] Neut # 2.60 x10EE3/UL Normal 1.50 - 7.10 [facility] Comment on above: Performed By: #### 2 10008 #### [facility],[address] [place] [address]807 Neutrophils/100 WBC (Bld) 65.2 % Normal 46.0 - 76.0 [facility] Comment on above: Performed By: #### 2 93103 #### [facility],[address] [place], [place] [phone] PLATELET 161 x10EE3/UL Normal 150 - 450 [facility] Comment on above: Performed By: #### 2 93533 #### [facility],[address] [place] [address] Platelet mean volume (Bld) [Entitic vol] 7.9 fL Normal 6.4 - 10.5 [facility] Comment on above: Result Comment: AUTO MATED DIFFERENTIAL Performed By: #### 2 78997 #### [facility],[address] [place] [address] RBC 3.06 x 10EE6/UL Low 4.50 - 6.00 [facility] Comment on above: Performed By: #### 2 70411 #### [facility],[address] [place] [address] WBC 4.0 x 10EE3/UL Low 4.5 - 10.8 [facility] Comment on above: Performed By: #### 2 03221 #### [facility],[address] [place], [place] [phone] TROPONIN I, HIGH SENSITIVITY on 03-14-2022 HS TROPONIN 34.2 pg/mL Normal 0.0 - 76.2 [facility] Comment on above: Performed By: #### 2 07671 #### [facility],[address] [place] [address] 22087 HS TROPONIN 31.6 pg/mL Normal 0.0 - 76.2 [facility] Comment on above: Performed By: #### 2 68760 #### [facility],[address] [place], [place] [phone] CBC + DIFFon 03-13-2022 Baso # 0.00 x10EE3/UL Normal 0.00 - 0.10 [facility] Comment on above: Performed By: #### 2 00938 #### [facility],[address] [place] [address]84[address] Basophils/100 WBC (Bld) 0.4 % Normal 0.0 - 2.0 [facility] Comment on above: Performed By: #### 2 83150 #### [facility],[address] [place] [address] CBC + DIFF Normal [facility] Comment on above: Result Comment: CBC- COMPLETE BLOOD COUNT Performed By: #### 2 73727 #### [facility],[address] [place] [address] EO # 0.00 x10EE3/UL Normal 0.00 - 0.50 [facility] Comment on above: Performed By: #### 2 04299 #### [facility],[address] [place] [address]84[address] Eosinophils/100 WBC (Bld) 0.2 % Normal 0.0 - 7.0 [facility] Comment on above: Performed By: #### 2 40824 #### [facility],[address] [place] [address] Erythrocyte distribution width (RBC) [Ratio] 14.8 % Normal 12.0 - 15.6 [facility] Comment on above: Performed By: #### 2 56983 #### [facility],[address] [place], [place] [phone] Hematocrit (Bld) [Volume fraction] 26.1 % Low 40.0 - 52.0 [facility] Comment on above: Performed By: #### 2 65807 #### [facility],[address] [place] [address] Hemoglobin (Bld) [Mass/Vol] 8.7 g/dL Low 13.0 - 17.5 [facility] Comment on above: Performed By: #### 2 27829 #### [facility],[address] [place], [place] [phone] Lymph # 1.30 x10EE3/UL Normal 0.80 - 2.80 [facility] Comment on above: Performed By: #### 2 87378 #### [facility],[address] [place] [address] 77001 Lymphocytes/100 WBC (Bld) 25.4 % Normal 20.0 - 45.0 [facility] Comment on above: Performed By: #### 2 77473 #### [facility],[address] [place] [address]15 MANUAL DIFF N/A Normal [facility] Comment on above: Performed By: #### 2 47042 #### [facility],[address] [place] [address] 63394 MCH (RBC) [Entitic mass] 26 pg Low 27 - 33 [facility] Comment on above: Performed By: #### 2 13368 #### [facility],[address] [place] [address] MCHC 33 X10 3 Normal 32 - 36 [facility] Comment on above: Performed By: #### 2 74417 #### [facility],[address] [place] [address] 72788 MCV (RBC) [Entitic vol] 80 fL Low 81 - 98 [facility] Comment on above: Performed By: #### 2 22011 #### [facility],[address] [place] [address]606 [place] # 0.50 x10EE3/UL Normal 0.20 - 1.00 [facility] Comment on above: Performed By: #### 2 70349 #### [facility],[address] [place] [address] 16414 MONOS % 10.7 % High 0.0 - 10.0 [facility] Comment on above: Performed By: #### 2 58646 #### [facility],[address] [place] [address] 20930 Morphology Enrique (Bld) [Interp] N/A Normal [facility] Comment on above: Result Comment: {CD] Performed By: #### 2 53304 #### [facility],[address] [place] [address] 22276 Neut # 3.10 x10EE3/UL Normal 1.50 - 7.10 [facility] Comment on above: Performed By: #### 2 57370 #### [facility],[address] [place] [address] 74663 Neutrophils/100 WBC (Bld) 63.3 % Normal 46.0 - 76.0 [facility] Comment on above: Performed By: #### 2 05024 #### [facility],[address] [place] [address] 34996 PLATELET 174 x10EE3/UL Normal 150 - 450 [facility] Comment on above: Performed By: #### 2 33658 #### [address] [address] Platelet mean volume (Bld) [Entitic vol] 7.9 fL Normal 6.4 - 10.5 [facility] Comment on above: Result Comment: AUTO MATED DIFFERENTIAL Performed By: #### 2 68593 #### [facility],[address] [place] [address] 96291 RBC 3.28 x 10EE6/UL Low 4.50 - 6.00 [facility] Comment on above: Performed By: #### 2 89886 #### [facility],[address] [place] [address] 02176 WBC 5.0 x 10EE3/UL Normal 4.5 - 10.8 [facility] Comment on above: Performed By: #### 2 41362 #### [facility],[address] [place] [address] 32946 CMP with eGFRon 03-13-2022 AGE 66 years Normal [facility] Comment on above: Performed By: #### 2 24803 #### [address] [address] Albumin [Mass/Vol] 2.6 g/dL Low 3.4 - 5.0 [facility] Comment on above: Performed By: #### 2 50566 #### [facility],[address] [place] [address] 80552 Albumin/Globulin [Mass ratio] 0.8 {ratio} Low 0.9 - 1.6 [facility] Comment on above: Performed By: #### 2 45868 #### [facility],[address] [place], [place] [phone] ALK PHOS 100 U/L Normal 46 - 116 [facility] Comment on above: Performed By: #### 2 75787 #### [facility],[address] [place] [address] ALT [Catalytic activity/Vol] 34 U/L Normal 16 - 63 [facility] Comment on above: Performed By: #### 2 04512 #### [facility],[address] [place] [address] Anion gap [Moles/Vol] 14 mmol/L Normal 10 - 20 [facility] Comment on above: Performed By: #### 2 61337 #### [facility],[address] [place], [place] [phone] AST [Catalytic activity/Vol] 25 U/L Normal 15 - 37 [facility] Comment on above: Performed By: #### 2 25926 #### [facility],[address] [place] [address] 39450 B/C RATIO 16 ratio Normal 0 - 30 [facility] Comment on above: Performed By: #### 2 50690 #### [facility],[address] [place] [address] 18228 Bilirubin [Mass/Vol] 0.3 mg/dL Normal 0.2 - 1.0 [facility] Comment on above: Performed By: #### 2 36715 #### [facility],[address] [place] [address] 34111 Calcium [Mass/Vol] 8.0 mg/dL Low 8.5 - 10.1 [facility] Comment on above: Performed By: #### 2 67560 #### [facility],[address] [place] [address] Chloride [Moles/Vol] 103 mmol/L Normal 98 - 107 [facility] Comment on above: Performed By: #### 2 53168 #### [facility],[address] [place] [address] CMP with eGFR Normal [facility] Comment on above: Result Comment: COMP REHENSIVE METABOLIC PANEL Performed By: #### 2 46881 #### [place] [address] CO2 [Moles/Vol] 21.3 mmol/L Normal 21.0 - 32.0 [facility] Comment on above: Performed By: #### 2 18462 #### [facility],[address] [place] [address] Creatinine [Mass/Vol] 2.94 mg/dL High 0.70 - 1.30 [facility] Comment on above: Performed By: #### 2 86186 #### [facility],[address] [place] [address] eGFR 22 ML/MINUTE Low 60 - 999 [facility] Comment on above: Performed By: #### 2 60174 #### [facility],[address] [place], [place] [phone] eGFR(AA) 26 ML/MINUTE Low 60 - 999 [facility] Comment on above: Result Comment: ACCO RDING TO THE NATIONAL KIDNEY DISEASE EDUCATION PROGRAM(NKDE), A NORMAL eGFR IS A VALUE GREATER THAN OR EQUAL TO 60 ML/MIN/1.73 SQ METERS. CHRONIC KIDNEY DISEASE: <60mL/MIN/1.73 SQ METERS KIDNEY FAILURE: <15mL/MIN/1.73 SQ METERS THIS TEST SHOULD ONLY BE USED FOR PATIENTS 18 YEARS OF AGE AND OLDER. Performed By: #### 2 31423 #### [facility] [place] [address] 28609 Globulin (S) [Mass/Vol] 3.3 g/dL Normal 1.5 - 3.8 [facility] Comment on above: Performed By: #### 2 15901 #### [facility],[address] [place] [address] 44243 Glucose [Mass/Vol] 175 mg/dL High 74 - 106 [facility] Comment on above: Performed By: #### 2 22962 #### [facility],[address] [place] [address] 10464 Potassium [Moles/Vol] 4.0 mmol/L Normal 3.5 - 5.1 [facility] Comment on above: Performed By: #### 2 91691 #### [facility],[address] [place] [address] 10967 Protein [Mass/Vol] 5.9 g/dL Low 6.4 - 8.2 [facility] Comment on above: Performed By: #### 2 91538 #### [facility],[address] [place] [address] 21172 Sodium [Moles/Vol] 134 mmol/L Low 136 - 145 [facility] Comment on above: Performed By: #### 2 54920 #### [facility],[address] [place] [address] 25056 Urea nitrogen [Mass/Vol] 46 mg/dL High 7 - 18 [facility] Comment on above: Performed By: #### 2 91575 #### [facility],[address] [place] [address] 85172 CORONAVIRUS (SARS) ANTIGEN T ESTon 03-13-2022 EXTERNAL QC DONE? YES Normal [facility] Comment on above: Performed By: #### 2 11010 #### [facility],[address] [place] [address] 03137 INTERNAL CONTROL PASS Normal [facility] Comment on above: Performed By: #### 2 57758 #### [facility],[address] [place] [address] SARS ANTIGEN Positive Abnormal NORMAL: NEGATIVE [facility] Comment on above: Result Comment: { CA LLED TO MARY,03/13/22,16:55,KLS { READ BACK BY MARY Performed By: #### 2 72087 #### [facility],[address] [place] [address] SEND TO ? YES Normal [facility] Comment on above: Result Comment: SARS -CoV-2 THIS TEST IS BEING USED UNDER THE FDA EUA PROCEDURE. THIS ASSAY HAS BEEN VALIDATED AT [facility] FOR USE WITH NASAL AND NASOPHARYNGEAL SWAB SPECIMENS. INTERPRETIVE DATA TEST RESULTS SHOULD ALWAYS BE CONSIDERED IN THE CONTEXT OF CLINICAL OBSERVATIONS AND EPIDEMIOLOGICAL DATA IN MAKING FINAL DIAGNOSIS AND PATIENT MANAGEMENT DECISIONS. PATIENT MANAGEMENT SHOULD FOLLOW CURRENT CDC GUIDELINES. THE JYOTHI SARS ANTIGEN DEXTER DOES NOT DIFFERENTIATE BETWEEN SARS-CoV & SARS-CoV-2. A POSITIVE TEST RESULT INDICATES THE PRESENCE OF SARS-CoV-2 NUCLEOCAPSID PROTEIN ANTIGEN, AND THE PATIENT IS INFECTED WITH THE VIRUS AND PRESUMED TO BE CONTAGIOUS. A NEGATIVE TEST RESULT FOR THIS TEST MEANS THAT SARS-CoV-2 NUCLEOCAPSID PROTEIN ANTIGEN WAS NOT PRESENT IN THE SPECIMEN ABOVE THE LIMIT OF DETECTION. HOWEVER, A NEGATIVE RESULT DOES NOT RULE OUT COVID-19 AND SHOULD NOT BE USED THE SOLE BASIS FOR TREATMENT OR PATIENT MANAGEMENT DECISIONS. A NEGATIVE RESULT DOES NOT EXCLUDE THE POSSIBILITY OF COVID-19. NEGATIVE RESULTS, FROM PATIENTS WITH SYMPTOM ONSET BEYOND FIVE DAYS, SHOULD BE TREATED PRESUMPTIVE AND CONFIRMATION WITH A MOLECULAR ASSAY, IF NECESSARY, FOR PATIENT MANAGEMENT, MAY BE PERFORMED. WHEN DIAGNOSTIC TESTING IS NEGATIVE, THE POSSIBLILTY OF A FALSE NEGATIVE RESULT SHOULD BE CONSIDERED IN THE CONTEXT OF A PATIENT'S RECENT EXPOSURES AND THE PRESENCE OF CLINICAL SIGNS AND SYMPTOMS CONSISTENT WITH COVID-19. THE POSSIBILITY OF A FALSE NEGATIVE RESULT SHOULD ESPECIALLY BE CONSIDERED IF THE PATIENT'S RECENT EXPOSURES OR CLINICAL PRESENTATION INDICATE THAT COVID-19 IS LIKELY, AND DIAGNOSTIC TESTS FOR OTHER CAUSES OF ILLNESS (e.g., OTHER RESPIRATORY ILLNESS) ARE NEGATIVE. IF COVID-19 IS STILL SUSPECTED BASED ON EXPOSURE HISTORY TOGETHER WITH OTHER CLINICAL FINDINGS, RE-TESTING SHOULD BE CONSIDERED BY HEALTHCARE PROVIDERS IN CONSULTATION WITH PUBLIC HEALTH AUTHORITIES. Performed By: #### 2 [id number] #### [facility],[address] [place] [address] 45989 CORONAVIRUS PCR - [facility] 03-13-2022 SARS-CoV-2 (COVID-19) RNA EVETTE+probe Ql (Unsp spec) Positive Abnormal NORMAL: NEGATIVE [facility] Comment on above: Result Comment: { CA LLED TO SPEC CARE 2049 { READ BACK BY LO TO CWB Performed By: #### 2 91472 #### [facility],[address] [place] [address] 15489 SEND TO IC? YES Normal [facility] Comment on above: Result Comment: RESU LTS FAXED TO INFECTION CONTROL. SARS-CoV-2 THIS TEST IS BEING USED UNDER THE FDA EUA PROCEDURE. THIS ASSAY HAS BEEN VALIDATED IN THE [facility] FOR USE WITH NASOPHARYNGEAL SPECIMENS IN [facility] [place]. INTERPRETIVE DATA LABORATORY TEST RESULTS SHOULD ALWAYS BE CONSIDERED IN THE CONTEXT OF CLINICAL OBSERVATIONS AND EPIDEMIOLOGICAL DATA IN MAKING FINAL DIAGNOSIS AND PATIENT MANAGEMENT DECISIONS. PATIENT MANAGEMENT SHOULD FOLLOW CURRENT CDC GUIDELINES. A POSITIVE TEST RESULT FOR COVID-19 INDICATES THAT RNA FROM SARS-CoV-2 WAS DETECTED, AND THE PATIENT IS INFECTED WITH THE VIRUS AND PRESUMED TO BE CONTAGIOUS. A NEGATIVE TEST RESULT FOR THIS TEST MEANS THAT SARS-CoV-2 RNA WAS NOT PRESENT IN THE SPECIMEN ABOVE THE LIMIT OF DETECTION. HOWEVER, A NEGATVIE RESULT DOES NOT RULE OUT COVID-19 AND SHOULD NOT BE USED THE SOLE BASIS FOR TREATMENT OR PATIENT MANAGEMENT DECISIONS. A NEGATIVE RESULT DOES NOT EXCLUDE THE POSSIBILITY OF COVID-19. WHEN DIAGNOSTIC TESTING IS NEGATIVE, THE POSSIBLILTY OF A FALSE NEGATIVE RESULT SHOULD BE CONSIDERED IN THE CONTEXT OF A PATIENT'S RECENT EXPOSURES AND THE PRESENCE OF CLINICAL SIGNS AND SYMPTOMS CONSISTENT WITH COVID-19. THE POSSIBILITY OF A FALSE NEGATIVE RESULT SHOULD ESPECIALLY BE CONSIDERED IF THE PATIENT'S RECENT EXPOSURES OR CLINICAL PRESENTATION INDICATE THAT COVID-19 IS LIKELY, AND DIAGNOSTIC TESTS FOR OTHER CAUSES OF ILLNESS (e.g., OTHER RESPIRATORY ILLNESS) ARE NEGATIVE. IF COVID-19 IS STILL SUSPECTED BASED ON EXPOSURE HISTORY TOGETHER WITH OTHER CLINICAL FINDINGS, RE-TESTED SHOULD BE CONSIDERED BY HEALTHCARE PROVIDERS IN CONSULTATION WITH PUBLIC HEALTH AUTHORITIES. Performed By: #### [id number] #### [facility],[address] [place] [id number] CHEST W/O CONTRASTon 08-0 CT CHEST W/O CONTRAST [address] [address] Patient: LOU JULIEN Phone#: : 1955 Age: 66 Gender: M Pt. Type: ER Account: [id number] Location: 052 Ordering: KENDY YE Exam Date: 03/13/2022/17:29 Family Phys: VERA MANRIQUE Charge Code: 917202 Physician: Sanborn Order #: [id number] DLP Dose#: [id number] PROCEDURE: CT CHEST WITHOUT CONTRAST COMPARISON: None. INDICATIONS: Dyspnea. TECHNIQUE: CT images were created without the administration of contrast material. All CT scans at this facility use dose modulation, iterative reconstruction, and/or weight based dosing when appropriate to reduce radiation dose to as low as reasonably achievable. IV CONTRAST: No IV contrast used,0ml TOTAL DOSE: 7.10 CTDIvol(mGy) FINDINGS: LUNGS: Linear atelectasis is present in the right midlung. No visible pulmonary disease. VASCULATURE: Normal. Thrombus cannot be excluded without intravenous contrast. HERMINIA: Normal. No mass or adenopathy. MEDIASTINUM: Normal. No mass or adenopathy. CARDIAC: Moderate cardiomegaly. Cardiac pacing device is present. PLEURA: Normal. No mass or effusion. AORTA: Normal. No aneurysm. CHEST WALL: Normal. No mass or axillary adenopathy. LIMITED ABDOMEN: Mild increase in density in the dependent aspect of the gallbladder is consistent with sludge BONES: Normal. No bony lesion or fracture. OTHER: Negative. CONCLUSION: 1. Cardiomegaly. 2. Biliary sludge/gravel [address] [address] Patient: LOU JULIEN Phone#: : 1955 Age: 66 Gender: M Pt. Type: ER Account: [id number] Location: 052 Ordering: KENDY YE Exam Date: 03/13/2022/17:29 Family Phys: VERA MANRIQUE Charge Code: 060013 Physician: Sanborn Order #: [id number] DLP Dose#: [id number] Dictated by: Martina Robles MD on 03/13/2022 at 17:48 Approved by: Martina Robles MD on 03/13/2022 at 17:51 Normal [facility] CULTURE BLOODon 03-13-2022 Microscopic examination of blood, culture CULTURE BLOOD CULTURE BLOOD SET: 1 of 24HOUR REPORT NEGATIVE 48HOUR REPORT NEGATIVE 72HOUR REPORT NEGATIVE M I C R O B I O L O G Y R E P O R T FINAL ------- Antimicrobial Susceptibility and Organism Identification Report -------- Specimen Number : [id number] Requested : 03/13/22 Specimen Source : BLOOD Collected : 03/13/22 16:20 Winter of Isolation : EMERGENCY ROOM Received : 03/13/22 16:20 Requesting Physician : CASSI -- Patient/Specimen Tests and Comments Specimen Comments -------- -------- FINAL REPORT: NO GROWTH AT 5 DAYS -- Tech : Source : BLOOD ID # : [id number] FINAL Report Date : / / : Collected : 03/13/22 16:20 03/19/[id number]. 03/19/2242.[id number].COMPLETE 1 of 1 NEGATIVE NEGATIVE NEGATIVE Normal [facility] Comment on above: Performed By: #### [id number] #### [facility],[address] [place] [address] Microscopic examination of blood, culture CULTURE BLOOD CULTURE BLOOD SET: 1 of 2 24HOUR REPORT POSITIVE CALLED TO LELE/OSMINO READ BACK BY KATERINE/[id number] GRAM STAIN: GRAM POSITIVE COCCI IN CLUSTERS M I C R O B I O L O G Y R E P O R T FINAL ------- Antimicrobial Susceptibility and Organism Identification Report -------- Specimen Number : [id number] Requested : 03/13/22 Specimen Source : BLOOD Collected : 03/13/22 16:05 Winter of Isolation : EMERGENCY ROOM Received : 03/13/22 16:05 Requesting Physician : CASSI -- Patient/Specimen Tests and Comments Specimen Comments -------- -------- FINAL REPORT: COAGULASE NEGATIVE STAPH PROBABLE CONTAMINATION -- Tech : Source : BLOOD ID # : [id number] FINAL Report Date : / / : Collected : 03/13/22 16:05 03/16/22.1354.BKO. 03/15/22.1139.BKO. 03/16/22.1354.BKO.COMPLETE 1 of 2 POSITIVE GRAM POSITIVE COCCI IN CLUSTERS Normal [facility] Comment on above: Performed By: #### [id number] #### [facility],[address] [place] [address] LACTATEon 03-13-2022 Lactate [Moles/Vol] 0.6 mmol/L Normal 0.4 - 2.0 [facility] Comment on above: Performed By: #### 2 [id number] #### [facility],[address] [place] [address] TROPONIN I, HIGH SENSITIVITY on 03-13-2022 HS TROPONIN 31.9 pg/mL Normal 0.0 - 76.2 [facility] Comment on above: Performed By: #### 2 [id number] #### [facility],[address] [place] [address] HS TROPONIN 32.3 pg/mL Normal 0.0 - 76.2 [facility] Comment on above: Performed By: #### 2 [id number] #### [facility],[address] [place], [place] [address] Absolute lymphocyte counton 03-12-2022 Lymphocytes Auto (Unsp spec) [#/Vol] 0.69 10*3/uL 0.83-4.51 [facility] Work Phone: Basophil percentageon 2021 Basophils/100 WBC (Bld) 0.5 % 0-1 [facility] Work Phone: Bilirubin [Mass/Vol] 0.40 mg/dL 0.20-1.00 [facility] Work Phone: Comment on above: For patients on eltr ombopag therapy, use of Dimension [place] TBIL is not recommended. Chloride [Moles/Vol] 110 mmol/L 98-107 [facility] Work Phone: Cholesterol [Mass/Vol] 128 mg/dL <200 [facility] Work Phone: Comment on above: <200 mg/dL Desirable 200-240 mg/dL Borderline >240 mg/dL High Risk Eosinophils/100 WBC (Bld) 0.2 % 0-5 [facility] Work Phone: Glucose [Mass/Vol] 323 mg/dL 74-106 [facility] Work Phone: Comment on above: Glucose result great er than or equal to 200 mg/dLsuggests DIABETES MELLITUS per A.D.A. criteria. Neutrophils (Bld) [#/Vol] 2.8 10*3/uL 2.0-7.7 [facility] Work Phone: [phone] Neutrophils/100 WBC (Bld) 68.6 % 47-70 [facility] Work Phone: [phone] Potassium [Moles/Vol] 4.1 mmol/L 3.5-5.1 [facility] Work Phone: [phone] Comment on above: Slight Hemolysis, Re sult may be falsely increased. Protein [Mass/Vol] 5.8 g/dL 6.4-8.2 [facility] Work Phone: [phone] Sodium [Moles/Vol] 137 mmol/L 136-145 [facility] Work Phone: [phone] Triglyceride [Mass/Vol] 374 mg/dL <199 [facility] Work Phone: Comment on above: The drugs N-Acetylcy steine and Metamizole may falsely depress this assay.Serum Triglycerides Reference Interval Normal <150 mg/dL Borderline high 150 - 199 mg/dL High 200 - 499 mg/dL Very High > or = 500 mg/dL WBC (Bld) [#/Vol] 4.1 10*3/uL 4.4-11.0 [facility] Work Phone: [phone] Blood erythrocytes count (nu mber/volume)on 03-12-2022 RBC (Bld) [#/Vol] 3.12 10*6/uL 4.6-6.2 [facility] Work Phone: [phone] Blood hemoglobin measurement (mass/volume)on 03-12-2022 Hemoglobin (Bld) [Mass/Vol] 8.5 g/dL 13.0-16.5 [facility] Work Phone: Blood lymphocytes/100 leukoc yteson 03-12-2022 Lymphocytes/100 WBC (Bld) 16.8 % 19-41 [facility] Work Phone: Blood monocytes/100 leukocyt eson 03-12-2022 Monocytes/100 WBC (Bld) 11.7 % 0-10 [facility] Work Phone: Blood platelet mean volumeon 03-12-2022 Platelet mean volume (Bld) [Entitic vol] 9.8 fL 6.2-12.0 [facility] Work Phone: Determination of erythrocyte mean corpuscular volume (MCV)on 03-12-2022 MCV (RBC) [Entitic vol] 82.4 fL 80-94 [facility] Work Phone: Glucose Glucometer (BldC) [M ass/Vol]on 03-12-2022 Glucose [Mass/Vol] 302 mg/dL 74-106 [facility] Work Phone: Comment on above: MANAGEMENT OF PATIEN T CARE PER NURSING PROTOCOL Hematocrit Auto (Bld) [Volum e fraction]on 03-12-2022 Hematocrit (Bld) [Volume fraction] 25.7 % 40-54 [facility] Work Phone: Laboratory - Chemistry and C hemistry - challengeon 03-12-2022 ALP [Catalytic activity/Vol] 112 U/L 45-117 [facility] Work Phone: ALT [Catalytic activity/Vol] 27 U/L 16-61 [facility] Work Phone: CO2 [Moles/Vol] 20.0 mmol/L 21.0-32.0 [facility] Work Phone: Globulin (S) [Mass/Vol] 3.4 g/dL 2.2-4.2 [facility] Work Phone: Urea nitrogen/Creatinine [Mass ratio] 18.3 mg/mg 10-20 [facility] Work Phone: [phone] Magnesium [Mass/Vol] 1.5 mg/dL 1.6-2.6 [facility] Work Phone: Laboratory - Hematology and Cell countson 03-12-2022 Erythrocyte distribution width (RBC) [Entitic vol] 41.3 fL 35.1-43.9 [facility] Work Phone: Erythrocyte distribution width (RBC) [Ratio] 13.7 % 11.6-14.6 [facility] Work Phone: Immature granulocytes/100 WBC (Bld) 2.200 % 0.0-0.9 [facility] Work Phone: Comment on above: IG% - Immature Granu locytes (promyelocytes, myelocytes and metamyelocytes) > 1% indicates that a LEFT SHIFT is Present. MCH (RBC) [Entitic mass] 27.2 pg 27.0-32.0 [facility] Work Phone: [phone] Nucleated RBC/100 WBC (Bld) [Ratio] 0 % 0-5 [facility] Work Phone: MCHC Auto (RBC) [Mass/Vol]on 03-12-2022 MCHC (RBC) [Mass/Vol] 33.1 g/dL 32-36 [facility] Work Phone: No Panel Informationon 03-12 Estimated Creatinine Clearance Calc 33.32 ml/min [facility] Work Phone: Estimated GFR (MDRD) Amer 38 mL/min >60 [facility] Work Phone: Comment on above: GFR Calc Estimated GFR (MDRD) Non-Af Amer 32 mL/min >60 [facility] Work Phone: Comment on above: Non- GFR Calc Thyroid Stimulating Hormone (TSH) 1.05 uIU/mL 0.358-3.74 [facility] Work Phone: Platelets bldon 03-12-2022 Platelets (Bld) [#/Vol] 160 10*3/uL 150-450 [facility] Work Phone: [phone] Serum or plasma albumin harshad urement (mass/volume)on 03-12-2022 Albumin [Mass/Vol] 2.4 g/dL 3.2-5.0 [facility] Work Phone: [phone] Serum or plasma albumin/glob ulin mass ratioon 03-12-2022 Albumin/Globulin [Mass ratio] 0.7 {ratio} 0.9-2.4 [facility] Work Phone: Serum or plasma calcium harshad urement (mass/volume)on 03-12-2022 Calcium [Mass/Vol] 8.3 mg/dL 8.5-10.1 [facility] Work Phone: Serum or plasma cholesterol in HDL measurement (mass/volume)on 03-12-2022 Cholesterol in HDL [Mass/Vol] 25 mg/dL >40 [facility] Work Phone: Comment on above: The drugs N-Acetylcy steine and Metamizole may falsely depress this assay. Reference Range HDL <40 mg/dL Low HDL Cholesterol HDL >or= 60 mg/dL High HDL Cholesterol Serum or plasma cholesterol in VLDL measurement (mass/volume)on 03-12-2022 Cholesterol in VLDL [Mass/Vol] 75 mg/dL 5-40 [facility] Work Phone: Serum or plasma creatinine m easurement (mass/volume)on 03-12-2022 Creatinine [Mass/Vol] 2.24 mg/dL 0.70-1.30 [facility] Work Phone: Comment on above: The validity of the calculated GFR & GFRAA in patients over 70 years has not been determined. Clinical correlation is essential. Serum or plasma low density lipoprotein (LDL) cholesterol measurement (mass/volume)on 03-12-2022 Cholesterol in LDL [Mass/Vol] 28 mg/dL 0-130 [facility] Work Phone: Serum or plasma urea nitroge n measurement (mass/volume)on 03-12-2022 Urea nitrogen [Mass/Vol] 41 mg/dL 7-18 [facility] Work Phone: Thin prep Papanicolaou smear with manual screeningon 03-12-2022 Thin prep Papanicolaou smear with manual screening 29 U/L 15-37 [facility] Work Phone: Comment on above: Slight Hemolysis, Re sult may be falsely increased. Thin prep Papanicolaou smear with manual screening 7 5-15 [facility] Work Phone: Whole blood hemoglobin A1c/t otal hemoglobin ratio (mass fraction)on 03-12-2022 HbA1c (Bld) [Mass fraction] 9.0 % 3.8-5.6 [facility] Work Phone: [phone] Comment on above: Normal < 5.7 % Predi abetic 5.7 - 6.4 % Diabetic >or= 6.5 % Please note range changes. Absolute lymphocyte counton 03-11-2022 Lymphocytes Auto (Unsp spec) [#/Vol] 0.92 10*3/uL 0.83-4.51 [facility] Work Phone: Basophil percentageon 2021 Basophil percentage 0-5 SEEN /hpf 0-5 [facility] Work Phone: Basophils/100 WBC (Bld) 0.4 % 0-1 [facility] Work Phone: [phone] Chloride [Moles/Vol] 111 mmol/L 98-107 [facility] Work Phone: Eosinophils/100 WBC (Bld) 1.3 % 0-5 [facility] Work Phone: [phone] Glucose [Mass/Vol] 305 mg/dL 74-106 [facility] Work Phone: Comment on above: Glucose result great er than or equal to 200 mg/dLsuggests DIABETES MELLITUS per A.D.A. criteria. Neutrophils (Bld) [#/Vol] 3.7 10*3/uL 2.0-7.7 [facility] Work Phone: [phone] Neutrophils/100 WBC (Bld) 68.6 % 47-70 [facility] Work Phone: [phone] Potassium [Moles/Vol] 4.1 mmol/L 3.5-5.1 [facility] Work Phone: [phone] Sodium [Moles/Vol] 139 mmol/L 136-145 [facility] Work Phone: [phone] WBC (Bld) [#/Vol] 5.3 10*3/uL 4.4-11.0 [facility] Work Phone: Bilirubin Test strip Ql (U)o n 03-11-2022 Bilirubin Ql (U) Negative Negative [facility] Work Phone: Blood erythrocytes count (nu mber/volume)on 03-11-2022 RBC (Bld) [#/Vol] 3.22 10*6/uL 4.6-6.2 [facility] Work Phone: Blood hemoglobin measurement (mass/volume)on 03-11-2022 Hemoglobin (Bld) [Mass/Vol] 8.6 g/dL 13.0-16.5 [facility] Work Phone: Blood lymphocytes/100 leukoc yteson 03-11-2022 Lymphocytes/100 WBC (Bld) 17.3 % 19-41 [facility] Work Phone: Blood monocytes/100 leukocyt eson 03-11-2022 Monocytes/100 WBC (Bld) 10.0 % 0-10 [facility] Work Phone: Blood platelet mean volumeon 03-11-2022 Platelet mean volume (Bld) [Entitic vol] 9.8 fL 6.2-12.0 [facility] Work Phone: [phone] Determination of erythrocyte mean corpuscular volume (MCV)on 03-11-2022 MCV (RBC) [Entitic vol] 80.1 fL 80-94 [facility] Work Phone: Hematocrit Auto (Bld) [Volum e fraction]on 03-11-2022 Hematocrit (Bld) [Volume fraction] 25.8 % 40-54 [facility] Work Phone: INR in Blood by Coagulation assayon 03-11-2022 INR Coag (Bld) [Relative time] 1.0 {INR} [facility] Work Phone: Ketones Test strip Ql (U)on 03-11-2022 Ketones Ql (U) Negative Negative [facility] Work Phone: [phone] Laboratory - Chemistry and C hemistry - challengeon 03-11-2022 CO2 [Moles/Vol] 19.0 mmol/L 21.0-32.0 [facility] Work Phone: Urea nitrogen/Creatinine [Mass ratio] 19.4 mg/mg 10-20 [facility] Work Phone: Laboratory - Coagulationon 0 03-11-2022 aPTT Coag (Bld) [Time] 25.8 s 24.1-36.2 [facility] Work Phone: [phone] PT Coag (PPP) [Time] 12.9 s 11.7-14.9 [facility] Work Phone: [phone] Laboratory - Hematology and Cell countson 03-11-2022 Erythrocyte distribution width (RBC) [Entitic vol] 38.7 fL 35.1-43.9 [facility] Work Phone: [phone] Erythrocyte distribution width (RBC) [Ratio] 13.5 % 11.6-14.6 [facility] Work Phone: Immature granulocytes/100 WBC (Bld) 2.400 % 0.0-0.9 [facility] Work Phone: Comment on above: IG% - Immature Granu locytes (promyelocytes, myelocytes and metamyelocytes) > 1% indicates that a LEFT SHIFT is Present. MCH (RBC) [Entitic mass] 26.7 pg 27.0-32.0 [facility] Work Phone: Nucleated RBC/100 WBC (Bld) [Ratio] 0 % 0-5 [facility] Work Phone: MCHC Auto (RBC) [Mass/Vol]on 03-11-2022 MCHC (RBC) [Mass/Vol] 33.3 g/dL 32-36 [facility] Work Phone: [phone] Mucus LM Ql (Urine sed)on Mucus Ql (Urine sed) 0 SEEN /hpf [facility] Work Phone: Nitrite Test strip Ql (U)on 03-11-2022 Nitrite Ql (U) Negative Negative [facility] Work Phone: No Panel Informationon 03-11 Troponin I High Sensitivity 33 pg/mL 3.0-78.0 [facility] Work Phone: Comment on above: Please Note: New Janette t Units and Gender Specific Reference Ranges. For more information see Policy Stat Procedure [place] High Sensitivity Troponin (TNIH) and attachments. Estimated Creatinine Clearance Calc 30.09 ml/min [facility] Work Phone: Estimated GFR (MDRD) Amer 34 mL/min >60 [facility] Work Phone: Comment on above: GFR Calc Estimated GFR (MDRD) Non-Af Amer 28 mL/min >60 [facility] Work Phone: Comment on above: Non- GFR Calc Troponin I High Sensitivity 21 pg/mL 3.0-78.0 [facility] Work Phone: Comment on above: Please Note: New Janette t Units and Gender Specific Reference Ranges. For more information see Policy Stat Procedure [place] High Sensitivity Troponin (TNIH) and attachments. Platelets bldon 03-11-2022 Platelets (Bld) [#/Vol] 198 10*3/uL 150-450 [facility] Work Phone: Protein Test strip Ql (U)on 03-11-2022 Protein Ql (U) 500 mg/dl Negative [facility] Work Phone: Serum or plasma calcium harshad urement (mass/volume)on 03-11-2022 Calcium [Mass/Vol] 8.8 mg/dL 8.5-10.1 [facility] Work Phone: Serum or plasma creatinine m easurement (mass/volume)on 03-11-2022 Creatinine [Mass/Vol] 2.48 mg/dL 0.70-1.30 [facility] Work Phone: Comment on above: The validity of the calculated GFR & GFRAA in patients over 70 years has not been determined. Clinical correlation is essential. Serum or plasma urea nitroge n measurement (mass/volume)on 03-11-2022 Urea nitrogen [Mass/Vol] 48 mg/dL 7-18 [facility] Work Phone: Squamous epithelial cells de tection in urine sediment by light microscopyon 03-11-2022 Epithelial cells.squamous LM Ql (Urine sed) 0-5 SEEN /hpf 0-5 [facility] Work Phone: [phone] Thin prep Papanicolaou smear with manual screeningon 03-11-2022 Thin prep Papanicolaou smear with manual screening 9 5-15 [facility] Work Phone: [phone] Urine blood detectionon - RBC Ql (U) 25 /ul Negative [facility] Work Phone: RBC Ql (U) 0-5 SEEN /hpf 0-5 [facility] Work Phone: Urine clarityon 03-11-2022 Clarity (U) Sl. Cloudy Clear [facility] Work Phone: [phone] Urine color determinationon 03-11-2022 Color (U) Straw Yellow [facility] Work Phone: [phone] Urine glucose detectionon Glucose Ql (U) 250 mg/dl Normal [facility] Work Phone: Urine leukocyte esterase det ection by dipstickon 03-11-2022 Leukocyte esterase Test strip Ql (U) 25 /ul Negative [facility] Work Phone: [phone] Urine pHon 03-11-2022 pH (U) 6.0 [pH] 5.0 - 8.0 [facility] Work Phone: Urine sediment bacteria coun t by microscopy (number/high power field)on 03-11-2022 Bacteria LM.HPF (Urine sed) [#/Area] 0 /[HPF] None Seen [facility] Work Phone: [phone] Urine specific gravity measu rementon 03-11-2022 Specific gravity (U) [Rel density] 1.010 1.002-1.03 0 [facility] Work Phone: [phone] Urobilinogen Auto test strip Ql (U)on 03-11-2022 Urobilinogen Ql (U) Normal mg/dl Normal [facility] Work Phone: [phone] Absolute lymphocyte counton 11-20-2021 Lymphocytes Auto (Unsp spec) [#/Vol] 1.64 10*3/uL 0.83-4.51 [facility] Work Phone: Basophil percentageon 2021 Basophil percentage 25-50 SEEN /hpf 0-5 [facility] Work Phone: Basophils/100 WBC (Bld) 0.3 % 0-1 [facility] Work Phone: Bilirubin [Mass/Vol] 0.20 mg/dL 0.20-1.00 [facility] Work Phone: Comment on above: For patients on eltr ombopag therapy, use of Dimension [place] TBIL is not recommended. Chloride [Moles/Vol] 112 mmol/L 98-107 [facility] Work Phone: Eosinophils/100 WBC (Bld) 3.1 % 0-5 [facility] Work Phone: Glucose [Mass/Vol] 275 mg/dL 74-106 [facility] Work Phone: Comment on above: Glucose result great er than or equal to 200 mg/dLsuggests DIABETES MELLITUS per A.D.A. criteria. Neutrophils (Bld) [#/Vol] 4.0 10*3/uL 2.0-7.7 [facility] Work Phone: Neutrophils/100 WBC (Bld) 61.7 % 47-70 [facility] Work Phone: Potassium [Moles/Vol] 4.7 mmol/L 3.5-5.1 [facility] Work Phone: Protein [Mass/Vol] 6.6 g/dL 6.4-8.2 [facility] Work Phone: Sodium [Moles/Vol] 138 mmol/L 136-145 [facility] Work Phone: WBC (Bld) [#/Vol] 6.5 10*3/uL 4.4-11.0 [facility] Work Phone: Bilirubin Test strip Ql (U)o n 11-20-2021 Bilirubin Ql (U) Negative Negative [facility] Work Phone: [phone] Blood erythrocytes count (nu mber/volume)on 11-20-2021 RBC (Bld) [#/Vol] 3.17 10*6/uL 4.6-6.2 [facility] Work Phone: [phone] Blood hemoglobin measurement (mass/volume)on 11-20-2021 Hemoglobin (Bld) [Mass/Vol] 8.5 g/dL 13.0-16.5 [facility] Work Phone: Blood lymphocytes/100 leukoc yteson 11-20-2021 Lymphocytes/100 WBC (Bld) 25.2 % 19-41 [facility] Work Phone: [phone] Blood monocytes/100 leukocyt eson 11-20-2021 Monocytes/100 WBC (Bld) 8.5 % 0-10 [facility] Work Phone: [phone] Blood platelet mean volumeon 11-20-2021 Platelet mean volume (Bld) [Entitic vol] 9.2 fL 6.2-12.0 [facility] Work Phone: Determination of erythrocyte mean corpuscular volume (MCV)on 11-20-2021 MCV (RBC) [Entitic vol] 79.8 fL 80-94 [facility] Work Phone: [phone] Hematocrit Auto (Bld) [Volum e fraction]on 11-20-2021 Hematocrit (Bld) [Volume fraction] 25.3 % 40-54 [facility] Work Phone: [phone] INR in Blood by Coagulation assayon 11-20-2021 INR Coag (Bld) [Relative time] 1.0 {INR} [facility] Work Phone: [phone] Ketones Test strip Ql (U)on 11-20-2021 Ketones Ql (U) 5 mg/dl Negative [facility] Work Phone: [phone] Laboratory - Chemistry and C hemistry - challengeon 11-20-2021 ALP [Catalytic activity/Vol] 119 U/L 45-117 [facility] Work Phone: ALT [Catalytic activity/Vol] 25 U/L 16-61 [facility] Work Phone: CO2 [Moles/Vol] 20.0 mmol/L 21.0-32.0 [facility] Work Phone: Globulin (S) [Mass/Vol] 3.7 g/dL 2.2-4.2 [facility] Work Phone: Lipase [Catalytic activity/Vol] 60 U/L 73-393 [facility] Work Phone: Urea nitrogen/Creatinine [Mass ratio] 18.4 mg/mg 10-20 [facility] Work Phone: Laboratory - Coagulationon 0 11-20-2021 aPTT Coag (Bld) [Time] 25.9 s 24.1-36.2 [facility] Work Phone: PT Coag (PPP) [Time] 12.6 s 11.7-14.9 [facility] Work Phone: Laboratory - Hematology and Cell countson 11-20-2021 Erythrocyte distribution width (RBC) [Entitic vol] 42.8 fL 35.1-43.9 [facility] Work Phone: [phone] Erythrocyte distribution width (RBC) [Ratio] 14.7 % 11.6-14.6 [facility] Work Phone: Immature granulocytes/100 WBC (Bld) 1.200 % 0.0-0.9 [facility] Work Phone: Comment on above: IG% - Immature Granu locytes (promyelocytes, myelocytes and metamyelocytes) > 1% indicates that a LEFT SHIFT is Present. MCH (RBC) [Entitic mass] 26.8 pg 27.0-32.0 [facility] Work Phone: [phone] Nucleated RBC/100 WBC (Bld) [Ratio] 0 % 0-5 [facility] Work Phone: MCHC Auto (RBC) [Mass/Vol]on 11-20-2021 MCHC (RBC) [Mass/Vol] 33.6 g/dL 32-36 [facility] Work Phone: Mucus LM Ql (Urine sed)on Mucus Ql (Urine sed) 0 SEEN /hpf [facility] Work Phone: Nitrite Test strip Ql (U)on 11-20-2021 Nitrite Ql (U) Positive Negative [facility] Work Phone: No Panel Informationon 11-20 Estimated Creatinine Clearance Calc 30.99 ml/min [facility] Work Phone: Estimated GFR (MDRD) Amer 35 mL/min >60 [facility] Work Phone: Comment on above: GFR Calc Estimated GFR (MDRD) Non-Af Amer 29 mL/min >60 [facility] Work Phone: Comment on above: Non- GFR Calc Platelets bldon 11-20-2021 Platelets (Bld) [#/Vol] 237 10*3/uL 150-450 [facility] Work Phone: Protein Test strip Ql (U)on 11-20-2021 Protein Ql (U) 500 mg/dl Negative [facility] Work Phone: Serum or plasma albumin harshad urement (mass/volume)on 11-20-2021 Albumin [Mass/Vol] 2.9 g/dL 3.2-5.0 [facility] Work Phone: Serum or plasma albumin/glob ulin mass ratioon 11-20-2021 Albumin/Globulin [Mass ratio] 0.8 {ratio} 0.9-2.4 [facility] Work Phone: Serum or plasma calcium harshad urement (mass/volume)on 11-20-2021 Calcium [Mass/Vol] 8.3 mg/dL 8.5-10.1 [facility] Work Phone: Serum or plasma creatinine m easurement (mass/volume)on 11-20-2021 Creatinine [Mass/Vol] 2.44 mg/dL 0.70-1.30 [facility] Work Phone: Comment on above: The validity of the calculated GFR & GFRAA in patients over 70 years has not been determined. Clinical correlation is essential. Serum or plasma urea nitroge n measurement (mass/volume)on 11-20-2021 Urea nitrogen [Mass/Vol] 45 mg/dL 7-18 [facility] Work Phone: Squamous epithelial cells de tection in urine sediment by light microscopyon 11-20-2021 Epithelial cells.squamous LM Ql (Urine sed) 0 SEEN /hpf 0-5 [facility] Work Phone: Thin prep Papanicolaou smear with manual screeningon 11-20-2021 Thin prep Papanicolaou smear with manual screening 14 U/L 15-37 [facility] Work Phone: Thin prep Papanicolaou smear with manual screening 6 5-15 [facility] Work Phone: Urine blood detectionon 11-05 RBC Ql (U) 10 /ul Negative [facility] Work Phone: RBC Ql (U) 0-5 SEEN /hpf 0-5 [facility] Work Phone: Urine clarityon 11-20-2021 Clarity (U) Sl. Cloudy Clear [facility] Work Phone: Urine color determinationon 11-20-2021 Color (U) Yellow Yellow [facility] Work Phone: Urine glucose detectionon Glucose Ql (U) 250 mg/dl Normal [facility] Work Phone: Urine leukocyte esterase det ection by dipstickon 11-20-2021 Leukocyte esterase Test strip Ql (U) 500 /ul Negative [facility] Work Phone: Urine pHon 11-20-2021 pH (U) 6.0 [pH] 5.0 - 8.0 [facility] Work Phone: Urine sediment bacteria coun t by microscopy (number/high power field)on 11-20-2021 Bacteria LM.HPF (Urine sed) [#/Area] 3 /[HPF] None Seen [facility] Work Phone: Urine specific gravity measu rementon 11-20-2021 Specific gravity (U) [Rel density] 1.015 1.002-1.03 0 [facility] Work Phone: Urobilinogen Auto test strip Ql (U)on 11-20-2021 Urobilinogen Ql (U) Normal mg/dl Normal [facility] Work Phone: Absolute lymphocyte counton 11-15-2021 Lymphocytes Auto (Unsp spec) [#/Vol] 1.54 10*3/uL 0.83-4.51 [facility] Work Phone: Basophil percentageon 2021 Basophils/100 WBC (Bld) 0.3 % 0-1 [facility] Work Phone: Chloride [Moles/Vol] 112 mmol/L 98-107 [facility] Work Phone: Eosinophils/100 WBC (Bld) 2.5 % 0-5 [facility] Work Phone: Glucose [Mass/Vol] 200 mg/dL 74-106 [facility] Work Phone: Comment on above: Glucose result great er than or equal to 200 mg/dLsuggests DIABETES MELLITUS per A.D.A. criteria. Neutrophils (Bld) [#/Vol] 4.1 10*3/uL 2.0-7.7 [facility] Work Phone: Neutrophils/100 WBC (Bld) 62.7 % 47-70 [facility] Work Phone: Potassium [Moles/Vol] 4.2 mmol/L 3.5-5.1 [facility] Work Phone: Sodium [Moles/Vol] 141 mmol/L 136-145 [facility] Work Phone: WBC (Bld) [#/Vol] 6.5 10*3/uL 4.4-11.0 [facility] Work Phone: [phone] Blood erythrocytes count (nu mber/volume)on 11-15-2021 RBC (Bld) [#/Vol] 2.97 10*6/uL 4.6-6.2 [facility] Work Phone: [phone] Blood hemoglobin measurement (mass/volume)on 11-15-2021 Hemoglobin (Bld) [Mass/Vol] 7.9 g/dL 13.0-16.5 [facility] Work Phone: Blood lymphocytes/100 leukoc yteson 11-15-2021 Lymphocytes/100 WBC (Bld) 23.7 % 19-41 [facility] Work Phone: Blood monocytes/100 leukocyt eson 11-15-2021 Monocytes/100 WBC (Bld) 9.7 % 0-10 [facility] Work Phone: Blood platelet mean volumeon 11-15-2021 Platelet mean volume (Bld) [Entitic vol] 9.4 fL 6.2-12.0 [facility] Work Phone: [phone] Determination of erythrocyte mean corpuscular volume (MCV)on 11-15-2021 MCV (RBC) [Entitic vol] 78.1 fL 80-94 [facility] Work Phone: Hematocrit Auto (Bld) [Volum e fraction]on 11-15-2021 Hematocrit (Bld) [Volume fraction] 23.2 % 40-54 [facility] Work Phone: [phone] Laboratory - Chemistry and C hemistry - challengeon 11-15-2021 CO2 [Moles/Vol] 24.0 mmol/L 21.0-32.0 [facility] Work Phone: [phone] Urea nitrogen/Creatinine [Mass ratio] 17.7 mg/mg 10-20 [facility] Work Phone: Laboratory - Hematology and Cell countson 11-15-2021 Erythrocyte distribution width (RBC) [Entitic vol] 42.1 fL 35.1-43.9 [facility] Work Phone: Erythrocyte distribution width (RBC) [Ratio] 14.9 % 11.6-14.6 [facility] Work Phone: Immature granulocytes/100 WBC (Bld) 1.100 % 0.0-0.9 [facility] Work Phone: Comment on above: IG% - Immature Granu locytes (promyelocytes, myelocytes and metamyelocytes) > 1% indicates that a LEFT SHIFT is Present. MCH (RBC) [Entitic mass] 26.6 pg 27.0-32.0 [facility] Work Phone: Nucleated RBC/100 WBC (Bld) [Ratio] 0 % 0-5 [facility] Work Phone: MCHC Auto (RBC) [Mass/Vol]on 11-15-2021 MCHC (RBC) [Mass/Vol] 34.1 g/dL 32-36 [facility] Work Phone: No Panel Informationon 11-15 Estimated Creatinine Clearance Calc 29.08 ml/min [facility] Work Phone: Estimated GFR (MDRD) Amer 32 mL/min >60 [facility] Work Phone: Comment on above: GFR Calc Estimated GFR (MDRD) Non-Af Amer 27 mL/min >60 [facility] Work Phone: Comment on above: Non- GFR Calc Platelets bldon 11-15-2021 Platelets (Bld) [#/Vol] 230 10*3/uL 150-450 [facility] Work Phone: Serum or plasma calcium harshad urement (mass/volume)on 11-15-2021 Calcium [Mass/Vol] 8.0 mg/dL 8.5-10.1 [facility] Work Phone: Serum or plasma creatinine m easurement (mass/volume)on 11-15-2021 Creatinine [Mass/Vol] 2.60 mg/dL 0.70-1.30 [facility] Work Phone: Comment on above: The validity of the calculated GFR & GFRAA in patients over 70 years has not been determined. Clinical correlation is essential. Serum or plasma urea nitroge n measurement (mass/volume)on 11-15-2021 Urea nitrogen [Mass/Vol] 46 mg/dL 02-21 [facility] Work Phone: Thin prep Papanicolaou smear with manual screeningon 11-15-2021 Thin prep Papanicolaou smear with manual screening 5 5-15 [facility] Work Phone: Basic Panelon 08-24-2019 Creatinine [Mass/Vol] 1.20 mg/dL High 0.67-1.17 [facility] Comment on above: Result Comment: Use of this assay is not recommended for patients undergoing treatment with phenindione, due to the potential for falsely depressed results. Performed By: #### P 8 #### [facility] [address] [place], [place] [address] Urea nitrogen [Mass/Vol] 22 mg/dL High 18 [facility] Comment on above: Performed By: #### P 8 #### [address] [address] Anion gap [Moles/Vol] 9 mmol/L Normal 8-16 [facility] Comment on above: Performed By: #### P 8 #### [address] [address] Calcium [Mass/Vol] 7.5 mg/dL Low 8.5-10.1 [facility] Comment on above: Performed By: #### P 8 #### [facility] [address] [place], [place] [address] CO2 [Moles/Vol] 23 mmol/L Normal 21-32 [facility] Comment on above: Performed By: #### P 8 #### [facility] [address] [place], [place] [address] Glucose [Mass/Vol] 182 mg/dL High 70-99 [facility] Comment on above: Performed By: #### P 8 #### [address] [address] Chloride [Moles/Vol] 113 mmol/L High 98-107 [facility] Comment on above: Performed By: #### P 8 #### [facility] [address] [place] [address] Potassium [Moles/Vol] 3.8 mmol/L Normal 3.5-5.1 [facility] Comment on above: Performed By: #### P 8 #### [facility] [address] [place] [address] Sodium [Moles/Vol] 141 mmol/L Normal 136-145 [facility] Comment on above: Performed By: #### P 8 #### [facility] [address] [place] [address] CASE MANAGEMon 08-24-2019 CASE MANAGEM HNO ID: [id number] Author: Kareen Granados (Sw) Service: ? Author Type: Signalling And Communications Engineer Type: Care Mgt Progress Note Filed: 08/24/2019 4:37 PM Note Text: CARE MANAGEMENT DISCHARGE NOTE SERVICE DATE: 08/24/2019 SERVICE TIME: 4:35 PM LOS: 3 days Admission Date: 08/21/2019 DISCHARGE ARRANGEMENT (list agency and phone number) Home Care - PT and OT Provider: Phone: CAREGIVER ASSESSMENT: Caregiver is ready, willing and able to meet the patient's needs as recommended by the inter-professional team? Yes] Patient's transition needs and plan for meeting these needs: Home with home care Does the patient have an acute stroke diagnosis, or has the patient had a stroke during this admission? No HANDOFF COMMUNICATION: Rn to go over discharge instructions at bedside TRANSPORTATION ARRANGEMENTS: Car with family ADDITIONAL CONTACT RESOURCES: n/a [facility]charge [facility] complete. [facility] Pt requested BRENT send out several referrals for [facility], referrals sent, awaiting acceptance.Pt's family transporting. SIGNATURE: BRENT Verde PATIENT NAME: Lou Julien DATE: August 24, 2019 TIME: 4:35 PM PAGER/CONTACT #: [phone] [facility] CASE MANAGEM HNO ID: [id number] Author: Kareen Granados (Sw) Service: ? Author Type: Signalling And Communications Engineer Type: Care Mgt Progress Note Filed: 08/25/2019 9:37 AM Note Text: CARE MANAGEMENT PROGRESS NOTE SERVICE DATE: 08/25/2019 SERVICE TIME: 9:36 AM LOS: 3 days Needs Prior to Discharge: Ready for Discharge [facility] accepted pt. SOC is in 24-48hrs. SIGNATURE: BRENT Verde PATIENT NAME: Lou Julien DATE: August 25, 2019 TIME: 9:35 AM PAGER/CONTACT #: [phone] Normal [facility] Glucose Meteron 08-24-2019 Glucose [Mass/Vol] 195 mg/dL High 70-99 [facility] Comment on above: Result Comment: BERKLEY Orozco OTIFIED Performed By: #### G LMET #### [place] [address] Hemogramon 08-24-2019 Erythrocyte distribution width (RBC) [Ratio] 13.2 % Normal 11.6-14.4 [facility] Comment on above: Performed By: #### P 8 #### [place] [address] Hematocrit (Bld) [Volume fraction] 29.1 % Low 40.1-51.0 [facility] Comment on above: Performed By: #### P 8 #### [place] [address] Hemoglobin (Bld) [Mass/Vol] 9.4 g/dL Low 13.7-17.5 [facility] Comment on above: Performed By: #### P 8 #### [place] [address] MCH (RBC) [Entitic mass] 26.6 pg Normal 25.7-32.2 [facility] Comment on above: Performed By: #### P 8 #### [place] [address] MCHC (RBC) [Mass/Vol] 32.3 % Normal 32.3-36.5 [facility] Comment on above: Performed By: #### P 8 #### [place] [address] MCV (RBC) [Entitic vol] 82.4 fL Low 83.2-95.6 [facility] Comment on above: Performed By: #### P 8 #### [facility] [address] [place] [address] Platelet mean volume (Bld) [Entitic vol] 9.3 fL Normal 8.7-12.0 [facility] Comment on above: Performed By: #### P 8 #### [facility] [address] [place], [place] [address] Platelets (Bld) [#/Vol] 255 thou/cmm Normal 141-365 [facility] Comment on above: Performed By: #### P 8 #### [facility] [address] [place] [address] RBC (Bld) [#/Vol] 3.53 mil/cmm Low 4.63-6.08 [facility] Comment on above: Performed By: #### P 8 #### [place] [address] RDW SD 39.5 fl Normal 36.1-45.8 [facility] Comment on above: Performed By: #### P 8 #### [facility] [address] [place] [id number] WBC (Bld) [#/Vol] 6.61 thou/cmm Normal 4.23-9.07 [facility] Comment on above: Performed By: #### P 8 #### [place] [address] MDRD GFRon 08-24-2019 GFR/1.73 sq M predicted among non-blacks MDRD (S/P/Bld) [Vol rate/Area] mL/min/{1.73_m2} Normal >60mL/min/ 1.73m2 [facility] Comment on above: Result Comment: If t he patient is , multiply the result by 1.210. Performed By: #### G FR #### [facility] [address] [place] [address] PROGRESSon 08-24-2019 PROGRESS HNO ID: [id number] Author: Kasey Estrada Service: Hospital Medicine Author Type: Physician Type: Progress Notes Filed: 08/24/2019 9:00 PM Note Text: SERVICE DATE: 08/24/2019 SERVICE TIME: 8:33 AM HOUSE MEDICINE SERVICE PROGRESS NOTE SERVICE DATE: August 22, 2019 SERVICE TIME: 8:31 AM NIGHT AND WEEKEND COVERAGE: 1044 BRIEF HPI: 63 year old male with PMHx of previous CVA on ASA and plavix in 02/2019, T2DM, chronic paraoxysomal supraventrica tachycardia, h/o complete heart block s/p pacemaker in 02/2019 , essential HTN , hyperlipidemia Presented to [place] ED 08/20 with left sided weakness and slurring of speech, starting 2 hours prior to arrival.patient reports that he a fall when he was getting groceries, he was lightheaded prior but no symptoms after the fall. Stroke team was called in the ER . He was not thought to be a tPA candidiate . Initial CT head showed no acute changes . MRI brain without contrast did not show any recent intracranial ischemia .. 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 MRA neck showed no right carotid stenosis, mild (40%) left carotis stenosis Off note previous stroke in 2018 was a lacunar infarct in the right thalamus . On initial examination, he does not report any fevers/Chills/ Chest pain or SOB . His symptoms have resolved and no residual deficits reported by the patient . He mentions that he has been compliant with all his medications as well. INTERVAL EVENTS: Condition: No Change No acute complaints. Tolerating diet and ambulating appropriately. No new neurologic deficits noted. Glycemic control improved with Insulin Glargine 14U + Lispro 8-8-8-0. Creatinine improved, will discontinue hydralazine and restart lisinopril. OBJECTIVE: Medications: Scheduled: insulin lispro, 8 Units, w MEALS hydrALAZINE, 25 mg, q 8 H metoprolol succinate ER, 100 mg, DAILY amLODIPine, 10 mg, DAILY atorvastatin, 80 mg, AT BEDTIME aspirin, enteric coated, 81 mg, DAILY clopidogrel, 75 mg, DAILY enoxaparin, 40 mg, DAILY insulin glargine, 14 Units, AT BEDTIME insulin lispro, , w MEALS PRN: hydrALAZINE, 10 mg, q 6 H PRN dextrose, 15 g, PRN Or glucagon, 1 mg, PRN Or dextrose 50% in water, 12.5 g, PRN Vital Signs: BP 176/78 Pulse 78 Temp (Src) 97.7 (Oral) Resp 18 Ht 5' 9 (1.75m) Wt 170 lb (77.1kg) SpO2 98% BMI 25.09 kg/(m2). O2 Therapy: Room Air Physical Exam: Physical Exam Constitutional: He is oriented to person, place, and time and well-developed, well-nourished, and in no distress. No distress. HENT: Head: Normocephalic and atraumatic. Eyes: Pupils are equal, round, and reactive to light. Neck: Normal range of motion. No tracheal deviation present. No thyromegaly present. Cardiovascular: Normal rate, regular rhythm, normal heart sounds and intact distal pulses. Exam reveals no gallop and no friction rub. No murmur heard. Pulmonary/Chest: Effort normal and breath sounds normal. No respiratory distress. He has no wheezes. He has no rales. He exhibits no tenderness. Abdominal: Soft. Bowel sounds are normal. He exhibits no distension and no mass. There is no abdominal tenderness. There is no rebound and no guarding. Musculoskeletal: Normal range of motion. General: No tenderness, deformity or edema. Neurological: He is alert and oriented to person, place, and time. Skin: Skin is warm and dry. No rash noted. He is not diaphoretic. No erythema. No pallor. Psychiatric: Memory normal. Withdrawn affect Lines, Drains, and Airways Line Peripheral 08/21/192200 Admission to Hospital Short Right Antecubital 20 Gauge 2 days Reviewed lines and needs to be continued: REASONS: Telemetry and Electrolyte replacement Labs: Recent Labs 08/24/19 0415 08/23/19 0343 08/22/19 0411 NA 141 139 142 K 3.8 4.0 3.6 CHLOR 113* 111* 110* CO2 23 24 25 BUN 22* 22* 26* CREAT 1.20* 1.39* 1.40* GLUC 182* 195* 238* ANION 9 8 11 CA 7.5* 8.0* 7.9* WBC 6.61 6.73 6.69 HB 9.4* 9.3* 9.5* HCT 29.1* 29.5* 29.2* PLT 255 255 244 Input / Output: 24 HR: No intake or output data in the 24 hours ending 08/24/19 0831 Routine blood work indicated for tomorrow on account of: active correction of / suspected new electrolyte abnormalities IMAGING: Chest X-ray [08/13/2019]: No acute pathology MICRO: No components found for: CULTURE Assessment AND Plan PLAN NOT FINAL UNTIL STAFFED WITH Robin Barker Lou Julien is a 63 y/o male who initially presented with dizziness and found to have TIA and transferred to [facility] for surgical evaluation of mid-basilar artery stenosis. Continue medical management and when medically stable able to be discharged. PLAN FOR THE DAY: - Restarted Lisinopril; will reassess BP today and plan for discharge - Discontinue Hydralazine - Continue Metoprolol 50mg + Amlodipine for elevated BP - Continue monitoring sugars [Currrently on: Insulin Glargine 14U at bedtime + Lispro 8-8-8-0] - Neurology AND Neurosurgery onboard; appreciate recommendations AND management - Discharge planning to go home with home Occupational Therapy/PT; awaiting for improvement in BP and Creatinine [Tentative on 08/24-08/25] Active Hospital Problems as of 08/24/2019 Noted - Resolved Hospital Diabetes mellitus type 2, uncontrolled (HCC) 06/28/2010 - Present Current Assessment AND Plan Assessment: TYPE 2 DIABETES MELLITUS. Most recent Hba1c 10.3, prior was 9.1. AT home, baseline sugar is around 200-300. PLAN: - Continue home regimen of lantus 14 units at bedtime and lispro 8 units with meals plus correctional sliding scale insulin - Will adjust based on accuchecks - Blood sugars around 160-200 Essential hypertension, benign Unknown - Present Current Assessment AND Plan PLAN: Patient was being allowed permissive HTN for 24 hours prior to arrival - Restarted Metoprolol AND amlodipine - Temporarily given Hydralazine 25mg orally tid for BP control while lisinopril was held for elevated creatinine - Will start patient back on Lisinopril on discharge. TIA (transient ischemic attack) 08/21/2019 - Present Current Assessment AND Plan - Patient presented with left sided weakness and slurring of speech , which have resolved - Ct and MRI brain were negative - MRA showed 80% stenosis of basilar artery - continue aspirin , Plavix ( home meds) , statin - neuro checks - Consult neurology as patient had symptoms while on aspirin and Clopidogrel - Continue medical management. - aspiration precautions Basilar artery stenosis 08/21/2019 - Present Current Assessment AND Plan PLAN: - 80% stenosis of the vertebral artery - Consulted neurosurgery for any possible intervention Medication and Non-Pharmacologic VTE Prophylaxis/Anticoagulants Anticoagulant AND Antiplatelet Medications (From admission, onward) Start Dose Route Frequency Ordered Stop 08/22/19 0900 aspirin, enteric coated 81 mg tab(s) 81 mg ORAL DAILY 08/21/192047 -- 08/22/19 09 clopidogrel 75 mg tab(s) (PLAVIX) 75 mg ORAL DAILY 08/21/192047 -- 08/21/192099 enoxaparin 40 mg injection (LOVENOX) (Medical Risk Categories) 40 mg SUBCUTANEOUS DAILY 08/21/192047 -- 08/21/192044 pneumatic compression stockings (fl,oh) VTE Prophylaxis: VTE prophylaxis appropriate Plan of care discussed with: Provider, RN, Patient SIGNATURE: Juan Puri DO PATIENT NAME: Lou Julien DATE: August 24, 2019 TIME: 8:33 AM PAGER/CONTACT #: [phone] [email or web address] Evaluated Independently and discussed with Dr. Puri Agree with the above notes by Dr. Puri with the following additions Feeling ok No symptoms Vitals BP running high Antihypertensive meds adjusted Lungs clear Heart No gallop Abdomen Soft No new neuro deficits Ambulate well with out help Labs noted Renal function improving Stable for discharge Patient needs to see his PCP in next 3-4 days for follow up of kidney function and blood pressure Discussed with patient regarding condition and plan Time spent > 30 minutes for discharge plan All abnormalities in lab, images and other investigations will be followed by PCP/[facility]. Discussed with the patient in detail regarding the above abnormalities and a need for a follow up. Attestation signed by Kasey Estrada MD [facility] Attending August 24, 2019 8:55 PM Normal [facility] ALLIED HEALTHon 08-23-2019 ALLIED HEALTH HNO ID: [id number] Author: Mirian (Rn) BERKLEY Griffin Service: Diabetes Education Author Type: Registered Nurse Type: Allied Health Filed: 08/23/2019 1:08 PM Note Text: DIABETES EDUCATION PROGRESS NOTE SERVICE DATE: 08/23/2019 SERVICE TIME: 1200 RECOMMENDATIONS: Patient needs to follow-up with primary care physician after discharge. PATIENT HISTORY/ASSESSMENT: Previously diagnosed: Type 2 Has BG meter-unknown brand. Visit summary: Admitted with c/o slurred speech, lightheadedness. 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 A1c 10.3 with rise from 9.1 noted. Checks BG ac tid. Usually ranges in 300s. He is unsure as to what might be the cause of this rise. With regard to his insulin, currently takes mealtime insulin 30 min prior to meals and eats two meals per day. Educated in timing of mealtime insulin to actual meal. He states he will make this adjustment. Also relates that he will begin eating breakfast for 3 meals daily, again with correct insulin timing. See complete education note below. TOPIC(S): Survival Skills: Medication therapy: Oral agent(s) - Metformin (Glucophage) Injectables - Insulin lispro (Humalog) and Insulin glargine (Lantus) Acute complications: Hypoglycemia, Hyperglycemia and Sick Day Management Blood glucose monitoring: Timing techniques, Logging results, Alternating fingers, Disposal of sharps Blood glucose targets: FBS 70-110 2hr pc 70-140 or per primary recs. Reinforced concerns of BG consistently running in 300s. Patient Education/Health Promotion: Complication prevention, Coping skills, Exercise and Self management and follow up Diabetes Management: Self foot care, Foot exam, Dilated eye exam and Hemaglobin A1C EDUCATION: Cognitive ability: Alert and Oriented. Motivation to learn: Interested. Barriers to learning: None Family support: Unable to assess - Family not present Education Type: Individual instruction Written instruction - handouts Verbal instruction Response to education: States/Identifies. Education provided to: Patient. Teachback method used. Time Spent (Minutes): 30 DM Ed complete and will sign off. Re-consult prn. SIGNATURE: Mirian Griffin RN PATIENT NAME: Lou Julien DATE: August 23, 2019 TIME: 12:53 PM PAGER: [phone] Normal [facility] Basic Panelon 08-23-2019 Creatinine [Mass/Vol] 1.39 mg/dL High 0.67-1.17 [facility] Comment on above: Result Comment: Use of this assay is not recommended for patients undergoing treatment with phenindione, due to the potential for falsely depressed results. Performed By: #### P 8 #### [place] [address] Anion gap [Moles/Vol] 8 mmol/L Normal 8-16 [facility] Comment on above: Performed By: #### P 8 #### [facility] [address] [place], [place] [address] CO2 [Moles/Vol] 24 mmol/L Normal 21-32 [facility] Comment on above: Performed By: #### P 8 #### [facility] [address] [place], [place] [address] Urea nitrogen [Mass/Vol] 22 mg/dL High 7-18 [facility] Comment on above: Performed By: #### P 8 #### [facility] [address] [place], [place] [address] Calcium [Mass/Vol] 8.0 mg/dL Low 8.5-10.1 [facility] Comment on above: Performed By: #### P 8 #### [facility] [address] [place], [place] [address] Glucose [Mass/Vol] 195 mg/dL High 70-99 [facility] Comment on above: Performed By: #### P 8 #### [facility] [address] [place], [place] [address] Chloride [Moles/Vol] 111 mmol/L High 98-107 [facility] Comment on above: Performed By: #### P 8 #### [facility] [address] [place], [place] [address] Potassium [Moles/Vol] 4.0 mmol/L Normal 3.5-5.1 [facility] Comment on above: Performed By: #### P 8 #### [facility] [address] [place], [place] [address] Sodium [Moles/Vol] 139 mmol/L Normal 136-145 [facility] Comment on above: Performed By: #### P 8 #### [address] [address] CASE MANAGEMon 08-23-2019 CASE MANAGEM HNO ID: [id number] Author: Callum (Rn) BERKLEY Baltazar Service: Care Management Author Type: Registered Nurse Type: Care Mgt Progress Note Filed: 08/23/2019 3:58 PM Note Text: CARE MANAGEMENT PROGRESS NOTE SERVICE DATE: 08/23/2019 SERVICE TIME: 3:52 PM LOS: 2 days FREEDOM OF CHOICE GIVEN: Levels of care discussed: Yes - Home Care Financial disclosure provided: Yes, with patient Provider List: Home Care Provider list within the patient's requested geographic area shared with the patient/family: No - [facility] and did not want a list Quality and resource use metrics shared with the patient that are relevant to the patient's goals of care and treatment preferences: No, not interested Needs Prior to Discharge: Home Care Order Pt would like to do therapy at home because he said he is essentially home bound and not sure that he will be able to get out to do outpatient therapy. Pt would like [facility] sent to [facility] and a SN to help with diabetes follow up. SIGNATURE: Callum Baltazar RN PATIENT NAME: Lou Julien DATE: August 23, 2019 TIME: 3:52 PM PAGER/CONTACT #: [phone] [facility] CONSULT PROGon 08-23-2019 CONSULT PROG HNO ID: [id number] Author: Regine Zamora Service: Neurology General Author Type: Nurse Practitioner Type: Consult Progress Note Filed: 08/23/2019 8:54 AM Note Text: PROGRESS NOTE NEURO STROKE SERVICE DATE: 08/23/2019 SERVICE TIME: 0630 Subjective INTERVAL HISTORY: Patient awake in bed. C/o being tired and numb all over. No pain, weakness, dizziness. No issues over night per RN MEDICATIONS Current Facility-Administered Medications Medication Dose Route Frequency - atorvastatin 80 mg tab(s) (LIPITOR) 80 mg ORAL AT BEDTIME - aspirin, enteric coated 81 mg tab(s) 81 mg ORAL DAILY - clopidogrel 75 mg tab(s) (PLAVIX) 75 mg ORAL DAILY - enoxaparin 40 mg injection (LOVENOX) 40 mg SUBCUTANEOUS DAILY - dextrose 40 % 15 g 15 g ORAL PRN Or - glucagon 1 mg injection (GLUCAGEN) 1 mg INTRAMUSCULAR PRN Or - dextrose 50% in water 25 mL syringe 12.5 g INTRAVENOUS PRN - insulin glargine 14 Units pen (long acting) (LANTUS SOLOSTAR, BASAGLAR KWIKPEN) 14 Units SUBCUTANEOUS AT BEDTIME - insulin lispro 7 Units pen (rapid acting) (HumaLOG KWIKPEN) 7 Units SUBCUTANEOUS w MEALS - insulin lispro pen (rapid acting) (HumaLOG KWIKPEN) SUBCUTANEOUS w MEALS - metoprolol succinate ER 100 mg tab(s) (TOPROL XL) 100 mg ORAL DAILY - amLODIPine 10 mg tab(s) (NORVASC) 10 mg ORAL DAILY - hydrALAZINE 10 mg injection (APRESOLINE) 10 mg INTRAVENOUS q 6 H PRN Objective PHYSICAL EXAM Vital Signs: BP 171/86 Pulse 80 Temp 36.8 ?C (98.2 ?F) (Oral) Resp 18 Ht 175.3 cm (5' 9) Wt 77.1 kg (170 lb) SpO2 98% BMI 25.10 kg/m? NEUROLOGICAL: LOC: 0 - alert and responsive 0 LOC Questions: 0 - both correct 0 LOC Commands: 0 - both correct 0 LOC Normal Gaze: 0 - normal gaze 0 Visual Patel: 0 - no visual loss 0 Facial Palsy: 0 - normal 0 Motor Left Arm: 0 - no drift 0 Motor Right Arm: 0 - no drift 0 Motor Left Le - no drift 0 Motor Right Le - no drift 0 Limb Ataxia: 0 - no ataxia (or aphasic, hemiplegic) 0 Sensory: 1 - mild to moderate unilateral loss but patient aware of touch (or aphasic, confused) 1 Language: 0 - normal 0 Dysarthria: 0 - normal 0 Extinction/Neglect: 0 - normal, none detected (or visual loss alone) 0 Total Daily NIHSS: 1 (08/23/19 0630 : Regine Zamora) 1 GENERAL: Awake/easily arousable NEUROLOGICAL: MENTAL STATUS: Alert, oriented to person, place and time, Follows commands and Speech fluent and appropriate CRANIAL NERVES: PERRLA, EOM's intact, Visual patel intact to confrontation, Face symmetric, No facial droop or ptosis and No dysarthria, facial sensation intact. Hearing intact to voice bilaterally, tongue midline, MOTOR: No drift MOTOR STRENGTH: Upper and lower extremity 5/5 bilaterally REFLEXES: Not assessed SENSATION: decreased sensation lower ext COORDINATION: Finger-to- nose-finger intact bilaterally GAIT: Not assessed DATA: Diagnostic tests reviewed for today's visit: Lipids, HbA1c, Recent Labs 08/22/19 0411 CHOL 177 HDL 31 LDL 103 TG 216* HBA1C 10.3* Most recent labs and imaging results. MEDICAL EVENTS: No medical events have been recorded. STROKE 9 CARE AND PREVENTION CHECKLIST 1. Is the patient currently on an ANTITHROMBOTIC medication (Antiplatelet or Anticoagulant): Aspirin;Clopidogrel 2. Does the patient have known AFIB/FLUTTER: No 3. Is the patient on a STATIN: Atorvastatin 80 mg 4. Is the patient on VTE prophylaxis: Pharmacological prophylaxis Pharmacological intervention type: Lovenox 5. GLYCEMIC Control Medications: BG needs further management 6. Stroke BP Goals: SBP 130-160 Stroke BP Control: BP needs further management 7. Stroke IVF/Nutrition: Diet 8. TEMPERATURE Control: Normothermic 9. Does the patient need THERAPY: Yes Therapy involvement: PT;OT Stroke Care and Prevention (personally reviewed by Regine Zamora APRN.CNP): Daily Rounding Date: 08/23/19 Daily Rounding Time: 629 PROBLEM LIST: Active Problems: Diabetes mellitus type 2, uncontrolled (HCC) POA: Yes Essential hypertension, benign POA: Yes TIA (transient ischemic attack) POA: Yes Basilar artery stenosis POA: Unknown Resolved Problems: * No resolved hospital problems. * Assessment/Plan Lou Julien is a 63 year old, male, patient. dizziness and left sided weakness- TIA -ASA/Plavix -angio (08/22) Moderate segmental plaque stenosis of the basilar artery. Intracranial atherosclerotic disease -MRI ([facility])- no stroke uncontrolled Diabetes- ug9g=58.3. Encourage better control hyperlipidemia -chol= 177, RNW=187 -statin Hypertension- normalize h/o R thalamic lacunar stroke DVT ppx- lovenox D/c planning- No further workup from neuro standpoint. Follow up with [facility] Neurology. Discharge instructions written. Okay for d/cfrom neuro standpoint when medically stable Stroke Mechanism Stroke Mechanism - LIP ENTRY ONLY Ischemic Stroke or TIA: Transient Ischemic Attack TIA Level of Certainty: Probable TOAST Mechanism ([facility]-MODIFIED): Large-Artery Atherosclerosis (Embolus/Thrombosis) Large-Artery Atherosclerosis (Embolus/Thrombosis): Intracranial Disease - Posterior Circulation Cerebrovascular Disease w/o Stroke Event: Carotid Stenosis Total Daily NIHSS: 1 SIGNATURE: Regine Zamora APRN.CNP PATIENT NAME: Lou Julien DATE: August 23, 2019 TIME: 7:06 AM PAGER/CONTACT #: [phone] Normal [facility] Hemogramon 08-23-2019 Erythrocyte distribution width (RBC) [Ratio] 13.2 % Normal 11.6-14.4 [facility] Comment on above: Performed By: #### P 8 #### [facility] [address] [place] [address] Hematocrit (Bld) [Volume fraction] 29.5 % Low 40.1-51.0 [facility] Comment on above: Performed By: #### P 8 #### [facility] [address] [place] [address] Hemoglobin (Bld) [Mass/Vol] 9.3 g/dL Low 13.7-17.5 [facility] Comment on above: Performed By: #### P 8 #### [facility] [address] [place] [address] MCH (RBC) [Entitic mass] 26.3 pg Normal 25.7-32.2 [facility] Comment on above: Performed By: #### P 8 #### [facility] [address] [place] [address] MCHC (RBC) [Mass/Vol] 31.5 % Low 32.3-36.5 [facility] Comment on above: Performed By: #### P 8 #### [facility] [address] [place] [address] MCV (RBC) [Entitic vol] 83.6 fL Normal 83.2-95.6 [facility] Comment on above: Performed By: #### P 8 #### [facility] [address] [place] [address] Platelet mean volume (Bld) [Entitic vol] 9.7 fL Normal 8.7-12.0 [facility] Comment on above: Performed By: #### P 8 #### [facility] [address] [place] [id number] Platelets (Bld) [#/Vol] 255 thou/cmm Normal 141-365 [facility] Comment on above: Performed By: #### P 8 #### [facility] [address] [place] [address] RBC (Bld) [#/Vol] 3.53 mil/cmm Low 4.63-6.08 [facility] Comment on above: Performed By: #### P 8 #### [facility] [address] [place], [place] [address] RDW SD 40.0 fl Normal 36.1-45.8 [facility] Comment on above: Performed By: #### P 8 #### [facility] [address] [place], [place] [address] WBC (Bld) [#/Vol] 6.73 thou/cmm Normal 4.23-9.07 [facility] Comment on above: Performed By: #### P 8 #### [facility] [address] [place], [place] [address] Misc. Teston 08-23-2019 Misc. Test Result SEE BELOW Normal [facility] Comment on above: Result Comment: ADP Max Aggreg 37 L 65-93 % Max Arach Max Aggreg 34 L 75-100 % Max Interpretation (NOTE) Performing Pathologist: Patito Beckett MD Interpretation: Abnormal - see comment below. The platelet aggregation study is abnormal and suggests combined therapy with aspirin and clopidogrel. If the patient is on aspirin therapy the degree of platelet inhibition indicates incomplete response to aspirin. This is because either the arachidonic acid aggregation is > or = 20 percent or the ADP aggregation is > or = 70 percent. These parameters were developed at the [facility] utilizing the assay and reagents performed on this patient's platelets. Emerson MILNER. Jennifer MILNER. Rani MARROQUIN. A prospective, blinded determination of the natural history of aspirin resistance among stable patients with cardiovascular disease. Journal of the [place] [employer]. 41(6):961-5, 2003. There is a decrease in ADP-induced platelet aggregation. Guidelines for optimal platelet inhibition during clopidogrel therapy have not been well-established. However, if the patient is currently receiving clopidogrel therapy, the results suggest clopidogrel response. The medication record indicates therapy with aspirin at 81 mg/day plus clopidogrel at 75 mg/day. Please correlate these laboratory results with clinical findings and medication history. Performing Laboratory: [facility] [address] [place] [address] Performed By: #### C BC1 #### [address] [address] PROGRESSon 08-23-2019 PROGRESS HNO ID: [id number] Author: Juan Puri DO Service: Hospital Medicine Author Type: Resident Type: Progress Notes Filed: 08/23/2019 1:21 PM Note Text: -- Attestation signed by Robin Barker at 08/23/2019 1:46 PM House Medicine Service Attending Attestation I personally saw and examined the patient. I reviewed the resident?s note. I agree with the resident?s assessment and plan unless otherwise noted. 63 yo male with hx of right thalamic stroke, HTN, dyslipidemia, paroxysmal SVT, 3rd degree AV block s/p pacer, DM with neuropathy, lumbar DDD/chronic low back pain admitted with TIA; MRA and subsequent angiography shows 80% mid basilar artery stenosis, transferred to [facility] for NS consultation. HX: Underwent angiography yesterday which confirmed mid basilar artery occlusion from plaque; no intervention performed. Feels good today; no new complaints. PE: BP 153/85 Pulse 76 Temp 36.8 ?C (98.2 ?F) (Oral) Resp 18 Ht 175.3 cm (5' 9) Wt 77.1 kg (170 lb) SpO2 96% BMI 25.10 kg/m? . WD, WN, NAD. RRR with nl s1 and s2 and no murmurs. LCTAB without crackles, wheezes, or rhonchi. Abdomen soft, NT, ND without masses or HSM. No peripheral edema. Creatinine 1.40->1.39. BG 228, 255, 175, 246, 164. MDM: Increase lispro to 8-8-8 units. Continue glargine 14 units. Would like to eventually restart lisinopril (especially on account of proteinuria), buyt given VENICE, will add hydralazine 25mg po tid for now. Discharge planning; anticipate discharge home this weekend. Robin Barker MD -- SERVICE DATE: 08/23/2019 SERVICE TIME: 1:20 PM HOUSE MEDICINE SERVICE PROGRESS NOTE SERVICE DATE: August 22, 2019 SERVICE TIME: 8:45 AM NIGHT AND WEEKEND COVERAGE: 1044 BRIEF HPI: 63 year old male with PMHx of previous CVA on ASA and plavix in 02/2019, T2DM, chronic paraoxysomal supraventrica tachycardia, h/o complete heart block s/p pacemaker in 02/2019 , essential HTN , hyperlipidemia Presented to [place] ED 08/20 with left sided weakness and slurring of speech, starting 2 hours prior to arrival.patient reports that he a fall when he was getting groceries, he was lightheaded prior but no symptoms after the fall. Stroke team was called in the ER . He was not thought to be a tPA candidiate . Initial CT head showed no acute changes . MRI brain without contrast did not show any recent intracranial ischemia .. 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 MRA neck showed no right carotid stenosis, mild (40%) left carotis stenosis Off note previous stroke in 2019 was a lacunar infarct in the right thalamus . On initial examination, he does not report any fevers/Chills/ Chest pain or SOB . His symptoms have resolved and no residual deficits reported by the patient . He mentions that he has been compliant with all his medications as well. INTERVAL EVENTS: Condition: No Change No acute complaints. He states that feels better than the previous day. Denies chest pain, worsening neurologic deficits, no numbness or tingling in his left upper extremity or lower extremity. Occupational Therapy/PT for discharge planning. OBJECTIVE: Medications: Scheduled: metoprolol succinate ER, 100 mg, DAILY amLODIPine, 10 mg, DAILY atorvastatin, 80 mg, AT BEDTIME aspirin, enteric coated, 81 mg, DAILY clopidogrel, 75 mg, DAILY enoxaparin, 40 mg, DAILY insulin glargine, 14 Units, AT BEDTIME insulin lispro, 7 Units, w MEALS insulin lispro, , w MEALS PRN: hydrALAZINE, 10 mg, q 6 H PRN dextrose, 15 g, PRN Or glucagon, 1 mg, PRN Or dextrose 50% in water, 12.5 g, PRN Vital Signs: BP 180/93 Pulse 75 Temp (Src) 98.1 (Oral) Resp 18 Ht 5' 9 (1.75m) Wt 170 lb (77.1kg) SpO2 96% BMI 25.09 kg/(m2). O2 Therapy: Room Air Physical Exam: Physical Exam Constitutional: He is oriented to person, place, and time and well-developed, well-nourished, and in no distress. No distress. HENT: Head: Normocephalic and atraumatic. Eyes: Pupils are equal, round, and reactive to light. Neck: Normal range of motion. No tracheal deviation present. No thyromegaly present. Cardiovascular: Normal rate, regular rhythm, normal heart sounds and intact distal pulses. Exam reveals no gallop and no friction rub. No murmur heard. Pulmonary/Chest: Effort normal and breath sounds normal. No respiratory distress. He has no wheezes. He has no rales. He exhibits no tenderness. Abdominal: Soft. Bowel sounds are normal. He exhibits no distension and no mass. There is no abdominal tenderness. There is no rebound and no guarding. Musculoskeletal: Normal range of motion. General: No tenderness, deformity or edema. Neurological: He is alert and oriented to person, place, and time. Skin: Skin is warm and dry. No rash noted. He is not diaphoretic. No erythema. No pallor. Psychiatric: Memory normal. Withdrawn affect Lines, Drains, and Airways Line Peripheral 08/21/192200 Admission to Hospital Short Right Antecubital 20 Gauge 1 day Peripheral 08/21/192201 Admission to Hospital Short Right Wrist 20 Gauge 1 day Reviewed lines and needs to be continued: REASONS: Telemetry and Electrolyte replacement Labs: Recent Labs 08/23/19 0343 08/22/19 0411 NA 139 142 K 4.0 3.6 CHLOR 111* 110* CO2 24 25 BUN 22* 26* CREAT 1.39* 1.40* GLUC 195* 238* ANION 8 11 CA 8.0* 7.9* WBC 6.73 6.69 HB 9.3* 9.5* HCT 29.5* 29.2* PLT 255 244 Input / Output: 24 HR: Intake/Output Summary (Last 24 hours) at 08/23/2019 0811 Last data filed at 08/23/2019 0723 Gross per 24 hour Intake ? Output 950 ml Net -950 ml Routine blood work indicated for tomorrow on account of: active correction of / suspected new electrolyte abnormalities IMAGING: Chest X-ray [08/13/2019]: No acute pathology MICRO: No components found for: CULTURE Assessment AND Plan PLAN NOT FINAL UNTIL STAFFED WITH Robin Barker Lou Julien is a 63 y/o male who initially presented with dizziness and found to have TIA and transferred to [facility] for surgical evaluation of mid-basilar artery stenosis. Continue medical management and when medically stable able to be discharged. 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 - Continue Metoprolol 50mg + Amlodipine for elevated BP - Continue to monitor sugars and will reevaluate glycemic control based on glucose checks - Continue monitoring sugars [Currrently on: Insulin Glargine 14U at bedtime + Lispro 8-8-8-0] - Neurology AND Neurosurgery onboard; appreciate recommendations AND management - Discharge planning to go home; awaiting for improvement in BP and Creatinine [Tentative on 08/24-08/25] Active Hospital Problems as of 08/23/2019 Noted - Resolved Hospital Diabetes mellitus type 2, uncontrolled (HCC) 06/28/2010 - Present Current Assessment AND Plan Assessment: TYPE 2 DIABETES MELLITUS. Most recent Hba1c 10.3, prior was 9.1. AT home, baseline sugar is around 200-300. PLAN: - Continue home regimen of lantus 14 units at bedtime and lispro 8 units with meals plus correctional sliding scale insulin - Will adjust based on accuchecks - Blood sugars around 160-200 Essential hypertension, benign Unknown - Present Current Assessment AND Plan PLAN: Patient was being allowed permissive HTN for 24 hours prior to arrival - Restarted Metoprolol AND amlodipine - Held home Lisinopril due to elevated Creatinine. TIA (transient ischemic attack) 08/21/2019 - Present Current Assessment AND Plan - Patient presented with left sided weakness and slurring of speech , which have resolved - Ct and MRI brain were negative - MRA showed 80% stenosis of basilar artery - continue aspirin , Plavix ( home meds) , statin - neuro checks - Consult neurology as patient had symptoms while on aspirin and Clopidogrel - Continue medical management. - aspiration precautions Basilar artery stenosis 08/21/2019 - Present Current Assessment AND Plan PLAN: - 80% stenosis of the vertebral artery - Consulted neurosurgery for any possible intervention Medication and Non-Pharmacologic VTE Prophylaxis/Anticoagulants Anticoagulant AND Antiplatelet Medications (From admission, onward) Start Dose Route Frequency Ordered Stop 08/22/19 09 aspirin, enteric coated 81 mg tab(s) 81 mg ORAL DAILY 08/21/192047 -- 08/22/19 09 clopidogrel 75 mg tab(s) (PLAVIX) 75 mg ORAL DAILY 08/21/192047 -- 08/21/192099 enoxaparin 40 mg injection (LOVENOX) (Medical Risk Categories) 40 mg SUBCUTANEOUS DAILY 08/21/192047 -- 08/21/192044 pneumatic compression stockings (fl,oh) VTE Prophylaxis: VTE prophylaxis appropriate Plan of care discussed with: Provider, RN, Patient SIGNATURE: Juan Puri DO PATIENT NAME: Lou Julien DATE: August 23, 2019 TIME: 1:20 PM PAGER/CONTACT #: [phone] [facility] THERAPY NTon 08-23-2019 THERAPY NT HNO ID: [id number] Author: Allen (Pt) Karson Service: Physical Therapy Author Type: Physical Therapist Type: Therapy (PT/OT/Speech/Resp) Filed: 08/23/2019 12:16 PM Note Text: Physical Therapy Evaluation SERVICE DATE: 08/23/2019 SERVICE TIME: 1141 to 1158 ROOM: [id number] Recommended Discharge Disposition: Outpatient Physical Therapy Recommended Discharge Disposition Comments: Patient appears near baseline level of function. Patient plans to use a cane for stability which appears appropriate. Recommend outpatient PT for higher level balance activities to improve gait stability and minimize fall risk. Anticipated Discharge Needs: Physical Assist at Home Physical Assist at Home for: Cleaning;Laundry Recommended Discharge Equipment: Cane(patient owns) PT Recommendations to Nursing: To bathroom;In halls;OOB for Meals;With assist of 1 person;Ambulate without device PT 6 Clicks Score: 22 Precautions/Activity Restrictions: Fall Risk Precaution/Activity Restriction Comments: narrow base of support ASSESSMENT : This patient was admitted for (liters) sided weakness and slurred speech (TIA), has the past medical history of CVA, T2DM, SVT, pacemaker, HTN, developmental leaning difficulty impacting current functional level, as well as the social factors complicating the discharge of home with multiple stairs. This patient is near baseline functioning of independent with no assistive device but will benefit from continued skilled therapy in the hospital for treatment of the following body systems/impairments: musculoskeletal, neuromuscular, cardiopulmonary, cognitive, with interventions including therapeutic exercise, therapeutic activity, balance activities, gait training, stair training, discharge planning. Patient Disposition at Start of Session: Supine in Bed;Call Bryan in [place] Patient Disposition at End of Session: Supine in Bed;Call [place] in [place];Nursing Personnel Present Tolerated Full Session Physical Therapy Problem List: Education Deficit;Decreased Strength;Functional Mobility Impairment;Balance Impaired;Sensory Deficit Patient /Caregiver Goals: Go Home(get better) Goals for Plan of Care: Transfer sit to/from stand with: Independent Ambulate with: Independent Distance: 150 Device: Cane Ambulate up and down steps with: Independent Number of steps: 12 Device: Rail Goal: Patient will perform 11 repeated sit<>stands with no LOB in 30 seconds. Rehab Potential: Good PLAN: Treatment Frequency (times per week): 3(1-3) Current admission Treatment Interventions: Education;Self Care / Home Management;Strengthening;F unctional Mobility Training;Balance Training;Neuromuscular Re-education Plan of Care developed with: Patient TREATMENT INTERVENTIONS: Therapy Diagnosis: Unsteadiness on feet Interventions Provided: Evaluation $ Evaluation-Low (79795) Billed Units: 1 unit History and examination of body systems see assessment section above. This patient?s clinical presentation is stable. The patient required a low complexity evaluation. Educated on role of PT, discussed PT goals, and educated on PT plan of care. Educated on PT findings, agreement with use of a cane for stability at this time (patient denied need to trail cane with therapist), and recommendations for outpatient PT. Patient verbalized understanding. Total Treatment Time (minutes): 17 SUBJECTIVE: Current Hospital Course: Chart reviewed; 63 year old man admitted with left sided weakness and slurred speech, imaging negative, TIA. 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 Reason for Physical Therapy Consult : (L) sided weakness AND slurred speech Relevant Past Medical History: CVA, developmental learning difficulty, T2DM, pacemaker, HTN Patient Report: I have a cane and I plan to use it. Hoping to return home tomorrow. Pleasant, agreeable to PT. Noted his brother from [place] was calling to check in on him. Home Environment Patient Lives With: Other: See Comment(friend) Assistance Available: 24 Hour Entry To Home: Stairs;With Rail(apartment) Number Of Stairs Into Home: 12(3 flights) Number Of Stairs To Bed/Bath: 0 Tub/Shower Type: tub Laundry: 2 doors down Equipment Owned: Cane;Grab Bars-Shower Prior Functional Level: Within Functional Limits Prior Functional Level Comments: Patient reported independence in all ADLs, IADLs, and ambulation without an assistive device. He drives. Notes 'a couple' falls in the past year, one when carrying groceries up the stairs at his friend's house and another when he lost his balance and EMS took him to the hospital. OBJECTIVE: Range of Motion: WFL Strength: Right UE Measurement;Right LE Measurement;Left UE Measurement;Left LE Measurement Right Shoulder Elevation Strength: 5/5 Right Elbow Flexion Strength: 5/5 Right Elbow Extension Strength: 5/5 Right Wrist Strength: 5/5 Right Intensive Care Anaesthetist Strength: good Right Hip Flexion Strength: 5/5 Right Knee Flexion Strength: 5/5 Right Knee Extension Strength: 5/5 Right Ankle Dorsiflexion Strength: 5/5 Left Shoulder Elevation Strength: 4/5 Left Elbow Flexion Strength: 4/5 Left Elbow Extension Strength: 5/5 Left Wrist Strength: 5/5 Left Intensive Care Anaesthetist Strength: good Left Hip Flexion Strength: 4/5 Left Knee Flexion Strength: 5/5 Left Knee Extension Strength: 5/5 Left Ankle Dorsiflexion Strength: 5/5 Coordination Deficits: Finger opposition;Finger/foot tapping Finger Opposition Impairment: Bilateral Finger/Foot Tapping Impairment: Bilateral CURRENT FUNCTIONAL STATUS: Current Functional Mobility Assist Level Additional Information Rolling Independent Supine to Sit Independent Sit to Supine Independent Scooting Independent Sit to Stand Supervision Stand to Sit Supervision Bed to Chair Toilet/Commode Gait Contact Guard Assistance(CGA-SBA) Gait Device: None Gait Distance (feet): 50 feet x2 Stairs Supervision Stairs Device: Rail Number of Stairs: 12 Curb Step Car Transfer General Gait Deviations: Arm swing decreased;Neris decreased;Lateral sway increased;Narrow Base of Support;Non-functional gait speed Balance: Positive Romberg;Positive Sharpened Romberg;Dynamic Sitting;Static Standing;Dynamic Standing Dynamic Sitting Balance: Normal Able to sit unsupported AND weight shift across midline maximally Static Standing Balance: Good- / Fair+ Able to maintain standing balance against minimal resistance Dynamic Standing Balance: Fair Stand independently unsupported, weight shift, and reach ipsilaterally, LOB when crossing midline JH-HLM: 7: Walk 25 feet or more Functional Performance Test Functional Performance Test: 30 Second Sit to Stand 30 Second Sit To Stand (count): 9 30 Second Sit To Stand Gait Device: None Please see discipline specific clinical documentation flowsheet for complete details for this therapy evaluation/treatment. SIGNATURE: Allen Ty PT PATIENT NAME: Lou Julien DATE: August 23, 2019 TIME: 12:08 PM Normal [facility] THERAPY NT HNO ID: [id number] Author: Jessica Gallegor/Pravin Wiggins OT Service: Occupational Therapy Author Type: Occupational Therapist Type: Therapy (PT/OT/Speech/Resp) Filed: 08/23/2019 10:17 AM Note Text: Occupational Therapy Evaluation SERVICE DATE: 08/23/2019 SERVICE TIME: 0945 to 0958 ROOM: [id number] Recommended Discharge Disposition: Home Recommended Discharge Disposition Comments: Pt near baseline function. Rec return home with friend assist as needed for IADLs. Anticipated Discharge Needs: Physical Assist at Home Physical Assist at Home for: Cleaning OT Recommendations to Nursing: To Bathroom for ADL?s /and or Toileting;OOB for meals;With assist of 1 person Equipment: Wheeled Walker OT 6 Clicks Score: 22 Precautions/Activity Restrictions: Fall Risk Precaution/Activity Restriction Comments: narrow base of support ASSESSMENT: Patient presents with L sided weakness and slurred speech (imaging negative) with past medical history significant for CVA and developmental learning difficulty. Pt demo's min deficits in ADLs and functional mobility with narrow base of support leading to increased fall risk. Pt is CGA for LB ADLs and functional mobility. Pt does appear close to his baseline function and demo's good understanding of utilizing cane for support as needed at home. Patient Disposition at Start of Session: Sitting on Edge of Bed;Call Bryan in Reach Patient Disposition at End of Session: Call Bryan in Re[place];Other: See Comment(sitting EOB) Tolerated Full Session Occupational Therapy Problem List: Impaired Self Care;Functional Mobility Impairment;Balance Impaired Patient /Caregiver Goals: Go Home Goals for Plan of Care: Grooming with: Independent Lower Body Bathing with: Independent Lower Body Dressing with: Independent Chair Transfer with: Independent Toilet Transfer with: Independent Tolerate (minutes of functional activity): 35 Functional Activity with: Independent Additional Goal 1: Pt will demo good dynamic standing balance during OOB ADLs and functional mobility Demonstrate Competence With Education with: Independent Rehab Potential: Good PLAN: Treatment Frequency (times per week): 5(1-5) Current admission Treatment Interventions: Education;Self Care / Home Management;Functional Mobility Training Plan of Care developed with: Patient TREATMENT INTERVENTIONS: Therapy Diagnosis: Reduced mobility-other;Decreased activities of daily living (ADL);Unsteadiness on feet Interventions Provided: Evaluation $ Evaluation-Low (30621) Billed Units: 1 unit Total Treatment Time (minutes): 13 SUBJECTIVE: Current Hospital Course: Chart reviewed; presents with L sided weakness and slurred speech (imaging negative) Reason for Occupational Therapy Consult: TIA Relevant Past Medical History: CVA, developmental learning difficulty Patient Report: Pt sitting on edge of bed, agreeable to session. No c/o pain, reports feeling good. Also states that his daughter who lives in [facility] (whom he hasn't seen in 3 years) is coming to stay with him. 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 OBJECTIVE: Cognition/Communication Deficits Responsiveness: Alert Follows Commands: 2-step Commands CURRENT FUNCTIONAL STATUS: Current Activities of Daily Living Assist Level Feeding Independent Grooming Stand By Assistance Bathing Upper Body Stand By Assistance Bathing Lower Body Contact Guard Assistance Dressing Upper Body Independent Dressing Lower Body Contact Guard Assistance Toileting Stand By Assistance Functional Mobility Assist Level Rolling Supine to Sit Sit to Supine Scooting Sit to Stand Stand By Assistance Stand to Sit Stand By Assistance Bed to Chair Toilet/Commode Stand By Assistance Functional Mobility Stand By Assistance Range of Motion: WFL Strength: WFL Activity Tolerance: Standing Activity Standing Activity: Functional mobility to/from bathroom Standing Activity Tolerance (in minutes): 4 Please see discipline specific clinical documentation flowsheet for complete details for this therapy evaluation/treatment. SIGNATURE: PAPA Martell/Clinton PATIENT NAME: Lou Julien DATE: August 23, 2019 TIME: 10:12 AM Normal [facility] ALLIED HEALTHon 08-22-2019 ALLIED HEALTH HNO ID: [id number] Author: Mirian PatrickRn) BERKLEY Griffin Service: Diabetes Education Author Type: Registered Nurse Type: Allied Health Filed: 08/22/2019 3:16 PM Note Text: DM ED Note: Pt post procedure/procedural sedation with window of less than 2 hours. Plan for diabetes education in AM. [facility] ALLIED HEALTH HNO ID: [id number] Author: Mirian Wren) BERKLEY Griffin Service: Diabetes Education Author Type: Registered Nurse Type: Allied Health Filed: 08/22/2019 1:39 PM Note Text: Consult received. Chart reviewed. Will follow for DM ed needs. Normal [facility] Basic Panelon 08-22-2019 Creatinine [Mass/Vol] 1.40 mg/dL High 0.67-1.17 [facility] Comment on above: Result Comment: Use of this assay is not recommended for patients undergoing treatment with phenindione, due to the potential for falsely depressed results. Performed By: #### P 8 #### [place] [address] Calcium [Mass/Vol] 7.9 mg/dL Low 8.5-10.1 [facility] Comment on above: Performed By: #### P 8 #### [facility] [address] [place], [place] [address] Anion gap [Moles/Vol] 11 mmol/L Normal 8-16 [facility] Comment on above: Performed By: #### P 8 #### [address] [address] CO2 [Moles/Vol] 25 mmol/L Normal 21-32 [facility] Comment on above: Performed By: #### P 8 #### [facility] [address] [place], [place] [address] Glucose [Mass/Vol] 238 mg/dL High 70-99 [facility] Comment on above: Performed By: #### P 8 #### [facility] [address] [place], [place] [address] Urea nitrogen [Mass/Vol] 26 mg/dL High 7-18 [facility] Comment on above: Performed By: #### P 8 #### [facility] [address] [place], [place] [address] Chloride [Moles/Vol] 110 mmol/L High 98-107 [facility] Comment on above: Performed By: #### P 8 #### [facility] [address] [place], [place] [address] Potassium [Moles/Vol] 3.6 mmol/L Normal 3.5-5.1 [facility] Comment on above: Performed By: #### P 8 #### [facility] [address] [place], [place] [address] Sodium [Moles/Vol] 142 mmol/L Normal 136-145 [facility] Comment on above: Performed By: #### P 8 #### [address] [address] CASE MGT INIT COOKIEESon 2019 CASE MGT INIT PARDEEP HNO ID: [id number] Author: Callum (Rn) BERKLEY Baltazar Service: Care Management Author Type: Registered Nurse Type: Care Mgt Initial Assessment Filed: 08/22/2019 4:36 PM Note Text: CARE MANAGEMENT: ASSESSMENT AND DISCHARGE PLAN SERVICE DATE: 08/22/2019 SERVICE TIME: 1600 PRIMARY CARE PHYSICIAN: VERA MANRIQUE MD ADMISSION STATUS: Inpatient Needs Prior to Discharge: To Be Determined MEDICAL: 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 No Advance Directive: Current Advance Directive: None Patch Driller Attempted to Assist with AD Completion: Yes Action: Education Provided;Patient Unwilling Health Literacy: 1. How often do you need to have someone help you when you read instructions, pamphlets, or other written material from your doctor or pharmacy? Never - 1 2. How confident are you filling out medical forms by yourself? Extremely - 1 If Patient scores > 3 on either question, the following interventions were put into place: Patient did not score > 3 FUNCTIONAL AND COGNITIVE/BEHAVIORAL PRIOR TO ADMISSION: Baseline Mental Status: Alert AND Oriented, Person, Place , Time and Situation Functional Status: Independent Does Patient Currently Receive Any Community Services or Home Care? None Equipment Prior to Admission: Cane - Straight Glucometer Has the Patient Been in a Senior Care Facility in the Past 30 days? No SOCIAL: Living Arrangement: Home Lives With: Friend(s) Financial Resources: Disabled Primary Contact: Extended Emergency Contact Information Primary Emergency Contact: BolivarDevi Mobile Relation: Daughter Secondary Emergency Contact: Suki Lerma (Renetta) Mobile Relation: Sister Supportive: Yes Other Important Patient Contacts: None Caregiver Assessment: Caregiver is ready, willing and able to meet the patient's needs as recommended by the inter-professional team? No Caregiver Needed Patient's transition needs and plan for meeting these needs: Home. Pt will keep follow up appointments and take medications as prescribed. Does the patient have an acute stroke diagnosis, or has the patient had a stroke during this admission? Yes Medication Adherence: I am convinced of the importance of my prescription medication: Agree completely - 0 I worry that my prescription medication will do more harm than good to me Disagree completely - 0 I feel financially burdened by my [id number] expenses for my prescription medication: Disagree completely - 0 Patient is categorized as low risk < 2 Are you interested in bedside delivery of your medications? No Is the Patient Psychosocially Complex? No ASSESSMENT AND PLAN: Medical Needs: 2 or more chronic diseases and Stroke/Cognitive defects Psychosocial Needs: None FREEDOM OF CHOICE EXPLAINED: No - No placements necessary POTENTIAL TRANSITION PLANS Home To Be Determined Pt from home living with friend Elizabeth [employer]. Driving. +PCP +DME +RX([facility]). Pt hopes to return home with friends to transport. Currently up with 1 assist, may benefit from therapy evals. Will follow for transitional care planning. SIGNATURE: Callum Baltazar RN PATIENT NAME: Lou Julien DATE: August 22, 2019 TIME: 4:31 PM PAGER/CONTACT #: [phone] Normal [facility] CONSULTon 08-22-2019 CONSULT HNO ID: [id number] Author: Eitan Magallon Jr. Service: Neurology Stroke Author Type: Physician Type: Consults Filed: 08/22/2019 11:13 AM Note Text: INITIAL CONSULT NEURO STROKE SERVICE DATE: 08/22/2019 SERVICE TIME: 1000 REQUESTING PHYSICIAN: TATY PCP: VERA MANRIQUE MD REASON FOR STROKE EVALUATION: VBI Subjective HPI: 63yoM with many risk factors for CVD and stroke who was admitted to [facility] x 2 days with a chief complaint of dizziness and left sided weakness he had a brain MRI there despite his pacemaker (it is apparently MRI compatible), and it did not show any stroke by report however his MRA did show an 80% basilar artery stenosis by report, and he was transferred here to have us evaluate that since he has been on dual antiplatelet therapy with aspirin + Plavix and has had the above symptomatology despite this. Of note he has had poorly controlled DM2 with symptoms of dizziness also when his blood sugars are high as detailed in recent outpatient encounter notes. He still feels like his left side is subjectively weak. He has diabetic neuropathy with stocking pattern sensory loss. He did fall down the stairs 3 days ago but is not sure whether or not he hit his head. He does have a h/o R thalamic lacunar stroke. He has PSVT and a pacemaker but not a fib, per previous records. 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 - Dyslipidemia - Essential hypertension, benign - Family history of malignant neoplasm of gastrointestinal tract - Non-proliferative diabetic retinopathy, mild, both eyes (HCC) 10/11/2017 - Other specific developmental learning difficulties - Pneumonia 07/07/15 Dx at [facility] - Psoriasis and similar disorders - Pure hypercholesterolemia - Pure hyperglyceridemia - Right thalamic infarction (HCC) 02/18/2019 [facility] - Stenosis of carotid artery - Stroke (HCC) - Tietze's disease - Tinea unguium 12/01/2017 - Type II or unspecified type diabetes mellitus with neurological manifestations, not stated as uncontrolled(250.60) PAST SURGICAL HISTORY Procedure Laterality Date - COLONOSCOP W/ OR W/O BRSH SPEC 2017 repeat 3 years - EGD W/O OR W/BRUSH/WASH 2017 EGD - LAPAROSCOP GASTRIC BYPASS N/A - PACEMAKER 03/04/2019 - PAST SURGICAL HISTORY OF EGD - PAST SURGICAL HISTORY OF Colonsocopy - REVISE MEDIAN N/CARPAL TUNNEL SURG 05/08/12 Carpal tunnel decomp right Social History Tobacco Use - Smoking status: Former Smoker Types: Cigars - Smokeless tobacco: Never Used - Tobacco comment: quit 1994 Substance Use Topics - Alcohol use: No - Drug use: No FAMILY HISTORY Problem Relation Age of Onset - Stroke Mother - Hypertension Mother - Colon Cancer Mother - Heart Father IA - Cancer Sister ALLERGIES Allergen Reactions - Lopid [Gemfibrozil] Diarrhea MEDICATION Pre-admission atorvastatin (LIPITOR) 80 mg tablet, Take 1 tablet by mouth every morning., Disp: 28 tablet, Rfl: , 08/21/2019 at Unknown time metFORMIN ER (GLUCOPHAGE XR) 500 mg 24 hr tablet, Take 2 tablets by mouth twice daily., Disp: 120 tablet, Rfl: , 08/21/2019 at Unknown time multivitamin (DAILY-YOUSUF) tablet, Take 1 tablet by mouth once daily., Disp: 28 tablet, Rfl: , 08/21/2019 at Unknown time metoprolol succinate ER (TOPROL XL) 100 mg Tb24, Take 1 tablet by mouth every morning., Disp: 30 tablet, Rfl: , 08/21/2019 at Unknown time amLODIPine (NORVASC) 5 mg tablet, Take 1 tablet by mouth every morning., Disp: 28 tablet, Rfl: , 08/21/2019 at Unknown time traZODone (DESYREL) 50 mg tablet, Take 1 tablet by mouth daily at bedtime., Disp: 30 tablet, Rfl: 3, 08/21/2019 at Unknown time bacitracin zinc 500 unit/gram ointment, APPLY TO LOWER RIGHT LEG THREE TIMES DAILY., Disp: , Rfl: insulin glargine (BASAGLAR KWIKPEN U-100 INSULIN) 100 unit/mL (3 mL) inpn, Inject 14 Units subcutaneously daily at bedtime., Disp: 1 Pen, Rfl: 5 lancets 33 gauge misc, TEST BLOOD SUGAR(S) ONCE DAILY, Disp: , Rfl: 11 insulin lispro (HUMALOG KWIKPEN INSULIN) 100 unit/mL inpn, Inject 7 Units subcutaneously three times daily before meals., Disp: 3 mL, Rfl: 2 lisinopril (ZESTRIL) 40 mg tablet, Take 1 tablet by mouth every morning., Disp: 28 tablet, Rfl: 11 ibuprofen (MOTRIN) 800 mg tablet, Take 1 tablet by mouth every 8 hours as needed for Pain. Take with food. Do NOT take with other NSAIDs, Disp: 30 tablet, Rfl: 2 melatonin 3 mg tablet, Take 1 tablet by mouth daily at bedtime., Disp: 30 tablet, Rfl: 2 Insulin [place], Disposable, (BD ULTRA-FINE LUIS PEN NEEDLE) 32 gauge x 5/32 ndle, Use one needle daily for each insulin dose, 4 x's daily. Type 2 DM, insulin dependent., Disp: 150 Each, Rfl: 11, Taking glucose (DEX4 GLUCOSE) 4 gram chewable tablet, Take 4 tablets by mouth as needed., Disp: 20 tablet, Rfl: 2, Taking blood sugar diagnostic (BLOOD GLUCOSE TEST) test strip, Test blood sugar(s) one times daily. Dx: Type 2 DM - Uncontrolled E11.65 Insulin: Yes, Disp: 50 Strip, Rfl: 11, Taking Lancets lancets, Test blood sugar(s) one times daily. Dx: Type 2 DM - Uncontrolled E11.65 Insulin: Yes, Disp: 100 Each, Rfl: 11, Taking triamcinolone (KENALOG) 0.025 % lotn, Apply 1 application to affected area twice daily. To bilateral legs, Disp: 60 mL, Rfl: 1, Taking polyethylene glycol 3350 (MIRALAX, GLYCOLAX) 17 gram/dose powder, Take 17 g by mouth once daily. Drink a mix of 1 scoop in 8oz of water/beverage once daily as needed for constipation. (Patient not taking: Reported on 06/13/2019 ), Disp: 850 g, Rfl: 2, Not Taking alcohol swabs (ALCOHOL PREP PADS) padm, Apply 1 application to affected area once daily with insulin injection, Disp: 100 Each, Rfl: 3, Taking ranitidine (ZANTAC) 150 mg tablet, Take 1 tablet by mouth twice daily. (Patient not taking: Reported on 07/25/2019 ), Disp: 56 tablet, Rfl: 0, Not Taking clopidogrel (PLAVIX) 75 mg tablet, Take 1 tablet by mouth once daily. Started during hospitalization for stroke in February 2019, Disp: 30 tablet, Rfl: 5, Taking aspirin, enteric coated (ADULT LOW DOSE ASPIRIN) 81 mg EC tablet, Take 1 tablet by mouth every morning., Disp: 28 tablet, Rfl: 11, Taking naproxen (NAPROSYN) 500 mg tablet, Take 1 tablet by mouth twice daily with meals. Take with food., Disp: 30 tablet, Rfl: 0, Taking gabapentin (NEURONTIN) 100 mg capsule, Take 1 capsule by mouth daily at bedtime for 180 days., Disp: 28 capsule, Rfl: 5, Taking Lancing Device (LANCING DEVICE WITH LANCETS) [facility], Use to check blood sugars as directed, Disp: 1 Each, Rfl: 0, Taking dicyclomine (BENTYL) 10 mg capsule, Take 1 capsule by mouth before meals and at bedtime., Disp: 12 capsule, Rfl: 0, Taking white petrolatum-mineral oil (EUCERIN) cream, Apply 1 application to affected area twice daily. (Patient not taking: Reported on 07/25/2019 ), Disp: 100 g, Rfl: 1, Not Taking COMPOUNDED PRESCRIPTION, Diabetic shoes: DIABETES MELLITUS- uncontrolled with neuropathy, Disp: 1 Each, Rfl: 3, Taking Syringe with Needle, Safety (BD INTEGRA) 3 mL 22 x 1 1/2 syrg, Uses twice a month for testosterone injections, Disp: 50 Syringe, Rfl: 3, Taking Current atorvastatin (LIPITOR) 80 mg tablet Take 1 tablet by mouth every morning. metFORMIN ER (GLUCOPHAGE XR) 500 mg 24 hr tablet Take 2 tablets by mouth twice daily. multivitamin (DAILY-YOUSUF) tablet Take 1 tablet by mouth once daily. metoprolol succinate ER (TOPROL XL) 100 mg Tb24 Take 1 tablet by mouth every morning. amLODIPine (NORVASC) 5 mg tablet Take 1 tablet by mouth every morning. traZODone (DESYREL) 50 mg tablet Take 1 tablet by mouth daily at bedtime. bacitracin zinc 500 unit/gram ointment APPLY TO LOWER RIGHT LEG THREE TIMES DAILY. insulin glargine (BASAGLAR KWIKPEN U-100 INSULIN) 100 unit/mL (3 mL) inpn Inject 14 Units subcutaneously daily at bedtime. lancets 33 gauge misc TEST BLOOD SUGAR(S) ONCE DAILY insulin lispro (HUMALOG KWIKPEN INSULIN) 100 unit/mL inpn Inject 7 Units subcutaneously three times daily before meals. lisinopril (ZESTRIL) 40 mg tablet Take 1 tablet by mouth every morning. ibuprofen (MOTRIN) 800 mg tablet Take 1 tablet by mouth every 8 hours as needed for Pain. Take with food. Do NOT take with other NSAIDs melatonin 3 mg tablet Take 1 tablet by mouth daily at bedtime. Insulin [place], Disposable, (BD ULTRA-FINE LIUS PEN NEEDLE) 32 gauge x 5/32 ndle Use one needle daily for each insulin dose, 4 x's daily. Type 2 DM, insulin dependent. glucose (DEX4 GLUCOSE) 4 gram chewable tablet Take 4 tablets by mouth as needed. blood sugar diagnostic (BLOOD GLUCOSE TEST) test strip Test blood sugar(s) one times daily. Dx: Type 2 DM - Uncontrolled E11.65 Insulin: Yes Lancets lancets Test blood sugar(s) one times daily. Dx: Type 2 DM - Uncontrolled E11.65 Insulin: Yes triamcinolone (KENALOG) 0.025 % lotn Apply 1 application to affected area twice daily. To bilateral legs polyethylene glycol 3350 (MIRALAX, GLYCOLAX) 17 gram/dose powder Take 17 g by mouth once daily. Drink a mix of 1 scoop in 8oz of water/beverage once daily as needed for constipation. alcohol swabs (ALCOHOL PREP PADS) padm Apply 1 application to affected area once daily with insulin injection ranitidine (ZANTAC) 150 mg tablet Take 1 tablet by mouth twice daily. clopidogrel (PLAVIX) 75 mg tablet Take 1 tablet by mouth once daily. Started during hospitalization for stroke in February 2019 aspirin, enteric coated (ADULT LOW DOSE ASPIRIN) 81 mg EC tablet Take 1 tablet by mouth every morning. naproxen (NAPROSYN) 500 mg tablet Take 1 tablet by mouth twice daily with meals. Take with food. gabapentin (NEURONTIN) 100 mg capsule Take 1 capsule by mouth daily at bedtime for 180 days. Lancing Device (LANCING DEVICE WITH LANCETS) [facility] [place] Use to check blood sugars as directed dicyclomine (BENTYL) 10 mg capsule Take 1 capsule by mouth before meals and at bedtime. white petrolatum-mineral oil (EUCERIN) cream Apply 1 application to affected area twice daily. COMPOUNDED PRESCRIPTION Diabetic shoes:DIABETES MELLITUS- uncontrolled with neuropathy Syringe with Needle, Safety (BD INTEGRA) 3 mL 22 x 1 1/2 syrg Uses twice a month for testosterone injections REVIEW OF SYSTEMS The following systems were reviewed with the patient, and are unremarkable other than as described below. SYSTEMIC: No fever, chills, or change in weight or appetite HEENT: No recent change in vision or hearing. GI: No recent nausea, vomiting or diarrhea. : No recent hematuria or dysuria. SKIN: No recent itching or eruption. PSYCH: No recent active anxiety or depression. HEMATOLOGY/ONCOLOGY: No recent diagnosis of bleeding or cancer. ENDOCRINE: No recent diagnosis of DM or thyroid disease. RHEUMATOLOGY: No recent active connective tissue disease. Objective PHYSICAL EXAM Vital Signs: BP 178/95 Pulse 91 Temp 36.8 ?C (98.2 ?F) (Oral) Resp 16 Ht 175.3 cm (5' 9) Wt 77.1 kg (170 lb) SpO2 95% BMI 25.10 kg/m? NEUROLOGICAL: LOC: 0 - alert and responsive 0 LOC Questions: 0 - both correct 0 LOC Commands: 0 - both correct 0 LOC Normal Gaze: 0 - normal gaze 0 Visual Patel: 0 - no visual loss 0 Facial Palsy: 0 - normal 0 Motor Left Arm: 0 - no drift 0 Motor Right Arm: 0 - no drift 0 Motor Left Le - no drift 0 Motor Right Le - no drift 0 Limb Ataxia: 0 - no ataxia (or aphasic, hemiplegic) 0 Sensory: 1 - mild to moderate unilateral loss but patient aware of touch (or aphasic, confused) 1 Language: 0 - normal 0 Dysarthria: 0 - normal 0 Extinction/Neglect: 0 - normal, none detected (or visual loss alone) 0 Initial NIHSS: 1 (08/22/19 1059 : Eitan Magallon Jr.) 1 MENTAL STATUS: Alert, oriented to person, place and time, Follows commands and Speech fluent and appropriate CRANIAL NERVES: PERRLA, EOM's intact, Visual patel intact to confrontation, Extraocular movements intact, Facial sensation intact, Face symmetric, No facial droop or ptosis, Hearing intact to finger rub bilaterally, No dysarthria, Palate elevates symmetrically, Tongue protrudes midline and Shoulder shrug intact and symmetric MOTOR: No drift, Normal tone and Normal bulk MOTOR STRENGTH: Upper and lower extremity 5/5 bilaterally REFLEXES: UE and LE reflexes are equal and reactive SENSATION: Diminished light touch, pinprick, proprioception in a stocking pattern (mild) COORDINATION: Finger-to- nose-finger intact bilaterally and Ylbz-wv-vges intact bilaterally GAIT: Normal-based DATA: Diagnostic tests reviewed for today's visit: Lipids, HbA1c, Recent Labs 08/22/19410 CHOL 177 HDL 31 LDL 103 TG 216* HBA1C 10.3* CMP, CBC, Coags Recent Labs 08/22/19410 NA 142 K 3.6 CHLOR 110* CO2 25 BUN 26* CREAT 1.40* GLUC 238* CA 7.9* WBC 6.69 HB 9.5* HCT 29.2* PLT 244 Cardiac Enzymes Most recent labs and imaging results. Significant findings were elevated glucoses, HbA1C, elevated BUN/CR STROKE CARE PATH [facility] Date Patient Last Known Well: 08/19/19 Time Patient Last Known Well: 1100 Date of Patient Arrival at THIS Facility: 08/21/19 Time of Patient Arrival at THIS Facility: [address] [place] Coma Scale Totals (Calculated): [address] Imaging Review: NO acute Imaging available, NO acute Imaging reviewed CTA Imaging Review: CTA Imaging not available or not performed Candidate for Endovascular Therapy (Last Known Well within 24 hours): No - Last Known Well greater than 24 hours STROKE 9 CARE AND PREVENTION CHECKLIST 1. Is the patient currently on an ANTITHROMBOTIC medication (Antiplatelet or Anticoagulant): Aspirin;Clopidogrel 2. Does the patient have known AFIB/FLUTTER: No 3. Is the patient on a STATIN: Atorvastatin 80 mg 4. Is the patient on VTE prophylaxis: Pharmacological prophylaxis Pharmacological intervention type: Lovenox 5. GLYCEMIC Control Medications: BG needs further management 6. Stroke BP Goals: SBP 130-160 Stroke BP Control: BP needs further management 7. Stroke IVF/Nutrition: Diet 8. TEMPERATURE Control: Normothermic 9. Does the patient need THERAPY: Yes Therapy involvement: PT;OT Stroke Care and Prevention (personally reviewed by Eitan Magallon MD): Daily Rounding Date: 08/22/19 Daily Rounding Time: 1102 PROBLEM LIST: Active Problems: Diabetes mellitus type 2, uncontrolled (HCC) POA: Yes Essential hypertension, benign POA: Yes TIA (transient ischemic attack) POA: Yes Basilar artery stenosis POA: Unknown Resolved Problems: * No resolved hospital problems. * Impression/Recommendations Lou Julien is a 63 year old, male, right handed patient. ? Who may have symptomatic VBI though this is not clear he has had similar dizziness in the past from hyperglycemia, and although he is subjectively weak on his left side he does not have any objective weakness Risk Factors Hypertension Y Coronary Artery Disease Y Diabetes Y Obesity N Dyslipidemia Y Tobacco Use (Please Update Smoking History) N Stroke Y Intracranial Aneurysm N Stroke Mechanism Stroke Mechanism - LIP ENTRY ONLY Ischemic Stroke or TIA: Transient Ischemic Attack TIA Level of Certainty: Probable TOAST Mechanism ([facility]-MODIFIED): Large-Artery Atherosclerosis (Embolus/Thrombosis) Large-Artery Atherosclerosis (Embolus/Thrombosis): Intracranial Disease - Posterior Circulation Cerebrovascular Disease w/o Stroke Event: Carotid Stenosis PLAN ? Conventional cerebral angiogram with Dr. Herrera his metformin has been held. We will need to review his [place] films and try to determine whether or not his basilar stenosis is truly symptomatic as well. He has had a lot of recent hyperglycemia with similar symptomatology (except for the left sided weakness). His previous thalamic stroke could represent VBI or could simply be small vessel disease. Will review angiogram findings with Dr. Herrera and then discuss future treatment options depending on how significant the basilar stenosis is angiographically. I discussed with the pt how his uncontrolled DM2 in particular (and to some extent also his other risk factors is greatly increasing his risk of progression of his extracranial and intracranial atherosclerosis and greatly elevating his risk of a stroke, IV tPA was not recommended to be given to the patient, refer to Exclusion Criteria as documented in Stroke Care Path. Imaging Ordered Today: Digital Subtraction Angiogram (DSA) ordered for following of known vascular lesion or repair. Acute stroke warning sign and symptom education given to patient and action plan of call 911 immediately if they occur. SIGNATURE: Eitan Magallon MD PATIENT NAME: Lou Julien DATE: August 22, 2019 TIME: 10:53 AM PAGER/CONTACT #: [phone] Normal [facility] Ferritinon 08-22-2019 Ferritin [Mass/Vol] 348.00 ng/mL Normal 26.00-38 8. 00 [facility] Comment on above: Performed By: #### F ERR #### [facility] [address] [place] [id number] HISTORY PHYSICALon 0 HISTORY PHYSICAL HNO ID: [id number] Author: Iggy (Karyna Salazar MD Service: Hospital Medicine Author Type: Resident Type: HANDP Filed: 08/21/2019 10:17 PM Note Text: -- Attestation signed by Robin Barker at 08/23/2019 1:48 PM House Medicine Service Attending Attestation I personally saw and examined the patient on 08/22/19. I reviewed the resident?s note. I agree with the resident?s assessment and plan unless otherwise noted. Robin Barker MD -- SERVICE DATE: 08/21/2019 SERVICE TIME: 10:16 PM HOSPITAL MEDICINE HISTORY AND PHYSICAL PCP: VERA MANRIQUE MD SUBJECTIVE Chief Complaint: TIA HPI: 63 year old male with PMH of previous CVA on ASA and plavix in 02/2019, T2DM, chronic paraoxysomal supraventrica tachycardia, h/o complete heart block s/p pacemaker in 02/2019 , essential HTN , hyperlipidemia Presented to [place] ED 08/20 with left sided weakness and slurring of speech, starting 2 hours prior to arrival.patient reports that he a fall when he was getting groceries, he was lightheaded prior but no symptoms after the fall. Stroke team was called in the ER . He was not thought to be a tPA candidiate . Initial CT head showed no acute changes . MRI brain without contrast did not show any recent intracranial ischemia .. 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 MRA neck showed no right carotid stenosis, mild (40%) left carotis stenosis Off note previous stroke in 2019 was a lacunar infarct in the right thalamus . He does not report any fevers/Chills/ Chest pain or SOB . His symptoms have resolved and no residual deficits reported by the patient . He mentions that he has been compliant with all his medications as well. 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 - Essential hypertension, benign - Family history of malignant neoplasm of gastrointestinal tract - Non-proliferative diabetic retinopathy, mild, both eyes ([facility]) 10/11/2017 - Other specific developmental learning difficulties - Pneumonia 07/07/15 Dx at [facility] ER - Psoriasis and similar disorders - Pure hypercholesterolemia - Pure hyperglyceridemia - Right thalamic infarction (HCC) 02/18/2019 [facility] - Tietze's disease - Tinea unguium 12/01/2017 - Type II or unspecified type diabetes mellitus with neurological manifestations, not stated as uncontrolled(250.60) PAST SURGICAL HISTORY Procedure Laterality Date - COLONOSCOP W/ OR W/O [facility] SPEC 2017 repeat 3 years - EGD W/O OR W/BRUSH/WASH 2017 EGD - LAPAROSCOP GASTRIC BYPASS N/A - PACEMAKER 03/04/2019 - PAST SURGICAL HISTORY OF EGD - PAST SURGICAL HISTORY OF Colonsocopy - REVISE MEDIAN N/CARPAL TUNNEL SURG 05/08/12 Carpal tunnel decomp right FAMILY HISTORY Problem Relation Age of Onset - Stroke Mother - Hypertension Mother - Colon Cancer Mother - Heart Father IA - Cancer Sister Social History Tobacco Use - Smoking status: Former Smoker Types: Cigars - Smokeless tobacco: Never Used - Tobacco comment: quit 1994 Substance Use Topics - Alcohol use: No - Drug use: No Medications: Reviewed Allergies: ALLERGIES Allergen Reactions - Lopid [Gemfibrozil] Diarrhea Review of Systems: GENERAL: No weight loss, malaise or fevers HEENT: Negative for frequent or significant headaches, No changes in hearing or vision, no nose bleeds or other nasal problems NECK: Negative for lumps, goiter, pain and significant neck swelling RESPIRATORY: Negative for cough, hemoptysis, wheezing, COPD, dyspnea or shortness of breath CARDIOVASCULAR: Negative for chest pain, leg swelling, hypertension, CHF or palpitations GI: No nausea, vomiting, or diarrhea : No history of dysuria, frequency or incontinence HEMATOLOGY/LYMPHOLOGY: Negative for prolonged bleeding, bruising easily or swollen nodes ENDOCRINE: Negative for cold or heat intolerance, polyuria, polydipsia and goiter NEURO: No history of headaches, syncope, paralysis, seizures or tremors OBJECTIVE: PHYSICAL EXAM BP 177/81 Pulse 91 Temp (Src) 97.9 (Oral) Resp 18 Ht 5' 9 (1.75m) Wt 170 lb (77.1kg) SpO2 96% BMI 25.09 kg/(m2). O2 Therapy: Room Air Physical Exam Performed: PHYSICAL EXAMINATION: General appearance: Well appearing, alert, in no acute distress, well-hydrated, well nourished. Lungs: lungs clear to auscultation. No wheezing, rhonchi, rales Heart: RRR without murmur, gallop, or rubs. No ectopy Abdomen: Normal abdominal exam, Abdomen soft, non-tender. Bowel sounds normal. No masses, organomegaly Extremities: No deformities, edema, skin discoloration, clubbing or cyanosis. Good capillary refill. Musculoskeletal: No joint swelling, deformity, or tenderness Peripheral pulses: Normal Neuro: No focal neurological deficits , motor strength 5/5 bilaterally upper and lower extremities, no loss of sensation . PEERLA Lines, Drains, and Airways Line Peripheral 08/21/19 220 Admission to Hospital Short Right Antecubital 20 Gauge less than 1 day Peripheral 08/21/19 220 Admission to Hospital Short Right Wrist 20 Gauge less than 1 day Diagnostic tests reviewed: Most recent labs and imaging results Assessment AND Plan Active Hospital Problems as of 08/21/2019 Noted - Resolved Hospital Essential hypertension, benign Unknown - Present Current Assessment AND Plan PLAN: Patient was being allowed permissive HTN for 24 hours prior to arrival - Will restart amlodipine and metoprolol first . Diabetes mellitus type 2, uncontrolled (HCC) 06/28/2010 - Present Current Assessment AND Plan Assessment: T2DM PLAN: - Check Hba1c - Continue home regimen of lantus 14 units at bedtime and lispro 7 units with meals plus correctional sliding scale insulin TIA (transient ischemic attack) 08/21/2019 - Present Current Assessment AND Plan - Patient presented with left sided weakness and slurring of speech , which have resolved - Ct and MRI brain were negative - MRA showed 80% stenosis of basilar artery - continue aspirin , Plavix ( home meds) , statin - neuro checks - Consult neurology as patient had symptoms while on aspirin and plavix - aspiration precautions Basilar artery stenosis 08/21/2019 - Present Current Assessment AND Plan PLAN: - 80% stenosis of the vertebral artery - Consulted neurosurgery for any possible intervention Medication and Non-Pharmacologic VTE Prophylaxis/Anticoagulants Anticoagulant AND Antiplatelet Medications (From admission, onward) Start Dose Route Frequency Ordered Stop 08/22/19 0900 aspirin, enteric coated 81 mg tab(s) 81 mg ORAL DAILY 08/21/192047 -- 08/22/19 0900 clopidogrel 75 mg tab(s) (PLAVIX) 75 mg ORAL DAILY 08/21/192047 -- 08/21/192099 enoxaparin 40 mg injection (LOVENOX) (Medical Risk Categories) 40 mg SUBCUTANEOUS DAILY 08/21/192047 -- 08/21/192044 pneumatic compression stockings (ok,oh) VTE Prophylaxis: VTE prophylaxis appropriate SIGNATURE: Iggy Salazar MD PATIENT NAME: Lou Julien DATE: August 21, 2019 TIME: 10:16 PM PAGER/CONTACT #: [phone] Normal [facility] Hemogramon 08-22-2019 Erythrocyte distribution width (RBC) [Ratio] 13.2 % Normal 11.6-14.4 [facility] Comment on above: Performed By: #### C BC1 #### [facility] [address] [place], [place] [address] Hematocrit (Bld) [Volume fraction] 29.2 % Low 40.1-51.0 [facility] Comment on above: Performed By: #### C BC1 #### [facility] [address] [place], [place] [address] Hemoglobin (Bld) [Mass/Vol] 9.5 g/dL Low 13.7-17.5 [facility] Comment on above: Performed By: #### C BC1 #### [facility] [address] [place], [place] [address] MCH (RBC) [Entitic mass] 26.5 pg Normal 25.7-32.2 [facility] Comment on above: Performed By: #### C BC1 #### [facility] [address] [place], [place] [address] MCHC (RBC) [Mass/Vol] 32.5 % Normal 32.3-36.5 [facility] Comment on above: Performed By: #### C BC1 #### [facility] [address] [place] [address] MCV (RBC) [Entitic vol] 81.6 fL Low 83.2-95.6 [facility] Comment on above: Performed By: #### C BC1 #### [facility] [address] [address] Platelet mean volume (Bld) [Entitic vol] 10.0 fL Normal 8.7-12.0 [facility] Comment on above: Performed By: #### C BC1 #### [facility] [address] [place], [place] [address] Platelets (Bld) [#/Vol] 244 thou/cmm Normal 141-365 [facility] Comment on above: Performed By: #### C BC1 #### [facility] [address] [place], [place] [address] RBC (Bld) [#/Vol] 3.58 mil/cmm Low 4.63-6.08 [facility] Comment on above: Performed By: #### C BC1 #### [facility] [address] [place], [place] [address] RDW SD 39.2 fl Normal 36.1-45.8 [facility] Comment on above: Performed By: #### C BC1 #### [facility] [address] [place], [place] [address] WBC (Bld) [#/Vol] 6.69 thou/cmm Normal 4.23-9.07 [facility] Comment on above: Performed By: #### C BC1 #### [facility] [address] [place] [address] Hgb A1con 08-22-2019 HbA1c (Bld) [Mass fraction] 249 mg/dl Normal [facility] Comment on above: Performed By: #### H A1C #### [facility] [address] [place], [place] [address] HbA1c (Bld) [Mass fraction] 10.3 % High 4.2-6.3 [facility] Comment on above: Result Comment: Meth od is National Glycohemoglobin Standardization Program (NGSP) compliant. Performed By: #### H A1C #### [place] [address] Iron % Saturationon 08-22-19 20 Iron % Saturation 20 % Normal 20-55 [facility] Comment on above: Performed By: #### I RONS #### [place] [address] Iron Binding Cap. 188 ug/dL Low 250-450 [facility] Comment on above: Performed By: #### I RONS #### [place] [address] Iron Serum 38 ug/dL Low 65-175 [facility] Comment on above: Performed By: #### I RONS #### [place] [address] Lipid Profileon 08-22-2019 Cholesterol in HDL [Mass/Vol] 31 mg/dL Normal >40 [facility] Comment on above: Performed By: #### L IPD2 #### [place] [address] Cholesterol in LDL [Mass/Vol] 103 mg/dL Normal [facility] Comment on above: Result Comment: No C AD and with fewer than 2 CAD risk factors <160 mg/dL No CAD but with 2 or more CAD risk factors <130 mg/dL Definite CAD or other atherosclerotic disease <100 mg/dL Performed By: #### L IPD2 #### [place] [address] Cholesterol in LDL/Cholesterol in HDL [Mass ratio] 3.3 Normal 1.1-4.8 [facility] Comment on above: Result Comment: LDL, VLDL,LDL/HDL, Invalid if Triglyceride >400 Performed By: #### L IPD2 #### [facility] [address] [place] [address] Cholesterol.total/Choles terol in HDL [Mass ratio] 5.7 {ratio} Normal 2.1-7.3 [facility] Comment on above: Performed By: #### L IPD2 #### [facility] [address] [place] [address] Cholesterol in VLDL [Mass/Vol] 43 mg/dL Normal <50 Desired [facility] Comment on above: Performed By: #### L IPD2 #### [place] [address] Triglyceride [Mass/Vol] 216 mg/dL High 0-149 A [facility] Comment on above: Result Comment: < 20 0 Desirable Result invalid if not a fasting specimen. Performed By: #### L IPD2 #### [place] [address] Cholesterol [Mass/Vol] 177 mg/dL Normal 0-199 [facility] Comment on above: Result Comment: <200 Desirable 200-240 Borderline >240 High Performed By: #### L IPD2 #### [place] [address] Misc. Teston 08-22-2019 [facility] Order Code ASPCLP Normal [facility] Comment on above: Performed By: #### C BC1 #### [place] [address] Test Name ASP/CLOP PANEL Normal [facility] Comment on above: Performed By: #### C BC1 #### [place] [address] NIL CAROTID CEREBRAL BILATER [place] 08-22-2019 NIL CAROTID CEREBRAL BILATERAL * * *Final Report* * * DATE OF EXAM: Aug 22 2019 2:11PM A6A [id number] - NIL CAROTID CEREBRAL BILATERAL / PROCEDURE REASON: DCA TIA * * * * Physician Interpretation * * * * Diagnostic cerebral angiogram CLINICAL HISTORY: This patient is a 63 year-old Male who presented with transient ischemic attack in the setting of basilar artery stenosis. A diagnostic cerebral angiogram was requested to further define clinical care. PROCEDURE: Diagnostic cerebral angiogram. TIME OUT TIME: 1316 PROCEDURE START TIME: 1320 PROCEDURE END TIME: 1400 ATTENDING: Kendy Herrera M.D BUHR DRESSER : None, The procedure was performed by the attending without an medical office receptionist assistant. The attending performed the following procedural activities: Diagnostic cerebral angiogram. ANGIOGRAPHY MATERIALS: Diagnostic catheter: 5 German Vert Catheter , 5 German pigtail catheter Guidewire: 0.035 inch angled tapered Glidewire. Fluoroscopic Radiation Summary: Plane A, Air Kerma: 889.0 mGy Plane B, Air Kerma: 488.0 mGy Dose Area Product (DAP): 0.0 mGy*cm2 Fluoro time: 11:06 min: sec arterial: 160 ml of OMNIPAQUE 300 ANESTHESIA: No sedation was administered. Continuous monitoring by a dedicated nurse was performed. Pulsed oximetry, cardiopulmonary monitoring and electrocardiography was performed throughout the procedure. Intra-service time: 45 minutes. Patient monitoring: I personally supervised and directed an independent trained observer who assisted in monitoring the patient?s level of consciousness and physiological status throughout the procedure. TECHNIQUE: After homero discussion of the risks and benefits of diagnostic cerebral angiography, informed consent was obtained. The patient was brought to the angiography suite and placed in supine position. After hemodynamic monitoring was established, conscious sedation was administered by our nursing staff. The right groin was prepped and draped in the usual standard fashion, 1% lidocaine was used for local anesthetic. After fluoroscopic localization of the right femoral head, vascular access was obtained in the right common femoral artery utilizing a 4 German micropuncture set. A 5 German sheath was inserted and connected to heparinized saline flush. A 5F pigtail catheter was advanced over a PTFE wire to the ascending aorta and the wire removed. Using a power injection and views over the chest, angiographic imaging of the aortic arch was performed. The diagnostic catheter and wire were then fluoroscopically advanced for selective catheterization of the following vessels: Brachiocephalic vascular family: Right common carotid artery, cervical views. Right common carotid artery, intracranial views. Standard AP, lateral and oblique views. Right subclavian artery, chest and cervical views. Left carotid vascular family: Left common carotid artery, cervical views. Left common carotid artery, intracranial views. Standard AP, lateral and oblique views. Left subclavian vascular family: Left subclavian artery, chest and cervical views. Left vertebral artery, intracranial views. Standard AP, lateral, oblique views. Angiographic imaging was performed at each selected vessel with views as described above. After no further views and images were determined to be necessary, the procedure was terminated. All catheters and wires were removed from the patient. Hemostasis at the right groin was obtained by [employer]. The patient was transferred to their prior bed space in stable condition without immediate complication. FINDINGS: AORTIC ARCH: DSA images of the aortic arch demonstrate a normal configuration of the arch and great vessels. The arch is class I. No significant atherosclerotic involvement of the aortic arch. There is minimal to mild atherosclerotic plaque involvement of the proximal bilateral subclavian arteries. . The origins of the major daughter branches are patent. RIGHT COMMON CAROTID ARTERY INJECTION (cervical): DSA images of the right anterior cervical circulation demonstrate normal course and caliber of the distal common carotid artery. The bifurcation is at C3. There is minimal atherosclerotic plaque irregularity of the carotid bifurcation and carotid bulb without stenosis by NASCET. The cervical ICA has a mildly tortuous course and normal caliber. There is no evidence of dissection, aneurysms or abnormal arteriovenous shunting. RIGHT COMMON CAROTID ARTERY INJECTION (cranial): DSA images of the right anterior intracranial circulation demonstrate normal caliber of the petrous, cavernous and supraclinoid segments of the internal carotid artery. The cavernous segment has a moderately tortuous course. The ophthalmic artery origin, course and caliber are normal appearing. There is a -type posterior communicating artery. The anterior choroidal artery is normal appearing. There is minimal atherosclerotic plaque irregularity and narrowing of the M1. The A1 segment is normal-appearing. There are patchy areas of focal and short segmental mild and moderate narrowings throughout the anterior, middle and posterior cerebral artery territories on the right likely compatible with underlying intracranial atherosclerotic disease.. There is no filling across the anterior communicating artery to the contralateral anterior cerebral artery. The visualized portions of the external carotid artery and its respective branches are normal appearing. Capillary and venous phases are normal appearing. No aneurysm or abnormal arteriovenous shunting is identified. LEFT COMMON CAROTID ARTERY INJECTION (cervical): DSA images of the left anterior cervical circulation demonstrate normal course and caliber of the distal common carotid artery. The bifurcation is at C3-4. There is mild atherosclerotic plaque involvement of the carotid bifurcation and carotid bulb with mild ulceration of the latter yet without stenosis by NASCET. The cervical ICA has mildly tortuous course and normal caliber. There is no evidence of dissection, aneurysms or abnormal arteriovenous shunting. LEFT COMMON CAROTID ARTERY INJECTION (cranial): DSA images of the left anterior intracranial circulation demonstrate normal caliber of the petrous, cavernous and supraclinoid segments of the internal carotid artery. The cavernous segment has a moderately tortuous course. The ophthalmic artery origin, course and caliber are normal appearing. There is a large sized posterior communicating artery that opacifies the ipsilateral posterior cerebral artery. The anterior choroidal artery is normal appearing. There is mild to moderate focal narrowing of the middle cerebral artery bifurcation. The A1 segment is normal-appearing. There are patchy areas of focal and short segmental mild and moderate narrowings throughout the posterior cerebral artery territory with minimal to mild involvement of the anterior middle cerebral artery territories on the left likely compatible with underlying intracranial atherosclerotic disease.. There is no filling across the anterior communicating artery to the contralateral anterior cerebral artery. The visualized portions of the external carotid artery and its respective branches are normal appearing. Capillary and venous phases are normal appearing. No aneurysm or abnormal arteriovenous shunting is identified. RIGHT SUBCLAVIAN ARTERY: IADSA images of the subclavian artery demonstrates normal course of the proximal portion artery with minimal to mild atherosclerotic plaque narrowing. The vertebral artery origin is patent. The visualized portions of the V2 and V3 segments are patent. LEFT SUBCLAVIAN Artery images of the subclavian artery demonstrates normal course of the proximal portion artery with mild atherosclerotic plaque irregular narrowing. The vertebral artery origin is patent. The visualized portions of the V2 and V3 segments are patent. LEFT VERTEBRAL ARTERY INJECTION: DSA images of the posterior intracranial circulation demonstrate normal course and caliber of the distal left vertebral artery. The vertebrobasilar confluence is normal appearing. There is no reflux of contrast down the right vertebral artery. Just beyond the origin of the anterior-inferior cerebellar arteries, there is a 10 mm length circumferential mildly irregular plaque causing moderate stenosis of the basilar artery yet without significant flow limitation. The remainder of the basilar stem and apex are normal appearing. There is an extradural left posterior inferior cerebellar artery which demonstrates scattered areas of mild and moderate plaque narrowing. Bilateral anterior inferior cerebellar arteries demonstrate scattered areas of mild narrowing, however, there is moderate to severe focal stenosis of the right anterior-inferior cerebellar artery origin. Bilateral superior cerebellar arteries demonstrate scattered areas of mild narrowing. The right posterior cerebral artery does not opacify owing to its -type. Again noted are scattered patchy areas of mild to moderate narrowings throughout the left posterior cerebral artery territory. The capillary and venous phases are normal appearing. No aneurysm or abnormal arteriovenous shunting is identified. RIGHT FEMORAL ARTERY: DSA images of the right common femoral artery demonstrate normal course and caliber of the vessel. The sheath is placed above the bifurcation. There is no evidence of dissection, pseudoaneurysm or abnormal arteriovenous shunting. IMPRESSION: Moderate segmental stenosis of the basilar artery Intracranial atherosclerotic disease of the anterior and posterior circulations as detailed above. Kendy Herrera M.D 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: [employer] Transcribe Date/Time: Aug 22 2019 2:43P Dictated by : KNEDY HERRERA MD This examination was interpreted and the report reviewed and electronically signed by: KENDY HERRERA MD on Aug 22 2019 3:35PM EST Normal [facility] NIL NON SELECT NEURO W/WO AR Johana 08-22-2019 NIL NON SELECT NEURO W/WO ARCH * * *Final Report* * * DATE OF EXAM: Aug 22 2019 2:11PM [id number] - NIL NON SELECT NEURO W/WO ARCH / PROCEDURE REASON: DCA TIA * * * * Physician Interpretation * * * * Diagnostic cerebral angiogram CLINICAL HISTORY: This patient is a 63 year-old Male who presented with transient ischemic attack in the setting of basilar artery stenosis. A diagnostic cerebral angiogram was requested to further define clinical care. PROCEDURE: Diagnostic cerebral angiogram. TIME OUT TIME: 1317 PROCEDURE START TIME: 1320 PROCEDURE END TIME: 1400 ATTENDING: Kendy Herrera M.D BUHR DRESSER : None, The procedure was performed by the attending without an medical office receptionist assistant. The attending performed the following procedural activities: Diagnostic cerebral angiogram. ANGIOGRAPHY MATERIALS: Diagnostic catheter: 5 German Vert Catheter , 5 German pigtail catheter Guidewire: 0.035 inch angled tapered Glidewire. Fluoroscopic Radiation Summary: Plane A, Air Kerma: 889.0 mGy Plane B, Air Kerma: 488.0 mGy Dose Area Product (DAP): 0.0 mGy*cm2 Fluoro time: 11:06 min: sec arterial: 160 ml of OMNIPAQUE 300 ANESTHESIA: No sedation was administered. Continuous monitoring by a dedicated nurse was performed. Pulsed oximetry, cardiopulmonary monitoring and electrocardiography was performed throughout the procedure. Intra-service time: 45 minutes. Patient monitoring: I personally supervised and directed an independent trained observer who assisted in monitoring the patient?s level of consciousness and physiological status throughout the procedure. TECHNIQUE: After homero discussion of the risks and benefits of diagnostic cerebral angiography, informed consent was obtained. The patient was brought to the angiography suite and placed in supine position. After hemodynamic monitoring was established, conscious sedation was administered by our nursing staff. The right groin was prepped and draped in the usual standard fashion, 1% lidocaine was used for local anesthetic. After fluoroscopic localization of the right femoral head, vascular access was obtained in the right common femoral artery utilizing a 4 German micropuncture set. A 5 German sheath was inserted and connected to heparinized saline flush. A 5F pigtail catheter was advanced over a PTFE wire to the ascending aorta and the wire removed. Using a power injection and views over the chest, angiographic imaging of the aortic arch was performed. The diagnostic catheter and wire were then fluoroscopically advanced for selective catheterization of the following vessels: Brachiocephalic vascular family: Right common carotid artery, cervical views. Right common carotid artery, intracranial views. Standard AP, lateral and oblique views. Right subclavian artery, chest and cervical views. Left carotid vascular family: Left common carotid artery, cervical views. Left common carotid artery, intracranial views. Standard AP, lateral and oblique views. Left subclavian vascular family: Left subclavian artery, chest and cervical views. Left vertebral artery, intracranial views. Standard AP, lateral, oblique views. Angiographic imaging was performed at each selected vessel with views as described above. After no further views and images were determined to be necessary, the procedure was terminated. All catheters and wires were removed from the patient. Hemostasis at the right groin was obtained by [employer]. The patient was transferred to their prior bed space in stable condition without immediate complication. FINDINGS: AORTIC ARCH: DSA images of the aortic arch demonstrate a normal configuration of the arch and great vessels. The arch is class I. No significant atherosclerotic involvement of the aortic arch. There is minimal to mild atherosclerotic plaque involvement of the proximal bilateral subclavian arteries. . The origins of the major daughter branches are patent. RIGHT COMMON CAROTID ARTERY INJECTION (cervical): DSA images of the right anterior cervical circulation demonstrate normal course and caliber of the distal common carotid artery. The bifurcation is at C3. There is minimal atherosclerotic plaque irregularity of the carotid bifurcation and carotid bulb without stenosis by NASCET. The cervical ICA has a mildly tortuous course and normal caliber. There is no evidence of dissection, aneurysms or abnormal arteriovenous shunting. RIGHT COMMON CAROTID ARTERY INJECTION (cranial): DSA images of the right anterior intracranial circulation demonstrate normal caliber of the petrous, cavernous and supraclinoid segments of the internal carotid artery. The cavernous segment has a moderately tortuous course. The ophthalmic artery origin, course and caliber are normal appearing. There is a -type posterior communicating artery. The anterior choroidal artery is normal appearing. There is minimal atherosclerotic plaque irregularity and narrowing of the M1. The A1 segment is normal-appearing. There are patchy areas of focal and short segmental mild and moderate narrowings throughout the anterior, middle and posterior cerebral artery territories on the right likely compatible with underlying intracranial atherosclerotic disease.. There is no filling across the anterior communicating artery to the contralateral anterior cerebral artery. The visualized portions of the external carotid artery and its respective branches are normal appearing. Capillary and venous phases are normal appearing. No aneurysm or abnormal arteriovenous shunting is identified. LEFT COMMON CAROTID ARTERY INJECTION (cervical): DSA images of the left anterior cervical circulation demonstrate normal course and caliber of the distal common carotid artery. The bifurcation is at C3-4. There is mild atherosclerotic plaque involvement of the carotid bifurcation and carotid bulb with mild ulceration of the latter yet without stenosis by NASCET. The cervical ICA has mildly tortuous course and normal caliber. There is no evidence of dissection, aneurysms or abnormal arteriovenous shunting. LEFT COMMON CAROTID ARTERY INJECTION (cranial): DSA images of the left anterior intracranial circulation demonstrate normal caliber of the petrous, cavernous and supraclinoid segments of the internal carotid artery. The cavernous segment has a moderately tortuous course. The ophthalmic artery origin, course and caliber are normal appearing. There is a large sized posterior communicating artery that opacifies the ipsilateral posterior cerebral artery. The anterior choroidal artery is normal appearing. There is mild to moderate focal narrowing of the middle cerebral artery bifurcation. The A1 segment is normal-appearing. There are patchy areas of focal and short segmental mild and moderate narrowings throughout the posterior cerebral artery territory with minimal to mild involvement of the anterior middle cerebral artery territories on the left likely compatible with underlying intracranial atherosclerotic disease.. There is no filling across the anterior communicating artery to the contralateral anterior cerebral artery. The visualized portions of the external carotid artery and its respective branches are normal appearing. Capillary and venous phases are normal appearing. No aneurysm or abnormal arteriovenous shunting is identified. RIGHT SUBCLAVIAN ARTERY: IADSA images of the subclavian artery demonstrates normal course of the proximal portion artery with minimal to mild atherosclerotic plaque narrowing. The vertebral artery origin is patent. The visualized portions of the V2 and V3 segments are patent. LEFT SUBCLAVIAN Artery images of the subclavian artery demonstrates normal course of the proximal portion artery with mild atherosclerotic plaque irregular narrowing. The vertebral artery origin is patent. The visualized portions of the V2 and V3 segments are patent. LEFT VERTEBRAL ARTERY INJECTION: DSA images of the posterior intracranial circulation demonstrate normal course and caliber of the distal left vertebral artery. The vertebrobasilar confluence is normal appearing. There is no reflux of contrast down the right vertebral artery. Just beyond the origin of the anterior-inferior cerebellar arteries, there is a 10 mm length circumferential mildly irregular plaque causing moderate stenosis of the basilar artery yet without significant flow limitation. The remainder of the basilar stem and apex are normal appearing. There is an extradural left posterior inferior cerebellar artery which demonstrates scattered areas of mild and moderate plaque narrowing. Bilateral anterior inferior cerebellar arteries demonstrate scattered areas of mild narrowing, however, there is moderate to severe focal stenosis of the right anterior-inferior cerebellar artery origin. Bilateral superior cerebellar arteries demonstrate scattered areas of mild narrowing. The right posterior cerebral artery does not opacify owing to its -type. Again noted are scattered patchy areas of mild to moderate narrowings throughout the left posterior cerebral artery territory. The capillary and venous phases are normal appearing. No aneurysm or abnormal arteriovenous shunting is identified. RIGHT FEMORAL ARTERY: DSA images of the right common femoral artery demonstrate normal course and caliber of the vessel. The sheath is placed above the bifurcation. There is no evidence of dissection, pseudoaneurysm or abnormal arteriovenous shunting. IMPRESSION: Moderate segmental stenosis of the basilar artery Intracranial atherosclerotic disease of the anterior and posterior circulations as detailed above. Kendy Herrera M.D 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: OSM[employer] Transcribe Date/Time: Aug 22 2019 2:43P Dictated by : KENDY HERRERA MD This examination was interpreted and the report reviewed and electronically signed by: KENDY HERRERA MD on Aug 22 2019 3:35PM EST Normal [facility] NIL UNI VERT-SC/INOM INJECTo n 08-22-2019 NIL UNI VERT-SC/INOM INJECT * * *Final Report* * * DATE OF EXAM: Aug 22 2019 2:11PM [id number] - NIL UNI VERT-SC/INOM INJECT - RIGHT / PROCEDURE REASON: DCA TIA * * * * Physician Interpretation * * * * Diagnostic cerebral angiogram CLINICAL HISTORY: This patient is a 63 year-old Male who presented with transient ischemic attack in the setting of basilar artery stenosis. A diagnostic cerebral angiogram was requested to further define clinical care. PROCEDURE: Diagnostic cerebral angiogram. TIME OUT TIME: 1316 PROCEDURE START TIME: 1320 PROCEDURE END TIME: 1400 ATTENDING: Kendy Herrera M.D BUHR DRESSER : None, The procedure was performed by the attending without an medical office receptionist assistant. The attending performed the following procedural activities: Diagnostic cerebral angiogram. ANGIOGRAPHY MATERIALS: Diagnostic catheter: 5 German Vert Catheter , 5 German pigtail catheter Guidewire: 0.035 inch angled tapered Glidewire. Fluoroscopic Radiation Summary: Plane A, Air Kerma: 889.0 mGy Plane B, Air Kerma: 488.0 mGy Dose Area Product (DAP): 0.0 mGy*cm2 Fluoro time: 11:06 min: sec arterial: 160 ml of OMNIPAQUE 300 ANESTHESIA: No sedation was administered. Continuous monitoring by a dedicated nurse was performed. Pulsed oximetry, cardiopulmonary monitoring and electrocardiography was performed throughout the procedure. Intra-service time: 45 minutes. Patient monitoring: I personally supervised and directed an independent trained observer who assisted in monitoring the patient?s level of consciousness and physiological status throughout the procedure. TECHNIQUE: After homero discussion of the risks and benefits of diagnostic cerebral angiography, informed consent was obtained. The patient was brought to the angiography suite and placed in supine position. After hemodynamic monitoring was established, conscious sedation was administered by our nursing staff. The right groin was prepped and draped in the usual standard fashion, 1% lidocaine was used for local anesthetic. After fluoroscopic localization of the right femoral head, vascular access was obtained in the right common femoral artery utilizing a 4 German micropuncture set. A 5 German sheath was inserted and connected to heparinized saline flush. A 5F pigtail catheter was advanced over a PTFE wire to the ascending aorta and the wire removed. Using a power injection and views over the chest, angiographic imaging of the aortic arch was performed. The diagnostic catheter and wire were then fluoroscopically advanced for selective catheterization of the following vessels: Brachiocephalic vascular family: Right common carotid artery, cervical views. Right common carotid artery, intracranial views. Standard AP, lateral and oblique views. Right subclavian artery, chest and cervical views. Left carotid vascular family: Left common carotid artery, cervical views. Left common carotid artery, intracranial views. Standard AP, lateral and oblique views. Left subclavian vascular family: Left subclavian artery, chest and cervical views. Left vertebral artery, intracranial views. Standard AP, lateral, oblique views. Angiographic imaging was performed at each selected vessel with views as described above. After no further views and images were determined to be necessary, the procedure was terminated. All catheters and wires were removed from the patient. Hemostasis at the right groin was obtained by [employer]. The patient was transferred to their prior bed space in stable condition without immediate complication. FINDINGS: AORTIC ARCH: DSA images of the aortic arch demonstrate a normal configuration of the arch and great vessels. The arch is class I. No significant atherosclerotic involvement of the aortic arch. There is minimal to mild atherosclerotic plaque involvement of the proximal bilateral subclavian arteries. . The origins of the major daughter branches are patent. RIGHT COMMON CAROTID ARTERY INJECTION (cervical): DSA images of the right anterior cervical circulation demonstrate normal course and caliber of the distal common carotid artery. The bifurcation is at C3. There is minimal atherosclerotic plaque irregularity of the carotid bifurcation and carotid bulb without stenosis by NASCET. The cervical ICA has a mildly tortuous course and normal caliber. There is no evidence of dissection, aneurysms or abnormal arteriovenous shunting. RIGHT COMMON CAROTID ARTERY INJECTION (cranial): DSA images of the right anterior intracranial circulation demonstrate normal caliber of the petrous, cavernous and supraclinoid segments of the internal carotid artery. The cavernous segment has a moderately tortuous course. The ophthalmic artery origin, course and caliber are normal appearing. There is a -type posterior communicating artery. The anterior choroidal artery is normal appearing. There is minimal atherosclerotic plaque irregularity and narrowing of the M1. The A1 segment is normal-appearing. There are patchy areas of focal and short segmental mild and moderate narrowings throughout the anterior, middle and posterior cerebral artery territories on the right likely compatible with underlying intracranial atherosclerotic disease.. There is no filling across the anterior communicating artery to the contralateral anterior cerebral artery. The visualized portions of the external carotid artery and its respective branches are normal appearing. Capillary and venous phases are normal appearing. No aneurysm or abnormal arteriovenous shunting is identified. LEFT COMMON CAROTID ARTERY INJECTION (cervical): DSA images of the left anterior cervical circulation demonstrate normal course and caliber of the distal common carotid artery. The bifurcation is at C3-4. There is mild atherosclerotic plaque involvement of the carotid bifurcation and carotid bulb with mild ulceration of the latter yet without stenosis by NASCET. The cervical ICA has mildly tortuous course and normal caliber. There is no evidence of dissection, aneurysms or abnormal arteriovenous shunting. LEFT COMMON CAROTID ARTERY INJECTION (cranial): DSA images of the left anterior intracranial circulation demonstrate normal caliber of the petrous, cavernous and supraclinoid segments of the internal carotid artery. The cavernous segment has a moderately tortuous course. The ophthalmic artery origin, course and caliber are normal appearing. There is a large sized posterior communicating artery that opacifies the ipsilateral posterior cerebral artery. The anterior choroidal artery is normal appearing. There is mild to moderate focal narrowing of the middle cerebral artery bifurcation. The A1 segment is normal-appearing. There are patchy areas of focal and short segmental mild and moderate narrowings throughout the posterior cerebral artery territory with minimal to mild involvement of the anterior middle cerebral artery territories on the left likely compatible with underlying intracranial atherosclerotic disease.. There is no filling across the anterior communicating artery to the contralateral anterior cerebral artery. The visualized portions of the external carotid artery and its respective branches are normal appearing. Capillary and venous phases are normal appearing. No aneurysm or abnormal arteriovenous shunting is identified. RIGHT SUBCLAVIAN ARTERY: IADSA images of the subclavian artery demonstrates normal course of the proximal portion artery with minimal to mild atherosclerotic plaque narrowing. The vertebral artery origin is patent. The visualized portions of the V2 and V3 segments are patent. LEFT SUBCLAVIAN Artery images of the subclavian artery demonstrates normal course of the proximal portion artery with mild atherosclerotic plaque irregular narrowing. The vertebral artery origin is patent. The visualized portions of the V2 and V3 segments are patent. LEFT VERTEBRAL ARTERY INJECTION: DSA images of the posterior intracranial circulation demonstrate normal course and caliber of the distal left vertebral artery. The vertebrobasilar confluence is normal appearing. There is no reflux of contrast down the right vertebral artery. Just beyond the origin of the anterior-inferior cerebellar arteries, there is a 10 mm length circumferential mildly irregular plaque causing moderate stenosis of the basilar artery yet without significant flow limitation. The remainder of the basilar stem and apex are normal appearing. There is an extradural left posterior inferior cerebellar artery which demonstrates scattered areas of mild and moderate plaque narrowing. Bilateral anterior inferior cerebellar arteries demonstrate scattered areas of mild narrowing, however, there is moderate to severe focal stenosis of the right anterior-inferior cerebellar artery origin. Bilateral superior cerebellar arteries demonstrate scattered areas of mild narrowing. The right posterior cerebral artery does not opacify owing to its -type. Again noted are scattered patchy areas of mild to moderate narrowings throughout the left posterior cerebral artery territory. The capillary and venous phases are normal appearing. No aneurysm or abnormal arteriovenous shunting is identified. RIGHT FEMORAL ARTERY: DSA images of the right common femoral artery demonstrate normal course and caliber of the vessel. The sheath is placed above the bifurcation. There is no evidence of dissection, pseudoaneurysm or abnormal arteriovenous shunting. IMPRESSION: Moderate segmental stenosis of the basilar artery Intracranial atherosclerotic disease of the anterior and posterior circulations as detailed above. Kendy Herrera M.D 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: OSMANY Transcribe Date/Time: Aug 22 2019 2:43P Dictated by : KENDY HERRERA MD This examination was interpreted and the report reviewed and electronically signed by: KENDY HERRERA MD on Aug 22 2019 3:35PM EST Normal [facility] NIL VERT UNIon 08-22-2019 NIL VERT UNI * * *Final Report* * * DATE OF EXAM: Aug 22 2019 2:11PM A6A 1026 - NIL VERT UNI - LEFT / PROCEDURE REASON: DCA TIA * * * * Physician Interpretation * * * * Diagnostic cerebral angiogram CLINICAL HISTORY: This patient is a 63 year-old Male who presented with transient ischemic attack in the setting of basilar artery stenosis. A diagnostic cerebral angiogram was requested to further define clinical care. PROCEDURE: Diagnostic cerebral angiogram. TIME OUT TIME: 1317 PROCEDURE START TIME: 1320 PROCEDURE END TIME: 1400 ATTENDING: Kendy Herrera M.D BUHR DRESSER : None, The procedure was performed by the attending without an medical office receptionist assistant. The attending performed the following procedural activities: Diagnostic cerebral angiogram. ANGIOGRAPHY MATERIALS: Diagnostic catheter: 5 German Vert Catheter , 5 German pigtail catheter Guidewire: 0.035 inch angled tapered Glidewire. Fluoroscopic Radiation Summary: Plane A, Air Kerma: 889.0 mGy Plane B, Air Kerma: 488.0 mGy Dose Area Product (DAP): 0.0 mGy*cm2 Fluoro time: 11:06 min: sec arterial: 160 ml of OMNIPAQUE 300 ANESTHESIA: No sedation was administered. Continuous monitoring by a dedicated nurse was performed. Pulsed oximetry, cardiopulmonary monitoring and electrocardiography was performed throughout the procedure. Intra-service time: 45 minutes. Patient monitoring: I personally supervised and directed an independent trained observer who assisted in monitoring the patient?s level of consciousness and physiological status throughout the procedure. TECHNIQUE: After homero discussion of the risks and benefits of diagnostic cerebral angiography, informed consent was obtained. The patient was brought to the angiography suite and placed in supine position. After hemodynamic monitoring was established, conscious sedation was administered by our nursing staff. The right groin was prepped and draped in the usual standard fashion, 1% lidocaine was used for local anesthetic. After fluoroscopic localization of the right femoral head, vascular access was obtained in the right common femoral artery utilizing a 4 German micropuncture set. A 5 German sheath was inserted and connected to heparinized saline flush. A 5F pigtail catheter was advanced over a PTFE wire to the ascending aorta and the wire removed. Using a power injection and views over the chest, angiographic imaging of the aortic arch was performed. The diagnostic catheter and wire were then fluoroscopically advanced for selective catheterization of the following vessels: Brachiocephalic vascular family: Right common carotid artery, cervical views. Right common carotid artery, intracranial views. Standard AP, lateral and oblique views. Right subclavian artery, chest and cervical views. Left carotid vascular family: Left common carotid artery, cervical views. Left common carotid artery, intracranial views. Standard AP, lateral and oblique views. Left subclavian vascular family: Left subclavian artery, chest and cervical views. Left vertebral artery, intracranial views. Standard AP, lateral, oblique views. Angiographic imaging was performed at each selected vessel with views as described above. After no further views and images were determined to be necessary, the procedure was terminated. All catheters and wires were removed from the patient. Hemostasis at the right groin was obtained by [employer]. The patient was transferred to their prior bed space in stable condition without immediate complication. FINDINGS: AORTIC ARCH: DSA images of the aortic arch demonstrate a normal configuration of the arch and great vessels. The arch is class I. No significant atherosclerotic involvement of the aortic arch. There is minimal to mild atherosclerotic plaque involvement of the proximal bilateral subclavian arteries. . The origins of the major daughter branches are patent. RIGHT COMMON CAROTID ARTERY INJECTION (cervical): DSA images of the right anterior cervical circulation demonstrate normal course and caliber of the distal common carotid artery. The bifurcation is at C3. There is minimal atherosclerotic plaque irregularity of the carotid bifurcation and carotid bulb without stenosis by NASCET. The cervical ICA has a mildly tortuous course and normal caliber. There is no evidence of dissection, aneurysms or abnormal arteriovenous shunting. RIGHT COMMON CAROTID ARTERY INJECTION (cranial): DSA images of the right anterior intracranial circulation demonstrate normal caliber of the petrous, cavernous and supraclinoid segments of the internal carotid artery. The cavernous segment has a moderately tortuous course. The ophthalmic artery origin, course and caliber are normal appearing. There is a -type posterior communicating artery. The anterior choroidal artery is normal appearing. There is minimal atherosclerotic plaque irregularity and narrowing of the M1. The A1 segment is normal-appearing. There are patchy areas of focal and short segmental mild and moderate narrowings throughout the anterior, middle and posterior cerebral artery territories on the right likely compatible with underlying intracranial atherosclerotic disease.. There is no filling across the anterior communicating artery to the contralateral anterior cerebral artery. The visualized portions of the external carotid artery and its respective branches are normal appearing. Capillary and venous phases are normal appearing. No aneurysm or abnormal arteriovenous shunting is identified. LEFT COMMON CAROTID ARTERY INJECTION (cervical): DSA images of the left anterior cervical circulation demonstrate normal course and caliber of the distal common carotid artery. The bifurcation is at C3-4. There is mild atherosclerotic plaque involvement of the carotid bifurcation and carotid bulb with mild ulceration of the latter yet without stenosis by NASCET. The cervical ICA has mildly tortuous course and normal caliber. There is no evidence of dissection, aneurysms or abnormal arteriovenous shunting. LEFT COMMON CAROTID ARTERY INJECTION (cranial): DSA images of the left anterior intracranial circulation demonstrate normal caliber of the petrous, cavernous and supraclinoid segments of the internal carotid artery. The cavernous segment has a moderately tortuous course. The ophthalmic artery origin, course and caliber are normal appearing. There is a large sized posterior communicating artery that opacifies the ipsilateral posterior cerebral artery. The anterior choroidal artery is normal appearing. There is mild to moderate focal narrowing of the middle cerebral artery bifurcation. The A1 segment is normal-appearing. There are patchy areas of focal and short segmental mild and moderate narrowings throughout the posterior cerebral artery territory with minimal to mild involvement of the anterior middle cerebral artery territories on the left likely compatible with underlying intracranial atherosclerotic disease.. There is no filling across the anterior communicating artery to the contralateral anterior cerebral artery. The visualized portions of the external carotid artery and its respective branches are normal appearing. Capillary and venous phases are normal appearing. No aneurysm or abnormal arteriovenous shunting is identified. RIGHT SUBCLAVIAN ARTERY: IADSA images of the subclavian artery demonstrates normal course of the proximal portion artery with minimal to mild atherosclerotic plaque narrowing. The vertebral artery origin is patent. The visualized portions of the V2 and V3 segments are patent. LEFT SUBCLAVIAN Artery images of the subclavian artery demonstrates normal course of the proximal portion artery with mild atherosclerotic plaque irregular narrowing. The vertebral artery origin is patent. The visualized portions of the V2 and V3 segments are patent. LEFT VERTEBRAL ARTERY INJECTION: DSA images of the posterior intracranial circulation demonstrate normal course and caliber of the distal left vertebral artery. The vertebrobasilar confluence is normal appearing. There is no reflux of contrast down the right vertebral artery. Just beyond the origin of the anterior-inferior cerebellar arteries, there is a 10 mm length circumferential mildly irregular plaque causing moderate stenosis of the basilar artery yet without significant flow limitation. The remainder of the basilar stem and apex are normal appearing. There is an extradural left posterior inferior cerebellar artery which demonstrates scattered areas of mild and moderate plaque narrowing. Bilateral anterior inferior cerebellar arteries demonstrate scattered areas of mild narrowing, however, there is moderate to severe focal stenosis of the right anterior-inferior cerebellar artery origin. Bilateral superior cerebellar arteries demonstrate scattered areas of mild narrowing. The right posterior cerebral artery does not opacify owing to its -type. Again noted are scattered patchy areas of mild to moderate narrowings throughout the left posterior cerebral artery territory. The capillary and venous phases are normal appearing. No aneurysm or abnormal arteriovenous shunting is identified. RIGHT FEMORAL ARTERY: DSA images of the right common femoral artery demonstrate normal course and caliber of the vessel. The sheath is placed above the bifurcation. There is no evidence of dissection, pseudoaneurysm or abnormal arteriovenous shunting. IMPRESSION: Moderate segmental stenosis of the basilar artery Intracranial atherosclerotic disease of the anterior and posterior circulations as detailed above. Kendy Herrera M.D 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: P[employer] Transcribe Date/Time: Aug 22 2019 2:43P Dictated by : KENDY HERRERA MD This examination was interpreted and the report reviewed and electronically signed by: KENDY HERRERA MD on Aug 22 2019 3:35PM EST [facility] NURSING PROGon 08-22-2019 Cholesterol [Mass/Vol] HNO ID: [id number] Author: Espinoza PatrickRn) BERKLEY Espinoza Service: ? Author Type: Registered Nurse Type: Nursing Progress Note Filed: 08/22/2019 6:05 PM Note Text: Nursing Progress Note Patient Name: Lou Julien Patient Location: [id number] Daily Note: PT sister Suki Lerma would like to be called before further intervention is performed so she can come in. [phone]. This note was completed by: Espinoza Espinoza RN [facility] PLAN OF CAREon 08-22-2019 PLAN OF CARE HNO ID: [id number] Author: Kody Benitez Service: Pharmacy Author Type: Pharmacist Type: Plan of Care Filed: 08/22/2019 12:35 PM Note Text: MEDICATION HISTORY AND MEDICATION RECONCILIATION Patient Name:Maria A Julien : 1955 Source of history:Patient: Reliability of source: Unreliable medication historian. Patient uses compliance packs from [facility], Pharmacy records: [facility] in [place], [facility] records and [facility] Medication Nonadherence Identified: No barriers noted The above information represents the best possible medication history: Yes Reconciliation completed? 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 Last compliance pack dispensed on 07/26/19 and new one to start tomorrow. Packets contain:ASA, amlodipine, metformin ER, metoprolol XL, MVI, clopidogrel and lisinopril. They also filled insulin glargine and lispro recently and patient was able to tell me how he takes his insulins. Multiple supplies were left on patient list. [id number] Medication List Adjustments: Medications Removed: ? Gabapentin (no fill since 03/2019 ? Dicyclomine (no fills and patient did not recognize) ? Naproxen (old Rx) ? Ranitidine (old Rx) ? 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 Yes insulin lispro (HUMALOG KWIKPEN INSULIN) 100 unit/mL inpn Inject 7 Units subcutaneously three times daily before meals. Yes atorvastatin (LIPITOR) 80 mg tablet Take 1 tablet by mouth every morning. 08/21/2019 at Unknown time Yes lisinopril (ZESTRIL) 40 mg tablet Take 1 tablet by mouth every morning. Yes ibuprofen (MOTRIN) 800 mg tablet Take 1 tablet by mouth every 8 hours as needed for Pain. Take with food. Do NOT take with other NSAIDs Yes melatonin 3 mg tablet Take 1 tablet by mouth daily at bedtime. Yes triamcinolone (KENALOG) 0.025 % lotn Apply 1 application to affected area twice daily. To bilateral legs Yes clopidogrel (PLAVIX) 75 mg tablet Take 1 tablet by mouth once daily. Started during hospitalization for stroke in February 2019 Yes metFORMIN ER (GLUCOPHAGE XR) 500 mg 24 hr tablet Take 2 tablets by mouth twice daily. 08/21/2019 at Unknown time Yes multivitamin (DAILY-YOUSUF) tablet Take 1 tablet by mouth once daily. 08/21/2019 at Unknown time Yes aspirin, enteric coated (ADULT LOW DOSE ASPIRIN) 81 mg EC tablet Take 1 tablet by mouth every morning. Yes metoprolol succinate ER (TOPROL XL) 100 mg Tb24 Take 1 tablet by mouth every morning. 08/21/2019 at Unknown time Yes amLODIPine (NORVASC) 5 mg tablet Take 1 tablet by mouth every morning. 08/21/2019 at Unknown time Yes bacitracin zinc 500 unit/gram ointment APPLY TO LOWER RIGHT LEG THREE TIMES DAILY. Insulin [place], Disposable, (BD ULTRA-FINE LUIS PEN NEEDLE) 32 gauge x 5/32 ndle Use one needle daily for each insulin dose, 4 x's daily. Type 2 DM, insulin dependent. glucose (DEX4 GLUCOSE) 4 gram chewable tablet Take 4 tablets by mouth as needed. blood sugar diagnostic (BLOOD GLUCOSE TEST) test strip Test blood sugar(s) one times daily. Dx: Type 2 DM - Uncontrolled E11.65 Insulin: Yes Lancets lancets Test blood sugar(s) one times daily. Dx: Type 2 DM - Uncontrolled E11.65 Insulin: Yes polyethylene glycol 3350 (MIRALAX, GLYCOLAX) 17 gram/dose powder Take 17 g by mouth once daily. Drink a mix of 1 scoop in 8oz of water/beverage once daily as needed for constipation. Patient not taking: Reported on 06/13/2019 alcohol swabs (ALCOHOL PREP PADS) padm Apply 1 application to affected area once daily with insulin injection Lancing Device (LANCING DEVICE WITH LANCETS) [facility] Use to check blood sugars as directed white petrolatum-mineral oil (EUCERIN) cream Apply 1 application to affected area twice daily. Patient not taking: Reported on 07/25/2019 COMPOUNDED PRESCRIPTION Diabetic shoes: DIABETES MELLITUS- uncontrolled with neuropathy Syringe with Needle, Safety (BD INTEGRA) 3 mL 22 x 1 1/2 syrg Uses twice a month for testosterone injections Kody Benitez, Elly August 22, 2019 12:13 PM [facility] PROGRESSon 08-22-2019 PROGRESS HNO ID: [id number] Author: Juan Puri DO Service: Hospital Medicine Author Type: Resident Type: Progress Notes Filed: 08/22/2019 1:52 PM Note Text: -- Attestation signed by Robin Barker at 08/23/2019 1:47 PM House Medicine Service Attending Attestation I personally saw and examined the patient on 08/22/19. I reviewed the resident?s note. I agree with the resident?s assessment and plan unless otherwise noted. Robin Barker MD -- SERVICE DATE: 08/22/2019 SERVICE TIME: 1:52 PM HOUSE MEDICINE SERVICE PROGRESS NOTE SERVICE DATE: August 22, 2019 SERVICE TIME: 7:03 AM NIGHT AND WEEKEND COVERAGE: 1044 BRIEF HPI: 63 year old male with PMH of previous CVA on ASA and plavix in 02/2019, T2DM, chronic paraoxysomal supraventrica tachycardia, h/o complete heart block s/p pacemaker in 02/2019 , essential HTN , hyperlipidemia Presented to [place] ED 08/20 with left sided weakness and slurring of speech, starting 2 hours prior to arrival.patient reports that he a fall when he was getting groceries, he was lightheaded prior but no symptoms after the fall. Stroke team was called in the ER . He was not thought to be a tPA candidiate . Initial CT head showed no acute changes . MRI brain without contrast did not show any recent intracranial ischemia .. 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 MRA neck showed no right carotid stenosis, mild (40%) left carotis stenosis Off note previous stroke in 2019 was a lacunar infarct in the right thalamus . He does not report any fevers/Chills/ Chest pain or SOB . His symptoms have resolved and no residual deficits reported by the patient . He mentions that he has been compliant with all his medications as well. INTERVAL EVENTS: Condition: No Change Patient has no acute complaints. He states he feels about the same since his Emergency Department visit. He denies chest pain, shortness of breath. When inquired about his insulin regimen, he states he usually takes one shot in the morning that is marked 12 and another shot three times a day marked 5. However, he is unsure of what other medications he is supposed to be on. OBJECTIVE: Medications: Scheduled: atorvastatin, 80 mg, AT BEDTIME amLODIPine, 5 mg, DAILY aspirin, enteric coated, 81 mg, DAILY clopidogrel, 75 mg, DAILY enoxaparin, 40 mg, DAILY insulin glargine, 14 Units, AT BEDTIME insulin lispro, 7 Units, w MEALS insulin lispro, , w MEALS PRN: dextrose, 15 g, PRN Or glucagon, 1 mg, PRN Or dextrose 50% in water, 12.5 g, PRN Vital Signs: BP 182/85 Pulse 84 Temp (Src) 98.6 (Oral) Resp 16 Ht 5' 9 (1.75m) Wt 170 lb (77.1kg) SpO2 97% BMI 25.09 kg/(m2). O2 Therapy: Room Air Physical Exam: Physical Exam Constitutional: He is oriented to person, place, and time and well-developed, well-nourished, and in no distress. No distress. HENT: Head: Normocephalic and atraumatic. Eyes: Pupils are equal, round, and reactive to light. Neck: Normal range of motion. No tracheal deviation present. No thyromegaly present. Cardiovascular: Normal rate, regular rhythm, normal heart sounds and intact distal pulses. Exam reveals no gallop and no friction rub. No murmur heard. Pulmonary/Chest: Effort normal and breath sounds normal. No respiratory distress. He has no wheezes. He has no rales. He exhibits no tenderness. Abdominal: Soft. Bowel sounds are normal. He exhibits no distension and no mass. There is no abdominal tenderness. There is no rebound and no guarding. Musculoskeletal: Normal range of motion. General: No tenderness, deformity or edema. Neurological: He is alert and oriented to person, place, and time. Skin: Skin is warm and dry. No rash noted. He is not diaphoretic. No erythema. No pallor. Psychiatric: Memory normal. Withdrawn affect Lines, Drains, and Airways Line Peripheral 08/21/192200 Admission to Hospital Short Right Antecubital 20 Gauge less than 1 day Peripheral 08/21/192201 Admission to Hospital Short Right Wrist 20 Gauge less than 1 day Reviewed lines and needs to be continued: REASONS: Telemetry and Electrolyte replacement Labs: Recent Labs 08/22/19 0411 NA 142 K 3.6 CHLOR 110* CO2 25 BUN 26* CREAT 1.40* GLUC 238* ANION 11 CA 7.9* WBC 6.69 HB 9.5* HCT 29.2* PLT 244 Input / Output: 24 HR: No intake or output data in the 24 hours ending 08/22/19 0703 Routine blood work indicated for tomorrow on account of: active correction of / suspected new electrolyte abnormalities IMAGING: Chest X-ray [08/13/2019]: No acute pathology MICRO: No components found for: CULTURE Assessment AND Plan PLAN NOT FINAL UNTIL STAFFED WITH Robin Barker Lou Julien is a 63 y/o male who initially presented with dizziness and found to have TIA due to no acute pathology found on imaging. Neurosurgery consulted to evaluate for surgical intervention. PLAN FOR THE DAY: - Diabetes Education - Started Metoprolol 50mg for elevated BP - Continue to monitor sugars and will reevaluate glycemic control based on glucose checks - Ordered Iron Studies to evaluate for microcytic anemia - Continue monitoring sugars [Currrently on: Insulin Glargine 14U at bedtime + Lispro 7-7-7-0] - Neurology AND Neurosurgery onboard; appreciate recommendations AND management Active Hospital Problems as of 08/22/2019 Noted - Resolved Hospital Diabetes mellitus type 2, uncontrolled (HCC) 06/28/2010 - Present Current Assessment AND Plan Assessment: TYPE 2 DIABETES MELLITUS. Most recent Hba1c 10.3, prior was 9.1 PLAN: - Continue home regimen of lantus 14 units at bedtime and lispro 7 units with meals plus correctional sliding scale insulin - Will adjust based on accuchecks Essential hypertension, benign Unknown - Present Current Assessment AND Plan PLAN: Patient was being allowed permissive HTN for 24 hours prior to arrival - Restarted Metoprolol AND amlodipine AND Lipitor TIA (transient ischemic attack) 08/21/2019 - Present Current Assessment AND Plan - Patient presented with left sided weakness and slurring of speech , which have resolved - Ct and MRI brain were negative - MRA showed 80% stenosis of basilar artery - continue aspirin , Plavix ( home meds) , statin - neuro checks - Consult neurology as patient had symptoms while on aspirin and plavix - aspiration precautions Basilar artery stenosis 08/21/2019 - Present Current Assessment AND Plan PLAN: - 80% stenosis of the vertebral artery - Consulted neurosurgery for any possible intervention Medication and Non-Pharmacologic VTE Prophylaxis/Anticoagulants Anticoagulant AND Antiplatelet Medications (From admission, onward) Start Dose Route Frequency Ordered Stop 08/22/19 0900 [MAR Hold due to Transfer] aspirin, enteric coated 81 mg tab(s) (MAR Hold due to Transfer since [facility] 08/22/2019 at 1252. Reason: Hold Unreviewed Transfer Orders.) 81 mg ORAL DAILY 08/21/192047 -- 08/22/19 0900 [MAR Hold due to Transfer] clopidogrel 75 mg tab(s) (PLAVIX) (MAR Hold due to Transfer since [facility] 08/22/2019 at 1252. Reason: Hold Unreviewed Transfer Orders.) 75 mg ORAL DAILY 08/21/192047 -- 08/21/19 2100 [MAR Hold due to Transfer] enoxaparin 40 mg injection (LOVENOX) (Medical Risk Categories) (MAR Hold due to Transfer since [facility] 08/22/2019 at 1252. Reason: Hold Unreviewed Transfer Orders.) 40 mg SUBCUTANEOUS DAILY 08/21/192047 -- 08/21/192044 pneumatic compression stockings ([place] VTE Prophylaxis: VTE prophylaxis appropriate Plan of care discussed with: Provider, RN, Patient SIGNATURE: Juan Puri DO PATIENT NAME: Lou Julien DATE: August 22, 2019 TIME: 1:52 PM PAGER/CONTACT #: [phone] Normal [facility] Reticulocyte Counton 020 Absolute Reticulocyte 0.065 mil/cmm Normal 0.026 -0.09 5 [facility] Comment on above: Performed By: #### R ETC1 #### [address] [address] Immature Retic Fractions 11.8 % Normal 2.3-13.4 [facility] Comment on above: Performed By: #### R ETC1 #### [facility] [address] [place], [place] [address] Retic Hemoglobin Equivalent 31.4 pg Normal 27.9-38.4 [facility] Comment on above: Performed By: #### R ETC1 #### [facility] [address] [place], [place] [address] 1.9 % Normal 1.0-2.2 [facility] Comment on above: Performed By: #### R ETC1 #### [facility] [address] [place] [address] HOSPon 08-21-2019 HOSP Patient:Lou Julien MRN: Height:5' 9(1.753 m) Weight:170 lb (77.111 kg) Outpatient Medications as of 08/22/19: bacitracin zinc 500 unit/gram ointment insulin glargine (BASAGLAR KWIKPEN U-100 INSULIN) 100 unit/mL (3 mL) inpn insulin lispro (HUMALOG KWIKPEN INSULIN) 100 unit/mL inpn atorvastatin (LIPITOR) 80 mg tablet lisinopril (ZESTRIL) 40 mg tablet ibuprofen (MOTRIN) 800 mg tablet melatonin 3 mg tablet Insulin [place], Disposable, (BD ULTRA-FINE LUIS PEN NEEDLE) 32 gauge x 5/32 ndle glucose (DEX4 GLUCOSE) 4 gram chewable tablet blood sugar diagnostic (BLOOD GLUCOSE TEST) test strip Lancets lancets triamcinolone (KENALOG) 0.025 % lotn polyethylene glycol 3350 (MIRALAX, GLYCOLAX) 17 gram/dose powder alcohol swabs (ALCOHOL PREP PADS) padm clopidogrel (PLAVIX) 75 mg tablet metFORMIN ER (GLUCOPHAGE XR) 500 mg 24 hr tablet multivitamin (DAILY-YOUSUF) tablet aspirin, enteric coated (ADULT LOW DOSE ASPIRIN) 81 mg EC tablet metoprolol succinate ER (TOPROL XL) 100 mg Tb24 amLODIPine (NORVASC) 5 mg tablet Lancing Device (LANCING DEVICE WITH LANCETS) misc white petrolatum-mineral oil (EUCERIN) cream COMPOUNDED PRESCRIPTION Syringe with Needle, Safety (BD INTEGRA) 3 mL 22 x 1 1/2 syrg Admission/Clinic Administered Medications as of 08/22/19: metoprolol succinate ER 50 mg tab(s) (TOPROL XL) atorvastatin 80 mg tab(s) (LIPITOR) amLODIPine 5 mg tab(s) (NORVASC) aspirin, enteric coated 81 mg tab(s) clopidogrel 75 mg tab(s) (PLAVIX) enoxaparin 40 mg injection (LOVENOX) dextrose 40 % 15 g glucagon 1 mg injection (GLUCAGEN) dextrose 50% in water 25 mL syringe insulin glargine 14 Units pen (long acting) (LANTUS SOLOSTAR, BASAGLAR KWIKPEN) insulin lispro 7 Units pen (rapid acting) (HumaLOG KWIKPEN) insulin lispro pen (rapid acting) (HumaLOG KWIKPEN) Problem List: Pure hypercholesterolemia [E78.00] 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] Essential hypertension, benign [I10] Psoriasis and similar disorders [696] Other specific developmental learning difficulties [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9] 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] SOB (shortness of breath) [R06.02] DDD (degenerative disc disease), lumbar [M51.36] Lumbar spondylosis [M47.816] Physical deconditioning [R53.81] Uncontrolled type 2 diabetes mellitus without complication, without long-term current use of insulin [[id number]] Low back pain with sciatica [M54.40] Diabetic polyneuropathy associated with type 2 diabetes mellitus (HCC) [E11.42] Functional dyspepsia [K30] History of colonic polyps [Z86.010] Family history of colon cancer in mother [Z80.0] Right thalamic infarction (HCC) [I63.9] TIA (transient ischemic attack) [G45.9] Basilar artery stenosis [I65.1] Allergies: Lopid [Gemfibrozil] Date Verified: 08/22/19 Lab Values Lab Value Units Date High Low POTA* 3.6 mEq/L 08/22/2019 5.1 3.5 CALDERON* 29.2 % 08/22/2019 51.0 40.1 Progress Notes ([facility]): RENUKA MARTHA, PHARMACIST 08/15/2019 4:08 PM Sign when Signing Visit Patient consulted by ROBERT Che for DM management. Updating consult with PCP name. Order pended - please file. Thank you, Renuka Thomas PharmD, [facility] Primary Care Clinical Pharmacist Claude Hanks PENDING SALE TO [facility] Progress Notes (PHARM MED PENDING SALE TO [facility]): RENUKA THOMAS PHARMACIST 08/15/2019 4:05 PM Signed [place] law requires the collaborative practice agreement to be initiated by a physician in order to provide medication titration. Thus, pharmacy will only provide medication recommendations and counseling today unless received verbal permission from consulting provider. Patient consents to pharmacy collaborative practice agreement. REASON FOR CONSULT: DM GOALS: A1c < 7% CONSULTING PROVIDER: ROBERT Mckoy - need to update with PCP Date of Consult: 07/25/19 Lou Julien is a 63 year old male was last seen by PCP, Dr. VERA MANRIQUE MD on 01/02/19. Subjective: Patient is presenting today for f/u pharmacotherapy management appointment for diabetes. At PharmD visit on 09/06, patient had reported being off insulin for a number of weeks but had recently resumed insulin so no med changes were made. At last PharmD appt on 02/21, patient was seen immediately after a hospitalization for stroke and it was noticed that multiple medication discrepancies were present between the hospital discharge list and what the patient was taking which PharmD addressed. Over the fall, patient had multiple ED visits for hyperglycemia and insulin dose adjustments were made. At most recent [facility]PER[facility] appt on 07/25, patient was seen for an ED f/u for chest pain (determined to be musculoskeletal etiology) - was still experiencing some left sided chest discomfort at appt. No med changes were made but patient was advised to restart lisinopril. INTERIM HISTORY: Reports BGs have been running pretty good, around 180 mg/dL about 2 weeks ago. Last checked BG about 1 week ago, doesn't recall what it was. Feels a little dizzy right now. Reports normally feeling dizzy about once per day, usually going from sitting to standing position. Fell about 1 week ago because of being dizzy. Was on the couch, got up too quickly, and fell over. Denies CP, SOB, severe COWAN, or vision changes. Trying to stand up slowly and holds on to something now. Reports having very little energy. Urinates very frequently (gueses maybe 10x/day). Does get thirsty frequently and has dry mouth. Current DM Medications: Metformin ER 500mg tabs - 1000mg BID Insulin glargine (Basaglar) 12 units QHS (taking in AM) Insulin lispro (Humalog) 6 units TIDAC (taking 7 units in evening after supper; only eats 1 meal/day) Current HTN Medications: Lisinopril 40mg daily Metoprolol succinate 100mg daily Amlodipine 5mg daily Preventative Medications: ? On MANDO/ARB: Yes ? On Statin: Yes ? On ASA: No - on clopidogrel ROS: ? Patient denies CP, SOB, COWAN, blurred vision, or lightheadedness ? Patient denies symptoms of hypoglycemia (sweating, anxiety, palpitations, hunger, and tremor) ? Patient reports symptoms of hyperglycemia (polyuria, polydipsia, polyphagia) - though claims he feels like this all the time ? Patient denies potential medication adverse effects DIET/EXERCISE/SOCIAL Hx: ? Not addressed in detail ? Drinks 64 oz of unsweetened iced tea daily MEDICATIONS: ? Pill bottles are not present. ? Adherence: reports missed doses of meds about once per week or less. ? Pharmacy: [email or web address] (adherence packaging) ? Rx coverage: [place] ? Affordability: none ? Diabetes supplies: patient uncertain ? Organization System: adherence packaging through mail order pharmacy ACTIVE PROBLEM LIST Pure Hypercholesterolemia Tietze's Disease Essential Hypertension, Benign Psoriasis and Similar Disorders Other Specific Developmental Learning Difficulties Embolism and Thrombosis of Unspecified Site Low Back Pain Family History of Malignant Neoplasm of Gastrointestinal Tract Sciatica Psvt (Paroxysmal Supraventricular Tachycardia) ([facility]) Iron Deficiency Anemia Benign Neoplasm of Colon Carpal Tunnel Syndrome Pompholyx Eczema Vesicular Palmoplantar Eczema of Foot Contact Dermatitis and Other Eczema, Due to Unspecified Cause Xerosis Cutis Eczematous Dermatitis Psoriasiform Dermatitis Sob (Shortness of Breath) Ddd (Degenerative Disc Disease), Lumbar Lumbar Spondylosis Physical Deconditioning Uncontrolled Type 2 Diabetes Mellitus Without Complication, Without Long-Term Current Use of Insulin Low Back Pain With Sciatica Diabetic Polyneuropathy Associated With Type 2 Diabetes Mellitus (Hcc) Functional Dyspepsia History of Colonic Polyps Family History of Colon Cancer in Mother Right Thalamic Infarction (Hcc) PAST MEDICAL HISTORY Diagnosis Date - Basilar artery stenosis 02/19/2019 - Cerebrovascular accident (CVA) of right thalamus ([facility]) 02/19/2019 - Complete heart block (HCC) 03/04/2019 s/p pacemaker - 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 - Essential hypertension, benign - Family history of malignant neoplasm of gastrointestinal tract - Non-proliferative diabetic retinopathy, mild, both eyes ([facility]) 10/11/2017 - Other specific developmental learning difficulties - Pneumonia 07/07/15 Dx at [facility] - Psoriasis and similar disorders - Pure hypercholesterolemia - Pure hyperglyceridemia - Right thalamic infarction (HCC) 02/18/2019 [facility] - Tietze's disease - Tinea unguium 12/01/2017 - Type II or unspecified type diabetes mellitus with neurological manifestations, not stated as uncontrolled(250.60) ALLERGIES Allergen Reactions - Lopid [Gemfibrozil] Diarrhea Medication List Medication Directions Comments Action/Plan alcohol swabs (ALCOHOL PREP PADS) padm Apply 1 application to affected area once daily with insulin injection supplies amLODIPine (NORVASC) 5 mg tablet Take 1 tablet by mouth every morning. Taking; QAM aspirin, enteric coated (ADULT LOW DOSE ASPIRIN) 81 mg EC tablet Take 1 tablet by mouth every morning. Taking; QAM atorvastatin (LIPITOR) 80 mg tablet Take 1 tablet by mouth every morning. Taking; QAM blood sugar diagnostic (BLOOD GLUCOSE TEST) test strip Test blood sugar(s) one times daily. Dx: Type 2 DM - Uncontrolled E11.65 Insulin: Yes supplies clopidogrel (PLAVIX) 75 mg tablet Take 1 tablet by mouth once daily. Started during hospitalization for stroke in February 2019 Taking; QAM COMPOUNDED PRESCRIPTION Diabetic shoes: DIABETES MELLITUS- uncontrolled with neuropathy supplies dicyclomine (BENTYL) 10 mg capsule Take 1 capsule by mouth before meals and at bedtime. Uncertain if taking; not from [facility] gabapentin (NEURONTIN) 100 mg capsule Take 1 capsule by mouth daily at bedtime for 180 days. Uncertain if taking; not from [facility] glucose (DEX4 GLUCOSE) 4 gram chewable tablet Take 4 tablets by mouth as needed. Uncertain if taking; not from [facility] ibuprofen (MOTRIN) 800 mg tablet Take 1 tablet by mouth every 8 hours as needed for Pain. Take with food. Do NOT take with other NSAIDs Uncertain if taking; not from [facility] insulin glargine (BASAGLAR KWIKPEN U-100 INSULIN) 100 unit/mL (3 mL) inpn Inject 12 Units subcutaneously daily at bedtime. Taking 12 units QAM; did not take today - he forgot medicine (said was in a hurry) insulin lispro (HUMALOG KWIKPEN INSULIN) 100 unit/mL inpn Inject 6 Units subcutaneously three times daily before meals. Taking 7 units in evning after dinner; reports only eating 1 meal per day (supper) Insulin [place], Disposable, (BD ULTRA-FINE LUIS PEN NEEDLE) 32 gauge x 5/32 ndle Use one needle daily for each insulin dose, 4 x's daily. Type 2 DM, insulin dependent. supplies Lancets lancets Test blood sugar(s) one times daily. Dx: Type 2 DM - Uncontrolled E11.65 Insulin: Yes supplies Lancing Device (LANCING DEVICE WITH LANCETS) [facility] Use to check blood sugars as directed supplies lisinopril (ZESTRIL) 40 mg tablet Take 1 tablet by mouth every morning. Taking; QAM melatonin 3 mg tablet Take 1 tablet by mouth daily at bedtime. Takes every night; reports it is separate from adherence packaging; not given by [facility] metFORMIN ER (GLUCOPHAGE XR) 500 mg 24 hr tablet Take 2 tablets by mouth twice daily. Taking; comes in 2 separate packaging metoprolol succinate ER (TOPROL XL) 100 mg Tb24 Take 1 tablet by mouth every morning. Taking; QAM multivitamin (DAILY-YOUSUF) tablet Take 1 tablet by mouth once daily. Taking; QAM naproxen (NAPROSYN) 500 mg tablet Take 1 tablet by mouth twice daily with meals. Take with food. Uncertain if taking; not from [facility] polyethylene glycol 3350 (MIRALAX, GLYCOLAX) 17 gram/dose powder Take 17 g by mouth once daily. Drink a mix of 1 scoop in 8oz of water/beverage once daily as needed for constipation. Patient not taking: Reported on 06/13/2019 Uncertain if taking; not from [facility] ranitidine (ZANTAC) 150 mg tablet Take 1 tablet by mouth twice daily. Patient not taking: Reported on 07/25/2019 Uncertain if taking; not a current script, no refills at [facility]; last filled in March 2019 Syringe with Needle, Safety (BD INTEGRA) 3 mL 22 x 1 1/2 syrg Uses twice a month for testosterone injections supplies traZODone (DESYREL) 50 mg tablet Take 1 tablet by mouth daily at bedtime. Patient not taking: Reported on 06/13/2019 supplies triamcinolone (KENALOG) 0.025 % lotn Apply 1 application to affected area twice daily. To bilateral legs Uses occasionally white petrolatum-mineral oil (EUCERIN) cream Apply 1 application to affected area twice daily. Patient not taking: Reported on 07/25/2019 Uses PRN for dry feet GLYCEMIC CONTROL: ? Glucometer present at visit: No ? SMBG?s: not checking frequently, last recalls BG being 180 about 2 weeks ago; last BG check was 1 week ago but doesn't recall reading ? Hypoglycemia: none Objective: VITALS: BP 140/74 Pulse 79 Last 3 Encounter BP Readings: Date: BP: 07/25/2019 170/78 06/13/2019 138/86[repeat bp[ 05/24/2019 120/80 Wt: 77.6 kg (171 lb) BMI: 25.25 kg/(m2) LABS Lab Results Component Value Date HBA1C 9.7 12/26/2018 HBA1C 9.6 09/25/2018 HBA1C 7.9 06/25/2018 HBA1C 10.4 02/14/2018 HBA1C 8.5 11/29/2017 CMP (external from 06/12/19): Glucose 152 BUN 48 Creatinine 1.31 Sodium 141 Potassium 3.9 Chloride 108 CO2 27 Protein, Total 6.3 Calcium 8.3 Alkaline Phosphatase 127 Bilirubin, Total 0.2 AST 12 ALT 23 eGFR >60 (per CMP 06/12/19) Lab Results Component Value Date CHOL 165 06/25/2018 LDL 102 06/25/2018 HDL 30 06/25/2018 TG 167 06/25/2018 Albumin/Creat Ratio (mg/g) Date Value 06/25/2018 1,646 (H) PHARMACOTHERAPY ASSESSMENT/PLAN: 1. Uncontrolled type 2 diabetes mellitus with complication, with long-term current use of insulin ([facility]) - ICD9: 250.82, V58.67, ICD10: E11.8, E11.65, Z79.4 (primary diagnosis) A1c goal < 7%; uncontrolled (last A1c 9.7%) and very overdue for an A1c; no SMBG log to review, checks BGs very infrequently; last reported BG was 180 several weeks ago; often has sx of hyperglycemia (fatigue, polyuria, polydipsia, dry mouth); no concerns for lows; patient reports adherence to medications most of the time though past records suggest he has issues with compliance; patient incorrectly taking mealtime insulin after the meal - is only taking once daily because only eats 1 meal/day; despite not having recent BG readings or A1c, will still slightly increase basal insulin given sx of hyperglycemia; numerous labs ordered - advised patient to have labwork drawn today which he agreed; no other med changes today; renal fxn and LFTs sufficient for continued use ? INCREASE insulin glargine to 14 units daily - verbal order approved by ROBERT Mckoy ? CONTINUE metformin ER 1000mg BID and insulin lispro 7 units with supper ? Educated to take insulin lispro immediately prior to eating instead of after supper ? ACEi/ARB for renal protection: yes, Scr and K+ sufficient ? Eye exam: UTD ? Foot exam: UTD ? HbA1c: due now - lab already ordered, asked to get labs drawn today 2. Essential hypertension, benign - ICD9: 401.1, ICD10: I10 BP goal < 140/90; fair control after repeat BP checks but still slightly elevated; not experiencing any current or recent CP, severe COWAN, SOB, or vision changes; seems to get dizzy frequently when transitioning from sitting to standing; has fallen once - is now holding onto something and standing up slowly; potentially having sx of orthostasis but overall BP is elevated so will not make med changes today; BP control very important for patient especially given recent stroke hx; will continue to monitor; HR, renal fxn, and K+ sufficient for continued use ? CONTINUE lisinopril 40mg daily, metoprolol succinate 100mg daily, and amlodipine 5mg daily ? Advised to cut down on caffeine intake (see if unsweetened tea is caffeinated or not) ? Counseled on alarm sx and advised to go to ED if starts noticing any sx 3. Medication management - ICD9: V58.69, ICD10: Z79.899 Patient seems to have low health literacy. Receives medications through [facility] mail order and gets adherence packaging. Reports only taking pills in adherence packaging plus melatonin at night. Reviewed medications, dosing, frequency, and administration of diabetes meds with patient. PharmD then called [facility] to verify remainder of med list which is updated above. ? Potentially inappropriate medication: patient has high-dose ibuprofen on medication list; patient has history of stroke and NSAIDs can increase CV event risk; uncertain if patient is taking medication but to address in future; should encourage patient to switch to acetaminophen for reduced CV risk Patient is scheduled to see HELIARC WELDER on 08/22 and PCP on 10/21. Patient to return to clinic for PharmD f/u on 09/26. Patient verbalized understanding of instructions. Renuka Thomas PharmD, BCPS Primary Care Clinical Pharmacist Marcia GONZALEZ [facility] RENUKA THOMAS, PHARMACIST 08/15/2019 2:13 PM Addendum Get bloodwork done today. INCREASE Basaglar (the cream/chery colored pen) from 12 to 14 units per day. CONTINUE all other medications. Check to see if the tea you are drinking from [place] has caffeine. If it has caffeine, try drinking less. Caffeine raises blood pressure. Keeping your blood pressure under control is very important. Previous Version Normal [facility] MR-Brain without Contrast IM PORTon 08-21-2019 MR-Brain without Contrast IMPORT Images were obtained outside of [facility] Normal [facility] CR-Chest 1 View IMPORTon CR-Chest 1 View IMPORT Images were [place] outside of [facility] Normal [facility] CT-Brain/Head without Contra st IMPORTon 08-20-2019 CT-Brain/Head without Contrast IMPORT Images were obtained outside of [facility] Normal [facility] CR-Knee 4 or More Views IMPO RTon 08-19-2019 CR-Knee 4 or More Views IMPORT Images were obtained outside of [facility] Normal [facility] Culture, urine Bacteria identified Cx Nom (U) Klebsiella pneumoniae sp pneum [facility] Work Phone: Bacteria identified Cx Nom (U) Culture exhibits no growth. [facility] Work Phone: No Panel Information Respiratory Panel (PCR) [facility] Work Phone: Streptococcus pneumoniae Antigen (M [facility] Work Phone: Vital Signs Date Time Vital Sign Value Performing Clinician Facility 04-28-2025 19:10-0400 Body temperature 98.4 [degF] Dr. Vera Manrique MD Work Phone: [facility] 04-28-2025 19:10-0400 Diastolic blood pressure 75 mm[Hg] Dr. Vera Manrique MD Work Phone: [phone] [place] [address] 04-28-2025 19:10-0400 Heart rate 65 /min Dr. Vera Manrique MD Work Phone: [phone] [place] [address] 04-28-2025 19:10-0400 Respiratory rate 16 /min Dr. Vera Manrique MD Work Phone: [phone] [place] [address] 04-28-2025 19:10-0400 SaO2% (BldA) [Mass fraction] 99 % Dr. Vera Manrique MD Work Phone: 1(709)[phone] [place] [address] 04-28-2025 19:10-0400 Systolic blood pressure 164 mm[Hg] Dr. Vera Manrique MD Work Phone: [phone] [place] [address] 04-28-2025 11:36-0400 Body mass index (BMI) [Ratio] 22.3 kg/m2 Dr. Vera Manrique MD Work Phone: 5(036)[phone] [place] [address] 04-28-2025 11:36-0400 Body weight 68.[address] Vera Manrique MD Work Phone: 8([phone] [place] [address] 04-28-2025 10:43-0400 Body height 175.[address] Vera Manrique MD Work Phone: [phone] [place] [address] 04-22-2025 13:44-0400 Body mass index (BMI) [Ratio] 22.89 kg/m2 Octavio Monsalve Work Phone: 0([phone] [place] [address] 04-22-2025 13:44-0400 Body temperature 97.81 [degF] Octavio Monsalve Work Phone: [facility] 04-22-2025 13:44-0400 Body weight 70.31 kg Octavio Monsalve Work Phone: [facility] 04-22-2025 13:44-0400 Diastolic blood pressure 72 mm[Hg] Octavio Monsalve Work Phone: [facility] 04-22-2025 13:44-0400 Heart rate 68 /min Octavio Monsalve Work Phone: [facility] 04-22-2025 13:44-0400 SaO2% (BldA) [Mass fraction] 98 % Octavio Monsalve Work Phone: [facility] 04-22-2025 13:44-0400 Systolic blood pressure 163 mm[Hg] Octavio Monsalve Work Phone: [facility] 04-08-2025 14:15-0400 Body mass index (BMI) [Ratio] 22.3 kg/m2 Injection Wstr Work Phone: [facility] 04-08-2025 14:15-0400 Body temperature 97.3 [degF] Injection Wstr Work Phone: [facility] 04-08-2025 14:15-0400 Body weight 68.49 kg Injection Wstr Work Phone: [facility] 04-08-2025 14:15-0400 Diastolic blood pressure 66 mm[Hg] Injection Wstr Work Phone: [facility] 04-08-2025 14:15-0400 Heart rate 74 /min Injection Wstr Work Phone: [facility] 04-08-2025 14:15-0400 SaO2% (BldA) [Mass fraction] 98 % Injection Wstr Work Phone: [facility] 04-08-2025 14:15-0400 Systolic blood pressure 150 mm[Hg] Injection Wstr Work Phone: [facility] 03-25-2025 13:05-0400 Body mass index (BMI) [Ratio] 21.78 kg/m2 Octavio Monsalve Work Phone: [facility] 03-25-2025 13:05-0400 Body temperature 97.39 [degF] Octavio Monsalve Work Phone: [facility] 03-25-2025 13:05-0400 Body weight 66.91 kg Octavio Monsalve Work Phone: [facility] 03-25-2025 13:05-0400 Diastolic blood pressure 52 mm[Hg] Octavio Monsalve Work Phone: [facility] 03-25-2025 13:05-0400 Heart rate 65 /min Octavio Monsalve Work Phone: [facility] 03-25-2025 13:05-0400 SaO2% (BldA) [Mass fraction] 98 % Octavio Monsalve Work Phone: [facility] 03-25-2025 13:05-0400 Systolic blood pressure 101 mm[Hg] Octavio Monsalve Work Phone: [facility] 03-19-2025 13:56-0400 Body temperature 97.6 [degF] Dr. Vera Manrique MD Work Phone: 9(813)631-692837 [place] [address] 03-19-2025 13:56-0400 Diastolic blood pressure 59 mm[Hg] Dr. Vera Manrique MD Work Phone: 9(971)787-202354 [place] [address] 03-19-2025 13:56-0400 Heart rate 66 /min Dr. Vera Manrique MD Work Phone: 2(883)200-893737 [place] [address] 03-19-2025 13:56-0400 Respiratory rate 18 /min Dr. Vera Manrique MD Work Phone: 5(556)803-746537 [place] [address] 03-19-2025 13:56-0400 SaO2% (BldA) [Mass fraction] 98 % Dr. Vera Manrique MD Work Phone: 2(424)514-062454 [place] [address] 03-19-2025 13:56-0400 Systolic blood pressure 132 mm[Hg] Dr. Vera Manrique MD Work Phone: 0(397)984-932537 [place] [address] 03-19-2025 12:16-0400 Body height 175.[address] Vera Manrique MD Work Phone: 0(451)038-646337 [place] [address] 03-19-2025 12:16-0400 Body mass index (BMI) [Ratio] 22.6 kg/m2 Dr. Vera Manrique MD Work Phone: [facility] 03-19-2025 12:16-0400 Body weight 69.[address] Vera Manrique MD Work Phone: [facility] 02-25-2025 13:26-0400 Body mass index (BMI) [Ratio] 21.86 kg/m2 Octaviojaqueline Monsalve Work Phone: [facility] 02-25-2025 13:26-0400 Body temperature 97.5 [degF] Octavio Monsalve Work Phone: [facility] 02-25-2025 13:26-0400 Body weight 67.13 kg Octavio Monsalve Work Phone: [facility] 02-25-2025 13:26-0400 Diastolic blood pressure 62 mm[Hg] Octavio Monsalve Work Phone: [facility] 02-25-2025 13:26-0400 Heart rate 67 /min Octavio Monsalve Work Phone: [facility] 02-25-2025 13:26-0400 SaO2% (BldA) [Mass fraction] 98 % Octavio Monsalve Work Phone: [facility] 02-25-2025 13:26-0400 Systolic blood pressure 134 mm[Hg] Octavio Monsalve Work Phone: [facility] 02-18-2025 13:58-0400 Body mass index (BMI) [Ratio] 21.86 kg/m2 Injection Wstr Work Phone: [facility] 02-18-2025 13:58-0400 Body weight 67.13 kg Injection Wstr Work Phone: [facility] 02-18-2025 13:58-0400 Diastolic blood pressure 62 mm[Hg] Injection Wstr Work Phone: [facility] 02-18-2025 13:58-0400 Heart rate 72 /min Injection Wstr Work Phone: [facility] 02-18-2025 13:58-0400 Respiratory rate 12 /min Injection Wstr Work Phone: [facility] 02-18-2025 13:58-0400 SaO2% (BldA) [Mass fraction] 97 % Injection Wstr Work Phone: [facility] 02-18-2025 13:58-0400 Systolic blood pressure 154 mm[Hg] Injection Wstr Work Phone: [facility] 01-23-2025 14:59-0400 Body height 175.3 cm Pacc 1 Work Phone: [facility] 01-23-2025 14:59-0400 Body mass index (BMI) [Ratio] 22.48 kg/m2 Pacc 1 Work Phone: [facility] 01-23-2025 14:59-0400 Body temperature 98.1 [degF] Pacc 1 Work Phone: [facility] 01-23-2025 14:59-0400 Body weight 69.04 kg Pacc 1 Work Phone: [facility] 01-23-2025 14:59-0400 Diastolic blood pressure 62 mm[Hg] Pacc 1 Work Phone: [facility] 01-23-2025 14:59-0400 Heart rate 71 /min Pacc 1 Work Phone: [facility] 01-23-2025 14:59-0400 Respiratory rate 12 /min Pacc 1 Work Phone: [facility] 01-23-2025 14:59-0400 SaO2% (BldA) [Mass fraction] 96 % Pacc 1 Work Phone: [facility] 01-23-2025 14:59-0400 Systolic blood pressure 156 mm[Hg] Pacc 1 Work Phone: [facility] 01-21-2025 10:19-0400 Body mass index (BMI) [Ratio] 22.37 kg/m2 Octavio Monsalve Work Phone: [facility] 01-21-2025 10:19-0400 Body temperature 97 [degF] Octavio Monsalve Work Phone: [facility] 01-21-2025 10:19-0400 Body weight 68.72 kg Octavio Monsalve Work Phone: [facility] 01-21-2025 10:19-0400 Diastolic blood pressure 82 mm[Hg] Octavio Monsalve Work Phone: [facility] 01-21-2025 10:19-0400 Heart rate 49 /min Octavio Monsalve Work Phone: [facility] 01-21-2025 10:19-0400 SaO2% (BldA) [Mass fraction] 99 % Octavio Monsalve Work Phone: [facility] 01-21-2025 10:19-0400 Systolic blood pressure 147 mm[Hg] Octavio Monsalve Work Phone: [facility] 01-10-2025 11:09-0400 Diastolic blood pressure 61 mm[Hg] Rc Shrestha MD Work Phone: [facility] 01-10-2025 11:09-0400 Heart rate 60 /min Rc Shrestha MD Work Phone: [facility] 01-10-2025 11:09-0400 SaO2% (BldA) [Mass fraction] 99 % Rc Shrestha MD Work Phone: [facility] 01-10-2025 11:09-0400 Systolic blood pressure 134 mm[Hg] Rc Shrestha MD Work Phone: [facility] 01-02-2025 13:25-0400 Body mass index (BMI) [Ratio] 22.15 kg/m2 Janice Hodges APRN.HELIARC WELDER Work Phone: [facility] 01-02-2025 13:25-0400 Body weight 68.04 kg Janice Hodges APRN.HELIARC WELDER Work Phone: [facility] 01-02-2025 13:25-0400 Diastolic blood pressure 63 mm[Hg] Janice Hodges APRN.HELIARC WELDER Work Phone: [facility] 01-02-2025 13:25-0400 Heart rate 64 /min Janice Hodges APRN.HELIARC WELDER Work Phone: [facility] 01-02-2025 13:25-0400 Systolic blood pressure 125 mm[Hg] Janice Hodges APRN.HELIARC WELDER Work Phone: [facility] 12-31-2024 15:49-0400 Body height 175.3 cm Vera Manrique MD Work Phone: [facility] 12-31-2024 15:49-0400 Body mass index (BMI) [Ratio] 21.94 kg/m2 Vera Manrique MD Work Phone: [facility] 12-31-2024 15:49-0400 Body weight 67.4 kg Vera Manrique MD Work Phone: [facility] 12-31-2024 15:49-0400 Diastolic blood pressure 70 mm[Hg] Vera Manrique MD Work Phone: [facility] 12-31-2024 15:49-0400 Heart rate 66 /min Vera Manrique MD Work Phone: [facility] 12-31-2024 15:49-0400 SaO2% (BldA) [Mass fraction] 98 % Vera Manrique MD Work Phone: [facility] 12-31-2024 15:49-0400 Systolic blood pressure 137 mm[Hg] Vera Manrique MD Work Phone: [facility] 12-31-2024 14:16-0400 Body mass index (BMI) [Ratio] 21.57 kg/m2 Injection Wstr Work Phone: [facility] 12-31-2024 14:16-0400 Body temperature 97.3 [degF] Injection Wstr Work Phone: [facility] 12-31-2024 14:16-0400 Body weight 67.59 kg Injection Wstr Work Phone: [facility] 12-31-2024 14:16-0400 Diastolic blood pressure 63 mm[Hg] Injection Wstr Work Phone: 6(361)552-207898 [place] [address] 12-31-2024 14:16-0400 Heart rate 72 /min Injection Wstr Work Phone: 0(551)333-345798 [place] [address] 12-31-2024 14:16-0400 SaO2% (BldA) [Mass fraction] 99 % Injection Wstr Work Phone: 1(816)200-359698 [place] [address] 12-31-2024 14:16-0400 Systolic blood pressure 123 mm[Hg] Injection Wstr Work Phone: 4(528)912-678298 [place] [address] 12-23-2024 20:14-0400 Body temperature 98 [degF] Dr. Vera Manrique MD Work Phone: 7(858)599-054237 [place] [address] 12-23-2024 20:14-0400 Diastolic blood pressure 70 mm[Hg] Dr. Vear Manrique MD Work Phone: 9(858)317-351137 [place] [address] 12-23-2024 20:14-0400 Heart rate 67 /min Dr. Vera Manrique MD Work Phone: 0(933)339-482437 [place] [address] 12-23-2024 20:14-0400 Respiratory rate 16 /min Dr. Vera Manrique MD Work Phone: 7(913)361-711337 [place] [address] 12-23-2024 20:14-0400 SaO2% (BldA) [Mass fraction] 99 % Dr. Vera Manrique MD Work Phone: 5(733)042-051337 [place] [address] 12-23-2024 20:14-0400 Systolic blood pressure 118 mm[Hg] Dr. Vera Manrique MD Work Phone: 6(880)819-028337 [place] [address] 12-23-2024 18:41-0400 Body height 175.[address] Vera Manrique MD Work Phone: 0(955)109-317637 [place] [address] 12-23-2024 18:41-0400 Body mass index (BMI) [Ratio] 24.3 kg/m2 Dr. Vera Manrique MD Work Phone: 7(848)238-698037 [place] [address] 12-23-2024 18:41-0400 Body weight 74.[address] Vera Manrique MD Work Phone: [facility] 12-20-2024 14:07-0400 Body temperature 98.2 [degF] Treatment Wstr Work Phone: [facility] 12-20-2024 14:07-0400 Diastolic blood pressure 64 mm[Hg] Treatment Wstr Work Phone: [facility] 12-20-2024 14:07-0400 Heart rate 71 /min Treatment Wstr Work Phone: [facility] 12-20-2024 14:07-0400 SaO2% (BldA) [Mass fraction] 99 % Treatment Wstr Work Phone: [facility] 12-20-2024 14:07-0400 Systolic blood pressure 158 mm[Hg] Treatment Wstr Work Phone: [facility] 2024 10:50-0400 Body temperature 97.81 [degF] Treatment Wstr Work Phone: [facility] 2024 10:50-0400 Diastolic blood pressure 64 mm[Hg] Treatment Wstr Work Phone: [facility] 2024 10:50-0400 Heart rate 70 /min Treatment Wstr Work Phone: [facility] 2024 10:50-0400 Respiratory rate 16 /min Treatment Wstr Work Phone: [facility] 2024 10:50-0400 SaO2% (BldA) [Mass fraction] 99 % Treatment Wstr Work Phone: [facility] 2024 10:50-0400 Systolic blood pressure 136 mm[Hg] Treatment Wstr Work Phone: [facility] 12-16-2024 14:26-0400 Body temperature 97.9 [degF] Treatment Wstr Work Phone: [facility] 12-16-2024 14:26-0400 Diastolic blood pressure 63 mm[Hg] Treatment Wstr Work Phone: [facility] 12-16-2024 14:26-0400 Heart rate 73 /min Treatment Wstr Work Phone: [facility] 12-16-2024 14:26-0400 SaO2% (BldA) [Mass fraction] 99 % Treatment Wstr Work Phone: [facility] 12-16-2024 14:26-0400 Systolic blood pressure 153 mm[Hg] Treatment Wstr Work Phone: [facility] 12-13-2024 15:06-0400 Body temperature 98.1 [degF] Treatment Wstr Work Phone: [facility] 12-13-2024 15:06-0400 Diastolic blood pressure 67 mm[Hg] Treatment Wstr Work Phone: [facility] 12-13-2024 15:06-0400 Heart rate 68 /min Treatment Wstr Work Phone: [facility] 12-13-2024 15:06-0400 SaO2% (BldA) [Mass fraction] 99 % Treatment Wstr Work Phone: [facility] 12-13-2024 15:06-0400 Systolic blood pressure 151 mm[Hg] Treatment Wstr Work Phone: [facility] 12-11-2024 11:16-0400 Body mass index (BMI) [Ratio] 22.08 kg/m2 Nini Masci DO Work Phone: [facility] 12-11-2024 11:16-0400 Body temperature 96.4 [degF] Nini Masci DO Work Phone: [facility] 12-11-2024 11:16-0400 Body weight 69.17 kg Nini Masci DO Work Phone: [facility] 12-11-2024 11:16-0400 Diastolic blood pressure 62 mm[Hg] Nini Masci DO Work Phone: [facility] 12-11-2024 11:16-0400 Heart rate 64 /min Nini Masci DO Work Phone: [facility] 12-11-2024 11:16-0400 SaO2% (BldA) [Mass fraction] 99 % Nini Gormani DO Work Phone: [facility] 12-11-2024 11:16-0400 Systolic blood pressure 120 mm[Hg] Nini Gormani DO Work Phone: [facility] 10-28-2024 10:58-0400 Body height 177 cm Octaviojaqueline Hernandezight Work Phone: [facility] 10-28-2024 10:58-0400 Body mass index (BMI) [Ratio] 21.57 kg/m2 Octavio Monsalve Work Phone: [facility] 10-28-2024 10:58-0400 Body temperature 97.5 [degF] Octaviojaqueline Hernandezight Work Phone: [facility] 10-28-2024 10:58-0400 Body weight 67.59 kg Octaviojaqueline Hrenandezight Work Phone: [facility] 10-28-2024 10:58-0400 Diastolic blood pressure 74 mm[Hg] Octavio Monsalve Work Phone: [facility] 10-28-2024 10:58-0400 Heart rate 65 /min Octavio Monsalve Work Phone: [facility] 10-28-2024 10:58-0400 SaO2% (BldA) [Mass fraction] 99 % Octaviojaqueline Hernandezight Work Phone: [facility] 10-28-2024 10:58-0400 Systolic blood pressure 157 mm[Hg] Octavio Monsalve Work Phone: [facility] 10-09-2024 10:05-0500 Body mass index (BMI) [Ratio] 22.56 kg/m2 Cookie Cioce RUNNING SPECIALIST.HELIARC WELDER Work Phone: [facility] 10-09-2024 10:05-0500 Body temperature 97.7 [degF] Cookie Cioce RUNNING SPECIALIST.HELIARC WELDER Work Phone: [facility] 10-09-2024 10:05-0500 Body weight 69.31 kg Cookie Cioce RUNNING SPECIALIST.HELIARC WELDER Work Phone: [facility] 10-09-2024 10:05-0500 Diastolic blood pressure 64 mm[Hg] Cookie Cioce RUNNING SPECIALIST.HELIARC WELDER Work Phone: [facility] 10-09-2024 10:05-0500 Heart rate 60 /min Cookie Cioce RUNNING SPECIALIST.HELIARC WELDER Work Phone: [facility] 10-09-2024 10:05-0500 SaO2% (BldA) [Mass fraction] 98 % Cookie Cioce RUNNING SPECIALIST.HELIARC WELDER Work Phone: [facility] 10-09-2024 10:05-0500 Systolic blood pressure 124 mm[Hg] Cookie Cioce RUNNING SPECIALIST.HELIARC WELDER Work Phone: [facility] 10-08-2024 08:54-0500 Body mass index (BMI) [Ratio] 22.36 kg/m2 Angie Bogner PA-C Work Phone: [facility] 10-08-2024 08:54-0500 Body weight 68.67 kg Angie Bogner PA-C Work Phone: [facility] 10-08-2024 08:54-0500 Diastolic blood pressure 65 mm[Hg] Angie Bogner PA-C Work Phone: [facility] 10-08-2024 08:54-0500 Heart rate 60 /min Angie Bogner PA-C Work Phone: [facility] 10-08-2024 08:54-0500 Respiratory rate 16 /min Angie Bogner PA-C Work Phone: [facility] 10-08-2024 08:54-0500 SaO2% (BldA) [Mass fraction] 99 % Angie Bogner PA-C Work Phone: [facility] 10-08-2024 08:54-0500 Systolic blood pressure 138 mm[Hg] Angie Bogner PA-C Work Phone: [facility] 09-30-2024 10:35-0500 Body height 175.3 cm Janice Hodges APRN.HELIARC WELDER Work Phone: [facility] 09-30-2024 10:35-0500 Body mass index (BMI) [Ratio] 22.14 kg/m2 Janice Hodges APRN.HELIARC WELDER Work Phone: [facility] 09-30-2024 10:35-0500 Body weight 68 kg Janice Hodges APRN.HELIARC WELDER Work Phone: [facility] 09-30-2024 10:35-0500 Diastolic blood pressure 69 mm[Hg] Janice Hodges APRN.HELIARC WELDER Work Phone: [facility] 09-30-2024 10:35-0500 Heart rate 60 /min Janice Hodges APRN.HELIARC WELDER Work Phone: [facility] 09-30-2024 10:35-0500 Respiratory rate 16 /min Janice Hodges APRN.HELIARC WELDER Work Phone: [facility] 09-30-2024 10:35-0500 Systolic blood pressure 166 mm[Hg] Janice Hodges APRN.HELIARC WELDER Work Phone: [facility] 09-24-2024 09:57-0500 Body mass index (BMI) [Ratio] 22.62 kg/m2 Angie Bogner PA-C Work Phone: [facility] 09-24-2024 09:57-0500 Body weight 69.49 kg Angie Bogner PA-C Work Phone: [facility] 09-24-2024 09:57-0500 Diastolic blood pressure 64 mm[Hg] Angie Bogner PA-C Work Phone: [facility] 09-24-2024 09:57-0500 Heart rate 67 /min Angie Bogner PA-C Work Phone: [facility] 09-24-2024 09:57-0500 Respiratory rate 16 /min Angie Bogner PA-C Work Phone: [facility] 09-24-2024 09:57-0500 SaO2% (BldA) [Mass fraction] 99 % Angie Bogner PA-C Work Phone: [facility] 09-24-2024 09:57-0500 Systolic blood pressure 118 mm[Hg] Angie Bogner PA-C Work Phone: [facility] 07-10-2024 13:46-0500 Body temperature 98.8 [degF] Treatment Wstr Work Phone: [facility] 07-10-2024 13:46-0500 Diastolic blood pressure 76 mm[Hg] Treatment Wstr Work Phone: [facility] 07-10-2024 13:46-0500 Heart rate 70 /min Treatment Wstr Work Phone: [facility] 07-10-2024 13:46-0500 Respiratory rate 16 /min Treatment Wstr Work Phone: [facility] 07-10-2024 13:46-0500 SaO2% (BldA) [Mass fraction] 99 % Treatment Wstr Work Phone: [facility] 07-10-2024 13:46-0500 Systolic blood pressure 153 mm[Hg] Treatment Wstr Work Phone: [facility] 07-08-2024 13:57-0500 Body temperature 98.6 [degF] Treatment Wstr Work Phone: [facility] 07-08-2024 13:57-0500 Diastolic blood pressure 69 mm[Hg] Treatment Wstr Work Phone: [facility] 07-08-2024 13:57-0500 Heart rate 70 /min Treatment Wstr Work Phone: [facility] 07-08-2024 13:57-0500 SaO2% (BldA) [Mass fraction] 98 % Treatment Wstr Work Phone: [facility] 07-08-2024 13:57-0500 Systolic blood pressure 128 mm[Hg] Treatment Wstr Work Phone: [facility] 07-03-2024 09:00-0500 Body temperature 97.2 [degF] Treatment Wstr Work Phone: [facility] 07-03-2024 09:00-0500 Diastolic blood pressure 67 mm[Hg] Treatment Wstr Work Phone: [facility] 07-03-2024 09:00-0500 Heart rate 90 /min Treatment Wstr Work Phone: [facility] 07-03-2024 09:00-0500 Systolic blood pressure 110 mm[Hg] Treatment Wstr Work Phone: [facility] 07-01-2024 08:38-0500 Body temperature 98.1 [degF] Treatment Wstr Work Phone: [facility] 07-01-2024 08:38-0500 Diastolic blood pressure 66 mm[Hg] Treatment Wstr Work Phone: [facility] 07-01-2024 08:38-0500 Heart rate 66 /min Treatment Wstr Work Phone: [facility] 07-01-2024 08:38-0500 Respiratory rate 14 /min Treatment Wstr Work Phone: [facility] 07-01-2024 08:38-0500 SaO2% (BldA) [Mass fraction] 99 % Treatment Wstr Work Phone: [facility] 07-01-2024 08:38-0500 Systolic blood pressure 146 mm[Hg] Treatment Wstr Work Phone: [facility] 06-28-2024 14:15-0500 Diastolic blood pressure 72 mm[Hg] Treatment Wstr Work Phone: [facility] 06-28-2024 14:15-0500 Systolic blood pressure 138 mm[Hg] Treatment Wstr Work Phone: [facility] 06-28-2024 13:32-0500 Body temperature 97.81 [degF] Treatment Wstr Work Phone: [facility] 06-28-2024 13:32-0500 Heart rate 71 /min Treatment Wstr Work Phone: [facility] 06-28-2024 13:32-0500 Respiratory rate 18 /min Treatment Wstr Work Phone: [facility] 06-28-2024 13:32-0500 SaO2% (BldA) [Mass fraction] 99 % Treatment Wstr Work Phone: [facility] 06-13-2024 10:06-0500 Body height 175.3 cm Donna Dallas RUNNING SPECIALIST.HELIARC WELDER Work Phone: [facility] 06-13-2024 10:06-0500 Body mass index (BMI) [Ratio] 23.01 kg/m2 Donna Dallas RUNNING SPECIALIST.HELIARC WELDER Work Phone: [facility] 06-13-2024 10:06-0500 Body temperature 97 [degF] Donna Dallas RUNNING SPECIALIST.HELIARC WELDER Work Phone: [facility] 06-13-2024 10:06-0500 Body weight 70.67 kg Donna Dallas RUNNING SPECIALIST.HELIARC WELDER Work Phone: [facility] 06-13-2024 10:06-0500 Diastolic blood pressure 67 mm[Hg] Donna Dallas RUNNING SPECIALIST.HELIARC WELDER Work Phone: [facility] 06-13-2024 10:06-0500 Heart rate 77 /min Donna Dallas RUNNING SPECIALIST.HELIARC WELDER Work Phone: [facility] 06-13-2024 10:06-0500 SaO2% (BldA) [Mass fraction] 99 % Donna Dallas RUNNING SPECIALIST.HELIARC WELDER Work Phone: [facility] 06-13-2024 10:06-0500 Systolic blood pressure 130 mm[Hg] Donna Dallas RUNNING SPECIALIST.HELIARC WELDER Work Phone: [facility] 06-12-2024 11:29-0500 Body mass index (BMI) [Ratio] 22.82 kg/m2 Faviola Holman RUNNING SPECIALIST.HELIARC WELDER Work Phone: [facility] 06-12-2024 11:29-0500 Body temperature 97.5 [degF] Faviola Holman RUNNING SPECIALIST.HELIARC WELDER Work Phone: [facility] 06-12-2024 11:29-0500 Body weight 71.1 kg Faviola Holman RUNNING SPECIALIST.HELIARC WELDER Work Phone: [facility] 06-12-2024 11:29-0500 Diastolic blood pressure 72 mm[Hg] Faviola Holman RUNNING SPECIALIST.HELIARC WELDER Work Phone: [facility] 06-12-2024 11:29-0500 Heart rate 65 /min Faviola Holman RUNNING SPECIALIST.HELIARC WELDER Work Phone: [facility] 06-12-2024 11:29-0500 SaO2% (BldA) [Mass fraction] 98 % Faviola Holman RUNNING SPECIALIST.HELIARC WELDER Work Phone: [facility] 06-12-2024 11:29-0500 Systolic blood pressure 138 mm[Hg] Faviola Holman RUNNING SPECIALIST.HELIARC WELDER Work Phone: [facility] 05-20-2024 08:17-0400 Body mass index (BMI) [Ratio] 22.72 kg/m2 Janice Hodges APRN.HELIARC WELDER Work Phone: [facility] 05-20-2024 08:17-0400 Body weight 70.8 kg Janice Hodges APRN.HELIARC WELDER Work Phone: [facility] 05-20-2024 08:17-0400 Diastolic blood pressure 70 mm[Hg] Janice Hodges APRN.HELIARC WELDER Work Phone: [facility] 05-20-2024 08:17-0400 Heart rate 66 /min Janice Hodges APRN.HELIARC WELDER Work Phone: [facility] 05-20-2024 08:17-0400 Systolic blood pressure 159 mm[Hg] Janice Hodges APRN.HELIARC WELDER Work Phone: [facility] 05-09-2024 13:38-0400 Body mass index (BMI) [Ratio] 23.14 kg/m2 Vera Manrique MD Work Phone: [facility] 05-09-2024 13:38-0400 Body weight 72.1 kg Vera Manrique MD Work Phone: [facility] 05-09-2024 13:38-0400 Diastolic blood pressure 62 mm[Hg] Vera Manrique MD Work Phone: [facility] 05-09-2024 13:38-0400 Heart rate 63 /min Vera Manrique MD Work Phone: [facility] 05-09-2024 13:38-0400 SaO2% (BldA) [Mass fraction] 98 % Vera Manrique MD Work Phone: [facility] 05-09-2024 13:38-0400 Systolic blood pressure 138 mm[Hg] Vera Manrique MD Work Phone: [facility] 04-30-2024 11:15-0400 Body height 176.5 cm Angie Bogner PA-C Work Phone: [facility] 04-30-2024 11:15-0400 Body mass index (BMI) [Ratio] 23.29 kg/m2 Angie Bogner PA-C Work Phone: [facility] 04-30-2024 11:15-0400 Body weight 72.58 kg Angie Bogner PA-C Work Phone: [facility] 04-30-2024 11:15-0400 Diastolic blood pressure 52 mm[Hg] Angie Bogner PA-C Work Phone: [facility] 04-30-2024 11:15-0400 Heart rate 73 /min Angie Bogner PA-C Work Phone: [facility] 04-30-2024 11:15-0400 Respiratory rate 12 /min Angie Bogner PA-C Work Phone: [facility] 04-30-2024 11:15-0400 SaO2% (BldA) [Mass fraction] 97 % Angie Bogner PA-C Work Phone: [facility] 04-30-2024 11:15-0400 Systolic blood pressure 130 mm[Hg] Angie Mercado PA-C Work Phone: [facility] 04-01-2024 16:21-0400 Diastolic blood pressure 56 mm[Hg] Vera Manrique MD Work Phone: [facility] 04-01-2024 16:21-0400 Systolic blood pressure 128 mm[Hg] Vera Manrique MD Work Phone: [facility] 04-01-2024 16:19-0400 Body mass index (BMI) [Ratio] 22.88 kg/m2 Vera Manrique MD Work Phone: [facility] 04-01-2024 16:19-0400 Body weight 71.31 kg Vera Manrique MD Work Phone: [facility] 04-01-2024 16:19-0400 Heart rate 70 /min Vera Manrique MD Work Phone: [facility] 04-01-2024 16:19-0400 SaO2% (BldA) [Mass fraction] 98 % Vera Manrique MD Work Phone: [facility] 03-08-2024 08:10-0400 Body height 176.5 cm Nini Freire DO Work Phone: [facility] 03-08-2024 08:10-0400 Body mass index (BMI) [Ratio] 22.85 kg/m2 Nini Freire DO Work Phone: [facility] 03-08-2024 08:10-0400 Body temperature 97.39 [degF] Nini Freire DO Work Phone: [facility] 03-08-2024 08:10-0400 Body weight 71.22 kg Nini Freire DO Work Phone: [facility] 03-08-2024 08:10-0400 Diastolic blood pressure 82 mm[Hg] Nini Freire DO Work Phone: [facility] 03-08-2024 08:10-0400 Heart rate 60 /min Nini Freire DO Work Phone: [facility] 03-08-2024 08:10-0400 SaO2% (BldA) [Mass fraction] 99 % Nini Freire DO Work Phone: [facility] 03-08-2024 08:10-0400 Systolic blood pressure 192 mm[Hg] Nini Freire DO Work Phone: [facility] 02-26-2024 09:05-0400 Body mass index (BMI) [Ratio] 23.13 kg/m2 Janice Hodges RUNNING SPECIALIST.HELIARC WELDER Work Phone: [facility] 02-26-2024 09:05-0400 Body weight 69 kg Janice Hodges RUNNING SPECIALIST.HELIARC WELDER Work Phone: [facility] 02-26-2024 09:05-0400 Diastolic blood pressure 72 mm[Hg] Janice Hodges RUNNING SPECIALIST.HELIARC WELDER Work Phone: [facility] 02-26-2024 09:05-0400 Heart rate 73 /min Janice Hodges RUNNING SPECIALIST.HELIARC WELDER Work Phone: [facility] 02-26-2024 09:05-0400 Systolic blood pressure 137 mm[Hg] Janice Hodges RUNNING SPECIALIST.HELIARC WELDER Work Phone: [facility] 02-07-2024 11:26-0400 Body mass index (BMI) [Ratio] 23.26 kg/m2 Taco Older RUNNING SPECIALIST.HELIARC WELDER Work Phone: [facility] 02-07-2024 11:26-0400 Body weight 69.4 kg Tcao Older RUNNING SPECIALIST.HELIARC WELDER Work Phone: [facility] 02-07-2024 11:26-0400 Diastolic blood pressure 68 mm[Hg] Taco Older RUNNING SPECIALIST.HELIARC WELDER Work Phone: [facility] 02-07-2024 11:26-0400 Heart rate 64 /min Taco Older RUNNING SPECIALIST.HELIARC WELDER Work Phone: [facility] 02-07-2024 11:26-0400 Respiratory rate 16 /min Taco Older RUNNING SPECIALIST.HELIARC WELDER Work Phone: [facility] 02-07-2024 11:26-0400 SaO2% (BldA) [Mass fraction] 97 % Taco Older RUNNING SPECIALIST.HELIARC WELDER Work Phone: [facility] 02-07-2024 11:26-0400 Systolic blood pressure 130 mm[Hg] Taco Older RUNNING SPECIALIST.HELIARC WELDER Work Phone: [facility] 11-20-2023 09:36-0400 Body height 172.7 cm Omid Maditz DO Work Phone: [facility] 11-20-2023 09:36-0400 Body weight 67.8 kg Omid Maditz DO Work Phone: [facility] 11-20-2023 09:36-0400 Diastolic blood pressure 78 mm[Hg] Omid Maditz DO Work Phone: [facility] 11-20-2023 09:36-0400 Heart rate 66 /min Omid Maditz DO Work Phone: [facility] 11-20-2023 09:36-0400 Respiratory rate 16 /min Omid Maditz DO Work Phone: [facility] 11-20-2023 09:36-0400 Systolic blood pressure 177 mm[Hg] Omid Maditz DO Work Phone: [facility] 09-13-2023 10:55-0500 Body weight 69.31 kg Daisy Noel RUNNING SPECIALIST.HELIARC WELDER Work Phone: [facility] 09-13-2023 10:55-0500 Diastolic blood pressure 60 mm[Hg] Daisy Noel RUNNING SPECIALIST.HELIARC WELDER Work Phone: [facility] 09-13-2023 10:55-0500 Heart rate 68 /min Daisy Noel RUNNING SPECIALIST.HELIARC WELDER Work Phone: [facility] 09-13-2023 10:55-0500 Respiratory rate 16 /min Daisy Noel RUNNING SPECIALIST.HELIARC WELDER Work Phone: [facility] 09-13-2023 10:55-0500 Systolic blood pressure 130 mm[Hg] Daisy Noel APRN.HELIARC WELDER Work Phone: [facility] 08-23-2023 13:15-0500 Body temperature 98.4 [degF] Dr. Vera Manrique Work Phone: 7(088)894-102237 [place] [address] 08-23-2023 13:15-0500 Diastolic blood pressure 83 mm[Hg] Dr. Vrea Manrique Work Phone: 2(604)255-831837 [place] [address] 08-23-2023 13:15-0500 Heart rate 62 /min Dr. Vera Manrique Work Phone: 6(613)624-009137 [place] [address] 08-23-2023 13:15-0500 Respiratory rate 16 /min Dr. Vera Manrique Work Phone: 5(754)187-037537 [place] [address] 08-23-2023 13:15-0500 SaO2% (BldA) [Mass fraction] 100 % Dr. Vera Manrique Work Phone: 7(921)387-290037 [place] [address] 08-23-2023 13:15-0500 Systolic blood pressure 169 mm[Hg] Dr. Vera Manrique Work Phone: 5(200)532-915337 [place] [address] 08-23-2023 10:52-0500 Body height 175.[address] Vera Manrique Work Phone: 0(292)625-778737 [place] [address] 08-23-2023 10:52-0500 Body mass index (BMI) [Ratio] 21.8 kg/m2 Dr. Vera Manrique Work Phone: 1(873)104-181537 [place] [address] 08-23-2023 10:52-0500 Body weight [address] Vera Manrique Work Phone: 6(339)894-169537 [place] [address] 07-23-2023 18:25-0500 Body temperature 98.1 [degF] Dr. Vera Manrique Work Phone: 5(407)162-700237 [place] [address] 07-23-2023 18:25-0500 Diastolic blood pressure 55 mm[Hg] Dr. Vera Manrique Work Phone: [facility] 07-23-2023 18:25-0500 Heart rate 69 /min Dr. Vera Manrique Work Phone: [facility] 07-23-2023 18:25-0500 Respiratory rate 17 /min Dr. Vera Manrique Work Phone: [facility] 07-23-2023 18:25-0500 SaO2% (BldA) [Mass fraction] 98 % Dr. Vera Manrique Work Phone: [facility] 07-23-2023 18:25-0500 Systolic blood pressure 126 mm[Hg] Dr. Vera Manrique Work Phone: [facility] 07-11-2023 15:08-0500 Body height 176 cm Nini Masci DO Work Phone: [facility] 07-11-2023 15:08-0500 Body temperature 97.59 [degF] Nini Masci DO Work Phone: [facility] 07-11-2023 15:08-0500 Body weight 71.67 kg Nini Masci DO Work Phone: [facility] 07-11-2023 15:08-0500 Diastolic blood pressure 81 mm[Hg] Nini Masci DO Work Phone: [facility] 07-11-2023 15:08-0500 Heart rate 70 /min Nini Masci DO Work Phone: [facility] 07-11-2023 15:08-0500 SaO2% (BldA) [Mass fraction] 99 % Nini Masci DO Work Phone: [facility] 07-11-2023 15:08-0500 Systolic blood pressure 169 mm[Hg] Nini Masci DO Work Phone: [facility] 07-10-2023 13:35-0500 Diastolic blood pressure 70 mm[Hg] Leeann Reyes APRN.CNP Work Phone: [facility] 07-10-2023 13:35-0500 Heart rate 67 /min Leeann Haagen RUNNING SPECIALIST.HELIARC WELDER Work Phone: [facility] 07-10-2023 13:35-0500 Respiratory rate 16 /min Leeann Haagen RUNNING SPECIALIST.HELIARC WELDER Work Phone: [facility] 07-10-2023 13:35-0500 SaO2% (BldA) [Mass fraction] 96 % Leeann Haagen RUNNING SPECIALIST.HELIARC WELDER Work Phone: [facility] 07-10-2023 13:35-0500 Systolic blood pressure 138 mm[Hg] Leeann Hafarrah RUNNING SPECIALIST.HELIARC WELDER Work Phone: 9(849)308-858998 [place] [address] 06-29-2023 16:58-0500 Diastolic blood pressure 70 mm[Hg] Dr. Vera Manrique Work Phone: 7(364)486-606954 [place] [address] 06-29-2023 16:58-0500 Heart rate 60 /min Dr. Vera Manrique Work Phone: 8(577)706-048954 [place] [address] 06-29-2023 16:58-0500 Respiratory rate 16 /min Dr. Vera Manrique Work Phone: 2(503)021-188854 [place] [address] 06-29-2023 16:58-0500 SaO2% (BldA) [Mass fraction] 97 % Dr. Vera Manrique Work Phone: [facility] 06-29-2023 16:58-0500 Systolic blood pressure 175 mm[Hg] Dr. Vera Manrique Work Phone: 7(104)271-110054 [place] [address] 06-29-2023 13:55-0500 Body height 175.[address] Vera Manrique Work Phone: 5(536)651-929154 [place] [address] 06-29-2023 13:55-0500 Body mass index (BMI) [Ratio] 22.8 kg/m2 Dr. Vera Manrique Work Phone: 5(163)075-021154 [place] [address] 06-29-2023 13:55-0500 Body temperature 98.4 [degF] Dr. Vera Manrique Work Phone: 9(206)073-945354 [place] [address] 06-29-2023 13:55-0500 Body weight 70.[address] Vera Manrique Work Phone: 6(438)887-657454 [place] [address] 06-22-2023 13:22-0500 Body temperature 97 [degF] Dr. Vera Manrique Work Phone: 9(326)155-452837 [place] [address] 06-22-2023 13:22-0500 Diastolic blood pressure 73 mm[Hg] Dr. Vera Manrique Work Phone: 8(720)752-863554 [place] [address] 06-22-2023 13:22-0500 Heart rate 62 /min Dr. Vera Manrique Work Phone: 2(327)207-088454 [place] [address] 06-22-2023 13:22-0500 Respiratory rate 18 /min Dr. Vera Manrique Work Phone: 7(119)382-724837 [place] [address] 06-22-2023 13:22-0500 SaO2% (BldA) [Mass fraction] 100 % Dr. Vera Manrique Work Phone: 5(167)788-139854 [place] [address] 06-22-2023 13:22-0500 Systolic blood pressure 181 mm[Hg] Dr. Vera Manrique Work Phone: 7(023)441-563354 [place] [address] 06-22-2023 10:46-0500 Body height 175.[address] Vera Manrique Work Phone: 0(633)382-876337 [place] [address] 06-22-2023 10:46-0500 Body mass index (BMI) [Ratio] 22.8 kg/m2 Dr. Vera Manrique Work Phone: 9(009)086-366454 [place] [address] 06-22-2023 10:46-0500 Body weight [address] Vera Manrique Work Phone: 0(593)528-063054 [place] [address] 04-03-2023 12:33-0400 Body height 175.3 cm Toya Denbow PA-C Work Phone: [facility] 04-03-2023 12:33-0400 Body temperature 97.5 [degF] Toya Denbow PA-C Work Phone: 1(440)630-287498 [place] [address] 04-03-2023 12:33-0400 Body weight 72.58 kg Toya Denbow PA-C Work Phone: [facility] 04-03-2023 12:33-0400 Diastolic blood pressure 64 mm[Hg] Toya Denbow PA-C Work Phone: [facility] 04-03-2023 12:33-0400 Heart rate 72 /min Toya Denbow PA-C Work Phone: [facility] 04-03-2023 12:33-0400 Respiratory rate 12 /min Toya Denbow PA-C Work Phone: [facility] 04-03-2023 12:33-0400 SaO2% (BldA) [Mass fraction] 97 % Toya Denbow PA-C Work Phone: [facility] 04-03-2023 12:33-0400 Systolic blood pressure 146 mm[Hg] Toyaviolet Bradleybow PA-C Work Phone: [facility] 03-14-2023 11:00-0400 Body height 175.[address] Vera Manrique Work Phone: 5(777)765-031654 [place] [address] 03-14-2023 11:00-0400 Body mass index (BMI) [Ratio] 24.6 kg/m2 Dr. Vera Manrique Work Phone: 5(572)918-184937 [place] [address] 03-14-2023 11:00-0400 Body weight 75.[address] Vera Manrique Work Phone: 0(602)626-031554 [place] [address] 03-14-2023 11:00-0400 Diastolic blood pressure 61 mm[Hg] Dr. Vera Manrique Work Phone: 1(643)816-194454 [place] [address] 03-14-2023 11:00-0400 Heart rate 66 /min Dr. Vera Manrique Work Phone: [facility] 03-14-2023 11:00-0400 Respiratory rate 18 /min Dr. Vera Manrique Work Phone: 6(367)438-271454 [place] [address] 03-14-2023 11:00-0400 Systolic blood pressure 142 mm[Hg] Dr. Vera Manrique Work Phone: 6(566)534-714054 [place] [address] 03-13-2023 13:01-0400 Diastolic blood pressure 60 mm[Hg] Toya Denbow PA-C Work Phone: [facility] 03-13-2023 13:01-0400 Systolic blood pressure 140 mm[Hg] Toya Denbow PA-C Work Phone: [facility] 03-13-2023 12:40-0400 Body height 175.3 cm Toya Denbow PA-C Work Phone: [facility] 03-13-2023 12:40-0400 Body temperature 97.39 [degF] Toya Denbow PA-C Work Phone: [facility] 03-13-2023 12:40-0400 Body weight 74.39 kg Toya Denbow PA-C Work Phone: [facility] 03-13-2023 12:40-0400 Heart rate 65 /min Toya Denbow PA-C Work Phone: [facility] 03-13-2023 12:40-0400 Respiratory rate 12 /min Toya Denbow PA-C Work Phone: [facility] 03-13-2023 12:40-0400 SaO2% (BldA) [Mass fraction] 98 % Toya Denbow PA-C Work Phone: [facility] 03-04-2023 17:37-0400 Body height 175.[address] Vera Manrique Work Phone: [facility] 03-04-2023 17:37-0400 Body mass index (BMI) [Ratio] 24.9 kg/m2 Dr. Vera Manrique Work Phone: [facility] 03-04-2023 17:37-0400 Body temperature 97.3 [degF] Dr. Vera Manrique Work Phone: [facility] 03-04-2023 17:37-0400 Body weight 76.[address] Vera Manrique Work Phone: [facility] 03-04-2023 17:37-0400 Diastolic blood pressure 73 mm[Hg] Dr. Vera Manrique Work Phone: [facility] 03-04-2023 17:37-0400 Heart rate 75 /min Dr. Vera Manrique Work Phone: [facility] 03-04-2023 17:37-0400 Respiratory rate 14 /min Dr. Vera Manrique Work Phone: [facility] 03-04-2023 17:37-0400 SaO2% (BldA) [Mass fraction] 99 % Dr. Vera Manrique Work Phone: [facility] 03-04-2023 17:37-0400 Systolic blood pressure 172 mm[Hg] Dr. Vera Manrique Work Phone: [facility] 01-25-2023 14:45-0400 Body weight 73.94 kg Taco Older RUNNING SPECIALIST.HELIARC WELDER Work Phone: [facility] 01-25-2023 14:45-0400 Diastolic blood pressure 72 mm[Hg] Taco Older RUNNING SPECIALIST.HELIARC WELDER Work Phone: [facility] 01-25-2023 14:45-0400 Heart rate 80 /min Taco Older RUNNING SPECIALIST.HELIARC WELDER Work Phone: [facility] 01-25-2023 14:45-0400 Respiratory rate 16 /min Taco Older RUNNING SPECIALIST.HELIARC WELDER Work Phone: [facility] 01-25-2023 14:45-0400 Systolic blood pressure 148 mm[Hg] Taco Older RUNNING SPECIALIST.HELIARC WELDER Work Phone: [facility] 11-16-2022 13:54-0400 Body weight 73.94 kg Taco Older RUNNING SPECIALIST.HELIARC WELDER Work Phone: [facility] 11-16-2022 13:54-0400 Diastolic blood pressure 66 mm[Hg] Taco Older RUNNING SPECIALIST.HELIARC WELDER Work Phone: [facility] 11-16-2022 13:54-0400 Heart rate 68 /min Taco Older RUNNING SPECIALIST.HELIARC WELDER Work Phone: [facility] 11-16-2022 13:54-0400 Respiratory rate 16 /min Taco Older RUNNING SPECIALIST.HELIARC WELDER Work Phone: [facility] 11-16-2022 13:54-0400 Systolic blood pressure 138 mm[Hg] Taco Older RUNNING SPECIALIST.HELIARC WELDER Work Phone: [facility] 10-02-2022 23:29-0500 SaO2% (BldA) [Mass fraction] 99 % Dr. Vera Manrique Work Phone: 2(624)410-897054 [place] [address] 10-02-2022 19:18-0500 Body height 175.[address] Vera Manrique Work Phone: 2(277)822-755837 [place] [address] 10-02-2022 19:18-0500 Body mass index (BMI) [Ratio] 24.9 kg/m2 Dr. Vera Manrique Work Phone: 8(733)335-548337 [place] [address] 10-02-2022 19:18-0500 Body temperature 97.3 [degF] Dr. Vera Manrique Work Phone: 4(596)392-697237 [place] [address] 10-02-2022 19:18-0500 Body weight 76.[address] Vera Manrique Work Phone: 9(957)754-993937 [place] [address] 10-02-2022 19:18-0500 Diastolic blood pressure 84 mm[Hg] Dr. Vera Manrique Work Phone: 4(022)108-585337 [place] [address] 10-02-2022 19:18-0500 Heart rate 73 /min Dr. Vera Manrique Work Phone: 4(773)010-506437 [place] [address] 10-02-2022 19:18-0500 Respiratory rate 16 /min Dr. Vera Manrique Work Phone: 5(457)010-441237 [place] [address] 10-02-2022 19:18-0500 Systolic blood pressure 174 mm[Hg] Dr. Vera Manrique Work Phone: 5(471)647-975637 [place] [address] 09-30-2022 21:33-0500 Diastolic blood pressure 70 mm[Hg] Dr. Vera Manrique Work Phone: 1(709)482-265537 [place] [address] 09-30-2022 21:33-0500 Heart rate 77 /min Dr. Vera Manrique Work Phone: 7(409)808-212237 [place] [address] 09-30-2022 21:33-0500 Respiratory rate 21 /min Dr. Vera Manrique Work Phone: 0(122)376-650437 [place] [address] 09-30-2022 21:33-0500 SaO2% (BldA) [Mass fraction] 98 % Dr. Vera Manrique Work Phone: 8(615)469-778537 [place] [address] 09-30-2022 21:33-0500 Systolic blood pressure 155 mm[Hg] Dr. Vera Manrique Work Phone: 9(333)016-106837 [place] [address] 09-30-2022 15:57-0500 Body height 172.[address] Vera Manrique Work Phone: 4(193)790-737637 [place] [address] 09-30-2022 15:57-0500 Body mass index (BMI) [Ratio] 25.2 kg/m2 Dr. Vera Manrique Work Phone: 4(144)477-305037 [place] [address] 09-30-2022 15:57-0500 Body temperature 97.2 [degF] Dr. Vera Manrique Work Phone: 1(726)058-217537 [place] [address] 09-30-2022 15:57-0500 Body weight 75.[address] Vera Manrique Work Phone: 3(573)656-580837 [place] [address] 09-30-2022 15:48-0500 Diastolic blood pressure 81 mm[Hg] Dr. Vera Manrique Work Phone: 2(772)838-350737 [place] [address] 09-30-2022 15:48-0500 SaO2% (BldA) [Mass fraction] 97 % Dr. Vera Manrique Work Phone: 1(138)182-131137 [place] [address] 09-30-2022 15:48-0500 Systolic blood pressure 182 mm[Hg] Dr. Vera Manrique Work Phone: 9(088)520-113137 [place] [address] 09-30-2022 15:12-0500 Body mass index (BMI) [Ratio] 25.2 kg/m2 Dr. Vera Manrique Work Phone: [facility] 09-30-2022 15:12-0500 Body temperature 97.8 [degF] Dr. Vera Manrique Work Phone: [facility] 09-30-2022 15:12-0500 Body weight 75.[address] Vear Manrique Work Phone: [facility] 09-30-2022 15:12-0500 Heart rate 75 /min Dr. Vera Manrique Work Phone: [facility] 09-30-2022 15:12-0500 Respiratory rate 17 /min Dr. Vera Manrique Work Phone: [facility] 09-20-2022 15:05-0500 Body height 175.3 cm Vera Manrique MD Work Phone: [facility] 09-20-2022 15:05-0500 Body temperature 96.91 [degF] Vera Manrique MD Work Phone: [facility] 09-20-2022 15:05-0500 Body weight 71.22 kg Vera Manrique MD Work Phone: [facility] 09-20-2022 15:05-0500 Diastolic blood pressure 50 mm[Hg] Vera Manrique MD Work Phone: [facility] 09-20-2022 15:05-0500 Heart rate 87 /min Vera Manrique MD Work Phone: [facility] 09-20-2022 15:05-0500 Respiratory rate 12 /min Vera Manrique MD Work Phone: [facility] 09-20-2022 15:05-0500 SaO2% (BldA) [Mass fraction] 98 % Vera Manrique MD Work Phone: [facility] 09-20-2022 15:05-0500 Systolic blood pressure 108 mm[Hg] Vera Manrique MD Work Phone: [facility] 09-14-2022 17:39-0500 Diastolic blood pressure 78 mm[Hg] Dr. Vera Manrique Work Phone: [facility] 09-14-2022 17:39-0500 Heart rate 81 /min Dr. Vera Manrique Work Phone: 6(533)194-782437 [place] [address] 09-14-2022 17:39-0500 Respiratory rate 16 /min Dr. Vera Manrique Work Phone: 1(120)013-142937 [place] [address] 09-14-2022 17:39-0500 SaO2% (BldA) [Mass fraction] 97 % Dr. Vera Manrique Work Phone: 0(330)618-485837 [place] [address] 09-14-2022 17:39-0500 Systolic blood pressure 148 mm[Hg] Dr. Vera Manrique Work Phone: 3(378)362-973437 [place] [address] 09-14-2022 10:33-0500 Body height 172.[address] Vera Manrique Work Phone: 0(484)472-245237 [place] [address] 09-14-2022 10:33-0500 Body mass index (BMI) [Ratio] 24.5 kg/m2 Dr. Vera Manrique Work Phone: 8(362)825-932237 [place] [address] 09-14-2022 10:33-0500 Body temperature 98.7 [degF] Dr. Vera Manrique Work Phone: 7(196)974-558637 [place] [address] 09-14-2022 10:33-0500 Body weight [address] Vera Manrique Work Phone: 5(120)270-138254 [place] [address] 09-08-2022 12:05-0500 Body temperature 97.59 [degF] Vera Manrique MD Work Phone: [facility] 09-08-2022 12:05-0500 Body weight 72.76 kg Vera Manrique MD Work Phone: [facility] 09-08-2022 12:05-0500 Diastolic blood pressure 62 mm[Hg] Vera Manrique MD Work Phone: [facility] 09-08-2022 12:05-0500 Heart rate 72 /min Vera Manrique MD Work Phone: [facility] 09-08-2022 12:05-0500 Respiratory rate 16 /min Vera Manrique MD Work Phone: [facility] 09-08-2022 12:05-0500 SaO2% (BldA) [Mass fraction] 98 % Vera Manrique MD Work Phone: [facility] 09-08-2022 12:05-0500 Systolic blood pressure 124 mm[Hg] Vera Manrique MD Work Phone: [facility] 03-22-2022 14:08-0400 Body temperature 98.2 [degF] Dr. Vera Manrique Work Phone: [facility] Work Phone: 03-22-2022 14:08-0400 Diastolic blood pressure 74 mm[Hg] Dr. Vera Manrique Work Phone: [facility] Work Phone: 03-22-2022 14:08-0400 Heart rate 79 /min Dr. Vera Manrique Work Phone: [facility] Work Phone: 03-22-2022 14:08-0400 Respiratory rate 18 /min Dr. Vera Manrique Work Phone: [facility] Work Phone: 03-22-2022 14:08-0400 SaO2% (BldA) [Mass fraction] 94 % Dr. Vera Manrique Work Phone: [facility] Work Phone: 03-22-2022 14:08-0400 Systolic blood pressure 144 mm[Hg] Dr. Vera Manrique Work Phone: [facility] Work Phone: 03-22-2022 03:41-0400 Body weight 76.[address] Vera Manrique Work Phone: [facility] Work Phone: 03-20-2022 11:30-0400 Body height 175.[address] Vera Manrique Work Phone: [facility] Work Phone: 03-18-2022 16:34-0400 Body mass index (BMI) [Ratio] 24.3 kg/m2 Dr. Vera Manrique Work Phone: [facility] Work Phone: 03-18-2022 13:47-0400 Body temperature 99.3 [degF] Dr. Vera Manrique Work Phone: [facility] Work Phone: 03-18-2022 13:47-0400 Diastolic blood pressure 71 mm[Hg] Dr. Vera Manrique Work Phone: [facility] Work Phone: 03-18-2022 13:47-0400 Heart rate 83 /min Dr. Vera Manrique Work Phone: [facility] Work Phone: 03-18-2022 13:47-0400 Respiratory rate 24 /min Dr. Vera Manrique Work Phone: [facility] Work Phone: 03-18-2022 13:47-0400 SaO2% (BldA) [Mass fraction] 97 % Dr. Vera Manrique Work Phone: [facility] Work Phone: 03-18-2022 13:47-0400 Systolic blood pressure 162 mm[Hg] Dr. Vera Manrique Work Phone: [facility] Work Phone: 03-18-2022 10:47-0400 Body height 175.[address] Vera Manrique Work Phone: [facility] Work Phone: 03-18-2022 10:47-0400 Body mass index (BMI) [Ratio] 25.3 kg/m2 Dr. Vera Manrique Work Phone: [facility] Work Phone: 03-18-2022 10:47-0400 Body weight 77.[address] Vera Manrique Work Phone: [facility] Work Phone: 03-12-2022 12:56-0400 Heart rate 88 /min Dr. Vera Manrique Work Phone: [facility] Work Phone: 03-12-2022 11:25-0400 SaO2% (BldA) [Mass fraction] 96 % Dr. Vera Manrique Work Phone: [facility] Work Phone: 03-12-2022 10:16-0400 Body temperature 99 [degF] Dr. Vera Manrique Work Phone: [facility] Work Phone: 03-12-2022 10:16-0400 Diastolic blood pressure 78 mm[Hg] Dr. Vera Manrique Work Phone: [facility] Work Phone: 03-12-2022 10:16-0400 Respiratory rate 16 /min Dr. Vera Manrique Work Phone: [facility] Work Phone: 03-12-2022 10:16-0400 Systolic blood pressure 161 mm[Hg] Dr. Vera Manrique Work Phone: [facility] Work Phone: 03-11-2022 22:51-0400 Body mass index (BMI) [Ratio] 26.2 kg/m2 Dr. Vera Manrique Work Phone: [facility] Work Phone: 03-11-2022 15:59-0400 Body height 175.[address] Vera Manrique Work Phone: [facility] Work Phone: 03-11-2022 15:59-0400 Body weight 80.[address] Vera Manrique Work Phone: [facility] Work Phone: 03-11-2022 14:00-0400 Body temperature 97.9 [degF] Dr. Vera Manrique Work Phone: [facility] Work Phone: 03-11-2022 14:00-0400 Diastolic blood pressure 77 mm[Hg] Dr. Vera Manrique Work Phone: [facility] Work Phone: 03-11-2022 14:00-0400 Heart rate 78 /min Dr. Vera Manrique Work Phone: [facility] Work Phone: 03-11-2022 14:00-0400 Respiratory rate 24 /min Dr. Vera Manrique Work Phone: [facility] Work Phone: 03-11-2022 14:00-0400 SaO2% (BldA) [Mass fraction] 96 % Dr. Vera Manrique Work Phone: [facility] Work Phone: 03-11-2022 14:00-0400 Systolic blood pressure 175 mm[Hg] Dr. Vera Manrique Work Phone: [facility] Work Phone: 03-11-2022 10:12-0400 Body height 175.[address] Vera Manrique Work Phone: [facility] Work Phone: 03-11-2022 10:12-0400 Body mass index (BMI) [Ratio] 24.5 kg/m2 Dr. Vera Manrique Work Phone: [facility] Work Phone: 03-11-2022 10:12-0400 Body weight 75.[address] Vera Manrique Work Phone: [facility] Work Phone: 02-21-2022 10:54-0400 Body mass index (BMI) [Ratio] 25.4 kg/m2 Dr. Vera Manrique Work Phone: [facility] Work Phone: 02-21-2022 10:54-0400 Body weight 78.[address] Vera Manrique Work Phone: [facility] Work Phone: 02-21-2022 10:54-0400 Diastolic blood pressure 78 mm[Hg] Dr. Vera Manrique Work Phone: [facility] Work Phone: 02-21-2022 10:54-0400 Heart rate 72 /min Dr. Vera Manrique Work Phone: [facility] Work Phone: 02-21-2022 10:54-0400 Systolic blood pressure 120 mm[Hg] Dr. Vera Manrique Work Phone: [facility] Work Phone: 11-21-2021 00:23-0400 Diastolic blood pressure 81 mm[Hg] Dr. Vera Manrique Work Phone: [facility] Work Phone: 11-21-2021 00:23-0400 Heart rate 75 /min Dr. Vera Manrique Work Phone: [facility] Work Phone: 11-21-2021 00:23-0400 Respiratory rate 16 /min Dr. Vera Manrique Work Phone: [facility] Work Phone: 11-21-2021 00:23-0400 SaO2% (BldA) [Mass fraction] 97 % Dr. Vera Manrique Work Phone: [facility] Work Phone: 11-21-2021 00:23-0400 Systolic blood pressure 159 mm[Hg] Dr. Vera Manrique Work Phone: [facility] Work Phone: 11-20-2021 21:05-0400 Body height 175.[address] Vera Manrique Work Phone: [facility] Work Phone: 11-20-2021 21:05-0400 Body mass index (BMI) [Ratio] 25.8 kg/m2 Dr. Vera Manrique Work Phone: [facility] [facility] Work Phone: 11-20-2021 21:05-0400 Body temperature 97.9 [degF] Dr. Vera Manrique Work Phone: [facility] Work Phone: 11-20-2021 21:05-0400 Body weight 79.[address] Vera Manrique Work Phone: [facility] Work Phone: 11-15-2021 18:12-0400 Diastolic blood pressure 77 mm[Hg] Dr. Vera Manrique Work Phone: [facility] Work Phone: 11-15-2021 18:12-0400 Heart rate 81 /min Dr. Vera Manrique Work Phone: [facility] Work Phone: 11-15-2021 18:12-0400 Respiratory rate 17 /min Dr. Vera Manrique Work Phone: [facility] Work Phone: 11-15-2021 18:12-0400 SaO2% (BldA) [Mass fraction] 97 % Dr. Vera Manrique Work Phone: [facility] Work Phone: 11-15-2021 18:12-0400 Systolic blood pressure 170 mm[Hg] Dr. Vera Manrique Work Phone: [facility] Work Phone: 04-11-2022 16:42-0400 Body height 175.[address] Vera Manrique Work Phone: [facility] Work Phone: 11-15-2021 16:42-0400 Body mass index (BMI) [Ratio] 25.9 kg/m2 Dr. Vera Manrique Work Phone: [facility] Work Phone: 11-15-2021 16:42-0400 Body temperature 98.7 [degF] Dr. Vera aMnrique Work Phone: [facility] Work Phone: 11-15-2021 16:42-0400 Body weight 79.[address] Vera Manrique Work Phone: [facility] Work Phone: 08-02-2021 15:40-0500 Body mass index (BMI) [Ratio] 25.9 kg/m2 Dr. Vera Manrique Work Phone: [facility] Work Phone: 08-02-2021 15:40-0500 Body temperature 98.2 [degF] Dr. Vera Manrique Work Phone: [facility] Work Phone: 08-02-2021 15:40-0500 Body weight 79.[address] Vera Manrique Work Phone: [facility] Work Phone: 08-02-2021 15:40-0500 Diastolic blood pressure 125 mm[Hg] Dr. Vera Manrique Work Phone: [facility] Work Phone: 08-02-2021 15:40-0500 Heart rate 80 /min Dr. Vera Manrique Work Phone: [facility] Work Phone: 08-02-2021 15:40-0500 Respiratory rate 14 /min Dr. Vera Manrique Work Phone: [facility] Work Phone: 08-02-2021 15:40-0500 SaO2% (BldA) [Mass fraction] 96 % Dr. Vera Manrique Work Phone: [facility] Work Phone: 08-02-2021 15:40-0500 Systolic blood pressure 147 mm[Hg] Dr. Vera Manrique Work Phone: [facility] Work Phone: 02-18-2021 15:18-0400 Body mass index (BMI) [Ratio] 24.5 kg/m2 Dr. Vera Manrique Work Phone: [facility] Work Phone: Encounters Encounter Date Encounter Type Care Provider Facility Start: 06-16-2025 End: 06-16-2025 ambulatory NINI A TANI Facility:[facility] Start: 05-26-2025 End: 05-26-2025 ambulatory JANICE HODGES Facility:[facility] Start: 05-20-2025 End: 05-20-2025 ambulatory NINI FREIRE Facility:[facility] Start: 05-12-2025 End: 05-12-2025 ambulatory TACO TATUM Facility:[facility] Start: 05-12-2025 End: 05-12-2025 [facility] T[facility]O [facility] Facility:[facility] Start: 05-12-2025 Patient encounter procedure TACO Hernandez [facility] Start: 05-06-2025 End: 05-06-2025 ambulatory NINI FREIRE Facility:[facility] Start: 04-28-2025 End: 05-03-2025 Evaluation and management of inpatient DA TELLEZ MD [facility] Start: 04-28-2025 End: 04-28-2025 Emergency department patient visit Vera Manrique Facility:[facility] Start: 04-22-2025 End: 04-22-2025 ambulatory Injection Calderon [facility] Work Phone: Hematology/Oncology Comment on above: Anemia associated wi th stage 5 chronic renal failure (HCC) (Primary Dx) Anemia associated wi th stage 5 chronic renal failure (HCC) (Primary Dx); Stage 5 chronic kidney disease (HCC) Start: 04-22-2025 End: 04-22-2025 Patient encounter procedure Octavio Monsalve Work Phone: Hematology/Oncology Start: 04-22-2025 End: 04-22-2025 ambulatory NINI A [facility] Facility[facility] Start: 04-16-2025 End: 04-16-2025 ambulatory Injection [facility]on [facility] Work Phone: Hematology/Oncology Comment on above: Anemia associated wi th stage 5 chronic renal failure (HCC) (Primary Dx) Start: 04-15-2025 End: 04-15-2025 ambulatory FLORA A [facility] Facility:[facility] Start: 04-08-2025 End: 04-08-2025 ambulatory Injection [facility]on [facility] Work Phone: Hematology/Oncology Comment on above: Anemia associated wi th stage 5 chronic renal failure (HCC) (Primary Dx) Start: 04-08-2025 End: 04-08-2025 ambulatory FLORA A [facility] Facility:[facility] Start: 04-03-2025 End: 04-03-2025 Telephone encounter Vera Manrique MD Work Phone: Internal Medicine [place] Comment on above: Orders (Incontinence supplies - pull ups) Start: 04-01-2025 End: 04-01-2025 ambulatory Injection [facility]on [facility] Work Phone: Hematology/Oncology Comment on above: Anemia associated wi th stage 5 chronic renal failure (HCC) (Primary Dx) Start: 03-26-2025 ambulatory Consuelo MILNER Facility:[facility] Start: 03-25-2025 End: 03-25-2025 ambulatory Injection [facility] Work Phone: Hematology/Oncology Comment on above: Anemia associated wi th stage 5 chronic renal failure (HCC) (Primary Dx) Anemia associated wi th stage 5 chronic renal failure (HCC) (Primary Dx); Stage 5 chronic kidney disease (HCC) Start: 03-25-2025 End: 03-25-2025 Patient encounter procedure Octavio Monsalve Work Phone: Hematology/Oncology Start: 03-25-2025 End: 03-25-2025 ambulatory NINI FREIRE Facility:[facility] Start: 03-20-2025 End: 03-24-2025 Refill Omid Olmos DO Work Phone: Kidney Medicine Comment on above: Refill Request Start: 03-19-2025 End: 03-19-2025 Emergency department patient visit Dr. Vera Manrique MD Work Phone: -Emergency Department Work Phone: Start: 03-14-2025 End: 03-17-2025 Follow-up encounter Janice Hodges APRN.HELIARC WELDER Work Phone: Kidney Medicine Start: 03-13-2025 End: 03-13-2025 ambulatory JANICE HODGES Facility:[facility] Start: 03-13-2025 End: 03-13-2025 ambulatory JANICE HODGES Facility:[facility] Start: 03-11-2025 End: 03-11-2025 ambulatory NINI FREIRE Facility:[facility] Start: 02-27-2025 End: 02-27-2025 Telephone encounter Darlene Carpenter [facility] Work Phone: [facility] Comment on above: Missed Appointment ( Pharmacist Visit Rescheduling) Start: 02-25-2025 End: 02-25-2025 ambulatory Injection [facility] Work Phone: Hematology/Oncology Comment on above: Anemia associated wi th stage 5 chronic renal failure (HCC) (Primary Dx) Anemia associated wi th stage 5 chronic renal failure (HCC) (Primary Dx); Stage 5 chronic kidney disease (HCC) Start: 02-25-2025 End: 02-25-2025 Follow-up encounter Janice Hodges APRN.HELIARC WELDER Work Phone: Kidney Medicine Start: 02-25-2025 End: 02-25-2025 Patient encounter procedure Octavio Monsalve Work Phone: Hematology/Oncology Start: 02-25-2025 End: 02-25-2025 ambulatory NINI FREIRE Facility:[facility] Start: 02-18-2025 End: 02-18-2025 ambulatory VERA MANRIQUE Facility:[facility] Start: 02-18-2025 End: 02-18-2025 ambulatory Injection [facility] Work Phone: Hematology/Oncology Comment on above: Anemia associated wi th stage 5 chronic renal failure (HCC) (Primary Dx) Start: 02-12-2025 End: 02-12-2025 Refill Vera Manrique MD Work Phone: Internal Medicine [place] Comment on above: Refill Request Start: 02-11-2025 End: 02-11-2025 ambulatory Injection [facility] Work Phone: Hematology/Oncology Comment on above: Anemia associated wi th stage 5 chronic renal failure (HCC) (Primary Dx) Start: 02-11-2025 End: 02-11-2025 ambulatory [facility] Facility:[facility] Start: 02-04-2025 End: 02-04-2025 ambulatory Injection [facility] Work Phone: Hematology/Oncology Comment on above: Anemia associated wi th stage 5 chronic renal failure (HCC) (Primary Dx) Start: 01-29-2025 End: 01-29-2025 Subsequent hospital visit by physician [facility] Work Phone: Cardiology Comment on above: Pacemaker reprogramm ing/check [Z45.018] Start: 01-29-2025 End: 01-29-2025 Telephone encounter Rc Shrestha MD Work Phone: Vascular Surgery Comment on above: Appointment Start: 01-27-2025 End: 01-27-2025 Telephone encounter Va Marinelli APRN.CNP Work Phone: Pre Anesthesia Comment on above: Pacemaker Check Start: 01-23-2025 End: 01-23-2025 Preprocedural examination done Pac [place] 1 Work Phone: [facility] Start: 01-23-2025 End: 01-23-2025 Refill Vera Manrique MD Work Phone: Pre Anesthesia Comment on above: Opened In Error Pre-operative examin ation (Primary Dx); Essential hypertension, benign; PSVT (paroxysmal supraventricular tachycardia) (HCC); Pure hypercholesterolemia; Right thalamic infarction (HCC); Diabetic polyneuropathy associated with type 2 diabetes mellitus (HCC); Functional dyspepsia; ICD (implantable cardioverter-defibrillator) in place; Anemia associated with stage 5 chronic renal failure (HCC); Coronary artery disease involving hyd[place]urg coronary artery of hyd[place] heart without angina pectoris; TIA (transient ischemic attack); Physical deconditioning; Schatzki's ring; Hiatal hernia; Incontinence of feces, unspecified fecal incontinence type; History of embolism; ESRD (end stage renal disease) (HCC) Start: 01-21-2025 End: 01-21-2025 ambulatory Injection [facility]on [facility] Work Phone: Hematology/Oncology Comment on above: Anemia associated wi th stage 5 chronic renal failure (HCC) (Primary Dx) 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) (Primary Dx); Anemia associated with stage 4 chronic renal failure (HCC); Iron malabsorption (HCC) Start: 01-21-2025 End: 01-21-2025 Patient encounter procedure Octavio Monsalve Work Phone: Hematology/Oncology Start: 01-21-2025 End: 01-21-2025 annabel MANRIQUE Facility:[facility] Start: 01-16-2025 End: 01-20-2025 Admission to same day surgery center Mila Kaiser RN Pre Anesthesia Comment on above: Preparations For Harley mandy (PACC) Start: 01-16-2025 End: 01-20-2025 ambulatory Mila Kaiser RN Pre Anesthesia Start: 01-16-2025 End: 01-16-2025 Telephone encounter Mila Kaiser RN Pre Anesthesia Comment on above: Preparations For Harley mandy (Preoperative Plavix instructions) Preparations For Harley mandy (External EKG and pacemaker check ) Start: 01-14-2025 End: 01-14-2025 ambulatory Injection [facility] Work Phone: Hematology/Oncology Comment on above: Anemia associated wi th stage 5 chronic renal failure (HCC) (Primary Dx) Start: 01-14-2025 End: 01-14-2025 Telephone encounter Vera Manrique MD Work Phone: Internal Medicine [place] Comment on above: order for incontinen ce supplies Start: 01-10-2025 End: 01-10-2025 Orders Only Rc Shrestha MD Work Phone: Vascular Surgery Comment on above: ESRD (end stage mai l disease) (HCC) (Primary Dx) Chronic kidney disea se, stage 5 (HCC); Hypertensive heart and chronic kidney disease without heart failure, with stage 5 chronic kidney disease, or end stage renal disease (HCC); Diabetic nephropathy associated with type 2 diabetes mellitus (HCC); Bilateral carotid artery stenosis; Complete heart block (HCC); 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; Mixed hyperlipidemia Start: 01-07-2025 End: 01-07-2025 ambulatory Injection [facility] Work Phone: Hematology/Oncology Comment on above: Anemia associated wi th stage 5 chronic renal failure (HCC) (Primary Dx) Start: 01-07-2025 End: 01-07-2025 Follow-up encounter Carline Cason RN Kidney Medicine Comment on above: Care Coordination (V asc consult/vein mapping) Start: 01-06-2025 End: 01-06-2025 ambulatory JANICE HODGES Facility:[facility] Start: 01-02-2025 End: 01-02-2025 Patient encounter procedure Janice Hodges RUNNING SPECIALIST.HELIARC WELDER Work Phone: Kidney Medicine Comment on above: Type 2 diabetes librado itus 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, with long-term current use of insulin (HCC) (Primary Dx); Persistent proteinuria; Primary hypertension; Benign prostatic hyperplasia without lower urinary tract symptoms; Metabolic acidosis; Iron malabsorption (HCC); Anemia associated with stage 5 chronic renal failure (HCC); Secondary renal hyperparathyroidism (HCC); Hyperlipidemia, unspecified hyperlipidemia type; Hypervitaminosis D Start: 01-02-2025 End: 01-02-2025 ambulatory JANICE HODGES Facility:[facility] Start: 12-31-2024 End: 12-31-2024 Office outpatient visit 25 minutes Vera Manrique MD Work Phone: Internal Medicine [place] Comment on above: Incontinence of fece s, unspecified fecal incontinence type (Primary Dx); Diarrhea, unspecified type; Urinary incontinence, unspecified type; 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); Type 2 diabetes mellitus with stage 3b chronic kidney disease, with long-term current use of insulin (HCC); Pressure injury of buttock, stage 1, unspecified laterality; Chronic kidney disease, stage 5 (HCC); Anemia in chronic kidney disease, unspecified CKD stage Start: 12-31-2024 End: 12-31-2024 ambulatory Injection [facility] Work Phone: Hematology/Oncology Comment on above: Anemia associated wi th stage 5 chronic renal failure (HCC) (Primary Dx) Start: 12-24-2024 End: 12-24-2024 ambulatory VERA MANRIQUE Facility:[facility] Start: 12-24-2024 End: 01-01-2025 Telephone encounter Vera Manrique MD Work Phone: Family Medicine [place] Comment on above: incontinence suppy o rder Start: 12-23-2024 End: 12-23-2024 Emergency department patient visit Dr. Vera Manrique MD Work Phone: -Emergency Department Work Phone: Start: 12-20-2024 End: 12-20-2024 ambulatory Treatment Rm 17 [facility] [employer] Work Phone: Hematology/Oncology Comment on above: Iron malabsorption ( HCC) (Primary Dx); Anemia associated with stage 5 chronic renal failure (HCC) Start: 2024 End: 2024 ambulatory Treatment Rm 16 [facility] [employer] Work Phone: Hematology/Oncology Comment on above: Iron malabsorption ( HCC) (Primary Dx); Anemia associated with stage 5 chronic renal failure (HCC) Start: 12-16-2024 End: 12-16-2024 ambulatory Treatment Rm 17 [facility] [employer] Work Phone: Hematology/Oncology Comment on above: Iron malabsorption ( HCC) (Primary Dx); Anemia associated with stage 5 chronic renal failure (HCC) Refill Request Start: 12-13-2024 End: 12-13-2024 ambulatory Treatment Rm 15 [facility] Work Phone: Hematology/Oncology Comment on above: Iron malabsorption ( HCC) (Primary Dx); Anemia associated with stage 5 chronic renal failure (HCC) Start: 12-12-2024 End: 2024 Telephone encounter Vera Manrique MD Work Phone: Internal Medicine [place] Comment on above: Patient Question Results Start: 12-11-2024 End: 12-12-2024 Refill Vera Manrique MD Work Phone: Hematology/Oncology Comment on above: Refill Request Anemia associated wi th stage 5 chronic renal failure (HCC) (Primary Dx) AVS Start: 12-05-2024 End: 02-04-2025 Follow-up encounter Janice Hodges APRN.HELIARC WELDER Work Phone: Kidney Medicine Start: 12-04-2024 End: 12-04-2024 ambulatory [facility] Facility:[facility] Start: 12-03-2024 End: 12-03-2024 Telephone encounter Harshil West DO Work Phone: Vascular Surgery Comment on above: Appointment (Mailed patient appointment information as requested. ) Patient Question Start: 11-27-2024 End: 11-27-2024 Orders Only Janice Hodges APRN.HELIARC WELDER Work Phone: Kidney Medicine Comment on above: Type 2 diabetes librado itus 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, with long-term current use of insulin (HCC) (Primary Dx) Start: 11-26-2024 End: 11-26-2024 Orders Only Janice Hodges APRN.HELIARC WELDER Work Phone: Kidney Medicine Comment on above: Type 2 diabetes librado itus 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, with long-term current use of insulin (HCC) (Primary Dx) Patient Update Start: 11-21-2024 End: 11-21-2024 Follow-up encounter Janice Hodges APRN.HELIARC WELDER Work Phone: Kidney Medicine Start: 11-20-2024 End: 11-20-2024 ambulatory VERA MANRIQUE Facility:[facility] Start: 11-14-2024 End: 11-14-2024 Telephone encounter Carline Cason RN Kidney Medicine Comment on above: Patient Update (Lab reminder) Start: 11-05-2024 End: 11-06-2024 Refill Vera Manrique MD Work Phone: Internal Medicine [place] Comment on above: Refill Request Start: 10-31-2024 End: 10-31-2024 Orders Only Janice Hodges APRN.HELIARC WELDER Work Phone: Kidney Medicine Comment on above: Type 2 diabetes librado itus 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, with long-term current use of insulin (HCC) (Primary Dx); Persistent proteinuria; Primary hypertension; Benign prostatic hyperplasia without lower urinary tract symptoms; Metabolic acidosis; Anemia of renal disease; Decreased appetite Start: 10-28-2024 End: 10-28-2024 ambulatory Octavio Monsalve Work Phone: Hematology/Oncology Comment on above: 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) (Primary Dx); Anemia associated with stage 4 chronic renal failure (HCC) (HCC) Start: 10-28-2024 End: 10-28-2024 Patient encounter procedure Octavio Monsalve Work Phone: Hematology/Oncology Start: 10-23-2024 End: 10-23-2024 Telephone encounter Nini Freire DO Work Phone: Hematology/Oncology Start: 10-22-2024 End: 10-22-2024 ambulatory Carline Cason RN Kidney Medicine Start: 10-22-2024 End: 10-22-2024 Coordination of care plan Carline Cason RN Kidney Medicin e Comment on above: Care Coordination (O ptimal Transition Program ) Start: 10-21-2024 End: 10-22-2024 Follow-up encounter Janice Hodges APRN.HELIARC WELDER Work Phone: Kidney Medicine Start: 10-21-2024 End: 10-21-2024 ambulatory JANICE HODGES Facility:[facility] Start: 10-11-2024 End: 11-07-2024 Telephone encounter Kasey KELLEY Navigation Comment on above: Patient Update Start: 10-09-2024 End: 10-09-2024 ambulatory COOKIE DELACRUZ Facility:[facility] Start: 10-09-2024 End: 10-09-2024 Patient encounter procedure Cookie Delacruz RUNNING SPECIALIST.HELIARC WELDER Work Phone: Endocrinology Comment on above: Diabetes mellitus tr eated with insulin (HCC) (Primary Dx) Start: 10-08-2024 End: 10-08-2024 ambulatory ANGIE MERCADO Facility:[facility] Start: 10-08-2024 End: 10-08-2024 Office outpatient visit 15 minutes Angie Mercado PA-C Work Phone: Family Medicine [place] Comment on above: Diabetic polyneuropa thy associated with type 2 diabetes mellitus (HCC) (Primary Dx); Other iron deficiency anemia; Anemia associated with stage 4 chronic renal failure (HCC) (HCC) Start: 10-04-2024 End: 10-10-2024 Telephone encounter Vera Manrique MD Work Phone: Internal Medicine [place] Comment on above: Orders Start: 10-03-2024 End: 10-03-2024 Refill Omid Olmos DO Work Phone: Kidney Medicine Comment on above: Refill Request Start: 10-01-2024 End: 10-01-2024 ambulatory DONNA HAYNES Facility:[facility] Start: 09-30-2024 End: 09-30-2024 Patient encounter procedure Janice Hodges RUNNING SPECIALIST.HELIARC WELDER Work Phone: Kidney Medicine Comment on above: Type 2 diabetes librado itus 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, with long-term current use of insulin (HCC) (Primary Dx); Persistent proteinuria; Primary hypertension; Benign prostatic hyperplasia without lower urinary tract symptoms; Metabolic acidosis; Anemia of renal disease; Secondary renal hyperparathyroidism (HCC); Hyperlipidemia, unspecified hyperlipidemia type; Hypervitaminosis D Start: 09-30-2024 End: 09-30-2024 ambulatory JANICE HODGES Facility:[facility] Start: 09-25-2024 End: 09-25-2024 Telephone encounter Octaviojaqueline Monsalve Work Phone: Hematology/Oncology Start: 09-24-2024 End: 09-24-2024 ambulatory OCTAVIO MONSALVE Facility:[facility] Start: 09-24-2024 End: 09-24-2024 Office outpatient visit 15 minutes Angie Mercado PA-C Work Phone: Family Medicine [place] Comment on above: Screening for colon cancer (Primary Dx); Screening for depression; Encounter for screening examination for other mental health and behavioral disorders; Diarrhea, unspecified type; Other iron deficiency anemia; Essential hypertension, benign; Pure hypercholesterolemia; Type 2 diabetes mellitus with stage 3b chronic kidney disease, with long-term current use of insulin (HCC); Anemia associated with stage 4 chronic renal failure (HCC) (HCC) Start: 09-20-2024 ambulatory [facility] Facility[facility] Start: 09-04-2024 End: 09-05-2024 Refill Vera Manrique MD Work Phone: Internal Medicine [place] Comment on above: Refill Request Start: 09-03-2024 End: 09-04-2024 Refill Vera Manrique MD Work Phone: Internal Medicine [place] Comment on above: Refill Request Start: 08-27-2024 End: 08-28-2024 Telephone encounter Janice Hodges APRN.CNP Work Phone: General Surgery Start: 08-15-2024 End: 08-15-2024 Emergency department patient visit [facility] Facility:[facility] Start: 08-06-2024 End: 08-06-2024 E-mail encounter from caregiver Anthony Goodwin PA-C Work Phone: Urology Start: 08-06-2024 End: 08-09-2024 Patient encounter procedure Anthony Goodwin PA-C Work Phone: Urology Comment on above: Appointment Needed Refill Request Start: 07-12-2024 ambulatory [facility] Facility:[place] Start: 07-11-2024 End: 07-11-2024 Emergency department patient visit Hua Corcoran Facility:[facility] Start: 07-11-2024 End: 07-11-2024 ambulatory Vera Manrique MD Work Phone: Internal Medicine [place] Comment on above: Musculoskeletal Prob gorge Start: 07-10-2024 End: 07-10-2024 ambulatory Treatment Rm 15 [facility] Work Phone: Hematology/Oncology Comment on above: Anemia associated wi th stage 4 chronic renal failure (HCC) (HCC) (Primary Dx) Refill Request Start: 07-09-2024 End: 07-10-2024 Refill Vera Manrique MD Work Phone: Internal Medicine [place] Comment on above: Refill Request Start: 07-08-2024 End: 07-08-2024 ambulatory Treatment Rm 15 [facility] Work Phone: Hematology/Oncology Comment on above: Anemia associated wi th stage 4 chronic renal failure (HCC) (HCC) (Primary Dx) Start: 07-08-2024 End: 07-08-2024 Telephone encounter Mel THAYER Hematology/Oncology Comment on above: social work services (1st time treatment report) Start: 07-03-2024 End: 07-03-2024 ambulatory Treatment Rm 15 [facility] Work Phone: Hematology/Oncology Comment on above: Anemia associated wi th stage 4 chronic renal failure (HCC) (HCC) (Primary Dx) Start: 07-01-2024 End: 07-01-2024 Patient encounter procedure Katelyn Leyva MD Work Phone: Endocrinology Comment on above: Type 2 diabetes librado itus with stage 3b chronic kidney disease, with long-term current use of insulin (HCC) Start: 07-01-2024 End: 07-01-2024 ambulatory Treatment Rm 14 [facility] Work Phone: Hematology/Oncology Comment on above: Anemia associated wi th stage 4 chronic renal failure (HCC) (HCC) (Primary Dx) Start: 06-28-2024 End: 07-01-2024 ambulatory Treatment Rm 15 [facility] Work Phone: Hematology/Oncology Comment on above: Anemia associated wi th stage 4 chronic renal failure (HCC) (HCC) (Primary Dx) Start: 06-19-2024 ambulatory [facility] [place] Start: 06-18-2024 End: 06-19-2024 Refill Vera Manrique MD Work Phone: Internal Medicine [place] Comment on above: Refill Request Start: 06-17-2024 End: 06-17-2024 ambulatory Nurse Intm/Famp Triage [facility] Work Phone: Nurse Phone Triage Comment on above: skin concern patient has painful scabs on buttocks. Start: 06-17-2024 End: 06-25-2024 Telephone encounter Nini Freire DO Work Phone: Hematology/Oncology Comment on above: Results Start: 06-13-2024 End: 09-11-2024 Refill Vera Manrique MD Work Phone: Internal Medicine [place] Comment on above: Refill Request Anemia, unspecified type (Primary Dx); Abnormal weight loss; Pacemaker; Polyp of colon, unspecified part of colon, unspecified type; Family history of colon cancer in mother Unable to contact le tter mailed Patient Update 08-19-2024 Colon EGD kennedy Start: 06-12-2024 End: 06-12-2024 [facility] Start: 06-12-2024 End: 06-12-2024 ambulatory Faviola Holman APRN.HELIARC WELDER Work Phone: Hematology/Oncology Comment on above: Anemia, unspecified type (Primary Dx) Start: 06-12-2024 End: 06-12-2024 Patient encounter procedure Faviola Holman RUNNING SPECIALIST.HELIARC WELDER Work Phone: Hematology/Oncology Start: 06-10-2024 End: 06-10-2024 ambulatory Jorge Kam RN [facility] [place] Comment on above: CKD education need s cheduled Start: 05-31-2024 End: 05-31-2024 ambulatory Jorge Kam RN [facility] [place] Comment on above: CKD education needed Start: 05-29-2024 End: 05-29-2024 ambulatory Jorge Kam RN [facility] [place] Comment on above: CKD education needs scheduled Start: 05-23-2024 End: 05-27-2024 Telephone encounter Nini Freire DO Work Phone: Hematology/Oncology Comment on above: Orders; Appointment Start: 05-21-2024 End: 05-23-2024 Telephone encounter Janice Hodges APRN.HELIARC WELDER Work Phone: Kidney Medicine Comment on above: Results Start: 05-20-2024 End: 05-20-2024 Patient encounter procedure Janice Hodges APRN.HELIARC WELDER Work Phone: Kidney Medicine Comment on above: Diabetes mellitus du e to underlying condition with stage 4 chronic kidney disease, unspecified whether retirement insulin use (HCC) (Primary Dx); Primary hypertension; Metabolic acidosis; Persistent proteinuria; Anemia of renal disease; Secondary renal hyperparathyroidism (HCC); Hyperlipidemia, unspecified hyperlipidemia type; Other iron deficiency anemia; Hypervitaminosis D; Benign prostatic hyperplasia without lower urinary tract symptoms Start: 05-17-2024 End: 05-17-2024 Refill Vera Manrique MD Work Phone: Internal Medicine [place] Comment on above: Refill Request Start: 05-10-2024 End: 05-21-2024 Telephone encounter Nurse Lockhart [facility] Work Phone: General Surgery Comment on above: Appointment Start: 05-09-2024 End: 05-09-2024 Office outpatient visit 25 minutes Vera Manrique MD Work Phone: Internal Medicine [place] Comment on above: Chronic kidney disea se, stage 4 (severe) (HCC) (Primary Dx); Type 2 diabetes mellitus with stage 3b chronic kidney disease, with long-term current use of insulin (HCC); Essential hypertension, benign; Anemia, unspecified type Start: 04-30-2024 End: 04-30-2024 Office outpatient visit 15 minutes Angie Mercado PA-C Work Phone: Family Medicine [place] Comment on above: Need for influenza v accination (Primary Dx); Type 2 diabetes mellitus with stage 3b chronic kidney disease, with long-term current use of insulin (HCC) Start: 04-25-2024 End: 04-25-2024 Refill Vera Manrique MD Work Phone: [facility] [place] Comment on above: Refill Request Start: 04-18-2024 End: 04-18-2024 Refill Vera Manrique MD Work Phone: [facility] [place] Comment on above: Refill Request Start: 04-01-2024 End: 04-01-2024 Office outpatient visit 25 minutes Vera Manrique MD Work Phone: Internal Medicine [place] Comment on above: Fall, subsequent enc ounter (Primary Dx); Arm bruise, left, sequela Start: 04-01-2024 End: 09-23-2024 Telephone encounter Nini Freire DO Work Phone: Hematology/Oncology Comment on above: Follow Up Start: 03-29-2024 End: 03-29-2024 Telephone encounter Nurse Lockhart [facility] Work Phone: General Surgery Comment on above: Appointment (EGD/col onoscopy reschedule) Start: 03-22-2024 Telephone encounter Nini heard DO Work Phone: Hematology/Oncology Comment on above: Results Start: 03-08-2024 End: 03-08-2024 Subsequent hospital visit by physician Ana [facility] [place] Work Phone: Radiology Comment on above: Anemia, unspecified type [D64.9] Start: 03-08-2024 End: 03-08-2024 ambulatory Nini Freire DO Work Phone: Hematology/Oncology Comment on above: Anemia, unspecified type (Primary Dx); Abnormal weight loss Start: 03-08-2024 End: 03-08-2024 Patient encounter procedure Nini Freire DO Work Phone: Hematology/Oncology Start: 03-01-2024 ambulatory [facility] [place] Comment on above: Free program through [facility] for people who have Chronic Kidney Disease Start: 03-01-2024 E-mail encounter mary ma caregiver [facility] Start: 02-27-2024 Refill Vera Mejia Work Phone: Family Medicine [place] Comment on above: Refill Request Start: 02-26-2024 Telephone encounter Janice ramesh APRN.HELIARC WELDER Work Phone: [facility] Comment on above: Appointment (Hematol ogy Appt. ) Follow Up Start: 02-26-2024 End: 02-26-2024 Patient encounter procedure Janice Hodges APRN.HELIARC WELDER Work Phone: Kidney Medicine Comment on above: Type 2 diabetes librado itus 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, with long-term current use of insulin (HCC) (Primary Dx); Primary hypertension; Metabolic acidosis; Persistent proteinuria; Anemia of renal disease; Secondary renal hyperparathyroidism (HCC); Hyperlipidemia, unspecified hyperlipidemia type; Other iron deficiency anemia; Vitamin D deficiency Start: 02-22-2024 End: 02-22-2024 Subsequent hospital visit by physician [facility] Work Phone: Radiology Comment on above: Screening for abdomi nal aortic aneurysm [Z13.6] Start: 02-07-2024 End: 02-07-2024 Patient encounter procedure Taco Tatum APRN.HELIARC WELDER Work Phone: Internal Medicine [place] Comment on above: Essential hypertensi on, benign (Primary Dx); Type 2 diabetes mellitus with stage 4 chronic kidney disease, with long-term current use of insulin (HCC); 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); Poor memory; Screening for abdominal aortic aneurysm; Colon cancer screening; Dyspnea on exertion Start: 01-24-2024 Refill Vera Mejia Work Phone: Internal Medicine [place] Comment on above: Refill Request Appointment Start: 01-23-2024 ambulatory Vera Mejia Work Phone: [facility] [place] Start: 01-04-2024 Refill Vera Mejia Work Phone: Internal Medicine [place] Comment on above: Refill Request Start: 01-02-2024 Telephone encounter Gloria rodríguez APRN.HELIARC WELDER Work Phone: Internal Medicine [place] Comment on above: Results Start: 01-02-2024 End: 01-02-2024 Patient encounter procedure Gloria Rema Bob RUNNING SPECIALIST.HELIARC WELDER Work Phone: Internal Medicine [place] Comment on above: VENICE (acute kidney in jury) (HCC) (Primary Dx); Anemia due to chronic kidney disease, unspecified CKD stage; Diarrhea, unspecified type Start: 12-28-2023 Refill Vera Mejia Work Phone: Internal [facility] [place] Comment on above: Refill Request Start: 12-01-2023 Refill Vera Mejia Work Phone: Internal [facility] [place] Comment on above: Refill Request Start: 11-20-2023 End: 11-20-2023 Patient encounter procedure Omid Olmos DO Work Phone: Kidney Medicine Comment on above: Chronic kidney disea se, stage 4, severely decreased GFR (HCC) (Primary Dx); Anemia of renal disease; Secondary renal hyperparathyroidism (HCC); Primary hypertension; Hyperlipidemia, unspecified hyperlipidemia type; Metabolic acidosis Start: 11-07-2023 ambulatory Vera Mejia Work Phone: [facility] [place] Comment on above: Back Pain Start: 10-05-2023 Refill Vera Mejia Work Phone: [facility] [place] Comment on above: Refill Request Start: 09-19-2023 Telephone encounter Vera hi MD Work Phone: Internal [facility] [place] Comment on above: Medication Problem ( Increase trazodone) Patient Update Start: 09-14-2023 Telephone encounter Daisy zhu RUNNING SPECIALIST.HELIARC WELDER Work Phone: Family Medicine [place] Comment on above: Results Start: 09-13-2023 End: 09-13-2023 Patient encounter procedure Daisy Noel RUNNING SPECIALIST.HELIARC WELDER Work Phone: Family Medicine [place] Comment on above: Difficulty sleeping (Primary Dx); Insomnia, unspecified type Start: 09-07-2023 Refill Anthony Goodwin PA-C Work Phone: Urology Comment on above: Refill Request; Refi ll Request Start: 08-23-2023 Non-patient / Non-visit Dr. Lata Manrique Work Phone: [facility] Start: 08-23-2023 End: 08-23-2023 Admission to same day surgery center Dr. Vera Manrique Work Phone: [facility] Work Phone: Start: 08-23-2023 End: 08-23-[address] Vera Manrique Work Phone: [facility] Work Phone: Start: 08-11-2023 End: 08-11-[address] Vera Manrique Work Phone: [facility] Work Phone: Start: 07-26-2023 End: 07-26-2023 Subsequent hospital visit by physician [facility] Work Phone: Radiology Comment on above: Rib pain on right si de [R07.81] Start: 07-23-2023 End: 07-23-2023 Emergency department patient visit Dr. Vera Manrique Work Phone: [facility]Emergency [facility] Work Phone: Start: 07-14-2023 Refill Taco Tatum APRN .HELIARC WELDER Work Phone: Internal Medicine [place] Comment on above: Refill Request Results Start: 07-11-2023 End: 07-11-2023 ambulatory Nini Freire DO Work Phone: Hematology/Oncology Comment on above: Anemia, unspecified type (Primary Dx); CKD (chronic kidney disease), stage IV (HCC); 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) Start: 07-11-2023 End: 07-11-2023 Patient encounter procedure Nini Freire DO Work Phone: [facility] Start: 07-10-2023 End: 07-10-2023 Office outpatient visit 25 minutes Leeann Reyes APRN.CNP Work Phone: Family Medicine [place] Comment on above: Chronic constipation (Primary Dx); VENICE (acute kidney injury) (HCC); Encounter for immunization; Anemia, unspecified type Start: 06-29-2023 End: 06-29-2023 Emergency department patient visit Dr. Vera Manrique Work Phone: [facility] Work Phone: Start: 06-23-2023 Refill Vera Mejia Work Phone: Internal Medicine [place] Comment on above: Refill Request Start: 06-22-2023 Non-patient / Non-visit Dr. Lata Manrique Work Phone: [facility] Start: 06-22-2023 End: 06-22-2023 Admission to same day surgery center Dr. Vera Manrique Work Phone: [facility] Work Phone: Start: 06-22-2023 End: 06-22-[address] Vera Manrique Work Phone: [facility] Work Phone: Start: 05-23-2023 Refill Toya Smith PA-C Work Phone: Internal Medicine [place] Comment on above: Refill Request Start: 05-08-2023 Non-patient / Non-visit Dr. Lata Manrique Work Phone: [facility] Start: 05-08-2023 End: 05-08-[address] [facility] Start: 04-25-2023 Refill Vera Mejia Work Phone: Internal Medicine [place] Comment on above: Refill Request Start: 04-11-2023 End: 04-11-[address] Vera Manrique Work Phone: [facility] Work Phone: Start: 04-11-2023 End: 04-11-[address] Vera Manrique Work Phone: [facility]Laboratory, Specimen Work Phone: Start: 04-03-2023 End: 04-03-2023 Patient encounter procedure Toya Smith PA-C Work Phone: Internal Medicine [place] Comment on above: Anemia, unspecified type (Primary Dx); Chronic kidney disease, stage 4 (severe) (HCC); Essential hypertension, benign; Hypocalcemia Start: 03-29-2023 Refill Vera Mejia Work Phone: Internal [facility] [place] Comment on above: Refill Request Start: 03-24-2023 ambulatory Vera Mejia Work Phone: Internal [facility] [place] Comment on above: Hypertension Start: 03-21-2023 End: 03-21-[address] Vera Manrqiue Work Phone: [facility] Work Phone: Start: 03-14-2023 End: 03-14-[address] Vera Manrique Work Phone: [facility] Work Phone: Start: 03-14-2023 End: 03-14-[address] Vera Manrique Work Phone: [facility] Work Phone: Start: 03-14-2023 End: 03-14-[address] Vera Manrique Work Phone: [facility] Work Phone: Start: 03-13-2023 End: 03-13-2023 Patient encounter procedure Toya Smith PA-C Work Phone: Internal Medicine [place] Comment on above: Rib pain on right si de (Primary Dx); Type 2 diabetes mellitus with stage 4 chronic kidney disease, with long-term current use of insulin (HCC); Function kidney decreased; Essential hypertension, benign; Anemia, unspecified type; Vitamin D deficiency Start: 03-04-2023 End: 03-04-2023 Emergency department patient [facility]. [facility] Start: 03-01-2023 End: 03-01-[address] Vera Manrique Work Phone: [facility] Work Phone: Start: 02-08-2023 ambulatory Vera Manrique M D Work Phone: Internal Medicine [facility] Start: 01-31-2023 Refill Vera Manrique M D Work Phone: Internal Medicine [place] Comment on above: Refill Request Results Start: 01-25-2023 End: 01-25-2023 Subsequent hospital visit by physician X[facility] Work Phone: Radiology Comment on above: Dyspnea on exertion [R06.09] Start: 01-25-2023 End: 01-25-2023 Patient encounter procedure Taco Tatum APRN.CNP Work Phone: Internal Medicine [place] Comment on above: Essential hypertensi on, benign (Primary Dx); Dyspnea on exertion; Diabetic polyneuropathy associated with type 2 diabetes mellitus (HCC); Chronic kidney disease, stage 4 (severe) ([facility]) Start: 12-16-2022 Refill Vera Manrique M D Work Phone: Internal Medicine [place] Comment on above: Refill Request Start: 11-29-2022 ambulatory Vera Manrique M D Work Phone: Internal Medicine [facility] Start: 11-16-2022 End: 11-16-2022 Patient encounter procedure Taco Tatum APRN.CNP Work Phone: Internal Medicine [place] Comment on above: Type 2 diabetes librado itus with stage 3b chronic kidney disease, with long-term current use of insulin (HCC) (Primary Dx); Numbness in feet Start: 11-10-2022 Refill Vera Mejia Work Phone: Internal Medicine [place] Comment on above: Refill Request Start: 10-10-2022 Telephone encounter Vera hi MD Work Phone: Family Medicine [place] Comment on above: blood sugar issue Start: 10-03-2022 Telephone encounter Vera hi MD Work Phone: Internal Medicine [place] Comment on above: blood sugars climbin g again Start: 10-02-2022 End: 10-03-2022 Emergency department patient [facility] Dr. [facility] Start: 10-02-2022 ambulatory Enoc Petit RN NURSE INCLINED RAILWAY OPERATOR Comment on above: High Blood Sugar Information Start: 09-30-2022 End: 09-30-2022 Emergency department patient visit Dr. [facility]rique [facility] Start: 09-30-2022 End: 09-30-[address] Vera Manrique Work Phone: [facility] Start: 09-21-2022 Refill Vera Mejia Work Phone: Internal Medicine [place] Comment on above: Refill Request Start: 09-20-2022 End: 09-20-2022 Patient encounter procedure Vera Manrique MD Work Phone: Internal Medicine [place] Comment on above: Uncontrolled type 2 DM with hyperosmolar nonketotic hyperglycemia (HCC) (Primary Dx); Insomnia, unspecified type; Diabetic polyneuropathy associated with type 2 diabetes mellitus (HCC); Pure hypercholesterolemia; Uncontrolled hypertension; Type 2 diabetes mellitus with stage 3b chronic kidney disease, with long-term current use of insulin (HCC) Start: 09-16-2022 Refill Anthony Goodwin PA-C Work Phone: Urology Comment on above: Refill Request Start: 09-14-2022 End: 09-14-2022 Emergency department patient [facility] Dr. [facility] Start: 09-08-2022 End: 09-08-2022 Patient encounter procedure Vera Manrique MD Work Phone: Internal Medicine [place] Comment on above: Recurrent falls (Carole pan Dx); Uncontrolled type 2 diabetes mellitus with hypoglycemia without coma (HCC); Essential hypertension, benign Start: 08-31-2022 Telephone encounter Vera hi MD Work Phone: Internal Medicine [place] Comment on above: Patient Update Start: 06-28-2022 ambulatory Vera Mejia Work Phone: [facility] [place] Start: 06-15-2022 End: 06-15-[address] Vera Manrique Work Phone: [facility] Start: 06-01-2022 Telephone encounter Vera hi MD Work Phone: Internal Medicine [place] Comment on above: Medication Request Start: 03-23-2022 Telephone encounter Vera hi MD Work Phone: Internal Medicine [place] Comment on above: Patient Question Start: 03-22-2022 Non-patient / Non-visit Dr. Lata Manrique Work Phone: [facility] Start: 03-21-2022 Non-patient / Non-visit Dr. Lata Manrique Work Phone: [facility] Start: 03-20-2022 Non-patient / Non-visit Dr. Lata Manrique Work Phone: [facility] Start: 03-19-2022 Non-patient / Non-visit Dr. Lata Manrique Work Phone: [facility] Start: 03-18-2022 Non-patient / Non-visit Dr. Lata Manrique Work Phone: [facility] Start: 03-18-2022 End: 03-22-2022 Evaluation and management of inpatient [facility]. [facility]rique [facility] Start: 03-18-2022 Non-patient / Non-visit Dr. Lata Manrique Work Phone: [facility] Start: 03-13-2022 End: 03-14-2022 ambulatory ORQUIDEA HUSSEIN [facility] Start: 03-12-2022 Non-patient / Non-visit Dr. Lata Manrique Work Phone: [facility] Start: 03-12-2022 Non-patient / Non-visit Dr. Lata Manrique Work Phone: [facility] Start: 03-11-2022 End: 03-11-[address] Vera Manrique Work Phone: [facility] Start: 03-11-2022 Non-patient / Non-visit Dr. Lata Manrique Work Phone: [facility] Start: 03-11-2022 End: 03-12-2022 Evaluation and management of inpatient Dr. Vera Manrique Work Phone: [facility] Start: 02-21-2022 End: 02-21-[address] Vera Manrique Work Phone: [facility] Start: 01-07-2022 Refill Taco RosenthalHELIARC WELDER Work Phone: Internal [facility] [place] Comment on above: Refill Request Start: 01-07-2022 Refill Vera Mejia Work Phone: Internal Medicine [place] Comment on above: Refill Request Start: 12-16-2021 Refill Taco RosenthalHELIARC WELDER Work Phone: Internal Medicine [place] Comment on above: Refill Request Start: 12-01-2021 Telephone encounter Taco Tatum APRN.HELIARC WELDER Work Phone: Internal Medicine [place] Comment on above: Results; Patient Upd ate Start: 11-20-2021 End: 11-21-2021 Emergency department patient [facility] Dr. [facility] Start: 11-19-2021 Refill Vera Mejia Work Phone: Internal Medicine [place] Comment on above: Refill Request Start: 11-15-2021 End: 11-15-2021 Emergency department patient visit Dr. [facility] Start: 11-15-2021 ambulatory Leida Montano RN NURSE O N CALL Comment on above: Diarrhea Start: 10-04-2021 End: 10-04-[address] [facility] Start: 09-20-2021 End: 09-20-[address] Vera Manrique Work Phone: [facility] Start: 08-02-2021 End: 08-02-2021 Emergency department patient visit Dr. [facility]rique [facility] Date Procedure Procedure Detail Performing Clinician Start: 04-28-2025 CT of head without contrast Dr. Vera husain MD Work Phone: Start: 04-28-2025 Urnls dip stick/tablet reagent auto microscopy Dr. Vera Manrique MD Work Phone: Start: 04-28-[address] Vera Manrique MD Work Phone: Start: 04-28-2025 CT of head without contrast Dr. Vera husain MD Work Phone: Start: 03-19-2025 X-ray of ankle, three or more views Dr. Vera Manrique MD Work Phone: Start: 09-24-2024 Adult depression screening assessment Angie Mercado PA-C Work Phone: Start: 03-08-2024 Radiologic exam chest 2 views Nini A Masci DO Work Phone: Start: 02-22-2024 Us abdominal aorta real time screen study aaa Taco Tatum RUNNING SPECIALIST.HELIARC WELDER Work Phone: Start: 08-23-[address] Vera Manrique Work Phone: Start: 07-26-2023 Radiologic exam chest 2 views Elda Mcgowan RUNNING SPECIALIST.HELIARC WELDER Work Phone: Start: 07-23-2023 X-ray of chest posteroanterior view Dr. Vera Manrique Work Phone: Start: 07-10-2023 INFLUENZA VACCINE, PRSV FREE, AGE 65+ YR, HIGH DOSE, QUADRIVALENT (FLUZONE HIGH-DOSE) Leeann Hafarrah RUNNING SPECIALIST.HELIARC WELDER Work Phone: Start: 06-29-2023 CT of abdomen and pelvis without contrast Dr. Vera Manrique Work Phone: Start: 06-22-[address] Vrea Manrique Work Phone: Start: 05-08-[address] Vera Manrique Work Phone: Start: 03-04-2023 CT of head without contrast Dr. Vera husain Work Phone: Start: 03-04-2023 CT of chest without contrast Dr. Vera Manrique Work Phone: Start: 01-25-2023 Radiologic exam chest 2 views Taco Tatum RUNNING SPECIALIST.HELIARC WELDER Work Phone: Start: 11-16-2022 Hemoglobin A1c/Hemoglobin.total in Blood Taco Tatum RUNNING SPECIALIST.HELIARC WELDER Work Phone: Start: 09-30-2022 CT of head without contrast Dr. Vera husain Work Phone: Start: 09-14-2022 US scan of gallbladder Dr. Vera Manrique Work Phone: Start: 09-14-2022 Plain chest X-ray Dr. Vera Manrique Work Phone: Start: 03-18-2022 Plain chest X-ray Dr. Vera Manrique Work Phone: Start: 03-11-2022 Magnetic resonance angiography of head without contrast Dr. Vera Manrique Work Phone: Start: 03-11-2022 Magnetic resonance angiography of neck without contrast Dr. Vera Manrique Work Phone: Start: 03-11-2022 CT of head without contrast Dr. Vera husain Work Phone: Start: 03-11-2022 Plain chest X-ray Dr. Vera Manrique Work Phone: Start: 03-11-2022 MRI of brain without contrast Dr. Vera Manrique Work Phone: Start: 11-20-2021 End: 11-20-2021 Measurement of occult blood in stool specimen using immunoassay Dr. Vera Manrique Work Phone: Start: 04-23-2021 Adult depression screening assessment Leida Montano RN Start: 2017 Colonoscopy Leida Montano RN History of decompres abby of median nerve History of carpal tunnel release Dr. Vera Manrique Work Phone: Legionella pneumophi la antigen assay Dr. Vera Manrique Work Phone: Measurement of occul t blood in stool specimen using immunoassay Dr. Vera Manrique Work Phone: Respiratory Panel (PCR) Dr. Vera Manrique Work Phone: Streptococcus pneumo niae Antigen (M Dr. Vera Manrique Work Phone: Urine culture Dr. Vera hi Work Phone: Viral antigen assay Dr. Paramjit Manrique Work Phone: Plan of Treatment Date Care Activity Detail Author Start: 04-22-2026 Complete blood count Hemoglobin/Hematocrit [place] [facility] Start: 04-15-2026 Complete blood count Hemoglobin/Hematocrit [facility] Start: 04-08-2026 Complete blood count Hemoglobin/Hematocrit [facility] Start: 04-01-2026 Complete blood count Hemoglobin/Hematocrit [facility] Start: 04-01-2026 Creatinine measurement Serum Creatinine [facility] Start: 03-25-2026 Complete blood count Hemoglobin/Hematocrit [facility] Start: 03-13-2026 Creatinine measurement Serum Creatinine [facility] Start: 03-11-2026 Complete blood count Hemoglobin/Hematocrit [facility] Start: 02-25-2026 Complete blood count Hemoglobin/Hematocrit [facility] Start: 02-18-2026 Complete blood count Hemoglobin/Hematocrit [facility] Start: 02-11-2026 Complete blood count Hemoglobin/Hematocrit [facility] Start: 02-04-2026 Complete blood count Hemoglobin/Hematocrit [facility] Start: 01-21-2026 Complete blood count Hemoglobin/Hematocrit [facility] Start: 01-14-2026 Complete blood count Hemoglobin/Hematocrit [facility] Start: 01-07-2026 Complete blood count Hemoglobin/Hematocrit [facility] Start: 01-02-2026 BP Controlled (<130/80) BP Controlled (<130/80) [facility] Start: 12-31-2025 Annual PCP Team Chronic Disease Visit Annual PCP Team Chronic Disease Visit [facility] Start: 12-31-2025 Complete blood count Hemoglobin/Hematocrit [facility] Start: 2025 Complete blood count Hemoglobin/Hematocrit [facility] Start: 12-11-2025 BP Controlled (<130/80) BP Controlled (<130/80) [facility] Start: 12-11-2025 Complete blood count Hemoglobin/Hematocrit [facility] Start: 12-04-2025 Creatinine measurement Serum Creatinine [facility] Start: 11-20-2025 Complete blood count Hemoglobin/Hematocrit [facility] Start: 11-20-2025 Creatinine measurement Serum Creatinine [facility] Start: 11-13-2025 Glaucoma screening Dilated Retinal Exam [facility] Start: 10-21-2025 Complete blood count Hemoglobin/Hematocrit [facility] Start: 10-21-2025 Creatinine measurement Serum Creatinine [facility] Start: 10-09-2025 BP Controlled (<130/80) BP Controlled (<130/80) [facility] Start: 10-08-2025 Annual PCP Team Chronic Disease Visit Annual PCP Team Chronic Disease Visit [facility] Start: 10-05-2025 Urine microalbumin profile [facility] Start: 09-24-2025 Annual PCP Team Chronic Disease Visit Annual PCP Team Chronic Disease Visit [facility] Start: 09-24-2025 Anxiety Screening Anxiety Screening [facility] Start: 09-24-2025 BP Controlled (<130/80) BP Controlled (<130/80) [facility] Start: 09-24-2025 Complete blood count Hemoglobin/Hematocrit [facility] Start: 09-24-2025 Covid-19 Vaccine ( season) Covid-19 Vaccine () [facility] Comment on above: Postponed from 04/07/2024 (Declined at t his time) Start: 09-24-2025 Creatinine measurement Serum Creatinine [facility] Start: 09-24-2025 Depression Screening Depression Screening [facility] Start: 09-24-2025 Hepatitis B surface antibody level LDL Cholesterol [facility] Start: 06-10-2025 End: 06-10-2025 [facility] Comment on above: (SO)CBC(?TX)Q3MO IRON STUDIES* QWK ARANESP/LAB TRINA Y* PM APPTS Start: 06-03-2025 Complete blood count Hemoglobin/Hematocrit [facility] Start: 06-03-2025 End: 06-03-2025 [facility] Comment on above: (SO)CBC(?TX)* QWK ARANESP/LAB TRINA Y* PM APPTS 3mo iron studies due jun Start: 05-27-2025 End: 05-27-2025 [facility] Comment on above: (SO)CBC(?TX)* QWK ARANESP/LAB TRINA Y* PM APPTS 3mo iron studies due jun Start: 05-20-2025 End: 05-20-2025 [facility] Comment on above: (SO)CBC(?TX)* QWK ARANESP/LAB TRINA Y* PM APPTS 3mo iron studies due jun Start: 05-20-2025 Complete blood count Hemoglobin/Hematocrit [facility] Start: 05-20-2025 Creatinine measurement Serum Creatinine [facility] Start: 05-13-2025 End: 05-13-2025 [facility] Comment on above: (SO)CBC(?TX)* QWK ARANESP/LAB TRINA Y* PM APPTS QWK ARANESP/LAB TRINA Y* PM APPTS 3mo iron studies due nov Start: 05-09-2025 Annual PCP Team Chronic Disease Visit Annual PCP Team Chronic Disease Visit [facility] Start: 05-09-2025 Diabetic foot examination Diabetic Foot Exam [facility] Start: 05-06-2025 End: 05-06-2025 ambulatory [facility] Comment on above: (SO)CBC(?TX)* QWK ARANESP/LAB TRINA Y* PM APPTS QWK ARANESP/LAB TRINA Y* PM APPTS 3mo iron studies due nov Start: 04-30-2025 Annual PCP Team Chronic Disease Visit Annual PCP Team Chronic Disease Visit [facility] Start: 04-29-2025 End: 04-29-2025 ambulatory [facility] Comment on above: IRON STUDIES(SO)CBC(?TX)* QWK ARANESP/OV&LAB T PORSCHE* (SO)CBC(?TX)/KIDNEY MED LABS* QWK ARANESP/LAB TRINA Y* PM APPTS Start: 04-28-2025 [facility] Start: 04-22-2025 End: 04-22-2025 [facility] Comment on above: IRON STUDIES(SO)CBC(?TX)* 4 WK OV/LAB EARLY* QWK ARANESP/OV&LAB T PORSCHE* (SO)CBC(?TX)* Start: 04-16-2025 End: 04-16-2025 ambulatory [facility] Comment on above: (SO)CBC(?TX)* 03/28- NO PM ON Start: 04-15-2025 End: 04-15-2025 ambulatory [facility] Comment on above: IRON STUDIES(SO)CBC(?TX)* QWK ARANESP/OV&LAB T PORSCHE* (SO)CBC(?TX)* QWK ARANESP/LAB TRINA Y* Start: 04-08-2025 End: 04-08-2025 ambulatory [facility] Comment on above: (SO)CBC(?TX)* QWK ARANESP/LAB TRINA Y* IRON STUDIES(SO)CBC( ?TX)* QWK ARANESP/OV&LAB T PORSCHE* Start: 04-07-2025 Influenza vaccination Influenza Vaccine (#1) [facility] Start: 04-01-2025 Annual PCP Team Chronic Disease Visit Annual PCP Team Chronic Disease Visit [facility] Start: 04-01-2025 BP Controlled (<130/80) BP Controlled (<130/80) [facility] Start: 04-01-2025 End: 04-01-2025 ambulatory [facility] Comment on above: IRON STUDIES(SO)CBC(?TX)* (SO)CBC(?TX)/KIDNEY MED LABS* Start: 04-01-2025 End: 04-01-2025 ambulatory [facility] Comment on above: (SO)CBC(?TX)* QWK ARANESP/LAB TRINA Y* QWK ARANESP/OV&LAB T PORSCHE* Start: 03-27-2025 End: 03-27-2025 Patient encounter procedure 03/27/2025 9:00 AM EDT Appointment [facility] [address] [place] [address] PACEMAKER CK [facility] Comment on above: PACEMAKER CK Start: 03-25-2025 End: 03-25-2025 ambulatory Hematology/Oncology Comment on above: 4 WK OV/LAB EARLY* QWK ARANESP/OV&LAB T PORSCHE* Start: 03-25-2025 End: 03-25-2025 ambulatory [facility] Comment on above: (SO)CBC(?TX)* QWK ARANESP/LAB TRINA Y* IRON STUDIES(SO)CBC( ?TX)* Start: 03-24-2025 Hemoglobin A1c measurement HbA1C [facility] Start: 03-19-2025 End: 03-19-2025 ambulatory [facility] Comment on above: (SO)CBC(?TX)* QWK ARANESP/LAB TRINA Y* Start: 03-18-2025 End: 03-18-2025 ambulatory 03/18/2025 11:15 AM EDT [facility] Hematology/Oncology [address] [place], [place] [id number] Wstr, Injection Calderon [facility] [address] [place] [address] QWK ARANESP/OV&LAB TODAY* Hematology/Oncology Comment on above: QWK ARANESP/OV&LAB TODAY* Start: 03-18-2025 End: 03-18-2025 ambulatory [facility] Comment on above: (SO)CBC(?TX)/IRON STUDIES* 4 WK OV/LAB EARLY* IRON STUDIES(SO)CBC( ?TX)* Start: 03-13-2025 End: 03-13-2025 Patient encounter procedure 03/13/2025 2:00 PM EDT Office Visit Kidney Medicine [address] [place] [address] Janice Hodges APRN.HELIARC WELDER [address] [place] [address] follow up Kidney Medicine Comment on above: follow up Start: 03-11-2025 End: 03-11-2025 ambulatory [facility] Comment on above: IRON STUDIES(SO)CBC(?TX)* QWK ARANESP/OV&LAB T PORSCHE* Start: 03-11-2025 End: 03-11-2025 ambulatory [facility] Comment on above: (SO)CBC(?TX)* QWK ARANESP/LAB TRINA Y* Start: 03-04-2025 End: 03-04-2025 ambulatory 03/04/2025 1:30 PM EDT Results Only [facility] [address] [place] [address] IRON STUDIES(SO)CBC(?TX)* [facility] Comment on above: IRON STUDIES(SO)CBC(?TX)* Start: 03-04-2025 End: 03-04-2025 ambulatory [facility] Comment on above: (SO)CBC(?TX)* QWK ARANESP/LAB TRINA Y* QWK ARANESP/OV&LAB T PORSCHE* Start: 02-25-2025 End: 02-25-2025 ambulatory 02/25/2025 2:45 PM EDT Infusion Center Hematology/Oncology [address] [place] [address] Wstr, Injection Calderon [facility] [address] [place] [address] QWK ARANESP/OV&LAB TODAY* Hematology/Oncology Comment on above: QWK ARANESP/OV&LAB TODAY* Start: 02-25-2025 End: 02-25-2025 ambulatory 02/25/2025 1:30 PM EDT Results Only [facility] [address] [place] [address] IRON STUDIES(SO)CBC(?TX)* [facility] Comment on above: IRON STUDIES(SO)CBC(?TX)* Start: 02-25-2025 End: 02-25-2025 ambulatory [facility] Comment on above: (SO)CBC(?TX)* QWK ARANESP/LAB TRINA Y* 4 WK OV/LAB EARLY* Start: 02-18-2025 End: 02-18-2025 ambulatory [facility] Comment on above: (SO)CBC(?TX)/IRON STUDIES* 4 WK OV/LAB EARLY* QWK ARANESP/OV&LAB T PORSCHE* Start: 02-12-2025 End: 02-12-2025 Patient encounter procedure 02/12/2025 3:20 PM EDT Office Visit Internal Medicine [facility] [address] [place] [address] Taco Tatum APRN.HELIARC WELDER [address] [place] [address] 6w f/up [facility] [place] Comment on above: 6w f/up Start: 02-11-2025 End: 02-11-2025 ambulatory [facility] Comment on above: (SO)CBC(?TX)* QWK ARANESP/LAB TRINA Y* Start: 02-06-2025 Annual PCP Team Chronic Disease Visit Annual PCP Team Chronic Disease Visit [facility] Start: 02-06-2025 Complete blood count Hemoglobin/Hematocrit [facility] Start: 02-06-2025 Covid-19 Vaccine ( season) Covid-19 Vaccine ( season) [facility] Comment on above: Postponed from 04/07/2023 (Declined at t his time) Start: 02-06-2025 Creatinine measurement Serum Creatinine [facility] Start: 02-06-2025 Hepatitis B surface antibody level LDL Cholesterol [facility] Start: 02-06-2025 End: 02-06-2025 Patient encounter procedure 02/06/2025 2:00 PM EDT Office Visit [facility] [address] [place] [address] Darlene Carpenter, [facility]ly [facility] [address] [place] [address] diabetes [facility] Comment on above: diabetes Start: 02-06-2025 Shingrix Vaccine (1 of 2) Shingrix Vaccine (1 of 2) [facility] Comment on above: Postponed from 12/19/2007 (Declined at t his time) Start: 02-04-2025 End: 02-04-2025 ambulatory [facility] Comment on above: (SO)CBC(?TX)* QWK ARANESP/LAB TRINA Y* Start: 01-30-2025 End: 01-30-2025 Admission to same day surgery center 01/30/2025 10:06 AM EDT - 01/30/2025 1:58 PM EDT Surgery [facility] [address] [place] [address] Rc Shrestha MD [address] [place] [address] CREATION FISTULA ARTERIOVENOUS EXTREMITY UPPER [facility] Comment on above: CREATION FISTULA ARTERIOVENOUS EXTREMITY UPPER Start: 01-30-2025 End: 01-30-2025 Crtj arven fstl xcp dir arvalma delia anast autog grf CREATION FISTULA ARTERIOVENOUS EXTREMITY UPPER ESRD (end stage renal disease) (HCC) 01/30/2025 10:06 AM EDT ME OR Start: 01-30-2025 Subsequent hospital visit by physician [facility] Comment on above: ESRD (end stage renal disease) (HCC) [N1 8.6] Start: 01-29-2025 End: 01-29-2025 Patient encounter procedure 01/29/2025 2:15 PM EDT Appointment Cardiology [address] [place] [address] OUTPATIENT PRE OP DEVICE CHECK [facility] Comment on above: OUTPATIENT PRE OP DEVICE CHECK [facility]ART[facility] Start: 01-28-2025 End: 01-28-2025 ambulatory [facility] Comment on above: (SO)CBC(?TX)* QWK ARANESP/LAB TRINA Y* Start: 01-23-2025 End: 01-23-2025 Anesthesia consultation 01/23/2025 3:20 PM EDT PAT Pre Anesthesia [address] [place] [address] 1, [facility] [address] [place] [address] pre op CREATION FISTULA ARTERIOVENOUS EXTREMITY UPPER [1485] - Arm - Right 01/30 Pre Anesthesia Comment on above: pre op CREATION FISTULA ARTERIOVENOUS EX TREMITY UPPER [1485] - Arm - Right 01/30 Start: 01-22-2025 End: 01-22-2025 ambulatory [facility] Comment on above: CBC/IRON STUDIES 4 WK OV/LAB EARLY* C OMPLETED IRON 12/24 QWK ARANESP/OV&LAB T PORSCHE* Start: 01-21-2025 End: 01-21-2025 ambulatory [facility] Comment on above: (SO)CBC(?TX)/IRON STUDIES* 4 WK OV/LAB EARLY* C OMPLETED IRON 12/24 R/S FROM 01/22 QWK ARANESP/OV&LAB T PORSCHE* Start: 01-21-2025 End: 01-21-2025 Anesthesia consultation 01/21/2025 8:00 AM EDT PAT Pre Anesthesia [address] [place] [address] 1, [facility] [place] [address] [place] [address] pre op Pre Anesthesia Comment on above: pre op Start: 01-14-2025 End: 01-14-2025 ambulatory [facility] Comment on above: CBC(?TX)* CBC(?TX)QWK ARANESP* (SO)CBC(?TX)* LAB EARLY/QWK ARANES P* QWK ARANESP/LAB TRINA Y* Start: 01-10-2025 End: 01-10-2025 Patient encounter procedure 01/10/2025 11:00 AM EDT Office Visit Vascular Surgery [address] [address] Rc Shrestha MD [address] [place] [address] [employer] V[facility] Surgery Comment on above: [employer] Start: 01-07-2025 End: 01-07-2025 ambulatory [facility] Comment on above: CBC(?TX)* CBC(?TX)QWK ARANESP* (SO)CBC(?TX)* LAB EARLY/QWK ARANES P* Start: 01-06-2025 End: 01-06-2025 Patient encounter procedure Vascular Surgery Comment on above: [employer] Start: 01-02-2025 End: 01-02-2025 Patient encounter procedure 01/02/2025 1:30 PM EDT Office Visit Kidney Medicine [address] [place] [address] Janice Hodges, RUNNING SPECIALIST.HELIARC WELDER [address] [place] [address] Return in about 3 months (around 12/28/2024) for me, with Dr Small, with Dr Thurman. [facility]ney Medicine Comment on above: Return in about 3 months (around 12/29/19) for me, with Dr Small, with Dr Thurman. Start: 01-01-2025 Annual PCP Team Chronic Disease Visit Annual PCP Team Chronic Disease Visit [facility] Start: 01-01-2025 BP Controlled (<130/80) BP Controlled (<130/80) [facility] Start: 01-01-2025 Complete blood count Hemoglobin/Hematocrit [facility] Start: 01-01-2025 Creatinine measurement Serum Creatinine [facility] Start: 12-31-2024 End: 12-31-2024 Patient encounter procedure 12/31/2024 3:00 PM EDT Office Visit Vascular Surgery [address] [place] [address] Harshil West, DO [address] [place] [address] Discuss dialysis access Vascular Surgery Comment on above: Discuss dialysis access Start: 12-31-2024 End: 12-31-2024 ambulatory [facility] Comment on above: CBC(?TX)* CBC(?TX)START QWK AR ANESP* Start: 12-24-2024 End: 12-24-2024 ambulatory [facility] Comment on above: CBC(?TX)* 2ND Start: 12-23-2024 [facility] Start: 12-20-2024 End: 12-20-2024 ambulatory 12/20/2024 2:00 PM EDT Infusion Center Hematology/Oncology [address] [place] [address] 2ND Hematology/Oncology Comment on above: 2ND Start: 2024 End: 2024 ambulatory [facility] Comment on above: CBC(?TX)* 2ND Start: 12-16-2024 End: 12-16-2024 ambulatory 12/16/2024 2:30 PM EDT Infusion Center Hematology/Oncology [address] [place] [address] 2ND Hematology/Oncology Comment on above: 2ND Start: 12-13-2024 End: 12-13-2024 ambulatory 12/13/2024 3:00 PM EDT Infusion Center Hematology/Oncology [address] [place] [address] 2ND Hematology/Oncology Comment on above: 2ND Start: 12-12-2024 Complete blood count Hemoglobin/Hematocrit [facility] Start: 12-12-2024 Creatinine measurement Serum Creatinine [facility] Start: 12-11-2024 End: 12-11-2024 ambulatory 12/11/2024 11:30 AM EDT Visit (SP) Office Hematology/Oncology [address] [place] [address] Nini Freire DO [address] [place] [address] OV Hematology/Oncology Comment on above: OV Start: 12-04-2024 End: 12-04-2024 ambulatory 12/04/2024 2:00 PM EDT Results Only [facility] [address] [place] [address] [facility] Comment on above: CBC IRON STUDIES Start: 11-18-2024 End: 10-31-2025 CBC W Auto Differential panel - Blood COMPLETE BLOOD COUNT AND DIFFERENTIAL Lab Routine Anemia of renal disease Expected: 11/18/2024 (Approximate), Expires: 10/31/2025 [facility] Comment on above: Expected: 11/18/2024 (Approximate), Expi res: 10/31/2025 Start: 11-18-2024 End: 02-17-2025 CYSTATIN C CYSTATIN C Lab Routine Type 2 diabetes mellitus 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, with long-term current use of insulin (HCC) Decreased appetite Expected: 11/18/2024 (Approximate), Expires: 02/17/2025 [facility] Comment on above: Expected: 11/18/2024 (Approximate), Expi res: 02/17/2025 Start: 11-18-2024 End: 10-31-2025 Protein/Creatinine [Mass Ratio] in Urine PROTEIN / CREATININE RATIO Lab Routine Type 2 diabetes mellitus 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, with long-term current use of insulin (HCC) Persistent proteinuria Primary hypertension Expected: 11/18/2024 (Approximate), Expires: 10/31/2025 [facility] Comment on above: Expected: 11/18/2024 (Approximate), Expi res: 10/31/2025 Start: 11-18-2024 End: 10-31-2025 Renal function 2000 panel - Serum or Plasma RENAL FUNCTION PANEL Lab Routine Type 2 diabetes mellitus 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, with long-term current use of insulin (HCC) Persistent proteinuria Primary hypertension Metabolic acidosis Expected: 11/18/2024 (Approximate), Expires: 10/31/2025 [facility] Work Phone: Comment on above: Expected: 11/18/2024 (Approximate), Expi res: 10/31/2025 Start: 11-18-2024 Screening for malignant neoplasm of colon Sigmoidoscopy [facility] Start: 11-18-2024 SIGMOIDOSCOPY SIGMOIDOSCOPY [facility] Start: 11-18-2024 End: 02-17-2025 Urinalysis complete panel - Urine URINALYSIS (WITH MICROSCOPIC) WITH CULTURE IF INDICATED Lab Routine Type 2 diabetes mellitus 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, with long-term current use of insulin (HCC) Persistent proteinuria Primary hypertension Benign prostatic hyperplasia without lower urinary tract symptoms Expected: 11/18/2024 (Approximate), Expires: 02/17/2025 [facility] Comment on above: Expected: 11/18/2024 (Approximate), Expi res: 02/17/2025 Start: 10-28-2024 Hemoglobin A1c measurement HbA1C [facility] Start: 10-28-2024 End: 10-28-2024 ambulatory 10/28/2024 11:00 AM EDT Visit (SP) Office Hematology/Oncology [address] [place] [id number] Octavio Monsalve [address] [place] [id number] OV- STAFF MESSAGE/ANEMIA* Hematology/Oncology Comment on above: OV- STAFF MESSAGE/ANEMIA* Start: 10-24-2024 Glaucoma screening Dilated Retinal Exam [facility] Start: 10-09-2024 End: 10-09-2024 Patient encounter procedure 10/09/2024 10:15 AM EST Office Visit Endocrinology [address] [place] [address] Cookie Delacruz APRN.HELIARC WELDER [address] [place] [address] Type 2 diabetes mellitus with stage 3b chronic kidney disease, with long-term current use of insulin (HCC) [E11.22, N18.32, Z79.4] Endocrinology Comment on above: Type 2 diabetes mellitus with stage 3b c hronic kidney disease, with long-term current use of insulin (HCC) [E11.22, N18.32, Z79.4] Start: 10-08-2024 End: 10-08-2024 Patient encounter procedure 10/08/2024 9:00 AM EST Office Visit Family [facility] [address] [place], [place] [address] Angie Mercado PA-C [address] [place] [address] review blood work 09/24/24 Family [facility] Comment on above: review blood work 09/24/24 Start: 10-01-2024 End: 10-01-2024 Patient encounter procedure General Surgery Comment on above: Colonospy Consult Colonospy/EGD Consul t Colonospy/EGD Consul t, last colon 08/23/2023 @ [facility], 1 year repeat, op report scanned in bjs Start: 09-30-2024 End: 09-30-2024 Patient encounter procedure 09/30/2024 2:00 PM EST Office Visit Kidney Medicine [address] [place] [address] Janice Hodges APRN.HELIARC WELDER [address] [place] [address] ckd fu Kidney Medicine Comment on above: ckd fu Start: 09-24-2024 End: 12-24-2024 Hemoglobin A1c in Blood [facility] Comment on above: Expected: 09/24/2024, Expires: Start: 09-24-2024 End: 12-24-2024 Lipid 1996 panel - Serum or Plasma [facility] Work Phone: Comment on above: Expected: 09/24/2024, Expires: Start: 09-24-2024 End: 09-24-2024 Patient encounter procedure 09/24/2024 10:00 AM EST Office Visit Family Medicine [facility] [address] [place] [address] Angie Mercado PA-C [address] [place] [address] 3 month follow up Family Medicine [facility] Comment on above: 3 month follow up Start: 09-20-2024 End: 09-20-2024 Patient encounter procedure 09/20/2024 9:00 AM EST Office Visit Internal Medicine [place] [address] [place] [address] Vera Manrique MD [address] [facility] [address] 3 month follow up Internal Medicine [facility] Comment on above: 3 month follow up Start: 09-13-2024 Annual PCP Team Chronic Disease Visit Annual PCP Team Chronic Disease Visit [facility] Start: 09-13-2024 Complete blood count Hemoglobin/Hematocrit [facility] Start: 09-13-2024 Creatinine measurement Serum Creatinine [facility] Start: 09-13-2024 RSV Vaccine (1 - 1-dose 60+ series) RSV Vaccine (1 - 1-dose 60+ series) [facility] Comment on above: Postponed from 2017 (Declined at t his time) Start: 09-13-2024 RSV Vaccine (1 - Risk 60-74 years 1-dose series) RSV Vaccine (1 - Risk 60-74 years 1-dose series) [facility] Comment on above: Postponed from 2017 (Declined at t his time) Start: 09-06-2024 End: 09-06-2024 Patient encounter procedure 09/06/2024 3:00 PM EST Office Visit Internal Medicine [facility] [address] [place] [address] Vera Manrique MD [address] [place] [address] 3 month follow up Internal Medicine [facility] Comment on above: 3 month follow up Start: 08-29-2024 End: 08-29-2024 Patient encounter procedure 08/29/2024 11:00 AM EST Office Visit Kidney Medicine [address] [place] [address] Janice Hodges, RUNNING SPECIALIST.HELIARC WELDER [address] [place] [address] Return in about 3 months (around 08/20/2024). Kidney Medicine Comment on above: Return in about 3 months (around 08/20/19). Start: 08-26-2024 End: 08-26-2024 ambulatory [facility] Comment on above: CBC/IRON STUDIES* OV/LABS EARLY/EGD & COLONOSCOPY 08/19* Start: 08-22-2024 End: 08-22-2024 Patient encounter procedure 08/22/2024 8:00 AM EST Office Visit Kidney Medicine [address] [place] [address] Janice Hodges, RUNNING SPECIALIST.HELIARC WELDER [address] [place] [address] Return in about 3 months (around 08/20/2024). Kidney Medicine Comment on above: Return in about 3 months (around 08/20/19). Start: 08-19-2024 End: 08-19-2024 Patient encounter procedure 08/19/2024 10:45 AM EST Appointment [facility] [address] [place] [address] Marcello Nice MD [address] [address] [facility] Start: 08-16-2024 End: 08-16-2024 Patient encounter procedure 08/16/2024 8:15 AM EST Appointment [facility] [address] [place] [address] Ellen Garces, DO [address] [place] [address] Colonoscopy & EGD [facility] Comment on above: Colonoscopy & EGD Start: 08-15-2024 PROSTATE CANCER SCREENING DISCUSSION PROSTATE CANCER SCREENING DISCUSSION [facility] Start: 08-15-2024 Prostate specific antigen measurement Prostate Cancer Screening Discussion [facility] Start: 08-12-2024 End: 08-12-2024 Patient encounter procedure 08/12/2024 9:40 AM EST Office Visit Internal Medicine [facility] [address] [place] [address] Vera Manrique MD [address] [place] [address] 3 month follow up Internal Medicine [facility] Comment on above: 3 month follow up Start: 08-09-2024 [facility] Start: 08-09-2024 End: 08-09-2024 Anesthesia consultation 08/09/2024 12:40 PM EST PAT Pre Anesthesia [address] [place] [address] [facility] [address] [place] [address] declined vv EGD/COLO Pre Anesthesia Comment on above: declined vv EGD/COLO Start: 08-07-2024 Advance Directive Discussion Advance Directive Discussion [facility] Start: 08-02-2024 End: 08-02-2024 Anesthesia consultation 08/02/2024 1:00 PM EST PAT Pre Anesthesia [address] [place] [address] 1, [facility] [address] [place] [address] declined vv EGD/COLO Pre Anesthesia Comment on above: declined vv EGD/COLO Start: 08-01-2024 End: 08-01-2024 ambulatory 08/01/2024 2:00 PM EST Results Only [facility] [address] [place] [address] CBC/IRON STUDIES* Claude [facility]hu [facility] Comment on above: CBC/IRON STUDIES* Start: 07-26-2024 Annual PCP Team Chronic Disease Visit Annual PCP Team Chronic Disease Visit [facility] Start: 07-10-2024 End: 07-10-2024 ambulatory 07/10/2024 2:00 PM [facility] Infusion Center Hematology/Oncology [address] [place] [address] 2ND Hematology/Oncology Comment on above: 2ND Start: 07-10-2024 Annual PCP Team Chronic Disease Visit Annual PCP Team Chronic Disease Visit [facility] Start: 07-10-2024 Complete blood count Hemoglobin/Hematocrit [facility] Start: 07-10-2024 Creatinine measurement Serum Creatinine [facility] Start: 07-10-2024 Hemoglobin/Hematocrit Hemoglobin/Hematocrit [facility] Start: 07-10-2024 Serum Creatinine Serum Creatinine [facility] Start: 07-08-2024 End: 07-08-2024 ambulatory 07/08/2024 2:[address] [facility] Center Hematology/Oncology [address] [place] [address] 2ND Hematology/Oncology Comment on above: 2ND Start: 07-03-2024 End: 07-03-2024 ambulatory 07/03/2024 10:[address] [facility] Center Hematology/Oncology [address] [place] [address] 2ND Hematology/Oncology Comment on above: 2ND Start: 07-01-2024 End: 07-01-2024 Patient encounter procedure 07/01/2024 10:00 AM EST Office Visit Endocrinology [address] [place] [address] Katelyn Leyva MD [address] [place] [address] Type 2 diabetes mellitus with stage 3b chronic kidney disease, with long-term current use of insulin (HCC) [E11.22, N18.32, Z79.4] Endocrinology Comment on above: Type 2 diabetes mellitus with stage 3b c hronic kidney disease, with long-term current use of insulin (HCC) [E11.22, N18.32, Z79.4] Start: 07-01-2024 End: 07-01-2024 ambulatory 07/01/2024 9:00 AM EST Infusion Center Hematology/Oncology [address] [place] [address] 2ND Hematology/Oncology Comment on above: 2ND Start: 06-28-2024 End: 06-28-2024 ambulatory 06/28/2024 2:00 PM EST Infusion Center Hematology/Oncology [address] [place] [address] 2ND Hematology/Oncology Comment on above: 2ND Start: 06-12-2024 End: 06-12-2024 ambulatory 06/12/2024 11:30 AM EST Visit (SP) Office Hematology/Oncology [address] [place] [id number] Faviola Holman APRN.HELIARC WELDER [address] [place] [address] OV/LABS 06/03 Hematology/Oncology Comment on above: OV/LABS 06/03 Start: 05-29-2024 Annual PCP Team Chronic Disease Visit Annual PCP Team Chronic Disease Visit [facility] Start: 05-29-2024 BP Controlled (<130/80) BP Controlled (<130/80) [facility] Start: 05-24-2024 End: 08-23-2024 CBC W Auto Differential panel - Blood COMPLETE BLOOD COUNT AND DIFFERENTIAL Lab STAT 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) (HCC) Expected: 05/24/2024, Expires: 08/23/2024 [facility] Comment on above: Expected: 05/24/2024, Expires: Start: 05-24-2024 End: 08-23-2024 Ferritin [Mass/volume] in Serum or Plasma FERRITIN Lab Routine 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) (HCC) Expected: 05/24/2024, Expires: 08/23/2024 [facility] Comment on above: Expected: 05/24/2024, Expires: Start: 05-24-2024 End: 08-23-2024 Iron and Iron binding capacity panel - Serum or Plasma IRON AND TIBC Lab Routine 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) (HCC) Expected: 05/24/2024, Expires: 08/23/2024 [facility] Work Phone: Comment on above: Expected: 05/24/2024, Expires: Start: 05-23-2024 End: 05-16-2025 Urinalysis complete panel - Urine URINALYSIS, WITH MICROSCOPIC Lab Routine 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, unspecified whether retirement insulin use (HCC) Primary hypertension Persistent proteinuria Expected: 05/23/2024 (Approximate), Expires: 05/16/2025 [facility] Comment on above: Expected: 05/23/2024 (Approximate), Expi res: 05/16/2025 Start: 05-21-2024 End: 05-21-2024 ambulatory 05/21/2024 2:00 PM EDT Results Only [facility] [address] [place] [address] STAGE SET DESIGNER 24 HR URINE KIT - [id number] PICKING UP [facility] Comment on above: STAGE SET DESIGNER 24 HR URINE KIT - [id number] PICKING UP Start: 05-20-2024 End: 05-20-2024 ambulatory 05/20/2024 3:15 PM EDT Results Only 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 Comment on above: Diabetes mellitus due to underlying cond ition with stage 4 chronic kidney disease, unspecified whether retirement insulin use (HCC); Primary hypertension; Metabolic acidosis; Secondary renal hyperparathyroidism (HCC); Hypervitaminosis D; Persistent proteinuria; Anemia of renal disease; Other iron deficiency anemia Start: 05-20-2024 End: 05-20-2024 Patient encounter procedure 05/20/2024 8:30 AM EDT Office Visit Kidney Medicine [address] [place] [address] Janice Hodges, RUNNING SPECIALIST.HELIARC WELDER [address] [place] [address] 3 months w nv Kidney Medicine Comment on above: 3 months w nv Start: 05-16-2024 End: 05-16-2025 Parathyrin.intact [Mass/volume] in Serum or Plasma PTH INTACT Lab Routine Secondary renal hyperparathyroidism (HCC) Hypervitaminosis D Expected: 05/16/2024, Expires: 05/16/2025 [facility] Work Phone: Comment on above: Expected: 05/16/2024, Expires: Start: 05-16-2024 End: 05-16-2025 Protein/Creatinine [Mass Ratio] in Urine PROTEIN / CREATININE RATIO Lab Routine 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, unspecified whether retirement insulin use (HCC) Primary hypertension Persistent proteinuria Expected: 05/16/2024, Expires: 05/16/2025 [facility] Comment on above: Expected: 05/16/2024, Expires: Start: 05-13-2024 End: 05-13-2024 Patient encounter procedure 05/13/2024 10:40 AM EDT Office Visit Endocrinology [address] [place] [address] Katelyn Leyva MD [address] [place] [address] Type 2 diabetes mellitus with stage 3b chronic kidney disease, with long-term current use of insulin (HCC) [E11.22, N18.32, Z79.4] Endocrinology Comment on above: Type 2 diabetes mellitus with stage 3b c hronic kidney disease, with long-term current use of insulin (HCC) [E11.22, N18.32, Z79.4] Start: 05-09-2024 End: 05-09-2024 Patient encounter procedure 05/09/2024 1:40 PM EDT Office Visit Internal Medicine [facility] [address] [place] [address] Vera Manrique MD [address] [place] [address] 3 month follow up Internal Medicine [facility] Comment on above: 3 month follow up Start: 05-02-2024 Annual PCP Team Chronic Disease Visit Annual PCP Team Chronic Disease Visit [facility] Start: 04-30-2024 End: 04-30-2024 Patient encounter procedure 04/30/2024 11:00 AM EDT Office Visit Family Medicine [facility] [address] [place] [address] Angie Mercado PA-C [address] [place] [address] having trouble with high sugars-around in the 200s Family Medicine [facility] Comment on above: having trouble with high sugars-around i n the 200s Start: 04-18-2024 End: 07-18-2024 25-hydroxyvitamin D3 [Mass/volume] in Serum or Plasma VITAMIN D 25 HYDROXY Lab Routine Vitamin D deficiency Expected: 04/18/2024, Expires: 07/18/2024 [facility] Work Phone: Comment on above: Expected: 04/18/2024, Expires: Start: 04-07-2024 Covid-19 Vaccine ( season) Covid-19 Vaccine ( season) [facility] Start: 04-07-2024 Covid-19 Vaccine ( season) Covid-19 Vaccine ( season) [facility] Start: 04-07-2024 Influenza vaccination [facility] Start: 04-03-2024 ANNUAL PCP TEAM CHRONIC DISEASE VISIT ANNUAL PCP TEAM CHRONIC DISEASE VISIT [facility] Start: 04-03-2024 HEMOGLOBIN/HEMATOCRIT HEMOGLOBIN/HEMATOCRIT [facility] Start: 04-03-2024 Serum Creatinine Serum Creatinine [facility] Start: 04-01-2024 End: 04-01-2024 Patient encounter procedure 04/01/2024 4:00 PM EDT Office Visit Internal Medicine [facility] [address] [place] [address] Vera Manrique MD [address] [place] [address] [facility] ER F/U 03/29/2024; Left Hand Pain; Fell and hurt hand Internal Medicine [facility] Comment on above: [facility] ER F/U 03/29/2024; Left Hand Pain; F ell and hurt hand Start: 03-29-2024 End: 03-29-2024 Patient encounter procedure 03/29/2024 2:00 PM EDT Office Visit General Surgery [address] [place] [address] Donna Haynes APRN.HELIARC WELDER [address] [place] [address] EGD/COLONOSCOPY CONSULT General Surgery Comment on above: EGD/COLONOSCOPY CONSULT Start: 03-28-2024 Glaucoma screening Dilated Retinal Exam [facility] Start: 03-28-2024 Hepatitis C antibody, confirmatory test Dilated Retinal Exam [facility] Start: 03-18-2024 End: 03-18-2024 Patient encounter procedure 03/18/2024 10:00 AM EDT Office Visit General Surgery [address] [place] [address] Donna Haynes APRN.HELIARC WELDER [address] [place] [address] EGD/COLONOSCOPY CONSULT General Surgery Comment on above: EGD/COLONOSCOPY CONSULT Start: 03-13-2024 ANNUAL PCP TEAM CHRONIC DISEASE VISIT ANNUAL PCP TEAM CHRONIC DISEASE VISIT [facility] Start: 03-08-2024 End: 03-08-2024 Follow-up encounter 03/08/2024 3:10 PM EDT Visit (SP) Office Hematology/Oncology [address] [place] [address] Nini Freire DO [address] [place] [address] follow up - Hematology/Oncology Comment on above: follow up - Start: 03-08-2024 End: 06-07-2024 Ferritin [Mass/volume] in Serum or Plasma [facility] Comment on above: Expected: 03/08/2024, Expires: Start: 03-08-2024 End: 06-07-2024 Iron and Iron binding capacity panel - Serum or Plasma [facility] Work Phone: Comment on above: Expected: 03/08/2024, Expires: Start: 03-08-2024 End: 06-07-2024 MONOCLONAL PROTEIN, SERUM (BLOOD) [facility] Comment on above: Expected: 03/08/2024, Expires: Start: 03-08-2024 End: 06-07-2024 PROTEIN ELECTROPHORESIS SERUM W/INTERP [facility] Comment on above: Expected: 03/08/2024, Expires: Start: 02-28-2024 ANNUAL PCP TEAM CHRONIC DISEASE VISIT ANNUAL PCP TEAM CHRONIC DISEASE VISIT [facility] Start: 02-26-2024 End: 02-26-2024 Patient encounter procedure Kidney Medicine Comment on above: 3 month follow up; CKD Start: 02-23-2024 End: 05-24-2024 25-hydroxyvitamin D3 [Mass/volume] in Serum or Plasma VITAMIN D 25 HYDROXY Lab Routine Secondary renal hyperparathyroidism (HCC) Vitamin D deficiency Expected: 02/23/2024, Expires: 05/24/2024 [facility] Comment on above: Expected: 02/23/2024, Expires: Start: 02-23-2024 End: 05-24-2024 CBC W Auto Differential panel - Blood COMPLETE BLOOD COUNT AND DIFFERENTIAL Lab Routine Primary hypertension Other iron deficiency anemia Expected: 02/23/2024, Expires: 05/24/2024 [facility] Comment on above: Expected: 02/23/2024, Expires: Start: 02-23-2024 End: 05-24-2024 Parathyrin.intact [Mass/volume] in Serum or Plasma PTH INTACT Lab Routine Secondary renal hyperparathyroidism (HCC) Expected: 02/23/2024, Expires: 05/24/2024 [facility] Comment on above: Expected: 02/23/2024, Expires: Start: 02-23-2024 End: 05-24-2024 Protein/Creatinine [Mass Ratio] in Urine PROTEIN / CREATININE RATIO Lab Routine Primary hypertension Type 2 diabetes mellitus 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, with long-term current use of insulin (HCC) Expected: 02/23/2024, Expires: 05/24/2024 [facility] Work Phone: Comment on above: Expected: 02/23/2024, Expires: Start: 02-23-2024 End: 05-24-2024 Renal function 2000 panel - Serum or Plasma RENAL FUNCTION PANEL Lab Routine Primary hypertension Metabolic acidosis Type 2 diabetes mellitus 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, with long-term current use of insulin (HCC) Expected: 02/23/2024, Expires: 05/24/2024 [facility] Comment on above: Expected: 02/23/2024, Expires: Start: 02-22-2024 End: 02-22-2024 Patient encounter procedure 02/22/2024 1:00 PM EDT Appointment Radiology [address] [place], [place] [address] Screening for abdominal aortic aneurysm [Z13.6] Radiology Comment on above: Screening for abdominal aortic aneurysm [Z13.6] Start: 02-16-2024 End: 02-16-2024 Patient encounter procedure 02/16/2024 1:00 PM EDT Office Visit General Surgery [address] [place] [address] Donna Haynes APRN.HELIARC WELDER [address] [place] [address] Colon cancer screening [Z12.11]; General Surgery Comment on above: Colon cancer screening [Z12.11]; Start: 02-15-2024 HEMOGLOBIN/HEMATOCRIT HEMOGLOBIN/HEMATOCRIT [facility] Start: 02-15-2024 Hepatitis B surface antibody level LDL CHOLESTEROL [facility] Start: 02-15-2024 SERUM CREATININE SERUM CREATININE [facility] Start: 02-07-2024 End: 05-08-2024 Comprehensive metabolic 2000 panel - Serum or Plasma [facility] Comment on above: Expected: 02/07/2024, Expires: Start: 02-07-2024 End: 02-07-2024 Patient encounter procedure 02/07/2024 11:40 AM EDT Office Visit Internal Medicine [facility] [address] [place] [address] Taco Tatum APRN.HELIARC WELDER [address] [place] [address] physical Internal Medicine [facility] Comment on above: physical Start: 01-26-2024 ANNUAL PCP TEAM CHRONIC DISEASE VISIT ANNUAL PCP TEAM CHRONIC DISEASE VISIT [facility] Start: 01-26-2024 HEMOGLOBIN/HEMATOCRIT HEMOGLOBIN/HEMATOCRIT [facility] Start: 01-26-2024 Pneumococcal Vaccine: 65+ (2 - PCV) Pneumococcal Vaccine: 65+ (2 - PCV) [facility] Comment on above: Postponed from 08/21/2013 (Declined at t his time) Start: 01-26-2024 Pneumococcal Vaccine: 65+ (2 of 2 - PCV) Pneumococcal Vaccine: 65+ (2 of 2 - PCV) [facility] Comment on above: Postponed from 08/21/2013 (Declined at t his time) Start: 01-26-2024 PNEUMOCOCCAL: 65+ (2 - PCV) PNEUMOCOCCAL: 65+ (2 - PCV) [facility] Comment on above: Postponed from 08/21/2013 (Declined at t his time) Start: 01-26-2024 SERUM CREATININE SERUM CREATININE [facility] Start: 01-23-2024 End: 04-23-2024 Hemoglobin A1c in Blood HEMOGLOBIN A1C Lab Routine Type 2 diabetes mellitus with stage 3b chronic kidney disease, with long-term current use of insulin (HCC) Expected: 01/23/2024, Expires: 04/23/2024 [facility] Work Phone: Comment on above: Expected: 01/23/2024, Expires: Start: 01-23-2024 End: 04-23-2024 Lipid 1996 panel - Serum or Plasma LIPID PANEL BASIC Lab Routine Pure hypercholesterolemia Expected: 01/23/2024, Expires: 04/23/2024 [facility] Comment on above: Expected: 01/23/2024, Expires: Start: 01-02-2024 End: 01-02-2024 Patient encounter procedure 01/02/2024 12:20 PM EDT Office Visit Internal Medicine [place] [address] [facility] [place] [address] Gloria Rojas, RUNNING SPECIALIST.HELIARC WELDER [address] [place] [address] Discharged from [facility] 12/27/23 Internal Medicine [place] Comment on above: Discharged from [facility] 12/27/23 Start: 11-20-2023 End: 02-19-2024 NONI BY IFA WITH REFLEX NONI BY IFA WITH REFLEX Lab Routine Chronic kidney disease, stage 4, severely decreased GFR (HCC) Expected: 11/20/2023, Expires: 02/19/2024 [facility] Work Phone: Comment on above: Expected: 11/20/2023, Expires: Start: 11-20-2023 End: 02-19-2024 CBC panel - Blood by Automated count COMPLETE BLOOD COUNT Lab Routine Chronic kidney disease, stage 4, severely decreased GFR (HCC) Expected: 11/20/2023, Expires: 02/19/2024 [facility] Work Phone: Comment on above: Expected: 11/20/2023, Expires: Start: 11-20-2023 End: 02-19-2024 Complement C3 [Mass/volume] in Serum or Plasma C3 COMPLEMENT Lab Routine Chronic kidney disease, stage 4, severely decreased GFR (HCC) Expected: 11/20/2023, Expires: 02/19/2024 [facility] Work Phone: Comment on above: Expected: 11/20/2023, Expires: Start: 11-20-2023 End: 02-19-2024 Complement C4 [Mass/volume] in Serum or Plasma C4 COMPLEMENT Lab Routine Chronic kidney disease, stage 4, severely decreased GFR (HCC) Expected: 11/20/2023, Expires: 02/19/2024 [facility] Work Phone: Comment on above: Expected: 11/20/2023, Expires: Start: 11-20-2023 End: 02-19-2024 Microalbumin/Creatinine [Mass Ratio] in Urine ALBUMIN/CREATININE RATIO, URINE Lab Routine Chronic kidney disease, stage 4, severely decreased GFR (HCC) Expected: 11/20/2023, Expires: 02/19/2024 [facility] Work Phone: Comment on above: Expected: 11/20/2023, Expires: Start: 11-20-2023 End: 02-19-2024 Protein/Creatinine [Mass Ratio] in Urine PROTEIN / CREATININE RATIO Lab Routine Chronic kidney disease, stage 4, severely decreased GFR (HCC) Expected: 11/20/2023, Expires: 02/19/2024 [facility] Work Phone: Comment on above: Expected: 11/20/2023, Expires: 4 Start: 11-20-2023 End: 02-19-2024 Renal function 2000 panel - Serum or Plasma RENAL FUNCTION PANEL Lab Routine Chronic kidney disease, stage 4, severely decreased GFR (HCC) Expected: 11/20/2023, Expires: 02/19/2024 [facility] Work Phone: Comment on above: Expected: 11/20/2023, Expires: 4 Start: 11-20-2023 End: 02-19-2024 Urinalysis complete panel - Urine URINALYSIS, WITH MICROSCOPIC Lab Routine Chronic kidney disease, stage 4, severely decreased GFR (HCC) Expected: 11/20/2023, Expires: 02/19/2024 [facility] Work Phone: Comment on above: Expected: 11/20/2023, Expires: 4 Start: 11-17-2023 3 comp foot exam completed DIABETIC FOOT EXAM [facility] Start: 11-17-2023 ANNUAL PCP TEAM CHRONIC DISEASE VISIT ANNUAL PCP TEAM CHRONIC DISEASE VISIT [facility]: 11-17-2023 COVID-19 VACCINE (#1) COVID-19 VACCINE (#1) [facility] Comment on above: Postponed from [birth year]/20/1956 (Declined at t his time) Start: 11-17-2023 Diabetic foot examination Diabetic Foot Exam [facility] Start: 11-17-2023 PNEUMOCOCCAL (2 - PCV) PNEUMOCOCCAL (2 - PCV) [facility] Comment on above: Postponed from 08/21/2013 (Declined at t his time) Start: 11-17-2023 SHINGRIX VACCINE (1 of 2) SHINGRIX VACCINE (1 of 2) [facility] Comment on above: Postponed from 12/19/2007 (Declined at t his time) Start: 10-20-2023 ANNUAL PCP TEAM CHRONIC DISEASE VISIT ANNUAL PCP TEAM CHRONIC DISEASE VISIT [facility] Start: 09-20-2023 ANNUAL PCP TEAM CHRONIC DISEASE VISIT ANNUAL PCP TEAM CHRONIC DISEASE VISIT [facility] Start: 09-20-2023 BP CONTROLLED (<130/80) BP CONTROLLED (<130/80) [facility] in Start: 09-13-2023 End: 12-13-2023 Comprehensive metabolic 2000 panel - Serum or Plasma [facility] Work Phone: Comment on above: Expected: 09/13/2023, Expires: 4 Start: 09-13-2023 End: 12-13-2023 Thyrotropin [Units/volume] in Serum or Plasma [facility] Work Phone: Comment on above: Expected: 09/13/2023, Expires: 4 Start: 09-13-2023 End: 12-13-2023 Thyroxine (T4) free [Mass/volume] in Serum or Plasma [facility] Work Phone: Comment on above: Expected: 09/13/2023, Expires: 4 Start: 09-08-2023 ANNUAL PCP TEAM CHRONIC DISEASE VISIT ANNUAL PCP TEAM CHRONIC DISEASE VISIT [facility] Start: 09-08-2023 BP CONTROLLED (<130/80) BP CONTROLLED (<130/80) [facility] Start: 08-30-2023 Hemoglobin A1c measurement HbA1C [facility] Start: 08-30-2023 Hemoglobin A1c/Hemoglobin.total in Blood HBA1C [facility] Start: 08-23-2023 Patient discharge [facility] Start: 08-07-2023 Advance Directive Discussion Advance Directive Discussion [facility] Start: 08-07-2023 Behavioral Health Screening Behavioral Health Screening [facility] Start: 08-07-2023 Depression Assessment Depression Assessment [facility] Start: 07-23-2023 [facility] Start: 07-11-2023 End: 10-10-2023 COPPER BLOOD [facility] Work Phone: Comment on above: Expected: 07/11/2023, Expires: Start: 07-11-2023 End: 10-10-2023 Haptoglobin [Mass/volume] in Serum or Plasma [facility] Work Phone: Comment on above: Expected: 07/11/2023, Expires: Start: 07-11-2023 End: 10-10-2023 IMMUNOGLOBULINS LICO [facility] Work Phone: Comment on above: Expected: 07/11/2023, Expires: 4 Start: 07-11-2023 End: 10-10-2023 ASHVIN/AGUSTÍN MONET,SER [facility] Work Phone: Comment on above: Expected: 07/11/2023, Expires: 4 Start: 07-11-2023 End: 10-10-2023 Lactate dehydrogenase [Enzymatic activity/volume] in Serum or Plasma [facility] Work Phone: Comment on above: Expected: 07/11/2023, Expires: 4 Start: 07-11-2023 End: 10-10-2023 MONOCLONAL PROTEIN, SERUM (BLOOD) [facility] Work Phone: Comment on above: Expected: 07/11/2023, Expires: 4 Start: 07-11-2023 End: 10-10-2023 PROTEIN ELECTROPHORESIS SERUM W/INTERP [facility] Work Phone: Comment on above: Expected: 07/11/2023, Expires: 4 Start: 06-29-2023 [facility] Start: 06-22-2023 Colsc flx w/rmvl of tumor polyp lesion snare tq COLONOSCOPY W/LESION REMOVAL [facility] Start: 06-22-2023 Colsc flx with directed submucosal njx any sbst COLONOSCOPY SUBMUCOUS NJX [facility] Start: 06-22-2023 Egd insert guide wire dilator passage esophagus EGD GUIDE WIRE INSERTION [facility] Start: 06-22-2023 Egd transoral biopsy single/multiple EGD BIOPSY SINGLE/MULTIPLE [facility] Start: 06-22-2023 Egd transoral control bleeding any method EGD CONTROL BLEEDING ANY [facility] Start: 06-22-2023 Patient discharge [facility] Start: 05-18-2023 Hemoglobin A1c/Hemoglobin.total in Blood HBA1C [facility] Start: 05-17-2023 ANNUAL PCP TEAM CHRONIC DISEASE VISIT ANNUAL PCP TEAM CHRONIC DISEASE VISIT [facility] Start: 04-07-2023 Covid-19 Vaccine ( season) Covid-19 Vaccine () [facility] Start: 04-07-2023 Influenza vaccination [facility] Start: 04-03-2023 End: 06-03-2023 Comprehensive metabolic 2000 panel - Serum or Plasma [facility] Work Phone: Comment on above: Expected: 04/03/2023, Expires: 3 Start: 03-13-2023 End: 05-13-2023 CBC W Auto Differential panel - Blood CBC + DIFF Lab Routine Function kidney decreased Anemia, unspecified type Expected: 03/13/2023, Expires: 05/13/2023 [facility] Work Phone: Comment on above: Expected: 03/13/2023, Expires: 3 Start: 03-04-2023 Incentive spirometry [facility] Start: 03-04-2023 [facility] Start: 02-08-2023 End: 04-10-2023 Lipid 1996 panel - Serum or Plasma LIPID PANEL BASIC Lab Routine Pure hypercholesterolemia Expected: 02/08/2023, Expires: 04/10/2023 [facility] Work Phone: Comment on above: Expected: 02/08/2023, Expires: 3 Start: 11-30-2022 HEMOGLOBIN/HEMATOCRIT HEMOGLOBIN/HEMATOCRIT [facility] Start: 11-29-2022 ANNUAL PCP TEAM CHRONIC DISEASE VISIT ANNUAL PCP TEAM CHRONIC DISEASE VISIT [facility] Start: 11-29-2022 End: 01-29-2023 CBC panel - Blood by Automated count CBC Lab Routine Type 2 diabetes mellitus with stage 3b chronic kidney disease, with long-term current use of insulin (HCC) Expected: 11/29/2022, Expires: 01/29/2023 [facility] Work Phone: Comment on above: Expected: 11/29/2022, Expires: 3 Start: 11-29-2022 End: 01-29-2023 Lipid 1996 panel - Serum or Plasma LIPID PANEL BASIC Lab Routine Pure hypercholesterolemia Expected: 11/29/2022, Expires: 01/29/2023 [facility] Work Phone: Comment on above: Expected: 11/29/2022, Expires: 3 Start: 11-16-2022 End: 01-16-2023 ALBUMIN/CREAT RATIO RND UR ALBUMIN/CREAT RATIO RND UR Lab Routine Type 2 diabetes mellitus with stage 3b chronic kidney disease, with long-term current use of insulin (HCC) Expected: 11/16/2022, Expires: 01/16/2023 [facility] Work Phone: Comment on above: Expected: 11/16/2022, Expires: 3 Start: 11-16-2022 End: 01-16-2023 Comprehensive metabolic 2000 panel - Serum or Plasma COMP METABOLIC PANEL Lab Routine Type 2 diabetes mellitus with stage 3b chronic kidney disease, with long-term current use of insulin (HCC) Expected: 11/16/2022, Expires: 01/16/2023 [facility] Work Phone: Comment on above: Expected: 11/16/2022, Expires: 3 Start: 11-15-2022 Hemoglobin A1c/Hemoglobin.total in Blood HBA1C [facility] Start: 09-08-2022 End: 11-08-2022 ALBUMIN/CREAT RATIO RND UR ALBUMIN/CREAT RATIO RND UR Lab Routine Uncontrolled type 2 diabetes mellitus with hypoglycemia without coma (HCC) Expected: 09/08/2022, Expires: 11/08/2022 [facility] Work Phone: Comment on above: Expected: 09/08/2022, Expires: 3 Start: 09-08-2022 End: 11-08-2022 Hemoglobin A1c in Blood HGB A1C Lab Routine Uncontrolled type 2 diabetes mellitus with hypoglycemia without coma (HCC) Expected: 09/08/2022, Expires: 11/08/2022 [facility] Work Phone: Comment on above: Expected: 09/08/2022, Expires: 3 Start: 08-07-2022 DEPRESSION ASSESSMENT DEPRESSION ASSESSMENT [facility] Start: 07-29-2022 ANNUAL PCP TEAM CHRONIC DISEASE VISIT ANNUAL PCP TEAM CHRONIC DISEASE VISIT [facility] Start: 07-29-2022 BP CONTROLLED (<130/80) BP CONTROLLED (<130/80) [facility] Start: 06-28-2022 End: 08-28-2022 ALBUMIN/CREAT RATIO RND UR ALBUMIN/CREAT RATIO RND UR Lab Routine Type 2 diabetes mellitus with stage 3b chronic kidney disease, with long-term current use of insulin (HCC) Expected: 06/28/2022, Expires: 08/28/2022 [facility] Work Phone: Comment on above: Expected: 06/28/2022, Expires: 3 Start: 06-28-2022 End: 08-28-2022 Lipid 1996 panel - Serum or Plasma LIPID PANEL BASIC Lab Routine Pure hypercholesterolemia Expected: 06/28/2022, Expires: 08/28/2022 [facility] Work Phone: Comment on above: Expected: 06/28/2022, Expires: 3 Start: 06-28-2022 End: 08-28-2022 Renal function 2000 panel - Serum or Plasma RENAL FUNCTION PANEL Lab Routine Type 2 diabetes mellitus with stage 3b chronic kidney disease, with long-term current use of insulin (HCC) Expected: 06/28/2022, Expires: 08/28/2022 [facility] Work Phone: Comment on above: Expected: 06/28/2022, Expires: 3 Start: 06-28-2022 End: 08-28-2022 SCHEDULE LAB TESTING SCHEDULE LAB TESTING Lab Routine Expected: 06/28/2022, Expires: 08/28/2022 [facility] Work Phone: Comment on above: Expected: 06/28/2022, Expires: 3 Start: 06-14-2022 Hemoglobin A1c/Hemoglobin.total in Blood HBA1C [facility] Start: 06-01-2022 Hemoglobin A1c/Hemoglobin.total in Blood HBA1C [facility] Start: 04-26-2022 HEMOGLOBIN/HEMATOCRIT HEMOGLOBIN/HEMATOCRIT [facility] Start: 04-26-2022 Hepatitis B screening URINE ALBUMIN:CREATININE RATIO [facility] Start: 04-26-2022 Hepatitis B surface antibody level LDL CHOLESTEROL [facility] Start: 04-26-2022 SERUM CREATININE SERUM CREATININE [facility] Start: 04-23-2022 3 comp foot exam [facility] Start: 04-23-2022 Adult depression screening assessment DEPRESSION SCREENING [facility] Start: 04-23-2022 BP CONTROLLED (<130/80) BP CONTROLLED (<130/80) [facility] Start: 04-23-2022 zzBP Controlled (<130/80) (Retired) zzBP Controlled (<130/80) (Retired) [facility] Start: 04-07-2022 Influenza vaccination INFLUENZA (#1) [facility] Start: 03-22-2022 Removal of urinary catheter [facility] Work Phone: Start: 03-22-2022 Patient discharge [facility] Work Phone: Start: 03-20-2022 Care planning and problem solving actions [facility] Work Phone: Start: 03-20-2022 Removal of urinary catheter [facility] Work Phone: Start: 03-19-2022 Notification of physician [facility] Work Phone: Start: 03-19-2022 Care regimes management [facility] Work Phone: Start: 03-18-2022 Following clinical pathway protocol [facility] Work Phone: Start: 03-18-2022 Application of intermittent pneumatic compression device [facility] Work Phone: Start: 03-18-2022 Aspiration precautions [facility] Work Phone: Start: 03-18-2022 Assessment of risk of venous thromboembolism [facility] Work Phone: Start: 03-18-2022 Care regimes management [facility] Work Phone: Start: 03-18-2022 Fall prevention [facility] Work Phone: Start: 03-18-2022 Incentive spirometry [facility] Work Phone: Start: 03-18-2022 Inhalation therapy procedure [facility] Work Phone: Start: 03-18-2022 Insertion of catheter into peripheral vein [facility] Work Phone: Start: 03-18-2022 Introduction of urinary catheter [facility] Work Phone: Start: 03-18-2022 Measuring intake and output [facility] Work Phone: Start: 03-18-2022 Methicillin resistant Staphylococcus aureus screening test [facility] Work Phone: Start: 03-18-2022 Providing care according to standard [facility] Work Phone: Start: 03-18-2022 Provision of activity privileges [facility] Work Phone: Start: 03-18-2022 Referral to occupational therapist [facility] Work Phone: Start: 03-18-2022 Referral to service [facility] Work Phone: Start: 03-18-2022 [facility] Work Phone: Start: 03-18-2022 Viral nucleic acid assay [facility] Work Phone: Start: 03-18-2022 Verification routine [facility] Work Phone: Start: 03-18-2022 Legionella pneumophila Ag [Presence] in Urine [facility] Work Phone: Start: 03-18-2022 Streptococcus pneumoniae antigen assay [facility] Work Phone: Start: 03-18-2022 [facility] Work Phone: Start: 03-18-2022 End: 03-18-2022 [facility] Work Phone: Start: 03-18-2022 End: 03-18-2022 Blood culture [facility] Work Phone: Start: 03-12-2022 Patient discharge [facility] Work Phone: Start: 03-12-2022 [facility] Work Phone: Start: 03-11-2022 Application of intermittent pneumatic compression device [facility] Work Phone: Start: 03-11-2022 Following clinical pathway protocol [facility] Work Phone: Start: 03-11-2022 Ambulation without limitation [facility] Work Phone: Start: 03-11-2022 Assessment of risk of venous thromboembolism [facility] Work Phone: Start: 03-11-2022 Cardiac monitoring [facility] Work Phone: Start: 03-11-2022 Care regimes management [facility] Work Phone: Start: 03-11-2022 Catheterization of vein [facility] Work Phone: Start: 03-11-2022 Continuous pulse oximetry [facility] Work Phone: Start: 03-11-2022 Elevation of head of bed [facility] Work Phone: Start: 03-11-2022 Exercises [facility] Work Phone: Start: 03-11-2022 Implementation of planned interventions [facility] Work Phone: Start: 03-11-2022 Insertion of catheter into peripheral vein [facility] Work Phone: Start: 03-11-2022 Measuring intake and output [facility] Work Phone: Start: 03-11-2022 MRI of brain without contrast Brain without Contrast [facility] Work Phone: Start: 03-11-2022 Notification of physician [facility] Work Phone: Start: 03-11-2022 Oxygen therapy [facility] Work Phone: Start: 03-11-2022 Patient referral to dietitian [facility] Work Phone: Start: 03-11-2022 Providing care according to standard [facility] Work Phone: Start: 03-11-2022 Referral to occupational therapist [facility] Work Phone: Start: 03-11-2022 Referral to service [facility] Work Phone: Start: 03-11-2022 Speech therapy assessment [facility] Work Phone: Start: 03-11-2022 Tobacco use cessation education [facility] Work Phone: Start: 03-11-2022 [facility] Work Phone: Start: 03-11-2022 Measurement of occult blood in stool specimen using immunoassay [facility] Work Phone: Start: 03-11-2022 Magnetic resonance angiography of head without contrast MRA Head ONLY without Contrast [facility] Work Phone: Start: 03-11-2022 Magnetic resonance angiography of neck without contrast MRA Neck without Contrast [facility] Work Phone: Start: 03-11-2022 Troponin I measurement [facility] Work Phone: Start: 03-11-2022 Verification routine [facility] Work Phone: Start: 03-11-2022 Admission procedure [facility] Work Phone: Start: 03-11-2022 Oxygen therapy [facility] Work Phone: Start: 11-20-2021 Bacteria identified in Urine by Culture Urine Culture [facility] Work Phone: Start: 10-24-2021 Hemoglobin A1c/Hemoglobin.total in Blood HBA1C [facility] Start: 08-07-2021 DEPRESSION ASSESSMENT DEPRESSION ASSESSMENT [facility] Start: 2020 Colonoscopy COLONOSCOPY [facility] Start: 2020 COLORECTAL CANCER SCREENING COLORECTAL CANCER SCREENING [facility] Start: 2020 Screening for malignant neoplasm of colon [facility] Start: 10-10-2020 Hepatitis C antibody, confirmatory test DILATED RETINAL EXAM [facility] Start: 2017 Hepatitis B Vaccine (1 of 3 - Risk 3-dose series) Hepatitis B Vaccine (1 of 3 - Risk 3-dose series) [facility] Start: 2017 RSV Vaccine (1 - 1-dose 60+ series) RSV Vaccine (1 - 1-dose 60+ series) [facility] Start: 2017 RSV Vaccine (1 - Risk 60-74 years 1-dose series) RSV Vaccine (1 - Risk 60-74 years 1-dose series) [facility] Start: 08-21-2013 PNEUMOCOCCAL (2 - PCV) PNEUMOCOCCAL (2 - PCV) [facility] Start: 12-19-2007 SHINGRIX VACCINE (1 of 2) SHINGRIX VACCINE (1 of 2) [facility] Start: 2002 COLOGUARD (FIT-DNA) COLOGUARD (FIT-DNA) [facility] Start: [address] COLONOGRAPHY [facility] Start: 2002 FECAL OCCULT BLOOD FECAL OCCULT BLOOD [facility] Start: 2002 Screening for malignant neoplasm of colon [facility] Start: 12-19-1975 Anxiety Screening Anxiety Screening [facility] Start: 12-19-1975 Depression Screening Depression Screening [facility] Start: 1962 COVID-19 VACCINE (#1) COVID-19 VACCINE (#1) [facility] Start: 1962 COVID-19 VACCINE (1) [facility] Start: 06-20-1958 COVID-19 VACCINE (#1) COVID-19 VACCINE (#1) [facility] Start: 1957 ABDOMINAL AORTIC ANEURYSM SCREENING ABDOMINAL AORTIC ANEURYSM SCREENING [facility] Start: 1957 Abdominal aortic aneurysm screening Abdominal Aortic Aneurysm Screening [facility] Alanine aminotransfe rase [Enzymatic activity/volume] in Serum or Plasma [facility] Work Phone: Albumin [Mass/volume ] in Serum or Plasma [facility] Work Phone: Alkaline phosphatase [Enzymatic activity/volume] in Serum or Plasma [facility] Work Phone: Anion gap measurement [facility] Work Phone: Aspartate aminotrans ferase [Enzymatic activity/volume] in Serum or Plasma [facility] Work Phone: Bacteria identified in Blood by Culture Blood Culture [facility] Work Phone: Bacteria identified in Urine by Culture Urine Culture [facility] Work Phone: Bilirubin, total measurement [facility] Work Phone: Blood culture [facility] Work Phone: BUN/Creatinine ratio [facility] Work Phone: Calcium [Mass/volume ] in Serum or Plasma [facility] Work Phone: Carbon dioxide, tota l [Moles/volume] in Serum or Plasma [facility] Work Phone: CARDIAC IMPLANTABLE DEVICE CHECK CARDIAC IMPLANTABLE DEVICE CHECK PACEART Routine Pacemaker reprogramming/check 1 Occurrences starting 01/24/2025 [facility] Comment on above: 1 Occurrences starting 01/24/2025 End: 05-20-2025 CBC W Auto Differential panel - Blood COMPLETE BLOOD COUNT AND DIFFERENTIAL Lab Routine Anemia of renal disease Other iron deficiency anemia Once per month for 12 Occurrences starting 05/20/2024 until 05/20/2025 [facility] Comment on above: Once per month for 12 Occurrences starti ng 05/20/2024 until 05/20/2025 Chloride [Moles/volu me] in Serum or Plasma [facility] Work Phone: Cholesterol [Mass/vo lume] in Serum or Plasma [facility] Work Phone: Cholesterol in HDL [Mass/volume] in Serum or Plasma [facility] Work Phone: Cholesterol in LDL [Mass/volume] in Serum or Plasma [facility] Work Phone: Creatinine [Moles/vo lume] in Serum or Plasma [facility] Work Phone: Crtj arven fstl xcp dir arven anast autog grf CREATION FISTULA ARTERIOVENOUS EXTREMITY UPPER ESRD (end stage renal disease) ([facility]) [place] End: 09-30-2025 CYSTATIN C CYSTATIN C Lab Routine Type 2 diabetes mellitus 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, with long-term current use of insulin ([facility]) Once per month for 12 Occurrences starting 09/30/2024 until 09/30/2025 [facility] Work Phone: Comment on above: Once per month for 12 Occurrences starti ng 09/30/2024 until 09/30/2025 End: 01-26-2024 Echocardiography ECHO Cardiology Routine Dyspnea on exertion 1 Occurrences starting 01/25/2023 until 01/26/2024 [facility] Work Phone: Comment on above: 1 Occurrences starting 01/25/2023 until 01/26/2024 End: 06-13-2025 EGD DIAGNOSTIC EGD DIAGNOSTIC Endoscopy Routine Anemia, unspecified type Abnormal weight loss Pacemaker 1 Occurrences starting 06/13/2024 until 06/13/2025 [facility] Work Phone: Comment on above: 1 Occurrences starting 06/13/2024 until 06/13/2025 End: 06-13-2025 Flexible sigmoidoscopy study COLONOSCOPY DIAGNOSTIC Endoscopy Routine Anemia, unspecified type Abnormal weight loss Pacemaker 1 Occurrences starting 06/13/2024 until 06/13/2025 [facility] Comment on above: 1 Occurrences starting 06/13/2024 until 06/13/2025 Glucose [Mass/volume ] in Serum or Plasma [facility] Work Phone: Hematocrit [Volume Fraction] of Blood [facility] Work Phone: Hemoglobin [Mass/vol ume] in Blood [facility] Work Phone: Leukocytes [#/volume ] in Blood [facility] Work Phone: Mean corpuscular hemoglobin concentration determination [facility] Work Phone: Mean corpuscular hemoglobin determination [facility] Work Phone: Measurement of renal function [facility] Work Phone: MONOCLONAL PROT 24 U R W/INTERP MONOCLONAL PROT 24 UR W/INTERP Lab Routine Anemia, unspecified type Ordered: 03/08/2024 [facility] Comment on above: Ordered: 03/08/2024 Neutrophil count [facility] Work Phone: Neutrophil percent differential count [facility] Work Phone: Parathyrin.intact [Mass/volume] in Serum or Plasma PTH INTACT Lab Routine Secondary renal hyperparathyroidism (HCC) Hypervitaminosis D 05/20/2024 9:01 AM EDT [facility] Patient Education [facility] Work Phone: Patient referral [facility] Work Phone: Platelets [#/volume] in Blood [facility] Work Phone: Potassium [Moles/vol ume] in Serum or Plasma [facility] Work Phone: PROT ELEC UR 24HR W/ M SPIKE (P) PROT ELEC UR 24HR W/M SPIKE (P) Lab Routine Anemia, unspecified type Ordered: 03/08/2024 [facility] Comment on above: Ordered: 03/08/2024 PROT ELEC UR 24HR W/ M SPIKE AND INTERP PROT ELEC UR 24HR W/M SPIKE AND INTERP Lab Routine Anemia, unspecified type Ordered: 03/08/2024 [facility] Comment on above: Ordered: 03/08/2024 Protein [Mass/time] in 24 hour Urine PROTEIN, 24 HOUR URINE Lab Routine Anemia, unspecified type Ordered: 03/08/2024 [facility] Comment on above: Ordered: 03/08/2024 End: 05-20-2025 Protein/Creatinine [Mass Ratio] in Urine PROTEIN / CREATININE RATIO Lab Routine 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, unspecified whether retirement insulin use (HCC) Primary hypertension Persistent proteinuria Once per month for 12 Occurrences starting 05/20/2024 until 05/20/2025 [facility] Comment on above: Once per month for 12 Occurrences starti ng 05/20/2024 until 05/20/2025 Protein/Creatinine [ Mass Ratio] in Urine PROTEIN / CREATININE RATIO Lab Routine 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, 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) Primary hypertension Persistent proteinuria 05/20/2024 9:02 AM EDT [facility] Red blood cell count [facility] Work Phone: Red cell distributio n width determination [facility] Work Phone: End: 05-20-2025 Renal function 2000 panel - Serum or Plasma RENAL FUNCTION PANEL Lab Routine 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, 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) Primary hypertension Metabolic acidosis Benign prostatic hyperplasia without lower urinary tract symptoms Once per month for 12 Occurrences starting 05/20/2024 until 05/20/2025 [facility] Comment on above: Once per month for 12 Occurrences starti ng 05/20/2024 until 05/20/2025 Respiratory Panel (PCR) Respiratory Panel (PCR) [facility] Work Phone: Respiratory pathogen s DNA and RNA 12b panel - Unspecified specimen by EVETTE with probe detection [facility] Work Phone: Sodium [Moles/volume ] in Serum or Plasma [facility] Work Phone: Total protein measurement [facility] Work Phone: Triglycerides measurement [facility] Work Phone: Troponin I measurement [facility] Work Phone: End: 11-27-2025 UPPER EXT MAP FOR DIALYSIS [facility]ESS [facility] UPPER EXT MAP FOR DIALYSIS [facility]ESS [facility] Lab Routine Type 2 diabetes mellitus 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, with long-term current use of insulin (HCC) 1 Occurrences starting 11/27/2024 until 11/27/2025 [facility] Work Phone: Comment on above: 1 Occurrences starting 11/27/2024 until 11/27/2025 Urea nitrogen [Mass/volume] in Serum or Plasma [facility] Work Phone: End: 05-20-2025 URINALYSIS, DIPSTICK ONLY URINALYSIS, DIPSTICK ONLY Lab Routine 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, 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) Primary hypertension Persistent proteinuria Benign prostatic hyperplasia without lower urinary tract symptoms Once per month for 12 Occurrences starting 05/20/2024 until 05/20/2025 [facility] Comment on above: Once per month for 12 Occurrences starti ng 05/20/2024 until 05/20/2025 End: 03-08-2025 US Abdominal Aorta for screening US SCREENING FOR AAA Radiology Routine Screening for abdominal aortic aneurysm 1 Occurrences starting 02/07/2024 until 03/08/2025 [facility] Work Phone: Comment on above: 1 Occurrences starting 02/07/2024 until 03/08/2025 End: 03-01-2024 US KIDNEY/BLADDER US KIDNEY/BLADDER Radiology Routine Function kidney decreased Stage 4 chronic kidney disease (HCC) 1 Occurrences starting 01/31/2023 until 03/01/2024 [facility] Work Phone: Comment on above: 1 Occurrences starting 01/31/2023 until 03/01/2024 VLDL cholesterol measurement [facility] Work Phone: End: 04-07-2025 XR Chest PA and Lateral XR CHEST 2V FRONTAL/LAT Radiology Routine Anemia, unspecified type Abnormal weight loss 1 Occurrences starting 03/08/2024 until 04/07/2025 [facility] Comment on above: 1 Occurrences starting 03/08/2024 until 04/07/2025 XR Chest PA and Lateral XR CHEST 2V FRONTAL/LAT Radiology Routine Anemia, unspecified type Abnormal weight loss 03/08/2024 9:24 AM EDT [facility] Immunizations Immunization Date Immunization Notes Care Provider Lilly max 04-30-2024 influenza, high dose seasonal, preservative-free Angie Mercado PA-C Work Phone: [facility] 04-30-2024 influenza virus vacc ine, unspecified formulation Injection Wstr Work Phone: [facility] 07-10-2023 influenza (HD-IIV4) vaccine, age 65+ yr, high dose, quadrivalent, PF (FLUZONE HIGH-DOSE) Leeann Reyes RUNNING SPECIALIST.HELIARC WELDER Work Phone: [facility] 07-10-2023 influenza virus vacc ine, unspecified formulation Taco Tatum APRN.HELIARC WELDER Work Phone: [facility] 04-22-2021 influenza, seasonal, injectable Leida Montano RN [facility] Work Phone: 04-22-2021 influenza virus vacc ine, unspecified formulation Vera Manrique MD Work Phone: [facility] 09-17-2020 influenza, injectabl e, quadrivalent, preservative free Dr. Vera Manrique Work Phone: [facility] 09-17-2020 influenza, seasonal, injectable Dr. Vera Manrique Work Phone: [facility] 09-17-2020 influenza, seasonal, injectable, preservative free Leida Montano RN [facility] Work Phone: 05-07-2019 influenza, injectabl e, quadrivalent, contains preservative Leida Montano RN [facility] 04-30-2019 influenza, injectabl e, quadrivalent, preservative free Dr. Vera Manrique Work Phone: [facility] 04-30-2019 influenza, seasonal, injectable Dr. Vera Manrique Work Phone: [facility] 04-30-2019 influenza, seasonal, injectable, preservative free Leida Montano [facility] [facility] Work Phone: 05-05-2018 influenza, injectabl e, quadrivalent, contains preservative Leida Montano RN [facility] 04-18-[address] Vera Manrique Work Phone: [facility] 04-18-2018 influenza, seasonal, injectable, preservative free Leida Montano [facility] Work Phone: 10-06-2015 TD(adult) unspecifie d formulation Leida Montano RN [facility] 10-06-2015 tetanus and diphther ia toxoids, adsorbed, preservative free, for adult use (2 Lf of tetanus toxoid and 2 Lf of diphtheria toxoid) Leida Montano RN [facility] Work Phone: 04-30-2015 influenza, injectabl e, quadrivalent, contains preservative Leida Montano RN [facility] 05-10-2014 influenza, seasonal, injectable Leida Montano RN [facility] 03-20-2014 tetanus toxoid, redu shay diphtheria toxoid, and acellular pertussis vaccine, adsorbed Leida Montano [facility] Work Phone: 05-14-2013 influenza virus vacc ine, unspecified formulation Leida Montano [facility] Work Phone: 08-21-2012 pneumococcal polysaccharide vaccine, 23 valent Leida Montano RN [facility] 06-11-2012 influenza virus vacc ine, unspecified formulation Leida Montano RN [facility] 06-23-2010 influenza virus vacc ine, unspecified formulation Leida Montano RN [facility] Work Phone: 06-03-2009 influenza virus vacc ine, unspecified formulation Leida Montano [facility] 06-03-2009 tetanus toxoid, redu shay diphtheria toxoid, and acellular pertussis vaccine, adsorbed Leida Montano [facility] Payers Date Payer Category Payer Self-pay [id number] 2019 Medicaid [place] [id number] 2019-Present [phone] [address] [place] [address] Medicaid [id number] 2019 Medicaid [id number] 2017 Medicaid [id number] 1955 Unknown [id number] 1955 Unknown [id number] Unknown [id number] Unknown [id number] Unknown [id number] Unknown [id number] Unknown [id number] Unknown [id number] Unknown [id number] Unknown [id number] Unknown [id number] Unknown [id number] Social History Date Type Detail Facility Start: 09-06-2011 End: 04-28-2025 Tobacco smoking status CAIS Ex-smoker [facility] End: 08-07-1994 History of tobacco use Cigar Smoker [facility] Start: 07-27-2021 End: 09-30-2024 Alcohol intake Current non-drinker of alcohol (finding) [facility] Start: 1955 Sex Assigned At Not on file [facility] Start: 11-05-2021 End: 05-17-2022 Exposure to SARS-CoV-2 (event) Not sure [facility] Start: 11-15-2021 End: 08-21-2023 Tobacco smoking status NHIS Unknown if ever smoked [facility] Start: 12-14-2020 None [facility] Start: 09-23-2019 Alone [facility] Start: 12-14-2020 Non-smoker [facility] Work Phone: Start: 1955 Sex Assigned At Male [facility] Start: 03-11-2022 Cigarettes [facility] End: 08-07-1994 History of tobacco use Current smoker [facility] Start: 09-06-2011 End: 03-08-2024 Tobacco use and exposure Smokeless tobacco non-user [facility] Start: 05-17-2022 Tobacco Comment quit [address] [facility] Start: 01-25-2023 End: 04-22-2025 History of Social function [facility] Work Phone: Start: 01-25-2023 End: 04-22-2025 Tobacco use panel [facility] Work Phone: Start: 07-08-2012 Adult Depression Screening Assessment 0 [facility] Work Phone: Start: 10-01-2024 End: 04-22-2025 Alcoholic beverage intake Ex-drinker (finding) [facility] How often to you hav e a drink containing alcohol? Never [facility] Tobacco smoking status [facility] Start: 04-28-2025 Sex Male (finding) [facility] Medical Equipment Procedure Code Equipment Code Equipment Origin al Text Equipment Identifier Dates Colonoscopy MARKER,ENDO SPOT KEIKO INK FDA Start: 06-22-2023 Colonoscopy MARKER,ENDO SPOT KEIKO INK FDA Start: 06-22-2023 Colonoscopy MARKER,ENDO SPOT KEIKO INK FDA Start: 06-22-2023 Colonoscopy MARKER,ENDO SPOT KEIKO INK FDA Start: 06-22-2023 Colonoscopy MARKER,ENDO SPOT KEIKO INK FDA Start: 06-22-2023 [id number], [id number], [id number], [id number], [id number], [id number] Start: 04-17-2018 End: 01-04-2024 Comment on above: Test blood sugar(s) one times daily. Dx: Type 2 DM - Uncontrolled E11.65 Insulin: Yes Use one needle daily for each insulin dose, 4 x's daily. Type 2 DM, insulin dependent. Use to check blood s ugars as directed Test blood sugar(s) three times daily. Dx: Type 2 DM - Uncontrolled E11.65 Insulin: Yes [facility] FDA Start: 03-05-2019 [facility] FDA Start: 03-05-2019 [facility] FDA Start: 03-05-2019 [facility] FDA Start: 03-05-[address] [facility] FDA Start: 03-05-2019 [facility] FDA Start: 03-05-2019 [facility] FDA Start: 03-05-2019 [facility] FDA Start: 03-05-2019 [facility] FDA Start: 03-05-2019 [facility] FDA Start: 03-05-2019 [facility] FDA Start: 03-05-2019 [facility] FDA Start: 03-05-[address] [facility] FDA Start: 03-05-2019 [facility] FDA Start: 03-05-2019 [facility] FDA Start: 03-05-[address] [facility] FDA Start: 03-05-[address] [facility] FDA Start: 03-05-[address] [facility] FDA Start: 03-05-[address] [facility] FDA Start: 03-05-2019 [facility] FDA Start: 03-05-[address] [facility] FDA Start: 03-05-[address] [facility] FDA Start: 03-05-[address] [facility] FDA Start: 03-05-[address] [facility] FDA Start: 03-05-[address] [facility] FDA Start: 03-05-[address] [facility] FDA Start: 03-05-[address] [facility] FDA Start: 03-05-[address] [facility] FDA Start: 03-05-[address] [facility] FDA Start: 03-05-[address] [facility] FDA Start: 03-05-[address] [facility] FDA Start: 03-05-2019 [facility] FDA Start: 03-05-2019 [facility] FDA Start: 03-05-[address] [facility] FDA Start: 03-05-2019 [facility] FDA Start: 03-05-[address] [facility] FDA Start: 03-05-[address] [facility] FDA Start: 03-05-[address] [facility] FDA Start: 03-05-[address] [facility] FDA Start: 03-05-2019 [facility] FDA Start: 03-05-[address] [facility] FDA Start: 03-05-[address] [facility] FDA Start: 03-05-[address] [facility] FDA Start: 03-05-[address] [facility] FDA Start: 03-05-[address] [facility] FDA Start: 03-05-[address] [facility] FDA Start: 03-05-[address] [facility] FDA Start: 03-05-[address] [facility] FDA Start: 03-05-[address] [facility] FDA Start: 03-05-[address] [facility] FDA Start: 03-05-[address] [facility] FDA Start: 03-05-[address] [facility] FDA Start: 03-05-[address] [facility] FDA Start: 03-05-[address] [facility] FDA Start: 03-05-2019 Goals Date Patient Goal Desired Activity /State Personal health goal Personal health goal Comment on above: Formatting of this n ote might be different from the original. Get sugar under control better Personal health goal Comment on above: Formatting of this n ote might be different from the original. Would like to get his blood sugar better agrees to Formatting of this n ote might be different from the original. Would like to get his blood sugar better goal less than 8 HgA1C Comment on above: Formatting of this n ote might be different from the original. Get sugar under control better Comment on above: Formatting of this n ote might be different from the original. Would like to get his blood sugar better agrees to Formatting of this n ote might be different from the original. Would like to get his blood sugar better goal less than 8 HgA1C Functional Status Date Assessment Result Facility 04-22-2025 Total score [AUDIT-C] 0 04/22/20 1:42 PM EDT Aubrey Belcher MA [facility] 03-25-2025 Total score [AUDIT-C] 0 03/25/20 1:03 PM EDT Aubrey Belcher MA [facility] 03-22-2022 Functional status Ambulates [facility] Work Phone: 03-12-2022 Functional status Ambulates [facility] Work Phone: 08-24-2019 Are you deaf, or do you have serious difficulty hearing No 08/24/2019 2:21 PM Krystin Chavez (Rn), RN No [facility] 08-24-2019 Are you blind, or do you have serious difficulty seeing, even when wearing glasses No 08/24/2019 2:21 PM Krystin Chavez (Rn), RN No [facility] 08-24-2019 Do you have serious difficulty walking or climbing stairs No 08/24/2019 2:21 PM Krystin Chavez (Rn), RN No [facility] 08-24-2019 Do you have difficul ty dressing or bathing No 08/24/2019 2:21 PM Krystin Chavez (Rn), RN No [facility] 08-24-2019 Because of a physica l, mental, or emotional condition, do you have difficulty doing errands alone such as visiting a physician's office or shopping No 08/24/2019 2:21 PM Krystin Chavez (Rn), RN No [facility] Mental Status Date Assessment Result Facility 04-28-2025 Cognitive function Level Of Cons ciousness Awake [facility] Work Phone: 08-23-2023 Cognitive function Voice/Name [facility] Work Phone: 06-22-2023 Cognitive function Touch/Shaking [facility] Work Phone: 06-22-2023 Cognitive function Patient Orien tation Person;Place;Time [facility] Work Phone: 10-02-2022 Cognitive function Level Of Cons ciousness Awake;Alert [facility] Work Phone: 03-22-2022 Cognitive function Voice/Name [facility] Work Phone: 03-18-2022 Cognitive function Level Of Cons ciousness Awake;Alert;Appropriate;Fol lows Commands [facility] Work Phone: 03-12-2022 Cognitive function Voice/Name [facility] Work Phone: 03-11-2022 Cognitive function Awake;Alert;A ppropriate;Fol lows Commands [facility] Work Phone: 08-24-2019 Because of a physica l, mental, or emotional condition, do you have serious difficulty concentrating, remembering, or making decisions No 08/24/2019 2:21 PM Krystin Chavez (Rn), RN No [facility] Clinical Notes 11-08-2011 to 06-16-2025 Note Date & Type Note Facility 06-16-2025 Note HNO ID: [id number] Author: SAYDA MORENO LPN Service: ? Author Type: Licensed Nurse Type: Progress Notes Filed: 06/16/2025 08:59 Note Text: Injection deferred, parameters not met HGB 10.8 Sayda Moreno LPN [facility] 05-26-2025 Note [facility] 05-20-2025 Note HNO ID: [id number] Author: AZRA BRUCE LPN Service: ? Author Type: Licensed Nurse Type: Progress Notes Filed: 05/20/2025 14:24 Note Text: Patient here for injection of Aranesp. Given SQ in left arm. Patient tolerated well. Azra Bruce LPN [facility] 05-12-2025 Note HNO ID: [id number] Author: JANE ANDREW LPN Service: ? Author Type: Licensed Nurse Type: Progress Notes Filed: 05/12/2025 16:11 Note Text: Pt received high dose flu vaccine in office as requested. [facility] 05-12-2025 Note [facility] 05-06-2025 Note [facility] 05-03-2025 Hospital Discharge instructions Patient Education 05/03/2025 11:16:15 Hypertension, Adult Hypertension, Adult High blood pressure (hypertension) is when the force of blood pumping through the arteries is too strong. The arteries are the blood vessels that carry blood from the heart throughout the body. Hypertension forces the heart to work harder to pump blood and may cause arteries to become narrow or stiff. Untreated or uncontrolled hypertension can cause a heart attack, heart failure, a stroke, kidney disease, and other problems. A blood pressure reading consists of a higher number over a lower number. Ideally, your blood pressure should be below 120/80. The first (top) number is called the systolic pressure. It is a measure of the pressure in your arteries as your heart beats. The second (bottom) number is called the diastolic pressure. It is a measure of the pressure in your arteries as the heart relaxes. What are the causes? The exact cause of this condition is not known. There are some conditions that result in or are related to high blood pressure. What increases the risk? Some risk factors for high blood pressure are under your control. The following factors may make you more likely to develop this condition: Smoking. Having type 2 diabetes mellitus, high cholesterol, or both. Not getting enough exercise or physical activity. Being overweight. Having too much fat, sugar, calories, or salt (sodium) in your diet. Drinking too much alcohol. Some risk factors for high blood pressure may be difficult or impossible to change. Some of these factors include: Having chronic kidney disease. Having a family history of high blood pressure. Age. Risk increases with age. Race. You may be at higher risk if you are . Gender. Men are at higher risk than women before age 45. After age 65, women are at higher risk than men. Having obstructive sleep apnea. Stress. What are the signs or symptoms? High blood pressure may not cause symptoms. Very high blood pressure (hypertensive crisis) may cause: Headache. Anxiety. Shortness of breath. Nosebleed. Nausea and vomiting. Vision changes. Severe chest pain. Seizures. How is this diagnosed? This condition is diagnosed by measuring your blood pressure while you are seated, with your arm resting on a flat surface, your legs uncrossed, and your feet flat on the floor. The cuff of the blood pressure monitor will be placed directly against the skin of your upper arm at the level of your heart. It should be measured at least twice using the same arm. Certain conditions can cause a difference in blood pressure between your right and left arms. Certain factors can cause blood pressure readings to be lower or higher than normal for a short period of time: When your blood pressure is higher when you are in a health care provider's office than when you are at home, this is called white coat hypertension. Most people with this condition do not need medicines. When your blood pressure is higher at home than when you are in a health care provider's office, this is called masked hypertension. Most people with this condition may need medicines to control blood pressure. If you have a high blood pressure reading during one visit or you have normal blood pressure with other risk factors, you may be asked to: Return on a different day to have your blood pressure checked again. Monitor your blood pressure at home for 1 week or longer. If you are diagnosed with hypertension, you may have other blood or imaging tests to help your health care provider understand your overall risk for other conditions. How is this treated? This condition is treated by making healthy lifestyle changes, such as eating healthy foods, exercising more, and reducing your alcohol intake. Your health care provider may prescribe medicine if lifestyle changes are not enough to get your blood pressure under control, and if: Your systolic blood pressure is above 130. Your diastolic blood pressure is above 80. Your personal target blood pressure may vary depending on your medical conditions, your age, and other factors. Follow these instructions at home: Eating and drinking Eat a diet that is high in fiber and potassium, and low in sodium, added sugar, and fat. An example eating plan is called the DASH (Dietary Approaches to Stop Hypertension) diet. To eat this way: ?Eat plenty of fresh fruits and vegetables. Try to fill one half of your plate at each meal with fruits and vegetables. ?Eat whole grains, such as whole-wheat pasta, brown rice, or whole-grain bread. Fill about one fourth of your plate with whole grains. ?Eat or drink low-fat dairy products, such as skim milk or low-fat yogurt. ?Avoid fatty cuts of meat, processed or cured meats, and poultry with skin. Fill about one fourth of your plate with lean proteins, such as fish, chicken without skin, beans, eggs, or tofu. ?Avoid pre-made and processed foods. These tend to be higher in sodium, added sugar, and fat. Reduce your daily sodium intake. Most people with hypertension should eat less than 1,500 mg of sodium a day. Do not drink alcohol if: ?Your health care provider tells you not to drink. ?You are , may be , or are planning to become . If you drink alcohol: ?Limit how much you use to: ?0 1 drink a day for women. ?0 2 drinks a day for men. ?Be aware of how much alcohol is in your drink. In the [place] one drink equals one 12 oz bottle of beer (355 mL), one 5 oz glass of wine (148 mL), or one 1 oz glass of hard liquor (44 mL). Lifestyle Work with your health care provider to maintain a healthy body weight or to lose weight. Ask what an ideal weight is for you. Get at least 30 minutes of exercise most days of the week. Activities may include walking, swimming, or biking. Include exercise to strengthen your muscles (resistance exercise), such as Pilates or lifting weights, as part of your weekly exercise routine. Try to do these types of exercises for 30 minutes at least 3 days a week. Do not use any products that contain nicotine or tobacco, such as cigarettes, e-cigarettes, and chewing tobacco. If you need help quitting, ask your health care provider. Monitor your blood pressure at home as told by your health care provider. Keep all follow-up visits as told by your health care provider. This is important. Medicines Take gchx-tym-wvzupdx and prescription medicines only as told by your health care provider. Follow directions carefully. Blood pressure medicines must be taken as prescribed. Do not skip doses of blood pressure medicine. Doing this puts you at risk for problems and can make the medicine less effective. Ask your health care provider about side effects or reactions to medicines that you should watch for. Contact a health care provider if you: Think you are having a reaction to a medicine you are taking. Have headaches that keep coming back (recurring). Feel dizzy. Have swelling in your ankles. Have trouble with your vision. Get help right away if you: Develop a severe headache or confusion. Have unusual weakness or numbness. Feel faint. Have severe pain in your chest or abdomen. Vomit repeatedly. Have trouble breathing. Summary Hypertension is when the force of blood pumping through your arteries is too strong. If this condition is not controlled, it may put you at risk for serious complications. Your personal target blood pressure may vary depending on your medical conditions, your age, and other factors. For most people, a normal blood pressure is less than 120/80. Hypertension is treated with lifestyle changes, medicines, or a combination of both. Lifestyle changes include losing weight, eating a healthy, low-sodium diet, exercising more, and limiting alcohol. This information is not intended to replace advice given to you by your health care provider. Make sure you discuss any questions you have with your health care provider. Document Released: 07/24/2006 Document Revised: 04/03/2019 Document Reviewed: 04/03/2019 [employer] Patient Education 2020 [employer] Follow Up Care 04/28/2025 18:09:44 With:Please call [facility] when you return home to begin your services [phone] Address:Unknown When:1-2 days With:ARSEN CURTIS MD Address: [address] [facility] [place] [address]- When:5 to 7 days With:VERA MANRIQUE MD Address: [address] [place] [address]- When:1-2 days Comments:Please call the office to schedule your hospital follow up appointment . [facility] 05-03-2025 Note Discharge Instructions Thank you for allowing [facility] to assist you with your healthcare needs. The following is important discharge information regarding your hospital visit. Your Care Team VERA MANRIQUE MD Your Diagnosis Chronic subdural hematoma CKD (chronic kidney disease), stage V H/O sick sinus syndrome History of CVA with residual deficit Hypertensive urgency Type 2 diabetes mellitus with diabetic neuropathy What to do next Instructions From Your Doctor Home OT Recommended. Follow with [facility]. Follow Up Appointments Follow Up with Please call [facility] when you return home to begin your services 2 [phone] When:Within 1-2 days Follow Up with ARSEN CURTIS MD When:Within 5 to 7 days Where:[address] [facility] [place], [place] [id number]- Follow Up with VERA MANRIQUE MD When:Within 1-2 days Where:[address] [place] [address]- Additional Information: Please call the office to schedule your hospital follow up appointment . The Following Activity and Diet Have Been Ordered for You Discharge Activity - Ordered -- Resume your pre-hospitalization activity, 05/03/25 9:11:00 EDT Discharge Diet - Ordered -- No changes were made to your diet during your hospital stay. Please resume your pre hospitalization diet on discharge., 05/03/25 9:11:00 EDT The Following Equipment Has Been Ordered for You No qualifying data available. The Following Treatments Have Been Ordered for You Discharge Labs No qualifying data available. Discharge Radiology No qualifying data available. Other Therapies Occupational Therapy Outpatient Eval & Treat (Occupational Therapy Outpatient Evaluation and Treatment) - Future -- 05/02/25, Unspecified, Dolores, hypertensive urgency, Weakness, Future Order, Once, No Post Acute Orders No qualifying data available. Someone Will Contact You Regarding These Home Health Referrals No home referrals have been ordered for you. No one will call you. Allergies Glucophage Dizziness Medications Please ask your primary doctor or pharmacist before taking any other medication not listed, including over the counter drugs, herbal medications, vitamins and or supplements as they may interact with your home medications. What How Much When Instructions Last Dose New carvedilol (carvedilol 25 mg oral tablet) 1 tab(s) by mouth Twice daily with meals New doxazosin (doxazosin 4 mg oral tablet) 1 tab(s) by mouth Once a day Pickup at [facility] [facility][id number] Changed hydrALAZINE (hydrALAZINE 50 mg oral tablet) 2 tab(s) by mouth Every 8 hours Pickup at [facility]/pharmacy #[id number] Unchanged amLODIPine (amLODIPine 1 mg/ mL oral liquid) 10 Milliliter by mouth Once a day Unchanged aspirin (aspirin 81 mg oral delayed release tablet) 1 tab(s) by mouth Every day Unchanged atorvastatin (atorvastatin 80 mg oral tablet) 1 tab(s) by mouth Once a day Unchanged clopidogrel (clopidogrel 75 mg oral tablet) 1 tab(s) by mouth Once a day Unchanged folic acid 0.4 Milligram Once a day Unchanged insulin glargine (Lantus 100 units/ mL10 ml vial solution) 20 unit(s) Subcutaneous Once a day Unchanged insulin lispro (HumaLOG) (HumaLOG 100 units/ mL injectable solution VIAL) 2 unit(s) Subcutaneous Three (3) times a day Unchanged melatonin (melatonin 3 mg oral tablet, disintegrating) 1 tab(s) by mouth Daily at bedtime as needed for as needed for insomnia Unchanged metoprolol (Toprol-XL) 100 Milligram by mouth Once a day Unchanged senna (senna (sennosides) 8.6 mg oral tablet) 1 tab(s) by mouth Three (3) times a day as needed for for constipation Unchanged tamsulosin (tamsulosin 0.4 mg oral capsule) 1 cap by mouth Daily at bedtime Unchanged traZODone (traZODone 50 mg oral tablet) 1 tab(s) by mouth Daily at bedtime Pharmacy Information [facility]/pharmacy #[id number]: [address] [place], [place] [id number] [phone] What How Much When Comments Stop Taking losartan (losartan 25 mg oral tablet) 1 tab(s) by mouth Once a day Please take this list to your next doctor s visit. Bring all medications you take, including over the counter medications, herbals and other supplements with you to your doctor s visit. Patients and families are reminded to discard old lists and to update any records with all medication providers or retail pharmacies. Education Materials Hypertension, Adult High blood pressure (hypertension) is when the force of blood pumping through the arteries is too strong. The arteries are the blood vessels that carry blood from the heart throughout the body. Hypertension forces the heart to work harder to pump blood and may cause arteries to become narrow or stiff. Untreated or uncontrolled hypertension can cause a heart attack, heart failure, a stroke, kidney disease, and other problems. A blood pressure reading consists of a higher number over a lower number. Ideally, your blood pressure should be below 120/80. The first (top) number is called the systolic pressure. It is a measure of the pressure in your arteries as your heart beats. The second (bottom) number is called the diastolic pressure. It is a measure of the pressure in your arteries as the heart relaxes. What are the causes? The exact cause of this condition is not known. There are some conditions that result in or are related to high blood pressure. What increases the risk? Some risk factors for high blood pressure are under your control. The following factors may make you more likely to develop this condition: Smoking. Having type 2 diabetes mellitus, high cholesterol, or both. Not getting enough exercise or physical activity. Being overweight. Having too much fat, sugar, calories, or salt (sodium) in your diet. Drinking too much alcohol. Some risk factors for high blood pressure may be difficult or impossible to change. Some of these factors include: Having chronic kidney disease. Having a family history of high blood pressure. Age. Risk increases with age. Race. You may be at higher risk if you are . Gender. Men are at higher risk than women before age 45. After age 65, women are at higher risk than men. Having obstructive sleep apnea. Stress. What are the signs or symptoms? High blood pressure may not cause symptoms. Very high blood pressure (hypertensive crisis) may cause: Headache. Anxiety. Shortness of breath. Nosebleed. Nausea and vomiting. Vision changes. Severe chest pain. Seizures. How is this diagnosed? This condition is diagnosed by measuring your blood pressure while you are seated, with your arm resting on a flat surface, your legs uncrossed, and your feet flat on the floor. The cuff of the blood pressure monitor will be placed directly against the skin of your upper arm at the level of your heart. It should be measured at least twice using the same arm. Certain conditions can cause a difference in blood pressure between your right and left arms. Certain factors can cause blood pressure readings to be lower or higher than normal for a short period of time: When your blood pressure is higher when you are in a health care provider's office than when you are at home, this is called white coat hypertension. Most people with this condition do not need medicines. When your blood pressure is higher at home than when you are in a health care provider's office, this is called masked hypertension. Most people with this condition may need medicines to control blood pressure. If you have a high blood pressure reading during one visit or you have normal blood pressure with other risk factors, you may be asked to: Return on a different day to have your blood pressure checked again. Monitor your blood pressure at home for 1 week or longer. If you are diagnosed with hypertension, you may have other blood or imaging tests to help your health care provider understand your overall risk for other conditions. How is this treated? This condition is treated by making healthy lifestyle changes, such as eating healthy foods, exercising more, and reducing your alcohol intake. Your health care provider may prescribe medicine if lifestyle changes are not enough to get your blood pressure under control, and if: Your systolic blood pressure is above 130. Your diastolic blood pressure is above 80. Your personal target blood pressure may vary depending on your medical conditions, your age, and other factors. Follow these instructions at home: Eating and drinking Eat a diet that is high in fiber and potassium, and low in sodium, added sugar, and fat. An example eating plan is called the DASH (Dietary Approaches to Stop Hypertension) diet. To eat this way: ? Eat plenty of fresh fruits and vegetables. Try to fill one half of your plate at each meal with fruits and vegetables. ? Eat whole grains, such as whole-wheat pasta, brown rice, or whole-grain bread. Fill about one fourth of your plate with whole grains. ? Eat or drink low-fat dairy products, such as skim milk or low-fat yogurt. ? Avoid fatty cuts of meat, processed or cured meats, and poultry with skin. Fill about one fourth of your plate with lean proteins, such as fish, chicken without skin, beans, eggs, or tofu. ? Avoid pre-made and processed foods. These tend to be higher in sodium, added sugar, and fat. Reduce your daily sodium intake. Most people with hypertension should eat less than 1,500 mg of sodium a day. Do not drink alcohol if: ? Your health care provider tells you not to drink. ? You are , may be , or are planning to become . If you drink alcohol: ? Limit how much you use to: ? 0 1 drink a day for women. ? 0 2 drinks a day for men. ? Be aware of how much alcohol is in your drink. In the [place] one drink equals one 12 oz bottle of beer (355 mL), one 5 oz glass of wine (148 mL), or one 1 oz glass of hard liquor (44 mL). Lifestyle Work with your health care provider to maintain a healthy body weight or to lose weight. Ask what an ideal weight is for you. Get at least 30 minutes of exercise most days of the week. Activities may include walking, swimming, or biking. Include exercise to strengthen your muscles (resistance exercise), such as Pilates or lifting weights, as part of your weekly exercise routine. Try to do these types of exercises for 30 minutes at least 3 days a week. Do not use any products that contain nicotine or tobacco, such as cigarettes, e-cigarettes, and chewing tobacco. If you need help quitting, ask your health care provider. Monitor your blood pressure at home as told by your health care provider. Keep all follow-up visits as told by your health care provider. This is important. Medicines Take ammp-jwp-gozfdpn and prescription medicines only as told by your health care provider. Follow directions carefully. Blood pressure medicines must be taken as prescribed. Do not skip doses of blood pressure medicine. Doing this puts you at risk for problems and can make the medicine less effective. Ask your health care provider about side effects or reactions to medicines that you should watch for. Contact a health care provider if you: Think you are having a reaction to a medicine you are taking. Have headaches that keep coming back (recurring). Feel dizzy. Have swelling in your ankles. Have trouble with your vision. Get help right away if you: Develop a severe headache or confusion. Have unusual weakness or numbness. Feel faint. Have severe pain in your chest or abdomen. Vomit repeatedly. Have trouble breathing. Summary Hypertension is when the force of blood pumping through your arteries is too strong. If this condition is not controlled, it may put you at risk for serious complications. Your personal target blood pressure may vary depending on your medical conditions, your age, and other factors. For most people, a normal blood pressure is less than 120/80. Hypertension is treated with lifestyle changes, medicines, or a combination of both. Lifestyle changes include losing weight, eating a healthy, low-sodium diet, exercising more, and limiting alcohol. This information is not intended to replace advice given to you by your health care provider. Make sure you discuss any questions you have with your health care provider. Document Released: 07/24/2006 Document Revised: 04/03/2019 Document Reviewed: 04/03/2019 [employer] Patient Education 2020 [employer]. Additional Information VACCINATE! IT SAVES LIVES! Members of the community who have not yet received the COVID-19 vaccine and would like to receive it can visit one of [facility] vaccine clinics. There are many vaccine clinic locations within the [facility]. For locations and available times, please visit [email or web address] [email or web address] It is important to note that some COVID mobile vaccine clinics are held outdoors and may be canceled in rainy or stormy conditions. To learn more about pediatric vaccinations (ages 5-11), we invite you to visit the [facility] webpage. [email or web address]/p ages/5373-Irzwt-[email or web address]-Freq [email or web address]-[email or web address] To learn more about the COVID-19 vaccine, we invite you to visit the CDC website for a list of frequently asked questions.https://www.cdc.gov/co ronavirus/2019-ncov/vaccines/faq .html [facility] Patient Portal Access Instructions: Stay connected with your healthcare team and access your personal medical information anytime with the [facility] Patient Portal. Please follow the directions below to create your [facility] account: 1.Access the email account you provided upon registration to the hospital/physician office.2.Look for an invitation email from [facility].3.Open the email and access the invitation link: Accept Invitation to [facility].4.Fill in the required patel to create your account. To access your account, visit [facility]/[employer] or scan the [employer] code above. Click the blue button labeled Access Patient Portal and then log in with the username and password that you created in the steps above. You will be able to view your test results, lab results, a summary of your visits, upcoming appointments and more. There is also a convenient messaging option where you can send secure messages to your provider. In addition, you will have the ability to download any documents or summaries to your computer and/or send the information securely to a physician. Remember that your healthcare information is confidential, so carefully consider who you will allow to register on the [facility] Patient Portal for access to your information. You can also access the [facility] Patient Portal on the [employer] tierra. Simply click on Patient Portal and then log into your account. If you would like to receive a full copy of your medical records, please contact the [facility] Medical Records Department by calling [phone], Monday through Monday between 8 a.m. and 4:30 p.m. HOW TO SAFELY DISPOSE OF PRESCRIPTION MEDICATIONS Please use one of the following methods to safely dispose of your unused medications. 1.Use a drug disposal kit: the drug disposal pouch allows you to safely discard your old and unused drugs. Ask your nurse to give you one when you are discharged.2.Visit a local take-back location: Many local pharmacies and police departments have programs that collect old and unwanted prescription drugs. Call your local pharmacy or go to http://bit.[employer]1E2Tn9k to find one close to you.3.Make use of household items: Use cat litter or old coffee grounds to dispose medications if other options are not available. Mix your drugs with these household products, seal them in an airtight container and throw it into the garbage. Call [facility]: [phone] to be sure your drugs can be disposed of in this way. Some medicines may require a different approach.4.Never flush your medications down the toilet. IF YOU HAVE BEEN PRESCRIBED AN OPIOID FOR PAIN If you have been prescribed an opioid (such as hydrocodone, oxycodone or morphine), it is critical to understand the possible side effects and risks of opioid pain medications. Even when taken as directed, opioids can have several side effects including: Tolerance, meaning you might need to take more of a medication for the same pain relief. Nausea, vomiting and/or constipation. Sleepiness, dizziness, dry mouth, confusion, depression or itching. Physical dependence, meaning you have withdrawal symptoms when a medication is stopped, can develop within a few days. KNOW YOUR RESPONSIBILITIES It is important to know exactly how much and how often to take the opioid pain medications you are prescribed. Never take opioids in higher amounts or more often than prescribed. Do not combine opioids with alcohol or other drugs that cause drowsiness, such as benzodiazepines, also known as benzos, including diazepam and alprazolam, muscle relaxants or sleep aids. Never sell or share prescription opioids. This is illegal. Store opioids in a secure place and out of reach of others (including children, family, friends and visitors). The last page of this document has been signed and retained as a CHART COPY. Signatures Patient Education Materials Hypertension, Adult Medication Leaflets My discharge plan and instructions have been reviewed and explained to me and IANAYA LARRY understand my current condition and have read and understand these discharge instructions. I have received a written copy of the plan/instructions. If I have questions, I am aware that I should contact my doctor. Patient/Veneer Grader Signature: Date/Time: Relationship to Patient: Witness Name/Signature: Date/Time: [facility] 05-03-2025 Note Discharge Instructions Thank you for allowing [facility] to assist you with your healthcare needs. The following is important discharge information regarding your hospital visit. Your Care Team VERA MANRIQUE MD Your Diagnosis Chronic subdural hematoma CKD (chronic kidney disease), stage V H/O sick sinus syndrome History of CVA with residual deficit Hypertensive urgency Type 2 diabetes mellitus with diabetic neuropathy What to do next Instructions From Your Doctor Home OT Recommended. Follow with [facility]. Follow Up Appointments Follow Up with Please call [facility] when you return home to begin your services [phone] When:Within 1-2 days Follow Up with ARSEN CURTIS MD When:Within 5 to 7 days Where:[address] [facility] [place] [place] [address]- Follow Up with VERA MANRIQUE MD When:Within 1-2 days Where:[address] [place] [address]- Additional Information: Please call the office to schedule your hospital follow up appointment . The Following Activity and Diet Have Been Ordered for You Discharge Activity - Ordered -- Resume your pre-hospitalization activity, 05/03/25 9:11:00 EDT Discharge Diet - Ordered -- No changes were made to your diet during your hospital stay. Please resume your pre hospitalization diet on discharge., 05/03/25 9:11:00 EDT The Following Equipment Has Been Ordered for You No qualifying data available. The Following Treatments Have Been Ordered for You Discharge Labs No qualifying data available. Discharge Radiology No qualifying data available. Other Therapies Occupational Therapy Outpatient Eval & Treat (Occupational Therapy Outpatient Evaluation and Treatment) - Future -- 05/02/25, Unspecified, [facility], hypertensive urgency, Weakness, Future Order, Once, No Post Acute Orders No qualifying data available. Someone Will Contact You Regarding These Home Health Referrals No home referrals have been ordered for you. No one will call you. Allergies Glucophage Dizziness Medications Please ask your primary doctor or pharmacist before taking any other medication not listed, including over the counter drugs, herbal medications, vitamins and or supplements as they may interact with your home medications. What How Much When Instructions Last Dose New carvedilol (carvedilol 25 mg oral tablet) 1 tab(s) by mouth Twice daily with meals New doxazosin (doxazosin 4 mg oral tablet) 1 tab(s) by mouth Once a day Pickup at [facility]/pharmacy #[id number] Changed hydrALAZINE (hydrALAZINE 50 mg oral tablet) 2 tab(s) by mouth Every 8 hours Pickup at [facility]/pharmacy #[id number] Unchanged amLODIPine (amLODIPine 1 mg/ mL oral liquid) 10 Milliliter by mouth Once a day Unchanged aspirin (aspirin 81 mg oral delayed release tablet) 1 tab(s) by mouth Every day Unchanged atorvastatin (atorvastatin 80 mg oral tablet) 1 tab(s) by mouth Once a day Unchanged clopidogrel (clopidogrel 75 mg oral tablet) 1 tab(s) by mouth Once a day Unchanged folic acid 0.4 Milligram Once a day Unchanged insulin glargine (Lantus 100 units/ mL10 ml vial solution) 20 unit(s) Subcutaneous Once a day Unchanged insulin lispro (HumaLOG) (HumaLOG 100 units/ mL injectable solution VIAL) 2 unit(s) Subcutaneous Three (3) times a day Unchanged melatonin (melatonin 3 mg oral tablet, disintegrating) 1 tab(s) by mouth Daily at bedtime as needed for as needed for insomnia Unchanged metoprolol (Toprol-XL) 100 Milligram by mouth Once a day Unchanged senna (senna (sennosides) 8.6 mg oral tablet) 1 tab(s) by mouth Three (3) times a day as needed for for constipation Unchanged tamsulosin (tamsulosin 0.4 mg oral capsule) 1 cap by mouth Daily at bedtime Unchanged traZODone (traZODone 50 mg oral tablet) 1 tab(s) by mouth Daily at bedtime Pharmacy Information [facility]/pharmacy #[id number]: [address], [place] [id number] [phone] What How Much When Comments Stop Taking losartan (losartan 25 mg oral tablet) 1 tab(s) by mouth Once a day Please take this list to your next doctor s visit. Bring all medications you take, including over the counter medications, herbals and other supplements with you to your doctor s visit. Patients and families are reminded to discard old lists and to update any records with all medication providers or retail pharmacies. Additional Information VACCINATE! IT SAVES LIVES! Members of the community who have not yet received the COVID-19 vaccine and would like to receive it can visit one of [facility] vaccine clinics. There are many vaccine clinic locations within the [facility]. For locations and available times, please visit [email or web address] [email or web address]/. It is important to note that some COVID mobile vaccine clinics are held outdoors and may be canceled in rainy or stormy conditions. To learn more about pediatric vaccinations (ages 5-11), we invite you to visit the [facility] webpage. https://[email or web address]/p [email or web address]-Freq [email or web address] To learn more about the COVID-19 vaccine, we invite you to visit the CDC website for a list of frequently asked questions.https://www.cdc.gov/co ronavirus/2019-ncov/vaccines/faq .html [employer] Patient Portal Access Instructions: Stay connected with your healthcare team and access your personal medical information anytime with the [employer] Patient Portal. Please follow the directions below to create your [employer] account: 1.Access the email account you provided upon registration to the hospital/physician office.2.Look for an invitation email from [facility].3.Open the email and access the invitation link: Accept Invitation to [facility].4.Fill in the required patel to create your account. To access your account, visit [facility]er[employer] or scan the QR code above. Click the blue button labeled Access Patient Portal and then log in with the username and password that you created in the steps above. You will be able to view your test results, lab results, a summary of your visits, upcoming appointments and more. There is also a convenient messaging option where you can send secure messages to your provider. In addition, you will have the ability to download any documents or summaries to your computer and/or send the information securely to a physician. Remember that your healthcare information is confidential, so carefully consider who you will allow to register on the [facility] Patient Portal for access to your information. You can also access the [facility] Patient Portal on the [facility] [employer] tierra. Simply click on Patient Portal and then log into your account. If you would like to receive a full copy of your medical records, please contact the [facility] Medical Records Department by calling [phone], Monday through Monday between 8 a.m. and 4:30 p.m. HOW TO SAFELY DISPOSE OF PRESCRIPTION MEDICATIONS Please use one of the following methods to safely dispose of your unused medications. 1.Use a drug disposal kit: the drug disposal pouch allows you to safely discard your old and unused drugs. Ask your nurse to give you one when you are discharged.2.Visit a local take-back location: Many local pharmacies and police departments have programs that collect old and unwanted prescription drugs. Call your local pharmacy or go to http://[employer]/8P7Te2f to find one close to you.3.Make use of household items: Use cat litter or old coffee grounds to dispose medications if other options are not available. Mix your drugs with these household products, seal them in an airtight container and throw it into the garbage. Call [facility]: [phone] to be sure your drugs can be disposed of in this way. Some medicines may require a different approach.4.Never flush your medications down the toilet. IF YOU HAVE BEEN PRESCRIBED AN OPIOID FOR PAIN If you have been prescribed an opioid (such as hydrocodone, oxycodone or morphine), it is critical to understand the possible side effects and risks of opioid pain medications. Even when taken as directed, opioids can have several side effects including: Tolerance, meaning you might need to take more of a medication for the same pain relief. Nausea, vomiting and/or constipation. Sleepiness, dizziness, dry mouth, confusion, depression or itching. Physical dependence, meaning you have withdrawal symptoms when a medication is stopped, can develop within a few days. KNOW YOUR RESPONSIBILITIES It is important to know exactly how much and how often to take the opioid pain medications you are prescribed. Never take opioids in higher amounts or more often than prescribed. Do not combine opioids with alcohol or other drugs that cause drowsiness, such as benzodiazepines, also known as benzos, including diazepam and alprazolam, muscle relaxants or sleep aids. Never sell or share prescription opioids. This is illegal. Store opioids in a secure place and out of reach of others (including children, family, friends and visitors). The last page of this document has been signed and retained as a CHART COPY. Signatures Patient Education Materials Medication Leaflets My discharge plan and instructions have been reviewed and explained to me and I,ANAYA LOU understand my current condition and have read and understand these discharge instructions. I have received a written copy of the plan/instructions. If I have questions, I am aware that I should contact my doctor. 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 Denies nausea or vomiting appetites been good. Objective Vitals and Measurements T: 36.5 C (Oral) TMIN: 36.5 C (Oral) TMAX: 37 C (Oral) HR: 66 (Monitored) RR: 18 BP: 169/71 SpO2: 97% Intake and Output Last 24 hours Intake Oral Intake 960.00 Output Urine Voided 1275.00 Stool Count 1.00 Total Summary Total Intake 960.00 Total Output 1275.00 Fluid Balance -315.00 Physical Exam Heart had a regular rhythm normal S1 and S2 lungs clear to auscultation posteriorly abdomen had bowel sounds positive x 4 soft nontender not distended extremities warm and dry with only trace pretibial edema bilaterally Weight Dosing Weight: 67.1 kg (04/30/25) Dosing Weight: 67.1 kg (04/28/25) Medications Medications (11) Active Scheduled: (10) amLODIPine 10 mg tablet 10 mg 1 tab(s), Oral, qDay atorvastatin 80 mg tablet 80 mg 1 tab(s), Oral, qDay carvedilol 25 mg tablet 25 mg 1 tab(s), Oral, BIDM doxazosin 4 mg Tablet 4 mg 1 tab(s), Oral, qDay heparin 5,000 units/mL (1 mL) vial 5,000 unit(s) 1 mL, Subcutaneous, q12h hydralazine 50 mg Tablet 100 mg 2 tab(s), Oral, q8h insulin glargine 20 unit(s) 0.2 mL, Subcutaneous (INT), qDay insulin lispro 100 units/mL Soln (3 mL) Give 0-5 units/dose, Subcutaneous, TIDAC tamsulosin 0.4 mg Capsule 0.4 mg 1 cap(s), Oral, qHS traZODONE 50 mg Tablet 50 mg 1 tab(s), Oral, qHS Continuous: (0) PRN: (1) dextrose 50% Solution Disp syringe 50 mL 25 gram(s) 50 mL, IV Push, AsDirected Lab Results 05/03 06:15 WBC: 4.7 Hgb: 9.7 L Hct: 29.6 L Platelet: 164 Neutrophil %: 58.3 Glucose Level: 101 Sodium Level: 142 Potassium Level: 5.1 H BUN: 83.0 H Creatinine Lvl (s): 5.02 H 05/02 09:06 WBC: 4.6 Hgb: 10.1 L Hct: 31.1 L Platelet: 164 Neutrophil %: 68.8 Glucose Level: 131 H Glucose Level: 131 H Sodium Level: 141 Sodium Level: 141 Potassium Level: 5.5 H Potassium Level: 5.5 H BUN: 76.0 H BUN: 76.0 H Creatinine Lvl (s): 4.84 H Creatinine Lvl (s): 4.84 H EKG No qualifying data available. Assessment/Plan Chronic subdural hematoma CKD (chronic kidney disease), stage V H/O sick sinus syndrome History of CVA with residual deficit Hypertensive urgency Type 2 diabetes mellitus with diabetic neuropathy Assessment/Plan 1. Hypertensive urgency: Likely related to his chronic kidney disease. Patient did miss his blood pressure medications on the morning of admission. Blood pressure has been under better control on oral agents. No evidence of fluid overload on exam. Given chronic kidney disease and hypertensive urgency, a Doppler ultrasound to evaluate his renal arteries was performed and showed no evidence of renal artery stenosis. Blood pressure is now under better control with amlodipine 10 mg daily, carvedilol 25 mg twice daily and hydralazine 100 mg 3 times daily. Due to hyperkalemia, his losartan has been discontinued and he has been started on doxazosin. Blood pressure under good control. 2. 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 He has been referred for internal access creation in [place]. He is not actively uremic. No need to initiate dialysis now. Ultrasound shows increased echogenicity of his kidneys consistent with chronic kidney disease. Proteinuria workup is pending. Patient can follow-up in [place] upon discharge. 3. Hyperkalemia: Due to ARB therapy and chronic kidney disease. If her repeat potassium is safe, okay to discharge today off of ARB. [1] [1] Progress Note; ARSEN CURTIS MD 05/02/2025 09:44 EDT Digitally Signed by SCOTT CORBIN MD on 05/03/2025 09:37 AM [facility] 05-03-2025 Discharge summary Date of Service 05/03/2025 Discharge Diagnosis 1 - Hypertensive urgency (I16.0 - ICD-10-CM) 2 - CKD (chronic kidney disease), stage V (N18.5 - ICD-10-CM) 3 - H/O sick sinus syndrome (Z86.79 - ICD-10-CM) 4 - Type 2 diabetes mellitus with diabetic neuropathy (E11.40 - ICD-10-CM) 5 - History of CVA with residual deficit (I69.30 - ICD-10-CM) 6 - Chronic subdural hematoma (I62.03 - ICD-10-CM) Hospital Course Lou Julien is a 69-year-old male with a history of insulin-dependent diabetes neuropathy, chronic kidney disease stage IV to stage V, hypertension, hyperlipidemia, remote history of CVA with left-sided weakness, chronic back pain, sick sinus syndrome status post pacemaker placement who initially presented to [facility]. Apparently at home patient felt faint was about to fall and his home health aide caught him. Squad was called patient was taken to [facility]. CT head showed chronic subdural hematomas. He was found to be in hypertensive urgency and treated with IV medication transferred to [facility] MICU. Patient was treated with p.o. and IV medications and nephrology was consulted. Subsequently cardiology was consulted for possible AV access. Dr. Roberto of nephrology saw the patient. Cardiology felt there was no contraindication to IV access and signed off. We repeated CT head which shows chronic hygroma/subdural hematomas. Neurosurgery saw the patient and felt there was no contraindication to continue aspirin and Plavix. Nephrology feels there is no need for urgent dialysis or AV fistula placement at this time. Renal ultrasound shows chronic medical renal disease with left nonobstructive nephrolithiasis and prostatomegaly. Repeat CT head showed chronic bilateral subdurals. Today when I rounded on the patient he feels well. He has minimal chronic left-sided weakness. He denies any headache or dizziness no chest pain shortness with no cough or fever no abdominal pain no melena hematochezia no urinary issues. His hydralazine has been increased and losartan has been held. His potassium has been fairly stable today 5.1. Blood pressures have been stable. Pt advised to discuss with PCP whether to continue ASA, Plavix for his Old CVA. Allergies Glucophage Dizziness Consults Consult to Physician - Ordered -- 04/29/25 9:14:00 EDTSHAQUILLE JOHN R MD, Routine, CKD Stage V in for HTN urgency. work up for dialysis access. Consult to Physician (Physician Consult) - Ordered -- 05/02/25 10:00:00 CRISTINE CASANOVA KRISTINE MD, Routine, Subdural hematoma Imaging Results and Diagnostics CT Head or Brain w/o Contrast Result Date: May 02, 2025 Verified By: JUICE ALEMAN MD CLINICAL STATEMENT: IMPRESSION: Chronic bilateral subdurals unchanged from 04/28/2025. US Renal Result Date: April 29, 2025 Verified By: ELLIOT ROSAS MD CLINICAL STATEMENT: IMPRESSION: No hydronephrosis. Increased echogenicity of the kidneys which can be seenin medical renal disease. Left nonobstructive nephrolithiasis. Prostatomegaly. I have personally reviewed the images of this examination and agree with theresident's findings and interpretation. XR Chest 1 View Result Date: April 28, 2025 Verified By: ALBA VILLA, CORNELIUS Alonzo CLINICAL STATEMENT: IMPRESSION: 1. Pacemaker in place.2. No acute cardiopulmonary findings. Subjective Patient feels well today no headache or dizziness no chest pain or shortness breath no abdominal pain no urinary issues. Physical Exam Vitals and Measurements T: 37.0 C (Oral) TMIN: 36.8 C (Oral) TMAX: 37 C (Oral) HR: 68 RR: 18 BP: 141/62 SpO2: 96% Weight Dosing Weight: 67.1 kg (04/30/25) Dosing Weight: 67.1 kg (04/28/25) General: In no acute distress.Pt is awake, alert and oriented. HEENT: PERRLA, No pallor, no icterus cvs; S1, S2 regular rate and rhythm, no murmurs, rubs or gallops Lungs: Clear to Auscultation, No wheeze or crackles, unlabored. Abd:Pt has no distension, guarding or rigidity. BS + Extremity: No clubbing, cyanosis or pedal edema Skin: No rash Neuro minimal left upper and left lower extremity weakness noted. Moves all four extremities equally. Pending Labs and Studies WBC: 4.7 10^3/mcL (05/03/25 06:15:00) RBC: 3.41 10^6/mcL Low (05/03/25 06:15:00) Hgb: 9.7 G/dL Low (05/03/25 06:15:00) Hct: 29.6 % Low (05/03/25 06:15:00) MCV: 86.6 fL (05/03/25 06:15:00) MCH: 28.5 pg (05/03/25 06:15:00) MCHC: 32.9 G/dL (05/03/25 06:15:00) RDW: 15.2 % (05/03/25 06:15:00) Platelet: 164 10^3/mcL (05/03/25 06:15:00) MPV: 7.7 fL (05/03/25 06:15:00) Neutrophil %: 58.3 % (05/03/25 06:15:00) Lymphocyte %: 31.7 % (05/03/25 06:15:00) Monocyte %: 8 % (05/03/25 06:15:00) Eosinophil %: 1.6 % (05/03/25 06:15:00) Basophil %: 0.4 % (05/03/25 06:15:00) Neutrophil, Absolute: 2.7 10^3/mcL (05/03/25 06:15:00) Lymphocyte, Absolute: 1.5 10^3/mcL (05/03/25 06:15:00) Monocyte, Absolute: 0.4 10^3/mcL (05/03/25 06:15:00) Eosinophil, Absolute: 0.1 10^3/mcL (05/03/25 06:15:00) Basophil, Absolute: 0 10^3/mcL (05/03/25 06:15:00) Glucose Level: 101 mg/dL (05/03/25 06:15:00) Sodium Level: 142 mEq/L (05/03/25 06:15:00) Potassium Level: 5.1 mEq/L High (05/03/25 06:15:00) Chloride: 110 mEq/L (05/03/25 06:15:00) CO2: 20 mEq/L Low (05/03/25 06:15:00) Electrolyte Balance: 12 mEq/L (05/03/25 06:15:00) BUN: 83 mg/dL High (05/03/25 06:15:00) Creatinine Lvl (s): 5.02 mg/dL High (05/03/25 06:15:00) Estimated Glomerular Filtration Rate: 12 ml/min/1.73sqm (05/03/25 06:15:00) BUN/Creatinine Ratio: 16.5 ratio (05/03/25 06:15:00) Calcium Lvl: 8.6 mg/dL Low (05/03/25 06:15:00) Magnesium Lvl: 2.3 mg/dL (05/03/25 06:15:00) Phosphorus: 6.5 mg/dL High (05/02/25 09:06:00) Total Protein: 6.1 G/dL (04/28/25 21:37:00) Albumin Level: 3 G/dL Low (05/02/25 09:06:00) Globulin: 2.7 G/dL (04/28/25 21:37:00) A/G Ratio: 1.3 ratio (04/28/25 21:37:00) Bili Total: 0.4 mg/dL (04/28/25 21:37:00) Alk Phos: 91 U/L (04/28/25 21:37:00) AST/SGOT: 21 U/L (04/28/25 21:37:00) ALT/SGPT: 11 U/L Low (04/28/25 21:37:00) Iron: 107 mcg/dL (04/30/25 02:39:00) TIBC: 198 mcg/dL Low (04/30/25 02:39:00) Iron Sat: 54 % (04/30/25 02:39:00) Lactic Acid Lvl: 0.5 mmol/L (04/29/25 05:56:00) IFES Interpretation: IFES Interpretation (05/02/25 00:21:00) High Sensitivity Troponin I: 16 ng/L (04/28/25 21:37:00) PTH, Intact: 63.9 pg/mL (04/30/25 02:39:00) U Creatinine: 51 mg/dL (04/29/25 11:38:00) U Protein: 284.7 mg/dL (04/29/25 11:38:00) U Ratio Prot/Creat: 5.6 ratio (04/29/25 11:38:00) Antinuclear Ab Screen: Negative (05/01/25 10:21:00) Hep B Surf Ag: Non-Reactive ADM (05/02/25 00:21:00) Hep C Ab: Non-Reactive ADM (05/02/25 00:21:00) Hep C Ab Int: See Interp (05/02/25 00:21:00) Cytoplasmic (C-ANCA): <1:20 (05/01/25 10:21:00) Perinuclear (P-ANCA): <1:20 (05/01/25 10:21:00) Atypical pANCA: <1:20 (05/01/25 10:21:00) Blood Glucose, Capillary: 70 mg/dL Low (05/03/25 07:30:00) Blood Glucose Testing Reason: Routine (05/02/25 16:15:00) Blood Glucose Interventions: Administered agent to decrease blood sugar (04/29/25 17:00:00) Code Status Code Status - Ordered -- 04/28/25 22:55:00 EDT, Full Code, Constant Order Admission Date 04/28/2025 Discharge Date 05/03/2025 Patient Instructions Home OT Recommended. Follow with nephroloy. Medications New Prescription carvedilol (carvedilol 25 mg oral tablet)1 tab(s) by mouth twice daily with meals. doxazosin (doxazosin 4 mg oral tablet)1 tab(s) by mouth once a day. Refills: 0. Changed hydrALAZINE (hydrALAZINE 50 mg oral tablet)2 tab(s) by mouth every 8 hours. Refills: 0. Unchanged amLODIPine (amLODIPine 1 mg/mL oral liquid)10 Milliliter by mouth once a day. aspirin (aspirin 81 mg oral delayed release tablet)1 tab(s) by mouth every day. atorvastatin (atorvastatin 80 mg oral tablet)1 tab(s) by mouth once a day. clopidogrel (clopidogrel 75 mg oral tablet)1 tab(s) by mouth once a day. folic acid0.4 Milligram once a day. insulin glargine (Lantus 100 units/mL10 ml vial solution)20 unit(s) Subcutaneous once a day. insulin lispro (HumaLOG) (HumaLOG 100 units/mL injectable solution VIAL)2 unit(s) Subcutaneous three (3) times a day. melatonin (melatonin 3 mg oral tablet, disintegrating)1 tab(s) by mouth daily at bedtime as needed as needed for insomnia. metoprolol (Toprol-XL)100 Milligram by mouth once a day. senna (senna (sennosides) 8.6 mg oral tablet)1 tab(s) by mouth three (3) times a day as needed for constipation. tamsulosin (tamsulosin 0.4 mg oral capsule)1 cap by mouth daily at bedtime. traZODone (traZODone 50 mg oral tablet)1 tab(s) by mouth daily at bedtime. Discontinued losartan (losartan 25 mg oral tablet)1 tab(s) by mouth once a day. Follow Up Follow Up with ARSEN CURTIS MD When:Within 5 to 7 days Where:[address] [facility] [place] [address]- Follow Up with VERA MANRIQUE MD When:Within 1-2 days Where:[address] [place] [address]- Additional Information: Please call the office to schedule your hospital follow up appointment . Follow Up Appointments No qualifying data available. Follow Up Labs/Studies Discharge Labs No Follow-up Labs Discharge Studies Discharge to Outpatient OT - Ordered -- Therapy Order: Outpatient OT Eval and Treat, hypertensive urgency, Reason: Weakness, 05/02/25 12:10:00 EDT Discharge Diet No qualifying data available. Discharge Activity No qualifying data available. Condition on Discharge Stable Discharge Disposition Home with home OT Information Provided To Patient's Sister Time Spent 32 minutes spent on patient discharge Digitally Signed by GILBERT GIANG MD on 05/03/2025 05:50 PM [facility] 05-02-2025 Neurological surgery Consult note Date of Service 05/02/2025 Reason for Consultation Subdural hematoma Referring Physician Dr Giang History of Present Illness This is a 69-year-old male with past medical history significant for CVA 2019 history of DVT, type 2 diabetes mellitus with polyneuropathy, paroxysmal SVT, heart block s/p pacemaker ICD, hypertension, bipolar cholesteremia, psoriasis, contact dermatitis, chronic low back pain, iron deficiency anemia, and CKD stage IV who initially presented to [facility] due to faintness and dizziness. The morning of 04/28/2025, patient developed lightheadedness and dizziness, and was reportedly caught from falling by home health aide as he was unstable. 911 was called, and patient was brought into the ED. He was found with hypertensive urgency, blood pressure 200s/80s. Received clonidine, hydralazine, labetalol in the ED. BP documented to have improved to 150s 170s/80s. A noncontrast head CT was obtained, and reportedly showed chronic appearing subdural fluid collections. No acute hemorrhage. Transferred to [facility] and initially admitted to MICU for hypertension urgency, and raise concern of acute on chronic subdural hematoma. According to ICU note, CT head was reviewed by electrical designer and no acute findings appreciated. Patient was continued on home doses of aspirin and Plavix. Neurosurgery consultation requested today by primary team for evaluation. A repeat Head CT was also ordered today by primary team. CT has been completed and reviewed with Dr. Pryor. This shows small bilateral subdural fluid collections, which appear markedly aged or are proteinaceous products though most consistent with chronic hygromas, of which are not increased in size, and not causing any compression of the brain. In comparison to head CT from 04/28/2025, these are unchanged. Patient evaluated. He is seen resting in bed. Fully awake alert and oriented appropriately. He indicates he has not been experiencing any headaches this hospitalization, or recently either at home. Denies any head trauma injury or fall that he can recall. Denies acute visual disturbances, nausea, vomiting, acute paresthesias or acute motor weakness. Reports intermittent dizziness, especially with position changes from sitting to standing which he states has been going on for quite some time and is not new. Does report chronic left-sided weakness residual from his prior CVA. This is congruent with his exam. Has mild left-sided weakness, otherwise is moving all 4 extremities well. He follows commands accurately and briskly. Has no pronator drift and finger-nose testing is intact bilaterally. No dysmetria or ataxia. Light touch sensation is intact equally in all his extremities. PERRL. Review of Systems GENERAL: Denies fever chills or night sweats. SKIN: No reported skin complaints. HEENT: See HPI. Denies acute changes in visual acuity. Denies diplopia or blurred vision. Denies earaches, changes in hearing, or otorrhea. Denies rhinorrhea or sore throat. MS: History of chronic low back pain. No reported acute spinal or joint pain. RESPIRATORY: Denies shortness of breath, difficulty breathing or cough. CARDIOVASCULAR: Denies chest pain, pressure, palpitations. GI: Denies abdominal pain, nausea, vomiting. : Denies dysuria or hematuria. NEUROLOGICAL: See HPI. Physical Exam Vitals and Measurements T: 37 C (Oral) TMIN: 36.8 C (Oral) TMAX: 37.3 C (Oral) HR: 60 RR: 16 BP: 140/64 SpO2: 98% Weight Dosing Weight: 67.1 kg (04/30/25) Dosing Weight: 67.1 kg (04/28/25) General survey: 69-year-old male, well-developed well-nourished. Patient calmly resting in bed. He is in no acute distress. Cooperative and participates in exam. Skin: Skin is warm and dry. HEENT: Head is normocephalic. EOMI. No otorrhea or rhinorrhea. Oral mucosa is pink and moist. MS: Neck appears supple. No obvious joint deformities, redness or swelling. Cardiovascular: Regular heart rate and rhythm S1-S2 present. Respiratory: Respirations even and unlabored. Lungs are clear bilaterally. Abdomen: Abdomen is soft with bowel sounds present. Peripheral vascular: Extremities are warm. Radial and pedal pulses are 2+ and symmetric. Neurological: See HPI. Lab Results 05/02 09:06 WBC: 4.6 Hgb: 10.1 L Hct: 31.1 L Platelet: 164 Neutrophil %: 68.8 Glucose Level: 131 H Glucose Level: 131 H Sodium Level: 141 Sodium Level: 141 Potassium Level: 5.5 H Potassium Level: 5.5 H BUN: 76.0 H BUN: 76.0 H Creatinine Lvl (s): 4.84 H Creatinine Lvl (s): 4.84 H 05/01 10:21 WBC: 6.6 Hgb: 10.5 L Hct: 31.1 L Platelet: 175 Neutrophil %: 75.3 H Glucose Level: 138 H Sodium Level: 140 Potassium Level: 5.4 H BUN: 67.0 H Creatinine Lvl (s): 4.40 H Imaging Results and Diagnostics CT Head or Brain w/o Contrast Result Date: May 02, 2025 Verified By: JUICE ALEMAN MD CLINICAL STATEMENT: IMPRESSION: Chronic bilateral subdurals unchanged from 04/28/2025. US Renal Result Date: April 29, 2025 Verified By: ELLIOT ROSAS MD CLINICAL STATEMENT: IMPRESSION: No hydronephrosis. Increased echogenicity of the kidneys which can be seenin medical renal disease. Left nonobstructive nephrolithiasis. Prostatomegaly. I have personally reviewed the images of this examination and agree with theresident's findings and interpretation. XR Chest 1 View Result Date: April 28, 2025 Verified By: CORNELIUS WILLIS MD CLINICAL STATEMENT: IMPRESSION: 1. Pacemaker in place.2. No acute cardiopulmonary findings. Assessment/Plan Incidental small bilateral subdural hygromas Initial head CT obtained at outside hospital 04/28/2025. Showed incidental chronic appearing subdural fluid collections, no evidence of acute hemorrhage. No reported acute injury or head trauma. Reportedly, patient caught from falling by his home health aide when he became lightheaded and dizzy, though did not strike head. Patient was continued on his aspirin and Plavix. Repeat head CT was obtained today, and has been reviewed with Dr. Pryor. This shows small bilateral subdural fluid collections, which appear markedly aged or are proteinaceous products though most consistent with chronic hygromas, of which are not increased in size, and not causing any compression of the brain. In comparison to head CT from 04/28/2025, these are unchanged. No acute blood products visualized. No acute neurosurgical interventions needed. From neurosurgery standpoint, patient can continue on his aspirin and Plavix, though will defer rationale and appropriateness of current AC regimen to primary team or PCP. CVA documented to have been in 2019. Hx DVT per patient was also years ago. Patient should seek medical attention in the emergency department promptly with any acute neuro changes. Patient is without acute neurosurgical needs. Neurosurgery will sign off. Please refer to Dr. Pryor's addendum for additional information, and details regarding neurosurgical input and plan of care Procedure/Surgical History No qualifying data available. Medications Inpatient amLODIPine, 10 mg= 1 tab(s), Oral, qDay atorvastatin, 80 mg= 1 tab(s), Oral, qDay carvedilol 25 mg oral tablet, 25 mg= 1 tab(s), Oral, BIDM Dextrose 50% IV Push, 25 gram(s)= 50 mL, IV Push, AsDirected, PRN doxazosin 4 mg oral tablet, 4 mg= 1 tab(s), Oral, qDay heparin 5000 units/mL injection, 5000 unit(s)= 1 mL, Subcutaneous, q12h HumaLOG 100 units/mL subcutaneous solution, Give 0-5 units/dose, Subcutaneous, TIDAC hydrALAZINE, 100 mg= 2 tab(s), Oral, q8h Lantus, 20 unit(s)= 0.2 mL, Subcutaneous (INT), qDay tamsulosin, 0.4 mg= 1 cap(s), Oral, qHS traZODone, 50 mg= 1 tab(s), Oral, qHS Home amLODIPine 1 mg/mL oral liquid, 10 mg= 10 mL, Oral, qDay aspirin 81 mg oral delayed release tablet, 81 mg= 1 tab(s), Oral, Daily atorvastatin 80 mg oral tablet, 80 mg= 1 tab(s), Oral, qDay clopidogrel 75 mg oral tablet, 75 mg= 1 tab(s), Oral, qDay folic acid, 0.4 mg, qDay HumaLOG 100 units/mL injectable solution VIAL, 2 unit(s), Subcutaneous, TID hydrALAZINE 50 mg oral tablet, 50 mg= 1 tab(s), Oral, QID Lantus 100 units/mL10 ml vial solution, 20 unit(s), Subcutaneous, qDay losartan 25 mg oral tablet, 25 mg= 1 tab(s), Oral, qDay melatonin 3 mg oral tablet, disintegrating, 3 mg= 1 tab(s), Oral, qHS, PRN senna (sennosides) 8.6 mg oral tablet, 8.6 mg= 1 tab(s), Oral, TID, PRN tamsulosin 0.4 mg oral capsule, 0.4 mg= 1 cap(s), Oral, qHS Toprol-XL, 100 mg, Oral, qDay traZODone 50 mg oral tablet, 50 mg= 1 tab(s), Oral, qHS Allergies Glucophage Dizziness Immunizations No qualifying data available. Digitally Signed by JESUS STOKES on 05/02/2025 03:34 PM Digitally Signed by DELICIA PRYOR MD [facility] 05-02-2025 Nephrology Progress note Date of Service May 02, 2025 Labs have not resulted. Potassium 5.5. Up from 5.4. He did receive losartan yesterday. None today. Will dose with Lokelma 10 g x 1. Okay to discharge patient with labs on Monday. He should remain off of losartan. Digitally Signed by ARSEN CURTIS MD on 05/02/2025 12:26 PM [facility] 05-02-2025 Note Exam Date Time Procedure Performing Provider Status 05/02/25 10:[address] Head or Brain w/o Contrast JUICE ALEMAN MD; Auth (Verified) [id number] ORIGINAL EXAMINATION: CT OF THE HEAD WITHOUT CONTRAST 05/02/2025 10:52 am TECHNIQUE: CT of the head was performed without the administration of intravenous contrast. Automated exposure control, iterative reconstruction, and/or weight based adjustment of the mA/kV was utilized to reduce the radiation dose to as low as reasonably achievable. COMPARISON: Head CT 04/28/2025. HISTORY: ORDERING SYSTEM PROVIDED HISTORY: Reason for Exam: PT STATES ADMISSION FOR DIZZINESS/STROKE,PREV STROKE,current cowan [facility] FINDINGS: BRAIN/VENTRICLES: Hypodense subdural collections measuring up to 4 mm unchanged. 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 The ventricles are not enlarged. No interval infarct or hemorrhage. No posterior fossa lesion. ORBITS: Lens replacements. SINUSES: The visualized paranasal sinuses and mastoid air cells demonstrate no acute abnormality. SOFT TISSUES/SKULL: No acute abnormality of the visualized skull or soft tissues. 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 Interpreted by: Juice Aleman Preliminary Report By: Juice Aleman Electronically signed By Juice Aleman Dictated Date: 05/02/2025 11:04:19 AM Prelim Date: 05/02/2025 11:06:22 AM Sign Date: 05/02/2025 11:06:22 AM Ordering Provider: GILBERT GIANG [id number] Neph[facility] Progress note Date of Service May 02, 2025 Subjective Denies complaints. Would like to go home. Objective Vitals and Measurements T: 37.3 C (Oral) TMIN: 36.8 C (Oral) TMAX: 37.3 C (Oral) HR: 68 RR: 17 BP: 139/69 SpO2: 96% Intake and Output Last 24 hours Intake Oral Intake 360.00 Output Urine Voided 625.00 Stool Count 0.00 Urine Count 3.00 Total Summary Total Intake 360.00 Total Output 625.00 Fluid Balance -265.00 Physical Exam General: No distress on room air HEENT: Mucosa was moist, sclera anicteric, extraocular muscles intact, neck veins were flat, no carotid bruits Lungs: Clear bilaterally with no crackles wheezes or rhonchi Heart: Regular with no murmurs rubs or gallops Abdomen: Positive bowel sounds, soft, no palpable masses Extremities: No edema, pulses 1+ in dorsalis pedis arteries Skin: No rashes, normal turgor Weight Dosing Weight: 67.1 kg (04/30/25) Dosing Weight: 67.1 kg (04/28/25) Medications Medications (13) Active Scheduled: (12) amLODIPine 10 mg tablet 10 mg 1 tab(s), Oral, qDay aspirin 81 mg EC 81 mg 1 tab(s), Oral, Daily atorvastatin 80 mg tablet 80 mg 1 tab(s), Oral, qDay carvedilol 25 mg tablet 25 mg 1 tab(s), Oral, BIDM clopidogrel 75 mg Tablet 75 mg 1 tab(s), Oral, qDay doxazosin 4 mg Tablet 4 mg 1 tab(s), Oral, qDay heparin 5,000 units/mL (1 mL) vial 5,000 unit(s) 1 mL, Subcutaneous, q12h hydralazine 50 mg Tablet 100 mg 2 tab(s), Oral, q8h insulin glargine 20 unit(s) 0.2 mL, Subcutaneous (INT), qDay insulin lispro 100 units/mL Soln (3 mL) Give 0-5 units/dose, Subcutaneous, TIDAC tamsulosin 0.4 mg Capsule 0.4 mg 1 cap(s), Oral, qHS traZODONE 50 mg Tablet 50 mg 1 tab(s), Oral, qHS Continuous: (0) PRN: (1) dextrose 50% Solution Disp syringe 50 mL 25 gram(s) 50 mL, IV Push, AsDirected Lab Results 05/01 10:21 WBC: 6.6 Hgb: 10.5 L Hct: 31.1 L Platelet: 175 Neutrophil %: 75.3 H Glucose Level: 138 H Sodium Level: 140 Potassium Level: 5.4 H BUN: 67.0 H Creatinine Lvl (s): 4.40 H EKG No qualifying data available. Assessment/Plan 1. Hypertensive urgency: Likely related to his chronic kidney disease. Patient did miss his blood pressure medications on the morning of admission. Blood pressure has been under better control on oral agents. No evidence of fluid overload on exam. Given chronic kidney disease and hypertensive urgency, a Doppler ultrasound to evaluate his renal arteries was performed and showed no evidence of renal artery stenosis. Blood pressure is now under better control with amlodipine 10 mg daily, carvedilol 25 mg twice daily and hydralazine 100 mg 3 times daily. Due to hyperkalemia, his losartan has been discontinued and he has been started on doxazosin. Blood pressure under good control. 2. 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 He has been referred for internal access creation in [place]. He is not actively uremic. No need to initiate dialysis now. Ultrasound shows increased echogenicity of his kidneys consistent with chronic kidney disease. Proteinuria workup is pending. Patient can follow-up in [place] upon discharge. 3. Hyperkalemia: Due to ARB therapy and chronic kidney disease. If her repeat potassium is safe, okay to discharge today off of ARB. Digitally Signed by ARSEN CURTIS MD on 05/02/2025 09:48 AM [id number] Note Date of Service 05/02/25 Chief Complaint Lou Julien is a 69 yr old male with a history of CVA on February 2019, DVT, type 2 diabetes with polyneuropathy, paroxysmal SVT, heart block s/p pacemaker ICD, hypertension, hypercholesterolemia, psoriasis, contact dermatitis, lumbar spondylosis, lumbar degenerative disc disease, low back pain, iron deficiency anemia, DVT and CKD stage V transferred from Outside hospital with SDH, Hypertensive urgency. Pt was admitted to ICU, later transferred. Pt's BP was high yesterady we increased his Hydralazine. Pt Feels well, denies any headache or dizziness. Denies chest pain or shortness breath. Denies cough or fever. Denies nausea or vomiting. Denies abdominal pain. Denies urinary issues. Blood pressures have improved. He is back on his home medications with a higher dose of hydralazine. Nephrology saw the patient for his chronic kidney disease and feels patient is does not need inpatient dialysis. Potassium was slightly high yesterday labs from today are pending. PT saw patient andfelt there was no needs. OT saw patient and felt home OT would help be helpful His BP today is 139. Renal ultrasound showed medical renal disease. Subjective Patient is awake, alert does not have any headache or dizziness denies any chest pain or shortness breath denies any weakness in arms or legs. Objective Vitals and Measurements T: 37.3 C (Oral) TMIN: 36.5 C (Oral) TMAX: 37.3 C (Oral) HR: 68 RR: 17 BP: 139/69 SpO2: 96% Intake and Output Last 24 hours Intake Oral Intake 360.00 Output Urine Voided 625.00 Stool Count 0.00 Urine Count 3.00 Total Summary Total Intake 360.00 Total Output 625.00 Fluid Balance -265.00 Physical Exam General: In no acute distress.Pt is awake, alert and oriented. HEENT: Oral mucosa moist, no pallor, no icterus cvs; S1, S2 regular rate and rhythm, no murmurs, rubs or gallops Lungs: Clear to Auscultation, No wheeze or crackles, unlabored. Abd:Pt has no distension, guarding or rigidity. BS + Extremity: No clubbing, cyanosis or pedal edema Neuro CN II-XII intact, no focal deficits. Moves all four extremities equally. Weight Dosing Weight: 67.1 kg (04/30/25) Dosing Weight: 67.1 kg (04/28/25) Medications Medications (13) Active Scheduled: (12) amLODIPine 10 mg tablet 10 mg 1 tab(s), Oral, qDay aspirin 81 mg EC 81 mg 1 tab(s), Oral, Daily atorvastatin 80 mg tablet 80 mg 1 tab(s), Oral, qDay carvedilol 25 mg tablet 25 mg 1 tab(s), Oral, BIDM clopidogrel 75 mg Tablet 75 mg 1 tab(s), Oral, qDay doxazosin 4 mg Tablet 4 mg 1 tab(s), Oral, qDay heparin 5,000 units/mL (1 mL) vial 5,000 unit(s) 1 mL, Subcutaneous, q12h hydralazine 50 mg Tablet 100 mg 2 tab(s), Oral, q8h insulin glargine 20 unit(s) 0.2 mL, Subcutaneous (INT), qDay insulin lispro 100 units/mL Soln (3 mL) Give 0-5 units/dose, Subcutaneous, TIDAC tamsulosin 0.4 mg Capsule 0.4 mg 1 cap(s), Oral, qHS traZODONE 50 mg Tablet 50 mg 1 tab(s), Oral, qHS Continuous: (0) PRN: (1) dextrose 50% Solution Disp syringe 50 mL 25 gram(s) 50 mL, IV Push, AsDirected Lab Results 05/01 10:21 WBC: 6.6 Hgb: 10.5 L Hct: 31.1 L Platelet: 175 Neutrophil %: 75.3 H Glucose Level: 138 H Sodium Level: 140 Potassium Level: 5.4 H BUN: 67.0 H Creatinine Lvl (s): 4.40 H Imaging Results and Diagnostics US Renal Result Date: April 29, 2025 Verified By: ELLIOT ROSAS MD CLINICAL STATEMENT: IMPRESSION: No hydronephrosis. Increased echogenicity of the kidneys which can be seenin medical renal disease. Left nonobstructive nephrolithiasis. Prostatomegaly. I have personally reviewed the images of this examination and agree with theresident's findings and interpretation. XR Chest 1 View Result Date: April 28, 2025 Verified By: ALBA VILLA, CORNELIUS Alonzo CLINICAL STATEMENT: IMPRESSION: 1. Pacemaker in place.2. No acute cardiopulmonary findings. EKG No qualifying data available. Assessment/Plan Orders: hydrALAZINE, 100 mg= 2 tab(s), Oral, q8h Basic Metabolic Panel(BMP), 05/02/25 5:00:00 EDT, Next AM Draw (one day only), Blood, Once, Stop date 05/02/25 5:00:00 EDT Complete Blood Count(CBC), 05/02/25 5:00:00 EDT, Next AM Draw (one day only), Blood, Once, Stop date 05/02/25 5:00:00 EDT Consult to Physician(Physician Consult), 05/02/25 8:50:00 EDT, BUCK PRIETO MD, Routine, Subdural hematoma CT Head or Brain w/o Contrast, 05/02/25 8:58:00 EDT, 05/02/25 8:58:00 EDT, Stat, SDH, Wt k.1, ME4S Hypertensive urgency: Resolved hypertension: Blood pressure well-controlled now on current medication including hydralazine 100 mgp.o. 3 times daily. Chronic kidney disease stage V: Nephrology is been following the patient. Potassium slightly high yesterday and labs today are pending. Chronic subdural hematoma: We do not have any imaging in this hospital. Will check a CT head beforedischarge to ensure stability. Consult neurology to see the patient once. History of CVA: Continue aspirin and Plavix. Patient is moving all 4 extremities equally. PT recommends home. OT recommends home OT. Insulin-dependent diabetes: Continue Lantus and Humalog. BPH: Continue Flomax. Patient overall stable. If his labs remain stable with the CT head not showing acute issues he can be discharged home. He states his sister will pick him up. Discussed with nursing. Digitally Signed by GILBERT GIANG MD on 05/02/2025 06:40 PM [id number] Pastoral care Progress note Pastoral Care Note Entered On: 05/01/2025 12:00 EDT Performed On: 05/01/2025 9:20 EDT by Eitan Yañez Pastoral Care Spiritual Care Visit Initiated by : Consult/Referral Type of Pastoral Visit : Initial visit Spiritual Care Reason for Visit : General Pastoral Care Referral From : Patient Spiritual Assessment : Faithful, Hopeful, Grateful/Thankful Spiritual Care Emotional Assessment : Optimistic Spiritual Care Intervention : Active listening, Words of Encouragement, Validation of Feelings, Supportive presence, Explore Spiritual Needs, Explore Emotional Needs, Prayer with Patient/Family, Conversation Spiritual Outcomes : Spiritual Resources Stirred, Expresses Gratitude, Expresses Sanjana Spiritual Plan of Care : No Further Action Pastoral Care Comments : Provided spiritual/emotional care to pt w/presence, emphatic listening, encouragement, conversation, validation of feelings. Pt shared that he may have had a stroke. Pt expressed sanjana, hope, thankfulness, desire to get home to [place]. Prayed at req of pt. Pastoral Care Visit Length : 10 minute(s) Eitan Yañez - 05/01/2025 11:58 EDT Digitally Signed by Eitan Yañez on 05/01/2025 11:58 AM [id number] Note [facility] Hospitalist Progress Note Subjective: Patient seen and examined for Hypertensive Urgency, SDH. Lou Julien is a 69 yr old male with a history of hypertension, chronic kidney disease stage V, hypercholesterolemia, psoriasis, heart block status post pacemaker placement, type 2 diabetes polyneuropathy, history of DVT, history of paroxysmal SVT, lumbar spondylosis and degenerative disc disease with low back pain who presented as a transfer from outside hospital. Apparently he has home health aide and patient was very unstable and she also caught him falling. Subsequently patient was taken to [facility] where he was found to have hypertensive urgency SBP of 200. He was noted to have subdural hemorrhage, and he was transferred to [facility]. Patient has been treated for hypertensive urgency and his blood pressures have improved. Nephrologyis been consulted because of chronic kidney disease stage V. Renal ultrasound was done which shows medical renal disease with nonobstructive left nephrolithiasis. Patient has been continued on Lantus and Humalog for his diabetes. The patient he is supine awake, alert does not appear in any distress. He denies any headaches. Denies any blurred vision or double vision. Denies any numbness in the face arm or leg. No chest pain or shortness with. Dense productive cough or fever. Denies abdominal pain or bloody diarrhea. Denies any dysuria. Vital Signs (last 24 hrs) Last Charted Temp Oral36.5 DegC (MAY 01:) Heart Rate [id number] bpm (MAY 01 09:11) SBPH 155 mmHg (MAY 01:) DBP70 mmHg (MAY 01:) BMI Patient is awake, alert, oriented times 321.84 (APR 30 19:42) HEENT: No Pallor, No Icterus Cardiac: RRR, No murmur, chest pain Lungs: CTA, good air entry Abdomen: Soft, Non tender Musculoskeletal: No joint pains or swelling Extremities: No edema, good pulses Neurological: Alert, no deficits. All 4 extremities equally. Skin: No rash, no nodules Labs: 04/30 02:39 WBC: 5.0 Hgb: 10.3 L Hct: 30.8 L Platelet: 160 Neutrophil %: 65.3 Glucose Level: 125 H Glucose Level: 125 H Sodium Level: 139 Sodium Level: 139 Potassium Level: 5.0 Potassium Level: 5.0 BUN: 57.0 H BUN: 57.0 H Creatinine Lvl (s): 4.01 H Creatinine Lvl (s): 4.01 H Microbiology No qualifying data available. Inpatient medications: Medications (13) Active Scheduled: (12) amLODIPine 10 mg tablet 10 mg 1 tab(s), Oral, qDay aspirin 81 mg EC 81 mg 1 tab(s), Oral, Daily atorvastatin 80 mg tablet 80 mg 1 tab(s), Oral, qDay carvedilol 25 mg tablet 25 mg 1 tab(s), Oral, BIDM clopidogrel 75 mg Tablet 75 mg 1 tab(s), Oral, qDay heparin 5,000 units/mL (1 mL) vial 5,000 unit(s) 1 mL, Subcutaneous, q12h hydralazine 50 mg Tablet 100 mg 2 tab(s), Oral, q8h insulin glargine 20 unit(s) 0.2 mL, Subcutaneous (INT), qDay insulin lispro 100 units/mL Soln (3 mL) Give 0-5 units/dose, Subcutaneous, TIDAC losartan 25 mg tablet 25 mg 1 tab(s), Oral, qDay tamsulosin 0.4 mg Capsule 0.4 mg 1 cap(s), Oral, qHS traZODONE 50 mg Tablet 50 mg 1 tab(s), Oral, qHS Continuous: (0) PRN: (1) dextrose 50% Solution Disp syringe 50 mL 25 gram(s) 50 mL, IV Push, AsDirected Imaging: US Renal Result Date: April 29, 2025 Verified By: ELLIOT ROSAS MD CLINICAL STATEMENT: IMPRESSION: No hydronephrosis. Increased echogenicity of the kidneys which can be seenin medical renal disease. Left nonobstructive nephrolithiasis. Prostatomegaly. I have personally reviewed the images of this examination and agree with the resident's findings and interpretation. XR Chest 1 View Result Date: April 28, 2025 Verified By: ALBA VILLA, CORNELIUS Alonzo CLINICAL STATEMENT: IMPRESSION: 1. Pacemaker in place.2. No acute cardiopulmonary findings. Assessment/Plan: 1. Hypertensive urgency: Blood pressures have improved. His SBP is more than 160s several times since will increase hydralazine to 100 mg 3 times daily. Continue Coreg, amlodipine. Potassium is slightly high at 5.4, informed nephrology, will monitor. Losartan discontinued per nephrology. 2.: Continue Lantus, Humalog insulin and sliding scale. 3. Chronic kidney disease stage V: Nephrology is consulted. Renal ultrasound reviewed. 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 4. Subdural Hematoma: likely chronic. PT saw pt and felt he can go home with home Care. OT recommends out patient OT. 5.Sick Sinus Syndrome s/p PPM. Discharge in AM if stable. Signature: Gilbert Giang M.D. Digitally Signed by GILBERT GIANG MD on 05/01/2025 06:50 PM [id number] Cardiology Progress note Date of Service 04/30/2025 09:31:53 Subjective Patient was examined bedside today morning. No complaints of chest pains or shortness of breath overnight. Objective Vitals and Measurements T: 37 C (Oral) TMIN: 36.6 C (Oral) TMAX: 37 C (Oral) HR: 66 (Monitored) RR: 20 BP: 158/75 SpO2: 98% Intake and Output Last 24 hours Intake Oral Intake 1080.00 Supplement Intake 240.00 Output Urine Voided 1800.00 Stool Count 0.00 Urine Count 5.00 Total Summary Total Intake 1320.00 Total Output 1800.00 Fluid Balance -480.00 Physical Exam General Appearance: NAD EENT: MOIST MEMBRANES Neck: NO APPRECIABLE JVD Cardiac: RRR Lungs: CTAB Abdomen: NON TENDER TO PALPATION Extremities: NO BILATERAL EDEMA Neurological: AOX3 Weight Dosing Weight: 67.1 kg (04/28/25) Medications Medications (13) Active Scheduled: (12) amLODIPine 10 mg tablet 10 mg 1 tab(s), Oral, qDay aspirin 81 mg EC 81 mg 1 tab(s), Oral, Daily atorvastatin 80 mg tablet 80 mg 1 tab(s), Oral, qDay carvedilol 25 mg tablet 25 mg 1 tab(s), Oral, BIDM clopidogrel 75 mg Tablet 75 mg 1 tab(s), Oral, qDay heparin 5,000 units/mL (1 mL) vial 5,000 unit(s) 1 mL, Subcutaneous, q12h hydralazine 25 mg Tablet 75 mg 3 tab(s), Oral, TID insulin glargine 20 unit(s) 0.2 mL, Subcutaneous (INT), qDay insulin lispro 100 units/mL Soln (3 mL) Give 0-5 units/dose, Subcutaneous, TIDAC losartan 25 mg tablet 25 mg 1 tab(s), Oral, qDay tamsulosin 0.4 mg Capsule 0.4 mg 1 cap(s), Oral, qHS traZODONE 50 mg Tablet 50 mg 1 tab(s), Oral, qHS Continuous: (0) PRN: (1) dextrose 50% Solution Disp syringe 50 mL 25 gram(s) 50 mL, IV Push, AsDirected Lab Results 04/30 02:39 WBC: 5.0 Hgb: 10.3 L Hct: 30.8 L Platelet: 160 Neutrophil %: 65.3 Glucose Level: 125 H Glucose Level: 125 H Sodium Level: 139 Sodium Level: 139 Potassium Level: 5.0 Potassium Level: 5.0 BUN: 57.0 H BUN: 57.0 H Creatinine Lvl (s): 4.01 H Creatinine Lvl (s): 4.01 H 04/29 02:59 WBC: 5.6 Hgb: 10.9 L Hct: 32.6 L Platelet: 166 Neutrophil %: 78.3 H Glucose Level: 81 L Sodium Level: 142 Potassium Level: 4.9 BUN: 50.0 H Creatinine Lvl (s): 3.91 H 04/28 21:37 WBC: 5.4 Hgb: 11.6 L Hct: 35.5 L Platelet: 200 Neutrophil %: 77.9 H Glucose Level: 86 Sodium Level: 143 Potassium Level: 4.9 BUN: 41.0 H Creatinine Lvl (s): 3.88 H Imaging Results and Diagnostics US Renal Result Date: April 29, 2025 Verified By: ELLIOT ROSAS MD CLINICAL STATEMENT: IMPRESSION: No hydronephrosis. Increased echogenicity of the kidneys which can be seenin medical renal disease. Left nonobstructive nephrolithiasis. Prostatomegaly. I have personally reviewed the images of this examination and agree with theresident's findings and interpretation. XR Chest 1 View Result Date: April 28, 2025 Verified By: ALBA VILLA, CORNELIUS Alonzo CLINICAL STATEMENT: IMPRESSION: 1. Pacemaker in place.2. No acute cardiopulmonary findings. EKG Electrocardiogram - Discontinued -- 04/28/25 20:52:00 EDT, Now Assessment/Plan Hypertensive urgency - resolved Sick sinus syndrome status post PPM [employer] Hypertension CKD stage V Subdural hematoma, chronic Patient currently admitted to MICU due to concerns of a chronic subdural hematoma and hypertensive urgency. Hypertensive urgency is largely resolved once patient resumed his home medications. Cardiology is consulted for cardiac clearance for potential AV fistula. Agree with echocardiogram. Will interrogate device. At this time there is no obvious contraindication for patient to receive any surgical procedure from cardiology point of view. Patient can proceed with av fistula. Echo 04/29/25 Summary: 1. Left ventricle: The cavity size is at the upper limits of normal. Wall thickness is normal. Eccentric Left Ventricular Hypertrophy Systolic function is normal. The estimated ejection fraction is 55- 60%. Wall motion is normal; there are no regional wall motion abnormalities. 2. Aortic valve: Thickening, consistent with sclerosis. There is moderate regurgitation. 3. Ascending aorta: The proximal ascending aorta is mildly dilated and 39.0 mm diameter. 4. Mitral valve: The annulus is mildly to moderately calcified. The leaflets are moderately thickened. 5. Inferior vena cava: The IVC is not well visualized. 6. Pericardium, extracardiac: A small pericardial effusion is identified. Features are not consistent with tamponade physiology. Cardiology will sign off. Please do not history to contact back for any additional permission. Digitally Signed by LENCHO CAMPBELL MD on 04/30/2025 02:26 PM [id number] Note* Exam Date Time Procedure Performing Provider Status 05/01/25 7:17 AM VL Renal Artery US/D oppler Complete-CV JOSE GARCIA MD; Auth (Verified) [id number] Note* Exam Date Time Procedure Performing Provider Status 05/01/25 7:17 AM VL Preop Dialysis Ve n/Art Map Bilat JOSE GARCIA MD; Auth (Verified) [id number] Cardiology Progress note Date of Service 04/30/2025 09:31:53 Subjective Patient was examined bedside today morning. No complaints of chest pains or shortness of breath overnight. Objective Vitals and Measurements T: 37 C (Oral) TMIN: 36.6 C (Oral) TMAX: 37 C (Oral) HR: 66 (Monitored) RR: 20 BP: 158/75 SpO2: 98% Intake and Output Last 24 hours Intake Oral Intake 1080.00 Supplement Intake 240.00 Output Urine Voided 1800.00 Stool Count 0.00 Urine Count 5.00 Total Summary Total Intake 1320.00 Total Output 1800.00 Fluid Balance -480.00 Physical Exam General Appearance: NAD EENT: MOIST [employer]ES Neck: NO APPRECIABLE JVD Cardiac: RRR Lungs: CTAB Abdomen: NON TENDER TO PALPATION Extremities: NO BILATERAL EDEMA Neurological: AOX3 Weight Dosing Weight: 67.1 kg (04/28/25) Medications Medications (13) Active Scheduled: (12) amLODIPine 10 mg tablet 10 mg 1 tab(s), Oral, qDay aspirin 81 mg EC 81 mg 1 tab(s), Oral, Daily atorvastatin 80 mg tablet 80 mg 1 tab(s), Oral, qDay carvedilol 25 mg tablet 25 mg 1 tab(s), Oral, BIDM clopidogrel 75 mg Tablet 75 mg 1 tab(s), Oral, qDay heparin 5,000 units/mL (1 mL) vial 5,000 unit(s) 1 mL, Subcutaneous, q12h hydralazine 25 mg Tablet 75 mg 3 tab(s), Oral, TID insulin glargine 20 unit(s) 0.2 mL, Subcutaneous (INT), qDay insulin lispro 100 units/mL Soln (3 mL) Give 0-5 units/dose, Subcutaneous, TIDAC losartan 25 mg tablet 25 mg 1 tab(s), Oral, qDay tamsulosin 0.4 mg Capsule 0.4 mg 1 cap(s), Oral, qHS traZODONE 50 mg Tablet 50 mg 1 tab(s), Oral, qHS Continuous: (0) PRN: (1) dextrose 50% Solution Disp syringe 50 mL 25 gram(s) 50 mL, IV Push, AsDirected Lab Results 04/30 02:39 WBC: 5.0 Hgb: 10.3 L Hct: 30.8 L Platelet: 160 Neutrophil %: 65.3 Glucose Level: 125 H Glucose Level: 125 H Sodium Level: 139 Sodium Level: 139 Potassium Level: 5.0 Potassium Level: 5.0 BUN: 57.0 H BUN: 57.0 H Creatinine Lvl (s): 4.01 H Creatinine Lvl (s): 4.01 H 04/29 02:59 WBC: 5.6 Hgb: 10.9 L Hct: 32.6 L Platelet: 166 Neutrophil %: 78.3 H Glucose Level: 81 L Sodium Level: 142 Potassium Level: 4.9 BUN: 50.0 H Creatinine Lvl (s): 3.91 H 04/28 21:37 WBC: 5.4 Hgb: 11.6 L Hct: 35.5 L Platelet: 200 Neutrophil %: 77.9 H Glucose Level: 86 Sodium Level: 143 Potassium Level: 4.9 BUN: 41.0 H Creatinine Lvl (s): 3.88 H Imaging Results and Diagnostics US Renal Result Date: April 29, 2025 Verified By: ELLIOT ROSAS MD CLINICAL STATEMENT: IMPRESSION: No hydronephrosis. Increased echogenicity of the kidneys which can be seenin medical renal disease. Left nonobstructive nephrolithiasis. Prostatomegaly. I have personally reviewed the images of this examination and agree with theresident's findings and interpretation. XR Chest 1 View Result Date: April 28, 2025 Verified By: ALBA VILLA, CORNELIUS Alonzo CLINICAL STATEMENT: IMPRESSION: 1. Pacemaker in place.2. No acute cardiopulmonary findings. EKG Electrocardiogram - Discontinued -- 04/28/25 20:52:00 EDT, Now Assessment/Plan Hypertensive urgency - resolved Sick sinus syndrome status post PPM [employer] Hypertension CKD stage V Subdural hematoma, chronic Patient currently admitted to MICU due to concerns of a chronic subdural hematoma and hypertensive urgency. Hypertensive urgency is largely resolved once patient resumed his home medications. Cardiology is consulted for cardiac clearance for potential AV fistula. Agree with echocardiogram. Will interrogate device. At this time there is no obvious contraindication for patient to receive any surgical procedure from cardiology point of view. Patient can proceed with av fistula. Echo 04/29/25 Summary: 1. Left ventricle: The cavity size is at the upper limits of normal. Wall thickness is normal. Eccentric Left Ventricular Hypertrophy Systolic function is normal. The estimated ejection fraction is 55- 60%. Wall motion is normal; there are no regional wall motion abnormalities. 2. Aortic valve: Thickening, consistent with sclerosis. There is moderate regurgitation. 3. Ascending aorta: The proximal ascending aorta is mildly dilated and 39.0 mm diameter. 4. Mitral valve: The annulus is mildly to moderately calcified. The leaflets are moderately thickened. 5. Inferior vena cava: The IVC is not well visualized. 6. Pericardium, extracardiac: A small pericardial effusion is identified. Features are not consistent with tamponade physiology. Cardiology will sign off. Please do not history to contact back for any additional permission. Digitally Signed by LENCHO CAMPBELL MD on 04/30/2025 02:26 PM [id number] Note Date of Service 04/30/2025 ICU Day 2 Significant Comorbidities/Current Illness This is a 69 years old male Danish-speaking with a past medical history significant for CVA on February 2019, DVT, type 2 diabetes with polyneuropathy, paroxysmal SVT, heart block s/p pacemaker ICD, hypertension, hypercholesterolemia, psoriasis, contact dermatitis, lumbar spondylosis, lumbar degenerative disc disease, low back pain, iron deficiency anemia, DVT and CKD stage V. Patient had headache about 3 days ago, can be improved by Tylenol. He had faintness and dizziness this morning around 8 AM, he was caught by home health aide when he was going to fell down. Home health aide called [facility] and patient was sent to [facility]. Arriving at the [facility], blood pressure was 200s/80s. ECG showed atrial paced rhythm with prolonged AV conduction, minimal voltage criteria for LVH, may be normal variant (R in aVL), nonspecific ST and T wave abnormality. Brain CT without contrast showed subdural hematomas possible old chronic. CBC showedWBC 6.0, Hgb 11.2, PLT 172. Anion gap 12. eGFR 16. CMP showed creatinine 4.02, potassium 4.8, carbon dioxide 19.2, ALT 12, AST 15. Urinalysis showed urine protein 500, urine glucose 50, urine ketonesnegative, occult blood 25. And [facility], patient received Tylenol 1000 mg, clonidine 0.1 mg, hydralazine 20 mg IV, labetalol 10 mg, metoclopramide 10 mg. Monitored BP 150-170s/80s. Patient was transferred to [facility] for further evaluation and management. On admission, patient stated a headache scale 2 out of 10. BP 155s/80s. He denied cough, chest pain, shortness of breath, dizziness. Patient had a smoking history for 40 years, cessation about 5 years ago. Patient denied alcohol drinking. PMH: paroxysmal SVT, pacemaker ICD, hypercholesterolemia, psoriasis, contact dermatitis, lumbar spondylosis, lumbar degenerative disc disease, low back pain, iron deficient anemia, Anemia associated with stage 5 chronic renal failure (HCC), DVT, GI bleeding due to NSAIDs 24 Hour Summary Pt still in unit, pending transfer to stepdown unit when bed becomes available. Patient denies experiencing any headache, chest pain, shortness of breath, abdominal pain, nausea, vomiting. Physical Exam Vitals and Measurements T: 36.7 C (Oral) TMIN: 36.6 C (Oral) TMAX: 36.8 C (Oral) HR: 66 (Monitored) RR: 18 BP: 146/62 SpO2:96% Weight Dosing Weight: 67.1 kg (04/28/25) General: Alert, in no acute discomfort at rest. Skin: Warm and dry. Neck: No JVD, or tracheal deviation Eyes: PEERL. Normal conjunctiva. EOMs intact ENT: Oral mucous membranes moist. Cardiovascular: Regular rate and rhythm. Palpable radial pulses bilaterally. Respiratory: Lungs are clear without any wheezes, rhonchi, rales. Abdomen: Abdomen soft, nontender. No guarding. No rebound Musculoskeletal: Moves all extremities equally. Palpable DP/PT pulses bilaterally. Neurologic: Awake alert and oriented. No focal neurologic deficits. Normal speech. Oxygenation RA Sedation Sedation GI Prophlyaxis None DVT Prophlyaxis SCDs Nutrition ADA diet Lines/Drains Peripheral IVs Intake and Output Last 24 hours Intake Oral Intake 980.00 Supplement Intake 240.00 Output Urine Voided 1800.00 Stool Count 0.00 Urine Count 4.00 Total Summary Total Intake 1220.00 Total Output 1800.00 Fluid Balance -580.00 Critical Labs Event Name Event Result Date/Time WBC 5 10^3/mcL 04/30/25 02:39:00 WBC 5.6 10^3/[facility] 04/29/25 02:59:00 WBC 5.4 10^3/[facility] 04/28/25 21:37:00 Hgb 10.3 G/dL Low 04/30/25 02:39:00 Hgb 10.9 G/dL Low 04/29/25 02:59:00 Hgb 11.6 G/dL Low 04/28/25 21:37:00 Hct 30.8 % Low 04/30/25 02:39:00 Hct 32.6 % Low 04/29/25 02:59:00 Hct 35.5 % Low 04/28/25 21:37:00 Platelet 160 10^3/[facility] 04/30/25 02:39:00 Platelet 166 10^3/[facility] 04/29/25 02:59:00 Platelet 200 10^3/[facility] 04/28/25 21:37:00 Glucose Level 125 mg/dL High 04/30/25 02:39:00 Glucose Level 125 mg/dL High 04/30/25 02:39:00 Glucose Level 81 mg/dL Low 04/29/25 02:59:00 Glucose Level 86 mg/dL 04/28/25 21:37:00 Sodium Level 139 mEq/L 04/30/25 02:39:00 Sodium Level 139 mEq/L 04/30/25 02:39:00 Sodium Level 142 mEq/L 04/29/25 02:59:00 Sodium Level 143 mEq/L 04/28/25 21:37:00 Potassium Level 5 mEq/L 04/30/25 02:39:00 Potassium Level 5 mEq/L 04/30/25 02:39:00 Potassium Level 4.9 mEq/L 04/29/25 02:59:00 Potassium Level 4.9 mEq/L 04/28/25 21:37:00 Chloride 106 mEq/L 04/30/25 02:39:00 Chloride 106 mEq/L 04/30/25 02:39:00 Chloride 109 mEq/L 04/29/25 02:59:00 Chloride 108 mEq/L 04/28/25 21:37:00 CO2 22 mEq/L 04/30/25 02:39:00 CO2 22 mEq/L 04/30/25 02:39:00 CO2 22 mEq/L 04/29/25 02:59:00 CO2 20 mEq/L Low 04/28/25 21:37:00 BUN 57 mg/dL High 04/30/25 02:39:00 BUN 57 mg/dL High 04/30/25 02:39:00 BUN 50 mg/dL High 04/29/25 02:59:00 BUN 41 mg/dL High 04/28/25 21:37:00 Creatinine Lvl (s) 4.01 mg/dL High 04/30/25 02:39:00 Creatinine Lvl (s) 4.01 mg/dL High 04/30/25 02:39:00 Creatinine Lvl (s) 3.91 mg/dL High 04/29/25 02:59:00 Creatinine Lvl (s) 3.88 mg/dL High 04/28/25 21:37:00 Magnesium Lvl 2 mg/dL 04/30/25 02:39:00 Magnesium Lvl 1.9 mg/dL 04/29/25 02:59:00 Magnesium Lvl 1.9 mg/dL 04/28/25 21:37:00 Phosphorus 5.6 mg/dL High 04/30/25 02:39:00 Lactic Acid Lvl 0.5 mmol/L 04/29/25 05:56:00 Lactic Acid Lvl 0.7 mmol/L 04/29/25 02:59:00 Lactic Acid Lvl 0.5 mmol/L 04/29/25 00:55:00 Lactic Acid Lvl 0.7 mmol/L 04/28/25 21:37:00 Blood Gases No qualifying data available. Imaging Results and Diagnostics Chest Xray/CT/MRI/KUB/2-D Echo Infectious Disease Current Infection Site/Type Culture Results Medications Inpatient amLODIPine, 10 mg= 1 tab(s), Oral, qDay aspirin 81 mg oral delayed release tablet, 81 mg= 1 tab(s), Oral, Daily atorvastatin, 80 mg= 1 tab(s), Oral, qDay carvedilol 25 mg oral tablet, 25 mg= 1 tab(s), Oral, BIDM clopidogrel, 75 mg= 1 tab(s), Oral, qDay Dextrose 50% IV Push, 25 gram(s)= 50 mL, IV Push, AsDirected, PRN heparin 5000 units/mL injection, 5000 unit(s)= 1 mL, Subcutaneous, q12h HumaLOG 100 units/mL subcutaneous solution, Give 0-5 units/dose, Subcutaneous, TIDAC hydrALAZINE, 75 mg= 3 tab(s), Oral, TID Lantus, 20 unit(s)= 0.2 mL, Subcutaneous (INT), qDay losartan, 25 mg= 1 tab(s), Oral, qDay PHARMACY TO DOSE, 1 EA, Miscellaneous, Daily tamsulosin, 0.4 mg= 1 cap(s), Oral, qHS traZODone, 50 mg= 1 tab(s), Oral, qHS Home amLODIPine 1 mg/mL oral liquid, 10 mg= 10 mL, Oral, qDay aspirin 81 mg oral delayed release tablet, 81 mg= 1 tab(s), Oral, Daily atorvastatin 80 mg oral tablet, 80 mg= 1 tab(s), Oral, qDay clopidogrel 75 mg oral tablet, 75 mg= 1 tab(s), Oral, qDay folic acid, 0.4 mg, qDay HumaLOG 100 units/mL injectable solution VIAL, 2 unit(s), Subcutaneous, TID hydrALAZINE 50 mg oral tablet, 50 mg= 1 tab(s), Oral, QID Lantus 100 units/mL10 ml vial solution, 20 unit(s), Subcutaneous, qDay losartan 25 mg oral tablet, 25 mg= 1 tab(s), Oral, qDay melatonin 3 mg oral tablet, disintegrating, 3 mg= 1 tab(s), Oral, qHS, PRN senna (sennosides) 8.6 mg oral tablet, 8.6 mg= 1 tab(s), Oral, TID, PRN tamsulosin 0.4 mg oral capsule, 0.4 mg= 1 cap(s), Oral, qHS Toprol-XL, 100 mg, Oral, qDay traZODone 50 mg oral tablet, 50 mg= 1 tab(s), Oral, qHS Assessment/Plan Hypertension urgency chronic subdural hematoma CKD, stage V type 2 diabetes with polyneuropathy, on Lantus Previous history of CVA on aspirin and Plavix, SVT, heart block status post pacemaker Plan Brain CT 04/26/2025 showed chronic changes, no acute findings. Several tiny lacunar seen in both basal ganglia suggestive of old lacunar infarcts. Prominence of the CSF spaces overlying both cerebral hemispheres suggestive of possible old small bilateral subdural hematomas. Maintain SBP less than 140 Continue home medication losartan 25 mg daily, amlodipine 10 mg daily. Switch metoprolol to carvedilol 25 mg twice daily and increase hydralazine 75 mg 3 times daily to control hypertension, keep monitoring blood pressure Subdural hemorrhage appears chronic and very small. Continue home aspirin and Plavix Continue home medication atorvastatin 80 mg daily for hypercholesterolemia, tamsulosin for BPH, trazodone for insomnia Patient started ADA diet, continue glycemic protocol, Lantus 20 units, Humalog 2 units 3 times before meals Oxygen supplement, wean off as needed, target oxygen saturation 92% CKD stage V. Consult nephrology for further evaluation Heparin subcu for DVT prophylaxis Start on diabetic diet Okay to transfer to stepdown unit Attending addendum: I have personally seen, examined, and evaluated the patient on the encounter date. I have reviewed the resident's documentation and agree with the resident's findings and plan as documented, unless otherwise stated. I have revised portions of the assessment and plan. Jensen Vila MD Code Status Code Status - Ordered -- 04/28/25 22:55:00 EDT, Full Code, Constant Order Digitally Signed by MIESHA ROSAS on 04/30/2025 07:36 AM Digitally Signed by JENSEN VILA MD on 04/30/2025 12:53 PM [id number] Cardiology Consult note Date of Service 04/29/2025 14:09:56 Reason for Consultation Cardiac clearance Referring Physician MICU team History of Present Illness 69-year-old gentleman with known history of sick sinus syndrome status post pacemaker ([employer], placed that was to hospital), hypertension, CKD stage V who initially presented at an outsidehospital for concerns for a chronic subdural hematoma and hypertensive urgency in the setting of a headache. Patient was transferred to MICU for further evaluation. Patient denied any chest pain or shortness of breath. Blood pressure largely improved after resuming her medications. Negative troponins,EKG unremarkable. Cardiology being consulted for cardiac clearance for potential AV fistula. Review of Systems Per HPI Physical Exam Vitals and Measurements T: 36.7 C (Oral) TMIN: 36.6 C (Oral) TMAX: 36.8 C (Oral) HR: 75 (Monitored) RR: 19 BP: 177/68 SpO2:96% HT: 175.3 cm WT: 67.1 kg BMI: 21.84 Weight Dosing Weight: 67.1 kg (04/28/25) General Appearance: NAD EENT: MOIST MEMBRANES Neck: NO APPRECIABLE JVD Cardiac: RRR Lungs: CTAB Abdomen: NON TENDER TO PALPATION Extremities: NO BILATERAL EDEMA Neurological: AOX3 Psychiatric: NORMAL AFFECT Lab Results CMP 04/29/25 02:59 04/28/25 21:37 Glucose Level 81 mg/dL L 86 mg/dL Sodium Level 142 mEq/L 143 mEq/L Potassium Level 4.9 mEq/L 4.9 mEq/L Chloride 109 mEq/L 108 mEq/L CO2 22 mEq/L 20 mEq/L L Electrolyte Balance 11.0 mEq/L 15.0 mEq/L BUN 50.0 mg/dL H 41.0 mg/dL H Creatinine Lvl (s) 3.91 mg/dL H 3.88 mg/dL H BUN/Creatinine Ratio 12.8 ratio 10.6 ratio Calcium Lvl 9.2 mg/dL 9.0 mg/dL Total Protein 6.1 G/dL Albumin Level 3.4 G/dL Globulin 2.7 G/dL A/G Ratio 1.3 ratio Bili Total 0.40 mg/dL Alk Phos 91 U/L AST/SGOT 21 U/L ALT/SGPT 11 U/L L Estimated Glomerular Filtration Rate 16 ml/min/1.73sqm 16 ml/min/1.73sqm CBC 04/29/25 02:59 04/28/25 21:37 Hct 32.6 % L 35.5 % L Hgb 10.9 G/dL L 11.6 G/dL L MCH 28.7 pg 28.3 pg MCHC 33.3 G/dL 32.6 G/dL MCV 86.1 fL 86.8 fL MPV 7.0 fL 7.9 fL Platelet 166 10^3/mcL 200 10^3/mcL RBC 3.79 10^6/mcL L 4.09 10^6/mcL L RDW 15.7 % H 15.5 % WBC 5.6 10^3/mcL 5.4 10^3/mcL Cardiac Enzymes Cardiac Enzymes High Sensitivity Troponin I: 16 ng/L (04/28/25 21:37:00) Lipids No qualifying data available. Imaging Results and Diagnostics XR Chest 1 View Result Date: April 28, 2025 Verified By: ALBA VILLA, CORNELIUS Alonzo CLINICAL STATEMENT: IMPRESSION: 1. Pacemaker in place.2. No acute cardiopulmonary findings. Assessment/Plan Hypertensive urgency, resolved Sick sinus syndrome status post PPM [employer] Hypertension CKD stage V Subdural hematoma, chronic Patient currently admitted to MICU due to concerns of a chronic subdural hematoma and hypertensive urgency. Hypertensive urgency is largely resolved once patient resumed his home medications. Cardiology is consulted for cardiac clearance for potential AV fistula. Agree with echocardiogram. Will interrogate device. At this time there is no obvious contraindication for patient to receive any surgical procedure. Will follow-up with cardiac workup. Cardiology will continue to follow. Procedure/Surgical History No qualifying data available. Medications Inpatient amLODIPine, 10 mg= 1 tab(s), Oral, qDay aspirin 81 mg oral delayed release tablet, 81 mg= 1 tab(s), Oral, Daily atorvastatin, 80 mg= 1 tab(s), Oral, qDay carvedilol 25 mg oral tablet, 25 mg= 1 tab(s), Oral, BIDM clopidogrel, 75 mg= 1 tab(s), Oral, qDay Dextrose 50% IV Push, 25 gram(s)= 50 mL, IV Push, AsDirected, PRN heparin 5000 units/mL injection, 5000 unit(s)= 1 mL, Subcutaneous, q12h HumaLOG 100 units/mL subcutaneous solution, Give 0-5 units/dose, Subcutaneous, TIDAC hydrALAZINE, 75 mg= 3 tab(s), Oral, TID Lantus, 20 unit(s)= 0.2 mL, Subcutaneous (INT), qDay losartan, 25 mg= 1 tab(s), Oral, qDay PHARMACY TO DOSE, 1 EA, Miscellaneous, Daily tamsulosin, 0.4 mg= 1 cap(s), Oral, qHS traZODone, 50 mg= 1 tab(s), Oral, qHS Home amLODIPine 1 mg/mL oral liquid, 10 mg= 10 mL, Oral, qDay aspirin 81 mg oral delayed release tablet, 81 mg= 1 tab(s), Oral, Daily atorvastatin 80 mg oral tablet, 80 mg= 1 tab(s), Oral, qDay clopidogrel 75 mg oral tablet, 75 mg= 1 tab(s), Oral, qDay folic acid, 0.4 mg, qDay HumaLOG 100 units/mL injectable solution VIAL, 2 unit(s), Subcutaneous, TID hydrALAZINE 50 mg oral tablet, 50 mg= 1 tab(s), Oral, QID Lantus 100 units/mL10 ml vial solution, 20 unit(s), Subcutaneous, qDay losartan 25 mg oral tablet, 25 mg= 1 tab(s), Oral, qDay melatonin 3 mg oral tablet, disintegrating, 3 mg= 1 tab(s), Oral, qHS, PRN senna (sennosides) 8.6 mg oral tablet, 8.6 mg= 1 tab(s), Oral, TID, PRN tamsulosin 0.4 mg oral capsule, 0.4 mg= 1 cap(s), Oral, qHS Toprol-XL, 100 mg, Oral, qDay traZODone 50 mg oral tablet, 50 mg= 1 tab(s), Oral, qHS Digitally Signed by VICTOR M WOODWARD MD on 04/29/2025 02:14 PM [id number] Note* Exam Date Time Procedure Performing Provider Status 04/29/25 3:38 PM US Renal ELLIOT ROSAS MD; Auth (Verified) [id number] ORIGINAL EXAMINATION: LIMITED RETROPERITONEAL ULTRASOUND04/29/2025 3:38 pm TECHNIQUE: Multiple real time sonographic images of the urinary system were obtained assessing chery-scale appearance and color Doppler. Permanently stored images were reviewed. COMPARISON: None HISTORY: ORDERING SYSTEM PROVIDED HISTORY: Reason for Exam: CKD V FINDINGS: RIGHT KIDNEY: Measures 9.4 cm in length. Simple cyst measuring 1.3 cm at the upper pole. No hydronephrosis. Increased echogenicity. LEFT KIDNEY: Measures 9.9 cm in length. Echogenic foci measuring 1.0 cm and 0.4 cm at the midpole and lower pole respectively with twinkle artifact. No hydronephrosis. Increased echogenicity. BLADDER: Partially decompressed, otherwise unremarkable. Prostate: Mildly enlarged measuring 5.0 x 3.5 x 0.2 cm with a total volume of 47 mL. IMPRESSION: No hydronephrosis. Increased echogenicity of the kidneys which can be seen in medical renal disease. Left nonobstructive nephrolithiasis. Prostatomegaly. I have personally reviewed the images of this examination and agree with the resident's findings and interpretation. Interpreted by: Elliot Rosas Preliminary Report By: Robert Mccurdy Electronically signed By Elliot Rosas Dictated Date: 04/29/2025 4:02:55 PM Prelim Date: 04/29/2025 4:23:07 PM Sign Date: 04/29/2025 4:28:39 PM Ordering Provider: ARSEN CURTIS [id number] Note* Exam Date Time Procedure Performing Provider Status 04/29/25 3:22 PM Echocardiogram, Adult - CV JACK DIAS MD; Auth (Verified) [id number] Cardiology Consult note Date of Service 04/29/2025 14:09:56 Reason for Consultation Cardiac clearance Referring Physician MICU team History of Present Illness 69-year-old gentleman with known history of sick sinus syndrome status post pacemaker ([employer], placed that was to hospital), hypertension, CKD stage V who initially presented at an outsidehospital for concerns for a chronic subdural hematoma and hypertensive urgency in the setting of a headache. Patient was transferred to MICU for further evaluation. Patient denied any chest pain or shortness of breath. Blood pressure largely improved after resuming her medications. Negative troponins,EKG unremarkable. Cardiology being consulted for cardiac clearance for potential AV fistula. Review of Systems Per HPI Physical Exam Vitals and Measurements T: 36.7 C (Oral) TMIN: 36.6 C (Oral) TMAX: 36.8 C (Oral) HR: 75 (Monitored) RR: 19 BP: 177/68 SpO2:96% HT: 175.3 cm WT: 67.1 kg BMI: 21.84 Weight Dosing Weight: 67.1 kg (04/28/25) General Appearance: NAD EENT: MOIST MEMBRANES Neck: NO APPRECIABLE JVD Cardiac: RRR Lungs: CTAB Abdomen: NON TENDER TO PALPATION Extremities: NO BILATERAL EDEMA Neurological: AOX3 Psychiatric: NORMAL AFFECT Lab Results CMP 04/29/25 02:59 04/28/25 21:37 Glucose Level 81 mg/dL L 86 mg/dL Sodium Level 142 mEq/L 143 mEq/L Potassium Level 4.9 mEq/L 4.9 mEq/L Chloride 109 mEq/L 108 mEq/L CO2 22 mEq/L 20 mEq/L L Electrolyte Balance 11.0 mEq/L 15.0 mEq/L BUN 50.0 mg/dL H 41.0 mg/dL H Creatinine Lvl (s) 3.91 mg/dL H 3.88 mg/dL H BUN/Creatinine Ratio 12.8 ratio 10.6 ratio Calcium Lvl 9.2 mg/dL 9.0 mg/dL Total Protein 6.1 G/dL Albumin Level 3.4 G/dL Globulin 2.7 G/dL A/G Ratio 1.3 ratio Bili Total 0.40 mg/dL Alk Phos 91 U/L AST/SGOT 21 U/L ALT/SGPT 11 U/L L Estimated Glomerular Filtration Rate 16 ml/min/1.73sqm 16 ml/min/1.73sqm CBC 04/29/25 02:59 04/28/25 21:37 Hct 32.6 % L 35.5 % L Hgb 10.9 G/dL L 11.6 G/dL L MCH 28.7 pg 28.3 pg MCHC 33.3 G/dL 32.6 G/dL MCV 86.1 fL 86.8 fL MPV 7.0 fL 7.9 fL Platelet 166 10^3/mcL 200 10^3/mcL RBC 3.79 10^6/mcL L 4.09 10^6/mcL L RDW 15.7 % H 15.5 % WBC 5.6 10^3/mcL 5.4 10^3/mcL Cardiac Enzymes Cardiac Enzymes High Sensitivity Troponin I: 16 ng/L (04/28/25 21:37:00) Lipids No qualifying data available. Imaging Results and Diagnostics XR Chest 1 View Result Date: April 28, 2025 Verified By: CORNELIUS WILLIS MD CLINICAL STATEMENT: IMPRESSION: 1. Pacemaker in place.2. No acute cardiopulmonary findings. Assessment/Plan Hypertensive urgency, resolved Sick sinus syndrome status post PPM [employer] Hypertension CKD stage V Subdural hematoma, chronic Patient currently admitted to MICU due to concerns of a chronic subdural hematoma and hypertensive urgency. Hypertensive urgency is largely resolved once patient resumed his home medications. Cardiology is consulted for cardiac clearance for potential AV fistula. Agree with echocardiogram. Will interrogate device. At this time there is no obvious contraindication for patient to receive any surgical procedure. Will follow-up with cardiac workup. Cardiology will continue to follow. Procedure/Surgical History No qualifying data available. Medications Inpatient amLODIPine, 10 mg= 1 tab(s), Oral, qDay aspirin 81 mg oral delayed release tablet, 81 mg= 1 tab(s), Oral, Daily atorvastatin, 80 mg= 1 tab(s), Oral, qDay carvedilol 25 mg oral tablet, 25 mg= 1 tab(s), Oral, BIDM clopidogrel, 75 mg= 1 tab(s), Oral, qDay Dextrose 50% IV Push, 25 gram(s)= 50 mL, IV Push, AsDirected, PRN heparin 5000 units/mL injection, 5000 unit(s)= 1 mL, Subcutaneous, q12h HumaLOG 100 units/mL subcutaneous solution, Give 0-5 units/dose, Subcutaneous, TIDAC hydrALAZINE, 75 mg= 3 tab(s), Oral, TID Lantus, 20 unit(s)= 0.2 mL, Subcutaneous (INT), qDay losartan, 25 mg= 1 tab(s), Oral, qDay PHARMACY TO DOSE, 1 EA, Miscellaneous, Daily tamsulosin, 0.4 mg= 1 cap(s), Oral, qHS traZODone, 50 mg= 1 tab(s), Oral, qHS Home amLODIPine 1 mg/mL oral liquid, 10 mg= 10 mL, Oral, qDay aspirin 81 mg oral delayed release tablet, 81 mg= 1 tab(s), Oral, Daily atorvastatin 80 mg oral tablet, 80 mg= 1 tab(s), Oral, qDay clopidogrel 75 mg oral tablet, 75 mg= 1 tab(s), Oral, qDay folic acid, 0.4 mg, qDay HumaLOG 100 units/mL injectable solution VIAL, 2 unit(s), Subcutaneous, TID hydrALAZINE 50 mg oral tablet, 50 mg= 1 tab(s), Oral, QID Lantus 100 units/mL10 ml vial solution, 20 unit(s), Subcutaneous, qDay losartan 25 mg oral tablet, 25 mg= 1 tab(s), Oral, qDay melatonin 3 mg oral tablet, disintegrating, 3 mg= 1 tab(s), Oral, qHS, PRN senna (sennosides) 8.6 mg oral tablet, 8.6 mg= 1 tab(s), Oral, TID, PRN tamsulosin 0.4 mg oral capsule, 0.4 mg= 1 cap(s), Oral, qHS Toprol-XL, 100 mg, Oral, qDay traZODone 50 mg oral tablet, 50 mg= 1 tab(s), Oral, qHS Digitally Signed by VICTOR M WOODWARD MD on 04/29/2025 02:14 PM [id number] Pastoral care Progress note Pastoral Care Note Entered On: 04/29/2025 12:31 EDT Performed On: 04/29/2025 10:30 EDT by Osman Goodrich [facility] Care Spiritual Care Visit Initiated by : Consult/Referral Type of Pastoral Visit : Initial visit Spiritual Care Reason for Visit : General Pastoral Care Referral From : Nurse Spiritual Care Intervention : Patient Asleep, Left calling card Spiritual Plan of Care : Visit as Requested Pastoral Care Comments : Patient asleep. Left my card in case we can come back to support the patient or family. Pastoral Care Visit Length : 5 minute(s) Osman Goodrich - 04/29/2025 12:30 EDT Digitally Signed by Osman Goodrich on 04/29/2025 12:30 PM [id number] Nephrology Consult note Date of Service April 29, 2025 Reason for Consultation Hypertensive urgency and chronic kidney disease stage V History of Present Illness Patient is 69 years old. Has a history of prior stroke, type 2 diabetes, peripheral neuropathy and chronic kidney disease stage V. He states that he has never seen a concrete block maker as an outpatient. Heis managed by his primary care physician. He had been sent to a surgeon for enteral access creationhowever. Patient presented to an outside hospital with weakness and headaches. He was found to havechronic subdural hematoma and hypertensive urgency. As result he was transferred to the [facility]. Patient states that he did miss his blood pressure medications on the morning of admission. He has been managed with his home blood pressure medications since arrival. Yesterday BUN and creatinine 41 and 3.9 today BUN 50 with a creatinine of 3.9. He denies uremic symptoms. Appetite is fair. No nausea. No asterixis. Urine output is normal. No hesitancy or frequency. No dysuria. No gross hematuria. He denies NSAID use. No recent contrast exposure. Review of Systems Currently patient is feeling at his baseline. He denies headaches. No vision changes. No chest painor chest pressure. No palpitations. No orthopnea. No nausea or vomiting. Appetite is fair. No diarrhea. No edema. He does have neuropathy in his feet. Physical Exam Vitals and Measurements T: 36.8 C (Oral) TMIN: 36.6 C (Oral) TMAX: 36.8 C (Oral) HR: 73 (Monitored) RR: 27 BP: 156/75 SpO2: 96% HT: 175.3 cm WT: 67.1 kg BMI: 21.84 Weight Dosing Weight: 67.1 kg (04/28/25) General: No distress on room air HEENT: Mucosa was moist, sclera anicteric, extraocular muscles intact, neck veins were flat, no carotid bruits Lungs: Clear bilaterally with no crackles wheezes or rhonchi Heart: Regular with no murmurs rubs or gallops Abdomen: Positive bowel sounds, soft, no palpable masses Extremities: No edema, pulses 1+ in dorsalis pedis arteries Skin: No rashes, normal turgor Lab Results 04/29 02:59 WBC: 5.6 Hgb: 10.9 L Hct: 32.6 L Platelet: 166 Neutrophil %: 78.3 H Glucose Level: 81 L Sodium Level: 142 Potassium Level: 4.9 BUN: 50.0 H Creatinine Lvl (s): 3.91 H 04/28 21:37 WBC: 5.4 Hgb: 11.6 L Hct: 35.5 L Platelet: 200 Neutrophil %: 77.9 H Glucose Level: 86 Sodium Level: 143 Potassium Level: 4.9 BUN: 41.0 H Creatinine Lvl (s): 3.88 H Assessment/Plan 1. Hypertensive urgency: Likely related to his chronic kidney disease. Patient did miss his blood pressure medications on the morning of admission. Blood pressure has been under better control with his home agents. I would recommend increasing hydralazine to 75 mg 3 times daily. Continue losartan and amlodipine. His beta-yue has been changed to carvedilol 25 mg twice daily. No evidence of fluid overload on exam. Given chronic kidney disease and hypertensive urgency, I would recommend a Doppler ultrasound to evaluate his renal arteries while in the hospital. 2. 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 He has been referred for internal access creation. Will do vein mapping while in the hospital. He is not actively uremic. No need to initiate dialysis now. I would like to check a spot urine protein creatinine ratio to quantify his proteinuria As above, we will check an ultrasound of his kidneys as well as a Doppler ultrasound of his kidneysto evaluate for renal artery stenosis. In the meantime I will also evaluate for complications of chronic kidney disease such as anemia, secondary hyperparathyroidism and metabolic acidosis. Procedure/Surgical History No qualifying data available. Medications Inpatient amLODIPine, 10 mg= 1 tab(s), Oral, qDay aspirin 81 mg oral delayed release tablet, 81 mg= 1 tab(s), Oral, Daily atorvastatin, 80 mg= 1 tab(s), Oral, qDay carvedilol 25 mg oral tablet, 25 mg= 1 tab(s), Oral, BIDM clopidogrel, 75 mg= 1 tab(s), Oral, qDay Dextrose 50% IV Push, 25 gram(s)= 50 mL, IV Push, AsDirected, PRN heparin 5000 units/mL injection, 5000 unit(s)= 1 mL, Subcutaneous, q12h HumaLOG 100 units/mL subcutaneous solution, Give 0-5 units/dose, Subcutaneous, TIDAC hydrALAZINE, 75 mg= 3 tab(s), Oral, TID Lantus, 20 unit(s)= 0.2 mL, Subcutaneous (INT), qDay losartan, 25 mg= 1 tab(s), Oral, qDay tamsulosin, 0.4 mg= 1 cap(s), Oral, qHS traZODone, 50 mg= 1 tab(s), Oral, qHS Zofran, 4 mg= 2 mL, IV Push, q4h, PRN Home amLODIPine 1 mg/mL oral liquid, 10 mg= 10 mL, Oral, qDay aspirin 81 mg oral delayed release tablet, 81 mg= 1 tab(s), Oral, Daily atorvastatin 80 mg oral tablet, 80 mg= 1 tab(s), Oral, qDay clopidogrel 75 mg oral tablet, 75 mg= 1 tab(s), Oral, qDay folic acid, 0.4 mg, qDay HumaLOG 100 units/mL injectable solution VIAL, 2 unit(s), Subcutaneous, TID hydrALAZINE 50 mg oral tablet, 50 mg= 1 tab(s), Oral, QID Lantus 100 units/mL10 ml vial solution, 20 unit(s), Subcutaneous, qDay losartan 25 mg oral tablet, 25 mg= 1 tab(s), Oral, qDay melatonin 3 mg oral tablet, disintegrating, 3 mg= 1 tab(s), Oral, qHS, PRN senna (sennosides) 8.6 mg oral tablet, 8.6 mg= 1 tab(s), Oral, TID, PRN tamsulosin 0.4 mg oral capsule, 0.4 mg= 1 cap(s), Oral, qHS Toprol-XL, 100 mg, Oral, qDay traZODone 50 mg oral tablet, 50 mg= 1 tab(s), Oral, qHS Allergies NKA Immunizations No qualifying data available. Digitally Signed by ARSEN CURTIS MD on 04/29/2025 10:15 AM [id number] Note Date of Service 04/29/2025 ICU Day 1 Significant Comorbidities/Current Illness This is a 69 years old male Danish-speaking with a past medical history significant for CVA on February 2019, DVT, type 2 diabetes with polyneuropathy, paroxysmal SVT, heart block s/p pacemaker ICD, hypertension, hypercholesterolemia, psoriasis, contact dermatitis, lumbar spondylosis, lumbar degenerative disc disease, low back pain, iron deficiency anemia, DVT and CKD stage V. Patient had headache about 3 days ago, can be improved by Tylenol. He had faintness and dizziness this morning around 8 AM, he was caught by home health aide when he was going to fell down. Home health aide called [facility] and patient was sent to [facility]. Arriving at the [facility], blood pressure was 200s/80s. ECG showed atrial paced rhythm with prolonged AV conduction, minimal voltage criteria for LVH, may be normal variant (R in aVL), nonspecific ST and T wave abnormality. Brain CT without contrast showed subdural hematomas possible old chronic. CBC showedWBC 6.0, Hgb 11.2, PLT 172. Anion gap 12. eGFR 16. CMP showed creatinine 4.02, potassium 4.8, carbon dioxide 19.2, ALT 12, AST 15. Urinalysis showed urine protein 500, urine glucose 50, urine ketonesnegative, occult blood 25. And [facility], patient received Tylenol 1000 mg, clonidine 0.1 mg, hydralazine 20 mg IV, labetalol 10 mg, metoclopramide 10 mg. Monitored BP 150-170s/80s. Patient was transferred to [facility] for further evaluation and management. On admission, patient stated a headache scale 2 out of 10. BP 155s/80s. He denied cough, chest pain, shortness of breath, dizziness. Patient had a smoking history for 40 years, cessation about 5 years ago. Patient denied alcohol drinking. PMH: paroxysmal SVT, pacemaker ICD, hypercholesterolemia, psoriasis, contact dermatitis, lumbar spondylosis, lumbar degenerative disc disease, low back pain, iron deficient anemia, Anemia associated with stage 5 chronic renal failure (HCC), DVT, GI bleeding due to NSAIDs 24 Hour Summary Restarted home blood pressure medications when he got to the floor yesterday evening. Systolic blood pressure has been in the 130-140 range. No acute problems overnight. Patient denies experiencing chest pain, abdominal pain, shortness of breath, or headache. Physical Exam Vitals and Measurements T: 36.7 C (Oral) TMIN: 36.6 C (Oral) TMAX: 36.7 C (Oral) HR: 64 (Monitored) RR: 13 BP: 134/58 SpO2:95% HT: 175.3 cm WT: 67.1 kg BMI: 21.84 Weight Dosing Weight: 67.1 kg (04/28/25) General: Alert, in no acute discomfort at rest. Skin: Warm and dry. Neck: No JVD, or tracheal deviation Eyes: PEERL. Normal conjunctiva. EOMs intact ENT: Oral mucous membranes moist. Cardiovascular: Regular rate and rhythm. Palpable radial pulses bilaterally. Respiratory: Lungs are clear without any wheezes, rhonchi, rales. Abdomen: Abdomen soft, nontender. No guarding. No rebound Musculoskeletal: Moves all extremities equally. Palpable DP/PT pulses bilaterally. Neurologic: Awake alert and oriented. No focal neurologic deficits. Normal speech. Oxygenation RA Sedation None GI Prophlyaxis None DVT Prophlyaxis SCDs Nutrition ADA diet Lines/Drains Peripheral IVs, Newell Catheter Intake and Output Last 24 hours Intake Oral Intake 50.00 Output Urine Voided 350.00 Stool Count 0.00 Total Summary Total Intake 50.00 Total Output 350.00 Fluid Balance -300.00 Critical Labs Event Name Event Result Date/Time WBC 5.6 10^3/mcL 04/29/25 02:59:00 WBC 5.4 10^3/mcL 04/28/25 21:37:00 Hgb 10.9 G/dL Low 04/29/25 02:59:00 Hgb 11.6 G/dL Low 04/28/25 21:37:00 Hct 32.6 % Low 04/29/25 02:59:00 Hct 35.5 % Low 04/28/25 21:37:00 Platelet 166 10^3/mcL 04/29/25 02:59:00 Platelet 200 10^3/mcL 04/28/25 21:37:00 Glucose Level 81 mg/dL Low 04/29/25 02:59:00 Glucose Level 86 mg/dL 04/28/25 21:37:00 Sodium Level 142 mEq/L 04/29/25 02:59:00 Sodium Level 143 mEq/L 04/28/25 21:37:00 Potassium Level 4.9 mEq/L 04/29/25 02:59:00 Potassium Level 4.9 mEq/L 04/28/25 21:37:00 Chloride 109 mEq/L 04/29/25 02:59:00 Chloride 108 mEq/L 04/28/25 21:37:00 CO2 22 mEq/L 04/29/25 02:59:00 CO2 20 mEq/L Low 04/28/25 21:37:00 BUN 50 mg/dL High 04/29/25 02:59:00 BUN 41 mg/dL High 04/28/25 21:37:00 Creatinine Lvl (s) 3.91 mg/dL High 04/29/25 02:59:00 Creatinine Lvl (s) 3.88 mg/dL High 04/28/25 21:37:00 Magnesium Lvl 1.9 mg/dL 04/29/25 02:59:00 Magnesium Lvl 1.9 mg/dL 04/28/25 21:37:00 Lactic Acid Lvl 0.7 mmol/L 04/29/25 02:59:00 Lactic Acid Lvl 0.5 mmol/L 04/29/25 00:55:00 Lactic Acid Lvl 0.7 mmol/L 04/28/25 21:37:00 Blood Gases No qualifying data available. Imaging Results and Diagnostics Chest Xray/CT/MRI/KUB/2-D Echo Infectious Disease Current Infection Site/Type Culture Results Medications Inpatient amLODIPine, 10 mg= 1 tab(s), Oral, qDay atorvastatin, 80 mg= 1 tab(s), Oral, qDay Dextrose 50% IV Push, 25 gram(s)= 50 mL, IV Push, AsDirected, PRN HumaLOG 100 units/mL subcutaneous solution, Give 0-5 units/dose, Subcutaneous, TIDAC hydrALAZINE, 50 mg= 1 tab(s), Oral, TID Lantus, 20 unit(s)= 0.2 mL, Subcutaneous (INT), qDay losartan, 25 mg= 1 tab(s), Oral, qDay metoprolol succinate 100 mg oral TABLET extended release, 100 mg= 1 tab(s), Oral, qDayM tamsulosin, 0.4 mg= 1 cap(s), Oral, qHS traZODone, 50 mg= 1 tab(s), Oral, qHS Zofran, 4 mg= 2 mL, IV Push, q4h, PRN Home amLODIPine 1 mg/mL oral liquid, 10 mg= 10 mL, Oral, qDay aspirin 81 mg oral delayed release tablet, 81 mg= 1 tab(s), Oral, Daily atorvastatin 80 mg oral tablet, 80 mg= 1 tab(s), Oral, qDay clopidogrel 75 mg oral tablet, 75 mg= 1 tab(s), Oral, qDay folic acid, 0.4 mg, qDay HumaLOG 100 units/mL injectable solution VIAL, 2 unit(s), Subcutaneous, TID hydrALAZINE 50 mg oral tablet, 50 mg= 1 tab(s), Oral, QID Lantus 100 units/mL10 ml vial solution, 20 unit(s), Subcutaneous, qDay losartan 25 mg oral tablet, 25 mg= 1 tab(s), Oral, qDay melatonin 3 mg oral tablet, disintegrating, 3 mg= 1 tab(s), Oral, qHS, PRN senna (sennosides) 8.6 mg oral tablet, 8.6 mg= 1 tab(s), Oral, TID, PRN tamsulosin 0.4 mg oral capsule, 0.4 mg= 1 cap(s), Oral, qHS Toprol-XL, 100 mg, Oral, qDay traZODone 50 mg oral tablet, 50 mg= 1 tab(s), Oral, qHS Assessment/Plan Hypertension urgency chronic subdural hematoma CKD, stage V type 2 diabetes with polyneuropathy, on Lantus Previous history of CVA on aspirin and Plavix, SVT, heart block status post pacemaker Plan Brain CT 04/26/2025 showed chronic changes, no acute findings. Several tiny lacunar seen in both basal ganglia suggestive of old lacunar infarcts. Prominence of the CSF spaces overlying both cerebral hemispheres suggestive of possible old small bilateral subdural hematomas. Maintain SBP less than 140 Continue home medication losartan 25 mg daily, amlodipine 10 mg daily. Switch metoprolol to carvedilol 25 mg twice daily and increase hydralazine 75 mg 3 times daily to control hypertension, keep monitoring blood pressure Subdural hemorrhage appears chronic and very small. Continue home aspirin and Plavix Continue home medication atorvastatin 80 mg daily for hypercholesterolemia, tamsulosin for BPH, trazodone for insomnia Patient started ADA diet, continue glycemic protocol, Lantus 20 units, Humalog 2 units 3 times before meals Oxygen supplement, wean off as needed, target oxygen saturation 92% CKD stage V. Consult nephrology for further evaluation Heparin subcu for DVT prophylaxis Start on diabetic diet Okay to transfer to stepdown unit 30 minutes critical care time Attending addendum: I have personally seen, examined, and evaluated the patient on the encounter date. I have reviewed the resident's documentation and agree with the resident's findings and plan as documented, unless otherwise stated. I have revised portions of the assessment and plan. Jensen Vila MD Code Status Code Status - Ordered -- 04/28/25 22:55:00 EDT, Full Code, Constant Order Digitally Signed by MIESHA ROSAS on 04/29/2025 07:56 AM Digitally Signed by JENSEN VILA MD on 04/29/2025 12:55 PM [id number] Note* Exam Date Time Procedure Performing Provider Status 04/28/25 9:54 PM XR Chest 1 View CORNELIUS WILLIS MD; Auth (Verified) [id number] ORIGINAL EXAMINATION: ONE XRAY VIEW OF THE CHEST 04/28/2025 9:54 pm COMPARISON: None. HISTORY: ORDERING SYSTEM PROVIDED HISTORY: Reason for Exam: Sepsis, evaluate for Pneumonia FINDINGS: The 2 lead left subclavian pacemaker is in place. The heart size is at the upper limits of normal. There is no lung infiltrate or edema. No pneumothorax or pleural fluid is present. There is no acute skeletal abnormality. IMPRESSION: 1. Pacemaker in place. 2. No acute cardiopulmonary findings. Interpreted by: Cornelius Willis MD Preliminary Report By: Cornelius Willis MD Electronically signed By Cornelius Willis MD Dictated Date: 04/29/2025 12:44:29 AM Prelim Date: 04/29/2025 12:45:20 AM Sign Date: 04/29/2025 12:45:20 AM Ordering Provider: [facility]ANNICK [facility]IL[facility]OS[facility]ITALEstephania [facility] [id number] History and physical note Date of Service 04/28/2025 Chief Complaint Headache and dizziness History of Present Illness This is a 69 years old male Danish-speaking with a past medical history significant for CVA on February 2019, DVT, type 2 diabetes with polyneuropathy, paroxysmal SVT, heart block s/p pacemaker ICD, hypertension, hypercholesterolemia, psoriasis, contact dermatitis, lumbar spondylosis, lumbar degenerative disc disease, low back pain, iron deficiency anemia, DVT and CKD stage V. Patient had headache about 3 days ago, can be improved by Tylenol. He had faintness and dizziness this morning around 8 AM, he was caught by home health aide when he was going to fell down. Home health aide called [facility] and patient was sent to [facility]. Arriving at the [facility], blood pressure was 200s/80s. ECG showed atrial paced rhythm with prolonged AV conduction, minimal voltage criteria for LVH, may be normal variant (R in aVL), nonspecific ST and T wave abnormality. Brain CT without contrast showed subdural hematomas possible old chronic. CBC showedWBC 6.0, Hgb 11.2, PLT 172. Anion gap 12. eGFR 16. CMP showed creatinine 4.02, potassium 4.8, carbon dioxide 19.2, ALT 12, AST 15. Urinalysis showed urine protein 500, urine glucose 50, urine ketonesnegative, occult blood 25. And [facility], patient received Tylenol 1000 mg, clonidine 0.1 mg, hydralazine 20 mg IV, labetalol 10 mg, metoclopramide 10 mg. Monitored BP 150-170s/80s. Patient was transferred to [facility] for further evaluation and management. On admission, patient stated a headache scale 2 out of 10. BP 155s/80s. He denied cough, chest pain, shortness of breath, dizziness. Patient had a smoking history for 40 years, cessation about 5 years ago. Patient denied alcohol drinking. Review of Systems pertinent positives mentioned in HPI Physical Exam Vitals and Measurements T: 36.6 C (Oral) HR: 73 (Monitored) RR: 18 BP: 159/67 HT: 175.3 cm WT: 67.1 kg BMI: 21.84 Weight Dosing Weight: 67.1 kg (04/28/25) General: Alert, oriented x3, NAD Head: Normocephalic and atraumatic Neck: Supple, trachea midline Eyes: Extraocular movements intact Respiratory: no rhonchi, wheezing or diminished breath sounds. Cardiovascular: Regular rate and rhythm, no MGR Abdomen: nondistended, nontender Musculoskeletal: Moves all extremities equally. Bilateral lower extremity strength 4/5, upper extremities strength 5/5. Skin: Hair: No color changes, Pigmentation or edema. Neurologic: No FND's, normal speech. Ataxia negative. Psych: Cooperative and appropriate mood and affect. Lab Results No 36 Hour Lab Data Assessment/Plan Assessment Hypertension urgency Hypertension, on losartan amlodipine Toprol, hydralazine Concern for acute on chronic subdural hematoma CKD, stage V type 2 diabetes with polyneuropathy, on Lantus PMH: paroxysmal SVT, pacemaker ICD, hypercholesterolemia, psoriasis, contact dermatitis, lumbar spondylosis, lumbar degenerative disc disease, low back pain, iron deficient anemia, Anemia associated with stage 5 chronic renal failure (HCC), DVT, GI bleeding due to NSAIDs Plan Cancel CT head as low concern of subdural hematoma after Dr. Tellez reviewed the CT head result from [facility]. Brain CT 04/26/2025 showed chronic changes, no acute findings. Severaltiny lacunar seen in both basal ganglia suggestive of old lacunar infarcts. Prominence of the CSF spaces overlying both cerebral hemispheres suggestive of possible old small bilateral subdural hematomas. Maintain SBP less than 140 Continue home medication losartan 25 mg daily, amlodipine 10 mg daily, Toprol 100mg daily, hydralazine 50 mg 3 times daily to control hypertension, keep monitoring blood pressure Hold aspirin and Plavix in context of concerning for subdural hematoma, keep monitoring coagulation Continue home medication atorvastatin 80 mg daily for hypercholesterolemia, tamsulosin for BPH, trazodone for insomnia Patient started ADA diet, continue glycemic protocol, Lantus 20 units, Humalog 2 units 3 times before meals Oxygen supplement, wean off as needed, target oxygen saturation 92% CKD stage V, patient was scheduled for dialysis access surgery on March but was informed by the surgeon that his pacemaker needs to be checked before the procedure In context of low concern of subdural hematoma, switch to ADA diet instead of n.p.o. Diet-NPO code status- Full code DVT prophylaxis- SCD Case discussed with attending physician, , please see addendum for any changes. Procedure/Surgical History No qualifying data available. Medications No qualifying data available Allergies No active allergies Immunizations No qualifying data available. Code Status No qualifying data available. Digitally Signed by MARK HENRY MD on 04/29/2025 01:09 AM Digitally Signed by MARK HENRY MD on 04/29/2025 02:19 AM Digitally Signed by DA TELLEZ MD [facility] [id number] Radiology Diagnostic study note [facility] Imaging Services [address] [place], [place] [address] Brain/Head without Contrast MR#: [id number] Acct: [id number] Name: ANAYALOU Luciano Rep #: [id number] : 1955 M 69 From: Gerald Pierce MD PCP: Dr. Vera Manrique MD Status: REG E R Study:Brain/Head without Contrast Date of Exa m: 04/28/25 Exam# [id number] Ordering Dr: Roshan Horton DO PROCEDURE: CT BRAIN/HEAD WITHOUT CONTRAST 04/28/2025 REASON FOR EXAM: ?SDH, 6 HOUR STABILITY SCAN TECHNIQUE: Procedure Code: CTBR Modality: CT Procedure: BRAIN/HEAD WITHOUT CONTRAST Coronal and Sagittal reconstruction series were provided. One or more dose reduction techniques were used (e.g., Automated exposure control, adjustment of the mA and/or kV according to patient size, use of iterative reconstruction technique. RADIATION DOSE SUMMARY: CTDlvol: 44.99 mGy DLP: 832.67 mGycm COMPARISON: Earlier same day 04/28/2025, 03/04/2023, 09/30/2022. FINDINGS: Thin bilateral late subacute-chronic subdural hematomas are stable in size/appearance from earlier today, but are a new development since 03/04/2023. No significant mass-effect or midline shift. No new acute or expanding intracranial hemorrhage. No acute appearing territorial infarct. Moderatechronic small-vessel ischemic changes with multiple old lacunar infarcts in the bilateral [place] radiata and basal ganglia. Normal ventricular caliber. Atherosclerotic vascular calcifications. Absent [place] ocular lenses. Intact skull base and calvarium. Well-aerated sinuses and mastoids. CT/Brain/Head without Contrast IMPRESSION: Stable thin late subacute-chronic subdural hematoma collections tracking along the bilateral cerebral convexities. No acute or expanding hemorrhage, or significant mass-effect. Reading Location: [facility] CC: Dr. Vera Manrique MD; Dr. 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 Vera Manrique MD Status:REG E R Location: ED HPI History of Present Illness Chief Complaint: Headache Narrative Narrative: Patient is a 69-year-old male with past medical history of chronic kidney disease, hypercholesteremia, diabetes, paroxysmal SVT, complete heart block, hypertension, sick sinus syndrome, CVA, hyperlipidemia who presents to the emergency department chief complaint of headache not feeling well. He states that over the weekend he started not feeling well and developed a headache that progressively worsened throughout the weekend. He states that he has not been eating or drinking much since Monday as he has not had an appetite. Patient denies any falls or head injuries. Patient states that he tookTylenol earlier today for pain at 10:00 that slightly helped his headache. [facility] Medical History GI bleed due to NSAIDs Anemia Acute on chronic kidney failure Kidney failure Need for home health care Insulin dependent diabetes mellitus Leg cramps History of pain when walking Wears glasses Ambulates with cane High cholesterol Stroke/cerebrovascular accident Syncope Dietary restriction History of edema History of echocardiogram History of stress test Cardiology follow-up encounter Irregular heart beat Former smoker DVT (deep venous thrombosis) Pacemaker Diabetes mellitus Paroxysmal supraventricular tachycardia (06/2017) Complete heart block (02/2019) Essential (primary) hypertension Sick sinus syndrome Sinus pause CVA (cerebral vascular accident) (02/2019) Tachyarrhythmia HLD (hyperlipidemia) Home Medications ?Medication ?Instructions ?Recorded ?Last Taken ?Type atorvastatin 80 mg tablet 80 mg PO DAILY cholesterol 0 03/04/19 04/27/25 History multivitamin (Daily-Yousuf tablet) 1 tab PO DAILY SUPPLE MENT 03/11/22 12/25/23 History clopidogrel 75 mg tablet 75 mg PO DAILY 03/14/2304/08 History aspirin 81 mg tablet,delayed 81 mg PO DAILY 04/07/23 0 04/27/25 History release insulin glargine 100 unit/mL (3 20 unit subcut DAILY D IABETES 04/07/23 04/28/25 History mL) subcutaneous pen (Lantus Solostar U-100 Insulin) trazodone 50 mg tablet 50 mg PO QHS 04/07/23 History insulin lispro 100 unit/mL 2 unit subcut TID 05/25/23 04/28/25 History subcutaneous pen hydralazine 50 mg tablet 150 mg PO DAILY 06/29/23 Unk nown History amlodipine 10 mg tablet 10 mg PO DAILY 08/21/2304/08 History metoprolol succinate 100 mg 100 mg PO QHS 08/21/23 History tablet,extended release 24 hr losartan 25 mg tablet 25 mg PO DAILY 04/28/2504/08 History sodium bicarbonate 650 mg tablet 650 mg PO Q8H PRN 04/27/25 History tamsulosin 0.4 mg capsule 0.4 mg PO Q24H 04/28/2504/08 History Allergy/AdvReac Type Severity Reaction Status Date / Time metformin (From Glucophage) AdvReac Diarrhea Verified 04/28/25 10:45 Family History Mother Cancer Father Heart disease Hypertension Myocardial infarction Surgical History History of hand surgery History of carpal tunnel release History of permanent cardiac pacemaker placement (03/05/19) Social History household members: none Smoking Status: Former smoker Smokeless tobacco user: other alcohol intake: never substance use type: does not use ROS ROS ED ROS Narrative Constitutional: Complains of headache and noted above denies lightheadedness or dizziness Eyes: Denies double vision blurry vision Cardiovascular: Denies chest pain Respiratory: Denies shortness of breath Abdomen: Denies abdominal pain nausea vomiting diarrhea : Denies any urinary symptoms Neurological: Denies any numbness, weakness, tingling Musculoskeletal: Denies back pain Skin: Denies any rashes or lesions EXAM Physical Exam Narrative Exam Narrative: General: Patient lying in bed rest comfortably does not appear to be in acute distress Head: Atraumatic, normocephalic Eyes: PERRL bilaterally, EOMI bilaterally, no conjunctival injection noted Neck: Soft, supple, trachea midline Cardiovascular: Regular rate and rhythm Respiratory: Clear to auscultation bilaterally Abdomen: Soft, nondistended, no tenderness palpation Extremities: +5/5 strength noted in the bilateral lower extremities, radial pulses +2/4 in bilateral extremities Neurological: Patient following commands knew that he was at [facility] the year is 2024 NIH of 0 GCS 15 Skin: Warm, dry, intact no rashes or lesions noted Const Vital Signs: 04/28/25 10:43 04/28/25 12:43 04/28/25 14:00 Temperature 98.5 F Temperature Source Oral Pulse Rate 65 71 61 Respiratory Rate 16 18 18 Blood Pressure 175/75 H 165/74 H 152/79 H Blood Pressure Mean 108 104 103 Pulse Ox 99 96 96 Oxygen Delivery Method Room Air Room Air Room Air 04/28/25 14:30 04/28/25 14:34 04/28/25 14:45 Temperature 98.2 F Temperature Source Pulse Rate 66 78 67 Respiratory Rate 18 Blood Pressure 202/85 H 152/79 H 202/83 H Blood Pressure Mean 124 103 122 Pulse Ox 97 Oxygen Delivery Method 04/28/25 14:50 04/28/25 16:00 Temperature Temperature Source Pulse Rate 63 71 Respiratory Rate 26 H Blood Pressure 202/79 H 178/79 H Blood Pressure Mean 120 112 Pulse Ox 99 Oxygen Delivery Method MDM MDM MDM Narrative Medical decision making narrative: Patient is a 69-year-old male who presents to the emergency department chief plaint headache and not feeling well. On the differential diagnosis includes but not limited to tension headache, migraineheadache, electrolyte abnormality,upper respiratory infection second viral etiology, hypertensive em ergency. Onceworkup is obtained reviewed he will be reevaluated. Patient be given Tylenol, Reglan, fluids Patient CBC reviewed which showed no evidence leukocytosis white blood count normal at 6, hemoglobin stable 11.2, platelet count 172. Patient sodium was 130, potassium normal 4.8, creatinine was 4.02he has underlying chronic kidney disease however this is worse when compared to his previous chronic kidney disease, AST and ALT of 15 and 12 respectively lipase normal at 22. Patient urinalysis reviewed showed no evidence of infection.Patient's CT head brain without contrast showed chronic changesno acute findings several tiny lacunar infarcts in the basal ganglia suggestive of old lacunar infarct. Prominence of the CSF spaces overlying both cerebral hemispheres suggestive of possible old small bilateral subdural hematomas. The last CT head and brain have been computer was from 03/04/2023 which showed no acute findings at that point in time. Given we do not have a CT with the chronic bilateral subdural hematomas noted inhis headaches with a elevated blood pressure we will discuss case with hospitalist for admission for MRI and further workup patient will be given 10 mgof labetalol IV Before given the medication nursing staff notified me that his blood pressure was a systolic of 152therefore I told them to hold off on this. Discussed case with on-call neurosurgeon at [facility] with Dr. Tan and he states that the patient does not necessarily need transferred as there is nothing surgical to do for these and he cansee the patient in the outpatient setting. I called back the hospitalist Dr. Esquivel and she notes that she still feels the patient warrants transfer therefore we will discuss the case with hospitalist Ramesh per recommendation of the neurosurgeon Dr. Tan. Went back in as the patient's sister arrived and she is now requesting being transferred to [facility] I notified her that I have made several phone callsto [facility] already as this was his requestbut would gladly reach out to [facility]. We reached out to [facility] And they are approximately 30-40 medical beds deep waiting for patients to receive a bed as well as waiting for ICU beds therefore will stick with the plan of transferring to [facility] as they do not have any beds available and noted that this will be several days before beds will become available at [facility]. Spoke with hospitalist Dr. Gunderson at [facility] and he is requesting discussed casewith electrical designer milton blood pressure after hydralazine 20 mg IV was 178/79 with the chronic subdurals noted on the CT. I spoke with electrical designer Dr. Tellez at [facility] who will except the patient to the medical intensive care unit he states that we do not need to place the patient on a nicardipine drip we can give himclonidine and if he remains hypertensive prior to transfer we can give a another dose of hydralazine intravenously. Patient and family bedside was notified of this plan all question concerns answered. Lab Data Labs: Laboratory Results - last 24 hr 04/28/25 04/28/25 12:05 12:15 WBC 6.0 RBC 3.94 L Hgb 11.2 L Hct 35.2 L MCV 89.3 MCH 28.4 MCHC 31.8 L RDW Std Deviation 46.5 H RDW Coeff of Harry 14.0 Plt Count 172 MPV 9.4 Immature Gran % (Auto) 0.500 Neut % (Auto) 64.3 Lymph % (Auto) 24.2 [place] % (Auto) 8.9 Eos % (Auto) 1.8 Baso % (Auto) 0.3 Absolute Neuts (auto) 3.9 Absolute Lymphs (auto) 1.46 Nucleated RBC % 0 Sodium 138 Potassium 4.8 Chloride 107 Carbon Dioxide 19.2 L Anion Gap 12 BUN 54 H Creatinine 4.02 H Estim Creat Clear Calc 17.28 L Est GFR (MDRD) Non-Af 16 L BUN/Creatinine Ratio 13.4 Glucose 108 H Calcium 8.9 Total Bilirubin 0.48 AST 15 ALT 12 Alkaline Phosphatase 95 Total Protein 6.3 Albumin 3.7 Globulin 2.6 Albumin/Globulin Ratio 1.5 Lipase 22 Urine Color Yellow Urine Clarity Clear Urine pH 7.0 Ur Specific [place] 1.010 Urine Protein 500 H Urine Glucose (UA) 50 H Urine Ketones Negative Urine Occult Blood 25 H Urine Nitrite Negative Urine Bilirubin Negative Urine Urobilinogen Normal Ur Leukocyte Esterase Negative Urine RBC 0 SEEN Urine WBC 0 SEEN Ur Squamous Epith Cells 0 SEEN Urine Bacteria 0 SEEN Urine Mucus 0 SEEN Radiography Diagnostic Testing: Clinical Impression(s) from Imaging Studies Brain CT 04/28/25 11:40 IMPRESSION: CHRONIC CHANGES. NO ACUTE FINDINGS. Several tiny lacune seen in both basal ganglia suggestive of old lacunar infarcts. Prominence of the CSF spaces overlying both cerebral hemispheres suggestive of possible old small bilateral subdural hematomas. Reading Location: [place] [address] Discharge Plan Triage Chief Complaint: Headache ED Provider: Ck Diane Dx/Rx/DC Orders Clinical Impression: Headache, Bilateral chronic intracranial subdural hematoma, Lacunar infarction,Hypertension Prescriptions: No Action clopidogrel 75 mg tablet 75 mg PO DAILY atorvastatin 80 MG tablet 80 mg PO DAILY multivitamin [Daily-Yousuf] Tablet 1 tab PO DAILY insulin glargine [Lantus Solostar U-100 Insulin] 100 unit/mL (3 mL) insulin pen 20 unit SUBCUT DAILY Rx Instructions: am aspirin 81 mg tablet,delayed release (DR/EC) 81 mg PO DAILY trazodone 50 mg tablet 50 mg PO QHS Rx Instructions: May take 50-100 mg nightly. insulin lispro 100 unit/mL insulin pen 2 unit SUBCUT TID hydralazine 50 mg Tablet 150 mg PO DAILY metoprolol succinate 100 mg tablet extended release 24 hr 100 mg PO QHS amlodipine 10 mg tablet 10 mg PO DAILY tamsulosin 0.4 mg capsule 0.4 mg PO Q24H sodium bicarbonate 650 mg tablet 650 mg PO Q8H PRN losartan 25 mg tablet 25 mg PO DAILY Primary Care Provider: Vera Manrique Referrals: Vera Manrique MD [Primary Care Provider, Internal Medicine] Print Language: Danish Disposition Disposition: DC/Tx to Another Type of HCF What to do if you have Problems For any increased pain, shortness of breath, bleeding, nausea or vomiting, chestpain, or any unexpected problems, contact your Primary Care Provider. Call [facility] ([phone]) or report tothe closest Emergency Room. Call 911 if necessary. 04/28/25 6661 Cosigner Signature (if applicable): CC: Dr. Vera Manrique MD ~ Signed [facility]09-22-2025 Discharge summary Author Ck [facility] Note Date/Time April 28, 2025 5:39pm [facility] Medical Records Department [address] [place] [address] Emergency Department Summary 04/28/25 MR#: [id number] Acct: [id number] Name: LOU JULIEN Rep #:[id number] : 1955 69 From: Ck Diane DO PCP: Dr. Vera Manrique MD Status:REG E R Location: ED HPI History of Present Illness Chief Complaint: Headache Narrative Narrative: Patient is a 69-year-old male with past medical history of chronic kidney disease, hypercholesteremia, diabetes, paroxysmal SVT, complete heart block, hypertension, sick sinus syndrome, CVA, hyperlipidemia who presents to the emergency department chief complaint of headache not feeling well. He states that over the weekend he started not feeling well and developed a headache that progressively worsened throughout the weekend. He states that he has not been eating or drinking much since Monday as he has not had an appetite. Patient denies any falls or head injuries. Patient states that he took Tylenol earlier today for pain at 10:00 that slightly helped his headache. PFSH PFSH Medical History GI bleed due to NSAIDs Anemia Acute on chronic kidney failure Kidney failure Need for home health care Insulin dependent diabetes mellitus Leg cramps History of pain when walking Wears glasses Ambulates with cane High cholesterol Stroke/cerebrovascular accident Syncope Dietary restriction History of edema History of echocardiogram History of stress test Cardiology follow-up encounter Irregular heart beat Former smoker DVT (deep venous thrombosis) Pacemaker Diabetes mellitus Paroxysmal supraventricular tachycardia (06/2017) Complete heart block (02/2019) Essential (primary) hypertension Sick sinus syndrome Sinus pause CVA (cerebral vascular accident) (02/2019) Tachyarrhythmia HLD (hyperlipidemia) Home Medications ?Medication ?Instructions ?Recorded ?Last Taken ?Type atorvastatin 80 mg tablet 80 mg PO DAILY cholesterol 0 03/04/19 04/27/25 History multivitamin (Daily-Yousuf tablet) 1 tab PO DAILY SUPPLE MENT 03/11/22 12/25/23 History clopidogrel 75 mg tablet 75 mg PO DAILY 03/14/2304/08 History aspirin 81 mg tablet,delayed 81 mg PO DAILY 04/07/23 0 04/27/25 History release insulin glargine 100 unit/mL (3 20 unit subcut DAILY D IABETES 04/07/23 04/28/25 History mL) subcutaneous pen (Lantus Solostar U-100 Insulin) trazodone 50 mg tablet 50 mg PO QHS 04/07/23 History insulin lispro 100 unit/mL 2 unit subcut TID 05/25/23 04/28/25 History subcutaneous pen hydralazine 50 mg tablet 150 mg PO DAILY 06/29/23 Unk nown History amlodipine 10 mg tablet 10 mg PO DAILY 08/21/2304/08 History metoprolol succinate 100 mg 100 mg PO QHS 08/21/23 History tablet,extended release 24 hr losartan 25 mg tablet 25 mg PO DAILY 04/28/2504/08 History sodium bicarbonate 650 mg tablet 650 mg PO Q8H PRN 04/27/25 History tamsulosin 0.4 mg capsule 0.4 mg PO Q24H 04/28/2504/08 History Allergy/AdvReac Type Severity Reaction Status Date / Time metformin (From Glucophage) AdvReac Diarrhea Verified 04/28/25 10:45 Family History Mother Cancer Father Heart disease Hypertension Myocardial infarction Surgical History History of hand surgery History of carpal tunnel release History of permanent cardiac pacemaker placement (03/05/19) Social History household members: none Smoking Status: Former smoker Smokeless tobacco user: other alcohol intake: never substance use type: does not use ROS ROS ED ROS Narrative Constitutional: Complains of headache and noted above denies lightheadedness or dizziness Eyes: Denies double vision blurry vision Cardiovascular: Denies chest pain Respiratory: Denies shortness of breath Abdomen: Denies abdominal pain nausea vomiting diarrhea : Denies any urinary symptoms Neurological: Denies any numbness, weakness, tingling Musculoskeletal: Denies back pain Skin: Denies any rashes or lesions EXAM Physical Exam Narrative Exam Narrative: General: Patient lying in bed rest comfortably does not appear to be in acute distress Head: Atraumatic, normocephalic Eyes: PERRL bilaterally, EOMI bilaterally, no conjunctival injection noted Neck: Soft, supple, trachea midline Cardiovascular: Regular rate and rhythm Respiratory: Clear to auscultation bilaterally Abdomen: Soft, nondistended, no tenderness palpation Extremities: +5/5 strength noted in the bilateral lower extremities, radial pulses +2/4 in bilateral extremities Neurological: Patient following commands knew that he was at [facility] the year is 2024 NIH of 0 GCS 15 Skin: Warm, dry, intact no rashes or lesions noted Const Vital Signs: 04/28/25 10:43 04/28/25 12:43 04/28/25 14:00 Temperature 98.5 F Temperature Source Oral Pulse Rate 65 71 61 Respiratory Rate 16 18 18 Blood Pressure 175/75 H 165/74 H 152/79 H Blood Pressure Mean 108 104 103 Pulse Ox 99 96 96 Oxygen Delivery Method Room Air Room Air Room Air 04/28/25 14:30 04/28/25 14:34 04/28/25 14:45 Temperature 98.2 F Temperature Source Pulse Rate 66 78 67 Respiratory Rate 18 Blood Pressure 202/85 H 152/79 H 202/83 H Blood Pressure Mean 124 103 122 Pulse Ox 97 Oxygen Delivery Method 04/28/25 14:50 04/28/25 16:00 Temperature Temperature Source Pulse Rate 63 71 Respiratory Rate 26 H Blood Pressure 202/79 H 178/79 H Blood Pressure Mean 120 112 Pulse Ox 99 Oxygen Delivery Method MDM MDM MDM Narrative Medical decision making narrative: Patient is a 69-year-old male who presents to the emergency department chief plaint headache and not feeling well. On the differential diagnosis includes but not limited to tension headache, migraine headache, electrolyte abnormality,upper respiratory infection second viral etiology, hypertensive emergency. Onceworkup is obtained reviewed he will be reevaluated. Patient be given Tylenol, Reglan, fluids Patient CBC reviewed which showed no evidence leukocytosis white blood count normal at 6, hemoglobin stable 11.2, platelet count 172. Patient sodium was 130, potassium normal 4.8, creatinine was 4.02 he has underlying chronic kidney disease however this is worse when compared to his previous chronic kidney disease, AST and ALT of 15 and 12 respectively lipase normal at 22. Patient urinalysis reviewed showed no evidence of infection.Patient's CT head brain without contrast showed chronic changes no acute findings several tiny lacunar infarcts in the basal ganglia suggestive of old lacunar infarct. Prominence of the CSF spaces overlying both cerebral hemispheres suggestive of possible old small bilateral subdural hematomas. The last CT head and brain have been computer was from 03/04/2023 which showed no acute findings at that point in time. Given we do not have a CT with the chronic bilateral subdural hematomas noted inhis headaches with a elevated blood pressure we will discuss case with hospitalist for admission for MRI and further workup patient will be given 10 mgof labetalol IV Before given the medication nursing staff notified me that his blood pressure was a systolic of 152 therefore I told them to hold off on this. Discussed case with on-call neurosurgeon at [facility] with Dr. Tan and he states that the patient does not necessarily need transferred as there is nothing surgical to do for these and he can see the patient in the outpatient setting. I called back the hospitalist Dr. Esquivel and she notes that she still feels the patient warrants transfer therefore we will discuss the case with hospitalist Ramesh per recommendation of the neurosurgeon Dr. Tan. Went back in as the patient's sister arrived and she is now requesting being transferred to [facility] I notified her that I have made several phone callsto [facility] already as this was his request but would gladly reach out to [facility]. We reached out to [facility] And they are approximately 30-40 medical beds deep waiting for patients to receive a bed as well as waiting for ICU beds therefore will stick with the plan of transferring to [facility] as they do not have any beds available and noted that this will be several days before beds will become available at [facility]. Spoke with hospitalist Dr. Gunderson at [facility] and he is requesting discussed casewith electrical designer as his blood pressure after hydralazine 20 mg IV was 178/79 with the chronic subdurals noted on the CT. I spoke with electrical designer Dr. Tellez at [facility] who will except the patient to the medical intensive care unit he states that we do not need to place the patient on a nicardipine drip we can give him clonidine and if he remains hypertensive prior to transfer we can give a another dose of hydralazine intravenously. Patient and family bedside was notified of this plan all question concerns answered. Lab Data Labs: Laboratory Results - last 24 hr 04/28/25 04/28/25 12:05 12:15 WBC 6.0 RBC 3.94 L Hgb 11.2 L Hct 35.2 L MCV 89.3 MCH 28.4 MCHC 31.8 L RDW Std Deviation 46.5 H RDW Coeff of Harry 14.0 Plt Count 172 MPV 9.4 Immature Gran % (Auto) 0.500 Neut % (Auto) 64.3 Lymph % (Auto) 24.2 [place] % (Auto) 8.9 Eos % (Auto) 1.8 Baso % (Auto) 0.3 Absolute Neuts (auto) 3.9 Absolute Lymphs (auto) 1.46 Nucleated RBC % 0 Sodium 138 Potassium 4.8 Chloride 107 Carbon Dioxide 19.2 L Anion Gap 12 BUN 54 H Creatinine 4.02 H Estim Creat Clear Calc 17.28 L Est GFR (MDRD) Non-Af 16 L BUN/Creatinine Ratio 13.4 Glucose 108 H Calcium 8.9 Total Bilirubin 0.48 AST 15 ALT 12 Alkaline Phosphatase 95 Total Protein 6.3 Albumin 3.7 Globulin 2.6 Albumin/Globulin Ratio 1.5 Lipase 22 Urine Color Yellow Urine Clarity Clear Urine pH 7.0 Ur Specific [place] 1.010 Urine Protein 500 H Urine Glucose (UA) 50 H Urine Ketones Negative Urine Occult Blood 25 H Urine Nitrite Negative Urine Bilirubin Negative Urine Urobilinogen Normal Ur Leukocyte Esterase Negative Urine RBC 0 SEEN Urine WBC 0 SEEN Ur Squamous Epith Cells 0 SEEN Urine Bacteria 0 SEEN Urine Mucus 0 SEEN Radiography Diagnostic Testing: Clinical Impression(s) from Imaging Studies Brain CT 04/28/25 11:40 IMPRESSION: CHRONIC CHANGES. NO ACUTE FINDINGS. Several tiny lacune seen in both basal ganglia suggestive of old lacunar infarcts. Prominence of the CSF spaces overlying both cerebral hemispheres suggestive of possible old small bilateral subdural hematomas. Reading Location: [place] [address] Discharge Plan Triage Chief Complaint: Headache ED Provider: Ck Diane Dx/Rx/DC Orders Clinical Impression: Headache, Bilateral chronic intracranial subdural hematoma, Lacunar infarction,Hypertension Prescriptions: No Action clopidogrel 75 mg tablet 75 mg PO DAILY atorvastatin 80 MG tablet 80 mg PO DAILY multivitamin [Daily-Yousuf] Tablet 1 tab PO DAILY insulin glargine [Lantus Solostar U-100 Insulin] 100 unit/mL (3 mL) insulin pen 20 unit SUBCUT DAILY Rx Instructions: am aspirin 81 mg tablet,delayed release (DR/EC) 81 mg PO DAILY trazodone 50 mg tablet 50 mg PO QHS Rx Instructions: May take 50-100 mg nightly. insulin lispro 100 unit/mL insulin pen 2 unit SUBCUT TID hydralazine 50 mg Tablet 150 mg PO DAILY metoprolol succinate 100 mg tablet extended release 24 hr 100 mg PO QHS amlodipine 10 mg tablet 10 mg PO DAILY tamsulosin 0.4 mg capsule 0.4 mg PO Q24H sodium bicarbonate 650 mg tablet 650 mg PO Q8H PRN losartan 25 mg tablet 25 mg PO DAILY Primary Care Provider: Vera Manrique Referrals: Vera Manrique MD [Primary Care Provider, Internal Medicine] Print Language: Danish Disposition Disposition: DC/Tx to Another Type of HCF What to do if you have Problems For any increased pain, shortness of breath, bleeding, nausea or vomiting, chestpain, or any unexpected problems, contact your Primary Care Provider. Call [facility] ([phone]) or report to the closest Emergency Room. Call 911 if necessary. 04/28/25 7531 <Electronically signed by Ck Diane DO> Cosigner Signature (if applicable): CC: Dr. 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 Tellez reviewed the CT head result from [facility]. Brain CT 04/26/2025 showed chronic changes, no acute findings. Several tiny lacunar seen in both basal ganglia suggestive of old lacunar infarcts. Prominence of the CSF spaces overlying both cerebral hemispheres suggestive of possible old small bilateral subdural hematomas. Maintain SBP less than 140 Continue home medication losartan 25 mg daily, amlodipine 10 mg daily, Toprol 100mg daily, hydralazine 50 mg 3 times daily to control hypertension, keep monitoring blood pressure Hold aspirin and Plavix in context of concerning for subdural hematoma, keep monitoring coagulation Continue home medication atorvastatin 80 mg daily for hypercholesterolemia, tamsulosin for BPH, trazodone for insomnia Patient started ADA diet, continue glycemic protocol, Lantus 20 units, Humalog 2 units 3 times before meals Oxygen supplement, wean off as needed, target oxygen saturation 92% CKD stage V, patient was scheduled for dialysis access surgery on March but was informed by the surgeon that his pacemaker needs to be checked before the procedure In context of low concern of subdural hematoma, switch to ADA diet instead of n.p.o. Diet-NPO code status- Full code DVT prophylaxis- SCD Case discussed with attending physician, , please see addendum for any changes. Diagnostic Tests Pending * Anti-PLA2R 05/01/25 * Anti-MPO Antibodies 05/01/25 [facility] 09-22-2025 Radiology Diagnostic study note [facility] Imaging Services [address] [place] [address] Brain/Head without Contrast MR#: [id number] Acct: [id number] Name: LOU JULIEN Rep #: [id number] : 1955 M 69 From: Kory Denton MD PCP: Dr. Vera Manrique MD Status: PRE E R Study:Brain/Head without Contrast Date of Exa m: 04/28/25 Exam# [id number] Ordering Dr: Roshan Diane DO PROCEDURE: BRAIN/HEAD WITHOUT CONTRAST 04/28/2025 REASON FOR EXAM: HEADACHE TECHNIQUE: Procedure Code: CTBR Modality: CT Procedure: BRAIN/HEAD WITHOUT CONTRAST Coronal and Sagittal reconstruction series were provided. One or more dose reduction techniques were used (e.g., Automated exposure control, adjustment of the mA and/or kV according to patient size, use of iterative reconstruction technique. RADIATION DOSE SUMMARY: CTDlvol: 44.99 mGy DLP: 812.98 mGycm COMPARISON: March 04, 2023. FINDINGS: Brain: Low density in the periventricular white matter suggests mild chronic small vessel ischemic changes. There are several tiny lacune in the basal ganglia bilaterally most likely chronic in nature. No evidence of edema. CSF Spaces: Mild generalized cerebral atrophy since prior study, there is slightprominence of the CSF spaces surrounding both cerebral hemispheres suggestive of possible old chronic subdural hematomas. No evidence of mass effect. Sinuses/Mastoids: Prominence of the inferior turbinate in the right nasal fossa. Bones: No fracture. CT/Brain/Head without Contrast IMPRESSION: CHRONIC CHANGES. NO ACUTE FINDINGS. Several tiny lacune seen in both basal ganglia suggestive of old lacunar infarcts. Prominence of the CSF spaces overlying both cerebral hemispheres suggestive of possible old small bilateral subdural hematomas. Reading Location: [place] [address] CC: Dr. Vera Manrique MD; Dr. Ck Diane DO ~ 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: Signed [facility]09-16-2025 History of Present illness Narrative* Octavio Monsalve - 04/22/2025 2:30 PM EDT Lou Julien 1955 04/22/2025 Hematologic problem(s): 1) Anemia due to CKD. HPI: The patient is a 68-year-old male with a past medical history significant for type 2 diabetes with polyneuropathy, paroxysmal SVT, pacemaker-ICD, hypertension, hypercholesterolemia, psoriasis, contact dermatitis, lumbar spondylosis, lumbar degenerative disc disease, low back pain, iron deficiency anemia,? DVT and CKD. Hospitalized at [facility] mid June for abdominal pain. Significant increase in serum Cr over baseline. Received hydration. Hemoglobin 8.2 g/dL on presentation 06/29. Serum creatinine was 3.35 mg/dL. Calcium was 8.4 mg/dL. Serum iron was 50 mcg/dL (reference range 65 to 175 mcg/dL). TIBC 210 mcg/dL. (Reference range 250 to 450 mcg/dL). Ferritin was 128 ng/mL. Total serum protein was 6 g/dL. On EGD was found to have reflux esophagitis with no bleeding. There was a mild Schatzki's ring thatwas dilated. Medium size hiatal hernia. There was hematin (altered blood/ghuqqb-bhquzh-ycrn material) in the gastric body. Granular gastric mucosa that was biopsied. Granular mucosa in the duodenal bulb. There were oozing duodenal ulcers with pigmented material. Treated with argon plasma coagulation. On colonoscopy prep was poor. Moderate diverticulosis was observed in the rectosigmoid colon and sigmoid colon. There were five 1 to 2 mm polyps in the sigmoid colon removed using injection lift and hot snare. One 5 mm polyp in the transverse colon. Stool was observed in the rectum, rectosigmoid, sigmoid at the splenic flexure hepatic flexure and ascending colon as well as cecum. Blood transfusion was not administered. Also had CT of the abdomen pelvis on 06/29/2023. He had bilateral punctate nonobstructing renal stones. Cholelithiasis without CT evidence of acute cholecystitis. There is diverticulosis without CT evidence of acute diverticulitis. Normal appendix. Diffuse atherosclerosis. Degenerative changes. Initial consultation: Endorses poor appetite. No reflux or nausea. Bowels have been moving. Stools formed. No black or bloody stools. Left foot drop with brace. Hand numbness bilaterally. He did not follow-up for further workup. Referred back for anemia. Hemoglobin has been stable over the last year. Serum creatinine worse. Presents for ongoing hematologic management. Interim history: Mr. Julien presents todays for appointment alone. He reports feeling ok today. Has a new aid 5 days a week, going well. States he still does not have much of an appetite,. No recent illnesses. No CP, palpitations. No recent cardiology visits. Per nephrology need pacemaker check prior to rescheduling fistula placement. Has not scheduled pacer check. Holding off on dialysis at this time CKD is stable. Denies dyspnea with ambulation. Denies black or bloody stools. No overt s/s of bleeding. 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 Dyslipidemia Embolism and thrombosis of unspecified site 04/25/2008 Essential hypertension, benign Family history of malignant neoplasm of gastrointestinal tract Iron malabsorption (HCC) 12/12/2024 Non-proliferative diabetic retinopathy, mild, both eyes (HCC) 10/11/2017 Non-proliferative diabetic retinopathy, moderate, both eyes (HCC) 10/14/2019 Other specific developmental learning difficulties Pneumonia 07/07/2015 Dx at [facility] ER Psoriasis and similar disorders Pure hypercholesterolemia Pure hyperglyceridemia Right thalamic infarction (HCC) 02/18/2019 [facility] Stenosis of carotid artery Stroke ([facility]) Tietze's disease Tinea unguium 12/01/2017 Type II or unspecified type diabetes mellitus with neurological manifestations, not stated as uncontrolled(250.60) PAST SURGICAL HISTORY Procedure Laterality Date COLONOSCOPY 08/23/2023 Dr. Javier, [facility] COLONOSCOPY FLX DX W/COLLJ SPEC WHEN PFRMD 2017 repeat 3 years COLONOSCOPY SCREENING 06/22/2023 Dr. Javier, [facility] EGD W/O [facility] SPEC VARICIES INJ 06/22/2023 Dr. Javier, [facility] ESOPHAGOGASTRODUODENOSCOPY TRANSORAL DIAGNOSTIC 2017 EGD LAPAROSCOP GASTRIC BYPASS N/A NEUROPLASTY &/TRANSPOS MEDIAN NRV CARPAL TUNNE 05/08/2012 Carpal tunnel decomp right PACEMAKER 03/04/2019 PAST SURGICAL HISTORY OF EGD PAST SURGICAL HISTORY OF Colonsocopy ALLERGIES Allergen Reactions Lopid [Gemfibrozil] Diarrhea Metformin Diarrhea Current Outpatient Medications Medication Sig losartan (COZAAR) 25 mg tablet TAKE 1 TABLET BY MOUTH DAILY sodium bicarbonate 650 mg tablet Take 1 tablet by mouth three times a day. traZODone (DESYREL) 50 mg tablet Take 1-2 tablets by mouth daily at bedtime. Senna 8.6 mg tab Take 1 tablet by mouth three times a day as needed. amLODIPine (NORVASC) 10 mg tablet Take 1 tablet by mouth once daily. atorvastatin (LIPITOR) 80 mg tablet Take 1 tablet by mouth every morning. metoprolol succinate ER (TOPROL XL) 100 mg Take 1 tablet by mouth every morning. aspirin, enteric coated (ADULT LOW DOSE ASPIRIN) 81 mg EC tablet Take 1 tablet by mouth every morning. DAILY-YOUSUF, WITH FOLIC ACID, 400 mcg Take 1 tablet by mouth once daily. clopidogrel (PLAVIX) 75 mg tablet Take 1 tablet by mouth once daily. insulin glargine (LANTUS SOLOSTAR U-100 INSULIN) 100 unit/mL (3 mL) Inject 20 Units subcutaneously every morning. insulin lispro (HUMALOG KWIKPEN INSULIN) 100 unit/mL Inject 2 Units subcutaneously three times a day before meals. Insulin Kingston, Disposable, (BD ULTRA-FINE LUIS PEN NEEDLE) 32 gauge x Use one needle daily for each insulin dose, 4 x's daily. Type 2 DM, insulin dependent. melatonin 3 mg tablet Take 1 tablet by mouth daily at bedtime. glucose (DEX4 GLUCOSE) 4 gram chewable tablet Take 4 tablets by mouth as needed. Diaper,Brief, Adult,Disposable (DEPEND UNDERWEAR FOR MEN SM-MD) 1 each as needed. Diaper,Brief, Adult,Disposable (UNDERWEAR) Use 3-4 briefs daily as needed. Family states size small. Will need for a full year. And additional incontinence supplies as needed please tamsulosin (FLOMAX) 0.4 mg Take 1 capsule by mouth daily at bedtime. alcohol swabs (ALCOHOL PREP PADS) Apply 1 application to affected area TID with insulin injection hydrALAZINE (APRESOLINE) 50 mg tablet Take 1 tablet by mouth every 8 hours. blood sugar diagnostic (BLOOD GLUCOSE TEST) test strip Test blood sugar(s) three times daily. Dx: Type 2 DM - Uncontrolled E11.65 Insulin: Yes Lancets lancets Test blood sugar(s) one times daily. Dx: Type 2 DM - Uncontrolled E11.65 Insulin: Yes MEDICAL SUPPLY Hospital bed with rails. Blood-Glucose Meter 1 Device as directed. Lancing Device (LANCING DEVICE WITH LANCETS) [facility] [place] to check blood sugars as directed COMPOUNDED PRESCRIPTION Diabetic shoes: DIABETES MELLITUS- uncontrolled with neuropathy Syringe with Needle, Safety (BD INTEGRA) 3 mL 22 x 1 1/2 syrg Uses twice a month for testosterone injections No current facility-administered medications for this visit. 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 Family History Problem Relation Age of Onset Stroke Mother Hypertension Mother Colon Cancer Mother Heart Father IA Diabetes Sister No Known Problems Brother No Known Problems Brother No Known Problems Brother Diabetes Maternal Grandmother No Known Problems Maternal Grandfather No Known Problems Paternal Grandmother No Known Problems Paternal Grandfather Mother in her 60s from lymph node cancer. He is not aware if she had a h/o colon cancer or not. ROS: Constitutional: No fever. No drenching night sweats. All systems reviewed on 04/22/2025 with pertinent positives and negatives as outlined in the interval history. PHYSICAL EXAM: Vitals: Blood pressure 163/72, pulse 68, temperature 36.6 C (97.8 F), temperature source Temporal, weight 70.3 kg (155 lb), SpO2 98%. Pale and thin-in no acute distress. EYES: Sclerae are anicteric bilaterally. LYMPHATIC: There is no palpable cervical or supraclavicular adenopathy. RESPIRATORY: Inspiratory breath sounds are of normal intensity in all patel. No rales, wheezes or rhonchi. CARDIOVASCULAR: Rhythm is regular. ABDOMEN: The abdomen is nondistended. Extremities: No swelling or edema. SKIN: No jaundice. I have performed the physical exam today (04/22/2025) and have edited the note to correlate with current findings. ASSESSMENT/PLAN: (N18.5, D63.1) Anemia associated with stage 5 chronic renal failure (HCC) (primary encounter diagnosis) Assessment: -The patient is a 68-year-old male with past medical history as outlined above. Iron was low for degree of renal insufficiency. - Dr. Freire previously reviewed his previous laboratory workup with him and his brother in detail. No evidence of monoclonal protein in the serum and 24-hour urine collection. Serum light chains and ratio elevated but consistent with GFR. He has diabetic nephropathy and is a candidate for PAULA therapy. - received IV iron last dose 12/24/2024 - Started PAULA on 12/24/24 Plan: - PAULA treatment for hgb less than 10. No injection today - Fistula placement initially scheduled for 01/28 canceled by patients sister. Not rescheduled as ofyet. - will plan to continue as scheduled - discussed PAULA and iron is typically managed by dialysis center once dialysis starts. Pt acknowledged - Iron studies q 3 months, - RTC as scheduled - Needs to follow up with PCP, kidney medicine, vascular medicine and cardiology Octavio Monsalve APRN.HELIARC WELDER I spent a total of 20 minutes on the date of the service which included preparing to see the patient, [id number] patient care, completing clinical documentation, obtaining and/or reviewing separately obtained history, performing a medically appropriate examination, and counseling and educating the patient/family/caregiver. Portions of this note including HPI, ROS, impression/plan may have been copied forward as to provide important historical information essential in contributing to medical decision making. Documentation has been reviewed and edited as necessary to support clinical decision making for today's visit and to reflect my own independent evaluation of this patient. [facility] Note[facility]25 NoteHNO ID: [id number] Author: SAYDA MORENO LPN Service: ? Author Type: Licensed Nurse Type: Progress Notes Filed: 04/22/2025 13:55 Note Text: Injection deferred, parameters not met HGB 10.8 Sayda Moreno [facility]09-16-2025 History of Present illness Narrative* Sayda Moreno LPN - 04/22/2025 1:51 PM EDT Injection deferred, parameters not met HGB 10.8 Sayda Moreno LPN documented in this encounterBluffton Hospital09-10-2025 NoteHNO ID: [id number] Author: AZRA BRUCE LPN Service: ? Author Type: Licensed Nurse Type: Progress Notes Filed: 04/16/2025 10:37 Note Text: Hgb 11.2, treatment parameter not met, aranesp injection deferred. [facility] History of Present illness Narrative* Azra Bruce LPN - 04/16/2025 10:35 AM EDT Hgb 11.2, treatment parameter not met, aranesp injection deferred. Azra Bruce LPN documented in this encounterBluffton Hospital09-02-2025 [facility]09-02-2025 History of Present illness Narrative* Sayda Moreno LPN - 04/08/2025 2:15 PM EDT Patient presents with: Imm/Inj Pt is identified by name and birthdate: Yes. Allergies and medications reviewed. Latex allergy? No. Does this patient have: Unplanned weight loss or gain of greater than 10 pounds, or a change of appetite over the last year? No Does the patient have any concerns about safety in the home/falls? Yes, uses cane Has the patient fallen in the past year? yes Does the patient have difficulty performing or completing routine daily living activities? No Does this patient have concerns about personal safety? No Is patient having pain? Pain: No=0 (pain 0 on a scale of 0-10). Health Maintenance: Reviewed and updated. Does patient have MyChart access or Caregiver proxy: yes Pt/Caregiver willingness and readiness to learn assessed: Yes. Barriers: none aranesp injection administered, right arm, tolerated well, no immediate adverse reactions noted. Sayda Moreno LPN documented in this encounterBluffton Hospital08-28-2025 Telephone encounter Note * Telephone Encounter - Brenda Talavera MA - 04/03/2025 4:03 PM EDT No fax received will close TE at this time. Brenda Talavera MA [facility]08-28-2025 Miscellaneous Notes* Telephone Encounter - Brenda Talavera MA - 04/03/2025 4:03 PM EDT No fax received will close TE at this time. Brenda Talavera MA * Telephone Encounter - Vera Manrique MD - 04/03/2025 1:46 PM EDT I dont see any Regards, Vera Manrique MD * Telephone Encounter - Kasey Flynn - 04/03/2025 10:43 AM EDT Lou is a patient of Vera Manrique MD today patient called asking if [employer], phone [phone] has sent request forms for incontinence supplies. Yashira Aden is also on the phone and stated that the company told her they faxed twice. Provided Yashira with fax number and she will check on this as well. Please follow up with the patient. Patient has been identified by name and birthdate. Duration of symptoms: N/A Person calling: self Call patient at: at home Was an appointment scheduled: No Closing statement: Results or non-symptom based questions: Thank you for calling [facility], your call will be returned within the next business day. Kasey Hayes documented in this encounterBluffton Hospital08-28-2025 Telephone encounter Note * Telephone Encounter - Vera Manrique MD - 04/03/2025 1:46 PM EDT I dont see any Regards, Vera Manrique MD [facility]08-28-2025 Telephone encounter Note* Telephone Encounter - Kasey Flynn - 04/03/2025 10:43 AM EDT Lou is a patient of Vera Manrique MD today patient called asking if [employer], phone [phone] has sent request forms for incontinence supplies. Yashira Aden is also on the phone and stated that the company told her they faxed twice. Provided Yashira with fax number and she will check on this as well. Please follow up with the patient. Patient has been identified by name and birthdate. Duration of symptoms: N/A Person calling: self Call patient at: at home Was an appointment scheduled: No Closing statement: Results or non-symptom based questions: Thank you for calling [facility], your call will be returned within the next business day. Kasey Hayes [facility]08-26-2025 NoteHNO ID: [id number] Author: AZRA BRUCE LPN Service: ? Author Type: Licensed Nurse Type: Progress Notes Filed: 04/01/2025 15:42 Note Text: Patient here for injection of Aranesp. Given SQ in right arm. Patient tolerated well. [facility]08-26-2025 History of Present illness Narrative* Azra Bruce LPN - 04/01/2025 1:44 PM EDT Patient here for injection of Aranesp. Given SQ in right arm. Patient tolerated well. Azra Bruce LPN * Azra Bruce LPN - 04/01/2025 1:31 PM EDT Patient here for injection of Aranesp. Given SQ in right arm. Patient tolerated well. Azra Bruce LPN documented in this encounterBluffton Hospital08-26-2025 NoteHNO ID: [id number] Author: AZRA BRUCE LPN Service: ? Author Type: Licensed Nurse Type: Progress Notes Filed: 04/01/2025 15:42 Note Text: Patient here for injection of Aranesp. Given SQ in right arm. Patient tolerated well. [facility] Note [facility]08-19-[facility] History of Present illness Narrative* Sayda Moreno LPN - 03/25/2025 1:29 PM EDT aranesp injection administered, left arm, tolerated well, no immediate adverse reactions noted. See office notes Sayda Moreno LPN documented in this encounterBluffton Hospital08-19-2025 NoteDay[facility]08-19-2025 History of Present illness Narrative* Octavio Monsalve - 03/25/2025 1:03 PM EDT Lou Julien 1955 03/25/2025 Hematologic problem(s): 1) Anemia due to CKD. HPI: The patient is a 68-year-old male with a past medical history significant for type 2 diabetes with polyneuropathy, paroxysmal SVT, pacemaker-ICD, hypertension, hypercholesterolemia, psoriasis, contact dermatitis, lumbar spondylosis, lumbar degenerative disc disease, low back pain, iron deficiency anemia,? DVT and CKD. Hospitalized at [facility] mid June for abdominal pain. Significant increase in serum Cr over baseline. Received hydration. Hemoglobin 8.2 g/dL on presentation 06/29. Serum creatinine was 3.35 mg/dL. Calcium was 8.4 mg/dL. Serum iron was 50 mcg/dL (reference range 65 to 175 mcg/dL). TIBC 210 mcg/dL. (Reference range 250 to 450 mcg/dL). Ferritin was 128 ng/mL. Total serum protein was 6 g/dL. On EGD was found to have reflux esophagitis with no bleeding. There was a mild Schatzki's ring thatwas dilated. Medium size hiatal hernia. There was hematin (altered blood/zinpml-yjwyvi-nfua material) in the gastric body. Granular gastric mucosa that was biopsied. Granular mucosa in the duodenal bulb. There were oozing duodenal ulcers with pigmented material. Treated with argon plasma coagulation. On colonoscopy prep was poor. Moderate diverticulosis was observed in the rectosigmoid colon and sigmoid colon. There were five 1 to 2 mm polyps in the sigmoid colon removed using injection lift and hot snare. One 5 mm polyp in the transverse colon. Stool was observed in the rectum, rectosigmoid, sigmoid at the splenic flexure hepatic flexure and ascending colon as well as cecum. Blood transfusion was not administered. Also had CT of the abdomen pelvis on 06/29/2023. He had bilateral punctate nonobstructing renal stones. Cholelithiasis without CT evidence of acute cholecystitis. There is diverticulosis without CT evidence of acute diverticulitis. Normal appendix. Diffuse atherosclerosis. Degenerative changes. Initial consultation: Endorses poor appetite. No reflux or nausea. Bowels have been moving. Stools formed. No black or bloody stools. Left foot drop with brace. Hand numbness bilaterally. He did not follow-up for further workup. Referred back for anemia. Hemoglobin has been stable over the last year. Serum creatinine worse. Presents for ongoing hematologic management. Interim history: Mr. Julien presents today for appointment alone. He reports feeling ok today. Recent fall. States he is not so sure what happened. Sprained his ankle. Went to ED. States he hasn't had much of an appetite lately. Has an aid 5 days a week, she makes his food. Though he reports that her last day is Monday as she is relocating. He is not sure who will be replacingher. States he does not have much family support. MORGAN drove him here today, waiting in the car. No recent illnesses. No CP, palpitations. No recent cardiology visits. Per nephrology need pacemaker check prior to rescheduling fistula placement. Holding off on dialysis at this time CKD is stable. Denies dyspnea with ambulation. Denies black or bloody stools. No overt s/s of bleeding. Did not have fistula placed. Encouraged patient to keep follow ups as scheduled. 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 Dyslipidemia Embolism and thrombosis of unspecified site 04/25/2008 Essential hypertension, benign Family history of malignant neoplasm of gastrointestinal tract Iron malabsorption (HCC) 12/12/2024 Non-proliferative diabetic retinopathy, mild, both eyes ([facility]) 10/11/2017 Non-proliferative diabetic retinopathy, moderate, both eyes ([facility]) 10/14/2019 Other specific developmental learning difficulties Pneumonia 07/07/2015 Dx at [facility] Psoriasis and similar disorders Pure hypercholesterolemia Pure hyperglyceridemia Right thalamic infarction (HCC) 02/18/2019 [facility] Stenosis of carotid artery Stroke ([facility]) Tietze's disease Tinea unguium 12/01/2017 Type II or unspecified type diabetes mellitus with neurological manifestations, not stated as uncontrolled(250.60) PAST SURGICAL HISTORY Procedure Laterality Date COLONOSCOPY 08/23/2023 Dr. Javier, [facility] COLONOSCOPY FLX DX W/COLLJ SPEC WHEN PFRMD 2017 repeat 3 years COLONOSCOPY SCREENING 06/22/2023 Dr. Javier, [facility] EGD W/O [facility] SPEC VARICIES INJ 06/22/2023 Dr. Javier, [facility] ESOPHAGOGASTRODUODENOSCOPY TRANSORAL DIAGNOSTIC 2017 EGD LAPAROSCOP GASTRIC BYPASS N/A NEUROPLASTY &/TRANSPOS MEDIAN NRV CARPAL TUNNE 05/08/2012 Carpal tunnel decomp right PACEMAKER 03/04/2019 PAST SURGICAL HISTORY OF EGD PAST SURGICAL HISTORY OF Colonsocopy ALLERGIES Allergen Reactions Lopid [Gemfibrozil] Diarrhea Metformin Diarrhea Current Outpatient Medications Medication Sig losartan (COZAAR) 25 mg tablet TAKE 1 TABLET BY MOUTH DAILY sodium bicarbonate 650 mg tablet Take 1 tablet by mouth three times a day. traZODone (DESYREL) 50 mg tablet Take 1-2 tablets by mouth daily at bedtime. Senna 8.6 mg tab Take 1 tablet by mouth three times a day as needed. amLODIPine (NORVASC) 10 mg tablet Take 1 tablet by mouth once daily. tamsulosin (FLOMAX) 0.4 mg Take 1 capsule by mouth daily at bedtime. atorvastatin (LIPITOR) 80 mg tablet Take 1 tablet by mouth every morning. metoprolol succinate ER (TOPROL XL) 100 mg Take 1 tablet by mouth every morning. aspirin, enteric coated (ADULT LOW DOSE ASPIRIN) 81 mg EC tablet Take 1 tablet by mouth every morning. hydrALAZINE (APRESOLINE) 50 mg tablet Take 1 tablet by mouth every 8 hours. DAILY-YOUSUF, WITH FOLIC ACID, 400 mcg Take 1 tablet by mouth once daily. clopidogrel (PLAVIX) 75 mg tablet Take 1 tablet by mouth once daily. insulin glargine (LANTUS SOLOSTAR U-100 INSULIN) 100 unit/mL (3 mL) Inject 20 Units subcutaneously every morning. insulin lispro (HUMALOG KWIKPEN INSULIN) 100 unit/mL Inject 2 Units subcutaneously three times a day before meals. melatonin 3 mg tablet Take 1 tablet by mouth daily at bedtime. glucose (DEX4 GLUCOSE) 4 gram chewable tablet Take 4 tablets by mouth as needed. Diaper,Brief, Adult,Disposable (DEPEND UNDERWEAR FOR MEN SM-MD) 1 each as needed. Diaper,Brief, Adult,Disposable (UNDERWEAR) Use 3-4 briefs daily as needed. Family states size small. Will need for a full year. And additional incontinence supplies as needed please alcohol swabs (ALCOHOL PREP PADS) Apply 1 application to affected area TID with insulin injection blood sugar diagnostic (BLOOD GLUCOSE TEST) test strip Test blood sugar(s) three times daily. Dx: Type 2 DM - Uncontrolled E11.65 Insulin: Yes Insulin [place], Disposable, (BD ULTRA-FINE LUIS PEN NEEDLE) 32 gauge x 5/32 Use one needle daily for each insulin dose, 4 x's daily. Type 2 DM, insulin dependent. Lancets lancets Test blood sugar(s) one times daily. Dx: Type 2 DM - Uncontrolled E11.65 Insulin: Yes MEDICAL SUPPLY Hospital bed with rails. Blood-Glucose Meter 1 Device as directed. Lancing Device (LANCING DEVICE WITH LANCETS) misc Use to check blood sugars as directed COMPOUNDED PRESCRIPTION Diabetic shoes: DIABETES MELLITUS- uncontrolled with neuropathy Syringe with Needle, Safety (BD INTEGRA) 3 mL 22 x 1 1/2 syrg Uses twice a month for testosterone injections No current facility-administered medications for this visit. 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 Family History Problem Relation Age of Onset Stroke Mother Hypertension Mother Colon Cancer Mother Heart Father IA Diabetes Sister No Known Problems Brother No Known Problems Brother No Known Problems Brother Diabetes Maternal Grandmother No Known Problems Maternal Grandfather No Known Problems Paternal Grandmother No Known Problems Paternal Grandfather Mother in her 60s from lymph node cancer. He is not aware if she had a h/o colon cancer or not. ROS: Constitutional: No fever. No drenching night sweats. All systems reviewed on 03/25/2025 with pertinent positives and negatives as outlined in the interval history. PHYSICAL EXAM: Vitals: Blood pressure 101/52, pulse 65, temperature 36.3 C (97.4 F), temperature source Temporal, weight 66.9 kg (147 lb 8 oz), SpO2 98%. Pale and thin-in no acute distress. EYES: Sclerae are anicteric bilaterally. LYMPHATIC: There is no palpable cervical or supraclavicular adenopathy. RESPIRATORY: Inspiratory breath sounds are of normal intensity in all patel. No rales, wheezes or rhonchi. CARDIOVASCULAR: Rhythm is regular. ABDOMEN: The abdomen is nondistended. Extremities: No swelling or edema. SKIN: No jaundice. I have performed the physical exam today (03/25/2025) and have edited the note to correlate with current findings. ASSESSMENT/PLAN: (N18.5, D63.1) Anemia associated with stage 5 chronic renal failure (HCC) (primary encounter diagnosis) Assessment: -The patient is a 68-year-old male with past medical history as outlined above. Iron was low for degree of renal insufficiency. - Dr. Freire previously reviewed his previous laboratory workup with him and his brother in detail. No evidence of monoclonal protein in the serum and 24-hour urine collection. Serum light chains and ratio elevated but consistent with GFR. He has diabetic nephropathy and is a candidate for PAULA therapy. - received IV iron last dose 12/24/2024 - Started PAULA on 12/24/24 Plan: - PAULA treatment for hgb less than 10. Injection today - Fistula placement initially scheduled for 01/28 canceled by patients sister. Not rescheduled as ofyet. - will plan to continue as scheduled - discussed PAULA and iron is typically managed by dialysis center once dialysis starts. - Iron studies q 3 months, iron studies pending today - RTC as scheduled - Needs to follow up with PCP, kidney medicine, vascular medicine and cardiology Octavio Monsalve APRN.HELIARC WELDER I spent a total of 20 minutes on the date of the service which included preparing to see the patient, [id number] patient care, completing clinical documentation, obtaining and/or reviewing separately obtained history, performing a medically appropriate examination, and counseling and educating the patient/family/caregiver. Portions of this note including HPI, ROS, impression/plan may have been copied forward as to provide important historical information essential in contributing to medical decision making. Documentation has been reviewed and edited as necessary to support clinical decision making for today's visit and to reflect my own independent evaluation of this patient. [facility] Telephone encounter Note * Telephone Encounter - DequanGreg - 03/24/2025 4:12 PM EDT Bertin 03/13/2025 Patient phones requesting refills as follows: Requested Prescriptions Pending Prescriptions Disp Refills losartan (COZAAR) 25 mg tablet [Pharmacy Med Name: Losartan Potassium 25MG TABS] 28 tablet 5 Sig: TAKE 1 TABLET BY MOUTH DAILY sodium bicarbonate 650 mg tablet [Pharmacy Med Name: Sodium Bicarbonate 650MG TABS] 56 tablet Sig: TAKE 1 TABLET BY MOUTH TWICE A DAY Please review and advise. Greg Baires [facility]08-18-2025 Miscellaneous Notes* Telephone Encounter - Greg Baires - 03/24/2025 4:12 PM EDT Bertin 03/13/2025 Patient phones requesting refills as follows: Requested Prescriptions Pending Prescriptions Disp Refills losartan (COZAAR) 25 mg tablet [Pharmacy Med Name: Losartan Potassium 25MG TABS] 28 tablet 5 Sig: TAKE 1 TABLET BY MOUTH DAILY sodium bicarbonate 650 mg tablet [Pharmacy Med Name: Sodium Bicarbonate 650MG TABS] 56 tablet Sig: TAKE 1 TABLET BY MOUTH TWICE A DAY Please review and advise. Greg Baires documented in this encounterBluffton Hospital08-13-2025 Discharge summary [facility] Medical Records Department [address] [place] [id number] Emergency Department Summary 03/19/25 MR#: [id number] Acct: [id number] Name: LOU JULIEN Rep #:[id number] : 1955 69 From: Leonel Baez PCP: Dr. Vera Manrique MD Status:REG E R Location: ED HPI History of Present Illness Chief Complaint: Lower Extremity Injury [facility] Medical History GI bleed due to NSAIDs Anemia Acute on chronic kidney failure Kidney failure Need for home health care Insulin dependent diabetes mellitus Leg cramps History of pain when walking Wears glasses Ambulates with cane High cholesterol Stroke/cerebrovascular accident Syncope Dietary restriction History of edema History of echocardiogram History of stress test Cardiology follow-up encounter Irregular heart beat Former smoker DVT (deep venous thrombosis) Pacemaker Diabetes mellitus Paroxysmal supraventricular tachycardia (06/2017) Complete heart block (02/2019) Essential (primary) hypertension Sick sinus syndrome Sinus pause CVA (cerebral vascular accident) (02/2019) Tachyarrhythmia HLD (hyperlipidemia) Home Medications ?Medication ?Instructions ?Recorded ?Last Taken ?Type atorvastatin 80 mg tablet 80 mg PO DAILY cholesterol 0 03/04/19 08/22/23 History multivitamin (Daily-Yousuf tablet) 1 tab PO DAILY SUPPLE MENT 03/11/22 12/25/23 History ascorbic acid (vitamin C) 500 mg 500 mg PO BID 30 days #60 tabs 03/22/22 08/22/23 Rx tablet (Vitamin C) clopidogrel 75 mg tablet 75 mg PO DAILY 03/14/2308/07 History aspirin 81 mg tablet,delayed 81 mg PO DAILY 04/07/23 U nknown History release insulin glargine 100 unit/mL (3 20 unit subcut .QAM DI ABETES 04/07/23 08/22/23 History mL) subcutaneous pen (Lantus Solostar U-100 Insulin) trazodone 50 mg tablet 50 mg PO QHS 04/07/23 History insulin lispro 100 unit/mL 2 unit subcut TID 05/25/23 08/22/23 History subcutaneous pen hydralazine 50 mg tablet 50 mg PO DAILY 06/29/23 Unkn own History amlodipine 10 mg tablet 10 mg PO DAILY 08/21/23 Unkn own History metoprolol succinate 100 mg 100 mg PO QHS 08/21/23 Unk nown History tablet,extended release 24 hr hydrocodone-acetaminophen 5-325mg 1 tab PO Q6H PRN PRN Pain 3 days 08/15/24 Unknown Rx 5mg-325mg #10 TABLETS cephalexin 500 mg capsule 500 mg PO Q6 #40 CAPSULES Unknown Rx Allergy/AdvReac Type Severity Reaction Status Date / Time metformin (From Glucophage) AdvReac Diarrhea Verified 03/19/25 12:15 Family History Mother Cancer Father Heart disease Hypertension Myocardial infarction Surgical History History of hand surgery History of carpal tunnel release History of permanent cardiac pacemaker placement (03/05/19) Social History household members: none Smoking Status: Former smoker Smokeless tobacco user: other alcohol intake: never substance use type: does not use EXAM Physical Exam Const Vital Signs: 03/19/25 12:16 Temperature 97.9 F Temperature Source Oral Pulse Rate 70 Respiratory Rate 18 Blood Pressure 135/62 H Blood Pressure Mean 86 Pulse Ox 99 Oxygen Delivery Method Room Air [facility] Narr[place] Medical decision making narrative: HISTORY OF PRESENT ILLNESS: Chief complaint: Right ankle pain 69-year-old male history of constipation, CKD, TIA, sick sinus syndrome status post pacemaker, hypertension, hyperlipidemia presents right ankle pain. No mechanical fall from standing just prior to arrival. No head trauma or loss of consciousness noted. No knee pain or hip pain noted. REVIEW OF SYSTEMS: Pertinent positives: Ankle pain Pertinent negatives: As per [facility] PHYSICAL EXAM: Nursing triage notes reviewed, Vital signs reviewed Constitutional: please see [facility] Extremities: No edema, TTP over lateral malleolus. Intact pulses (dorsalis pedis, posterior tibial and bilateral lower extremities. Right lower extremity is warm and well-perfused. Compartments are soft. Neuro: Intact sensation L1-S1 dermatomal distributions. Intact 5/5 strength in hip flexion (T12-L3). Knee extension (L2-L4). Ankle dorsiflexion (L4-L5). Ankle plantar flexion (S1). Great toe extension (L5). 2+ patellar and AchillesDTRs. Skin: No rash or lesions noted, no sign of open MEDICAL DECISION MAKING: Chief Complaint: please see [facility] Narrative: [The patient was initially hemodynamically stable, afebrile and nontoxic- appearing. Exam with TTP over right lateral malleolus. No obvious signs of open fracture. Right lower extremity is warm and well-perfused. I considered the following differential diagnosis: Ankle fracture/dislocation I obtained x-ray to further determine if the patient was suffering from a life- threatening etiology. ALL IMAGES (IF OBTAINED) HAVE BEEN PERSONALLY REVIEWED AND INTERPRETED BY MYSELF. X-ray of the right ankle was read reviewed person by myself showed no evidence of obvious bony abnormality. The patient and/or family, caregivers express understanding. The patient and/or family, caregivers agrees with the plan. Shared decision making: I will have a discussion with the patient and or visitors regarding risk/benefits of further testing or admission. They will be made aware of of the risk/benefits inherent in this decision they will be given the opportunity to voice understanding. Total critical care time today provided was at least 0[ minutes. This excludes separately billable procedures. Critical care time (if documented) is secondary to the patient having high probability of clinically significant/life threatening deterioration in the patient's condition which required myurgent intervention. Impression: 1. Acute right ankle pain 2. Acute right ankle sprain Dispo: Discharge home This note was generated with [employer] dictation software. It may contain incorrect words, spelling, and punctuation that were not noted in review of the chart prior to signing. Radiography Diagnostic Testing: Clinical Impression(s) from Imaging Studies Ankle X-Ray 03/19/25 12:33 IMPRESSION: Calcaneal spurs. Soft tissue swelling. No fracture. Reading Location: [id number] Discharge Plan Triage Chief Complaint: Lower Extremity Injury ED Provider: Leonel Horton Dx/Rx/DC Orders Prescriptions: No Action clopidogrel 75 mg tablet 75 mg PO DAILY atorvastatin 80 MG tablet 80 mg PO DAILY multivitamin [Daily-Yousuf] Tablet 1 tab PO DAILY ascorbic acid (vitamin C) [Vitamin C] 500 mg tablet 500 mg PO BID 30 Days Qty: 60 0RF insulin glargine [Lantus Solostar U-100 Insulin] 100 unit/mL (3 mL) insulin pen 20 unit SUBCUT .QAM aspirin 81 mg tablet,delayed release (DR/EC) 81 mg PO DAILY trazodone 50 mg tablet 50 mg PO QHS Rx Instructions: May take 50-100 mg nightly. insulin lispro 100 unit/mL insulin pen 2 unit SUBCUT TID hydralazine 50 mg Tablet 50 mg PO DAILY metoprolol succinate 100 mg tablet extended release 24 hr 100 mg PO QHS amlodipine 10 mg tablet 10 mg PO DAILY hydrocodone-acetaminophen 5-325 mg tablet 1 tab PO Q6H PRN PRN (Reason: Pain) 3 Days Qty: 10 0RF cephalexin 500 mg capsule 500 mg PO Q6 Qty: 40 0RF Primary Care Provider: Vera Manrique Referrals: eVra Manrique MD [Primary Care Provider] - Print Language: Danish What to do if you have Problems For any increased pain, shortness of breath, bleeding, nausea or vomiting, chestpain, or any unexpected problems, contact your Primary Care Provider. Call [facility] ([phone]) or report tothe closest Emergency Room. Call 911 if necessary. 03/19/25 1340 Cosigner Signature (if applicable): CC: Dr. Vera Manrique MD ~ Signed [facility]08-13-2025 Radiology Diagnostic study note [facility] Imaging Services [address] [place] [address] Ankle min 3 Views MR#: [id number] Acct: [id number] Name: LOU JULIEN Rep #: [id number] : 1955 M 69 From: Kory Denton MD PCP: Dr. Vera Manrique MD Status: REG E R Study:Ankle min 3 Views Date of Exam: Exam# [id number] Ordering Dr: Roshan Horton DO PROCEDURE: ANKLE MIN 3 VIEWS 03/19/2025 REASON FOR EXAM: PAIN, UNABLE TO BEAR WEIGHT TECHNIQUE: ANKLE MIN 3 VIEWS Laterality: Right ankle COMPARISON: None FINDINGS: Bones: No fracture is seen. Joints: Ankle mortise is symmetrical. Soft tissues: Soft tissue swelling. Other: Calcaneal spurs. RAD/Ankle min 3 Views IMPRESSION: Calcaneal spurs. Soft tissue swelling. No fracture. Reading Location: [facility] CC: Dr. Vera Manrique MD; Dr. Leonel Horton DO ~ 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: Signed [facility]08-11-2025 Miscellaneous Notes* Telephone Encounter - Liza Gutierrez RN - 03/17/2025 12:41 PM EDT spoke to patient's sister Janice's message reviewed sister voiced an understanding * Telephone Encounter - Liza Gutierrez RN - 03/17/2025 12:40 PM EDT ----- Message from Janice Hodges APRN.HELIARC WELDER sent at 03/14/2025 4:36 PM EDT ----- Yes, standing orders are and have been in place, just not completed I will send in updated sodium bicarb tx Thanks! ----- Message ----- From: Liza Gutierrez RN Sent: 03/14/2025 3:02 PM EDT To: Janice Hodges APRN.CNP ----- Message from Liza Gutierrez RN sent at 03/14/2025 3:02 PM EDT ----- Please call his sister Continue to follow with hematology for anemia Kidney function remains low, but stable at 14% He should increase sodium bicarbonate to three times daily instead of 2. Staff was able to arrange pacemake check. Once this is completed we can send him back to vascular for fistula creation in preparation for dialysis in the future. No need to initiate at this time I explained to him to make sure that he gets kidney labs once a month along with his hematology labs so we can keep a close eye on things. This was not getting done Thanks! * Telephone Encounter - Liza Gutierrez RN - 03/14/2025 2:59 PM EDT spoke with the patient's sister Janice's message reviewed Sister voiced an understanding Sister is asking is standing orders are placed for his blood work she is also asking if a new Rx can be sent to the pharmacy for the 3 times a day dosing . message routed to Janice please advise, thank you * Telephone Encounter - Liza Gutierrez RN - 03/14/2025 2:59 PM EDT ----- Message from Janice Hodges APRN.HELIARC WELDER sent at 03/14/2025 1:54 PM EDT ----- Please call his sister Continue to follow with hematology for anemia Kidney function remains low, but stable at 14% He should increase sodium bicarbonate to three times daily instead of 2. Staff was able to arrange pacemake check. Once this is completed we can send him back to vascular for fistula creation in preparation for dialysis in the future. No need to initiate at this time I explained to him to make sure that he gets kidney labs once a month along with his hematology labs so we can keep a close eye on things. This was not getting done Thanks! documented in this encounterBluff[facility]08-11-2025 Telephone encounter Note * Telephone Encounter - Liza Gutierrez RN - 03/17/2025 12:41 PM EDT spoke to patient's sister Janice's message reviewed sister voiced an understanding [facility]08-11-2025 Telephone encounter Note* Telephone Encounter - Liza Gutierrez RN - 03/17/2025 12:40 PM EDT ----- Message from Janice Hodges APRN.HELIARC WELDER sent at 03/14/2025 4:36 PM EDT ----- Yes, standing orders are and have been in place, just not completed I will send in updated sodium bicarb tx Thanks! ----- Message ----- From: Liza Gutierrez RN Sent: 03/14/2025 3:02 PM EDT To: Janice Hodges APRN.HELIARC WELDER ----- Message from Liza Gutierrez RN sent at 03/14/2025 3:02 PM EDT ----- Please call his sister Continue to follow with hematology for anemia Kidney function remains low, but stable at 14% He should increase sodium bicarbonate to three times daily instead of 2. Staff was able to arrange pacemake check. Once this is completed we can send him back to vascular for fistula creation in preparation for dialysis in the future. No need to initiate at this time I explained to him to make sure that he gets kidney labs once a month along with his hematology labs so we can keep a close eye on things. This was not getting done Thanks! [place] [address]-08-2025 Telephone encounter Note* Telephone Encounter - Liza Gutierrez RN - 03/14/2025 2:59 PM EDT spoke with the patient's sister Janice's message reviewed Sister voiced an understanding Sister is asking is standing orders are placed for his blood work she is also asking if a new Rx can be sent to the pharmacy for the 3 times a day dosing . message routed to Janice please advise, thank you [facility]08-08-2025 Telephone encounter Note* Telephone Encounter - Liza Gutierrez RN - 03/14/2025 2:59 PM EDT ----- Message from Janice Hodges APRN.HELIARC WELDER sent at 03/14/2025 1:54 PM EDT ----- Please call his sister Continue to follow with hematology for anemia Kidney function remains low, but stable at 14% He should increase sodium bicarbonate to three times daily instead of 2. Staff was able to arrange pacemake check. Once this is completed we can send him back to vascular for fistula creation in preparation for dialysis in the future. No need to initiate at this time I explained to him to make sure that he gets kidney labs once a month along with his hematology labs so we can keep a close eye on things. This was not getting done Thanks! [facility]08-07-20[facility] NoteHNO ID: [id number] Author: SAYDA MORENO LPN Service: ? Author Type: LICENSED NURSE Type: Progress Notes Filed: 03/11/2025 14:30 Note Text: Injection deferered, parameters not met HGB 10.4 [facility] Telephone encounter Note * Telephone Encounter - Domenic Petty - 02/27/2025 9:27 AM EDT 1st attempt to reschedule. Called and lmom. [facility]07-24-2025 Miscellaneous Notes* Telephone Encounter - Domenic Petty - 02/27/2025 9:27 AM EDT 1st attempt to reschedule. Called and lmom. * Telephone Encounter - Darlene Carpenter RPh - 02/27/2025 9:23 AM EDT Primary Care Pharmacy Rescheduling Outreach Patient was no show to 7/3 pharmacy visit and has not yet rescheduled. Call center, please contact patient and reschedule in person, telephone, and virtual visit for Diabetes management within ~4 week(s). (Visit length: 60 minutes) Thank you, Darlene Carpenter PharmD, MITZI Primary Care Clinical Starcher And Tenter Range Feeder 02/27/2025 9:23 AM documented in this encounterBluffton Hospital07-24-2025 Telephone encounter Note * Telephone Encounter - Darlene Carpenter RPh - 02/27/2025 9:23 AM EDT Primary Care Pharmacy Rescheduling Outreach Patient was no show to 7/3 pharmacy visit and has not yet rescheduled. Call center, please contact patient and reschedule in person, telephone, and virtual visit for Diabetes management within ~4 week(s). (Visit length: 60 minutes) Thank you, Darlene Carpenter PharmD, BCAAMANDA Primary Care Clinical Starcher And Tenter Range Feeder 02/27/2025 9:23 AM [facility] Work Phone: [phone] 437-950107-22-2025 Telephone encounter Note* Telephone Encounter - Sima Vidal MA - 02/25/2025 4:32 PM EDT Spoke with his sister and advised and schedule [facility]07-22-2025 Miscellaneous Notes* Telephone Encounter - Sima Vidal MA - 02/25/2025 4:32 PM EDT Spoke with his sister and advised and schedule * Telephone Encounter - Sima Vidal MA - 02/25/2025 4:25 PM EDT Images from the original note were not included. Janice Hodges APRN.ELROY P Stro Carroll Pattern Maker Programer Clinical Pool; P Stro Zacarias/ Ddi/ Guki/ Otol Clerical Pool Can someone please call his sister? His anemia is improving, but he's supposed to get my labs monthly in addition to the hematology labs. He has not had renal labs since November and is nearing dialysis. Standing orders are in place. Please be sure he gets those done with next labs or within the next week or so. He was also supposed to schedule a follow up with me in February or March, which is not done. He needsto please schedule something for after the labs documented in this encounterBluffton Hospital07-22-2025 Telephone encounter Note * Telephone Encounter - Sima Vidal MA - 02/25/2025 4:25 PM EDT Images from the original note were not included. Janice Hodges APRN.ELROY P Stro Ciulli Pattern Maker Programer Clinical Pool; P Stro Zacarias/ Ddi/ Guki/ Otol Clerical Pool Can someone please call his sister? His anemia is improving, but he's supposed to get my labs monthly in addition to the hematology labs. He has not had renal labs since November and is nearing dialysis. Standing orders are in place. Please be sure he gets those done with next labs or within the next week or so. He was also supposed to schedule a follow up with me in February or March, which is not done. He needsto please schedule something for after the labs [facility]07-22-2025 [facility]07-[facility]25 History of Present illness Narrative* Azra Bruce LPN - 02/25/2025 2:02 PM EDT Treatment parameter not met, Hgb 10.1, aranesp injection deferred. For all other information regarding today, see today's OV note with Octavio Monsalve CNP. Azra Bruce LPN documented in this encounterBluffton Hospital07-22-2025 Instructions* Patient Instructions* Octavio Monsalve - 02/25/2025 1:56 PM EDT Follow up with kidney medicine - reschedule fistula placement documented in this encounterBluffton Hospital07-22-2025 [facility]Day[facility]07-[facility]-2025 History of Present illness Narrative* Octavio Monsalve - 02/25/2025 1:34 PM EDT Lou Wolf Anaya 1955 02/25/2025 Hematologic problem(s): 1) Anemia due to CKD. HPI: The patient is a 68-year-old male with a past medical history significant for type 2 diabetes with polyneuropathy, paroxysmal SVT, pacemaker-ICD, hypertension, hypercholesterolemia, psoriasis, contact dermatitis, lumbar spondylosis, lumbar degenerative disc disease, low back pain, iron deficiency anemia,? DVT and CKD. Hospitalized at [facility] mid June for abdominal pain. Significant increase in serum Cr over baseline. Received hydration. Hemoglobin 8.2 g/dL on presentation 06/29. Serum creatinine was 3.35 mg/dL. Calcium was 8.4 mg/dL. Serum iron was 50 mcg/dL (reference range 65 to 175 mcg/dL). TIBC 210 mcg/dL. (Reference range 250 to 450 mcg/dL). Ferritin was 128 ng/mL. Total serum protein was 6 g/dL. On EGD was found to have reflux esophagitis with no bleeding. There was a mild Schatzki's ring thatwas dilated. Medium size hiatal hernia. There was hematin (altered blood/ntgrvi-svrvbf-dhfi material) in the gastric body. Granular gastric mucosa that was biopsied. Granular mucosa in the duodenal bulb. There were oozing duodenal ulcers with pigmented material. Treated with argon plasma coagulation. On colonoscopy prep was poor. Moderate diverticulosis was observed in the rectosigmoid colon and sigmoid colon. There were five 1 to 2 mm polyps in the sigmoid colon removed using injection lift and hot snare. One 5 mm polyp in the transverse colon. Stool was observed in the rectum, rectosigmoid, sigmoid at the splenic flexure hepatic flexure and ascending colon as well as cecum. Blood transfusion was not administered. Also had CT of the abdomen pelvis on 06/29/2023. He had bilateral punctate nonobstructing renal stones. Cholelithiasis without CT evidence of acute cholecystitis. There is diverticulosis without CT evidence of acute diverticulitis. Normal appendix. Diffuse atherosclerosis. Degenerative changes. Initial consultation: Endorses poor appetite. No reflux or nausea. Bowels have been moving. Stools formed. No black or bloody stools. Left foot drop with brace. Hand numbness bilaterally. He did not follow-up for further workup. Referred back for anemia. Hemoglobin has been stable over the last year. Serum creatinine worse. Presents for ongoing hematologic management. Interim history: Mr. Julien presents today for appointment alone. He reports feeling ok today. Glad he does not need aranesp today. Denies any new issues. No recent illnesses. Denies dyspnea with ambulation. Denies black or bloody stools. Did not have fistula placed. He is not sure of plan. He has not had follow up with nephrology. Missed his last PCP visit as well. Encouraged patient to keep follow ups as scheduled. 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 Dyslipidemia Embolism and thrombosis of unspecified site 04/25/2008 Essential hypertension, benign Family history of malignant neoplasm of gastrointestinal tract Iron malabsorption (HCC) 12/12/2024 Non-proliferative diabetic retinopathy, mild, both eyes (HCC) 10/11/2017 Non-proliferative diabetic retinopathy, moderate, both eyes ([facility]) 10/14/2019 Other specific developmental learning difficulties Pneumonia 07/07/2015 Dx at [facility] ER Psoriasis and similar disorders Pure hypercholesterolemia Pure hyperglyceridemia Right thalamic infarction (HCC) 02/18/2019 [facility] Stenosis of carotid artery Stroke ([facility]) Tietze's disease Tinea unguium 12/01/2017 Type II or unspecified type diabetes mellitus with neurological manifestations, not stated as uncontrolled(250.60) PAST SURGICAL HISTORY Procedure Laterality Date COLONOSCOPY 08/23/2023 Dr. Javier, [facility] COLONOSCOPY FLX DX W/COLLJ SPEC WHEN PFRMD 2017 repeat 3 years COLONOSCOPY SCREENING 06/22/2023 Dr. Javier, [facility] EGD W/O [facility] SPEC VARICIES INJ 06/22/2023 Dr. Javier, [facility] ESOPHAGOGASTRODUODENOSCOPY TRANSORAL DIAGNOSTIC 2017 EGD LAPAROSCOP GASTRIC BYPASS N/A NEUROPLASTY &/TRANSPOS MEDIAN NRV CARPAL TUNNE 05/08/2012 Carpal tunnel decomp right PACEMAKER 03/04/2019 PAST SURGICAL HISTORY OF EGD PAST SURGICAL HISTORY OF Colonsocopy ALLERGIES Allergen Reactions Lopid [Gemfibrozil] Diarrhea Metformin Diarrhea Current Outpatient Medications Medication Sig Diaper,Brief, Adult,Disposable (DEPEND UNDERWEAR FOR MEN SM-MD) 1 each as needed. Diaper,Brief, Adult,Disposable (UNDERWEAR) Use 3-4 briefs daily as needed. Family states size small. Will need for a full year. And additional incontinence supplies as needed please traZODone (DESYREL) 50 mg tablet Take 1-2 tablets by mouth daily at bedtime. Senna 8.6 mg tab Take 1 tablet by mouth three times a day as needed. sodium bicarbonate 650 mg tablet TAKE 1 TABLET BY MOUTH TWICE A DAY losartan (COZAAR) 25 mg tablet TAKE 1 TABLET BY MOUTH DAILY amLODIPine (NORVASC) 10 mg tablet Take 1 tablet by mouth once daily. tamsulosin (FLOMAX) 0.4 mg Take 1 capsule by mouth daily at bedtime. atorvastatin (LIPITOR) 80 mg tablet Take 1 tablet by mouth every morning. metoprolol succinate ER (TOPROL XL) 100 mg Take 1 tablet by mouth every morning. alcohol swabs (ALCOHOL PREP PADS) Apply 1 application to affected area TID with insulin injection aspirin, enteric coated (ADULT LOW DOSE ASPIRIN) 81 mg EC tablet Take 1 tablet by mouth every morning. hydrALAZINE (APRESOLINE) 50 mg tablet Take 1 tablet by mouth every 8 hours. DAILY-YOUSUF, WITH FOLIC ACID, 400 mcg Take 1 tablet by mouth once daily. clopidogrel (PLAVIX) 75 mg tablet Take 1 tablet by mouth once daily. insulin glargine (LANTUS SOLOSTAR U-100 INSULIN) 100 unit/mL (3 mL) Inject 20 Units subcutaneously every morning. blood sugar diagnostic (BLOOD GLUCOSE TEST) test strip Test blood sugar(s) three times daily. Dx: Type 2 DM - Uncontrolled E11.65 Insulin: Yes insulin lispro (HUMALOG KWIKPEN INSULIN) 100 unit/mL Inject 2 Units subcutaneously three times a day before meals. Insulin [place], Disposable, (BD ULTRA-FINE LUIS PEN NEEDLE) 32 gauge x 5/32 Use one needle daily for each insulin dose, 4 x's daily. Type 2 DM, insulin dependent. Lancets lancets Test blood sugar(s) one times daily. Dx: Type 2 DM - Uncontrolled E11.65 Insulin: Yes MEDICAL SUPPLY Hospital bed with rails. Blood-Glucose Meter 1 Device as directed. melatonin 3 mg tablet Take 1 tablet by mouth daily at bedtime. glucose (DEX4 GLUCOSE) 4 gram chewable tablet Take 4 tablets by mouth as needed. Lancing Device (LANCING DEVICE WITH LANCETS) [facility] [place] Use to check blood sugars as directed COMPOUNDED PRESCRIPTION Diabetic shoes: DIABETES MELLITUS- uncontrolled with neuropathy Syringe with Needle, Safety (BD INTEGRA) 3 mL 22 x 1 1/2 syrg Uses twice a month for testosterone injections No current facility-administered medications for this visit. 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 Family History Problem Relation Age of Onset Stroke Mother Hypertension Mother Colon Cancer Mother Heart Father IA Diabetes Sister No Known Problems Brother No Known Problems Brother No Known Problems Brother Diabetes Maternal Grandmother No Known Problems Maternal Grandfather No Known Problems Paternal Grandmother No Known Problems Paternal Grandfather Mother in her 60s from lymph node cancer. He is not aware if she had a h/o colon cancer or not. ROS: Constitutional: No fever. No drenching night sweats. All systems reviewed on 02/25/2025 with pertinent positives and negatives as outlined in the interval history. PHYSICAL EXAM: Vitals: Blood pressure 134/62, pulse 67, temperature 36.4 C (97.5 F), temperature source Temporal, weight 67.1 kg (148 lb), SpO2 98%. Pale and thin-in no acute distress. EYES: Sclerae are anicteric bilaterally. LYMPHATIC: There is no palpable cervical or supraclavicular adenopathy. RESPIRATORY: Inspiratory breath sounds are of normal intensity in all patel. No rales, wheezes or rhonchi. CARDIOVASCULAR: Rhythm is regular. ABDOMEN: The abdomen is nondistended. Extremities: No swelling or edema. SKIN: No jaundice. I have performed the physical exam today (02/25/2025) and have edited the note to correlate with current findings. ASSESSMENT/PLAN: (N18.5, D63.1) Anemia associated with stage 5 chronic renal failure (HCC) (primary encounter diagnosis) Assessment: -The patient is a 68-year-old male with past medical history as outlined above. Iron was low for degree of renal insufficiency. - Dr. Freire previously reviewed his previous laboratory workup with him and his brother in detail. No evidence of monoclonal protein in the serum and 24-hour urine collection. Serum light chains and ratio elevated but consistent with GFR. He has diabetic nephropathy and is a candidate for PAULA therapy. - received IV iron last dose 12/24/2024 - Started PAULA on 12/24/24 Plan: - PAULA treatment for hgb less than 10. No injection today - Fistula placement initially scheduled for 01/28 canceled by patients sister. Not rescheduled as ofyet. - will plan to continue as scheduled until we know final plan for dialysis. - discussed PAULA and iron is typically managed by dialysis center once dialysis starts. - Iron studies q 3 months - RTC as scheduled - Needs to follow up with PCP, kidney medicine, vascular medicine and cardiology Octavio Monsalve APRN.HELIARC WELDER I spent a total of 20 minutes on the date of the service which included preparing to see the patient, [id number] patient care, completing clinical documentation, obtaining and/or reviewing separately obtained history, performing a medically appropriate examination, and counseling and educating the patient/family/caregiver. Portions of this note including HPI, ROS, impression/plan may have been copied forward as to provide important historical information essential in contributing to medical decision making. Documentation has been reviewed and edited as necessary to support clinical decision making for today's visit and to reflect my own independent evaluation of this patient. [facility]Bl[facility]25 NoteHNO ID: [id number] Author: AZRA BRUCE LPN Service: ? Author Type: LICENSED NURSE Type: Progress Notes Filed: 02/18/2025 14:03 Note Text: Patient here for injection of Aranesp. Given SQ in right arm. Patient tolerated well. [facility] History of Present illness Narrative* Azra rBuce LPN - 02/18/2025 1:57 PM EDT Patient here for injection of Aranesp. Given SQ in right arm. Patient tolerated well. Azra Bruce LPN documented in this encounterBluffton Hospital07-09-2025 Telephone encounter Note * Telephone Encounter - Oliva Luis RN - 02/12/2025 11:44 AM EDT Patient's aide calls and states that patient needs refills on Tamsulosin. Records show that there should be refills on medication. Advised Aide of this. Called and spoke with [place]. Patient does have refill on this prescription. Oliva Luis RN [facility]07-09-2025 Miscellaneous Notes* Telephone Encounter - Oliva Luis RN - 02/12/2025 11:44 AM EDT Patient's aide calls and states that patient needs refills on Tamsulosin. Records show that there should be refills on medication. Advised Aide of this. Called and spoke with [place]. Patient does have refill on this prescription. Oliva Luis RN documented in this encounterBluffton Hospital07-08-2025 NoteHNO ID: [id number] Author: AZRA BRUCE LPN Service: ? Author Type: LICENSED NURSE Type: Progress Notes Filed: 02/11/2025 16:52 Note Text: Hgb 10.6, treatment parameter not met. Aranesp injection deferred. [facility] History of Present illness Narrative* Azra Bruce LPN - 02/11/2025 1:56 PM EDT Hgb 10.6, treatment parameter not met. Aranesp injection deferred. Azra Bruce LPN documented in this encounterBluffton Hospital07-06-2025 Instructions* Patient Instructions* Rc Shrestha MD - 02/09/2025 1:32 PM EDT We discussed your chronic kidney disease (CKD) and preparation for dialysis: - You are nearing dialysis, and we discussed the need to create a dialysis access. Since you are left-handed, we will focus on your right arm for the procedure. - Two options for creating the access were discussed: - A fistula in the lower arm, which typically requires one surgery. - A fistula in the upper arm, which typically requires two surgeries (the first to connect the veinand the second to bring it to the surface for use). - During surgery, we will use ultrasound to confirm the best vein to use. If the lower arm vein is not suitable, we will proceed with the upper arm option for a more durable access. - The Mio's test showed you have a complete arch in your hand, making the right arm a good optionfor the fistula. We discussed the next steps for surgery: - You will need to complete pre-anesthesia testing (PAT) to ensure you are cleared for surgery. This will include reviewing your blood work and medications. - Continue taking your current medications, including aspirin, Plavix, and atorvastatin, as these are safe to use before surgery. - Your blood counts will be reviewed as part of the pre-surgery process to ensure they are stable. We discussed the post-surgery process: - After the surgery, you will return for a follow-up appointment in 5-6 weeks to assess the fistula's progress. - If the fistula is not maturing properly or if there are any issues (e.g., branches or size concerns), additional procedures may be needed. These could include a minimally invasive fistulogram or a second surgery. - It may take a few months for the fistula to mature and become usable for dialysis. We discussed your medical history and current symptoms: - You reported no chest pain, shortness of breath, or cramping in your calves. - You have residual weakness in your left leg from your prior stroke but no weakness in your arms. - Your carotid duplex from May 08, 2023, showed less than 50% stenosis in the bilateral internalcarotid arteries with normal vertebral flow. Next steps: - Pre-anesthesia testing will be scheduled to clear you for surgery. - Surgery for the right arm fistula will be scheduled after clearance. - Continue monitoring your symptoms and let us know if you experience any new or worsening issues, such as chest pain, shortness of breath, or significant changes in your health. Please contact our office if you have any questions or concerns before your next appointment. documented in this encounterBluffton Hospital07-01-2025 NoteHNO ID: [id number] Author: AZRA BRUCE LPN Service: ? Author Type: LICENSED NURSE Type: Progress Notes Filed: 02/05/2025 08:46 Note Text: Treatment parameter not met, hgb 11.0. Injection deferred. Azra Bruce LPN [facility]07-01-2025 History of Present illness Narrative* Azra Bruce LPN - 02/04/2025 2:51 PM EDT Treatment parameter not met, hgb 11.0. Injection deferred. Azra Bruce LPN documented in this encounterBluffton Hospital06-25-2025 Telephone encounter Note * Telephone Encounter - Jane Aparicio - 01/29/2025 8:54 AM EDT Sister Renetta called to cancel surgery with Dr. Shrestha on 01/30/25, she said another family memberis in the hospital and they wanted to wait. She did not want to reschedule until he has his pacemaker checked at [facility], she will call when ready to reschedule. Encounter closed [facility] Work Phone: [phone]) 167-547406-25-2025 Miscellaneous Notes* Telephone Encounter - Jane Aparicio - 01/29/2025 8:54 AM EDT Sister Renetta called to cancel surgery with Dr. Shrestha on 01/30/25, she said another family memberis in the hospital and they wanted to wait. She did not want to reschedule until he has his pacemaker checked at [facility], she will call when ready to reschedule. Encounter closed documented in this encounterBluffton Hospital06-23-2025 Telephone encounter Note * Telephone Encounter - Va Marinelli APRN.HELIARC WELDER - 01/27/2025 10:49 AM EDT Sorry didn't see that. Thank you [facility]06-23-[facility]25 Miscellaneous Notes* Telephone Encounter - Va Marinelli APRN.CNP - 01/27/2025 10:49 AM EDT [place] didn't see that. Thank you * Telephone Encounter - Alma Mooney RN - 01/27/2025 10:24 AM EDT Per appts--pt has a device check scheduled on 01/29/[address] [facility] at 2:15 pm Alma Mooney RN * Telephone Encounter - Va Marinelli APRN.CNP - 01/27/2025 10:10 AM EDT I gave pt phone number during his OV to schedule his pacemaker check and this has yet to be done. Please call and assist with scheduling this. DOS 01/30/25. documented in this encounterBluffton Hospital06-23-2025 Telephone encounter Note * Telephone Encounter - Alma Mooney RN - 01/27/2025 10:24 AM EDT Per appts--pt has a device check scheduled on 01/29/[address] [facility] at 2:15 pm Alma Mooney RN [facility]06-[facility] Telephone encounter Note* Telephone Encounter - Va Marinelli APRN.CNP - 01/27/2025 10:10 AM EDT I gave pt phone number during his OV to schedule his pacemaker check and this has yet to be done. Please call and assist with scheduling this. DOS 01/30/25. [facility] History and physical note* Va Marinelli APRN.CNP - 01/23/2025 3:25 PM EDT Images from the original note were not included. [facility] HISTORY AND PHYSICAL EXAMINATION SERVICE DATE: 01/23/2025 SERVICE TIME: 10:47 AM PRIMARY CARE PHYSICIAN: Vera Manrique MD Assessment Patient has the following medical conditions which may affect joann-operative course: Essential hypertension, benign Assessment: controlled on rx Last 14 BP Last 14 Encounter BP Readings: Date: BP: 01/23/2025 156/62 01/21/2025 147/82 01/10/2025 134/61 01/02/2025 125/63 12/31/2024 137/70 12/31/2024 123/63 12/24/2024 159/69 12/20/2024 158/64 2024 136/64 12/16/2024 153/63 12/13/2024 151/67 12/11/2024 120/62 10/28/2024 157/74 10/09/2024 124/64 PSVT (paroxysmal supraventricular tachycardia) (HCC) Assessment: controlled on rx, following cardiology, last OV below: External Document(s) - Consultation - Cardiology (06/12/2024) Pure Hypercholesterolemia Assessment: c/w statin Right thalamic infarction (HCC) Assessment: with left sided weakness, uses cane/walker to ambulate, daily Plavix and ASA. Pre-op instructions received. Diabetic polyneuropathy associated with type 2 diabetes mellitus (HCC) Assessment: IDDM Hemoglobin A1C (%) Date Value 09/24/2024 5.3 04/26/2021 6.7 Hemoglobin A1C (POCT) (%) Date Value 02/27/2023 5.8 Functional dyspepsia Assessment: controlled on rx ICD (implantable cardioverter-defibrillator) in place Assessment: 2/2 SSS/Jamie, implanted 02/2019, pt has not had an interrogation since 2021. Number given to schedule previously and again during OV. Informed pt this is needed to proceed with upcoming surgery, pt verbalized understanding. Anemia associated with stage 5 chronic renal failure (HCC) Assessment: receiving PAULA therapy, as needed, following hematology Visit ([facility]) Office on 01/21/2025 Hemoglobin (g/dL) Date Value 01/21/2025 10.6 04/26/2021 9.4 Hematocrit (%) Date Value 01/21/2025 33.0 04/26/2021 28.6 WBC (k/uL) Date Value 01/21/2025 5.63 04/26/2021 8.25 Coronary artery disease involving [place] coronary artery of [place] heart without angina pectoris Assessment: non-obstructing, following cardiology, denies CP, palpitations, sob, new or worsening cardiac symptoms TIA (transient ischemic attack) Assessment: hx Physical deconditioning Assessment: ambulates with cane/walker, left hemiplegia Schatzki's ring Assessment: mild, s/p dilation Hiatal hernia Assessment: medium, per last EGD Incontinence, feces Assessment: wears depends History of embolism Assessment: hx, provoked, tx'd with AC ESRD (end stage renal disease) ([facility]) Assessment: Creatinine Date Value Ref Range Status 12/04/2024 4.56 (H) 0.73 - 1.22 mg/dL Final 11/20/2024 4.16 (H) 0.73 - 1.22 mg/dL Final 10/21/2024 4.71 (H) 0.73 - 1.22 mg/dL Final 09/24/2024 4.39 (H) 0.73 - 1.22 mg/dL Final ANESTHESIA FINDINGS: Intubation History: No history of difficult intubation Significant Anesthesia Considerations: none Airway History: No history of difficult airway Flores Activity Status Index: METS: Walk indoors, such as around the house (1.75 METs) Do light work around the house, such as dusting or washing dishes (2.70 METs) Take care of self; that is eating, dressing, bathing, using the toilet (2.75 METs) Walk a block or two on level ground (2.75 METs) DASI Score: 9.95 (With walker/cane) Patient denies any chest pain or undue shortness of breath with the above physical activity. Patient is partially dependent. Clinical Frailty Scale: 4. Apparently vulnerable STOP-Bang Score: Has or is being treated for high blood pressure Patient over 50 years old Male patient Denies snoring loudly Denies feeling tired, fatigued, or sleepy during the daytime Has not been observed to stop breathing or choking/gasping during sleep BMI less than or equal to 35 kg/m^2 Does not have a large neck STOP-Bang Score: 3 [id number] Score: Hypertension history: Yes Stroke/TIA/thromboembolism history: Yes Vascular disease history: Yes Diabetes history: Yes [id number] Score: ARISCAT Score: Age: 51-80 Preoperative SpO2: >=96% Respiratory infection in the last month: No Preoperative anemia: No Surgical incision: peripheral Duration of surgery: >3 hrs Emergency procedure: No ARISCAT Score: 26 I - PHYSICAL EVALUATION AIRWAY Patient intubated: No. Tracheostomy tube not present Mallampati: III. TM distance: >3 FB. Neck ROM: full ROM without neurological symptoms. Mouth opening: adequate. Short neck: no. Thick neck: no Daily present: yes Lip Bite Test: I Microretrognathia/Micronagthia/Recessed Chin: No DENTAL Dental findings: teeth intact. II - ANESTHESIA PLAN Anesthetic Plan: other Beta Yue Monitoring Plan Post Procedure Analgesic Plan Prepared for Surgery: optimally prepared for surgery, pending [see comment]. ICD interrogation needed, phone number given, see TE CONSULTS: Patient does not require consults for optimization at this time Planned Anesthetic: other anesthesia choice The Following Tests/Procedures Have Been Initiated: No orders of the defined types were placed in this encounter. REASON FOR VISIT: Lou Julien is a 69 year old male who is scheduled for Procedure(s): CREATION FISTULA ARTERIOVENOUS EXTREMITY UPPER (Right) at the request of Dr. Rc Shrestha for consultation. My final recommendation will be communicated back to the requesting physician by way of shared medical record or letter. Subjective The patient has the following: COVID-19 Immunization Status Upcoming Covid-19 Vaccine () Postponed until 09/24/2025 09/24/2024 Postponed until 09/24/2025 by Brenda Talavera MA (Declined at this time) 02/07/2024 Postponed until 02/06/2025 by Taco Tatum APRN.HELIARC WELDER (Declined at this time) 11/16/2022 Postponed until 11/17/2023 by Taco Tatum APRN.CNP (Declined at this time) Only the first 3 history entries have been loaded, but more history exists. CHIEF COMPLAINT: Pre-op exam HPI: Lou Julien is a 69 year old seen for PAC due to scheduled above surgery because ESRD. 01/02/25, Janice Hodges APRN.ELROY ASSESSMENT: Pt is an 69 year old male being seen today in [facility] for CKD with proteinuria likely in thesetting of diabetic nephropathy. PMH: DM, HTN, CVA, complete heart block, carotid stenosis, metabolic acidosis, iron deficient anemia and hyperlipidemia CKD Stage 5 with proteinuria likely in the setting of diabetic nephropathy Creatinine 4.56 on 12/04/2024 Above baseline Cystatin C completed in November 2024 was 3.31 and GFR 15, compared to renal panel same day of 4.56 and GFR 13 -Baseline serum creatinine 2.8- 3.1 mg/dL but trending up and now 3.1- 3.8mg/dL- he is nearing dialysis Urine protein creatinine ratio 1.08 on 12/04/2024 Albumin creatinine ratio 2,431 on 12/13/2023 On ARB Monoclonal gammopathy and compliments negative in November 2023 -does not like needles and doesn't want to have to go for dialysis 3 times per week at a facility. PD would be best option and he would want something done I have concerns that he could do PD at home alone -did have dialysis education and would do in center in [place] -has vein mapping and vascular appt for 6/[address] REVIEW OF SYSTEMS: General: No weight loss, malaise or fevers. Neurological: Positive for: TIA and strokes. Patient's stroke is with residual deficits. 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 Respiratory: No history of current cough or dyspnea, or pneumonia in the past 6 weeks. No history of respiratory/pulmonary symptoms or problems. Cardiovascular: Positive for: AICD/PPM, anticoagulation therapy (Plavix, ASA), arrhythmia, CAD, DVT/PE (LLE, tx with AC), hyperlipidemia, hypertension and PVD Patient's last office visit The following tests and/or procedures were not performed: cardiac stents. Negative for: abdominal aortic aneurysm, angina, atrial fibrillation, chest pain, CHF, recent IA, murmur/valvular heart disease and open heart surgery. GI: No history of GI symptoms or problems. No history of esophageal varices, recent ascites, or ETOH greater than 2 drinks per day. : See HPI. Positive for: BPH (on rx), on dialysis (Pending) and renal failure (on rx). The dialysis type is HD(M,W,F, pending). Patient's renal failure is chronic. Negative for: nephrolithiasis and urinary tract infection. Endocrine: Positive for: diabetes mellitus. Patient's diabetes mellitus is controlled by insulin. Negative for: hypothyroidism. Hematology: Positive for: chronic anti-coagulation/platelet meds. Patient is on anti- coagulation/platelet medication(s): Aspirin and Plavix. Negative for: anemia, bruises/bleeds easily and transfusion of at least 4 units within 72 hours prior to surgery. Oncology: No history of CA metastasis, chemo within 30 days, or radiotherapy within 90 days. No history of oncological symptoms or problems. Psych: No history of psychiatric symptoms or problems. Musculoskeletal: Positive for: back pain. Skin: Negative for lesions, rash and itching. Implanted Devices: Has implanted device Implants: PPM. 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 Dyslipidemia Embolism and thrombosis of unspecified site 04/25/2008 Essential hypertension, benign Family history of malignant neoplasm of gastrointestinal tract Iron malabsorption ([facility]) 12/12/2024 Non-proliferative diabetic retinopathy, mild, both eyes (HCC) 10/11/2017 Non-proliferative diabetic retinopathy, moderate, both eyes ([facility]) 10/14/2019 Other specific developmental learning difficulties Pneumonia 07/07/2015 Dx at [facility] ER Psoriasis and similar disorders Pure hypercholesterolemia Pure hyperglyceridemia Right thalamic infarction (HCC) 02/18/2019 [facility] Stenosis of carotid artery Stroke (HCC) Tietze's disease Tinea unguium 12/01/2017 Type II or unspecified type diabetes mellitus with neurological manifestations, not stated as uncontrolled(250.60) PAST SURGICAL HISTORY Procedure Laterality Date COLONOSCOPY 08/23/2023 Dr. Javier, [facility] COLONOSCOPY FLX DX W/COLLJ SPEC WHEN PFRMD 2017 repeat 3 years COLONOSCOPY SCREENING 06/22/2023 Dr. Javier, [facility] EGD W/O [facility] SPEC VARICIES INJ 06/22/2023 Dr. Javier, [facility] ESOPHAGOGASTRODUODENOSCOPY TRANSORAL DIAGNOSTIC 2017 EGD LAPAROSCOP GASTRIC BYPASS N/A NEUROPLASTY &/TRANSPOS MEDIAN NRV CARPAL TUNNE 05/08/2012 Carpal tunnel decomp right PACEMAKER 03/04/2019 PAST SURGICAL HISTORY OF EGD PAST SURGICAL HISTORY OF Colonsocopy FAMILY HISTORY Problem Relation Age of Onset Stroke Mother Hypertension Mother Colon Cancer Mother Heart Father IA Diabetes Sister No Known Problems Brother No Known Problems Brother No Known Problems Brother Diabetes Maternal Grandmother No Known Problems Maternal Grandfather No Known Problems Paternal Grandmother No Known Problems Paternal Grandfather Social History Tobacco Use Smoking status: Former Types: Cigars Quit date: 1994 Years since quittin.4 Smokeless tobacco: Never Vaping Use Vaping status: Never Used Substance Use Topics Alcohol use: Not Currently Drug use: Never Prior to Admission medications as of 01/23/25 1530 Medication Sig Last Dose Taking Diaper,Brief, Adult,Disposable (DEPEND UNDERWEAR FOR MEN SM-MD) 1 each as needed. Yes Diaper,Brief, Adult,Disposable (UNDERWEAR) Use 3-4 briefs daily as needed. Family states size small. Will need for a full year. And additional incontinence supplies as needed please Yes traZODone (DESYREL) 50 mg tablet Take 1-2 tablets by mouth daily at bedtime. Yes Senna 8.6 mg tab Take 1 tablet by mouth three times a day as needed. Yes sodium bicarbonate 650 mg tablet TAKE 1 TABLET BY MOUTH TWICE A DAY Yes losartan (COZAAR) 25 mg tablet TAKE 1 TABLET BY MOUTH DAILY Yes amLODIPine (NORVASC) 10 mg tablet Take 1 tablet by mouth once daily. Yes tamsulosin (FLOMAX) 0.4 mg Take 1 capsule by mouth daily at bedtime. Yes atorvastatin (LIPITOR) 80 mg tablet Take 1 tablet by mouth every morning. Yes metoprolol succinate ER (TOPROL XL) 100 mg Take 1 tablet by mouth every morning. Yes alcohol swabs (ALCOHOL PREP PADS) Apply 1 application to affected area TID with insulin injection Yes aspirin, enteric coated (ADULT LOW DOSE ASPIRIN) 81 mg EC tablet Take 1 tablet by mouth every morning. Yes hydrALAZINE (APRESOLINE) 50 mg tablet Take 1 tablet by mouth every 8 hours. Yes DAILY-YOUSUF, WITH FOLIC ACID, 400 mcg Take 1 tablet by mouth once daily. Yes clopidogrel (PLAVIX) 75 mg tablet Take 1 tablet by mouth once daily. Yes insulin glargine (LANTUS SOLOSTAR U-100 INSULIN) 100 unit/mL (3 mL) Inject 20 Units subcutaneously every morning. Yes blood sugar diagnostic (BLOOD GLUCOSE TEST) test strip Test blood sugar(s) three times daily. Dx: Type 2 DM - Uncontrolled E11.65 Insulin: Yes Yes insulin lispro (HUMALOG KWIKPEN INSULIN) 100 unit/mL Inject 2 Units subcutaneously three times a day before meals. Yes Insulin [place], Disposable, (BD ULTRA-FINE LUIS PEN NEEDLE) 32 gauge x 5/32 Use one needle daily for each insulin dose, 4 x's daily. Type 2 DM, insulin dependent. Yes Lancets lancets Test blood sugar(s) one times daily. Dx: Type 2 DM - Uncontrolled E11.65 Insulin: Yes Yes MEDICAL SUPPLY Hospital bed with rails. Yes Blood-Glucose Meter 1 Device as directed. Yes melatonin 3 mg tablet Take 1 tablet by mouth daily at bedtime. Yes glucose (DEX4 GLUCOSE) 4 gram chewable tablet Take 4 tablets by mouth as needed. Yes Lancing Device (LANCING DEVICE WITH LANCETS) [facility] [place] Use to check blood sugars as directed Yes COMPOUNDED PRESCRIPTION Diabetic shoes: DIABETES MELLITUS- uncontrolled with neuropathy Yes Syringe with Needle, Safety (BD INTEGRA) 3 mL 22 x 1 1/2 syrg Uses twice a month for testosterone injections Yes No medication comments found. ALLERGIES Allergen Reactions Lopid [Gemfibrozil] Diarrhea Metformin Diarrhea Objective PHYSICAL EXAM: General: alert and oriented (x3) and healthy appearance. Pertinent negatives noted - not distressed. Skin: normal color, no rash or lesions. HEENT: EOM intact and pupils equal round. Pertinent negatives noted - no carotid bruit. Cardiovascular: regular rate and rhythm, normal S1 and S2, no rub, murmurs, or gallop. Respiratory: normal breath sounds, no wheezes or crackles. No chest wall deformity or tenderness. Abdomen: soft. Pertinent negatives noted - not tender. Extremities: no deformity, no edema or tenderness, no joint swelling or clubbing. Neurological: normal cognition and motor skills. Positive for abnormal gait. PAIN ASSESSMENT: VITALS: BP 156/62 Pulse 71 Temp (Src) 98.1 (Temporal) Resp 12 Ht 5' 9 (1.75m) Wt 152 lb 3.2 oz (69.0kg) SpO2 96% BMI 22.47 kg/(m^2). Diagnostic tests reviewed for today's visit: Lab Value Units Date High Low HB 10.6 g/dL 01/21/2025 17.0 13.0 HCT 33.0 % 01/21/2025 51.0 39.0 WBC 5.63 k/uL 01/21/2025 11.00 3.70 PLT 183 k/uL 01/21/2025 400 150 NA 137 mmol/L 12/04/2024 144 136 K 4.8 mmol/L 12/04/2024 5.1 3.7 GLUC 134 mg/dL 12/04/2024 99 74 BUN 68 mg/dL 12/04/2024 24 9 CREAT 4.56 mg/dL 12/04/2024 1.22 0.73 PTSEC No results within date range. INR No results within date range. APTT No results within date range. ALT 14 U/L 09/24/2024 54 10 AST 11 U/L 09/24/2024 40 14 TBILI 0.2 mg/dL 09/24/2024 1.3 0.2 TSH No results within date range. Lab Value Units Date High Low HCGQT No results within date range. UHCG No results within date range. HCG, BODY* No results within date range. Lab Value Units Date High Low ABORHD No results within date range. ABSCREEN No results within date range. Hemoglobin A1C (%) Date Value 09/24/2024 5.3 04/30/2024 5.8 02/07/2024 5.8 03/14/2022 9.3 11/30/2021 7.7 04/26/2021 6.7 04/26/2021 6.6 02/13/2020 8.4 08/28/2019 9.7 08/22/2019 10.3 Hemoglobin A1C (POCT) (%) Date Value 02/27/2023 5.8 11/16/2022 7.7 05/17/2022 7.0 No results found for this or any previous visit (from the past 8760 hours). Recent Results (from the past 17937 hours) ECHO Collection Time: 01/31/23 1:55 PM Impression CONCLUSIONS: - Exam indication: Shortness of Breath - The left ventricle is moderately dilated. There is mild concentric left ventricular hypertrophy. Left ventricular systolic function is normal. EF = 56 5% (2D biplane) Grade I left ventricular diastolic dysfunction. - The right ventricle is normal in size. Right ventricular systolic function is normal. - The left atrial cavity is mildly dilated. - The visualized aorta is borderline dilated with a maximal dimension of 4.0 cm. - There is mild tricuspid insufficiency present. - There is mild aortic insufficiency present. - Exam was compared with the prior echocardiographic exam performed on 12/05/2002 (Stress). There has been no significant change in left ventricular systolic function. * * * Final * * * Instructions Given to Patient: Instructions located in the after visit summary. Patient given verbal and written preop instructions and voices comprehension and compliance. SIGNATURE: Va Marinelli APRN.CNP PATIENT NAME: Lou Julien DATE: January 23, 2025 TIME: 3:25 PM PAGER/CONTACT #: [id number] History and physical note* Va Marinelli APRN.CNP - 01/23/2025 3:25 PM EDT Images from the original note were not included. [facility] HISTORY AND PHYSICAL EXAMINATION SERVICE DATE: 01/23/2025 SERVICE TIME: 10:47 AM PRIMARY CARE PHYSICIAN: Vera Manrique MD Assessment Patient has the following medical conditions which may affect joann-operative course: Essential hypertension, benign Assessment: controlled on rx Last 14 BP Last 14 Encounter BP Readings: Date: BP: 01/23/2025 156/62 01/21/2025 147/82 01/10/2025 134/61 01/02/2025 125/63 12/31/2024 137/70 12/31/2024 123/63 12/24/2024 159/69 12/20/2024 158/64 2024 136/64 12/16/2024 153/63 12/13/2024 151/67 12/11/2024 120/62 10/28/2024 157/74 10/09/2024 124/64 PSVT (paroxysmal supraventricular tachycardia) (HCC) Assessment: controlled on rx, following cardiology, last OV below: External Document(s) - Consultation - Cardiology (06/12/2024) Pure Hypercholesterolemia Assessment: c/w statin Right thalamic infarction (HCC) Assessment: with left sided weakness, uses cane/walker to ambulate, daily Plavix and ASA. Pre-op instructions received. Diabetic polyneuropathy associated with type 2 diabetes mellitus (HCC) Assessment: IDDM Hemoglobin A1C (%) Date Value 09/24/2024 5.3 04/26/2021 6.7 Hemoglobin A1C (POCT) (%) Date Value 02/27/2023 5.8 Functional dyspepsia Assessment: controlled on rx ICD (implantable cardioverter-defibrillator) in place Assessment: 2/2 SSS/Jamie, implanted 02/2019, pt has not had an interrogation since 2021. Number given to schedule previously and again during OV. Informed pt this is needed to proceed with upcoming surgery, pt verbalized understanding. Anemia associated with stage 5 chronic renal failure (HCC) Assessment: receiving PAULA therapy, as needed, following hematology Visit (SP) Office on 01/21/2025 Hemoglobin (g/dL) Date Value 01/21/2025 10.6 04/26/2021 9.4 Hematocrit (%) Date Value 01/21/2025 33.0 04/26/2021 28.6 WBC (k/uL) Date Value 01/21/2025 5.63 04/26/2021 8.25 Coronary artery disease involving [place] coronary artery of [place] heart without angina pectoris Assessment: non-obstructing, following cardiology, denies CP, palpitations, sob, new or worsening cardiac symptoms TIA (transient ischemic attack) Assessment: hx Physical deconditioning Assessment: ambulates with cane/walker, left hemiplegia Schatzki's ring Assessment: mild, s/p dilation Hiatal hernia Assessment: medium, per last EGD Incontinence, feces Assessment: wears depends History of embolism Assessment: hx, provoked, tx'd with AC ESRD (end stage renal disease) ([facility]) Assessment: Creatinine Date Value Ref Range Status 12/04/2024 4.56 (H) 0.73 - 1.22 mg/dL Final 11/20/2024 4.16 (H) 0.73 - 1.22 mg/dL Final 10/21/2024 4.71 (H) 0.73 - 1.22 mg/dL Final 09/24/2024 4.39 (H) 0.73 - 1.22 mg/dL Final ANESTHESIA FINDINGS: Intubation History: No history of difficult intubation Significant Anesthesia Considerations: none Airway History: No history of difficult airway Flores Activity Status Index: METS: Walk indoors, such as around the house (1.75 METs) Do light work around the house, such as dusting or washing dishes (2.70 METs) Take care of self; that is eating, dressing, bathing, using the toilet (2.75 METs) Walk a block or two on level ground (2.75 METs) DASI Score: 9.95 (With walker/cane) Patient denies any chest pain or undue shortness of breath with the above physical activity. Patient is partially dependent. Clinical Frailty Scale: 4. Apparently vulnerable STOP-Bang Score: Has or is being treated for high blood pressure Patient over 50 years old Male patient Denies snoring loudly Denies feeling tired, fatigued, or sleepy during the daytime Has not been observed to stop breathing or choking/gasping during sleep BMI less than or equal to 35 kg/m^2 Does not have a large neck STOP-Bang Score: 3 [id number] Score: Hypertension history: Yes Stroke/TIA/thromboembolism history: Yes Vascular disease history: Yes Diabetes history: Yes [id number] Score: ARISCAT Score: Age: 51-80 Preoperative SpO2: >=96% Respiratory infection in the last month: No Preoperative anemia: No Surgical incision: peripheral Duration of surgery: >3 hrs Emergency procedure: No ARISCAT Score: 26 I - PHYSICAL EVALUATION AIRWAY Patient intubated: No. Tracheostomy tube not present Mallampati: III. TM distance: >3 FB. Neck ROM: full ROM without neurological symptoms. Mouth opening: adequate. Short neck: no. Thick neck: no Daily present: yes Lip Bite Test: I Microretrognathia/Micronagthia/Recessed Chin: No DENTAL Dental findings: teeth intact. II - ANESTHESIA PLAN Anesthetic Plan: other Beta Yue Monitoring Plan Post Procedure Analgesic Plan Prepared for Surgery: optimally prepared for surgery, pending [see comment]. ICD interrogation needed, phone number given, see TE CONSULTS: Patient does not require consults for optimization at this time Planned Anesthetic: other anesthesia choice The Following Tests/Procedures Have Been Initiated: No orders of the defined types were placed in this encounter. REASON FOR VISIT: Lou Julien is a 69 year old male who is scheduled for Procedure(s): CREATION FISTULA ARTERIOVENOUS EXTREMITY UPPER (Right) at the request of Dr. Rc Shrestha for consultation. My final recommendation will be communicated back to the requesting physician by way of shared medical record or letter. Subjective The patient has the following: COVID-19 Immunization Status Upcoming Covid-19 Vaccine () Postponed until 09/24/2025 09/24/2024 Postponed until 09/24/2025 by Brenda Talavera MA (Declined at this time) 02/07/2024 Postponed until 02/06/2025 by Taco Tatum APRN.CNP (Declined at this time) 11/16/2022 Postponed until 11/17/2023 by Taco Tatum APRN.CNP (Declined at this time) Only the first 3 history entries have been loaded, but more history exists. CHIEF COMPLAINT: Pre-op exam HPI: Lou Julien is a 69 year old seen for PAC due to scheduled above surgery because ESRD. 01/02/25, Janice Hodges APRN.HELIARC WELDER ASSESSMENT: Pt is an 69 year old male being seen today in [facility] for CKD with proteinuria likely in thesetting of diabetic nephropathy. PMH: DM, HTN, CVA, complete heart block, carotid stenosis, metabolic acidosis, iron deficient anemia and hyperlipidemia CKD Stage 5 with proteinuria likely in the setting of diabetic nephropathy Creatinine 4.56 on 12/04/2024 Above baseline Cystatin C completed in November 2024 was 3.31 and GFR 15, compared to renal panel same day of 4.56 and GFR 13 -Baseline serum creatinine 2.8- 3.1 mg/dL but trending up and now 3.1- 3.8mg/dL- he is nearing dialysis Urine protein creatinine ratio 1.08 on 12/04/2024 Albumin creatinine ratio 2,431 on 12/13/2023 On ARB Monoclonal gammopathy and compliments negative in November 2023 -does not like needles and doesn't want to have to go for dialysis 3 times per week at a facility. PD would be best option and he would want something done I have concerns that he could do PD at home alone -did have dialysis education and would do in center in [place] -has vein mapping and vascular appt for 6/[address] REVIEW OF SYSTEMS: General: No weight loss, malaise or fevers. Neurological: Positive for: TIA and strokes. Patient's stroke is with residual deficits. 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 Respiratory: No history of current cough or dyspnea, or pneumonia in the past 6 weeks. No history of respiratory/pulmonary symptoms or problems. Cardiovascular: Positive for: AICD/PPM, anticoagulation therapy (Plavix, ASA), arrhythmia, CAD, DVT/PE (LLE, tx with AC), hyperlipidemia, hypertension and PVD Patient's last office visit The following tests and/or procedures were not performed: cardiac stents. Negative for: abdominal aortic aneurysm, angina, atrial fibrillation, chest pain, CHF, recent IA, murmur/valvular heart disease and open heart surgery. GI: No history of GI symptoms or problems. No history of esophageal varices, recent ascites, or ETOH greater than 2 drinks per day. : See HPI. Positive for: BPH (on rx), on dialysis (Pending) and renal failure (on rx). The dialysis type is HD(M,W,F, pending). Patient's renal failure is chronic. Negative for: nephrolithiasis and urinary tract infection. Endocrine: Positive for: diabetes mellitus. Patient's diabetes mellitus is controlled by insulin. Negative for: hypothyroidism. Hematology: Positive for: chronic anti-coagulation/platelet meds. Patient is on anti- coagulation/platelet medication(s): Aspirin and Plavix. Negative for: anemia, bruises/bleeds easily and transfusion of at least 4 units within 72 hours prior to surgery. Oncology: No history of CA metastasis, chemo within 30 days, or radiotherapy within 90 days. No history of oncological symptoms or problems. Psych: No history of psychiatric symptoms or problems. Musculoskeletal: Positive for: back pain. Skin: Negative for lesions, rash and itching. Implanted Devices: Has implanted device Implants: PPM. 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 Dyslipidemia Embolism and thrombosis of unspecified site 04/25/2008 Essential hypertension, benign Family history of malignant neoplasm of gastrointestinal tract Iron malabsorption (HCC) 12/12/2024 Non-proliferative diabetic retinopathy, mild, both eyes (HCC) 10/11/2017 Non-proliferative diabetic retinopathy, moderate, both eyes (HCC) 10/14/2019 Other specific developmental learning difficulties Pneumonia 07/07/2015 Dx at [facility] ER Psoriasis and similar disorders Pure hypercholesterolemia Pure hyperglyceridemia Right thalamic infarction (HCC) 02/18/2019 [facility] Stenosis of carotid artery Stroke ([facility]) Tietze's disease Tinea unguium 12/01/2017 Type II or unspecified type diabetes mellitus with neurological manifestations, not stated as uncontrolled(250.60) PAST SURGICAL HISTORY Procedure Laterality Date COLONOSCOPY 08/23/2023 Dr. Javier, [facility] COLONOSCOPY FLX DX W/COLLJ SPEC WHEN PFRMD 2017 repeat 3 years COLONOSCOPY SCREENING 06/22/2023 Dr. Javier, [facility] EGD W/O [facility] SPEC VARICIES INJ 06/22/2023 Dr. Javier, [facility] ESOPHAGOGASTRODUODENOSCOPY TRANSORAL DIAGNOSTIC 2017 EGD LAPAROSCOP GASTRIC BYPASS N/A NEUROPLASTY &/TRANSPOS MEDIAN NRV CARPAL TUNNE 05/08/2012 Carpal tunnel decomp right PACEMAKER 03/04/2019 PAST SURGICAL HISTORY OF EGD PAST SURGICAL HISTORY OF Colonsocopy FAMILY HISTORY Problem Relation Age of Onset Stroke Mother Hypertension Mother Colon Cancer Mother Heart Father IA Diabetes Sister No Known Problems Brother No Known Problems Brother No Known Problems Brother Diabetes Maternal Grandmother No Known Problems Maternal Grandfather No Known Problems Paternal Grandmother No Known Problems Paternal Grandfather Social History Tobacco Use Smoking status: Former Types: Cigars Quit date: 1994 Years since quittin.4 Smokeless tobacco: Never Vaping Use Vaping status: Never Used Substance Use Topics Alcohol use: Not Currently Drug use: Never Prior to Admission medications as of 01/23/25 1530 Medication Sig Last Dose Taking Diaper,Brief, Adult,Disposable (DEPEND UNDERWEAR FOR MEN VERONIQUE) 1 each as needed. Yes Diaper,Brief, Adult,Disposable (UNDERWEAR) Use 3-4 briefs daily as needed. Family states size small. Will need for a full year. And additional incontinence supplies as needed please Yes traZODone (DESYREL) 50 mg tablet Take 1-2 tablets by mouth daily at bedtime. Yes Senna 8.6 mg tab Take 1 tablet by mouth three times a day as needed. Yes sodium bicarbonate 650 mg tablet TAKE 1 TABLET BY MOUTH TWICE A DAY Yes losartan (COZAAR) 25 mg tablet TAKE 1 TABLET BY MOUTH DAILY Yes amLODIPine (NORVASC) 10 mg tablet Take 1 tablet by mouth once daily. Yes tamsulosin (FLOMAX) 0.4 mg Take 1 capsule by mouth daily at bedtime. Yes atorvastatin (LIPITOR) 80 mg tablet Take 1 tablet by mouth every morning. Yes metoprolol succinate ER (TOPROL XL) 100 mg Take 1 tablet by mouth every morning. Yes alcohol swabs (ALCOHOL PREP PADS) Apply 1 application to affected area TID with insulin injection Yes aspirin, enteric coated (ADULT LOW DOSE ASPIRIN) 81 mg EC tablet Take 1 tablet by mouth every morning. Yes hydrALAZINE (APRESOLINE) 50 mg tablet Take 1 tablet by mouth every 8 hours. Yes DAILY-YOUSUF, WITH FOLIC ACID, 400 mcg Take 1 tablet by mouth once daily. Yes clopidogrel (PLAVIX) 75 mg tablet Take 1 tablet by mouth once daily. Yes insulin glargine (LANTUS SOLOSTAR U-100 INSULIN) 100 unit/mL (3 mL) Inject 20 Units subcutaneously every morning. Yes blood sugar diagnostic (BLOOD GLUCOSE TEST) test strip Test blood sugar(s) three times daily. Dx: Type 2 DM - Uncontrolled E11.65 Insulin: Yes Yes insulin lispro (HUMALOG KWIKPEN INSULIN) 100 unit/mL Inject 2 Units subcutaneously three times a day before meals. Yes Insulin [place], Disposable, (BD ULTRA-FINE LUIS PEN NEEDLE) 32 gauge x 5/32 Use one needle daily for each insulin dose, 4 x's daily. Type 2 DM, insulin dependent. Yes Lancets lancets Test blood sugar(s) one times daily. Dx: Type 2 DM - Uncontrolled E1165 Insulin: Yes Yes MEDICAL SUPPLY Hospital bed with rails. Yes Blood-Glucose Meter 1 Device as directed. Yes melatonin 3 mg tablet Take 1 tablet by mouth daily at bedtime. Yes glucose (DEX4 GLUCOSE) 4 gram chewable tablet Take 4 tablets by mouth as needed. Yes Lancing Device (LANCING DEVICE WITH LANCETS) [facility] Use to check blood sugars as directed Yes COMPOUNDED PRESCRIPTION Diabetic shoes: DIABETES MELLITUS- uncontrolled with neuropathy Yes Syringe with Needle, Safety (BD INTEGRA) 3 mL 22 x 1 1/2 syrg Uses twice a month for testosterone injections Yes No medication comments found. ALLERGIES Allergen Reactions Lopid [Gemfibrozil] Diarrhea Metformin Diarrhea Objective PHYSICAL EXAM: General: alert and oriented (x3) and healthy appearance. Pertinent negatives noted - not distressed. Skin: normal color, no rash or lesions. HEENT: EOM intact and pupils equal round. Pertinent negatives noted - no carotid bruit. Cardiovascular: regular rate and rhythm, normal S1 and S2, no rub, murmurs, or gallop. Respiratory: normal breath sounds, no wheezes or crackles. No chest wall deformity or tenderness. Abdomen: soft. Pertinent negatives noted - not tender. Extremities: no deformity, no edema or tenderness, no joint swelling or clubbing. Neurological: normal cognition and motor skills. Positive for abnormal gait. PAIN ASSESSMENT: VITALS: BP 156/62 Pulse 71 Temp (Src) 98.1 (Temporal) Resp 12 Ht 5' 9 (1.75m) Wt 152 lb 3.2 oz (69.0kg) SpO2 96% BMI 22.47 kg/(m^2). Diagnostic tests reviewed for today's visit: Lab Value Units Date High Low HB 10.6 g/dL 01/21/2025 17.0 13.0 HCT 33.0 % 01/21/2025 51.0 39.0 WBC 5.63 k/uL 01/21/2025 11.00 3.70 PLT 183 k/uL 01/21/2025 400 150 NA 137 mmol/L 12/04/2024 144 136 K 4.8 mmol/L 12/04/2024 5.1 3.7 GLUC 134 mg/dL 12/04/2024 99 74 BUN 68 mg/dL 12/04/2024 24 9 CREAT 4.56 mg/dL 12/04/2024 1.22 0.73 PTSEC No results within date range. INR No results within date range. APTT No results within date range. ALT 14 U/L 09/24/2024 54 10 AST 11 U/L 09/24/2024 40 14 TBILI 0.2 mg/dL 09/24/2024 1.3 0.2 TSH No results within date range. Lab Value Units Date High Low HCGQT No results within date range. UHCG No results within date range. HCG, BODY* No results within date range. Lab Value Units Date High Low ABORHD No results within date range. ABSCREEN No results within date range. Hemoglobin A1C (%) Date Value 09/24/2024 5.3 04/30/2024 5.8 02/07/2024 5.8 03/14/2022 9.3 11/30/2021 7.7 04/26/2021 6.7 04/26/2021 6.6 02/13/2020 8.4 08/28/2019 9.7 08/22/2019 10.3 Hemoglobin A1C (POCT) (%) Date Value 02/27/2023 5.8 11/16/2022 7.7 05/17/2022 7.0 No results found for this or any previous visit (from the past 8760 hours). Recent Results (from the past 24849 hours) ECHO Collection Time: 01/31/23 1:55 PM Impression CONCLUSIONS: - Exam indication: Shortness of Breath - The left ventricle is moderately dilated. There is mild concentric left ventricular hypertrophy. Left ventricular systolic function is normal. EF = 56 5% (2D biplane) Grade I left ventricular diastolic dysfunction. - The right ventricle is normal in size. Right ventricular systolic function is normal. - The left atrial cavity is mildly dilated. - The visualized aorta is borderline dilated with a maximal dimension of 4.0 cm. - There is mild tricuspid insufficiency present. - There is mild aortic insufficiency present. - Exam was compared with the prior echocardiographic exam performed on 12/05/2002 (Stress). There has been no significant change in left ventricular systolic function. * * * Final * * * Instructions Given to Patient: Instructions located in the after visit summary. Patient given verbal and written preop instructions and voices comprehension and compliance. SIGNATURE: Va Marinelli APRN.CNP PATIENT NAME: Lou Julien DATE: January 23, 2025 TIME: 3:25 PM PAGER/CONTACT #: documented in [facility] Instructions* Patient Instructions* Va Marinelli APRN.CNP - 01/23/2025 3:20 PM EDT Images from the original note were not included. [facility] PATIENT PREOPERATIVE INSTRUCTIONS Rc Shrestha MD has scheduled you for your procedure at this surgery center: [facility]: [phone] -- [address] [address]. Please read below carefully for your personalized instructions. Dietary Restrictions: - No solid food after midnight. - You may have 12 ounces of clear liquids (water, clear juices such as apple juice or gatorade, carbonated beverages, clear tea, black coffee, jello) until 2 hours before scheduled arrival at facility. No red/purple coloring and no creamer/sugar Medications: Unless instructed differently below, stay on all of your medications until your surgery. If you start any new medications after today's visit, please contact your surgeon. Pre-Surgery Med Instructions Medication Instructions Diaper,Brief, Adult,Disposable (DEPEND UNDERWEAR FOR MEN SM-MD) Diaper,Brief, Adult,Disposable (UNDERWEAR) traZODone (DESYREL) 50 mg tablet Do not take the day of surgery Senna 8.6 mg tab Continue as needed sodium bicarbonate 650 mg tablet If you normally take this medication in the morning, take the morning of surgery. losartan (COZAAR) 25 mg tablet If you normally take this medication in the morning, take the morning of surgery. amLODIPine (NORVASC) 10 mg tablet If you normally take this medication in the morning, take the morning of surgery. tamsulosin (FLOMAX) 0.4 mg If you normally take this medication in the morning, take the morning ofsurgery. atorvastatin (LIPITOR) 80 mg tablet If you normally take this medication in the morning, take the morning of surgery. metoprolol succinate ER (TOPROL XL) 100 mg If you normally take this medication in the morning, take the morning of surgery. alcohol swabs (ALCOHOL PREP PADS) aspirin, enteric coated (ADULT LOW DOSE ASPIRIN) 81 mg EC tablet Hold 7 days before surgery. Last dose 01/23/25. hydrALAZINE (APRESOLINE) 50 mg tablet If you normally take this medication in the morning, take themorning of surgery. DAILY-YOUSUF, WITH FOLIC ACID, 400 mcg Hold 7 days before surgery. Last dose 01/23/25. clopidogrel (PLAVIX) 75 mg tablet Hold 5 days before surgery. Last dose 01/24/25. insulin glargine (LANTUS SOLOSTAR U-100 INSULIN) 100 unit/mL (3 mL) Insulin: Do not take the morning of surgery. Take 75% of your usual dose the night before surgery if possible. If not possible, take full dose the night before surgery. blood sugar diagnostic (BLOOD GLUCOSE TEST) test strip insuli lispro (HUMALOG KWIKPEN INSULIN) 100 unit/mL Do not take the day of surgery Insulin Kingston, Disposable, (BD ULTRA-FINE LUIS PEN NEEDLE) 32 gauge x 5/32 Lancets lancets MEDICAL SUPPLY Blood-Glucose Meter melatonin 3 mg tablet Hold 7 days before surgery. Last dose 01/23/25. glucose (DEX4 GLUCOSE) 4 gram chewable tablet Do not take the day of surgery Lancing Device (LANCING DEVICE WITH LANCETS) misc COMPOUNDED PRESCRIPTION Syringe with Needle, Safety (BD INTEGRA) 3 mL 22 x 1 1/2 syrg If you take any medications for erectile dysfunction-Cialis (Tadalafil), Levitra, Staxyn (Vardenafil) Viagra (Sildenenafil please do not take these for 48 hours before surgery. If you start any new medications after today's visit, please contact the surgeon's office. If you are currently using a ghti-fwx-lxoy injectable or oral medication for diabetes or weight loss such as Dulaglutide (Trulicity), Exenatide (Byetta, Bydureon), Liraglutide (Victoza, Saxenda), Semaglutide (Ozempic, Wegovy, Rybelsus), or Tirzepatide (Mounjaro), the medicine should be stopped at least 7 days before surgery. These medicines can cause food to remain in your stomach for a very longtime and increase the risks from surgery and anesthesia. Not stopping the medication for a long enough time may result in your surgery being rescheduled. Blood Thinning Medications: - Stop NSAIDS (Ibuprofen, Advil, Aleve, Motrin, Celebrex, Mobic, etc.) 7 days before surgery, as directed by your surgeon. - Stop Aspirin 7 days before surgery, as directed by your surgeon. - Stop Plavix 5 days before surgery or as directed by physician. - Stop ALL herbal and dietary supplements 7 days before surgery. - You may take Tylenol (Acetaminophen) or any of your pain medications that do not contain aspirin or NSAIDS as needed. Important Reminders: If you are on dialysis, please check with your dialysis center or concrete block maker to see if any adjustments need to be made to your schedule for the week of your surgery - Candy, mints, and tobacco products are NOT permitted the morning of surgery. - Hearing aids, dentures and glasses may be worn the morning of surgery. - NO jewelry, body piercings, makeup, hairpins or contacts are to be worn the day of surgery. If you develop symptoms such as a fever, cold, or flu, or have other changes to your health within TWO DAYS of scheduled surgery or the morning of surgery, please contact the surgery center above. Personal Belongings: -Please have photo ID and insurance cards. -If you do not have a copy of advance directives on file with us, please bring a copy with you on the day of surgery. - Leave ALL valuables and money at home or with family members. - Please bring high-quality footwear, such as sneakers, to the hospital for ambulating post-surgery. For Outpatient Procedures: - YOU MUST HAVE A RESPONSIBLE MOLDED GRID AND PARTS INSPECTOR TAKE YOU HOME. A HEAVY MACHINERY ASSEMBLER OR MAILROOM MANAGER CANNOT BE MADE A RESPONSIBLE MOLDED GRID AND PARTS INSPECTOR. - We recommend that a responsible person stays with you overnight to take care of you. - You cannot stay in a hotel alone after outpatient surgery. You will not be permitted to have yoursurgery, if you do not have someone to take care of you. Arrival Time for Surgery: - The Surgery Center or hospital where you are having surgery will call the afternoon before surgery (or Monday for Monday surgery) with a scheduled arrival time. - If you have not heard by 4 pm, please contact the surgery center above. Please be aware that emergency situations arise, which may delay or change your surgical time. If this happens, we will notify you as soon as possible and regret any inconvenience. If you already have an Advance Directive, please fax a copy to [phone] or email to for it to be added to your chart. If you do not have an Advance Directive, you can find the appropriate form and more information at [email or web address]. We recommend that youcomplete the Advance Directive form found on the website and bring it with you the day of your surgery. It can be witnessed and scanned into your chart that day. Va Marinelli APRN.ELROY documented in this encounterBluffton Hospital06-17-2025 NoteHNO ID: [id number] Author: SAYDA MORENO LPN Service: ? Author Type: LICENSED NURSE Type: Progress Notes Filed: 01/21/2025 10:45 Note Text: Injection deferred, parameters not met ,HGB 10.6 [facility] History of Present illness Narrative* Sayda Moreno LPN - 01/21/2025 10:42 AM EDT Injection deferred, parameters not met ,HGB 10.6 Sayda Moreon LPN documented in this encounterBluffton Hospital06-17-2025 [facility] History of Present illness Narrative* Octavio Monsalve - 01/21/2025 10:41 AM EDT Lou Wolf Anaya 1955 01/21/2025 Hematologic problem(s): 1) Anemia due to CKD. HPI: The patient is a 68-year-old male with a past medical history significant for type 2 diabetes with polyneuropathy, paroxysmal SVT, pacemaker-ICD, hypertension, hypercholesterolemia, psoriasis, contact dermatitis, lumbar spondylosis, lumbar degenerative disc disease, low back pain, iron deficiency anemia,? DVT and CKD. Hospitalized at [facility] mid June for abdominal pain. Significant increase in serum Cr over baseline. Received hydration. Hemoglobin 8.2 g/dL on presentation 06/29. Serum creatinine was 3.35 mg/dL. Calcium was 8.4 mg/dL. Serum iron was 50 mcg/dL (reference range 65 to 175 mcg/dL). TIBC 210 mcg/dL. (Reference range 250 to 450 mcg/dL). Ferritin was 128 ng/mL. Total serum protein was 6 g/dL. On EGD was found to have reflux esophagitis with no bleeding. There was a mild Schatzki's ring thatwas dilated. Medium size hiatal hernia. There was hematin (altered blood/tudsce-yukysy-srqh material) in the gastric body. Granular gastric mucosa that was biopsied. Granular mucosa in the duodenal bulb. There were oozing duodenal ulcers with pigmented material. Treated with argon plasma coagulation. On colonoscopy prep was poor. Moderate diverticulosis was observed in the rectosigmoid colon and sigmoid colon. There were five 1 to 2 mm polyps in the sigmoid colon removed using injection lift and hot snare. One 5 mm polyp in the transverse colon. Stool was observed in the rectum, rectosigmoid, sigmoid at the splenic flexure hepatic flexure and ascending colon as well as cecum. Blood transfusion was not administered. Also had CT of the abdomen pelvis on 06/29/2023. He had bilateral punctate nonobstructing renal stones. Cholelithiasis without CT evidence of acute cholecystitis. There is diverticulosis without CT evidence of acute diverticulitis. Normal appendix. Diffuse atherosclerosis. Degenerative changes. Initial consultation: Endorses poor appetite. No reflux or nausea. Bowels have been moving. Stools formed. No black or bloody stools. Left foot drop with brace. Hand numbness bilaterally. He did not follow-up for further workup. Referred back for anemia. Hemoglobin has been stable over the last year. Serum creatinine worse. Presents for ongoing hematologic management. Interim history: Mr. Julien presents today for appointment alone. He reports feeling ok. Denies any new issues. No recent illnesses. Denies dyspnea with ambulation. Getting ready for dialysis. Has fistula placement scheduled for next week. Denies black or bloody stools. 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 Dyslipidemia Embolism and thrombosis of unspecified site 04/25/2008 Essential hypertension, benign Family history of malignant neoplasm of gastrointestinal tract Iron malabsorption (HCC) 12/12/2024 Non-proliferative diabetic retinopathy, mild, both eyes (HCC) 10/11/2017 Non-proliferative diabetic retinopathy, moderate, both eyes (HCC) 10/14/2019 Other specific developmental learning difficulties Pneumonia 07/07/2015 Dx at [facility] ER Psoriasis and similar disorders Pure hypercholesterolemia Pure hyperglyceridemia Right thalamic infarction (HCC) 02/18/2019 [facility] Stenosis of carotid artery Stroke ([facility]) Tietze's disease Tinea unguium 12/01/2017 Type II or unspecified type diabetes mellitus with neurological manifestations, not stated as uncontrolled(250.60) PAST SURGICAL HISTORY Procedure Laterality Date COLONOSCOPY 08/23/2023 Dr. Javier, [facility] COLONOSCOPY FLX DX W/COLLJ SPEC WHEN PFRMD 2017 repeat 3 years COLONOSCOPY SCREENING 06/22/2023 Dr. Javier [facility] EGD W/O [facility] SPEC VARICIES INJ 06/22/2023 Dr. Javier [facility] ESOPHAGOGASTRODUODENOSCOPY TRANSORAL DIAGNOSTIC 2017 EGD LAPAROSCOP GASTRIC BYPASS N/A NEUROPLASTY &/TRANSPOS MEDIAN NRV CARPAL TUNNE 05/08/2012 Carpal tunnel decomp right PACEMAKER 03/04/2019 PAST SURGICAL HISTORY OF EGD PAST SURGICAL HISTORY OF Colonsocopy ALLERGIES Allergen Reactions Lopid [Gemfibrozil] Diarrhea Metformin Diarrhea Current Outpatient Medications Medication Sig Diaper,Brief, Adult,Disposable (DEPEND UNDERWEAR FOR MEN VERONIQUE) 1 each as needed. Diaper,Brief, Adult,Disposable (UNDERWEAR) Use 3-4 briefs daily as needed. Family states size small. Will need for a full year. And additional incontinence supplies as needed please traZODone (DESYREL) 50 mg tablet Take 1-2 tablets by mouth daily at bedtime. Senna 8.6 mg tab Take 1 tablet by mouth three times a day as needed. sodium bicarbonate 650 mg tablet TAKE 1 TABLET BY MOUTH TWICE A DAY losartan (COZAAR) 25 mg tablet TAKE 1 TABLET BY MOUTH DAILY amLODIPine (NORVASC) 10 mg tablet Take 1 tablet by mouth once daily. tamsulosin (FLOMAX) 0.4 mg Take 1 capsule by mouth daily at bedtime. atorvastatin (LIPITOR) 80 mg tablet Take 1 tablet by mouth every morning. metoprolol succinate ER (TOPROL XL) 100 mg Take 1 tablet by mouth every morning. alcohol swabs (ALCOHOL PREP PADS) Apply 1 application to affected area TID with insulin injection aspirin, enteric coated (ADULT LOW DOSE ASPIRIN) 81 mg EC tablet Take 1 tablet by mouth every morning. DAILY-YOUSUF, WITH FOLIC ACID, 400 mcg Take 1 tablet by mouth once daily. clopidogrel (PLAVIX) 75 mg tablet Take 1 tablet by mouth once daily. insulin glargine (LANTUS SOLOSTAR U-100 INSULIN) 100 unit/mL (3 mL) Inject 20 Units subcutaneously every morning. blood sugar diagnostic (BLOOD GLUCOSE TEST) test strip Test blood sugar(s) three times daily. Dx: Type 2 DM - Uncontrolled E11.65 Insulin: Yes insulin lispro (HUMALOG KWIKPEN INSULIN) 100 unit/mL Inject 2 Units subcutaneously three times a day before meals. Insulin Kingston, Disposable, (BD ULTRA-FINE LUIS PEN NEEDLE) 32 gauge x Use one needle daily for each insulin dose, 4 x's daily. Type 2 DM, insulin dependent. Lancets lancets Test blood sugar(s) one times daily. Dx: Type 2 DM - Uncontrolled E11.65 Insulin: Yes MEDICAL SUPPLY Hospital bed with rails. Blood-Glucose Meter 1 Device as directed. melatonin 3 mg tablet Take 1 tablet by mouth daily at bedtime. glucose (DEX4 GLUCOSE) 4 gram chewable tablet Take 4 tablets by mouth as needed. Lancing Device (LANCING DEVICE WITH LANCETS) [facility] Use to check blood sugars as directed COMPOUNDED PRESCRIPTION Diabetic shoes: DIABETES MELLITUS- uncontrolled with neuropathy Syringe with Needle, Safety (BD INTEGRA) 3 mL 22 x 1 1/2 syrg Uses twice a month for testosterone injections hydrALAZINE (APRESOLINE) 50 mg tablet Take 1 tablet by mouth every 8 hours. (Patient not taking: Reported on 01/10/2025) No current facility-administered medications for this visit. 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 Family History Problem Relation Age of Onset Stroke Mother Hypertension Mother Colon Cancer Mother Heart Father IA Diabetes Sister No Known Problems Brother No Known Problems Brother No Known Problems Brother Diabetes Maternal Grandmother No Known Problems Maternal Grandfather No Known Problems Paternal Grandmother No Known Problems Paternal Grandfather Mother in her 60s from lymph node cancer. He is not aware if she had a h/o colon cancer or not. ROS: Constitutional: No fever. No drenching night sweats. All systems reviewed on 01/21/2025 with pertinent positives and negatives as outlined in the interval history. PHYSICAL EXAM: Vitals: Blood pressure 147/82, pulse (!) 49, temperature 36.1 C (97 F), temperature source Temporal, weight 68.7 kg (151 lb 8 oz), SpO2 99%. Pale and thin-in no acute distress. EYES: Sclerae are anicteric bilaterally. LYMPHATIC: There is no palpable cervical or supraclavicular adenopathy. RESPIRATORY: Inspiratory breath sounds are of normal intensity in all patel. No rales, wheezes or rhonchi. CARDIOVASCULAR: Rhythm is regular. ABDOMEN: The abdomen is nondistended. Extremities: No swelling or edema. SKIN: No jaundice. I have performed the physical exam today (01/21/2025) and have edited the note to correlate with current findings. ASSESSMENT/PLAN: (N18.5, D63.1) Anemia associated with stage 5 chronic renal failure (HCC) (primary encounter diagnosis) Assessment: -The patient is a 68-year-old male with past medical history as outlined above. Iron was low for degree of renal insufficiency. - Dr. Freire previously reviewed his previous laboratory workup with him and his brother in detail. No evidence of monoclonal protein in the serum and 24-hour urine collection. Serum light chains and ratio elevated but consistent with GFR. He has diabetic nephropathy and is a candidate for PAULA therapy. - received IV iron last dose 12/24/2024 - Started PAULA on 12/24/24 Plan: - Follow-up on results of today's iron studies. - PAULA treatment for hgb less than 10. No injection today - Fistula placement on 01/28 - will plan to continue as scheduled until we know final plan for dialysis. - discussed PAULA and iron is typically managed by dialysis center once dialysis starts. Octavio Monsalve APRN.HELIARC WELDER I spent a total of 20 minutes on the date of the service which included preparing to see the patient, [id number] patient care, completing clinical documentation, obtaining and/or reviewing separately obtained history, performing a medically appropriate examination, and counseling and educating the patient/family/caregiver. Portions of this note including HPI, ROS, impression/plan may have been copied forward as to provide important historical information essential in contributing to medical decision making. Documentation has been reviewed and edited as necessary to support clinical decision making for today's visit and to reflect my own independent evaluation of this patient. documented in this encounterBluffton Hospital06-12-2025 Telephone encounter Note * Telephone Encounter - Sima Corley LPN - 01/16/2025 1:21 PM EDT Patients sister notified of providers message and verbalized understanding [facility]06-12-2025 Miscellaneous Notes* Telephone Encounter - Sima Corley LPN - 01/16/2025 1:21 PM EDT Patients sister notified of providers message and verbalized understanding * Telephone Encounter - Vera Manrique MD - 01/16/2025 1:01 PM EDT Ok to hold 5 days prior to surgery, Thank you Regards, Vera Manriuqe MD' * Telephone Encounter - Mila Kaiser RN - 01/16/2025 11:[address] Manrique, Your patient, Mr Lou Julien, is scheduled for CREATION FISTULA ARTERIOVENOUS EXTREMITY UPPER-under general anesthesia by Dr. Milan Shrestha on 01/30/2025. Currently he is on Plavix and baby ASA for history of stroke-2019. Please advise if Lou, can hold Plavix for 5-7 days prior to surgery? Thank you, Viv Kaiser RN documented in this encounterBluffton Hospital06-12-2025 Telephone encounter Note * Telephone Encounter - Vera Manrique MD - 01/16/2025 1:01 PM EDT Ok to hold 5 days prior to surgery, Thank you Regards, Vera Manrique MD' [facility]06-12-[facility] Telephone encounter Note* Telephone Encounter - Laurie Jefferson MA - 01/16/2025 12:32 PM EDT Records received from [facility] and scanned into [facility]. Laurie Jefferson MA [facility]06-12-2025 Miscellaneous Notes* Telephone Encounter - Laurie Jefferson MA - 01/16/2025 12:32 PM EDT Records received from [facility] and scanned into [facility]. Laurie Jefferson MA documented in this encounterBluffton Hospital06-12-2025 Telephone encounter Note * Telephone Encounter - Mila Kaiser RN - 01/16/2025 11:[address] Manrique, Your patient, Mr Lou Julien, is scheduled for CREATION FISTULA ARTERIOVENOUS EXTREMITY UPPER-under general anesthesia by Dr. Milan Shrestha on 01/30/2025. Currently he is on Plavix and baby ASA for history of stroke-2019. Please advise if Lou, can hold Plavix for 5-7 days prior to surgery? Thank you, Viv Kaiser RN [facility]06-12-2025 NoteHNO ID: [id number] Author: MILA KAISER RN Service: ? Author Type: Registered Nurse Type: Progress Notes Filed: 01/21/2025 13:51 Note Text: RN Pre Visit Questionnaire for upcoming [facility] appointment PROCEDURE : CREATION FISTULA ARTERIOVENOUS EXTREMITY UPPER-right SURGEON : Dr. Milan Shrestha PROCEDURE DATE : 01/30/2025 [facility] APPT : 01/23/2025 Prepared for surgery: Anticoagulant recommendations received: Yes RN Pre Visit Questionnaire completed by [facility] chart review and completed with patient and patient's family. Do you see a planning supervisor, shine worker, aircraft load controller or other specialist within or outside of [facility]? Cardiology: Dr. Chávezori External Document(s) - Consultation - Cardiology (06/12/2024) SPECIALISTS: ENDOCRINOLOGY: Office Visit with Cookie Delacruz APRN.CNP (10/09/2024) HEMATOLOGY: Boarding Mother: Visit (SP) Office with Octavio Monsalve (01/21/2025); Visit (SP) Office with Nini Freire DO (12/11/2024) Iron deficiency anemia PRIMARY CARE PHYSICIAN: Office Visit with Vera Manrique MD (12/31/2024)/ Taco Tatum CNP Nephrology: Office Visit with Janice Hodges APRN.HELIARC WELDER (01/02/2025) Are you on an anticoagulant [facility] Anticoagulant: Yes Medication : Plavix (Clopidogrel) ASA 81 mg Have you been provided instructions: No Letter or Telephone encounter sent : Yes Anticoagulation recommendations : Found in telephone encounter on 01/16/2025 Provider : Dr Manrique Anticoagulation instructions : Can hold Plavix 5 days prior to surgery- reply~Telephone with Mila Kaiser RN (01/16/2025) Implanted Devices: PPM/AICD, Last interrogation: 03/11/2022 will need an appt., prior to surgery (01/16-spoke with [facility] cardiology office-unable to schedule device check prior to surgery; called [place] [facility] and first available appt., is 02/10/2025)-pending Type of device/Putter In: [employer] dual chamber pacemaker Battery life: Pending , Pacemaker dependency: No; Mode: DDD Location of CIED generator in body: left chest and Surgical site: right upper extremity >>>Patient instructed to make appointment prior to elective surgery for device interrogation- 01/16/25~ called and left voicemail >>> * left voicemail with patient's sister to call [facility] main device clinic [phone] to schedule pacemaker check. *01/17/25-pt's sister, Renetta, , called back and will try and schedule)-pending.<<< Most recent EKG: done 12/25/2023-External Document(s) - miscellaneous (01/16/2025) Most recent ECHO (01/31/2023 1:55 PM) Most recent STRESS TEST~EXTERNAL CARDIOLOGY (05/22/2019 2:00 PM) Most recent DEVICE CHECK: in person check done 03/12/2022~External Document(s) - miscellaneous (01/16/2025); No show for scheduled device check on 06/19/2024. >>>Needs a recent scheduled PPM check or DOS interrogation~pending. Most recent Carotid Duplex US~EXTERNAL CARDIOLOGY (05/08/2023 4:27 PM) Most recent Lab: HEMOGLOBIN A1C (09/24/2024 10:34 AM) Hx [id number] residual per patient Hx SSS~S/P PPM implanted 03/05/2019 HTN Diabetic Anemia-iron deficiency (receives Aranesp-last injection 01/07/2025) CKD stage 5 Any new changes in your symptoms since you last saw your specialist? No Are you a Pre Diabetic/Diabetic/Weight loss/CHF medications Prediabetes/DM Insulin Medication Instructions Humalog - Please take the following medications at your usual dose the day before surgery. Lantus - take 75% of your usual dose the evening before surgery. If you take in the morning: Check fasting AM glucose, if 200 or greater, take half the prescribed dose.If under 200, do not take your morning dose Dialysis No Skilled Facility Resident: no Any recent hospitalizations within [facility] or outside facilities in the past 3 months No Please have an up-to-date list of medications in preparation for your PACC visit. Instructions Given to Patient: Patient given verbal diabetic preop instructions and voices comprehension and compliance. SIGNATURE: Mila Kaiser RN PATIENT NAME: Lou Julien DATE: January 16, 2025 TIME: 10:47 AM PAGER/CONTACT PHONE:[phone] History of Present illness Narrative* Mila Kaiser RN - 01/16/2025 10:46 AM EDT RN Pre Visit Questionnaire for upcoming PACC appointment PROCEDURE : CREATION FISTULA ARTERIOVENOUS EXTREMITY UPPER-right SURGEON : Dr. Milan Shrestha PROCEDURE DATE : 01/30/2025 PACC APPT : 01/23/2025 Prepared for surgery: Anticoagulant recommendations received: Yes RN Pre Visit Questionnaire completed by Epic chart review and completed with patient and patient's family. Do you see a planning supervisor, shine worker, aircraft load controller or other specialist within or outside of [facility]? Cardiology: Dr. Mitch Harris External Document(s) - Consultation - Cardiology (06/12/2024) SPECIALISTS: ENDOCRINOLOGY: Office Visit with Cookie Delacruz APRN.HELIARC WELDER (10/09/2024) HEMATOLOGY: Boarding Mother: Visit (SP) Office with Nini Freire DO (12/11/2024) Iron deficiency anemia PRIMARY CARE PHYSICIAN: Office Visit with Vera Manrique MD (12/31/2024)/ Taco Tatum CNP Nephrology: Office Visit with Janice Hodges APRN.ELROY (01/02/2025) Are you on an anticoagulant PACC Anticoagulant: Yes Medication : Plavix (Clopidogrel) ASA 81 mg Have you been provided instructions: No Letter or Telephone encounter sent : Yes Anticoagulation recommendations : Found in telephone encounter on 01/16/2025 Provider : Dr Manrique Anticoagulation instructions : Can hold Plavix 5 days prior to surgery- reply~Telephone with Mila Kaiser RN (01/16/2025) Implanted Devices: PPM/AICD, Last interrogation: 03/11/2022 will need an appt., prior to surgery (01/16-spoke with [facility] cardiology office-unable to schedule device check prior to surgery; called [place] [facility] and first available appt., is 02/10/2025)-pending Type of device/Putter In: [employer] dual chamber pacemaker Battery life: Pending , Pacemaker dependency: No; Mode: DDD Location of CIED generator in body: left chest and Surgical site: right upper extremity >>>Patient instructed to make appointment prior to elective surgery for device interrogation- 01/16/25~ called and left voicemail >>> * left voicemail with patient's sister to call [facility] main device clinic [phone] to schedule pacemaker check. *01/17/25-pt's sister, Renetta, , called back and will try and schedule)-pending.<<< Most recent EKG: done 12/25/2023-External Document(s) - miscellaneous (01/16/2025) Most recent ECHO (01/31/2023 1:55 PM) Most recent STRESS TEST~EXTERNAL CARDIOLOGY (05/22/2019 2:00 PM) Most recent DEVICE CHECK: in person check done 03/12/2022~External Document(s) - miscellaneous (01/16/2025); No show for scheduled device check on 06/19/2024. >>>Needs a recent scheduled PPM check or DOS interrogation~pending. Most recent Carotid Duplex US~EXTERNAL CARDIOLOGY (05/08/2023 4:27 PM) Most recent Lab: HEMOGLOBIN A1C (09/24/2024 10:34 AM) Hx [id number] residual per patient Hx SSS~S/P PPM implanted 03/05/2019 HTN Diabetic Anemia-iron deficiency (receives Aranesp-last injection 01/07/2025) CKD stage 5 Any new changes in your symptoms since you last saw your specialist? No Are you a Pre Diabetic/Diabetic/Weight loss/CHF medications Prediabetes/DM Insulin Medication Instructions Humalog - Please take the following medications at your usual dose the day before surgery. Lantus - take 75% of your usual dose the evening before surgery. If you take in the morning: Check fasting AM glucose, if 200 or greater, take half the prescribed dose.If under 200, do not take your morning dose Dialysis No Skilled Facility Resident: no Any recent hospitalizations within [facility] or outside facilities in the past 3 months No Please have an up-to-date list of medications in preparation for your PACC visit. Instructions Given to Patient: Patient given verbal diabetic preop instructions and voices comprehension and compliance. SIGNATURE: Mila Kaiser RN PATIENT NAME: Lou Julien DATE: January 16, 2025 TIME: 10:47 AM PAGER/CONTACT PHONE: documented in this encounterBl[facility]06-[facility] Telephone encounter Note * Telephone Encounter - Brenda Talavera MA - 01/14/2025 3:05 PM EDT [facility] and who also supplies incontinence supplies. Sister notified as well. Brenda Talavera MA [facility]06-10-2025 Miscellaneous Notes* Telephone Encounter - Brenda Talavera MA - 01/14/2025 3:05 PM EDT Will fax order to [facility] which is off of [facility] and who also supplies incontinence supplies. Sister notified as well. Brenda Talavera MA * Telephone Encounter - Terrie Telles LPN - 01/14/2025 2:29 PM EDT Patient sister Renetta calling asking where was the order for his incontinence supplies sent to? Brother was seen in office on 12/31/2024. She has not received anything or call. Computer shows where rxwas printed, aware no medical supply located on [facility]. If could call her and tell her where order was faxed to please. documented in this encounterBluffton Hospital06-10-2025 NoteHNO ID: [id number] Author: SAYDA MORENO LPN Service: ? Author Type: LICENSED NURSE Type: Progress Notes Filed: 01/14/2025 14:55 Note Text: Injection deferred, parameters not met HGB 10.1 [facility] History of Present illness Narrative* Sayda Moreno LPN - 01/14/2025 2:48 PM EDT Injection deferred, parameters not met HGB 10.1 Sayda Moreno LPN documented in this encounterBluffton Hospital06-10-2025 Telephone encounter Note * Telephone Encounter - Terrie Telles LPN - 01/14/2025 2:29 PM EDT Patient sister Renetta calling asking where was the order for his incontinence supplies sent to? Brother was seen in office on 12/31/2024. She has not received anything or call. Computer shows where rxwas printed, aware no medical supply located on [facility]. If could call her and tell her where order was faxed to please. [facility]06[facility] History of Present illness Narrative* Rc Shrestha MD - 01/10/2025 11:20 AM EDT Images from the original note were not included. Heart , Vascular and Thoracic [place] DEPARTMENT OF VASCULAR SURGERY OUTPATIENT VISIT DATE January 10, 2025 OUTPATIENT VISIT TYPE CONSULTATION PRIMARY CARE PHYSICIAN: Vera Manrique MD REFERRING PROVIDER: Janice Hodges [id number] [address] Consult requested for an opinion regarding the evaluation and treatment of the above. My final impression and recommendations will be communicated back to the requesting physician by way of the shared medical record or letter via US mail. CHIEF COMPLAINT: Permanent HD access creation HISTORY OF PRESENT ILLNESS: Lou Julien is a 69-year-old male with a history of CKD with proteinuria, diabetic nephropathy, HTN, CVA, complete heart block s/p pacemaker placement, carotid stenosis, metabolic acidosis, iron deficiency anemia, and HLD, presenting for evaluation of dialysis access. Lou is nearing the need for dialysis and is here to discuss options for dialysis access. He is left-handed and has been using a left leg brace for 2 years due to residual weakness from a CVA in 2019. He uses a cane for ambulation outside of his apartment and a walker inside. He is not yet on dialysis but has been receiving Aranesp and iron transfusions. He is currently on aspirin 81 mg daily, Plavix, atorvastatin, and insulin for diabetes management. His CKD is stage 5, with a Cystatin C level of 3.31 and a GFR of 15 as of November 2024. His baseline creatinine has been trending up, most recently ranging from 3.1 to 3.8 mg/dL. He underwent vein mapping on 01/06/2025, which showed various measurements of the brachial, radial, ulnar arteries, and cephalic and basilic veins in both arms. The mapping did not show evidence of DVT. A carotid duplex on 05/08/2023 showed less than 50% stenosis in the bilateral internal carotid arteries with patent and integrated vertebral flow bilaterally. Lou denies any history of radiation, neck surgeries, arm swelling, blood clots in the arms, or prior CVC, he does have a pacemaker on the left. He also denies any chest pain, back pain, or episodesof tachycardia. He reports difficulty walking up stairs and feeling unsteady but denies any claudication symptoms. He has no residual weakness in his arms, only in his left leg. MEDICATIONS: Diaper,Brief, Adult,Disposable (DEPEND UNDERWEAR FOR MEN ADRIEL-) 1 each as needed. Diaper,Brief, Adult,Disposable (UNDERWEAR) Use 3-4 briefs daily as needed. Family states size small. Will need for a full year. And additional incontinence supplies as needed please traZODone (DESYREL) 50 mg tablet Take 1-2 tablets by mouth daily at bedtime. Senna 8.6 mg tab Take 1 tablet by mouth three times a day as needed. sodium bicarbonate 650 mg tablet TAKE 1 TABLET BY MOUTH TWICE A DAY amLODIPine (NORVASC) 10 mg tablet Take 1 tablet by mouth once daily. tamsulosin (FLOMAX) 0.4 mg Take 1 capsule by mouth daily at bedtime. atorvastatin (LIPITOR) 80 mg tablet Take 1 tablet by mouth every morning. alcohol swabs (ALCOHOL PREP PADS) Apply 1 application to affected area TID with insulin injection aspirin, enteric coated (ADULT LOW DOSE ASPIRIN) 81 mg EC tablet Take 1 tablet by mouth every morning. DAILY-YOUSUF, WITH FOLIC ACID, 400 mcg Take 1 tablet by mouth once daily. clopidogrel (PLAVIX) 75 mg tablet Take 1 tablet by mouth once daily. insulin glargine (LANTUS SOLOSTAR U-100 INSULIN) 100 unit/mL (3 mL) Inject 20 Units subcutaneously every morning. blood sugar diagnostic (BLOOD GLUCOSE TEST) test strip Test blood sugar(s) three times daily. Dx: Type 2 DM - Uncontrolled E11.65 Insulin: Yes insulin lispro (HUMALOG KWIKPEN INSULIN) 100 unit/mL Inject 2 Units subcutaneously three times a day before meals. Insulin [place], Disposable, (BD ULTRA-FINE LUIS PEN NEEDLE) 32 gauge x Use one needle daily for each insulin dose, 4 x's daily. Type 2 DM, insulin dependent. Lancets lancets Test blood sugar(s) one times daily. Dx: Type 2 DM - Uncontrolled E11.65 Insulin: Yes MEDICAL SUPPLY Hospital bed with rails. Blood-Glucose Meter 1 Device as directed. melatonin 3 mg tablet Take 1 tablet by mouth daily at bedtime. glucose (DEX4 GLUCOSE) 4 gram chewable tablet Take 4 tablets by mouth as needed. Lancing Device (LANCING DEVICE WITH LANCETS) [facility] Use to check blood sugars as directed COMPOUNDED PRESCRIPTION Diabetic shoes: DIABETES MELLITUS- uncontrolled with neuropathy Syringe with Needle, Safety (BD INTEGRA) 3 mL 22 x 1 1/2 syrg Uses twice a month for testosterone injections losartan (COZAAR) 25 mg tablet TAKE 1 TABLET BY MOUTH DAILY metoprolol succinate ER (TOPROL XL) 100 mg Take 1 tablet by mouth every morning. hydrALAZINE (APRESOLINE) 50 mg tablet Take 1 tablet by mouth every 8 hours. (Patient not taking: Reported on 01/10/2025) SOCIAL HISTORY: Social History Tobacco Use Smoking status: Former Types: Cigars Quit date: 1994 Years since quittin.4 Smokeless tobacco: Never Vaping Use Vaping status: Never Used Substance Use Topics Alcohol use: Not Currently Drug use: Never PAST MEDICAL HISTORY: PAST MEDICAL HISTORY Diagnosis Date Anemia associated with stage 4 chronic renal failure ([facility]) 01/25/2023 Anemia associated with stage 5 chronic renal failure ([facility]) 01/25/2023 Basilar artery stenosis 02/19/2019 Cerebrovascular accident (CVA) of right thalamus ([facility]) 02/19/2019 Chronic renal insufficiency Complete heart block ([facility]) 03/04/2019 s/p pacemaker Coronary artery disease 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 Dyslipidemia Embolism and thrombosis of unspecified site 04/25/2008 Essential hypertension, benign Family history of malignant neoplasm of gastrointestinal tract Iron malabsorption ([facility]) 12/12/2024 Non-proliferative diabetic retinopathy, mild, both eyes ([facility]) 10/11/2017 Non-proliferative diabetic retinopathy, moderate, both eyes ([facility]) 10/14/2019 Other specific developmental learning difficulties Pneumonia 07/07/2015 Dx at [facility] ER Psoriasis and similar disorders Pure hypercholesterolemia Pure hyperglyceridemia Right thalamic infarction (HCC) 02/18/2019 [facility] Stenosis of carotid artery Stroke ([facility]) Tietze's disease Tinea unguium 12/01/2017 Type II or unspecified type diabetes mellitus with neurological manifestations, not stated as uncontrolled(250.60) PAST SURGICAL HISTORY: PAST SURGICAL HISTORY Procedure Laterality Date COLONOSCOPY 08/23/2023 Dr. Javier, [facility] COLONOSCOPY FLX DX W/COLLJ SPEC WHEN PFRMD 2017 repeat 3 years COLONOSCOPY SCREENING 06/22/2023 Dr. Javier, [facility] EGD W/O [facility] SPEC VARICIES INJ 06/22/2023 Dr. Javier, [facility] ESOPHAGOGASTRODUODENOSCOPY TRANSORAL DIAGNOSTIC 2017 EGD LAPAROSCOP GASTRIC BYPASS N/A NEUROPLASTY &/TRANSPOS MEDIAN NRV CARPAL TUNNE 05/08/2012 Carpal tunnel decomp right PACEMAKER 03/04/2019 PAST SURGICAL HISTORY OF EGD PAST SURGICAL HISTORY OF Colonsocopy FAMILY HISTORY FAMILY HISTORY Problem Relation Age of Onset Stroke Mother Hypertension Mother Colon Cancer Mother Heart Father IA Diabetes Sister No Known Problems Brother No Known Problems Brother No Known Problems Brother Diabetes Maternal Grandmother No Known Problems Maternal Grandfather No Known Problems Paternal Grandmother No Known Problems Paternal Grandfather ALLERGIES: ALLERGIES Allergen Reactions Lopid [Gemfibrozil] Diarrhea Metformin Diarrhea COMPLETE REVIEW OF SYSTEMS Comprehensive 11 system review of systems did not reveal any pertinent positives or negatives except per HPI PHYSICAL EXAM: VITALS: BP 134/61 Pulse 60 SpO2 99% General: Male, appears well, no acute distress HEENT/PULSES: JVP not visible, no carotid bruit Chest: normal respiratory effort, no coughing or wheezing Heart: RRR, no heart murmur on auscultation, L chest pacemaker Abdomen: soft, non-tender Extremities: no edema, feet warm bilaterally, no wounds, uses a left leg brace, unsteady gait, residual weakness in left leg Peripheral pulses: palpable femoral pulses bilaterally, palpable pedal pulses, - ve allens test bilaterally Skin: warm, dry Neurologic: alert, oriented x 3 Psychiatric: normal affect, normal judgment, normal insight. Extremities: Hands warm bilaterally Proximal upper extremity or chest wall collaterals - No UE or CW scars, UE edema - No LE edema - No DIAGNOSTIC TESTS REVIEWED FOR TODAY'S VISIT: Labs: (November 2024) - Cystatin C: 3.31 - GFR: 15 - Creatinine: 3.1 to 3.8 mg/dL (baseline trending upward) Imaging: (01/06/2025) Vein Mapping: - Right brachial artery: 0.53 cm diameter, peak systolic velocity 127 - Right radial artery: 0.22 cm diameter, multiphasic waveforms - Right ulnar artery: 0.22 cm diameter, multiphasic waveforms - Right forearm cephalic vein: 2.9 mm, 2.7 mm, 2.6 mm - Right antecubital fossa cephalic vein: 3.4 mm - Right basilic vein in the upper arm: 3.8 mm, 3.4 mm, 6.8 mm, 5.9 mm - Median cubital vein: 2.9 mm - No evidence of DVT - Left brachial artery: 0.47 cm diameter, peak systolic velocity 108 - Left radial artery: 0.19 cm diameter - Left ulnar artery: 0.19 cm diameter - No usable vein in left arm (<2 mm) - Right brachial bifurcation below elbow crease - Right cephalic vein inadequately visualized at proximal, upper, and distal upper arm (05/08/2023) Carotid Duplex: - <50% stenosis in bilateral internal carotid arteries - Patent integrated vertebral flow bilaterally CARDIOPULMONARY STUDIES: ECHO: LV Ejection Fraction (%) Date Value 01/31/2023 56 LV Diastolic Diameter (cm) Date Value 12/05/2002 5 LV Systolic Diameter (cm) Date Value 12/05/2002 3.4 ASSESSMENT AND PLAN: 1. Chronic kidney disease, stage 5 (HCC) (N18.5) Hypertensive heart and chronic kidney disease without heart failure, with stage 5 chronic kidney disease, or end stage renal disease (HCC) (I13.11) Diabetic nephropathy associated with type 2 diabetes mellitus (HCC) (E11.21) Patient is nearing dialysis initiation. Vein mapping on 01/06/2025 shows suitable veins for AV fistula creation in the right arm. - Scheduled for AV fistula creation in the right arm. - Patient to continue current medications including aspirin, Plavix, and atorvastatin. - Pre-anesthesia testing to be completed prior to surgery to ensure clearance. - Follow-up appointment in 5-6 weeks post-surgery to assess fistula maturation. 2. Bilateral carotid artery stenosis (I65.23) Carotid duplex on May 08, 2023 shows less than 50% stenosis in the bilateral internal carotid arteries with patent and integrated vertebral flow bilaterally. No further imaging at this time. 3. Complete heart block (HCC) (I44.2) Clinically stable. 4. Mixed hyperlipidemia (E78.2) Clinically stable on atorvastatin. Continue atorvastatin therapy. Thank you for the opportunity to contribute to Mr. Julien's care. Please do not hesitate to call withany questions or concerns. Rc Shrestha MD Vascular Surgery Staff Medical Decision Making: Problems: Low: Stable chronic illness High: Chronic illness with severe change Data: Unique test result(s) reviewed: 3+ Independent interpretation of test from other physician/QHCP Risk: Moderate: Decision on minor surgery w/ risk factors Medical Decision Making Level: 5 - High documented in this encounterBluffton Hospital06-03-2025 NoteHNO ID: [id number] Author: AZRA BRUCE LPN Service: ? Author Type: LICENSED NURSE Type: Progress Notes Filed: 01/07/2025 15:08 Note Text: Patient here for injection of Aranesp. Given SQ in left arm. Patient tolerated well. Azra Bruce [facility]06-03-2025 History of Present illness Narrative* Azra Bruce LPN - 01/07/2025 3:01 PM EDT Patient here for injection of Aranesp. Given SQ in left arm. Patient tolerated well. Azra Bruce LPN documented in this encounterBluffton Hospital06-03-2025 Telephone encounter Note * Telephone Encounter - Carline Cason RN - 01/07/2025 8:54 AM EDTSummary: Vasc consult CKD SPECIALIZED COORDINATION QUICK NOTE Provider Action/FYI Telephone call Patient identified by name and date : Yes Spoke with sister, Renetta & reminded her of pt's appt for vein mapping & Vasc consult in [place] on 01/10/25. Carline Cason RN [facility]06-03-2025 Miscellaneous Notes* Telephone Encounter - Carline Cason RN - 01/07/2025 8:54 AM EDTSummary: Vasc consult CKD SPECIALIZED COORDINATION QUICK NOTE Provider Action/FYI Telephone call Patient identified by name and date : Yes Spoke with sister, Renetta & reminded her of pt's appt for vein mapping & Vasc consult in [place] on 01/10/25. Carline Cason RN documented in this encounterBluffton Hospital05-29-2025 Instructions* Patient Instructions* Janice Hodges APRN.HELIARC WELDER - 01/02/2025 2:04 PM EDT We discussed your anemia: - You are receiving weekly injections to help improve your hemoglobin levels. Your hemoglobin is currently 7, which is still low, but your color and energy levels are improving. Please continue with the injections as they are helping. - When you go for your next injection on Monday, make sure they also perform the monthly blood work to monitor your anemia. I will call your sister, Renetta, with the results. - Continue taking your sodium bicarbonate as prescribed (one pill in the morning and one at night).If your lab results show a lower level, we may need to adjust the dose. We discussed your kidney function: - Your kidney function is currently at 15%. Dialysis is typically started when kidney function drops to around 10%, but we are not at that point yet. - You are scheduled for an ultrasound next week to evaluate where a dialysis access could be placedin your arm if needed in the future. This is a precautionary step, and we will not start dialysis unless it becomes necessary. - If dialysis is needed in the future, transportation assistance will be arranged to ensure you canattend the sessions. We discussed your diet and hydration: - Your appetite remains poor. You are currently receiving one meal per day through a meal delivery service. Please continue to eat additional meals at home as you are able. Your aide can assist with warming up meals. - You are drinking more water, which is a positive change. You reported drinking about four 8-ouncebottles of water each morning. Please continue to stay hydrated. We discussed your general health and mobility: - You are not experiencing chest pain, stomach pain, or blood in your stool. Please let me know if any of these symptoms develop. - You are using a cane and walker for mobility, which is appropriate given your history of a strokeand the brace on your left leg. Continue using these devices to prevent falls. - You are not experiencing swelling in your legs, which is a good sign. We discussed your upcoming appointments: - You have an appointment with Dr. West on Monday in [place]. Your ayqpspy-ch-sqi and sister will accompany you. This appointment may include discussions about surgery, so it is good to have them there for support and to help with any questions. - Please keep your follow-up appointments with me every 2-3 months. Your next visit should be scheduled for March. If you have any new symptoms or concerns before your next visit, please contact our office. Please bring a complete list of your medications, the dosage and times taken - to every visit. Please contact me by phone or via My Chart for any questions or concerns. We want to know that ALL of your concerns/needs relevant to this visit- were met today and that we have hopefully exceeded your expectations. If not-please let us know how we can improve our service to you by calling [phone] You may be receiving a survey regarding your care today. If you do, please take a few minutes to fill it out and send it back. It would be greatly appreciated. documented in this encounterBluffton Hospital05-29-2025 History of Present illness Narrative* Janice Hodges APRN.ELROY - 01/02/2025 1:30 PM EDT Images from the original note were not included. Department of Kidney Medicine Medical Specialties [place] [facility] CHIEF COMPLAINT: Follow up for CKD. Data copied from my previous encounters and was imported as a reference for the current encounter. All information in this note has been verified. Data or information that hasn't changed was retainedfrom previous notes and the rest was revised or updated where relevant. Patient will require on going follow up appointments to manage chronic kidney disease HPI: Pt is an 69 year old male being seen today in FU for CKD with proteinuria likely in the setting of diabetic nephropathy. PMH: DM, HTN, CVA, complete heart block, carotid stenosis, metabolic acidosis, iron deficient anemia and hyperlipidemia Lou is a 69-year-old male with a history of anemia and CKD, presenting for follow-up. Lou reports weekly phlebotomies and injections for anemia, with the next session scheduled for Monday. He notes a slight improvement in energy levels since starting these treatments. He denies chest pain, hematuria, hematochezia, melena, abdominal pain, or dysuria. He reports consistent daily cephalalgia, described as a knot in the head, occurring approximately 50% of the time, for which he does not take any medication. He denies experiencing dizziness or lightheadedness. Lou has a history of CVA and has been using a left leg brace for 2 years. He uses a cane for ambulation outside his apartment and a walker inside. He denies lower extremity edema. He receives assistance from an aide 5 days a week, with visits lasting 1 hour and 15 minutes in the morning and 1.5 hours in the evening. He also receives occasional help from neighbors. His sister lives 15 minutes away and can assist in emergencies. He has a cell phone for communication. Lou reports poor appetite and receives one meal per day from [employer]. He drinks 4-5 smallbottles of water each morning. He monitors his blood glucose levels, with a recent reading of 89 mg/dL, and denies any recent hyperglycemia. He does not monitor his blood pressure at home but has hisaide check it. He denies any metallic taste in his mouth. Lou is currently taking sodium bicarbonate, 1 capsule in the morning and 1 capsule in the evening. He is also on a 500 mg medication for an infection, the name of which he does not recall. He is unsure if he is still taking pantoprazole. Lou has been educated about dialysis and expresses willingness to undergo the procedure when necessary. He has an upcoming appointment for an ultrasound to evaluate potential sites for dialysis access. He has transportation arranged for his medical appointments. Last seen by Dr Olmos 11/20/23- started losartan and NaHCo3 Myself 09/30/24- discussed again declining renal function, need for hematology follow up and dialysis education. Since last visit has followed with hematology and getting both aranesp and iron infusions. Had dialysis education w [facility] BPs at home not sure but said his aide can do it if needed Blood sugars at home 89 this morning Medication adherence is good Avoids NSAIDS Follows low salt diet Lives about an hour away- [facility] is closest facility Has an aide who comes daily for breakfast, otherwise he does the cooking. Lives alone. Not close with family and denies friends that are close enough to check on him. Drinking 32-48oz water per day Poor appetite/[employer] Whe[employer] Problem List Reviewed PAST MEDICAL HISTORY Diagnosis Date Anemia associated with stage 4 chronic renal failure ([facility]) 01/25/2023 Anemia associated with stage 5 chronic renal failure ([facility]) 01/25/2023 Basilar artery stenosis 02/19/2019 Cerebrovascular accident (CVA) of right thalamus ([facility]) 02/19/2019 Chronic renal insufficiency Complete heart block ([facility]) 03/04/2019 s/p pacemaker Coronary artery disease 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 Dyslipidemia Embolism and thrombosis of unspecified site 04/25/2008 Essential hypertension, benign Family history of malignant neoplasm of gastrointestinal tract Iron malabsorption ([facility]) 12/12/2024 Non-proliferative diabetic retinopathy, mild, both eyes ([facility]) 10/11/2017 Non-proliferative diabetic retinopathy, moderate, both eyes ([facility]) 10/14/2019 Other specific developmental learning difficulties Pneumonia 07/07/2015 Dx at [facility] ER Psoriasis and similar disorders Pure hypercholesterolemia Pure hyperglyceridemia Right thalamic infarction ([facility]) 02/18/2019 [facility] Stenosis of carotid artery Stroke ([facility]) Tietze's disease Tinea unguium 12/01/2017 Type II or unspecified type diabetes mellitus with neurological manifestations, not stated as uncontrolled(250.60) Current Outpatient Medications on File Prior to Visit Medication Sig cholecalciferol, Vitamin D3, (VITAMIN D3) 1,250 mcg (50,000 unit) cap capsule Take 1 capsule twice per week for 12 weeks. hydrALAZINE (APRESOLINE) 50 mg tablet Take 1 tablet by mouth every 8 hours. blood sugar diagnostic (BLOOD GLUCOSE TEST) test strip Test blood sugar(s) three times daily. Dx: Type 2 DM - Uncontrolled E11.65 Insulin: Yes clopidogrel (PLAVIX) 75 mg tablet Take 1 tablet by mouth once daily. Senna 8.6 mg tab Take 1 tablet by mouth three times a day as needed. losartan (COZAAR) 25 mg tablet Take 1 tablet by mouth once daily. sodium bicarbonate 650 mg tablet Take 1 tablet by mouth two times a day. Take by mouth as directed. insulin glargine (LANTUS SOLOSTAR U-100 INSULIN) 100 unit/mL (3 mL) Inject 20 Units subcutaneously every morning. amLODIPine (NORVASC) 10 mg tablet Take 1 tablet by mouth once daily. multivitamin (DAILY-YOUSUF) tablet Take 1 tablet by mouth once daily. traZODone (DESYREL) 50 mg tablet Take 1-2 tablets by mouth daily at bedtime. atorvastatin (LIPITOR) 80 mg tablet Take 1 tablet by mouth every morning. metoprolol succinate ER (TOPROL XL) 100 mg Take 1 tablet by mouth every morning. tamsulosin (FLOMAX) 0.4 mg take 1 capsule by mouth at bedtime aspirin, enteric coated (ADULT LOW DOSE ASPIRIN) 81 mg EC tablet Take 1 tablet by mouth every morning. alcohol swabs (ALCOHOL PREP PADS) Apply 1 application to affected area once daily with insulin injection polyethylene glycol 3350 17 gram/dose powder Take 17 g by mouth once daily. Drink a mix of 1 scoop in 8oz of water/beverage once daily as needed for constipation. insulin lispro (HUMALOG KWIKPEN INSULIN) 100 unit/mL Inject 2 Units subcutaneously three times a day before meals. diclofenac (VOLTAREN) 1 % topical gel Apply 2 g to affected area four times daily. Miscellaneous Medical Supply (BLOOD PRESSURE CUFF) 1 Each once daily. Blood Pressure Monitor 1 Each as directed. Diaper,Brief, Adult,Disposable (DEPEND UNDERWEAR FOR MEN -MD) 1 Each as needed. Insulin Kingston, Disposable, (BD ULTRA-FINE LUIS PEN NEEDLE) 32 gauge x 5/32 Use one needle daily for each insulin dose, 4 x's daily. Type 2 DM, insulin dependent. Lancets lancets Test blood sugar(s) one times daily. Dx: Type 2 DM - Uncontrolled E11.65 Insulin: Yes MEDICAL SUPPLY Hospital bed with rails. Blood-Glucose Meter 1 Device as directed. melatonin 3 mg tablet Take 1 tablet by mouth daily at bedtime. glucose (DEX4 GLUCOSE) 4 gram chewable tablet Take 4 tablets by mouth as needed. Lancing Device (LANCING DEVICE WITH LANCETS) [facility] [place] Use to check blood sugars as directed COMPOUNDED PRESCRIPTION Diabetic shoes: DIABETES MELLITUS- uncontrolled with neuropathy Syringe with Needle, Safety (BD INTEGRA) 3 mL 22 x 1 1/2 syrg Uses twice a month for testosterone injections Current Facility-Administered Medications on File Prior to Visit Medication perflutren lipid microspheres 1.3 mL in NaCl (PF) 0.9% 10 mL injection (DEFINITY) sodium chloride 0.9 % (flush) 10 mL (BD POSIFLUSH) REVIEW OF SYSTEMS: Cardiovascular: denies chest pain or pressure, palpitations. Admits to dizziness, lightheadedness Admits to baseline DE ANDA Denies edema Respiratory: denies cough GI: Denies pain, diarrhea or constipation. Denies bloody stools. Denies metallic taste or nausea/vomiting. Appetite is poor Genitourinary: denies frequency, pink or bloody urine or dysuria.Denies nocturia Does feel they empty bladder fully. Psychiatric: denies depression or anxiety. Reports energy level is fair PHYSICAL EXAM BP: BP 125/63 Pulse 64 Wt 68 kg (150 lb) BMI 22.15 kg/m BP - standardized method Pulse 1 BP #1: 123/63 Pulse #1: 65 beats/min 2 BP #2 : 126/63 Pulse #2 : 63 beats/min 3 BP #3 : 127/63 Pulse #3 : 63 beats/min Average Average BP: 125/63 Average Pulse: 64 beats/min Orthostatic vitals Supine Sitting Standing BP cuff location BP cuff size Comments for BP values First BP (right) First BP (left) Constitutional: No acute distress, Responsive, Thin, and Well-nourished Cardiovascular:No peripheral edema Regular rate and rhythm, normal S1 and S2, no murmurs Respiratory: Normal respiratory effort. Extremities: No peripheral edema Neurological: Alert and oriented x3. Psychiatric: Alert and oriented x self, place, time, and setting Normal mood/affect Pleasant- ?cognitive ability with medications and understanding of his kidney disease Diagnostic tests reviewed for today's visit Labs: Latest Ref Rng & Units 12/11/2024 2024 12/24/2024 RENAL KIDNEY STONE FLOWSHEET WBC 3.70 - 11.00 k/uL 5.39 7.47 6.09 HGB 13.0 - 17.0 g/dL 7.7 7.6 7.4 HCT 39.0 - 51.0 % 23.9 23.9 22.6 PLT 150 - 400 k/uL 222 212 176 Urine protein creatinine ratio 1.08 on 12/04/2024 Albumin creatinine ratio 2,431 on 12/13/2023 HgbA1c 5.3 on 09/24/2024 Uric acid No results found for this basename: URICACID on No results found for requested labs within last 3650 days. Kidney imaging: not on file. ASSESSMENT: Pt is an 69 year old male being seen today in [facility] for CKD with proteinuria likely in thesetting of diabetic nephropathy. PMH: DM, HTN, CVA, complete heart block, carotid stenosis, metabolic acidosis, iron deficient anemia and hyperlipidemia CKD Stage 5 with proteinuria likely in the setting of diabetic nephropathy Creatinine 4.56 on 12/04/2024 Above baseline Cystatin C completed in November 2024 was 3.31 and GFR 15, compared to renal panel same day of 4.56 and GFR 13 -Baseline serum creatinine 2.8- 3.1 mg/dL but trending up and now 3.1- 3.8mg/dL- he is nearing dialysis Urine protein creatinine ratio 1.08 on 12/04/2024 Albumin creatinine ratio 2,431 on 12/13/2023 On ARB Monoclonal gammopathy and compliments negative in November 2023 -does not like needles and doesn't want to have to go for dialysis 3 times per week at a facility. PD would be best option and he would want something done I have concerns that he could do PD at home alone -did have dialysis education and would do in center in [place] -has vein mapping and vascular appt for [address] HTN/Volume: - controlled on current regimen -Volume: euvolemic -Currently on HYDRALAZINE 50 MG TABLET Take 1 tablet by mouth every 8 hours. METOPROLOL SUCCINATE ER 100 MG TABLET,EXTENDED RELEASE 24 HR Take 1 tablet by mouth every morning. AMLODIPINE 10 MG TABLET Take 1 tablet by mouth once daily. LOSARTAN 25 MG TABLET TAKE 1 TABLET BY MOUTH DAILY BPH -on tamsulosin -follows with urology- last seen 2021 Metabolic/electrolytes: Hx metabolic acidosis K+- 4.8 on 12/04/2024 Co2- 20 on 12/04/2024 below goal Na+- 137 on 12/04/2024 On sodium bicarb 650mg bid- unsure if he's taking it but will check Anemia: Hx anemia, iron deficient -Hgb- 7.4 on 12/24/2024 below goal - following with hematology and getting aranesp and iron infusions -denies overt losses- denies hematuria or melena -continue to monitor along with iron stores to assess for need of PAULA. Metabolic Bone: Hx of vitamin D deficiency and hypervitaminosis -Ca+ 9.1 on 12/04/2024 -Phos: 3.9 on 12/04/2024 -Vitamin D: 119.0 on 04/30/2024 -PTH: 17 on 05/20/2024 CV/Lipids: -hx of hyperlipidemia -on statin -recommend LDL goal of <100 to prevent progression of CKD. DM: HgbA1c 5.3 on 09/24/2024- controlled -follow up with PCP/endo PLAN: We discussed your anemia: - You are receiving weekly injections to help improve your hemoglobin levels. Your hemoglobin is currently 7, which is still low, but your color and energy levels are improving. Please continue with the injections as they are helping. - When you go for your next injection on Monday, make sure they also perform the monthly blood work to monitor your anemia. I will call your sister, Renetta, with the results. - Continue taking your sodium bicarbonate as prescribed (one pill in the morning and one at night).If your lab results show a lower level, we may need to adjust the dose. We discussed your kidney function: - Your kidney function is currently at 15%. Dialysis is typically started when kidney function drops to around 10%, but we are not at that point yet. - You are scheduled for an ultrasound next week to evaluate where a dialysis access could be placedin your arm if needed in the future. This is a precautionary step, and we will not start dialysis unless it becomes necessary. - If dialysis is needed in the future, transportation assistance will be arranged to ensure you canattend the sessions. We discussed your diet and hydration: - Your appetite remains poor. You are currently receiving one meal per day through a meal delivery service. Please continue to eat additional meals at home as you are able. Your aide can assist with warming up meals. - You are drinking more water, which is a positive change. You reported drinking about four 8-ouncebottles of water each morning. Please continue to stay hydrated. We discussed your general health and mobility: - You are not experiencing chest pain, stomach pain, or blood in your stool. Please let me know if any of these symptoms develop. - You are using a cane and walker for mobility, which is appropriate given your history of a strokeand the brace on your left leg. Continue using these devices to prevent falls. - You are not experiencing swelling in your legs, which is a good sign. We discussed your upcoming appointments: - You have an appointment with Dr. West on Monday in [place]. Your [id number] and sister will accompany you. This appointment may include discussions about surgery, so it is good to have them there for support and to help with any questions. - Please keep your follow-up appointments with me every 2-3 months. Your next visit should be scheduled for March. If you have any new symptoms or concerns before your next visit, please contact our office. -Please get blood work monthly at [place] so we can check on kidney function- due next week -follow up with PCP, vascular and hematology as planned -Recommend BP goal of 130s/80 or less. Please contact the office if your blood pressure is less than 110/70 or higher than 150/90. Normal heart rate/pulse is 60-100 beats per minute. Please let us know if you are consistently less than 60 beats or over 100 beats when at rest. -Good diabetes, blood pressure and cholesterol control are important to prevent kidney disease progression -Continue to follow with your specialists including hematology and PCP as planned -Follow low salt diet. (1/2 tsp salt) <2 grams or 2000mg -Please watch your protein intake and limit it to 3 ounces of protein per meal -Recommend HgbA1c of 7 or less as CKD goal. -Please avoid Advil, Ibuprofen(Motrin), Aleve(Naproxen), Meloxicam(Mobic), diclofenac and other pain/arthritis medications called NSAIDS. It is ok to take acetaminophen (Tylenol) for pain as needed -Please avoid contrast dye with imaging. If a provider wants to order CT or MRI with contrast, please let them know you have decreased kidney function. -Increase activity as tolerated. Return in 2-3 months with labs monthly (standing orders in until May 2025) Janice Hodges CNP I spent a total of 39 minutes on the date of the service which included preparing to see the patient, [id number] patient care, completing clinical documentation, performing a medically appropriate examination, counseling and educating the patient/family/caregiver and ordering medications, tests, or procedures. Pt will need continued regular follow up (G2211) with nephrology documented [facility] Tele[facility] encounter Note* Telephone Encounter - Pan Vivar LPN - 01/01/2025 8:04 AM EDT Faxed paperwork to [employer] Pan Vivar LPN January 01, 2025 8:04 AM [facility]05-28-2025 Miscellaneous Notes* Telephone Encounter - Pan Vivar LPN - 01/01/2025 8:04 AM EDT Faxed paperwork to [employer] Pan Vivar LPN January 01, 2025 8:04 AM * Telephone Encounter - Pan Vivar LPN - 12/26/2024 1:06 PM EDT Paper work in nurse station ready to be faxed after office visit. Pan Vivar LPN December 26, 2024 1:06 PM * Telephone Encounter - Vera Manrique MD - 12/25/2024 4:48 PM EDT Thank you, I filed the orders Vera Evans MD * Telephone Encounter - Radha Santiago RN - 12/25/2024 1:33 PM EDT Spoke with pt's sister Graciela who states that they need to use [facility] in [place] on [address] to get pt's incontinence supplies. PH: [phone] Pt needs ER f/u appt so provider can document that pt is incontinent and has a wound on his buttocks from incontinence for insurance purposes. Appt set up for next Monday with Dr. Manrique. Sister Graciela aware. Once office note is complete, please fax that and all the information below to [facility]. For insurance to cover incontinence supplies, [employer] territory service representative Zoila states that there are several things needed to be faxed to whatever company pt's insurance requests. Pt's name/ Demographics sheet Copy of insurance card with name & policy number What item needed (order or prescription) including dx codes of why pt needs the item and what is causing the condition or problem. (incontinence & why pt is incontinent for diagnosis codes) Dx codes cannot say unspecified. Office note from provider with documentation of why pt needs the items and what it is from. Clear documentation that pt is incontinent. Documentation of pt's height and weight Length of need which is minimum of 3 months but prefer it to say needs for a year. * Telephone Encounter - Radha Santiago RN - 12/25/2024 11:53 AM EDT Pt's sister Graciela (Suki) returning the call and states pt is incontinent of both urine and stool. Dx codes added in addition to hemiparesis and hemiplegia following a stroke. Graciela is checking with pt's insurance to see where to send order for incontinence supplies as [employer] in [place] no longer does this. Called and spoke with someone at [employer] who says they have a [employer] company (Used to be [employer]) where an order can be faxed. * Telephone Encounter - Kari Yang MA - 12/25/2024 10:34 AM EDT Sister Suki will speak with entry level account manager and let us know. * Telephone Encounter - Vera Manrique MD - 12/24/2024 5:41 PM EDT He had soiled with bowel movement or urine? Need that for diagnosis. Regards, Vera Manrique MD * Telephone Encounter - Jaimie Dobbs LPN - 12/24/2024 3:46 PM EDT Pt's sister is calling to report that pt was in [facility] ER yesterday for bedsores. Sister reports that currently pt buys his own incontinence supplies but helper found him sitting soiled because pt did not think he had enough supplies to change. Sister is asking if provider can write an order for incontinence supplies/underwear. Sister reportspt would need 3-4 a day. Sister reports pt probably wears a small. Sister reports she does not know where to send the order. She said [facility] would be ok. Rx set to print to fax to [facility]. Rx will need a diagnosis code as to why pt is incontinent. Jaimie Dobbs LPN documented in this encounterBluffton [facility]05-27-2025 [facility]Day[facility]05-27-[facility] History of Present illness Narrative* Vera Manrique MD - 12/31/2024 4:35 PM EDT Reason for Visit Follow up ER visit SUSAN Moulton is a 69-year-old male with a history of diabetes mellitus, anemia, and renal insufficiency, presenting with a decubitus ulcer and fecal incontinence. Lou reports a decubitus ulcer that has been present for a couple of weeks. He attributes the ulcer to infrequent changing of adult briefs due to financial constraints, leading to prolonged exposureto soiled garments. He experiences fecal incontinence, stating that bowel movements occur unexpectedly without prior warning. He denies issues with urinary incontinence, stating he is aware of the need to urinate and can reach the restroom without difficulty. He is not currently under the care of awound healthcare applications analyst, but his aide is knowledgeable about dressing the ulcer. Lou reports good glycemic control, with a blood glucose level of 89 mg/dL this morning. He is no longer taking metformin but is on Lantus insulin, administered once daily. He mentions experiencing episodes of hypoglycemia. He is uncertain about the dosage of Lantus but believes it to be 20 units. Lou has a history of anemia and recently received an injection for this condition at a clinic in [place]. He is under the care of a concrete block maker for renal insufficiency and is uncertain about the need for dialysis. Social History Tobacco Use Smoking status: Former Types: Cigars Quit date: 1994 Years since quittin.4 Smokeless tobacco: Never Vaping Use Vaping status: Never Used Substance Use Topics Alcohol use: Not Currently Drug use: Never Past medical history, appointments, medications, allergies reviewed. Pertinent Lab/Diagnostic Studies are reviewed and discussed today Current Outpatient Medications: Diaper,Brief, Adult,Disposable (UNDERWEAR) traZODone (DESYREL) 50 mg tablet Senna 8.6 mg tab sodium bicarbonate 650 mg tablet losartan (COZAAR) 25 mg tablet amLODIPine (NORVASC) 10 mg tablet tamsulosin (FLOMAX) 0.4 mg atorvastatin (LIPITOR) 80 mg tablet metoprolol succinate ER (TOPROL XL) 100 mg alcohol swabs (ALCOHOL PREP PADS) aspirin, enteric coated (ADULT LOW DOSE ASPIRIN) 81 mg EC tablet hydrALAZINE (APRESOLINE) 50 mg tablet DAILY-YOUSUF, WITH FOLIC ACID, 400 mcg clopidogrel (PLAVIX) 75 mg tablet insulin glargine (LANTUS SOLOSTAR U-100 INSULIN) 100 unit/mL (3 mL) blood sugar diagnostic (BLOOD GLUCOSE TEST) test strip insulin lispro (HUMALOG KWIKPEN INSULIN) 100 unit/mL Insulin Kingston, Disposable, (BD ULTRA-FINE LUIS PEN NEEDLE) 32 gauge x 5/32 Lancets lancets MEDICAL SUPPLY Blood-Glucose Meter melatonin 3 mg tablet glucose (DEX4 GLUCOSE) 4 gram chewable tablet Lancing Device (LANCING DEVICE WITH LANCETS) misc COMPOUNDED PRESCRIPTION Syringe with Needle, Safety (BD INTEGRA) 3 mL 22 x 1 1/2 syrg Diaper,Brief, Adult,Disposable (DEPEND UNDERWEAR FOR MEN VERONIQUE) Health Maintenance RSV Vaccine(1 - Risk 60-74 years 1-dose series) Colorectal Cancer Screening BP Controlled (<130/80) Advance Directive Discussion Prostate Cancer Screening Discussion@ Review Of Systems Constitutional: (No current symptoms mentioned) Head: (No current symptoms mentioned) Eyes: (No current symptoms mentioned) Ears/Nose/Mouth/Throat: (No current symptoms mentioned) Neck: (No current symptoms mentioned) Cardiovascular: (No current symptoms mentioned) Respiratory: (No current symptoms mentioned) Gastrointestinal: (+) fecal incontinence Genitourinary: (+) urinary incontinence Musculoskeletal: (No current symptoms mentioned) Skin: (+) pressure sore Neurological: (No current symptoms mentioned) Psychiatric: (No current symptoms mentioned) Endocrine: (No current symptoms mentioned) Hematologic/Lymphatic: (No current symptoms mentioned) Physical Exam BP 137/70 Pulse 66 Ht 175.3 cm (5' 9) Wt 67.4 kg (148 lb 9.4 oz) SpO2 98% BMI 21.94 kg/m GENERAL: NAD, alert and oriented SKIN: stage 2 pressure ulcer on the left buttock cheek around 0.7 mm. No slough present HEAD: Normocephalic EYES: PERRLA, EOMI, conjunctiva clear EARS: External ears normal, canals clear, TM's normal. NOSE/SINUSES: Nares normal. Septum midline. OROPHARYNX: Lips, mucosa, and tongue normal, good dentition. No oral lesions noted. NECK: Supple, no lymphadenopathy, normal thyroid, no carotid bruits. LUNGS: Clear to auscultation bilaterally, no wheezes/rhonchi/rales. HEART: Regular rate and rhythm, no murmurs. No ectopy. EXTREMITIES: Normal, no deformities, no skin discoloration, no edema. NEURO: Awake, alert and oriented x3, cranial nerves II-XII grossly intact, normal gait, no involuntary motions Labs: - (Today) Blood glucose: 89 mg/dL - Hemoglobin A1c: <10 - CBC: Anemia - Renal function tests: Markedly reduced kidney function Assessment and Plan 1. Diarrhea, unspecified type (R19.7) Incontinence of feces, unspecified fecal incontinence type (R15.9) Experiencing frequent bowel movements without prior warning. No longer on Metformin, which could have contributed to diarrhea. - Monitor bowel movements and ensure regular changing of adult briefs to prevent skin breakdown. 2. Urinary incontinence, unspecified type (R32) Patient reports awareness of the need to urinate but experiences episodes of incontinence. Likely related to difficulty in mobilization and reaching the restroom in time. - Ordered adult briefs, size medium, 4 per day to manage incontinence and prevent skin breakdown. 3. Hemiplegia and hemiparesis 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 side ([facility]) (I69.354) Chronic condition contributing to mobility issues and incontinence. - Continue current management and support for mobility. 4. Type 2 diabetes mellitus with stage 3b chronic kidney disease, with long-term current use of insulin ([facility]) (E11.22) Blood glucose levels reportedly well-controlled; recent reading of 89 mg/dL. Patient is on Lantus insulin once daily. - Referred to pharmacist for diabetes management to optimize insulin dosing and prevent hypoglycemic episodes. 5. Pressure injury of buttock, stage 1, unspecified laterality (L89.301) Stage 1 pressure injury observed on the buttock, likely due to prolonged exposure to moisture from incontinence. - Home health aide to perform regular dressing changes as per provided instructions. - Ensure frequent changing of adult briefs to keep the area dry. 6. Chronic kidney disease, stage 5 ([facility]) (N18.5) Severe renal impairment; patient under nephrology care and receiving treatment in [place]. - Continue follow-up with concrete block maker. - Discuss potential initiation of dialysis with nephrology team. 7. Anemia in chronic kidney disease, unspecified CKD stage (N18.9) Chronic anemia secondary to CKD; patient receiving erythropoiesis-stimulating agent injections in [place]. - Monitor hemoglobin levels and continue current treatment regimen. Voice recognition software was used to compose this office note. Please excuse any unintended typographical errors. Recording using [employer] software for draft documentation of the visit was discussed with the patient/authorized territory service representative; all questions welcomed and answered. Patient/authorized territory service representative agreed to proceed Vera Manrique MD documented in this encounterBluff[facility] Hospital05-27-[facility]25 Instructions* Patient Instructions* Vera Manrique MD - 12/31/2024 4:19 PM EDT We discussed your bed sore: - Your aide will continue to manage the dressing for your bed sore following the provided instructions. - Please monitor the sore for any signs of worsening, such as increased redness, swelling, or drainage, and let us know if this occurs. We discussed your use of adult briefs: - I have written a prescription for adult briefs (size medium) to be used 4 times a day (120 briefsper month with 3 refills). This will help you change them more frequently and prevent further skin issues. - My team will work on sending this order to a medical supply store near [facility]. We discussed your diabetes: - Your blood sugar levels are currently well-controlled, with a reading of 89 this morning. - Continue taking your Lantus (insulin) once daily as prescribed. - I will send a referral to a pharmacist to help you manage your diabetes and address any issues with low blood sugar. We discussed your anemia: - You have been anemic for some time. You mentioned receiving a shot for this recently in [place]. Please continue following up with your providers there for ongoing management. We discussed your kidney function: - Your kidney function is significantly impaired, and you are under the care of a concrete block maker. - You may need dialysis soon, depending on your concrete block maker's recommendations. Please continue attending your nephrology appointments. Follow-Up: - Please follow up with your concrete block maker as scheduled to address your kidney function and potential dialysis. - Let us know if you experience any new or worsening symptoms, such as swelling, fatigue, or changes in urination. documented in this encounterBluffton Hospital05-27-2025 [facility] History of Present illness Narrative* Sayda Moreno LPN - 12/31/2024 2:14 PM EDT Patient presents with: Imm/Inj Pt is identified by name and birthdate: Yes. Allergies and medications reviewed. Latex allergy? No. Does this patient have: Unplanned weight loss or gain of greater than 10 pounds, or a change of appetite over the last year? No Does the patient have any concerns about safety in the home/falls? Not at risk for falls Has the patient fallen in the past year? No Does the patient have difficulty performing or completing routine daily living activities? No Does this patient have concerns about personal safety? No Is patient having pain? Pain: No=0 (pain 0 on a scale of 0-10). Health Maintenance: Reviewed and updated. Does patient have MyChart access or Caregiver proxy: yes Pt/Caregiver willingness and readiness to learn assessed: Yes. Barriers: none aranesp injection administered,right arm, tolerated well, no immediate adverse reactions noted. Sayda Moreno LPN documented in this encounterBluffton Hospital05-22-2025 Telephone encounter Note * Telephone Encounter - Pan Vivar LPN - 12/26/2024 1:06 PM EDT Paper work in nurse station ready to be faxed after office visit. Pan Vivar LPN December 26, 2024 1:06 PM [facility]05-21-2025 Telephone encounter Note* Telephone Encounter - Vera Manrique MD - 12/25/2024 4:48 PM EDT Thank you, I filed the orders Vera Evans MD [facility]05-21-2025 Telephone encounter Note* Telephone Encounter - Radha Santiago RN - 12/25/2024 1:33 PM EDT Spoke with pt's sister Graciela who states that they need to use [facility] in [place] on [facility] to get pt's incontinence supplies. PH: [phone] Pt needs ER f/u appt so provider can document that pt is incontinent and has a wound on his buttocks from incontinence for insurance purposes. Appt set up for next Monday with Dr. Manrique. Sister Graciela aware. Once office note is complete, please [facility] For insurance to cover incontinence supplies, [employer] territory service representative Zoila states that there are several things needed to be faxed to whatever company pt's insurance requests. Pt's name/ Demographics sheet Copy of insurance card with name & policy number What item needed (order or prescription) including dx codes of why pt needs the item and what is causing the condition or problem. (incontinence & why pt is incontinent for diagnosis codes) Dx codes cannot say unspecified. Office note from provider with documentation of why pt needs the items and what it is from. Clear documentation that pt is incontinent. Documentation of pt's height and weight Length of need which is minimum of 3 months but prefer it to say needs for a year. [facility]05-21-2025 Telephone encounter Note* Telephone Encounter - Radha Santiago RN - 12/25/2024 11:53 AM EDT Pt's sister Graciela (Suki) returning the call and states pt is incontinent of both urine and stool. Dx codes added in addition to hemiparesis and hemiplegia following a stroke. Graciela is checking with pt's insurance to see where to send order for incontinence supplies as [employer] in [place] no longer does this. Called and spoke with someone at [employer] who says they have a [employer] company (Used to be [employer]) where an order can be faxed. [facility]05-21-2025 Telephone encounter Note* Telephone Encounter - Kari Yang MA - 12/25/2024 10:34 AM EDT Sister Suki will speak with entry level account manager and let us know. [facility]05-20-2025 Telephone encounter Note* Telephone Encounter - Vera Manrique MD - 12/24/2024 5:41 PM EDT He had soiled with bowel movement or urine? Need that for diagnosis. Regards, Vera Manrique MD [facility]05-20-2025 Telephone encounter Note* Telephone Encounter - Jaimie Dobbs LPN - 12/24/2024 3:46 PM EDT Pt's sister is calling to report that pt was in [facility] ER yesterday for bedsores. Sister reports that currently pt buys his own incontinence supplies but helper found him sitting soiled because pt did not think he had enough supplies to change. Sister is asking if provider can write an order for incontinence supplies/underwear. Sister reportspt would need 3-4 a day. Sister reports pt probably wears a small. Sister reports she does not know where to send the order. She said [facility] would be ok. Rx set to print to fax to [facility]. Rx will need a diagnosis code as to why pt is incontinent. Jaimie Dobbs LPN [facility]05-13-2025 Telephone encounter Note* Telephone Encounter - Jeane Braswell - 12/17/2024 2:53 PM EDT Scheduled [facility] Work Phone: 1(720) 581-209505-13-2025 Miscellaneous Notes* Telephone Encounter - Jeane Braswell - 12/17/2024 2:53 PM EDT Scheduled * Telephone Encounter - Nini Freire DO - 12/17/2024 1:30 PM EDT Aranesp planned in [place]. Nini Freire DO * Telephone Encounter - Lisa Patel - 12/17/2024 10:54 AM EDT Please file order for scheduling purposes, order was dc on 12/12. Lisa Patel * Telephone Encounter - Adrianna Gonzalez LPN - 12/16/2024 4:20 PM EDT PSS- please make sure Aranesp gets scheduled as soon as iron is completed. Adrianna Gonzalez LPN * Telephone Encounter - Adrianna Gonzalez LPN - 12/12/2024 11:16 AM EDT He can start Aranesp once iron is completed. Adrianna Gonzalez LPN * Telephone Encounter - Jeane Braswell - 12/12/2024 11:09 AM EDT Renetta returned call and scheduled appointments for patient. Start email sent. Please advise when patient can start Aranesp. * Telephone Encounter - Adrianna Gonzalez LPN - 12/12/2024 10:49 AM EDT From note below- He will require 5 doses of iron sucrose before starting Aranesp. CBC with possibletransfusion at the 3rd and 5th dose of iron. Then OV/CBC/iron studies with Octavio about 4 weeks after completing iron. * Telephone Encounter - Brenda Bustamante - 12/12/2024 10:06 AM EDT Called and spoke with Renetta she will call back to schedule Brenda Bustamante * Telephone Encounter - Jeane Braswell - 12/12/2024 9:39 AM EDT [facility] 12/11/24 Schedule to start CBC/Aranesp weekly as soon as approved. M/T ARE BEST ANYTIME * Telephone Encounter - Adrianna Gonzalez LPN - 12/12/2024 9:21 AM EDT I called and left patient's sister, Suki (Renetta), a message to contact the office. Adrianna Gonzalez LPN * Telephone Encounter - Nini Freire DO - 12/12/2024 8:20 AM EDT Let his sister know that his iron levels are too low for his degree of kidney failure. As discussedat yesterday's office visit, he will require 5 doses of iron sucrose before starting Aranesp. CBC with possible transfusion at the 3rd and 5th dose of iron. Then OV/CBC/iron studies with Octavio about 4 weeks after completing iron. Nini Freire DO documented in this encounterBluffton Hospital05-13-2025 Telephone encounter Note * Telephone Encounter - Nini Freire DO - 12/17/2024 1:30 PM EDT Aranesp planned in [place]. Nini Freire DO [facility]05-13-2025 Telephone encounter Note* Telephone Encounter - Lisa Patel - 12/17/2024 10:54 AM EDT Please file order for scheduling purposes, order was dc on 12/12. Lisa Patel [facility]05-12-2025 Telephone encounter Note* Telephone Encounter - Adrianna Gonzalez LPN - 12/16/2024 4:20 PM EDT PSS- please make sure Aranesp gets scheduled as soon as iron is completed. Adrianna Gonzalez LPN [facility]05-12-2025 Telephone encounter Note* Telephone Encounter - Brittnee Chapman RN - 12/16/2024 1:15 PM EDT The patient has been identified by name and date of : Yes Caregiver verified no other encounters exist for this prescription request: Yes Caregiver confirmed with patient/requestor that no other refills are due, in the near future, with this provider at this time: Yes The last office visit in the department: 10/08/2024 Does the patient have a future office visit with this provider/department: to be scheduled Requested Prescriptions Pending Prescriptions Disp Refills traZODone (DESYREL) 50 mg tablet 60 tablet 5 Sig: Take 1-2 tablets by mouth daily at bedtime. Brittnee Chapman RN [facility]05-12-2025 Miscellaneous Notes* Telephone Encounter - Brittnee Chapman RN - 12/16/2024 1:15 PM EDT The patient has been identified by name and date of : Yes Caregiver verified no other encounters exist for this prescription request: Yes Caregiver confirmed with patient/requestor that no other refills are due, in the near future, with this provider at this time: Yes The last office visit in the department: 10/08/2024 Does the patient have a future office visit with this provider/department: to be scheduled Requested Prescriptions Pending Prescriptions Disp Refills traZODone (DESYREL) 50 mg tablet 60 tablet 5 Sig: Take 1-2 tablets by mouth daily at bedtime. Brittnee Chapman RN documented in this encounterBluffton Hospital05-08-2025 Telephone encounter Note * Telephone Encounter - Adrianna Gonzalez LPN - 12/12/2024 11:16 AM EDT He can start Aranesp once iron is completed. Adrianna Gonzalez LPN [facility]05-08-2025 Telephone encounter Note* Telephone Encounter - Jeane Braswell - 12/12/2024 11:09 AM EDT Renetta returned call and scheduled appointments for patient. Start email sent. Please advise when patient can start Aranesp. [facility]05-08-2025 Telephone encounter Note* Telephone Encounter - Rema Ness RN - 12/12/2024 11:00 AM EDT Pt reports Matilda does not have adult briefs. Asking pcp to send Rx to [facility], and asking provider to write a note on the Rx asking [facility] to mail them to him. Pended and added note to pharmacy. [facility]05-08-2025 Miscellaneous Notes* Telephone Encounter - Rema Ness RN - 12/12/2024 11:00 AM EDT Pt marino Grey does not have adult briefs. Asking pcp to send Rx to [facility], and asking provider to write a note on the Rx asking DDM Claude to mail them to him. Pended and added note to pharmacy. documented in this encounterBluffton Hospital05-08-2025 Telephone encounter Note * Telephone Encounter - Adrianna Gonzalez LPN - 12/12/2024 10:49 AM EDT From note below- He will require 5 doses of iron sucrose before starting Aranesp. CBC with possibletransfusion at the 3rd and 5th dose of iron. Then OV/CBC/iron studies with Octavio about 4 weeks after completing iron. [facility]05-08-2025 Telephone encounter Note* Telephone Encounter - Brenda Bustamante - 12/12/2024 10:06 AM EDT Called and spoke with Renetta she will call back to robert Bustamante [facility]05-08-2025 Telephone encounter Note* Telephone Encounter - Jeane Braswell - 12/12/2024 9:40 AM EDT added to 12/12 te [facility] Work Phone: 1(166) 682-560405-08-2025 Miscellaneous Notes* Telephone Encounter - Jeane Braswell - 12/12/2024 9:40 AM EDT added to 12/12 te * Telephone Encounter - Lisa Patel - 12/11/2024 12:03 PM EDT [facility] 12/11/24 Schedule to start CBC/Aranesp weekly as soon as approved. M/T ARE BEST ANYTIME Lisa Patel documented in this encounterBluffton Hospital05-08-2025 Telephone encounter Note * Telephone Encounter - Jeane Braswell - 12/12/2024 9:39 AM EDT [facility] 12/11/24 Schedule to start CBC/Aranesp weekly as soon as approved. M/T ARE BEST ANYTIME [facility]05-08-2025 Telephone encounter Note* Telephone Encounter - Adrianna Gonzalez LPN - 12/12/2024 9:21 AM EDT I called and left patient's sister, Suki (Renetta), a message to contact the office. Adrianna Gonzalez LPN [facility]05-08-2025 Telephone encounter Note* Telephone Encounter - Nini Freire DO - 12/12/2024 8:20 AM EDT Let his sister know that his iron levels are too low for his degree of kidney failure. As discussedat yesterday's office visit, he will require 5 doses of iron sucrose before starting Aranesp. CBC with possible transfusion at the 3rd and 5th dose of iron. Then OV/CBC/iron studies with Octavio about 4 weeks after completing iron. Nini Freire DO [facility]05-07-2025 Telephone encounter Note* Telephone Encounter - Lisa Patel - 12/11/2024 12:03 PM EDT [facility] 12/11/24 Schedule to start CBC/Aranesp weekly as soon as approved. M/T ARE BEST ANYTIME Lisa Patel [facility]05-07-2025 [facility]Day[facility] History of Present illness Narrative* Nini Freire DO - 12/11/2024 11:31 AM EDT Hematologic problem(s): 1) Anemia due to CKD. HPI: The patient is a 68-year-old male with a past medical history significant for type 2 diabetes with polyneuropathy, paroxysmal SVT, pacemaker-ICD, hypertension, hypercholesterolemia, psoriasis, contact dermatitis, lumbar spondylosis, lumbar degenerative disc disease, low back pain, iron deficiency anemia,? DVT and CKD. Hospitalized at [facility] mid June for abdominal pain. Significant increase in serum Cr over baseline. Received hydration. Hemoglobin 8.2 g/dL on presentation 06/29. Serum creatinine was 3.35 mg/dL. Calcium was 8.4 mg/dL. Serum iron was 50 mcg/dL (reference range 65 to 175 mcg/dL). TIBC 210 mcg/dL. (Reference range 250 to 450 mcg/dL). Ferritin was 128 ng/mL. Total serum protein was 6 g/dL. On EGD was found to have reflux esophagitis with no bleeding. There was a mild Schatzki's ring thatwas dilated. Medium size hiatal hernia. There was hematin (altered blood/fqmjyz-wxgbsj-zlhk material) in the gastric body. Granular gastric mucosa that was biopsied. Granular mucosa in the duodenal bulb. There were oozing duodenal ulcers with pigmented material. Treated with argon plasma coagulation. On colonoscopy prep was poor. Moderate diverticulosis was observed in the rectosigmoid colon and sigmoid colon. There were five 1 to 2 mm polyps in the sigmoid colon removed using injection lift and hot snare. One 5 mm polyp in the transverse colon. Stool was observed in the rectum, rectosigmoid, sigmoid at the splenic flexure hepatic flexure and ascending colon as well as cecum. Blood transfusion was not administered. Also had CT of the abdomen pelvis on 06/29/2023. He had bilateral punctate nonobstructing renal stones. Cholelithiasis without CT evidence of acute cholecystitis. There is diverticulosis without CT evidence of acute diverticulitis. Normal appendix. Diffuse atherosclerosis. Degenerative changes. Initial consultation: Endorses poor appetite. No reflux or nausea. Bowels have been moving. Stools formed. No black or bloody stools. Left foot drop with brace. Hand numbness bilaterally. He did not follow-up for further workup. Referred back for anemia. Hemoglobin has been stable over the last year. Serum creatinine worse. Presents for ongoing hematologic management. Interim history: Very fatigued. Denies dyspnea with ambulation. Getting ready for dialysis. Denies black or bloody stools. 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 Dyslipidemia Embolism and thrombosis of unspecified site 04/25/2008 Essential hypertension, benign Family history of malignant neoplasm of gastrointestinal tract Non-proliferative diabetic retinopathy, mild, both eyes (HCC) 10/11/2017 Non-proliferative diabetic retinopathy, moderate, both eyes (HCC) 10/14/2019 Other specific developmental learning difficulties Pneumonia 07/07/2015 Dx at [facility] ER Psoriasis and similar disorders Pure hypercholesterolemia Pure hyperglyceridemia Right thalamic infarction (HCC) 02/18/2019 [facility] Stenosis of carotid artery Stroke ([facility]) Tietze's disease Tinea unguium 12/01/2017 Type II or unspecified type diabetes mellitus with neurological manifestations, not stated as uncontrolled(250.60) PAST SURGICAL HISTORY Procedure Laterality Date COLONOSCOPY 08/23/2023 Dr. Javier, [facility] COLONOSCOPY FLX DX W/COLLJ SPEC WHEN PFRMD 2017 repeat 3 years COLONOSCOPY SCREENING 06/22/2023 Dr. Javier, [facility] EGD W/O [facility] SPEC VARICIES INJ 06/22/2023 Dr. Javier, [facility] ESOPHAGOGASTRODUODENOSCOPY TRANSORAL DIAGNOSTIC 2017 EGD LAPAROSCOP GASTRIC BYPASS N/A NEUROPLASTY &/TRANSPOS MEDIAN NRV CARPAL TUNNE 05/08/2012 Carpal tunnel decomp right PACEMAKER 03/04/2019 PAST SURGICAL HISTORY OF EGD PAST SURGICAL HISTORY OF Colonsocopy ALLERGIES Allergen Reactions Lopid [Gemfibrozil] Diarrhea Metformin Diarrhea Current Outpatient Medications Medication Sig Senna 8.6 mg tab Take 1 tablet by mouth three times a day as needed. sodium bicarbonate 650 mg tablet TAKE 1 TABLET BY MOUTH TWICE A DAY losartan (COZAAR) 25 mg tablet TAKE 1 TABLET BY MOUTH DAILY amLODIPine (NORVASC) 10 mg tablet Take 1 tablet by mouth once daily. tamsulosin (FLOMAX) 0.4 mg Take 1 capsule by mouth daily at bedtime. atorvastatin (LIPITOR) 80 mg tablet Take 1 tablet by mouth every morning. metoprolol succinate ER (TOPROL XL) 100 mg Take 1 tablet by mouth every morning. aspirin, enteric coated (ADULT LOW DOSE ASPIRIN) 81 mg EC tablet Take 1 tablet by mouth every morning. hydrALAZINE (APRESOLINE) 50 mg tablet Take 1 tablet by mouth every 8 hours. DAILY-YOUSUF, WITH FOLIC ACID, 400 mcg Take 1 tablet by mouth once daily. traZODone (DESYREL) 50 mg tablet Take 1-2 tablets by mouth daily at bedtime. clopidogrel (PLAVIX) 75 mg tablet Take 1 tablet by mouth once daily. insulin glargine (LANTUS SOLOSTAR U-100 INSULIN) 100 unit/mL (3 mL) Inject 20 Units subcutaneously every morning. insulin lispro (HUMALOG KWIKPEN INSULIN) 100 unit/mL Inject 2 Units subcutaneously three times a day before meals. melatonin 3 mg tablet Take 1 tablet by mouth daily at bedtime. glucose (DEX4 GLUCOSE) 4 gram chewable tablet Take 4 tablets by mouth as needed. Diaper,Brief, Adult,Disposable (DEPEND UNDERWEAR FOR MEN SM-MD) 1 Each as needed. alcohol swabs (ALCOHOL PREP PADS) Apply 1 application to affected area TID with insulin injection blood sugar diagnostic (BLOOD GLUCOSE TEST) test strip Test blood sugar(s) three times daily. Dx: Type 2 DM - Uncontrolled E11.65 Insulin: Yes Insulin [place], Disposable, (BD ULTRA-FINE LUIS PEN NEEDLE) 32 gauge x 32 Use one needle daily for each insulin dose, 4 x's daily. Type 2 DM, insulin dependent. Lancets lancets Test blood sugar(s) one times daily. Dx: Type 2 DM - Uncontrolled E11.65 Insulin: Yes MEDICAL SUPPLY Hospital bed with rails. Blood-Glucose Meter 1 Device as directed. Lancing Device (LANCING DEVICE WITH LANCETS) misc Use to check blood sugars as directed COMPOUNDED PRESCRIPTION Diabetic shoes: DIABETES MELLITUS- uncontrolled with neuropathy Syringe with Needle, Safety (BD INTEGRA) 3 mL 22 x 1 1/2 syrg Uses twice a month for testosterone injections No current facility-administered medications for this visit. 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 Family History Problem Relation Age of Onset Stroke Mother Hypertension Mother Colon Cancer Mother Heart Father [place] Diabetes Sister No Known Problems Brother No Known Problems Brother No Known Problems Brother Diabetes Maternal Grandmother No Known Problems Maternal Grandfather No Known Problems Paternal Grandmother No Known Problems Paternal Grandfather Mother in her 60s from lymph node cancer. He is not aware if she had a h/o colon cancer or not. ROS: Constitutional: No fever. No drenching night sweats. Neuro: Noted for headache and dizziness.. HEENT: No recent change in voice, vision or hearing. Resp: No cough, wheeze of hemoptysis. No shortness of breath at rest. Occasional DE ANDA. CVS: No exertional chest pain, PND or orthopnea. No extremity swelling/edema. GI: No dysphagia or odynophagia. : No dysuria or gross hematuria. Endo: No hot flashes. No polyuria or polydipsia. No heat or cold intolerance. Musculoskeletal: Denies bone, back, joint and muscular pain. Derm: No current rash. No history of jaundice. No diffuse pruritis. Heme: No unusual bleeding and unexplained bruising. Psych: Normal mood. PHYSICAL EXAM: Vitals: Blood pressure 120/62, pulse 64, temperature (!) 35.8 C (96.4 F), temperature source Temporal, weight 69.2 kg (152 lb 8 oz), SpO2 99%. Pale and thin-in no acute distress. EYES: Sclerae are anicteric bilaterally. No enlarged tongue. LYMPHATIC: There is no palpable cervical or supraclavicular or axillary adenopathy. RESPIRATORY: Inspiratory breath sounds are of normal intensity in all patel. No rales, wheezes or rhonchi. CARDIOVASCULAR: Rhythm is regular. ABDOMEN: The abdomen is nondistended. No splenomegaly or hepatomegaly. Suprapubic tenderness. Extremities: No swelling or edema. SKIN: No jaundice. ASSESSMENT/PLAN: (N18.5, D63.1) Anemia associated with stage 5 chronic renal failure (HCC) (primary encounter diagnosis) Assessment: -The patient is a 68-year-old male with past medical history as outlined above. Iron was low for degree of renal insufficiency. - Reviewed his previous laboratory workup with him and his brother in detail. No evidence of monoclonal protein in the serum and 24-hour urine collection. Serum light chains and ratio elevated but consistent with GFR. He has diabetic nephropathy and is a candidate for PAULA therapy. Explained that iron studies are in the process of being repeated. If indicated, he will require parenteral iron replacement before beginning PAULA therapy. Plan: - Follow-up on results of today's iron studies. - Anticipate beginning PAULA treatment next week if does not require parenteral iron. Portions of this documentation were copied and pasted from my previous office visit note dated 03/08/2024 in order to provide a cohesive continuity of the history. The note has been reviewed and editedand updated as necessary. I spent a total of 30 minutes on the date of the service which included preparing to see the patient, [id number] patient care, completing clinical documentation, counseling and educating the patient/family/caregiver, ordering medications, tests, or procedures, communicating with other HCPs (not separately reported), and communicating results to the patient/family/caregiver. Nini Freire DO documented in [facility]04-29-[facility]25 Telephone encounter Note * Telephone Encounter - Brenda Bustamante - 12/03/2024 12:46 PM EDT Spoke with Renetta and scheduled labs on 12/04 and ov on 12/11 Brenda Bustamante [facility]04-29-2025 Miscellaneous Notes* Telephone Encounter - Brenda Bustamante - 12/03/2024 12:46 PM EDT Spoke with Renetta and scheduled labs on 12/04 and ov on 12/11 Brenda Bustamante * Telephone Encounter - Nini Freire DO - 12/03/2024 11:28 AM EDT Schedule him for CBC/iron studies then OV with me when able. Nini Freire DO * Telephone Encounter - Adrianna Gonzalez LPN - 12/03/2024 10:39 AM EDT From Janice Hodges APRN.HELIARC WELDER- Very anemic- should continue to follow with hematology. I continue to recommend GI testing as recommended by hematology to see where he may be losing blood in addition (in part it's from low kidney function, but needs additional GI testing as well) * Telephone Encounter - Jeane Braswell - 12/03/2024 10:34 AM EDT Renetta called stating a provider regarding kidney informed her to contact our office regarding recent lab results (ccf). States patient may need iron. Please review and advise Renetta. documented in this encounterBluff[facility]04-29-2025 Telephone encounter Note * Telephone Encounter - Nini Freire DO - 12/03/2024 11:28 AM EDT Schedule him for CBC/iron studies then OV with me when able. Nini Freire DO [facility]04-29-2025 Telephone encounter Note* Telephone Encounter - Adrianna Gonzalez LPN - 12/03/2024 10:39 AM EDT From Janice Hodges APRN.HELIARC WELDER- Very anemic- should continue to follow with hematology. I continue to recommend GI testing as recommended by hematology to see where he may be losing blood in addition (in part it's from low kidney function, but needs additional GI testing as well) [facility]04-29-20[facility] Telephone encounter Note* Telephone Encounter - Jeane Braswell - 12/03/2024 10:34 AM EDT Renetta called stating a provider regarding kidney informed her to contact our office regarding recent lab results (ccf). States patient may need iron. Please review and advise Renetta. [facility] Work Phone: 1(595) 484-312004-29-2025 Telephone encounter Note* Telephone Encounter - Jane Aparicio - 12/03/2024 10:33 AM EDT Mailed patient appointment information as requested. Encounter closed. [facility] Work Phone: 1(519) 286-679604-29-2025 Miscellaneous Notes* Telephone Encounter - Jane Aparicio - 12/03/2024 10:33 AM EDT Mailed patient appointment information as requested. Encounter closed. * Telephone Encounter - Jane Aparicio - 12/03/2024 10:32 AM EDT ----- Message from Jeane Obregon RN sent at 11/26/2024 4:28 PM EDT ----- Regarding: RE: [facility] access Sisters phone number [phone] ----- Message ----- From: Jane Aparicio Sent: 11/26/2024 3:16 PM EDT To: Jeane Seals RN Subject: FW: Vasc access ----- Message ----- From: Carline Cason RN Sent: 11/26/2024 2:41 PM EDT To: Jane Jalloh Pss Subject: Vasc access Hi Jane A referral was placed for a Vascular consult for Mr Julien. If you could please reach out to the sister (Mrs Lerma) & assist her with scheduling the appointment in [place], we would appreciate that. They need a Monday or a Monday, please. The pt has some cognitive issues, so please call the sister. Let me know if you have any questions/concerns or if I can assist you with anything. Thank you, Carline. documented in this encounterBluffton Hospital04-29-2025 Telephone encounter Note * Telephone Encounter - Jane Aparicio - 12/03/2024 10:32 AM EDT ----- Message from Jeane Obregon RN sent at 11/26/2024 4:28 PM EDT ----- Regarding: RE: Vasc access [facility] phone number [phone] ----- Message ----- From: Jane Aparicio Sent: 11/26/2024 3:16 PM EDT To: Jeane Seals RN Subject: FW: Vasc access ----- Message ----- From: Carline Cason RN Sent: 11/26/2024 2:41 PM EDT To: Jane Hayes Subject: Vasc access Hi Jane A referral was placed for a Vascular consult for Mr Julien. If you could please reach out to the sister (Mrs Lerma) & assist her with scheduling the appointment in [place], we would appreciate that. They need a Monday or a Monday, please. The pt has some cognitive issues, so please call the sister. Let me know if you have any questions/concerns or if I can assist you with anything. Thank you, Carline. [facility]04-22-2025 Telephone encounter Note* Telephone Encounter - Carline Cason RN - 11/26/2024 1:12 PM EDTSummary: Pt update Spoke with Mrs Lerma, pt's sister. Informed her of pt's current kidney function. Discussed symptoms of uremia in which she states pt is not having these symptoms. Willing to take pt to Vasc appt for access but hopes to find a Provider in [place] as that is much closer than [place]. She does not have access to pt's MyChart so she requested that I text the next Kidney Med appt date& time to her. This has been completed. Will check with Kidney Med Provider for a Vasc referralin [place]. Carline Cason RN [facility]04-22-2025 Miscellaneous Notes* Telephone Encounter - Carline Cason RN - 11/26/2024 1:12 PM EDTSummary: Pt update Spoke with Mrs Lerma, pt's sister. Informed her of pt's current kidney function. Discussed symptoms of uremia in which she states pt is not having these symptoms. Willing to take pt to Vasc appt for access but hopes to find a Provider in [place] as that is much closer than [place]. She does not have access to pt's MyChart so she requested that I text the next Kidney Med appt date& time to her. This has been completed. Will check with Kidney Med Provider for a Vasc referralin [place]. Carline Cason RN * Telephone Encounter - Carline Cason RN - 11/26/2024 11:56 AM EDTSummary: Pt update CKD SPECIALIZED COORDINATION QUICK NOTE Provider Action/FYI Telephone call Patient identified by name and date : Yes Brief call with sister as she stated that she was installing smoke detectors & requested that Icall back @ a later time. Arrangements made for a call @ a later time today. Carline Cason RN * Telephone Encounter - Carline Cason RN - 11/26/2024 11:56 AM EDT ----- Message from Janice Hodges APRN.HELIARC WELDER sent at 11/26/2024 11:47 AM EDT ----- Hi Carline Can you call his sister please. She seems to think he needs to start dialysis. Not sure what she isbasing this on, but if you could check please. His GFR is 16% so I wouldn't start dialysis based onthat, but depends if he's having sx. I did place an order for vascular to get AVF access though. I think [place] is closest facility for him, but here are some options. Vascular surgeons: Dr Donohue [phone] at [facility] or Dr Ingram [phone] at [place], Dr Harshil West/Dr Yuri Givens in [place] at [phone] He's scheduled with me in December and should keep that documented in this encounterBluffton Hospital04-22-2025 Telephone encounter Note * Telephone Encounter - Carline Cason RN - 11/26/2024 11:56 AM EDTSummary: Pt update CKD SPECIALIZED COORDINATION QUICK NOTE Provider Action/FYI Telephone call Patient identified by name and date : Yes Brief call with sister as she stated that she was installing smoke detectors & requested that Icall back @ a later time. Arrangements made for a call @ a later time today. Carline Cason RN [facility]04-22-2025 Telephone encounter Note* Telephone Encounter - Carline Cason RN - 11/26/2024 11:56 AM EDT ----- Message from Janice Hodges APRN.HELIARC WELDER sent at 11/26/2024 11:47 AM EDT ----- Arturo Crowley Can you call his sister please. She seems to think he needs to start dialysis. Not sure what she isbasing this on, but if you could check please. His GFR is 16% so I wouldn't start dialysis based onthat, but depends if he's having sx. I did place an order for vascular to get AVF access though. I think [place] is closest facility for him, but here are some options. Vascular surgeons: Dr Donohue [phone] at [facility] or Dr Ingram [phone] at [place], Dr Harshil West/Dr Yuri Givens in [place] at [phone] He's scheduled with me in December and should keep that [facility]04-17-[facility] Telephone encounter Note* Telephone Encounter - Sima Vidal MA - 11/21/2024 1:15 PM EDT Patient notified, sent to [employer] as well. [facility]04-17-2025 Miscellaneous Notes* Telephone Encounter - Sima Vidal MA - 11/21/2024 1:15 PM EDT Patient notified, sent to [employer] as well. * Telephone Encounter - Sima Vidal MA - 11/21/2024 1:11 PM EDT Images from the original note were not included. Janice Hodges APRN.HELIARC WELDER to [facility] Clinical Pool 11/21/24 8:16 AM Result Note Please call his sister- she is difficult to reach Kidney function remains low and the same at 15% Very anemic- should continue to follow with hematology. I continue to recommend GI testing as recommended by hematology to see where he may be losing blood in addition (in part it's from low kidney function, but needs additional GI testing as well) If he is taking the sodium bicarbonate 650mg bid- heneeds to increase to 1300mg bid as his CO2 is very low. If he's not taking it then he needs to resume the 650mg bid. Keep appt in December and get labs prior to that appt too thanks documented in this encounterBluffton Hospital04-17-2025 Telephone encounter Note * Telephone Encounter - Sima Vidal MA - 11/21/2024 1:11 PM EDT Images from the original note were not included. Janice Hodges APRN.HELIARC WELDER to [facility] Clinical Pool 11/21/24 8:16 AM Result Note Please call his sister- she is difficult to reach Kidney function remains low and the same at 15% Very anemic- should continue to follow with hematology. I continue to recommend GI testing as recommended by hematology to see where he may be losing blood in addition (in part it's from low kidney function, but needs additional GI testing as well) If he is taking the sodium bicarbonate 650mg bid- heneeds to increase to 1300mg bid as his CO2 is very low. If he's not taking it then he needs to resume the 650mg bid. Keep appt in December and get labs prior to that appt too thanks [facility]04-10-2025 Telephone encounter Note* Telephone Encounter - Carline Cason RN - 11/14/2024 8:36 AM EDTSummary: Labs Images from the original note were not included. CKD SPECIALIZED COORDINATION QUICK NOTE Provider Action/FYI Telephone call Text msg Patient identified by name and date : No Telephone call placed to pt. My call went to voicemail but I was not able to leave a msg as the voicemail has not been set up. Sent text msg requesting pt to call me. Carline Cason RN Janice Hodges, RUNNING SPECIALIST.HELIARC WELDER You41 minutes ago (7:54 AM) Hi Carline Could you please call him or his sister to remind them he needs labs next week? Orders are in. He'snearing dialysis. Not easy to get ahold of unfortunately Thanks so much [facility]04-10-2025 Miscellaneous Notes* Telephone Encounter - Carline Cason RN - 11/14/2024 8:36 AM EDTSummary: Labs Images from the original note were not included. CKD SPECIALIZED COORDINATION QUICK NOTE Provider Action/FYI Telephone call Text msg Patient identified by name and date : No Telephone call placed to pt. My call went to voicemail but I was not able to leave a msg as the voicemail has not been set up. Sent text msg requesting pt to call me. Carline Cason RN Janice Hodges, RUNNING SPECIALIST.HELIARC WELDER You41 minutes ago (7:54 AM) Arturo Crowley Could you please call him or his sister to remind them he needs labs next week? Orders are in. He'snearing dialysis. Not easy to get ahold of unfortunately Thanks so much documented in this encounterBluffton Hospital04-01-2025 Telephone encounter Note * Telephone Encounter - Terrie Telles LPN - 11/05/2024 10:09 AM EDT The patient has been identified by name and date of : Yes, pharmacy Caregiver verified no other encounters exist for this prescription request: Yes Caregiver confirmed with patient/requestor that no other refills are due, in the near future, with this provider at this time: Yes The last office visit in the department: 05/09/2024 Does the patient have a future office visit with this provider/department: No no future appt scheduled Requested Prescriptions Pending Prescriptions Disp Refills Senna 8.6 mg tab 90 tablet 5 Sig: Take 1 tablet by mouth three times a day as needed. Terrie Telles LPN November 05, 2024 10:10 AM [facility]04-01-2025 Miscellaneous Notes* Telephone Encounter - Terrie Telles LPN - 11/05/2024 10:09 AM EDT The patient has been identified by name and date of : Yes, pharmacy Caregiver verified no other encounters exist for this prescription request: Yes Caregiver confirmed with patient/requestor that no other refills are due, in the near future, with this provider at this time: Yes The last office visit in the department: 05/09/2024 Does the patient have a future office visit with this provider/department: No no future appt scheduled Requested Prescriptions Pending Prescriptions Disp Refills Senna 8.6 mg tab 90 tablet 5 Sig: Take 1 tablet by mouth three times a day as needed. Terrie Telles LPN November 05, 2024 10:10 AM documented in this encounterBluffton Hospital03-25-2025 Telephone encounter Note * Telephone Encounter - Kasey Millard MSW - 10/29/2024 1:27 PM EDT Renetta, sister reports that she took patient to dialysis and said that dialysis told him patient isat stage 5. Notes patient met with Justine at dialysis and will have dialysis 3x a week for 4 hours a day. Renetta notes not sure when or how to work in colonoscopy. Still helping take care of her spouse andnow will need to help patient as well to dialysis. Renetta notes that she and patient were told he has to watch fluid intake on dialysis and she is concerned about that. Reentta was asking about healthcare poa forms. Renetta [place]erma [address] [place] [address] Sw will mail advance directive to patient sister to review with patient and help with completing and bring them in to scan to system. Renetta notes that patient home care aides are not able to travel or go to appts with patient. Renetta states that she is supposed to have a call with [facility] on [facility] to update on this information and to see if patient can receive any more home health registered nurse hours or meal plan assistance to help on weekends. Brent noted that she would forward above note to Dr. Manrique, Janice Albarran,STEEL MANAGER,nephrology, and RITA Christopher. [facility]03-25-2025 Miscellaneous Notes* Telephone Encounter - Kasey Millard MSW - 10/29/2024 1:27 PM EDT Renetta, sister reports that she took patient to dialysis and said that dialysis told him patient isat stage 5. Notes patient met with Justine at dialysis and will have dialysis 3x a week for 4 hours a day. Renetta notes not sure when or how to work in colonoscopy. Still helping take care of her spouse andnow will need to help patient as well to dialysis. Renetta notes that she and patient were told he has to watch fluid intake on dialysis and she is concerned about that. Renetta was asking about healthcare poa forms. Renetta Lerma [address] [place] [address] Sw will mail advance directive to patient sister to review with patient and help with completing and bring them in to scan to system. Renetta notes that patient home care aides are not able to travel or go to appts with patient. Renetta states that she is supposed to have a call with [facility] on [facility] to update on this information and to see if patient can receive any more home health registered nurse hours or meal plan assistance to help on weekends. Brent noted that she would forward above note to Dr. Manrique, Janice Albarran,RITA,nephrology, and RITA Christopher. * Telephone Encounter - Kasey Millard MSW - 10/23/2024 10:23 AM EDT Sw spoke with patient sister Renetta in regards to colonoscopy. Renetta notes that her spouse had planned on taking patient to his colonoscopy in August, but had had heart issues and has not been ableto drive. Renetta notes that she and spouse are going to be checking on when he can drive again. Renetta is also going to check with patient home health registered nurse and see about her ability if agency allows for her to ride with patient to appts and the home. Renetta also notes that she is taking patient to his kidney appt next Monday and asks this Sw to call her back at 1pm on Monday, 10/29 to let this Sw know what she comes up with in regards to helpingpatient set up and take patient to colonoscopy appt. * Telephone Encounter - Kasey Millard MSW - 10/22/2024 10:13 AM EDT Sw left message for patient sister Renetta to return Sw call to discuss assisting patient to colonoscopy appt once scheduled. * Telephone Encounter - Kasey Millard MSW - 10/18/2024 10:21 AM EDT Patient and Sw spoke about colonoscopy and patient asks that Sw call his sister Renetta next to discuss Renetta and possibility for her to bring patient to colonoscopy. Sw will call Renetta back this next week to discuss. * Telephone Encounter - Kasey Millard MSW - 10/15/2024 3:39 PM EDT Sw spoke with patient to update him regarding [facility] as Sw noted interest in trying other meal options and also issue with medical alert. Patient states I don't know what happened withmy medical alert button. Sw noted to patient that [employer] is aware of patient needing help with medical alert button. Sw also noted that RITA Stewart, Nephrology office would be in contact with him on dialysis process. Sw also noted to patient that Janice wanted to remind him to get his blood work done. Patient stated thanks for the reminder. Patient did answer on the other number listed on demographics. Her sister Chey Lerma, patient noted is very helpful with transportation as well to help him parts picker personal care items. * Telephone Encounter - Kasey Millard MSW - 10/15/2024 12:29 PM EDT Sw received message back from [facility], and was noted that they are following and guiding patient in the process of dialysis. This Sw was told that if and when they deem patient appropriate for dialysis if there are any social service ie. Transportation needs, that dept will let this Sw know. * Telephone Encounter - Kasey Millard MSW - 10/14/2024 12:13 PM EDT Caty Stewart, Please read my note below. I believe you are trying to help patient with dialysis set up. Let me know if and how I can be of assistance. See note below in regards to transportation help that I identified during my appt with patient this past Monday. Kasey * Telephone Encounter - Kasey Millard MSW - 10/14/2024 12:05 PM EDT Where was he planning on having dialysis? * Telephone Encounter - Angie Mercado PA-C - 10/14/2024 11:58 AM EDT Thank you, noted, please help patient schedule with general surgery for EGD/colonoscopy. Also, please follow up to see if we are able to help schedule/set up dialysis. Angie Mercado PA-C * Telephone Encounter - Kasey Millard MSW - 10/14/2024 11:57 AM EDT Brent spoke with [facility] and staff reports that patient does have medical alert button. This Sw noted patient stated he would like to have medical alert button, so not sure what patient has done with alert. Sw also noted that patient is interested in different meal plan option as he noted current meals that he receives are too salty. [employer] staff noted that they would make note of this as well in patient chart. Patient is being assigned a new transitional care manager at this time. * Telephone Encounter - Kasey Millard MSW - 10/11/2024 10:38 AM EST Brent met with patient and he reports that he receives home health registered nurse services through [facility] and [place] [facility]. Atul takes patient to medical appts through his [employer]. Patient reports Patient reports that Erum Moreno is patient transitional care manager through [facility] per patient. Patient reports that he also receives home delivered meals through [employer] per [employer]. Patientreports that he thinks [employer] meal plans are salty and would like a different meal plan option. Sw will talk with Erum Moreno about meals and medical alert button. Patient notes that he does not have medical alert button, but feels like this would be helpful. Patient new phone number is listed on demographics under other. Patient notes that his sister Renetta is very helpful and takes him to grocery store. Sw and patientdiscussed speaking with Renetta in regards to helping take patient to colonoscopy appt. Patient is not sure where he is at with setting up dialysis. Patient notes [place] would be the one to help take him to medical appts. Patient reports that Mondays and Tuesdays are the best days for sister Renetta to help patient with his healthcare appts. Sw will check with Angie and see if Sw just needs to reach out to scheduling for colonoscopy or if further discussion with patient is needed. [facility] delivers patient medications to him through pill packs and deliver to his home. documented in this encounterBluffton Hospital03-24-2025 [facility] History of Present illness Narrative* Octavio Monsalve - 10/28/2024 11:00 AM EDT HPI: Lou Julien is a 68 year old male who presents here today for follow up Anemia/CKD. Per Dr. Freire's previous note: H/o type 2 diabetes with polyneuropathy, paroxysmal SVT, pacemaker-ICD, hypertension, hypercholesterolemia, psoriasis, contact dermatitis, lumbar spondylosis, lumbar degenerative disc disease, low back pain, iron deficiency anemia,? DVT and CKD. Hospitalized at [facility] mid June for abdominal pain. Significant increase in serum Cr over baseline. Received hydration. Hemoglobin 8.2 g/dL on presentation 06/29. Serum creatinine was 3.35 mg/dL. Calcium was 8.4 mg/dL. Serum iron was 50 mcg/dL (reference range 65 to 175 mcg/dL). TIBC 210 mcg/dL. (Reference range 250 to 450 mcg/dL). Ferritin was 128 ng/mL. Total serum protein was 6 g/dL. On EGD was found to have reflux esophagitis with no bleeding. There was a mild Schatzki's ring thatwas dilated. Medium size hiatal hernia. There was hematin (altered blood/gckdzm-dhkacf-wmdr material) in the gastric body. Granular gastric mucosa that was biopsied. Granular mucosa in the duodenal bulb. There were oozing duodenal ulcers with pigmented material. Treated with argon plasma coagulation. On colonoscopy prep was poor. Moderate diverticulosis was observed in the rectosigmoid colon and sigmoid colon. There were five 1 to 2 mm polyps in the sigmoid colon removed using injection lift and hot snare. One 5 mm polyp in the transverse colon. Stool was observed in the rectum, rectosigmoid, sigmoid at the splenic flexure hepatic flexure and ascending colon as well as cecum. Blood transfusion was not administered. Also had CT of the abdomen pelvis on 06/29/2023. He had bilateral punctate nonobstructing renal stones. Cholelithiasis without CT evidence of acute cholecystitis. There is diverticulosis without CT evidence of acute diverticulitis. Normal appendix. Diffuse atherosclerosis. Degenerative changes. Per initial OV: Endorses poor appetite. No reflux or nausea. Bowels have been moving. Stools formed. No black or bloody stools. Left foot drop with brace. Hand numbness bilaterally. Electrophoresis and immunofixation of serum negative for monoclonal protein but both kappa and lambda light chains elevated with increased ratio. [place] light chain 94 milligrams per liter. He did not follow-up for further workup. Referred back for anemia. Hemoglobin has been stable over the last year. Pt. no showed and cancelled both appts. with surgery for EGD/Colonoscopy in March. Poor prep. Suki Maria Guadalupe, sister Interval Hx: Pt presents today for follow alone, he was dropped off today by the [facility]. He reports feeling very fatigued and weak. I just dont feel very good States that he hasn't really been eating. Wt continues to trend down. Drinks a lot of water but doesn't urinate much. No aches or pains. No nausea, vomiting. No fevers, chills. Denies headaches. Denies bleeding, no changes in bowel or bladder habits. No abd pain. Pt. is not sure what medications he is taking. Kidney function has significantly declined. Per nephrology note he needs dialysis. Discussed with recent labs, worsening fatigue and malaise I would recommend that he present to the ED for further evaluation. He declines. Reviewed that his worsening kidney function is dangerous to remain untreated. Offered to refer to local concrete block maker, pt declined states he is meeting with someone tomorrow. Spoke with patients sister Suki on the phone with patients permission she states that they do have an appt with nephrology tomorrow at 10 am. She was unsure of the provider. Explained that typically dialysis centers manage PAULA therapy once dialysis starts. Requested records be faxed to our office. Discussed with Suki that I would recommend that he be evaluated in the ED. Pt does not drive, lives alone. Has an aide 1.5 hours BID. ROS: All systems reviewed on 10/29/2024 with pertinent positives and negatives as outlined in the interval history. The ROS is otherwise negative. Past medical history, appointments, medications, allergies reviewed. No changes. EXAM: BP 157/74 Pulse 65 Temp 36.4 C (97.5 F) (Temporal) Ht 177 cm (5' 9.69) Wt 67.6 kg (149 lb) SpO2 99% BMI 21.57 kg/m APPEARANCE Well appearing, alert, in no acute distress, well-hydrated, well nourished. HEART RRR with normal S1 and S2, no murmurs LUNG clear to auscultation LYMPH NODES No cervical lymphadenopathy, No supraclavicular lymphadenopathy, and No axillary lymphadenopathy. ABDOMEN bowel sounds normoactive, soft, non-tender EXTREMITIES No edema NEURO Awake, alert and oriented x 3, Normal gait, and No involuntary motions. SKIN Skin color, texture, turgor normal, no suspicious rashes or lesions ASSESSMENT/PLAN: 1. Anemia, unspecified type - ICD9: 285.9, ICD10: D64.9 Assessment: -The patient is a 68-year-old male with past medical history as outlined above. Hospitalized for abdominal pain last fall. Underwent EGD and colonoscopy for anemia. Found to have oozing duodenal ulcers treated with argon laser. Colonoscopy poor prep. Needed repeated. -Iron was low for degree of renal insufficiency. -Suspect anemia secondary to endocrine kidney dysfunction. -Chronic kidney disease with proteinuria attributed to diabetic nephropathy. -Serum light chains possibly elevated secondary to chronic kidney disease. No evidence of monoclonal gammopathy by electrophoresis or immunofixation of the serum. -Poor appetite may be from CKD. Plan: - Would recommend that he present to the ED, due to most recent labs with fatigue and malaise. Pt declines. Spoke with pt sister with patients permission. Offered to refer to local concrete block maker. She states that he has an appointment tomorrow with nephrology to get started in dialysis. Requested labs and note as there is no appt in our system. - would benefit from PAULA therapy, however this is generally managed by dialysis centers. We do not manage PAULA therapy for patients on dialysis. - will hold off on submitting anything for insurance auth until we are able to verify plan with neph. - should have EGD and colonoscopy, however his decline in kidney function is priority at this time. Octavio Monsalve APRN.HELIARC WELDER I spent a total of 45 minutes on the date of the service which included preparing to see the patient, [id number] patient care, completing clinical documentation, obtaining and/or reviewing separately obtained history, performing a medically appropriate examination, and ordering medications, tests, or procedures. Portions of this note including HPI, ROS, impression/plan may have been copied forward as to provide important historical information essential in contributing to medical decision making. Documentation has been reviewed and edited as necessary to support clinical decision making for today's visit and to reflect my own independent evaluation of this patient. documented in this encounterBluff[facility] Hospital03-19-2025 NoteHNO ID: [id number] Author: JANICE HODGES APRN.ELROY Service: ? Author Type: Nurse Practitioner Type: Progress Notes Filed: 10/23/2024 16:17 Note Text: Pt now scheduled with hematology 10/28 and dialysis education 10/29[facility]03-19-[facility] Telephone encounter Note* Telephone Encounter - Jeane Braswell - 10/23/2024 1:31 PM EDT Scheduled with patient [facility] Work Phone: [phone] Miscellaneous Notes* Telephone Encounter - Jeane Braswell - 10/23/2024 1:31 PM EDT Scheduled with patient * Telephone Encounter - Jeane Braswell - 10/23/2024 12:48 PM EDT ----- Message from Jeane Orozco sent at 10/23/2024 12:47 PM EDT ----- Regarding: RE: Anemia 1st attempt. Message left for patient to contact office and schedule office visit with Octavio for Anemia. ----- Message ----- From: Nini Freire DO Sent: 10/23/2024 12:30 PM EDT To: [facility] Hem/Onc Pool; [facility] Hem/Onc Psr Subject: FW: Anemia Please schedule to see Octavio. ----- Message ----- From: Octavio Monsalve Sent: 10/22/2024 2:38 PM EDT To: Nini Freire DO Subject: RE: Anemia That should be fine but I thought that the dialysis centers managed PAULA and iron once the patient started on dialysis? ----- Message ----- From: Nini Freire DO Sent: 10/22/2024 1:49 PM EDT To: Octavio Monsalve; Carline Cason RN Subject: RE: Anemia Hi Octavio. Are you comfortable seeing him? May need to have updated iron studies and started on Aranesp. Dr. Freire ----- Message ----- From: Carline Cason, RN Sent: 10/22/2024 9:46 AM EDT To: Nini Freire DO Subject: Anemia Hi Dr Freire Mr Julien has Anemia in Chronic Kidney Disease & will need to be seen prior to having the Colonoscopy. His Hgb is 7.7 & he is close to needing a transfusion. Can your staff reach out to him & schedule this? We will continue to try to assist him with scheduling the colonoscopy as well. Please let me know, Carline. documented in this encounterBluffton Hospital03-19-2025 Telephone encounter Note * Telephone Encounter - Jeane Braswell - 10/23/2024 12:48 PM EDT ----- Message from Jeane Orozco sent at 10/23/2024 12:47 PM EDT ----- Regarding: RE: Anemia 1st attempt. Message left for patient to contact office and schedule office visit with Octavio for Anemia. ----- Message ----- From: Nini Freire DO Sent: 10/23/2024 12:30 PM EDT To: [facility] Hem/Onc Pool; [facility] Hem/Onc Psr Subject: FW: Anemia Please schedule to see Octavio. ----- Message ----- From: Octavio Monsalve Sent: 10/22/2024 2:38 PM EDT To: Nini Freire DO Subject: RE: Anemia That should be fine but I thought that the dialysis centers managed PAULA and iron once the patient started on dialysis? ----- Message ----- From: Nini Freire DO Sent: 10/22/2024 1:49 PM EDT To: Octavio Monsalve; Carline Cason, [place] Subject: RE: Anemia Hi Octavio. Are you comfortable seeing him? May need to have updated iron studies and started on Aranesp. Dr. Freire ----- Message ----- From: Carline Cason, BERKLEY Sent: 10/22/2024 9:46 AM EDT To: Nini Freire DO Subject: Anemia Hi Dr Freire Mr Julien has Anemia in Chronic Kidney Disease & will need to be seen prior to having the Colonoscopy. His Hgb is 7.7 & he is close to needing a transfusion. Can your staff reach out to him & schedule this? We will continue to try to assist him with scheduling the colonoscopy as well. Please let me know, Carline. [facility]03-19-2025 [facility]Day[facility]03-[facility] Telephone encounter Note* Telephone Encounter - Kasey Millard MSW - 10/23/2024 10:23 AM EDT Sw spoke with patient sister Renetta in regards to colonoscopy. Renetta notes that her spouse had planned on taking patient to his colonoscopy in August, but had had heart issues and has not been ableto drive. Renetta notes that she and spouse are going to be checking on when he can drive again. Renetta is also going to check with patient home health registered nurse and see about her ability if agency allows for her to ride with patient to appts and the home. Renetta also notes that she is taking patient to his kidney appt next Monday and asks this Sw to call her back at 1pm on Monday, 10/29 to let this Sw know what she comes up with in regards to helpingpatient set up and take patient to colonoscopy appt. [facility]03-18-2025 [facility]Day[facility]03-[facility]25 History of Present illness Narrative* Carline Cason RN - 10/22/2024 1:38 PM EDTSummary: CKD ed Received message from ZEV Fletcher with an update that pt has been scheduled for CKD ed on 10/29/24. Carline Cason RN * Carline Cason RN - 10/22/2024 10:02 AM EDTSummarsteve: OTP - touch point call CKD SPECIALIZED COORDINATION QUICK NOTE Provider Action/FYI Telephone call Text msg Patient identified by name and date : Yes Reached out to pt via telephone call to discuss Lab results & to schedule CKD ed. Call went to a recording that stated the person you are trying to reach is not accepting calls at this time - please try your call again later. Could not leave a message. Reached out to Suki hudson/Renetta & discussed CKD education. confirms that she received the packet that Justine (Chronic Kidney Disease educator with [employer]) sent. Renetta states that pt would not be able to read the information. Discussed with Renetta the importance of the education as pt's kidney function has declined to 13%. Renetta voiced understanding. Renetta is agreeable to taking pt to meet with CKD educator & provided me with the days of the week in which she is available. This info was passed on to CKD educator who will again contact sister to try to schedule education. Reached out to Hem/Onc via [facility] message & requested that they contact pt for an appointment forAnemia in CKD. Obtained updated telephone number from sister & updated chart. Attempted to reach pt @ this telephone number but my call went to [employer], however the mailbox has not been set up so I was not able to leave a msg. Sent pt a text msg to contact me. Carline Cason RN documented in this encounterBluffton Hospital03-18-2025 Telephone encounter Note * Telephone Encounter - Denise Gallo LPN - 10/22/2024 10:14 AM EDT Called patient, no answer the voice message states the patient is not taking calls at this time anddoes not allow for a message to be left. Called Suki the patients sister/POA relayed the message to her, she verbalized understanding. Patients sister stated she is waiting for a call from hematology to schedule an appointment. Suki will update her brother Lou on his kidney function andto decrease potassium rich foods. [facility]03-18-2025 Miscellaneous Notes* Telephone Encounter - Denise Gallo LPN - 10/22/2024 10:14 AM EDT Called patient, no answer the voice message states the patient is not taking calls at this time anddoes not allow for a message to be left. Called Suki the patients sister/POA relayed the message to her, she verbalized understanding. Patients sister stated she is waiting for a call from hematology to schedule an appointment. Suki will update her brother Lou on his kidney function andto decrease potassium rich foods. * Telephone Encounter - Denise Gallo LPN - 10/22/2024 10:10 AM EDT ----- Message from Janice Hodges APRN.HELIARC WELDER sent at 10/21/2024 5:33 PM EDT ----- Kidney function continues to decline a bit and is now 13% Potassium is borderline- will need to limit K foods a bit Please see last message about encouraging hematology visit for severe anemia. Improved anemia MAY delay continued decline. * Telephone Encounter - Lyric Pedroza RN - 10/21/2024 10:47 AM EDT Attempted to reach patient. Line went right to a recording stating that the person you are trying to reach is not accepting calls at this time - please try your call again later. Could not leave a message. Attempted to reach patient's sister and TRINI Fernandez. Left VM requesting a return call to the office for message. documented in this encounterBluffton Hospital03-18-2025 Telephone encounter Note * Telephone Encounter - Kasey Millard MSW - 10/22/2024 10:13 AM EDT Sw left message for patient sister Renetta to return Sw call to discuss assisting patient to colonoscopy appt once scheduled. [facility]03-18-2025 Telephone encounter Note* Telephone Encounter - Denise Gallo LPN - 10/22/2024 10:10 AM EDT ----- Message from Janice Hodges APRN.HELIARC WELDER sent at 10/21/2024 5:33 PM EDT ----- Kidney function continues to decline a bit and is now 13% Potassium is borderline- will need to limit K foods a bit Please see last message about encouraging hematology visit for severe anemia. Improved anemia MAY delay continued decline. [facility]03-18-2025 [facility]Day[facility]03-17-2025 Telephone encounter Note* Telephone Encounter - Lyric Pedroza RN - 10/21/2024 10:47 AM EDT Attempted to reach patient. Line went right to a recording stating that the person you are trying to reach is not accepting calls at this time - please try your call again later. Could not leave a message. Attempted to reach patient's sister and TRINI Fernandez. Left VM requesting a return call to the office for message. [facility]03-14-2025 Telephone encounter Note* Telephone Encounter - Kasey Millard MSW - 10/18/2024 10:21 AM EDT Patient and Sw spoke about colonoscopy and patient asks that Sw call his sister Renetta next to discuss Renetta and possibility for her to bring patient to colonoscopy. Sw will call Renetta back this next week to discuss. [facility]03-11-2025 Telephone encounter Note* Telephone Encounter - Kasey Millard MSW - 10/15/2024 3:39 PM EDT Sw spoke with patient to update him regarding [facility] as Sw noted interest in trying other meal options and also issue with medical alert. Patient states I don't know what happened withmy medical alert button. Sw noted to patient that [employer] is aware of patient needing help with medical alert button. Sw also noted that Janice,RITA, Nephrology office would be in contact with him on dialysis process. Sw also noted to patient that Janice wanted to remind him to get his blood work done. Patient stated thanks for the reminder. Patient did answer on the other number listed on demographics. Her sister Chey Lerma, patient noted is very helpful with transportation as well to help him parts picker personal care items. [facility]03-11-2025 Telephone encounter Note* Telephone Encounter - Kasey Millard MSW - 10/15/2024 12:29 PM EDT Sw received message back from [facility], and was noted that they are following and guiding patient in the process of dialysis. This Sw was told that if and when they deem patient appropriate for dialysis if there are any social service ie. Transportation needs, that dept will let this Sw know. [facility]03-10-2025 Telephone encounter Note* Telephone Encounter - Kasey Millard MSW - 10/14/2024 12:13 PM EDT Caty Stewart, Please read my note below. I believe you are trying to help patient with dialysis set up. Let me know if and how I can be of assistance. See note below in regards to transportation help that I identified during my appt with patient this past Monday. Kasey [facility]03-10-2025 Telephone encounter Note* Telephone Encounter - Kasey Millard MSW - 10/14/2024 12:05 PM EDT Where was he planning on having dialysis? [facility]03-10-2025 Telephone encounter Note* Telephone Encounter - Angie Mercado PA-C - 10/14/2024 11:58 AM EDT Thank you, noted, please help patient schedule with general surgery for EGD/colonoscopy. Also, please follow up to see if we are able to help schedule/set up dialysis. Angie Mercado PA-C [facility]03-10-2025 Telephone encounter Note* Telephone Encounter - JimmyKasey contrerasWARREN - 10/14/2024 11:57 AM EDT Sw spoke with [facility] and staff reports that patient does have medical alert button. This Sw noted patient stated he would like to have medical alert button, so not sure what patient has done with alert. Sw also noted that patient is interested in different meal plan option as he noted current meals that he receives are too salty. [facility] staff noted that they would make note of this as well in patient chart. Patient is being assigned a new transitional care manager at this time. [facility]03-07-2025 Telephone encounter Note* Telephone Encounter - TrentbaldoRaffiin, WARREN - 10/11/2024 10:38 AM EST Brent met with patient and he reports that he receives home health registered nurse services through [facility] and [facility] care. Atul takes patient to medical appts through his Passport. Patient reports Patient reports that Erum Moreno is patient transitional care manager through [facility] per patient. Patient reports that he also receives home delivered meals through [employer] per [facility]. Patientreports that he thinks [employer] meal plans are salty and would like a different meal plan option. Sw will talk with Erum Moreno about meals and medical alert button. Patient notes that he does not have medical alert button, but feels like this would be helpful. Patient new phone number is listed on demographics under other. Patient notes that his sister Renetta is very helpful and takes him to grocery store. Sw and patientdiscussed speaking with Renetta in regards to helping take patient to colonoscopy appt. Patient is not sure where he is at with setting up dialysis. Patient notes Atul would be the one to help take him to medical appts. Patient reports that Mondays and Tuesdays are the best days for sister Renetta to help patient with his healthcare appts. Sw will check with Angie and see if Sw just needs to reach out to scheduling for colonoscopy or if further discussion with patient is needed. [facility] delivers patient medications to him through pill packs and deliver to his home. [facility]03-06-2025 Telephone encounter Note* Telephone Encounter - Pan Vivar LPN - 10/10/2024 8:58 AM EST Called [facility] regarding Yashira (patient caregiver) number not working, states will forwardmessage from below for incontinence supplies. [facility]# [phone] Pan Vivar LPN October 10, 2024 8:59 AM [facility]03-06-2025 Miscellaneous Notes* Telephone Encounter - Pan Vivar LPN - 10/10/2024 8:58 AM EST Called [facility] regarding Yashira (patient caregiver) number not working, states will forwardmessage from below for incontinence supplies. [facility]# [phone] Pan Vivar LPN October 10, 2024 8:59 AM * Telephone Encounter - Rocky Argueta RN - 10/09/2024 9:00 AM EST Tried calling Pts sister to see what DME to send incontinence pads to for Pt. I received the following message, The wireless customer you are calling is not available. Please try your call again later.. Will need to call back later. * Telephone Encounter - Rocky Argueta RN - 10/04/2024 12:25 PM EST Yashira Pts Aid with [facility] called in with the Pt and stated Pt needs orders sent in for incontinence supplies so his insurance will pay for them. She states he wears the underwear style attend in size M. I told her she needs to call the Pts incurance and see what DME they go through for these supplies. I told her to get us a name and fax number for the company. She is going to call us back onceshe gets this. documented in this encounterBluffton Hospital03-05-2025 History of Present illness Narrative* Cookie Delacruz APRN.CNP - 10/09/2024 10:15 AM EST PATIENT WELL CONTROLLED CURRENTLY 5.3 A1c ENDO CONSULT VISIT UNNECESSARY PATIENT WILL F/U WITH PCP documented in this encounterBluffton Hospital03-05-2025 NoteHNO ID: [id number] Author: COOKIE DELACRUZ APRN.ELROY Service: ? Author Type: Nurse Practitioner Type: Progress Notes Filed: 10/09/2024 10:15 Note Text: PATIENT WELL CONTROLLED CURRENTLY 5.3 A1c ENDO CONSULT VISIT UNNECESSARY PATIENT WILL F/U WITH [facility]CPDay[facility]03-[facility]-2025 Telephone encounter Note* Telephone Encounter - Rocky Argueta RN - 10/09/2024 9:00 AM EST Tried calling Pts sister to see what DME to send incontinence pads to for Pt. I received the following message, The wireless customer you are calling is not available. Please try your call again later.. Will need to call back later. [facility]03-04-2025 Instructions* Patient Instructions* Angie Mercado PA-C - 10/08/2024 9:14 AM EST MondayOctober 11 at 11 am with WARREN Carballo. Check-in in the Main Lobby at [facility] and tell them you have an appointment to see Kasey Millard at 11 am. documented in this encounterBluffton Hospital03-04-2025 NoteDayton [facility] Center03-04-2025 History of Present illness Narrative* Angie Mercado PA-C - 10/08/2024 9:11 AM EST 10/08/2024 Patient presents with: Follow Up For: Lab results SUBJECTIVE: This is a 68 year old that is here today because he was seen by general surgery to discuss rescheduling his EGD/colonoscopy. Per their OV note he was uncertain why he was there and declined to reschedule, he thought the appointment was to review labs so they referred and scheduled him back with primary care. He tells me today that he doesn't want to schedule because he doesn't have anyone to go with him to the procedures. He lives alone, limited support from family. Hematology advised f/u for chronic anemia after EGD/colonoscopy were completed. Notes he does feel fatigued and SOB is chronic, not worse than baseline. Denies chest pain. Denies black tarry stools, blood ins tools, abdominal pain, vomiting. CKD- patient was advised need to start dialysis, referred, but he is uncertain how to set up and schedule. Recent visit with nephrology. -we need a plan for dialysis which will be likely given your continued poor kidney function. Pleasediscuss with family and we can help arrange education for you so you know what it involves. We willcall [phone] to arrange with you -Please get blood work monthly at [facility] so we can check on kidney function -follow up with PCP and hematology as planned DM He is scheduled to see endocrinology tomorrow. A1C controlled-but suspect this is not accurate with his anemia. Not checking his BG readings at home. Limited social resources, by himself today. Tells me he has a new phone /number, does not have withhim today. 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 Dyslipidemia Embolism and thrombosis of unspecified site 04/25/2008 Essential hypertension, benign Family history of malignant neoplasm of gastrointestinal tract Non-proliferative diabetic retinopathy, mild, both eyes ([facility]) 10/11/2017 Non-proliferative diabetic retinopathy, moderate, both eyes ([facility]) 10/14/2019 Other specific developmental learning difficulties Pneumonia 07/07/2015 Dx at [facility] ER Psoriasis and similar disorders Pure hypercholesterolemia Pure hyperglyceridemia Right thalamic infarction ([facility]) 02/18/2019 [facility] Stenosis of carotid artery Stroke ([facility]) Tietze's disease Tinea unguium 12/01/2017 Type II or unspecified type diabetes mellitus with neurological manifestations, not stated as uncontrolled(250.60) ALLERGIES Lopid [Gemfibrozil] and Metformin MEDICATIONS Current Outpatient Medications Medication Sig sodium bicarbonate 650 mg tablet TAKE 1 TABLET BY MOUTH TWICE A DAY losartan (COZAAR) 25 mg tablet TAKE 1 TABLET BY MOUTH DAILY Diaper,Brief, Adult,Disposable (DEPEND UNDERWEAR FOR MEN -MD) 1 Each as needed. amLODIPine (NORVASC) 10 mg tablet Take 1 tablet by mouth once daily. tamsulosin (FLOMAX) 0.4 mg Take 1 capsule by mouth daily at bedtime. Senna 8.6 mg tab Take 1 tablet by mouth three times a day as needed. atorvastatin (LIPITOR) 80 mg tablet Take 1 tablet by mouth every morning. metoprolol succinate ER (TOPROL XL) 100 mg Take 1 tablet by mouth every morning. alcohol swabs (ALCOHOL PREP PADS) Apply 1 application to affected area TID with insulin injection aspirin, enteric coated (ADULT LOW DOSE ASPIRIN) 81 mg EC tablet Take 1 tablet by mouth every morning. hydrALAZINE (APRESOLINE) 50 mg tablet Take 1 tablet by mouth every 8 hours. DAILY-YOUSUF, WITH FOLIC ACID, 400 mcg Take 1 tablet by mouth once daily. traZODone (DESYREL) 50 mg tablet Take 1-2 tablets by mouth daily at bedtime. clopidogrel (PLAVIX) 75 mg tablet Take 1 tablet by mouth once daily. insulin glargine (LANTUS SOLOSTAR U-100 INSULIN) 100 unit/mL (3 mL) Inject 20 Units subcutaneously every morning. blood sugar diagnostic (BLOOD GLUCOSE TEST) test strip Test blood sugar(s) three times daily. Dx: Type 2 DM - Uncontrolled [id number] Insulin: Yes Insulin Kingston, Disposable, (BD ULTRA-FINE LUIS PEN NEEDLE) 32 gauge x 5/32 Use one needle daily for each insulin dose, 4 x's daily. Type 2 DM, insulin dependent. Lancets lancets Test blood sugar(s) one times daily. Dx: Type 2 DM - Uncontrolled Insulin: Yes MEDICAL SUPPLY Hospital bed with rails. Blood-Glucose Meter 1 Device as directed. melatonin 3 mg tablet Take 1 tablet by mouth daily at bedtime. glucose (DEX4 GLUCOSE) 4 gram chewable tablet Take 4 tablets by mouth as needed. Lancing Device (LANCING DEVICE WITH LANCETS[place] [facility] [place] blood sugars as directed COMPOUNDED PRESCRIPTION Diabetic shoes: DIABETES MELLITUS- uncontrolled with neuropathy Syringe with Needle, Safety (BD INTEGRA) 3 mL 22 x 1 1/2 syrg Uses twice a month for testosterone injections insulin lispro (HUMALOG KWIKPEN INSULIN) 100 unit/mL Inject 2 Units subcutaneously three times a day before meals. No current facility-administered medications for this visit. SOCIAL HISTORY Social History Tobacco Use Smoking status: Former Types: Cigars Quit date: 1994 Years since quittin.1 Smokeless tobacco: Never Vaping Use Vaping status: Never Used Substance Use Topics Alcohol use: Not Currently Drug use: Never REVIEW OF SYSTEMS See HPI OBJECTIVE: BP 138/65 Pulse 60 Resp 16 Wt 68.7 kg (151 lb 6.4 oz) SpO2 99% BMI 22.36 kg/m APPEARANCE Well appearing, alert, in no acute distress, well-hydrated, well nourished ASSESSMENT/PLAN: 1. Diabetic polyneuropathy associated with type 2 diabetes mellitus (HCC) - ICD9: 250.60, 357.2, ICD10: E11.42 (primary diagnosis) Patient scheduled with endocrinology tomorrow. Patient aware of appointment. 2. Other iron deficiency anemia - ICD9: 280.8, ICD10: D50.8 Advise f/u with hematology-recommend scheduling appointment Advise f/u with general surgery, connected with to help with possible solutions for transportation to complete colonoscopy/EGD 3. Anemia associated with stage 4 chronic renal failure (HCC) (HCC) - ICD9: 285.21, 585.4, ICD10: N18.4, D63.1 Spoke with SW, scheduled an appointment for this Wednesday 10/11 to discuss and assist in getting schedule and set up for dialysis. The patient indicates understanding of these issues and agrees with the plan. Reviewed red flags and when to seek care sooner. Advised patient to bring phone/new number to appointment tomorrow and 10/11 to update. Angie Mercado PA-C 10/09/2024 documented [facility] Telephone encounter Note * Telephone Encounter - Rocky Argueta RN - 10/04/2024 12:25 PM EST Yashira Pts Aid with [facility] called in with the Pt and stated Pt needs orders sent in for incontinence supplies so his insurance will pay for them. She states he wears the underwear style attend in size M. I told her she needs to call the Pts incurance and see what DME they go through for these supplies. I told her to get us a name and fax number for the company. She is going to call us back onceshe gets this. [facility]02-27-[facility] Telephone encounter Note* Telephone Encounter - Stephanie Martin - 10/03/2024 2:57 PM EST BERTIN: 09/30/24 [facility]02-27-2025 Miscellaneous Notes* Telephone Encounter - Stephanie Martin - 10/03/2024 2:57 PM EST BERTIN: 09/30/24 documented in this encounterBluff[facility]02-25-2025 [facility] History of Present illness Narrative* Janice Hodges APRN.HELIARC WELDER - 09/30/2024 2:00 PM EST Department of Kidney Medicine Medical Specialties [facility] CHIEF COMPLAINT: Follow up for CKD. Data copied from my previous encounters and was imported as a reference for the current encounter. All information in this note has been verified. Data or information that hasn't changed was retainedfrom previous notes and the rest was revised or updated where relevant. HPI: Pt is an 68 year old male being seen today in FU for CKD with proteinuria likely in the setting of diabetic nephropathy. PMH: DM, HTN, CVA, complete heart block, carotid stenosis, metabolic acidosis and hyperlipidemia Last seen by Dr Olmos 11/20/23- started losartan and NaHCo3 Myself 05/20/24- discontinued vitamin D, encouraged water intake as well as sodium bicarb. Encouraged him to bring his medications so we can make sure he is taking them correctly. Labs ordered monthly, but not completed Multiple attempts were made to pt and sister to arrange dialysis education without success Since last visit continues to feel tired- seeing hematology now BPs at home doesn't check- was 118/64 on 09/24 and 128/69 in July at medical appts Blood sugars at home 108-200s depending Medication adherence is good Avoids NSAIDS Follows low salt diet Lives about an hour away- [place] is closest facility Has an aide who comes daily for breakfast, otherwise he does the cooking. Lives alone. Not close with family and denies friends that are close enough to check on him. Drinking maybe 8oz water per day and no sugar tea Problem List Reviewed PAST MEDICAL HISTORY Diagnosis Date Anemia associated with stage 4 chronic renal failure (HCC) ([facility]) 01/25/2023 Basilar artery stenosis 02/19/2019 Cerebrovascular accident (CVA) of right thalamus (HCC) 02/19/2019 Chronic renal insufficiency Complete heart block (HCC) 03/04/2019 s/p pacemaker Coronary artery disease 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 Dyslipidemia Embolism and thrombosis of unspecified site 04/25/2008 Essential hypertension, benign Family history of malignant neoplasm of gastrointestinal tract Non-proliferative diabetic retinopathy, mild, both eyes (HCC) 10/11/2017 Non-proliferative diabetic retinopathy, moderate, both eyes ([facility]) 10/14/2019 Other specific developmental learning difficulties Pneumonia 07/07/2015 Dx at [facility] ER Psoriasis and similar disorders Pure hypercholesterolemia Pure hyperglyceridemia Right thalamic infarction (HCC) 02/18/2019 [facility] Stenosis of carotid artery Stroke ([facility]) Tietze's disease Tinea unguium 12/01/2017 Type II or unspecified type diabetes mellitus with neurological manifestations, not stated as uncontrolled(250.60) Current Outpatient Medications on File Prior to Visit Medication Sig cholecalciferol, Vitamin D3, (VITAMIN D3) 1,250 mcg (50,000 unit) cap capsule Take 1 capsule twice per week for 12 weeks. hydrALAZINE (APRESOLINE) 50 mg tablet Take 1 tablet by mouth every 8 hours. blood sugar diagnostic (BLOOD GLUCOSE TEST) test strip Test blood sugar(s) three times daily. Dx: Type 2 DM - Uncontrolled E11.65 Insulin: Yes clopidogrel (PLAVIX) 75 mg tablet Take 1 tablet by mouth once daily. Senna 8.6 mg tab Take 1 tablet by mouth three times a day as needed. losartan (COZAAR) 25 mg tablet Take 1 tablet by mouth once daily. sodium bicarbonate 650 mg tablet Take 1 tablet by mouth two times a day. Take by mouth as directed. insulin glargine (LANTUS SOLOSTAR U-100 INSULIN) 100 unit/mL (3 mL) Inject 20 Units subcutaneously every morning. amLODIPine (NORVASC) 10 mg tablet Take 1 tablet by mouth once daily. multivitamin (DAILY-YOUSUF) tablet Take 1 tablet by mouth once daily. traZODone (DESYREL) 50 mg tablet Take 1-2 tablets by mouth daily at bedtime. atorvastatin (LIPITOR) 80 mg tablet Take 1 tablet by mouth every morning. metoprolol succinate ER (TOPROL XL) 100 mg Take 1 tablet by mouth every morning. tamsulosin (FLOMAX) 0.4 mg take 1 capsule by mouth at bedtime aspirin, enteric coated (ADULT LOW DOSE ASPIRIN) 81 mg EC tablet Take 1 tablet by mouth every morning. alcohol swabs (ALCOHOL PREP PADS) Apply 1 application to affected area once daily with insulin injection polyethylene glycol 3350 17 gram/dose powder Take 17 g by mouth once daily. Drink a mix of 1 scoop in 8oz of water/beverage once daily as needed for constipation. insulin lispro (HUMALOG KWIKPEN INSULIN) 100 unit/mL Inject 2 Units subcutaneously three times a day before meals. diclofenac (VOLTAREN) 1 % topical gel Apply 2 g to affected area four times daily. Miscellaneous Medical Supply (BLOOD PRESSURE CUFF) 1 Each once daily. Blood Pressure Monitor 1 Each as directed. Diaper,Brief, Adult,Disposable (DEPEND UNDERWEAR FOR MEN SM-) 1 Each as needed. Insulin Kingston, Disposable, (BD ULTRA-FINE LUIS PEN NEEDLE) 32 gauge x 5/32 Use one needle daily for each insulin dose, 4 x's daily. Type 2 DM, insulin dependent. Lancets lancets Test blood sugar(s) one times daily. Dx: Type 2 DM - Uncontrolled E11.65 Insulin: Yes MEDICAL SUPPLY Hospital bed with rails. Blood-Glucose Meter 1 Device as directed. melatonin 3 mg tablet Take 1 tablet by mouth daily at bedtime. glucose (DEX4 GLUCOSE) 4 gram chewable tablet Take 4 tablets by mouth as needed. Lancing Device (LANCING DEVICE WITH LANCETS) [facility] [place] Use to check blood sugars as directed COMPOUNDED PRESCRIPTION Diabetic shoes: DIABETES MELLITUS- uncontrolled with neuropathy Syringe with Needle, Safety (BD INTEGRA) 3 mL 22 x 1 1/2 syrg Uses twice a month for testosterone injections Current Facility-Administered Medications on File Prior to Visit Medication perflutren lipid microspheres 1.3 mL in NaCl (PF) 0.9% 10 mL injection (DEFINITY) sodium chloride 0.9 % (flush) 10 mL (BD POSIFLUSH) REVIEW OF SYSTEMS: Cardiovascular: denies chest pain or pressure, palpitations. Admits to dizziness, lightheadedness- thinks related to low appetite and hypoglycemia. Admits to baseline DE ANDA Denies edema Respiratory: denies cough Genitourinary: denies frequency, pink or bloody urine or dysuria.Denies nocturia Does feel they empty bladder fully. Psychiatric: denies depression or anxiety. Reports energy level is good PHYSICAL EXAM BP: BP 166/69 (BP Site: Right Arm, BP Position: Sitting, BP Cuff Size: Regular Adult) Pulse 60 Resp 16 Ht 175.3 cm (5' 9) Wt 68 kg (149 lb 14.6 oz) BMI 22.14 kg/m BP - standardized method Pulse 1 BP #1: 165/69 Pulse #1: 60 beats/min 2 BP #2 : 166/70 Pulse #2 : 60 beats/min 3 BP #3 : 166/68 Pulse #3 : 60 beats/min Average Average BP: 166/69 Average Pulse: 60 beats/min Orthostatic vitals Supine Sitting Standing BP cuff location BP cuff location: Right upper arm BP cuff size BP cuff size: regular adult Comments for BP values First BP (right) First BP (left) Constitutional: No acute distress, Responsive, Thin, and Well-nourished Cardiovascular:No peripheral edema Regular rate and rhythm, normal S1 and S2, no murmurs Respiratory: Normal respiratory effort. Extremities: No peripheral edema Neurological: Alert and oriented x3. Psychiatric: Alert and oriented x self, place, time, and setting Normal mood/affect Pleasant - ?cognitive ability with medications and understanding of his kidney disease Diagnostic tests reviewed for today's visit Labs: Latest Ref Rng 05/20/2024 06/03/2024 09/24/2024 RENAL KIDNEY STONE FLOWSHEET EGFR, All Other >=60 mL/min/1.73m 16 (L) 14 (L) Creatinine 0.73 - 1.22 mg/dL 4.00 (H) 4.39 (H) BUN 9 - 24 mg/dL 58 (H) 68 (H) Sodium 136 - 144 mmol/L 141 139 Potassium 3.7 - 5.1 mmol/L 4.4 4.6 Chloride 98 - 107 mmol/L 107 109 (H) CO2 22 - 30 mmol/L 20 (L) 19 (L) Glucose 74 - 99 mg/dL 141 (H) 133 (H) Calcium 8.5 - 10.2 mg/dL 9.3 9.3 Phosphorus 2.7 - 4.8 mg/dL 4.5 Albumin 3.9 - 4.9 g/dL 4.1 4.0 WBC 3.70 - 11.00 k/uL 6.82 7.27 7.58 HGB 13.0 - 17.0 g/dL 8.1 (L) 7.6 (L) 8.0 (L) HCT 39.0 - 51.0 % 24.4 (L) 23.4 (L) 24.3 (L) PLT 150 - 400 k/uL 216 214 232 PTH Intact 15 - 65 pg/mL 17 Vitamin D25 Hydroxy 31.0 - 80.0 ng/mL Kidney imaging: not on file. ASSESSMENT: Pt is an 68 year old male being seen today in FU for CKD with proteinuria likely in thesetting of diabetic nephropathy. PMH: DM, HTN, CVA, complete heart block, carotid stenosis, metabolic acidosis and hyperlipidemia CKD Stage 5 with proteinuria likely in the setting of diabetic nephropathy -Creatinine 4.39 mg/dL. Above new baseline in May 2024 -Baseline serum creatinine 2.8- 3.1 mg/dL but trending up and now 3.1- 3.8mg/dL -Proteinuria: Protein creatinine ratio 2.79 in May 2024 and improved from 4.07 in December 2023 -albuminuria: albumin creatinine ratio 2431 in December 2023 On ARB Monoclonal gammopathy and compliments negative in November 2023 -does not like needles and doesn't want to have to go for dialysis 3 times per week at a facility. PD would be best option and he would want something done I have concerns that he could do PD at home alone -sent last visit for for dialysis education and had not been able to connect to get this arranged. Does not have computer access. Will send to [facility] for this reason. -reviewed again proximity to dialysis and explained it briefly. Will also add cystatin C given small frame HTN/Volume: - controlled on current regimen per his most recent MD appts. Never got BP cuff although prescribedtwice. Higher in office today -Volume: euvolemic -Currently on amlodipine 10mg daily, hydralazine 50mg tid, losartan 25mg daily and metoprolol succinate 100mg daily BPH -on tamsulosin -follows with urology- last seen 2021 Metabolic/electrolytes: Hx metabolic acidosis K+- 4.6 wnl Co2- 19 below goal On sodium bicarb 650mg bid- unsure if he's taking it but will check Anemia: Hx anemia -Hgb 8.0 below goal - now following with hematology -denies overt losses- denies hematuria or melena -continue to monitor along with iron stores to assess for need of PAULA. Metabolic Bone: Hx of vitamin D deficiency and hypervitaminosis -Ca+ 9.3 wnl -Phos: 4.5 wnl in May 2024 -Vitamin D: 119.0- above goal in Apr 2024- stop supplement recommend discontinuation of supplemental D3 in May 2024 -PTH: 17 wnl in May 2024 CV/Lipids: -hx of hyperlipidemia -on statin -recommend LDL goal of <100 to prevent progression of CKD. DM: -Last HgbA1c 5.3- controlled -follow up with PCP/endo PLAN: -we need a plan for dialysis which will be likely given your continued poor kidney function. Pleasediscuss with family and we can help arrange education for you so you know what it involves. We willcall [phone] to arrange with you -Please get blood work monthly at [facility] so we can check on kidney function -follow up with PCP and hematology as planned -Recommend BP goal of 130s/80 or less. Please contact the office if your blood pressure is less than 110/70 or higher than 150/90. Normal heart rate/pulse is 60-100 beats per minute. Please let us know if you are consistently less than 60 beats or over 100 beats when at rest. -Good diabetes, blood pressure and cholesterol control are important to prevent kidney disease progression -Continue to follow with your specialists including hematology and PCP as planned -Follow low salt diet. (1/2 tsp salt) <2 grams or 2000mg -Please watch your protein intake and limit it to 3 ounces of protein per meal -Recommend HgbA1c of 7 or less as CKD goal. -Please avoid Advil, Ibuprofen(Motrin), Aleve(Naproxen), Meloxicam(Mobic), diclofenac and other pain/arthritis medications called NSAIDS. It is ok to take acetaminophen (Tylenol) for pain as needed -Please avoid contrast dye with imaging. If a provider wants to order CT or MRI with contrast, please let them know you have decreased kidney function. -Increase activity as tolerated. RTC 3 months with labs monthly (standing orders in) Janice Hodges CNP I spent a total of 39 minutes on the date of the service which included preparing to see the patient, [id number] patient care, completing clinical documentation, performing a medically appropriate examination, counseling and educating the patient/family/caregiver and ordering medications, tests, or procedures. Pt will need continued regular follow up (G2211) with nephrology documented in this encounterBluffton [facility]02-24-2025 NoteDay[facility]02-24-2025 Instructions* Patient Instructions* Janice Hodges APRN.ELROY - 09/30/2024 11:04 AM EST PLAN: -we need a plan for dialysis which will be likely given your continued poor kidney function. Pleasediscuss with family and we can help arrange education for you so you know what it involves. We willcall [phone] to arrange with you -Please get blood work monthly at [facility] so we can check on kidney function -follow up with PCP and hematology as planned -Recommend BP goal of 130s/80 or less. Please contact the office if your blood pressure is less than 110/70 or higher than 150/90. Normal heart rate/pulse is 60-100 beats per minute. Please let us know if you are consistently less than 60 beats or over 100 beats when at rest. -Good diabetes, blood pressure and cholesterol control are important to prevent kidney disease progression -Continue to follow with your specialists including hematology and PCP as planned -Follow low salt diet. (1/2 tsp salt) <2 grams or 2000mg -Please watch your protein intake and limit it to 3 ounces of protein per meal -Recommend HgbA1c of 7 or less as CKD goal. -Please avoid Advil, Ibuprofen(Motrin), Aleve(Naproxen), Meloxicam(Mobic), diclofenac and other pain/arthritis medications called NSAIDS. It is ok to take acetaminophen (Tylenol) for pain as needed -Please avoid contrast dye with imaging. If a provider wants to order CT or MRI with contrast, please let them know you have decreased kidney function. -Increase activity as tolerated. RTC 3 months with labs monthly (standing orders in) Please bring a complete list of your medications, the dosage and times taken - to every visit. Please contact me by phone or via My Chart for any questions or concerns. We want to know that ALL of your concerns/needs relevant to this visit- were met today and that we have hopefully exceeded your expectations. If not-please let us know how we can improve our service to you by calling [phone] You may be receiving a survey regarding your care today. If you do, please take a few minutes to fill it out and send it back. It would be greatly appreciated. documented in this encounterBluffton Hospital02-19-2025 Telephone encounter Note * Telephone Encounter - Octavio Monsalve - 09/25/2024 3:27 PM EST Patient of Dr. Freire. Iron studies have improved but it looks like he has missed his follow ups with Dr. Freire. Still needs scopes. Can you please make sure that he is scheduled for follow up with Dr. Freire after scopes ? Thank you, Octavio [facility] Work Phone: [phone]) 346-668302-19-2025 Miscellaneous Notes* Telephone Encounter - Octavio Monsalve - 09/25/2024 3:27 PM EST Patient of Dr. Freire. Iron studies have improved but it looks like he has missed his follow ups with Dr. rFeire. Still needs scopes. Can you please make sure that he is scheduled for follow up with Dr. Freire after scopes ? Thank you, Octavio documented in this encounterBluffton Hospital02-18-2025 NoteDay[facility]02-18-2025 History of Present illness Narrative* Angie Mercado PA-C - 09/24/2024 10:05 AM EST 09/24/2024 Patient presents with: F/U 3 Month SUBJECTIVE: This is a 68 year old with intellectual delays, lives alone. Has a home health aid thatis here today for 3 month follow up. Has some family support. Requesting refill on Depends diapers. Otherwise tells me he feels well without complaint. Other iron deficiency anemia, Anemia associated with stage 4 chronic renal failure Follows with hematology and nephrology. Scheduled with nephrology on 09/30, and due for labs with hematology-ordered. Had iron infusions. Stage 4 CRF -scheduled with nephrology 09/30. Essential hypertension -taking medication regularly. Denies any symptoms of chest pain, SOB, COWAN, vision changes, leg swelling. BPH-follows with urology, denies any new symptoms. Currently on flomax. Hyperlipidemia Due for labs. Currently lipitor 80 mg, denies myalgias, SE of medication. 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 Currently on insulin. Taking medications as prescribed per patient. Tells me he checks his BG readings in the morning, recalls a BG reading of 118. Last A1C well controlled, but Hgb <8. Referred by PCP to endocrinology. Was unable to see provider at scheduled appointment, has not rescheduled. Denies hypoglycemic episodes. 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 Dyslipidemia Embolism and thrombosis of unspecified site 04/25/2008 Essential hypertension, benign Family history of malignant neoplasm of gastrointestinal tract Non-proliferative diabetic retinopathy, mild, both eyes ([facility]) 10/11/2017 Non-proliferative diabetic retinopathy, moderate, both eyes ([facility]) 10/14/2019 Other specific developmental learning difficulties Pneumonia 07/07/2015 Dx at [facility] ER Psoriasis and similar disorders Pure hypercholesterolemia Pure hyperglyceridemia Right thalamic infarction ([facility]) 02/18/2019 [facility] Stenosis of carotid artery Stroke ([facility]) Tietze's disease Tinea unguium 12/01/2017 Type II or unspecified type diabetes mellitus with neurological manifestations, not stated as uncontrolled(250.60) ALLERGIES Lopid [Gemfibrozil] and Metformin MEDICATIONS Current Outpatient Medications Medication Sig amLODIPine (NORVASC) 10 mg tablet Take 1 tablet by mouth once daily. tamsulosin (FLOMAX) 0.4 mg Take 1 capsule by mouth daily at bedtime. Senna 8.6 mg tab Take 1 tablet by mouth three times a day as needed. atorvastatin (LIPITOR) 80 mg tablet Take 1 tablet by mouth every morning. metoprolol succinate ER (TOPROL XL) 100 mg Take 1 tablet by mouth every morning. alcohol swabs (ALCOHOL PREP PADS) Apply 1 application to affected area TID with insulin injection aspirin, enteric coated (ADULT LOW DOSE ASPIRIN) 81 mg EC tablet Take 1 tablet by mouth every morning. hydrALAZINE (APRESOLINE) 50 mg tablet Take 1 tablet by mouth every 8 hours. DAILY-YOUSUF, WITH FOLIC ACID, 400 mcg Take 1 tablet by mouth once daily. traZODone (DESYREL) 50 mg tablet Take 1-2 tablets by mouth daily at bedtime. clopidogrel (PLAVIX) 75 mg tablet Take 1 tablet by mouth once daily. insulin glargine (LANTUS SOLOSTAR U-100 INSULIN) 100 unit/mL (3 mL) Inject 20 Units subcutaneously every morning. Diclofenac Sodium 3 % gel Apply 0.5 g to affected area once daily. blood sugar diagnostic (BLOOD GLUCOSE TEST) test strip Test blood sugar(s) three times daily. Dx: Type 2 DM - Uncontrolled E11.65 Insulin: Yes losartan (COZAAR) 25 mg tablet Take 1 tablet by mouth once daily. sodium bicarbonate 650 mg tablet Take 1 tablet by mouth two times a day. Take by mouth as directed. Blood Pressure Monitor 1 Each as directed. Diaper,Brief, Adult,Disposable (DEPEND UNDERWEAR FOR MEN SM-) 1 Each as needed. Insulin [place], Disposable, (BD ULTRA-FINE LUIS PEN NEEDLE) 32 gauge x 5/32 Use one needle daily for each insulin dose, 4 x's daily. Type 2 DM, insulin dependent. Lancets lancets Test blood sugar(s) one times daily. Dx: Type 2 DM - Uncontrolled E11.65 Insulin: Yes MEDICAL SUPPLY Hospital bed with rails. Blood-Glucose Meter 1 Device as directed. melatonin 3 mg tablet Take 1 tablet by mouth daily at bedtime. glucose (DEX4 GLUCOSE) 4 gram chewable tablet Take 4 tablets by mouth as needed. Lancing Device (LANCING DEVICE WITH LANCETS) [facility] [place] Use to check blood sugars as directed COMPOUNDED PRESCRIPTION Diabetic shoes: DIABETES MELLITUS- uncontrolled with neuropathy Syringe with Needle, Safety (BD INTEGRA) 3 mL 22 x 1 1/2 syrg Uses twice a month for testosterone injections insulin lispro (HUMALOG KWIKPEN INSULIN) 100 unit/mL Inject 2 Units subcutaneously three times a day before meals. Miscellaneous Medical Supply (BLOOD PRESSURE CUFF) 1 Each once daily. No current facility-administered medications for this visit. SOCIAL HISTORY Social History Tobacco Use Smoking status: Former Types: Cigars Quit date: 1994 Years since quittin.1 Smokeless tobacco: Never Vaping Use Vaping status: Never Used Substance Use Topics Alcohol use: No Drug use: No REVIEW OF SYSTEMS See HPI OBJECTIVE: BP 118/64 Pulse 67 Resp 16 Wt 69.5 kg (153 lb 3.2 oz) SpO2 99% BMI 22.62 kg/m APPEARANCE Well appearing, alert, smiling, in no acute distress, well-hydrated, well nourished. EYES PERRLA, conjunctiva and sclera normal. NECK Supple, no adenopathy; thyroid symmetric, normal size HEART RRR with normal S1 and S2, no murmurs, LUNG clear to auscultation, No wheezing, rhonchi, rales. EXTREMITIES Extremities normal, No deformities, No skin discoloration, No edema, and Normal pulses bilaterally. ASSESSMENT/PLAN: 1. Screening for colon cancer - ICD9: V76.51, ICD10: Z12.11 (primary diagnosis) Patient was scheduled for EGD, cancelled. Advise that he reschedule with general surgery for evaluation with anemia. Patient agrees 2. Screening for depression - ICD9: V79.0, ICD10: Z13.31 - DEPRESSION SCREENING 3. Encounter for screening examination for other mental health and behavioral disorders - ICD9: V79.8, ICD10: Z13.39 - ANXIETY SCREENING 4. Diarrhea, unspecified type - ICD9: 787.91, ICD10: R19.7 Refill today - DEPEND UNDERWEAR FOR MEN SMALL-MEDIUM 5. Other iron deficiency anemia - ICD9: 280.8, ICD10: D50.8 Follows with hematology. Denies new symptoms, fatigue, dizziness 6. Essential hypertension, benign - ICD9: 401.1, ICD10: I10 - Controlled - Recommend home blood pressure monitoring, to bring results to next visit - Encouraged sodium restriction, DASH or Mediterranean diet - Recommend regular aerobic exercise 7. Pure hypercholesterolemia - ICD9: 272.0, ICD10: E78.00 Recheck labs - COMPREHENSIVE METABOLIC PANEL - LIPID PANEL BASIC 8. Type 2 diabetes mellitus with stage 3b chronic kidney disease, with long-term current use of insulin (HCC) - ICD9: 250.40, 585.3, V58.67, ICD10: E11.22, N18.32, Z79.4 Continue current medications-reschedule with endocrinology - COMPREHENSIVE METABOLIC PANEL - LIPID PANEL BASIC - HEMOGLOBIN A1C 9. Anemia associated with stage 4 chronic renal failure (HCC) (HCC) - ICD9: 285.21, 585.4, ICD10: N18.4, D63.1 Follow with hematology and nephrology The patient indicates understanding of these issues and agrees with the plan. Reviewed red flags and when to seek care sooner. Angie Mercado PA-C documented in this encounterBl[facility]01-29-[facility]25 Telephone encounter Note * Telephone Encounter - Brittnee Chapman RN - 09/04/2024 3:54 PM EST The patient has been identified by name and date of : Yes Caregiver verified no other encounters exist for this prescription request: Yes Caregiver confirmed with patient/requestor that no other refills are due, in the near future, with this provider at this time: Yes The last office visit in the department: 05/09/2024 Does the patient have a future office visit with this provider/department: Yes 09/20/2024 Requested Prescriptions Pending Prescriptions Disp Refills amLODIPine (NORVASC) 10 mg tablet 30 tablet 11 Sig: Take 1 tablet by mouth once daily. Brittnee Chapman RN [facility]01-29-[facility] Miscellaneous Notes* Telephone Encounter - Brittnee Chapman RN - 09/04/2024 3:54 PM EST The patient has been identified by name and date of : Yes Caregiver verified no other encounters exist for this prescription request: Yes Caregiver confirmed with patient/requestor that no other refills are due, in the near future, with this provider at this time: Yes The last office visit in the department: 05/09/2024 Does the patient have a future office visit with this provider/department: Yes 09/20/2024 Requested Prescriptions Pending Prescriptions Disp Refills amLODIPine (NORVASC) 10 mg tablet 30 tablet 11 Sig: Take 1 tablet by mouth once daily. Brittnee Chapman RN documented in this encounterBluffton Hospital01-28-2025 Telephone encounter Note * Telephone Encounter - Santa Rudolph - 09/03/2024 11:40 AM EST Prescription Refill Information The patient has been identified by name and date of : Yes Caregiver verified no other encounters exist for this prescription request: Yes Caregiver confirmed with patient/requestor that no other refills are due, in the near future, with this provider at this time: Yes The last office visit in the department: 05-09-24 Does the patient have a future office visit with this provider/department: Yes Requested Prescriptions Pending Prescriptions Disp Refills tamsulosin (FLOMAX) 0.4 mg 90 capsule 3 Sig: Take 1 capsule by mouth daily at bedtime. Santa Hayes September 03, 2024 11:41 AM [facility] Work Phone: [phone] Miscellaneous Notes* Telephone Encounter - Santa Rudolph - 09/03/2024 11:40 AM EST Prescription Refill Information The patient has been identified by name and date of : Yes Caregiver verified no other encounters exist for this prescription request: Yes Caregiver confirmed with patient/requestor that no other refills are due, in the near future, with this provider at this time: Yes The last office visit in the department: 05-09-24 Does the patient have a future office visit with this provider/department: Yes Requested Prescriptions Pending Prescriptions Disp Refills tamsulosin (FLOMAX) 0.4 mg 90 capsule 3 Sig: Take 1 capsule by mouth daily at bedtime. Santa Hayes September 03, 2024 11:41 AM documented in this encounterBluffton Hospital01-22-2025 Telephone encounter Note * Telephone Encounter - Lyric Pedroza RN - 08/28/2024 1:10 PM EST Attempted to reach patient again today. Cell number is his sister's number. She stated that the home number is his number and to call that and if he doesn't answer to let her know and she will call him and tell him to answer his phone. I attempted the home number but it goes right to a recording that states that patient is not available and to try again later. I called his sister back and she said that she would call him and then to try him again. I tried the home number again twice following that and it still goes to the same recording. [facility]01-22-[facility]25 Miscellaneous Notes* Telephone Encounter - Lyric Pedroza RN - 08/28/2024 1:10 PM EST Attempted to reach patient again today. Cell number is his sister's number. She stated that the home number is his number and to call that and if he doesn't answer to let her know and she will call him and tell him to answer his phone. I attempted the home number but it goes right to a recording that states that patient is not available and to try again later. I called his sister back and she said that she would call him and then to try him again. I tried the home number again twice following that and it still goes to the same recording. * Telephone Encounter - Denise Gallo LPN - 08/27/2024 1:04 PM EST Attempted to call patient to relay the message from Janice Hodges,voice message on his phone stateshe is not available and then disconnects, called alternate number spoke with sister, she did not want to speak for her brother. Attempted again to call patient got the same recording. Will try again to reach him at a later time. * Telephone Encounter - Denise Gallo LPN - 08/27/2024 1:02 PM EST ----- Message from Janice Hodges APRN.HELIARC WELDER sent at 08/27/2024 12:54 PM EST ----- Hi Do you mind calling him to make sure he gets labs prior to appt on Thurs? He lives far and I don't want him to waste the trip out in the weather. I'm ok if he gets them downstairs just before he seesme, but he was supposed to get monthly labs and has not done it. We have been trying since May to get him set up for dialysis education and can't connect so I'm a little worried Thanks! documented in this encounterBluffton Hospital01-21-2025 Telephone encounter Note * Telephone Encounter - Denise Gallo LPN - 08/27/2024 1:04 PM EST Attempted to call patient to relay the message from Janice Hodges,voice message on his phone stateshe is not available and then disconnects, called alternate number spoke with sister, she did not want to speak for her brother. Attempted again to call patient got the same recording. Will try again to reach him at a later time. [facility]01-21-[facility] Telephone encounter Note* Telephone Encounter - Denise Gallo LPN - 08/27/2024 1:02 PM EST ----- Message from Janice Hodges APRN.HELIARC WELDER sent at 08/27/2024 12:54 PM EST ----- Hi Do you mind calling him to make sure he gets labs prior to appt on Thurs? He lives far and I don't want him to waste the trip out in the weather. I'm ok if he gets them downstairs just before he seesme, but he was supposed to get monthly labs and has not done it. We have been trying since May to get him set up for dialysis education and can't connect so I'm a little worried Thanks! [facility]01-02-2025 Telephone encounter Note* Telephone Encounter - Kasey Greenwood LPN - 08/08/2024 11:38 AM EST Pt called [facility] and states he would like to cancel upcoming endoscopy next Monday. [facility]01-02-2025 Miscellaneous Notes* Telephone Encounter - Kasey Greenwood LPN - 08/08/2024 11:38 AM EST Pt called [facility] and states he would like to cancel upcoming endoscopy next Monday. * Telephone Encounter - Jak Stokes - 06/13/2024 11:10 AM EST 08-19-2024 Colon EGD [place] , patient was given all prep information by provider, patient was givendirect number to call if they have any questions Jak Stokes documented in this encounterBluffton Hospital12-31-2024 Telephone encounter Note * Telephone Encounter - Radha Santiago RN - 08/06/2024 11:23 AM EST Per Livier at [facility], pt had requested the Senna to be put in his packets to take three times a day. The patient has been identified by name and date of : Yes Caregiver verified no other encounters exist for this prescription request: Yes Caregiver confirmed with patient/requestor that no other refills are due, in the near future, with this provider at this time: Yes The last office visit in the department: 05/09/2024 Does the patient have a future office visit with this provider/department: Yes 09/20/2024 Requested Prescriptions Pending Prescriptions Disp Refills Senna 8.6 mg tab 90 tablet 2 Sig: Take 1 tablet by mouth three times a day as needed. atorvastatin (LIPITOR) 80 mg tablet 28 tablet 11 Sig: Take 1 tablet by mouth every morning. metoprolol succinate ER (TOPROL XL) 100 mg 30 tablet 11 Sig: Take 1 tablet by mouth every morning. Radha Santiago RN August 06, 2024 11:23 AM [facility]12-31-2024 Miscellaneous Notes* Telephone Encounter - Radha Santiago RN - 08/06/2024 11:23 AM EST Per Livier at [facility], pt had requested the Senna to be put in his packets to take three times a day. The patient has been identified by name and date of : Yes Caregiver verified no other encounters exist for this prescription request: Yes Caregiver confirmed with patient/requestor that no other refills are due, in the near future, with this provider at this time: Yes The last office visit in the department: 05/09/2024 Does the patient have a future office visit with this provider/department: Yes 09/20/2024 Requested Prescriptions Pending Prescriptions Disp Refills Senna 8.6 mg tab 90 tablet 2 Sig: Take 1 tablet by mouth three times a day as needed. atorvastatin (LIPITOR) 80 mg tablet 28 tablet 11 Sig: Take 1 tablet by mouth every morning. metoprolol succinate ER (TOPROL XL) 100 mg 30 tablet 11 Sig: Take 1 tablet by mouth every morning. Radha Santiago RN August 06, 2024 11:23 AM documented in this encounterBluffton Hospital12-05-2024 Telephone encounter Note * Telephone Encounter - Rema Ness RN - 07/11/2024 4:33 PM EST Patient reports severe pain in right calf since 4 am today. Reports the pain is constant, and it hurts to walk. Pt denies swelling, reddness, numbness. Reports muscle feels tight. Protocol recommends see provider in 4 hours, however since it is late in the day and no available appts, advised patient to ER, to r/o DVT. Patient agreeable and states he will find someone to take him. Reason for Disposition [1] Thigh or calf pain AND [2] only 1 side AND [3] present > 1 hour (Exception: Chronic unchanged pain.) Answer Assessment - Initial Assessment Questions 1. ONSET: 4 am today 2. LOCATION:Right lower leg calf pain 3. PAIN: 8/10 able to walk but painful, feels better when not walking mild. 4. WORK OR EXERCISE: No recent work or exercise. 5. CAUSE: Doesn't know. 6. OTHER SYMPTOMS: No swelling, no cordero, no reddness, no numbness or tingling, no bumps. Reports muscle feels tight. Sleeps in a hospital bed. 7. : N/A Protocols used: Leg [id number] [facility]12-05-2024 Miscellaneous Notes* Telephone Encounter - Rema Ness RN - 07/11/2024 4:33 PM EST Patient reports severe pain in right calf since 4 am today. Reports the pain is constant, and it hurts to walk. Pt denies swelling, reddness, numbness. Reports muscle feels tight. Protocol recommends see provider in 4 hours, however since it is late in the day and no available appts, advised patient to ER, to r/o DVT. Patient agreeable and states he will find someone to take him. Reason for Disposition [1] Thigh or calf pain AND [2] only 1 side AND [3] present > 1 hour (Exception: Chronic unchanged pain.) Answer Assessment - Initial Assessment Questions 1. ONSET: 4 am today 2. LOCATION:Right lower leg calf pain 3. PAIN: 8/10 able to walk but painful, feels better when not walking mild. 4. WORK OR EXERCISE: No recent work or exercise. 5. CAUSE: Doesn't know. 6. OTHER SYMPTOMS: No swelling, no cordero, no reddness, no numbness or tingling, no bumps. Reports muscle feels tight. Sleeps in a hospital bed. 7. : N/A Protocols used: Leg [id number] documented in this encounterBluffton Hospital12-04-2024 Telephone encounter Note * Telephone Encounter - Virginia Brito RN - 07/10/2024 2:45 PM EST The patient has been identified by name and date of : Yes Caregiver verified no other encounters exist for this prescription request: Yes Caregiver confirmed with patient/requestor that no other refills are due, in the near future, with this provider at this time: Yes The last office visit in the department: 05/09/2024 Does the patient have a future office visit with this provider/department:09/06/2024 Requested Prescriptions Pending Prescriptions Disp Refills aspirin, enteric coated (ADULT LOW DOSE ASPIRIN) 81 mg EC tablet 90 tablet 3 Sig: Take 1 tablet by mouth every morning. hydrALAZINE (APRESOLINE) 50 mg tablet 270 tablet 0 Sig: Take 1 tablet by mouth every 8 hours. Virginia Brito RN July 10, 2024 2:46 PM [facility]12-04-2024 Miscellaneous Notes* Telephone Encounter - Virginia Brito RN - 07/10/2024 2:45 PM EST The patient has been identified by name and date of : Yes Caregiver verified no other encounters exist for this prescription request: Yes Caregiver confirmed with patient/requestor that no other refills are due, in the near future, with this provider at this time: Yes The last office visit in the department: 05/09/2024 Does the patient have a future office visit with this provider/department:09/06/2024 Requested Prescriptions Pending Prescriptions Disp Refills aspirin, enteric coated (ADULT LOW DOSE ASPIRIN) 81 mg EC tablet 90 tablet 3 Sig: Take 1 tablet by mouth every morning. hydrALAZINE (APRESOLINE) 50 mg tablet 270 tablet 0 Sig: Take 1 tablet by mouth every 8 hours. Virginia Brito RN July 10, 2024 2:46 PM documented in this encounterBluffton Hospital12-03-2024 Telephone encounter Note * Telephone Encounter - Oliva Luis RN - 07/09/2024 11:02 AM EST Joseline from [facility] and states that patient is requesting refills on alcohol prep pads. Patientuses alcohol prep pads three times a day. Joseline asking if prescription can be sent over to pharmacy this way so they can get it covered by insurance. The patient has been identified by name and date of : Yes Caregiver verified no other encounters exist for this prescription request: Yes Caregiver confirmed with patient/requestor that no other refills are due, in the near future, with this provider at this time: Yes The last office visit in the department: 05/09/2024 Does the patient have a future office visit with this provider/department: Yes 09/06/2024 Requested Prescriptions Pending Prescriptions Disp Refills alcohol swabs (ALCOHOL PREP PADS) 100 Each 3 Sig: Apply 1 application to affected area TID with insulin injection Oliva Luis RN July 09, 2024 11:03 AM [facility]12-03-2024 Miscellaneous Notes* Telephone Encounter - Oliva Luis RN - 07/09/2024 11:02 AM EST Joseline from [facility] and states that patient is requesting refills on alcohol prep pads. Patientuses alcohol prep pads three times a day. Joseline asking if prescription can be sent over to pharmacy this way so they can get it covered by insurance. The patient has been identified by name and date of : Yes Caregiver verified no other encounters exist for this prescription request: Yes Caregiver confirmed with patient/requestor that no other refills are due, in the near future, with this provider at this time: Yes The last office visit in the department: 05/09/2024 Does the patient have a future office visit with this provider/department: Yes 09/06/2024 Requested Prescriptions Pending Prescriptions Disp Refills alcohol swabs (ALCOHOL PREP PADS) 100 Each 3 Sig: Apply 1 application to affected area TID with insulin injection Oliva Luis RN July 09, 2024 11:03 AM documented in this encounterBluffton Hospital12-02-2024 Telephone encounter Note * Telephone Encounter - Mel Edwards LISW - 07/08/2024 10:29 AM EST SOCIAL WORK FOLLOW UP NOTE: [facility] Pt noted on [facility] 1st time treatment report. Pt has a non-oncology regimen. No social work followup indicated. FLACA Mendez-Frederick [facility]12-02-2024 Miscellaneous Notes* Telephone Encounter - Mel Edwards LISW - 07/08/2024 10:29 AM EST SOCIAL WORK FOLLOW UP NOTE: [facility] Pt noted on [facility] 1st time treatment report. Pt has a non-oncology regimen. No social work followup indicated. FLACA Mendez-Frederick documented in this encounterBluffton Hospital11-25-2024 [facility] History of Present illness Narrative* Katelyn Leyva MD - 07/01/2024 10:25 AM EST Patient arrived 1 hr before the appointment but left before the time of visit. He was not seen today, and is considered a no show documented in this encounterBluffton Hospital11-22-2024 [facility]Day[facility]11-[facility] History of Present illness Narrative* Jorge Kam RN - 06/28/2024 2:38 PM ESTSummary: Unable to reach follow up There have been multiple attempts to try to reach Mr. Julien without resolution, the unable to reach letter Eugenia provided as well as the 2 weeks wait period after the unable to reach letter is mailedout have also been done. Per our new protocol we are to notify you of this and ask that you speak with Mr. Julien at his next scheduled office/virtual visit. His name will be removed from the list of people who we are trying to reach who need the CKD education and replaced after they have spoken to you and you notify me to add his name back to the CKD education list. Jorge Kam RN June 28, 2024 2:40 PM documented in this encounterBluffton Hospital11-20-2024 Telephone encounter Note * Telephone Encounter - Annalee Carpio RN - 06/26/2024 10:49 AM EST Endoscopy was cancelled. Annalee Carpio RN [facility]11-20-2024 Miscellaneous Notes* Telephone Encounter - Annalee Carpio RN - 06/26/2024 10:49 AM EST Endoscopy was cancelled. Annalee Carpio RN * Telephone Encounter - Donna Haynes APRN.CNP - 06/13/2024 11:09 AM EST Can you please call Lou and let him know I spoke with Dr. Nice and d/t his CKD stage 4. I wanthim to do 2 days of clear liquids & drink 1/2 the jug on day 1 and the other half on day 2 of the clear liquid diet. Thank you, Donna Haynes APRN.CNP documented in this encounterBluffton Hospital11-19-2024 Telephone encounter Note * Telephone Encounter - Oliva Gongora - 06/25/2024 1:49 PM EST Patient returned call and was scheduled as directed. Oliva Gongora [facility]11-19-2024 Miscellaneous Notes* Telephone Encounter - Oliva Gongora - 06/25/2024 1:49 PM EST Patient returned call and was scheduled as directed. Oliva Gongora * Telephone Encounter - Oliva Gongora - 06/24/2024 4:24 PM EST ATC patient but no answer and no voicemail set up at this time. Spoke with patient's sister (mobile#) and asked her to have him call our office to schedule appointments. Oliva Gongora * Telephone Encounter - Oliva Gongora - 06/18/2024 3:33 PM EST ATC but no answer and no voicemail. (Automated message that patient is unavailable.) * Telephone Encounter - Sayda Moreno LPN - 06/18/2024 8:36 AM EST Left detailed message on identified voicemail to check his my chart. PSS please reach out to pt. To schedule for 5 doses of iron sucrose. Repeat CBC and iron studies about 3 to 4 weeks after completing iron. Sayda Moreno LPN * Telephone Encounter - Nini Freire DO - 06/17/2024 5:23 PM EST Most recent blood work he had shows that his iron levels are not quite adequate for the degree of kidney dysfunction yes. Please schedule for 5 doses of iron sucrose. Repeat CBC and iron studies about 3 to 4 weeks after completing iron. [facility] Telephone encounter Note * Telephone Encounter - Oliva Gongora - 06/24/2024 4:24 PM EST ATC patient but no answer and no voicemail set up at this time. Spoke with patient's sister (mobile#) and asked her to have him call our office to schedule appointments. Oliva Bragg [facility]11-12-2024 Telephone encounter Note* Telephone Encounter - Oliva Gongora - 06/18/2024 3:33 PM EST ATC but no answer and no voicemail. (Automated message that patient is unavailable.) [facility]11-12-2024 Telephone encounter Note* Telephone Encounter - Rema Ness RN - 06/18/2024 11:33 AM EST The patient has been identified by name and date of : Yes Caregiver verified no other encounters exist for this prescription request: Yes Caregiver confirmed with patient/requestor that no other refills are due, in the near future, with this provider at this time: Yes The last office visit in the department: 05/09/2024 Does the patient have a future office visit with this provider/department: Yes 08/12/2024 Requested Prescriptions Pending Prescriptions Disp Refills traZODone (DESYREL) 50 mg tablet 60 tablet 5 Sig: Take 1-2 tablets by mouth daily at bedtime. Rema Ness RN June 18, 2024 11:33 AM [facility]11-12-2024 Miscellaneous Notes* Telephone Encounter - Rema Ness RN - 06/18/2024 11:33 AM EST The patient has been identified by name and date of : Yes Caregiver verified no other encounters exist for this prescription request: Yes Caregiver confirmed with patient/requestor that no other refills are due, in the near future, with this provider at this time: Yes The last office visit in the department: 05/09/2024 Does the patient have a future office visit with this provider/department: Yes 08/12/2024 Requested Prescriptions Pending Prescriptions Disp Refills traZODone (DESYREL) 50 mg tablet 60 tablet 5 Sig: Take 1-2 tablets by mouth daily at bedtime. Rema Ness RN June 18, 2024 11:33 AM [facility] Telephone encounter Note * Telephone Encounter - Sayda Moreno LPN - 06/18/2024 8:36 AM EST Left detailed message on identified voicemail to check his my chart. PSS please reach out to pt. To schedule for 5 doses of iron sucrose. Repeat CBC and iron studies about 3 to 4 weeks after completing iron. Sayda Moreno LPN [facility]11-11-2024 Telephone encounter Note* Telephone Encounter - Nini Freire DO - 06/17/2024 5:23 PM EST Most recent blood work he had shows that his iron levels are not quite adequate for the degree of kidney dysfunction yes. Please schedule for 5 doses of iron sucrose. Repeat CBC and iron studies about 3 to 4 weeks after completing iron. [facility]11-11-2024 Telephone encounter Note* Telephone Encounter - Brittnee Chapman RN - 06/17/2024 3:22 PM EST Attempted to reach patient at number listed to call. Patient's sister Suki answered phone and reports patient is not with her at this time. Sister reports she spoke with patient earlier today and he did not mention any concerns and has a hair cut appt this afternoon. Unable to triage patient at this time. Will close this encounter, as duplicate triage encounter noted. Brittnee Chapman RN [facility]11-11-2024 Miscellaneous Notes* Telephone Encounter - Brittnee Chapman RN - 06/17/2024 3:22 PM EST Attempted to reach patient at number listed to call. Patient's sister Suki answered phone and reports patient is not with her at this time. Sister reports she spoke with patient earlier today and he did not mention any concerns and has a hair cut appt this afternoon. Unable to triage patient at this time. Will close this encounter, as duplicate triage encounter noted. Brittnee Chapman RN * Telephone Encounter - Jennifer Marquez - 06/17/2024 2:16 PM EST Lou is calling Vera Manrique MD today with concern regarding patient has painful scabs on buttocks. Patient has been identified by name and birthdate. Duration of symptoms: 1 weeks Person calling: self Call patient at: on cell [phone] (home) [phone] (cell) Was an appointment scheduled: No Closing statement: Symptom Call: Thank you for calling [facility], your call is very important. A nurse will call in approximately 2-4 hours during business hours. If this is an emergency, please contact 911. Jennifer Marquez documented in [facility] encounterBluff[facility]11-[facility]-2024 Telephone encounter Note * Telephone Encounter - Brittnee Chapman RN - 06/17/2024 2:24 PM EST Attempted to reach patient at number listed to call. Patient's sister Suki answered phone and reports patient is not with her at this time. Sister reports she spoke with patient earlier today and he did not mention any concerns and has a hair cut appt this afternoon. Unable to triage patient at this time. Sister Suki states she will speak with patient and call back if she feels an appt is needed. Brittnee Chapman RN [facility]11-11-2024 Miscellaneous Notes* Telephone Encounter - Brittnee Chapman RN - 06/17/2024 2:24 PM EST Attempted to reach patient at number listed to call. Patient's sister Suki answered phone and reports patient is not with her at this time. Sister reports she spoke with patient earlier today and he did not mention any concerns and has a hair cut appt this afternoon. Unable to triage patient at this time. Sister Suki states she will speak with patient and call back if she feels an appt is needed. Brittnee Chapman RN documented in this encounterBluff[facility]11-11-2024 Telephone encounter Note * Telephone Encounter - Jennifer Marquez - 06/17/2024 2:16 PM EST Lou is calling Vera Manrique MD today with concern regarding patient has painful scabs on buttocks. Patient has been identified by name and birthdate. Duration of symptoms: 1 weeks Person calling: self Call patient at: on cell [phone] (home) [phone] (cell) Was an appointment scheduled: No Closing statement: Symptom Call: Thank you for calling [facility], your call is very important. A nurse will call in approximately 2-4 hours during business hours. If this is an emergency, please contact 911. Jennifer Marquez [facility]11-07-2024 Telephone encounter Note* Telephone Encounter - Oliva Gongora - 06/13/2024 4:10 PM EST Spoke with patient's sister and rescheduled. (Lab & OV were scheduled before procedure could bescheduled.) Oliva Gongora [facility]11-07-2024 Miscellaneous Notes* Telephone Encounter - Oliva Gongora - 06/13/2024 4:10 PM EST Spoke with patient's sister and rescheduled. (Lab & OV were scheduled before procedure could bescheduled.) Oliva Gongora * Telephone Encounter - Faviola Holman APRN.CNP - 06/13/2024 1:43 PM EST Please see check out note. Pt. needs to follow up with Dr. Freire after scopes are completed. Cancel his OV in July and move out after scopes are completed in 2024. Thank you. Faviola Holman APRN.HELIARC WELDER documented in this encounterBluff[facility] Hospital11-07-2024 Telephone encounter Note * Telephone Encounter - Pan Vivar LPN - 06/13/2024 2:43 PM EST Called and spoke to patients sister renetta to update on insulin. Voiced understanding, however, Renetta stated patient is non compliant and will do the best she can.Reminded Renetta that patient has an appointment with Dr Manrique in August 1 week before procedure and will review at that time. Renetta voiced understanding. Pan Vivar LPN June 13, 2024 2:46 PM [facility]11-07-2024 Miscellaneous Notes* Telephone Encounter - Pan Vivar LPN - 06/13/2024 2:43 PM EST Called and spoke to patients sister renetta to update on insulin. Voiced understanding, however, Renetta stated patient is non compliant and will do the best she can.Reminded Renetta that patient has an appointment with Dr Manrique in August 1 week before procedure and will review at that time. Renetta voiced understanding. Pan Vivar LPN June 13, 2024 2:46 PM * Telephone Encounter - Vera Manrique MD - 06/13/2024 1:36 PM EST Pan, Please call patient and let him know that he should only take lantus at 10 mgs for the 2 days that he will be doing the prep. From our records he is to take 10 mgs in the morning. The insulin lispro or any short acting insulin should not be taken during that time. Regards, Vera Manrique MD * Telephone Encounter - Donna Haynes APRN.ELROY - 06/13/2024 11:11 AM EST Please provide instructions regarding diabetic medications/ insulin for Lou while on 2 days of clear liquid diet for colonoscopy prep. Thank you, Donna Haynes APRN.HELIARC WELDER documented in this encounterBluff[facility] Hospital11-07-2024 Telephone encounter Note * Telephone Encounter - Faviola Holman APRN.ELROY - 06/13/2024 1:43 PM EST Please see check out note. Pt. needs to follow up with Dr. Freire after scopes are completed. Cancel his OV in July and move out after scopes are completed in 2024. Thank you. Faviola Holman APRN.HELIARC WELDER [facility] Work Phone: 1(683) 386-946011-07-2024 Telephone encounter Note* Telephone Encounter - Vera Manrique MD - 06/13/2024 1:36 PM EST Pan, Please call patient and let him know that he should only take lantus at 10 mgs for the 2 days that he will be doing the prep. From our records he is to take 10 mgs in the morning. The insulin lispro or any short acting insulin should not be taken during that time. Regards, Vera Manrique MD [facility]11-07-2024 History of Present illness Narrative* Jorge Kam RN - 06/13/2024 12:31 PM ESTSummary: Unable to reach letyter mailed out Unable to reach letter mailed to home:Will allow 2 week wait period period for Mr. Julien to scheduleCKD education ession with scheduling or with me. Jorge Kam RN June 13, 2024 1:10 PM documented in this encounterBluff[facility] Hospital11-07-2024 Telephone encounter Note * Telephone Encounter - Donna Haynes APRN.ELROY - 06/13/2024 11:11 AM EST Please provide instructions regarding diabetic medications/ insulin for Lou while on 2 days of clear liquid diet for colonoscopy prep. Thank you, Donna Haynes APRN.ELROY [facility]11-07-2024 Telephone encounter Note* Telephone Encounter - Jak Stokes - 06/13/2024 11:10 AM EST 08-19-2024 Colon EGD Kennedy , patient was given all prep information by provider, patient was givendirect number to call if they have any questions Jak Stokes [facility]11-07-2024 Telephone encounter Note* Telephone Encounter - Donna Haynes APRN.ELROY - 06/13/2024 11:09 AM EST Can you please call Lou and let him know I spoke with Dr. Nice and d/t his CKD stage 4. I wanthim to do 2 days of clear liquids & drink 1/2 the jug on day 1 and the other half on day 2 of the clear liquid diet. Thank you, Donna Haynes APRN.ELROY [facility] Work Phone: 1(407) 116-379911-07-2024 Telephone encounter Note* Telephone Encounter - Brittnee Chapman RN - 06/13/2024 10:22 AM EST The patient has been identified by name and date of : Yes Caregiver verified no other encounters exist for this prescription request: Yes Caregiver confirmed with patient/requestor that no other refills are due, in the near future, with this provider at this time: Yes The last office visit in the department: 05/09/2024 Does the patient have a future office visit with this provider/department: Yes 08/12/2024 Requested Prescriptions Pending Prescriptions Disp Refills clopidogrel (PLAVIX) 75 mg tablet 30 tablet 5 Sig: Take 1 tablet by mouth once daily. Brittnee Chapman RN [facility]11-07-2024 Miscellaneous Notes* Telephone Encounter - Brittnee Chapman RN - 06/13/2024 10:22 AM EST The patient has been identified by name and date of : Yes Caregiver verified no other encounters exist for this prescription request: Yes Caregiver confirmed with patient/requestor that no other refills are due, in the near future, with this provider at this time: Yes The last office visit in the department: 05/09/2024 Does the patient have a future office visit with this provider/department: Yes 08/12/2024 Requested Prescriptions Pending Prescriptions Disp Refills clopidogrel (PLAVIX) 75 mg tablet 30 tablet 5 Sig: Take 1 tablet by mouth once daily. Brittnee Chapman RN documented in this encounterBluff[facility] Hospital11-07-2024 History of Present illness Narrative* Donna Haynes APRN.HELIARC WELDER - 06/13/2024 10:00 AM EST HISTORY AND PHYSICAL Lou Julien : 1955 REFERRING PHYSICIAN: Nini Freire [address] [facility] [id number] CHIEF COMPLAINT: Patient presents with: Consult: Anemia and abnormal weight loss. HPI: Lou is a 68 year old male referred for endoscopy. Lou notes history of anemia- follows with Dr. Freire. Lou is a poor historian, accompanied by his brother in law. He refers he lives at home alone, buthas an aid come once a day who helps with his medications. Lou denies abdominal pain. Lou denies diarrhea. Lou notes constipation. Lou denies a change in bowel habits. Lou denies melena. Lou denies bright red blood per rectum. Lou denies hemorrhoids. Lou denies heartburn. Lou denies dysphagia. Lou denies a history of ulcers/ peptic ulcer disease. -weight loss- unable to give amount -decreased appetite. Denies nausea/vomiting. States he just isn't hungry. Lou notes family history of colon issues. Mother with colon cancer Lou follows with Dr. Javier last OV was 01/12/2024. During his colonoscopy 06/2023 it was noted that he had a polyp with high-grade dysplasia, repeat scope 08/2023 no evidence of residual polyp. Dr. 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 He is currently taking Plavix Lou's history is significant for PSVT and complete heart block which he has a pacemaker. Follows with [facility]. Last echo 01/2023 with an EF 56%. Last OV 06/12/24. Denies CP, dizziness, palpitations, syncope, edema, recent hospitalizations. States he is SOB all the time. Follows with Nephrology for CKD with proteinuria. Last OV 05/20/24. Not recommending dialysis at this time. Lou has undergone prior endoscopy. 06/22/2023 the patient underwent upper and lower endoscopy with Dr. Javier for anemia. Sedation: MAC EGD Impression: -LA grade a reflux esophagitis with no bleeding. Biopsied. -Moderate Schatzki's ring. Dilated -Medium size hiatal hernia. -Hematin (altered blood/cyvhfw-ravgli-nzdk material) in the gastric body -Granular gastric mucosa. Biopsied -Granular mucosa in the duodenal bulb. Biopsied -Oozing duodenal ulcers with pigmented material. Treated with APC COLONOSCOPY Impression: -Preparation of the colon was poor. -Moderate diverticulosis in the rectosigmoid colon and in the sigmoid colon -Five 1 to 2 mm polyps in the sigmoid colon removed using injection left and hot snare. Resected and retrieved. -Stool in the rectum and the rectosigmoid colon in the sigmoid colon and at the splenic flexure andhepatic flexure and the ascending colon and in the cecum Repeat colonoscopy 08/23/[address] Javier Impression: -Preparation of the colon was fair. -Diverticulosis in the rectosigmoid colon, in the sigmoid colon and in the descending colon -A tattoo was seen in the sigmoid colon. A post polypectomy scar was found at the tattoo site. There is no evidence of residual polyp tissue. Biopsied. -Stool in the rectum and the rectosigmoid colon in the sigmoid colon and at the splenic flexure andhepatic flexure and the ascending colon and in the cecum Current Outpatient Medications Medication Sig Senna 8.6 mg tab Take 1 tablet by mouth three times a day as needed. insulin glargine (LANTUS SOLOSTAR U-100 INSULIN) 100 unit/mL (3 mL) Inject 20 Units subcutaneously every morning. alcohol swabs (ALCOHOL PREP PADS) Apply 1 application to affected area once daily with insulin injection hydrALAZINE (APRESOLINE) 50 mg tablet Take 1 tablet by mouth every 8 hours. Diclofenac Sodium 3 % gel Apply 0.5 g to affected area once daily. blood sugar diagnostic (BLOOD GLUCOSE TEST) test strip Test blood sugar(s) three times daily. Dx: Type 2 DM - Uncontrolled E11.65 Insulin: Yes clopidogrel (PLAVIX) 75 mg tablet Take 1 tablet by mouth once daily. losartan (COZAAR) 25 mg tablet Take 1 tablet by mouth once daily. sodium bicarbonate 650 mg tablet Take 1 tablet by mouth two times a day. Take by mouth as directed. amLODIPine (NORVASC) 10 mg tablet Take 1 tablet by mouth once daily. traZODone (DESYREL) 50 mg tablet Take 1-2 tablets by mouth daily at bedtime. atorvastatin (LIPITOR) 80 mg tablet Take 1 tablet by mouth every morning. metoprolol succinate ER (TOPROL XL) 100 mg Take 1 tablet by mouth every morning. tamsulosin (FLOMAX) 0.4 mg take 1 capsule by mouth at bedtime aspirin, enteric coated (ADULT LOW DOSE ASPIRIN) 81 mg EC tablet Take 1 tablet by mouth every morning. Blood Pressure Monitor 1 Each as directed. Diaper,Brief, Adult,Disposable (DEPEND UNDERWEAR FOR MEN VERONIQUE) 1 Each as needed. Insulin [place], Disposable, (BD ULTRA-FINE LUIS PEN NEEDLE) 32 gauge x 5/32 Use one needle daily for each insulin dose, 4 x's daily. Type 2 DM, insulin dependent. Lancets lancets Test blood sugar(s) one times daily. Dx: Type 2 DM - Uncontrolled E11.65 Insulin: Yes MEDICAL SUPPLY Hospital bed with rails. Blood-Glucose Meter 1 Device as directed. melatonin 3 mg tablet Take 1 tablet by mouth daily at bedtime. glucose (DEX4 GLUCOSE) 4 gram chewable tablet Take 4 tablets by mouth as needed. Lancing Device (LANCING DEVICE WITH LANCETS) [facility] Use to check blood sugars as directed COMPOUNDED PRESCRIPTION Diabetic shoes: DIABETES MELLITUS- uncontrolled with neuropathy Syringe with Needle, Safety (BD INTEGRA) 3 mL 22 x 1 1/2 syrg Uses twice a month for testosterone injections insulin lispro (HUMALOG KWIKPEN INSULIN) 100 unit/mL Inject 2 Units subcutaneously three times a day before meals. Miscellaneous Medical Supply (BLOOD PRESSURE CUFF) 1 Each once daily. No current facility-administered medications for this visit. 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 Dyslipidemia Embolism and thrombosis of unspecified site 04/25/2008 Essential hypertension, benign Family history of malignant neoplasm of gastrointestinal tract Non-proliferative diabetic retinopathy, mild, both eyes ([facility]) 10/11/2017 Non-proliferative diabetic retinopathy, moderate, both eyes ([facility]) 10/14/2019 Other specific developmental learning difficulties Pneumonia 07/07/2015 Dx at [facility] ER Psoriasis and similar disorders Pure hypercholesterolemia Pure hyperglyceridemia Right thalamic infarction (HCC) 02/18/2019 [facility] Stenosis of carotid artery Stroke (HCC) Tietze's disease Tinea unguium 12/01/2017 Type II or unspecified type diabetes mellitus with neurological manifestations, not stated as uncontrolled(250.60) PAST SURGICAL HISTORY Procedure Laterality Date COLONOSCOPY 08/23/2023 Dr. Javier, [facility] COLONOSCOPY FLX DX W/COLLJ SPEC WHEN PFRMD 2017 repeat 3 years COLONOSCOPY SCREENING 06/22/2023 Dr. Javier, [facility] EGD W/O [facility] SPEC VARICIES INJ 06/22/2023 Dr. Javier, [facility] ESOPHAGOGASTRODUODENOSCOPY TRANSORAL DIAGNOSTIC 2017 EGD LAPAROSCOP GASTRIC BYPASS N/A NEUROPLASTY &/TRANSPOS MEDIAN NRV CARPAL TUNNE 05/08/2012 Carpal tunnel decomp right PACEMAKER 03/04/2019 PAST SURGICAL HISTORY OF EGD PAST SURGICAL HISTORY OF Colonsocopy FAMILY HISTORY Problem Relation Age of Onset Stroke Mother Hypertension Mother Colon Cancer Mother Heart Father [place] Diabetes Maternal Grandmother Social History Tobacco Use Smoking status: Former Types: Cigars Quit date: 1994 Years since quittin.8 Smokeless tobacco: Never Vaping Use Vaping status: Never Used Substance Use Topics Alcohol use: No Drug use: No REVIEW OF SYMPTOMS: REVIEW OF SYSTEMS: General: The patient denies fatigue, denies weight loss, denies weight gain, denies feeling hot, and feelings of cold. Eyes: The patient denies glaucoma, denies eye injury/surgery, + glasses or contacts. Ear/Nose/Throat: The patient + allergies, denies hayfever, denies ear infections, and denies bloodynoses. Cardiovascular: The patient denies chest pain, denies heart disease, + high blood pressure, + high cholesterol, and denies poor circulation. Respiratory: The patient denies tuberculosis, denies pneumonia, denies frequent cough, + shortness of breath, and denies coughing up blood. Gastrointestinal: The patient denies difficulty swallowing, denies acid reflux, denies ulcers, denies jaundice/hepatitis, denies gallbladder problems, denies vomiting, denies black or tarry stools, denies hemorrhoids, denies bleeding from rectum, denies diverticulitis, denies constipation, denies diarrhea, denies loss of stool control, and denies hernias. Kidney/Bladder: The patient denies kidney stones, denies urine infections, and denies bloody urine. Skin: The patient denies a history of skin cancer, denies bleeding/changing moles, and denies a history of skin rash. Neurologic: The patient denies a history of epilepsy/convulsions, denies headaches, denies head/spinal injuries, and + stroke/TIA. Psychiatric: The patient denies psychiatric medications, denies depression, and denies voices. Endocrine: The patient denies thyroid disorders, + diabetes, and denies hormonal problems. Hematologic: The patient + a history of bruising, denies bleeding, and denies anemia. Infections: The patient denies a history of measles and mumps, denies rheumatic fever, and denies sexually transmitted diseases. Musculoskeletal: The patient denies back pain/injury, denies back problems, denies sciatica, deniesknee/foot trouble, denies arthritis, or denies gout. PHYSICAL EXAMINATION: General: The patient is 68 year old, male ill appearing, in no acute distress. The patient is oriented to time, place, and person. Skin is pale. VITALS: Blood pressure 130/67, pulse 77, temperature 36.1 C (97 F), height 175.3 cm (5' 9), fqeyyj20.7 kg (155 lb 12.8 oz), SpO2 99%. Body mass index is 23.01 kg/m . HEENT: Normal cephalic, ataumatic, pupils are equally round, sclera are anicteric, mucous membranesare moist, oropharynx is clear. Neck has no masses, asymmetry or lymphadenopathy. Respiratory: Clear to auscultation and percussion. Normal respiratory excursion and pattern. Cardiac: Examination is regular rate and rhythm. Normal S1/S2 Abdominal exam: Soft, nontender, with no palpable masses. No hepatosplenomegaly. No palpable hernias. Extremities: no clubbing, cyanosis or edema. No adenopathy. LABORATORY VALUES: As Noted RADIOLOGIC STUDIES: As Noted Assessment IMPRESSION: anemia, weight loss, history of polyp with high-grade dysplasia, pacemaker, family history of colon cancer PLAN: I have reviewed my findings with the surgeon. Will plan for upper and lower endoscopy. We discussed the risks and benefits of the planned endoscopy. I have informed the patient that complications can occur including failure to complete the endoscopy and perforation. Lou had the opportunity to ask questions concerning the planned endoscopy. My staff has also explained the procedure to the patient in understandable terms and has given the patient printed material concerning the procedure.Lou freely consents to surgery. I plan to use Golytely bowel preparation with 2 days of clear liquids Patient instructed to contact PCP for instructions regarding diabetic medication, which may requireadjustment during bowel preparation and/or day of procedure. I have explained to the patient the difference between IV conscious sedation and MAC anesthesia - and I have offered either, according to the patient's wishes. I have explained that with IV conscioussedation there is no anesthesia provider available and therefore there is a limitation of the amount of IV medications that can be given and that the patient may wake up in the middle of the procedure and/or experience pain/discomfort during the procedure. Further discussion was done and the patient was given the opportunity to ask questions and all questions were answered. MAC anesthesia d/t comorbidities and pacer. Lou was counseled that if there are changes in his/her medical condition, to let the office know if surgery should proceed. If there are changes in patient's medical condition from time of this encounter to the day of the procedure that preclude anesthesia, patient may have procedure cancelled for patient's safety. Diagnoses: (D64.9) Anemia, unspecified type (primary encounter diagnosis) (R63.4) Abnormal weight loss (Z95.0) Pacemaker (K63.5) Polyp of colon, unspecified part of colon, unspecified type (Z80.0) Family history of colon cancer in mother Portions of this documentation were copied and pasted from previous office visit notes in order to provide a cohesive continuity of the history. The note has been reviewed and edited and updated as necessary. Donna Haynes APRN.ELROY documented in this encounterBluff[facility]11-06-[facility]24 History of Present illness Narrative* Faviola Holman APRN.CNP - 06/12/2024 11:26 AM EST Chief Complaint Patient presents with: Established Patient HPI: Lou Julien is a 68 year old male who presents here today for follow up Anemia/CKD. Per Dr. Freire's previous note: H/o type 2 diabetes with polyneuropathy, paroxysmal SVT, pacemaker-ICD, hypertension, hypercholesterolemia, psoriasis, contact dermatitis, lumbar spondylosis, lumbar degenerative disc disease, low back pain, iron deficiency anemia,? DVT and CKD. Hospitalized at [facility] mid June for abdominal pain. Significant increase in serum Cr over baseline. Received hydration. Hemoglobin 8.2 g/dL on presentation 06/29. Serum creatinine was 3.35 mg/dL. Calcium was 8.4 mg/dL. Serum iron was 50 mcg/dL (reference range 65 to 175 mcg/dL). TIBC 210 mcg/dL. (Reference range 250 to 450 mcg/dL). Ferritin was 128 ng/mL. Total serum protein was 6 g/dL. On EGD was found to have reflux esophagitis with no bleeding. There was a mild Schatzki's ring thatwas dilated. Medium size hiatal hernia. There was hematin (altered blood/uobchf-replmp-rtxw material) in the gastric body. Granular gastric mucosa that was biopsied. Granular mucosa in the duodenal bulb. There were oozing duodenal ulcers with pigmented material. Treated with argon plasma coagulation. On colonoscopy prep was poor. Moderate diverticulosis was observed in the rectosigmoid colon and sigmoid colon. There were five 1 to 2 mm polyps in the sigmoid colon removed using injection lift and hot snare. One 5 mm polyp in the transverse colon. Stool was observed in the rectum, rectosigmoid, sigmoid at the splenic flexure hepatic flexure and ascending colon as well as cecum. Blood transfusion was not administered. Also had CT of the abdomen pelvis on 06/29/2023. He had bilateral punctate nonobstructing renal stones. Cholelithiasis without CT evidence of acute cholecystitis. There is diverticulosis without CT evidence of acute diverticulitis. Normal appendix. Diffuse atherosclerosis. Degenerative changes. Per initial OV: Endorses poor appetite. No reflux or nausea. Bowels have been moving. Stools formed. No black or bloody stools. Left foot drop with brace. Hand numbness bilaterally. Electrophoresis and immunofixation of serum negative for monoclonal protein but both kappa and lambda light chains elevated with increased ratio. [place] light chain 94 milligrams per liter. He did not follow-up for further workup. Referred back for anemia. Hemoglobin has been stable over the last year. Pt. no showed and cancelled both appts. with surgery for EGD/Colonoscopy in March. Pt. is not sure what medications he is taking. Pt. here today with family member. Appetite:Poor. Wt. stable. Energy level:I'm tired but I have been for a long time. Denies fevers or recent illness. Resp:denies cough or sob at rest, occ. de anda Cardiac:denies chest pain/palpitations GI:denies abd pain, n/v, moving bowels regularly :denies dysuria/hematuria Extrem:denies pain Neuro:+neuropathy to hands h/o DM Skin:denies rashes Heme:denies bleeding The ROS is otherwise negative. Past medical history, appointments, medications, allergies reviewed. No changes. EXAM: BP 138/72 Pulse 65 Temp 36.4 C (97.5 F) (Temporal) Wt 71.1 kg (156 lb 12 oz) SpO2 98% BMI22.82 kg/m APPEARANCE Well appearing, alert, in no acute distress, well-hydrated, well nourished. HEART RRR with normal S1 and S2, no murmurs LUNG clear to auscultation LYMPH NODES No cervical lymphadenopathy, No supraclavicular lymphadenopathy, and No axillary lymphadenopathy. ABDOMEN bowel sounds normoactive, soft, non-tender EXTREMITIES No edema NEURO Awake, alert and oriented x 3, Normal gait, and No involuntary motions. SKIN Skin color, texture, turgor normal, no suspicious rashes or lesions ASSESSMENT/PLAN: 1. Anemia, unspecified type - ICD9: 285.9, ICD10: D64.[address] Freire's previous note: Assessment: -The patient is a 68-year-old male with past medical history as outlined above. Hospitalized for abdominal pain last fall. Underwent EGD and colonoscopy for anemia. Found to have oozing duodenal ulcers treated with argon laser. Colonoscopy poor prep. Needed repeated. -Iron was low for degree of renal insufficiency. -Suspect anemia secondary to endocrine kidney dysfunction. -Chronic kidney disease with proteinuria attributed to diabetic nephropathy. -Serum light chains possibly elevated secondary to chronic kidney disease. No evidence of monoclonal gammopathy by electrophoresis or immunofixation of the serum. -Poor appetite may be from CKD. -Didn't take meds this am. Plan: -CXR today--former light smoker. -Work up anemia. -24 hour urine for electrophoresis and immunofixation. -Needs repeat EGD and colonoscopy. -Check iron. -Referral to social work. - Ongoing fatigue. Pt. cancelled and no showed appt with surgery for scopes. No obvious bleeding per pt. - Reviewed labs with pt. and family member. - Continue current medications. - Continue follow up with PCP/specialists. - Needs EGD and colonoscopy. - Follow up with Dr. Freire after above with CBC/iron studies. - Pt. aware to call office with any questions/concerns. The patient indicates understanding of these issues and agrees with the plan. All documentation from previous visit of 03/08/24-Dr. Freire was copied and pasted, documentation has been reviewed and edited as necessary for today's visit. Faviola Holman APRN.HELIARC WELDER documented in this encounterBluffton Hospital11-04-2024 History of Present illness Narrative* Jorge Kam RN - 06/10/2024 12:31 PM EST Third attempt to contact Mr. Julien TRINI to try to get Mr. Julien scheduled for the CKD education with Eugenia Basurto or Justyna Grullon. Unable to reach POEstephania. Will send a unable to reach CKD education letter out by Monday if no return call back or I see he is not scheduled. Jorge Kam RN June 10, 2024 12:33 PM documented in this encounterBluffton Hospital10-25-2024 History of Present illness Narrative* Jorge Kam RN - 05/31/2024 12:34 PM EDT Suki Torres @ [phone] -TRINI left a second message concerning scheduling with NB. This appointment may be better needed as a virtual distance due to residence being over a from the [facility] location which would be the sooner appointment verses seeing Eugenia Basurto [facility]. I have also been given the OK from Justyna to offer a [facility] referral to this patient as well. Will also send [employer] message to the patient with the number to our scheduling department so thatthey can call and ask fort a virtual visit with Justyna Ruelas as well. Jorge Kam RN May 31, 2024 12:45 PM documented in this encounterBluffton Hospital10-23-2024 History of Present illness Narrative* Jorge Kam RN - 05/29/2024 11:16 AM EDT Sister Suki Torres @ [phone] -POA left message to call back concerning scheduling for CKD education or Freferal to [facility] if needed. Jorge Kam RN May 29, 2024 11:19 AM documented in this encounterBluffton Hospital10-21-2024 Telephone encounter Note * Telephone Encounter - Adrianna Gonzalez LPN - 05/27/2024 10:40 AM EDT Handled in another phone note. Adrianna Gonzalez LPN [facility]10-21-[facility] Miscellaneous Notes* Telephone Encounter - Adrianna Gonzalez LPN - 05/27/2024 10:40 AM EDT Handled in another phone note. Adrianna Gonzalez LPN * Telephone Encounter - Jeane Braswell - 05/24/2024 8:38 AM EDT 1st attempt. Message left on mobile # (unable to on home) to contact office and schedule lab for today-morning or early afternoon. CBC/?TX/24 HOUR URINE* * Telephone Encounter - Adrianna Gonzalez LPN - 05/23/2024 3:44 PM EDT Received message from nephrology regarding low Hgb. Dr. Freire- please file orders. PSS- please contact patient to schedule a lab appointment for CBC(?TX)/Iron studies and he still needs to complete the 24 hour urine. See if he can come in tomorrow morning or early afternoon for labs. Please timur in the appointment note that he still needs to do the 24 hour urine. Adrianna Gonzalez LPN documented in this encounterBluffton Hospital10-18-2024 Telephone encounter Note * Telephone Encounter - Jeane Braswell - 05/24/2024 8:38 AM EDT 1st attempt. Message left on mobile # (unable to on home) to contact office and schedule lab for today-morning or early afternoon. CBC/?TX/24 HOUR URINE* [facility] Work Phone: 1(766) 147-340910-17-2024 Telephone encounter Note* Telephone Encounter - Adrianna Gonzalez LPN - 05/23/2024 3:44 PM EDT Received message from nephrology regarding low Hgb. Dr. Freire- please file orders. PSS- please contact patient to schedule a lab appointment for CBC(?TX)/Iron studies and he still needs to complete the 24 hour urine. See if he can come in tomorrow morning or early afternoon for labs. Please timur in the appointment note that he still needs to do the 24 hour urine. Adrianna Gonzalez LPN [facility]10-16-[facility] Telephone encounter Note* Telephone Encounter - Maritza Quesada RN - 05/22/2024 10:39 AM EDT Called and spoke with sister who states she handles her brother's care. Janice's message relayed. Will forward to scheduling to assist with hematology appointment scheduling. [facility]-16-[facility] Miscellaneous Notes* Telephone Encounter - Maritza Quesada RN - 05/22/2024 10:39 AM EDT Called and spoke with sister who states she handles her brother's care. Janice's message relayed. Will forward to scheduling to assist with hematology appointment scheduling. * Telephone Encounter - Santa Leija RN - 05/21/2024 8:27 AM EDT I called patient and left a message on his mobile number [phone] as his home number is not in service recording came through. Message left to return call for results message below from Janice Hodges * Telephone Encounter - Santa Leija RN - 05/21/2024 8:27 AM EDT ----- Message from Janice Hodges APRN.HELIARC WELDER sent at 05/20/2024 6:01 PM EDT ----- Please call [phone] to tell him Kidney function is still low at 16% His hemoglobin is very low and he needs to return to hematology -looks like he's seen Dr Freire in the past. He should return or seek new hematology right away Plan to see me or Nickolas in 3 months and labs monthly. I will have education call him to arrange appt for dialysis options thanks documented in this encounterBluffton Hospital10-15-2024 Telephone encounter Note * Telephone Encounter - Santa Leija, RN - 05/21/2024 8:27 AM EDT I called patient and left a message on his mobile number [phone] as his home number is not in service recording came through. Message left to return call for results message below from Janice Hodges [facility]10-15-[facility]24 Telephone encounter Note* Telephone Encounter - Santa Grady, BERKLEY - 05/21/2024 8:27 AM EDT ----- Message from Janice Hodges APRN.HELIARC WELDER sent at 05/20/2024 6:01 PM EDT ----- Please call [phone] to tell him Kidney function is still low at 16% His hemoglobin is very low and he needs to return to hematology -looks like he's seen Dr Freire in the past. He should return or seek new hematology right away Plan to see me or Nickolas in 3 months and labs monthly. I will have education call him to arrange appt for dialysis options thanks [facility]-15-[facility] Telephone encounter Note* Telephone Encounter - Oliva Gongora - 05/21/2024 8:22 AM EDT Scheduled as directed except the orders are not linked. (Specimen orders do not fall under the active orders tab and cannot be linked.) Appointment note reflects that [id number] will be picking up the kit. Oliva Gongora [facility]10-15-2024 Miscellaneous Notes* Telephone Encounter - Oliva Gongora - 05/21/2024 8:22 AM EDT Scheduled as directed except the orders are not linked. (Specimen orders do not fall under the active orders tab and cannot be linked.) Appointment note reflects that [id number] will be picking up the kit. Oliva Gongora * Telephone Encounter - Adrianna Gonzalez LPN - 05/21/2024 8:11 AM EDT PSS- please schedule a lab appointment today at 2:00 so patient's nvjecam-nn-heo can come in and parts picker the 24 hour urine supplies. Please link 24 hour urine orders from 03/08 to the lab appointmentso that there's no miscommunication. Patient's sister is aware of all information. Adrianna Gonzalez LPN * Telephone Encounter - Nini Freire DO - 05/20/2024 5:20 PM EDT His latest CBC does not suggest iron deficiency. Therefore, I do not feel strongly he needs repeat EGD or colonoscopy at this time. His anemia is being driven by his chronic kidney disease. He did not complete the 24-hour urine collection for electrophoresis immunofixation ordered on 03/08. That really needs to get done for me to complete the workup to rule out underlying monoclonal gammopathy. Nini Freire DO * Telephone Encounter - Vera Manrique MD - 05/20/2024 4:56 PM EDT I am recommending what Dr Freire has suggested he do before he comes for a follow with him Family seems hesistant Regards, Vera Manrique MD * Telephone Encounter - Vera Manrique MD - 05/16/2024 6:13 PM EDT Will advice sister to come for all his appointments Regards, Vera Manrique MD * Telephone Encounter - Evi Salazar - 05/16/2024 9:05 AM EDT Spoke to Suki in regards to getting Lou in for a consult for endoscopy. Per Suki she was told his kidneys are stable and stays hydrated then he will not need colonoscopy until August 2024 Suki is confused as to what is needing as she was told he's fine to wait but is also being told from someone else within the clinic that he needs to have it now Can someone please confirm if this patient should schedule a consult with Donna Haynes as the only thing ordered was a consult to Gen Surg NOT procedure orders or if he is okay waiting till 2024 Evi Salazar Icing [employer]er * Telephone Encounter - Vera Manrique MD - 05/10/2024 12:42 PM EDT His labs show significant anemia, which is making him weaker, he is moving towards dialysis as his kidney is getting affected by dialysis. Dr Freire wanted the EGD and colonoscopy, if the egd was done, the he should proceed with the colonoscopy and the other test that Dr Freire has ordered to help him diagnose his issues Regards, Vera Manrique MD * Telephone Encounter - Michelle Mojica MA - 05/10/2024 10:53 AM EDT TRINI Fernandez calling back. She states that he had a scope in August and does not think he needs another one yet. Informed that Dr. Freire had ordered Colon/EGD due to anemia. She wants it confirmed that he still needs this. His weight is stable and labs have been stable as far as she is aware. Will check with ordering provider to confirm that [place] order still needs to be completed. Please review and advise. Michelle Mojica MA * Telephone Encounter - Annalee Carpio RN - 05/10/2024 10:31 AM EDT Left generic voicemail for Suki to please call, no identifying information on the greeting. Lou needs scheduled for an EGD and colonoscopy consultation with Donna Haynes. Annalee Carpio RN May 10, 2024 10:32 AM * Telephone Encounter - Annalee Carpio RN - 05/10/2024 10:31 AM EDT ----- Message from Vera Manrique MD sent at 05/09/2024 5:35 PM EDT ----- Hi! I am the pcp of this patient and am circling back to see if he can be scheduled for colonoscopy andegd as was planned on the day that he was in the ER Regards, Vera Manrique MD documented in this encounterBluffton Hospital10-15-2024 Telephone encounter Note * Telephone Encounter - Adrianna Gonzalez LPN - 05/21/2024 8:11 AM EDT PSS- please schedule a lab appointment today at 2:00 so patient's atxvkcl-pe-slc can come in and parts picker the 24 hour urine supplies. Please link 24 hour urine orders from 03/08 to the lab appointmentso that there's no miscommunication. Patient's sister is aware of all information. Adrianna Gonzalez LPN [facility]10-14-2024 Telephone encounter Note* Telephone Encounter - Nini Freire DO - 05/20/2024 5:20 PM EDT His latest CBC does not suggest iron deficiency. Therefore, I do not feel strongly he needs repeat EGD or colonoscopy at this time. His anemia is being driven by his chronic kidney disease. He did not complete the 24-hour urine collection for electrophoresis immunofixation ordered on 03/08. That really needs to get done for me to complete the workup to rule out underlying monoclonal gammopathy. Nini Freire DO [facility] Work Phone: 1(978) 489-557010-14-2024 Telephone encounter Note* Telephone Encounter - Vera Manrique MD - 05/20/2024 4:56 PM EDT I am recommending what Dr Freire has suggested he do before he comes for a follow with him Family seems hesistant Cristina, Vera Manrique MD [facility]10-14-2024 Instructions* Patient Instructions* Janice Hodges, LAINE.HELIARC WELDER - 05/20/2024 8:42 AM EDT PLAN: -Please get labs drawn and urine tested. I will contact you via phone [phone] with results. Doesn't have computer to use My Chart -try to drink at least 16oz of water per day -Please stop vitamin D -try to eat small meals at least twice per day- can try a protein shake daily -be sure you are taking the sodium bicarbonate 650mg daily -Please check the list of medications here against what you are taking at home to be sure we are onthe same page -follow up with PCP as planned -Recommend BP goal of 130s/80 or less. Please contact the office if your blood pressure is less than 110/70 or higher than 150/90. Normal heart rate/pulse is 60-100 beats per minute. Please let us know if you are consistently less than 60 beats or over 100 beats when at rest. -Good diabetes, blood pressure and cholesterol control are important to prevent kidney disease progression -Continue to follow with your specialists and PCP as planned -Follow low salt diet. (1/2 tsp salt) <2 grams or 2000mg -Please watch your protein intake and limit it to 3 ounces of protein per meal -Recommend HgbA1c of 7 or less as CKD goal. -Please avoid Advil, Ibuprofen(Motrin), Aleve(Naproxen), Meloxicam(Mobic), diclofenac and other pain/arthritis medications called NSAIDS. It is ok to take acetaminophen (Tylenol) for pain as needed -Please avoid contrast dye with imaging. If a provider wants to order CT or MRI with contrast, please let them know you have decreased kidney function. -Increase activity as tolerated. Check with Dr Manrique about a medication to stimulate your appettie RTC 3 months with labs monthly Please bring a complete list of your medications, the dosage and times taken - to every visit. Please contact me by phone or via My Chart for any questions or concerns. We want to know that ALL of your concerns/needs relevant to this visit- were met today and that we have hopefully exceeded your expectations. If not-please let us know how we can improve our service to you by calling [phone] You may be receiving a survey regarding your care today. If you do, please take a few minutes to fill it out and send it back. It would be greatly appreciated. documented in this encounterBluffton Hospital10-14-2024 History of Present illness Narrative* Janice Hodges APRN.HELIARC WELDER - 05/20/2024 8:30 AM EDT Department of Kidney Medicine Medical Specialties [facility] CHIEF COMPLAINT: Follow up for CKD. Data copied from my previous encounters and was imported as a reference for the current encounter. All information in this note has been verified. Data or information that hasn't changed was retainedfrom previous notes and the rest was revised or updated where relevant. HPI: Pt is an 68 year old male being seen today in FU for CKD with proteinuria likely in the setting of diabetic nephropathy. PMH: DM, HTN, CVA, complete heart block, carotid stenosis, metabolic acidosis and hyperlipidemia Last seen by Dr Olmos 11/20/23- started losartan and NaHCo3 Myself 02/26/24 referred to hematology Since last visit still poor appetite with mostly snacks and no real meals. States has food in the home. BPs at home doesn't check Blood sugars at home usually checks but didn't today and can't remember yesterday Medication adherence is unsure if he is taking some of his medications. Printed list today so he can review at home and let us know if there is any discrepancy Avoids NSAIDS Follows low salt diet Lives about [place] hour away- [facility] closest facility Has an aide who comes daily for breakfast, otherwise he does the cooking. Lives alone. Not close with family and denies friends that are close enough to check on him. 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 Dyslipidemia Embolism and thrombosis of unspecified site 04/25/2008 Essential hypertension, benign Family history of malignant neoplasm of gastrointestinal tract Non-proliferative diabetic retinopathy, mild, both eyes ([facility]) 10/11/2017 Non-proliferative diabetic retinopathy, moderate, both eyes ([facility]) 10/14/2019 Other specific developmental learning difficulties Pneumonia 07/07/2015 Dx at [facility] ER Psoriasis and similar disorders Pure hypercholesterolemia Pure hyperglyceridemia Right thalamic infarction (HCC) 02/18/2019 [facility] Stenosis of carotid artery Stroke ([facility]) Tietze's disease Tinea unguium 12/01/2017 Type II or unspecified type diabetes mellitus with neurological manifestations, not stated as uncontrolled(250.60) Current Outpatient Medications on File Prior to Visit Medication Sig cholecalciferol, Vitamin D3, (VITAMIN D3) 1,250 mcg (50,000 unit) cap capsule Take 1 capsule twice per week for 12 weeks. hydrALAZINE (APRESOLINE) 50 mg tablet Take 1 tablet by mouth every 8 hours. blood sugar diagnostic (BLOOD GLUCOSE TEST) test strip Test blood sugar(s) three times daily. Dx: Type 2 DM - Uncontrolled E11.65 Insulin: Yes clopidogrel (PLAVIX) 75 mg tablet Take 1 tablet by mouth once daily. Senna 8.6 mg tab Take 1 tablet by mouth three times a day as needed. losartan (COZAAR) 25 mg tablet Take 1 tablet by mouth once daily. sodium bicarbonate 650 mg tablet Take 1 tablet by mouth two times a day. Take by mouth as directed. insulin glargine (LANTUS SOLOSTAR U-100 INSULIN) 100 unit/mL (3 mL) Inject 20 Units subcutaneously every morning. amLODIPine (NORVASC) 10 mg tablet Take 1 tablet by mouth once daily. multivitamin (DAILY-YOUSUF) tablet Take 1 tablet by mouth once daily. traZODone (DESYREL) 50 mg tablet Take 1-2 tablets by mouth daily at bedtime. atorvastatin (LIPITOR) 80 mg tablet Take 1 tablet by mouth every morning. metoprolol succinate ER (TOPROL XL) 100 mg Take 1 tablet by mouth every morning. tamsulosin (FLOMAX) 0.4 mg take 1 capsule by mouth at bedtime aspirin, enteric coated (ADULT LOW DOSE ASPIRIN) 81 mg EC tablet Take 1 tablet by mouth every morning. alcohol swabs (ALCOHOL PREP PADS) Apply 1 application to affected area once daily with insulin injection polyethylene glycol 3350 17 gram/dose powder Take 17 g by mouth once daily. Drink a mix of 1 scoop in 8oz of water/beverage once daily as needed for constipation. insulin lispro (HUMALOG KWIKPEN INSULIN) 100 unit/mL Inject 2 Units subcutaneously three times a day before meals. diclofenac (VOLTAREN) 1 % topical gel Apply 2 g to affected area four times daily. Miscellaneous Medical Supply (BLOOD PRESSURE CUFF) 1 Each once daily. Blood Pressure Monitor 1 Each as directed. Diaper,Brief, Adult,Disposable (DEPEND UNDERWEAR FOR MEN -MD) 1 Each as needed. Insulin [place], Disposable, (BD ULTRA-FINE LUIS PEN NEEDLE) 32 gauge x 5/32 Use one needle daily for each insulin dose, 4 x's daily. Type 2 DM, insulin dependent. Lancets lancets Test blood sugar(s) one times daily. Dx: Type 2 DM - Uncontrolled E11.65 Insulin: Yes MEDICAL SUPPLY Hospital bed with rails. Blood-Glucose Meter 1 Device as directed. melatonin 3 mg tablet Take 1 tablet by mouth daily at bedtime. glucose (DEX4 GLUCOSE) 4 gram chewable tablet Take 4 tablets by mouth as needed. Lancing Device (LANCING DEVICE WITH LANCETS[place] [facility] [place] blood sugars as directed COMPOUNDED PRESCRIPTION Diabetic shoes: DIABETES MELLITUS- uncontrolled with neuropathy Syringe with Needle, Safety (BD INTEGRA) 3 mL 22 x 1 1/2 syrg Uses twice a month for testosterone injections Current Facility-Administered Medications on File Prior to Visit Medication perflutren lipid microspheres 1.3 mL in NaCl (PF) 0.9% 10 mL injection (DEFINITY) sodium chloride 0.9 % (flush) 10 mL (BD POSIFLUSH) REVIEW OF SYSTEMS: Cardiovascular: denies chest pain or pressure, palpitations. Admits to dizziness, lightheadedness- thinks related to low appetite and hypoglycemia. Denies DE ANDA Denies edema Respiratory: denies cough Genitourinary: denies frequency, pink or bloody urine or dysuria. Has 3-4 episodes of nocturia per night. Does not interfere with sleep. Does feel they empty bladder fully. Psychiatric: denies depression or anxiety. Reports energy level is good PHYSICAL EXAM BP: BP 159/70 (BP Site: Right Arm, BP Position: Sitting, BP Cuff Size: Regular Adult) Pulse 66 Wt 70.8 kg (156 lb 1.4 oz) BMI 22.72 kg/m BP - standardized method Pulse 1 BP #1: 162/70 Pulse #1: 67 beats/min 2 BP #2 : 160/68 Pulse #2 : 66 beats/min 3 BP #3 : 154/72 Pulse #3 : 65 beats/min Average Average BP: 159/70 Average Pulse: 66 beats/min Orthostatic vitals Supine Sitting Standing BP cuff location BP cuff location: Right upper arm BP cuff size BP cuff size: regular adult Comments for BP values First BP (right) First BP (left) Constitutional: No acute distress, Responsive, Thin, and Well-nourished Cardiovascular:No peripheral edema Regular rate and rhythm, normal S1 and S2, no murmurs Respiratory: Normal respiratory effort. Extremities: No peripheral edema Neurological: Alert and oriented x3. Psychiatric: Alert and oriented x self, place, time, and setting Normal mood/affect Pleasant - ?cognitive ability with medications and understanding of his kidney disease Diagnostic tests reviewed for today's visit Labs: Latest Ref Rng 02/27/2023 04/03/2023 07/10/2023 09/13/2023 12/13/2023 01/02/2024 02/07/2024 RENAL KIDNEY STONE FLOWSHEET EGFR, All Other >=60 mL/min/1.73m 22 (L) 24 (L) 21 (L) 16 (L) 21 (L) 15 (L) Creatinine 0.73 - 1.22 mg/dL 3.09 (H) 2.80 (H) 3.18 (H) 3.88 (H) 3.17 (H) 4.22 (H) BUN 9 - 24 mg/dL 50 (H) 49 (H) 59 (H) 63 (H) 44 (H) 64 (H) Sodium 136 - 144 mmol/L 137 140 140 138 141 139 Potassium 3.7 - 5.1 mmol/L 4.1 5.3 (H) 4.8 4.5 3.9 4.8 Chloride 98 - 107 mmol/L 108 (H) 110 (H) 112 (H) 104 110 (H) 107 CO2 22 - 30 mmol/L 17 (L) 19 (L) 18 (L) 20 (L) 23 19 (L) Glucose 74 - 99 mg/dL 156 (H) 169 (H) 144 (H) 87 166 (H) 100 (H) Calcium 8.5 - 10.2 mg/dL 8.7 9.2 9.0 9.2 9.4 9.3 Phosphorus 2.7 - 4.8 mg/dL 4.7 Albumin 3.9 - 4.9 g/dL 3.5 (L) 3.8 (L) 3.9 4.0 WBC 3.70 - 11.00 k/uL 7.91 7.26 8.28 6.69 6.46 7.30 HGB 13.0 - 17.0 g/dL 9.2 (L) 9.3 (L) 8.2 (L) 8.8 (L) 8.3 (L) 8.6 (L) HCT 39.0 - 51.0 % 27.3 (L) 28.3 (L) 25.6 (L) 26.9 (L) 25.7 (L) 27.5 (L) PLT 150 - 400 k/uL 260 266 265 229 206 231 Vitamin D25 Hydroxy 31.0 - 80.0 ng/mL 17.7 (L) Kidney imaging: not on file. ASSESSMENT: Pt is an 68 year old male being seen today in FU for CKD with proteinuria likely in thesetting of diabetic nephropathy. 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 Above goal baseline in February 2024 -Baseline serum creatinine 2.8- 3.1 mg/dL -Proteinuria: Protein creatinine ratio 4.07 in December 2023 -albuminuria: albumin creatinine ratio 2431 in December 2023 On ARB Monoclonal gammopathy and compliments negative in November 2023 -does not like needles and doesn't want to have to go for dialysis 3 times per week at a facility. PD would be best option and he would want something done -will check labs and then likely send for dialysis option education. Does not have computer access HTN/Volume: - decent controlled on current regimen. Higher today but didn't take meds yet this morning and drove an hour in the rain -Volume: euvolemic -Currently on amlodipine 10mg daily, hydralazine 50mg tid, losartan 25mg antonieta and metoprolol succinate 100mg daily BPH -on tamsulosin -follows with urology- last seen 2021 Metabolic/electrolytes: Hx metabolic acidosis K+- 4.8 wnl in February 2024 Co2- 19 below goal in February 2024 On sodium bicarb 650mg bid- unsure if he's taking it but will check Anemia: Hx anemia -Hgb 8.6 below goal - now following with hematology -denies overt losses- denies hematuria or melena -continue to monitor along with iron stores to assess for need of PAULA. Metabolic Bone: Hx of vitamin D deficiency -Ca+ 9.3 wnl in February 2024 -Phos: 4.7 wnl in December 2023 -Vitamin D: 119.0- above goal in Apr 2024- stop supplement On supplemental D3 but recommend discontinuation -PTH: will update CV/Lipids: -hx of hyperlipidemia -on statin -recommend LDL goal of <100 to prevent progression of CKD. DM: -Last HgbA1c 5.8- controlled in Apr 2024 -follow up with PCP/endo PLAN: -Please get labs drawn and urine tested. I will contact you via phone [phone] with results. Doesn't have computer to use My Chart -try to drink at least 16oz of water per day -Please stop vitamin D -try to eat small meals at least twice per day- can try a protein shake daily -be sure you are taking the sodium bicarbonate 650mg daily -Please check the list of medications here against what you are taking at home to be sure we are onthe same page -follow up with PCP as planned -Recommend BP goal of 130s/80 or less. Please contact the office if your blood pressure is less than 110/70 or higher than 150/90. Normal heart rate/pulse is 60-100 beats per minute. Please let us know if you are consistently less than 60 beats or over 100 beats when at rest. -Good diabetes, blood pressure and cholesterol control are important to prevent kidney disease progression -Continue to follow with your specialists and PCP as planned -Follow low salt diet. (1/2 tsp salt) <2 grams or 2000mg -Please watch your protein intake and limit it to 3 ounces of protein per meal -Recommend HgbA1c of 7 or less as CKD goal. -Please avoid Advil, Ibuprofen(Motrin), Aleve(Naproxen), Meloxicam(Mobic), diclofenac and other pain/arthritis medications called NSAIDS. It is ok to take acetaminophen (Tylenol) for pain as needed -Please avoid contrast dye with imaging. If a provider wants to order CT or MRI with contrast, please let them know you have decreased kidney function. -Increase activity as tolerated. Check with Dr Manrique about a medication to stimulate your appettie RTC 3 months with labs monthly (standing orders in) Janice Hodges CNP I spent a total of 38 minutes on the date of the service which included preparing to see the patient, [id number] patient care, completing clinical documentation, performing a medically appropriate examination, counseling and educating the patient/family/caregiver and ordering medications, tests, or procedures. Pt will need continued regular follow up ([id number]) with nephrology [facility] Telephone encounter Note * Telephone Encounter - Va Pride LPN - 05/17/2024 3:19 PM EDT Prescription Refill Information The patient has been identified by name and date of : Yes Caregiver verified no other encounters exist for this prescription request: Yes Caregiver confirmed with patient/requestor that no other refills are due, in the near future, with this provider at this time: Yes The last office visit in the department: 05/09/24 Does the patient have a future office visit with this provider/department: Yes Requested Prescriptions Pending Prescriptions Disp Refills Senna 8.6 mg tab 90 tablet 2 Sig: Take 1 tablet by mouth three times a day as needed. Va Pride LPN May 17, 2024 3:20 PM [facility]10-[facility] Miscellaneous Notes* Telephone Encounter - Va Pride LPN - 05/17/2024 3:19 PM EDT Prescription Refill Information The patient has been identified by name and date of : Yes Caregiver verified no other encounters exist for this prescription request: Yes Caregiver confirmed with patient/requestor that no other refills are due, in the near future, with this provider at this time: Yes The last office visit in the department: 05/09/24 Does the patient have a future office visit with this provider/department: Yes Requested Prescriptions Pending Prescriptions Disp Refills Senna 8.6 mg tab 90 tablet 2 Sig: Take 1 tablet by mouth three times a day as needed. Va Pride LPN May 17, 2024 3:20 PM documented in [facility]10-[facility]24 Telephone encounter Note * Telephone Encounter - Vera Manrique MD - 05/16/2024 6:13 PM EDT Will advice sister to come for all his appointments Vera Evans MD [facility] Telephone encounter Note* Telephone Encounter - Evi Salazar - 05/16/2024 9:05 AM EDT Spoke to Suki in regards to getting Lou in for a consult for endoscopy. Per Suki she was told his kidneys are stable and stays hydrated then he will not need colonoscopy until August 2024 Suki is confused as to what is needing as she was told he's fine to wait but is also being told from someone else within the clinic that he needs to have it now Can someone please confirm if this patient should schedule a consult with Donna Haynes as the only thing ordered was a consult to Gen Surg NOT procedure orders or if he is okay waiting till 2024 Evi Salazar [employer]cing [employer]er [facility]10-04-2024 Telephone encounter Note* Telephone Encounter - Vera aMnrique MD - 05/10/2024 12:42 PM EDT His labs show significant anemia, which is making him weaker, he is moving towards dialysis as his kidney is getting affected by dialysis. Dr Freire wanted the EGD and colonoscopy, if the egd was done, the he should proceed with the colonoscopy and the other test that Dr Freire has ordered to help him diagnose his issues Regards, Vera Manrique MD [facility]10-04-2024 Telephone encounter Note* Telephone Encounter - Michelle Mojica MA - 05/10/2024 10:53 AM EDT TRINI Fernandez calling back. She states that he had a scope in August and does not think he needs another one yet. Informed that Dr. Freire had ordered Colon/EGD due to anemia. She wants it confirmed that he still needs this. His weight is stable and labs have been stable as far as she is aware. Will check with ordering provider to confirm that [place] order still needs to be completed. Please review and advise. Michelle Mojica MA [facility]10-04-[facility]24 Telephone encounter Note* Telephone Encounter - Annalee Carpio RN - 05/10/2024 10:31 AM EDT Left generic voicemail for Suki to please call, no identifying information on the greeting. Lou needs scheduled for an EGD and colonoscopy consultation with Donna Haynes. Annalee Carpio RN May 10, 2024 10:32 AM [facility]-04-[facility] Telephone encounter Note* Telephone Encounter - Annalee Carpio RN - 05/10/2024 10:31 AM EDT ----- Message from Vera Manrique MD sent at 05/09/2024 5:35 PM EDT ----- Hi! I am the pcp of this patient and am circling back to see if he can be scheduled for colonoscopy andegd as was planned on the day that he was in the ER Regards, Vera Manrique MD [facility]10-03-[facility] History of Present illness Narrative* Vera Manrique MD - 05/09/2024 1:59 PM EDT Reason for Visit Patient presents with: Recheck Lou Julien is a 68 year old male who presents here today for Above Complaints.. Health Maintenance Depression Screening Anxiety Screening Colorectal Cancer Screening BP Controlled (<130/80) Diabetic Foot Exam HPI Lou is a 68-year-old gentleman who has multiple issues including being intellectually disabled. He has diabetes mellitus which is not well-controlled due to his behaviors and also his lack of understanding, he has multiple complications from it including nephropathy and neuropathy, he has hypertension, hyperlipidemia currently CKD stage IV has had a history of stroke, dyspepsia hide DDD of the lumbar spine. The last few months his diabetes is not very well-controlled also he has significant anemia. And recently nephropathy. For his anemia the therapist speech wanted him to get an EGD and colonoscopy but he has not done that and he has also not collected the 24-hour urine that he was supposed to collect. We will write back about the EGD and colonoscopy to be rescheduled, apparently he was in the ER at the time of his testing and so he could not get it done. I am referring him to endocrinology to help control his sugars. His A1c was 5.9 but with his anemiathat is definitely not a reliable number number. I did initiate conversations about what he enjoys in life, what he considers to be a life that is worthwhile and what is he think about dialysis in the future. Some of the things he says really are not relevant. He says he lives for his children but when I pointed out none of his children have had anything to do within the past 20 years he agrees and says yes they have nothing to do with him in the past 20 years. He then states that his sister and [id number] are the main ones to help him and he would like to get their opinions on what to do next. . No problem-specific Assessment & Plan notes found for this encounter. 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 Dyslipidemia Embolism and thrombosis of unspecified site 04/25/2008 Essential hypertension, benign Family history of malignant neoplasm of gastrointestinal tract Non-proliferative diabetic retinopathy, mild, both eyes ([facility]) 10/11/2017 Non-proliferative diabetic retinopathy, moderate, both eyes ([facility]) 10/14/2019 Other specific developmental learning difficulties Pneumonia 07/07/2015 Dx at [facility] ER Psoriasis and similar disorders Pure hypercholesterolemia Pure hyperglyceridemia Right thalamic infarction (HCC) 02/18/2019 [facility] Stenosis of carotid artery Stroke ([facility]) Tietze's disease Tinea unguium 12/01/2017 Type II or unspecified type diabetes mellitus with neurological manifestations, not stated as uncontrolled(250.60) PAST SURGICAL HISTORY Procedure Laterality Date COLONOSCOPY FLX DX W/COLLJ SPEC WHEN PFRMD 2017 repeat 3 years COLONOSCOPY SCREENING 06/22/2023 EGD W/O [facility] SPEC VARICIES INJ 06/22/2023 ESOPHAGOGASTRODUODENOSCOPY TRANSORAL DIAGNOSTIC 2017 EGD LAPAROSCOP GASTRIC BYPASS N/A NEUROPLASTY &/TRANSPOS MEDIAN NRV CARPAL TUNNE 05/08/2012 Carpal tunnel decomp right PACEMAKER 03/04/2019 PAST SURGICAL HISTORY OF EGD PAST SURGICAL HISTORY OF Colonsocopy FAMILY HISTORY Problem Relation Age of Onset Stroke Mother Hypertension Mother Colon Cancer Mother Heart Father [place] Diabetes Maternal Grandmother Social History Tobacco Use Smoking status: Former Types: Cigars Quit date: 1994 Years since quittin.7 Smokeless tobacco: Never Vaping Use Vaping status: Never Used Substance Use Topics Alcohol use: No Drug use: No Past medical history, appointments, medications, allergies reviewed. Pertinent Lab/Diagnostic Studies are reviewed and discussed today Current Outpatient Medications: alcohol swabs (ALCOHOL PREP PADS) cholecalciferol, Vitamin D3, (VITAMIN D3) 1,250 mcg (50,000 unit) cap capsule hydrALAZINE (APRESOLINE) 50 mg tablet Senna 8.6 mg tab blood sugar diagnostic (BLOOD GLUCOSE TEST) test strip clopidogrel (PLAVIX) 75 mg tablet losartan (COZAAR) 25 mg tablet sodium bicarbonate 650 mg tablet insulin glargine (LANTUS SOLOSTAR U-100 INSULIN) 100 unit/mL (3 mL) amLODIPine (NORVASC) 10 mg tablet multivitamin (DAILY-YOUSUF) tablet traZODone (DESYREL) 50 mg tablet atorvastatin (LIPITOR) 80 mg tablet metoprolol succinate ER (TOPROL XL) 100 mg tamsulosin (FLOMAX) 0.4 mg aspirin, enteric coated (ADULT LOW DOSE ASPIRIN) 81 mg EC tablet insulin lispro (HUMALOG KWIKPEN INSULIN) 100 unit/mL Blood Pressure Monitor Diaper,Brief, Adult,Disposable (DEPEND UNDERWEAR FOR MEN ADRIEL-) Insulin [place], Disposable, (BD ULTRA-FINE LUIS PEN NEEDLE) 32 gauge x 5/32 Lancets lancets MEDICAL SUPPLY Blood-Glucose Meter melatonin 3 mg tablet glucose (DEX4 GLUCOSE) 4 gram chewable tablet Lancing Device (LANCING DEVICE WITH LANCETS) [facility] [place] COMPOUNDED PRESCRIPTION Syringe with Needle, Safety (BD INTEGRA) 3 mL 22 x 1 1/2 syrg Diclofenac Sodium 3 % gel polyethylene glycol 3350 17 gram/dose powder Miscellaneous Medical Supply (BLOOD PRESSURE CUFF) Review of Systems CONSTITUTIONAL: No fevers, chills night sweats, unintended weight loss CARDIOVASCULAR: No chest pain, dyspnea, palpitations, orthopnea, PND, ankle edema. PULM: No dyspnea, unexplained cough. GI: No dysphagia/odynophagia, problematic reflux, constipation, diarrhea, changes in stool habits, hematochezia, melena. : No new urinary complaints, including dysuria, gross hematuria or pyuria. NEURO: No new balance problems, peripheral weakness/paresthesias or numbness of concern. Physical Exam BP 138/62 (BP Site: Right Arm) Pulse 63 Wt 72.1 kg (158 lb 15.2 oz) SpO2 98% BMI 23.14 kg/m General appearance: Well appearing, alert, in no acute distress, well nourished. Skin: Skin color, texture, turgor normal, no suspicious rashes or lesions Head: Normocephalic, no masses, lesions, tenderness or abnormalities Eyes: Anicteric sclera. Pupils are equally round and reactive to light. Extraocular movements are intact. Lungs: Lungs clear to auscultation. No wheezing, rhonchi, rales Heart: RRR without murmur, gallop, or rubs. Feet: Shoes and socks removed, normal distal pulses, not sensitive to monofilament in any of the areas , and nails notable for Hypertrophic or Yellowish ASSESSMENT/PLAN: 1. Chronic kidney disease, stage 4 (severe) ([facility]) - ICD9: 585.4, ICD10: N18.4 (primary diagnosis) CKD: Stage 3, recent labs reviewed, shows GFR is stable, not significantly changed from previous labs. Discussed the importance of staying off the NSAIDs naproxen, motrin, brufen, aleve etc and contrast., adequate hydration Keeping blood pressure under control. 2. Type 2 diabetes mellitus with stage 3b chronic kidney disease, with long-term current use of insulin ([facility]) - ICD9: 250.40, 585.3, V58.67, ICD10: E11.22, N18.32, Z79.4 - LANTUS SOLOSTAR U-100 INSULIN 100 UNIT/ML (3 ML) SUBCUTANEOUS PEN - CONSULT TO ENDOCRINOLOGY 3. Essential hypertension, benign - ICD9: 401.1, ICD10: I10 - Controlled - Recommend home blood pressure monitoring, to bring results to next visit - Encouraged sodium restriction, DASH or Mediterranean diet - Recommend regular aerobic exercise 4. Anemia, unspecified type - ICD9: 285.9, ICD10: D64.9 Wrote to the nurse who scheuduled him the first time Vera Manrique MD [facility]09-[facility] History of Present illness Narrative* Angie Mercado PA-C - 04/30/2024 11:19 AM EDT 04/30/2024 Patient presents with: Same Day Appointment: elevated blood sugars Immunizations: Flu vaccination SUBJECTIVE: This is a 68 year old that is here today for Complaint(s) of elevated BG readings. Patient was concerned he had a few readings in the low 200's over the last few weeks. He has an aid thatcomes in and checks his BG twice a day. He brings a log of these readings today. Unclear if fasting/post prandial..Currently on lantus 20 mg in the AM , humalog 2 mg TID with meals. Taking regularly.Last A1C was 5.8. BG readings ranging from 92-130's, with two readings at 150 and 175. 2 weeks ago there wer a few readings in the low 200 range. Currently on lantus 20 mg in the AM , humalog 2 mg TID with meals. Taking regularly. Last A1C was 5.8. Overall feeling okay. See scanned document for glucose readings. 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 Dyslipidemia Embolism and thrombosis of unspecified site 04/25/2008 Essential hypertension, benign Family history of malignant neoplasm of gastrointestinal tract Non-proliferative diabetic retinopathy, mild, both eyes ([facility]) 10/11/2017 Non-proliferative diabetic retinopathy, moderate, both eyes (HCC) 10/14/2019 Other specific developmental learning difficulties Pneumonia 07/07/2015 Dx at [facility] ER Psoriasis and similar disorders Pure hypercholesterolemia Pure hyperglyceridemia Right thalamic infarction (HCC) 02/18/2019 [facility] Stenosis of carotid artery Stroke ([facility]) Tietze's disease Tinea unguium 12/01/2017 Type II or unspecified type diabetes mellitus with neurological manifestations, not stated as uncontrolled(250.60) ALLERGIES Lopid [Gemfibrozil] MEDICATIONS Current Outpatient Medications Medication Sig alcohol swabs (ALCOHOL PREP PADS) Apply 1 application to affected area once daily with insulin injection cholecalciferol, Vitamin D3, (VITAMIN D3) 1,250 mcg (50,000 unit) cap capsule Take 1 capsule twice per week for 12 weeks. hydrALAZINE (APRESOLINE) 50 mg tablet Take 1 tablet by mouth every 8 hours. Diclofenac Sodium 3 % gel Apply 0.5 g to affected area once daily. Senna 8.6 mg tab Take 1 tablet by mouth three times a day as needed. blood sugar diagnostic (BLOOD GLUCOSE TEST) test strip Test blood sugar(s) three times daily. Dx: Type 2 DM - Uncontrolled Insulin: Yes clopidogrel (PLAVIX) 75 mg tablet Take 1 tablet by mouth once daily. losartan (COZAAR) 25 mg tablet Take 1 tablet by mouth once daily. sodium bicarbonate 650 mg tablet Take 1 tablet by mouth two times a day. Take by mouth as directed. insulin glargine (LANTUS SOLOSTAR U-100 INSULIN) 100 unit/mL (3 mL) Inject 20 Units subcutaneously every morning. amLODIPine (NORVASC) 10 mg tablet Take 1 tablet by mouth once daily. multivitamin (DAILY-YOUSUF) tablet Take 1 tablet by mouth once daily. traZODone (DESYREL) 50 mg tablet Take 1-2 tablets by mouth daily at bedtime. atorvastatin (LIPITOR) 80 mg tablet Take 1 tablet by mouth every morning. metoprolol succinate ER (TOPROL XL) 100 mg Take 1 tablet by mouth every morning. tamsulosin (FLOMAX) 0.4 mg take 1 capsule by mouth at bedtime aspirin, enteric coated (ADULT LOW DOSE ASPIRIN) 81 mg EC tablet Take 1 tablet by mouth every morning. polyethylene glycol 3350 17 gram/dose powder Take 17 g by mouth once daily. Drink a mix of 1 scoop in 8oz of water/beverage once daily as needed for constipation. insulin lispro (HUMALOG KWIKPEN INSULIN) 100 unit/mL Inject 2 Units subcutaneously three times a day before meals. Miscellaneous Medical Supply (BLOOD PRESSURE CUFF) 1 Each once daily. Blood Pressure Monitor 1 Each as directed. Diaper,Brief, Adult,Disposable (DEPEND UNDERWEAR FOR MEN SM-MD) 1 Each as needed. Insulin [place], Disposable, (BD ULTRA-FINE LUIS PEN NEEDLE) 32 gauge x Use one needle daily for each insulin dose, 4 x's daily. Type 2 DM, insulin dependent. Lancets lancets Test blood sugar(s) one times daily. Dx: Type 2 DM - Uncontrolled Insulin: Yes MEDICAL SUPPLY Hospital bed with rails. Blood-Glucose Meter 1 Device as directed. melatonin 3 mg tablet Take 1 tablet by mouth daily at bedtime. glucose (DEX4 GLUCOSE) 4 gram chewable tablet Take 4 tablets by mouth as needed. Lancing Device (LANCING DEVICE WITH LANCETS) misc Use to check blood sugars as directed COMPOUNDED PRESCRIPTION Diabetic shoes: DIABETES MELLITUS- uncontrolled with neuropathy Syringe with Needle, Safety (BD INTEGRA) 3 mL 22 x 1 1/2 syrg Uses twice a month for testosterone injections No current facility-administered medications for this visit. SOCIAL HISTORY Social History Tobacco Use Smoking status: Former Types: Cigars Quit date: 1994 Years since quittin.7 Smokeless tobacco: Never Vaping Use Vaping status: Never Used Substance Use Topics Alcohol use: No Drug use: No REVIEW OF SYSTEMS See HPI OBJECTIVE: BP 130/52 (BP Site: Right Arm, BP Position: Sitting, BP Cuff Size: Large Adult) Pulse 73 Resp 12 Ht 176.5 cm (5' 9.5) Wt 72.6 kg (160 lb) SpO2 97% BMI 23.29 kg/m APPEARANCE Well appearing, alert, in no acute distress, well-hydrated, well nourished. HEART RRR with normal S1 and S2 LUNG clear to auscultation ASSESSMENT/PLAN: 1. Need for influenza vaccination - ICD9: V04.81, ICD10: Z23 (primary diagnosis) - INFLUENZA VACCINE, PRSV FREE, AGE 65+ YR, HIGH DOSE, TRIVALENT (FLUZONE HIGH-DOSE) 2. Type 2 diabetes mellitus with stage 3b chronic kidney disease, with long-term current use of insulin (HCC) - ICD9: 250.40, 585.3, V58.67, ICD10: E11.22, N18.32, Z79.4 - Controlled - Continue current medications Repeat A1C with next labs for 3 month follow up. Advise to contact office if change in readings. Check fasting, and 2 hour post prandial-denote this on readings. Overall BG readings look okay, and last A1c was 5.8. Hold on any medication adjustments at this time. Has a f/u scheduled 05/09/24 with PCP. - HEMOGLOBIN A1C Angie Mercado PA-C documented [facility] Telephone encounter Note * Telephone Encounter - Oliva Luis RN - 04/25/2024 11:45 AM EDT The patient has been identified by name and date of : Yes Caregiver verified no other encounters exist for this prescription request: Yes Caregiver confirmed with patient/requestor that no other refills are due, in the near future, with this provider at this time: Yes The last office visit in the department: 04/01/2024 Does the patient have a future office visit with this provider/department: Yes 04/30/2024 Requested Prescriptions Pending Prescriptions Disp Refills alcohol swabs (ALCOHOL PREP PADS) 100 Each 3 Sig: Apply 1 application to affected area once daily with insulin injection Oliva Luis RN April 25, 2024 11:45 AM [facility]09-19-2024 Miscellaneous Notes* Telephone Encounter - Oliva Luis RN - 04/25/2024 11:45 AM EDT The patient has been identified by name and date of : Yes Caregiver verified no other encounters exist for this prescription request: Yes Caregiver confirmed with patient/requestor that no other refills are due, in the near future, with this provider at this time: Yes The last office visit in the department: 04/01/2024 Does the patient have a future office visit with this provider/department: Yes 04/30/2024 Requested Prescriptions Pending Prescriptions Disp Refills alcohol swabs (ALCOHOL PREP PADS) 100 Each 3 Sig: Apply 1 application to affected area once daily with insulin injection Oliva Luis RN April 25, 2024 11:45 AM documented in this encounterBluff[facility]09-12-2024 Telephone encounter Note * Telephone Encounter - Taco Tatum APRN.CNP - 04/18/2024 12:21 PM EDT Due for vit d level to be checked Thank you Taco Tatum APRN.CNP [facility]09-12-2024 Miscellaneous Notes* Telephone Encounter - Taco Tatum APRN.CNP - 04/18/2024 12:21 PM EDT Due for vit d level to be checked Thank you Taco Tatum APRN.CNP * Telephone Encounter - Agnieszka Juarez LPN - 04/18/2024 11:46 AM EDT The patient has been identified by name and date of : Yes Caregiver verified no other encounters exist for this prescription request: Yes Caregiver confirmed with patient/requestor that no other refills are due, in the near future, with this provider at this time: Yes The last office visit in the department: 01/02/2024 Does the patient have a future office visit with this provider/department: Yes 05/09/24 Requested Prescriptions Pending Prescriptions Disp Refills cholecalciferol, Vitamin D3, (VITAMIN D3) 1,250 mcg (50,000 unit) cap capsule 24 capsule 0 Sig: Take 1 capsule twice per week for 12 weeks. hydrALAZINE (APRESOLINE) 50 mg tablet 270 tablet 0 Sig: Take 1 tablet by mouth every 8 hours. Agnieszka Juarez LPN April 18, 2024 11:49 AM documented in this encounterBluff[facility]09-12-2024 Telephone encounter Note * Telephone Encounter - Agnieszka Juarez LPN - 04/18/2024 11:46 AM EDT The patient has been identified by name and date of : Yes Caregiver verified no other encounters exist for this prescription request: Yes Caregiver confirmed with patient/requestor that no other refills are due, in the near future, with this provider at this time: Yes The last office visit in the department: 01/02/2024 Does the patient have a future office visit with this provider/department: Yes 05/09/24 Requested Prescriptions Pending Prescriptions Disp Refills cholecalciferol, Vitamin D3, (VITAMIN D3) 1,250 mcg (50,000 unit) cap capsule 24 capsule 0 Sig: Take 1 capsule twice per week for 12 weeks. hydrALAZINE (APRESOLINE) 50 mg tablet 270 tablet 0 Sig: Take 1 tablet by mouth every 8 hours. Agnieszka Juarez LPN April 18, 2024 11:49 AM [facility]08-29-[facility] Miscellaneous Notes* Telephone Encounter - Jeane Braswell - 04/04/2024 2:01 PM EDT Patient returned call and stated he doesn't know when he can get in for container. He states he will schedule follow up after he picks up container. * Telephone Encounter - Azra Bruce LPN - 04/02/2024 8:37 AM EDT Left message stating he needed to collect the 24 hr urine and make f/u apt. Not sure if he has the collection jug or not. Please make lab apt if needed and f/u. Azra Bruce LPN * Telephone Encounter - Nini Freire DO - 04/01/2024 4:59 PM EDT He was to complete a 24-hour urine collection. Does look like that is been submitted yet. Once he brings it in, we can schedule office visit with me roughly a week later. Nini Freire DO documented in this encounterBluff[facility]08-29-2024 Telephone encounter Note * Telephone Encounter - Jeane Braswell - 04/04/2024 2:01 PM EDT Patient returned call and stated he doesn't know when he can get in for container. He states he will schedule follow up after he picks up container. [facility] Work Phone: [phone] 809-852708-27-2024 Telephone encounter Note* Telephone Encounter - Azra Bruce LPN - 04/02/2024 8:37 AM EDT Left message stating he needed to collect the 24 hr urine and make f/u apt. Not sure if he has the collection jug or not. Please make lab apt if needed and f/u. Azra Bruce LPN [facility]08-26-2024 Telephone encounter Note* Telephone Encounter - Nini Freire DO - 04/01/2024 4:59 PM EDT He was to complete a 24-hour urine collection. Does look like that is been submitted yet. Once he brings it in, we can schedule office visit with me roughly a week later. Nini Freire DO [facility]08-26-2024 History of Present illness Narrative* Vera Manrique MD - 04/01/2024 4:42 PM EDT Reason for Visit Patient presents with: ER F/U: [facility] ER 03/29/24 from a fall with injury to left hand but no fracture Lou Julien is a 68 year old male who presents here today for Above Complaints.. Health Maintenance Depression Screening Anxiety Screening Colorectal Cancer Screening BP Controlled (<130/80) Diabetic Foot Exam HPI Hurt his left hand, was chasing the cat down the [place] way and he tripped and fell and since then hehas pain. Xr were done in the er no reported fracture, He wanted pain medication like vicodin. His creat is elevated and he just fell, to decrease his fall risk , explained why those medication are not a good choice for him, he was agreeable No problem-specific Assessment & Plan notes found for this encounter. 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 No date: Dyslipidemia 04/25/2008: Embolism and thrombosis of unspecified site No date: Essential hypertension, benign No date: Family history of malignant neoplasm of gastrointestinal tract 10/11/2017: Non-proliferative diabetic retinopathy, mild, both eyes (HCC) 10/14/2019: Non-proliferative diabetic retinopathy, moderate, both eyes ([facility]) No date: Other specific developmental learning difficulties 07/07/2015: Pneumonia Comment: Dx at [facility] ER No date: Psoriasis and similar disorders No date: Pure hypercholesterolemia No date: Pure hyperglyceridemia 02/18/2019: Right thalamic infarction (HCC) Comment: [facility] No date: Stenosis of carotid artery No date: Stroke ([facility]) 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: Tinea unguium No date: Type II or unspecified type diabetes mellitus with neurological manifestations, not stated as uncontrolled(250.60) PAST SURGICAL HISTORY 2017: COLONOSCOPY FLX DX W/COLLJ SPEC WHEN PFRMD Comment: repeat 3 years 06/22/2023: COLONOSCOPY SCREENING 06/22/2023: EGD W/O [facility] SPEC VARICIES INJ 2017: ESOPHAGOGASTRODUODENOSCOPY TRANSORAL DIAGNOSTIC Comment: EGD No date: LAPAROSCOP GASTRIC BYPASS; N/A 05/08/2012: NEUROPLASTY &/TRANSPOS MEDIAN NRV CARPAL TUNNE Comment: Carpal tunnel decomp right 03/04/2019: PACEMAKER No date: PAST SURGICAL HISTORY OF Comment: EGD No date: PAST SURGICAL HISTORY OF Comment: Colonsocopy FAMILY HISTORY Problem Relation Age of Onset Stroke Mother Hypertension Mother Colon Cancer Mother Heart Father [place] Diabetes Maternal Grandmother Social History Tobacco Use Smoking status: Former Types: Cigars Quit date: 1994 Years since quittin.6 Smokeless tobacco: Never Vaping Use Vaping status: Never Used Substance Use Topics Alcohol use: No Drug use: No Past medical history, appointments, medications, allergies reviewed. Pertinent Lab/Diagnostic Studies are reviewed and discussed today Current Outpatient Medications: Senna 8.6 mg tab cholecalciferol, Vitamin D3, (VITAMIN D3) 1,250 mcg (50,000 unit) cap capsule hydrALAZINE (APRESOLINE) 50 mg tablet clopidogrel (PLAVIX) 75 mg tablet losartan (COZAAR) 25 mg tablet sodium bicarbonate 650 mg tablet insulin glargine (LANTUS SOLOSTAR U-100 INSULIN) 100 unit/mL (3 mL) amLODIPine (NORVASC) 10 mg tablet multivitamin (DAILY-YOUSUF) tablet traZODone (DESYREL) 50 mg tablet atorvastatin (LIPITOR) 80 mg tablet metoprolol succinate ER (TOPROL XL) 100 mg tamsulosin (FLOMAX) 0.4 mg aspirin, enteric coated (ADULT LOW DOSE ASPIRIN) 81 mg EC tablet polyethylene glycol 3350 17 gram/dose powder insulin lispro (HUMALOG KWIKPEN INSULIN) 100 unit/mL melatonin 3 mg tablet blood sugar diagnostic (BLOOD GLUCOSE TEST) test strip alcohol swabs (ALCOHOL PREP PADS) diclofenac (VOLTAREN) 1 % topical gel Miscellaneous Medical Supply (BLOOD PRESSURE CUFF) Blood Pressure Monitor Diaper,Brief, Adult,Disposable (DEPEND UNDERWEAR FOR MEN SM-MD) Insulin [place], Disposable, (BD ULTRA-FINE LUIS PEN NEEDLE) 32 gauge x 5/32 Lancets lancets MEDICAL SUPPLY Blood-Glucose Meter glucose (DEX4 GLUCOSE) 4 gram chewable tablet Lancing Device (LANCING DEVICE WITH LANCETS) misc COMPOUNDED PRESCRIPTION Syringe with Needle, Safety (BD INTEGRA) 3 mL 22 x 1 1/2 syrg Current Facility-Administered Medications: perflutren lipid microspheres 1.3 mL in NaCl (PF) 0.9% 10 mL injection (DEFINITY) sodium chloride 0.9 % (flush) 10 mL (BD POSIFLUSH) Review of Systems CONSTITUTIONAL: No fevers, chills night sweats, unintended weight loss CARDIOVASCULAR: No chest pain, dyspnea, palpitations, orthopnea, PND, ankle edema. PULM: No dyspnea, unexplained cough. GI: No dysphagia/odynophagia, problematic reflux, constipation, diarrhea, changes in stool habits, hematochezia, melena. : No new urinary complaints, including dysuria, gross hematuria or pyuria. NEURO: No new balance problems, peripheral weakness/paresthesias or numbness of concern. Physical Exam BP 128/56 Pulse 70 Wt 71.3 kg (157 lb 3.2 oz) SpO2 98% BMI 22.88 kg/m General appearance: Well appearing, alert, in no acute distress, well nourished. Skin: Skin color, texture, turgor normal, no suspicious rashes or lesions Head: Normocephalic, no masses, lesions, tenderness or abnormalities Eyes: Anicteric sclera. Pupils are equally round and reactive to light. Extraocular movements are intact. Lungs: Lungs clear to auscultation. No wheezing, rhonchi, rales Heart: RRR without murmur, gallop, or rubs. Hand: left METACARPOPHALLANGEAL joints are mildly swollen. Along with the dorsal aspect. ASSESSMENT/PLAN: 1. Fall, subsequent encounter - ICD9: V58.89, E888.9, ICD10: W19.XXXD (primary diagnosis) - DICLOFENAC 3 % TOPICAL GEL - ELASTIC BANDAGE 2. Arm bruise, left, sequela - ICD9: 906.3, ICD10: S40.022S - DICLOFENAC 3 % TOPICAL GEL - ELASTIC BANDAGE Vera Manrique MD documented in this encounterBluff[facility] Hospital08-23-2024 Telephone encounter Note * Telephone Encounter - Annalee Carpio RN - 03/29/2024 2:38 PM EDT Patient was scheduled today for an EGD and colonoscopy consultation. The patient is currently beingtreated in the ER at [facility] for a fall. The office will cancel this appointmentand will reach out to the patient to reschedule next week. Annalee Carpio RN March 29, 2024 2:39 PM [facility]08-23-2024 Miscellaneous Notes* Telephone Encounter - Annalee Carpio RN - 03/29/2024 2:38 PM EDT Patient was scheduled today for an EGD and colonoscopy consultation. The patient is currently beingtreated in the ER at [facility] for a fall. The office will cancel this appointmentand will reach out to the patient to reschedule next week. Annalee Carpio RN March 29, 2024 2:39 PM documented in this encounterBluffton Hospital08-16-2024 Telephone encounter Note * Telephone Encounter - Oliva Gongora - 03/22/2024 2:11 PM EDT Spoke with Suki and rescheduled EGD/Colonoscopy consult to 03/29/24 at 2:00 PM. Oliva Gongora [facility]08-16-2024 Miscellaneous Notes* Telephone Encounter - Oliva Gongora - 03/22/2024 2:11 PM EDT Spoke with Suki and rescheduled EGD/Colonoscopy consult to 03/29/24 at 2:00 PM. Oliva Gongora * Telephone Encounter - Sayda Moreno LPN - 03/22/2024 11:35 AM EDT Don't see anything in notes concerning going to [facility] for labs. Pt. Was a no show for surgery consult EGD/Colonoscopy & Orders are in for 24 hr. Urines, have never been done. Attempting to contact unable to get connected. TRINI contacted she [address] got pt. On the phone. Instructed lou we needed to get those urine tests done. Come in on Monday and parts picker Jugs. Pt. Voiced understanding. Also PSS please contact TRINI Fernandez to get rescheduled for EGD/Colonoscopy thru surg dept. Sayda Moreno LPN * Telephone Encounter - Oliva Gongora - 03/22/2024 11:13 AM EDT Patient called in thinking we were supposed to fax orders to [facility]. Patient completed labs when he was here on 8/2. Please call with lab results. Oliva Gongora documented in this encounterBluffton Hospital08-16-2024 Telephone encounter Note * Telephone Encounter - Sayda Moreno LPN - 03/22/2024 11:35 AM EDT Don't see anything in notes concerning going to [facility] for labs. Pt. Was a no show for surgery consult EGD/Colonoscopy & Orders are in for 24 hr. Urines, have never been done. Attempting to contact unable to get connected. POEstephania contacted she [address] got pt. On the phone. Instructed lou we needed to get those urine tests done. Come in on Monday and parts picker Jugs. Pt. Voiced understanding. Also PSS please contact TRINI Fernandez to get rescheduled for EGD/Colonoscopy thru surg dept. Sayda Moreno LPN [facility]08-16-2024 Telephone encounter Note* Telephone Encounter - Oliva Gongora - 03/22/2024 11:13 AM EDT Patient called in thinking we were supposed to fax orders to [facility]. Patient completed labs when he was here on 03/08. Please call with lab results. Oliva Gongora [facility]08-02-2024 History of Present illness Narrative* Jeane Callaway, (R) - 03/08/2024 9:30 AM EDT Radiology Service Progress Note PATIENT NAME: Lou Julien DATE OF SERVICE: March 08, 2024 TIME: 9:27 AM PATIENT IDENTITY VERIFICATION COMPLETED USING TWO (2) IDENTIFIERS: Name and Date of confirmedby patient verbally. FALL SCREENING: Has the patient had 2 falls in the last year or 1 fall with injury or currently using an Ambulatory Assistive Device (Walker, Cane, Wheelchair, Crutches, etc.)? No PATIENT GENDER DATA: Male PATIENT RELEVANT IMPLANT DATA REVIEWED: Not Applicable PATIENT PRESENTS WITH AN IMPLANTABLE OR ATTACHED DOCTOR OF NURSING PRACTICE: No RADIOLOGY DEPARTMENT: General X-ray: Exam(s) Completed: Chest X-Ray PERIPHERAL IV DATA: Not applicable SIGNED BY: Jeane Callaway RT(R) March 08, 2024 9:27 AM documented in this encounterBluffton Hospital08-02-2024 History of Present illness Narrative* Nini Freire DO - 03/08/2024 8:22 AM EDT Oncologic problem(s): 1) Anemia. HPI: The patient is a 68-year-old male with a past medical history significant for type 2 diabetes with polyneuropathy, paroxysmal SVT, pacemaker-ICD, hypertension, hypercholesterolemia, psoriasis, contact dermatitis, lumbar spondylosis, lumbar degenerative disc disease, low back pain, iron deficiency anemia,? DVT and CKD. Hospitalized at [facility] mid June for abdominal pain. Significant increase in serum Cr over baseline. Received hydration. Hemoglobin 8.2 g/dL on presentation 06/29. Serum creatinine was 3.35 mg/dL. Calcium was 8.4 mg/dL. Serum iron was 50 mcg/dL (reference range 65 to 175 mcg/dL). TIBC 210 mcg/dL. (Reference range 250 to 450 mcg/dL). Ferritin was 128 ng/mL. Total serum protein was 6 g/dL. On EGD was found to have reflux esophagitis with no bleeding. There was a mild Schatzki's ring thatwas dilated. Medium size hiatal hernia. There was hematin (altered blood/sgoinb-zlrxfp-uxsy material) in the gastric body. Granular gastric mucosa that was biopsied. Granular mucosa in the duodenal bulb. There were oozing duodenal ulcers with pigmented material. Treated with argon plasma coagulation. On colonoscopy prep was poor. Moderate diverticulosis was observed in the rectosigmoid colon and sigmoid colon. There were five 1 to 2 mm polyps in the sigmoid colon removed using injection lift and hot snare. One 5 mm polyp in the transverse colon. Stool was observed in the rectum, rectosigmoid, sigmoid at the splenic flexure hepatic flexure and ascending colon as well as cecum. Blood transfusion was not administered. Also had CT of the abdomen pelvis on 06/29/2023. He had bilateral punctate nonobstructing renal stones. Cholelithiasis without CT evidence of acute cholecystitis. There is diverticulosis without CT evidence of acute diverticulitis. Normal appendix. Diffuse atherosclerosis. Degenerative changes. Per initial OV: Endorses poor appetite. No reflux or nausea. Bowels have been moving. Stools formed. No black or bloody stools. Left foot drop with brace. Hand numbness bilaterally. Presents for ongoing hematologic management. Interim history: Electrophoresis and immunofixation of serum negative for monoclonal protein but both kappa and lambda light chains elevated with increased ratio. [place] light chain 94 milligrams per liter. He did not follow-up for further workup. Referred back for anemia. Hemoglobin has been stable over the last year. Serum creatinine worse. Poor appetite. Denies nausea and reflux. Bowels move once a week. Doesn't strain. Denies black and bloody stools. Denies abdominal pain. Has an aide 5 days a week to help with meal prep, laundry and cleaning. Numbness right hand constant. Left hand normal. Feet feel normal. Feels he voids to completion. Denies nocturia. 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 No date: Dyslipidemia 04/25/2008: Embolism and thrombosis of unspecified site No date: Essential hypertension, benign No date: Family history of malignant neoplasm of gastrointestinal tract 10/11/2017: Non-proliferative diabetic retinopathy, mild, both eyes ([facility]) 10/14/2019: Non-proliferative diabetic retinopathy, moderate, both eyes ([facility]) No date: Other specific developmental learning difficulties 07/07/2015: Pneumonia Comment: Dx at [facility] ER No date: Psoriasis and similar disorders No date: Pure hypercholesterolemia No date: Pure hyperglyceridemia 02/18/2019: Right thalamic infarction (HCC) Comment: [facility] No date: Stenosis of carotid artery No date: Stroke ([facility]) 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: Tinea unguium No date: Type II or unspecified type diabetes mellitus with neurological manifestations, not stated as uncontrolled(250.60) PAST SURGICAL HISTORY 2017: COLONOSCOPY FLX DX W/COLLJ SPEC WHEN PFRMD Comment: repeat 3 years 06/22/2023: COLONOSCOPY SCREENING 06/22/2023: EGD W/O [facility] SPEC VARICIES INJ 2017: ESOPHAGOGASTRODUODENOSCOPY TRANSORAL DIAGNOSTIC Comment: EGD No date: LAPAROSCOP GASTRIC BYPASS; N/A 05/08/2012: NEUROPLASTY &/TRANSPOS MEDIAN NRV CARPAL TUNNE Comment: Carpal tunnel decomp right 03/04/2019: PACEMAKER No date: PAST SURGICAL HISTORY OF Comment: EGD No date: PAST SURGICAL HISTORY OF Comment: [facility] ALLERGIES Allergen Reactions Lopid [Gemfibrozil] Diarrhea Current Outpatient Medications Medication Sig Senna 8.6 mg tab Take 1 tablet by mouth three times a day as needed. cholecalciferol, Vitamin D3, (VITAMIN D3) 1,250 mcg (50,000 unit) cap capsule Take 1 capsule twice per week for 12 weeks. hydrALAZINE (APRESOLINE) 50 mg tablet Take 1 tablet by mouth every 8 hours. blood sugar diagnostic (BLOOD GLUCOSE TEST) test strip Test blood sugar(s) three times daily. Dx: Type 2 DM - Uncontrolled E11.65 Insulin: Yes clopidogrel (PLAVIX) 75 mg tablet Take 1 tablet by mouth once daily. losartan (COZAAR) 25 mg tablet Take 1 tablet by mouth once daily. sodium bicarbonate 650 mg tablet Take 1 tablet by mouth two times a day. Take by mouth as directed. insulin glargine (LANTUS SOLOSTAR U-100 INSULIN) 100 unit/mL (3 mL) Inject 20 Units subcutaneously every morning. amLODIPine (NORVASC) 10 mg tablet Take 1 tablet by mouth once daily. multivitamin (DAILY-YOUSUF) tablet Take 1 tablet by mouth once daily. traZODone (DESYREL) 50 mg tablet Take 1-2 tablets by mouth daily at bedtime. atorvastatin (LIPITOR) 80 mg tablet Take 1 tablet by mouth every morning. metoprolol succinate ER (TOPROL XL) 100 mg Take 1 tablet by mouth every morning. tamsulosin (FLOMAX) 0.4 mg take 1 capsule by mouth at bedtime aspirin, enteric coated (ADULT LOW DOSE ASPIRIN) 81 mg EC tablet Take 1 tablet by mouth every morning. alcohol swabs (ALCOHOL PREP PADS) Apply 1 application to affected area once daily with insulin injection insulin lispro (HUMALOG KWIKPEN INSULIN) 100 unit/mL Inject 2 Units subcutaneously three times a day before meals. Miscellaneous Medical Supply (BLOOD PRESSURE CUFF) 1 Each once daily. Blood Pressure Monitor 1 Each as directed. Diaper,Brief, Adult,Disposable (DEPEND UNDERWEAR FOR MEN ADRIEL-) 1 Each as needed. Insulin [place], Disposable, (BD ULTRA-FINE LUIS PEN NEEDLE) 32 gauge x 5/32 Use one needle daily for each insulin dose, 4 x's daily. Type 2 DM, insulin dependent. Lancets lancets Test blood sugar(s) one times daily. Dx: Type 2 DM - Uncontrolled E11.65 Insulin: Yes MEDICAL SUPPLY Hospital bed with rails. Blood-Glucose Meter 1 Device as directed. melatonin 3 mg tablet Take 1 tablet by mouth daily at bedtime. glucose (DEX4 GLUCOSE) 4 gram chewable tablet Take 4 tablets by mouth as needed. Lancing Device (LANCING DEVICE WITH LANCETS[place] [facility] [place] blood sugars as directed COMPOUNDED PRESCRIPTION Diabetic shoes: DIABETES MELLITUS- uncontrolled with neuropathy Syringe with Needle, Safety (BD INTEGRA) 3 mL 22 x 1 1/2 syrg Uses twice a month for testosterone injections polyethylene glycol 3350 17 gram/dose powder Take 17 g by mouth once daily. Drink a mix of 1 scoop in 8oz of water/beverage once daily as needed for constipation. diclofenac (VOLTAREN) 1 % topical gel Apply 2 g to affected area four times daily. 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 Family History Problem Relation Age of Onset Stroke Mother Hypertension Mother Colon Cancer Mother Heart Father [place] Diabetes Maternal Grandmother Mother in her 60s from lymph node cancer. He is not aware if she had a h/o colon cancer or not. ROS: Constitutional: No fever. No drenching night sweats. Neuro: Noted for headache and dizziness.. HEENT: No recent change in voice, vision or hearing. Resp: No cough, wheeze of hemoptysis. No shortness of breath at rest. Occasional DE ANDA. CVS: No exertional chest pain, PND or orthopnea. No extremity swelling/edema. GI: No dysphagia or odynophagia. : No dysuria or gross hematuria. Endo: No hot flashes. No polyuria or polydipsia. No heat or cold intolerance. Musculoskeletal: Denies bone, back, joint and muscular pain. Derm: No current rash. No history of jaundice. No diffuse pruritis. Heme: No unusual bleeding and unexplained bruising. Psych: Normal mood. PHYSICAL EXAM: Vitals: Blood pressure 192/82, pulse 60, temperature 36.3 C (97.4 F), temperature source Temporal, height 176.5 cm (5' 9.5), weight 71.2 kg (157 lb), SpO2 99%. Pale and thin-in no acute distress. EYES: Sclerae are anicteric bilaterally. No enlarged tongue. LYMPHATIC: There is no palpable cervical or supraclavicular or axillary adenopathy. RESPIRATORY: Inspiratory breath sounds are of normal intensity in all patel. No rales, wheezes or rhonchi. CARDIOVASCULAR: Rhythm is regular. ABDOMEN: The abdomen is nondistended. No splenomegaly or hepatomegaly. Suprapubic tenderness. Extremities: No swelling or edema. SKIN: No jaundice. LABS: ASSESSMENT/PLAN: (D64.9) Anemia, unspecified type (primary encounter diagnosis) (N18.4) CKD (chronic kidney disease), stage IV (HCC) (N18.4, D63.1) 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) Assessment: -The patient is a 68-year-old male with past medical history as outlined above. Hospitalized for abdominal pain last fall. Underwent EGD and colonoscopy for anemia. Found to have oozing duodenal ulcers treated with argon laser. Colonoscopy poor prep. Needed repeated. -Iron was low for degree of renal insufficiency. -Suspect anemia secondary to endocrine kidney dysfunction. -Chronic kidney disease with proteinuria attributed to diabetic nephropathy. -Serum light chains possibly elevated secondary to chronic kidney disease. No evidence of monoclonal gammopathy by electrophoresis or immunofixation of the serum. -Poor appetite may be from CKD. -Didn't take meds this am. Plan: -CXR today--former light smoker. -Work up anemia. -24 hour urine for electrophoresis and immunofixation. -Needs repeat EGD and colonoscopy. -Check iron. -Referral to social work. Portions of this documentation were copied and pasted from previous office visit notes in order to provide a cohesive continuity of the history. The note has been reviewed and edited and updated as necessary. I spent a total of 30 minutes on the date of the service which included preparing to see the patient, [id number] patient care, completing clinical documentation, obtaining and/or reviewing separately obtained history, performing a medically appropriate examination, counseling and educating the pat ient/family/caregiver, ordering medications, tests, or procedures, communicating with other HCPs (not separately reported), and communicating results to the patient/family/caregiver. Nini Freire DO documented in this encounterBl[facility]07-[facility]24 Telephone encounter Note * Telephone Encounter - Jaimie Dobbs LPN - 02/27/2024 11:29 AM EDT Prescription Refill Information The patient has been identified by name and date of : Yes Caregiver verified no other encounters exist for this prescription request: Yes Caregiver confirmed with patient/requestor that no other refills are due, in the near future, with this provider at this time: Yes The last office visit in the department: 02/07/24 Does the patient have a future office visit with this provider/department: Yes Requested Prescriptions Pending Prescriptions Disp Refills Senna 8.6 mg tab 90 tablet 2 Sig: Take 1 tablet by mouth three times a day as needed. Jaimie Dobbs LPN February 27, 2024 11:29 AM [facility]07-23-2024 Miscellaneous Notes* Telephone Encounter - Jaimie Dobbs LPN - 02/27/2024 11:29 AM EDT Prescription Refill Information The patient has been identified by name and date of : Yes Caregiver verified no other encounters exist for this prescription request: Yes Caregiver confirmed with patient/requestor that no other refills are due, in the near future, with this provider at this time: Yes The last office visit in the department: 02/07/24 Does the patient have a future office visit with this provider/department: Yes Requested Prescriptions Pending Prescriptions Disp Refills Senna 8.6 mg tab 90 tablet 2 Sig: Take 1 tablet by mouth three times a day as needed. Jaimie Dobbs LPN February 27, 2024 11:29 AM documented in this encounterBluffton Hospital07-23-2024 Telephone encounter Note * Telephone Encounter - Jeane Braswell - 02/27/2024 8:10 AM EDT Spoke with Renetta, sister and she will inform patient of appointment. [facility] Work Phone: 1(384) 273-485407-23-2024 Miscellaneous Notes* Telephone Encounter - Jeane Braswell - 02/27/2024 8:10 AM EDT Spoke with Renetta, sister and she will inform patient of appointment. * Telephone Encounter - Nini Freire DO - 02/26/2024 5:26 PM EDT 03/08 at 3:10 pm. Nini Freire DO * Telephone Encounter - Johana Gonzales - 02/26/2024 10:08 AM EDT Received email to [facility] that patient needs to be scheduled VIOLETA. Patient is established withDr. Freire. Last seen in 2022. Please review and advise for follow up. FYI Pt. Canceled F/U appt. With Dr. Freire in and did not reschedule. Appt. Was to go over labsand discuss further testing. DX: Anemia Insurance: [place] Medicaid Referred by: Janice Hodges APRN.HELIARC WELDER documented in this encounterBluffton Hospital07-22-2024 Telephone encounter Note * Telephone Encounter - Nini Freire DO - 02/26/2024 5:26 PM EDT 03/08 at 3:10 pm. Nini Freire DO [facility] Work Phone: 1(345) 669-969507-22-2024 Telephone encounter Note* Telephone Encounter - Johana Gonzales - 02/26/2024 10:08 AM EDT Received email to [facility] that patient needs to be scheduled VIOLETA. Patient is established withDr. Freire. Last seen in 2022. Please review and advise for follow up. FYI Pt. Canceled F/U appt. With Dr. Freire in and did not reschedule. Appt. Was to go over labsand discuss further testing. DX: Anemia Insurance: [place] Medicaid Referred by: Janice Hodges APRN.HELIARC WELDER [facility]07-22-[facility]24 Telephone encounter Note* Telephone Encounter - Caty Erickson - 02/26/2024 9:51 AM EDT Patient has consult for Hematology/ oncology. Placed by Janice Hodges APRN. Patient should be scheduled for this VIOLETA. I sent an email to [facility] on 02/26/2024, requesting for patient to be called. [facility]07-22-2024 Miscellaneous Notes* Telephone Encounter - Caty Erickson - 02/26/2024 9:51 AM EDT Patient has consult for Hematology/ oncology. Placed by Janice Hodges APRN. Patient should be scheduled for this VIOLETA. I sent an email to [facility] on 02/26/2024, requesting for patient to be called. documented in this encounterBluffton Hospital07-22-2024 Instructions* Patient Instructions* Janice Hodges APRN.HELIARC WELDER - 02/26/2024 9:30 AM EDT PLAN: -Please get labs drawn next month- around 03/21/24. I will contact you via phone [phone] with results. -try to eat small meals at least twice per day -Recommend BP goal of 130s/80 or less. Please contact the office if your blood pressure is less than 110/70 or higher than 150/90. Normal heart rate/pulse is 60-100 beats per minute. Please let us know if you are consistently less than 60 beats or over 100 beats when at rest. -Good diabetes, blood pressure and cholesterol control are important to prevent kidney disease progression -Continue to follow with your specialists and PCP as planned -Follow low salt diet. (1/2 tsp salt) <2 grams or 2000mg -Please watch your protein intake and limit it to 3 ounces of protein per meal -Recommend HgbA1c of 7 or less as CKD goal. -Please avoid Advil, Ibuprofen(Motrin), Aleve(Naproxen), Meloxicam(Mobic), diclofenac and other pain/arthritis medications called NSAIDS. It is ok to take acetaminophen (Tylenol) for pain as needed -Please avoid contrast dye with imaging. If a provider wants to order CT or MRI with contrast, please let them know you have decreased kidney function. -Increase activity as tolerated. Referral to: hematology- blood doctor to manage anemia RTC 3 months with labs monthly Please bring a complete list of your medications, the dosage and times taken - to every visit. Please contact me by phone or via My Chart for any questions or concerns. We want to know that ALL of your concerns/needs relevant to this visit- were met today and that we have hopefully exceeded your expectations. If not-please let us know how we can improve our service to you by calling [phone] You may be receiving a survey regarding your care today. If you do, please take a few minutes to fill it out and send it back. It would be greatly appreciated. documented in this encounterBluffton Hospital07-22-2024 History of Present illness Narrative* Janice Hodges APRN.ELROY - 02/26/2024 9:00 AM EDT Department of Kidney Medicine Medical Specialties [facility] CHIEF COMPLAINT: Follow up for CKD. HPI: Pt is an 68 year old male being seen today in FU for CKD with proteinuria likely in the setting of diabetic nephropathy. PMH: DM, HTN, CVA, complete heart block, carotid stenosis, metabolic acidosis and hyperlipidemia Last seen by Dr Olmos 11/20/23- started losartan and NaHCo3 Since last visit poor appetite- affects his sugar levels, had only a can of pork beans yesterday. Only eats one meal per day BPs at home doesn't check Blood sugars at home 150 average- didn't take today Medication adherence is unsure if he is taking sodium bicarb Avoids NSAIDS Follows low salt diet Lives about an hour away- [place] is closest facility Has an aide who comes daily for breakfast, otherwise he does the cooking. Lives alone. Not close with family and denies friends that are close enough to check on him. 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 Dyslipidemia Embolism and thrombosis of unspecified site 04/25/2008 Essential hypertension, benign Family history of malignant neoplasm of gastrointestinal tract Non-proliferative diabetic retinopathy, mild, both eyes (HCC) 10/11/2017 Non-proliferative diabetic retinopathy, moderate, both eyes (HCC) 10/14/2019 Other specific developmental learning difficulties Pneumonia 07/07/2015 Dx at [facility] ER Psoriasis and similar disorders Pure hypercholesterolemia Pure hyperglyceridemia Right thalamic infarction (HCC) 02/18/2019 [facility] Stenosis of carotid artery Stroke ([facility]) Tietze's disease Tinea unguium 12/01/2017 Type II or unspecified type diabetes mellitus with neurological manifestations, not stated as uncontrolled(250.60) Current Outpatient Medications on File Prior to Visit Medication Sig cholecalciferol, Vitamin D3, (VITAMIN D3) 1,250 mcg (50,000 unit) cap capsule Take 1 capsule twice per week for 12 weeks. hydrALAZINE (APRESOLINE) 50 mg tablet Take 1 tablet by mouth every 8 hours. blood sugar diagnostic (BLOOD GLUCOSE TEST) test strip Test blood sugar(s) three times daily. Dx: Type 2 DM - Uncontrolled E11.65 Insulin: Yes clopidogrel (PLAVIX) 75 mg tablet Take 1 tablet by mouth once daily. Senna 8.6 mg tab Take 1 tablet by mouth three times a day as needed. losartan (COZAAR) 25 mg tablet Take 1 tablet by mouth once daily. sodium bicarbonate 650 mg tablet Take 1 tablet by mouth two times a day. Take by mouth as directed. insulin glargine (LANTUS SOLOSTAR U-100 INSULIN) 100 unit/mL (3 mL) Inject 20 Units subcutaneously every morning. amLODIPine (NORVASC) 10 mg tablet Take 1 tablet by mouth once daily. multivitamin (DAILY-YOUSUF) tablet Take 1 tablet by mouth once daily. traZODone (DESYREL) 50 mg tablet Take 1-2 tablets by mouth daily at bedtime. atorvastatin (LIPITOR) 80 mg tablet Take 1 tablet by mouth every morning. metoprolol succinate ER (TOPROL XL) 100 mg Take 1 tablet by mouth every morning. tamsulosin (FLOMAX) 0.4 mg take 1 capsule by mouth at bedtime aspirin, enteric coated (ADULT LOW DOSE ASPIRIN) 81 mg EC tablet Take 1 tablet by mouth every morning. alcohol swabs (ALCOHOL PREP PADS) Apply 1 application to affected area once daily with insulin injection polyethylene glycol 3350 17 gram/dose powder Take 17 g by mouth once daily. Drink a mix of 1 scoop in 8oz of water/beverage once daily as needed for constipation. insulin lispro (HUMALOG KWIKPEN INSULIN) 100 unit/mL Inject 2 Units subcutaneously three times a day before meals. diclofenac (VOLTAREN) 1 % topical gel Apply 2 g to affected area four times daily. Miscellaneous Medical Supply (BLOOD PRESSURE CUFF) 1 Each once daily. Blood Pressure Monitor 1 Each as directed. Diaper,Brief, Adult,Disposable (DEPEND UNDERWEAR FOR MEN VERONIQUE) 1 Each as needed. Insulin Kingston, Disposable, (BD ULTRA-FINE LUIS PEN NEEDLE) 32 gauge x 5/32 Use one needle daily for each insulin dose, 4 x's daily. Type 2 DM, insulin dependent. Lancets lancets Test blood sugar(s) one times daily. Dx: Type 2 DM - Uncontrolled E11.65 Insulin: Yes MEDICAL SUPPLY Hospital bed with rails. Blood-Glucose Meter 1 Device as directed. melatonin 3 mg tablet Take 1 tablet by mouth daily at bedtime. glucose (DEX4 GLUCOSE) 4 gram chewable tablet Take 4 tablets by mouth as needed. Lancing Device (LANCING DEVICE WITH LANCETS) [facility] [place] to check blood sugars as directed COMPOUNDED PRESCRIPTION Diabetic shoes: DIABETES MELLITUS- uncontrolled with neuropathy Syringe with Needle, Safety (BD INTEGRA) 3 mL 22 x 1 1/2 syrg Uses twice a month for testosterone injections Current Facility-Administered Medications on File Prior to Visit Medication perflutren lipid microspheres 1.3 mL in NaCl (PF) 0.9% 10 mL injection (DEFINITY) sodium chloride 0.9 % (flush) 10 mL (BD POSIFLUSH) REVIEW OF SYSTEMS: Cardiovascular: denies chest pain or pressure, palpitations. Admits to dizziness, lightheadedness- thinks related to low appetite and hypoglycemia. Denies DE ANDA Denies edema Respiratory: denies cough Genitourinary: denies frequency, pink or bloody urine or dysuria. Has 1 episodes of nocturia per night. Does not interfere with sleep. Does feel they empty bladder fully. Psychiatric: denies depression or anxiety. Reports energy level is good PHYSICAL EXAM BP: BP 137/72 (BP Site: Left Arm, BP Position: Sitting, BP Cuff Size: Regular Adult) Pulse 73 Wt 69 kg (152 lb 1.9 oz) BMI 23.13 kg/m BP - standardized method Pulse 1 BP #1: 137/73 Pulse #1: 73 beats/min 2 BP #2 : 135/72 Pulse #2 : 73 beats/min 3 BP #3 : 137/72 Pulse #3 : 73 beats/min Average Average BP: 137/72 Average Pulse: 73 beats/min Orthostatic vitals Supine Sitting Standing BP cuff location BP cuff location: Left upper arm BP cuff size BP cuff size: regular adult Comments for BP values First BP (right) First BP (left) Constitutional: No acute distress, Responsive, Thin, and Well-nourished Cardiovascular:No peripheral edema Regular rate and rhythm, normal S1 and S2, no murmurs Respiratory: Normal respiratory effort. Extremities: No peripheral edema Neurological: Alert and oriented x3. Psychiatric: Alert and oriented x self, place, time, and setting Normal mood/affect Pleasant Diagnostic tests reviewed for today's visit Labs: Latest Ref Rng 02/27/2023 04/03/2023 07/10/2023 09/13/2023 12/13/2023 01/02/2024 02/07/2024 RENAL KIDNEY STONE FLOWSHEET EGFR, All Other >=60 mL/min/1.73m 22 (L) 24 (L) 21 (L) 16 (L) 21 (L) 15 (L) Creatinine 0.73 - 1.22 mg/dL 3.09 (H) 2.80 (H) 3.18 (H) 3.88 (H) 3.17 (H) 4.22 (H) BUN 9 - 24 mg/dL 50 (H) 49 (H) 59 (H) 63 (H) 44 (H) 64 (H) Sodium 136 - 144 mmol/L 137 140 140 138 141 139 Potassium 3.7 - 5.1 mmol/L 4.1 5.3 (H) 4.8 4.5 3.9 4.8 Chloride 98 - 107 mmol/L 108 (H) 110 (H) 112 (H) 104 110 (H) 107 CO2 22 - 30 mmol/L 17 (L) 19 (L) 18 (L) 20 (L) 23 19 (L) Glucose 74 - 99 mg/dL 156 (H) 169 (H) 144 (H) 87 166 (H) 100 (H) Calcium 8.5 - 10.2 mg/dL 8.7 9.2 9.0 9.2 9.4 9.3 Phosphorus 2.7 - 4.8 mg/dL 4.7 Albumin 3.9 - 4.9 g/dL 3.5 (L) 3.8 (L) 3.9 4.0 WBC 3.70 - 11.00 k/uL 7.91 7.26 8.28 6.69 6.46 7.30 HGB 13.0 - 17.0 g/dL 9.2 (L) 9.3 (L) 8.2 (L) 8.8 (L) 8.3 (L) 8.6 (L) HCT 39.0 - 51.0 % 27.3 (L) 28.3 (L) 25.6 (L) 26.9 (L) 25.7 (L) 27.5 (L) PLT 150 - 400 k/uL 260 266 265 229 206 231 Vitamin D25 Hydroxy 31.0 - 80.0 ng/mL 17.7 (L) Kidney imaging: not on file. ASSESSMENT: Pt is an 68 year old male being seen today in FU for CKD with proteinuria likely in thesetting of diabetic nephropathy. 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 Above goal baseline -Baseline serum creatinine 2.8- 3.1 mg/dL -Proteinuria: Protein creatinine ratio 4.07 in December 2023 -albuminuria: albumin creatinine ratio 2431 in December 2023 On ARB Monoclonal gammopathy and compliments negative in November 2023 HTN/Volume: - controlled on current regimen. -Volume: euvolemic -Currently on amlodipine 10mg daily, hydralazine 50mg tid, losartan 25mg antonieta and metoprolol succinate 100mg daily Metabolic/electrolytes: Hx metabolic acidosis K+- 4.8 wnl Co2- 19 below goal On sodium bicarb 650mg bid- unsure if he's taking it but will check Anemia: Hx anemia -Hgb 8.6 below goal- refer to hematology -denies overt losses- denies hematuria or melena -continue to monitor along with iron stores to assess for need of PAULA. Metabolic Bone: Hx of vitamin D deficiency -Ca+ 9.3 wnl -Phos: 4.7 wnl in December 2023 -Vitamin D: 17.7 below goal in February 2023 On supplemental D3 -PTH: will update CV/Lipids: -hx of hyperlipidemia -on statin -recommend LDL goal of <100 to prevent progression of CKD. DM: -Last HgbA1c 5.8- controlled -follow up with PCP/endo PLAN: -Please get labs drawn next month- around 03/21/24. I will contact you via phone [phone] with results. -try to eat small meals at least twice per day -be sure you are taking the sodium bicarbonate 650mg daily -follow up with PCP as planned -Recommend BP goal of 130s/80 or less. Please contact the office if your blood pressure is less than 110/70 or higher than 150/90. Normal heart rate/pulse is 60-100 beats per minute. Please let us know if you are consistently less than 60 beats or over 100 beats when at rest. -Good diabetes, blood pressure and cholesterol control are important to prevent kidney disease progression -Continue to follow with your specialists and PCP as planned -Follow low salt diet. (1/2 tsp salt) <2 grams or 2000mg -Please watch your protein intake and limit it to 3 ounces of protein per meal -Recommend HgbA1c of 7 or less as CKD goal. -Please avoid Advil, Ibuprofen(Motrin), Aleve(Naproxen), Meloxicam(Mobic), diclofenac and other pain/arthritis medications called NSAIDS. It is ok to take acetaminophen (Tylenol) for pain as needed -Please avoid contrast dye with imaging. If a provider wants to order CT or MRI with contrast, please let them know you have decreased kidney function. -Increase activity as tolerated. Referral to: hematology- blood doctor to manage anemia RTC 3 months with labs monthly Janice Hodges CNP I spent a total of 39 minutes on the date of the service which included preparing to see the patient, [id number] patient care, completing clinical documentation, performing a medically appropriate examination, counseling and educating the patient/family/caregiver and ordering medications, tests, or procedures. Pt will need continued regular follow up (G2211) with nephrology documented in this encounterBluff[facility] Hospital07-18-2024 History of Present illness Narrative* Joseline Ceron RDMS - 02/22/2024 1:00 PM EDT Radiology Service Progress Note PATIENT NAME: Lou Julien DATE OF SERVICE: February 22, 2024 TIME: 1:55 PM PATIENT IDENTITY VERIFICATION COMPLETED USING TWO (2) IDENTIFIERS: Name and Date of confirmedby patient verbally. FALL SCREENING: Has the patient had 2 falls in the last year or 1 fall with injury or currently using an Ambulatory Assistive Device (Walker, Cane, Wheelchair, Crutches, etc.)? No PATIENT GENDER DATA: Male PATIENT RELEVANT IMPLANT DATA REVIEWED: Not Applicable PATIENT PRESENTS WITH AN IMPLANTABLE OR ATTACHED DOCTOR OF NURSING PRACTICE: No RADIOLOGY DEPARTMENT: Ultrasound PERIPHERAL IV DATA: Not applicable SIGNED BY: Joseline Ceron RDMS February 22, 2024 1:55 PM documented in this encounterBluffton Hospital07-03-[facility]24 Instructions* Patient Instructions* Taco Tatum APRN.CNP - 02/07/2024 11:56 AM EDT Call [facility] to Schedule routine follow up. documented in this encounterBluffton Hospital07-03-2024 History of Present illness Narrative* Taco Tatum APRN.CNP - 02/07/2024 11:36 AM EDT CC: Patient presents with: Medicare Wellness Exam: Annual Medicare HPI Lou Julien is a 68 year old male who presents today for annual physical exam. Insuracne on file is currently medicaid. Exercise: denies regular aerobic exercise. Diet: Watches diet for salt (salty snacks, added salt, processed frozen/canned foods), sugary/sweetsnacks, unhealthy fats: Yes Caffeine: none Water intake: 4-5 bottles of water a day. CKD: Follows with nephrology and has appointment in a few weeks. HTN and HLD: Mr. Julien indicates that he is feeling well and denies any symptoms referable to elevated blood pressure. Specifically denies headache, chest pain, palpitations, and peripheral edema. Patient denies any side effects of his medication(s) and is compliant with their regimen. He does not check BP's generally. Can get shortness of breath with exertion which he has had for years without change Last 3 Encounter BP Readings: Date: BP: 02/07/2024 130/68 11/20/2023 177/78 09/13/2023 130/60 CVA: Trouble with memory since CVA and still with some left sided weakness and utilizes a cane. Hasan aide that comes in and helps him with his insulin and medications. DIABETES MELLITUS: Mr. Julien denies excessive thirst or increased frequency of urination, chest painor dyspnea , numbness, tingling or pain in extremities, new or unusual visual symptoms, low sugar/hypoglycemic reactions, weight loss/gain, and bowel changes/loose stools. Does get dizzy with blood sugars in the 80s or below and will improve with eating something. Occurs on average of once a weekFollows a diabetic diet most of the time. He is compliant with medication(s) and is tolerating med(s) without any side effects. He reports checking his glucose on a once a day schedule with sugars in the fasting 100s-150s range. 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 Dyslipidemia Embolism and thrombosis of unspecified site 04/25/2008 Essential hypertension, benign Family history of malignant neoplasm of gastrointestinal tract Non-proliferative diabetic retinopathy, mild, both eyes (HCC) 10/11/2017 Non-proliferative diabetic retinopathy, moderate, both eyes ([facility]) 10/14/2019 Other specific developmental learning difficulties Pneumonia 07/07/2015 Dx at [facility] Psoriasis and similar disorders Pure hypercholesterolemia Pure hyperglyceridemia Right thalamic infarction (HCC) 02/18/2019 [facility] Stenosis of carotid artery Stroke ([facility]) Tietze's disease Tinea unguium 12/01/2017 Type II or unspecified type diabetes mellitus with neurological manifestations, not stated as uncontrolled(250.60) PAST SURGICAL HISTORY Procedure Laterality Date COLONOSCOPY FLX DX W/COLLJ SPEC WHEN PFRMD 2017 repeat 3 years COLONOSCOPY SCREENING 06/22/2023 EGD W/O [facility] SPEC VARICIES INJ 06/22/2023 ESOPHAGOGASTRODUODENOSCOPY TRANSORAL DIAGNOSTIC 2017 EGD LAPAROSCOP GASTRIC BYPASS N/A NEUROPLASTY &/TRANSPOS MEDIAN NRV CARPAL TUNNE 05/08/2012 Carpal tunnel decomp right PACEMAKER 03/04/2019 PAST SURGICAL HISTORY OF EGD PAST SURGICAL HISTORY OF Colonsocopy ALLERGIES Lopid [Gemfibrozil] MEDICATIONS cholecalciferol, Vitamin D3, (VITAMIN D3) 1,250 mcg (50,000 unit) cap capsule^Take 1 capsule twice per week for 12 weeks.^Disp: 24 capsule^Rfl: 0 hydrALAZINE (APRESOLINE) 50 mg tablet^Take 1 tablet by mouth every 8 hours.^Disp: 270 tablet^Rfl: 0 blood sugar diagnostic (BLOOD GLUCOSE TEST) test strip^Test blood sugar(s) three times daily. Dx: Type 2 DM - Uncontrolled E11.65 Insulin: Yes^Disp: 100 Strip^Rfl: 5 clopidogrel (PLAVIX) 75 mg tablet^Take 1 tablet by mouth once daily.^Disp: 30 tablet^Rfl: 5 Senna 8.6 mg tab^Take 1 tablet by mouth three times a day as needed.^Disp: 90 tablet^Rfl: 2 losartan (COZAAR) 25 mg tablet^Take 1 tablet by mouth once daily.^Disp: 90 tablet^Rfl: 3 sodium bicarbonate 650 mg tablet^Take 1 tablet by mouth two times a day. Take by mouth as directed.^Disp: 180 tablet^Rfl: 3 insulin glargine (LANTUS SOLOSTAR U-100 INSULIN) 100 unit/mL (3 mL)^Inject 20 Units subcutaneously every morning.^Disp: 15 mL^Rfl: 5 amLODIPine (NORVASC) 10 mg tablet^Take 1 tablet by mouth once daily.^Disp: 30 tablet^Rfl: 11 multivitamin (DAILY-YOUSUF) tablet^Take 1 tablet by mouth once daily.^Disp: 30 tablet^Rfl: 11 traZODone (DESYREL) 50 mg tablet^Take 1-2 tablets by mouth daily at bedtime.^Disp: 60 tablet^Rfl: 5 atorvastatin (LIPITOR) 80 mg tablet^Take 1 tablet by mouth every morning.^Disp: 28 tablet^Rfl: 11 metoprolol succinate ER (TOPROL XL) 100 mg^Take 1 tablet by mouth every morning.^Disp: 30 tablet^Rfl: 11 tamsulosin (FLOMAX) 0.4 mg^take 1 capsule by mouth at bedtime^Disp: 90 capsule^Rfl: 3 aspirin, enteric coated (ADULT LOW DOSE ASPIRIN) 81 mg EC tablet^Take 1 tablet by mouth every morning.^Disp: 90 tablet^Rfl: 3 alcohol swabs (ALCOHOL PREP PADS)^Apply 1 application to affected area once daily with insulin injection^Disp: 100 Each^Rfl: 3 polyethylene glycol 3350 17 gram/dose powder^Take 17 g by mouth once daily. Drink a mix of 1 scoop in 8oz of water/beverage once daily as needed for constipation.^Disp: 850 g^Rfl: 2 insulin lispro (HUMALOG KWIKPEN INSULIN) 100 unit/mL^Inject 2 Units subcutaneously three times a day before meals.^Disp: 5 Each^Rfl: 5 diclofenac (VOLTAREN) 1 % topical gel^Apply 2 g to affected area four times daily.^Disp: 100 g^Rfl:1 Miscellaneous Medical Supply (BLOOD PRESSURE CUFF)^1 Each once daily.^Disp: 1 Each^Rfl: 0 Blood Pressure Monitor^1 Each as directed.^Disp: 1 Kit^Rfl: 0 Diaper,Brief, Adult,Disposable (DEPEND UNDERWEAR FOR MEN -MD)^1 Each as needed.^Disp: 60 Each^Rfl: 2 Insulin [place], Disposable, (BD ULTRA-FINE LUIS PEN NEEDLE) 32 gauge x 5/32^Use one needle daily for each insulin dose, 4 x's daily. Type 2 DM, insulin dependent.^Disp: 150 Each^Rfl: 3 Lancets lancets^Test blood sugar(s) one times daily. Dx: Type 2 DM - Uncontrolled E11.65 Insulin: Yes^Disp: 100 Each^Rfl: 11 MEDICAL SUPPLY^Hospital bed with rails.^Disp: 1 Each^Rfl: EACH Blood-Glucose Meter^1 Device as directed.^Disp: 1 Each^Rfl: 0 melatonin 3 mg tablet^Take 1 tablet by mouth daily at bedtime.^Disp: 30 tablet^Rfl: 5 glucose (DEX4 GLUCOSE) 4 gram chewable tablet^Take 4 tablets by mouth as needed.^Disp: 20 tablet^Rfl: 2 Lancing Device (LANCING DEVICE WITH LANCETS) misc^Use to check blood sugars as directed^Disp: 1 Each^Rfl: 0 COMPOUNDED PRESCRIPTION^Diabetic shoes: DIABETES MELLITUS- uncontrolled with neuropathy^Disp: 1 Each^Rfl: 3 Syringe with Needle, Safety (BD INTEGRA) 3 mL 22 x 1 1/2 syrg^Uses twice a month for testosterone injections^Disp: 50 Syringe^Rfl: 3 FAMILY HISTORY Problem Relation Age of Onset Stroke Mother Hypertension Mother Colon Cancer Mother Heart Father [place] Diabetes Maternal Grandmother Social History Tobacco Use Smoking status: Former Types: Cigars Smokeless tobacco: Never Tobacco comments: quit 1994 Vaping Use Vaping Use: Never used Substance Use Topics Alcohol use: No Drug use: No PHYSICAL EXAM BP 130/68 Pulse 64 Resp 16 Wt 69.4 kg (153 lb) SpO2 97% BMI 23.26 kg/m General Appearance: well appearing, in no acute distress, alert Eyes: conjunctiva pink and moist, no icterus, sclera white, non-injected Lungs: Lungs clear to auscultation. No wheezing, rhonchi, rales. Heart: RRR without murmur, gallop, or rubs. No ectopy Abdominal Aortic Aneurysm Screening Never done Shingrix Vaccine(1 of 2) Never done Colorectal Cancer Screening due on 2020 Covid-19 Vaccine(2022- season) Never done Advance Directive Discussion due on 08/07/2023 Behavioral Health Screening Never done HbA1C due on 08/30/2023 Diabetic Foot Exam due on 11/17/2023 LDL Cholesterol due on 02/15/2024 RSV Vaccine(1 - 1-dose 60+ series) due on 09/13/2024 Influenza Vaccine(1) due on 04/07/2024 Prostate Cancer Screening Discussion due on 08/15/2024 Dilated Retinal Exam due on 10/24/2024 Annual PCP Team Chronic Disease Visit due on 01/01/2025 Serum Creatinine due on 01/01/2025 Hemoglobin/Hematocrit due on 01/01/2025 BP Controlled (<130/80) due on 01/01/2025 DTaP,Tdap,Td Vaccine(5 - Td or Tdap) due on 10/05/2025 Hepatitis C Screening Completed Pneumococcal Vaccine: 65+ Completed ASSESSMENT/PLAN: 1. Essential hypertension, benign - ICD9: 401.1, ICD10: I10 (primary diagnosis) - Controlled - Continue current medications - Recommend home blood pressure monitoring, to bring results to next visit - Encouraged sodium restriction, DASH or Mediterranean diet - Recommend regular aerobic exercise - COMPREHENSIVE METABOLIC PANEL - COMPLETE BLOOD COUNT AND DIFFERENTIAL 2. Type 2 diabetes mellitus with stage 4 chronic kidney disease, with long-term current use of insulin (HCC) - ICD9: 250.40, 585.4, V58.67, ICD10: E11.22, N18.4, Z79.4 - Control undetermined, due for labs - Continue current medications - Blood glucose monitoring on a three times daily schedule - Counseled on healthy diet and regular exercise - Discussed need for and benefit of weight loss. BMI 23.26 kg/(m^2) - eGFR: 21 Stable - Counseled on avoiding NSAIDs, adequate hydration - Follow up with kidney medicine - CONSULT TO GENERAL SURGERY - COMPREHENSIVE METABOLIC PANEL - COMPLETE BLOOD COUNT AND DIFFERENTIAL 3. 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) - ICD9: 438.22, ICD10: I69.354 - stable - on statin therapy and plavix - PARKING FOR HANDICAPPED - CONSULT TO GENERAL SURGERY 4. Poor memory - ICD9: 780.93, ICD10: R41.3 - CONSULT TO GENERAL SURGERY 5. Screening for abdominal aortic aneurysm - ICD9: V81.2, ICD10: Z13.6 - US SCREENING FOR AAA 6. Colon cancer screening - ICD9: V76.51, ICD10: Z12.11 With the history of CVA resulting in memory concerns and other co-morbidities, will have him see provider prior to colonoscopy - CONSULT TO GENERAL SURGERY Prescription instructions reviewed with patient as applicable. Potential red flag symptoms discussed with the patient. Reviewed appropriate action plan to take if red flag symptoms occur. Patient agreeable to treatment plan. Taco Tatum APRN.CNP documented in this encounterBluffton Hospital06-19-2024 Telephone encounter Note * Telephone Encounter - Virginia Brito RN - 01/24/2024 3:05 PM EDT The patient has been identified by name and date of : Yes Caregiver verified no other encounters exist for this prescription request: Yes Caregiver confirmed with patient/requestor that no other refills are due, in the near future, with this provider at this time: Yes The last office visit in the department: 01/02/2024 Does the patient have a future office visit with this provider/department: Yes, 02/07/2024 Requested Prescriptions Pending Prescriptions Disp Refills cholecalciferol, Vitamin D3, (VITAMIN D3) 1,250 mcg (50,000 unit) cap capsule 24 capsule 0 Sig: Take 1 capsule twice per week for 12 weeks. hydrALAZINE (APRESOLINE) 50 mg tablet 270 tablet 0 Sig: Take 1 tablet by mouth every 8 hours. Virginia Brito RN January 24, 2024 3:07 PM [facility] Miscellaneous Notes* Telephone Encounter - Virginia Brito RN - 01/24/2024 3:05 PM EDT The patient has been identified by name and date of : Yes Caregiver verified no other encounters exist for this prescription request: Yes Caregiver confirmed with patient/requestor that no other refills are due, in the near future, with this provider at this time: Yes The last office visit in the department: 01/02/2024 Does the patient have a future office visit with this provider/department: Yes, 02/07/2024 Requested Prescriptions Pending Prescriptions Disp Refills cholecalciferol, Vitamin D3, (VITAMIN D3) 1,250 mcg (50,000 unit) cap capsule 24 capsule 0 Sig: Take 1 capsule twice per week for 12 weeks. hydrALAZINE (APRESOLINE) 50 mg tablet 270 tablet 0 Sig: Take 1 tablet by mouth every 8 hours. Virginia Brito RN January 24, 2024 3:07 PM documented in this encounterBluffton Hospital05-30-2024 Telephone encounter Note * Telephone Encounter - Brittnee Chapman RN - 01/04/2024 12:41 PM EDT Pharmacy phones for refill(s): Requested Prescriptions Pending Prescriptions Disp Refills blood sugar diagnostic (BLOOD GLUCOSE TEST) test strip 100 Strip 5 Sig: Test blood sugar(s) three times daily. Dx: Type 2 DM - Uncontrolled E11.65 Insulin: Yes Date of last office visit in primary care: 01/02/2024 Date of next office visit in primary care: 02/07/2024 Brittnee Chapman RN. [facility]-30-[facility] Miscellaneous Notes* Telephone Encounter - Brittnee Chapman RN - 01/04/2024 12:41 PM EDT Pharmacy phones for refill(s): Requested Prescriptions Pending Prescriptions Disp Refills blood sugar diagnostic (BLOOD GLUCOSE TEST) test strip 100 Strip 5 Sig: Test blood sugar(s) three times daily. Dx: Type 2 DM - Uncontrolled E11.65 Insulin: Yes Date of last office visit in primary care: 01/02/2024 Date of next office visit in primary care: 02/07/2024 Brittnee Chapman RN. documented in this encounterBluffton Hospital05-30-2024 Telephone encounter Note * Telephone Encounter - Larry Saldaña MA - 01/04/2024 11:10 AM EDT Patient notified, verbalized understanding. [facility]-30-[facility] Miscellaneous Notes* Telephone Encounter - Larry Saldaña MA - 01/04/2024 11:10 AM EDT Patient notified, verbalized understanding. * Telephone Encounter - Yashira Rhoades LPN - 01/02/2024 7:40 PM EDT No answer or voicemail to leave message. Yashira Rhoades LPN * Telephone Encounter - Yashira Rhoades LPN - 01/02/2024 7:40 PM EDT ----- Message from Gloria Rojas APRN.HELIARC WELDER sent at 01/02/2024 2:21 PM EDT ----- Please let the patient know his kidney function and anemia have improved from hospital admission and are back to his baseline Gloria Rojas APRN.HELIARC WELDER documented in this encounterBluffton Hospital05-28-2024 Telephone encounter Note * Telephone Encounter - Yashira Rhoades LPN - 01/02/2024 7:40 PM EDT No answer or voicemail to leave message. Yashira Rhoades LPN [facility]05-28-2024 Telephone encounter Note* Telephone Encounter - Yashira Rhoades LPN - 01/02/2024 7:40 PM EDT ----- Message from Gloria Rojas APRN.HELIARC WELDER sent at 01/02/2024 2:21 PM EDT ----- Please let the patient know his kidney function and anemia have improved from hospital admission and are back to his baseline Gloria Roajs APRN.HELIARC WELDER [facility]05-28-[facility] History of Present illness Narrative* Gloria Rojas APRN.ELROY - 01/02/2024 12:28 PM EDT CC: Patient presents with: Hospital F/U HPI Lou Julien is a 68 year old male who presents today for above. Patient was admitted to [facility] 12/24 to 12/26 for VENICE secondary to intractable diarrhea. He was treated with aggressive IV hydration. Diarrhea, abdominal pain and SOB resolved during admission. No medication changes made. He has a history of CKD and anemia of chronic disease. At discharge his creatinine was 3.61 and Hgb 7.3. Today patient reports he is feeling much better. No further episodes of diarrhea and pushing fluids. Review of Systems Constitutional: Negative for appetite change, chills, diaphoresis, fatigue, fever and unexpected weight change. Respiratory: Negative for cough, shortness of breath and wheezing. Cardiovascular: Negative for chest pain, palpitations and leg swelling. Gastrointestinal: Negative for abdominal distention, abdominal pain, blood in stool, constipation, diarrhea, nausea and vomiting. Genitourinary: Negative for decreased urine volume. Neurological: Negative for dizziness, syncope, weakness, light-headedness and headaches. Psychiatric/Behavioral: Negative for confusion. 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 Dyslipidemia Embolism and thrombosis of unspecified site 04/25/2008 Essential hypertension, benign Family history of malignant neoplasm of gastrointestinal tract Non-proliferative diabetic retinopathy, mild, both eyes (HCC) 10/11/2017 Non-proliferative diabetic retinopathy, moderate, both eyes (HCC) 10/14/2019 Other specific developmental learning difficulties Pneumonia 07/07/2015 Dx at [facility] Psoriasis and similar disorders Pure hypercholesterolemia Pure hyperglyceridemia Right thalamic infarction (HCC) 02/18/2019 [facility] Stenosis of carotid artery Stroke ([facility]) Tietze's disease Tinea unguium 12/01/2017 Type II or unspecified type diabetes mellitus with neurological manifestations, not stated as uncontrolled(250.60) PAST SURGICAL HISTORY Procedure Laterality Date COLONOSCOPY FLX DX W/COLLJ SPEC WHEN PFRMD 2017 repeat 3 years COLONOSCOPY SCREENING 06/22/2023 EGD W/O [facility] SPEC VARICIES INJ 06/22/2023 ESOPHAGOGASTRODUODENOSCOPY TRANSORAL DIAGNOSTIC 2017 EGD LAPAROSCOP GASTRIC BYPASS N/A NEUROPLASTY &/TRANSPOS MEDIAN NRV CARPAL TUNNE 05/08/2012 Carpal tunnel decomp right PACEMAKER 03/04/2019 PAST SURGICAL HISTORY OF EGD PAST SURGICAL HISTORY OF Colonsocopy ALLERGIES Lopid [Gemfibrozil] MEDICATIONS clopidogrel (PLAVIX) 75 mg tablet^Take 1 tablet by mouth once daily.^Disp: 30 tablet^Rfl: 5 Senna 8.6 mg tab^Take 1 tablet by mouth three times a day as needed.^Disp: 90 tablet^Rfl: 2 losartan (COZAAR) 25 mg tablet^Take 1 tablet by mouth once daily.^Disp: 90 tablet^Rfl: 3 sodium bicarbonate 650 mg tablet^Take 1 tablet by mouth two times a day. Take by mouth as directed.^Disp: 180 tablet^Rfl: 3 hydrALAZINE (APRESOLINE) 50 mg tablet^Take 1 tablet by mouth every 8 hours.^Disp: 270 tablet^Rfl: 0 cholecalciferol, Vitamin D3, (VITAMIN D3) 1,250 mcg (50,000 unit) cap capsule^Take 1 capsule twice per week for 12 weeks.^Disp: 24 capsule^Rfl: 0 insulin glargine (LANTUS SOLOSTAR U-100 INSULIN) 100 unit/mL (3 mL)^Inject 20 Units subcutaneously every morning.^Disp: 15 mL^Rfl: 5 amLODIPine (NORVASC) 10 mg tablet^Take 1 tablet by mouth once daily.^Disp: 30 tablet^Rfl: 11 multivitamin (DAILY-YOUSUF) tablet^Take 1 tablet by mouth once daily.^Disp: 30 tablet^Rfl: 11 traZODone (DESYREL) 50 mg tablet^Take 1-2 tablets by mouth daily at bedtime.^Disp: 60 tablet^Rfl: 5 atorvastatin (LIPITOR) 80 mg tablet^Take 1 tablet by mouth every morning.^Disp: 28 tablet^Rfl: 11 metoprolol succinate ER (TOPROL XL) 100 mg^Take 1 tablet by mouth every morning.^Disp: 30 tablet^Rfl: 11 tamsulosin (FLOMAX) 0.4 mg^take 1 capsule by mouth at bedtime^Disp: 90 capsule^Rfl: 3 aspirin, enteric coated (ADULT LOW DOSE ASPIRIN) 81 mg EC tablet^Take 1 tablet by mouth every morning.^Disp: 90 tablet^Rfl: 3 alcohol swabs (ALCOHOL PREP PADS)^Apply 1 application to affected area once daily with insulin injection^Disp: 100 Each^Rfl: 3 polyethylene glycol 3350 17 gram/dose powder^Take 17 g by mouth once daily. Drink a mix of 1 scoop in 8oz of water/beverage once daily as needed for constipation.^Disp: 850 g^Rfl: 2 blood sugar diagnostic (BLOOD GLUCOSE TEST) test strip^Test blood sugar(s) three times daily. Dx: Type 2 DM - Uncontrolled Insulin: Yes^Disp: 100 Strip^Rfl: 5 diclofenac (VOLTAREN) 1 % topical gel^Apply 2 g to affected area four times daily.^Disp: 100 g^Rfl:1 Miscellaneous Medical Supply (BLOOD PRESSURE CUFF)^1 Each once daily.^Disp: 1 Each^Rfl: 0 Blood Pressure Monitor^1 Each as directed.^Disp: 1 Kit^Rfl: 0 Diaper,Brief, Adult,Disposable (DEPEND UNDERWEAR FOR MEN -MD)^1 Each as needed.^Disp: 60 Each^Rfl: 2 Insulin [place], Disposable, (BD ULTRA-FINE LUIS PEN NEEDLE) 32 gauge x 5/32^Use one needle daily for each insulin dose, 4 x's daily. Type 2 DM, insulin dependent.^Disp: 150 Each^Rfl: 3 Lancets lancets^Test blood sugar(s) one times daily. Dx: Type 2 DM - Uncontrolled Insulin: Yes^Disp: 100 Each^Rfl: 11 MEDICAL SUPPLY^Hospital bed with rails.^Disp: 1 Each^Rfl: EACH Blood-Glucose Meter^1 Device as directed.^Disp: 1 Each^Rfl: 0 melatonin 3 mg tablet^Take 1 tablet by mouth daily at bedtime.^Disp: 30 tablet^Rfl: 5 glucose (DEX4 GLUCOSE) 4 gram chewable tablet^Take 4 tablets by mouth as needed.^Disp: 20 tablet^Rfl: 2 Lancing Device (LANCING DEVICE WITH LANCETS) misc^Use to check blood sugars as directed^Disp: 1 Each^Rfl: 0 COMPOUNDED PRESCRIPTION^Diabetic shoes: DIABETES MELLITUS- uncontrolled with neuropathy^Disp: 1 Each^Rfl: 3 Syringe with Needle, Safety (BD INTEGRA) 3 mL 22 x 1 1/2 syrg^Uses twice a month for testosterone injections^Disp: 50 Syringe^Rfl: 3 insulin lispro (HUMALOG KWIKPEN INSULIN) 100 unit/mL^Inject 2 Units subcutaneously three times a day before meals.^Disp: 5 Each^Rfl: 5 FAMILY HISTORY Problem Relation Age of Onset Stroke Mother Hypertension Mother Colon Cancer Mother Heart Father [place] Diabetes Maternal Grandmother Social History Tobacco Use Smoking status: Former Types: Cigars Smokeless tobacco: Never Tobacco comments: quit 1994 Vaping Use Vaping Use: Never used Substance Use Topics Alcohol use: No Drug use: No BP (P) 110/60 (BP Site: Left Arm, BP Position: Sitting, BP Cuff Size: Regular Adult) Pulse (P) 64 Resp (P) 20 Wt (P) 71 kg (156 lb 8 oz) BMI (P) 23.80 kg/m Physical Exam Vitals reviewed. Constitutional: Appearance: Normal appearance. HENT: Mouth/Throat: Mouth: Mucous membranes are moist. Eyes: Conjunctiva/sclera: Conjunctivae normal. Cardiovascular: Rate and Rhythm: Normal rate and regular rhythm. Pulses: Normal pulses. Heart sounds: Normal heart sounds. No murmur heard. Pulmonary: Effort: Pulmonary effort is normal. Breath sounds: Normal breath sounds. No wheezing, rhonchi or rales. Abdominal: General: There is no distension. Palpations: Abdomen is soft. Tenderness: There is no abdominal tenderness. Skin: General: Skin is dry. Neurological: Mental Status: He is alert. Psychiatric: Mood and Affect: Mood normal. DATA REVIEWED: Outside chart from [facility] ER reviewed. ASSESSMENT/PLAN: 1. VENICE (acute kidney injury) (HCC) - ICD9: 584.9, ICD10: N17.9 (primary diagnosis) Secondary to diarrhea/dehydration. Symptoms have resolved. Repeat labs today: - BASIC METABOLIC PANEL - COMPLETE BLOOD COUNT Follow-up as needed for any recurrent or persistent symptoms 2. Anemia due to chronic kidney disease, unspecified CKD stage - ICD9: 285.21, ICD10: N18.9, D63.1 Recheck - COMPLETE BLOOD COUNT 3. Diarrhea, unspecified type - ICD9: 787.91, ICD10: R19.7 Resolved Prescription instructions reviewed with patient as applicable. Potential red flag symptoms discussed with the patient. Reviewed appropriate action plan to take if red flag symptoms occur. Patient agreeable to treatment plan. Gloria Rojas APRN.ELROY documented in this encounterBluffton Hospital05-23-2024 Telephone encounter Note * Telephone Encounter - Rocky Argueta RN - 12/28/2023 2:47 PM EDT Patient has been identified by name and date of : Yes, Provider Dr Manrique Date 12/28/23 Time 1450. Pharmacy phones for refill(s): Requested Prescriptions Pending Prescriptions Disp Refills clopidogrel (PLAVIX) 75 mg tablet 30 tablet 5 Sig: Take 1 tablet by mouth once daily. Date of last office visit in primary care: 09/13/23 Date of next office visit in primary care: 01/02/2024 Please advise. Thank you. Rocky Argueta RN. [facility]05-23-2024 Miscellaneous Notes* Telephone Encounter - Rocky Argueta RN - 12/28/2023 2:47 PM EDT Patient has been identified by name and date of : Yes, Provider Dr Manrique Date 12/28/23 Time 1450. Pharmacy phones for refill(s): Requested Prescriptions Pending Prescriptions Disp Refills clopidogrel (PLAVIX) 75 mg tablet 30 tablet 5 Sig: Take 1 tablet by mouth once daily. Date of last office visit in primary care: 09/13/23 Date of next office visit in primary care: 01/02/2024 Please advise. Thank you. Rocky Argueta RN. documented in this encounterBluff[facility]04-26-[facility]24 Telephone encounter Note * Telephone Encounter - Brittnee Chapman RN - 12/01/2023 1:48 PM EDT [facility] requesting refill of pt's Senna. Of note, pt reported he was taking this 3 times daily. Provider may adjust script if agreeable to increase. Requested Prescriptions Pending Prescriptions Disp Refills Senna 8.6 mg tab 120 tablet 3 Sig: Take 1 tablet by mouth two times a day. Date of last office visit in primary care: 07/26/2023 Date of next office visit in primary care: 02/07/2024 Brittnee Chapman RN. [facility]04-26-2024 Miscellaneous Notes* Telephone Encounter - Brittnee Chapman RN - 12/01/2023 1:48 PM EDT [facility] requesting refill of pt's Senna. Of note, pt reported he was taking this 3 times daily. Provider may adjust script if agreeable to increase. Requested Prescriptions Pending Prescriptions Disp Refills Senna 8.6 mg tab 120 tablet 3 Sig: Take 1 tablet by mouth two times a day. Date of last office visit in primary care: 07/26/2023 Date of next office visit in primary care: 02/07/2024 Brittnee Chapman RN. documented in this encounterBluffton Hospital04-15-2024 Instructions* Patient Instructions* Omid Olmos DO - 11/20/2023 10:00 AM EDT Your renal disease is likely secondary to diabetic nephropathy Avoid Advil, Motrin (Ibuprofen), Aleve (Naproxen), Mobic (Meloxicam), Voltaren (Diclofenac) and other pain/arthritis medications called NSAIDS. Tylenol or topical voltaren gel if necessary for pain Lab work today Follow up with Dr. Olmos or janice hodges in 3 months. General nephrology recommendations: o Tight glycemic control with A1C < 7.0 o Treat proteinuria with goal urine protein excretion < 500mg/dl o Treat metabolic acidosis and keep serum bicarbonate (CO2) > 20 o Keep serum phosphorus between 3.5-5.5mg/dl o Treat hyperlipidemia with Goal LDL <100mg/dl o Maintain a 2 gram sodium restricted diet o Avoid all nephrotoxic agents including NSAIDs, as above o MRI with gadolinium contrast is safe o Hydration advised prior to CT with iodinated contrast Please bring a complete list of your medications, the dosage and times taken - to every visit. We want to know that ALL of your concerns/needs relevant to this visit- were met today and that we have hopefully exceeded your expectations. You may receive a survey regarding your care today. If you do, please take a few minutes to fill itout and send it back. It will be greatly appreciated. documented in this encounterBluffton Hospital04-15-2024 History of Present illness Narrative* Omid Olmos DO - 11/20/2023 9:20 AM EDT Department of Kidney Medicine Medical Specialties [facility] SERVICE DATE: 11/20/2023 SERVICE TIME: 10:05 AM REASON FOR CONSULT: I am asked to see this patient in consultation for my opinion regarding chronickidney disease stage IV. My recommendations will be communicated by way of shared medical record, fax, or mail. REQUESTING PHYSICIAN: No ref. provider found PRIMARY CARE PHYSICIAN: Vera Manrique MD CHIEF COMPLAINT: Chronic kidney disease stage IV HPI: Mr. Julien is a 67 year old male with a PMHx of CVA, complete heart block, primary hypertension,diabetes mellitus type II c/b retinopathy, carotid artery stenosis, and psoriasis who presents withchronic kidney disease stage IV. Baseline creatinine 1.1 until 10/10/2019 VENICE 08/22/2019 with peak creatinine of 1.5 - TIA Progression of renal dysfunction from 2019 to present. Current baseline creatinine 2.8-3.1. ACR progressively worsening since 2017. ACR 4,876 CT a/p 06/2023 with punctuate calculi, no obstruction Diabetes historically uncontrolled, improved control over the past three years. Current hypertension regimen: - Amlodipine 10 mg daily - Hydralazine 50 mg TID - Metoprolol 100 mg daily Previously on lisinopril. Discontinued 04/23/2021. 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 Dyslipidemia Embolism and thrombosis of unspecified site 04/25/2008 Essential hypertension, benign Family history of malignant neoplasm of gastrointestinal tract Non-proliferative diabetic retinopathy, mild, both eyes (HCC) 10/11/2017 Non-proliferative diabetic retinopathy, moderate, both eyes (HCC) 10/14/2019 Other specific developmental learning difficulties Pneumonia 07/07/2015 Dx at [facility] ER Psoriasis and similar disorders Pure hypercholesterolemia Pure hyperglyceridemia Right thalamic infarction (HCC) 02/18/2019 [facility] Stenosis of carotid artery Stroke ([facility]) Tietze's disease Tinea unguium 12/01/2017 Type II or unspecified type diabetes mellitus with neurological manifestations, not stated as uncontrolled(250.60) PAST SURGICAL HISTORY: PAST SURGICAL HISTORY Procedure Laterality Date COLONOSCOPY FLX DX W/COLLJ SPEC WHEN PFRMD 2017 repeat 3 years COLONOSCOPY SCREENING 06/22/2023 EGD W/O [facility] SPEC VARICIES INJ 06/22/2023 ESOPHAGOGASTRODUODENOSCOPY TRANSORAL DIAGNOSTIC 2017 EGD LAPAROSCOP GASTRIC BYPASS N/A NEUROPLASTY &/TRANSPOS MEDIAN NRV CARPAL TUNNE 05/08/2012 Carpal tunnel decomp right PACEMAKER 03/04/2019 PAST SURGICAL HISTORY OF EGD PAST SURGICAL HISTORY OF Colonsocopy FAMILY HISTORY: FAMILY HISTORY Problem Relation Age of Onset Stroke Mother Hypertension Mother Colon Cancer Mother Heart Father IA Diabetes Maternal Grandmother SOCIAL HISTORY: Social History Tobacco Use Smoking status: Former Types: Cigars Smokeless tobacco: Never Tobacco comments: quit 1994 Vaping Use Vaping Use: Never used Substance Use Topics Alcohol use: No Drug use: No MEDICATIONS: hydrALAZINE (APRESOLINE) 50 mg tablet^Take 1 tablet by mouth every 8 hours.^Disp: 270 tablet^Rfl: 0 cholecalciferol, Vitamin D3, (VITAMIN D3) 1,250 mcg (50,000 unit) cap capsule^Take 1 capsule twice per week for 12 weeks.^Disp: 24 capsule^Rfl: 0 insulin glargine (LANTUS SOLOSTAR U-100 INSULIN) 100 unit/mL (3 mL)^Inject 20 Units subcutaneously every morning.^Disp: 15 mL^Rfl: 5 amLODIPine (NORVASC) 10 mg tablet^Take 1 tablet by mouth once daily.^Disp: 30 tablet^Rfl: 11 multivitamin (DAILY-YOUSUF) tablet^Take 1 tablet by mouth once daily.^Disp: 30 tablet^Rfl: 11 traZODone (DESYREL) 50 mg tablet^Take 1-2 tablets by mouth daily at bedtime.^Disp: 60 tablet^Rfl: 5 atorvastatin (LIPITOR) 80 mg tablet^Take 1 tablet by mouth every morning.^Disp: 28 tablet^Rfl: 11 metoprolol succinate ER (TOPROL XL) 100 mg^Take 1 tablet by mouth every morning.^Disp: 30 tablet^Rfl: 11 tamsulosin (FLOMAX) 0.4 mg^take 1 capsule by mouth at bedtime^Disp: 90 capsule^Rfl: 3 aspirin, enteric coated (ADULT LOW DOSE ASPIRIN) 81 mg EC tablet^Take 1 tablet by mouth every morning.^Disp: 90 tablet^Rfl: 3 alcohol swabs (ALCOHOL PREP PADS)^Apply 1 application to affected area once daily with insulin injection^Disp: 100 Each^Rfl: 3 clopidogrel (PLAVIX) 75 mg tablet^Take 1 tablet by mouth once daily.^Disp: 30 tablet^Rfl: 5 polyethylene glycol 3350 17 gram/dose powder^Take 17 g by mouth once daily. Drink a mix of 1 scoop in 8oz of water/beverage once daily as needed for constipation.^Disp: 850 g^Rfl: 2 blood sugar diagnostic (BLOOD GLUCOSE TEST) test strip^Test blood sugar(s) three times daily. Dx: Type 2 DM - Uncontrolled E11.65 Insulin: Yes^Disp: 100 Strip^Rfl: 5 insulin lispro (HUMALOG KWIKPEN INSULIN) 100 unit/mL^Inject 2 Units subcutaneously three times a day before meals.^Disp: 5 Each^Rfl: 5 Senna 8.6 mg tab^Take 1 tablet by mouth twice daily.^Disp: 120 tablet^Rfl: 3 (Patient taking differently: Take 8.6 mg by mouth three times a day.) diclofenac (VOLTAREN) 1 % topical gel^Apply 2 g to affected area four times daily.^Disp: 100 g^Rfl:1 Miscellaneous Medical Supply (BLOOD PRESSURE CUFF)^1 Each once daily.^Disp: 1 Each^Rfl: 0 Blood Pressure Monitor^1 Each as directed.^Disp: 1 Kit^Rfl: 0 Diaper,Brief, Adult,Disposable (DEPEND UNDERWEAR FOR MEN -NH)^1 Each as needed.^Disp: 60 Each^Rfl: 2 Insulin [place], Disposable, (BD ULTRA-FINE LUIS PEN NEEDLE) 32 gauge x 5/32^Use one needle daily for each insulin dose, 4 x's daily. Type 2 DM, insulin dependent.^Disp: 150 Each^Rfl: 3 Lancets lancets^Test blood sugar(s) one times daily. Dx: Type 2 DM - Uncontrolled E11.65 Insulin: Yes^Disp: 100 Each^Rfl: 11 MEDICAL SUPPLY^Hospital bed with rails.^Disp: 1 Each^Rfl: EACH Blood-Glucose Meter^1 Device as directed.^Disp: 1 Each^Rfl: 0 melatonin 3 mg tablet^Take 1 tablet by mouth daily at bedtime.^Disp: 30 tablet^Rfl: 5 glucose (DEX4 GLUCOSE) 4 gram chewable tablet^Take 4 tablets by mouth as needed.^Disp: 20 tablet^Rfl: 2 Lancing Device (LANCING DEVICE WITH LANCETS) misc^Use to check blood sugars as directed^Disp: 1 Each^Rfl: 0 COMPOUNDED PRESCRIPTION^Diabetic shoes: DIABETES MELLITUS- uncontrolled with neuropathy^Disp: 1 Each^Rfl: 3 Syringe with Needle, Safety (BD INTEGRA) 3 mL 22 x 1 1/2 syrg^Uses twice a month for testosterone injections^Disp: 50 Syringe^Rfl: 3 ALLERGIES: ALLERGIES Allergen Reactions Lopid [Gemfibrozil] Diarrhea PHYSICAL EXAM: BP 177/78 (BP Site: Right Arm, BP Position: Sitting, BP Cuff Size: Regular Adult) Pulse 66 Resp 16 Ht 172.7 cm (5' 8) Wt 67.8 kg (149 lb 7.6 oz) BMI 22.73 kg/m Constitutional: No acute distress, Responsive, Normal habitus, and Well-nourished Eyes: Conjunctiva clear and PERRL Ear, Nose, and Throat: Hearing normal, Lips normal, and Dentition normal Neck:Trachea midline No jugular venous distension Cardiovascular:No peripheral edema Regular rate and ryhthm, normal S1 and S2, no murmurs, rubs, or gallops Respiratory: Normal respiratory effort. Lungs clear bilaterally. Abdomen:Soft, non-tender, non-distended. Normal bowel sounds. No hepatosplenomegaly. Musculoskeletal: No clubbing or cyanosis of digits., Normocephalic., and No muscle weakness, joint tenderness, or joint effusions. Neurologic:CN II-XII intact and Normal sensation Psychiatric: Alert and oriented x self, place, time, and setting Normal mood/affect DATA: Diagnostic tests reviewed for today's visit: Glucose (mg/dL) Date Value 09/13/2023 144 04/26/2021 216 Potassium (mmol/L) Date Value 09/13/2023 4.8 04/26/2021 4.6 Sodium (mmol/L) Date Value 09/13/2023 140 04/26/2021 134 Chloride (mmol/L) Date Value 09/13/2023 112 04/26/2021 103 CO2 (mmol/L) Date Value 09/13/2023 18 04/26/2021 16 Creatinine (mg/dL) Date Value 09/13/2023 3.18 04/26/2021 2.09 BUN (mg/dL) Date Value 09/13/2023 59 04/26/2021 62 Anion Gap (mmol/L) Date Value 09/13/2023 10 04/26/2021 15 Calcium (mg/dL) Date Value 04/26/2021 8.7 Calcium, Total (mg/dL) Date Value 09/13/2023 9.0 Protein, Total (g/dL) Date Value 09/13/2023 6.2 10/10/2019 6.0 Albumin (g/dL) Date Value 09/13/2023 3.8 10/10/2019 3.4 Bilirubin, Total (mg/dL) Date Value 09/13/2023 0.2 10/10/2019 0.4 Alkaline Phosphatase (U/L) Date Value 09/13/2023 115 10/10/2019 113 AST (U/L) Date Value 09/13/2023 20 10/10/2019 16 ALT (U/L) Date Value 09/13/2023 18 10/10/2019 12 ASSESSMENT: Mr. Julien is a 67 year old male with a PMHx of CVA, complete heart block, primary hypertension, diabetes mellitus type II c/b retinopathy, carotid artery stenosis, and psoriasis who presents with chronic kidney disease stage IV. Chronic kidney disease stage IV - Secondary to diabetic nephropathy. Monoclonal gammopathy negative. Baseline creatinine 1.1 until 10/10/2019 VENICE 08/22/2019 with peak creatinine of 1.5 - Hemodynamics in the setting of stroke Progression of renal dysfunction from 2019 to present. Current baseline creatinine 2.8-3.1. ACR progressively worsening since 2017. ACR 4,876 CT a/p 06/2023 with punctuate calculi, no obstruction 2. Anemia of renal disease - Hemoglobin below goal, following with hematology/oncology 3. Secondary hyperparathyroidism - Calcium controlled 4. Primary hypertension - Uncontrolled on current medications Current hypertension regimen: - Amlodipine 10 mg daily - Hydralazine 50 mg TID - Metoprolol 100 mg daily 5. Hyperlipidemia - Statin 6. Metabolic acidosis - In the setting of chronic kidney disease, RTA IV physiology PLAN: - Discussed the function of the kidneys in the body, how they work, how kidney function is measured, normal levels of kidney function, how kidney function changes over time. Discussed current level of kidney function and how that fits into the spectrum of kidney disease. Discussed etiology for thisas above. - Start losartan 25 mg daily - Start sodium bicarbonate 650 mg BID - Update labs. Check complements, NONI - Follow up in 3 months, labs prior I spent a total of 70 minutes on the date of the service which included preparing to see the patient, [id number] patient care, and completing clinical documentation. SIGNATURE: Omid Olmos DO [facility]SA PATIENT NAME: Lou Julien DATE: November 20, 2023 TIME: 10:05 AM CC: REFERRING PROVIDER: No ref. provider found PRIMARY CARE PHYSICIAN: Vera Manrique MD documented in this encounterBluffton Hospital04-02-2024 Miscellaneous Notes* Telephone Encounter - Gisell Yanes LPN - 11/07/2023 4:19 PM EDT Pt. informed Appt made. * Telephone Encounter - Elda Mcgowan APRN.HELIARC WELDER - 11/07/2023 4:05 PM EDT I agree, he needs to be seen in order for us to refill. It looks like he has cancelled the appointment for tomorrow. Please reinforce for refills on the norco he needs to be seen given the new pain. * Telephone Encounter - Oliva Luis RN - 11/07/2023 3:22 PM EDT Patient call in for refill on Irmo due to back pain x 2 weeks. Patient states that he has been having a hard time walking due to the pain. Nurse Triage assessment completed with protocol recommending for disposition of See PCP in 4 hours.Advised patient that if he is in that much pain then he should go to ER to be evaluated. Patient isdeclining this. Patient states that they will not do anything for him in ER. Patient scheduled appointment with Elda for tomorrow. Care advice reviewed with patient, patient stated understanding. Reason for Disposition [1] SEVERE back pain (e.g., excruciating, unable to do any normal activities) AND [2] not improved 2 hours after pain medicine Answer Assessment - Initial Assessment Questions 1. ONSET: Began 2 weeks ago 2. LOCATION: Lower Back 3. SEVERITY: Patient rates pain 8 out of 10 4. PATTERN: Constant 5. RADIATION: Shoots to bilateral legs 6. CAUSE: Unsure 7. BACK OVERUSE: Denies 8. MEDICINES: Tylenol states does not help 9. NEUROLOGIC SYMPTOMS Denies 10. OTHER SYMPTOMS: Denies other symptoms Protocols used: Back [id number] documented in this encounterBluffton Hospital02-29-2024 Miscellaneous Notes* Telephone Encounter - Rema Ness RN - 10/05/2023 4:06 PM EST Patient has been identified by name and date of : Yes, Provider Lance Date 10-05-23 Time 4:07 pm Pharmacy phones for refill(s): Requested Prescriptions Pending Prescriptions Disp Refills amLODIPine (NORVASC) 10 mg tablet 30 tablet 11 Sig: Take 1 tablet by mouth once daily. multivitamin (DAILY-YOUSUF) tablet 30 tablet 11 Sig: Take 1 tablet by mouth once daily. Date of last office visit in primary care: 07/26/2023 Date of next office visit in primary care: 10/30/2023 Please advise. Thank you. Rema Ness RN. documented in this encounterBluffton Hospital02-14-2024 Miscellaneous Notes* Telephone Encounter - Talya Meza - 09/20/2023 10:22 AM EST Pt informed, verbalized understanding. Talya Meza * Telephone Encounter - La De Leon APRN.CNP - 09/20/2023 8:16 AM EST The following approved medication requests have been transmitted electronically. Requested Prescriptions Signed Prescriptions Disp Refills traZODone (DESYREL) 50 mg tablet 60 tablet 5 Sig: Take 1-2 tablets by mouth daily at bedtime. Authorizing Provider: VERA MANRIQUE Ordering User: LA DE LEON APRN.CNP * Telephone Encounter - Brittnee Chapman RN - 09/19/2023 10:45 AM EST Patient calling in and was seen by Daisy Noel CNP on 09/14 regarding difficulty sleeping. During visit pt was advised that he could increase his current trazadone if needed, as copied: ASSESSMENT/PLAN: 1. Difficulty sleeping - ICD9: 780.50, ICD10: G47.9 (primary diagnosis) Refilled trazodone 50 mg daily. OK to increase to 2 tablets at bedtime if needed. Patient gets his medication packaged by [facility] in a pillpac. Asking if script can be sent to package 50 mg trazadone in separate daily pillpac on own, for patient to trial with his other 50 mg tablet as needed? Script pended for review. No call back needed to patient if able to send script to [facility]. Thank you. documented in this encounterBluffton Hospital02-13-2024 Miscellaneous Notes* Telephone Encounter - EMILIA Mojica Laurie - 09/19/2023 4:24 PM EST Pt notified. Michelle Mojica MA * Telephone Encounter - Elda Mcgowan APRN.CNP - 09/19/2023 2:31 PM EST Please call and let them know new RX sent. * Telephone Encounter - Kasey Flynn - 09/19/2023 10:59 AM EST Lou is calling Vera Manrique MD today with concern regarding Medication Problem: traZODone (DESYREL) 50 mg tablet 30 tablet 5 09/13/2023 -- Sig: Take 1 tablet by mouth daily at bedtime. Sent to pharmacy as: traZODone (DESYREL) 50 mg tablet Class: Normal Route: ORAL Order: [id number] E-Prescribing Status: Receipt confirmed by pharmacy (09/13/2023 11:15 AM EST) Yashira, patient's Aide stated that the nurse told her the medication can be increased to take 2 pills per day. However, [facility] requires an updated prescription is sent to them. Please notify the patient/Yashira once completed. Patient has been identified by name and birthdate. Duration of symptoms: N/A Person calling: self Call patient at: on cell [phone] (home) [phone] (cell) Was an appointment scheduled: No Closing statement: Results or non-symptom based questions: Thank you for calling [facility], your call will be returned within the next business day. Kasey Hayes documented in this encounterBluffton Hospital02-08-2024 Miscellaneous Notes* Telephone Encounter - Michelle Cornelius LPN - 09/14/2023 11:01 AM EST Spoke with pt and information listed below given. Pt verbalizes understanding. Pt reports he does not have a kidney specialist. 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 Michelle Cornelius LPN * Telephone Encounter - Daisy Noel APRN.ELROY - 09/14/2023 10:34 AM EST Please call patient and let him know that lab work results look stable. Kidney function is slightly worse than priors. Does he see kidney specialists? If not, I would recommend he does. Thank you, Daisy Noel APRN.HELIARC WELDER documented in this encounterBluffton Hospital02-07-2024 History of Present illness Narrative* Daisy Noel APRN.ELROY - 09/13/2023 11:05 AM EST Chief Complaint Patient presents with: for last couple weeks not sleeping at all: Says does not know what it is HPI Lou Julien is a 67 year old male who presents here today for Above Complaints. Lou is an established patient of Dr. Lance MD. He is a new patient to me today. Concerns today.. Difficulty sleeping --- Can't sleep x a few weeks. Unable to nap or get any rest. Physically feels very tired but can't fall asleep. Reports sleeping 1-2 hours each the past few nights in a row. Normally pt goes to bed around 630pm and wakes up for the day around 2-3am. Pt reports being on this schedule for the last few years and works well. Still normally getting about 8 hours of sleep withthis schedule. No dx of NEAL, no CPAP. Pt denies snoring or apneic episodes. Pt does live alone. Pt reports being prescribed trazodone when similar symptoms happened in the past and trazodone worked well to help him sleep. Pt reports being out of trazodone x 1-2 months. Pt denies any CP, palpitations, or dizziness. Last 14 Encounter BP Readings: Date: BP: 09/13/2023 130/60 07/26/2023 130/56 07/11/2023 169/81 07/10/2023 138/70 05/29/2023 116/56 05/02/2023 130/60 04/03/2023 146/64 03/13/2023 140/60 02/27/2023 150/62 01/25/2023 148/72 11/16/2022 138/66 10/19/2022 138/72 09/20/2022 108/50 09/08/2022 124/62 Past medical history, appointments, medications, allergies reviewed. 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 Dyslipidemia Embolism and thrombosis of unspecified site 04/25/2008 Essential hypertension, benign Family history of malignant neoplasm of gastrointestinal tract Non-proliferative diabetic retinopathy, mild, both eyes ([facility]) 10/11/2017 Non-proliferative diabetic retinopathy, moderate, both eyes ([facility]) 10/14/2019 Other specific developmental learning difficulties Pneumonia 07/07/2015 Dx at [facility] ER Psoriasis and similar disorders Pure hypercholesterolemia Pure hyperglyceridemia Right thalamic infarction (HCC) 02/18/2019 [facility] Stenosis of carotid artery Stroke ([facility]) Tietze's disease Tinea unguium 12/01/2017 Type II or unspecified type diabetes mellitus with neurological manifestations, not stated as uncontrolled(250.60) Previous Surgical History PAST SURGICAL HISTORY Procedure Laterality Date COLONOSCOPY FLX DX W/COLLJ SPEC WHEN PFRMD 2017 repeat 3 years COLONOSCOPY SCREENING 06/22/2023 EGD W/O [facility] SPEC VARICIES INJ 06/22/2023 ESOPHAGOGASTRODUODENOSCOPY TRANSORAL DIAGNOSTIC 2017 EGD LAPAROSCOP GASTRIC BYPASS N/A NEUROPLASTY &/TRANSPOS MEDIAN NRV CARPAL TUNNE 05/08/2012 Carpal tunnel decomp right PACEMAKER 03/04/2019 PAST SURGICAL HISTORY OF EGD PAST SURGICAL HISTORY OF Colonsocopy Family History FAMILY HISTORY Problem Relation Age of Onset Stroke Mother Hypertension Mother Colon Cancer Mother Heart Father IA Diabetes Maternal Grandmother Patient Allergies ALLERGIES Allergen Reactions Lopid [Gemfibrozil] Diarrhea Current Medications Current Outpatient Medications on File Prior to Visit Medication Sig tamsulosin (FLOMAX) 0.4 mg take 1 capsule by mouth at bedtime aspirin, enteric coated (ADULT LOW DOSE ASPIRIN) 81 mg EC tablet Take 1 tablet by mouth every morning. cholecalciferol, Vitamin D3, (VITAMIN D3) 1,250 mcg (50,000 unit) cap capsule Take 1 capsule twice per week for 12 weeks. alcohol swabs (ALCOHOL PREP PADS) Apply 1 application to affected area once daily with insulin injection hydrALAZINE (APRESOLINE) 50 mg tablet Take 1 tablet by mouth every 8 hours. traZODone (DESYREL) 50 mg tablet Take 1 tablet by mouth daily at bedtime. clopidogrel (PLAVIX) 75 mg tablet Take 1 tablet by mouth once daily. polyethylene glycol 3350 17 gram/dose powder Take 17 g by mouth once daily. Drink a mix of 1 scoop in 8oz of water/beverage once daily as needed for constipation. blood sugar diagnostic (BLOOD GLUCOSE TEST) test strip Test blood sugar(s) three times daily. Dx: Type 2 DM - Uncontrolled E11.65 Insulin: Yes Senna 8.6 mg tab Take 1 tablet by mouth twice daily. (Patient taking differently: Take 8.6 mg by mouth three times a day.) diclofenac (VOLTAREN) 1 % topical gel Apply 2 g to affected area four times daily. Blood Pressure Monitor 1 Each as directed. amLODIPine (NORVASC) 10 mg tablet Take 1 tablet by mouth once daily. multivitamin (DAILY-YOUSUF) tablet Take 1 tablet by mouth once daily. Diaper,Brief, Adult,Disposable (DEPEND UNDERWEAR FOR MEN SM-MD) 1 Each as needed. atorvastatin (LIPITOR) 80 mg tablet Take 1 tablet by mouth every morning. metoprolol succinate ER (TOPROL XL) 100 mg Take 1 tablet by mouth every morning. insulin glargine (LANTUS SOLOSTAR U-100 INSULIN) 100 unit/mL (3 mL) Inject 20 Units subcutaneously every morning. Insulin [place], Disposable, (BD ULTRA-FINE LUIS PEN NEEDLE) 32 gauge x Use one needle daily for each insulin dose, 4 x's daily. Type 2 DM, insulin dependent. Lancets lancets Test blood sugar(s) one times daily. Dx: Type 2 DM - Uncontrolled E11.65 Insulin: Yes MEDICAL SUPPLY Hospital bed with rails. Blood-Glucose Meter 1 Device as directed. melatonin 3 mg tablet Take 1 tablet by mouth daily at bedtime. glucose (DEX4 GLUCOSE) 4 gram chewable tablet Take 4 tablets by mouth as needed. Lancing Device (LANCING DEVICE WITH LANCETS[place] [facility] [place] blood sugars as directed COMPOUNDED PRESCRIPTION Diabetic shoes: DIABETES MELLITUS- uncontrolled with neuropathy Syringe with Needle, Safety (BD INTEGRA) 3 mL 22 x 1 1/2 syrg Uses twice a month for testosterone injections insulin lispro (HUMALOG KWIKPEN INSULIN) 100 unit/mL Inject 2 Units subcutaneously three times a day before meals. Miscellaneous Medical Supply (BLOOD PRESSURE CUFF) 1 Each once daily. Current Facility-Administered Medications on File Prior to Visit Medication perflutren lipid microspheres 1.3 mL in NaCl (PF) 0.9% 10 mL injection (DEFINITY) sodium chloride 0.9 % (flush) 10 mL (BD POSIFLUSH) Social History Social History Tobacco Use Smoking status: Former Types: Cigars Smokeless tobacco: Never Tobacco comments: quit 1994 Vaping Use Vaping Use: Never used Substance Use Topics Alcohol use: No Drug use: No REVIEW OF SYSTEMS: as above Reviewed relevant PMHx, PSHx, Social Hx, current medications and allergies. Review of Symptoms REVIEW OF SYSTEMS See HPI. EXAM: BP 130/60 (BP Site: Left Arm, BP Position: Sitting, BP Cuff Size: Regular Adult) Pulse 68 Resp 16 Wt 69.3 kg (152 lb 12.8 oz) BMI 22.38 kg/m General Appearance: Well appearing, alert, in no acute distress, well-hydrated, well nourished.. Skin: Skin color, texture, turgor normal, no suspicious rashes or lesions. Head: Normocephalic, no masses, lesions, tenderness or abnormalities. Neck: Supple, no adenopathy; thyroid symmetric, normal size, no bruits. Lungs: Lungs clear to auscultation. No wheezing, rhonchi, rales.. Heart: RRR without murmur, gallop, or rubs. No ectopy. Health Maintenance List Abdominal Aortic Aneurysm Screening Never done Colorectal Cancer Screening due on 2020 BP Controlled (<130/80) due on 04/23/2022 Advance Directive Discussion due on 08/07/2023 Depression Assessment due on 08/07/2023 HbA1C due on 08/30/2023 Shingrix Vaccine(1 of 2) due on 11/17/2023 Covid-19 Vaccine(1) due on 11/17/2023 Pneumococcal Vaccine: 65+(2 of 2 - PCV) due on 01/26/2024 RSV Vaccine(1 - 1-dose 60+ series) due on 09/13/2024 Diabetic Foot Exam due on 11/17/2023 LDL Cholesterol due on 02/15/2024 Dilated Retinal Exam due on 03/28/2024 Serum Creatinine due on 07/10/2024 Hemoglobin/Hematocrit due on 07/10/2024 Annual PCP Team Chronic Disease Visit due on 07/26/2024 Prostate Cancer Screening Discussion due on 08/15/2024 DTaP,Tdap,Td Vaccine(5 - Td or Tdap) due on 10/05/2025 Influenza Vaccine Completed Hepatitis C Screening Completed HIV Screening Completed ASSESSMENT/PLAN: 1. Difficulty sleeping - ICD9: 780.50, ICD10: G47.9 (primary diagnosis) Refilled trazodone 50 mg daily. OK to increase to 2 tablets at bedtime if needed. Lab work as below to rule out acute cause of significant disrupted sleep. - COMP METABOLIC PANEL - CBC + DIFF - TSH BLD - T4 FREE/FREE THYROX 2. Insomnia, unspecified type - ICD9: 780.52, ICD10: G47.00 See above. - TRAZODONE 50 MG TABLET RTO as needed if no improvement. Prescription instructions reviewed with patient as applicable. Potential red flag symptoms discussed with the patient. Reviewed appropriate action plan to take if red flag symptoms occur. Patient agreeable to treatment plan. Daisy Zuñiga APRN.HELIARC WELDER [address] [place] [address] documented in this encounterBluffton Hospital02-01-2024 Miscellaneous Notes* Telephone Encounter - Margo Mueller Ma - 09/07/2023 3:58 PM EST Last refilled 09/20/22 Pharmacy verified in [place]. Patient has been identified by name and date of : Yes Patient aware RX will be sent to pharmacy. No need to notify patient. Patient phones for refill(s): Requested Prescriptions Pending Prescriptions Disp Refills tamsulosin (FLOMAX) 0.4 mg [Pharmacy Med Name: Tamsulosin HCl 0.4MG CAPS] 28 capsule Sig: take 1 capsule by mouth at bedtime Date of last office visit : 12/24/2021 Date of next office visit : Visit date not found Please advise. Margo Mueller CMA documented in this encounterBluffton Hospital01-17-2024 Procedure [facility]01[facility]2024 Procedure [facility]12-14-2023 Miscellaneous Notes* Telephone Encounter - Ketty Lutz Ma - 07/20/2023 11:17 AM EST Pt notified, he has not made appt with [facility] but he will call them and schedule. Ketty Lutz Ma * Telephone Encounter - Jak Andrade - 07/14/2023 4:34 PM EST Results faxed to Dr. Stark's office. TC to pt, phone rings, no answer, unable to leave message. Jak Andrade * Telephone Encounter - Leeann Reyes APRN.CNP - 07/14/2023 4:15 PM EST Can please let patient know that kidney function is still decreased. Has he scheduled a follow-up appointment with nephrology? 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 Leeann Reyes APRN.CNP documented in this encounterBluffton Hospital12-08-2023 Miscellaneous Notes* Telephone Encounter - Terrie Telles LPN - 07/14/2023 11:04 AM EST Patient has been identified by name and date of : Pharmacy phones for refill(s): Requested Prescriptions Pending Prescriptions Disp Refills hydrALAZINE (APRESOLINE) 50 mg tablet 90 tablet 3 Sig: Take 1 tablet by mouth every 8 hours. traZODone (DESYREL) 50 mg tablet 30 tablet 5 Sig: Take 1 tablet by mouth daily at bedtime. clopidogrel (PLAVIX) 75 mg tablet 30 tablet 5 Sig: Take 1 tablet by mouth once daily. Date of last office visit in primary care: 05/29/2023 Date of next office visit in primary care: no future appt scheduled Last 2 Encounter Wt Readings: Date: Wt: 07/11/2023 71.7 kg (158 lb) 05/29/2023 68.5 kg (151 lb) Previous labs/tests for medication: Blood Pressure: BUN (mg/dL) Date Value 07/10/2023 49 04/26/2021 62 Sodium (mmol/L) Date Value 07/10/2023 140 04/26/2021 134 Last 1 Encounter BP Readings: Date: BP: 07/11/2023 169/81 Please advise. Thank you. Terrie Telles LPN. documented in this encounterBluffton Hospital12-05-2023 History of Present illness Narrative* Nini Freire DO - 07/11/2023 3:12 PM EST Patient referred by Leeann Reyes APRN.CNP for anemia. The impression and plan will be communicated by way of the shared electronic record or faxed under separate cover letter. HPI: The patient is a 67-year-old male with a past medical history significant for type 2 diabetes with polyneuropathy, paroxysmal SVT, pacemaker-ICD, hypertension, hypercholesterolemia, psoriasis, contact dermatitis, lumbar spondylosis, lumbar degenerative disc disease, low back pain, iron deficiency anemia,? DVT and CKD. Hospitalized at [facility] mid June for abdominal pain. Significant increase in serum Cr over baseline. Received hydration. Hemoglobin 8.2 g/dL on presentation 06/29. Serum creatinine was 3.35 mg/dL. Calcium was 8.4 mg/dL. Serum iron was 50 mcg/dL (reference range 65 to 175 mcg/dL). TIBC 210 mcg/dL. (Reference range 250 to 450 mcg/dL). Ferritin was 128 ng/mL. \Total serum protein was 6 g/dL. On EGD was found to have reflux esophagitis with no bleeding. There was a mild Schatzki's ring thatwas dilated. Medium size hiatal hernia. There was hematin (altered blood/zhwtdy-nducak-deel material) in the gastric body. Granular gastric mucosa that was biopsied. Granular mucosa in the duodenal bulb. There were oozing duodenal ulcers with pigmented material. Treated with argon plasma coagulation. On colonoscopy prep was poor. Moderate diverticulosis was observed in the rectosigmoid colon and sigmoid colon. There were five 1 to 2 mm polyps in the sigmoid colon removed using injection lift and hot snare. One 5 mm polyp in the transverse colon. Stool was observed in the rectum, rectosigmoid, sigmoid at the splenic flexure hepatic flexure and ascending colon as well as cecum. Blood transfusion was not administered. Also had CT of the abdomen pelvis on 06/29/2023. He had bilateral punctate nonobstructing renal stones. Cholelithiasis without CT evidence of acute cholecystitis. There is diverticulosis without CT evidence of acute diverticulitis. Normal appendix. Diffuse atherosclerosis. Degenerative changes. Endorses poor appetite. No reflux or nausea. Bowels have been moving. Stools formed. No black or bloody stools. Left foot drop with brace. Hand numbness bilaterally. 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 Dyslipidemia Embolism and thrombosis of unspecified site 04/25/2008 Essential hypertension, benign Family history of malignant neoplasm of gastrointestinal tract Non-proliferative diabetic retinopathy, mild, both eyes ([facility]) 10/11/2017 Non-proliferative diabetic retinopathy, moderate, both eyes ([facility]) 10/14/2019 Other specific developmental learning difficulties Pneumonia 07/07/2015 Dx at [facility] ER Psoriasis and similar disorders Pure hypercholesterolemia Pure hyperglyceridemia Right thalamic infarction (HCC) 02/18/2019 [facility] Stenosis of carotid artery Stroke (HCC) Tietze's disease Tinea unguium 12/01/2017 Type II or unspecified type diabetes mellitus with neurological manifestations, not stated as uncontrolled(250.60) PAST SURGICAL HISTORY Procedure Laterality Date COLONOSCOPY FLX DX W/COLLJ SPEC WHEN PFRMD 2017 repeat 3 years COLONOSCOPY SCREENING 06/22/2023 EGD W/O [facility] SPEC VARICIES INJ 06/22/2023 ESOPHAGOGASTRODUODENOSCOPY TRANSORAL DIAGNOSTIC 2017 EGD LAPAROSCOP GASTRIC BYPASS N/A NEUROPLASTY &/TRANSPOS MEDIAN NRV CARPAL TUNNE 05/08/2012 Carpal tunnel decomp right PACEMAKER 03/04/2019 PAST SURGICAL HISTORY OF EGD PAST SURGICAL HISTORY OF Colonsocopy ALLERGIES Allergen Reactions Lopid [Gemfibrozil] Diarrhea Current Outpatient Medications Medication Sig insulin lispro (HUMALOG KWIKPEN INSULIN) 100 unit/mL Inject 2 Units subcutaneously three times a day before meals. cholecalciferol, Vitamin D3, (VITAMIN D3) 1,250 mcg (50,000 unit) cap capsule Take 1 capsule twice per week for 12 weeks. Senna 8.6 mg tab Take 1 tablet by mouth twice daily. (Patient taking differently: Take 8.6 mg by mouth three times a day.) diclofenac (VOLTAREN) 1 % topical gel Apply 2 g to affected area four times daily. traZODone (DESYREL) 50 mg tablet Take 1 tablet by mouth daily at bedtime. clopidogrel (PLAVIX) 75 mg tablet Take 1 tablet by mouth once daily. amLODIPine (NORVASC) 10 mg tablet Take 1 tablet by mouth once daily. multivitamin (DAILY-YOUSUF) tablet Take 1 tablet by mouth once daily. tamsulosin (FLOMAX) 0.4 mg TAKE 1 CAPSULE BY MOUTH AT BEDTIME atorvastatin (LIPITOR) 80 mg tablet Take 1 tablet by mouth every morning. metoprolol succinate ER (TOPROL XL) 100 mg Take 1 tablet by mouth every morning. insulin glargine (LANTUS SOLOSTAR U-100 INSULIN) 100 unit/mL (3 mL) Inject 20 Units subcutaneously every morning. melatonin 3 mg tablet Take 1 tablet by mouth daily at bedtime. glucose (DEX4 GLUCOSE) 4 gram chewable tablet Take 4 tablets by mouth as needed. polyethylene glycol 3350 17 gram/dose powder Take 17 g by mouth once daily. Drink a mix of 1 scoop in 8oz of water/beverage once daily as needed for constipation. blood sugar diagnostic (BLOOD GLUCOSE TEST) test strip Test blood sugar(s) three times daily. Dx: Type 2 DM - Uncontrolled E11.65 Insulin: Yes hydrALAZINE (APRESOLINE) 50 mg tablet Take 1 tablet by mouth every 8 hours. Miscellaneous Medical Supply (BLOOD PRESSURE CUFF) 1 Each once daily. Blood Pressure Monitor 1 Each as directed. Diaper,Brief, Adult,Disposable (DEPEND UNDERWEAR FOR MEN -MD) 1 Each as needed. alcohol swabs (ALCOHOL PREP PADS) Apply 1 application to affected area once daily with insulin injection aspirin, enteric coated (ADULT LOW DOSE ASPIRIN) 81 mg EC tablet Take 1 tablet by mouth every morning. Insulin [place], Disposable, (BD ULTRA-FINE LUIS PEN NEEDLE) 32 gauge x 5/32 Use one needle daily for each insulin dose, 4 x's daily. Type 2 DM, insulin dependent. Lancets lancets Test blood sugar(s) one times daily. Dx: Type 2 DM - Uncontrolled E11.65 Insulin: Yes MEDICAL SUPPLY Hospital bed with rails. Blood-Glucose Meter 1 Device as directed. Lancing Device (LANCING DEVICE WITH LANCETS) [facility] [place] to check blood sugars as directed COMPOUNDED PRESCRIPTION Diabetic shoes: DIABETES MELLITUS- uncontrolled with neuropathy Syringe with Needle, Safety (BD INTEGRA) 3 mL 22 x 1 1/2 syrg Uses twice a month for testosterone injections Current Facility-Administered Medications Medication Dose Route Frequency perflutren lipid microspheres 1.3 mL in NaCl (PF) 0.9% 10 mL injection (DEFINITY) INTRAVENOUS DIRECTED PRN sodium chloride 0.9 % (flush) 10 mL (BD POSIFLUSH) 10 mL INTRAVENOUS DIRECTED PRN Social History Tobacco Use Smoking status: Former Types: Cigars Quit date: 1994 Years since quittin.9 Smokeless tobacco: Never Tobacco comments: quit 1994 Vaping Use Vaping Use: Never used Substance Use Topics Alcohol use: No Drug use: No 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 Family History Problem Relation Age of Onset Stroke Mother Hypertension Mother Colon Cancer Mother Heart Father [place] Diabetes Maternal Grandmother Mother in her 60s from lymph node cancer. He is not aware if she had a h/o colon cancer or not. ROS: Constitutional: No fever. No drenching night sweats. Neuro: Noted for headache and dizziness.. HEENT: No recent change in voice, vision or hearing. Resp: No cough, wheeze of hemoptysis. No shortness of breath at rest. Occasional DE ANDA. CVS: No exertional chest pain, PND or orthopnea. No extremity swelling/edema. GI: No dysphagia or odynophagia. : No dysuria or gross hematuria. No symptoms of bladder outlet obstruction. Endo: No hot flashes. No polyuria or polydipsia. No heat or cold intolerance. Musculoskeletal: No bone, back, joint and muscular pain. Derm: No current rash. No history of jaundice. No diffuse pruritis. Heme: No unusual bleeding and unexplained bruising. Psych: Normal mood. PHYSICAL EXAM: Vitals: Blood pressure 169/81, pulse 70, temperature 36.4 C (97.6 F), height 176 cm (5' 9.29), weight 71.7 kg (158 lb), SpO2 99%. Well-appearing and in no acute distress. EYES: Sclerae are anicteric bilaterally. LYMPHATIC: There is no palpable cervical or supraclavicular adenopathy. RESPIRATORY: Inspiratory breath sounds are of normal intensity in all patel. No rales, wheezes or rhonchi. CARDIOVASCULAR: Rhythm is regular. ABDOMEN: The abdomen is nondistended. No splenomegaly or hepatomegaly. No tenderness. Extremities: No swelling or edema. SKIN: No jaundice. LABS: Component Latest Ref Rng & Units 04/03/2023 07/10/2023 WBC 3.70 - 11.00 k/uL 7.91 7.26 RBC 4.20 - 6.00 m/uL 3.23 (L) 3.24 (L) Hemoglobin 13.0 - 17.0 g/dL 9.2 (L) 9.3 (L) Hematocrit 39.0 - 51.0 % 27.3 (L) 28.3 (L) MCV 80.0 - 100.0 fL 84.5 87.3 MCH 26.0 - 34.0 pg 28.5 28.7 MCHC 30.5 - 36.0 g/dL 33.7 32.9 RDW-CV 11.5 - 15.0 % 12.9 13.7 Platelet Count 150 - 400 k/uL 260 266 MPV 9.0 - 12.7 fL 9.7 9.6 Neut% % 67.8 62.2 Abs Neut (ANC) 1.45 - 7.50 k/uL 5.37 4.52 Lymph% % 23.8 27.3 Abs Lymph 1.00 - 4.00 k/uL 1.88 1.98 [place]% % 5.3 6.7 Abs [place] <0.87 k/uL 0.42 0.49 Eosin% % 1.9 2.5 Abs Eosin <0.46 k/uL 0.15 0.18 Baso% % 0.3 0.6 Abs Baso <0.11 k/uL <0.03 0.04 Immature Gran % % 0.9 0.7 IMMATURE GRANS (ABS) <0.10 k/uL 0.07 0.05 NRBC /100 WBC 0.0 0.0 Absolute nRBC <0.01 k/uL <0.01 <0.01 DTYPE Auto Auto Protein, Total 6.3 - 8.0 g/dL 5.8 (L) Albumin 3.9 - 4.9 g/dL 3.5 (L) Calcium 8.5 - 10.2 mg/dL 8.7 9.2 Bilirubin, Total 0.2 - 1.3 mg/dL 0.2 Alkaline Phosphatase 38 - 113 U/L 120 (H) AST 14 - 40 U/L 16 ALT 10 - 54 U/L 16 Glucose 74 - 99 mg/dL 156 (H) 169 (H) BUN 9 - 24 mg/dL 50 (H) 49 (H) Creatinine 0.73 - 1.22 mg/dL 3.09 (H) 2.80 (H) Sodium 136 - 144 mmol/L 137 140 Potassium 3.7 - 5.1 mmol/L 4.1 5.3 (H) Chloride 97 - 105 mmol/L 108 (H) 110 (H) CO2 22 - 30 mmol/L 17 (L) 19 (L) Anion Gap 9 - 18 mmol/L 12 11 eGFR >=60 mL/min/1.73m 22 (L) 24 (L) Iron 41 - 186 ug/dL 63 TIBC 232 - 386 ug/dL 243 Transferrin Saturation 15.0 - 57.0 % 25.9 Retic % 0.4 - 2.0 % 2.1 (H) Abs Retic 0.018 - 0.100 M/uL 0.069 Ferritin 30.3 - 565.7 ng/mL 202.0 Vitamin B12 232 - 1,245 pg/mL 945 Folate >4.7 ng/mL >20.0 Haptoglobin 31 - 238 mg/dL 147 ASSESSMENT/PLAN: (D64.9) Anemia, unspecified type (primary encounter diagnosis) (N18.4) CKD (chronic kidney disease), stage IV (HCC) (N18.4, D63.1) 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) Assessment: -The patient is a 67-year-old male with past medical history as outlined above. Recently hospitalized for abdominal pain. Underwent EGD and colonoscopy for anemia. Found to have oozing duodenal ulcers treated with argon laser. Colonoscopy poor prep. Needs repeated. Iron low for degree of renal insuf ficiency. -Suspect anemia secondary to endocrine kidney dysfunction. -Qualifies for parenteral iron replacement particularly since on PPI for history of gastric ulceration. Unlikely that he would absorb any significant amount of oral iron. -Discussed potential workup for other contributing etiologies based on results of lab work ordered today. Plan: -Lab work to rule out low-grade hemolysis. -Check serum monoclonal protein. -Potential need for parenteral iron since ferritin under 500 and iron saturation less than 30% in the setting of chronic kidney disease. -Follow-up with PCP's office for scheduling repeat colonoscopy. I spent a total of 45 minutes on the date of the service which included preparing to see the patient, reviewing records in the electronic system at [facility], [id number] patient care, completing clinicaldocumentation, obtaining and/or reviewing separately obtained history, performing a medically appropriate examination, counseling and educating the patient/family/caregiver, ordering medications, tests, or procedures, communicating with other HCPs (not separately reported), and communicating results to the patient/family/caregiver. Nini Freire DO documented in this encounterBluffton Hospital12-04-2023 Instructions* Patient Instructions* Leaenn Reyes APRN.HELIARC WELDER - 07/10/2023 1:57 PM EST Start the miralax. You can use it twice a day until you move bowels. Get the labwork done. Follow-up with hematology tomorrow, as scheduled. Schedule back with nephrology -- Dr. Stark. documented in this encounterBluffton Hospital12-04-2023 History of Present illness Narrative* Leeann Reeys APRN.HELIARC WELDER - 07/10/2023 1:42 PM EST This is a 67 year old male who presents today with: Patient presents with: Recheck: 6 week follow up HISTORY OF PRESENT ILLNESS: Lou Julien is a 67 year old male. Patient presents with: Recheck: 6 week follow up Pt presents today for 6 week folllow-up. This is a patient of Dr. Manrique. New to this provider. Refers that he wasn't feeling good and his stomach hurt. Went to the ER. Refers he went to the ER and found that his kidneys were bad. Refers that he did see Dr. Stark once. States he does not have an appt to go back. When he went to the emergency room on 06/29/2023, he had complained of right lower quad abdominal pain for the last 5 hours. He reported that he had not had a bowel movement for the past week. CBC showed no leukocytosis and baseline anemia. No thrombocytopenia. BMP showed no significant electrolyte disturbance. Was noted to have VENICE on CKD. Lipase was within normal limits. LFT showed no evidence of hepatobiliary pathology. CT scan showed no evidence of acute intra-abdominal surgical pathology. UA showed no evidence of urinary inflammation/UTI. Per the ER records, they wanted to admit patient for IV hydration and close kidney monitoring giventhe VENICE in the setting of CKD. Patient did not want to stay in the hospital over the holiday. He reported that he would call his primary care provider's office to get outpatient blood work. He was going to take increased p.o. fluids and return if any worsening symptoms. Refers that his abdominal pain is improved. Still with constipation. Refers that he is taking a stool softener, but is still not moving his bowels. States last BM was a week ago. Appetite has been okay. No n/v. He denies any CP/SOB. No palpitations. Occ headache. No dizziness. No n/v. No hematochezia/melena. Denies urinary symptoms. No swelling. He did have a recent colonoscopy/EGD which showed moderate diverticulosis in the rectosigmoid colonand in the sigmoid colon. It also showed several polyps. The bowel prep was poor, so it was recommended that repeat colonoscopy could be completed in 6 months. EGD showed LA grade a reflux esophagitis with no bleeding. Moderate Schatzki ring. Medium sized hiatal hernia. Hematin in the gastric body. Granular gastric mucosa. Granular mucosa in the duodenal bulb. Oozing duodenal ulcers with pigmented material treated with argon plasma coagulation. 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 Dyslipidemia Essential hypertension, benign Family history of malignant neoplasm of gastrointestinal tract Non-proliferative diabetic retinopathy, mild, both eyes ([facility]) 10/11/2017 Non-proliferative diabetic retinopathy, moderate, both eyes ([facility]) 10/14/2019 Other specific developmental learning difficulties Pneumonia 07/07/15 Dx at [facility] ER Psoriasis and similar disorders Pure hypercholesterolemia Pure hyperglyceridemia Right thalamic infarction (HCC) 02/18/2019 [facility] Stenosis of carotid artery Stroke ([facility]) Tietze's disease Tinea unguium 12/01/2017 Type II or unspecified type diabetes mellitus with neurological manifestations, not stated as uncontrolled(250.60) PAST SURGICAL HISTORY Procedure Laterality Date COLONOSCOPY FLX DX W/COLLJ SPEC WHEN PFRMD 2017 repeat 3 years ESOPHAGOGASTRODUODENOSCOPY TRANSORAL DIAGNOSTIC 2017 EGD LAPAROSCOP GASTRIC BYPASS N/A NEUROPLASTY &/TRANSPOS MEDIAN NRV CARPAL TUNNE 05/08/12 Carpal tunnel decomp right PACEMAKER 03/04/2019 PAST SURGICAL HISTORY OF EGD PAST SURGICAL HISTORY OF Colonsocopy ALLERGIES Lopid [Gemfibrozil] MEDICATIONS Current Outpatient Medications Medication Sig blood sugar diagnostic (BLOOD GLUCOSE TEST) test strip Test blood sugar(s) three times daily. Dx: Type 2 DM - Uncontrolled E11.65 Insulin: Yes insulin lispro (HUMALOG KWIKPEN INSULIN) 100 unit/mL Inject 2 Units subcutaneously three times a day before meals. cholecalciferol, Vitamin D3, (VITAMIN D3) 1,250 mcg (50,000 unit) cap capsule Take 1 capsule twice per week for 12 weeks. Senna 8.6 mg tab Take 1 tablet by mouth twice daily. hydrALAZINE (APRESOLINE) 50 mg tablet Take 1 tablet by mouth every 8 hours. diclofenac (VOLTAREN) 1 % topical gel Apply 2 g to affected area four times daily. Miscellaneous Medical Supply (BLOOD PRESSURE CUFF) 1 Each once daily. traZODone (DESYREL) 50 mg tablet Take 1 tablet by mouth daily at bedtime. clopidogrel (PLAVIX) 75 mg tablet Take 1 tablet by mouth once daily. Blood Pressure Monitor 1 Each as directed. amLODIPine (NORVASC) 10 mg tablet Take 1 tablet by mouth once daily. multivitamin (DAILY-YOUSUF) tablet Take 1 tablet by mouth once daily. Diaper,Brief, Adult,Disposable (DEPEND UNDERWEAR FOR MEN -MD) 1 Each as needed. alcohol swabs (ALCOHOL PREP PADS) Apply 1 application to affected area once daily with insulin injection aspirin, enteric coated (ADULT LOW DOSE ASPIRIN) 81 mg EC tablet Take 1 tablet by mouth every morning. tamsulosin (FLOMAX) 0.4 mg TAKE 1 CAPSULE BY MOUTH AT BEDTIME atorvastatin (LIPITOR) 80 mg tablet Take 1 tablet by mouth every morning. metoprolol succinate ER (TOPROL XL) 100 mg Take 1 tablet by mouth every morning. insulin glargine (LANTUS SOLOSTAR U-100 INSULIN) 100 unit/mL (3 mL) Inject 20 Units subcutaneously every morning. Insulin [place], Disposable, (BD ULTRA-FINE LUIS PEN NEEDLE) 32 gauge x Use one needle daily for each insulin dose, 4 x's daily. Type 2 DM, insulin dependent. Lancets lancets Test blood sugar(s) one times daily. Dx: Type 2 DM - Uncontrolled E11.65 Insulin: Yes MEDICAL SUPPLY Hospital bed with rails. Blood-Glucose Meter 1 Device as directed. melatonin 3 mg tablet Take 1 tablet by mouth daily at bedtime. glucose (DEX4 GLUCOSE) 4 gram chewable tablet Take 4 tablets by mouth as needed. polyethylene glycol 3350 (MIRALAX, GLYCOLAX) 17 gram/dose powder Take 17 g by mouth once daily. Drink a mix of 1 scoop in 8oz of water/beverage once daily as needed for constipation. Lancing Device (LANCING DEVICE WITH LANCETS) [facility] Use to check blood sugars as directed COMPOUNDED PRESCRIPTION Diabetic shoes: DIABETES MELLITUS- uncontrolled with neuropathy Syringe with Needle, Safety (BD INTEGRA) 3 mL 22 x 1 1/2 syrg Uses twice a month for testosterone injections Current Facility-Administered Medications Medication Dose Route Frequency perflutren lipid microspheres 1.3 mL in NaCl (PF) 0.9% 10 mL injection (DEFINITY) INTRAVENOUS DIRECTED PRN sodium chloride 0.9 % (flush) 10 mL (BD POSIFLUSH) 10 mL INTRAVENOUS DIRECTED PRN FAMILY HISTORY Problem Relation Age of Onset Stroke Mother Hypertension Mother Colon Cancer Mother Heart Father IA No Known Problems Sister Cancer Sister Social History Tobacco Use Smoking status: Former Types: Cigars Quit date: 1994 Years since quittin.9 Smokeless tobacco: Never Tobacco comments: quit 1994 Vaping Use Vaping Use: Never used Substance Use Topics Alcohol use: No Drug use: No EXAM: BP 138/70 Pulse 67 Resp 16 SpO2 96% PHYSICAL EXAM: General Appearance: Well appearing, alert, in no acute distress, well-hydrated, well nourished.. Skin: Skin color, texture, turgor normal, no suspicious rashes or lesions. Head: Normocephalic, no masses, lesions, tenderness or abnormalities. Eyes: Anicteric sclera. Extraocular movements are intact. Lungs: Lungs clear to auscultation. No wheezing, rhonchi, rales.. Heart: RRR without murmur, gallop, or rubs. No ectopy. Abdomen: Abdomen soft, non-tender. Bowel sounds normal. No masses, organomegaly. Extremities: No deformities, edema, skin discoloration, clubbing or cyanosis. Good capillary refill. Neurologic: Gait normal. ASSESSMENT/PLAN: 1. Chronic constipation - ICD9: 564.00, ICD10: K59.09 (primary diagnosis) Continues with constipation. Start miralax -- discussed that he can take twice daily until he stools. - POLYETHYLENE GLYCOL 3350 17 GRAM/DOSE ORAL POWDER If no improvement, please let provider know. If he gets any severe symptoms, he should return to the emergency room. 2. VENICE (acute kidney injury) (HCC) - ICD9: 584.9, ICD10: N17.[address] Stark and had further testing and ultrasound done. It does not look like he ever had follow-up. Encouraged to follow-up with nephrology. We will go ahead and repeat BMP today to evaluate kidney function. - BASIC METABOLIC PNL 3. Encounter for immunization - ICD9: V03.89, ICD10: Z23 - INFLUENZA VACCINE, PRSV FREE, AGE 65+ YR, HIGH DOSE, QUADRIVALENT (FLUZONE HIGH-DOSE) 4. Anemia, unspecified type - ICD9: 285.9, ICD10: D64.9 Follow-up with hematology as scheduled. Discussed treatment plan and patient voices understanding. Patient's questions answered appropriately. Medications and potential side effects were discussed and patient voices understanding. Return to the office as scheduled or as needed for worsening/no improvement. Leeann Reyes APRN.HELIARC WELDER documented in this encounterBluffton Hospital11-23-2023 Discharge summary Author Leonel Horton [facility] June 29, 2023 4:46pm Note Date/Time June 29, 2023 2:10pm [facility] Medical Records Department [address] [place] [id number] Emergency Department Summary 06/29/23 MR#: [id number] Acct: [id number] Name: LOU JULIEN Rep #:[id number] : 1955 67 From: Leonel Baez PCP: Dr. Vera Manrique MD Status:REG E R Location: ED HPI History of Present Illness Chief Complaint: Abd Pain [facility] Medical History Ambulates with cane Cardiology follow-up encounter Complete heart block (02/2019) CVA (cerebral vascular accident) (02/2019) Diabetes mellitus Dietary restriction DVT (deep venous thrombosis) Essential (primary) hypertension Former smoker High cholesterol History of echocardiogram History of edema History of pain when walking History of renal disease History of stress test HLD (hyperlipidemia) Insulin dependent diabetes mellitus Irregular heart beat Leg cramps Need for home health care Pacemaker Paroxysmal supraventricular tachycardia (06/2017) Sick sinus syndrome Sinus pause Stroke/cerebrovascular accident Syncope Tachyarrhythmia Wears glasses Home Medications atorvastatin 80 mg tablet 80 mg PO DAILY cholesterol 03/04/19 [History Last Taken 03/11/22] multivitamin (Daily-Yousuf tablet) 1 tab PO DAILY SUPPLEMENT 03/11/22 [History Last Taken 03/11/22] ascorbic acid (vitamin C) 500 mg tablet (Vitamin C) 500 mg PO BID 30 days #60 tabs 03/22/22 [Rx Last Taken Unknown] ferrous sulfate 325 mg (65 mg iron) tablet 325 mg PO BID 30 days #60 tabs 03/22/22 [Rx Last Taken Unknown] clopidogrel 75 mg tablet 75 mg PO DAILY 03/14/23 [History Last Taken 06/21/23] aspirin 81 mg tablet,delayed release 81 mg PO DAILY 04/07/23 [History Last Taken Unknown] insulin glargine 100 unit/mL (3 mL) subcutaneous pen (Lantus Solostar U-100 Insulin) 80 unit subcut .QAM DIABETES 04/07/23 [History Last Taken Unknown] trazodone 50 mg tablet 50 mg PO QHS 04/07/23 [History Last Taken Unknown] insulin lispro 100 unit/mL subcutaneous pen 2 unit subcut TID 05/25/23 [History Last Taken Unknown] hydralazine 50 mg tablet 80 mg PO DAILY 06/29/23 [History Last Taken Unknown] Allergy/AdvReac Type Severity Reaction Status Date / Time metformin [From Glucophage] AdvReac Diarrhea Verified 06/29/23 13:54 Family History Mother Cancer Father Heart disease Hypertension Myocardial infarction Surgical History History of carpal tunnel release History of hand surgery History of permanent cardiac pacemaker placement (03/05/19) Social History household members: none Smoking Status: Former smoker Smokeless tobacco user: other alcohol intake: never substance use type: does not use EXAM Physical Exam Const Vital Signs: 06/29/23 13:55 Temperature 98.4 F Temperature Source Temporal Pulse Rate 70 Respiratory Rate 18 Blood Pressure 166/67 H Blood Pressure Mean 100 Pulse Ox 98 Oxygen Delivery Method Room Air MDM MDM MDM Narrative Medical decision making narrative: HISTORY OF PRESENT ILLNESS: 67-year-old male here with right lower quad abdominal pain for the last 5 hours. He states he has not had a bowel movement for the past week. Denies history abdominal surgery. Denies any fever, vomiting. Denies any trouble urinating. Locates the pain to the right lower quadrant REVIEW OF SYSTEMS: Pertinent positives: Abdominal pain, constipation Pertinent negatives: Chest pain, shortness of breath, urinary complaints PHYSICAL EXAM: Nursing triage notes reviewed, Vital signs reviewed Constitutional: please see mdm HENT: MMM Eyes: Pupils equal round and reactive to light, Extraocular muscles intact Neck: No stridor, no JVD, full neck ROM Lungs: Clear to auscultation, No wheezing or rales. No increased work of breathing, no conversational dyspnea, no accessory muscle use, no nasal flaring. No respiratory distress noted Heart: Regular rate and rhythm, No murmurs, No rubs and No gallops, 2+ distal pulses (radial, femoral, posterior tibial) in all extremities Abdomen: Soft, mild right lower quadrant TTP but no rigidity, rebound or guarding, no obvious peritoneal signs, no palpable pulsatile abdominal masses, no auscultated abdominal bruit : No CVAT Extremities: No edema Neuro: No focal neurological deficits, cranial nerves II through XII intact, 5/5strength in all extremities. Intact sensation to light touch in all extremities,2+ reflexes bilateral patella tendons. Normal gait. No ataxia. Skin: No rash or lesions noted MEDICAL DECISION MAKING: Chief Complaint: Abdominal pain External records reviewed: Imaging reviewed: CT scan of the abdomen pelvis from 2018 shows left renal cyst, nonobstructing calculi, no evidence of acute intra- abdominal disease Factors affecting care: Complete heart block, sick sinus syndrome, status post pacemaker, hypertension, hyperlipidemia, CKD, type 2 diabetes Social determinants of health former smoker History obtained from others: none Consults: none [facility] Narrative: Patient was hemodynamically stable, afebrile, nontoxic-appearing. [place] exam was benign not peritonitic, not distended. He had tenderness with right lower quadrant I considered the following differential diagnosis: Appendicitis, diverticulitis,nephrolithiasis, pyelonephritis, AAA I obtained a broad lab and imaging workup to further elucidate the etiology patient complaints. Treated patient with IV fluids he is made n.p.o. is given narcotic pain medicine and nausea medicine. I obtained a broad lab and imaging workup to further elucidate etiology patient complaints. Obtain CT scan given patient advanced age, right lower quadrant tenderness and concern for appendicitis, nephrolithiasis, AAA or perforation. ALL IMAGES (IF OBTAINED) HAVE BEEN PERSONALLY REVIEWED AND INTERPRETED BY MYSELF. CBC with no leukocytosis to suggest systemic inflammation, baseline anemia, no thrombocytopenia BMP with no significant electrolyte disturbance, noted VENICE on CKD Lipase is wnl indicating no pancreatic inflammation. LFTs show no evidence of hepatobiliary pathology. CT scan of the abdomen pelvis shows no evidence of acute intra-abdominal surgical pathology. Urinalysis shows no evidence of urinary inflammation suggestive of UTI The synthesis of the patient's labs, images, physical exam, history and vital signs suggestive of dehydration and constipation. There is no signs of pyelonephritis, nephrolithiasis, acute surgical pathology in the abdomen or pelvis I discussed admission with the patient. I stated he would be admitted for IV hydration and close kidney monitoring given VENICE in the setting of CKD. Patient reiterated he was not having any nausea or vomiting and he was constipated not having any diarrhea. He stated he did not want to stay in the hospital during the holiday. He stated he would be able to call his primary care doctor's office tomorrow to discuss getting outpatient blood work done by early next week. He stated he had adequate transportation and a good working relationship with his primary care physician to achieve this result. He stated he would go home and take an increased p.o. fluids. He promised to return if his symptoms changed or worsened. He was alert and oriented x 3 and had capacity to make his own medical decision and chose to be discharged home at this time and lieu of being admitted for hydration and monitoring. Patient was told to take in more oral fluids in the form of Pedialyte body armor or Gatorade. Told to begin a bowel regimen. He is given strict return precautionsfor return The patient and/or family, caregivers express understanding. The patient and/orfamily, caregivers agrees with the plan. Shared decision making: I will have a discussion with the patient and or visitors regarding risk/benefits of further testing or admission. They will be made aware of of the risk/benefits inherent in this decision they will be given the opportunity to voice understanding. Total critical care time today provided was at least 0 minutes. This excludes separately billable procedures. Critical care time (if documented) is secondary to the patient having high probability of clinically significant/life threatening deterioration in the patient's condition which required my urgent intervention. Impression: 1. Abdominal pain 2. Constipation 3. Dehydration 4. VENICE on CKD Dispo: Discharge home Lab Data Labs: Laboratory Results - last 24 hr 06/29/23 06/29/23 14:05 15:38 WBC 7.4 RBC 2.94 L Hgb 8.2 L Hct 25.3 L MCV 86.1 MCH 27.9 MCHC 32.4 RDW Std Deviation 41.2 RDW Coeff of Harry 13.2 Plt Count 227 MPV 9.4 Immature Gran % (Auto) 1.500 H Neut % (Auto) 64.9 Lymph % (Auto) 25.1 [place] % (Auto) 5.8 Eos % (Auto) 2.3 Baso % (Auto) 0.4 Absolute Neuts (auto) 4.8 Absolute Lymphs (auto) 1.86 Nucleated RBC % 0 Sodium 140 Potassium 3.9 Chloride 113 H Carbon Dioxide 20.0 L Anion Gap 7 BUN 64 H Creatinine 3.35 H Estim Creat Clear Calc 21.80 Est GFR (MDRD) Af Amer 24 L Est GFR (MDRD) Non-Af 20 L BUN/Creatinine Ratio 19.1 Glucose 161 H Calcium 8.4 L Total Bilirubin 0.20 Direct Bilirubin 0.05 AST 15 ALT 22 Alkaline Phosphatase 90 Total Protein 6.0 L Albumin 3.0 L Globulin 3.0 Lipase 24 Urine Color Yellow Urine Clarity Clear Urine pH 5.0 Ur Specific [place] 1.015 Urine Protein 500 H Urine Glucose (UA) 50 H Urine Ketones Negative Urine Occult Blood Negative Urine Nitrite Negative Urine Bilirubin Negative Urine Urobilinogen Normal Ur Leukocyte Esterase Negative Urine RBC 0 SEEN Urine WBC 0-5 SEEN Ur Squamous Epith Cells 0-5 SEEN Urine Bacteria 0 SEEN Urine Mucus 0 SEEN Radiography Diagnostic Testing: Clinical Impression(s) from Imaging Studies Abdomen/Pelvis CT 06/29/23 14:17 IMPRESSION: Bilateral punctate nonobstructing renal stones. Cholelithiasis, no CT evidence of acute cholecystitis Diverticulosis, no CT evidence of acute diverticulitis Normal appendix visualized Diffuse atherosclerosis Degenerative bony changes Electronically Signed: Mitchell Neves MD at 15:31 EST Reading Location ID and State: [facility] / [place] , Service support , Discharge Plan Triage Chief Complaint: Abd Pain ED Provider: Leonel Horton Dx/Rx/DC Orders Instructions: Dehydration, ED Constipation (Adult), ED Abdominal Pain Unkn Cause Male... Prescriptions: No Action clopidogrel 75 mg tablet 75 mg PO DAILY atorvastatin 80 MG tablet 80 mg PO DAILY multivitamin [Daily-Yousuf] Tablet 1 tab PO DAILY ferrous sulfate 325 mg (65 mg iron) tablet 325 mg PO BID 30 Days Qty: 60 0RF ascorbic acid (vitamin C) [Vitamin C] 500 mg tablet 500 mg PO BID 30 Days Qty: 60 0RF insulin glargine [Lantus Solostar U-100 Insulin] 100 unit/mL (3 mL) insulin pen 80 unit SUBCUT .QAM aspirin 81 mg tablet,delayed release (DR/EC) 81 mg PO DAILY trazodone 50 mg tablet 50 mg PO QHS insulin lispro 100 unit/mL insulin pen 2 unit SUBCUT TID hydralazine 50 mg Tablet 80 mg PO DAILY Primary Care Provider: Vera Manrique Referrals: Vera Manrique MD [Primary Care Provider] - Activity Restrictions/Additional Instructions: Thank you for trusting us with your care today! Please take Tylenol (2 pills, 650 mg), ibuprofen (2 pills, 400 mg) every 6 hoursas needed for pain and fever control. Please go to a local pharmacy or drugstore and obtain MiraLAX, senna and Colace. Please begin taking each of these medicines daily until your desired consistency bowel movement is achieved. Please drink increased fluids by mouth. I recommend taking Pedialyte, body armor or Gatorade for rehydration. Please return if develop any nausea or vomiting or you are unable to take fluidsby mouth. Please call your primary care doctor's office tomorrow to obtain an outpatient order to measure your kidney function. Please return to the emergency department if your symptoms change or worsen. Specifically if you develop nausea, vomiting, worsening abdominal pain, if you lose consciousness or if your symptoms change or worsen in any way. Please follow with your primary care physician for further outpatient evaluationand management. Disposition Disposition: Home, Self Care What to do if you have Problems For any increased pain, shortness of breath, bleeding, nausea or vomiting, chestpain, or any unexpected problems, contact your Primary Care Provider. Call [facility] ([phone]) or report to the closest Emergency Room. Call 911 if necessary. 06/29/23 1646 <Electronically signed by Leonel Horton DO> Cosigner Signature (if applicable): CC: Dr. Vera Manrique MD ~ Signed [facility] Work Phone: 1(189) 344-567711-17-2023 Miscellaneous Notes* Telephone Encounter - Rocky Argueta RN - 06/23/2023 1:31 PM EST Let Pt know his test strips we sent to pharmacy. * Telephone Encounter - Caitlyn Key LPN - 06/23/2023 10:12 AM EST Last office visit: 05/29/23 Next appointment scheduled: 07/10/23 * Telephone Encounter - Santa Rudolph - 06/23/2023 10:06 AM EST Lou Julien is calling Vera Manrique MD today to request Refill Request. Patient is calling to ask for a refill of his test strips. Prescription is written for once a day and patient is testing 3 times daily. Please review and rewrite order as appropriate. Patient has been identified by name and birthdate. Duration of symptoms: N/A Person calling: self Call patient at: at home [phone] (home) [phone] (cell) Was an appointment scheduled: Closing statement: Santa Hayes documented in this encounterBluffton Hospital11-16-2023 History and physical note Author Wilton Friend [facility] June 22, 2023 11:29am Note Date/Time June 22, 2023 11:29am [facility] Medical Records Department [address] [place] [address] [place] [address] History & Physical Exam 06/22/238 MR#: [id number] Acct: [id number] Name: LOU JULIEN Rep #:[id number] : 1955 67 From: Wilton Friend DO PCP: Dr. Vera Manrique MD Status:REG S DE Location: [place] [address] History and Physical Date of Admission: 06/22/23 67 M who presents to the office today for follow up. *BGI established 06.15.22 for management of constipation with one spontaneous VM every 1-2 weeks with incomplete evacuation without pain or bloating.?Start lactulose? ? [facility] ED .03.29 with N/V and hyperglycemia with BS of 600 the day prior, but has not been taking Victoza as he thought it was . Glucose H531. Treated withfluids and glucose correction. Discharged with Reglan for nausea management.?US RUQ .03.29?hepatic measurement 16.8cm with normal echogenicity; diffuse pancreatic atrophy with normal echogenicity.? ? Pt reports no changes since last visit. States he takes ferrous sulfate once a day for his anemia. Has not gotten labs drawn. Denies dizziness or weakness. SOBon exertion. Still has constipation and LLQ pain that is relieved by BM. Has 1 incomplete BM every other day. Did not parts picker Lactulose at last visit. Does notremember that we sent it in for him. Does not take anything OTC for bowels. Denied blood or dark colored stool. Also has not established with nephrology forchronic CKD. ROS Const Constitutional: Positive for headache(s); No fatigue ENT ENT: Positive for headache(s); No difficulty swallowing Gastro GI: No abdominal pain, belching, bloating, change in bowel habits, change in stool character, coffee ground emesis, constipation, cramping, diarrhea, heartburn, difficulty swallowing, feeling full early, excessive flatus, incontinent of stools, Vomiting blood/hematemesis, Blood in stool, loose stools,Black,tarry stools, nausea/dyspepsia, pain with swallowing, vomiting or other Musc Musculoskeletal: Positive for leg pain at night; No joint pain Skin Skin: No yellowing of the eye or itchy eyes Neuro Neurology: Positive for headache(s) Psych Psychiatric: No anxiety and No depression Endo Endocrine: No fatigue Aller/Imm Allergy/Immunologic: No itchy eyes Calderon/Lymp Hematologic/Lymphatic: No easy bleeding or easy bruising Exam Const General: cooperative and comfortable Nutritional Appearance: average body habitus and well nourished [facility] Head: normal to inspection Ears: hearing grossly normal bilaterally Nose: external nose normal Face and sinus: normal facial exam Mouth: oral mucosae normal Throat: posterior oropharynx normal Eyes General: appearance normal, both eyes and all related structures Neck Neck: normal visual inspection Chest Chest palpation & inspection: normal inspection of the chest and normal palpation of entire chest wall Resp Effort & Inspection: normal respiratory effort Auscultation: Bilateral: Clear to Auscultation Cardio Palpation: normal PMI Rate: regular rate Rhythm: regular rhythm GI Inspection: normal to inspection Auscultation: normal bowel sounds Percussion: normal to percussion Palpation: no hepatosplenomegaly Skin General: no rashes or lesions noted Neuro General: patient alert Extrem General: normal to inspection Psych Affect: normal affect Quality Reporting Tobacco Screening ([facility]) Smoking Status: Former smoker Assessment and Plan Assessment and Plan (1) Anemia: Status: Chronic Qualifiers: Anemia type: iron deficiency Plan: Iron deficiency anemia from an unknown cause. 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 Patient says that he does not see a concrete block maker so we will need to refer him to concrete block maker. We will perform a capsule endoscopy to see if he hasany signs of peptic ulcer disease, angiodysplasia secondary to chronic kidney disease, telangiectasia. He may also need to be started on iron therapy. Iron studies including CBC, reticulocyte count, LDH, haptoglobin, ferritin, TIBC, saturation. (2) Constipation: Status: Chronic Qualifiers: Constipation type: slow transit constipation Qualified Code(s): K59.01 - Slow transit constipation Plan: For his constipation lactulose therapy. I explained to him that Lactulose may cause his blood sugar to increase. He says that he had egd and colonoscopy in the past.. I have examined the patient and the H&P has been reviewed. There are no clinicalchanges since date of exam. 06/22/23 1129 <Electronically signed by Wilton Friend DO> Cosigner Signature (if applicable): CC: Dr. Vera Manrique MD; Wilton Friend, DO~ Signed [facility] Work Phone: 1(383) 148-957711-16-2023 [facility]-16-2023 Procedure note [facility]11-16-2023 Procedure [facility] 05-23-2023 Miscellaneous Notes* Telephone Encounter - Terrie Tleles LPN - 05/23/2023 8:51 AM EDT Patient has been identified by name and date of : Pharmacy phones for refill(s): Requested Prescriptions Pending Prescriptions Disp Refills cholecalciferol, Vitamin D3, (VITAMIN D3) 1,250 mcg (50,000 unit) cap capsule 24 capsule 0 Sig: Take 1 capsule twice per week for 12 weeks. Date of last office visit in primary care: 05/02/2023 Date of next office visit in primary care: 05/29/2023 Last 2 Encounter Wt Readings: Date: Wt: 05/02/2023 70.8 kg (156 lb) 04/03/2023 72.6 kg (160 lb) Previous labs/tests for medication: Not applicable Please advise. Thank you. Terrie Telles LPN. documented in this encounterBluffton Hospital09-19-2023 Miscellaneous Notes* Telephone Encounter - Rocky Argueta RN - 04/25/2023 3:18 PM EDT Patient has been identified by name and date of : Yes, Provider Dr Manrique Date 04/25/23 Time 1519. Pharmacy phones for refill(s): Requested Prescriptions Pending Prescriptions Disp Refills Senna 8.6 mg tab 120 tablet 3 Sig: Take 1 tablet by mouth twice daily. Date of last office visit in primary care: 04/03/23 Future visit:05/02/23 Last 2 Encounter Wt Readings: Date: Wt: 04/03/2023 72.6 kg (160 lb) 03/13/2023 74.4 kg (164 lb) Previous labs/tests for medication: Blood Pressure: BUN (mg/dL) Date Value 04/03/2023 50 04/26/2021 62 Sodium (mmol/L) Date Value 04/03/2023 137 04/26/2021 134 Last 1 Encounter BP Readings: Date: BP: 04/03/2023 146/64 Liver Function: ALT (U/L) Date Value 04/03/2023 16 10/10/2019 12 AST (U/L) Date Value 04/03/2023 16 10/10/2019 16 Please advise. Thank you. Rocky Argueta, RN documented in this encounterBluffton Hospital08-28-2023 Instructions* Patient Instructions* Toya Smith PA-C - 04/03/2023 1:07 PM EDT 1) Discuss with kidney doctor if they feel erytropioetin would be necessary given new onset anemia-ask if they have an opinion regarding being on the two blood thinners (Plavix and aspirin) 2) Ask Dr Friend if any active bleeding on colonoscopy that you will have in 2 weeks documented in this encounterBluffton Hospital08-28-2023 History of Present illness Narrative* Toya Smith PA-C - 04/03/2023 12:43 PM EDT CC: Patient presents with: Follow Up: 2 week follow up-labs and rib pain HPI Lou Julien is a 67 year old male who presents today for 2 weeks f/u labs and rib pain. Last visitwas on 03/13/23. Feeling much improved since prior visit. Rib pain is 100% better now. In regards to BP, no changes were made to BP regimen at recent cardio visit. Reviewed Dr. Harris's note from 03/14/23, who states patient is currently on both ASA and Plavix- wonders if this is necessary given the downward trend of patient's Hgb (used to be between 11-12, most recently has been above 8) Pt is unsure if he ever had a neurologist following CVA in 2019. Patient reports that his sister scheduled renal appt-- has this 04/11 at 9:[address] Stark. Will be seeing Dr. Javier in 2 weeks to have colonoscopy performed due to the anemia (possibly 03/11 as well)- sisterSuki reports she will be receiving the info in the mail today. He's not sure if he is taking vitamin D, as he only takes what his aide puts in his pill packs. It appears as though this was dispensed on 03/14. The 10-year ASCVD risk score (Brittany FONTENOT, et al., 2019) is: 37.9% Values used to calculate the score: Age: 67 years Sex: Male Is Non- : No Diabetic: Yes Tobacco smoker: No Systolic Blood Pressure: 146 mmHg Is BP treated: Yes HDL Cholesterol: 29 mg/dL Total Cholesterol: 167 mg/dL REVIEW OF SYSTEMS See HPI All other systems negative. 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 Dyslipidemia Essential hypertension, benign Family history of malignant neoplasm of gastrointestinal tract Non-proliferative diabetic retinopathy, mild, both eyes (HCC) 10/11/2017 Non-proliferative diabetic retinopathy, moderate, both eyes (HCC) 10/14/2019 Other specific developmental learning difficulties Pneumonia 07/07/15 Dx at [facility] ER Psoriasis and similar disorders Pure hypercholesterolemia Pure hyperglyceridemia Right thalamic infarction (HCC) 02/18/2019 [facility] Stenosis of carotid artery Stroke ([facility]) Tietze's disease Tinea unguium 12/01/2017 Type II or unspecified type diabetes mellitus with neurological manifestations, not stated as uncontrolled(250.60) PAST SURGICAL HISTORY Procedure Laterality Date COLONOSCOPY FLX DX W/COLLJ SPEC WHEN PFRMD 2017 repeat 3 years ESOPHAGOGASTRODUODENOSCOPY TRANSORAL DIAGNOSTIC 2017 EGD LAPAROSCOP GASTRIC BYPASS N/A NEUROPLASTY &/TRANSPOS MEDIAN NRV CARPAL TUNNE 05/08/12 Carpal tunnel decomp right PACEMAKER 03/04/2019 PAST SURGICAL HISTORY OF EGD PAST SURGICAL HISTORY OF Colonsocopy ALLERGIES Lopid [Gemfibrozil] MEDICATIONS hydrALAZINE (APRESOLINE) 50 mg tablet^Take 1 tablet by mouth every 8 hours.^Disp: 90 tablet^Rfl: 3 diclofenac (VOLTAREN) 1 % topical gel^Apply 2 g to affected area four times daily.^Disp: 100 g^Rfl:1 cholecalciferol, Vitamin D3, (VITAMIN D3) 1,250 mcg (50,000 unit) cap capsule^Take 1 capsule twice per week for 12 weeks.^Disp: 24 capsule^Rfl: 0 traZODone (DESYREL) 50 mg tablet^Take 1 tablet by mouth daily at bedtime.^Disp: 30 tablet^Rfl: 5 clopidogrel (PLAVIX) 75 mg tablet^Take 1 tablet by mouth once daily.^Disp: 30 tablet^Rfl: 5 blood sugar diagnostic (BLOOD GLUCOSE TEST) test strip^Test blood sugar(s) one times daily. Dx: Type 2 DM - Uncontrolled E11.65 Insulin: Yes^Disp: 50 Strip^Rfl: 11 Blood Pressure Monitor^1 Each as directed.^Disp: 1 Kit^Rfl: 0 multivitamin (DAILY-YOUSUF) tablet^Take 1 tablet by mouth once daily.^Disp: 30 tablet^Rfl: 11 Diaper,Brief, Adult,Disposable (DEPEND UNDERWEAR FOR MEN -MD)^1 Each as needed.^Disp: 60 Each^Rfl: 2 alcohol swabs (ALCOHOL PREP PADS)^Apply 1 application to affected area once daily with insulin injection^Disp: 100 Each^Rfl: 3 aspirin, enteric coated (ADULT LOW DOSE ASPIRIN) 81 mg EC tablet^Take 1 tablet by mouth every morning.^Disp: 90 tablet^Rfl: 3 tamsulosin (FLOMAX) 0.4 mg^TAKE 1 CAPSULE BY MOUTH AT BEDTIME^Disp: 90 capsule^Rfl: 3 atorvastatin (LIPITOR) 80 mg tablet^Take 1 tablet by mouth every morning.^Disp: 28 tablet^Rfl: 11 metoprolol succinate ER (TOPROL XL) 100 mg^Take 1 tablet by mouth every morning.^Disp: 30 tablet^Rfl: 11 insulin glargine (LANTUS SOLOSTAR U-100 INSULIN) 100 unit/mL (3 mL)^Inject 20 Units subcutaneously every morning.^Disp: 15 mL^Rfl: 5 insulin lispro (HUMALOG KWIKPEN INSULIN) 100 unit/mL^Inject 2 Units subcutaneously three times daily before meals.^Disp: 2 mL^Rfl: 2 Insulin Kingston, Disposable, (BD ULTRA-FINE LUIS PEN NEEDLE) 32 gauge x /32^Use one needle daily for each insulin dose, 4 x's daily. Type 2 DM, insulin dependent.^Disp: 150 Each^Rfl: 3 Lancets lancets^Test blood sugar(s) one times daily. Dx: Type 2 DM - Uncontrolled E11.65 Insulin: Yes^Disp: 100 Each^Rfl: 11 MEDICAL SUPPLY^Hospital bed with rails.^Disp: 1 Each^Rfl: EACH Blood-Glucose Meter^1 Device as directed.^Disp: 1 Each^Rfl: 0 melatonin 3 mg tablet^Take 1 tablet by mouth daily at bedtime.^Disp: 30 tablet^Rfl: 5 glucose (DEX4 GLUCOSE) 4 gram chewable tablet^Take 4 tablets by mouth as needed.^Disp: 20 tablet^Rfl: 2 Lancing Device (LANCING DEVICE WITH LANCETS) misc^Use to check blood sugars as directed^Disp: 1 Each^Rfl: 0 COMPOUNDED PRESCRIPTION^Diabetic shoes: DIABETES MELLITUS- uncontrolled with neuropathy^Disp: 1 Each^Rfl: 3 Syringe with Needle, Safety (BD INTEGRA) 3 mL 22 x 1 1/2 syrg^Uses twice a month for testosterone injections^Disp: 50 Syringe^Rfl: 3 Miscellaneous Medical Supply (BLOOD PRESSURE CUFF)^1 Each once daily.^Disp: 1 Each^Rfl: 0 amLODIPine (NORVASC) 10 mg tablet^Take 1 tablet by mouth once daily.^Disp: 30 tablet^Rfl: 11 Senna 8.6 mg tab^Take 1 tablet by mouth twice daily.^Disp: 120 tablet^Rfl: 3 polyethylene glycol 3350 (MIRALAX, GLYCOLAX) 17 gram/dose powder^Take 17 g by mouth once daily. Drink a mix of 1 scoop in 8oz of water/beverage once daily as needed for constipation.^Disp: 850 g^Rfl:2 (Patient not taking: Reported on 09/08/2022) FAMILY HISTORY Problem Relation Age of Onset Stroke Mother Hypertension Mother Colon Cancer Mother Heart Father IA No Known Problems Sister Cancer Sister Social History Tobacco Use Smoking status: Former Types: Cigars Quit date: 1994 Years since quittin.6 Smokeless tobacco: Never Tobacco comments: quit 1994 Vaping Use Vaping Use: Never used Substance Use Topics Alcohol use: No Drug use: No PHYSICAL EXAM BP 146/64 (BP Site: Left Arm, BP Position: Sitting, BP Cuff Size: Large Adult) Pulse 72 Temp 36.4 C (97.5 F) Resp 12 Ht 175.3 cm (5' 9) Wt 72.6 kg (160 lb) SpO2 97% BMI 23.63 kg/m General Appearance: well appearing, in no acute distress, alert Psych: mood and affect broad and appropriate Skin: Skin color, texture, turgor normal for age; Head: normocephalic, atraumatic Lymph nodes: No cervical lymphadenopathy Lungs: Lungs clear to auscultation. No wheezing, rhonchi, rales. Heart: RRR without murmur, gallop, or rubs. No ectopy Abdomen: Normal abdominal exam Extremities: No gross deformities, significant edema, skin discoloration, clubbing or cyanosis. Neurological: Gait normal. No focal neurological deficits, but slow speech noted. Sensation grosslyintact. ASSESSMENT/PLAN: 1. Anemia, unspecified type - ICD9: 285.9, ICD10: D64.9 (primary diagnosis) Hgb 8.9 retic count 1.74 (high) on recent labs - repeat labs as ordered below Suspect anemia to be that of diminished renal function/anemia of chronic disease, so will hold off on discontinuing aspirin until we see if Hgb is stable/see if GI bleed is discovered on upcoming colonoscopy - CBC + DIFF - COMP METABOLIC PANEL 2. Chronic kidney disease, stage 4 (severe) (HCC) - ICD9: 585.4, ICD10: N18.4 Upcoming appt scheduled w/ Dr. Stark (nephro) - will f/u after consult - CBC + DIFF - COMP METABOLIC PANEL - CALCIUM IONIZED BLOOD 3. Essential hypertension, benign - ICD9: 401.1, ICD10: I10 Reviewed cardio consult- No adjustments made at recent appt w/ Dr. Harris Will continue to monitor over time- once again feel these fluctuations are closely related to kidney dysfunction - CBC + DIFF - COMP METABOLIC PANEL 4. Hypocalcemia - ICD9: 275.41, ICD10: E83.51 As noted on prior labs-- will check ionized calcium to assess further - CALCIUM IONIZED BLOOD Follow-up in 2 to 3 weeks following nephro consult and colonoscopy Prescription instructions reviewed with patient as applicable. Potential red flag symptoms discussed with the patient. Reviewed appropriate action plan to take if red flag symptoms occur. Patient agreeable to treatment plan. Toya Smith PA-C documented in this encounterBluffton Hospital08-28-2023 Nurse Note* Flora Riddle LPN - 04/03/2023 12:37 PM EDT blood sugar this AM was 240 documented in this encounterBluffton Hospital08-23-2023 Miscellaneous Notes* Telephone Encounter - Rocky Argueta RN - 03/29/2023 3:02 PM EDT Patient has been identified by name and date of : Yes, Provider Dr Manrique Date 03/29/23 Time 1503. Pharmacy phones for refill(s): Requested Prescriptions Pending Prescriptions Disp Refills hydrALAZINE (APRESOLINE) 50 mg tablet 90 tablet 3 Sig: Take 1 tablet by mouth every 8 hours. Date of last office visit in primary care: 03/13/23 Future visit: 04/03/23 Last 2 Encounter Wt Readings: Date: Wt: 03/13/2023 74.4 kg (164 lb) 02/27/2023 75.3 kg (166 lb) Previous labs/tests for medication: Blood Pressure: BUN (mg/dL) Date Value 02/14/2023 55 04/26/2021 62 Sodium (mmol/L) Date Value 02/14/2023 141 04/26/2021 134 Last 1 Encounter BP Readings: Date: BP: 03/13/2023 140/60 Please advise. Thank you. Rocky Argueta RN documented in this encounterBluffton Hospital08-18-2023 Miscellaneous Notes* Telephone Encounter - Brittnee Chapman RN - 03/24/2023 3:31 PM EDT Triage protocol Recommended: Call 911 now. Pt agreeable. Reason for Disposition [1] Weakness of the face, arm or leg on one side of the body AND [2] new-onset Answer Assessment - Initial Assessment Questions Patient calling to state his BP is 190/88 and asking if this is bad. Further assessment questions asked. Response as noted below. During triage, pt stated he was not feeling well before this call and his neighbor called 911. Pt was assessed by EMT felipe and pt declined going to ER because they don't do anything there. This nurse instructed patient to call 911 again or have neighbor assist him to closest ER immediately for evaluation due to sx's and medical history. 1. BLOOD PRESSURE: 190/88 2. ONSET: Within last hour 3. HOW: Reports [employer] took his blood pressure 4. HISTORY: yes 5. MEDICATIONS: amlodipine, metoprolol 6. OTHER SYMPTOMS: -severe headache -SOB at times-states breathing okay now -right hand tingling -feels weak all over -overall feeling of unwell -denies chest pain -denies radiating pain Protocols used: Blood Pressure - Glto-TCEGB-XF documented in this encounterBluffton Hospital08-07-2023 Instructions* Patient Instructions* Toya Smith PA-C - 03/13/2023 1:21 PM EDT 1) Ask Dr. Harris if you're taking Brilinta 2) Have labs performed tomorrow with Dr. Harris's labs 3) Talk to him about blood pressure management 4) Schedule appt with kidney doctor for worsening kidney function 5) Start on vitamin D supplement twice/week 6) Use topical voltaren gel as much as possible for rib pain- Irmo to be used very sparingly documented in this encounterBluffton Hospital08-07-2023 History of Present illness Narrative* Toya Smith PA-C - 03/13/2023 12:36 PM EDT Images from the original note were not included. 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 ER f/u: Facility: [facility] ED Date of visit: 03/04/2023 Reason for visit: Right rib/chest pain status post fall in the bathtub Hospital course: CT of chest was obtained which was negative for any rib fracture, pneumothorax, orany other concerning chest pathology. CT of head was also obtained due to the fact that patient is on Brilinta, and cannot remember if he did hit his head on the way down. This was also negative for any acute Diagnosis: Rib pain on right side, head injury, fall Current symptoms: Still complaining of right-sided rib pain at this time. States pain is ~8/10, andit hurts all the time. I get SOB all the time. Unchanged from baseline. Patient reports that he must been confused at prior visit, as he does not see nephrology. He has appointment with cardiology at [facility] tomorrow (Dr. Harris), and will obtain labs as well. REVIEW OF SYSTEMS See HPI All other systems negative 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 Dyslipidemia Essential hypertension, benign Family history of malignant neoplasm of gastrointestinal tract Non-proliferative diabetic retinopathy, mild, both eyes (HCC) 10/11/2017 Non-proliferative diabetic retinopathy, moderate, both eyes (HCC) 10/14/2019 Other specific developmental learning difficulties Pneumonia 07/07/15 Dx at [facility] ER Psoriasis and similar disorders Pure hypercholesterolemia Pure hyperglyceridemia Right thalamic infarction (HCC) 02/18/2019 [facility] Stenosis of carotid artery Stroke (HCC) Tietze's disease Tinea unguium 12/01/2017 Type II or unspecified type diabetes mellitus with neurological manifestations, not stated as uncontrolled(250.60) PAST SURGICAL HISTORY Procedure Laterality Date COLONOSCOPY FLX DX W/COLLJ SPEC WHEN PFRMD 2017 repeat 3 years ESOPHAGOGASTRODUODENOSCOPY TRANSORAL DIAGNOSTIC 2017 EGD LAPAROSCOP GASTRIC BYPASS N/A NEUROPLASTY &/TRANSPOS MEDIAN NRV CARPAL TUNNE 05/08/12 Carpal tunnel decomp right PACEMAKER 03/04/2019 PAST SURGICAL HISTORY OF EGD PAST SURGICAL HISTORY OF Colonsocopy ALLERGIES Lopid [Gemfibrozil] MEDICATIONS Miscellaneous Medical Supply (BLOOD PRESSURE CUFF)^1 Each once daily.^Disp: 1 Each^Rfl: 0 traZODone (DESYREL) 50 mg tablet^Take 1 tablet by mouth daily at bedtime.^Disp: 30 tablet^Rfl: 5 clopidogrel (PLAVIX) 75 mg tablet^Take 1 tablet by mouth once daily.^Disp: 30 tablet^Rfl: 5 blood sugar diagnostic (BLOOD GLUCOSE TEST) test strip^Test blood sugar(s) one times daily. Dx: Type 2 DM - Uncontrolled E11.65 Insulin: Yes^Disp: 50 Strip^Rfl: 11 Blood Pressure Monitor^1 Each as directed.^Disp: 1 Kit^Rfl: 0 hydrALAZINE (APRESOLINE) 50 mg tablet^Take 1 tablet by mouth every 8 hours.^Disp: 90 tablet^Rfl: 3 amLODIPine (NORVASC) 10 mg tablet^Take 1 tablet by mouth once daily.^Disp: 30 tablet^Rfl: 11 multivitamin (DAILY-YOUSUF) tablet^Take 1 tablet by mouth once daily.^Disp: 30 tablet^Rfl: 11 Diaper,Brief, Adult,Disposable (DEPEND UNDERWEAR FOR MEN -NH)^1 Each as needed.^Disp: 60 Each^Rfl: 2 alcohol swabs (ALCOHOL PREP PADS)^Apply 1 application to affected area once daily with insulin injection^Disp: 100 Each^Rfl: 3 aspirin, enteric coated (ADULT LOW DOSE ASPIRIN) 81 mg EC tablet^Take 1 tablet by mouth every morning.^Disp: 90 tablet^Rfl: 3 Senna 8.6 mg tab^Take 1 tablet by mouth twice daily.^Disp: 120 tablet^Rfl: 3 tamsulosin (FLOMAX) 0.4 mg^TAKE 1 CAPSULE BY MOUTH AT BEDTIME^Disp: 90 capsule^Rfl: 3 atorvastatin (LIPITOR) 80 mg tablet^Take 1 tablet by mouth every morning.^Disp: 28 tablet^Rfl: 11 metoprolol succinate ER (TOPROL XL) 100 mg^Take 1 tablet by mouth every morning.^Disp: 30 tablet^Rfl: 11 insulin glargine (LANTUS SOLOSTAR U-100 INSULIN) 100 unit/mL (3 mL)^Inject 20 Units subcutaneously every morning.^Disp: 15 mL^Rfl: 5 insulin lispro (HUMALOG KWIKPEN INSULIN) 100 unit/mL^Inject 2 Units subcutaneously three times daily before meals.^Disp: 2 mL^Rfl: 2 Insulin Kingston, Disposable, (BD ULTRA-FINE LUIS PEN NEEDLE) 32 gauge x ^Use one needle daily for each insulin dose, 4 x's daily. Type 2 DM, insulin dependent.^Disp: 150 Each^Rfl: 3 Lancets lancets^Test blood sugar(s) one times daily. Dx: Type 2 DM - Uncontrolled E11.65 Insulin: Yes^Disp: 100 Each^Rfl: 11 MEDICAL SUPPLY^Hospital bed with rails.^Disp: 1 Each^Rfl: EACH Blood-Glucose Meter^1 Device as directed.^Disp: 1 Each^Rfl: 0 (Patient not taking: Reported on 09/08/2022) melatonin 3 mg tablet^Take 1 tablet by mouth daily at bedtime.^Disp: 30 tablet^Rfl: 5 glucose (DEX4 GLUCOSE) 4 gram chewable tablet^Take 4 tablets by mouth as needed.^Disp: 20 tablet^Rfl: 2 triamcinolone (KENALOG) 0.025 % lotn^Apply 1 application to affected area twice daily. To bilaterallegs^Disp: 60 mL^Rfl: 1 (Patient not taking: Reported on 09/08/2022) polyethylene glycol 3350 (MIRALAX, GLYCOLAX) 17 gram/dose powder^Take 17 g by mouth once daily. Drink a mix of 1 scoop in 8oz of water/beverage once daily as needed for constipation.^Disp: 850 g^Rfl:2 (Patient not taking: Reported on 09/08/2022) Lancing Device (LANCING DEVICE WITH LANCETS) mis^Use to check blood sugars as directed^Disp: 1 Each^Rfl: 0 COMPOUNDED PRESCRIPTION^Diabetic shoes: DIABETES MELLITUS- uncontrolled with neuropathy^Disp: 1 Each^Rfl: 3 Syringe with Needle, Safety (BD INTEGRA) 3 mL 22 x 1 1/2 syrg^Uses twice a month for testosterone injections^Disp: 50 Syringe^Rfl: 3 FAMILY HISTORY Problem Relation Age of Onset Stroke Mother Hypertension Mother Colon Cancer Mother Heart Father [place] No Known Problems Sister Cancer Sister Social History Tobacco Use Smoking status: Former Types: Cigars Quit date: 1994 Years since quittin.6 Smokeless tobacco: Never Tobacco comments: quit 1994 Vaping Use Vaping Use: Never used Substance Use Topics Alcohol use: No Drug use: No PHYSICAL EXAM BP 140/60 (BP Site: Left Arm, BP Position: Sitting, BP Cuff Size: Regular Adult) Pulse 65 Temp 36.3 C (97.4 F) Resp 12 Ht 175.3 cm (5' 9) Wt 74.4 kg (164 lb) SpO2 98% BMI 24.22 kg/m Physical Exam Constitutional: General: He is not in acute distress. Appearance: He is not toxic-appearing. HENT: Head: Normocephalic and atraumatic. Mouth/Throat: Mouth: Mucous membranes are moist. Cardiovascular: Rate and Rhythm: Normal rate and regular rhythm. Pulmonary: Effort: Pulmonary effort is normal. No respiratory distress. Breath sounds: Normal breath sounds. No wheezing. Chest: Chest wall: Tenderness and edema (Small area, measuring about the size of a quarter of localized edema and TTP in area as outlined) present. No mass or lacerations. Skin: General: Skin is warm and dry. Neurological: General: No focal deficit present. Mental Status: He is oriented to person, place, and time. Psychiatric: Mood and Affect: Mood normal. Behavior: Behavior normal. ASSESSMENT/PLAN: 1. Rib pain on right side - ICD9: 786.50, ICD10: R07.81 (primary diagnosis) Suspect contusion secondary to trauma. CT scan of chest negative when in ED. We will do another very short-term supply of Irmo to assist with discomfort for the time being, as patient cannot take NSAIDs due to renal dysfunction. Rx for topical diclofenac gel to trial as well. Discussed medication indications, proper use, and potential adverse effects. All questions and concerns addressed to patient satisfaction. - DICLOFENAC 1 % TOPICAL GEL - HYDROCODONE 5 MG-ACETAMINOPHEN 325 MG TABLET 2. Type 2 diabetes mellitus with stage 4 chronic kidney disease, with long-term current use of insulin (HCC) - ICD9: 250.40, 585.4, V58.67, ICD10: E11.22, N18.4, Z79.4 - Controlled - Continue current medications - eGFR: Worsening - Albuminuria: 4876 Reinforced importance of scheduling with nephrology. Referral faxed over to [facility] to establish care. 3. Function kidney decreased - ICD9: 593.9, ICD10: N28.9 See above - CBC + DIFF 4. Essential hypertension, benign - ICD9: 401.1, ICD10: I10 Suboptimally controlled, with values fluctuating between high and low Follow-up as planned tomorrow with Dr. Harris - Continue current medications - Encouraged sodium restriction, DASH or Mediterranean diet - Recommend regular aerobic exercise 5. Anemia, unspecified type - ICD9: 285.9, ICD10: D64.9 Possibly related to diminished renal function. Inconsistent with iron deficiency anemia based on recent iron panel results. We will recheck updated CBC. - CBC + DIFF 6. Vitamin D deficiency - ICD9: 268.9, ICD10: E55.9 Vitamin D was rather low on recent labs. Will start on prescrption strength supplementation, 50,000units twice weekly for 12 weeks. - CHOLECALCIFEROL (VITAMIN D3) 1,250 MCG (50,000 UNIT) CAPSULE Prescription instructions reviewed with patient as applicable. Potential red flag symptoms discussed with the patient. Reviewed appropriate action plan to take if red flag symptoms occur. Patient agreeable to treatment plan. Toya Smith PA-C documented in this encounterBluffton Hospital07-31-2023 Miscellaneous Notes* Telephone Encounter - Renetta Santamaria OCCA - 03/06/2023 3:20 PM EDT In review of patient chart, he was seen for an OV in IM on 02/27/23 with Toya Smith PA-C. Closing this encounter. JAD Tirado * Telephone Encounter - Rocky Argueta RN - 01/31/2023 4:27 PM EDT Called and left a voicemail for the Patient to call back and ask for a nurse to receive the providers message. Rocky Babulski, RN * Telephone Encounter - Taco Tatum APRN.CNP - 01/31/2023 11:57 AM EDT Patient needs to see me or Toya in 2 weeks to review lab work and echo once resulted. Kidney function continues to decrease. He needs to improve water intake, avoid anti-inflammatories, get a kidney US completed, and see nephrology. Thank you Taco Tatum APRN.CNP documented in this encounterBluffton Hospital07-29-2023 Hospital Discharge instructions Additional Instructions Please use the incentive spirometer 8-10 times every hour while awake. This helps prevent pneumonia. Use ibuprofen and Tylenol.[facility] Work Phone: [phone] 834-856406-27-2023 Miscellaneous Notes* Telephone Encounter - Bebe Cortez LPN - 01/31/2023 1:43 PM EDT Patient has been identified by name and date of : YesPharmacy phones for refill(s): Requested Prescriptions Pending Prescriptions Disp Refills traZODone (DESYREL) 50 mg tablet 30 tablet 5 Sig: Take 1 tablet by mouth daily at bedtime. clopidogrel (PLAVIX) 75 mg tablet 30 tablet 5 Sig: Take 1 tablet by mouth once daily. Date of last office visit in primary care: 01/25/2023 4 week follow-up: 02/27/2023 Last 2 Encounter Wt Readings: Date: Wt: 01/25/2023 73.9 kg (163 lb) 11/16/2022 73.9 kg (163 lb) Previous labs/tests for medication: Cholesterol: HDL Cholesterol (mg/dL) Date Value 04/26/2021 18 LDL Cholesterol (mg/dL) Date Value 04/26/2021 Unable to calculate due to increased Triglycerides. See LDL-Chol, Direct. ALT (U/L) Date Value 01/25/2023 17 10/10/2019 12 Non HDL Cholesterol (mg/dL) Date Value 04/26/2021 128 Please advise. Thank you. Bebe Cortez LPN documented in this encounterBl[facility]06-[facility] History of Present illness Narrative* Taco Rc, RUNNING SPECIALIST.HELIARC WELDER - 01/25/2023 2:46 PM EDT CC: Patient presents with: Recheck: DM follow up HPI Lou Julien is a 67 year old male who presents today for diabetic follow up. Has an aide that comes in the morning to help with his medications as he has some developmental and learning disabilities. DIABETES MELLITUS: Mr. Julien denies excessive thirst or increased frequency of urination, new numbness, new tingling or pain in extremities, new or unusual visual symptoms, low sugar/hypoglycemic reactions, weight loss/gain, lightheadedness/dizziness, and bowel changes/loose stools. Follows a diabetic diet most of the time. He is compliant with medication(s) and is tolerating med(s) without any side effects. He reports checking his glucose on a three times a day schedule with sugars in the fasting 170s range. Patient's last HgA1C was Hemoglobin A1C (%) Date Value 04/26/2021 6.7 04/26/2021 6.6 Hemoglobin A1C (POCT) (%) Date Value 11/16/2022 7.7 05/17/2022 7.0 ) HTN/SVT/Pacemaker: Mr. Julien indicates that he is feeling well and denies any symptoms referable to elevated blood pressure. Specifically denies headache, chest pain, palpitations, and peripheral edema. Patient denies any side effects of his medication(s) and is compliant with their regimen except he has been out of his hydralazine. He does not check BP's generally. Lou denies regular aerobic exercise. He watches his diet for sodium, low fat and low cholesterol most of the time. Last 3 Encounter BP Readings: Date: BP: 01/25/2023 148/72 11/16/2022 138/66 10/19/2022 138/72 See [facility] with next visit in March. Does get slight shortness of breath on exertion. Denies any accompanying chest pressure or other symptom. Shortness of breath resolves when he sits down and rests. REVIEW OF SYSTEMS General: no fevers, no chills, no night sweats, no recurrent infections, no change in appetite, no change in energy, and no significant changes in weight Respiratory: no cough, no wheezing, no hemoptysis Cardiovascular: no chest pain, no chest pressure, no palpitations, and no swelling GI: No nausea, vomiting, or diarrhea Endocrine: no fatigue, no weight gain, no weight loss, no cold intolerance, no heat intolerance, nopolyuria, no polyphagia, and no polydipsia Neurologic: No headache, weakness, dizziness, memory loss, syncope. 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 Dyslipidemia Essential hypertension, benign Family history of malignant neoplasm of gastrointestinal tract Non-proliferative diabetic retinopathy, mild, both eyes ([facility]) 10/11/2017 Non-proliferative diabetic retinopathy, moderate, both eyes ([facility]) 10/14/2019 Other specific developmental learning difficulties Pneumonia 07/07/15 Dx at [facility] Psoriasis and similar disorders Pure hypercholesterolemia Pure hyperglyceridemia Right thalamic infarction (HCC) 02/18/2019 [facility] Stenosis of carotid artery Stroke ([facility]) Tietze's disease Tinea unguium 12/01/2017 Type II or unspecified type diabetes mellitus with neurological manifestations, not stated as uncontrolled(250.60) PAST SURGICAL HISTORY Procedure Laterality Date COLONOSCOPY FLX DX W/COLLJ SPEC WHEN PFRMD 2017 repeat 3 years ESOPHAGOGASTRODUODENOSCOPY TRANSORAL DIAGNOSTIC 2017 EGD LAPAROSCOP GASTRIC BYPASS N/A NEUROPLASTY &/TRANSPOS MEDIAN NRV CARPAL TUNNE 05/08/12 Carpal tunnel decomp right PACEMAKER 03/04/2019 PAST SURGICAL HISTORY OF EGD PAST SURGICAL HISTORY OF Colonsocopy ALLERGIES Lopid [Gemfibrozil] MEDICATIONS blood sugar diagnostic (BLOOD GLUCOSE TEST) test strip Test blood sugar(s) one times daily. Dx: Type 2 DM - Uncontrolled E11.65 Insulin: Yes hydrALAZINE (APRESOLINE) 50 mg tablet Take 1 tablet by mouth every 8 hours. amLODIPine (NORVASC) 10 mg tablet Take 1 tablet by mouth once daily. multivitamin (DAILY-YOUSUF) tablet Take 1 tablet by mouth once daily. Diaper,Brief, Adult,Disposable (DEPEND UNDERWEAR FOR MEN ADRIEL-) 1 Each as needed. alcohol swabs (ALCOHOL PREP PADS) Apply 1 application to affected area once daily with insulin injection aspirin, enteric coated (ADULT LOW DOSE ASPIRIN) 81 mg EC tablet Take 1 tablet by mouth every morning. Senna 8.6 mg tab Take 1 tablet by mouth twice daily. tamsulosin (FLOMAX) 0.4 mg TAKE 1 CAPSULE BY MOUTH AT BEDTIME traZODone (DESYREL) 50 mg tablet Take 1 tablet by mouth daily at bedtime. clopidogrel (PLAVIX) 75 mg tablet Take 1 tablet by mouth once daily. atorvastatin (LIPITOR) 80 mg tablet Take 1 tablet by mouth every morning. metoprolol succinate ER (TOPROL XL) 100 mg Take 1 tablet by mouth every morning. insulin glargine (LANTUS SOLOSTAR U-100 INSULIN) 100 unit/mL (3 mL) Inject 20 Units subcutaneously every morning. insulin lispro (HUMALOG KWIKPEN INSULIN) 100 unit/mL Inject 2 Units subcutaneously three times daily before meals. Insulin Kingston, Disposable, (BD ULTRA-FINE LUIS PEN NEEDLE) 32 gauge x 532 Use one needle daily for each insulin dose, 4 x's daily. Type 2 DM, insulin dependent. Lancets lancets Test blood sugar(s) one times daily. Dx: Type 2 DM - Uncontrolled E11.65 Insulin: Yes MEDICAL SUPPLY Hospital bed with rails. Blood-Glucose Meter 1 Device as directed. (Patient not taking: Reported on 09/08/2022) lidocaine (SALONPAS) 4 % patch Apply as directed once daily. (Patient not taking: Reported on 09/08/2022) Blood Pressure Monitor 1 Each as directed. (Patient not taking: Reported on 09/08/2022) melatonin 3 mg tablet Take 1 tablet by mouth daily at bedtime. glucose (DEX4 GLUCOSE) 4 gram chewable tablet Take 4 tablets by mouth as needed. triamcinolone (KENALOG) 0.025 % lotn Apply 1 application to affected area twice daily. To bilaterallegs (Patient not taking: Reported on 09/08/2022) polyethylene glycol 3350 (MIRALAX, GLYCOLAX) 17 gram/dose powder Take 17 g by mouth once daily. Drink a mix of 1 scoop in 8oz of water/beverage once daily as needed for constipation. (Patient not taking: Reported on 09/08/2022) Lancing Device (LANCING DEVICE WITH LANCETS) misc Use to check blood sugars as directed COMPOUNDED PRESCRIPTION Diabetic shoes: DIABETES MELLITUS- uncontrolled with neuropathy Syringe with Needle, Safety (BD INTEGRA) 3 mL 22 x 1 1/2 syrg Uses twice a month for testosterone injections FAMILY HISTORY Problem Relation Age of Onset Stroke Mother Hypertension Mother Colon Cancer Mother Heart Father IA No Known Problems Sister Cancer Sister Social History Tobacco Use Smoking status: Former Types: Cigars Smokeless tobacco: Never Tobacco comments: quit 1994 Vaping Use Vaping Use: Never used Substance Use Topics Alcohol use: No Drug use: No PHYSICAL EXAM BP 148/72 Pulse 80 Resp 16 Wt 73.9 kg (163 lb) BMI 24.07 kg/m General Appearance: well appearing, in no acute distress, alert Skin: Skin color, texture, turgor normal for age; Eyes: conjunctiva pink and moist, no icterus, sclera white, non-injected Neck: Thyroid normal size and symmetric without palpable nodules, Neck supple, No adenopathy Lymph nodes: No cervical lymphadenopathy and No supraclavicular lymphadenopathy Lungs: Lungs clear to auscultation. No wheezing, rhonchi, rales. Heart: RRR without murmur, gallop, or rubs. No ectopy Health maintenance reviewed with patient: ABDOMINAL AORTIC ANEURYSM SCREENING Never done PNEUMOCOCCAL: 67+(2 - PCV) due on 08/21/2013 DILATED RETINAL EXAM due on 10/10/2020 COLORECTAL CANCER SCREENING due on 2020 BP CONTROLLED (<130/80) due on 04/23/2022 URINE ALBUMIN:CREATININE RATIO due on 04/26/2022 LDL CHOLESTEROL due on 04/26/2022 SERUM CREATININE due on 04/26/2022 HEMOGLOBIN/HEMATOCRIT due on 11/30/2022 ADVANCE DIRECTIVE DISCUSSION Never done SHINGRIX VACCINE(1 of 2) due on 11/17/2023 COVID-19 VACCINE(1) due on 11/17/2023 INFLUENZA(Season Ended) due on 04/07/2023 HBA1C due on 05/18/2023 DIABETIC FOOT EXAM due on 11/17/2023 ANNUAL PCP TEAM CHRONIC DISEASE VISIT due on 11/17/2023 PROSTATE CANCER SCREENING DISCUSSION due on 08/15/2024 DTAP,TDAP,TD(4 - Td or Tdap) due on 10/05/2025 DEPRESSION ASSESSMENT Completed HEPATITIS C SCREENING Completed HIV SCREENING Completed DATA REVIEWED: No new labs ASSESSMENT/PLAN: 1. Essential hypertension, benign - ICD9: 401.1, ICD10: I10 (primary diagnosis) - Uncontrolled - patient to check at home and will review at follow up and decide on any needed medchanges - Continue current medications - Recommend home blood pressure monitoring, to bring results to next visit - Encouraged sodium restriction, DASH or Mediterranean diet - Recommend regular aerobic exercise - BLOOD PRESSURE MONITOR KIT - CBC + DIFF - COMP METABOLIC PANEL 2. Dyspnea on exertion - ICD9: 786.09, ICD10: R06.09 - unsure on cause - ECHO - PERFLUTREN LIPID MICROSPHERES 1.1 MG/ML INJECTION IN NS 10 ML - SODIUM CHLORIDE 0.9 % (FLUSH) INJECTION SYRINGE - CBC + DIFF - COMP METABOLIC PANEL - TSH BLD - XR CHEST 2V FRONTAL/LAT 3. Diabetic polyneuropathy associated with type 2 diabetes mellitus (HCC) - ICD9: 250.60, 357.2, ICD10: E11.42 - Uncontrolled - Continue current medications but adding glimepiride - Blood glucose monitoring on a once daily schedule - Counseled on healthy diet and regular exercise - Discussed need for and benefit of weight loss. BMI 24.07 kg/(m^2) - GLIMEPIRIDE 2 MG TABLET - ALBUMIN/CREAT RATIO RND UR - CBC + DIFF - COMP METABOLIC PANEL - TSH BLD - follow up in 4 weeks 4. Chronic kidney disease, stage 4 (severe) (HCC) - ICD9: 585.4, ICD10: N18.4 - eGFR: needs re-evaluated - Counseled on avoiding NSAIDs, adequate hydration - CBC + DIFF - COMP METABOLIC PANEL Prescription instructions reviewed with patient as applicable. Potential red flag symptoms discussed with the patient. Reviewed appropriate action plan to take if red flag symptoms occur. Patient agreeable to treatment plan. Taco Tatum APRN.CNP documented in this encounterBluffton Hospital05-12-2023 Miscellaneous Notes* Telephone Encounter - Terrie Telles LPN - 12/16/2022 1:25 PM EDT Patient has been identified by name and date of : Pharmacy phones for refill(s): Requested Prescriptions Pending Prescriptions Disp Refills blood sugar diagnostic (BLOOD GLUCOSE TEST) test strip 50 Strip 11 Sig: Test blood sugar(s) one times daily. Dx: Type 2 DM - Uncontrolled E11.65 Insulin: Yes Date of last office visit in primary care: 11/16/2022, no future appt scheduled Last 2 Encounter Wt Readings: Date: Wt: 11/16/2022 73.9 kg (163 lb) 10/19/2022 77.6 kg (171 lb) Previous labs/tests for medication: Diabetes: Hemoglobin A1C (%) Date Value 04/26/2021 6.7 04/26/2021 6.6 Hemoglobin A1C (POCT) (%) Date Value 11/16/2022 7.7 05/17/2022 7.0 Please advise. Thank you. Terrie Telles LPN documented in this encounterBluffton Hospital04-12-2023 Instructions* Patient Instructions* Taco Tatum APRN.CNP - 11/16/2022 2:21 PM EDT Get Fasting blood work completed before next appointment. documented in this encounterBluffton Hospital04-12-2023 History of Present illness Narrative* Tcao Tatum APRN.CNP - 11/16/2022 2:08 PM EDT CC: Patient presents with: Recheck: Medication follow up HPI Lou Julien is a 66 year old male who presents today for follow up on diabetes. Has an aide that comes twice a day to help cook, clean, and occasionally shower. States he typcially showers and dresses himself. Saw PCP 4 weeks ago after going to hospital with very high blood sugar. Per PCPs note, concern was his mental capability to do his own medications. Returns today with blood sugar log. DIABETES MELLITUS: Mr. Julien denies excessive thirst or increased frequency of urination, chest painor dyspnea , new or unusual visual symptoms, low sugar/hypoglycemic reactions, weight loss/gain, lightheadedness/dizziness, and bowel changes/loose stools. Follows a diabetic diet most of the time. He is compliant with medication(s) and is tolerating med(s) without any side effects. Just recently in the last month started checking his blood sugar and taking insulin as ordered. Reports he takes his insulin as ordered. He reports checking his glucose on a once a day schedule with sugars in the fasting 100s-180s range. Patient's last HgA1C was Hemoglobin A1C (%) Date Value 03/14/2022 9.3 11/30/2021 7.7 04/26/2021 6.7 04/26/2021 6.6 Hemoglobin A1C (POCT) (%) Date Value 05/17/2022 7.0 ) Last Ophthalmology exam is scheduled next for in March A week ago noticed he was not able to feet his left foot and had a brace ordered by podiatry. Denies having any injury or known cause Has a follow up appointment in January. Patient poor historian at one time indicating this had not been evaluated but then later in conversation stating his brace was for his. States he sees a foot doctor [facility] REVIEW OF SYSTEMS General: no fevers, no chills, no night sweats, no recurrent infections, no change in appetite, no change in energy, and no significant changes in weight Respiratory: no cough, no wheezing, no shortness of breath, no hemoptysis Cardiovascular: no chest pain, no chest pressure, no palpitations, and no swelling GI: No nausea, vomiting, or diarrhea Endocrine: no fatigue, no polyuria, no polyphagia, and no polydipsia Neurologic: No headache, weakness, dizziness, memory loss, syncope. 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 Dyslipidemia Essential hypertension, benign Family history of malignant neoplasm of gastrointestinal tract Non-proliferative diabetic retinopathy, mild, both eyes ([facility]) 10/11/2017 Non-proliferative diabetic retinopathy, moderate, both eyes (HCC) 10/14/2019 Other specific developmental learning difficulties Pneumonia 07/07/15 Dx at [facility] Psoriasis and similar disorders Pure hypercholesterolemia Pure hyperglyceridemia Right thalamic infarction (HCC) 02/18/2019 [facility] Stenosis of carotid artery Stroke (HCC) Tietze's disease Tinea unguium 12/01/2017 Type II or unspecified type diabetes mellitus with neurological manifestations, not stated as uncontrolled(250.60) PAST SURGICAL HISTORY Procedure Laterality Date COLONOSCOPY FLX DX W/COLLJ SPEC WHEN PFRMD 2017 repeat 3 years ESOPHAGOGASTRODUODENOSCOPY TRANSORAL DIAGNOSTIC 2017 EGD LAPAROSCOP GASTRIC BYPASS N/A NEUROPLASTY &/TRANSPOS MEDIAN NRV CARPAL TUNNE 05/08/12 Carpal tunnel decomp right PACEMAKER 03/04/2019 PAST SURGICAL HISTORY OF EGD PAST SURGICAL HISTORY OF Colonsocopy ALLERGIES Lopid [Gemfibrozil] MEDICATIONS amLODIPine (NORVASC) 10 mg tablet Take 1 tablet by mouth once daily. multivitamin (DAILY-YOUSUF) tablet Take 1 tablet by mouth once daily. aspirin, enteric coated (ADULT LOW DOSE ASPIRIN) 81 mg EC tablet Take 1 tablet by mouth every morning. hydrALAZINE (APRESOLINE) 50 mg tablet Take 1 tablet by mouth every 8 hours. Senna 8.6 mg tab Take 1 tablet by mouth twice daily. tamsulosin (FLOMAX) 0.4 mg TAKE 1 CAPSULE BY MOUTH AT BEDTIME clopidogrel (PLAVIX) 75 mg tablet Take 1 tablet by mouth once daily. atorvastatin (LIPITOR) 80 mg tablet Take 1 tablet by mouth every morning. metoprolol succinate ER (TOPROL XL) 100 mg Take 1 tablet by mouth every morning. insulin glargine (LANTUS SOLOSTAR U-100 INSULIN) 100 unit/mL (3 mL) Inject 20 Units subcutaneously every morning. insulin lispro (HUMALOG KWIKPEN INSULIN) 100 unit/mL Inject 2 Units subcutaneously three times daily before meals. Diaper,Brief, Adult,Disposable (DEPEND UNDERWEAR FOR MEN -MD) 1 Each as needed. alcohol swabs (ALCOHOL PREP PADS) Apply 1 application to affected area once daily with insulin injection traZODone (DESYREL) 50 mg tablet Take 1 tablet by mouth daily at bedtime. Insulin Kingston, Disposable, (BD ULTRA-FINE LUIS PEN NEEDLE) 32 gauge x 5/32 Use one needle daily for each insulin dose, 4 x's daily. Type 2 DM, insulin dependent. Lancets lancets Test blood sugar(s) one times daily. Dx: Type 2 DM - Uncontrolled E11.65 Insulin: Yes MEDICAL SUPPLY Hospital bed with rails. blood sugar diagnostic (BLOOD GLUCOSE TEST) test strip Test blood sugar(s) one times daily. Dx: Type 2 DM - Uncontrolled E11.65 Insulin: Yes Blood-Glucose Meter 1 Device as directed. (Patient not taking: Reported on 09/08/2022) lidocaine (SALONPAS) 4 % patch Apply as directed once daily. (Patient not taking: Reported on 09/08/2022) Blood Pressure Monitor 1 Each as directed. (Patient not taking: Reported on 09/08/2022) melatonin 3 mg tablet Take 1 tablet by mouth daily at bedtime. glucose (DEX4 GLUCOSE) 4 gram chewable tablet Take 4 tablets by mouth as needed. triamcinolone (KENALOG) 0.025 % lotn Apply 1 application to affected area twice daily. To bilaterallegs (Patient not taking: Reported on 09/08/2022) polyethylene glycol 3350 (MIRALAX, GLYCOLAX) 17 gram/dose powder Take 17 g by mouth once daily. Drink a mix of 1 scoop in 8oz of water/beverage once daily as needed for constipation. (Patient not taking: Reported on 09/08/2022) Lancing Device (LANCING DEVICE WITH LANCETS) misc Use to check blood sugars as directed COMPOUNDED PRESCRIPTION Diabetic shoes: DIABETES MELLITUS- uncontrolled with neuropathy Syringe with Needle, Safety (BD INTEGRA) 3 mL 22 x 1 1/2 syrg Uses twice a month for testosterone injections FAMILY HISTORY Problem Relation Age of Onset Stroke Mother Hypertension Mother Colon Cancer Mother Heart Father IA No Known Problems Sister Cancer Sister Social History Tobacco Use Smoking status: Former Types: Cigars Smokeless tobacco: Never Tobacco comments: quit 1994 Vaping Use Vaping Use: Never used Substance Use Topics Alcohol use: No Drug use: No PHYSICAL EXAM BP 138/66 Pulse 68 Resp 16 Wt 73.9 kg (163 lb) BMI 24.07 kg/m General Appearance: well appearing, in no acute distress, alert Lungs: Lungs clear to auscultation. No wheezing, rhonchi, rales. Heart: RRR without murmur, gallop, or rubs. No ectopy Feet:Shoes and socks removed, normal distal pulses, not sensitive to monofilament to bilateral feet, and vibratory perception decreased to bilateral feet. Health maintenance reviewed with patient: COVID-19 VACCINE(1) Never done SHINGRIX VACCINE(1 of 2) Never done PNEUMOCOCCAL(2 - PCV) due on 08/21/2013 DILATED RETINAL EXAM due on 10/10/2020 COLORECTAL CANCER SCREENING due on 2020 DIABETIC FOOT EXAM due on 04/23/2022 BP CONTROLLED (<130/80) due on 04/23/2022 URINE ALBUMIN:CREATININE RATIO due on 04/26/2022 LDL CHOLESTEROL due on 04/26/2022 SERUM CREATININE due on 04/26/2022 HBA1C due on 11/15/2022 HEMOGLOBIN/HEMATOCRIT due on 11/30/2022 INFLUENZA(Season Ended) due on 04/07/2023 ANNUAL PCP TEAM CHRONIC DISEASE VISIT due on 10/20/2023 PROSTATE CANCER SCREENING DISCUSSION due on 08/15/2024 DTAP,TDAP,TD(4 - Td or Tdap) due on 10/05/2025 DEPRESSION ASSESSMENT Completed HEPATITIS C SCREENING Completed HIV SCREENING Completed DATA REVIEWED: No new labs ASSESSMENT/PLAN: 1. Type 2 diabetes mellitus with stage 3b chronic kidney disease, with long-term current use of insulin (HCC) - ICD9: 250.40, 585.3, V58.67, ICD10: E11.22, N18.32, Z79.4 - Improving control and patient reporting regular usage of his insulin and brought in records of glucose readings. Will have him continue and keep upcoming appointment with PCP - Continue current medications - Blood glucose monitoring on a three times daily schedule - Counseled on healthy diet and regular exercise - HEMOGLOBIN A1C (POC) - ALBUMIN/CREAT RATIO RND UR - COMP METABOLIC PANEL 2. Numbness in feet - ICD9: 782.0, ICD10: R20.0 - patient difficult to get accurate account of if this has been evaluated fully. Will get podiatry record and will evaluate further if needed. Prescription instructions reviewed with patient as applicable. Potential red flag symptoms discussed with the patient. Reviewed appropriate action plan to take if red flag symptoms occur. Patient agreeable to treatment plan. Taco Tatum APRN.HELIARC WELDER documented in this encounterBluffton Hospital04-06-2023 Miscellaneous Notes* Telephone Encounter - Brittnee Chapman RN - 11/10/2022 2:59 PM EDT Medication refill requested by Pharmacy Please review and advise. Requested Prescriptions Pending Prescriptions Disp Refills amLODIPine (NORVASC) 10 mg tablet 30 tablet 11 Sig: Take 1 tablet by mouth once daily. multivitamin (DAILY-YOUSUF) tablet 28 tablet 11 Sig: Take 1 tablet by mouth once daily. Last encounter with this provider: 10/19/2022 Next appt: 11/16/2022 Last 1 Encounter BP Readings: Date: BP: 10/19/2022 138/72 WBC (k/uL) Date Value 11/30/2021 7.35 Hemoglobin (g/dL) Date Value 11/30/2021 9.5 (L) Platelet Count (k/uL) Date Value 11/30/2021 297 Glucose (mg/dL) Date Value 04/26/2021 216 (H) BUN (mg/dL) Date Value 04/26/2021 62 (H) Creatinine (mg/dL) Date Value 04/26/2021 2.09 (H) Sodium (mmol/L) Date Value 04/26/2021 134 (L) Potassium (mmol/L) Date Value 04/26/2021 4.6 Calcium (mg/dL) Date Value 04/26/2021 8.7 Alkaline Phosphatase (U/L) Date Value 10/10/2019 113 Bilirubin, Total (mg/dL) Date Value 10/10/2019 0.4 AST (U/L) Date Value 10/10/2019 16 ALT (U/L) Date Value 10/10/2019 12 Cholesterol, Total (mg/dL) Date Value 04/26/2021 146 Triglyceride (mg/dL) Date Value 04/26/2021 402 (H) TSH (uU/mL) Date Value 06/05/2017 0.734 documented in this encounterBluffton Hospital03-06-2023 Miscellaneous Notes* Telephone Encounter - Kari Yang Ma - 10/10/2022 4:53 PM EST Patient notified. * Telephone Encounter - Taco Tatum APRN.CNP - 10/10/2022 4:28 PM EST Take 2 units of humalog with meals as previously ordered and keep upcoming appointment as scheduledwith Dr. Manrique. Thank you Taco Tatum APRN.CNP * Telephone Encounter - Kari Yang Ma - 10/10/2022 4:22 PM EST Spoke with patient, he clarified taking 4 units of humalog before meal, said he felt a little different. Advised patient that our records indicated that he should be only taking 2 units not 4 and if any changes, we would call patient back with instructions. * Telephone Encounter - Taco Tatum APRN.CNP - 10/10/2022 1:57 PM EST Please clarify what patient is taking for insulin. We have 2 units of humalog with meals and 20 units of lantus daily. Also, how did he feel with the lower blood sugars? Did they get the blood sugar so close to eating lunch because he was symptomatic? Thank you Taco Tatum APRN.CNP * Telephone Encounter - Jaimie Dobbs LPN - 10/10/2022 12:59 PM EST Pt's busetre: Risa, calls to report blood sugars today: 8:55 am - 86 -pt ate egss and toast 10:30 am - 104 11:30 am - pt took 4 units of insulin per usual before lunch. Pt ate meatballs/bun, beans, sugar free pudding. 12:53 pm- blood sugar is 285. Pt reports he feels cold and shaky. Risa reports sister asked her to call dr to see what dr recommends. Risa reports pt's blood sugars are usually in the 200's so 86 and 104 were actually low for pt. Please review and advise. Jaimie Dobbs LPN documented in this encounterBluffton Hospital02-27-2023 Miscellaneous Notes* Telephone Encounter - Kari Yang Ma - 10/03/2022 4:35 PM EST Patient notified. * Telephone Encounter - Vera Manrique MD - 10/03/2022 4:30 PM EST Take the 20 units of lantus now And take 4 units of humalog every time he eats. Regards, Vera Manrique MD * Telephone Encounter - Terrie Telles LPN - 10/03/2022 1:51 PM EST Risa patient home health aide calling patient was in [facility] ER last evening blood sugar was 547. Patient said he was given 2 bags IV fluid and insulin per the IV he is not sure what was given. This morning his blood sugar at 844 am was 340 he took his 2 units Humalog with breakfast, at 1130 am blood sugar was 338 patient took his 2 units Humalog with lunch. At 130 pm blood sugar checked and is 414. Patient usually takes his Lantus 20 units at bedtime. Patient asking what does PCP want him to do? Please advise documented in [facility] Hospital Discharge instructions Additional Instructions Remember to take your medications as previously directed. You may want to check your blood sugar or eat something prior to taking your long acting insulin tonight. You may be better off holding it until the morning, so as not to bottom out your sugars as it was only 180 prior to your discharge tonight.[facility] Work Phone: [phone] 313-721702-26-[address] Reinoso [facility] October 03, 2022 12:06am Note Date/Time October 02, 2022 7:55pm [facility] Medical Records Department [address] [place] [address] Emergency Department Summary 10/02/22 MR#: [id number] Acct: [id number] Name: LOU JULIEN Rep #:[id number] : 1955 66 From: Jase Reinoso MD PCP: Dr. Vera Manrique MD Status:REG E R Location: ED HPI History of Present Illness Chief Complaint: Hyperglycemia Narrative Narrative: 66-year-old male past medical history of hypertension, hyperlipidemia, insulin-dependent diabetes presents with elevated blood sugar this afternoon. His sister, who is his power of criminal defense attorney for medical care states that she got a callfrom his friend that his blood sugar was elevated at 547 around 4:00 in the afternoon, almost 4 hours ago. He denies any nausea or vomiting, no diarrhea, no abdominal pain, no fevers or chills. Admittedly, he states that he usually takes 2 to 4 units of insulin 3 times a day, and takes a long-acting insulin at night, 20 units. Last evening, he forgot to take his insulin. He had beans fordinner, and is concerned about his elevated blood sugars. [facility] Medical History Ambulates with cane Cardiology follow-up encounter Complete heart block (02/2019) COVID CVA (cerebral vascular accident) (02/2019) Diabetes Diabetes mellitus Dietary restriction DVT (deep venous thrombosis) Essential (primary) hypertension Former smoker High cholesterol History of echocardiogram History of edema History of renal disease History of stress test HLD (hyperlipidemia) Irregular heart beat Kidney disease Migraines Pacemaker Paroxysmal supraventricular tachycardia (06/2017) Sick sinus syndrome Sinus pause Stroke/cerebrovascular accident Syncope Tachyarrhythmia Type II diabetes mellitus, uncontrolled Wears glasses Home Medications atorvastatin 80 mg tablet 80 mg PO DAILY cholesterol 03/04/19 [History Last Taken 03/11/22] metoprolol succinate 100 mg tablet,extended release 24 hr 100 mg PO DAILY heart rate 04/25/19 [History Last Taken 03/11/22] multivitamin (Daily-Yousuf tablet) 1 tab PO DAILY SUPPLEMENT 03/11/22 [History Last Taken 03/11/22] tamsulosin 0.4 mg capsule (Flomax) 0.4 mg PO QHS PROSTATE 03/11/22 [History Last Taken 03/10/22] ascorbic acid (vitamin C) 500 mg tablet (Vitamin C) 500 mg PO BID 30 days #60 tabs 03/22/22 [Rx Last Taken Unknown] ferrous sulfate 325 mg (65 mg iron) tablet 325 mg PO BID 30 days #60 tabs 03/22/22 [Rx Last Taken Unknown] hydralazine 50 mg tablet 100 mg PO TID 30 days #180 tabs 03/22/22 [Rx Last Taken Unknown] hydrocodone-acetaminophen 5-325mg 5mg-325mg 1 tab PO Q6H PRN PRN Pain 3 days #12TABLETS 04/10/22 [Rx Last Taken Unknown] magnesium hydroxide 400 mg/5 mL oral suspension (Milk of Magnesia) 30 ml PO DAILY PRN Constipation 04/10/22 [History Last Taken Unknown] mineral oil 118 ml UT DAILY PRN Constipation 04/10/22 [History Last Taken Unknown] pyridoxine (vitamin B6) 50 mg tablet 50 mg PO BID 04/10/22 [History Last Taken Unknown] lactulose 20 gram/30 mL oral solution 20 g (30 mL) PO BID #1,200 mL 06/15/22 [Rx Last Taken Unknown] insulin glargine 100 unit/mL subcutaneous cartridge 30 unit subcut QPM 07/28/22 [History Last Taken Unknown] metoclopramide HCl 5 mg tablet (Reglan) 5 mg PO Q6H PRN nausea and vomiting #20 tabs 09/14/22 [Rx Last Taken Unknown] Allergy/AdvReac Type Severity Reaction Status Date / Time metformin [From Glucophage] AdvReac Diarrhea Verified 10/02/22 19:20 Family History Mother Cancer Father Heart disease Hypertension Myocardial infarction Surgical History History of carpal tunnel release History of permanent cardiac pacemaker placement (03/05/19) Social History household members: none Smoking Status: Former smoker Smokeless tobacco user: other alcohol intake: never substance use type: does not use ROS ROS ED ROS Narrative Constitutional: No fever, no chills. Elevated blood sugars. HEENT: No sore throat. No neck pain. No loss of vision. No rhinorrhea. Cardiovascular: No chest pain. No palpitations. No pedal edema. Respiratory: No cough, no shortness of breath. Abdominal: No abdominal pain. No nausea. No vomiting. Genitourinary: No dysuria. No hematuria. Musculoskeletal: No myalgias. No arthralgias. Neurologic: No headaches. No dizziness. No lightheadedness. Skin: No rash. No change in color. Psychiatric: No depression. No anxiety. EXAM Physical Exam Narrative Exam Narrative: Afebrile. Vital signs noted. HEENT: Normocephalic. Atraumatic. PERRL, EOMI. Neck soft and supple. No pointtenderness or step off. Cardiovascular: Regular rate and rhythm. No murmurs, rubs, or gallops appreciated. Respiratory: No tachypnea. Lungs clear to auscultation bilaterally. Gastrointestinal: Abdomen soft, nontender, with normoactive bowel sounds. No rebound or guarding. Neurological: Awake. Alert. Oriented. Nonfocal, nonlateralizing. Skin: No rash. Normal color. No pallor. Musculoskeletal: No pedal edema. Full range of motion extremities. Const Vital Signs: 10/02/22 19:18 10/02/22 20:09 10/02/22 23:29 Temperature 97.3 F L Temperature Source Temporal Pulse Rate 73 Respiratory Rate 16 Respiratory Effort Normal Respiratory Pattern Normal Blood Pressure 174/84 H Blood Pressure Mean 114 Pulse Ox 98 99 Oxygen Delivery Method Room Air Room Air MDM MDM MDM Narrative Medical decision making narrative: Given his reported elevated blood sugar, I think this is secondary to his not taking his medications correctly. There is been no recent change in his medications. In order to rule out diabetic ketoacidosis, patient will be bolused IV fluids 1 L of normal saline, and BGT along with CMP, acetone, and CBCwill be obtained. I reviewed the patient's laboratory work. CBC demonstrates normal WBC count of 5.5, hemoglobin stable at 9.0, hematocrit 27.0. Platelet count normal at 220. Of most significance is his CMP which shows creatinine of 2.21 with BUN of 32, glucose elevated at 451 with a normal anion gap of 8. Serum ketones are negative. I do not feel that he is in diabetic ketoacidosis. Urinalysis is negative for infection and negative for ketones. He was administered IV fluids and 10 units of regular insulin. Repeat blood sugar is now 183. I feel he be discharged safely home with follow- up to his primary care provider. He is to call tomorrow. So as not to bottom out his sugar tonight because he lives alone, he was told to hold off on using his long acting insulin, and start againtomorrow with 2 units of insulin after eating. He will call his primary care physician. He was instructed to take his medication as previously directed started tomorrow morning. I feel he can be discharged safely home with follow-up. Return instructions were reviewed. Disposition is discharged home in stable condition. Lab Data Attestation: I reviewed the patient's lab results. Labs: Laboratory Results - last 24 hr 10/02/22 10/02/22 10/02/22 20:10 20:10 20:10 WBC 5.5 RBC 3.21 L Hgb 9.0 L Hct 27.0 L MCV 84.1 MCH 28.0 MCHC 33.3 RDW Std Deviation 39.4 RDW Coeff of Harry 13.0 Plt Count 220 MPV 9.4 Immature Gran % (Auto) 0.900 Neut % (Auto) 58.0 Lymph % (Auto) 28.4 [place] % (Auto) 8.1 Eos % (Auto) 4.2 Baso % (Auto) 0.4 Absolute Neuts (auto) 3.2 Absolute Lymphs (auto) 1.57 Nucleated RBC % 0 Sodium 136 Potassium 3.9 Chloride 105 Carbon Dioxide 23.0 Anion Gap 8 BUN 32 H Creatinine 2.21 H Estim Creat Clear Calc 33.77 Est GFR (MDRD) Af Amer 39 L Est GFR (MDRD) Non-Af 32 L BUN/Creatinine Ratio 14.5 Glucose 451 H* Calcium 8.4 L Total Bilirubin 0.30 AST 11 L ALT 21 Alkaline Phosphatase 126 H Total Protein 6.3 L Albumin 2.9 L Globulin 3.4 Albumin/Globulin Ratio 0.9 Urine Color Urine Clarity Urine pH Ur Specific [place] Urine Protein Urine Glucose (UA) Urine Ketones Urine Occult Blood Urine Nitrite Urine Bilirubin Urine Urobilinogen Ur Leukocyte Esterase Urine RBC Urine WBC Ur Squamous Epith Cells Urine Bacteria Urine Mucus Acetone Level NEGATIVE POC Glucose 10/02/22 10/02/22 22:16 23:27 WBC RBC Hgb Hct MCV MCH MCHC RDW Std Deviation RDW Coeff of Harry Plt Count MPV Immature Gran % (Auto) Neut % (Auto) Lymph % (Auto) [place] % (Auto) Eos % (Auto) Baso % (Auto) Absolute Neuts (auto) Absolute Lymphs (auto) Nucleated RBC % Sodium Potassium Chloride Carbon Dioxide Anion Gap BUN Creatinine Estim Creat Clear Calc Est GFR (MDRD) Af Amer Est GFR (MDRD) Non-Af BUN/Creatinine Ratio Glucose Calcium Total Bilirubin AST ALT Alkaline Phosphatase Total Protein Albumin Globulin Albumin/Globulin Ratio Urine Color Yellow Urine Clarity Clear Urine pH 6.0 Ur Specific [place] 1.015 Urine Protein 500 H Urine Glucose (UA) 1000 H Urine Ketones Negative Urine Occult Blood 25 H Urine Nitrite Negative Urine Bilirubin Negative Urine Urobilinogen Normal Ur Leukocyte Esterase Negative Urine RBC 0 SEEN Urine WBC 0-5 SEEN Ur Squamous Epith Cells 0-5 SEEN Urine Bacteria 0 SEEN Urine Mucus 0 SEEN Acetone Level POC Glucose 183 H Discharge Plan Triage Chief Complaint: Hyperglycemia ED Provider: Jase Reinoso Dx/Rx/DC Orders Clinical Impression: Hyperglycemia, Patient forgets to take medication Instructions: ED Diabetic Hyperglycemia Prescriptions: No Action lactulose 20 gram/30 mL solution 20 g PO BID Qty: 1200 3RF atorvastatin 80 MG tablet 80 mg PO DAILY metoprolol succinate 100 MG tablet extended release 24 hr 100 mg PO DAILY multivitamin [Daily-Yousuf] Tablet 1 tab PO DAILY tamsulosin [Flomax] 0.4 mg capsule 0.4 mg PO QHS hydralazine 50 mg Tablet 100 mg PO TID 30 Days Qty: 180 0RF ferrous sulfate 325 mg (65 mg iron) tablet 325 mg PO BID 30 Days Qty: 60 0RF ascorbic acid (vitamin C) [Vitamin C] 500 mg tablet 500 mg PO BID 30 Days Qty: 60 0RF mineral oil [Enema] Enema 118 ml UT DAILY PRN (Reason: Constipation) Rx Instructions: discard any unused portion magnesium hydroxide [Milk of Magnesia] 400 mg/5 mL Suspension 30 ml PO DAILY PRN (Reason: Constipation) pyridoxine (vitamin B6) 50 mg Tablet 50 mg PO BID hydrocodone-acetaminophen [hydrocodone-acetaminophen] 5-325 mg tablet 1 tab PO Q6H PRN PRN (Reason: Pain) 3 Days Qty: 12 0RF Lantus U-100 Insulin 100 unit/mL Cartridge 30 unit SUBCUT QPM metoclopramide HCl [Reglan] 5 mg tablet 5 mg PO Q6H PRN (Reason: nausea and vomiting) Qty: 20 0RF Primary Care Provider: Vera Manrique Referrals: Vera Manrique MD [Primary Care Provider] - 1 Day Activity Restrictions/Additional Instructions: Remember to take your medications as previously directed. You may want to checkyour blood sugar or eat something prior to taking your long acting insulin tonight. You may be better off holding it until the morning, so as not to bottom out your sugars as it was only 180 prior to your discharge tonight. Disposition Disposition: Home, Self Care What to do if you have Problems For any increased pain, shortness of breath, bleeding, nausea or vomiting, chestpain, or any unexpected problems, contact your Primary Care Provider. Call [facility] ([phone]) or report to the closest Emergency Room. Call 911 if necessary. 10/03/225 <Electronically signed by Jase Reinoso MD> Cosigner Signature (if applicable): CC: Dr. Vera Manrique MD ~ Signed [facility] Work Phone: 1(795) 244-235302-26-2023 Miscellaneous Notes* Telephone Encounter - Laurie Robb RN - 10/02/2022 6:38 PM EST Patient sister calling, not currently with patient, inquiring if patient really needs to go to the ER or not. Patient was triaged by nurse consulting psychiatrist an hour ago and given recommendation to go to the ERfor hyperglycemia. Informed sister that patient should follow recommendation of previous nurse consulting psychiatrist. Verbalizes understanding. documented in this encounterBluff[facility]02-26-[facility]23 Miscellaneous Notes* Telephone Encounter - Enoc Petit RN - 10/02/2022 5:17 PM EST Reason for Call: High blood sugar Outcome: Pt agreed to go to ED now. Reason for Disposition Blood glucose > 500 mg/dL (27.8 mmol/L) Answer Assessment - Initial Assessment Questions 1. BLOOD GLUCOSE: What is your blood glucose level? 547 around 1700 today, 537 around 1600 today 2. ONSET: See above 3. USUAL RANGE: What is your glucose level usually? 200 4. KETONES: Not checked 5. TYPE 1 or 2: Type 2 6. INSULIN: Yes, Lispro and lantus via insulin pens 7. DIABETES PILLS: Pt not sure 8. OTHER SYMPTOMS: None 9. HYDRATION: Little bit of tea and two bottles of water today Protocols used: Diabetes - High Blood [id number] documented in this encounterBluffton Hospital02-15-2023 Miscellaneous Notes* Telephone Encounter - Oliva Luis RN - 09/21/2022 1:32 PM EST Last Office Visit: 09/20/2022 Future Office Visit: 10/19/2022 Requested Prescriptions Pending Prescriptions Disp Refills alcohol swabs (ALCOHOL PREP PADS) 100 Each 3 Sig: Apply 1 application to affected area once daily with insulin injection aspirin, enteric coated (ADULT LOW DOSE ASPIRIN) 81 mg EC tablet 28 tablet 11 Sig: Take 1 tablet by mouth every morning. hydrALAZINE (APRESOLINE) 50 mg tablet 90 tablet 3 Sig: Take 1 tablet by mouth every 8 hours. Senna 8.6 mg tab 60 tablet 5 Sig: Take 1 tablet by mouth twice daily. Date of Last Labs: documented in this encounterBluffton Hospital02-14-2023 Instructions* Patient Instructions* Vera Manrique MD - 09/20/2022 3:46 PM EST Check sugars fasting and 2 hours post meals and bed time. Please keep a log of it. Lantus 20 units at morning and humalog 2 units with every meal. documented in this encounterBluffton Hospital02-14-2023 History of Present illness Narrative* Vera Manrique MD - 09/20/2022 3:14 PM EST Reason for Visit Patient presents with: ED Follow-up: elevated bld sugar over 600 and this am over 400 Lou Julien is a 66 year old male who presents here today for Above Complaints.. Health Maintenance COVID-19 VACCINE(1) SHINGRIX VACCINE(1 of 2) PNEUMOCOCCAL(2 - PCV) DILATED RETINAL EXAM COLORECTAL CANCER SCREENING INFLUENZA(1) DIABETIC FOOT EXAM URINE ALBUMIN:CREATININE RATIO LDL CHOLESTEROL SERUM CREATININE DEPRESSION ASSESSMENT HPI Patient is here with his sister. He has a history of right thalamic infarction, very poorly controlled diabetes, mentally challengedand unable to do his medication, he has psoriasis, DDD of the spine, notes of basilar artery stenosis, physical deconditioning. He also has hypertension and hyperlipidemia 2 weeks ago he was in the office because he wanted the hospital bed as his bed was left-sided and he could not buy a new one and he was falling and injuring himself Got his hospital bed delivered and he is not falling from bed now. Was in the ER a few days ago for sugars above 500. ED said he was not taking his Lantus because he did not have the needles to inject himself. Sister who is here who helps did not know that he was supposed to be on Lantus. Patient is really not able to take his medications. He needs constant reminding for his ADL's and cannot do any of his IADL's. We discussed again today in length with the sister the importance of keeping him in a prison. Currently nursing comes once a day and she is it for couple hours. She takes his sugars and make sure he takes his insulin. He says he eats when she isthere and takes his morning meds which come in the pill pack. The rest of the day there is no account of what he does. He eats inconsistently.. She also helps him with laundry and other work. He looks much better today and not as disheveled as the last time. The nurses aide come 24 days a week the last 3 days he gets a call from his sister. Patient is not very reliable in his information. He often says he does things and he actually is not doing. He needs to see a pharmacist to help with diabetes but as of now it is sugars in the range of 405 100 I will increase his Lantus to 20 and started him on mealtime insulin. Every time he eats he is supposed to take 2 units. I also asked him and his sister to keep a log of his sugars. He has to checkhis sugars 4 times a day. He may benefit from the CGM but I do not think he has the mental capacityto sink to his phone and to follow the readings. No problem-specific Assessment & Plan notes found for this encounter. 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 Dyslipidemia Essential hypertension, benign Family history of malignant neoplasm of gastrointestinal tract Non-proliferative diabetic retinopathy, mild, both eyes ([facility]) 10/11/2017 Non-proliferative diabetic retinopathy, moderate, both eyes ([facility]) 10/14/2019 Other specific developmental learning difficulties Pneumonia 07/07/15 Dx at [facility] ER Psoriasis and similar disorders Pure hypercholesterolemia Pure hyperglyceridemia Right thalamic infarction ([facility]) 02/18/2019 [facility] Stenosis of carotid artery Stroke ([facility]) Tietze's disease Tinea unguium 12/01/2017 Type II or unspecified type diabetes mellitus with neurological manifestations, not stated as uncontrolled(250.60) PAST SURGICAL HISTORY Procedure Laterality Date COLONOSCOPY FLX DX W/COLLJ SPEC WHEN PFRMD 2017 repeat 3 years ESOPHAGOGASTRODUODENOSCOPY TRANSORAL DIAGNOSTIC 2017 EGD LAPAROSCOP GASTRIC BYPASS N/A NEUROPLASTY &/TRANSPOS MEDIAN NRV CARPAL TUNNE 05/08/12 Carpal tunnel decomp right PACEMAKER 03/04/2019 PAST SURGICAL HISTORY OF EGD PAST SURGICAL HISTORY OF Colonsocopy FAMILY HISTORY Problem Relation Age of Onset Stroke Mother Hypertension Mother Colon Cancer Mother Heart Father [place] No Known Problems Sister Cancer Sister Social History Tobacco Use Smoking status: Former Types: Cigars Smokeless tobacco: Never Tobacco comments: quit 1994 Vaping Use Vaping Use: Never used Substance Use Topics Alcohol use: No Drug use: No Past medical history, appointments, medications, allergies reviewed. Pertinent Lab/Diagnostic Studies are reviewed and discussed today Current Outpatient Medications: tamsulosin (FLOMAX) 0.4 mg Insulin [place], Disposable, (BD ULTRA-FINE LUIS PEN NEEDLE) 32 gauge x 5/32 Lancets lancets MEDICAL SUPPLY traZODone (DESYREL) 50 mg tablet insulin glargine (LANTUS SOLOSTAR U-100 INSULIN) 100 unit/mL (3 mL) hydrALAZINE (APRESOLINE) 50 mg tablet clopidogrel (PLAVIX) 75 mg tablet glimepiride (AMARYL) 2 mg tablet atorvastatin (LIPITOR) 80 mg tablet amLODIPine (NORVASC) 10 mg tablet metoprolol succinate ER (TOPROL XL) 100 mg multivitamin (DAILY-YOUSUF) tablet blood sugar diagnostic (BLOOD GLUCOSE TEST) test strip Blood-Glucose Meter lidocaine (SALONPAS) 4 % patch senna (SENNA) 8.6 mg tab aspirin, enteric coated (ADULT LOW DOSE ASPIRIN) 81 mg EC tablet Blood Pressure Monitor melatonin 3 mg tablet glucose (DEX4 GLUCOSE) 4 gram chewable tablet triamcinolone (KENALOG) 0.025 % lotn polyethylene glycol 3350 (MIRALAX, GLYCOLAX) 17 gram/dose powder alcohol swabs (ALCOHOL PREP PADS) padm Lancing Device (LANCING DEVICE WITH LANCETS) misc COMPOUNDED PRESCRIPTION Syringe with Needle, Safety (BD INTEGRA) 3 mL 22 x 1 1/2 syrg Review of Systems CONSTITUTIONAL: No fevers, chills night sweats, unintended weight loss CARDIOVASCULAR: No chest pain, dyspnea, palpitations, orthopnea, PND, ankle edema. PULM: No dyspnea, unexplained cough. GI: No dysphagia/odynophagia, problematic reflux, constipation, diarrhea, changes in stool habits, hematochezia, melena. : No new urinary complaints, including dysuria, gross hematuria or pyuria. NEURO: No new balance problems, peripheral weakness/paresthesias or numbness of concern. Physical Exam BP 108/50 (BP Site: Right Arm, BP Position: Sitting, BP Cuff Size: Large Adult) Pulse 87 Temp 36.1 C (96.9 F) Resp 12 Ht 175.3 cm (5' 9) Wt 71.2 kg (157 lb) SpO2 98% BMI 23.18 kg/m General appearance: Well appearing, alert, in no acute distress, well nourished. Skin: Skin color, texture, turgor normal, no suspicious rashes or lesions Head: Normocephalic, no masses, lesions, tenderness or abnormalities Eyes: Anicteric sclera. Pupils are equally round and reactive to light. Extraocular movements are intact. Lungs: Lungs clear to auscultation. No wheezing, rhonchi, rales Heart: RRR without murmur, gallop, or rubs. Extremities: No deformities, edema, skin discoloration, clubbing or cyanosis. Good capillary refill. ASSESSMENT/PLAN: 1. Uncontrolled type 2 DM with hyperosmolar nonketotic hyperglycemia (HCC) - ICD9: 250.22, ICD10: E11.00 (primary diagnosis) I increase the Lantus and put him on mealtime insulin. Family was notified that he is on Lantus. They did not know and prior to that he said he did not have needles to inject himself. He was supposedto be taking the Lantus. But there was some confusion about his previous nurse aide who was just coming in and doing her work and he was not getting cared for. - CONSULT TO PHARMACY 2. Insomnia, unspecified type - ICD9: 780.52, ICD10: G47.00 - TRAZODONE 50 MG TABLET 3. Diabetic polyneuropathy associated with type 2 diabetes mellitus (HCC) - ICD9: 250.60, 357.2, ICD10: E11.42 Controlled. - CONSULT TO PHARMACY 4. Pure hypercholesterolemia - ICD9: 272.0, ICD10: E78.00 Refill medication - ATORVASTATIN 80 MG TABLET 5. Uncontrolled hypertension - ICD9: 401.9, ICD10: I10 Blood pressure is well controlled today 6. Type 2 diabetes mellitus with stage 3b chronic kidney disease, with long-term current use of insulin (HCC) - ICD9: 250.40, 585.3, V58.67, ICD10: E11.22, N18.32, Z79.4 - INSULIN GLARGINE (U-100) 100 UNIT/ML (3 ML) SUBCUTANEOUS PEN Vera Manrique MD documented in this encounterBluffton Hospital02-14-2023 Nurse Note* Flora Riddle LPN - 09/20/2022 3:06 PM EST Blood sugars: 09/18/2022 8:30am 584 9:36 am 478 09/19/2022 8:45am 467 9:37am 421 09/20/2022 8:33am 402 insulin around 8:35am 12units 9:30am 445 Accompanied by Sister : Suki documented in this encounterBluffton Hospital02-14-2023 Miscellaneous Notes* Telephone Encounter - Matilde Healy LPN - 09/20/2022 9:38 AM EST Livier khanh Grey called to follow up on refill request. Verified name and date of . Matilde Healy LPN documented in this encounterBluffton Hospital02-08-[address] Luis [facility] September 14, 2022 5:10pm Note Date/Time September 14, 2022 1 1:17am [facility] Medical Records Department [address] [place] [address] Emergency Department Summary 09/14/22 MR#: [id number] Acct: [id number] Name: LOU JULIEN Rep #:[id number] : 1955 66 From: Taisha Baez PCP: Dr. Vera Manrique MD Status:REG E R Location: ED HPI History of Present Illness Chief Complaint: Nausea/Vomiting Informant: patient and family Narrative Narrative: Patient is a 66-year-old male with history of hypertension, sick sinus syndrome,complete heart block status post permanent cardiac pacemaker, pneumonia, adult failure to thrive, diabetes, CKD 3 and hyperlipidemia presenting from home for nausea, vomiting and hyperglycemia. His sister is at the bedside who is his medical POA however patient still makes his own decisions and does not have a legal guardian. Patient had a high blood sugar of 600 yesterday per the home health aide. Apparently had not been taking his Victoza because he thought it had and threw it out. His sister also takes Victoza and let him borrow her so he had a dose yesterday. Patient was up all night vomiting which they described as liquid. The home health aide called the sister this morning as they were concerned his lips looked a little bit more purple and he was tremulous so 911 was called and patient was sent to the ER. Patient is completely complaining of some nausea and feeling cold but no other complaints. No report of any fevers. Patient is some chronic constipation which is unchanged. [facility] Medical History (Updated 09/14/22 @ 16:[address] Taisha Luis, DO) Ambulates with [facility] Cardiology follow-up encounter Complete heart block (02/2019) COVID CVA (cerebral vascular accident) (02/2019) Diabetes Diabetes mellitus Dietary restriction DVT (deep venous thrombosis) Essential (primary) hypertension Former smoker High cholesterol History of echocardiogram History of edema History of renal disease History of stress test HLD (hyperlipidemia) Irregular heart beat Kidney disease Migraines Pacemaker Paroxysmal supraventricular tachycardia (06/2017) Sick sinus syndrome Sinus pause Stroke/cerebrovascular accident Syncope Tachyarrhythmia Type II diabetes mellitus, uncontrolled Wears glasses Home Medications atorvastatin 80 mg tablet 80 mg PO DAILY cholesterol 03/04/19 [History Last Taken 03/11/22] metoprolol succinate 100 mg tablet,extended release 24 hr 100 mg PO DAILY heart rate 04/25/19 [History Last Taken 03/11/22] multivitamin (Daily-Yousuf tablet) 1 tab PO DAILY SUPPLEMENT 03/11/22 [History Last Taken 03/11/22] tamsulosin 0.4 mg capsule (Flomax) 0.4 mg PO QHS PROSTATE 03/11/22 [History Last Taken 03/10/22] ascorbic acid (vitamin C) 500 mg tablet (Vitamin C) 500 mg PO BID 30 days #60 tabs 03/22/22 [Rx Last Taken Unknown] ferrous sulfate 325 mg (65 mg iron) tablet 325 mg PO BID 30 days #60 tabs 03/22/22 [Rx Last Taken Unknown] hydralazine 50 mg tablet 100 mg PO TID 30 days #180 tabs 03/22/22 [Rx Last Taken Unknown] hydrocodone-acetaminophen 5-325mg 5mg-325mg 1 tab PO Q6H PRN PRN Pain 3 days #12TABLETS 04/10/22 [Rx Last Taken Unknown] magnesium hydroxide 400 mg/5 mL oral suspension (Milk of Magnesia) 30 ml PO DAILY PRN Constipation 04/10/22 [History Last Taken Unknown] mineral oil 118 ml UT DAILY PRN Constipation 04/10/22 [History Last Taken Unknown] pyridoxine (vitamin B6) 50 mg tablet 50 mg PO BID 04/10/22 [History Last Taken Unknown] lactulose 20 gram/30 mL oral solution 20 g (30 mL) PO BID #1,200 mL 06/15/22 [Rx Last Taken Unknown] insulin glargine 100 unit/mL subcutaneous cartridge 30 unit subcut QPM 07/28/22 [History Last Taken Unknown] metoclopramide HCl 5 mg tablet (Reglan) 5 mg PO Q6H PRN nausea and vomiting #20 tabs 09/14/22 [Rx Last Taken Unknown] Allergy/AdvReac Type Severity Reaction Status Date / Time metformin [From Glucophage] AdvReac Diarrhea Verified 09/14/22 10:33 Family History Mother Cancer Father Heart disease Hypertension Myocardial infarction Surgical History History of carpal tunnel release History of permanent cardiac pacemaker placement (03/05/19) Social History household members: none Smoking Status: Former smoker Smokeless tobacco user: other alcohol intake: never substance use type: does not use ROS ROS ED Constitutional Constitutional ED: Reports chills; Denies fever(s) Eyes Eyes: Denies change in vision ENT ENT ED: Denies sore throat Cardiovascular Cardiovascular: Denies chest pain Respiratory/Chest Respiratory/Chest: Denies cough Gastrointestinal Gastrointestinal: Reports nausea and vomiting; Denies abdominal pain Musculoskeletal Musculoskeletal: Denies arthralgias or myalgias Integumentary Denies rash Neurologic Neurologic: Reports weakness; Denies headache(s) Psychiatric Psychiatric: Denies anxiety Hematologic/Lymphatic Hematologic/Lymphatic: Denies easy bleeding or easy bruising EXAM Physical Exam Const Vital Signs: 09/14/22 10:33 09/14/22 12:15 09/14/22 14:56 Temperature 98.7 F Temperature Source Temporal Pulse Rate 98 94 87 Respiratory Rate 22 H 24 H 16 Blood Pressure 156/83 H 146/84 H 172/88 H Blood Pressure Mean 107 104 116 Pulse Ox 100 95 95 Oxygen Delivery Method Room Air Room Air Room Air Constitutional Narrative: Chronically ill-appearing General Appearance ED: BERNARDO NESS Reports TM's clear and dry mucous membranes Negative for trauma Tympanic Membrane ED: Yes TM's clear Mouth ED: Yes dry mucous membranes Mouth: dry mucous membranes Eyes PERRL and EOMs intact bilaterally Neck supple and no JVD Neck Narrative: No meningeal signs Chest Wall inspection of chest normal Resp normal respiratory effort and clear to auscultation bilaterally Cardio regular rate, regular rhythm and no murmurs GI normal to inspection, nondistended, normoactive bowel sounds and non-tender Palpation: Negative for tender or guarding Back/Spine no CVA tenderness Extremity normal to inspection General Extremety ED: Negative for edema or tenderness General Extremity: Negative for edema Neuro oriented x3 Neuro Narrative: No focal deficits appreciated Sensorium / Orientation: alert Motor Exam: general weakness Psych mental status grossly normal Skin no rashes or lesions noted and no wounds MDM MDM MDM Narrative Medical decision making narrative: Patient is a 66-year-old male presenting with nausea, vomiting and hyperglycemia. Patient stopped taking his Victoza because he ran out/threw it out. His blood sugar yesterday was 600. Differential included but not limited to hyperglycemia, DKA, HH NK, pancreatitis, small bowel obstruction, dehydration and infection. Patient is given IV Zofran as well as IV fluids with significant improvement of symptoms. He is found to likely be hemoconcentrated with a hemoglobin of 10.8 which is above his baseline of 7.5. Patient's CMP is remarkable for chronicallyelevated creatinine of 2.86 which is near his baseline of 2.5. Patient does notmeet criteria for VENICE. His sodium was mildly low at 135 and his glucose is elevated at 531. His anion gap is 14. Lipase is normal at 157. Acetone is negative and his VBG showed a mild metabolic alkalosis with chronic metabolic acidosis. Given his elevated alkaline phosphatase with nausea and vomiting an ultrasound of the right upper quadrant is obtained which does show 8 mm x 8 mm x8 mm gallbladder polyp. No findings since with acute cholecystitis. Patient matthias have tenderness in his right upper quadrant. He is informed of this finding and given surgery for outpatient follow-up. Patient is now feeling much better and states he would like to go home. He is given a second liter of IV fluid. He does not meet criteria for DKA or HHNK as he is not acidotic, has no ketosis and has a normal anion gap. His calculated serum osmolality is 315 which is below the threshold for hyperosmolar hyperglycemia nonketotic state given that patient now has his medication take at home I think he can be discharged home. After fluid his blood sugar is 401 and he is given 10 units of insulin. Patientis quite agreeable this plan. His EKG did show prolonged QTc so he will be discharged home with Reglan instead of Zofran. Patient and his sister are agreeable this plan of care. Patient is tolerating p.o. in the ER. He is no further vomiting and I have a low suspicion for small bowel obstruction. He hasactive bowel sounds and is nondistended. Lab Data Attestation: I reviewed the patient's lab results. Labs: Laboratory Results - last 24 hr 09/14/22 09/14/22 09/14/22 11:20 11:20 11:20 WBC 10.6 RBC 3.95 L Hgb 10.8 L Hct 31.6 L MCV 80.0 MCH 27.3 MCHC 34.2 RDW Std Deviation 37.8 RDW Coeff of Harry 13.2 Plt Count 280 MPV 10.6 Immature Gran % (Auto) 1.500 H Neut % (Auto) 81.0 H Lymph % (Auto) 12.1 L [place] % (Auto) 4.4 Eos % (Auto) 0.7 Baso % (Auto) 0.3 Absolute Neuts (auto) 8.6 H Absolute Lymphs (auto) 1.29 Nucleated RBC % 0 Sodium 135 L Potassium 4.4 Chloride 93 L Carbon Dioxide 28.0 Anion Gap 14 BUN 44 H Creatinine 2.86 H Estim Creat Clear Calc 25.24 Est GFR (MDRD) Af Amer 29 L Est GFR (MDRD) Non-Af 24 L BUN/Creatinine Ratio 15.4 Glucose 531 H* Calcium 9.8 Total Bilirubin 0.70 AST 16 ALT 21 Alkaline Phosphatase 174 H Total Protein 7.2 Albumin 3.2 Globulin 4.0 Albumin/Globulin Ratio 0.8 L Lipase 157 Urine Color Urine Clarity Urine pH Ur Specific [place] Urine Protein Urine Glucose (UA) Urine Ketones Urine Occult Blood Urine Nitrite Urine Bilirubin Urine Urobilinogen Ur Leukocyte Esterase Urine RBC Urine WBC Ur Squamous Epith Cells Urine Bacteria Urine Mucus Acetone Level NEGATIVE POC Glucose 09/14/22 09/14/22 09/14/22 11:50 14:13 15:55 WBC RBC Hgb Hct MCV MCH MCHC RDW Std Deviation RDW Coeff of Harry Plt Count MPV Immature Gran % (Auto) Neut % (Auto) Lymph % (Auto) [place] % (Auto) Eos % (Auto) Baso % (Auto) Absolute Neuts (auto) Absolute Lymphs (auto) Nucleated RBC % Sodium Potassium Chloride Carbon Dioxide Anion Gap BUN Creatinine Estim Creat Clear Calc Est GFR (MDRD) Af Amer Est GFR (MDRD) Non-Af BUN/Creatinine Ratio Glucose Calcium Total Bilirubin AST ALT Alkaline Phosphatase Total Protein Albumin Globulin Albumin/Globulin Ratio Lipase Urine Color Yellow Urine Clarity Clear Urine pH 7.0 Ur Specific [place] 1.010 Urine Protein 500 H Urine Glucose (UA) 1000 H Urine Ketones 5 H Urine Occult Blood 25 H Urine Nitrite Negative Urine Bilirubin Negative Urine Urobilinogen Normal Ur Leukocyte Esterase Negative Urine RBC 0 SEEN Urine WBC 0-5 SEEN Ur Squamous Epith Cells 0-5 SEEN Urine Bacteria 0 SEEN Urine Mucus 0 SEEN Acetone Level POC Glucose 470 H* 401 H ABG Data ABG results: ABG 09/14/22 12:21 Specimen Type MALLORIE VBG pH 7.48 H VBG pO2 54 H VBG HCO3 28 H VBG Total CO2 30 VBG O2 Sat (Calc) 90 H VBG Base Excess 5 H POC Mix VBG pCO2 Pt Tmp 38.1 L O2 Delivery Device Room Air Radiography Chest X-Ray - ED: 1 View, Read by ED Physician, Read by Radiologist and No AcuteDisease Diagnostic Testing: Clinical Impression(s) from Imaging Studies Chest X-Ray 09/14/22 11:22 IMPRESSION: No acute abnormality is seen. Electronically Signed: Joseph Denton MD at 12:07 EST , Gallbladder Ultrasound 09/14/22 12:25 IMPRESSION: 8mm by 8mm by 8 mm gallbladder polyp. Electronically Signed: Joseph Denton MD at 13:54 EST , Rhythm Strip Rhythm Strip: Sinus Tach Rate: 101 Ectopy: None EKG Initial EKG: Attestation: I personally reviewed and interpreted this EKG as follows: Interpretation: Sinus Tachycardia Comments: Sinus tachycardia at a rate of 101 bpm First-degree AV block with UT interval of 220 Left axis deviation Minimal voltage criteria for LVH Nonspecific ST changes Prolonged QTc of 557 Compared to prior EKG patient has a prolonged QTc Discharge Plan Triage Chief Complaint: Nausea/Vomiting Other Complaint: Hyperglycemia ED Provider: Taisha Luis Dx/Rx/DC Orders Clinical Impression: Nausea and vomiting, Hyperglycemia, Insulin dependent diabetes mellitus, Dehydration, Gallbladder polyp Instructions: ED Diabetic Hyperglycemia, ED Vomiting (Adult) Prescriptions: New metoclopramide HCl [Reglan] 5 mg tablet 5 mg PO Q6H PRN (Reason: nausea and vomiting) Qty: 20 0RF No Action lactulose 20 gram/30 mL solution 20 g PO BID Qty: 1200 3RF atorvastatin 80 MG tablet 80 mg PO DAILY metoprolol succinate 100 MG tablet extended release 24 hr 100 mg PO DAILY multivitamin [Daily-Yousuf] Tablet 1 tab PO DAILY tamsulosin [Flomax] 0.4 mg capsule 0.4 mg PO QHS hydralazine 50 mg Tablet 100 mg PO TID 30 Days Qty: 180 0RF ferrous sulfate 325 mg (65 mg iron) tablet 325 mg PO BID 30 Days Qty: 60 0RF ascorbic acid (vitamin C) [Vitamin C] 500 mg tablet 500 mg PO BID 30 Days Qty: 60 0RF mineral oil [Enema] Enema 118 ml UT DAILY PRN (Reason: Constipation) Rx Instructions: discard any unused portion magnesium hydroxide [Milk of Magnesia] 400 mg/5 mL Suspension 30 ml PO DAILY PRN (Reason: Constipation) pyridoxine (vitamin B6) 50 mg Tablet 50 mg PO BID hydrocodone-acetaminophen [hydrocodone-acetaminophen] 5-325 mg tablet 1 tab PO Q6H PRN PRN (Reason: Pain) 3 Days Qty: 12 0RF Lantus U-100 Insulin 100 unit/mL Cartridge 30 unit SUBCUT QPM Primary Care Provider: Vera Manrique Referrals: Tiffanie Mckeon MD [Med Staff - Active Staff] - As Needed Nini Lo MD [Med Staff - Active Staff] - Activity Restrictions/Additional Instructions: Your labs were consistent with high blood sugar but no other significant abnormalities that are acute. Your alkaline phosphatase was mildly elevated which is a nonspecific finding. This led to your ultrasound of your gallbladderwhich did show a gallbladder polyp. You been referred to Dr. Mckeon, general surgery, for further evaluation of this. I do not think it is the cause of yourproblems today. Please follow-up with your primary care doctor and make sure you are taking all of your diabetic medications as prescribed. Return if you have progression or worsening of your symptoms. Disposition Disposition: Home, Self Care What to do if you have Problems For any increased pain, shortness of breath, bleeding, nausea or vomiting, chestpain, or any unexpected problems, contact your Primary Care Provider. Call [facility] ([phone]) or report to the closest Emergency Room. Call 911 if necessary. 09/14/22 1710 <Electronically signed by Taisha Luis DO> Cosigner Signature (if applicable): CC: Dr. Vera Manrique MD ~ Signed [facility] Work Phone: [phone] 444-895502-02-2023 History of Present illness Narrative* Vera Manrique MD - 09/08/2022 12:29 PM EST Reason for Visit Patient presents with: Falls: Falling at night getting out of bed, has fallen 3-4 times this past week Lou Julien is a 66 year old male who presents here today for Above Complaints.. Health Maintenance COVID-19 VACCINE(1) SHINGRIX VACCINE(1 of 2) PNEUMOCOCCAL(2 - PCV) DILATED RETINAL EXAM COLORECTAL CANCER SCREENING INFLUENZA(1) DIABETIC FOOT EXAM BP CONTROLLED (<130/80) URINE ALBUMIN:CREATININE RATIO LDL CHOLESTEROL SERUM CREATININE DEPRESSION ASSESSMENT HPI Here by himself, looks disheveled, but able to answer questions. His hair is not combed, very stained clothes, which are also dirty. He says he has an aid that comes 4 days a week, at around 8:30 in the morning. She cleans, does laundry for him Then he says she does it when he needs it done. She cleans her dishes he notes. Says he gets lunch from some place they bring it to her. He takes morning medication when she is there and takes the evening on his own, when I asked about insulin, he said he is not taking because he needs needles and swabs. Medication come prepackaged. [facility] contacted us for a need for bed. Patient has not side rails on his bed and he keeps falling out. Said he fell off 3/4 times the past. He is not sure why and how he rolls , but he rolls out of the bed, Patient notes his bed is lopsided and he rolls out, cannot afford to buy a new bed. No problem-specific Assessment & Plan notes found for this encounter. 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 Dyslipidemia Essential hypertension, benign Family history of malignant neoplasm of gastrointestinal tract Non-proliferative diabetic retinopathy, mild, both eyes ([facility]) 10/11/2017 Non-proliferative diabetic retinopathy, moderate, both eyes ([facility]) 10/14/2019 Other specific developmental learning difficulties Pneumonia 07/07/15 Dx at [facility] ER Psoriasis and similar disorders Pure hypercholesterolemia Pure hyperglyceridemia Right thalamic infarction (HCC) 02/18/2019 [facility] Stenosis of carotid artery Stroke ([facility]) Tietze's disease Tinea unguium 12/01/2017 Type II or unspecified type diabetes mellitus with neurological manifestations, not stated as uncontrolled(250.60) PAST SURGICAL HISTORY Procedure Laterality Date COLONOSCOPY FLX DX W/COLLJ SPEC WHEN PFRMD 2017 repeat 3 years ESOPHAGOGASTRODUODENOSCOPY TRANSORAL DIAGNOSTIC 2017 EGD LAPAROSCOP GASTRIC BYPASS N/A NEUROPLASTY &/TRANSPOS MEDIAN NRV CARPAL TUNNE 05/08/12 Carpal tunnel decomp right PACEMAKER 03/04/2019 PAST SURGICAL HISTORY OF EGD PAST SURGICAL HISTORY OF Colonsocopy FAMILY HISTORY Problem Relation Age of Onset Stroke Mother Hypertension Mother Colon Cancer Mother Heart Father IA No Known Problems Sister Cancer Sister Social History Tobacco Use Smoking status: Former Types: Cigars Smokeless tobacco: Never Tobacco comments: quit 1994 Vaping Use Vaping Use: Never used Substance Use Topics Alcohol use: No Drug use: No Past medical history, appointments, medications, allergies reviewed. Pertinent Lab/Diagnostic Studies are reviewed and discussed today Current Outpatient Medications: traZODone (DESYREL) 50 mg tablet glimepiride (AMARYL) 2 mg tablet atorvastatin (LIPITOR) 80 mg tablet amLODIPine (NORVASC) 10 mg tablet metoprolol succinate ER (TOPROL XL) 100 mg Insulin [place], Disposable, (BD ULTRA-FINE LUIS PEN NEEDLE) 32 gauge x 5/32 multivitamin (DAILY-YOUSUF) tablet blood sugar diagnostic (BLOOD GLUCOSE TEST) test strip Lancets lancets aspirin, enteric coated (ADULT LOW DOSE ASPIRIN) 81 mg EC tablet melatonin 3 mg tablet glucose (DEX4 GLUCOSE) 4 gram chewable tablet Lancing Device (LANCING DEVICE WITH LANCETS) misc COMPOUNDED PRESCRIPTION insulin glargine (LANTUS SOLOSTAR U-100 INSULIN) 100 unit/mL (3 mL) hydrALAZINE (APRESOLINE) 50 mg tablet clopidogrel (PLAVIX) 75 mg tablet Blood-Glucose Meter tamsulosin (FLOMAX) 0.4 mg lidocaine (SALONPAS) 4 % patch senna (SENNA) 8.6 mg tab Blood Pressure Monitor triamcinolone (KENALOG) 0.025 % lotn polyethylene glycol 3350 (MIRALAX, GLYCOLAX) 17 gram/dose powder alcohol swabs (ALCOHOL PREP PADS) padm Syringe with Needle, Safety (BD INTEGRA) 3 mL 22 x 1 1/2 syrg Review of Systems CONSTITUTIONAL: No fevers, chills night sweats, unintended weight loss CARDIOVASCULAR: No chest pain, dyspnea, palpitations, orthopnea, PND, ankle edema. PULM: No dyspnea, unexplained cough. GI: No dysphagia/odynophagia, problematic reflux, constipation, diarrhea, changes in stool habits, hematochezia, melena. : No new urinary complaints, including dysuria, gross hematuria or pyuria. NEURO: No new balance problems, peripheral weakness/paresthesias or numbness of concern. Physical Exam BP 124/62 Pulse 72 Temp 36.4 C (97.6 F) Resp 16 Wt 72.8 kg (160 lb 6.4 oz) SpO2 98% BMI23.69 kg/m General appearance: Appears disheveled his clothes are very stained and dirty and smells of urine Skin: Skin color, texture, turgor normal, no suspicious rashes or lesions Head: Normocephalic, no masses, lesions, tenderness or abnormalities Eyes: Anicteric sclera. Pupils are equally round and reactive to light. Extraocular movements are intact. Lungs: Lungs clear to auscultation. No wheezing, rhonchi, rales Heart: RRR without murmur, gallop, or rubs.y refill. ASSESSMENT/PLAN: 1. Recurrent falls - ICD9: V15.88, ICD10: R29.6 (primary diagnosis) Patient would best be served in [place] but he does not wish to be there so if trying to keep him safe in his own - MEDICAL SUPPLY 2. Uncontrolled type 2 diabetes mellitus with hypoglycemia without coma (HCC) - ICD9: 250.82, 251.2, ICD10: E11.649 I asked him to bring me all his medications, ordered blood work - Continue current medications - PEN NEEDLE, DIABETIC 32 GAUGE X 5/32 - LANCETS - HGB A1C - ALBUMIN/CREAT RATIO RND UR 3. Essential hypertension, benign - ICD9: 401.1, ICD10: I10 I requested the patient to bring me his medications to see if he has been taking - Recommended regular aerobic exercise. - Recommend home blood pressure monitoring, to bring results in on next visit - Goal of BP <130/80 Vera Manrique MD documented in [facility] encounterBluff[facility]01-26-[facility]23 Miscellaneous Notes* Telephone Encounter - Vera Manrique MD - 09/01/2022 8:29 AM EST Noted and agree * Telephone Encounter - Lizette Ramírez RN - 08/31/2022 4:31 PM EST [facility] calling on behalf of patient who is with territory service representative. She is requesting a hospital bed with siderails due to she says patient has fallen out of bed a couple of times in the past few months. He has not been in for OV since [facility]. Advised appointment needed. Scheduled first available that she is able to obtain transportation for him. Lizette Ramírez RN documented in this encounterBluffton Hospital10-27-2022 Miscellaneous Notes* Telephone Encounter - Rocky Argueta RN - 06/02/2022 8:37 AM EDT Pt called and is notified of providers message. Pt voices understanding. Rocky Argueta RN * Telephone Encounter - Vera Manrique MD - 06/01/2022 7:41 PM EDT Please let patient know that I sent trazodone for him. Regards, Vera Manrique MD * Telephone Encounter - Terrie Telles LPN - 06/01/2022 3:48 PM EDT Patient calling said he can not sleep, he does not drink caffeine or any screen time. He has tried melatonin 10 mg at bedtime not helping at all for past few months. Patient asking for sleeping pill rx, he uses [facility] for his pharmacy. Please advise documented in this encounterBluffton Hospital08-19-2022 Miscellaneous Notes* Telephone Encounter - Kari Yang Ma - 03/25/2022 12:48 PM EDT Patient has appointment with PCP Monday. Can address after appointment. * Telephone Encounter - Taco Tatum APRN.CNP - 03/25/2022 12:18 PM EDT Thank you. Please place hospital reports on providers desk when received. Thank you Taco Tatum APRN.CNP * Telephone Encounter - Kari Yang Ma - 03/25/2022 10:50 AM EDT Patient sister Suki is listed in the comments to contact with anything pertaining to patient. * Telephone Encounter - Taco Tatum APRN.CNP - 03/25/2022 8:23 AM EDT Is this patient's POA? 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 If not, she needs to contact [facility] where they can get verbal approval from patient to share information with her. Also please put hospital records on providers desk for further review. Thank you Taco Tatum APRN.CNP * Telephone Encounter - Rema Ness RN - 03/23/2022 10:21 AM EDT Patient's sister, Suki, phoned to report patient was in [facility] from Monday to (yesterday) and was discharged to [facility] last night. Suki reports [facility] never called her to let her know what is going on with patient. All she knows is he had covid. Reports patient can hardly talk. Asking pcp to review the hospital notes and let her know what is going on with him. documented in this encounterBluffton Hospital08-12-2022 [facility] H[facility]ORY & PHYSICAL NAME ACCOUNT SEX AGE ADMIT DISCHARGE PT MED. RECORD# NUMBER DATE DATE TYPE LOU JULIEN [id number] M 66 03/13/22 03/14/22 2 [id number] ROOM: [facility] DATE OF : 59 DICTATING PHYSICIAN: Orquidea Hussein HISTORY & PHYSICAL/DISCHARGE SUMMARY FINAL DIAGNOSES: 1. COVID-19 infection. 2. Generalized weakness. 3. Biliary sludge/gravel on CT scan. 4. Kidney disease. CHIEF COMPLAINT ON ADMISSION: Weakness. HISTORY OF PRESENT ILLNESS: This is a 66-year-old male with a past medical history significant for diabetes mellitus type 2, hypertension and previous stroke who has home health at home. He was just in [facility]. He states he was there on Monday overnight. He had not been feeling well. He woke up that morning tired and weak. No fever or chills. He was ruled out for COVID-19. He was discharged home. On Monday, he started to feel weak again. He had a dry cough. He was tired. Yesterday, he was weak. He fell. It took him about 15 minutes to get up. He called the ambulance and was brought to the Emergency Room. In the Emergency Room, he was positive for COVID-19. He did not have a pneumonia. He was not hypoxic. He does have a creatinine of 2.9 with no baseline. HOSPITAL COURSE: He was admitted for observation. This morning, he is requesting to go home. He does not want to go to any facility. He does not want to stay in the hospital. He wants to go home and take care of his cats. He denies any fever or chills. He states overall he feels better. He does not know all of his medical problems or medications, as home health sets out his medications. He does think that he is on a blood thinner, and he was taken off of aspirin. I am not sure if his home medication list is correct. PAST MEDICAL HISTORY: (1) Diabetes mellitus type 2. (2) Hypertension. (3) Previous stroke. (4) Angina. PAST SURGICAL HISTORY: Denies. MEDICATIONS: I am not sure this medication list is correct. According to his records, he is on: (1) Amlodipine 10 mg daily. (2) Aspirin 81 mg daily. (3) Atorvastatin 80 mg daily. (4) Plavix 75 mg daily. (5) Glimepiride 2 mg daily. (6) Hydralazine 50 mg every 8 hours. (7) Lantus 25 units twice daily. (8) Melatonin 3 mg q.p.m. (9) Metoprolol succinate 100 mg daily. (10) MiraLax 17 grams daily p.r.n. (11) Multivitamin one tablet Page 1 of 4 LOU JULIEN History & Physical LOU JULIEN :1955 daily. ALLERGIES: Metformin. FAMILY HISTORY: Father had 3 myocardial infarctions. Mother had lymph node cancer. He does not know the details. SOCIAL HISTORY: He lives at home. He lives in [place]. He has home health 4 to 5 days a week. He has 2 cats and no children. He does not smoke nor drink alcohol. 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 REVIEW OF SYSTEMS: He has had generalized weakness, fatigue, and a dry cough which is improving. No fever or chills. No abdominal pain. No nausea, vomiting, or bowel or bladder changes. PHYSICAL EXAMINATION GENERAL APPEARANCE: The patient is lying in bed in no acute distress. He is alert and cooperative. VITAL SIGNS: Blood pressure is 152/74, heart rate 65, respirations 20, temperature 99.4, and oxygen saturation 97% on room air. Weight is 177 pounds. BMI is 26.14. HEENT: Normocephalic and atraumatic. PERRLA. Conjunctivae are not injected. External pinna with no lesions. Nares are patent. Mouth and throat with no erythema and no exudates. NECK: Supple. No JVD. LUNGS: Normal respiratory effort, equal lung expansion, and clear to auscultation bilaterally. HEART: Regular rate and rhythm. ABDOMEN: Positive bowel sounds, soft and nontender. EXTREMITIES: Free of edema. NEUROLOGIC: He is alert and oriented to person and place. He does not know all of his medical problems or a list of his medications. He does have assistance at home. DIAGNOSTIC DATA: Laboratory data reviewed and on the chart. White count is 5, hemoglobin 8.7, and hematocrit 26.1 with low indices. Sodium is 134, potassium 4, BUN 46, creatinine 2.94, and glucose 175 nonfasting. Albumin is 2.6. Repeat creatinine was 2.37 this morning. Page 2 of 4 LOU JULIEN History & Physical LOU JULIEN :1955 IMPRESSIONS: 1. COVID-19. He denies any symptoms at this point. He is not hypoxic, and he did have a low-grade fever overnight. He is requesting to go home. He does not meet criteria for inpatient treatment, and I would not consider Paxlovid with his kidney function. He does have home health at home. He has declined any [place] [facility] facility or any further assistance. 2. Kidney disease. I do not have a baseline creatinine. I would recommend following up with Dr. Manrique. He has an appointment on March 21, 2022, at 11 a.m. He will require a follow-up BMP. 3. Diabetes mellitus type 2. He is insulin-requiring. He gave me a different dosage than the medication list from the nursing staf (more content not included)...[facility]06-03-2022 Miscellaneous Notes* Telephone Encounter - Oliva Luis RN - 01/07/2022 3:23 PM EDT Patient has been identified by name and date of : Yes Pharmacy phones for refill(s): Pending Prescriptions Disp Refills HYDRALAZINE 50 MG TABLET 90 tablet 2 Sig: Take 1 tablet by mouth every 8 hours. NENO: No Date of last office visit in primary care: 11/29/2021 Last 2 Encounter Wt Readings: Date: Wt: 12/24/2021 78.9 kg (174 lb) 11/29/2021 80.3 kg (177 lb) Previous labs/tests for medication: Blood Pressure: BUN (mg/dL) Date Value 04/26/2021 62 Sodium (mmol/L) Date Value 04/26/2021 134 Last 1 Encounter BP Readings: Date: BP: 12/24/2021 134/68 Liver Function: ALT (U/L) Date Value 10/10/2019 12 AST (U/L) Date Value 10/10/2019 16 Please advise. Thank you. Oliva Luis RN [facility] Miscellaneous Notes* Telephone Encounter - Kari Yang Ma - 12/16/2021 3:50 PM EDT Patient has been identified by name and date of : Yes Patient phones for refill(s): Pending Prescriptions Disp Refills LANTUS SOLOSTAR U-100 INSULIN 100 UNIT/ML (3 ML) SUBCUTANEOUS PEN 15 mL Sig: INJECT 25 UNITS SUBCUTANEOUSLY TWICE A DAY NENO: Yes CLOPIDOGREL 75 MG TABLET 28 tablet Sig: TAKE 1 TABLET BY MOUTH DAILY NENO: Yes Date of last office visit in primary care: 11/29/21 Last 2 Encounter Wt Readings: Date: Wt: 11/29/2021 80.3 kg (177 lb) 07/29/2021 78.9 kg (174 lb) Previous labs/tests for medication: Diabetes: Hemoglobin A1C (%) Date Value 11/30/2021 7.7 04/26/2021 6.7 04/26/2021 6.6 Please advise. Thank you. Kari Yang Ma documented in this encounterBluff[facility]04-28-2022 Miscellaneous Notes* Telephone Encounter - Nerissa Bolanos LPN - 12/02/2021 1:06 PM EDT Patient notified. Voiced understanding. * Telephone Encounter - Taco Tatum APRN.CNP - 12/02/2021 12:50 PM EDT Please let patient know we are increasing his glimepiride to 2 tablets with dinner to equal 4mg. Thank you Taco Tatum APRN.ELROY * Telephone Encounter - Rocky Argueta RN - 12/02/2021 11:12 AM EDT Pt called and is notified of providers results and questions. Pt reports he has been taking the medications as prescribed, he was told that they would need to increase his dosing. Pt voices understanding. Please call and advise of new dosing. Rocky Argueta RN * Telephone Encounter - Kari Yang Ma - 12/02/2021 10:25 AM EDT Left message for return call. * Telephone Encounter - Kari Yang Ma - 12/01/2021 6:37 PM EDT T/C patient, VM not set up. * Telephone Encounter - Taco Tatum APRN.CNP - 12/01/2021 5:36 PM EDT Please ask patient if he has been taking his Lantus and glimepiride as prescribed. HgbA1c has increased to 7.7 and needs to be below 7. If he has been taking medications as prescribed, we will need to increase his dosages. Thank you Taco Tatum APRN.ELROY documented in this encounterBluff[facility]04-15-2022 Miscellaneous Notes* Telephone Encounter - Acacia Bender - 11/19/2021 1:16 PM EDT Patient has been identified by name and date of : Yes Pending Prescriptions Disp Refills ATORVASTATIN 80 MG TABLET 28 tablet 5 Sig: Take 1 tablet by mouth every morning. NENO: No AMLODIPINE 10 MG TABLET 30 tablet 5 Sig: Take 1 tablet by mouth once daily. NENO: No METOPROLOL SUCCINATE ER 100 MG TABLET,EXTENDED RELEASE 24 HR 30 tablet 11 Sig: Take 1 tablet by mouth every morning. NENO: No PEN NEEDLE, DIABETIC 32 GAUGE X 5/32 150 Each 2 Sig: Use one needle daily for each insulin dose, 4 x's daily. Type 2 DM, insulin dependent. NENO: No MULTIVITAMIN TABLET 28 tablet 11 Sig: Take 1 tablet by mouth once daily. NENO: No RX INSTRUCTIONS: Pharmacy initiated this request. No need to notify patient. Acacia Bender documented in this encounterBluff[facility]04-11-2022 Miscellaneous Notes* Telephone Encounter - Leida Montano RN - 11/15/2021 8:16 AM EDT Reason for call: Patient with 5 days history of watery diarrhea approximately 2 gallons of liquids per days and urinates often. Outcome: 24 hour recommendation. Care advice given. Patient conferenced to Esthela in the appointment centr for scheduling. Reason for Disposition [1] MODERATE diarrhea (e.g., 4-6 times / day more than normal) AND [2] present > 48 hours (2 days) Answer Assessment - Initial Assessment Questions 1. DIARRHEA SEVERITY: How bad is the diarrhea? How many extra stools have you had in the past 24hours than normal? - MODERATE (SCALE 4-7): Increase of 4-6 stools daily over normal; moderate increase in ostomy output. daily over normal; moderate increase in ostomy output; incontinence. 2. ONSET: 11/10/2010 3. BM CONSISTENCY: How loose or watery is the diarrhea? *No Answer* 4. VOMITING: Are you also vomiting? If Yes, ask: How many times in the past 24 hours? *No Answer* 5. ABDOMINAL PAIN: Are you having any abdominal pain? If Yes, ask: What does it feel like? (e.g., crampy, dull, intermittent, constant) *No Answer* 6. ABDOMINAL PAIN SEVERITY: If present, ask: How bad is the pain? (e.g., Scale 1-10; mild, moderate, or severe) - MILD (1-3): doesn't interfere with normal activities, abdomen soft and not tender to touch - MODERATE (4-7): interferes with normal activities or awakens from sleep, tender to touch - SEVERE (8-10): excruciating pain, doubled over, unable to do any normal activities *No Answer* 7. ORAL INTAKE: If vomiting, Have you been able to drink liquids? How much fluids have you had in the past 24 hours? *No Answer* 8. HYDRATION: Any signs of dehydration? (e.g., dry mouth [not just dry lips], too weak to stand, dizziness, new weight loss) When did you last urinate? *No Answer* 9. EXPOSURE: denies 10. ANTIBIOTIC USE: denies 11. OTHER SYMPTOMS: denies 12. : Is there any chance you are ? When was your last menstrual period? *No Answer* Protocols used: [id number] documented in this encounterBluffton Hospital07-30-2019 Evaluation note* Diagnosis Onset Date Resolution Status History of permanent cardiac pacemaker placement March 05, 2019 chronic Paroxysmal supraventricular tachycardia June, chronic Anemia acute Chronic kidney disease, stage 3b acute Acute left-sided muscle weakness resolved Complete heart block February, chronic History of permanent cardiac pacemaker placement March 05, 2019 chronic Paroxysmal supraventricular tachycardia June, chronic Sick sinus syndrome chronic Adult failure to thrive acut e COVID-19 acute Hypoglycemia acute Pneumonia of right lower lob e due to infectious organism acute [facility] Work Phone: 1([phone]) 875-150907-30-2019 Evaluation note* Diagnosis Onset Date Resolution Status Anemia chronic Constipation chronic History of permanent cardiac pacemaker placement March 05, 2019 chronic Paroxysmal supraventricular tachycardia June, [facility] Work Phone: 1([phone]) 153-756807-01-2019 Evaluation note* Diagnosis Onset Date Resolution Status Complete heart block February, chronic CVA (cerebral vascular accident) February, chronic History of permanent cardiac pacemaker placement March 05, 2019 chronic Paroxysmal supraventricular tachycardia June, chronic Sick sinus syndrome [facility] Work Phone: 1([phone]) 202-200007-01-2019 Evaluation note* Diagnosis Onset Date Resolution Status CVA (cerebral vascular accident) February, chronic History of permanent cardiac pacemaker placement March 05, 2019 chronic Paroxysmal supraventricular tachycardia June, chronic Anemia acute CVA (cerebral vascular accident) February, [facility] Work Phone: 1([phone]) 939-888207-01-2019 Evaluation note* Diagnosis Onset Date Resolution Status CVA (cerebral vascular accident) February, chronic History of permanent cardiac pacemaker placement March 05, 2019 chronic Paroxysmal supraventricular tachycardia June, chronic Acute left-sided muscle weakness acute Anemia acute Chronic kidney disease, stage 3b acute CVA (cerebral vascular accident) February, chronic Complete heart block February, chronic History of permanent cardiac pacemaker placement March 05, 2019 chronic Paroxysmal supraventricular tachycardia June, chronic Sick sinus syndrome [facility] Work Phone: [phone]) 111-148207-01-2019 Evaluation note* Diagnosis Onset Date Resolution Status CVA (cerebral vascular accident) February, chronic History of permanent cardiac pacemaker placement March 05, 2019 chronic Paroxysmal supraventricular tachycardia June, chronic Acute left-sided muscle weakness acute Anemia acute Chronic kidney disease, stage 3b acute CVA (cerebral vascular accident) February, chronic Complete heart block February, chronic History of permanent cardiac pacemaker placement March 05, 2019 chronic Paroxysmal supraventricular tachycardia June, chronic Sick sinus syndrome chronic Adult failure to thrive acut e COVID-19 acute Hypoglycemia acute Pneumonia of right lower lob e due to infectious organism acute [facility] Work Phone: 1(307) 878-780304-03-2012 History of Past illness Narrative* Problem Noted Date Resolved Date 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 Anterior interosseous nerve lesion 09/06/2011 11/08/2011 Disturbance of skin sensation 07/07/2008 Sprain of neck 07/07/2008 10/22/2009 Pure hyperglyceridemia 0 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 10/22/2009 documented as of this encounter (statuses as of 11/15/2021) [facility] of Past illness Narrative* Problem Noted Date Resolved Date 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 Anterior interosseous nerve lesion 09/06/2011 11/08/2011 Disturbance of skin sensation 07/07/2008 Sprain of neck 07/07/2008 10/22/2009 Pure hyperglyceridemia 0 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 10/22/2009 documented as of this encounter (statuses as of 11/19/2021) [facility] of Past illness Narrative* Problem Noted Date Resolved Date 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 Anterior interosseous nerve lesion 09/06/2011 11/08/2011 Disturbance of skin sensation 07/07/2008 Sprain of neck 07/07/2008 10/22/2009 Pure hyperglyceridemia 0 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 10/22/2009 documented as of this encounter (statuses as of 12/02/2021) [facility] of [facility] illness Narrative* Problem Noted Date Resolved Date 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 Anterior interosseous nerve lesion 09/06/2011 11/08/2011 Disturbance of skin sensation 07/07/2008 Sprain of neck 07/07/2008 10/22/2009 Pure hyperglyceridemia 0 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 10/22/2009 documented as of this encounter (statuses as of 12/17/2021) [facility] of [facility] illness Narrative* Problem Noted Date Resolved Date 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 Anterior interosseous nerve lesion 09/06/2011 11/08/2011 Disturbance of skin sensation 07/07/2008 Sprain of neck 07/07/2008 10/22/2009 Pure hyperglyceridemia 0 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 10/22/2009 documented as of this encounter (statuses as of 01/07/2022) [facility] illness Narrative* Problem Noted Date Resolved Date 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 Anterior interosseous nerve lesion 09/06/2011 11/08/2011 Disturbance of skin sensation 07/07/2008 Sprain of neck 07/07/2008 10/22/2009 Pure hyperglyceridemia 0 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 10/22/2009 documented as of this encounter (statuses as of 01/07/2022) [facility] illness Narrative* Problem Noted Date Resolved Date 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 Anterior interosseous nerve lesion 09/06/2011 11/08/2011 Disturbance of skin sensation 07/07/2008 Sprain of neck 07/07/2008 10/22/2009 Pure hyperglyceridemia 0 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 10/22/2009 documented as of this encounter (statuses as of 04/01/2022) [facility] illness Narrative* Problem Noted Date Resolved Date 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 Anterior interosseous nerve lesion 09/06/2011 11/08/2011 Disturbance of skin sensation 07/07/2008 Sprain of neck 07/07/2008 10/22/2009 Pure hyperglyceridemia 0 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 10/22/2009 documented as of this encounter (statuses as of 06/02/2022) [facility] illness Narrative* Problem Noted Date Resolved Date 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 Anterior interosseous nerve lesion 09/06/2011 11/08/2011 Disturbance of skin sensation 07/07/2008 Sprain of neck 07/07/2008 10/22/2009 Pure hyperglyceridemia 0 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 10/22/2009 documented as of this encounter (statuses as of 07/01/2022) [facility] illness Narrative* Problem Noted Date Resolved Date 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 Anterior interosseous nerve lesion 09/06/2011 11/08/2011 Disturbance of skin sensation 07/07/2008 Sprain of neck 07/07/2008 10/22/2009 Pure hyperglyceridemia 0 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 10/22/2009 documented as of this encounter (statuses as of 09/01/2022) [place] [address]-03-2012 History of Past illness Narrative* Problem Noted Date Resolved Date 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 Anterior interosseous nerve lesion 09/06/2011 11/08/2011 Disturbance of skin sensation 07/07/2008 Sprain of neck 07/07/2008 10/22/2009 Pure hyperglyceridemia 0 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 10/22/2009 documented as of this encounter (statuses as of 09/08/2022) [facility] illness Narrative* Problem Noted Date Resolved Date 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 Anterior interosseous nerve lesion 09/06/2011 11/08/2011 Disturbance of skin sensation 07/07/2008 Sprain of neck 07/07/2008 10/22/2009 Pure hyperglyceridemia 0 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 10/22/2009 documented as of this encounter (statuses as of 09/20/2022) [facility] illness Narrative* Problem Noted Date Resolved Date 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 Anterior interosseous nerve lesion 09/06/2011 11/08/2011 Disturbance of skin sensation 07/07/2008 Sprain of neck 07/07/2008 10/22/2009 Pure hyperglyceridemia 0 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 10/22/2009 documented as of this encounter (statuses as of 09/21/2022) [facility] illness Narrative* Problem Noted Date Resolved Date 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 Anterior interosseous nerve lesion 09/06/2011 11/08/2011 Disturbance of skin sensation 07/07/2008 Sprain of neck 07/07/2008 10/22/2009 Pure hyperglyceridemia 0 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 10/22/2009 documented as of this encounter (statuses as of 09/22/2022) [facility] Narrative* Problem Noted Date Resolved Date 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 Anterior interosseous nerve lesion 09/06/2011 11/08/2011 Disturbance of skin sensation 07/07/2008 Sprain of neck 07/07/2008 10/22/2009 Pure hyperglyceridemia 0 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 10/22/2009 documented as of this encounter (statuses as of 10/02/2022) [facility] Narrative* Problem Noted Date Resolved Date 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 Anterior interosseous nerve lesion 09/06/2011 11/08/2011 Disturbance of skin sensation 07/07/2008 Sprain of neck 07/07/2008 10/22/2009 Pure hyperglyceridemia 0 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 10/22/2009 documented as of this encounter (statuses as of 10/04/2022) [facility] Narrative* Problem Noted Date Resolved Date 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 Anterior interosseous nerve lesion 09/06/2011 11/08/2011 Disturbance of skin sensation 07/07/2008 Sprain of neck 07/07/2008 10/22/2009 Pure hyperglyceridemia 0 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 10/22/2009 documented as of this encounter (statuses as of 10/11/2022) [facility] Narrative* Problem Noted Date Resolved Date 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 Anterior interosseous nerve lesion 09/06/2011 11/08/2011 Disturbance of skin sensation 07/07/2008 Sprain of neck 07/07/2008 10/22/2009 Pure hyperglyceridemia 0 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 10/22/2009 documented as of this encounter (statuses as of 11/11/2022) [facility] Narrative* Problem Noted Date Resolved Date 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 Anterior interosseous nerve lesion 09/06/2011 11/08/2011 Disturbance of skin sensation 07/07/2008 Sprain of neck 07/07/2008 10/22/2009 Pure hyperglyceridemia 0 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 10/22/2009 documented as of this encounter (statuses as of 11/17/2022) [facility] Narrative* Problem Noted Date Resolved Date 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 Anterior interosseous nerve lesion 09/06/2011 11/08/2011 Disturbance of skin sensation 07/07/2008 Sprain of neck 07/07/2008 10/22/2009 Pure hyperglyceridemia 0 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 10/22/2009 documented as of this encounter (statuses as of 12/02/2022) [facility] Narrative* Problem Noted Date Resolved Date 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 Anterior interosseous nerve lesion 09/06/2011 11/08/2011 Disturbance of skin sensation 07/07/2008 Sprain of neck 07/07/2008 10/22/2009 Pure hyperglyceridemia 0 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 10/22/2009 documented as of this encounter (statuses as of 12/16/2022) [facility] Narrative* Problem Noted Date Resolved Date 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 Anterior interosseous nerve lesion 09/06/2011 11/08/2011 Disturbance of skin sensation 07/07/2008 Sprain of neck 07/07/2008 10/22/2009 Pure hyperglyceridemia 0 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 10/22/2009 documented as of this encounter (statuses as of 01/31/2023) [facility] Narrative* Problem Noted Date Resolved Date 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 Anterior interosseous nerve lesion 09/06/2011 11/08/2011 Disturbance of skin sensation 07/07/2008 Sprain of neck 07/07/2008 10/22/2009 Pure hyperglyceridemia 0 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 10/22/2009 documented as of this encounter (statuses as of 02/01/2023) [facility] of [facility] illness Narrative* Problem Noted Date Diagnosed Date Resolved Date 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 Anterior interosseous nerve lesion 09/06/2011 11/08/2011 Disturbance of skin sensation 07/07/2008 10/22/2009 Sprain of neck 07/07/2008 10/22/2009 Pure hyperglyceridemia 10/22 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 10/22/2009 documented as of this encounter (statuses as of 02/13/2023) [facility] Narrative* Problem Noted Date Diagnosed Date Resolved Date 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 Anterior interosseous nerve lesion 09/06/2011 11/08/2011 Disturbance of skin sensation 07/07/2008 10/22/2009 Sprain of neck 07/07/2008 10/22/2009 Pure hyperglyceridemia 10/22 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 10/22/2009 documented as of this encounter (statuses as of 03/07/2023) [facility] illness Narrative* Problem Noted Date Diagnosed Date Resolved Date 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 Anterior interosseous nerve lesion 09/06/2011 11/08/2011 Disturbance of skin sensation 07/07/2008 10/22/2009 Sprain of neck 07/07/2008 10/22/2009 Pure hyperglyceridemia 10/22 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 10/22/2009 documented as of this encounter (statuses as of 03/14/2023) [facility]2012 History of Past illness Narrative* Problem Noted Date Diagnosed Date Resolved Date 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 Anterior interosseous nerve lesion 09/06/2011 11/08/2011 Disturbance of skin sensation 07/07/2008 10/22/2009 Sprain of neck 07/07/2008 10/22/2009 Pure hyperglyceridemia 10/22 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 10/22/2009 documented as of this encounter (statuses as of 03/24/2023) [facility] History of Past illness Narrative* Problem Noted Date Diagnosed Date Resolved Date 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 Anterior interosseous nerve lesion 09/06/2011 11/08/2011 Disturbance of skin sensation 07/07/2008 10/22/2009 Sprain of neck 07/07/2008 10/22/2009 Pure hyperglyceridemia 10/22 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 10/22/2009 documented as of this encounter (statuses as of 03/30/2023) [facility] History of Past illness Narrative* Problem Noted Date Diagnosed Date Resolved Date 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 Anterior interosseous nerve lesion 09/06/2011 11/08/2011 Disturbance of skin sensation 07/07/2008 10/22/2009 Sprain of neck 07/07/2008 10/22/2009 Pure hyperglyceridemia 10/22 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 10/22/2009 documented as of this encounter (statuses as of 04/04/2023) [facility] History of Past illness Narrative* Problem Noted Date Diagnosed Date Resolved Date 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 Anterior interosseous nerve lesion 09/06/2011 11/08/2011 Disturbance of skin sensation 07/07/2008 10/22/2009 Sprain of neck 07/07/2008 10/22/2009 Pure hyperglyceridemia 10/22 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 10/22/2009 documented as of this encounter (statuses as of 04/26/2023) [facility] History of Past illness Narrative* Problem Noted Date Diagnosed Date Resolved Date 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 Anterior interosseous nerve lesion 09/06/2011 11/08/2011 Disturbance of skin sensation 07/07/2008 10/22/2009 Sprain of neck 07/07/2008 10/22/2009 Pure hyperglyceridemia 10/22 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 10/22/2009 documented as of this encounter (statuses as of 05/23/2023) [facility] History of Past illness Narrative* Problem Noted Date Diagnosed Date Resolved Date 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 Anterior interosseous nerve lesion 09/06/2011 11/08/2011 Disturbance of skin sensation 07/07/2008 10/22/2009 Sprain of neck 07/07/2008 10/22/2009 Pure hyperglyceridemia 10/22 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 10/22/2009 documented as of this encounter (statuses as of 06/23/2023) [facility] History of Past illness Narrative* Problem Noted Date Diagnosed Date Resolved Date 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 Anterior interosseous nerve lesion 09/06/2011 11/08/2011 Disturbance of skin sensation 07/07/2008 10/22/2009 Sprain of neck 07/07/2008 10/22/2009 Pure hyperglyceridemia 10/22 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 10/22/2009 documented as of this encounter (statuses as of 07/11/2023) [address]03-2012 History of Past illness Narrative* Problem Noted Date Diagnosed Date Resolved Date 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 Anterior interosseous nerve lesion 09/06/2011 11/08/2011 Disturbance of skin sensation 07/07/2008 10/22/2009 Sprain of neck 07/07/2008 10/22/2009 Pure hyperglyceridemia 10/22 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 10/22/2009 documented as of this encounter (statuses as of 07/12/2023) [facility] History of Past illness Narrative* Problem Noted Date Diagnosed Date Resolved Date 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 Anterior interosseous nerve lesion 09/06/2011 11/08/2011 Disturbance of skin sensation 07/07/2008 10/22/2009 Sprain of neck 07/07/2008 10/22/2009 Pure hyperglyceridemia 10/22 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 10/22/2009 documented as of this encounter (statuses as of 07/14/2023) [facility] History of Past illness Narrative* Problem Noted Date Diagnosed Date Resolved Date 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 Anterior interosseous nerve lesion 09/06/2011 11/08/2011 Disturbance of skin sensation 07/07/2008 10/22/2009 Sprain of neck 07/07/2008 10/22/2009 Pure hyperglyceridemia 10/22 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 10/22/2009 documented as of this encounter (statuses as of 07/20/2023) [facility] History of Past illness Narrative* Problem Noted Date Diagnosed Date Resolved Date 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 Anterior interosseous nerve lesion 09/06/2011 11/08/2011 Disturbance of skin sensation 07/07/2008 10/22/2009 Sprain of neck 07/07/2008 10/22/2009 Pure hyperglyceridemia 10/22 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 10/22/2009 documented as of this encounter (statuses as of 09/09/2023) [facility] History of Past illness Narrative* Problem Noted Date Diagnosed Date Resolved Date 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 Anterior interosseous nerve lesion 09/06/2011 11/08/2011 Disturbance of skin sensation 07/07/2008 10/22/2009 Sprain of neck 07/07/2008 10/22/2009 Pure hyperglyceridemia 10/22 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 10/22/2009 documented as of this encounter (statuses as of 09/13/2023) [facility] History of Past illness Narrative* Problem Noted Date Diagnosed Date Resolved Date 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 Anterior interosseous nerve lesion 09/06/2011 11/08/2011 Disturbance of skin sensation 07/07/2008 10/22/2009 Sprain of neck 07/07/2008 10/22/2009 Pure hyperglyceridemia 10/22 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 10/22/2009 documented as of this encounter (statuses as of 09/14/2023) [facility] History of Past illness Narrative* Problem Noted Date Diagnosed Date Resolved Date 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 Anterior interosseous nerve lesion 09/06/2011 11/08/2011 Disturbance of skin sensation 07/07/2008 10/22/2009 Sprain of neck 07/07/2008 10/22/2009 Pure hyperglyceridemia 10/22 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 10/22/2009 documented as of this encounter (statuses as of 09/19/2023) [facility] History of Past illness Narrative* Problem Noted Date Diagnosed Date Resolved Date 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 Anterior interosseous nerve lesion 09/06/2011 11/08/2011 Disturbance of skin sensation 07/07/2008 10/22/2009 Sprain of neck 07/07/2008 10/22/2009 Pure hyperglyceridemia 10/22 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 10/22/2009 documented as of this encounter (statuses as of 09/20/2023) [facility] History of Past illness Narrative* Problem Noted Date Diagnosed Date Resolved Date 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 Anterior interosseous nerve lesion 09/06/2011 11/08/2011 Disturbance of skin sensation 07/07/2008 10/22/2009 Sprain of neck 07/07/2008 10/22/2009 Pure hyperglyceridemia 10/22 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 10/22/2009 documented as of this encounter (statuses as of 10/06/2023) [facility] History of Past illness Narrative* Problem Noted Date Diagnosed Date Resolved Date 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 Anterior interosseous nerve lesion 09/06/2011 11/08/2011 Disturbance of skin sensation 07/07/2008 10/22/2009 Sprain of neck 07/07/2008 10/22/2009 Pure hyperglyceridemia 10/22 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 10/22/2009 documented as of this encounter (statuses as of 11/08/2023) [facility] History of Past illness Narrative* Problem Noted Date Diagnosed Date Resolved Date 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 Anterior interosseous nerve lesion 09/06/2011 11/08/2011 Disturbance of skin sensation 07/07/2008 10/22/2009 Sprain of neck 07/07/2008 10/22/2009 Pure hyperglyceridemia 10/22 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 10/22/2009 documented as of this encounter (statuses as of 11/20/2023) [facility] Leonel Horton [facility] Note Date/Time March 19, 2025 1: 40pm [facility] Medical Records Department [address] [place] [id number] Emergency Department Summary 03/19/25 MR#: [id number] Acct: [id number] Name: LOU JULIEN Rep #:[id number] : 1955 69 From: Leonel Baez PCP: Dr. Vera Manrique MD Status:REG E R Location: ED HPI History of Present Illness Chief Complaint: Lower Extremity Injury [facility] PFS Medical History GI bleed due to NSAIDs Anemia Acute on chronic kidney failure Kidney failure Need for home health care Insulin dependent diabetes mellitus Leg cramps History of pain when walking Wears glasses Ambulates with cane High cholesterol Stroke/cerebrovascular accident Syncope Dietary restriction History of edema History of echocardiogram History of stress test Cardiology follow-up encounter Irregular heart beat Former smoker DVT (deep venous thrombosis) Pacemaker Diabetes mellitus Paroxysmal supraventricular tachycardia (06/2017) Complete heart block (02/2019) Essential (primary) hypertension Sick sinus syndrome Sinus pause CVA (cerebral vascular accident) (02/2019) Tachyarrhythmia HLD (hyperlipidemia) Home Medications ?Medication ?Instructions ?Recorded ?Last Taken ?Type atorvastatin 80 mg tablet 80 mg PO DAILY cholesterol 0 03/04/19 08/22/23 History multivitamin (Daily-Yousuf tablet) 1 tab PO DAILY SUPPLE MENT 03/11/22 12/25/23 History ascorbic acid (vitamin C) 500 mg 500 mg PO BID 30 days #60 tabs 03/22/22 08/22/23 Rx tablet (Vitamin C) clopidogrel 75 mg tablet 75 mg PO DAILY 03/14/2308/07 History aspirin 81 mg tablet,delayed 81 mg PO DAILY 04/07/23 U nknown History release insulin glargine 100 unit/mL (3 20 unit subcut .QAM DI ABETES 04/07/23 08/22/23 History mL) subcutaneous pen (Lantus Solostar U-100 Insulin) trazodone 50 mg tablet 50 mg PO QHS 04/07/23 History insulin lispro 100 unit/mL 2 unit subcut TID 05/25/23 08/22/23 History subcutaneous pen hydralazine 50 mg tablet 50 mg PO DAILY 06/29/23 Unkn own History amlodipine 10 mg tablet 10 mg PO DAILY 08/21/23 Unkn own History metoprolol succinate 100 mg 100 mg PO QHS 08/21/23 Unk nown History tablet,extended release 24 hr hydrocodone-acetaminophen 5-325mg 1 tab PO Q6H PRN PRN Pain 3 days 08/15/24 Unknown Rx 5mg-325mg #10 TABLETS cephalexin 500 mg capsule 500 mg PO Q6 #40 CAPSULES Unknown Rx Allergy/AdvReac Type Severity Reaction Status Date / Time metformin (From Glucophage) AdvReac Diarrhea Verified 03/19/25 12:15 Family History Mother Cancer Father Heart disease Hypertension Myocardial infarction Surgical History History of hand surgery History of carpal tunnel release History of permanent cardiac pacemaker placement (03/05/19) Social History household members: none Smoking Status: Former smoker Smokeless tobacco user: other alcohol intake: never substance use type: does not use EXAM Physical Exam Const Vital Signs: 03/19/25 12:16 Temperature 97.9 F Temperature Source Oral Pulse Rate 70 Respiratory Rate 18 Blood Pressure 135/62 H Blood Pressure Mean 86 Pulse Ox 99 Oxygen Delivery Method Room [place] [facility] [place] Medical decision making narrative: HISTORY OF PRESENT ILLNESS: Chief complaint: Right ankle pain 69-year-old male history of constipation, CKD, TIA, sick sinus syndrome status post pacemaker, hypertension, hyperlipidemia presents right ankle pain. No mechanical fall from standing just prior to arrival. No head trauma or loss of consciousness noted. No knee pain or hip pain noted. REVIEW OF SYSTEMS: Pertinent positives: Ankle pain Pertinent negatives: As per HPI PHYSICAL EXAM: Nursing triage notes reviewed, Vital signs reviewed Constitutional: please see mdm Extremities: No edema, TTP over lateral malleolus. Intact pulses (dorsalis pedis, posterior tibial and bilateral lower extremities. Right lower extremity is warm and well-perfused. Compartments are soft. Neuro: Intact sensation L1-S1 dermatomal distributions. Intact 5/5 strength in hip flexion (T12-L3). Knee extension (L2-L4). Ankle dorsiflexion (L4-L5). Ankle plantar flexion (S1). Great toe extension (L5). 2+ patellar and AchillesDTRs. Skin: No rash or lesions noted, no sign of open MEDICAL DECISION MAKING: Chief Complaint: please see HPI MDM Narrative: [The patient was initially hemodynamically stable, afebrile and nontoxic- appearing. Exam with TTP over right lateral malleolus. No obvious signs of open fracture. Right lower extremity is warm and well-perfused. I considered the following differential diagnosis: Ankle fracture/dislocation I obtained x-ray to further determine if the patient was suffering from a life-threatening etiology. ALL IMAGES (IF OBTAINED) HAVE BEEN PERSONALLY REVIEWED AND INTERPRETED BY MYSELF. X-ray of the right ankle was read reviewed person by myself showed no evidence of obvious bony abnormality. The patient and/or family, caregivers express understanding. The patient and/or family, caregivers agrees with the plan. Shared decision making: I will have a discussion with the patient and or visitors regarding risk/benefits of further testing or admission. They will be made aware of of the risk/benefits inherent in this decision they will be given the opportunity to voice understanding. Total critical care time today provided was at least 0[ minutes. This excludes separately billable procedures. Critical care time (if documented) is secondary to the patient having high probability of clinically significant/life threatening deterioration in the patient's condition which required my urgent intervention. Impression: 1. Acute right ankle pain 2. Acute right ankle sprain Dispo: Discharge home This note was generated with [employer] dictation software. It may contain incorrect words, spelling, and punctuation that were not noted in review of the chart prior to signing. Radiography Diagnostic Testing: Clinical Impression(s) from Imaging Studies Ankle X-Ray 03/19/25 12:33 IMPRESSION: Calcaneal spurs. Soft tissue swelling. No fracture. Reading Location: [id number] Discharge Plan Triage Chief Complaint: Lower Extremity Injury ED Provider: Leonel Horton Dx/Rx/DC Orders Prescriptions: No Action clopidogrel 75 mg tablet 75 mg PO DAILY atorvastatin 80 MG tablet 80 mg PO DAILY multivitamin [Daily-Yousuf] Tablet 1 tab PO DAILY ascorbic acid (vitamin C) [Vitamin C] 500 mg tablet 500 mg PO BID 30 Days Qty: 60 0RF insulin glargine [Lantus Solostar U-100 Insulin] 100 unit/mL (3 mL) insulin pen 20 unit SUBCUT .QAM aspirin 81 mg tablet,delayed release (DR/EC) 81 mg PO DAILY trazodone 50 mg tablet 50 mg PO QHS Rx Instructions: May take 50-100 mg nightly. insulin lispro 100 unit/mL insulin pen 2 unit SUBCUT TID hydralazine 50 mg Tablet 50 mg PO DAILY metoprolol succinate 100 mg tablet extended release 24 hr 100 mg PO QHS amlodipine 10 mg tablet 10 mg PO DAILY hydrocodone-acetaminophen 5-325 mg tablet 1 tab PO Q6H PRN PRN (Reason: Pain) 3 Days Qty: 10 0RF cephalexin 500 mg capsule 500 mg PO Q6 Qty: 40 0RF Primary Care Provider: Vera Manrique Referrals: Vera Manrique MD [Primary Care Provider] - Print Language: Danish What to do if you have Problems For any increased pain, shortness of breath, bleeding, nausea or vomiting, chestpain, or any unexpected problems, contact your Primary Care Provider. Call [facility] ([phone]) or report to the closest Emergency Room. Call 911 if necessary. 03/19/25 1340 <Electronically signed by Leonel Horton DO> Cosigner Signature (if applicable): CC: Dr. Vera Manrique MD ~ Signed [facility] Work Phone: Evaluation note* Diagnosis Pure hypercholesterolemia Uncontrolled hypertension Unspecified essential hypertension documented in this encounter [facility] note* Diagnosis Diabetic polyneuropathy associated with type 2 diabetes mellitus (HCC) documented in this encounter [facility] note* Diagnosis Essential hypertension, benign documented in this encounter [facility] note* Diagnosis Essential hypertension, benign documented in this encounter [facility] note* Diagnosis Insomnia, unspecified type- Primary documented in this encounter [facility] note* Diagnosis Type 2 diabetes mellitus with stage 3b chronic kidney disease, with long-term current use of insulin (HCC) Pure hypercholesterolemia documented in this encounter [facility] note* Diagnosis Recurrent falls- Primary Personal history of fall Uncontrolled type 2 diabetes mellitus with hypoglycemia without coma (HCC) Essential hypertension, benign documented in this encounter [facility] note* Diagnosis Onset Date Resolution Status Anemia chronic Constipation chronic [facility] Work Phone: Evaluation note* Diagnosis Uncontrolled type 2 DM with hyperosmolar nonketotic hyperglycemia (HCC)- Primary Type II or unspecified type diabetes mellitus with hyperosmolarity, uncontrolled Insomnia, unspecified type Diabetic polyneuropathy associated with type 2 diabetes mellitus (HCC) Pure hypercholesterolemia Uncontrolled hypertension Unspecified essential hypertension Type 2 diabetes mellitus with stage 3b chronic kidney disease, with long-term current use of insulin (HCC) documented in this encounter [facility] note* Diagnosis Essential hypertension, benign Constipation, unspecified constipation type [facility] Onset Date Resolution Status Anemia chronic Constipation chronic Fall (on) (from) other stair s and steps, initial encounter acute Gallbladder polyp acute Vomiting acute [facility] Work Phone: Evaluation note* Diagnosis Uncontrolled hypertension Unspecified essential hypertension [facility] Diagnosis Type 2 diabetes mellitus with stage 3b chronic kidney disease, with long-term current use of insulin (HCC)- Primary Numbness in feet Disturbance of skin sensation [facility] Diagnosis Pure hypercholesterolemia Type 2 diabetes mellitus with stage 3b chronic kidney disease, with long-term current use of insulin ([facility]) [facility] Diagnosis Essential hypertension, benign- Primary Dyspnea on exertion Other dyspnea and respiratory abnormality Diabetic polyneuropathy associated with type 2 diabetes mellitus (HCC) Chronic kidney disease, stage 4 (severe) ([facility]) [facility] Diagnosis Insomnia, unspecified type [facility] Diagnosis Pure hypercholesterolemia [facility] Diagnosis Function kidney decreased- Primary Unspecified disorder of kidney and ureter Stage 4 chronic kidney disease (HCC) [facility] Diagnosis Rib pain on right side- Primary Chest pain, unspecified Type 2 diabetes mellitus with stage 4 chronic kidney disease, with long-term current use of insulin (HCC) Function kidney decreased Unspecified disorder of kidney and ureter Essential hypertension, benign Anemia, unspecified type Vitamin D deficiency Unspecified vitamin D deficiency [facility] Diagnosis Essential hypertension, benign [facility] Diagnosis Anemia, unspecified type- Primary Chronic kidney disease, stage 4 (severe) (HCC) Essential hypertension, benign Hypocalcemia [facility] Diagnosis Constipation, unspecified constipation type [facility] Diagnosis Vitamin D deficiency Unspecified vitamin D deficiency [facility] Diagnosis Chronic constipation- Primary Unspecified constipation VENICE (acute kidney injury) (HCC) Acute kidney failure, unspecified Encounter for immunization Need for other specified prophylactic vaccination against single bacterial disease Anemia, unspecified type [facility] Diagnosis Anemia, unspecified type- Primary CKD (chronic kidney disease), stage IV (HCC) Chronic kidney disease, Stage IV (severe) [facility] Diagnosis Essential hypertension, benign Insomnia, unspecified type [facility] Diagnosis Onset Date Resolution Status High grade dysplasia in colonic adenoma acute Anemia chronic Constipation [facility] Work Phone: Evaluation note* Diagnosis Difficulty sleeping- Primary Sleep disturbance, unspecified Insomnia, unspecified type [facility]* Diagnosis Insomnia, unspecified type [facility]* Diagnosis Insomnia, unspecified type [facility] Diagnosis Uncontrolled hypertension Unspecified essential hypertension [facility] Diagnosis Chronic kidney disease, stage 4, severely decreased GFR (HCC)- Primary Chronic kidney disease, Stage IV (severe) Anemia of renal disease Anemia in chronic kidney disease Secondary renal hyperparathyroidism (HCC) Secondary hyperparathyroidism (of renal origin) Primary hypertension Unspecified essential hypertension Hyperlipidemia, unspecified hyperlipidemia type Metabolic acidosis Acidosis [facility] Diagnosis Constipation, unspecified constipation type [facility] Diagnosis VENICE (acute kidney injury) ([facility])- Primary Acute kidney failure, unspecified Anemia due to chronic kidney disease, unspecified CKD stage Diarrhea, unspecified type [facility]* Diagnosis Vitamin D deficiency Unspecified vitamin D deficiency Essential hypertension, benign [facility]* Diagnosis Type 2 diabetes mellitus with stage 3b chronic kidney disease, with long-term current use of insulin (HCC) Pure hypercholesterolemia [facility]* Diagnosis Essential hypertension, benign- Primary Type 2 diabetes mellitus with stage 4 chronic kidney disease, with long-term current use of insulin (HCC) 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) Poor memory Memory loss Screening for abdominal aortic aneurysm Screening for other and unspecified cardiovascular conditions Colon cancer screening Special screening for malignant neoplasms, colon Dyspnea on exertion Other dyspnea and respiratory abnormality [facility]* Diagnosis Screening for abdominal aortic aneurysm Screening for other and unspecified cardiovascular conditions [facility] Diagnosis Type 2 diabetes mellitus 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, with long-term current use of insulin (HCC)- Primary Primary hypertension Unspecified essential hypertension Metabolic acidosis Acidosis Persistent proteinuria Proteinuria Anemia of renal disease Anemia in chronic kidney disease Secondary renal hyperparathyroidism (HCC) Secondary hyperparathyroidism (of renal origin) Hyperlipidemia, unspecified hyperlipidemia type Other iron deficiency anemia Vitamin D deficiency Unspecified vitamin D deficiency [facility] Diagnosis Constipation, unspecified constipation type [facility] Diagnosis Anemia, unspecified type- Primary Abnormal weight loss Loss of weight [facility] Diagnosis Anemia, unspecified type Abnormal weight loss Loss of weight [facility] Diagnosis Essential hypertension, benign- Primary DM neuro manif type II, uncontrolled Type II or unspecified type diabetes mellitus with neurological manifestations, uncontrolled Pure hypercholesterolemia Low back pain Lumbago SOB (shortness of breath) Shortness of breath Pure hypercholesterolemia- Primary Diabetes mellitus type 2, uncontrolled, without complications Type II or unspecified type diabetes mellitus without mention of complication, uncontrolled DDD (degenerative disc disease), lumbar Degeneration of lumbar or lumbosacral intervertebral disc Diabetes mellitus type 2, uncontrolled- Primary Type II or unspecified type diabetes mellitus without mention of complication, uncontrolled Essential hypertension, benign SOB (shortness of breath) Shortness of breath Pure hypercholesterolemia Diabetes mellitus type 2, uncontrolled- Primary Type II or unspecified type diabetes mellitus without mention of complication, uncontrolled Neuropathy Mononeuritis of unspecified site Essential hypertension, benign Diabetic polyneuropathy associated with type 2 diabetes mellitus (HCC) Rash of unknown cause Uncontrolled type 2 diabetes mellitus with complication, with long-term current use of insulin- Primary Other diabetic neurological complication associated with type 2 diabetes mellitus (HCC) Osteoarthritis of spine, unspecified spinal osteoarthritis complication status, unspecified spinal region Uncontrolled type 2 diabetes mellitus with complication, with long-term current use of insulin- Primary Pure hypercholesterolemia Essential hypertension, benign Other fatigue Other diabetic neurological complication associated with type 2 diabetes mellitus (HCC)- Primary Uncontrolled type 2 diabetes mellitus without complication, without long-term current use of insulin Uncontrolled type 2 diabetes mellitus with complication, with long-term current use of insulin Palpitations Shortness of breath Other fatigue Essential hypertension, benign Iron deficiency anemia, unspecified iron deficiency anemia type- Primary TIA (transient ischemic attack) Unspecified transient cerebral ischemia Basilar artery stenosis Occlusion and stenosis of basilar artery without mention of cerebral infarction Fall, subsequent encounter- Primary Arm bruise, left, sequela [facility] Diagnosis Essential hypertension, benign- Primary DM neuro manif type II, uncontrolled Type II or unspecified type diabetes mellitus with neurological manifestations, uncontrolled Pure hypercholesterolemia Low back pain Lumbago SOB (shortness of breath) Shortness of breath Pure hypercholesterolemia- Primary Diabetes mellitus type 2, uncontrolled, without complications Type II or unspecified type diabetes mellitus without mention of complication, uncontrolled DDD (degenerative disc disease), lumbar Degeneration of lumbar or lumbosacral intervertebral disc Diabetes mellitus type 2, uncontrolled- Primary Type II or unspecified type diabetes mellitus without mention of complication, uncontrolled Essential hypertension, benign SOB (shortness of breath) Shortness of breath Pure hypercholesterolemia Diabetes mellitus type 2, uncontrolled- Primary Type II or unspecified type diabetes mellitus without mention of complication, uncontrolled Neuropathy Mononeuritis of unspecified site Essential hypertension, benign Diabetic polyneuropathy associated with type 2 diabetes mellitus (HCC) Rash of unknown cause Uncontrolled type 2 diabetes mellitus with complication, with long-term current use of insulin- Primary Other diabetic neurological complication associated with type 2 diabetes mellitus (HCC) Osteoarthritis of spine, unspecified spinal osteoarthritis complication status, unspecified spinal region Uncontrolled type 2 diabetes mellitus with complication, with long-term current use of insulin- Primary Pure hypercholesterolemia Essential hypertension, benign Other fatigue Other diabetic neurological complication associated with type 2 diabetes mellitus (HCC)- Primary Uncontrolled type 2 diabetes mellitus without complication, without long-term current use of insulin Uncontrolled type 2 diabetes mellitus with complication, with long-term current use of insulin Palpitations Shortness of breath Other fatigue Essential hypertension, benign Iron deficiency anemia, unspecified iron deficiency anemia type- Primary TIA (transient ischemic attack) Unspecified transient cerebral ischemia Basilar artery stenosis Occlusion and stenosis of basilar artery without mention of cerebral infarction Vitamin D deficiency Unspecified vitamin D deficiency Essential hypertension, benign [facility] Diagnosis Essential hypertension, benign- Primary DM neuro manif type II, uncontrolled Type II or unspecified type diabetes mellitus with neurological manifestations, uncontrolled Pure hypercholesterolemia Low back pain Lumbago SOB (shortness of breath) Shortness of breath Pure hypercholesterolemia- Primary Diabetes mellitus type 2, uncontrolled, without complications Type II or unspecified type diabetes mellitus without mention of complication, uncontrolled DDD (degenerative disc disease), lumbar Degeneration of lumbar or lumbosacral intervertebral disc Diabetes mellitus type 2, uncontrolled- Primary Type II or unspecified type diabetes mellitus without mention of complication, uncontrolled Essential hypertension, benign SOB (shortness of breath) Shortness of breath Pure hypercholesterolemia Diabetes mellitus type 2, uncontrolled- Primary Type II or unspecified type diabetes mellitus without mention of complication, uncontrolled Neuropathy Mononeuritis of unspecified site Essential hypertension, benign Diabetic polyneuropathy associated with type 2 diabetes mellitus (HCC) Rash of unknown cause Uncontrolled type 2 diabetes mellitus with complication, with long-term current use of insulin- Primary Other diabetic neurological complication associated with type 2 diabetes mellitus (HCC) Osteoarthritis of spine, unspecified spinal osteoarthritis complication status, unspecified spinal region Uncontrolled type 2 diabetes mellitus with complication, with long-term current use of insulin- Primary Pure hypercholesterolemia Essential hypertension, benign Other fatigue Other diabetic neurological complication associated with type 2 diabetes mellitus (HCC)- Primary Uncontrolled type 2 diabetes mellitus without complication, without long-term current use of insulin Uncontrolled type 2 diabetes mellitus with complication, with long-term current use of insulin Palpitations Shortness of breath Other fatigue Essential hypertension, benign Iron deficiency anemia, unspecified iron deficiency anemia type- Primary TIA (transient ischemic attack) Unspecified transient cerebral ischemia Basilar artery stenosis Occlusion and stenosis of basilar artery without mention of cerebral infarction Rib pain on right side Chest pain, unspecified [facility] Diagnosis Essential hypertension, benign- Primary DM neuro manif type II, uncontrolled Type II or unspecified type diabetes mellitus with neurological manifestations, uncontrolled Pure hypercholesterolemia Low back pain Lumbago SOB (shortness of breath) Shortness of breath Pure hypercholesterolemia- Primary Diabetes mellitus type 2, uncontrolled, without complications Type II or unspecified type diabetes mellitus without mention of complication, uncontrolled DDD (degenerative disc disease), lumbar Degeneration of lumbar or lumbosacral intervertebral disc Diabetes mellitus type 2, uncontrolled- Primary Type II or unspecified type diabetes mellitus without mention of complication, uncontrolled Essential hypertension, benign SOB (shortness of breath) Shortness of breath Pure hypercholesterolemia Diabetes mellitus type 2, uncontrolled- Primary Type II or unspecified type diabetes mellitus without mention of complication, uncontrolled Neuropathy Mononeuritis of unspecified site Essential hypertension, benign Diabetic polyneuropathy associated with type 2 diabetes mellitus (HCC) Rash of unknown cause Uncontrolled type 2 diabetes mellitus with complication, with long-term current use of insulin- Primary Other diabetic neurological complication associated with type 2 diabetes mellitus (HCC) Osteoarthritis of spine, unspecified spinal osteoarthritis complication status, unspecified spinal region Uncontrolled type 2 diabetes mellitus with complication, with long-term current use of insulin- Primary Pure hypercholesterolemia Essential hypertension, benign Other fatigue Other diabetic neurological complication associated with type 2 diabetes mellitus (HCC)- Primary Uncontrolled type 2 diabetes mellitus without complication, without long-term current use of insulin Uncontrolled type 2 diabetes mellitus with complication, with long-term current use of insulin Palpitations Shortness of breath Other fatigue Essential hypertension, benign Iron deficiency anemia, unspecified iron deficiency anemia type- Primary TIA (transient ischemic attack) Unspecified transient cerebral ischemia Basilar artery stenosis Occlusion and stenosis of basilar artery without mention of cerebral infarction Dyspnea on exertion Other dyspnea and respiratory abnormality [facility] Diagnosis Essential hypertension, benign- Primary DM neuro manif type II, uncontrolled Type II or unspecified type diabetes mellitus with neurological manifestations, uncontrolled Pure hypercholesterolemia Low back pain Lumbago SOB (shortness of breath) Shortness of breath Pure hypercholesterolemia- Primary Diabetes mellitus type 2, uncontrolled, without complications Type II or unspecified type diabetes mellitus without mention of complication, uncontrolled DDD (degenerative disc disease), lumbar Degeneration of lumbar or lumbosacral intervertebral disc Diabetes mellitus type 2, uncontrolled- Primary Type II or unspecified type diabetes mellitus without mention of complication, uncontrolled Essential hypertension, benign SOB (shortness of breath) Shortness of breath Pure hypercholesterolemia Diabetes mellitus type 2, uncontrolled- Primary Type II or unspecified type diabetes mellitus without mention of complication, uncontrolled Neuropathy Mononeuritis of unspecified site Essential hypertension, benign Diabetic polyneuropathy associated with type 2 diabetes mellitus (HCC) Rash of unknown cause Uncontrolled type 2 diabetes mellitus with complication, with long-term current use of insulin- Primary Other diabetic neurological complication associated with type 2 diabetes mellitus (HCC) Osteoarthritis of spine, unspecified spinal osteoarthritis complication status, unspecified spinal region Uncontrolled type 2 diabetes mellitus with complication, with long-term current use of insulin- Primary Pure hypercholesterolemia Essential hypertension, benign Other fatigue Other diabetic neurological complication associated with type 2 diabetes mellitus (HCC)- Primary Uncontrolled type 2 diabetes mellitus without complication, without long-term current use of insulin Uncontrolled type 2 diabetes mellitus with complication, with long-term current use of insulin Palpitations Shortness of breath Other fatigue Essential hypertension, benign Iron deficiency anemia, unspecified iron deficiency anemia type- Primary TIA (transient ischemic attack) Unspecified transient cerebral ischemia Basilar artery stenosis Occlusion and stenosis of basilar artery without mention of cerebral infarction Need for influenza vaccination- Primary Need for prophylactic vaccination and inoculation against influenza Type 2 diabetes mellitus with stage 3b chronic kidney disease, with long-term current use of insulin (HCC) [facility]* Diagnosis Essential hypertension, benign- Primary DM neuro manif type II, uncontrolled Type II or unspecified type diabetes mellitus with neurological manifestations, uncontrolled Pure hypercholesterolemia Low back pain Lumbago SOB (shortness of breath) Shortness of breath Pure hypercholesterolemia- Primary Diabetes mellitus type 2, uncontrolled, without complications Type II or unspecified type diabetes mellitus without mention of complication, uncontrolled DDD (degenerative disc disease), lumbar Degeneration of lumbar or lumbosacral intervertebral disc Diabetes mellitus type 2, uncontrolled- Primary Type II or unspecified type diabetes mellitus without mention of complication, uncontrolled Essential hypertension, benign SOB (shortness of breath) Shortness of breath Pure hypercholesterolemia Diabetes mellitus type 2, uncontrolled- Primary Type II or unspecified type diabetes mellitus without mention of complication, uncontrolled Neuropathy Mononeuritis of unspecified site Essential hypertension, benign Diabetic polyneuropathy associated with type 2 diabetes mellitus (HCC) Rash of unknown cause Uncontrolled type 2 diabetes mellitus with complication, with long-term current use of insulin- Primary Other diabetic neurological complication associated with type 2 diabetes mellitus (HCC) Osteoarthritis of spine, unspecified spinal osteoarthritis complication status, unspecified spinal region Uncontrolled type 2 diabetes mellitus with complication, with long-term current use of insulin- Primary Pure hypercholesterolemia Essential hypertension, benign Other fatigue Other diabetic neurological complication associated with type 2 diabetes mellitus (HCC)- Primary Uncontrolled type 2 diabetes mellitus without complication, without long-term current use of insulin Uncontrolled type 2 diabetes mellitus with complication, with long-term current use of insulin Palpitations Shortness of breath Other fatigue Essential hypertension, benign Iron deficiency anemia, unspecified iron deficiency anemia type- Primary TIA (transient ischemic attack) Unspecified transient cerebral ischemia Basilar artery stenosis Occlusion and stenosis of basilar artery without mention of cerebral infarction Chronic kidney disease, stage 4 (severe) (HCC)- Primary Type 2 diabetes mellitus with stage 3b chronic kidney disease, with long-term current use of insulin (HCC) Essential hypertension, benign Anemia, unspecified type documented in this encounter [facility] note* Diagnosis Essential hypertension, benign- Primary DM neuro manif type II, uncontrolled Type II or unspecified type diabetes mellitus with neurological manifestations, uncontrolled Pure hypercholesterolemia Low back pain Lumbago SOB (shortness of breath) Shortness of breath Pure hypercholesterolemia- Primary Diabetes mellitus type 2, uncontrolled, without complications Type II or unspecified type diabetes mellitus without mention of complication, uncontrolled DDD (degenerative disc disease), lumbar Degeneration of lumbar or lumbosacral intervertebral disc Diabetes mellitus type 2, uncontrolled- Primary Type II or unspecified type diabetes mellitus without mention of complication, uncontrolled Essential hypertension, benign SOB (shortness of breath) Shortness of breath Pure hypercholesterolemia Diabetes mellitus type 2, uncontrolled- Primary Type II or unspecified type diabetes mellitus without mention of complication, uncontrolled Neuropathy Mononeuritis of unspecified site Essential hypertension, benign Diabetic polyneuropathy associated with type 2 diabetes mellitus (HCC) Rash of unknown cause Uncontrolled type 2 diabetes mellitus with complication, with long-term current use of insulin- Primary Other diabetic neurological complication associated with type 2 diabetes mellitus (HCC) Osteoarthritis of spine, unspecified spinal osteoarthritis complication status, unspecified spinal region Uncontrolled type 2 diabetes mellitus with complication, with long-term current use of insulin- Primary Pure hypercholesterolemia Essential hypertension, benign Other fatigue Other diabetic neurological complication associated with type 2 diabetes mellitus (HCC)- Primary Uncontrolled type 2 diabetes mellitus without complication, without long-term current use of insulin Uncontrolled type 2 diabetes mellitus with complication, with long-term current use of insulin Palpitations Shortness of breath Other fatigue Essential hypertension, benign Iron deficiency anemia, unspecified iron deficiency anemia type- Primary TIA (transient ischemic attack) Unspecified transient cerebral ischemia Basilar artery stenosis Occlusion and stenosis of basilar artery without mention of cerebral infarction Constipation, unspecified constipation type 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, unspecified whether retirement insulin use (HCC)- Primary Primary hypertension Unspecified essential hypertension Metabolic acidosis Acidosis Persistent proteinuria Proteinuria Anemia of renal disease Anemia in chronic kidney disease Secondary renal hyperparathyroidism (HCC) Secondary hyperparathyroidism (of renal origin) Hyperlipidemia, unspecified hyperlipidemia type Other iron deficiency anemia Hypervitaminosis D Benign prostatic hyperplasia without lower urinary tract symptoms [facility] Diagnosis Essential hypertension, benign- Primary DM neuro manif type II, uncontrolled Type II or unspecified type diabetes mellitus with neurological manifestations, uncontrolled Pure hypercholesterolemia Low back pain Lumbago SOB (shortness of breath) Shortness of breath Pure hypercholesterolemia- Primary Diabetes mellitus type 2, uncontrolled, without complications Type II or unspecified type diabetes mellitus without mention of complication, uncontrolled DDD (degenerative disc disease), lumbar Degeneration of lumbar or lumbosacral intervertebral disc Diabetes mellitus type 2, uncontrolled- Primary Type II or unspecified type diabetes mellitus without mention of complication, uncontrolled Essential hypertension, benign SOB (shortness of breath) Shortness of breath Pure hypercholesterolemia Diabetes mellitus type 2, uncontrolled- Primary Type II or unspecified type diabetes mellitus without mention of complication, uncontrolled Neuropathy Mononeuritis of unspecified site Essential hypertension, benign Diabetic polyneuropathy associated with type 2 diabetes mellitus (HCC) Rash of unknown cause Uncontrolled type 2 diabetes mellitus with complication, with long-term current use of insulin- Primary Other diabetic neurological complication associated with type 2 diabetes mellitus (HCC) Osteoarthritis of spine, unspecified spinal osteoarthritis complication status, unspecified spinal region Uncontrolled type 2 diabetes mellitus with complication, with long-term current use of insulin- Primary Pure hypercholesterolemia Essential hypertension, benign Other fatigue Other diabetic neurological complication associated with type 2 diabetes mellitus (HCC)- Primary Uncontrolled type 2 diabetes mellitus without complication, without long-term current use of insulin Uncontrolled type 2 diabetes mellitus with complication, with long-term current use of insulin Palpitations Shortness of breath Other fatigue Essential hypertension, benign Iron deficiency anemia, unspecified iron deficiency anemia type- Primary TIA (transient ischemic attack) Unspecified transient cerebral ischemia Basilar artery stenosis Occlusion and stenosis of basilar artery without mention of cerebral infarction 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, 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)- Primary Primary hypertension Unspecified essential hypertension Metabolic acidosis Acidosis Persistent proteinuria Proteinuria Anemia of renal disease Anemia in chronic kidney disease Secondary renal hyperparathyroidism (HCC) Secondary hyperparathyroidism (of renal origin) Hyperlipidemia, unspecified hyperlipidemia type Other iron deficiency anemia Hypervitaminosis D Benign prostatic hyperplasia without lower urinary tract symptoms 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, 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) Primary hypertension Unspecified essential hypertension Metabolic acidosis Acidosis Secondary renal hyperparathyroidism (HCC) Secondary hyperparathyroidism (of renal origin) Hypervitaminosis D Persistent proteinuria Proteinuria Anemia of renal disease Anemia in chronic kidney disease Other iron deficiency anemia [facility] Diagnosis Essential hypertension, benign- Primary DM neuro manif type II, uncontrolled Type II or unspecified type diabetes mellitus with neurological manifestations, uncontrolled Pure hypercholesterolemia Low back pain Lumbago SOB (shortness of breath) Shortness of breath Pure hypercholesterolemia- Primary Diabetes mellitus type 2, uncontrolled, without complications Type II or unspecified type diabetes mellitus without mention of complication, uncontrolled DDD (degenerative disc disease), lumbar Degeneration of lumbar or lumbosacral intervertebral disc Diabetes mellitus type 2, uncontrolled- Primary Type II or unspecified type diabetes mellitus without mention of complication, uncontrolled Essential hypertension, benign SOB (shortness of breath) Shortness of breath Pure hypercholesterolemia Diabetes mellitus type 2, uncontrolled- Primary Type II or unspecified type diabetes mellitus without mention of complication, uncontrolled Neuropathy Mononeuritis of unspecified site Essential hypertension, benign Diabetic polyneuropathy associated with type 2 diabetes mellitus (HCC) Rash of unknown cause Uncontrolled type 2 diabetes mellitus with complication, with long-term current use of insulin- Primary Other diabetic neurological complication associated with type 2 diabetes mellitus (HCC) Osteoarthritis of spine, unspecified spinal osteoarthritis complication status, unspecified spinal region Uncontrolled type 2 diabetes mellitus with complication, with long-term current use of insulin- Primary Pure hypercholesterolemia Essential hypertension, benign Other fatigue Other diabetic neurological complication associated with type 2 diabetes mellitus (HCC)- Primary Uncontrolled type 2 diabetes mellitus without complication, without long-term current use of insulin Uncontrolled type 2 diabetes mellitus with complication, with long-term current use of insulin Palpitations Shortness of breath Other fatigue Essential hypertension, benign Iron deficiency anemia, unspecified iron deficiency anemia type- Primary TIA (transient ischemic attack) Unspecified transient cerebral ischemia Basilar artery stenosis Occlusion and stenosis of basilar artery without mention of cerebral infarction 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) (HCC)- Primary [facility] Diagnosis Essential hypertension, benign- Primary DM neuro manif type II, uncontrolled Type II or unspecified type diabetes mellitus with neurological manifestations, uncontrolled Pure hypercholesterolemia Low back pain Lumbago SOB (shortness of breath) Shortness of breath Pure hypercholesterolemia- Primary Diabetes mellitus type 2, uncontrolled, without complications Type II or unspecified type diabetes mellitus without mention of complication, uncontrolled DDD (degenerative disc disease), lumbar Degeneration of lumbar or lumbosacral intervertebral disc Diabetes mellitus type 2, uncontrolled- Primary Type II or unspecified type diabetes mellitus without mention of complication, uncontrolled Essential hypertension, benign SOB (shortness of breath) Shortness of breath Pure hypercholesterolemia Diabetes mellitus type 2, uncontrolled- Primary Type II or unspecified type diabetes mellitus without mention of complication, uncontrolled Neuropathy Mononeuritis of unspecified site Essential hypertension, benign Diabetic polyneuropathy associated with type 2 diabetes mellitus (HCC) Rash of unknown cause Uncontrolled type 2 diabetes mellitus with complication, with long-term current use of insulin- Primary Other diabetic neurological complication associated with type 2 diabetes mellitus (HCC) Osteoarthritis of spine, unspecified spinal osteoarthritis complication status, unspecified spinal region Uncontrolled type 2 diabetes mellitus with complication, with long-term current use of insulin- Primary Pure hypercholesterolemia Essential hypertension, benign Other fatigue Other diabetic neurological complication associated with type 2 diabetes mellitus (HCC)- Primary Uncontrolled type 2 diabetes mellitus without complication, without long-term current use of insulin Uncontrolled type 2 diabetes mellitus with complication, with long-term current use of insulin Palpitations Shortness of breath Other fatigue Essential hypertension, benign Iron deficiency anemia, unspecified iron deficiency anemia type- Primary TIA (transient ischemic attack) Unspecified transient cerebral ischemia Basilar artery stenosis Occlusion and stenosis of basilar artery without mention of cerebral infarction Anemia, unspecified type- Primary Abnormal weight loss Loss of weight Pacemaker Cardiac pacemaker in situ Polyp of colon, unspecified part of colon, unspecified type Family history of colon cancer in [facility] Diagnosis Essential hypertension, benign- Primary DM neuro manif type II, uncontrolled Type II or unspecified type diabetes mellitus with neurological manifestations, uncontrolled Pure hypercholesterolemia Low back pain Lumbago SOB (shortness of breath) Shortness of breath Pure hypercholesterolemia- Primary Diabetes mellitus type 2, uncontrolled, without complications Type II or unspecified type diabetes mellitus without mention of complication, uncontrolled DDD (degenerative disc disease), lumbar Degeneration of lumbar or lumbosacral intervertebral disc Diabetes mellitus type 2, uncontrolled- Primary Type II or unspecified type diabetes mellitus without mention of complication, uncontrolled Essential hypertension, benign SOB (shortness of breath) Shortness of breath Pure hypercholesterolemia Diabetes mellitus type 2, uncontrolled- Primary Type II or unspecified type diabetes mellitus without mention of complication, uncontrolled Neuropathy Mononeuritis of unspecified site Essential hypertension, benign Diabetic polyneuropathy associated with type 2 diabetes mellitus (HCC) Rash of unknown cause Uncontrolled type 2 diabetes mellitus with complication, with long-term current use of insulin- Primary Other diabetic neurological complication associated with type 2 diabetes mellitus (HCC) Osteoarthritis of spine, unspecified spinal osteoarthritis complication status, unspecified spinal region Uncontrolled type 2 diabetes mellitus with complication, with long-term current use of insulin- Primary Pure hypercholesterolemia Essential hypertension, benign Other fatigue Other diabetic neurological complication associated with type 2 diabetes mellitus (HCC)- Primary Uncontrolled type 2 diabetes mellitus without complication, without long-term current use of insulin Uncontrolled type 2 diabetes mellitus with complication, with long-term current use of insulin Palpitations Shortness of breath Other fatigue Essential hypertension, benign Iron deficiency anemia, unspecified iron deficiency anemia type- Primary TIA (transient ischemic attack) Unspecified transient cerebral ischemia Basilar artery stenosis Occlusion and stenosis of basilar artery without mention of cerebral infarction Anemia, unspecified type- Primary [facility] Diagnosis Essential hypertension, benign- Primary DM neuro manif type II, uncontrolled Type II or unspecified type diabetes mellitus with neurological manifestations, uncontrolled Pure hypercholesterolemia Low back pain Lumbago SOB (shortness of breath) Shortness of breath Pure hypercholesterolemia- Primary Diabetes mellitus type 2, uncontrolled, without complications Type II or unspecified type diabetes mellitus without mention of complication, uncontrolled DDD (degenerative disc disease), lumbar Degeneration of lumbar or lumbosacral intervertebral disc Diabetes mellitus type 2, uncontrolled- Primary Type II or unspecified type diabetes mellitus without mention of complication, uncontrolled Essential hypertension, benign SOB (shortness of breath) Shortness of breath Pure hypercholesterolemia Diabetes mellitus type 2, uncontrolled- Primary Type II or unspecified type diabetes mellitus without mention of complication, uncontrolled Neuropathy Mononeuritis of unspecified site Essential hypertension, benign Diabetic polyneuropathy associated with type 2 diabetes mellitus (HCC) Rash of unknown cause Uncontrolled type 2 diabetes mellitus with complication, with long-term current use of insulin- Primary Other diabetic neurological complication associated with type 2 diabetes mellitus (HCC) Osteoarthritis of spine, unspecified spinal osteoarthritis complication status, unspecified spinal region Uncontrolled type 2 diabetes mellitus with complication, with long-term current use of insulin- Primary Pure hypercholesterolemia Essential hypertension, benign Other fatigue Other diabetic neurological complication associated with type 2 diabetes mellitus (HCC)- Primary Uncontrolled type 2 diabetes mellitus without complication, without long-term current use of insulin Uncontrolled type 2 diabetes mellitus with complication, with long-term current use of insulin Palpitations Shortness of breath Other fatigue Essential hypertension, benign Iron deficiency anemia, unspecified iron deficiency anemia type- Primary TIA (transient ischemic attack) Unspecified transient cerebral ischemia Basilar artery stenosis Occlusion and stenosis of basilar artery without mention of cerebral infarction Insomnia, unspecified type [facility] Diagnosis Essential hypertension, benign- Primary DM neuro manif type II, uncontrolled Type II or unspecified type diabetes mellitus with neurological manifestations, uncontrolled Pure hypercholesterolemia Low back pain Lumbago SOB (shortness of breath) Shortness of breath Pure hypercholesterolemia- Primary Diabetes mellitus type 2, uncontrolled, without complications Type II or unspecified type diabetes mellitus without mention of complication, uncontrolled DDD (degenerative disc disease), lumbar Degeneration of lumbar or lumbosacral intervertebral disc Diabetes mellitus type 2, uncontrolled- Primary Type II or unspecified type diabetes mellitus without mention of complication, uncontrolled Essential hypertension, benign SOB (shortness of breath) Shortness of breath Pure hypercholesterolemia Diabetes mellitus type 2, uncontrolled- Primary Type II or unspecified type diabetes mellitus without mention of complication, uncontrolled Neuropathy Mononeuritis of unspecified site Essential hypertension, benign Diabetic polyneuropathy associated with type 2 diabetes mellitus (HCC) Rash of unknown cause Uncontrolled type 2 diabetes mellitus with complication, with long-term current use of insulin- Primary Other diabetic neurological complication associated with type 2 diabetes mellitus (HCC) Osteoarthritis of spine, unspecified spinal osteoarthritis complication status, unspecified spinal region Uncontrolled type 2 diabetes mellitus with complication, with long-term current use of insulin- Primary Pure hypercholesterolemia Essential hypertension, benign Other fatigue Other diabetic neurological complication associated with type 2 diabetes mellitus (HCC)- Primary Uncontrolled type 2 diabetes mellitus without complication, without long-term current use of insulin Uncontrolled type 2 diabetes mellitus with complication, with long-term current use of insulin Palpitations Shortness of breath Other fatigue Essential hypertension, benign Iron deficiency anemia, unspecified iron deficiency anemia type- Primary TIA (transient ischemic attack) Unspecified transient cerebral ischemia Basilar artery stenosis Occlusion and stenosis of basilar artery without mention of cerebral infarction Anemia associated with stage 4 chronic renal failure (HCC) (HCC)- Primary [facility] Diagnosis Essential hypertension, benign- Primary DM neuro manif type II, uncontrolled Type II or unspecified type diabetes mellitus with neurological manifestations, uncontrolled Pure hypercholesterolemia Low back pain Lumbago SOB (shortness of breath) Shortness of breath Pure hypercholesterolemia- Primary Diabetes mellitus type 2, uncontrolled, without complications Type II or unspecified type diabetes mellitus without mention of complication, uncontrolled DDD (degenerative disc disease), lumbar Degeneration of lumbar or lumbosacral intervertebral disc Diabetes mellitus type 2, uncontrolled- Primary Type II or unspecified type diabetes mellitus without mention of complication, uncontrolled Essential hypertension, benign SOB (shortness of breath) Shortness of breath Pure hypercholesterolemia Diabetes mellitus type 2, uncontrolled- Primary Type II or unspecified type diabetes mellitus without mention of complication, uncontrolled Neuropathy Mononeuritis of unspecified site Essential hypertension, benign Diabetic polyneuropathy associated with type 2 diabetes mellitus (HCC) Rash of unknown cause Uncontrolled type 2 diabetes mellitus with complication, with long-term current use of insulin- Primary Other diabetic neurological complication associated with type 2 diabetes mellitus (HCC) Osteoarthritis of spine, unspecified spinal osteoarthritis complication status, unspecified spinal region Uncontrolled type 2 diabetes mellitus with complication, with long-term current use of insulin- Primary Pure hypercholesterolemia Essential hypertension, benign Other fatigue Other diabetic neurological complication associated with type 2 diabetes mellitus (HCC)- Primary Uncontrolled type 2 diabetes mellitus without complication, without long-term current use of insulin Uncontrolled type 2 diabetes mellitus with complication, with long-term current use of insulin Palpitations Shortness of breath Other fatigue Essential hypertension, benign Iron deficiency anemia, unspecified iron deficiency anemia type- Primary TIA (transient ischemic attack) Unspecified transient cerebral ischemia Basilar artery stenosis Occlusion and stenosis of basilar artery without mention of cerebral infarction Anemia associated with stage 4 chronic renal failure (HCC) (HCC)- Primary [facility] Diagnosis Essential hypertension, benign- Primary DM neuro manif type II, uncontrolled Type II or unspecified type diabetes mellitus with neurological manifestations, uncontrolled Pure hypercholesterolemia Low back pain Lumbago SOB (shortness of breath) Shortness of breath Pure hypercholesterolemia- Primary Diabetes mellitus type 2, uncontrolled, without complications Type II or unspecified type diabetes mellitus without mention of complication, uncontrolled DDD (degenerative disc disease), lumbar Degeneration of lumbar or lumbosacral intervertebral disc Diabetes mellitus type 2, uncontrolled- Primary Type II or unspecified type diabetes mellitus without mention of complication, uncontrolled Essential hypertension, benign SOB (shortness of breath) Shortness of breath Pure hypercholesterolemia Diabetes mellitus type 2, uncontrolled- Primary Type II or unspecified type diabetes mellitus without mention of complication, uncontrolled Neuropathy Mononeuritis of unspecified site Essential hypertension, benign Diabetic polyneuropathy associated with type 2 diabetes mellitus (HCC) Rash of unknown cause Uncontrolled type 2 diabetes mellitus with complication, with long-term current use of insulin- Primary Other diabetic neurological complication associated with type 2 diabetes mellitus (HCC) Osteoarthritis of spine, unspecified spinal osteoarthritis complication status, unspecified spinal region Uncontrolled type 2 diabetes mellitus with complication, with long-term current use of insulin- Primary Pure hypercholesterolemia Essential hypertension, benign Other fatigue Other diabetic neurological complication associated with type 2 diabetes mellitus (HCC)- Primary Uncontrolled type 2 diabetes mellitus without complication, without long-term current use of insulin Uncontrolled type 2 diabetes mellitus with complication, with long-term current use of insulin Palpitations Shortness of breath Other fatigue Essential hypertension, benign Iron deficiency anemia, unspecified iron deficiency anemia type- Primary TIA (transient ischemic attack) Unspecified transient cerebral ischemia Basilar artery stenosis Occlusion and stenosis of basilar artery without mention of cerebral infarction Type 2 diabetes mellitus with stage 3b chronic kidney disease, with long-term current use of insulin (HCC) [facility] Diagnosis Essential hypertension, benign- Primary DM neuro manif type II, uncontrolled Type II or unspecified type diabetes mellitus with neurological manifestations, uncontrolled Pure hypercholesterolemia Low back pain Lumbago SOB (shortness of breath) Shortness of breath Pure hypercholesterolemia- Primary Diabetes mellitus type 2, uncontrolled, without complications Type II or unspecified type diabetes mellitus without mention of complication, uncontrolled DDD (degenerative disc disease), lumbar Degeneration of lumbar or lumbosacral intervertebral disc Diabetes mellitus type 2, uncontrolled- Primary Type II or unspecified type diabetes mellitus without mention of complication, uncontrolled Essential hypertension, benign SOB (shortness of breath) Shortness of breath Pure hypercholesterolemia Diabetes mellitus type 2, uncontrolled- Primary Type II or unspecified type diabetes mellitus without mention of complication, uncontrolled Neuropathy Mononeuritis of unspecified site Essential hypertension, benign Diabetic polyneuropathy associated with type 2 diabetes mellitus (HCC) Rash of unknown cause Uncontrolled type 2 diabetes mellitus with complication, with long-term current use of insulin- Primary Other diabetic neurological complication associated with type 2 diabetes mellitus (HCC) Osteoarthritis of spine, unspecified spinal osteoarthritis complication status, unspecified spinal region Uncontrolled type 2 diabetes mellitus with complication, with long-term current use of insulin- Primary Pure hypercholesterolemia Essential hypertension, benign Other fatigue Other diabetic neurological complication associated with type 2 diabetes mellitus (HCC)- Primary Uncontrolled type 2 diabetes mellitus without complication, without long-term current use of insulin Uncontrolled type 2 diabetes mellitus with complication, with long-term current use of insulin Palpitations Shortness of breath Other fatigue Essential hypertension, benign Iron deficiency anemia, unspecified iron deficiency anemia type- Primary TIA (transient ischemic attack) Unspecified transient cerebral ischemia Basilar artery stenosis Occlusion and stenosis of basilar artery without mention of cerebral infarction Anemia associated with stage 4 chronic renal failure (HCC) (HCC)- Primary documented in this encounter [facility] note* Diagnosis Essential hypertension, benign- Primary DM neuro manif type II, uncontrolled Type II or unspecified type diabetes mellitus with neurological manifestations, uncontrolled Pure hypercholesterolemia Low back pain Lumbago SOB (shortness of breath) Shortness of breath Pure hypercholesterolemia- Primary Diabetes mellitus type 2, uncontrolled, without complications Type II or unspecified type diabetes mellitus without mention of complication, uncontrolled DDD (degenerative disc disease), lumbar Degeneration of lumbar or lumbosacral intervertebral disc Diabetes mellitus type 2, uncontrolled- Primary Type II or unspecified type diabetes mellitus without mention of complication, uncontrolled Essential hypertension, benign SOB (shortness of breath) Shortness of breath Pure hypercholesterolemia Diabetes mellitus type 2, uncontrolled- Primary Type II or unspecified type diabetes mellitus without mention of complication, uncontrolled Neuropathy Mononeuritis of unspecified site Essential hypertension, benign Diabetic polyneuropathy associated with type 2 diabetes mellitus (HCC) Rash of unknown cause Uncontrolled type 2 diabetes mellitus with complication, with long-term current use of insulin- Primary Other diabetic neurological complication associated with type 2 diabetes mellitus (HCC) Osteoarthritis of spine, unspecified spinal osteoarthritis complication status, unspecified spinal region Uncontrolled type 2 diabetes mellitus with complication, with long-term current use of insulin- Primary Pure hypercholesterolemia Essential hypertension, benign Other fatigue Other diabetic neurological complication associated with type 2 diabetes mellitus (HCC)- Primary Uncontrolled type 2 diabetes mellitus without complication, without long-term current use of insulin Uncontrolled type 2 diabetes mellitus with complication, with long-term current use of insulin Palpitations Shortness of breath Other fatigue Essential hypertension, benign Iron deficiency anemia, unspecified iron deficiency anemia type- Primary TIA (transient ischemic attack) Unspecified transient cerebral ischemia Basilar artery stenosis Occlusion and stenosis of basilar artery without mention of cerebral infarction Anemia associated with stage 4 chronic renal failure (HCC) (HCC)- Primary [facility] Diagnosis Essential hypertension, benign- Primary DM neuro manif type II, uncontrolled Type II or unspecified type diabetes mellitus with neurological manifestations, uncontrolled Pure hypercholesterolemia Low back pain Lumbago SOB (shortness of breath) Shortness of breath Pure hypercholesterolemia- Primary Diabetes mellitus type 2, uncontrolled, without complications Type II or unspecified type diabetes mellitus without mention of complication, uncontrolled DDD (degenerative disc disease), lumbar Degeneration of lumbar or lumbosacral intervertebral disc Diabetes mellitus type 2, uncontrolled- Primary Type II or unspecified type diabetes mellitus without mention of complication, uncontrolled Essential hypertension, benign SOB (shortness of breath) Shortness of breath Pure hypercholesterolemia Diabetes mellitus type 2, uncontrolled- Primary Type II or unspecified type diabetes mellitus without mention of complication, uncontrolled Neuropathy Mononeuritis of unspecified site Essential hypertension, benign Diabetic polyneuropathy associated with type 2 diabetes mellitus (HCC) Rash of unknown cause Uncontrolled type 2 diabetes mellitus with complication, with long-term current use of insulin- Primary Other diabetic neurological complication associated with type 2 diabetes mellitus (HCC) Osteoarthritis of spine, unspecified spinal osteoarthritis complication status, unspecified spinal region Uncontrolled type 2 diabetes mellitus with complication, with long-term current use of insulin- Primary Pure hypercholesterolemia Essential hypertension, benign Other fatigue Other diabetic neurological complication associated with type 2 diabetes mellitus (HCC)- Primary Uncontrolled type 2 diabetes mellitus without complication, without long-term current use of insulin Uncontrolled type 2 diabetes mellitus with complication, with long-term current use of insulin Palpitations Shortness of breath Other fatigue Essential hypertension, benign Iron deficiency anemia, unspecified iron deficiency anemia type- Primary TIA (transient ischemic attack) Unspecified transient cerebral ischemia Basilar artery stenosis Occlusion and stenosis of basilar artery without mention of cerebral infarction Anemia associated with stage 4 chronic renal failure (HCC) (HCC)- Primary [facility] Diagnosis Essential hypertension, benign- Primary DM neuro manif type II, uncontrolled Type II or unspecified type diabetes mellitus with neurological manifestations, uncontrolled Pure hypercholesterolemia Low back pain Lumbago SOB (shortness of breath) Shortness of breath Pure hypercholesterolemia- Primary Diabetes mellitus type 2, uncontrolled, without complications Type II or unspecified type diabetes mellitus without mention of complication, uncontrolled DDD (degenerative disc disease), lumbar Degeneration of lumbar or lumbosacral intervertebral disc Diabetes mellitus type 2, uncontrolled- Primary Type II or unspecified type diabetes mellitus without mention of complication, uncontrolled Essential hypertension, benign SOB (shortness of breath) Shortness of breath Pure hypercholesterolemia Diabetes mellitus type 2, uncontrolled- Primary Type II or unspecified type diabetes mellitus without mention of complication, uncontrolled Neuropathy Mononeuritis of unspecified site Essential hypertension, benign Diabetic polyneuropathy associated with type 2 diabetes mellitus (HCC) Rash of unknown cause Uncontrolled type 2 diabetes mellitus with complication, with long-term current use of insulin- Primary Other diabetic neurological complication associated with type 2 diabetes mellitus (HCC) Osteoarthritis of spine, unspecified spinal osteoarthritis complication status, unspecified spinal region Uncontrolled type 2 diabetes mellitus with complication, with long-term current use of insulin- Primary Pure hypercholesterolemia Essential hypertension, benign Other fatigue Other diabetic neurological complication associated with type 2 diabetes mellitus (HCC)- Primary Uncontrolled type 2 diabetes mellitus without complication, without long-term current use of insulin Uncontrolled type 2 diabetes mellitus with complication, with long-term current use of insulin Palpitations Shortness of breath Other fatigue Essential hypertension, benign Iron deficiency anemia, unspecified iron deficiency anemia type- Primary TIA (transient ischemic attack) Unspecified transient cerebral ischemia Basilar artery stenosis Occlusion and stenosis of basilar artery without mention of cerebral infarction Essential hypertension, benign [facility] Diagnosis Essential hypertension, benign- Primary DM neuro manif type II, uncontrolled Type II or unspecified type diabetes mellitus with neurological manifestations, uncontrolled Pure hypercholesterolemia Low back pain Lumbago SOB (shortness of breath) Shortness of breath Pure hypercholesterolemia- Primary Diabetes mellitus type 2, uncontrolled, without complications Type II or unspecified type diabetes mellitus without mention of complication, uncontrolled DDD (degenerative disc disease), lumbar Degeneration of lumbar or lumbosacral intervertebral disc Diabetes mellitus type 2, uncontrolled- Primary Type II or unspecified type diabetes mellitus without mention of complication, uncontrolled Essential hypertension, benign SOB (shortness of breath) Shortness of breath Pure hypercholesterolemia Diabetes mellitus type 2, uncontrolled- Primary Type II or unspecified type diabetes mellitus without mention of complication, uncontrolled Neuropathy Mononeuritis of unspecified site Essential hypertension, benign Diabetic polyneuropathy associated with type 2 diabetes mellitus (HCC) Rash of unknown cause Uncontrolled type 2 diabetes mellitus with complication, with long-term current use of insulin- Primary Other diabetic neurological complication associated with type 2 diabetes mellitus (HCC) Osteoarthritis of spine, unspecified spinal osteoarthritis complication status, unspecified spinal region Uncontrolled type 2 diabetes mellitus with complication, with long-term current use of insulin- Primary Pure hypercholesterolemia Essential hypertension, benign Other fatigue Other diabetic neurological complication associated with type 2 diabetes mellitus (HCC)- Primary Uncontrolled type 2 diabetes mellitus without complication, without long-term current use of insulin Uncontrolled type 2 diabetes mellitus with complication, with long-term current use of insulin Palpitations Shortness of breath Other fatigue Essential hypertension, benign Iron deficiency anemia, unspecified iron deficiency anemia type- Primary TIA (transient ischemic attack) Unspecified transient cerebral ischemia Basilar artery stenosis Occlusion and stenosis of basilar artery without mention of cerebral infarction Constipation, unspecified constipation type Pure hypercholesterolemia [facility] Diagnosis Essential hypertension, benign- Primary DM neuro manif type II, uncontrolled Type II or unspecified type diabetes mellitus with neurological manifestations, uncontrolled Pure hypercholesterolemia Low back pain Lumbago SOB (shortness of breath) Shortness of breath Pure hypercholesterolemia- Primary Diabetes mellitus type 2, uncontrolled, without complications Type II or unspecified type diabetes mellitus without mention of complication, uncontrolled DDD (degenerative disc disease), lumbar Degeneration of lumbar or lumbosacral intervertebral disc Diabetes mellitus type 2, uncontrolled- Primary Type II or unspecified type diabetes mellitus without mention of complication, uncontrolled Essential hypertension, benign SOB (shortness of breath) Shortness of breath Pure hypercholesterolemia Diabetes mellitus type 2, uncontrolled- Primary Type II or unspecified type diabetes mellitus without mention of complication, uncontrolled Neuropathy Mononeuritis of unspecified site Essential hypertension, benign Diabetic polyneuropathy associated with type 2 diabetes mellitus (HCC) Rash of unknown cause Uncontrolled type 2 diabetes mellitus with complication, with long-term current use of insulin- Primary Other diabetic neurological complication associated with type 2 diabetes mellitus (HCC) Osteoarthritis of spine, unspecified spinal osteoarthritis complication status, unspecified spinal region Uncontrolled type 2 diabetes mellitus with complication, with long-term current use of insulin- Primary Pure hypercholesterolemia Essential hypertension, benign Other fatigue Other diabetic neurological complication associated with type 2 diabetes mellitus (HCC)- Primary Uncontrolled type 2 diabetes mellitus without complication, without long-term current use of insulin Uncontrolled type 2 diabetes mellitus with complication, with long-term current use of insulin Palpitations Shortness of breath Other fatigue Essential hypertension, benign Iron deficiency anemia, unspecified iron deficiency anemia type- Primary TIA (transient ischemic attack) Unspecified transient cerebral ischemia Basilar artery stenosis Occlusion and stenosis of basilar artery without mention of cerebral infarction Uncontrolled hypertension Unspecified essential hypertension [facility] Diagnosis Essential hypertension, benign- Primary DM neuro manif type II, uncontrolled Type II or unspecified type diabetes mellitus with neurological manifestations, uncontrolled Pure hypercholesterolemia Low back pain Lumbago SOB (shortness of breath) Shortness of breath Pure hypercholesterolemia- Primary Diabetes mellitus type 2, uncontrolled, without complications Type II or unspecified type diabetes mellitus without mention of complication, uncontrolled DDD (degenerative disc disease), lumbar Degeneration of lumbar or lumbosacral intervertebral disc Diabetes mellitus type 2, uncontrolled- Primary Type II or unspecified type diabetes mellitus without mention of complication, uncontrolled Essential hypertension, benign SOB (shortness of breath) Shortness of breath Pure hypercholesterolemia Diabetes mellitus type 2, uncontrolled- Primary Type II or unspecified type diabetes mellitus without mention of complication, uncontrolled Neuropathy Mononeuritis of unspecified site Essential hypertension, benign Diabetic polyneuropathy associated with type 2 diabetes mellitus (HCC) Rash of unknown cause Uncontrolled type 2 diabetes mellitus with complication, with long-term current use of insulin- Primary Other diabetic neurological complication associated with type 2 diabetes mellitus (HCC) Osteoarthritis of spine, unspecified spinal osteoarthritis complication status, unspecified spinal region Uncontrolled type 2 diabetes mellitus with complication, with long-term current use of insulin- Primary Pure hypercholesterolemia Essential hypertension, benign Other fatigue Other diabetic neurological complication associated with type 2 diabetes mellitus (HCC)- Primary Uncontrolled type 2 diabetes mellitus without complication, without long-term current use of insulin Uncontrolled type 2 diabetes mellitus with complication, with long-term current use of insulin Palpitations Shortness of breath Other fatigue Essential hypertension, benign Iron deficiency anemia, unspecified iron deficiency anemia type- Primary TIA (transient ischemic attack) Unspecified transient cerebral ischemia Basilar artery stenosis Occlusion and stenosis of basilar artery without mention of cerebral infarction Screening for colon cancer- Primary Special screening for malignant neoplasms, colon Screening for depression Encounter for screening examination for other mental health and behavioral disorders Diarrhea, unspecified type Other iron deficiency anemia Essential hypertension, benign Pure hypercholesterolemia Type 2 diabetes mellitus with stage 3b chronic kidney disease, with long-term current use of insulin (HCC) Anemia associated with stage 4 chronic renal failure (HCC) (HCC) documented in this encounter [facility] note* Diagnosis Essential hypertension, benign- Primary DM neuro manif type II, uncontrolled Type II or unspecified type diabetes mellitus with neurological manifestations, uncontrolled Pure hypercholesterolemia Low back pain Lumbago SOB (shortness of breath) Shortness of breath Pure hypercholesterolemia- Primary Diabetes mellitus type 2, uncontrolled, without complications Type II or unspecified type diabetes mellitus without mention of complication, uncontrolled DDD (degenerative disc disease), lumbar Degeneration of lumbar or lumbosacral intervertebral disc Diabetes mellitus type 2, uncontrolled- Primary Type II or unspecified type diabetes mellitus without mention of complication, uncontrolled Essential hypertension, benign SOB (shortness of breath) Shortness of breath Pure hypercholesterolemia Diabetes mellitus type 2, uncontrolled- Primary Type II or unspecified type diabetes mellitus without mention of complication, uncontrolled Neuropathy Mononeuritis of unspecified site Essential hypertension, benign Diabetic polyneuropathy associated with type 2 diabetes mellitus (HCC) Rash of unknown cause Uncontrolled type 2 diabetes mellitus with complication, with long-term current use of insulin- Primary Other diabetic neurological complication associated with type 2 diabetes mellitus (HCC) Osteoarthritis of spine, unspecified spinal osteoarthritis complication status, unspecified spinal region Uncontrolled type 2 diabetes mellitus with complication, with long-term current use of insulin- Primary Pure hypercholesterolemia Essential hypertension, benign Other fatigue Other diabetic neurological complication associated with type 2 diabetes mellitus (HCC)- Primary Uncontrolled type 2 diabetes mellitus without complication, without long-term current use of insulin Uncontrolled type 2 diabetes mellitus with complication, with long-term current use of insulin Palpitations Shortness of breath Other fatigue Essential hypertension, benign Iron deficiency anemia, unspecified iron deficiency anemia type- Primary TIA (transient ischemic attack) Unspecified transient cerebral ischemia Basilar artery stenosis Occlusion and stenosis of basilar artery without mention of cerebral infarction Type 2 diabetes mellitus 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, with long-term current use of insulin (HCC)- Primary Persistent proteinuria Proteinuria Primary hypertension Unspecified essential hypertension Benign prostatic hyperplasia without lower urinary tract symptoms Metabolic acidosis Acidosis Anemia of renal disease Anemia in chronic kidney disease Secondary renal hyperparathyroidism (HCC) Secondary hyperparathyroidism (of renal origin) Hyperlipidemia, unspecified hyperlipidemia type Hypervitaminosis D Diabetes mellitus treated with insulin (HCC)- Primary [facility] Diagnosis Essential hypertension, benign- Primary DM neuro manif type II, uncontrolled Type II or unspecified type diabetes mellitus with neurological manifestations, uncontrolled Pure hypercholesterolemia Low back pain Lumbago SOB (shortness of breath) Shortness of breath Pure hypercholesterolemia- Primary Diabetes mellitus type 2, uncontrolled, without complications Type II or unspecified type diabetes mellitus without mention of complication, uncontrolled DDD (degenerative disc disease), lumbar Degeneration of lumbar or lumbosacral intervertebral disc Diabetes mellitus type 2, uncontrolled- Primary Type II or unspecified type diabetes mellitus without mention of complication, uncontrolled Essential hypertension, benign SOB (shortness of breath) Shortness of breath Pure hypercholesterolemia Diabetes mellitus type 2, uncontrolled- Primary Type II or unspecified type diabetes mellitus without mention of complication, uncontrolled Neuropathy Mononeuritis of unspecified site Essential hypertension, benign Diabetic polyneuropathy associated with type 2 diabetes mellitus (HCC) Rash of unknown cause Uncontrolled type 2 diabetes mellitus with complication, with long-term current use of insulin- Primary Other diabetic neurological complication associated with type 2 diabetes mellitus (HCC) Osteoarthritis of spine, unspecified spinal osteoarthritis complication status, unspecified spinal region Uncontrolled type 2 diabetes mellitus with complication, with long-term current use of insulin- Primary Pure hypercholesterolemia Essential hypertension, benign Other fatigue Other diabetic neurological complication associated with type 2 diabetes mellitus (HCC)- Primary Uncontrolled type 2 diabetes mellitus without complication, without long-term current use of insulin Uncontrolled type 2 diabetes mellitus with complication, with long-term current use of insulin Palpitations Shortness of breath Other fatigue Essential hypertension, benign Iron deficiency anemia, unspecified iron deficiency anemia type- Primary TIA (transient ischemic attack) Unspecified transient cerebral ischemia Basilar artery stenosis Occlusion and stenosis of basilar artery without mention of cerebral infarction Chronic kidney disease, stage 4, severely decreased GFR (HCC) Chronic kidney disease, Stage IV (severe) Diabetes mellitus treated with insulin (HCC)- Primary [facility] Diagnosis Essential hypertension, benign- Primary DM neuro manif type II, uncontrolled Type II or unspecified type diabetes mellitus with neurological manifestations, uncontrolled Pure hypercholesterolemia Low back pain Lumbago SOB (shortness of breath) Shortness of breath Pure hypercholesterolemia- Primary Diabetes mellitus type 2, uncontrolled, without complications Type II or unspecified type diabetes mellitus without mention of complication, uncontrolled DDD (degenerative disc disease), lumbar Degeneration of lumbar or lumbosacral intervertebral disc Diabetes mellitus type 2, uncontrolled- Primary Type II or unspecified type diabetes mellitus without mention of complication, uncontrolled Essential hypertension, benign SOB (shortness of breath) Shortness of breath Pure hypercholesterolemia Diabetes mellitus type 2, uncontrolled- Primary Type II or unspecified type diabetes mellitus without mention of complication, uncontrolled Neuropathy Mononeuritis of unspecified site Essential hypertension, benign Diabetic polyneuropathy associated with type 2 diabetes mellitus (HCC) Rash of unknown cause Uncontrolled type 2 diabetes mellitus with complication, with long-term current use of insulin- Primary Other diabetic neurological complication associated with type 2 diabetes mellitus (HCC) Osteoarthritis of spine, unspecified spinal osteoarthritis complication status, unspecified spinal region Uncontrolled type 2 diabetes mellitus with complication, with long-term current use of insulin- Primary Pure hypercholesterolemia Essential hypertension, benign Other fatigue Other diabetic neurological complication associated with type 2 diabetes mellitus (HCC)- Primary Uncontrolled type 2 diabetes mellitus without complication, without long-term current use of insulin Uncontrolled type 2 diabetes mellitus with complication, with long-term current use of insulin Palpitations Shortness of breath Other fatigue Essential hypertension, benign Iron deficiency anemia, unspecified iron deficiency anemia type- Primary TIA (transient ischemic attack) Unspecified transient cerebral ischemia Basilar artery stenosis Occlusion and stenosis of basilar artery without mention of cerebral infarction Diabetic polyneuropathy associated with type 2 diabetes mellitus (HCC)- Primary Other iron deficiency anemia Anemia associated with stage 4 chronic renal failure (HCC) (HCC) [facility] Diagnosis Essential hypertension, benign- Primary DM neuro manif type II, uncontrolled Type II or unspecified type diabetes mellitus with neurological manifestations, uncontrolled Pure hypercholesterolemia Low back pain Lumbago SOB (shortness of breath) Shortness of breath Pure hypercholesterolemia- Primary Diabetes mellitus type 2, uncontrolled, without complications Type II or unspecified type diabetes mellitus without mention of complication, uncontrolled DDD (degenerative disc disease), lumbar Degeneration of lumbar or lumbosacral intervertebral disc Diabetes mellitus type 2, uncontrolled- Primary Type II or unspecified type diabetes mellitus without mention of complication, uncontrolled Essential hypertension, benign SOB (shortness of breath) Shortness of breath Pure hypercholesterolemia Diabetes mellitus type 2, uncontrolled- Primary Type II or unspecified type diabetes mellitus without mention of complication, uncontrolled Neuropathy Mononeuritis of unspecified site Essential hypertension, benign Diabetic polyneuropathy associated with type 2 diabetes mellitus (HCC) Rash of unknown cause Uncontrolled type 2 diabetes mellitus with complication, with long-term current use of insulin- Primary Other diabetic neurological complication associated with type 2 diabetes mellitus (HCC) Osteoarthritis of spine, unspecified spinal osteoarthritis complication status, unspecified spinal region Uncontrolled type 2 diabetes mellitus with complication, with long-term current use of insulin- Primary Pure hypercholesterolemia Essential hypertension, benign Other fatigue Other diabetic neurological complication associated with type 2 diabetes mellitus (HCC)- Primary Uncontrolled type 2 diabetes mellitus without complication, without long-term current use of insulin Uncontrolled type 2 diabetes mellitus with complication, with long-term current use of insulin Palpitations Shortness of breath Other fatigue Essential hypertension, benign Iron deficiency anemia, unspecified iron deficiency anemia type- Primary TIA (transient ischemic attack) Unspecified transient cerebral ischemia Basilar artery stenosis Occlusion and stenosis of basilar artery without mention of cerebral infarction Diabetes mellitus treated with insulin (HCC)- Primary [facility] Diagnosis Essential hypertension, benign- Primary DM neuro manif type II, uncontrolled Type II or unspecified type diabetes mellitus with neurological manifestations, uncontrolled Pure hypercholesterolemia Low back pain Lumbago SOB (shortness of breath) Shortness of breath Pure hypercholesterolemia- Primary Diabetes mellitus type 2, uncontrolled, without complications Type II or unspecified type diabetes mellitus without mention of complication, uncontrolled DDD (degenerative disc disease), lumbar Degeneration of lumbar or lumbosacral intervertebral disc Diabetes mellitus type 2, uncontrolled- Primary Type II or unspecified type diabetes mellitus without mention of complication, uncontrolled Essential hypertension, benign SOB (shortness of breath) Shortness of breath Pure hypercholesterolemia Diabetes mellitus type 2, uncontrolled- Primary Type II or unspecified type diabetes mellitus without mention of complication, uncontrolled Neuropathy Mononeuritis of unspecified site Essential hypertension, benign Diabetic polyneuropathy associated with type 2 diabetes mellitus (HCC) Rash of unknown cause Uncontrolled type 2 diabetes mellitus with complication, with long-term current use of insulin- Primary Other diabetic neurological complication associated with type 2 diabetes mellitus (HCC) Osteoarthritis of spine, unspecified spinal osteoarthritis complication status, unspecified spinal region Uncontrolled type 2 diabetes mellitus with complication, with long-term current use of insulin- Primary Pure hypercholesterolemia Essential hypertension, benign Other fatigue Other diabetic neurological complication associated with type 2 diabetes mellitus (HCC)- Primary Uncontrolled type 2 diabetes mellitus without complication, without long-term current use of insulin Uncontrolled type 2 diabetes mellitus with complication, with long-term current use of insulin Palpitations Shortness of breath Other fatigue Essential hypertension, benign Iron deficiency anemia, unspecified iron deficiency anemia type- Primary TIA (transient ischemic attack) Unspecified transient cerebral ischemia Basilar artery stenosis Occlusion and stenosis of basilar artery without mention of cerebral infarction Stage 5 chronic kidney disease (HCC)- Primary Anemia associated with stage 4 chronic renal failure (HCC) (HCC) [facility] Diagnosis Essential hypertension, benign- Primary DM neuro manif type II, uncontrolled Type II or unspecified type diabetes mellitus with neurological manifestations, uncontrolled Pure hypercholesterolemia Low back pain Lumbago SOB (shortness of breath) Shortness of breath Pure hypercholesterolemia- Primary Diabetes mellitus type 2, uncontrolled, without complications Type II or unspecified type diabetes mellitus without mention of complication, uncontrolled DDD (degenerative disc disease), lumbar Degeneration of lumbar or lumbosacral intervertebral disc Diabetes mellitus type 2, uncontrolled- Primary Type II or unspecified type diabetes mellitus without mention of complication, uncontrolled Essential hypertension, benign SOB (shortness of breath) Shortness of breath Pure hypercholesterolemia Diabetes mellitus type 2, uncontrolled- Primary Type II or unspecified type diabetes mellitus without mention of complication, uncontrolled Neuropathy Mononeuritis of unspecified site Essential hypertension, benign Diabetic polyneuropathy associated with type 2 diabetes mellitus (HCC) Rash of unknown cause Uncontrolled type 2 diabetes mellitus with complication, with long-term current use of insulin- Primary Other diabetic neurological complication associated with type 2 diabetes mellitus (HCC) Osteoarthritis of spine, unspecified spinal osteoarthritis complication status, unspecified spinal region Uncontrolled type 2 diabetes mellitus with complication, with long-term current use of insulin- Primary Pure hypercholesterolemia Essential hypertension, benign Other fatigue Other diabetic neurological complication associated with type 2 diabetes mellitus (HCC)- Primary Uncontrolled type 2 diabetes mellitus without complication, without long-term current use of insulin Uncontrolled type 2 diabetes mellitus with complication, with long-term current use of insulin Palpitations Shortness of breath Other fatigue Essential hypertension, benign Iron deficiency anemia, unspecified iron deficiency anemia type- Primary TIA (transient ischemic attack) Unspecified transient cerebral ischemia Basilar artery stenosis Occlusion and stenosis of basilar artery without mention of cerebral infarction Type 2 diabetes mellitus 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, with long-term current use of insulin (HCC)- Primary Persistent proteinuria Proteinuria Primary hypertension Unspecified essential hypertension Benign prostatic hyperplasia without lower urinary tract symptoms Metabolic acidosis Acidosis Anemia of renal disease Anemia in chronic kidney disease Decreased appetite Anorexia [facility] Diagnosis Essential hypertension, benign- Primary DM neuro manif type II, uncontrolled Type II or unspecified type diabetes mellitus with neurological manifestations, uncontrolled Pure hypercholesterolemia Low back pain Lumbago SOB (shortness of breath) Shortness of breath Pure hypercholesterolemia- Primary Diabetes mellitus type 2, uncontrolled, without complications Type II or unspecified type diabetes mellitus without mention of complication, uncontrolled DDD (degenerative disc disease), lumbar Degeneration of lumbar or lumbosacral intervertebral disc Diabetes mellitus type 2, uncontrolled- Primary Type II or unspecified type diabetes mellitus without mention of complication, uncontrolled Essential hypertension, benign SOB (shortness of breath) Shortness of breath Pure hypercholesterolemia Diabetes mellitus type 2, uncontrolled- Primary Type II or unspecified type diabetes mellitus without mention of complication, uncontrolled Neuropathy Mononeuritis of unspecified site Essential hypertension, benign Diabetic polyneuropathy associated with type 2 diabetes mellitus (HCC) Rash of unknown cause Uncontrolled type 2 diabetes mellitus with complication, with long-term current use of insulin- Primary Other diabetic neurological complication associated with type 2 diabetes mellitus (HCC) Osteoarthritis of spine, unspecified spinal osteoarthritis complication status, unspecified spinal region Uncontrolled type 2 diabetes mellitus with complication, with long-term current use of insulin- Primary Pure hypercholesterolemia Essential hypertension, benign Other fatigue Other diabetic neurological complication associated with type 2 diabetes mellitus (HCC)- Primary Uncontrolled type 2 diabetes mellitus without complication, without long-term current use of insulin Uncontrolled type 2 diabetes mellitus with complication, with long-term current use of insulin Palpitations Shortness of breath Other fatigue Essential hypertension, benign Iron deficiency anemia, unspecified iron deficiency anemia type- Primary TIA (transient ischemic attack) Unspecified transient cerebral ischemia Basilar artery stenosis Occlusion and stenosis of basilar artery without mention of cerebral infarction Constipation, unspecified constipation type [facility] Diagnosis Essential hypertension, benign- Primary DM neuro manif type II, uncontrolled Type II or unspecified type diabetes mellitus with neurological manifestations, uncontrolled Pure hypercholesterolemia Low back pain Lumbago SOB (shortness of breath) Shortness of breath Pure hypercholesterolemia- Primary Diabetes mellitus type 2, uncontrolled, without complications Type II or unspecified type diabetes mellitus without mention of complication, uncontrolled DDD (degenerative disc disease), lumbar Degeneration of lumbar or lumbosacral intervertebral disc Diabetes mellitus type 2, uncontrolled- Primary Type II or unspecified type diabetes mellitus without mention of complication, uncontrolled Essential hypertension, benign SOB (shortness of breath) Shortness of breath Pure hypercholesterolemia Diabetes mellitus type 2, uncontrolled- Primary Type II or unspecified type diabetes mellitus without mention of complication, uncontrolled Neuropathy Mononeuritis of unspecified site Essential hypertension, benign Diabetic polyneuropathy associated with type 2 diabetes mellitus (HCC) Rash of unknown cause Uncontrolled type 2 diabetes mellitus with complication, with long-term current use of insulin- Primary Other diabetic neurological complication associated with type 2 diabetes mellitus (HCC) Osteoarthritis of spine, unspecified spinal osteoarthritis complication status, unspecified spinal region Uncontrolled type 2 diabetes mellitus with complication, with long-term current use of insulin- Primary Pure hypercholesterolemia Essential hypertension, benign Other fatigue Other diabetic neurological complication associated with type 2 diabetes mellitus (HCC)- Primary Uncontrolled type 2 diabetes mellitus without complication, without long-term current use of insulin Uncontrolled type 2 diabetes mellitus with complication, with long-term current use of insulin Palpitations Shortness of breath Other fatigue Essential hypertension, benign Iron deficiency anemia, unspecified iron deficiency anemia type- Primary TIA (transient ischemic attack) Unspecified transient cerebral ischemia Basilar artery stenosis Occlusion and stenosis of basilar artery without mention of cerebral infarction Type 2 diabetes mellitus 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, with long-term current use of insulin (HCC)- Primary documented in this encounter [facility] note* Diagnosis Essential hypertension, benign- Primary DM neuro manif type II, uncontrolled Type II or unspecified type diabetes mellitus with neurological manifestations, uncontrolled Pure hypercholesterolemia Low back pain Lumbago SOB (shortness of breath) Shortness of breath Pure hypercholesterolemia- Primary Diabetes mellitus type 2, uncontrolled, without complications Type II or unspecified type diabetes mellitus without mention of complication, uncontrolled DDD (degenerative disc disease), lumbar Degeneration of lumbar or lumbosacral intervertebral disc Diabetes mellitus type 2, uncontrolled- Primary Type II or unspecified type diabetes mellitus without mention of complication, uncontrolled Essential hypertension, benign SOB (shortness of breath) Shortness of breath Pure hypercholesterolemia Diabetes mellitus type 2, uncontrolled- Primary Type II or unspecified type diabetes mellitus without mention of complication, uncontrolled Neuropathy Mononeuritis of unspecified site Essential hypertension, benign Diabetic polyneuropathy associated with type 2 diabetes mellitus (HCC) Rash of unknown cause Uncontrolled type 2 diabetes mellitus with complication, with long-term current use of insulin- Primary Other diabetic neurological complication associated with type 2 diabetes mellitus (HCC) Osteoarthritis of spine, unspecified spinal osteoarthritis complication status, unspecified spinal region Uncontrolled type 2 diabetes mellitus with complication, with long-term current use of insulin- Primary Pure hypercholesterolemia Essential hypertension, benign Other fatigue Other diabetic neurological complication associated with type 2 diabetes mellitus (HCC)- Primary Uncontrolled type 2 diabetes mellitus without complication, without long-term current use of insulin Uncontrolled type 2 diabetes mellitus with complication, with long-term current use of insulin Palpitations Shortness of breath Other fatigue Essential hypertension, benign Iron deficiency anemia, unspecified iron deficiency anemia type- Primary TIA (transient ischemic attack) Unspecified transient cerebral ischemia Basilar artery stenosis Occlusion and stenosis of basilar artery without mention of cerebral infarction Type 2 diabetes mellitus 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, with long-term current use of insulin (HCC)- Primary [facility]* Diagnosis Essential hypertension, benign- Primary DM neuro manif type II, uncontrolled Type II or unspecified type diabetes mellitus with neurological manifestations, uncontrolled Pure hypercholesterolemia Low back pain Lumbago SOB (shortness of breath) Shortness of breath Pure hypercholesterolemia- Primary Diabetes mellitus type 2, uncontrolled, without complications Type II or unspecified type diabetes mellitus without mention of complication, uncontrolled DDD (degenerative disc disease), lumbar Degeneration of lumbar or lumbosacral intervertebral disc Diabetes mellitus type 2, uncontrolled- Primary Type II or unspecified type diabetes mellitus without mention of complication, uncontrolled Essential hypertension, benign SOB (shortness of breath) Shortness of breath Pure hypercholesterolemia Diabetes mellitus type 2, uncontrolled- Primary Type II or unspecified type diabetes mellitus without mention of complication, uncontrolled Neuropathy Mononeuritis of unspecified site Essential hypertension, benign Diabetic polyneuropathy associated with type 2 diabetes mellitus (HCC) Rash of unknown cause Uncontrolled type 2 diabetes mellitus with complication, with long-term current use of insulin- Primary Other diabetic neurological complication associated with type 2 diabetes mellitus (HCC) Osteoarthritis of spine, unspecified spinal osteoarthritis complication status, unspecified spinal region Uncontrolled type 2 diabetes mellitus with complication, with long-term current use of insulin- Primary Pure hypercholesterolemia Essential hypertension, benign Other fatigue Other diabetic neurological complication associated with type 2 diabetes mellitus (HCC)- Primary Uncontrolled type 2 diabetes mellitus without complication, without long-term current use of insulin Uncontrolled type 2 diabetes mellitus with complication, with long-term current use of insulin Palpitations Shortness of breath Other fatigue Essential hypertension, benign Iron deficiency anemia, unspecified iron deficiency anemia type- Primary TIA (transient ischemic attack) Unspecified transient cerebral ischemia Basilar artery stenosis Occlusion and stenosis of basilar artery without mention of cerebral infarction Type 2 diabetes mellitus 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, with long-term current use of insulin (HCC)- [facility] Diagnosis Essential hypertension, benign- Primary DM neuro manif type II, uncontrolled Type II or unspecified type diabetes mellitus with neurological manifestations, uncontrolled Pure hypercholesterolemia Low back pain Lumbago SOB (shortness of breath) Shortness of breath Pure hypercholesterolemia- Primary Diabetes mellitus type 2, uncontrolled, without complications Type II or unspecified type diabetes mellitus without mention of complication, uncontrolled DDD (degenerative disc disease), lumbar Degeneration of lumbar or lumbosacral intervertebral disc Diabetes mellitus type 2, uncontrolled- Primary Type II or unspecified type diabetes mellitus without mention of complication, uncontrolled Essential hypertension, benign SOB (shortness of breath) Shortness of breath Pure hypercholesterolemia Diabetes mellitus type 2, uncontrolled- Primary Type II or unspecified type diabetes mellitus without mention of complication, uncontrolled Neuropathy Mononeuritis of unspecified site Essential hypertension, benign Diabetic polyneuropathy associated with type 2 diabetes mellitus (HCC) Rash of unknown cause Uncontrolled type 2 diabetes mellitus with complication, with long-term current use of insulin- Primary Other diabetic neurological complication associated with type 2 diabetes mellitus (HCC) Osteoarthritis of spine, unspecified spinal osteoarthritis complication status, unspecified spinal region Uncontrolled type 2 diabetes mellitus with complication, with long-term current use of insulin- Primary Pure hypercholesterolemia Essential hypertension, benign Other fatigue Other diabetic neurological complication associated with type 2 diabetes mellitus (HCC)- Primary Uncontrolled type 2 diabetes mellitus without complication, without long-term current use of insulin Uncontrolled type 2 diabetes mellitus with complication, with long-term current use of insulin Palpitations Shortness of breath Other fatigue Essential hypertension, benign Iron deficiency anemia, unspecified iron deficiency anemia type- Primary TIA (transient ischemic attack) Unspecified transient cerebral ischemia Basilar artery stenosis Occlusion and stenosis of basilar artery without mention of cerebral infarction Diarrhea, unspecified type [facility] Diagnosis Essential hypertension, benign- Primary DM neuro manif type II, uncontrolled Type II or unspecified type diabetes mellitus with neurological manifestations, uncontrolled Pure hypercholesterolemia Low back pain Lumbago SOB (shortness of breath) Shortness of breath Pure hypercholesterolemia- Primary Diabetes mellitus type 2, uncontrolled, without complications Type II or unspecified type diabetes mellitus without mention of complication, uncontrolled DDD (degenerative disc disease), lumbar Degeneration of lumbar or lumbosacral intervertebral disc Diabetes mellitus type 2, uncontrolled- Primary Type II or unspecified type diabetes mellitus without mention of complication, uncontrolled Essential hypertension, benign SOB (shortness of breath) Shortness of breath Pure hypercholesterolemia Diabetes mellitus type 2, uncontrolled- Primary Type II or unspecified type diabetes mellitus without mention of complication, uncontrolled Neuropathy Mononeuritis of unspecified site Essential hypertension, benign Diabetic polyneuropathy associated with type 2 diabetes mellitus (HCC) Rash of unknown cause Uncontrolled type 2 diabetes mellitus with complication, with long-term current use of insulin- Primary Other diabetic neurological complication associated with type 2 diabetes mellitus (HCC) Osteoarthritis of spine, unspecified spinal osteoarthritis complication status, unspecified spinal region Uncontrolled type 2 diabetes mellitus with complication, with long-term current use of insulin- Primary Pure hypercholesterolemia Essential hypertension, benign Other fatigue Other diabetic neurological complication associated with type 2 diabetes mellitus (HCC)- Primary Uncontrolled type 2 diabetes mellitus without complication, without long-term current use of insulin Uncontrolled type 2 diabetes mellitus with complication, with long-term current use of insulin Palpitations Shortness of breath Other fatigue Essential hypertension, benign Iron deficiency anemia, unspecified iron deficiency anemia type- Primary TIA (transient ischemic attack) Unspecified transient cerebral ischemia Basilar artery stenosis Occlusion and stenosis of basilar artery without mention of cerebral infarction Anemia associated with stage 5 chronic renal failure (HCC)- Primary [facility] Diagnosis Essential hypertension, benign- Primary DM neuro manif type II, uncontrolled Type II or unspecified type diabetes mellitus with neurological manifestations, uncontrolled Pure hypercholesterolemia Low back pain Lumbago SOB (shortness of breath) Shortness of breath Pure hypercholesterolemia- Primary Diabetes mellitus type 2, uncontrolled, without complications Type II or unspecified type diabetes mellitus without mention of complication, uncontrolled DDD (degenerative disc disease), lumbar Degeneration of lumbar or lumbosacral intervertebral disc Diabetes mellitus type 2, uncontrolled- Primary Type II or unspecified type diabetes mellitus without mention of complication, uncontrolled Essential hypertension, benign SOB (shortness of breath) Shortness of breath Pure hypercholesterolemia Diabetes mellitus type 2, uncontrolled- Primary Type II or unspecified type diabetes mellitus without mention of complication, uncontrolled Neuropathy Mononeuritis of unspecified site Essential hypertension, benign Diabetic polyneuropathy associated with type 2 diabetes mellitus (HCC) Rash of unknown cause Uncontrolled type 2 diabetes mellitus with complication, with long-term current use of insulin- Primary Other diabetic neurological complication associated with type 2 diabetes mellitus (HCC) Osteoarthritis of spine, unspecified spinal osteoarthritis complication status, unspecified spinal region Uncontrolled type 2 diabetes mellitus with complication, with long-term current use of insulin- Primary Pure hypercholesterolemia Essential hypertension, benign Other fatigue Other diabetic neurological complication associated with type 2 diabetes mellitus (HCC)- Primary Uncontrolled type 2 diabetes mellitus without complication, without long-term current use of insulin Uncontrolled type 2 diabetes mellitus with complication, with long-term current use of insulin Palpitations Shortness of breath Other fatigue Essential hypertension, benign Iron deficiency anemia, unspecified iron deficiency anemia type- Primary TIA (transient ischemic attack) Unspecified transient cerebral ischemia Basilar artery stenosis Occlusion and stenosis of basilar artery without mention of cerebral infarction Diarrhea, unspecified type [facility] Diagnosis Essential hypertension, benign- Primary DM neuro manif type II, uncontrolled Type II or unspecified type diabetes mellitus with neurological manifestations, uncontrolled Pure hypercholesterolemia Low back pain Lumbago SOB (shortness of breath) Shortness of breath Pure hypercholesterolemia- Primary Diabetes mellitus type 2, uncontrolled, without complications Type II or unspecified type diabetes mellitus without mention of complication, uncontrolled DDD (degenerative disc disease), lumbar Degeneration of lumbar or lumbosacral intervertebral disc Diabetes mellitus type 2, uncontrolled- Primary Type II or unspecified type diabetes mellitus without mention of complication, uncontrolled Essential hypertension, benign SOB (shortness of breath) Shortness of breath Pure hypercholesterolemia Diabetes mellitus type 2, uncontrolled- Primary Type II or unspecified type diabetes mellitus without mention of complication, uncontrolled Neuropathy Mononeuritis of unspecified site Essential hypertension, benign Diabetic polyneuropathy associated with type 2 diabetes mellitus (HCC) Rash of unknown cause Uncontrolled type 2 diabetes mellitus with complication, with long-term current use of insulin- Primary Other diabetic neurological complication associated with type 2 diabetes mellitus (HCC) Osteoarthritis of spine, unspecified spinal osteoarthritis complication status, unspecified spinal region Uncontrolled type 2 diabetes mellitus with complication, with long-term current use of insulin- Primary Pure hypercholesterolemia Essential hypertension, benign Other fatigue Other diabetic neurological complication associated with type 2 diabetes mellitus (HCC)- Primary Uncontrolled type 2 diabetes mellitus without complication, without long-term current use of insulin Uncontrolled type 2 diabetes mellitus with complication, with long-term current use of insulin Palpitations Shortness of breath Other fatigue Essential hypertension, benign Iron deficiency anemia, unspecified iron deficiency anemia type- Primary TIA (transient ischemic attack) Unspecified transient cerebral ischemia Basilar artery stenosis Occlusion and stenosis of basilar artery without mention of cerebral infarction Diarrhea, unspecified type [facility] Diagnosis Essential hypertension, benign- Primary DM neuro manif type II, uncontrolled Type II or unspecified type diabetes mellitus with neurological manifestations, uncontrolled Pure hypercholesterolemia Low back pain Lumbago SOB (shortness of breath) Shortness of breath Pure hypercholesterolemia- Primary Diabetes mellitus type 2, uncontrolled, without complications Type II or unspecified type diabetes mellitus without mention of complication, uncontrolled DDD (degenerative disc disease), lumbar Degeneration of lumbar or lumbosacral intervertebral disc Diabetes mellitus type 2, uncontrolled- Primary Type II or unspecified type diabetes mellitus without mention of complication, uncontrolled Essential hypertension, benign SOB (shortness of breath) Shortness of breath Pure hypercholesterolemia Diabetes mellitus type 2, uncontrolled- Primary Type II or unspecified type diabetes mellitus without mention of complication, uncontrolled Neuropathy Mononeuritis of unspecified site Essential hypertension, benign Diabetic polyneuropathy associated with type 2 diabetes mellitus (HCC) Rash of unknown cause Uncontrolled type 2 diabetes mellitus with complication, with long-term current use of insulin- Primary Other diabetic neurological complication associated with type 2 diabetes mellitus (HCC) Osteoarthritis of spine, unspecified spinal osteoarthritis complication status, unspecified spinal region Uncontrolled type 2 diabetes mellitus with complication, with long-term current use of insulin- Primary Pure hypercholesterolemia Essential hypertension, benign Other fatigue Other diabetic neurological complication associated with type 2 diabetes mellitus (HCC)- Primary Uncontrolled type 2 diabetes mellitus without complication, without long-term current use of insulin Uncontrolled type 2 diabetes mellitus with complication, with long-term current use of insulin Palpitations Shortness of breath Other fatigue Essential hypertension, benign Iron deficiency anemia, unspecified iron deficiency anemia type- Primary TIA (transient ischemic attack) Unspecified transient cerebral ischemia Basilar artery stenosis Occlusion and stenosis of basilar artery without mention of cerebral infarction Iron malabsorption (HCC)- Primary Other specified intestinal malabsorption Anemia associated with stage 5 chronic renal failure (HCC) [facility]* Diagnosis Essential hypertension, benign- Primary DM neuro manif type II, uncontrolled Type II or unspecified type diabetes mellitus with neurological manifestations, uncontrolled Pure hypercholesterolemia Low back pain Lumbago SOB (shortness of breath) Shortness of breath Pure hypercholesterolemia- Primary Diabetes mellitus type 2, uncontrolled, without complications Type II or unspecified type diabetes mellitus without mention of complication, uncontrolled DDD (degenerative disc disease), lumbar Degeneration of lumbar or lumbosacral intervertebral disc Diabetes mellitus type 2, uncontrolled- Primary Type II or unspecified type diabetes mellitus without mention of complication, uncontrolled Essential hypertension, benign SOB (shortness of breath) Shortness of breath Pure hypercholesterolemia Diabetes mellitus type 2, uncontrolled- Primary Type II or unspecified type diabetes mellitus without mention of complication, uncontrolled Neuropathy Mononeuritis of unspecified site Essential hypertension, benign Diabetic polyneuropathy associated with type 2 diabetes mellitus (HCC) Rash of unknown cause Uncontrolled type 2 diabetes mellitus with complication, with long-term current use of insulin- Primary Other diabetic neurological complication associated with type 2 diabetes mellitus (HCC) Osteoarthritis of spine, unspecified spinal osteoarthritis complication status, unspecified spinal region Uncontrolled type 2 diabetes mellitus with complication, with long-term current use of insulin- Primary Pure hypercholesterolemia Essential hypertension, benign Other fatigue Other diabetic neurological complication associated with type 2 diabetes mellitus (HCC)- Primary Uncontrolled type 2 diabetes mellitus without complication, without long-term current use of insulin Uncontrolled type 2 diabetes mellitus with complication, with long-term current use of insulin Palpitations Shortness of breath Other fatigue Essential hypertension, benign Iron deficiency anemia, unspecified iron deficiency anemia type- Primary TIA (transient ischemic attack) Unspecified transient cerebral ischemia Basilar artery stenosis Occlusion and stenosis of basilar artery without mention of cerebral infarction Iron malabsorption (HCC)- Primary Other specified intestinal malabsorption Anemia associated with stage 5 chronic renal failure (HCC) documented in this encounter [facility] note* Diagnosis Essential hypertension, benign- Primary DM neuro manif type II, uncontrolled Type II or unspecified type diabetes mellitus with neurological manifestations, uncontrolled Pure hypercholesterolemia Low back pain Lumbago SOB (shortness of breath) Shortness of breath Pure hypercholesterolemia- Primary Diabetes mellitus type 2, uncontrolled, without complications Type II or unspecified type diabetes mellitus without mention of complication, uncontrolled DDD (degenerative disc disease), lumbar Degeneration of lumbar or lumbosacral intervertebral disc Diabetes mellitus type 2, uncontrolled- Primary Type II or unspecified type diabetes mellitus without mention of complication, uncontrolled Essential hypertension, benign SOB (shortness of breath) Shortness of breath Pure hypercholesterolemia Diabetes mellitus type 2, uncontrolled- Primary Type II or unspecified type diabetes mellitus without mention of complication, uncontrolled Neuropathy Mononeuritis of unspecified site Essential hypertension, benign Diabetic polyneuropathy associated with type 2 diabetes mellitus (HCC) Rash of unknown cause Uncontrolled type 2 diabetes mellitus with complication, with long-term current use of insulin- Primary Other diabetic neurological complication associated with type 2 diabetes mellitus (HCC) Osteoarthritis of spine, unspecified spinal osteoarthritis complication status, unspecified spinal region Uncontrolled type 2 diabetes mellitus with complication, with long-term current use of insulin- Primary Pure hypercholesterolemia Essential hypertension, benign Other fatigue Other diabetic neurological complication associated with type 2 diabetes mellitus (HCC)- Primary Uncontrolled type 2 diabetes mellitus without complication, without long-term current use of insulin Uncontrolled type 2 diabetes mellitus with complication, with long-term current use of insulin Palpitations Shortness of breath Other fatigue Essential hypertension, benign Iron deficiency anemia, unspecified iron deficiency anemia type- Primary TIA (transient ischemic attack) Unspecified transient cerebral ischemia Basilar artery stenosis Occlusion and stenosis of basilar artery without mention of cerebral infarction Insomnia, unspecified type [facility] Essential hypertension, benign- Primary DM neuro manif type II, uncontrolled Type II or unspecified type diabetes mellitus with neurological manifestations, uncontrolled Pure hypercholesterolemia Low back pain Lumbago SOB (shortness of breath) Shortness of breath Pure hypercholesterolemia- Primary Diabetes mellitus type 2, uncontrolled, without complications Type II or unspecified type diabetes mellitus without mention of complication, uncontrolled DDD (degenerative disc disease), lumbar Degeneration of lumbar or lumbosacral intervertebral disc Diabetes mellitus type 2, uncontrolled- Primary Type II or unspecified type diabetes mellitus without mention of complication, uncontrolled Essential hypertension, benign SOB (shortness of breath) Shortness of breath Pure hypercholesterolemia Diabetes mellitus type 2, uncontrolled- Primary Type II or unspecified type diabetes mellitus without mention of complication, uncontrolled Neuropathy Mononeuritis of unspecified site Essential hypertension, benign Diabetic polyneuropathy associated with type 2 diabetes mellitus (HCC) Rash of unknown cause Uncontrolled type 2 diabetes mellitus with complication, with long-term current use of insulin- Primary Other diabetic neurological complication associated with type 2 diabetes mellitus (HCC) Osteoarthritis of spine, unspecified spinal osteoarthritis complication status, unspecified spinal region Uncontrolled type 2 diabetes mellitus with complication, with long-term current use of insulin- Primary Pure hypercholesterolemia Essential hypertension, benign Other fatigue Other diabetic neurological complication associated with type 2 diabetes mellitus (HCC)- Primary Uncontrolled type 2 diabetes mellitus without complication, without long-term current use of insulin Uncontrolled type 2 diabetes mellitus with complication, with long-term current use of insulin Palpitations Shortness of breath Other fatigue Essential hypertension, benign Iron deficiency anemia, unspecified iron deficiency anemia type- Primary TIA (transient ischemic attack) Unspecified transient cerebral ischemia Basilar artery stenosis Occlusion and stenosis of basilar artery without mention of cerebral infarction Iron malabsorption (HCC)- Primary Other specified intestinal malabsorption [facility] Diagnosis Essential hypertension, benign- Primary DM neuro manif type II, uncontrolled Type II or unspecified type diabetes mellitus with neurological manifestations, uncontrolled Pure hypercholesterolemia Low back pain Lumbago SOB (shortness of breath) Shortness of breath Pure hypercholesterolemia- Primary Diabetes mellitus type 2, uncontrolled, without complications Type II or unspecified type diabetes mellitus without mention of complication, uncontrolled DDD (degenerative disc disease), lumbar Degeneration of lumbar or lumbosacral intervertebral disc Diabetes mellitus type 2, uncontrolled- Primary Type II or unspecified type diabetes mellitus without mention of complication, uncontrolled Essential hypertension, benign SOB (shortness of breath) Shortness of breath Pure hypercholesterolemia Diabetes mellitus type 2, uncontrolled- Primary Type II or unspecified type diabetes mellitus without mention of complication, uncontrolled Neuropathy Mononeuritis of unspecified site Essential hypertension, benign Diabetic polyneuropathy associated with type 2 diabetes mellitus (HCC) Rash of unknown cause Uncontrolled type 2 diabetes mellitus with complication, with long-term current use of insulin- Primary Other diabetic neurological complication associated with type 2 diabetes mellitus (HCC) Osteoarthritis of spine, unspecified spinal osteoarthritis complication status, unspecified spinal region Uncontrolled type 2 diabetes mellitus with complication, with long-term current use of insulin- Primary Pure hypercholesterolemia Essential hypertension, benign Other fatigue Other diabetic neurological complication associated with type 2 diabetes mellitus (HCC)- Primary Uncontrolled type 2 diabetes mellitus without complication, without long-term current use of insulin Uncontrolled type 2 diabetes mellitus with complication, with long-term current use of insulin Palpitations Shortness of breath Other fatigue Essential hypertension, benign Iron deficiency anemia, unspecified iron deficiency anemia type- Primary TIA (transient ischemic attack) Unspecified transient cerebral ischemia Basilar artery stenosis Occlusion and stenosis of basilar artery without mention of cerebral infarction Iron malabsorption (HCC)- Primary Other specified intestinal malabsorption Anemia associated with stage 5 chronic renal failure (HCC) [facility]* Diagnosis Essential hypertension, benign- Primary DM neuro manif type II, uncontrolled Type II or unspecified type diabetes mellitus with neurological manifestations, uncontrolled Pure hypercholesterolemia Low back pain Lumbago SOB (shortness of breath) Shortness of breath Pure hypercholesterolemia- Primary Diabetes mellitus type 2, uncontrolled, without complications Type II or unspecified type diabetes mellitus without mention of complication, uncontrolled DDD (degenerative disc disease), lumbar Degeneration of lumbar or lumbosacral intervertebral disc Diabetes mellitus type 2, uncontrolled- Primary Type II or unspecified type diabetes mellitus without mention of complication, uncontrolled Essential hypertension, benign SOB (shortness of breath) Shortness of breath Pure hypercholesterolemia Diabetes mellitus type 2, uncontrolled- Primary Type II or unspecified type diabetes mellitus without mention of complication, uncontrolled Neuropathy Mononeuritis of unspecified site Essential hypertension, benign Diabetic polyneuropathy associated with type 2 diabetes mellitus (HCC) Rash of unknown cause Uncontrolled type 2 diabetes mellitus with complication, with long-term current use of insulin- Primary Other diabetic neurological complication associated with type 2 diabetes mellitus (HCC) Osteoarthritis of spine, unspecified spinal osteoarthritis complication status, unspecified spinal region Uncontrolled type 2 diabetes mellitus with complication, with long-term current use of insulin- Primary Pure hypercholesterolemia Essential hypertension, benign Other fatigue Other diabetic neurological complication associated with type 2 diabetes mellitus (HCC)- Primary Uncontrolled type 2 diabetes mellitus without complication, without long-term current use of insulin Uncontrolled type 2 diabetes mellitus with complication, with long-term current use of insulin Palpitations Shortness of breath Other fatigue Essential hypertension, benign Iron deficiency anemia, unspecified iron deficiency anemia type- Primary TIA (transient ischemic attack) Unspecified transient cerebral ischemia Basilar artery stenosis Occlusion and stenosis of basilar artery without mention of cerebral infarction Iron malabsorption (HCC)- Primary Other specified intestinal malabsorption Anemia associated with stage 5 chronic renal failure (HCC) [facility] noteNo assessment information availableWTrumb[facility] Work Phone: Evaluation note* Diagnosis Essential hypertension, benign- Primary DM neuro manif type II, uncontrolled Type II or unspecified type diabetes mellitus with neurological manifestations, uncontrolled Pure hypercholesterolemia Low back pain Lumbago SOB (shortness of breath) Shortness of breath Pure hypercholesterolemia- Primary Diabetes mellitus type 2, uncontrolled, without complications Type II or unspecified type diabetes mellitus without mention of complication, uncontrolled DDD (degenerative disc disease), lumbar Degeneration of lumbar or lumbosacral intervertebral disc Diabetes mellitus type 2, uncontrolled- Primary Type II or unspecified type diabetes mellitus without mention of complication, uncontrolled Essential hypertension, benign SOB (shortness of breath) Shortness of breath Pure hypercholesterolemia Diabetes mellitus type 2, uncontrolled- Primary Type II or unspecified type diabetes mellitus without mention of complication, uncontrolled Neuropathy Mononeuritis of unspecified site Essential hypertension, benign Diabetic polyneuropathy associated with type 2 diabetes mellitus (HCC) Rash of unknown cause Uncontrolled type 2 diabetes mellitus with complication, with long-term current use of insulin- Primary Other diabetic neurological complication associated with type 2 diabetes mellitus (HCC) Osteoarthritis of spine, unspecified spinal osteoarthritis complication status, unspecified spinal region Uncontrolled type 2 diabetes mellitus with complication, with long-term current use of insulin- Primary Pure hypercholesterolemia Essential hypertension, benign Other fatigue Other diabetic neurological complication associated with type 2 diabetes mellitus (HCC)- Primary Uncontrolled type 2 diabetes mellitus without complication, without long-term current use of insulin Uncontrolled type 2 diabetes mellitus with complication, with long-term current use of insulin Palpitations Shortness of breath Other fatigue Essential hypertension, benign Iron deficiency anemia, unspecified iron deficiency anemia type- Primary TIA (transient ischemic attack) Unspecified transient cerebral ischemia Basilar artery stenosis Occlusion and stenosis of basilar artery without mention of cerebral infarction Anemia associated with stage 5 chronic renal failure (HCC)- Primary Type 2 diabetes mellitus 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, with long-term current use of insulin (HCC)- Primary Persistent proteinuria Proteinuria Primary hypertension Unspecified essential hypertension Benign prostatic hyperplasia without lower urinary tract symptoms Metabolic acidosis Acidosis Iron malabsorption (HCC) Other specified intestinal malabsorption Anemia associated with stage 5 chronic renal failure (HCC) Secondary renal hyperparathyroidism (HCC) Secondary hyperparathyroidism (of renal origin) Hyperlipidemia, unspecified hyperlipidemia type Hypervitaminosis D [facility] Diagnosis Essential hypertension, benign- Primary DM neuro manif type II, uncontrolled Type II or unspecified type diabetes mellitus with neurological manifestations, uncontrolled Pure hypercholesterolemia Low back pain Lumbago SOB (shortness of breath) Shortness of breath Pure hypercholesterolemia- Primary Diabetes mellitus type 2, uncontrolled, without complications Type II or unspecified type diabetes mellitus without mention of complication, uncontrolled DDD (degenerative disc disease), lumbar Degeneration of lumbar or lumbosacral intervertebral disc Diabetes mellitus type 2, uncontrolled- Primary Type II or unspecified type diabetes mellitus without mention of complication, uncontrolled Essential hypertension, benign SOB (shortness of breath) Shortness of breath Pure hypercholesterolemia Diabetes mellitus type 2, uncontrolled- Primary Type II or unspecified type diabetes mellitus without mention of complication, uncontrolled Neuropathy Mononeuritis of unspecified site Essential hypertension, benign Diabetic polyneuropathy associated with type 2 diabetes mellitus (HCC) Rash of unknown cause Uncontrolled type 2 diabetes mellitus with complication, with long-term current use of insulin- Primary Other diabetic neurological complication associated with type 2 diabetes mellitus ([facility]) Osteoarthritis of spine, unspecified spinal osteoarthritis complication status, unspecified spinal region Uncontrolled type 2 diabetes mellitus with complication, with long-term current use of insulin- Primary Pure hypercholesterolemia Essential hypertension, benign Other fatigue Other diabetic neurological complication associated with type 2 diabetes mellitus (HCC)- Primary Uncontrolled type 2 diabetes mellitus without complication, without long-term current use of insulin Uncontrolled type 2 diabetes mellitus with complication, with long-term current use of insulin Palpitations Shortness of breath Other fatigue Essential hypertension, benign Iron deficiency anemia, unspecified iron deficiency anemia type- Primary TIA (transient ischemic attack) Unspecified transient cerebral ischemia Basilar artery stenosis Occlusion and stenosis of basilar artery without mention of cerebral infarction Incontinence of feces, unspecified fecal incontinence type- Primary Diarrhea, unspecified type Urinary incontinence, unspecified type Hemiplegia and hemiparesis 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 side ([facility]) Type 2 diabetes mellitus with stage 3b chronic kidney disease, with long-term current use of insulin ([facility]) Pressure injury of buttock, stage 1, unspecified laterality Chronic kidney disease, stage 5 (HCC) Anemia in chronic kidney disease, unspecified CKD stage Type 2 diabetes mellitus 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, with long-term current use of insulin ([facility])- Primary Persistent proteinuria Proteinuria Primary hypertension Unspecified essential hypertension Benign prostatic hyperplasia without lower urinary tract symptoms Metabolic acidosis Acidosis Iron malabsorption (HCC) Other specified intestinal malabsorption Anemia associated with stage 5 chronic renal failure (HCC) Secondary renal hyperparathyroidism (HCC) Secondary hyperparathyroidism (of renal origin) Hyperlipidemia, unspecified hyperlipidemia type Hypervitaminosis D [facility] Diagnosis Essential hypertension, benign- Primary DM neuro manif type II, uncontrolled Type II or unspecified type diabetes mellitus with neurological manifestations, uncontrolled Pure hypercholesterolemia Low back pain Lumbago SOB (shortness of breath) Shortness of breath Pure hypercholesterolemia- Primary Diabetes mellitus type 2, uncontrolled, without complications Type II or unspecified type diabetes mellitus without mention of complication, uncontrolled DDD (degenerative disc disease), lumbar Degeneration of lumbar or lumbosacral intervertebral disc Diabetes mellitus type 2, uncontrolled- Primary Type II or unspecified type diabetes mellitus without mention of complication, uncontrolled Essential hypertension, benign SOB (shortness of breath) Shortness of breath Pure hypercholesterolemia Diabetes mellitus type 2, uncontrolled- Primary Type II or unspecified type diabetes mellitus without mention of complication, uncontrolled Neuropathy Mononeuritis of unspecified site Essential hypertension, benign Diabetic polyneuropathy associated with type 2 diabetes mellitus (HCC) Rash of unknown cause Uncontrolled type 2 diabetes mellitus with complication, with long-term current use of insulin- Primary Other diabetic neurological complication associated with type 2 diabetes mellitus (HCC) Osteoarthritis of spine, unspecified spinal osteoarthritis complication status, unspecified spinal region Uncontrolled type 2 diabetes mellitus with complication, with long-term current use of insulin- Primary Pure hypercholesterolemia Essential hypertension, benign Other fatigue Other diabetic neurological complication associated with type 2 diabetes mellitus (HCC)- Primary Uncontrolled type 2 diabetes mellitus without complication, without long-term current use of insulin Uncontrolled type 2 diabetes mellitus with complication, with long-term current use of insulin Palpitations Shortness of breath Other fatigue Essential hypertension, benign Iron deficiency anemia, unspecified iron deficiency anemia type- Primary TIA (transient ischemic attack) Unspecified transient cerebral ischemia Basilar artery stenosis Occlusion and stenosis of basilar artery without mention of cerebral infarction 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)- Primary Right thalamic infarction (HCC) Anemia associated with stage 5 chronic renal failure (HCC) Urinary incontinence as sequela of cerebrovascular accident (CVA) Fecal soiling due to fecal incontinence Wound of left buttock, sequela Type 2 diabetes mellitus 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, with long-term current use of insulin (HCC)- Primary Persistent proteinuria Proteinuria Primary hypertension Unspecified essential hypertension Benign prostatic hyperplasia without lower urinary tract symptoms Metabolic acidosis Acidosis Iron malabsorption (HCC) Other specified intestinal malabsorption Anemia associated with stage 5 chronic renal failure (HCC) Secondary renal hyperparathyroidism (HCC) Secondary hyperparathyroidism (of renal origin) Hyperlipidemia, unspecified hyperlipidemia type Hypervitaminosis D [facility]* Diagnosis Essential hypertension, benign- Primary DM neuro manif type II, uncontrolled Type II or unspecified type diabetes mellitus with neurological manifestations, uncontrolled Pure hypercholesterolemia Low back pain Lumbago SOB (shortness of breath) Shortness of breath Pure hypercholesterolemia- Primary Diabetes mellitus type 2, uncontrolled, without complications Type II or unspecified type diabetes mellitus without mention of complication, uncontrolled DDD (degenerative disc disease), lumbar Degeneration of lumbar or lumbosacral intervertebral disc Diabetes mellitus type 2, uncontrolled- Primary Type II or unspecified type diabetes mellitus without mention of complication, uncontrolled Essential hypertension, benign SOB (shortness of breath) Shortness of breath Pure hypercholesterolemia Diabetes mellitus type 2, uncontrolled- Primary Type II or unspecified type diabetes mellitus without mention of complication, uncontrolled Neuropathy Mononeuritis of unspecified site Essential hypertension, benign Diabetic polyneuropathy associated with type 2 diabetes mellitus (HCC) Rash of unknown cause Uncontrolled type 2 diabetes mellitus with complication, with long-term current use of insulin- Primary Other diabetic neurological complication associated with type 2 diabetes mellitus (HCC) Osteoarthritis of spine, unspecified spinal osteoarthritis complication status, unspecified spinal region Uncontrolled type 2 diabetes mellitus with complication, with long-term current use of insulin- Primary Pure hypercholesterolemia Essential hypertension, benign Other fatigue Other diabetic neurological complication associated with type 2 diabetes mellitus (HCC)- Primary Uncontrolled type 2 diabetes mellitus without complication, without long-term current use of insulin Uncontrolled type 2 diabetes mellitus with complication, with long-term current use of insulin Palpitations Shortness of breath Other fatigue Essential hypertension, benign Iron deficiency anemia, unspecified iron deficiency anemia type- Primary TIA (transient ischemic attack) Unspecified transient cerebral ischemia Basilar artery stenosis Occlusion and stenosis of basilar artery without mention of cerebral infarction Type 2 diabetes mellitus 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, with long-term current use of insulin (HCC)- Primary Persistent proteinuria Proteinuria Primary hypertension Unspecified essential hypertension Benign prostatic hyperplasia without lower urinary tract symptoms Metabolic acidosis Acidosis Iron malabsorption (HCC) Other specified intestinal malabsorption Anemia associated with stage 5 chronic renal failure (HCC) Secondary renal hyperparathyroidism (HCC) Secondary hyperparathyroidism (of renal origin) Hyperlipidemia, unspecified hyperlipidemia type Hypervitaminosis D documented in this encounter [facility] note* Diagnosis Essential hypertension, benign- Primary DM neuro manif type II, uncontrolled Type II or unspecified type diabetes mellitus with neurological manifestations, uncontrolled Pure hypercholesterolemia Low back pain Lumbago SOB (shortness of breath) Shortness of breath Pure hypercholesterolemia- Primary Diabetes mellitus type 2, uncontrolled, without complications Type II or unspecified type diabetes mellitus without mention of complication, uncontrolled DDD (degenerative disc disease), lumbar Degeneration of lumbar or lumbosacral intervertebral disc Diabetes mellitus type 2, uncontrolled- Primary Type II or unspecified type diabetes mellitus without mention of complication, uncontrolled Essential hypertension, benign SOB (shortness of breath) Shortness of breath Pure hypercholesterolemia Diabetes mellitus type 2, uncontrolled- Primary Type II or unspecified type diabetes mellitus without mention of complication, uncontrolled Neuropathy Mononeuritis of unspecified site Essential hypertension, benign Diabetic polyneuropathy associated with type 2 diabetes mellitus (HCC) Rash of unknown cause Uncontrolled type 2 diabetes mellitus with complication, with long-term current use of insulin- Primary Other diabetic neurological complication associated with type 2 diabetes mellitus (HCC) Osteoarthritis of spine, unspecified spinal osteoarthritis complication status, unspecified spinal region Uncontrolled type 2 diabetes mellitus with complication, with long-term current use of insulin- Primary Pure hypercholesterolemia Essential hypertension, benign Other fatigue Other diabetic neurological complication associated with type 2 diabetes mellitus (HCC)- Primary Uncontrolled type 2 diabetes mellitus without complication, without long-term current use of insulin Uncontrolled type 2 diabetes mellitus with complication, with long-term current use of insulin Palpitations Shortness of breath Other fatigue Essential hypertension, benign Iron deficiency anemia, unspecified iron deficiency anemia type- Primary TIA (transient ischemic attack) Unspecified transient cerebral ischemia Basilar artery stenosis Occlusion and stenosis of basilar artery without mention of cerebral infarction ESRD (end stage renal disease) (HCC)- Primary End stage renal disease ESRD (end stage renal disease) (HCC) End stage renal disease [facility] Diagnosis Essential hypertension, benign- Primary DM neuro manif type II, uncontrolled Type II or unspecified type diabetes mellitus with neurological manifestations, uncontrolled Pure hypercholesterolemia Low back pain Lumbago SOB (shortness of breath) Shortness of breath Pure hypercholesterolemia- Primary Diabetes mellitus type 2, uncontrolled, without complications Type II or unspecified type diabetes mellitus without mention of complication, uncontrolled DDD (degenerative disc disease), lumbar Degeneration of lumbar or lumbosacral intervertebral disc Diabetes mellitus type 2, uncontrolled- Primary Type II or unspecified type diabetes mellitus without mention of complication, uncontrolled Essential hypertension, benign SOB (shortness of breath) Shortness of breath Pure hypercholesterolemia Diabetes mellitus type 2, uncontrolled- Primary Type II or unspecified type diabetes mellitus without mention of complication, uncontrolled Neuropathy Mononeuritis of unspecified site Essential hypertension, benign Diabetic polyneuropathy associated with type 2 diabetes mellitus (HCC) Rash of unknown cause Uncontrolled type 2 diabetes mellitus with complication, with long-term current use of insulin- Primary Other diabetic neurological complication associated with type 2 diabetes mellitus (HCC) Osteoarthritis of spine, unspecified spinal osteoarthritis complication status, unspecified spinal region Uncontrolled type 2 diabetes mellitus with complication, with long-term current use of insulin- Primary Pure hypercholesterolemia Essential hypertension, benign Other fatigue Other diabetic neurological complication associated with type 2 diabetes mellitus (HCC)- Primary Uncontrolled type 2 diabetes mellitus without complication, without long-term current use of insulin Uncontrolled type 2 diabetes mellitus with complication, with long-term current use of insulin Palpitations Shortness of breath Other fatigue Essential hypertension, benign Iron deficiency anemia, unspecified iron deficiency anemia type- Primary TIA (transient ischemic attack) Unspecified transient cerebral ischemia Basilar artery stenosis Occlusion and stenosis of basilar artery without mention of cerebral infarction Anemia associated with stage 5 chronic renal failure (HCC)- Primary ESRD (end stage renal disease) (HCC) [facility] Essential hypertension, benign- Primary DM neuro manif type II, uncontrolled Type II or unspecified type diabetes mellitus with neurological manifestations, uncontrolled Pure hypercholesterolemia Low back pain Lumbago SOB (shortness of breath) Shortness of breath Pure hypercholesterolemia- Primary Diabetes mellitus type 2, uncontrolled, without complications Type II or unspecified type diabetes mellitus without mention of complication, uncontrolled DDD (degenerative disc disease), lumbar Degeneration of lumbar or lumbosacral intervertebral disc Diabetes mellitus type 2, uncontrolled- Primary Type II or unspecified type diabetes mellitus without mention of complication, uncontrolled Essential hypertension, benign SOB (shortness of breath) Shortness of breath Pure hypercholesterolemia Diabetes mellitus type 2, uncontrolled- Primary Type II or unspecified type diabetes mellitus without mention of complication, uncontrolled Neuropathy Mononeuritis of unspecified site Essential hypertension, benign Diabetic polyneuropathy associated with type 2 diabetes mellitus (HCC) Rash of unknown cause Uncontrolled type 2 diabetes mellitus with complication, with long-term current use of insulin- Primary Other diabetic neurological complication associated with type 2 diabetes mellitus (HCC) Osteoarthritis of spine, unspecified spinal osteoarthritis complication status, unspecified spinal region Uncontrolled type 2 diabetes mellitus with complication, with long-term current use of insulin- Primary Pure hypercholesterolemia Essential hypertension, benign Other fatigue Other diabetic neurological complication associated with type 2 diabetes mellitus (HCC)- Primary Uncontrolled type 2 diabetes mellitus without complication, without long-term current use of insulin Uncontrolled type 2 diabetes mellitus with complication, with long-term current use of insulin Palpitations Shortness of breath Other fatigue Essential hypertension, benign Iron deficiency anemia, unspecified iron deficiency anemia type- Primary TIA (transient ischemic attack) Unspecified transient cerebral ischemia Basilar artery stenosis Occlusion and stenosis of basilar artery without mention of cerebral infarction Anemia associated with stage 5 chronic renal failure (HCC)- Primary documented in this encounter [facility] note* Diagnosis Essential hypertension, benign- Primary DM neuro manif type II, uncontrolled Type II or unspecified type diabetes mellitus with neurological manifestations, uncontrolled Pure hypercholesterolemia Low back pain Lumbago SOB (shortness of breath) Shortness of breath Pure hypercholesterolemia- Primary Diabetes mellitus type 2, uncontrolled, without complications Type II or unspecified type diabetes mellitus without mention of complication, uncontrolled DDD (degenerative disc disease), lumbar Degeneration of lumbar or lumbosacral intervertebral disc Diabetes mellitus type 2, uncontrolled- Primary Type II or unspecified type diabetes mellitus without mention of complication, uncontrolled Essential hypertension, benign SOB (shortness of breath) Shortness of breath Pure hypercholesterolemia Diabetes mellitus type 2, uncontrolled- Primary Type II or unspecified type diabetes mellitus without mention of complication, uncontrolled Neuropathy Mononeuritis of unspecified site Essential hypertension, benign Diabetic polyneuropathy associated with type 2 diabetes mellitus (HCC) Rash of unknown cause Uncontrolled type 2 diabetes mellitus with complication, with long-term current use of insulin- Primary Other diabetic neurological complication associated with type 2 diabetes mellitus (HCC) Osteoarthritis of spine, unspecified spinal osteoarthritis complication status, unspecified spinal region Uncontrolled type 2 diabetes mellitus with complication, with long-term current use of insulin- Primary Pure hypercholesterolemia Essential hypertension, benign Other fatigue Other diabetic neurological complication associated with type 2 diabetes mellitus (HCC)- Primary Uncontrolled type 2 diabetes mellitus without complication, without long-term current use of insulin Uncontrolled type 2 diabetes mellitus with complication, with long-term current use of insulin Palpitations Shortness of breath Other fatigue Essential hypertension, benign Iron deficiency anemia, unspecified iron deficiency anemia type- Primary TIA (transient ischemic attack) Unspecified transient cerebral ischemia Basilar artery stenosis Occlusion and stenosis of basilar artery without mention of cerebral infarction Anemia associated with stage 5 chronic renal failure (HCC)- Primary ESRD (end stage renal disease) (HCC) End stage renal disease [facility] Diagnosis Essential hypertension, benign- Primary DM neuro manif type II, uncontrolled Type II or unspecified type diabetes mellitus with neurological manifestations, uncontrolled Pure hypercholesterolemia Low back pain Lumbago SOB (shortness of breath) Shortness of breath Pure hypercholesterolemia- Primary Diabetes mellitus type 2, uncontrolled, without complications Type II or unspecified type diabetes mellitus without mention of complication, uncontrolled DDD (degenerative disc disease), lumbar Degeneration of lumbar or lumbosacral intervertebral disc Diabetes mellitus type 2, uncontrolled- Primary Type II or unspecified type diabetes mellitus without mention of complication, uncontrolled Essential hypertension, benign SOB (shortness of breath) Shortness of breath Pure hypercholesterolemia Diabetes mellitus type 2, uncontrolled- Primary Type II or unspecified type diabetes mellitus without mention of complication, uncontrolled Neuropathy Mononeuritis of unspecified site Essential hypertension, benign Diabetic polyneuropathy associated with type 2 diabetes mellitus (HCC) Rash of unknown cause Uncontrolled type 2 diabetes mellitus with complication, with long-term current use of insulin- Primary Other diabetic neurological complication associated with type 2 diabetes mellitus (HCC) Osteoarthritis of spine, unspecified spinal osteoarthritis complication status, unspecified spinal region Uncontrolled type 2 diabetes mellitus with complication, with long-term current use of insulin- Primary Pure hypercholesterolemia Essential hypertension, benign Other fatigue Other diabetic neurological complication associated with type 2 diabetes mellitus (HCC)- Primary Uncontrolled type 2 diabetes mellitus without complication, without long-term current use of insulin Uncontrolled type 2 diabetes mellitus with complication, with long-term current use of insulin Palpitations Shortness of breath Other fatigue Essential hypertension, benign Iron deficiency anemia, unspecified iron deficiency anemia type- Primary TIA (transient ischemic attack) Unspecified transient cerebral ischemia Basilar artery stenosis Occlusion and stenosis of basilar artery without mention of cerebral infarction Stage 5 chronic kidney disease (HCC)- Primary Anemia associated with stage 4 chronic renal failure (HCC) Iron malabsorption (HCC) Other specified intestinal malabsorption ESRD (end stage renal disease) (HCC) End stage renal disease [facility] Diagnosis Essential hypertension, benign- Primary DM neuro manif type II, uncontrolled Type II or unspecified type diabetes mellitus with neurological manifestations, uncontrolled Pure hypercholesterolemia Low back pain Lumbago SOB (shortness of breath) Shortness of breath Pure hypercholesterolemia- Primary Diabetes mellitus type 2, uncontrolled, without complications Type II or unspecified type diabetes mellitus without mention of complication, uncontrolled DDD (degenerative disc disease), lumbar Degeneration of lumbar or lumbosacral intervertebral disc Diabetes mellitus type 2, uncontrolled- Primary Type II or unspecified type diabetes mellitus without mention of complication, uncontrolled Essential hypertension, benign SOB (shortness of breath) Shortness of breath Pure hypercholesterolemia Diabetes mellitus type 2, uncontrolled- Primary Type II or unspecified type diabetes mellitus without mention of complication, uncontrolled Neuropathy Mononeuritis of unspecified site Essential hypertension, benign Diabetic polyneuropathy associated with type 2 diabetes mellitus (HCC) Rash of unknown cause Uncontrolled type 2 diabetes mellitus with complication, with long-term current use of insulin- Primary Other diabetic neurological complication associated with type 2 diabetes mellitus ([facility]) Osteoarthritis of spine, unspecified spinal osteoarthritis complication status, unspecified spinal region Uncontrolled type 2 diabetes mellitus with complication, with long-term current use of insulin- Primary Pure hypercholesterolemia Essential hypertension, benign Other fatigue Other diabetic neurological complication associated with type 2 diabetes mellitus (HCC)- Primary Uncontrolled type 2 diabetes mellitus without complication, without long-term current use of insulin Uncontrolled type 2 diabetes mellitus with complication, with long-term current use of insulin Palpitations Shortness of breath Other fatigue Essential hypertension, benign Iron deficiency anemia, unspecified iron deficiency anemia type- Primary TIA (transient ischemic attack) Unspecified transient cerebral ischemia Basilar artery stenosis Occlusion and stenosis of basilar artery without mention of cerebral infarction Pre-operative examination- Primary Preoperative examination, unspecified Essential hypertension, benign PSVT (paroxysmal supraventricular tachycardia) ([facility]) Paroxysmal supraventricular tachycardia Pure hypercholesterolemia Right thalamic infarction ([facility]) Diabetic polyneuropathy associated with type 2 diabetes mellitus ([facility]) Functional dyspepsia Dyspepsia and other specified disorders of function of stomach ICD (implantable cardioverter-defibrillator) in place Automatic implantable cardiac defibrillator in situ Anemia associated with stage 5 chronic renal failure ([facility]) Coronary artery disease involving [place] coronary artery of [place] heart without angina pectoris TIA (transient ischemic attack) Unspecified transient cerebral ischemia Physical deconditioning Debility, unspecified Schatzki's ring Congenital tracheoesophageal fistula, esophageal atresia and stenosis Hiatal hernia Diaphragmatic hernia without mention of obstruction or gangrene Incontinence of feces, unspecified fecal incontinence type History of embolism ESRD (end stage renal disease) ([facility]) End stage renal disease Pacemaker reprogramming/check Fitting and adjustment of cardiac pacemaker ESRD (end stage renal disease) ([facility]) End stage renal disease * Assessment & Plan Note - Va Marinelli APRN.CNP - 01/27/2025 10:46 AM EDT Associated Problem(s): ESRD (end stage renal disease) ([facility]) Assessment: Creatinine Date Value Ref Range Status 12/04/2024 4.56 (H) 0.73 - 1.22 mg/dL Final 11/20/2024 4.16 (H) 0.73 - 1.22 mg/dL Final 10/21/2024 4.71 (H) 0.73 - 1.22 mg/dL Final 09/24/2024 4.39 (H) 0.73 - 1.22 mg/dL Final * Assessment & Plan Note - Va Marinelli APRN.CNP - 01/27/2025 10:33 AM EDT Associated Problem(s): History of embolism Assessment: hx, provoked, tx'd with AC * Assessment & Plan Note - Va Marinelli APRN.CNP - 01/27/2025 10:30 AM EDT Associated Problem(s): Incontinence, feces Assessment: wears depends * Assessment & Plan Note - Va Marinelli APRN.CNP - 01/27/2025 10:26 AM EDT Associated Problem(s): Hiatal hernia Assessment: medium, per last EGD * Assessment & Plan Note - Va Marinelli APRN.CNP - 01/27/2025 10:26 AM EDT Associated Problem(s): Schatzki's ring Assessment: mild, s/p dilation * Assessment & Plan Note - Va Marinelli APRN.CNP - 01/27/2025 10:25 AM EDT Associated Problem(s): Physical deconditioning Assessment: ambulates with cane/walker, left hemiplegia * Assessment & Plan Note - Va Marinelli APRN.CNP - 01/27/2025 10:25 AM EDT Associated Problem(s): TIA (transient ischemic attack) Assessment: hx * Assessment & Plan Note - Va Marinelli APRN.CNP - 01/27/2025 10:22 AM EDT Associated Problem(s): Coronary artery disease involving [place] coronary artery of [place] heart without angina pectoris Assessment: non-obstructing, following cardiology, denies CP, palpitations, sob, new or worsening cardiac symptoms * Assessment & Plan Note - Va Marinelli APRN.CNP - 01/27/2025 10:18 AM EDT Associated Problem(s): Anemia associated with stage 5 chronic renal failure (HCC) Assessment: receiving PAULA therapy, as needed, following hematology Visit ([facility]) Office on 01/21/2025 Hemoglobin (g/dL) Date Value 01/21/2025 10.6 04/26/2021 9.4 Hematocrit (%) Date Value 01/21/2025 33.0 04/26/2021 28.6 WBC (k/uL) Date Value 01/21/2025 5.63 04/26/2021 8.25 * Assessment & Plan Note - Va Marinelli APRN.CNP - 01/27/2025 10:16 AM EDT Associated Problem(s): ICD (implantable cardioverter-defibrillator) in place Assessment: 09/08 SSS/Jamie, implanted 02/2019, pt has not had an interrogation since 2021. Number given to schedule previously and again during OV. Informed pt this is needed to proceed with upcoming surgery, pt verbalized understanding. * Assessment & Plan Note - Va Marinelli APRN.CNP - 01/27/2025 10:10 AM EDT Associated Problem(s): Functional dyspepsia Assessment: controlled on rx * Assessment & Plan Note - Va Marinelli APRN.CNP - 01/27/2025 10:10 AM EDT Associated Problem(s): Diabetic polyneuropathy associated with type 2 diabetes mellitus (HCC) Assessment: IDDM Hemoglobin A1C (%) Date Value 09/24/2024 5.3 04/26/2021 6.7 Hemoglobin A1C (POCT) (%) Date Value 02/27/2023 5.8 * Assessment & Plan Note - Va Marinelli APRN.CNP - 01/27/2025 10:09 AM EDT Associated Problem(s): Right thalamic infarction (HCC) Assessment: with left sided weakness, uses cane/walker to ambulate, daily Plavix and ASA. Pre-op instructions received. * Assessment & Plan Note - Va Marinelli APRN.CNP - 01/27/2025 10:08 AM EDT Associated Problem(s): Pure hypercholesterolemia Assessment: c/w statin * Assessment & Plan Note - Va Marinelli APRN.CNP - 01/27/2025 10:07 AM EDT Associated Problem(s): PSVT (paroxysmal supraventricular tachycardia) ([facility]) Assessment: controlled on rx, following cardiology, last OV below: External Document(s) - Consultation - Cardiology (06/12/2024) * Assessment & Plan Note - Va Marinelli APRN.CNP - 01/27/2025 10:06 AM EDT Associated Problem(s): Essential hypertension, benign Assessment: controlled on rx Last 14 BP Last 14 Encounter BP Readings: Date: BP: 01/23/2025 156/62 01/21/2025 147/82 01/10/2025 134/61 01/02/2025 125/63 12/31/2024 137/70 12/31/2024 123/63 12/24/2024 159/69 12/20/2024 158/64 2024 136/64 12/16/2024 153/63 12/13/2024 151/67 12/11/2024 120/62 10/28/2024 157/74 10/09/2024 124/64 [facility] Diagnosis Essential hypertension, benign- Primary DM neuro manif type II, uncontrolled Type II or unspecified type diabetes mellitus with neurological manifestations, uncontrolled Pure hypercholesterolemia Low back pain Lumbago SOB (shortness of breath) Shortness of breath Pure hypercholesterolemia- Primary Diabetes mellitus type 2, uncontrolled, without complications Type II or unspecified type diabetes mellitus without mention of complication, uncontrolled DDD (degenerative disc disease), lumbar Degeneration of lumbar or lumbosacral intervertebral disc Diabetes mellitus type 2, uncontrolled- Primary Type II or unspecified type diabetes mellitus without mention of complication, uncontrolled Essential hypertension, benign SOB (shortness of breath) Shortness of breath Pure hypercholesterolemia Diabetes mellitus type 2, uncontrolled- Primary Type II or unspecified type diabetes mellitus without mention of complication, uncontrolled Neuropathy Mononeuritis of unspecified site Essential hypertension, benign Diabetic polyneuropathy associated with type 2 diabetes mellitus (HCC) Rash of unknown cause Uncontrolled type 2 diabetes mellitus with complication, with long-term current use of insulin- Primary Other diabetic neurological complication associated with type 2 diabetes mellitus (HCC) Osteoarthritis of spine, unspecified spinal osteoarthritis complication status, unspecified spinal region Uncontrolled type 2 diabetes mellitus with complication, with long-term current use of insulin- Primary Pure hypercholesterolemia Essential hypertension, benign Other fatigue Other diabetic neurological complication associated with type 2 diabetes mellitus (HCC)- Primary Uncontrolled type 2 diabetes mellitus without complication, without long-term current use of insulin Uncontrolled type 2 diabetes mellitus with complication, with long-term current use of insulin Palpitations Shortness of breath Other fatigue Essential hypertension, benign Iron deficiency anemia, unspecified iron deficiency anemia type- Primary TIA (transient ischemic attack) Unspecified transient cerebral ischemia Basilar artery stenosis Occlusion and stenosis of basilar artery without mention of cerebral infarction Pre-operative examination- Primary Preoperative examination, unspecified Essential hypertension, benign PSVT (paroxysmal supraventricular tachycardia) (HCC) Paroxysmal supraventricular tachycardia Pure hypercholesterolemia Right thalamic infarction (HCC) Diabetic polyneuropathy associated with type 2 diabetes mellitus (HCC) Functional dyspepsia Dyspepsia and other specified disorders of function of stomach ICD (implantable cardioverter-defibrillator) in place Automatic implantable cardiac defibrillator in situ Anemia associated with stage 5 chronic renal failure (HCC) Coronary artery disease involving [place] coronary artery of [place] heart without angina pectoris TIA (transient ischemic attack) Unspecified transient cerebral ischemia Physical deconditioning Debility, unspecified Schatzki's ring Congenital tracheoesophageal fistula, esophageal atresia and stenosis Hiatal hernia Diaphragmatic hernia without mention of obstruction or gangrene Incontinence of feces, unspecified fecal incontinence type History of embolism ESRD (end stage renal disease) (HCC) End stage renal disease Pacemaker reprogramming/check Fitting and adjustment of cardiac pacemaker [facility] Diagnosis Essential hypertension, benign- Primary DM neuro manif type II, uncontrolled Type II or unspecified type diabetes mellitus with neurological manifestations, uncontrolled Pure hypercholesterolemia Low back pain Lumbago SOB (shortness of breath) Shortness of breath Pure hypercholesterolemia- Primary Diabetes mellitus type 2, uncontrolled, without complications Type II or unspecified type diabetes mellitus without mention of complication, uncontrolled DDD (degenerative disc disease), lumbar Degeneration of lumbar or lumbosacral intervertebral disc Diabetes mellitus type 2, uncontrolled- Primary Type II or unspecified type diabetes mellitus without mention of complication, uncontrolled Essential hypertension, benign SOB (shortness of breath) Shortness of breath Pure hypercholesterolemia Diabetes mellitus type 2, uncontrolled- Primary Type II or unspecified type diabetes mellitus without mention of complication, uncontrolled Neuropathy Mononeuritis of unspecified site Essential hypertension, benign Diabetic polyneuropathy associated with type 2 diabetes mellitus (HCC) Rash of unknown cause Uncontrolled type 2 diabetes mellitus with complication, with long-term current use of insulin- Primary Other diabetic neurological complication associated with type 2 diabetes mellitus ([facility]) Osteoarthritis of spine, unspecified spinal osteoarthritis complication status, unspecified spinal region Uncontrolled type 2 diabetes mellitus with complication, with long-term current use of insulin- Primary Pure hypercholesterolemia Essential hypertension, benign Other fatigue Other diabetic neurological complication associated with type 2 diabetes mellitus (HCC)- Primary Uncontrolled type 2 diabetes mellitus without complication, without long-term current use of insulin Uncontrolled type 2 diabetes mellitus with complication, with long-term current use of insulin Palpitations Shortness of breath Other fatigue Essential hypertension, benign Iron deficiency anemia, unspecified iron deficiency anemia type- Primary TIA (transient ischemic attack) Unspecified transient cerebral ischemia Basilar artery stenosis Occlusion and stenosis of basilar artery without mention of cerebral infarction Pre-operative examination- Primary Preoperative examination, unspecified Essential hypertension, benign PSVT (paroxysmal supraventricular tachycardia) ([facility]) Paroxysmal supraventricular tachycardia Pure hypercholesterolemia Right thalamic infarction ([facility]) Diabetic polyneuropathy associated with type 2 diabetes mellitus ([facility]) Functional dyspepsia Dyspepsia and other specified disorders of function of stomach ICD (implantable cardioverter-defibrillator) in place Automatic implantable cardiac defibrillator in situ Anemia associated with stage 5 chronic renal failure ([facility]) Coronary artery disease involving [place] coronary artery of [place] heart without angina pectoris TIA (transient ischemic attack) Unspecified transient cerebral ischemia Physical deconditioning Debility, unspecified Schatzki's ring Congenital tracheoesophageal fistula, esophageal atresia and stenosis Hiatal hernia Diaphragmatic hernia without mention of obstruction or gangrene Incontinence of feces, unspecified fecal incontinence type History of embolism ESRD (end stage renal disease) (HCC) End stage renal disease Anemia associated with stage 5 chronic renal failure (HCC)- Primary [facility] Diagnosis Essential hypertension, benign- Primary DM neuro manif type II, uncontrolled Type II or unspecified type diabetes mellitus with neurological manifestations, uncontrolled Pure hypercholesterolemia Low back pain Lumbago SOB (shortness of breath) Shortness of breath Pure hypercholesterolemia- Primary Diabetes mellitus type 2, uncontrolled, without complications Type II or unspecified type diabetes mellitus without mention of complication, uncontrolled DDD (degenerative disc disease), lumbar Degeneration of lumbar or lumbosacral intervertebral disc Diabetes mellitus type 2, uncontrolled- Primary Type II or unspecified type diabetes mellitus without mention of complication, uncontrolled Essential hypertension, benign SOB (shortness of breath) Shortness of breath Pure hypercholesterolemia Diabetes mellitus type 2, uncontrolled- Primary Type II or unspecified type diabetes mellitus without mention of complication, uncontrolled Neuropathy Mononeuritis of unspecified site Essential hypertension, benign Diabetic polyneuropathy associated with type 2 diabetes mellitus (HCC) Rash of unknown cause Uncontrolled type 2 diabetes mellitus with complication, with long-term current use of insulin- Primary Other diabetic neurological complication associated with type 2 diabetes mellitus (HCC) Osteoarthritis of spine, unspecified spinal osteoarthritis complication status, unspecified spinal region Uncontrolled type 2 diabetes mellitus with complication, with long-term current use of insulin- Primary Pure hypercholesterolemia Essential hypertension, benign Other fatigue Other diabetic neurological complication associated with type 2 diabetes mellitus (HCC)- Primary Uncontrolled type 2 diabetes mellitus without complication, without long-term current use of insulin Uncontrolled type 2 diabetes mellitus with complication, with long-term current use of insulin Palpitations Shortness of breath Other fatigue Essential hypertension, benign Iron deficiency anemia, unspecified iron deficiency anemia type- Primary TIA (transient ischemic attack) Unspecified transient cerebral ischemia Basilar artery stenosis Occlusion and stenosis of basilar artery without mention of cerebral infarction Chronic kidney disease, stage 5 (HCC) Hypertensive heart and chronic kidney disease without heart failure, with stage 5 chronic kidney disease, or end stage renal disease (HCC) Diabetic nephropathy associated with type 2 diabetes mellitus (HCC) Bilateral carotid artery stenosis Occlusion and stenosis of carotid artery without mention of cerebral infarction Complete heart block (HCC) 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, 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 Mixed hyperlipidemia Pre-operative examination- Primary Preoperative examination, unspecified Essential hypertension, benign PSVT (paroxysmal supraventricular tachycardia) (HCC) Paroxysmal supraventricular tachycardia Pure hypercholesterolemia Right thalamic infarction (HCC) Diabetic polyneuropathy associated with type 2 diabetes mellitus ([facility]) Functional dyspepsia Dyspepsia and other specified disorders of function of stomach ICD (implantable cardioverter-defibrillator) in place Automatic implantable cardiac defibrillator in situ Anemia associated with stage 5 chronic renal failure ([facility]) Coronary artery disease involving [place] coronary artery of [place] heart without angina pectoris TIA (transient ischemic attack) Unspecified transient cerebral ischemia Physical deconditioning Debility, unspecified Schatzki's ring Congenital tracheoesophageal fistula, esophageal atresia and stenosis Hiatal hernia Diaphragmatic hernia without mention of obstruction or gangrene Incontinence of feces, unspecified fecal incontinence type History of embolism ESRD (end stage renal disease) ([facility]) [facility] Diagnosis Essential hypertension, benign- Primary DM neuro manif type II, uncontrolled Type II or unspecified type diabetes mellitus with neurological manifestations, uncontrolled Pure hypercholesterolemia Low back pain Lumbago SOB (shortness of breath) Shortness of breath Pure hypercholesterolemia- Primary Diabetes mellitus type 2, uncontrolled, without complications Type II or unspecified type diabetes mellitus without mention of complication, uncontrolled DDD (degenerative disc disease), lumbar Degeneration of lumbar or lumbosacral intervertebral disc Diabetes mellitus type 2, uncontrolled- Primary Type II or unspecified type diabetes mellitus without mention of complication, uncontrolled Essential hypertension, benign SOB (shortness of breath) Shortness of breath Pure hypercholesterolemia Diabetes mellitus type 2, uncontrolled- Primary Type II or unspecified type diabetes mellitus without mention of complication, uncontrolled Neuropathy Mononeuritis of unspecified site Essential hypertension, benign Diabetic polyneuropathy associated with type 2 diabetes mellitus (HCC) Rash of unknown cause Uncontrolled type 2 diabetes mellitus with complication, with long-term current use of insulin- Primary Other diabetic neurological complication associated with type 2 diabetes mellitus (HCC) Osteoarthritis of spine, unspecified spinal osteoarthritis complication status, unspecified spinal region Uncontrolled type 2 diabetes mellitus with complication, with long-term current use of insulin- Primary Pure hypercholesterolemia Essential hypertension, benign Other fatigue Other diabetic neurological complication associated with type 2 diabetes mellitus (HCC)- Primary Uncontrolled type 2 diabetes mellitus without complication, without long-term current use of insulin Uncontrolled type 2 diabetes mellitus with complication, with long-term current use of insulin Palpitations Shortness of breath Other fatigue Essential hypertension, benign Iron deficiency anemia, unspecified iron deficiency anemia type- Primary TIA (transient ischemic attack) Unspecified transient cerebral ischemia Basilar artery stenosis Occlusion and stenosis of basilar artery without mention of cerebral infarction Pre-operative examination- Primary Preoperative examination, unspecified Essential hypertension, benign PSVT (paroxysmal supraventricular tachycardia) ([facility]) Paroxysmal supraventricular tachycardia Pure hypercholesterolemia Right thalamic infarction (HCC) Diabetic polyneuropathy associated with type 2 diabetes mellitus ([facility]) Functional dyspepsia Dyspepsia and other specified disorders of function of stomach ICD (implantable cardioverter-defibrillator) in place Automatic implantable cardiac defibrillator in situ Anemia associated with stage 5 chronic renal failure ([facility]) Coronary artery disease involving [place] coronary artery of [place] heart without angina pectoris TIA (transient ischemic attack) Unspecified transient cerebral ischemia Physical deconditioning Debility, unspecified Schatzki's ring Congenital tracheoesophageal fistula, esophageal atresia and stenosis Hiatal hernia Diaphragmatic hernia without mention of obstruction or gangrene Incontinence of feces, unspecified fecal incontinence type History of embolism ESRD (end stage renal disease) ([facility]) End stage renal disease Anemia associated with stage 5 chronic renal failure ([facility])- [facility] Diagnosis Essential hypertension, benign- Primary DM neuro manif type II, uncontrolled Type II or unspecified type diabetes mellitus with neurological manifestations, uncontrolled Pure hypercholesterolemia Low back pain Lumbago SOB (shortness of breath) Shortness of breath Pure hypercholesterolemia- Primary Diabetes mellitus type 2, uncontrolled, without complications Type II or unspecified type diabetes mellitus without mention of complication, uncontrolled DDD (degenerative disc disease), lumbar Degeneration of lumbar or lumbosacral intervertebral disc Diabetes mellitus type 2, uncontrolled- Primary Type II or unspecified type diabetes mellitus without mention of complication, uncontrolled Essential hypertension, benign SOB (shortness of breath) Shortness of breath Pure hypercholesterolemia Diabetes mellitus type 2, uncontrolled- Primary Type II or unspecified type diabetes mellitus without mention of complication, uncontrolled Neuropathy Mononeuritis of unspecified site Essential hypertension, benign Diabetic polyneuropathy associated with type 2 diabetes mellitus (HCC) Rash of unknown cause Uncontrolled type 2 diabetes mellitus with complication, with long-term current use of insulin- Primary Other diabetic neurological complication associated with type 2 diabetes mellitus (HCC) Osteoarthritis of spine, unspecified spinal osteoarthritis complication status, unspecified spinal region Uncontrolled type 2 diabetes mellitus with complication, with long-term current use of insulin- Primary Pure hypercholesterolemia Essential hypertension, benign Other fatigue Other diabetic neurological complication associated with type 2 diabetes mellitus (HCC)- Primary Uncontrolled type 2 diabetes mellitus without complication, without long-term current use of insulin Uncontrolled type 2 diabetes mellitus with complication, with long-term current use of insulin Palpitations Shortness of breath Other fatigue Essential hypertension, benign Iron deficiency anemia, unspecified iron deficiency anemia type- Primary TIA (transient ischemic attack) Unspecified transient cerebral ischemia Basilar artery stenosis Occlusion and stenosis of basilar artery without mention of cerebral infarction Pre-operative examination- Primary Preoperative examination, unspecified Essential hypertension, benign PSVT (paroxysmal supraventricular tachycardia) ([facility]) Paroxysmal supraventricular tachycardia Pure hypercholesterolemia Right thalamic infarction ([facility]) Diabetic polyneuropathy associated with type 2 diabetes mellitus ([facility]) Functional dyspepsia Dyspepsia and other specified disorders of function of stomach ICD (implantable cardioverter-defibrillator) in place Automatic implantable cardiac defibrillator in situ Anemia associated with stage 5 chronic renal failure ([facility]) Coronary artery disease involving [place] coronary artery of [place] heart without angina pectoris TIA (transient ischemic attack) Unspecified transient cerebral ischemia Physical deconditioning Debility, unspecified Schatzki's ring Congenital tracheoesophageal fistula, esophageal atresia and stenosis Hiatal hernia Diaphragmatic hernia without mention of obstruction or gangrene Incontinence of feces, unspecified fecal incontinence type History of embolism ESRD (end stage renal disease) ([facility]) End stage renal disease Anemia associated with stage 5 chronic renal failure ([facility])- Primary [facility] Diagnosis Essential hypertension, benign- Primary DM neuro manif type II, uncontrolled Type II or unspecified type diabetes mellitus with neurological manifestations, uncontrolled Pure hypercholesterolemia Low back pain Lumbago SOB (shortness of breath) Shortness of breath Pure hypercholesterolemia- Primary Diabetes mellitus type 2, uncontrolled, without complications Type II or unspecified type diabetes mellitus without mention of complication, uncontrolled DDD (degenerative disc disease), lumbar Degeneration of lumbar or lumbosacral intervertebral disc Diabetes mellitus type 2, uncontrolled- Primary Type II or unspecified type diabetes mellitus without mention of complication, uncontrolled Essential hypertension, benign SOB (shortness of breath) Shortness of breath Pure hypercholesterolemia Diabetes mellitus type 2, uncontrolled- Primary Type II or unspecified type diabetes mellitus without mention of complication, uncontrolled Neuropathy Mononeuritis of unspecified site Essential hypertension, benign Diabetic polyneuropathy associated with type 2 diabetes mellitus (HCC) Rash of unknown cause Uncontrolled type 2 diabetes mellitus with complication, with long-term current use of insulin- Primary Other diabetic neurological complication associated with type 2 diabetes mellitus (HCC) Osteoarthritis of spine, unspecified spinal osteoarthritis complication status, unspecified spinal region Uncontrolled type 2 diabetes mellitus with complication, with long-term current use of insulin- Primary Pure hypercholesterolemia Essential hypertension, benign Other fatigue Other diabetic neurological complication associated with type 2 diabetes mellitus (HCC)- Primary Uncontrolled type 2 diabetes mellitus without complication, without long-term current use of insulin Uncontrolled type 2 diabetes mellitus with complication, with long-term current use of insulin Palpitations Shortness of breath Other fatigue Essential hypertension, benign Iron deficiency anemia, unspecified iron deficiency anemia type- Primary TIA (transient ischemic attack) Unspecified transient cerebral ischemia Basilar artery stenosis Occlusion and stenosis of basilar artery without mention of cerebral infarction Pre-operative examination- Primary Preoperative examination, unspecified Essential hypertension, benign PSVT (paroxysmal supraventricular tachycardia) ([facility]) Paroxysmal supraventricular tachycardia Pure hypercholesterolemia Right thalamic infarction (HCC) Diabetic polyneuropathy associated with type 2 diabetes mellitus (HCC) Functional dyspepsia Dyspepsia and other specified disorders of function of stomach ICD (implantable cardioverter-defibrillator) in place Automatic implantable cardiac defibrillator in situ Anemia associated with stage 5 chronic renal failure ([facility]) Coronary artery disease involving [place] coronary artery of [place] heart without angina pectoris TIA (transient ischemic attack) Unspecified transient cerebral ischemia Physical deconditioning Debility, unspecified Schatzki's ring Congenital tracheoesophageal fistula, esophageal atresia and stenosis Hiatal hernia Diaphragmatic hernia without mention of obstruction or gangrene Incontinence of feces, unspecified fecal incontinence type History of embolism ESRD (end stage renal disease) (HCC) End stage renal disease Anemia associated with stage 5 chronic renal failure (HCC)- Primary [facility] Diagnosis Essential hypertension, benign- Primary DM neuro manif type II, uncontrolled Type II or unspecified type diabetes mellitus with neurological manifestations, uncontrolled Pure hypercholesterolemia Low back pain Lumbago SOB (shortness of breath) Shortness of breath Pure hypercholesterolemia- Primary Diabetes mellitus type 2, uncontrolled, without complications Type II or unspecified type diabetes mellitus without mention of complication, uncontrolled DDD (degenerative disc disease), lumbar Degeneration of lumbar or lumbosacral intervertebral disc Diabetes mellitus type 2, uncontrolled- Primary Type II or unspecified type diabetes mellitus without mention of complication, uncontrolled Essential hypertension, benign SOB (shortness of breath) Shortness of breath Pure hypercholesterolemia Diabetes mellitus type 2, uncontrolled- Primary Type II or unspecified type diabetes mellitus without mention of complication, uncontrolled Neuropathy Mononeuritis of unspecified site Essential hypertension, benign Diabetic polyneuropathy associated with type 2 diabetes mellitus (HCC) Rash of unknown cause Uncontrolled type 2 diabetes mellitus with complication, with long-term current use of insulin- Primary Other diabetic neurological complication associated with type 2 diabetes mellitus (HCC) Osteoarthritis of spine, unspecified spinal osteoarthritis complication status, unspecified spinal region Uncontrolled type 2 diabetes mellitus with complication, with long-term current use of insulin- Primary Pure hypercholesterolemia Essential hypertension, benign Other fatigue Other diabetic neurological complication associated with type 2 diabetes mellitus (HCC)- Primary Uncontrolled type 2 diabetes mellitus without complication, without long-term current use of insulin Uncontrolled type 2 diabetes mellitus with complication, with long-term current use of insulin Palpitations Shortness of breath Other fatigue Essential hypertension, benign Iron deficiency anemia, unspecified iron deficiency anemia type- Primary TIA (transient ischemic attack) Unspecified transient cerebral ischemia Basilar artery stenosis Occlusion and stenosis of basilar artery without mention of cerebral infarction Pre-operative examination- Primary Preoperative examination, unspecified Essential hypertension, benign PSVT (paroxysmal supraventricular tachycardia) (HCC) Paroxysmal supraventricular tachycardia Pure hypercholesterolemia Right thalamic infarction (HCC) Diabetic polyneuropathy associated with type 2 diabetes mellitus (HCC) Functional dyspepsia Dyspepsia and other specified disorders of function of stomach ICD (implantable cardioverter-defibrillator) in place Automatic implantable cardiac defibrillator in situ Anemia associated with stage 5 chronic renal failure (HCC) Coronary artery disease involving [place] coronary artery of [place] heart without angina pectoris TIA (transient ischemic attack) Unspecified transient cerebral ischemia Physical deconditioning Debility, unspecified Schatzki's ring Congenital tracheoesophageal fistula, esophageal atresia and stenosis Hiatal hernia Diaphragmatic hernia without mention of obstruction or gangrene Incontinence of feces, unspecified fecal incontinence type History of embolism ESRD (end stage renal disease) (HCC) End stage renal disease Anemia associated with stage 5 chronic renal failure (HCC)- Primary Stage 5 chronic kidney disease (HCC) [facility] Diagnosis Essential hypertension, benign- Primary DM neuro manif type II, uncontrolled Type II or unspecified type diabetes mellitus with neurological manifestations, uncontrolled Pure hypercholesterolemia Low back pain Lumbago SOB (shortness of breath) Shortness of breath Pure hypercholesterolemia- Primary Diabetes mellitus type 2, uncontrolled, without complications Type II or unspecified type diabetes mellitus without mention of complication, uncontrolled DDD (degenerative disc disease), lumbar Degeneration of lumbar or lumbosacral intervertebral disc Diabetes mellitus type 2, uncontrolled- Primary Type II or unspecified type diabetes mellitus without mention of complication, uncontrolled Essential hypertension, benign SOB (shortness of breath) Shortness of breath Pure hypercholesterolemia Diabetes mellitus type 2, uncontrolled- Primary Type II or unspecified type diabetes mellitus without mention of complication, uncontrolled Neuropathy Mononeuritis of unspecified site Essential hypertension, benign Diabetic polyneuropathy associated with type 2 diabetes mellitus (HCC) Rash of unknown cause Uncontrolled type 2 diabetes mellitus with complication, with long-term current use of insulin- Primary Other diabetic neurological complication associated with type 2 diabetes mellitus (HCC) Osteoarthritis of spine, unspecified spinal osteoarthritis complication status, unspecified spinal region Uncontrolled type 2 diabetes mellitus with complication, with long-term current use of insulin- Primary Pure hypercholesterolemia Essential hypertension, benign Other fatigue Other diabetic neurological complication associated with type 2 diabetes mellitus (HCC)- Primary Uncontrolled type 2 diabetes mellitus without complication, without long-term current use of insulin Uncontrolled type 2 diabetes mellitus with complication, with long-term current use of insulin Palpitations Shortness of breath Other fatigue Essential hypertension, benign Iron deficiency anemia, unspecified iron deficiency anemia type- Primary TIA (transient ischemic attack) Unspecified transient cerebral ischemia Basilar artery stenosis Occlusion and stenosis of basilar artery without mention of cerebral infarction Pre-operative examination- Primary Preoperative examination, unspecified Essential hypertension, benign PSVT (paroxysmal supraventricular tachycardia) (HCC) Paroxysmal supraventricular tachycardia Pure hypercholesterolemia Right thalamic infarction (HCC) Diabetic polyneuropathy associated with type 2 diabetes mellitus (HCC) Functional dyspepsia Dyspepsia and other specified disorders of function of stomach ICD (implantable cardioverter-defibrillator) in place Automatic implantable cardiac defibrillator in situ Anemia associated with stage 5 chronic renal failure (HCC) Coronary artery disease involving [place] coronary artery of [place] heart without angina pectoris TIA (transient ischemic attack) Unspecified transient cerebral ischemia Physical deconditioning Debility, unspecified Schatzki's ring Congenital tracheoesophageal fistula, esophageal atresia and stenosis Hiatal hernia Diaphragmatic hernia without mention of obstruction or gangrene Incontinence of feces, unspecified fecal incontinence type History of embolism ESRD (end stage renal disease) (HCC) End stage renal disease Chronic kidney disease, stage 4, severely decreased GFR (HCC) Chronic kidney disease, Stage IV (severe) Metabolic acidosis Acidosis Type 2 diabetes mellitus 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, with long-term current use of insulin ([facility]) Pacemaker reprogramming/check Fitting and adjustment of cardiac pacemaker [facility] Diagnosis Essential hypertension, benign- Primary DM neuro manif type II, uncontrolled Type II or unspecified type diabetes mellitus with neurological manifestations, uncontrolled Pure hypercholesterolemia Low back pain Lumbago SOB (shortness of breath) Shortness of breath Pure hypercholesterolemia- Primary Diabetes mellitus type 2, uncontrolled, without complications Type II or unspecified type diabetes mellitus without mention of complication, uncontrolled DDD (degenerative disc disease), lumbar Degeneration of lumbar or lumbosacral intervertebral disc Diabetes mellitus type 2, uncontrolled- Primary Type II or unspecified type diabetes mellitus without mention of complication, uncontrolled Essential hypertension, benign SOB (shortness of breath) Shortness of breath Pure hypercholesterolemia Diabetes mellitus type 2, uncontrolled- Primary Type II or unspecified type diabetes mellitus without mention of complication, uncontrolled Neuropathy Mononeuritis of unspecified site Essential hypertension, benign Diabetic polyneuropathy associated with type 2 diabetes mellitus (HCC) Rash of unknown cause Uncontrolled type 2 diabetes mellitus with complication, with long-term current use of insulin- Primary Other diabetic neurological complication associated with type 2 diabetes mellitus (HCC) Osteoarthritis of spine, unspecified spinal osteoarthritis complication status, unspecified spinal region Uncontrolled type 2 diabetes mellitus with complication, with long-term current use of insulin- Primary Pure hypercholesterolemia Essential hypertension, benign Other fatigue Other diabetic neurological complication associated with type 2 diabetes mellitus (HCC)- Primary Uncontrolled type 2 diabetes mellitus without complication, without long-term current use of insulin Uncontrolled type 2 diabetes mellitus with complication, with long-term current use of insulin Palpitations Shortness of breath Other fatigue Essential hypertension, benign Iron deficiency anemia, unspecified iron deficiency anemia type- Primary TIA (transient ischemic attack) Unspecified transient cerebral ischemia Basilar artery stenosis Occlusion and stenosis of basilar artery without mention of cerebral infarction Pre-operative examination- Primary Preoperative examination, unspecified Essential hypertension, benign PSVT (paroxysmal supraventricular tachycardia) (HCC) Paroxysmal supraventricular tachycardia Pure hypercholesterolemia Right thalamic infarction ([facility]) Diabetic polyneuropathy associated with type 2 diabetes mellitus (HCC) Functional dyspepsia Dyspepsia and other specified disorders of function of stomach ICD (implantable cardioverter-defibrillator) in place Automatic implantable cardiac defibrillator in situ Anemia associated with stage 5 chronic renal failure (HCC) Coronary artery disease involving [place] coronary artery of [place] heart without angina pectoris TIA (transient ischemic attack) Unspecified transient cerebral ischemia Physical deconditioning Debility, unspecified Schatzki's ring Congenital tracheoesophageal fistula, esophageal atresia and stenosis Hiatal hernia Diaphragmatic hernia without mention of obstruction or gangrene Incontinence of feces, unspecified fecal incontinence type History of embolism ESRD (end stage renal disease) (HCC) End stage renal disease Anemia associated with stage 5 chronic renal failure (HCC)- Primary Pacemaker reprogramming/check Fitting and adjustment of cardiac pacemaker [facility] Diagnosis Essential hypertension, benign- Primary DM neuro manif type II, uncontrolled Type II or unspecified type diabetes mellitus with neurological manifestations, uncontrolled Pure hypercholesterolemia Low back pain Lumbago SOB (shortness of breath) Shortness of breath Pure hypercholesterolemia- Primary Diabetes mellitus type 2, uncontrolled, without complications Type II or unspecified type diabetes mellitus without mention of complication, uncontrolled DDD (degenerative disc disease), lumbar Degeneration of lumbar or lumbosacral intervertebral disc Diabetes mellitus type 2, uncontrolled- Primary Type II or unspecified type diabetes mellitus without mention of complication, uncontrolled Essential hypertension, benign SOB (shortness of breath) Shortness of breath Pure hypercholesterolemia Diabetes mellitus type 2, uncontrolled- Primary Type II or unspecified type diabetes mellitus without mention of complication, uncontrolled Neuropathy Mononeuritis of unspecified site Essential hypertension, benign Diabetic polyneuropathy associated with type 2 diabetes mellitus (HCC) Rash of unknown cause Uncontrolled type 2 diabetes mellitus with complication, with long-term current use of insulin- Primary Other diabetic neurological complication associated with type 2 diabetes mellitus (HCC) Osteoarthritis of spine, unspecified spinal osteoarthritis complication status, unspecified spinal region Uncontrolled type 2 diabetes mellitus with complication, with long-term current use of insulin- Primary Pure hypercholesterolemia Essential hypertension, benign Other fatigue Other diabetic neurological complication associated with type 2 diabetes mellitus (HCC)- Primary Uncontrolled type 2 diabetes mellitus without complication, without long-term current use of insulin Uncontrolled type 2 diabetes mellitus with complication, with long-term current use of insulin Palpitations Shortness of breath Other fatigue Essential hypertension, benign Iron deficiency anemia, unspecified iron deficiency anemia type- Primary TIA (transient ischemic attack) Unspecified transient cerebral ischemia Basilar artery stenosis Occlusion and stenosis of basilar artery without mention of cerebral infarction Pre-operative examination- Primary Preoperative examination, unspecified Essential hypertension, benign PSVT (paroxysmal supraventricular tachycardia) ([facility]) Paroxysmal supraventricular tachycardia Pure hypercholesterolemia Right thalamic infarction ([facility]) Diabetic polyneuropathy associated with type 2 diabetes mellitus ([facility]) Functional dyspepsia Dyspepsia and other specified disorders of function of stomach ICD (implantable cardioverter-defibrillator) in place Automatic implantable cardiac defibrillator in situ Anemia associated with stage 5 chronic renal failure ([facility]) Coronary artery disease involving [place] coronary artery of [place] heart without angina pectoris TIA (transient ischemic attack) Unspecified transient cerebral ischemia Physical deconditioning Debility, unspecified Schatzki's ring Congenital tracheoesophageal fistula, esophageal atresia and stenosis Hiatal hernia Diaphragmatic hernia without mention of obstruction or gangrene Incontinence of feces, unspecified fecal incontinence type History of embolism ESRD (end stage renal disease) ([facility]) End stage renal disease Anemia associated with stage 5 chronic renal failure ([facility])- Primary Stage 5 chronic kidney disease ([facility]) Pacemaker reprogramming/check Fitting and adjustment of cardiac pacemaker [facility] Diagnosis Essential hypertension, benign- Primary DM neuro manif type II, uncontrolled Type II or unspecified type diabetes mellitus with neurological manifestations, uncontrolled Pure hypercholesterolemia Low back pain Lumbago SOB (shortness of breath) Shortness of breath Pure hypercholesterolemia- Primary Diabetes mellitus type 2, uncontrolled, without complications Type II or unspecified type diabetes mellitus without mention of complication, uncontrolled DDD (degenerative disc disease), lumbar Degeneration of lumbar or lumbosacral intervertebral disc Diabetes mellitus type 2, uncontrolled- Primary Type II or unspecified type diabetes mellitus without mention of complication, uncontrolled Essential hypertension, benign SOB (shortness of breath) Shortness of breath Pure hypercholesterolemia Diabetes mellitus type 2, uncontrolled- Primary Type II or unspecified type diabetes mellitus without mention of complication, uncontrolled Neuropathy Mononeuritis of unspecified site Essential hypertension, benign Diabetic polyneuropathy associated with type 2 diabetes mellitus (HCC) Rash of unknown cause Uncontrolled type 2 diabetes mellitus with complication, with long-term current use of insulin- Primary Other diabetic neurological complication associated with type 2 diabetes mellitus (HCC) Osteoarthritis of spine, unspecified spinal osteoarthritis complication status, unspecified spinal region Uncontrolled type 2 diabetes mellitus with complication, with long-term current use of insulin- Primary Pure hypercholesterolemia Essential hypertension, benign Other fatigue Other diabetic neurological complication associated with type 2 diabetes mellitus (HCC)- Primary Uncontrolled type 2 diabetes mellitus without complication, without long-term current use of insulin Uncontrolled type 2 diabetes mellitus with complication, with long-term current use of insulin Palpitations Shortness of breath Other fatigue Essential hypertension, benign Iron deficiency anemia, unspecified iron deficiency anemia type- Primary TIA (transient ischemic attack) Unspecified transient cerebral ischemia Basilar artery stenosis Occlusion and stenosis of basilar artery without mention of cerebral infarction Pre-operative examination- Primary Preoperative examination, unspecified Essential hypertension, benign PSVT (paroxysmal supraventricular tachycardia) ([facility]) Paroxysmal supraventricular tachycardia Pure hypercholesterolemia Right thalamic infarction ([facility]) Diabetic polyneuropathy associated with type 2 diabetes mellitus ([facility]) Functional dyspepsia Dyspepsia and other specified disorders of function of stomach ICD (implantable cardioverter-defibrillator) in place Automatic implantable cardiac defibrillator in situ Anemia associated with stage 5 chronic renal failure ([facility]) Coronary artery disease involving [place] coronary artery of [place] heart without angina pectoris TIA (transient ischemic attack) Unspecified transient cerebral ischemia Physical deconditioning Debility, unspecified Schatzki's ring Congenital tracheoesophageal fistula, esophageal atresia and stenosis Hiatal hernia Diaphragmatic hernia without mention of obstruction or gangrene Incontinence of feces, unspecified fecal incontinence type History of embolism ESRD (end stage renal disease) ([facility]) End stage renal disease Anemia associated with stage 5 chronic renal failure (HCC)- Primary [facility] Diagnosis Essential hypertension, benign- Primary DM neuro manif type II, uncontrolled Type II or unspecified type diabetes mellitus with neurological manifestations, uncontrolled Pure hypercholesterolemia Low back pain Lumbago SOB (shortness of breath) Shortness of breath Pure hypercholesterolemia- Primary Diabetes mellitus type 2, uncontrolled, without complications Type II or unspecified type diabetes mellitus without mention of complication, uncontrolled DDD (degenerative disc disease), lumbar Degeneration of lumbar or lumbosacral intervertebral disc Diabetes mellitus type 2, uncontrolled- Primary Type II or unspecified type diabetes mellitus without mention of complication, uncontrolled Essential hypertension, benign SOB (shortness of breath) Shortness of breath Pure hypercholesterolemia Diabetes mellitus type 2, uncontrolled- Primary Type II or unspecified type diabetes mellitus without mention of complication, uncontrolled Neuropathy Mononeuritis of unspecified site Essential hypertension, benign Diabetic polyneuropathy associated with type 2 diabetes mellitus (HCC) Rash of unknown cause Uncontrolled type 2 diabetes mellitus with complication, with long-term current use of insulin- Primary Other diabetic neurological complication associated with type 2 diabetes mellitus (HCC) Osteoarthritis of spine, unspecified spinal osteoarthritis complication status, unspecified spinal region Uncontrolled type 2 diabetes mellitus with complication, with long-term current use of insulin- Primary Pure hypercholesterolemia Essential hypertension, benign Other fatigue Other diabetic neurological complication associated with type 2 diabetes mellitus (HCC)- Primary Uncontrolled type 2 diabetes mellitus without complication, without long-term current use of insulin Uncontrolled type 2 diabetes mellitus with complication, with long-term current use of insulin Palpitations Shortness of breath Other fatigue Essential hypertension, benign Iron deficiency anemia, unspecified iron deficiency anemia type- Primary TIA (transient ischemic attack) Unspecified transient cerebral ischemia Basilar artery stenosis Occlusion and stenosis of basilar artery without mention of cerebral infarction Pre-operative examination- Primary Preoperative examination, unspecified Essential hypertension, benign PSVT (paroxysmal supraventricular tachycardia) ([facility]) Paroxysmal supraventricular tachycardia Pure hypercholesterolemia Right thalamic infarction (HCC) Diabetic polyneuropathy associated with type 2 diabetes mellitus (HCC) Functional dyspepsia Dyspepsia and other specified disorders of function of stomach ICD (implantable cardioverter-defibrillator) in place Automatic implantable cardiac defibrillator in situ Anemia associated with stage 5 chronic renal failure ([facility]) Coronary artery disease involving [place] coronary artery of [place] heart without angina pectoris TIA (transient ischemic attack) Unspecified transient cerebral ischemia Physical deconditioning Debility, unspecified Schatzki's ring Congenital tracheoesophageal fistula, esophageal atresia and stenosis Hiatal hernia Diaphragmatic hernia without mention of obstruction or gangrene Incontinence of feces, unspecified fecal incontinence type History of embolism ESRD (end stage renal disease) (HCC) End stage renal disease Anemia associated with stage 5 chronic renal failure (HCC)- Primary [facility] Diagnosis Essential hypertension, benign- Primary DM neuro manif type II, uncontrolled Type II or unspecified type diabetes mellitus with neurological manifestations, uncontrolled Pure hypercholesterolemia Low back pain Lumbago SOB (shortness of breath) Shortness of breath Pure hypercholesterolemia- Primary Diabetes mellitus type 2, uncontrolled, without complications Type II or unspecified type diabetes mellitus without mention of complication, uncontrolled DDD (degenerative disc disease), lumbar Degeneration of lumbar or lumbosacral intervertebral disc Diabetes mellitus type 2, uncontrolled- Primary Type II or unspecified type diabetes mellitus without mention of complication, uncontrolled Essential hypertension, benign SOB (shortness of breath) Shortness of breath Pure hypercholesterolemia Diabetes mellitus type 2, uncontrolled- Primary Type II or unspecified type diabetes mellitus without mention of complication, uncontrolled Neuropathy Mononeuritis of unspecified site Essential hypertension, benign Diabetic polyneuropathy associated with type 2 diabetes mellitus (HCC) Rash of unknown cause Uncontrolled type 2 diabetes mellitus with complication, with long-term current use of insulin- Primary Other diabetic neurological complication associated with type 2 diabetes mellitus (HCC) Osteoarthritis of spine, unspecified spinal osteoarthritis complication status, unspecified spinal region Uncontrolled type 2 diabetes mellitus with complication, with long-term current use of insulin- Primary Pure hypercholesterolemia Essential hypertension, benign Other fatigue Other diabetic neurological complication associated with type 2 diabetes mellitus (HCC)- Primary Uncontrolled type 2 diabetes mellitus without complication, without long-term current use of insulin Uncontrolled type 2 diabetes mellitus with complication, with long-term current use of insulin Palpitations Shortness of breath Other fatigue Essential hypertension, benign Iron deficiency anemia, unspecified iron deficiency anemia type- Primary TIA (transient ischemic attack) Unspecified transient cerebral ischemia Basilar artery stenosis Occlusion and stenosis of basilar artery without mention of cerebral infarction Pre-operative examination- Primary Preoperative examination, unspecified Essential hypertension, benign PSVT (paroxysmal supraventricular tachycardia) ([facility]) Paroxysmal supraventricular tachycardia Pure hypercholesterolemia Right thalamic infarction ([facility]) Diabetic polyneuropathy associated with type 2 diabetes mellitus ([facility]) Functional dyspepsia Dyspepsia and other specified disorders of function of stomach ICD (implantable cardioverter-defibrillator) in place Automatic implantable cardiac defibrillator in situ Anemia associated with stage 5 chronic renal failure ([facility]) Coronary artery disease involving [place] coronary artery of [place] heart without angina pectoris TIA (transient ischemic attack) Unspecified transient cerebral ischemia Physical deconditioning Debility, unspecified Schatzki's ring Congenital tracheoesophageal fistula, esophageal atresia and stenosis Hiatal hernia Diaphragmatic hernia without mention of obstruction or gangrene Incontinence of feces, unspecified fecal incontinence type History of embolism ESRD (end stage renal disease) (HCC) End stage renal disease Anemia associated with stage 5 chronic renal failure ([facility])- Primary [facility] Diagnosis Essential hypertension, benign- Primary DM neuro manif type II, uncontrolled Type II or unspecified type diabetes mellitus with neurological manifestations, uncontrolled Pure hypercholesterolemia Low back pain Lumbago SOB (shortness of breath) Shortness of breath Pure hypercholesterolemia- Primary Diabetes mellitus type 2, uncontrolled, without complications Type II or unspecified type diabetes mellitus without mention of complication, uncontrolled DDD (degenerative disc disease), lumbar Degeneration of lumbar or lumbosacral intervertebral disc Diabetes mellitus type 2, uncontrolled- Primary Type II or unspecified type diabetes mellitus without mention of complication, uncontrolled Essential hypertension, benign SOB (shortness of breath) Shortness of breath Pure hypercholesterolemia Diabetes mellitus type 2, uncontrolled- Primary Type II or unspecified type diabetes mellitus without mention of complication, uncontrolled Neuropathy Mononeuritis of unspecified site Essential hypertension, benign Diabetic polyneuropathy associated with type 2 diabetes mellitus (HCC) Rash of unknown cause Uncontrolled type 2 diabetes mellitus with complication, with long-term current use of insulin- Primary Other diabetic neurological complication associated with type 2 diabetes mellitus (HCC) Osteoarthritis of spine, unspecified spinal osteoarthritis complication status, unspecified spinal region Uncontrolled type 2 diabetes mellitus with complication, with long-term current use of insulin- Primary Pure hypercholesterolemia Essential hypertension, benign Other fatigue Other diabetic neurological complication associated with type 2 diabetes mellitus (HCC)- Primary Uncontrolled type 2 diabetes mellitus without complication, without long-term current use of insulin Uncontrolled type 2 diabetes mellitus with complication, with long-term current use of insulin Palpitations Shortness of breath Other fatigue Essential hypertension, benign Iron deficiency anemia, unspecified iron deficiency anemia type- Primary TIA (transient ischemic attack) Unspecified transient cerebral ischemia Basilar artery stenosis Occlusion and stenosis of basilar artery without mention of cerebral infarction Pre-operative examination- Primary Preoperative examination, unspecified Essential hypertension, benign PSVT (paroxysmal supraventricular tachycardia) (HCC) Paroxysmal supraventricular tachycardia Pure hypercholesterolemia Right thalamic infarction (HCC) Diabetic polyneuropathy associated with type 2 diabetes mellitus (HCC) Functional dyspepsia Dyspepsia and other specified disorders of function of stomach ICD (implantable cardioverter-defibrillator) in place Automatic implantable cardiac defibrillator in situ Anemia associated with stage 5 chronic renal failure (HCC) Coronary artery disease involving [place] coronary artery of [place] heart without angina pectoris TIA (transient ischemic attack) Unspecified transient cerebral ischemia Physical deconditioning Debility, unspecified Schatzki's ring Congenital tracheoesophageal fistula, esophageal atresia and stenosis Hiatal hernia Diaphragmatic hernia without mention of obstruction or gangrene Incontinence of feces, unspecified fecal incontinence type History of embolism ESRD (end stage renal disease) (HCC) End stage renal disease Anemia associated with stage 5 chronic renal failure (HCC)- [facility] Essential hypertension, benign- Primary DM neuro manif type II, uncontrolled Type II or unspecified type diabetes mellitus with neurological manifestations, uncontrolled Pure hypercholesterolemia Low back pain Lumbago SOB (shortness of breath) Shortness of breath Pure hypercholesterolemia- Primary Diabetes mellitus type 2, uncontrolled, without complications Type II or unspecified type diabetes mellitus without mention of complication, uncontrolled DDD (degenerative disc disease), lumbar Degeneration of lumbar or lumbosacral intervertebral disc Diabetes mellitus type 2, uncontrolled- Primary Type II or unspecified type diabetes mellitus without mention of complication, uncontrolled Essential hypertension, benign SOB (shortness of breath) Shortness of breath Pure hypercholesterolemia Diabetes mellitus type 2, uncontrolled- Primary Type II or unspecified type diabetes mellitus without mention of complication, uncontrolled Neuropathy Mononeuritis of unspecified site Essential hypertension, benign Diabetic polyneuropathy associated with type 2 diabetes mellitus (HCC) Rash of unknown cause Uncontrolled type 2 diabetes mellitus with complication, with long-term current use of insulin- Primary Other diabetic neurological complication associated with type 2 diabetes mellitus (HCC) Osteoarthritis of spine, unspecified spinal osteoarthritis complication status, unspecified spinal region Uncontrolled type 2 diabetes mellitus with complication, with long-term current use of insulin- Primary Pure hypercholesterolemia Essential hypertension, benign Other fatigue Other diabetic neurological complication associated with type 2 diabetes mellitus (HCC)- Primary Uncontrolled type 2 diabetes mellitus without complication, without long-term current use of insulin Uncontrolled type 2 diabetes mellitus with complication, with long-term current use of insulin Palpitations Shortness of breath Other fatigue Essential hypertension, benign Iron deficiency anemia, unspecified iron deficiency anemia type- Primary TIA (transient ischemic attack) Unspecified transient cerebral ischemia Basilar artery stenosis Occlusion and stenosis of basilar artery without mention of cerebral infarction Pre-operative examination- Primary Preoperative examination, unspecified Essential hypertension, benign PSVT (paroxysmal supraventricular tachycardia) (HCC) Paroxysmal supraventricular tachycardia Pure hypercholesterolemia Right thalamic infarction (HCC) Diabetic polyneuropathy associated with type 2 diabetes mellitus (HCC) Functional dyspepsia Dyspepsia and other specified disorders of function of stomach ICD (implantable cardioverter-defibrillator) in place Automatic implantable cardiac defibrillator in situ Anemia associated with stage 5 chronic renal failure (HCC) Coronary artery disease involving [place] coronary artery of [place] heart without angina pectoris TIA (transient ischemic attack) Unspecified transient cerebral ischemia Physical deconditioning Debility, unspecified Schatzki's ring Congenital tracheoesophageal fistula, esophageal atresia and stenosis Hiatal hernia Diaphragmatic hernia without mention of obstruction or gangrene Incontinence of feces, unspecified fecal incontinence type History of embolism ESRD (end stage renal disease) (HCC) End stage renal disease Anemia associated with stage 5 chronic renal failure (HCC)- Primary Stage 5 chronic kidney disease (HCC) [facility] Author Wilton Javier [facility] August 23, 2023 12:07pm Note Date/Time August 23, 2023 1 2:07pm [facility] Medical Records Department [address] [place] [address] History & Physical Exam 08/23/23 1207 MR#: [id number] Acct: [id number] Name: LOU JULIEN Rep #:[id number] : 1955 67 From: Wilton Javier DO PCP: Dr. Vera Manrique MD Status:[facility] Location: [place] [address] History and Physical Date of Admission: 08/23/23 67 M who presents to the office today for *BGI established 06.15.22 for management of constipation with one spontaneous BM every 1-2 weeks with incomplete evacuation without pain or bloating. Start lactulose [facility] 2.03.29 with N/V and hyperglycemia with BS of 600 the day prior, but has not been taking Victoza as he thought it was . Glucose H531. Treated withfluids and glucose correction. Discharged with Reglan for nausea management. ? US RUQ 2.03.29 hepatic measurement 16.8cm with normal echogenicity; diffuse pancreatic atrophy with normal echogenicity. GI workup: ? Biochemical 03.14.23 CBC (hgb L8.9), haptoglobin, ferritin, LDH, IgGAM, GALINDO without pertinent abnormality ? Iron L50, TIBC L210 ? Capsule endoscopy 03.21.23 small amount of blood seen in stomach without identifiable source EGD and colonoscopy 06.22.23 EGD LA Grade A esophagitis, metaplasia +; Schatzki ring, Savary 51F; medium hiatal hernia; granular mucosa of pylorus and duodenum;many oozing gastric ulcers of duodenum, APC. Colonoscopy poor prep; diverticulosis; six polyps, 5 requiring submucosal lift, tattooed. Polyps TA with one having focal high-grade dysplasia 4.5mm at greatestdimension. [facility] 06.29.23 with abdominal pain and lack of BM for one week. Hydrated and discharged with bowel regimen. Contact, 07.06.23 requesting callback, not received. OV 08.11.23 Reports BM once a week. He now has an aide who helps with his BS control. ROS Const Constitutional: Positive for headache(s); No fatigue ENT ENT: Positive for headache(s); No difficulty swallowing Gastro GI: No abdominal pain, belching, bloating, change in bowel habits, change in stool character, coffee ground emesis, constipation, cramping, diarrhea, heartburn, difficulty swallowing, feeling full early, excessive flatus, incontinent of stools, Vomiting blood/hematemesis, Blood in stool, loose stools, Black,tarry stools, nausea/dyspepsia, pain with swallowing, vomiting or other Musc Musculoskeletal: Positive for leg pain at night; No joint pain Skin Skin: No yellowing of the eye or itchy eyes Neuro Neurology: Positive for headache(s) Psych Psychiatric: No anxiety and No depression Endo Endocrine: No fatigue Aller/Imm Allergy/Immunologic: No itchy eyes Calderon/Lymp Hematologic/Lymphatic: No easy bleeding or easy bruising Quality Reporting Tobacco Screening ([facility]) Smoking Status: Former smoker Assessment and Plan Assessment and Plan (1) Anemia: Status: Chronic Qualifiers: Anemia type: iron deficiency Plan: Iron deficiency anemia from an unknown cause. 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 Patient says that he does not see a concrete block maker so we will need to refer him to concrete block maker. We may perform a capsule endoscopy to see if he has any signs of peptic ulcer disease, angiodysplasia secondary to chronic kidney disease, telangiectasia. Hemay also need to be started on iron therapy. Iron studies including CBC, reticulocyte count, LDH, haptoglobin, ferritin, TIBC, saturation. (2) Constipation: Status: Chronic Qualifiers: Constipation type: slow transit constipation Qualified Code(s): K59.01 - Slow transit constipation Plan: For his constipation lactulose therapy. I explained to him that Lactulose may cause his blood sugar to increase. He says that he had egd and colonoscopy in the past.. (3) High grade dysplasia in colonic adenoma: Status: Acute Plan: 6 adenomatous polyps that were removed during his colonoscopy. One of the polyps was tubular adenoma with high-grade dysplasia. We will get a repeat colonoscopy with better prep and evaluation of the polypectomy site. 08/23/23 1207 <Electronically signed by Wilton Javier DO> Cosigner Signature (if applicable): CC: Dr. Vera Manrique MD; Wilton Javier, ~ Signed [facility] Work Phone: Hospital course Narrative No data available for this section [facility] Work Phone: [facility] Work Phone: Hospital Discharge instructions Additional Instructions Your labs were consistent with high blood sugar but no other significant abnormalities that are acute. Your alkaline phosphatase was mildly elevated which is a nonspecific finding. This led to your ultrasound of your gallbladder which did show a gallbladder polyp. You been referred to Dr. Mckeon, general surgery, for further evaluation of this. I do not think it is the cause of your problems today. Please follow-up with your primary care doctor and make sure you are taking all of your diabetic medications as prescribed. Return if you have progression or worsening of your symptoms.[facility] Work Phone: Hospital Discharge instructions Additional Instructions Thank you for trusting us with your care today! Please take Tylenol (2 pills, 650 mg), ibuprofen (2 pills, 400 mg) every 6 hours as needed for pain and fever control. Please go to a local pharmacy or drugstore and obtain MiraLAX, senna and Colace. Please begin taking each of these medicines daily until your desired consistency bowel movement is achieved. Please drink increased fluids by mouth. I recommend taking Pedialyte, body armor or Gatorade for rehydration. Please return if develop any nausea or vomiting or you are unable to take fluids by mouth. Please call your primary care doctor's office tomorrow to obtain an outpatient order to measure your kidney function. Please return to the emergency department if your symptoms change or worsen. Specifically if you develop nausea, vomiting, worsening abdominal pain, if you lose consciousness or if your symptoms change or worsen in any way. Please follow with your primary care physician for further outpatient evaluation and management.[facility] Work Phone: Hospital Discharge instructionsAdditional Instructions Thank you for trusting us with your care today! The x-ray of your ankle was negative for signs of a broken bone. You likely suffered an ankle sprain. This is treated with rest, ice, compression elevation and pain medicine such as Tylenol and ibuprofen. Pain and swelling to resolve spontaneously in several weeks Please take Tylenol (2 pills, 650 mg), ibuprofen (2 pills, 400 mg) every 6 hours as needed for pain and fever control. Please return to the emergency department if your symptoms change or worsen. Please follow with your primary care physician for further outpatient evaluation and management.[facility] Work Phone: Reason for referral (narrative)* Outpatient Procedure (Routine) - Closed Specialty Diagnoses / Procedures Referred By Contac t Referred To Contact [facility] Diagnoses Dyspnea on exertion Procedures ECHO ECHO TTHRC R-T 2D W/WOM-MODE COMPL SPEC&COLR D Taco Tatum APRN.HELIARC WELDER [address] [place] [address] [facility] [address] [place] [address] Referral ID Status Reason Start Date Expiration Date V isits Requested Visits Authorized [id number] Closed Auto-Generate d Referral 01/25/2023 01/25/2024 [address] [facility] for referral (narrative)* Diagnostic Procedure Only (Routine) - Closed Specialty Diagnoses / Procedures Referred By Contac t Referred To Contact US IMAGING Diagnoses Screening for abdominal aortic aneurysm Procedures US SCREENING FOR AAA US ABDOMINAL AORTA REAL TIME SCREEN STUDY AAA Taco Tatum APRN.CNP [address] [place] [address] [place] [id number] Referral ID Status Reason Start Date Expiration Date V isits Requested Visits Authorized [id number] Closed Auto-Generate d Referral 02/07/2024 03/08/2025 [address] [facility] for referral (narrative)* Outpatient Procedure (Routine) - Authorized Specialty Diagnoses / Procedures Referred By Contac t Referred To Contact [facility] Diagnoses Anemia, unspecified type Abnormal weight loss Pacemaker Procedures COLONOSCOPY DIAGNOSTIC COLONOSCOPY FLX DX W/COLLJ SPEC WHEN PFDonna Abraham APRN.CNP [address] [place] [address] [facility] Disease [place] [id number] Referral ID Status Reason Start Date Expiration Date Visits Requested Visits Authorized [id number] Authorized Auto-Generat ed Referral 06/13/2024 06/13/2025 1 1 * Outpatient Procedure (Routine) - Authorized Specialty Diagnoses / Procedures Referred By Bobby t Referred To Contact [facility] Diagnoses Anemia, unspecified type Abnormal weight loss Pacemaker Procedures EGD DIAGNOSTIC ESOPHAGOGASTRODUODENOSC OPY TRANSORAL DIAGNOSTIC Donna Haynes APRN.CNP [address] [facility] [place] [address] [facility] [place] [address] Referral ID Status Reason Start Date Expiration Date Visits Requested Visits Authorized [id number] Authorized Auto-Generat ed Referral 06/13/2024 06/13/2025 [address] [facility] for referral (narrative)No reason for referral information availableWTrumbull [facility] Work Phone: Reason for visit Narrative* Outpatient Procedure (Routine) - Authorized Specialty Diagnoses / Procedures Referred By Contac t Referred To Contact [facility] Diagnoses Pacemaker reprogramming/check Procedures CARDIAC IMPLANTABLE DEVICE CHECK Cardiology [address] [place] [address] Phone: tel: [facility] [address] [place] [address] Referral ID Status Reason Start Date Expiration Date Visits Requested Visits Authorized [id number] Authorized Auto-Generat ed Referral 01/24/2025 01/24/2026 1 1 [facility] [place] Prior Authorization (Routine) - Authorized Specialty Diagnoses / Procedures Referred By Contac t Referred To Contact Diagnoses Anemia associated with stage 5 chronic renal failure (HCC) Nini Freire, DO [address] [place] [address] Phone: tel: fax: Nini Freire, DO [address] [place] [address] Phone: tel: fax: Referral ID Status Reason Start Date Expiration Date V isits Requested Visits Authorized [id number] Authorized 12/24/2024 03/24/2025 99 99 [facility] Summary Purpose Family History No Family History Records Found Relationship Condition Age at Onset Recorded Date/T queenie mother Malignant neoplasm Unknown father Cardiac disease Unknown Hypertension Unknown Myocardial infarction Unknown Advance Directives No Advanced Directives Records FoundDocuments on File Type Date Recorded Patient Veneer Grader Expl anation Advance Directive(s) 11/19/2019 8:17 AM Advance Directive(s) 08/22/2019 11:16 AM Advance Directive(s) 2017 7:11 AM Advance Directive(s) 12/13/2017 7:10 AM Advance Directive Response Recorded Date/ Time Advance Directives No March 05 2:29am Living Will No November 15, 2021 4:46pm Power of Planer Operator / Grader No November 15 4:46pm Advance Directive Response Recorded Date/ Time Advance Directives No March 05 2:29am Living Will No November 20, 2021 9:15pm Power of Planer Operator / Grader No November 20 9:15pm Advance Directive Response Recorded Date/ Time Advance Directives No March 05 2:29am Living Will No March 11, 2022 3:19pm Power of Planer Operator / Grader No March 11 3:19pm Advance Directive Response Recorded Date/ Time Advance Directives No March 05 2:29am Living Will No March 18 11:03am Power of Planer Operator / Grader No March 18 022 11:03am Advance Directive Response Recorded Date/ Time Advance Directives No March 05 2:29am Living Will No March 18 4:34pm Power of Planer Operator / Grader No March 18 022 4:34pm Advance Directive Response Recorded Date/ Time Name of Medical Power of Planer Operator / Grader sisterTRINI September 14, 2022 10:35am Advance Directives No March 05 1:29am Living Will No September 14 10:35am Power of Planer Operator / Grader Yes September 14, 2022 10:35am Advance Directive Response Recorded Date/ Time Name of Medical Power of Planer Operator / Grader , TRINI September 14, 2022 10:35am Advance Directives No March 05 1:29am Living Will No September 30 2 023 4:32pm Power of Planer Operator / Grader No September 30, 2022 4:32pm Advance Directive Response Recorded Date/ Time Name of Medical Power of Planer Operator / Grader sister POA September 14, 2022 10:35am Advance Directives No March 05 1:29am Living Will No October 02 2 023 8:08pm Power of Planer Operator / Grader No October 02, 2022 8:08pm Advance Directive Response Recorded Date/ Time Advance Directives No March 05 2:29am Living Will No March 04, 2023 5:40pm Power of Planer Operator / Grader No March 04 5:40pm Advance Directive Response Recorded Date/ Time Advance Directives No March 05 2:29am Living Will No April 07 023 9:25am Power of Planer Operator / Grader No April 07, 2023 9:25am Advance Directive Response Recorded Date/ Time Advance Directives No March 05 1:29am Living Will No May 25 11:49am Power of Planer Operator / Grader No May 25, 2023 11:49am Advance Directive Response Recorded Date/ Time Name of Medical Power of Planer Operator / Grader SUKI Mack June 29, 2023 1:57pm Advance Directives No March 05 1:29am Living Will No June 29 1:57pm Power of Planer Operator / Grader Yes June 29, 2023 1:57pm Advance Directive Response Recorded Date/ Time Name of Medical Power of Planer Operator / Grader SUKI Mack June 29, 2023 1:57pm Name of Medical Power of Planer Operator / Grader SISTER August 21, 2023 3:46pm Advance Directives No March 05 1:29am Living Will No August 21 3:46pm Power of Planer Operator / Grader Yes August 21, 2023 3:46pm Advance Directive Response Recorded Date/ Time Do you have a Healthcare Power of Planer Operator / Grader? Yes December 23, 2024 7:01pm Name of Medical Power of Planer Operator / Grader Suki mccain December 23, 2024 7:01pm Advance Directives No March 05 2:29am Advance Directive Response Recorded Date/ Time Do you have a Healthcare Pow er of Planer Operator / Grader? Yes December 23, 2024 7:01pm Name of Medical Power of Planer Operator / Grader Suki Villegas rs December 23, 2024 7:01pm Do you have a Healthcare Pow er of Planer Operator / Grader? Yes March 19, 2025 12:18pm Advance Directives No March 05 2:29am Advance Directive Response Recorded Date/ Time Do you have a Healthcare Power of Planer Operator / Grader? Yes March 19, 2025 12:18pm Do you have a Healthcare Power of Planer Operator / Grader? No April 28, 2025 11:37am Advance Directives No March 05 2:29am Hospital Course Note HNO ID: [id number] Author: Frederick Estrada Service: Hospital Medicine Author Type: Physician Type: Discharge Summary Filed: 08/24/2019 9:02 PM Note Text: DISCHARGE SUMMARY PATIENT NAME: Lou Julien ADMISSION DATE: 08/21/2019 DISCHARGE DATE: 08/24/2019 Attending Physician: Kasey Estrada Code Status: Full Code Highest Readmission Risk Score: 13 The 30 day readmissions risk score is derived from an internally validated risk model which evaluates patient level characteristics, utilization history, medication orders and lab results up until the day of discharge. Patients with a score of 40 or above are considered highest risk for readmission. Specific patient level drivers will be listed at the bottom of the summary. The 30 day readmissions risk score is derived from an internally validated risk model which evaluates patient level characteristics, utilization history, medication orders and lab results up until the day of discharge. Patients with a score of 40 or abov (more content not included)... Note HNO ID: [id number] Author: Rema Herrera Service: Radiology Author Type: Physician Type: Brief Op Note Filed: 08/22/2019 2:42 PM Note Text: BRIEF OP/PROCEDURE NOTE NEURO INTERVENTIONAL PROCEDURE DATE: August 22, 2019 LOG ID: [id number] Surgery/Procedure Date: 08/22/2019 Incision/Procedure Start Time: 1320 Incision Close/Procedure End Time: 1400 Anesthesia: Procedural Sedation PRIMARY PROCEDURALIST: Kendy Herrera M.D. 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 Magallon at time of exam ESTIMATED BLOOD LOSS: 15 ml COMPLICATIONS: None SPECIMENS: Not Applicable SIGNATURE: Kendy Herrera MD PATIENT NAME: Lou Julien DATE: August 22, 2019 TIME: 2:40 PM PAGER/CONTACT #: [phone] Procedure Findings Note HNO ID: [id number] Author: Rema Herrera Service: Radiology Author Type: Physician Type: Brief Op Note Filed: 08/22/2019 2:42 PM Note Text: BRIEF OP/PROCEDURE NOTE NEURO INTERVENTIONAL PROCEDURE DATE: August 22, 2019 LOG ID: [id number] Surgery/Procedure Date: 08/22/2019 Incision/Procedure Start Time: 1320 Incision Close/Procedure End Time: 1400 Anesthesia: Procedural Sedation PRIMARY PROCEDURALIST: Kendy Herrera M.D. 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 Magallon at time of exam ESTIMATED BLOOD LOSS: 15 ml COMPLICATIONS: None SPECIMENS: Not Applicable SIGNATURE: Kendy Herrera MD PATIENT NAME: Lou Julien DATE: August 22, 2019 TIME: 2:40 PM PAGER/CONTACT #: [phone] Chief Complaint and Reason for Visit Chief Complaint CATHETER LEAKING 6 mos PPM f/u. Pt unable to do remotes I73.9 diarrhea x5 days, not feeling well Reason for Visit Complete heart block CVA (cerebral vascular accident) History of permanent cardiac pacemaker placement Paroxysmal supraventricular tachycardia Sick sinus syndrome Chief Complaint CATHETER LEAKING 6 mos PPM f/u. Pt unable to do remotes I73.9 diarrhea x5 days, not feeling well gi bleed Reason for Visit Complete heart block CVA (cerebral vascular accident) History of permanent cardiac pacemaker placement Paroxysmal supraventricular tachycardia Sick sinus syndrome Chief Complaint diarrhea x5 days, n ot feeling well gi bleed 1 Y FU LEFT SIDED WEAKNESS Reason for Visit CVA (cerebral vascul ar accident) History of permanent cardiac pacemaker placement Paroxysmal supraventricular tachycardia Anemia CVA (cerebral vascular accident) Chief Complaint diarrhea x5 days, n ot feeling well gi bleed 1 Y FU LEFT SIDED WEAKNESS LEFT SIDED WEAKNESS Programming for MRI LEFT SIDED WEAKNESS Reason for Visit CVA (cerebral vascul ar accident) History of permanent cardiac pacemaker placement Paroxysmal supraventricular tachycardia Acute left-sided muscle weakness Anemia Chronic kidney disease, stage 3b CVA (cerebral vascular accident) Complete heart block History of permanent cardiac pacemaker placement Paroxysmal supraventricular tachycardia Sick sinus syndrome Chief Complaint gi bleed 1 Y FU LEFT SIDED WEAKNESS LEFT SIDED WEAKNESS Programming for MRI LEFT SIDED WEAKNESS hypoglycemia COVID, PNA, HYPOGLYCEMIA Reason for Visit CVA (cerebral vascul ar accident) History of permanent cardiac pacemaker placement Paroxysmal supraventricular tachycardia Acute left-sided muscle weakness Anemia Chronic kidney disease, stage 3b CVA (cerebral vascular accident) Complete heart block History of permanent cardiac pacemaker placement Paroxysmal supraventricular tachycardia Sick sinus syndrome Adult failure to thrive COVID-19 Hypoglycemia Pneumonia of right lower lobe due to infectious organism Chief Complaint 1 Y FU LEFT SIDED WEAKNESS LEFT SIDED WEAKNESS Programming for MRI LEFT SIDED WEAKNESS hypoglycemia COVID, PNA, HYPOGLYCEMIA COVID, PNA, HYPOGLYCEMIA COVID, PNA, HYPOGLYCEMIA COVID, PNA, HYPOGLYCEMIA COVID, PNA, HYPOGLYCEMIA Reason for Visit History of permanent cardiac pacemaker placement Paroxysmal supraventricular tachycardia Anemia Chronic kidney disease, stage 3b Acute left-sided muscle weakness Complete heart block History of permanent cardiac pacemaker placement Paroxysmal supraventricular tachycardia Sick sinus syndrome Adult failure to thrive COVID-19 Hypoglycemia Pneumonia of right lower lobe due to infectious organism Chief Complaint Consult nausea/vomitting, hypergylcemia Reason for Visit Anemia Constipation Chief Complaint Consult nausea/vomitting, hypergylcemia ED 2 GALLBLADDER FALL Reason for Visit Anemia Constipation Fall (on) (from) other stairs and steps, initial encounter Gallbladder polyp Vomiting Chief Complaint Consult nausea/vomitting, hypergylcemia ED 2 GALLBLADDER FALL hyperglycemia Reason for Visit Anemia Constipation Fall (on) (from) other stairs and steps, initial encounter Gallbladder polyp Vomiting Chief Complaint FU fall Reason for Visit Anemia Constipation Chief Complaint FU fall 1 Y FU E-ORDER Reason for Visit Anemia Constipation Chief Complaint FU fall 1 Y FU E-ORDER cap endo Reason for Visit Anemia Constipation History of permanent cardiac pacemaker placement Paroxysmal supraventricular tachycardia Chief Complaint FU fall 1 Y FU E-ORDER cap endo CKD STAGE 4; BRUIT LT CAROTID ARTERY Reason for Visit Anemia Constipation History of permanent cardiac pacemaker placement Paroxysmal supraventricular tachycardia Chief Complaint FU fall 1 Y FU E-ORDER cap endo CKD STAGE 4; BRUIT LT CAROTID ARTERY ABD PAIN Reason for Visit Anemia Constipation History of permanent cardiac pacemaker placement Paroxysmal supraventricular tachycardia Chief Complaint CKD STAGE 4; BRUIT L T CAROTID ARTERY ABD PAIN fall 5 MO FU Reason for Visit High grade dysplasia in colonic adenoma Anemia Constipation Chief Complaint Admit Date SORES ON BUTT December 23, 2024 6:41p m Chief Complaint Admit Date SORES ON BUTT December 23, 2024 6:41p m ankle injury, fall March 19, 2025 12 :14pm Chief Complaint Admit Date ankle injury, fall March 19, 2025 12 :14pm cowan April 28, 2025 10:41am Reason for Referral Specialty Diagnoses / Procedures Referred By Bobby verma Referred To Contact Nephrology Diagnoses Function kidney decreased Stage 4 chronic kidney disease (HCC) Procedures CONSULT TO NEPHROLOGY OFFICE/OUTPATIENT NEW HIGH MDM 60-74 MINUTES Rc, LAINE Zuniga.HELIARC WELDER [address] [place] [address] Referral ID Status Reason Start Date Expiration Date Visits Requested Visits Authorized [id number] Authorized PCP Requested Referral 01/31/2023 01/31/2024 1 1 Specialty Diagnoses / Procedures Referred By Bobby verma Referred To Contact US IMAGING Diagnoses Function kidney decreased Stage 4 chronic kidney disease (HCC) Procedures US KIDNEY/BLADDER US RETROPERITONEAL REAL TIME W/IMAGE COMPLETE Taco Tatum APRN.HELIARC WELDER [address] [place] [address] [facility] Imaging Referral ID Status Reason Start Date Expiration Date Visits Requested Visits Authorized [id number] Pending Review Auto-Generat ed Referral 01/31/2023 03/01/2024 1 1 Specialty Diagnoses / Procedures Referred By Contac t Referred To Contact General Surgery Diagnoses 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) Colon cancer screening Type 2 diabetes mellitus with stage 4 chronic kidney disease, with long-term current use of insulin (HCC) Poor memory Procedures CONSULT TO GENERAL SURGERY OFFICE/OUTPATIENT NEW HIGH [facility] 60 MINUTES Taco Tatum APRN.HELIARC WELDER [address] [place] [address] Referral ID Status Reason Start Date Expiration Date Visits Requested Visits Authorized [id number] Authorized PCP Requested Referral 02/07/2024 02/06/2025 1 1 Specialty Diagnoses / Procedures Referred By Contac t Referred To Contact US IMAGING Diagnoses Screening for abdominal aortic aneurysm Procedures US SCREENING FOR AAA US ABDOMINAL AORTA REAL TIME SCREEN STUDY AAA Taco Tatum APRN.HELIARC WELDER [address] [place] [address] [place] [address] Referral ID Status Reason Start Date Expiration Date Visits Requested Visits Authorized [id number] Authorized Auto-Generat ed Referral 02/07/2024 03/08/2025 1 1 Specialty Diagnoses / Procedures Referred By Contac t Referred To Contact Diagnoses Anemia of renal disease Other iron deficiency anemia Procedures CONSULT TO HEMATOLOGY/ONCOLOGY OFFICE/OUTPATIENT NEW HIGH MDM 60 MINUTES Janice Hodges, RUNNING SPECIALIST.HELIARC WELDER [address] [place] [address] Referral ID Status Reason Start Date Expiration Date Visits Requested Visits Authorized [id number] Authorized PCP Requested Referral 03/01/2024 02/22/2025 1 1 Specialty Diagnoses / Procedures Referred By Contac t Referred To Contact General Surgery Diagnoses Anemia, unspecified type Abnormal weight loss Procedures CONSULT TO GENERAL SURGERY OFFICE/OUTPATIENT NEW HIGH [facility] 60 MINUTES Nini Freire, [address] [place] [address] Referral ID Status Reason Start Date Expiration Date Visits Requested Visits Authorized [id number] Authorized PCP Requested Referral 03/08/2024 03/08/2025 1 1 Specialty Diagnoses / Procedures Referred By Contac t Referred To Contact Diagnoses Fall, subsequent encounter Arm bruise, left, sequela Vera Manrique MD [address] [place] [address] Referral ID Status Reason Start Date Expiration Date V isits Requested Visits Authorized [id number] Pending Review 04/01/2024 05/31/2024 1 1 Specialty Diagnoses / Procedures Referred By Contac t Referred To Contact Endocrinology Diagnoses Type 2 diabetes mellitus with stage 3b chronic kidney disease, with long-term current use of insulin (HCC) Procedures CONSULT TO ENDOCRINOLOGY OFFICE/OUTPATIENT [facility] 60 MINUTES Vera Manrique MD [address] [place] [address] Referral ID Status Reason Start Date Expiration Date Visits Requested Visits Authorized [id number] Authorized PCP Requested Referral 05/09/2024 05/09/2025 1 1 Additional Source Comments (unrecognized sect ion and content) No Status Records FoundNo Status Records FoundNo Status Records FoundNo Status Records FoundNo Status Records FoundNo Status Records FoundNo Status Records Found INFORMATION SOURCE (unrecogn ized section and content) DATE CREATED AUTHOR 08/25/2019 [facility] DATE CREATED AUTHOR AUTHOR'S ORGANIZ ATION 08/29/2019 [facility] DATE CREATED AUTHOR AUTHOR'S ORGANIZ ATION 03/19/2022 [facility] DATE CREATED AUTHOR AUTHOR'S ORGANIZ ATION 01/22/2025 [facility] DATE CREATED AUTHOR AUTHOR'S ORGANIZ ATION 05/09/2025 [facility] DATE CREATED AUTHOR AUTHOR'S ORGANIZ ATION 05/23/2025 [facility] DATE CREATED AUTHOR AUTHOR'S ORGANIZ ATION 06/17/2025 [facility] Source Comments (unrecognize d section and content) In the event this informatio n is protected by the Federal Confidentiality of Alcohol and Drug Abuse Patient Records regulations: The Federal rules restrict any use of the information to criminally investigate or prosecute any alcohol or drug abuse patient.[facility] the event this information is protected by the Federal Confidentiality of Alcohol and Drug Abuse Patient Records regulations: The Federal rules restrict any use of the information to criminally investigate or prosecute any alcohol or drug abuse patient.[facility] HospitalIn the event this information is protected by the Federal Confidentiality of Alcohol and Drug Abuse Patient Records regulations: The Federal rules restrict any use of the information to criminally investigate or prosecute any alcohol or drug abuse patient.[facility] HospitalIn the event this information is protected by the Federal Confidentiality of Alcohol and Drug Abuse Patient Records regulations: The Federal rules restrict any use of the information to criminally investigate or prosecute any alcohol or drug abuse patient.[facility] HospitalIn the event this information is protected by the Federal Confidentiality of Alcohol and Drug Abuse Patient Records regulations: The Federal rules restrict any use of the information to criminally investigate or prosecute any alcohol or drug abuse patient.[facility] HospitalIn the event this information is protected by the Federal Confidentiality of Alcohol and Drug Abuse Patient Records regulations: The Federal rules restrict any use of the information to criminally investigate or prosecute any alcohol or drug abuse patient.[facility] HospitalIn the event this information is protected by the Federal Confidentiality of Alcohol and Drug Abuse Patient Records regulations: The Federal rules restrict any use of the information to criminally investigate or prosecute any alcohol or drug abuse patient.[facility] HospitalIn the event this information is protected by the Federal Confidentiality of Alcohol and Drug Abuse Patient Records regulations: The Federal rules restrict any use of the information to criminally investigate or prosecute any alcohol or drug abuse patient.[facility] HospitalIn the event this information is protected by the Federal Confidentiality of Alcohol and Drug Abuse Patient Records regulations: The Federal rules restrict any use of the information to criminally investigate or prosecute any alcohol or drug abuse patient.[facility] HospitalIn the event this information is protected by the Federal Confidentiality of Alcohol and Drug Abuse Patient Records regulations: The Federal rules restrict any use of the information to criminally investigate or prosecute any alcohol or drug abuse patient.[facility] HospitalIn the event this information is protected by the Federal Confidentiality of Alcohol and Drug Abuse Patient Records regulations: The Federal rules restrict any use of the information to criminally investigate or prosecute any alcohol or drug abuse patient.[facility] HospitalIn the event this information is protected by the Federal Confidentiality of Alcohol and Drug Abuse Patient Records regulations: The Federal rules restrict any use of the information to criminally investigate or prosecute any alcohol or drug abuse patient.[facility] HospitalIn the event this information is protected by the Federal Confidentiality of Alcohol and Drug Abuse Patient Records regulations: The Federal rules restrict any use of the information to criminally investigate or prosecute any alcohol or drug abuse patient.[facility] HospitalIn the event this information is protected by the Federal Confidentiality of Alcohol and Drug Abuse Patient Records regulations: The Federal rules restrict any use of the information to criminally investigate or prosecute any alcohol or drug abuse patient.[facility] HospitalIn the event this information is protected by the Federal Confidentiality of Alcohol and Drug Abuse Patient Records regulations: The Federal rules restrict any use of the information to criminally investigate or prosecute any alcohol or drug abuse patient.[facility] HospitalIn the event this information is protected by the Federal Confidentiality of Alcohol and Drug Abuse Patient Records regulations: The Federal rules restrict any use of the information to criminally investigate or prosecute any alcohol or drug abuse patient.[facility] HospitalIn the event this information is protected by the Federal Confidentiality of Alcohol and Drug Abuse Patient Records regulations: The Federal rules restrict any use of the information to criminally investigate or prosecute any alcohol or drug abuse patient.[facility] HospitalIn the event this information is protected by the Federal Confidentiality of Alcohol and Drug Abuse Patient Records regulations: The Federal rules restrict any use of the information to criminally investigate or prosecute any alcohol or drug abuse patient.[facility] HospitalIn the event this information is protected by the Federal Confidentiality of Alcohol and Drug Abuse Patient Records regulations: The Federal rules restrict any use of the information to criminally investigate or prosecute any alcohol or drug abuse patient.[facility] HospitalIn the event this information is protected by the Federal Confidentiality of Alcohol and Drug Abuse Patient Records regulations: The Federal rules restrict any use of the information to criminally investigate or prosecute any alcohol or drug abuse patient.[facility] HospitalIn the event this information is protected by the Federal Confidentiality of Alcohol and Drug Abuse Patient Records regulations: The Federal rules restrict any use of the information to criminally investigate or prosecute any alcohol or drug abuse patient.[facility] HospitalIn the event this information is protected by the Federal Confidentiality of Alcohol and Drug Abuse Patient Records regulations: The Federal rules restrict any use of the information to criminally investigate or prosecute any alcohol or drug abuse patient.[facility] HospitalIn the event this information is protected by the Federal Confidentiality of Alcohol and Drug Abuse Patient Records regulations: The Federal rules restrict any use of the information to criminally investigate or prosecute any alcohol or drug abuse patient.[facility] HospitalIn the event this information is protected by the Federal Confidentiality of Alcohol and Drug Abuse Patient Records regulations: The Federal rules restrict any use of the information to criminally investigate or prosecute any alcohol or drug abuse patient.[facility] HospitalIn the event this information is protected by the Federal Confidentiality of Alcohol and Drug Abuse Patient Records regulations: The Federal rules restrict any use of the information to criminally investigate or prosecute any alcohol or drug abuse patient.[facility] HospitalIn the event this information is protected by the Federal Confidentiality of Alcohol and Drug Abuse Patient Records regulations: The Federal rules restrict any use of the information to criminally investigate or prosecute any alcohol or drug abuse patient.[facility] HospitalIn the event this information is protected by the Federal Confidentiality of Alcohol and Drug Abuse Patient Records regulations: The Federal rules restrict any use of the information to criminally investigate or prosecute any alcohol or drug abuse patient.[facility] HospitalIn the event this information is protected by the Federal Confidentiality of Alcohol and Drug Abuse Patient Records regulations: The Federal rules restrict any use of the information to criminally investigate or prosecute any alcohol or drug abuse patient.[facility] HospitalIn the event this information is protected by the Federal Confidentiality of Alcohol and Drug Abuse Patient Records regulations: The Federal rules restrict any use of the information to criminally investigate or prosecute any alcohol or drug abuse patient.[facility] HospitalIn the event this information is protected by the Federal Confidentiality of Alcohol and Drug Abuse Patient Records regulations: The Federal rules restrict any use of the information to criminally investigate or prosecute any alcohol or drug abuse patient.[facility] HospitalIn the event this information is protected by the Federal Confidentiality of Alcohol and Drug Abuse Patient Records regulations: The Federal rules restrict any use of the information to criminally investigate or prosecute any alcohol or drug abuse patient.[facility] HospitalIn the event this information is protected by the Federal Confidentiality of Alcohol and Drug Abuse Patient Records regulations: The Federal rules restrict any use of the information to criminally investigate or prosecute any alcohol or drug abuse patient.[facility] HospitalIn the event this information is protected by the Federal Confidentiality of Alcohol and Drug Abuse Patient Records regulations: The Federal rules restrict any use of the information to criminally investigate or prosecute any alcohol or drug abuse patient.[facility] HospitalIn the event this information is protected by the Federal Confidentiality of Alcohol and Drug Abuse Patient Records regulations: The Federal rules restrict any use of the information to criminally investigate or prosecute any alcohol or drug abuse patient.[facility] HospitalIn the event this information is protected by the Federal Confidentiality of Alcohol and Drug Abuse Patient Records regulations: The Federal rules restrict any use of the information to criminally investigate or prosecute any alcohol or drug abuse patient.[facility] HospitalIn the event this information is protected by the Federal Confidentiality of Alcohol and Drug Abuse Patient Records regulations: The Federal rules restrict any use of the information to criminally investigate or prosecute any alcohol or drug abuse patient.[facility] HospitalIn the event this information is protected by the Federal Confidentiality of Alcohol and Drug Abuse Patient Records regulations: The Federal rules restrict any use of the information to criminally investigate or prosecute any alcohol or drug abuse patient.[facility] HospitalIn the event this information is protected by the Federal Confidentiality of Alcohol and Drug Abuse Patient Records regulations: The Federal rules restrict any use of the information to criminally investigate or prosecute any alcohol or drug abuse patient.[facility] HospitalIn the event this information is protected by the Federal Confidentiality of Alcohol and Drug Abuse Patient Records regulations: The Federal rules restrict any use of the information to criminally investigate or prosecute any alcohol or drug abuse patient.[facility] HospitalIn the event this information is protected by the Federal Confidentiality of Alcohol and Drug Abuse Patient Records regulations: The Federal rules restrict any use of the information to criminally investigate or prosecute any alcohol or drug abuse patient.[facility] HospitalIn the event this information is protected by the Federal Confidentiality of Alcohol and Drug Abuse Patient Records regulations: The Federal rules restrict any use of the information to criminally investigate or prosecute any alcohol or drug abuse patient.[facility] HospitalIn the event this information is protected by the Federal Confidentiality of Alcohol and Drug Abuse Patient Records regulations: The Federal rules restrict any use of the information to criminally investigate or prosecute any alcohol or drug abuse patient.[facility] HospitalIn the event this information is protected by the Federal Confidentiality of Alcohol and Drug Abuse Patient Records regulations: The Federal rules restrict any use of the information to criminally investigate or prosecute any alcohol or drug abuse patient.[facility] HospitalIn the event this information is protected by the Federal Confidentiality of Alcohol and Drug Abuse Patient Records regulations: The Federal rules restrict any use of the information to criminally investigate or prosecute any alcohol or drug abuse patient.[facility] HospitalIn the event this information is protected by the Federal Confidentiality of Alcohol and Drug Abuse Patient Records regulations: The Federal rules restrict any use of the information to criminally investigate or prosecute any alcohol or drug abuse patient.[facility] HospitalIn the event this information is protected by the Federal Confidentiality of Alcohol and Drug Abuse Patient Records regulations: The Federal rules restrict any use of the information to criminally investigate or prosecute any alcohol or drug abuse patient.[facility] HospitalIn the event this information is protected by the Federal Confidentiality of Alcohol and Drug Abuse Patient Records regulations: The Federal rules restrict any use of the information to criminally investigate or prosecute any alcohol or drug abuse patient.[facility] HospitalIn the event this information is protected by the Federal Confidentiality of Alcohol and Drug Abuse Patient Records regulations: The Federal rules restrict any use of the information to criminally investigate or prosecute any alcohol or drug abuse patient.[facility] HospitalIn the event this information is protected by the Federal Confidentiality of Alcohol and Drug Abuse Patient Records regulations: The Federal rules restrict any use of the information to criminally investigate or prosecute any alcohol or drug abuse patient.[facility] HospitalIn the event this information is protected by the Federal Confidentiality of Alcohol and Drug Abuse Patient Records regulations: The Federal rules restrict any use of the information to criminally investigate or prosecute any alcohol or drug abuse patient.[facility] HospitalIn the event this information is protected by the Federal Confidentiality of Alcohol and Drug Abuse Patient Records regulations: The Federal rules restrict any use of the information to criminally investigate or prosecute any alcohol or drug abuse patient.[facility] HospitalIn the event this information is protected by the Federal Confidentiality of Alcohol and Drug Abuse Patient Records regulations: The Federal rules restrict any use of the information to criminally investigate or prosecute any alcohol or drug abuse patient.[facility] HospitalIn the event this information is protected by the Federal Confidentiality of Alcohol and Drug Abuse Patient Records regulations: The Federal rules restrict any use of the information to criminally investigate or prosecute any alcohol or drug abuse patient.[facility] HospitalIn the event this information is protected by the Federal Confidentiality of Alcohol and Drug Abuse Patient Records regulations: The Federal rules restrict any use of the information to criminally investigate or prosecute any alcohol or drug abuse patient.[facility] HospitalIn the event this information is protected by the Federal Confidentiality of Alcohol and Drug Abuse Patient Records regulations: The Federal rules restrict any use of the information to criminally investigate or prosecute any alcohol or drug abuse patient.[facility] HospitalIn the event this information is protected by the Federal Confidentiality of Alcohol and Drug Abuse Patient Records regulations: The Federal rules restrict any use of the information to criminally investigate or prosecute any alcohol or drug abuse patient.[facility] HospitalIn the event this information is protected by the Federal Confidentiality of Alcohol and Drug Abuse Patient Records regulations: The Federal rules restrict any use of the information to criminally investigate or prosecute any alcohol or drug abuse patient.[facility] HospitalIn the event this information is protected by the Federal Confidentiality of Alcohol and Drug Abuse Patient Records regulations: The Federal rules restrict any use of the information to criminally investigate or prosecute any alcohol or drug abuse patient.[facility] HospitalIn the event this information is protected by the Federal Confidentiality of Alcohol and Drug Abuse Patient Records regulations: The Federal rules restrict any use of the information to criminally investigate or prosecute any alcohol or drug abuse patient.[facility] HospitalIn the event this information is protected by the Federal Confidentiality of Alcohol and Drug Abuse Patient Records regulations: The Federal rules restrict any use of the information to criminally investigate or prosecute any alcohol or drug abuse patient.[facility] HospitalIn the event this information is protected by the Federal Confidentiality of Alcohol and Drug Abuse Patient Records regulations: The Federal rules restrict any use of the information to criminally investigate or prosecute any alcohol or drug abuse patient.[facility] HospitalIn the event this information is protected by the Federal Confidentiality of Alcohol and Drug Abuse Patient Records regulations: The Federal rules restrict any use of the information to criminally investigate or prosecute any alcohol or drug abuse patient.[facility] HospitalIn the event this information is protected by the Federal Confidentiality of Alcohol and Drug Abuse Patient Records regulations: The Federal rules restrict any use of the information to criminally investigate or prosecute any alcohol or drug abuse patient.[facility] HospitalIn the event this information is protected by the Federal Confidentiality of Alcohol and Drug Abuse Patient Records regulations: The Federal rules restrict any use of the information to criminally investigate or prosecute any alcohol or drug abuse patient.[facility] HospitalIn the event this information is protected by the Federal Confidentiality of Alcohol and Drug Abuse Patient Records regulations: The Federal rules restrict any use of the information to criminally investigate or prosecute any alcohol or drug abuse patient.[facility] HospitalIn the event this information is protected by the Federal Confidentiality of Alcohol and Drug Abuse Patient Records regulations: The Federal rules restrict any use of the information to criminally investigate or prosecute any alcohol or drug abuse patient.[facility] HospitalIn the event this information is protected by the Federal Confidentiality of Alcohol and Drug Abuse Patient Records regulations: The Federal rules restrict any use of the information to criminally investigate or prosecute any alcohol or drug abuse patient.[facility] HospitalIn the event this information is protected by the Federal Confidentiality of Alcohol and Drug Abuse Patient Records regulations: The Federal rules restrict any use of the information to criminally investigate or prosecute any alcohol or drug abuse patient.[facility] HospitalIn the event this information is protected by the Federal Confidentiality of Alcohol and Drug Abuse Patient Records regulations: The Federal rules restrict any use of the information to criminally investigate or prosecute any alcohol or drug abuse patient.[facility] HospitalIn the event this information is protected by the Federal Confidentiality of Alcohol and Drug Abuse Patient Records regulations: The Federal rules restrict any use of the information to criminally investigate or prosecute any alcohol or drug abuse patient.[facility] HospitalIn the event this information is protected by the Federal Confidentiality of Alcohol and Drug Abuse Patient Records regulations: The Federal rules restrict any use of the information to criminally investigate or prosecute any alcohol or drug abuse patient.[facility] HospitalIn the event this information is protected by the Federal Confidentiality of Alcohol and Drug Abuse Patient Records regulations: The Federal rules restrict any use of the information to criminally investigate or prosecute any alcohol or drug abuse patient.[facility] HospitalIn the event this information is protected by the Federal Confidentiality of Alcohol and Drug Abuse Patient Records regulations: The Federal rules restrict any use of the information to criminally investigate or prosecute any alcohol or drug abuse patient.[facility] HospitalIn the event this information is protected by the Federal Confidentiality of Alcohol and Drug Abuse Patient Records regulations: The Federal rules restrict any use of the information to criminally investigate or prosecute any alcohol or drug abuse patient.[facility] HospitalIn the event this information is protected by the Federal Confidentiality of Alcohol and Drug Abuse Patient Records regulations: The Federal rules restrict any use of the information to criminally investigate or prosecute any alcohol or drug abuse patient.[facility] HospitalIn the event this information is protected by the Federal Confidentiality of Alcohol and Drug Abuse Patient Records regulations: The Federal rules restrict any use of the information to criminally investigate or prosecute any alcohol or drug abuse patient.[facility] HospitalIn the event this information is protected by the Federal Confidentiality of Alcohol and Drug Abuse Patient Records regulations: The Federal rules restrict any use of the information to criminally investigate or prosecute any alcohol or drug abuse patient.[facility] HospitalIn the event this information is protected by the Federal Confidentiality of Alcohol and Drug Abuse Patient Records regulations: The Federal rules restrict any use of the information to criminally investigate or prosecute any alcohol or drug abuse patient.[facility] HospitalIn the event this information is protected by the Federal Confidentiality of Alcohol and Drug Abuse Patient Records regulations: The Federal rules restrict any use of the information to criminally investigate or prosecute any alcohol or drug abuse patient.[facility] HospitalIn the event this information is protected by the Federal Confidentiality of Alcohol and Drug Abuse Patient Records regulations: The Federal rules restrict any use of the information to criminally investigate or prosecute any alcohol or drug abuse patient.[facility] HospitalIn the event this information is protected by the Federal Confidentiality of Alcohol and Drug Abuse Patient Records regulations: The Federal rules restrict any use of the information to criminally investigate or prosecute any alcohol or drug abuse patient.[facility] HospitalIn the event this information is protected by the Federal Confidentiality of Alcohol and Drug Abuse Patient Records regulations: The Federal rules restrict any use of the information to criminally investigate or prosecute any alcohol or drug abuse patient.[facility] HospitalIn the event this information is protected by the Federal Confidentiality of Alcohol and Drug Abuse Patient Records regulations: The Federal rules restrict any use of the information to criminally investigate or prosecute any alcohol or drug abuse patient.[facility] HospitalIn the event this information is protected by the Federal Confidentiality of Alcohol and Drug Abuse Patient Records regulations: The Federal rules restrict any use of the information to criminally investigate or prosecute any alcohol or drug abuse patient.[facility] HospitalIn the event this information is protected by the Federal Confidentiality of Alcohol and Drug Abuse Patient Records regulations: The Federal rules restrict any use of the information to criminally investigate or prosecute any alcohol or drug abuse patient.[facility] HospitalIn the event this information is protected by the Federal Confidentiality of Alcohol and Drug Abuse Patient Records regulations: The Federal rules restrict any use of the information to criminally investigate or prosecute any alcohol or drug abuse patient.[facility]In the event this information is protected by the Federal Confidentiality of Alcohol and Drug Abuse Patient Records regulations: The Federal rules restrict any use of the information to criminally investigate or prosecute any alcohol or drug abuse patient.[facility] HospitalIn the event this information is protected by the Federal Confidentiality of Alcohol and Drug Abuse Patient Records regulations: The Federal rules restrict any use of the information to criminally investigate or prosecute any alcohol or drug abuse patient.[facility] HospitalIn the event this information is protected by the Federal Confidentiality of Alcohol and Drug Abuse Patient Records regulations: The Federal rules restrict any use of the information to criminally investigate or prosecute any alcohol or drug abuse patient.[facility] HospitalIn the event this information is protected by the Federal Confidentiality of Alcohol and Drug Abuse Patient Records regulations: The Federal rules restrict any use of the information to criminally investigate or prosecute any alcohol or drug abuse patient.[facility] HospitalIn the event this information is protected by the Federal Confidentiality of Alcohol and Drug Abuse Patient Records regulations: The Federal rules restrict any use of the information to criminally investigate or prosecute any alcohol or drug abuse patient.[facility] HospitalIn the event this information is protected by the Federal Confidentiality of Alcohol and Drug Abuse Patient Records regulations: The Federal rules restrict any use of the information to criminally investigate or prosecute any alcohol or drug abuse patient.[facility] HospitalIn the event this information is protected by the Federal Confidentiality of Alcohol and Drug Abuse Patient Records regulations: The Federal rules restrict any use of the information to criminally investigate or prosecute any alcohol or drug abuse patient.[facility] HospitalIn the event this information is protected by the Federal Confidentiality of Alcohol and Drug Abuse Patient Records regulations: The Federal rules restrict any use of the information to criminally investigate or prosecute any alcohol or drug abuse patient.[facility] HospitalIn the event this information is protected by the Federal Confidentiality of Alcohol and Drug Abuse Patient Records regulations: The Federal rules restrict any use of the information to criminally investigate or prosecute any alcohol or drug abuse patient.[facility] HospitalIn the event this information is protected by the Federal Confidentiality of Alcohol and Drug Abuse Patient Records regulations: The Federal rules restrict any use of the information to criminally investigate or prosecute any alcohol or drug abuse patient.[facility] HospitalIn the event this information is protected by the Federal Confidentiality of Alcohol and Drug Abuse Patient Records regulations: The Federal rules restrict any use of the information to criminally investigate or prosecute any alcohol or drug abuse patient.[facility] HospitalIn the event this information is protected by the Federal Confidentiality of Alcohol and Drug Abuse Patient Records regulations: The Federal rules restrict any use of the information to criminally investigate or prosecute any alcohol or drug abuse patient.[facility] HospitalIn the event this information is protected by the Federal Confidentiality of Alcohol and Drug Abuse Patient Records regulations: The Federal rules restrict any use of the information to criminally investigate or prosecute any alcohol or drug abuse patient.[facility] HospitalIn the event this information is protected by the Federal Confidentiality of Alcohol and Drug Abuse Patient Records regulations: The Federal rules restrict any use of the information to criminally investigate or prosecute any alcohol or drug abuse patient.[facility] HospitalIn the event this information is protected by the Federal Confidentiality of Alcohol and Drug Abuse Patient Records regulations: The Federal rules restrict any use of the information to criminally investigate or prosecute any alcohol or drug abuse patient.[facility] HospitalIn the event this information is protected by the Federal Confidentiality of Alcohol and Drug Abuse Patient Records regulations: The Federal rules restrict any use of the information to criminally investigate or prosecute any alcohol or drug abuse patient.[facility] HospitalIn the event this information is protected by the Federal Confidentiality of Alcohol and Drug Abuse Patient Records regulations: The Federal rules restrict any use of the information to criminally investigate or prosecute any alcohol or drug abuse patient.[facility] HospitalIn the event this information is protected by the Federal Confidentiality of Alcohol and Drug Abuse Patient Records regulations: The Federal rules restrict any use of the information to criminally investigate or prosecute any alcohol or drug abuse patient.[facility] HospitalIn the event this information is protected by the Federal Confidentiality of Alcohol and Drug Abuse Patient Records regulations: The Federal rules restrict any use of the information to criminally investigate or prosecute any alcohol or drug abuse patient.[facility] HospitalIn the event this information is protected by the Federal Confidentiality of Alcohol and Drug Abuse Patient Records regulations: The Federal rules restrict any use of the information to criminally investigate or prosecute any alcohol or drug abuse patient.[facility] HospitalIn the event this information is protected by the Federal Confidentiality of Alcohol and Drug Abuse Patient Records regulations: The Federal rules restrict any use of the information to criminally investigate or prosecute any alcohol or drug abuse patient.[facility] HospitalIn the event this information is protected by the Federal Confidentiality of Alcohol and Drug Abuse Patient Records regulations: The Federal rules restrict any use of the information to criminally investigate or prosecute any alcohol or drug abuse patient.[facility] HospitalIn the event this information is protected by the Federal Confidentiality of Alcohol and Drug Abuse Patient Records regulations: The Federal rules restrict any use of the information to criminally investigate or prosecute any alcohol or drug abuse patient.[facility] HospitalIn the event this information is protected by the Federal Confidentiality of Alcohol and Drug Abuse Patient Records regulations: The Federal rules restrict any use of the information to criminally investigate or prosecute any alcohol or drug abuse patient.[facility] HospitalIn the event this information is protected by the Federal Confidentiality of Alcohol and Drug Abuse Patient Records regulations: The Federal rules restrict any use of the information to criminally investigate or prosecute any alcohol or drug abuse patient.[facility] HospitalIn the event this information is protected by the Federal Confidentiality of Alcohol and Drug Abuse Patient Records regulations: The Federal rules restrict any use of the information to criminally investigate or prosecute any alcohol or drug abuse patient.[facility] HospitalIn the event this information is protected by the Federal Confidentiality of Alcohol and Drug Abuse Patient Records regulations: The Federal rules restrict any use of the information to criminally investigate or prosecute any alcohol or drug abuse patient.[facility] HospitalIn the event this information is protected by the Federal Confidentiality of Alcohol and Drug Abuse Patient Records regulations: The Federal rules restrict any use of the information to criminally investigate or prosecute any alcohol or drug abuse patient.[facility] HospitalIn the event this information is protected by the Federal Confidentiality of Alcohol and Drug Abuse Patient Records regulations: The Federal rules restrict any use of the information to criminally investigate or prosecute any alcohol or drug abuse patient.[facility] HospitalIn the event this information is protected by the Federal Confidentiality of Alcohol and Drug Abuse Patient Records regulations: The Federal rules restrict any use of the information to criminally investigate or prosecute any alcohol or drug abuse patient.[facility] HospitalIn the event this information is protected by the Federal Confidentiality of Alcohol and Drug Abuse Patient Records regulations: The Federal rules restrict any use of the information to criminally investigate or prosecute any alcohol or drug abuse patient.[facility] HospitalIn the event this information is protected by the Federal Confidentiality of Alcohol and Drug Abuse Patient Records regulations: The Federal rules restrict any use of the information to criminally investigate or prosecute any alcohol or drug abuse patient.[facility] HospitalIn the event this information is protected by the Federal Confidentiality of Alcohol and Drug Abuse Patient Records regulations: The Federal rules restrict any use of the information to criminally investigate or prosecute any alcohol or drug abuse patient.[facility] HospitalIn the event this information is protected by the Federal Confidentiality of Alcohol and Drug Abuse Patient Records regulations: The Federal rules restrict any use of the information to criminally investigate or prosecute any alcohol or drug abuse patient.[facility] HospitalIn the event this information is protected by the Federal Confidentiality of Alcohol and Drug Abuse Patient Records regulations: The Federal rules restrict any use of the information to criminally investigate or prosecute any alcohol or drug abuse patient.[facility] HospitalIn the event this information is protected by the Federal Confidentiality of Alcohol and Drug Abuse Patient Records regulations: The Federal rules restrict any use of the information to criminally investigate or prosecute any alcohol or drug abuse patient.[facility] HospitalIn the event this information is protected by the Federal Confidentiality of Alcohol and Drug Abuse Patient Records regulations: The Federal rules restrict any use of the information to criminally investigate or prosecute any alcohol or drug abuse patient.[facility] HospitalIn the event this information is protected by the Federal Confidentiality of Alcohol and Drug Abuse Patient Records regulations: The Federal rules restrict any use of the information to criminally investigate or prosecute any alcohol or drug abuse patient.[facility] HospitalIn the event this information is protected by the Federal Confidentiality of Alcohol and Drug Abuse Patient Records regulations: The Federal rules restrict any use of the information to criminally investigate or prosecute any alcohol or drug abuse patient.[facility] HospitalIn the event this information is protected by the Federal Confidentiality of Alcohol and Drug Abuse Patient Records regulations: The Federal rules restrict any use of the information to criminally investigate or prosecute any alcohol or drug abuse patient.[facility] HospitalIn the event this information is protected by the Federal Confidentiality of Alcohol and Drug Abuse Patient Records regulations: The Federal rules restrict any use of the information to criminally investigate or prosecute any alcohol or drug abuse patient.[facility] HospitalIn the event this information is protected by the Federal Confidentiality of Alcohol and Drug Abuse Patient Records regulations: The Federal rules restrict any use of the information to criminally investigate or prosecute any alcohol or drug abuse patient.[facility] HospitalIn the event this information is protected by the Federal Confidentiality of Alcohol and Drug Abuse Patient Records regulations: The Federal rules restrict any use of the information to criminally investigate or prosecute any alcohol or drug abuse patient.[facility] HospitalIn the event this information is protected by the Federal Confidentiality of Alcohol and Drug Abuse Patient Records regulations: The Federal rules restrict any use of the information to criminally investigate or prosecute any alcohol or drug abuse patient.[facility] HospitalIn the event this information is protected by the Federal Confidentiality of Alcohol and Drug Abuse Patient Records regulations: The Federal rules restrict any use of the information to criminally investigate or prosecute any alcohol or drug abuse patient.[facility] HospitalIn the event this information is protected by the Federal Confidentiality of Alcohol and Drug Abuse Patient Records regulations: The Federal rules restrict any use of the information to criminally investigate or prosecute any alcohol or drug abuse patient.[facility] HospitalIn the event this information is protected by the Federal Confidentiality of Alcohol and Drug Abuse Patient Records regulations: The Federal rules restrict any use of the information to criminally investigate or prosecute any alcohol or drug abuse patient.[facility] HospitalIn the event this information is protected by the Federal Confidentiality of Alcohol and Drug Abuse Patient Records regulations: The Federal rules restrict any use of the information to criminally investigate or prosecute any alcohol or drug abuse patient.[facility] HospitalIn the event this information is protected by the Federal Confidentiality of Alcohol and Drug Abuse Patient Records regulations: The Federal rules restrict any use of the information to criminally investigate or prosecute any alcohol or drug abuse patient.[facility] HospitalIn the event this information is protected by the Federal Confidentiality of Alcohol and Drug Abuse Patient Records regulations: The Federal rules restrict any use of the information to criminally investigate or prosecute any alcohol or drug abuse patient.[facility] HospitalIn the event this information is protected by the Federal Confidentiality of Alcohol and Drug Abuse Patient Records regulations: The Federal rules restrict any use of the information to criminally investigate or prosecute any alcohol or drug abuse patient.[facility] HospitalIn the event this information is protected by the Federal Confidentiality of Alcohol and Drug Abuse Patient Records regulations: The Federal rules restrict any use of the information to criminally investigate or prosecute any alcohol or drug abuse patient.[facility] HospitalIn the event this information is protected by the Federal Confidentiality of Alcohol and Drug Abuse Patient Records regulations: The Federal rules restrict any use of the information to criminally investigate or prosecute any alcohol or drug abuse patient.[facility] HospitalIn the event this information is protected by the Federal Confidentiality of Alcohol and Drug Abuse Patient Records regulations: The Federal rules restrict any use of the information to criminally investigate or prosecute any alcohol or drug abuse patient.[facility] HospitalIn the event this information is protected by the Federal Confidentiality of Alcohol and Drug Abuse Patient Records regulations: The Federal rules restrict any use of the information to criminally investigate or prosecute any alcohol or drug abuse patient.[facility] HospitalIn the event this information is protected by the Federal Confidentiality of Alcohol and Drug Abuse Patient Records regulations: The Federal rules restrict any use of the information to criminally investigate or prosecute any alcohol or drug abuse patient.[facility] HospitalIn the event this information is protected by the Federal Confidentiality of Alcohol and Drug Abuse Patient Records regulations: The Federal rules restrict any use of the information to criminally investigate or prosecute any alcohol or drug abuse patient.[facility] HospitalIn the event this information is protected by the Federal Confidentiality of Alcohol and Drug Abuse Patient Records regulations: The Federal rules restrict any use of the information to criminally investigate or prosecute any alcohol or drug abuse patient.[facility] HospitalIn the event this information is protected by the Federal Confidentiality of Alcohol and Drug Abuse Patient Records regulations: The Federal rules restrict any use of the information to criminally investigate or prosecute any alcohol or drug abuse patient.[facility] HospitalIn the event this information is protected by the Federal Confidentiality of Alcohol and Drug Abuse Patient Records regulations: The Federal rules restrict any use of the information to criminally investigate or prosecute any alcohol or drug abuse patient.[facility] HospitalIn the event this information is protected by the Federal Confidentiality of Alcohol and Drug Abuse Patient Records regulations: The Federal rules restrict any use of the information to criminally investigate or prosecute any alcohol or drug abuse patient.[facility] HospitalIn the event this information is protected by the Federal Confidentiality of Alcohol and Drug Abuse Patient Records regulations: The Federal rules restrict any use of the information to criminally investigate or prosecute any alcohol or drug abuse patient.[facility] HospitalIn the event this information is protected by the Federal Confidentiality of Alcohol and Drug Abuse Patient Records regulations: The Federal rules restrict any use of the information to criminally investigate or prosecute any alcohol or drug abuse patient.[facility] HospitalIn the event this information is protected by the Federal Confidentiality of Alcohol and Drug Abuse Patient Records regulations: The Federal rules restrict any use of the information to criminally investigate or prosecute any alcohol or drug abuse patient.[facility] HospitalIn the event this information is protected by the Federal Confidentiality of Alcohol and Drug Abuse Patient Records regulations: The Federal rules restrict any use of the information to criminally investigate or prosecute any alcohol or drug abuse patient.[facility] HospitalIn the event this information is protected by the Federal Confidentiality of Alcohol and Drug Abuse Patient Records regulations: The Federal rules restrict any use of the information to criminally investigate or prosecute any alcohol or drug abuse patient.[facility] HospitalIn the event this information is protected by the Federal Confidentiality of Alcohol and Drug Abuse Patient Records regulations: The Federal rules restrict any use of the information to criminally investigate or prosecute any alcohol or drug abuse patient.[facility] HospitalIn the event this information is protected by the Federal Confidentiality of Alcohol and Drug Abuse Patient Records regulations: The Federal rules restrict any use of the information to criminally investigate or prosecute any alcohol or drug abuse patient.[facility] HospitalIn the event this information is protected by the Federal Confidentiality of Alcohol and Drug Abuse Patient Records regulations: The Federal rules restrict any use of the information to criminally investigate or prosecute any alcohol or drug abuse patient.[facility] HospitalIn the event this information is protected by the Federal Confidentiality of Alcohol and Drug Abuse Patient Records regulations: The Federal rules restrict any use of the information to criminally investigate or prosecute any alcohol or drug abuse patient.[facility] HospitalIn the event this information is protected by the Federal Confidentiality of Alcohol and Drug Abuse Patient Records regulations: The Federal rules restrict any use of the information to criminally investigate or prosecute any alcohol or drug abuse patient.[facility] HospitalIn the event this information is protected by the Federal Confidentiality of Alcohol and Drug Abuse Patient Records regulations: The Federal rules restrict any use of the information to criminally investigate or prosecute any alcohol or drug abuse patient.[facility] HospitalIn the event this information is protected by the Federal Confidentiality of Alcohol and Drug Abuse Patient Records regulations: The Federal rules restrict any use of the information to criminally investigate or prosecute any alcohol or drug abuse patient.[facility] HospitalIn the event this information is protected by the Federal Confidentiality of Alcohol and Drug Abuse Patient Records regulations: The Federal rules restrict any use of the information to criminally investigate or prosecute any alcohol or drug abuse patient.[facility] HospitalIn the event this information is protected by the Federal Confidentiality of Alcohol and Drug Abuse Patient Records regulations: The Federal rules restrict any use of the information to criminally investigate or prosecute any alcohol or drug abuse patient.[facility] HospitalIn the event this information is protected by the Federal Confidentiality of Alcohol and Drug Abuse Patient Records regulations: The Federal rules restrict any use of the information to criminally investigate or prosecute any alcohol or drug abuse patient.[facility] HospitalIn the event this information is protected by the Federal Confidentiality of Alcohol and Drug Abuse Patient Records regulations: The Federal rules restrict any use of the information to criminally investigate or prosecute any alcohol or drug abuse patient.[facility] HospitalIn the event this information is protected by the Federal Confidentiality of Alcohol and Drug Abuse Patient Records regulations: The Federal rules restrict any use of the information to criminally investigate or prosecute any alcohol or drug abuse patient.[facility] HospitalIn the event this information is protected by the Federal Confidentiality of Alcohol and Drug Abuse Patient Records regulations: The Federal rules restrict any use of the information to criminally investigate or prosecute any alcohol or drug abuse patient.[facility] HospitalIn the event this information is protected by the Federal Confidentiality of Alcohol and Drug Abuse Patient Records regulations: The Federal rules restrict any use of the information to criminally investigate or prosecute any alcohol or drug abuse patient.[facility] HospitalIn the event this information is protected by the Federal Confidentiality of Alcohol and Drug Abuse Patient Records regulations: The Federal rules restrict any use of the information to criminally investigate or prosecute any alcohol or drug abuse patient.[facility] HospitalIn the event this information is protected by the Federal Confidentiality of Alcohol and Drug Abuse Patient Records regulations: The Federal rules restrict any use of the information to criminally investigate or prosecute any alcohol or drug abuse patient.[facility] HospitalIn the event this information is protected by the Federal Confidentiality of Alcohol and Drug Abuse Patient Records regulations: The Federal rules restrict any use of the information to criminally investigate or prosecute any alcohol or drug abuse patient.[facility] HospitalIn the event this information is protected by the Federal Confidentiality of Alcohol and Drug Abuse Patient Records regulations: The Federal rules restrict any use of the information to criminally investigate or prosecute any alcohol or drug abuse patient.[facility] HospitalIn the event this information is protected by the Federal Confidentiality of Alcohol and Drug Abuse Patient Records regulations: The Federal rules restrict any use of the information to criminally investigate or prosecute any alcohol or drug abuse patient.[facility] HospitalIn the event this information is protected by the Federal Confidentiality of Alcohol and Drug Abuse Patient Records regulations: The Federal rules restrict any use of the information to criminally investigate or prosecute any alcohol or drug abuse patient.[facility] HospitalIn the event this information is protected by the Federal Confidentiality of Alcohol and Drug Abuse Patient Records regulations: The Federal rules restrict any use of the information to criminally investigate or prosecute any alcohol or drug abuse patient.[facility] HospitalIn the event this information is protected by the Federal Confidentiality of Alcohol and Drug Abuse Patient Records regulations: The Federal rules restrict any use of the information to criminally investigate or prosecute any alcohol or drug abuse patient.[facility] HospitalIn the event this information is protected by the Federal Confidentiality of Alcohol and Drug Abuse Patient Records regulations: The Federal rules restrict any use of the information to criminally investigate or prosecute any alcohol or drug abuse patient.[facility] HospitalIn the event this information is protected by the Federal Confidentiality of Alcohol and Drug Abuse Patient Records regulations: The Federal rules restrict any use of the information to criminally investigate or prosecute any alcohol or drug abuse patient.[facility] HospitalIn the event this information is protected by the Federal Confidentiality of Alcohol and Drug Abuse Patient Records regulations: The Federal rules restrict any use of the information to criminally investigate or prosecute any alcohol or drug abuse patient.[facility] HospitalIn the event this information is protected by the Federal Confidentiality of Alcohol and Drug Abuse Patient Records regulations: The Federal rules restrict any use of the information to criminally investigate or prosecute any alcohol or drug abuse patient.[facility] HospitalIn the event this information is protected by the Federal Confidentiality of Alcohol and Drug Abuse Patient Records regulations: The Federal rules restrict any use of the information to criminally investigate or prosecute any alcohol or drug abuse patient.[facility] HospitalIn the event this information is protected by the Federal Confidentiality of Alcohol and Drug Abuse Patient Records regulations: The Federal rules restrict any use of the information to criminally investigate or prosecute any alcohol or drug abuse patient.[facility] HospitalIn the event this information is protected by the Federal Confidentiality of Alcohol and Drug Abuse Patient Records regulations: The Federal rules restrict any use of the information to criminally investigate or prosecute any alcohol or drug abuse patient.[facility] HospitalIn the event this information is protected by the Federal Confidentiality of Alcohol and Drug Abuse Patient Records regulations: The Federal rules restrict any use of the information to criminally investigate or prosecute any alcohol or drug abuse patient.[facility] HospitalIn the event this information is protected by the Federal Confidentiality of Alcohol and Drug Abuse Patient Records regulations: The Federal rules restrict any use of the information to criminally investigate or prosecute any alcohol or drug abuse patient.[facility] HospitalIn the event this information is protected by the Federal Confidentiality of Alcohol and Drug Abuse Patient Records regulations: The Federal rules restrict any use of the information to criminally investigate or prosecute any alcohol or drug abuse patient.[facility] Reason for Visit (unrecogniz ed section and content) Reason Comments Diarrhea Reason Onset Date Comments Refill Request 11/19/2021 Reason Comments Results Patient Update Reason Comments Refill Request Reason Onset Date Comments Refill Request 01/07/2022 Reason Comments Patient Question Reason Comments Medication Request Reason Comments Patient Update Reason Comments Falls Falling at night get ting out of bed, has fallen 3-4 times this past week Reason Comments ED Follow-up elevated bld sugar o virgil 600 and this am over 400 Reason Onset Date Comments Refill Request 09/21/2022 Reason Comments High Blood Sugar Reason Comments Information Reason Comments blood sugars climbing again Reason Comments blood sugar issue Reason Onset Date Comments Refill Request 11/10/2022 Reason Comments Recheck Medication follow up Reason Onset Date Comments Refill Request 12/16/2022 Reason Comments Recheck DM follow up Reason Onset Date Comments Refill Request 01/31/2023 Reason Comments Results Reason Comments Follow Up 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, 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, 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 from fall 2 weeks ago seen in ER gave vicodin wants more Reason Comments Hypertension Reason Onset Date Comments Refill Request 03/29/2023 Reason Comments Follow Up 2 week follow up-lab s and rib pain Reason Onset Date Comments Refill Request 04/25/2023 Reason Onset Date Comments Refill Request 05/23/2023 Reason Onset Date Comments Refill Request 06/23/2023 Reason Comments Recheck 6 week follow up Reason Comments New Patient Specialty Diagnoses / Procedures Referred By Bobby verma Referred To Contact Hematology Diagnoses CKD (chronic kidney disease), stage IV (HCC) Anemia, unspecified type Procedures CONSULT TO HEMATOLOGY OFFICE/OUTPATIENT NEW HIGH MDM 60-74 MINUTES Toya Smith PA-C [address] [place] [address] Referral ID Status Reason Start Date Expiration Date V isits Requested Visits Authorized [id number] Closed PCP Requested Referral 05/02/2023 05/01/2024 1 1 Reason Onset Date Comments Refill Request 07/14/2023 Reason Comments Results Reason Onset Date Comments Refill Request Refill Request 09/08/2023 Reason Comments for last couple weeks not sleeping at al l Says does not know what it is Reason Comments Medication Problem Increase trazodone Reason Onset Date Comments Refill Request 10/05/2023 Reason Comments Back Pain Reason Comments Consult CKD Stage 4 Reason Onset Date Comments Refill Request 12/01/2023 Reason Onset Date Comments Refill Request 12/28/2023 Reason Comments Hospital F/U Reason Onset Date Comments Refill Request 01/04/2024 Reason Onset Date Comments Refill Request 01/24/2024 Reason Comments Medicare Wellness Exam Annual Medicare Reason Comments Appointment Reason Comments Radiology US Specialty Diagnoses / Procedures Referred By Contac t Referred To Contact US IMAGING Diagnoses Screening for abdominal aortic aneurysm Procedures US SCREENING FOR AAA US ABDOMINAL AORTA REAL TIME SCREEN STUDY AAA Rc, Taco, RUNNING SPECIALIST.HELIARC WELDER [address] [place] [address] [place] [address] Referral ID Status Reason Start Date Expiration Date V isits Requested Visits Authorized [id number] Closed Auto-Generate d Referral 02/07/2024 03/08/2025 1 1 Reason Comments Appointment Hematology Appt. Reason Comments Chronic Kidney Disease Stage 4 Reason Comments Follow Up Reason Onset Date Comments Refill Request 02/27/2024 Reason Comments Established Patient Specialty Diagnoses / Procedures Referred By Contac t Referred To Contact Diagnoses Anemia of renal disease Other iron deficiency anemia Procedures CONSULT TO HEMATOLOGY/ONCOLOGY OFFICE/OUTPATIENT NEW HIGH MDM 60 MINUTES Janice Hodges, RUNNING SPECIALIST.HELIARC WELDER [address] [place] [address] Referral ID Status Reason Start Date Expiration Date V isits Requested Visits Authorized [id number] Closed PCP Requested Referral 03/01/2024 02/22/2025 1 1 Reason Comments Appointment EGD/colonoscopy resc hedule Reason Comments ER F/U [facility] ER 03/29/24 from a fall with injury to left hand but no fracture Reason Onset Date Comments Refill Request 04/18/2024 Reason Onset Date Comments Refill Request 04/25/2024 Reason Onset Date Comments Same Day Appointment elevated bl ood sugars Immunizations 04/30/2024 Flu vaccination Reason Comments Recheck Reason Onset Date Comments Refill Request 05/17/2024 Reason Comments Established Patient CKD Reason Comments Orders Appointment Reason Onset Date Comments CKD education needs scheduled 05/29/2024 Reason Onset Date Comments CKD education needed 05/31/2024 Reason Onset Date Comments CKD education need scheduled 06/10/2024 Reason Onset Date Comments Refill Request 06/13/2024 Reason Comments Consult Anemia and abnormal weight loss. Specialty Diagnoses / Procedures Referred By Contac t Referred To Contact General Surgery Diagnoses Anemia, unspecified type Abnormal weight loss Procedures CONSULT TO GENERAL SURGERY OFFICE/OUTPATIENT NEW HIGH MDM 60 MINUTES Nini Freire DO [address] [place] [address] Referral ID Status Reason Start Date Expiration Date V isits Requested Visits Authorized [id number] Closed PCP Requested Referral 03/08/2024 03/08/2025 1 1 Reason Onset Date Comments Unable to contact letter mailed 06/13/2024 Reason Comments Established Patient Reason Comments skin concern Reason Onset Date Comments patient has painful scabs on buttocks. Reason Onset Date Comments Refill Request 06/18/2024 Specialty Diagnoses / Procedures Referred By Contac t Referred To Contact Diagnoses Anemia associated with stage 4 chronic renal failure (HCC) (HCC) Nini Freire, DO [address] [place] [address] [facility] [address] [place] [address] Referral ID Status Reason Start Date Expiration Date V isits Requested Visits Authorized [id number] Authorized 06/17/2024 09/15/2024 99 99 Reason Comments Non-Chemotherapy Treatment Specialty Diagnoses / Procedures Referred By Contac t Referred To Contact Diagnoses Anemia associated with stage 4 chronic renal failure (HCC) (HCC) Nini Freire, DO [address] [place] [address] [facility] [address] [place] [address] Reason Comments No Show Specialty Diagnoses / Procedures Referred By Contac t Referred To Contact Endocrinology Diagnoses Type 2 diabetes mellitus with stage 3b chronic kidney disease, with long-term current use of insulin (HCC) Procedures CONSULT TO ENDOCRINOLOGY OFFICE/OUTPATIENT [facility] 60 MINUTES Vera Manrique MD [address] [place] [address] Referral ID Status Reason Start Date Expiration Date V isits Requested Visits Authorized [id number] Closed PCP Requested Referral 05/09/2024 05/09/2025 1 1 Reason Comments social work services (1st time treatment report) Reason Onset Date Comments Refill Request 07/09/2024 Reason Onset Date Comments Refill Request 07/10/2024 Reason Comments Musculoskeletal Problem Reason Onset Date Comments Refill Request 08/06/2024 Reason Onset Date Comments Refill Request 09/03/2024 Reason Onset Date Comments Refill Request 09/04/2024 Reason Comments 08-19-2024 Colon EGD kennedy Reason Comments F/U 3 Month Reason Comments Follow Up CKD Reason Comments Follow Up For Lab results Reason Comments type 2 diabetes Specialty Diagnoses / Procedures Referred By Contac t Referred To Contact Endocrinology Diagnoses Type 2 diabetes mellitus with stage 3b chronic kidney disease, with long-term current use of insulin (HCC) Procedures CONSULT TO ENDOCRINOLOGY OFFICE/OUTPATIENT [facility] 60 MINUTES Vera Manrique MD [address] [place] [address] Phone: tel: fax: Referral ID Status Reason Start Date Expiration Date V isits Requested Visits Authorized [id number] Closed PCP Requested Referral 05/09/2024 05/09/2025 1 1 Reason Comments Orders Reason Comments Care Coordination Optimal Transition P rogram Reason Onset Date Comments Refill Request 11/05/2024 Reason Comments Patient Update Lab reminder Reason Comments Appointment Mailed patient appoi ntment information as requested. Reason Onset Date Comments Refill Request 12/11/2024 Reason Comments AVS Specialty Diagnoses / Procedures Referred By Contac t Referred To Contact Diagnoses Iron malabsorption (HCC) Anemia associated with stage 5 chronic renal failure (HCC) Nini Freire DO [address] [facility] [place] [place] [address] Phone: tel: fax: Nini Freire, [address] [facility] [place] [address] Phone: tel: fax: Referral ID Status Reason Start Date Expiration Date V isits Requested Visits Authorized [id number] Authorized 2024 03/18/2025 99 99 Reason Onset Date Comments Refill Request 12/16/2024 Reason Comments Imm/Inj Specialty Diagnoses / Procedures Referred By Contac t Referred To Contact Diagnoses Anemia associated with stage 5 chronic renal failure (HCC) Nini Freire DO [address] [facility] [place] [address] Phone: tel: fax: Nini Freire, DO [address] [place] [address] Phone: tel: fax: Referral ID Status Reason Start Date Expiration Date V isits Requested Visits Authorized [id number] Authorized 12/24/2024 03/24/2025 99 99 Reason Comments Hospital F/U Hospital on ER, buttock sore Reason Comments incontinence suppy order Reason Comments order for incontinence supplies Reason Comments Preparations For Surgery Preoperative Pl avix instructions Reason Comments Preparations For Surgery External EKG an d pacemaker check Reason Comments Care Coordination Vasc consult/vein ma pping Reason Comments Preparations For Surgery PACC Reason Onset Date Comments Opened In Error 01/23/2025 Reason Comments Pacemaker Check Reason Comments Consult surgery on 01/30/25 a t Kennedy Reason Onset Date Comments Refill Request 02/12/2025 Reason Comments Missed Appointment Pharmacist Visit Res cheduling Reason Comments Orders Incontinence supplie s - pull ups Care Teams (unrecognized sec tion and content) Toy Consultant Relationship Specialty Start Date End Date Vera Manrique MD [address] [place], [place] [address] PCP - General Internal Medicine 01/21/15 [facility] [address] [place], [place] [id number] [phone] Pharmacist Pharmacy 09/06/18 Toy Consultant Relationship Specialty Start Date End Date Vera Manrique MD [address] [place], [place] [id number] [phone] PCP - General Internal Medicine 01/21/15 [facility] [address] [place] [address] Pharmacist Pharmacy 09/06/18 Toy Consultant Relationship Specialty Start Date End Date Vera Manrique MD [address] [place], [place] [id number] PCP - General Internal Medicine 01/21/15 [place] del[place], [facility] [address] [place] [address] Pharmacist Pharmacy 09/06/18 Toy Consultant Relationship Specialty Start Date End Date Vera Manrique MD [address] [place] [address] PCP - General Internal Medicine 01/21/15 Skylar Thomasily, [facility]ly [facility] [address] [place] [address] Pharmacist Pharmacy 09/06/18 Toy Consultant Relationship Specialty Start Date End Date Vera Manrique MD [address] [place] [address] PCP - General Internal Medicine 01/21/15 Renuka Thomas, [facility] [address] [place] [address] Pharmacist Pharmacy 09/06/18 Toy Consultant Relationship Specialty Start Date End Date Vera Manrique MD [address] [place] [address] PCP - General Internal Medicine 01/21/15 MarthaSkylar delunaily, [facility] [address] [place] [address] Pharmacist Pharmacy 09/06/18 Toy Consultant Relationship Specialty Start Date End Date Vera Manrique MD [address] [place] [address] PCP - General Internal Medicine 01/21/15 Renuka Thomas, [facility] [address] [place] [address] Pharmacist Pharmacy 09/06/18 Toy Consultant Relationship Specialty Start Date End Date Vera Manrique MD [address] [place] [address] PCP - General Internal Medicine 01/21/15 [place]ylarRenuka, [facility] [address] [place] [place] [address] Pharmacist Pharmacy 09/06/18 Team Status: Active Member Role Status Dates Dr. Vera Manrique MD Family Provider Active Dr. Vera Manrique MD Primary Care Provider Active Team Status: Inactive Member Role Status Dates Dr. Vera Manrique MD Referring Provider Active Dr. Wilton Javier DO Attending Provider Active Dr. Nini Lo MD Primary Care Provider Active Team Status: Inactive Member Role Status Dates Dr. Taisha Luis DO Emergency Provider Active Dr. Vera Manrique MD Primary Care Provider Active Toy Consultant Relationship Specialty Start Date End Date Vera Manrique MD [address] [place] [place] [address] PCP - General Internal Medicine 01/21/15 [place]uka, [facility] [address] [place] [address] Pharmacist Pharmacy 09/06/18 Team Status: Inactive Member Role Status Dates Dr. Vera Manrique MD Primary Care Provider, Referring Provider Active Dr. Tiffanie Mckeon MD Attending Provider Active Team Status: Inactive Member Role Status Dates Dr. Taisha Luis DO Attending Provider, Emergency P jayro Active Dr. Vera Manrique MD Primary Care Provider Active Team Status: Inactive Member Role Status Dates Dr. Vera Manrique MD Primary Care Provider Active Dr. Santa Goldstein MD Emergency Provider Active Toy Consultant Relationship Specialty Start Date End Date Vera Manrique MD [address] [place] [place] [address] PCP - General Internal Medicine 01/21/15 [place]uka, [facility] [address] [place] [address] Pharmacist Pharmacy 09/06/18 Team Status: Inactive Member Role Status Dates Dr. Vera Manrique MD Primary Care Provider Active Jase Reinoso MD Referring Provider, Emergency Provid er Active Toy Consultant Relationship Specialty Start Date End Date Vera Manrique MD [address] [place] [address] PCP - General Internal Medicine 01/21/15 Renuka Thomas, [facility] [address] [place] [address] Pharmacist Pharmacy 09/06/18 Toy Consultant Relationship Specialty Start Date End Date Vera Manrique MD [address] [place] [address] PCP - General Internal Medicine 01/21/15 Renuka Thomas, [facility] [address] [place] [address] Pharmacist Pharmacy 09/06/18 Toy Consultant Relationship Specialty Start Date End Date Vera Manrique MD [address] [place] [address] PCP - General Internal Medicine 01/21/15 Renuka Thomas, [facility] [address] [place] [address] Pharmacist Pharmacy 09/06/18 Toy Consultant Relationship Specialty Start Date End Date Vera Manrique MD [address] [place] [address] PCP - General Internal Medicine 01/21/15 Renuka Thomas, [facility] [address] [place] [address] Pharmacist Pharmacy 09/06/18 Toy Consultant Relationship Specialty Start Date End Date Vera Manrique MD [address] [place] [address] PCP - General Internal Medicine 01/21/15 Renuka Thomas, [facility] [address] [place] [address] Pharmacist Pharmacy 09/06/18 Toy Consultant Relationship Specialty Start Date End Date Vear Manrique MD [address] [place] [address] PCP - General Internal Medicine 01/21/15 [place] Renuka, [facility] [address] [place] [address] Pharmacist Pharmacy 09/06/18 Team Status: Inactive Member Role Status Dates Dr. Vera Manrique MD Primary Care Provider, Referring Provider Active Dr. Wilton Javier DO Attending Provider Active Team Status: Inactive Member Role Status Dates Dr. Vera Manrique MD Primary Care Provider Active Dr. Robin Lima DO Emergency Provider Active Toy Consultant Relationship Specialty Start Date End Date Vera Manrique MD [address] [place] [place] [address] PCP - General Internal Medicine 01/21/15 [place] Renuka, [facility] [address] [place] [place] [address] Pharmacist Pharmacy 09/06/18 Toy Consultant Relationship Specialty Start Date End Date Vera Manrique MD [address] [place] [address] PCP - General Internal Medicine 01/21/15 [place] Renuka, [facility] [address] [place] [address] Pharmacist Pharmacy 09/06/18 Team Status: Inactive Member Role Status Dates Dr. Vera Manrique MD Primary Care Provider, Referring Provider Active Dr. Mitch Harris MD Attending Provider Active Team Status: Inactive Member Role Status Dates Dr. Vera Manrique MD Primary Care Provider Active Dr. Wilton Javier DO Attending Provider, Referring Provider Active Team Status: Inactive Member Role Status Dates Dr. Vera Manrique MD Primary Care Provider Active Dr. Robin Lima DO Attending Provider, Emergency Pro vider Active Toy Consultant Relationship Specialty Start Date End Date Vera Manrique MD [address] [place] [address] PCP - General Internal Medicine 01/21/15 [place]ar[place]uka, [facility] [address] [place] [address] Pharmacist Pharmacy 09/06/18 Toy Consultant Relationship Specialty Start Date End Date Vera Manrique MD [address] [place] [address] PCP - General Internal Medicine 01/21/15 [facility] Renuka, [facility] [address] [place] [address] Pharmacist Pharmacy 09/06/18 Toy Consultant Relationship Specialty Start Date End Date Vera Manrique MD [address] [place] [address] PCP - General Internal Medicine 01/21/15 [place]ar[place]uka, [facility] [address] [place] [address] Pharmacist Pharmacy 09/06/18 Team Status: Inactive Member Role Status Dates Dr. Vera Manrique MD Primary Care Provider Active Dr. Anastasia Stark DO Attending Provider Active Toy Consultant Relationship Specialty Start Date End Date Vera Manrique MD [address] [place] [address] PCP - General Internal Medicine 01/21/15 [place]uka, [facility] [address] [place] [address] Pharmacist Pharmacy 09/06/18 Toy Consultant Relationship Specialty Start Date End Date Vera Manrique MD [address] [place] [address] PCP - General Internal Medicine 01/21/15 Martha Renuka, [facility] [address] [place] [address] Pharmacist Pharmacy 09/06/18 Team Status: Active Member Role Status Dates Dr. Vera Manrique MD Primary Care Provider Active Dr. Juice Villarreal MD Attending Provider Active Dr. Anastasia Stark DO Referring Provider Active Team Status: Active Member Role Status Dates Dr. Vera Manrique MD Primary Care Provider, Referring Provider Active Dr. Wilton Javier DO Attending Provider, Other Prov ider Active Team Status: Inactive Member Role Status Dates Dr. Vera Manrique MD Primary Care Provider Active Dr. Anastasia Stark DO Attending Provider Active ANNIA CLARK Referring Provider Active Toy Consultant Relationship Specialty Start Date End Date Vera Manrique MD [address] [place] [address] PCP - General Internal Medicine 01/21/15 MarthaRenuka, [facility] [address] [place] [address] Pharmacist Pharmacy 09/06/18 Team Status: Inactive Member Role Status Dates Dr. Vera Manrique MD Primary Care Provider Active Dr. Leonel Horton DO Emergency Provider Active Toy Consultant Relationship Specialty Start Date End Date Vera Manrique MD [address] [place] [address] PCP - General Internal Medicine 01/21/15 [place] Renuka, [facility] [address] [place] [address] Pharmacist Pharmacy 09/06/18 Toy Consultant Relationship Specialty Start Date End Date Vera Manrique MD [address] [place] [address] PCP - General Internal Medicine 01/21/15 Renuka Thomas, [facility] [address] [place] [address] Pharmacist Pharmacy 09/06/18 Toy Consultant Relationship Specialty Start Date End Date Vera Manrique MD [address] [place] [address] PCP - General Internal Medicine 01/21/15 Renuka Thomas, [facility] [address] [place] [address] Pharmacist Pharmacy 09/06/18 Team Status: Inactive Member Role Status Dates Dr. Vera Manrique MD Primary Care Provider Active Dr. Juice Suero , Attending Provider, Emergency P rovider Active Team Status: Inactive Member Role Status Dates Dr. Vera Manrique MD Primary Care Provider Active Dr. Leonel Horton , DO Attending Provider, Emergency P rovider Active Toy Consultant Relationship Specialty Start Date End Date Vera Manrique MD [address] [place] [address] PCP - General Internal Medicine 01/21/15 Renuka Thomas, [facility] [address] [place] [address] Pharmacist Pharmacy 09/06/18 Toy Consultant Relationship Specialty Start Date End Date Vera Manrique MD [address] [place] [address] PCP - General Internal Medicine 01/21/15 Renuka Thomas, [facility] [address] [place] [address] Pharmacist Pharmacy 09/06/18 Toy Consultant Relationship Specialty Start Date End Date Vera Manrique MD [address] [place] [address] PCP - General Internal Medicine 01/21/15 Renuka Thomas, Formerly [facility] [address] [place] [address] Pharmacist Pharmacy 09/06/18 Toy Consultant Relationship Specialty Start Date End Date Vera Manrique MD [address] [place] [address] PCP - General Internal Medicine 01/21/15 Renuka Thomas, Formerly [facility] [address] [place] [address] Pharmacist Pharmacy 09/06/18 Toy Consultant Relationship Specialty Start Date End Date Vera Manrique MD [address] [place] [address] PCP - General Internal Medicine 01/21/15 Renuka Thomas, [facility]ly [facility] [address] [place] [address] Pharmacist Pharmacy 09/06/18 Toy Consultant Relationship Specialty Start Date End Date Vera Manrique MD [address] [place] [address] PCP - General Internal Medicine 01/21/15 Renuka Thomas, [facility]ly [facility] [address] [place] [address] Pharmacist Pharmacy 09/06/18 Toy Consultant Relationship Specialty Start Date End Date Vera Manrique MD [address] [place] [address] PCP - General Internal Medicine 01/21/15 Renuka Thomas, [facility]ly [facility] [address] [place] [address] Pharmacist Pharmacy 09/06/18 Toy Consultant Relationship Specialty Start Date End Date Vera Manrique MD [address] [place] [address] PCP - General Internal Medicine 01/21/15 Martha, Renuka, [facility]ly [facility] [address] [place] [address] Pharmacist Pharmacy 09/06/18 Toy Consultant Relationship Specialty Start Date End Date Vera Manrique MD [address] [place] [address] PCP - General Internal Medicine 01/21/15 HalifaxSkylar delunaily, Formerly [facility] [address] [place] [address] Pharmacist Pharmacy 09/06/18 Toy Consultant Relationship Specialty Start Date End Date Vera Manrique MD [address] [place] [address] PCP - General Internal Medicine 01/21/15 Halifax, Renuka, [facility]ly [facility] [address] [place] [address] Pharmacist Pharmacy 09/06/18 Toy Consultant Relationship Specialty Start Date End Date Vera Manrique MD [address] [place] [address] PCP - General Internal Medicine 01/21/15 Halifax, Renuka, [facility]ly [facility] [address] [place] [address] Pharmacist Pharmacy 09/06/18 Toy Consultant Relationship Specialty Start Date End Date Vera Manrique MD [address] [place] [address] PCP - General Internal Medicine 01/21/15 Renuka Thomas, [facility]ly [facility] [address] [place] [address] Pharmacist Pharmacy 09/06/18 Toy Consultant Relationship Specialty Start Date End Date Vera Manrique MD [address] [place] [address] PCP - General Internal Medicine 01/21/15 Renuka Thomas, [facility] [address] [place] [address] Pharmacist Pharmacy 09/06/18 Toy Consultant Relationship Specialty Start Date End Date Vera Manrique MD [address] [place] [address] PCP - General Internal Medicine 01/21/15 Renuka Thomas, [facility] [address] [place] [address] Pharmacist Pharmacy 09/06/18 Toy Consultant Relationship Specialty Start Date End Date Vera Manrique MD [address] [place] [address] PCP - General Internal Medicine 01/21/15 Renuka Thomas, [facility]ly [facility] [address] [place] [address] Pharmacist Pharmacy 09/06/18 Toy Consultant Relationship Specialty Start Date End Date Vera Manrique MD [address] [place] [address] PCP - General Internal Medicine 01/21/15 eRnuka Thomas, [facility]ly [facility] [address] [place] [address] Pharmacist Pharmacy 09/06/18 Toy Consultant Relationship Specialty Start Date End Date Vera Manrique MD [address] [place] [address] PCP - General Internal Medicine 01/21/15 Renuka Thomas, [facility]ly [facility] [address] [place] [address] Pharmacist Pharmacy 09/06/18 Toy Consultant Relationship Specialty Start Date End Date Vera Manrique MD [address] [place] [address] PCP - General Internal Medicine 01/21/15 Renuka Thomas, [facility]ly [facility] [address] [place] [address] Pharmacist Pharmacy 09/06/18 Toy Consultant Relationship Specialty Start Date End Date Vera Manrique MD [address] [place] [address] PCP - General Internal Medicine 01/21/15 Renuka Thomas, [facility] [address] [place] [address] Pharmacist Pharmacy 09/06/18 Toy Consultant Relationship Specialty Start Date End Date Vera Manrique MD [address] [place] [address] PCP - General Internal Medicine 01/21/15 Renuka Thomas, [facility] [address] [place] [address] Pharmacist Pharmacy 09/06/18 Toy Consultant Relationship Specialty Start Date End Date Vera Manrique MD [address] [place] [address] PCP - General Internal Medicine 01/21/15 Renuka Thomas, [facility] [address] [place] [address] Pharmacist Pharmacy 09/06/18 Toy Consultant Relationship Specialty Start Date End Date Vera Manrique MD [address] [place] [address] PCP - General Internal Medicine 01/21/15 Renuka Thomas, [facility] [address] [place] [address] Pharmacist Pharmacy 09/06/18 Toy Consultant Relationship Specialty Start Date End Date Vera Manrique MD [address] [place] [address] PCP - General Internal Medicine 01/21/15 Renuka Thomas, [facility]ly [facility] [address] [place] [address] Pharmacist Pharmacy 09/06/18 Toy Consultant Relationship Specialty Start Date End Date Vera Manrique MD [address] [place] [address] PCP - General Internal Medicine 01/21/15 Renuka Thomas, [facility] [address] [place] [address] Pharmacist Pharmacy 09/06/18 Toy Consultant Relationship Specialty Start Date End Date Vera Manrique MD [address] [place] [address] PCP - General Internal Medicine 01/21/15 Renuka Thomas, [facility]ly [facility] [address] [place] [address] Pharmacist Pharmacy 09/06/18 Toy Consultant Relationship Specialty Start Date End Date Vera Manrique MD [address] [place] [address] PCP - General Internal Medicine 01/21/15 Renuka Thomas, [facility] [address] [place] [address] Pharmacist Pharmacy 09/06/18 Toy Consultant Relationship Specialty Start Date End Date Vera Manrique MD [address] [place] [address] PCP - General Internal Medicine 01/21/15 Renuka Thomas, [facility]ly [facility] [address] [place] [address] Pharmacist Pharmacy 09/06/18 Toy Consultant Relationship Specialty Start Date End Date Vera Manrique MD [address] [place] [address] PCP - General Internal Medicine 01/21/15 Renuka Thomas, [facility]ly [facility] [address] [place] [address] Pharmacist Pharmacy 09/06/18 Toy Consultant Relationship Specialty Start Date End Date Vera Manrique MD [address] [place] [address] PCP - General Internal Medicine 01/21/15 Renkua Thomas, Formerly [facility] [address] [place] [address] Pharmacist Pharmacy 09/06/18 Toy Consultant Relationship Specialty Start Date End Date Vera Manrique MD [address] [place] [address] PCP - General Internal Medicine 01/21/15 Renuka Thomas, Formerly [facility] [address] [place] [place] [address] Pharmacist Pharmacy 09/06/18 Toy Consultant Relationship Specialty Start Date End Date Vera Manrique MD [address] [place] [address] PCP - General Internal Medicine 01/21/15 HalifaxRenuka deluna, Formerly [facility] [address] [place] [address] Pharmacist Pharmacy 09/06/18 Toya Smith PA-C [address] [place] [address] Director Institution Family Medicine 07/14/24 Taco Tatum APRN.CNP [address] [place] [address] Director Institution Internal Medicine 07/14/24 Angie Mercado PA-C [address] [place] [address] Director Institution Family Medicine 07/14/24 Toy Consultant Relationship Specialty Start Date End Date Vera Manrique MD [address] [place] [address] PCP - General Internal Medicine 01/21/15 Martha, Renuka, [facility] [address] [facility] [place] [address] Pharmacist Pharmacy 09/06/18 Toya Smith PA-C [address] [place] [address] Director Institution Family Medicine 07/14/24 Taco Tatum APRN.HELIARC WELDER [address] [place] [address] Director Institution Internal Medicine 07/14/24 Angie Mercado PA-C [address] [place] [address] Director Institution Family Medicine 07/14/24 Toy Consultant Relationship Specialty Start Date End Date Vera Manrique MD [address] [place] [address] PCP - General Internal Medicine 01/21/15 Renuka Thomas [facility] [address] [place] [address] Pharmacist Pharmacy 09/06/18 Toya Smith PA-C [address] [place] [address] [facility] Family Medicine 07/14/24 Taco Tatum APRN.HELIARC WELDER [address] [place] [address] Director Institution Internal Medicine 07/14/24 Angie Mercado PA-C [address] [place] [address] Director Institution Family Medicine 07/14/24 Toy Consultant Relationship Specialty Start Date End Date Vera Manrique MD [address] [place] [address] PCP - General Internal Medicine 01/21/15 Renuka Thomas [facility] [address] [place] [address] Pharmacist Pharmacy 09/06/18 Toya Smith PA-C [address] [place], [place] [phone] Director Institution Family Medicine 07/14/24 Taco Tatum APRN.HELIARC WELDER [address] [place] [address] Director Institution Internal Medicine 07/14/24 Angie Mercado PA-C [address] [place] [address] Director Institution Family Medicine 07/14/24 Toy Consultant Relationship Specialty Start Date End Date Vera Manrique MD [address] [place] [address] PCP - General Internal Medicine 01/21/15 Renuka Thomas [facility] [address] [place] [address] Pharmacist Pharmacy 09/06/18 Toya Smith PA-C [address] [place] [address] Director Institution Family Medicine 07/14/24 Taco Tatum APRN.HELIARC WELDER [address] [place] [address] Director Institution Internal Medicine 07/14/24 Angie Mercado PA-C [address] [place] [address] Director Institution Family Medicine 07/14/24 Toy Consultant Relationship Specialty Start Date End Date Vera Manrique MD [address] [place] [place] [address] PCP - General Internal Medicine 01/21/15 [facility] [address] [place] [address] Pharmacist Pharmacy 09/06/18 Toya Smith PA-C [address] [place] [address] Director Institution Family Medicine 07/14/24 Taco Tatum APRN.HELIARC WELDER [address] [place] [address] Director Institution Internal Medicine 07/14/24 Angie Mercado PA-C [address] [place] [address] Director Institution Family Medicine 07/14/24 Toy Consultant Relationship Specialty Start Date End Date Vera Manrique MD [address] [place] [address] PCP - General Internal Medicine 01/21/15 [facility] [address] [place] [address] Pharmacist Pharmacy 09/06/18 Toya Smith PA-C [address] [place] [address] Director Institution Family Medicine 07/14/24 Taco Tatum APRN.HELIARC WELDER [address] [place] [address] Director Institution Internal Medicine 07/14/24 Angie Mercado PA-C [address] [place] [address] Director Institution Family [facility] 07/14/24 Toy Consultant Relationship Specialty Start Date End Date Vera Manrique MD [address] [place] [address] PCP - General Internal Medicine 01/21/15 Renuka Thomas, Formerly [facility] [address] [place] [place] [address] Pharmacist Pharmacy 09/06/18 Toya Smith PA-C [address] [place] [address] Director Institution Family Medicine 07/14/24 Taco Tatum APRN.HELIARC WELDER [address] [place] [address] Director Institution Internal Medicine 07/14/24 Angie Mercado PA-C [address] [place] [address] Director Institution Family [facility] 07/14/24 Toy Consultant Relationship Specialty Start Date End Date Vera Manrique MD [address] [place] [place] [address] PCP - General Internal Medicine 01/21/15 HalifaxRenuka, Formerly [facility] [address] [place] [address] Pharmacist Pharmacy 09/06/18 Toya Smith PA-C [address] [place] [address] Director Institution Family Medicine 07/14/24 Taco Tatum APRN.HELIARC WELDER [address] [place] [address] Director Institution Internal Medicine 07/14/24 Angie Mercado PA-C [address] [place] [address] Director Institution Family Medicine 07/14/24 Toy Consultant Relationship Specialty Start Date End Date Vera Manrique MD [address] [place] [address] PCP - General Internal Medicine 01/21/15 Renuka Thomas, Formerly [facility] [address] [place] [address] Pharmacist Pharmacy 09/06/18 Toya Smith PA-C [address] [place] [address] Director Institution Family Medicine 07/14/24 Taco Tatum APRN.HELIARC WELDER [address] [place] [address] Director Institution Internal Medicine 07/14/24 Angie Mercado PA-C [address] [place] [address] Director Institution Family Medicine 07/14/24 Toy Consultant Relationship Specialty Start Date End Date Vera Manrique MD [address] [place] [address] PCP - General Internal Medicine 01/21/15 Renuka Thomas, [facility] [address] [place] [address] Pharmacist Pharmacy 09/06/18 Toya Smith PA-C [address] [place] [address] Director Institution Family Medicine 07/14/24 Taco Tatum APRN.HELIARC WELDER [address] [facility] [place] [address] Director Institution Internal Medicine 07/14/24 Angie Mercado PA-C [address] [place] [address] Director Institution Family Medicine 07/14/24 Toy Consultant Relationship Specialty Start Date End Date Vera Manrique MD [address] [place] [place] [address] PCP - General Internal Medicine 01/21/15 Renuka Thomas [facility] [address] [place] [place] [address] Pharmacist Pharmacy 09/06/18 Toya Smith PA-C [address] [place] [address] Director Institution Family Medicine 07/14/24 Taco Tatum APRN.HELIARC WELDER [address] [facility] [place] [address] Director Institution Internal Medicine 07/14/24 Angie Mercado PA-C [address] [place] [address] Director Institution Family Medicine 07/14/24 Toy Consultant Relationship Specialty Start Date End Date Vera Manrique MD [address] [place] [address] PCP - General Internal Medicine 01/21/15 [facility] [address] [place] [address] Pharmacist Pharmacy 09/06/18 Toya Smith PA-C [address] [place], [place] [id number] [phone] Director Institution Family Medicine 07/14/24 Taco Tatum APRN.HELIARC WELDER [address] [place] [address] Director Institution Internal Medicine 07/14/24 Angie Mercado PA-C [address] [place] [address] Director Institution Family Medicine 07/14/24 Toy Consultant Relationship Specialty Start Date End Date Vera Manrique MD [address] [place] [address] PCP - General Internal Medicine 01/21/15 [place] [facility] [address] [place] [address] Pharmacist Pharmacy 09/06/18 Toya Smith PA-C [address] [place] [address] Director Institution Family Medicine 07/14/24 Taco Tatum APRN.HELIARC WELDER [address] [facility] [place] [address] Director Institution Internal Medicine 07/14/24 Angie Mercado PA-C [address] [place] [address] Director Institution Family [facility] 07/14/24 Toy Consultant Relationship Specialty Start Date End Date Vera Manrique MD [address] [place] [address] PCP - General Internal Medicine 01/21/15 Renuka Thomas, Formerly [facility] [address] [place] [address] Pharmacist Pharmacy 09/06/18 Taco Tatum APRN.HELIARC WELDER [address] [place] [address] Director Institution Internal Medicine 07/14/24 Toy Consultant Relationship Specialty Start Date End Date Vera Manrique MD [address] [place] [address] PCP - General Internal Medicine 01/21/15 Renuka Thomas, [facility] [address] [place] [address] Pharmacist Pharmacy 09/06/18 Taco Tatum APRN.HELIARC WELDER [address] [place] [address] Director Institution Internal Medicine 07/14/24 Toy Consultant Relationship Specialty Start Date End Date Vera Manrique MD [address] [place] [address] PCP - General Internal Medicine 01/21/15 Renuka Thomas, [facility]ly [facility] [address] [place] [address] Pharmacist Pharmacy 09/06/18 Taco Tatum APRN.HELIARC WELDER [address] [place] [address] Director Institution Internal Medicine 07/14/24 Toy Consultant Relationship Specialty Start Date End Date Vera Manrique MD [address] [place] [address] PCP - General Internal Medicine 01/21/15 Renuka Thomas, [facility] [address] [place] [address] Pharmacist Pharmacy 09/06/18 Toya Smith PA-C [address] [place] [address] Director Institution Family Medicine 07/14/24 10/27/24 Taco Tatum APRN.HELIARC WELDER [address] [place] [address] Director Institution Internal Medicine 07/14/24 Angie Mercado PA-C [address] [place] [address] Director Institution Family Medicine 07/14/24 10/27/24 Toy Consultant Relationship Specialty Start Date End Date Vera Manrique MD [address] [place] [address] PCP - General Internal Medicine 01/21/15 Renuka Thomas, [facility]ly [facility] [address] [place] [address] Pharmacist Pharmacy 09/06/18 Taco Tatum APRN.HELIARC WELDER [address] [place] [address] Director Institution Internal Medicine 07/14/24 Toy Consultant Relationship Specialty Start Date End Date Vera Manrique MD [address] [place] [address] PCP - General Internal Medicine 01/21/15 [facility] [address] [place] [address] Pharmacist Pharmacy 09/06/18 Taco Tatum APRN.HELIARC WELDER [address] [place] [address] Director Institution Internal Medicine 07/14/24 Toy Consultant Relationship Specialty Start Date End Date Vera Manrique MD [address] [place] [address] PCP - General Internal Medicine 01/21/15 [facility] [address] [place] [address] Pharmacist Pharmacy 09/06/18 Taco Tatum APRN.HELIARC WELDER [address] [place] [address] Director Institution Internal Medicine 07/14/24 Toy Consultant Relationship Specialty Start Date End Date Vera Manrique MD [address] [place] [address] PCP - General Internal Medicine 01/21/15 [facility] [address] [place] [address] Pharmacist Pharmacy 09/06/18 Taco Tatum APRN.HELIARC WELDER [address] [place] [address] Director Institution Internal Medicine 07/14/24 Toy Consultant Relationship Specialty Start Date End Date Vera Manrique MD [address] [place] [address] PCP - General Internal Medicine 01/21/15 [facility] [address] [place] [address] Pharmacist Pharmacy 09/06/18 Taco Tatum APRN.HELIARC WELDER [address] [place] [address] Director Institution Internal Medicine 07/14/24 Toy Consultant Relationship Specialty Start Date End Date Vera Manrique MD [address] [place] [address] PCP - General Internal Medicine 01/21/15 [facility] [address] [place] [address] Pharmacist Pharmacy 09/06/18 Taco Tatum APRN.HELIARC WELDER [address] [place] [address] Director Institution Internal Medicine 07/14/24 Toy Consultant Relationship Specialty Start Date End Date Vera Manrique MD [address] [place] [address] PCP - General Internal Medicine 01/21/15 [facility] [address] [place] [address] Pharmacist Pharmacy 09/06/18 Taco Tatum APRN.HELIARC WELDER [address] [place] [address] Director Institution Internal Medicine 07/14/24 Toy Consultant Relationship Specialty Start Date End Date Vera Manrique MD [address] [place] [address] PCP - General Internal Medicine 01/21/15 HalifaxRenuka, [facility]ly [facility] [address] [place] [address] Pharmacist Pharmacy 09/06/18 Taco Tatum APRN.HELIARC WELDER [address] [place] [address] Director Institution Internal Medicine 07/14/24 Toy Consultant Relationship Specialty Start Date End Date Vera Manrique MD [address] [place] [address] PCP - General Internal Medicine 01/21/15 [facility] [address] [place] [address] Pharmacist Pharmacy 09/06/18 Taco Tatum APRN.HELIARC WELDER [address] [place] [address] Director Institution Internal Medicine 07/14/24 Toy Consultant Relationship Specialty Start Date End Date Vera Manrique MD [address] [place] [address] PCP - General Internal Medicine 01/21/15 [facility] [address] [place] [address] Pharmacist Pharmacy 09/06/18 Taco Tatum APRN.HELIARC WELDER [address] [place] [address] Director Institution Internal Medicine 07/14/24 Toy Consultant Relationship Specialty Start Date End Date Vera Manrique MD [address] [place] [address] PCP - General Internal Medicine 01/21/15 HalifaxRenuka deluna, [facility]ly [facility] [address] [place] [address] Pharmacist Pharmacy 09/06/18 Taco Tatum APRN.HELIARC WELDER [address] [place] [address] Director Institution Internal Medicine 07/14/24 Toy Consultant Relationship Specialty Start Date End Date Vera Manrique MD [address] [place] [address] PCP - General Internal Medicine 01/21/15 [facility] [address] [place] [address] Pharmacist Pharmacy 09/06/18 Taco Tatum APRN.HELIARC WELDER [address] [place] [address] Director Institution Internal Medicine 07/14/24 Toy Consultant Relationship Specialty Start Date End Date Vera Manrique MD [address] [place] [address] PCP - General Internal Medicine 01/21/15 [facility] [address] [place] [address] Pharmacist Pharmacy 09/06/18 Taco Tatum APRN.HELIARC WELDER [address] [place] [address] Director Institution Internal Medicine 07/14/24 Toy Consultant Relationship Specialty Start Date End Date Vera Manrique MD [address] [place] [address] PCP - General Internal Medicine 01/21/15 MarthaRenuka deluna, [facility]ly [facility] [address] [place] [address] Pharmacist Pharmacy 09/06/18 Taco Tatum APRN.HELIARC WELDER [address] [place] [address] Director Institution Internal Medicine 07/14/24 Toy Consultant Relationship Specialty Start Date End Date Vera Manrique MD [address] [place] [address] PCP - General Internal Medicine 01/21/15 [facility] [address] [place] [address] Pharmacist Pharmacy 09/06/18 Taco Tatum APRN.HELIARC WELDER [address] [place] [address] Director Institution Internal Medicine 07/14/24 Toy Consultant Relationship Specialty Start Date End Date Vera Manrique MD [address] [place] [address] PCP - General Internal Medicine 01/21/15 [facility] [address] [place] [address] Pharmacist Pharmacy 09/06/18 Taco Tatum APRN.HELIARC WELDER [address] [place] [address] Director Institution Internal Medicine 07/14/24 Toy Consultant Relationship Specialty Start Date End Date Vera Manrique MD [address] [place] [address] PCP - General Internal Medicine 01/21/15 Renuka Thomas, [facility]ly [facility] [address] [place] [address] Pharmacist Pharmacy 09/06/18 Taco Tatum APRN.HELIARC WELDER [address] [place] [address] Director Institution Internal Medicine 07/14/24 Team Status: Active Member Role Status Dates Dr. Vera Manrique MD Primary Care Provider Active Team Status: Inactive Member Role Status Dates Dr. Vera Manrique MD Primary Care Provider Active Start: December 23, 2024 End: December 23, 2024 Dr. Juice Suero DO Emergency Provider Active Start: December 23, 2024 End: December 23, 2024 Toy Consultant Relationship Specialty Start Date End Date Vera Manrique MD [address] [place] [address] PCP - General Internal Medicine 01/21/15 Renuka Thomas, [facility] [address] [place] [address] Pharmacist Pharmacy 09/06/18 Taco Tatum APRN.HELIARC WELDER [address] [place] [address] Director Institution Internal Medicine 07/14/24 Toy Consultant Relationship Specialty Start Date End Date Vera Manrique MD [address] [place] [address] PCP - General Internal Medicine 01/21/15 Renuka Thomas, Formerly [facility] [address] [place] [address] Pharmacist Pharmacy 09/06/18 Taco Tatum APRN.HELIARC WELDER [address] [place] [address] Director Institution Internal Medicine 07/14/24 Toy Consultant Relationship Specialty Start Date End Date Vear Manrique MD [address] [place] [address] PCP - General Internal Medicine 01/21/15 Renuka Thomas, Formerly [facility] [address] [place] [address] Pharmacist Pharmacy 09/06/18 Taco Tatum APRN.HELIARC WELDER [address] [place] [address] Director Institution Internal Medicine 07/14/24 Toy Consultant Relationship Specialty Start Date End Date Vera Manrique MD [address] [place] [address] PCP - General Internal Medicine 01/21/15 Renuka Thomas, Formerly [facility] [address] [place] [address] Pharmacist Pharmacy 09/06/18 Taco Tatum APRN.HELIARC WELDER [address] [place] [address] Director Institution Internal Medicine 07/14/24 Toy Consultant Relationship Specialty Start Date End Date Vera Manrique MD [address] [place] [address] PCP - General Internal Medicine 01/21/15 Renuka Thomas, [facility]ly [facility] [address] [place] [address] Pharmacist Pharmacy 09/06/18 Taco Tatum APRN.HELIARC WELDER [address] [place] [address] Director Institution Internal Medicine 07/14/24 Toy Consultant Relationship Specialty Start Date End Date Vera Manrique MD [address] [place] [address] PCP - General Internal Medicine 01/21/15 Renuka Thomas, Formerly [facility] [address] [place] [address] Pharmacist Pharmacy 09/06/18 Taco Tatum APRN.HELIARC WELDER [address] [place] [address] Director Institution Internal Medicine 07/14/24 Toy Consultant Relationship Specialty Start Date End Date Vera Manrique MD [address] [place] [address] PCP - General Internal Medicine 01/21/15 Renuka Thomas, [facility]ly [facility] [address] [place] [address] Pharmacist Pharmacy 09/06/18 Taco Tatum APRN.HELIARC WELDER [address] [place] [address] Director Institution Internal Medicine 07/14/24 Toy Consultant Relationship Specialty Start Date End Date Vera Manrique MD [address] [place] [address] PCP - General Internal Medicine 01/21/15 Renuka Thomas, [facility]ly [facility] [address] [place] [address] Pharmacist Pharmacy 09/06/18 Taco Tatum APRN.HELIARC WELDER [address] [place] [address] Director Institution Internal Medicine 07/14/24 Toy Consultant Relationship Specialty Start Date End Date Vera Manrique MD [address] [place] [address] PCP - General Internal Medicine 01/21/15 Renuka Thomas, [facility]ly [facility] [address] [place] [address] Pharmacist Pharmacy 09/06/18 Taco Tatum APRN.HELIARC WELDER [address] [place] [address] Director Institution Internal Medicine 07/14/24 Toy Consultant Relationship Specialty Start Date End Date Vera Manrique MD [address] [place] [address] PCP - General Internal Medicine 01/21/15 Renuka Thomas, Formerly [facility] [address] [place] [address] Pharmacist Pharmacy 09/06/18 Taco Tatum APRN.HELIARC WELDER [address] [place] [address] Director Institution Internal Medicine 07/14/24 Toy Consultant Relationship Specialty Start Date End Date Vera Manrique MD [address] [place] [address] PCP - General Internal Medicine 01/21/15 Renuka Thomas, Formerly [facility] [address] [place] [address] Pharmacist Pharmacy 09/06/18 Taco Tatum APRN.HELIARC WELDER [address] [place] [address] Director Institution Internal Medicine 07/14/24 Toy Consultant Relationship Specialty Start Date End Date Vera Manrique MD [address] [place] [address] PCP - General Internal Medicine 01/21/15 [facility] [address] [place] [address] Pharmacist Pharmacy 09/06/18 Taco Tatum APRN.HELIARC WELDER [address] [place] [address] Director Institution Internal Medicine 07/14/24 Toy Consultant Relationship Specialty Start Date End Date Vera Manrique MD [address] [place] [address] PCP - General Internal Medicine 01/21/15 [facility] [address] [place] [address] Pharmacist Pharmacy 09/06/18 Taco Tatum APRN.HELIARC WELDER [address] [place] [address] Director Institution Internal Medicine 07/14/24 Toy Consultant Relationship Specialty Start Date End Date Vera Manrique MD [address] [place] [address] PCP - General Internal Medicine 01/21/15 [facility] [address] [place] [address] Pharmacist Pharmacy 09/06/18 Taco Tatum APRN.HELIARC WELDER [address] [place] [address] Director Institution Internal Medicine 07/14/24 Toy Consultant Relationship Specialty Start Date End Date Vera Manrique MD [address] [place] [address] PCP - General Internal Medicine 01/21/15 [facility] [address] [place] [address] Pharmacist Pharmacy 09/06/18 Taco Tatum APRN.HELIARC WELDER [address] [place] [address] Director Institution Internal Medicine 07/14/24 Toy Consultant Relationship Specialty Start Date End Date Vera Manrique MD [address] [place] [address] PCP - General Internal Medicine 01/21/15 [facility] [address] [place] [address] Pharmacist Pharmacy 09/06/18 Taco Tatum APRN.HELIARC WELDER [address] [place] [address] Director Institution Internal Medicine 07/14/24 Toy Consultant Relationship Specialty Start Date End Date Vera Manrique MD [address] [place] [address] PCP - General Internal Medicine 01/21/15 [facility] [address] [place] [address] Pharmacist Pharmacy 09/06/18 Taco Tatum APRN.HELIARC WELDER [address] [place] [address] Director Institution Internal Medicine 07/14/24 Toy Consultant Relationship Specialty Start Date End Date Vera Manrique MD [address] [place] [address] PCP - General Internal Medicine 01/21/15 Renuka Thomas, [facility] [address] [place] [address] Pharmacist Pharmacy 09/06/18 Taco Tatum APRN.HELIARC WELDER [address] [place] [address] Director Institution Internal Medicine 07/14/24 Toy Consultant Relationship Specialty Start Date End Date Vera Manrique MD [address] [place] [address] PCP - General Internal Medicine 01/21/15 Renuka Thomas, [facility] [address] [place] [address] Pharmacist Pharmacy 09/06/18 Taco Tatum APRN.HELIARC WELDER [address] [place] [address] Director Institution Internal Medicine 07/14/24 Toy Consultant Relationship Specialty Start Date End Date Vera Manrique MD [address] [place] [address] PCP - General Internal Medicine 01/21/15 Renuka Thomas, [facility] [address] [place] [address] Pharmacist Pharmacy 09/06/18 Taco Tatum APRN.HELIARC WELDER [address] [place] [address] Director Institution Internal Medicine 07/14/24 Toy Consultant Relationship Specialty Start Date End Date Vera Manrique MD [address] [place] [address] PCP - General Internal Medicine 01/21/15 [facility] [address] [place] [address] Pharmacist Pharmacy 09/06/18 Taco Tatum APRN.HELIARC WELDER [address] [place] [address] Director Institution Internal Medicine 07/14/24 Toy Consultant Relationship Specialty Start Date End Date Vera Manrique MD [address] [place] [address] PCP - General Internal Medicine 01/21/15 [facility] [address] [place] [address] Pharmacist Pharmacy 09/06/18 Taco Tatum APRN.HELIARC WELDER [address] [place] [address] Director Institution Internal Medicine 07/14/24 Toy Consultant Relationship Specialty Start Date End Date Vera Manrique MD [address] [place] [address] PCP - General Internal Medicine 01/21/15 Taco Tatum APRN.HELIARC WELDER [address] [place] [address] Director Institution Internal Medicine 07/14/24 Team Status: Active Member Role/Relationship Status Dates Dr. Vera Manrique MD Primary Care Provider Active Team Status: Inactive Member Role/Relationship Status Dates Dr. Vera Manrique MD Primary Care Provider Active Start: December 23, 2024 End: December 23, 2024 Dr. Juice Suero DO Attending Provider Active Start: December 23, 2024 End: December 23, 2024 Dr. Juice Suero DO Emergency Provider Active Start: December 23, 2024 End: December 23, 2024 Team Status: Inactive Member Role/Relationship Status Dates Dr. Vera Manrique MD Primary Care Provider Active Start: March 19, 2025 End: March 19, 2025 Dr. Leonel Horton DO Emergency Provider Active Start: March 19, 2025 End: March 19, 2025 Toy Consultant Relationship Specialty Start Date End Date Vera Manrique MD [address] [place] [address] PCP - General Internal Medicine 01/21/15 Taco Tatum APRN.HELIARC WELDER [address] [facility] [place] [address] [facility] Internal Medicine 07/14/24 Toy Consultant Relationship Specialty Start Date End Date Vera Manrique MD [address] [facility] [place] [address] PCP - General Internal Medicine 01/21/15 Taco Tatum APRN.HELIARC WELDER [address] [facility] [place] [address] [facility] Internal Medicine 07/14/24 Toy Consultant Relationship Specialty Start Date End Date Vera Manrique MD [address] [place] [address] PCP - General Internal Medicine 01/21/15 Older, Taco, RUNNING SPECIALIST.HELIARC WELDER [address] [place], [place] [address] Director Institution Internal Medicine 07/14/24 Toy Consultant Relationship Specialty Start Date End Date Vera Manrique MD [address] [place] [address] PCP - General Internal Medicine 01/21/15 Older, Taco, RUNNING SPECIALIST.HELIARC WELDER [address] [place] [address] Director Institution Internal Medicine 07/14/24 Toy Consultant Relationship Specialty Start Date End Date Vera Manrique MD [address] [place] [address] PCP - General Internal Medicine 01/21/15 Older, Taco, RUNNING SPECIALIST.HELIARC WELDER [address] [place] [address] Director Institution Internal Medicine 07/14/24 Toy Consultant Relationship Specialty Start Date End Date Vera Manrique MD [address] [place] [address] PCP - General Internal Medicine 01/21/15 Older, Taco, RUNNING SPECIALIST.HELIARC WELDER [address] [place], [place] [address] [phone] Director Institution Internal Medicine 07/14/24 Team Status: Active Member Role/Relationship Status Dates Dr. Vera Manrique MD Primary care physician Active Team Status: Inactive Member Role/Relationship Status Dates Dr. Vera Manrique MD Primary care physician Active Start: March 19, 2025 End: March 19, 2025 Dr. Leonel Horton DO Attending physician Active Start: March 19, 2025 End: March 19, 2025 Dr. Leonel Horton DO Emergency Department Physician Active Start: March 19, 2025 End: March 19, 2025 Team Status: Inactive Member Role/Relationship Status Dates Dr. Vera Manrique MD Primary care physician Active Start: April 28, 2025 End: April 28, 2025 Dr. Ck Diane DO Attending physician Active Start: April 28, 2025 End: April 28, 2025 Dr. Ck Diane DO Emergency Departme nt Physician Active Start: April 28, 2025 End: April 28, 2025 Goals (unrecognized section and content) Goals may be documented in a n alternate sectionGoals may be documented in an alternate sectionGoals may be documented in an alternate sectionGoals may be documented in an alternate sectionGoals may be documented in an alternate sectionGoals may be documented in an alternate sectionGoals may be documented in an alternate sectionGoals may be documented in an alternate sectionGoals may be documented in an alternate sectionGoals may be documented in an alternate sectionGoals may be documented in an alternate section No data available for this sectionGoals may be documented in an alternate section FOR RECORDS PERTAINING TO PATIENTS WHO ARE OR HAVE BEEN ENROLLED IN A CHEMICAL DEPENDENCY/SUBSTANCEABUSE PROGRAM, SOME INFORMATION MAY BE OMITTED. This clinical summary was aggregated from multiple sources. Caution should be exercised in using it in the provision of clinical care. This summary normalizes information from multiple sources, and as a consequence, information in this document may materially change the coding, format and clinical context of patient data. In addition, data may be omitted in some cases. CLINICAL DECISIONS SHOULD BE BASED ON THE PRIMARY CLINICAL RECORDS. [facility]. provides no warranty or guarantee of the accuracy or completeness of information in this document.
[2025-07-18 17:10] LABS: Ferritin 574 ng/mL (37-417); Iron 57 ug/dL (65-175); Iron Binding Capacity,Unsat 125 ug/dL (228-428)
[2025-07-18 17:16] LABS: Iron Binding Capacity,Total 182 ug/dL (250-450)
[2025-07-18] MEDS: 0.9% Normal Saline (1000mL) 1,000 ML 125 ML IV (17:40)
--- NOTE | 2025-07-18 19:29 | US_ITS ---
PROCEDURE: KIDNEY AND BLADDER 07/18/2025 REASON FOR EXAM: CHRONIC KIDNEY DISEASE TECHNIQUE: Procedure Code: USKI Modality: US Procedure: KIDNEY AND BLADDER COMPARISON: None. FINDINGS: The right kidney measures 10 x5.7 x 4.6 cm. Normal right renal cortical thickness measuring 1.6 cm. The left kidney measures 10.4 x 5.5 x 4.6 cm. Normal left renal cortical thickness measuring 1.6 cm. Left renal nonobstructing stones measuring 0.9 x 0.8 x 0.8 and 0.7 x 0.7 x 0.6 cm. No evidence of hydronephrosis on either side. Left renal simple cyst measuring 1.7 x 1.5 x 1.7 cm in the mid aspect of the left kidney. The bladder measures 259 cc in volume. Normal bladder wall thickness measuring 2 mm. Left ureteral jet was visualized. Right ureteral jet was not visualized. Heterogeneous prostate echotexture is noted. The prostate gland measures 4.4 x 4.9 x 3.2 cm. US/Kidney and Bladder IMPRESSION: Nonobstructing left nephrolithiasis. No evidence of hydronephrosis on either side. Heterogeneous prostatic echotexture, chronic finding. Reading Location: [facility]
[2025-07-18] MEDS: 0.9% Saline Lock 10 ML Syringe IV (20:50)
[2025-07-18] MEDS: Heparin Injection (Vial) 5,000 UNIT/ML VIAL 5000 UNIT SC (20:51)
[2025-07-19] VITALS (7 sets, daily range): BP systolic 141–190; BP diastolic 61–86; PULSE 61–76; RESP 17–18; TEMP 36.6–36.9; O2SAT 98–100
[2025-07-19] MEDS: 0.9% Normal Saline (1000mL) 1,000 ML 125 ML IV (01:37)
[2025-07-19 06:17] LABS: Hematocrit 27.5 % (40-54); Hemoglobin 8.9 g/dL (13.0-16.5); Immature Granulocytes Count 0.030 X10^3/uL (0.0-0.0); Mean Corp Hgb Conc 32.4 g/dL (32-36); Mean Corpuscular Volume 87.0 fL (80-94); Mean Platelet Vol. 9.7 fl (6.2-12.0); NRBC Flagged by Analyzer 0 % (0-5); Platelet Count 160 K/mm3 (150-450); RBC Distribution Width CV 13.3 % (11.6-14.6); RBC Distribution Width SD 42.4 fl (35.1-43.9); Red Blood Count 3.16 M/mm3 (4.6-6.2); White Blood Count 5.2 K/mm3 (4.4-11.0)
[2025-07-19] MEDS: Heparin Injection (Vial) 5,000 UNIT/ML VIAL 5000 UNIT SC (06:33)
[2025-07-19 06:40] LABS: Anion Gap 13 (5-15); BUN 62 mg/dL (4-19); BUN/Creat Ratio 13.8 RATIO (10-20); Calcium,Total 8.0 mg/dL (7.6-11.0); Carbon Dioxide 14.4 mmol/L (21.0-32.0); Chloride 112 mmol/L (98-108); Estimated Creatinine Clearance 15.22 ml/min (50-250); Glucose 88 mg/dL (70-99); Potassium 4.8 mmol/L (3.3-5.1)
[2025-07-19] MEDS: Aspirin E.C. 81 MG Tablet PO (09:29)
[2025-07-19] MEDS: Insulin Glargine-YFGN 100 UNIT/ML Pen 20 UNIT SC (10:04)
--- NOTE | 2025-07-19 11:30 | PN.HOSP_ITS ---
Reason for Visit Chief Complaint: frequent falls, weakness Subjective Subjective Feeling fine. States that he has to go home because his daughter is at home and she is a dope addict. Objective Data Objective Data Vital Signs: Vital Signs Temp Pulse Resp BP Pulse Ox O2 Del Method 36.7 C 70 17 185/66 H 100 Room Air 07/19/25 09:25 07/19/25 09:25 07/19/25 09:25 07/19/25 09:25 07/19/25 09:25 07/19/25 09:25 Oxygen Delivery Method Room Air Weight: 67.1 kg Body Mass Index (BMI) 21.8 Intake & Output: Intake and Output for Last 24 Hours 07/17/25 07/18/25 07/19/25 23:59 23:59 23:59 Intake Total Balance Lab / Micro Data 07/19/25 05:18 07/19/25 05:18 Labs: Laboratory Results - last 24 hr 07/18/25 13:50: WBC 5.6, RBC 3.58 L, Hgb 9.9 L, Hct 31.5 L, MCV 88.0, MCH 27.7, MCHC 31.4 L, RDW Std Deviation 43.2, RDW Coeff of Harry 13.3, Plt Count 173, MPV 9.5, Immature Gran % (Auto) 0.700, Neut % (Auto) 62.0, Lymph % (Auto) 27.0, Duchesne % (Auto) 6.9, Eos % (Auto) 3.0, Baso % (Auto) 0.4, Absolute Neuts (auto) 3.5, Absolute Lymphs (auto) 1.52, Nucleated RBC % 0, Sodium 139, Potassium 5.2 H, Chloride 108, Carbon Dioxide 19.0 L, Anion Gap 12, BUN 72 H, Creatinine 4.83 H, Estim Creat Clear Calc 14.23 L, Est GFR (MDRD) Non-Af 12 L, BUN/Creatinine Ratio 15.0, Glucose 229 H, Calcium 8.9, Iron 57 L, TIBC 182 L, Iron Saturation 31.3, U nsaturated IBC 125 L, Ferritin 574 H 07/18/25 14:05: Urine Color Straw, Urine Clarity Clear, Urine pH 6.0, Ur Specific [place] 1.015, Urine Protein 500 H, Urine Glucose (UA) 250 H, Urine Ketones Negative, Urine Occult Blood 25 H, Urine Nitrite Negative, Urine Bilirubin Negative, Urine Urobilinogen Normal, Ur Leukocyte Esterase Negative, Urine RBC 0-5 SEEN, Urine WBC 0-5 SEEN, Ur Squamous Epith Cells 0 SEEN, Urine Bacteria 0 SEEN, Urine Mucus 0 SEEN 07/18/25 20:52: POC Glucose 115 H 07/19/25 05:18: WBC 5.2, RBC 3.16 L, Hgb 8.9 L, Hct 27.5 L, MCV 87.0, MCH 28.2, MCHC 32.4, RDW Std Deviation 42.4, RDW Coeff of Harry 13.3, Plt Count 160, MPV 9.7, Immature Gran % (Auto) 0.600, Neut % (Auto) 53.8, Lymph % (Auto) 33.5, Duchesne % (Auto) 7.5, Eos % (Auto) 4.2, Baso % (Auto) 0.4, Absolute Neuts (auto) 2.8, Absolute Lymphs (auto) 1.75, Nucleated RBC % 0, Sodium 139, Potassium 4.8, C hloride 112 H, Carbon Dioxide 14.4 L, Anion Gap 13, BUN 62 H, Creatinine 4.47 H, Estim Creat Clear Calc 15.22 L, Est GFR (MDRD) Non-Af 14 L, BUN/Creatinine Ratio 13.8, Glucose 88, Hemoglobin A1c 5.9 H, Calcium 8.0 07/19/25 06:32: POC Glucose 95 Radiography Diagnostic Testing: Radiology Impression Brain CT 07/18/25 13:35 IMPRESSION: No intracranial hemorrhage. No mass effect or midline shift. Reading Location: [facility] Chest X-Ray 07/18/25 13:35 IMPRESSION: Left thoracic transvenous pacemaker with atrial and ventricular leads appears unchanged. A mildly calcified aorta is noted. No evidence of cardiomegaly. Lungs appear clear of acute disease, and unchanged. No pleural effusion or pneumothorax is noted. No acute osseous change is seen. No evidence of acute cardiopulmonary disease. Reading Location: [id number] Renal Ultrasound 07/18/25 19:29 IMPRESSION: Nonobstructing left nephrolithiasis. No evidence of hydronephrosis on either side. Heterogeneous prostatic echotexture, chronic finding. Reading Location[facility] Rhythm Strip Rhythm Strip: Sinus Rhythm Rate: 62 Ectopy: None Physical Exam Const alert and no apparent distress Constitutional Narrative: Pleasant. Cooperative. Neuro Sensorium / Orientation: awake and alert Assessment & Plan Assessment/Plan (1) Unable to ambulate: (2) Frequent falls: (3) Chronic kidney disease: PLAN: Plan Debility and weakness due to frequent falls * Patient admitted with complaint of weakness and frailness and frequent falls. * Said he had fallen at least 3 times today. He did not pass out or feel dizzy or lightheaded. His legs just gave way and he fell. * CT of the brain showed no acute intracranial pathology. Chest x-ray also showed no acute cardiopulmonary pathology. * Urinalysis shows no evidence of UTI. * PT OT on board. Fall precautions. Poorly controlled hypertension: * Blood pressure elevated in the 190s systolic. Patient states he is on a whole lot of blood pressure medications and claims compliance with all of them. * On amlodipine 10/d, metoprolol succinate 100/d. Hold losartan for now due to worsening kidney function. * increase hydralazine from daily to TID VENICE on CKD stage IV with hyperkalemia * Admission creatinine of 4.83. Creatinine today down to 4.47. Receptor blockers * Hydrate gently with IV fluids. Get renal ultrasound. * Already on sodium bicarbonate. * Renal ultrasound from May 08, 2023 showed bilateral echogenic kidneys suspicious for chronic medical renal disease Chronic medical conditions * BPH: On Flomax * History of colonic adenoma with high-grade dysplasia: Stable * Anemia:EGD and colonoscopy on June 22, 2023 which showed grade a esophagitis and metaplasia with Schatzki ring and minimal oozing gastric ulcers in the duodenum. Colonoscopy showed 6 polyps with 1 having focal high- grade dysplasia. He also had capsule endoscopy on March 21, 2023 which showed small amount of blood seen in the stomach without identifiable source. Has followed up with Dr. Javier in the past. Baseline hemoglobin in the past was between 7 and 8 though as that is 04/28/2025 hemoglobin was 11.2. * Type 2 diabetes mellitus: On Lantus 20 units daily. Insulin sliding scale. ACT checks ACHS. * History of sick sinus syndrome and complete heart block: S/p pacemaker. Stable * Hyperlipidemia: On statin DVT prophylaxis: Heparin CODE STATUS: Full code Patient states that he has to go home. I expressed to him that he should stay so that have him work with therapy, work on getting his blood pressure improved overall function. Plan to him know that if he goes home he may be at further risk for falls and could injure himself such as breaking a bone or something more serious. He expressed understanding (that he has to go home. I did tell him that if he does change his mind they have canceled the discharge and he can remain semicontinuous rest of the workup.
--- NOTE | 2025-07-19 13:36 | CASEMGMT ---
Social Work As per physician, pt not agreeable to SNF and wants to return home. SW met w/pt in room, spoke w/pt initially about POA, he states his sister is POA, SW asked pt to bring in documents should he be here again, as pt states he is going home today. SW completed SDOH, pt denies needs. Pt explains he has an aide named Tiffany who comes over any time pt needs assist, they do not really follow the set schedule. Pt feels he is doing better and can return home today, Crystal will help him today and will even give pt a ride home today. Pt does not want to stay and is politely insistent on returning home today. SW did let the physician know that pt continues to state he wants to go home today, does not want to stay. MARIANELA called Erum Garber, pt's STONE w/Gauri, and left a message letting her know pt is here and pt will be returning home most likely today, let her know to follow up w/MARIANELA Maier Monday w/any questions. GILDA Bryant
--- NOTE | 2025-07-19 13:58 | DS.PCM_ITS ---
Providers Date of Admission: 07/18/25 Primary Care Physician: Dr. Vera Lucas MD Reason For Visit: HYPERTENSION,HYPERKALEMIA, MECHINAL FALL Diagnosis Discharge Diagnosis (1) Unable to ambulate: Status: Acute Code(s): R26.2 - Difficulty in walking, not elsewhere classified (2) Frequent falls: Status: Acute Code(s): R29.6 - Repeated falls (3) Chronic kidney disease: Status: Chronic Code(s): N18.9 - Chronic kidney disease, unspecified Plan Debility and weakness due to frequent falls * Patient admitted with complaint of weakness and frailness and frequent falls. * Said he had fallen at least 3 times today. He did not pass out or feel dizzy or lightheaded. His legs just gave way and he fell. * CT of the brain showed no acute intracranial pathology. Chest x-ray also showed no acute cardiopulmonary pathology. * Urinalysis shows no evidence of UTI. * PT OT on board. Fall precautions. Poorly controlled hypertension: * Blood pressure elevated in the 190s systolic. Patient states he is on a whole lot of blood pressure medications and claims compliance with all of them. * On amlodipine 10/d, metoprolol succinate 100/d. Hold losartan for now due to worsening kidney function. * increase hydralazine from daily to TID VENICE on CKD stage IV with hyperkalemia * Admission creatinine of 4.83. Creatinine today down to 4.47. Receptor blockers * Hydrate gently with IV fluids. Get renal ultrasound. * Already on sodium bicarbonate. * Renal ultrasound from May 08, 2023 showed bilateral echogenic kidneys suspicious for chronic medical renal disease Chronic medical conditions * BPH: On Flomax * History of colonic adenoma with high-grade dysplasia: Stable * Anemia:EGD and colonoscopy on June 22, 2023 which showed grade a esophagitis and metaplasia with Schatzki ring and minimal oozing gastric ulcers in the duodenum. Colonoscopy showed 6 polyps with 1 having focal high- grade dysplasia. He also had capsule endoscopy on March 21, 2023 which showed small amount of blood seen in the stomach without identifiable source. Has followed up with Dr. Javier in the past. Baseline hemoglobin in the past was between 7 and 8 though as that is 04/28/2025 hemoglobin was 11.2. * Type 2 diabetes mellitus: On Lantus 20 units daily. Insulin sliding scale. ACT checks ACHS. * History of sick sinus syndrome and complete heart block: S/p pacemaker. Stable * Hyperlipidemia: On statin DVT prophylaxis: Heparin CODE STATUS: Full code Patient states that he has to go home. I expressed to him that he should stay so that have him work with therapy, work on getting his blood pressure improved overall function. Plan to him know that if he goes home he may be at further risk for falls and could injure himself such as breaking a bone or something more serious. He expressed understanding (that he has to go home. I did tell him that if he does change his mind they have canceled the discharge and he can remain semicontinuous rest of the workup. Medications at Discharge Home Medications atorvastatin 80 mg tablet 80 mg PO DAILY cholesterol 03/04/19 multivitamin (Daily-Yousuf tablet) 1 tab PO DAILY SUPPLEMENT 03/11/22 clopidogrel 75 mg tablet 75 mg PO DAILY 03/14/23 aspirin 81 mg tablet,delayed release 81 mg PO DAILY 04/07/23 insulin glargine 100 unit/mL (3 mL) subcutaneous pen (Lantus Solostar U-100 Insulin) 20 unit subcut DAILY DIABETES 04/07/23 trazodone 50 mg tablet 50 mg PO QHS 04/07/23 insulin lispro 100 unit/mL subcutaneous pen 2 unit subcut TID 05/25/23 amlodipine 10 mg tablet 10 mg PO DAILY 08/21/23 metoprolol succinate 100 mg tablet,extended release 24 hr 100 mg PO QHS 08/21/23 sodium bicarbonate 650 mg tablet 650 mg PO Q8H PRN 04/28/25 tamsulosin 0.4 mg capsule 0.4 mg PO Q24H 04/28/25 hydralazine 50 mg tablet 100 mg (2 x 50 mg) PO Q8 #90 tabs 07/19/25 Hospital Course Operations None Procedures None Summary of Care Provided Hospital Course: Patient falling at home. Presents with VENICE with creatinine 4.83 and uncontrolled blood pressure with systolic in the 180s to 190s. Remained stable here but insist on going home because yesterday was 7 family issues with his daughter. Encouraged him to stay but also expressed the risk of him going home including falls and fractures or worsening injuries. He expressed understanding but Cystemme going home. So his kidney function did improve with IV fluids. Patient was on losartan but will discontinue that given his worsening kidney function but though it is currently improved. This will need to be followed up as outpatient. Weight / BMI Weight Weight: 67.1 kg Body Mass Index (BMI) 21.8 ABG / Lab / Microbiology Data 07/19/25 05:18 07/19/25 05:18 Laboratory: Laboratory Results - last 24 hr 07/18/25 13:50: Sodium 139, Potassium 5.2 H, Chloride 108, Carbon Dioxide 19.0 L , Anion Gap 12, BUN 72 H, Creatinine 4.83 H, Estim Creat Clear Calc 14.23 L, Est GFR (MDRD) Non-Af 12 L, BUN/Creatinine Ratio 15.0, Glucose 229 H, Calcium 8.9, I liv 57 L, TIBC 182 L, Iron Saturation 31.3, Unsaturated IBC 125 L, Ferritin 574 H 07/18/25 14:05: Urine Color Straw, Urine Clarity Clear, Urine pH 6.0, Ur Specific [place] 1.015, Urine Protein 500 H, Urine Glucose (UA) 250 H, Urine Ketones Negative, Urine Occult Blood 25 H, Urine Nitrite Negative, Urine Bilirubin Negative, Urine Urobilinogen Normal, Ur Leukocyte Esterase Negative, Urine RBC 0-5 SEEN, Urine WBC 0-5 SEEN, Ur Squamous Epith Cells 0 SEEN, Urine Bacteria 0 SEEN, Urine Mucus 0 SEEN 07/18/25 20:52: POC Glucose 115 H 07/19/25 05:18: WBC 5.2, RBC 3.16 L, Hgb 8.9 L, Hct 27.5 L, MCV 87.0, MCH 28.2, MCHC 32.4, RDW Std Deviation 42.4, RDW Coeff of Harry 13.3, Plt Count 160, MPV 9.7, Immature Gran % (Auto) 0.600, Neut % (Auto) 53.8, Lymph % (Auto) 33.5, [place] % (Auto) 7.5, Eos % (Auto) 4.2, Baso % (Auto) 0.4, Absolute Neuts (auto) 2.8, Absolute Lymphs (auto) 1.75, Nucleated RBC % 0, Sodium 139, Potassium 4.8, C hloride 112 H, Carbon Dioxide 14.4 L, Anion Gap 13, BUN 62 H, Creatinine 4.47 H, Estim Creat Clear Calc 15.22 L, Est GFR (MDRD) Non-Af 14 L, BUN/Creatinine Ratio 13.8, Glucose 88, Hemoglobin A1c 5.9 H, Calcium 8.0 07/19/25 06:32: POC Glucose 95 07/19/25 12:06: POC Glucose 89 Radiography Diagnostic Testing: Radiology Impression Brain CT 07/18/25 13:35 IMPRESSION: No intracranial hemorrhage. No mass effect or midline shift. [facility] Chest X-Ray 07/18/25 13:35 IMPRESSION: Left thoracic transvenous pacemaker with atrial and ventricular leads appears unchanged. A mildly calcified aorta is noted. No evidence of cardiomegaly. Lungs appear clear of acute disease, and unchanged. No pleural effusion or pneumothorax is noted. No acute osseous change is seen. No evidence of acute cardiopulmonary disease. Reading Location: [address] Renal Ultrasound 07/18/25 19:29 IMPRESSION: Nonobstructing left nephrolithiasis. No evidence of hydronephrosis on either side. Heterogeneous prostatic echotexture, chronic finding. Reading Location: [place] [id number] D/C Instructions DC O2, CPAP, BIPAP Needs Home O2 Discharge instructions: No Meaningful Use Info Meaningful Use Meaningful Use Diagnoses (Choose all that apply): None applicable Discharge Plan Admission Admit Date/Time: 07/18/25 16:06 Primary Reason for Your Visit: Falls. Attending Provider: Juice Milan Primary Care Provider: Vera Lucas Consulting Providers: Emma Brewster Instructions Additional Instructions / Restrictions: Your blood pressure has been high so am increasing her hydralazine. Your kidney function did get worse so we are discontinuing losartan. Please follow-up with primary care doctor next week for blood pressure check as well as follow-up lab work in regards to monitor your kidney function. If you do have further worsening weakness or further falls, notify your physician or return to the emergency room. Discharge Orders/Prescriptions Prescriptions: New hydralazine 50 mg Tablet 100 mg PO Q8 Qty: 90 0RF Continued clopidogrel 75 mg tablet 75 mg PO DAILY atorvastatin 80 MG tablet 80 mg PO DAILY multivitamin [Daily-Yousuf] Tablet 1 tab PO DAILY insulin glargine [Lantus Solostar U-100 Insulin] 100 unit/mL (3 mL) insulin pen 20 unit SUBCUT DAILY Rx Instructions: am aspirin 81 mg tablet,delayed release (DR/EC) 81 mg PO DAILY trazodone 50 mg tablet 50 mg PO QHS Rx Instructions: May take 50-100 mg nightly. insulin lispro 100 unit/mL insulin pen 2 unit SUBCUT TID metoprolol succinate 100 mg tablet extended release 24 hr 100 mg PO QHS amlodipine 10 mg tablet 10 mg PO DAILY tamsulosin 0.4 mg capsule 0.4 mg PO Q24H sodium bicarbonate 650 mg tablet 650 mg PO Q8H PRN Discontinued hydralazine 50 mg Tablet 100 mg PO DAILY losartan 25 mg tablet 25 mg PO DAILY Referrals / Follow Up: Vera Lucas MD [Primary Care Provider, Internal Medicine] - Within 2 Weeks Disposition Disposition (needs filled in before D/C Order can be placed): Home, Self Care Charges/Coding Visit Charges Inpatient E&M: 53721 Disch Hosp
== END 2025-07-19 14:34 | disposition home or self-care (01) ==
LOC: ED 15:37 → PCU 16:14
PROVIDERS: Admitting Provider Student in an Organized Health Care Education/Training Program; Emergency Provider Emergency Medicine; PCP Internal Medicine
DX: R53.1 Weakness (principal); N18.4 Chronic kidney disease, stage 4 (severe); E11.22 Type 2 diabetes mellitus with diabetic chronic kidney disease; Z79.4 Long term (current) use of insulin; N17.9 Acute kidney failure, unspecified; R53.81 Other malaise; Z79.82 Long term (current) use of aspirin; Z86.73 Personal history of transient ischemic attack (TIA), and cerebral infarction without residual deficits; Z86.718 Personal history of other venous thrombosis and embolism; E78.00 Pure hypercholesterolemia, unspecified; R11.10 Vomiting, unspecified; Z79.02 Long term (current) use of antithrombotics/antiplatelets; E87.5 Hyperkalemia; I12.9 Hypertensive chronic kidney disease with stage 1 through stage 4 chronic kidney disease, or unspecified chronic kidney disease; Z87.891 Personal history of nicotine dependence; R29.6 Repeated falls; Z79.899 Other long term (current) drug therapy; Z95.0 Presence of cardiac pacemaker; N40.0 Benign prostatic hyperplasia without lower urinary tract symptoms; D64.9 Anemia, unspecified
CPT/HCPCS: 36415; 70450; 71046; 76770; 80048; 81001; 82728; 82962; 83036; 83540; 83550; 85025; 93005; 96360; 96361; 96372; 97802; 99221; 99285; A4216; G0378